=== PATIENT | male | born 1945 | race Hispanic/Latino ===

== ENCOUNTER 2016-09-19 07:43 | Day surgery (SDC) | payer MEDICARE ==
[2016-09-19 08:52] LABS: Eosinophils % (Auto) 1.9 % (0.0-4.3); Hematocrit 32.6 % (35.5-45.6); Hemoglobin 10.5 gm/dl (11.8-15.2); Mean Corpuscular HGB Conc 32 % (32-34); Mean Corpuscular Volume 80 fl (84-94); Platelet Count 269 K/mm3 (140-440); Red Cell Distribution Width 16.1 % (13.2-15.2); White Blood Count 9.1 K/mm3 (4.5-11.0)
[2016-09-19 08:59] LABS: Mean Corpuscular Hemoglobin 26 pg (28-32)
[2016-09-19] MEDS ORDERED: ECOTRIN PO ONE (09:00)
[2016-09-19] MEDS ORDERED: PLAVIX PO ONE (09:00)
[2016-09-19] MEDS ORDERED: NACL 0.9% 500 ML 500 ML IV SCH (09:00)
[2016-09-19 09:01] LABS: INR 1.04 (0.87-1.13)
[2016-09-19 09:11] LABS: BUN/Creatinine Ratio 11.33; Calcium 9.1 mg/dL (8.4-10.2); Chloride 100.9 mmol/L (98-107); Potassium 4.2 mmol/L (3.6-5.0)
[2016-09-19] MEDS ORDERED: HEPARIN 10,000 UNITS/10 ML ONE (09:15)
[2016-09-19] MEDS ORDERED: HEPARIN/NS 5000 UNIT/500ML(CATH LAB) 1,000 ML IR ONE (09:15)
[2016-09-19] MEDS ORDERED: XYLOCAINE 2% INFILTRATI ONE ×2 (09:16→10:17)
[2016-09-19] MEDS ORDERED: VERSED ONE (09:16)
[2016-09-19] MEDS ORDERED: HEPARIN/NS 5000 UNIT/500ML(CATH LAB) 500 ML IR ONE ×2 (09:21→10:49)
[2016-09-19] MEDS ORDERED: NITROGLYCERIN SYRINGE 0 ML ONE (09:26)
[2016-09-19] MEDS: SUBLIMAZE ONE ×2 (10:13→10:18)
--- NOTE | 2016-09-19 13:20 | Cardiac Catherization Report ---
CARDIAC CATHETERIZATION REASON FOR PROCEDURE: Coronary artery disease, progressive shortness of breath. PROCEDURE: The patient was prepped and draped in a sterile fashion after informed consent. The right femoral artery and vein were both entered using the Seldinger technique. A 6-Amharic sheath was placed in the artery and an 8 Amharic sheath in the vein. Windsor-Chase catheterization was then performed, with the Windsor-Chase catheter and advanced to the pulmonary artery position. A pigtail catheter was advanced into the left ventricle. Cardiac output was measured using the thermodilution method. Pressures were obtained in the right heart including the pulmonary artery wedge, pulmonary artery pressures, right ventricular pressures, and right atrial pressures. The Windsor-Chase catheter was then withdrawn. Left ventricular end-diastolic pressure was measured, following which left ventricular angiography was performed. Following left ventricular angiography, the pigtail catheter was withdrawn across the aortic valve and transaortic pressures measured. The pigtail catheter was then exchanged for a #4 left Glenys catheter, which was used for left coronary angiography. Following this, a right Judkin's was used for right coronary angiography. The catheters were then removed, sheath removed, and hemostasis achieved with using manual compression over the arterial site and the venous site. The procedure was well tolerated by the patient and there were no complications. FINDINGS: HEMODYNAMICS: The mean right atrial pressure was 15. Right ventricular pressure was 45/18-20. Pulmonary artery pressure was 45/25. The mean pulmonary artery wedge pressure was 20. Left ventricle end diastolic pressure was 25-30. Ascending aortic pressure was 163/69. There was no significant pressure gradient on pullback across the aortic valve. Cardiac output was 6.03 liters per minute. LEFT VENTRICULAR ANGIOGRAPHY: The left ventricle was mildly dilated. There was mild to moderate left ventricular systolic dysfunction with mild diffuse hypokinesis. The estimated fraction was 40%. CORONARY ANGIOGRAPHY: There was diffuse moderate coronary calcification. The left main coronary artery contained mild irregularities. The left anterior descending artery contained mild disease of its proximal and mid segments, most notably in the LAD system was the chronic total occlusion of a medium sized side branch of the mid diagonal branch. This side branch was then reconstituted in its distal segment by left to left collaterals. The circumflex artery was notable for a stent in its proximal segment. The stented segment was patent. Following this, there was a mid obtuse marginal branch, which was also patent with mild irregularities. Following the mid obtuse marginal, the AV groove circumflex was completely occluded with thin another prior stent. This was also a chronic total occlusion. There was reconstitution of a small terminal obtuse marginal via left to left collaterals. This chronic occlusion is unchanged from the patient's previous cardiac catheterization of 04/2016. The right coronary artery was dominant. This vessel contained diffuse mild atherosclerosis of its proximal segment. The mid segment of the right coronary artery was notable for a stent, which was deployed in 04/2016, remains patent with minimal in-stent restenosis. More distally, across the acute margin was another stent that was deployed in 04/2016. This second stent around the acute margin was widely patent with no significant restenosis. The distal right coronary artery was notable for chronic total occlusion of the terminal medium sized posterolateral branch. This was a chronic total occlusion noted on the previous angiogram. This posterolateral branch was reconstituted by right to right collaterals. CONCLUSION: 1. Moderate increase in right and left heart filling pressures, mild pulmonary hypertension. 2. Severe 3-vessel coronary artery disease. 3. Patent prior proximal circumflex artery stent. 4. Patent mid and distal right coronary artery stents. 5. Severe small vessel disease, with chronic total occlusion of the sub-branch of the mid diagonal branch, the distal circumflex terminal obtuse marginal branch, and terminal posterior left ventricular branch of the distal right coronary artery. These are not changed from prior cardiac catheterization procedure. 6. Mild to moderate left ventricular systolic dysfunction, ejection fraction 40%. RECOMMENDATION: 1. Aggressive risk factor modification. 2. Medical therapy for small branch vessel occlusions as listed above. [facility]# [id number] AYANA/MADIHA
--- NOTE | 2016-09-19 13:23 | Discharge Summary ---
Short Stay Discharge Plan Activity: advance as tolerated Weight Bearing Status: Partial Weight Bearing Diet: low fat, low cholesterol, low salt Wound: keep clean and dry Special Instructions: smoking cessation (strongly recommended), no heavy lifting (3 days), hold Metformin (48 hours only) Follow up with: MACIEJ MURRELL MD [Primary Care Provider] - 7 Days LIUDMILA BOLTON MD [Staff Physician] - 7 Days
[2016-09-19] MEDS ORDERED: NACL 0.9% 1000 ML 1,000 ML IV SCH (14:00)
[2016-09-19 15:19] VITALS: BP 151/75
== END 2016-09-19 16:01 | disposition home or self-care (01) ==
LOC: OPU 07:43
PROVIDERS: ATTEND Internal Medicine Cardiovascular Disease
DX: I25.10 Atherosclerotic heart disease of native coronary artery without angina pectoris (principal); I25.82 Chronic total occlusion of coronary artery; I10 Essential (primary) hypertension; M19.90 Unspecified osteoarthritis, unspecified site; J44.9 Chronic obstructive pulmonary disease, unspecified; E11.9 Type 2 diabetes mellitus without complications; F17.210 Nicotine dependence, cigarettes, uncomplicated; Z72.89 Other problems related to lifestyle; Z79.899 Other long term (current) drug therapy; Z79.4 Long term (current) use of insulin; Z79.01 Long term (current) use of anticoagulants; Z82.49 Family history of ischemic heart disease and other diseases of the circulatory system
CPT/HCPCS: 36415; 80048; 85025; 85610; 85730; 93005; 93010; 93460; C1894; J1644; J2250; J3010; J7040; Q9967

== ENCOUNTER 2017-04-04 14:44 | Emergency (ER) | payer MEDICARE ==
[2017-04-04 16:15] VITALS: BP 123/59
[2017-04-04 16:53] LABS: Bacteria,Urine 1+ /HPF (Negative); Bilirubin,Urine NEG (Negative); Blood,Urine NEG (Negative); Ketones,Urine NEG (Negative); Leukocyte Esterase,Urine NEG (Negative); Nitrite,Urine NEG (Negative); Protein,Urine <15 mg/dL mg/dL (Negative); Urobilinogen,Urine < 2.0 mg/dL (<2.0)
--- NOTE | 2017-04-04 17:08 | Emergency Department Report ---
ED Dizziness [facility] - General Chief Complaint: Dizziness Stated Complaint: SYNCOPE Time Seen by Provider: 04/04/17 16:50 Source: patient, EMS Mode of arrival: Ambulatory Limitations: No Limitations - History of Present Illness Initial Comments: Patient brought in by EMS, was at [facility], and he reports that the cashier checker thought he was stumbling, called EMS, he says he was not. He was here Friday and was diagnosed with a "bleed", and he was "tired of waiting" and got up and went home. He says that he will walk out again if he has to again. MD Complaint: dizziness Onset/Timin -: hour(s) Timing: gradual onset Description: off-balance History of Same: Yes History of Trauma: No Severity: mild Improves With: nothing Worsens With: movement, other (standing) Associated Symptoms: confusion, cough (little bit), shortness of breath, weakness. denies: chest pain, fever/chills, loss of appetite, malaise, rash, syncope - Related Data Home Medications Medication Instructions Recorded Confirmed Last Taken Insulin Regular, Human [HumuLIN R] 10 units SQ TIDAC #0 05/06/16 03/28/1709/16 7 units Metoprolol Succinate 25 mg PO DAILY 05/06/16 03/28/17 09/18/16 25mg Gabapentin 300 mg PO BID 09/19/16 03/28/17 09/18/16 300mg Atorvastatin Calcium [Lipitor] 10 mg PO QDAY 03/28/17 03/28/17 Unknown Glimepiride [Amaryl] 4 mg PO QAM 03/28/17 03/28/17 Unknown Metformin HCl [Metformin HCl ER] 500 mg PO BIDWM 03/28/17 03/28/17 Unknown Metoprolol Xl [Metoprolol 25 mg PO QDAY 03/28/17 03/28/17 Unknown SUCCINATE ER TAB] Previous Rx's Medication Instructions Recorded Last Taken Type amLODIPine [Norvasc] 10 mg PO QDAY #30 tablet 05/07/16 09/18/16 Rx 10mg Ondansetron [Zofran Odt] 4 mg PO Q8HR #20 tab.rapdis 04/04/17 Unknown Rx Allergies Allergy/AdvReac Type Severity Reaction Status Date / Time Sulfa (Sulfonamide Allergy Rash Verified 05/10/13 17:10 Antibiotics) ED Review of Systems ROS: Stated complaint: SYNCOPE Other details as noted in HPI Comment: All other systems reviewed and negative Constitutional: see HPI, weakness Eyes: as per HPI. denies: eye discharge, vision change ENT: denies: ear pain, throat pain Respiratory: cough, shortness of breath (per his usual), SOB with exertion. denies: wheezing Cardiovascular: denies: chest pain, palpitations Endocrine: no symptoms reported Gastrointestinal: nausea, vomiting (yesterday), diarrhea (has Crohn's disease), other (had blood in stool yesterday). denies: abdominal pain Genitourinary: denies: urgency, dysuria Musculoskeletal: denies: back pain, joint swelling, arthralgia Skin: denies: rash, lesions Neurological: denies: headache, weakness, paresthesias Psychiatric: denies: anxiety, depression Hematological/Lymphatic: denies: easy bleeding, easy bruising ED Past Medical Hx - Past Medical History Previous Medical History?: Yes Hx Hypertension: Yes Hx CVA: Yes Hx Heart Attack/AMI: Yes (x 5) Hx Congestive Heart Failure: No Hx Diabetes: Yes Hx Deep Vein Thrombosis: No Hx Pulmonary Embolism: No Hx Arthritis: Yes Hx Seizures: No Hx Asthma: No Hx COPD: No Hx Tuberculosis: No Hx Dementia: No Hx HIV: No Additional medical history: crohns, - Surgical History Hx Coronary Stent: Yes (x 6) Hx Pacemaker: No Hx Internal Defibrillator: No Additional Surgical History: angioplasty x 6 - Social History Smoking Status: Current Every Day Smoker Substance Use Type: Alcohol - Medications Home Medications: Home Medications Medication Instructions Recorded Confirmed Last Taken Type Insulin Regular, Human [HumuLIN R] 10 units SQ TIDAC #0 05/06/16 03/28/1709/16 History 7 units Metoprolol Succinate 25 mg PO DAILY 05/06/16 03/28/17 09/18/16 History 25mg amLODIPine [Norvasc] 10 mg PO QDAY #30 tablet 05/07/16 03/28/17 09/18/16 Rx 10mg Gabapentin 300 mg PO BID 09/19/16 03/28/17 09/18/16 History 300mg Atorvastatin Calcium [Lipitor] 10 mg PO QDAY 03/28/17 03/28/17 Unknown History Glimepiride [Amaryl] 4 mg PO QAM 03/28/17 03/28/17 Unknown History Metformin HCl [Metformin HCl ER] 500 mg PO BIDWM 03/28/17 03/28/17 Unknown History Metoprolol Xl [Metoprolol 25 mg PO QDAY 03/28/17 03/28/17 Unknown History SUCCINATE ER TAB] Ondansetron [Zofran Odt] 4 mg PO Q8HR #20 tab.rapdis 04/04/17 Unknown Rx ED Physical Exam - General Limitations: No Limitations General appearance: alert, in no apparent distress - Head Head exam: Present: atraumatic, normocephalic - Eye Eye exam: Present: normal appearance, PERRL, EOMI - ENT ENT exam: Present: mucous membranes moist - Neck Neck exam: Present: normal inspection - Respiratory Respiratory exam: Present: normal lung sounds bilaterally. Absent: respiratory distress - Cardiovascular Cardiovascular Exam: Present: regular rate, normal rhythm. Absent: systolic murmur, diastolic murmur, rubs, gallop - GI/Abdominal GI/Abdominal exam: Present: soft, tenderness (mild), normal bowel sounds - Rectal Rectal exam: Present: deferred - Extremities Exam Extremities exam: Present: normal inspection - Back Exam Back exam: Present: normal inspection - Neurological Exam Neurological exam: Present: alert, oriented X3 - Psychiatric Psychiatric exam: Present: normal affect, normal mood - Skin Skin exam: Present: warm, dry, intact, normal color. Absent: rash ED Course Vital Signs 04/04/17 16:12 Temperature 97.7 F Pulse Rate 80 Respiratory 18 Rate Blood Pressure 123/59 O2 Sat by Pulse 100 Oximetry - Reevaluation(s) Reevaluation #1: 04/04/17 18:20 Patient refuses to be admitted. He did this a few days ago as well. He would like to go home, and I told him that he needs to follow up with his doctor. He says he probably won't do that. I advised him that if he continues to feel dizzy than he can come back and we would be happy to admit him to the hospital. His hemoccult was negative. Will give fluids and discharge home. Also will give some Zofran. ED Medical Decision Making - Lab Data Result diagrams: 04/04/17 16:33 04/04/17 16:33 - EKG Data -: EKG Interpreted by Me EKG shows normal: sinus rhythm, axis (Left axis), intervals, QRS complexes, ST- T waves Rate: bradycardia - EKG Data When compared to previous EKG there are: no significant change Interpretation: no acute changes - Medical Decision Making I reviewed the results with the patient. Explained to him that it is essential that he see his PMD since he refuses to be admitted. I explained that he could have an occult GI bleed even though the testing today was negative and his hemoglobin was unchanged from previous. Critical Care Time: No Critical care attestation.: If time is entered above; I have spent that time in minutes in the direct care of this critically ill patient, excluding procedure time. ED Disposition Clinical Impression: Dizziness Anemia Qualifiers: Anemia type: other cause Other causes of anemia: other cause, not classified Qualified Code(s): D64.89 - Other specified anemias Disposition: DC-01 TO HOME OR SELFCARE Is pt being admited?: No Does the pt Need Aspirin: No Condition: Stable Instructions: Anemia (ED) Additional Instructions: Rest, fluids, follow up with your doctor, return as needed, watch for worsening , new symptoms. Call 911 if you think you're having a life threatening emergency. Prescriptions: Ondansetron [Zofran Odt] 4 mg PO Q8HR #20 tab.[email or web address] Referrals: PRIMARY CARE, [Primary Care Provider] - 3-5 Days
[2017-04-04 17:10] LABS: Hemoglobin 9.7 gm/dl (11.8-15.2); Mean Corpuscular HGB Conc 33 % (32-34); Mean Corpuscular Hemoglobin 28 pg (28-32); Mean Corpuscular Volume 83 fl (84-94); Platelet Count 250 K/mm3 (140-440); Red Blood Count 3.49 M/mm3 (3.65-5.03); Red Cell Distribution Width 17.6 % (13.2-15.2); White Blood Count 6.9 K/mm3 (4.5-11.0)
[2017-04-04 17:18] LABS: Calcium 8.5 mg/dL (8.4-10.2)
[2017-04-04 17:19] LABS: Chloride 100.1 mmol/L (98-107); Potassium 4.9 mmol/L (3.6-5.0)
[2017-04-04] MEDS ORDERED: NACL 0.9% 1000 ML 1,000 ML IV ONE (18:08)
== END 2017-04-04 18:54 | disposition home or self-care (01) ==
LOC: ED 14:44
DX: D64.89 Other specified anemias (principal); R42 Dizziness and giddiness; I10 Essential (primary) hypertension; I25.2 Old myocardial infarction; E11.9 Type 2 diabetes mellitus without complications; F17.200 Nicotine dependence, unspecified, uncomplicated
CPT/HCPCS: 36415; 80048; 81001; 85027; 87086; 93005; 93010; 99284; J7030

== ENCOUNTER 2017-04-20 16:53 | Emergency (ER) | payer OTHER, MEDICARE ==
[2017-04-20 17:43] VITALS: BP 158/128
== END 2017-04-20 21:00 | disposition left against medical advice (07) ==
LOC: ED 16:53
DX: M79.641 Pain in right hand (principal); Z53.21 Procedure and treatment not carried out due to patient leaving prior to being seen by health care provider

== ENCOUNTER 2017-10-06 17:10 | Emergency (ER) | payer MEDICARE ==
[2017-10-06 17:27] VITALS: BP 168/86
[2017-10-06] MEDS ORDERED: ASPIRIN PO ONE (17:27)
[2017-10-06 17:49] LABS: Basophils # (Auto) 0.1 K/mm3 (0.0-0.1); Basophils % (Auto) 1.4 % (0.0-1.8); Eosinophils # (Auto) 0.1 K/mm3 (0.0-0.4); Eosinophils % (Auto) 1.2 % (0.0-4.3); Hemoglobin 11.4 gm/dl (11.8-15.2); Lymphocytes # (Auto) 1.4 K/mm3 (1.2-5.4); Lymphocytes % (Auto) 17.7 % (13.4-35.0); Mean Corpuscular HGB Conc 33 % (32-34); Mean Corpuscular Volume 79 fl (84-94); Monocytes # (Auto) 0.5 K/mm3 (0.0-0.8); Platelet Count 273 K/mm3 (140-440); Red Blood Count 4.45 M/mm3 (3.65-5.03); Red Cell Distribution Width 17.5 % (13.2-15.2)
[2017-10-06 17:51] LABS: Mean Corpuscular Hemoglobin 26 pg (28-32)
[2017-10-06 18:11] LABS: BUN/Creatinine Ratio 7; Blood Urea Nitrogen 8 mg/dL (9-20); Calcium 8.6 mg/dL (8.4-10.2); Hemolysis Index 37
== END 2017-10-06 17:31 | disposition left against medical advice (07) ==
LOC: ED 17:10
DX: R06.02 Shortness of breath (principal); Z53.21 Procedure and treatment not carried out due to patient leaving prior to being seen by health care provider
CPT/HCPCS: 36415; 80048; 83880; 84484; 85025; 93005; 93010

== ENCOUNTER 2017-12-19 16:25 | Inpatient (IN) | payer MEDICARE ==
[2017-12-19] MEDS ORDERED: ZOFRAN IV ONE (17:37)
[2017-12-19] MEDS ORDERED: MORPHINE IV ONE (17:37)
[2017-12-19] MEDS ORDERED: NITRO-BID 2% TP ONE (17:37)
[2017-12-19 17:59] LABS: BUN/Creatinine Ratio 9; Blood Urea Nitrogen 10 mg/dL (9-20); Calcium 8.5 mg/dL (8.4-10.2); Hemolysis Index 3
[2017-12-19 18:03] LABS: Basophils # (Auto) 0.1 K/mm3 (0.0-0.1); Basophils % (Auto) 0.6 % (0.0-1.8); Eosinophils # (Auto) 0.1 K/mm3 (0.0-0.4); Eosinophils % (Auto) 1.2 % (0.0-4.3); Hematocrit 32.8 % (35.5-45.6); Hemoglobin 10.8 gm/dl (11.8-15.2); Lymphocytes # (Auto) 0.8 K/mm3 (1.2-5.4); Lymphocytes % (Auto) 8.9 % (13.4-35.0); Mean Corpuscular HGB Conc 33 % (32-34); Mean Corpuscular Hemoglobin 26 pg (28-32); Mean Corpuscular Volume 80 fl (84-94); Monocytes # (Auto) 0.5 K/mm3 (0.0-0.8); Monocytes % (Auto) 5.7 % (0.0-7.3); Platelet Count 209 K/mm3 (140-440); Red Blood Count 4.13 M/mm3 (3.65-5.03); Red Cell Distribution Width 18.7 % (13.2-15.2)
[2017-12-19 18:10] LABS: INR 0.97 (0.87-1.13)
[2017-12-19 18:16] LABS: Alanine Aminotransferase 11 units/L (7-56); Albumin 3.4 g/dL (3.9-5)
[2017-12-19 18:19] LABS: Bilirubin,Direct < 0.2 mg/dL (0-0.2)
--- NOTE | 2017-12-19 18:33 | XRay Report ---
FINAL REPORT EXAM: XR CHEST 1V AP HISTORY: cp TECHNIQUE: Chest single AP PRIORS: None. FINDINGS: There is patchy opacity within the right lower lobe distribution. Cardiac and mediastinal contours are unremarkable. Pulmonary vasculature is within normal limits. No pleural effusion identified. IMPRESSION: Right lower lobe infiltrate suspicious for pneumonia
[2017-12-19] MEDS ORDERED: K-DUR PO ONE (19:16)
[2017-12-19] MEDS ORDERED: LEVAQUIN 750MG/150ML 750 MG/150 ML BAG IV ONE (19:19)
[2017-12-19] MEDS ORDERED: LASIX IV ONE (19:20)
--- NOTE | 2017-12-19 19:21 | Emergency Department Report ---
ED General Adult HPI - General Chief complaint: Chest Pain Stated complaint: POSS STEMI Time Seen by Provider: 12/19/17 17:21 Source: patient, EMS Mode of arrival: Stretcher Limitations: Other - History of Present Illness Severity scale (0 -10): 0 - Related Data Home Medications Medication Instructions Recorded Confirmed Last Taken Insulin Regular, Human [HumuLIN R] 10 units SQ TIDAC #0 05/06/16 03/28/17 7 units Metoprolol Succinate 25 mg PO DAILY 05/06/16 03/28/17 09/18/16 25mg Gabapentin 300 mg PO BID 09/19/16 03/28/17 09/18/16 300mg Atorvastatin Calcium [Lipitor] 10 mg PO QDAY 03/28/17 03/28/17 Unknown Glimepiride [Amaryl] 4 mg PO QAM 03/28/17 03/28/17 Unknown Metformin HCl [Metformin HCl ER] 500 mg PO BIDWM 03/28/17 03/28/17 Unknown Metoprolol Xl [Metoprolol 25 mg PO QDAY 03/28/17 03/28/17 Unknown SUCCINATE ER TAB] Previous Rx's Medication Instructions Recorded Last Taken Type amLODIPine [Norvasc] 10 mg PO QDAY #30 tablet 05/07/16 09/18/16 Rx 10mg Ondansetron [Zofran Odt] 4 mg PO Q8HR #20 tab.rapdis 04/04/17 Unknown Rx Allergies Allergy/AdvReac Type Severity Reaction Status Date / Time Sulfa (Sulfonamide Allergy Rash Verified 05/10/13 17:10 Antibiotics) ED Review of Systems ROS: Stated complaint: POSS STEMI Other details as noted in HPI ED Past Medical Hx - Past Medical History Previous Medical History?: Yes Hx Hypertension: Yes Hx CVA: Yes (x2 bilateral weakness,walks with walker) Hx Heart Attack/AMI: Yes (x 5) Hx Congestive Heart Failure: No Hx Diabetes: Yes Hx Deep Vein Thrombosis: No Hx Pulmonary Embolism: No Hx Arthritis: Yes Hx Seizures: No Hx Asthma: No Hx COPD: No Hx Tuberculosis: No Hx Dementia: No Hx HIV: No Additional medical history: crohns, - Surgical History Hx Coronary Stent: Yes (x 6) Hx Pacemaker: No Hx Internal Defibrillator: No Additional Surgical History: angioplasty x 6 - Social History Smoking Status: Current Every Day Smoker Substance Use Type: None - Medications Home Medications: Home Medications Medication Instructions Recorded Confirmed Last Taken Type Insulin Regular, Human [HumuLIN R] 10 units SQ TIDAC #0 05/06/16 03/28/17 History 7 units Metoprolol Succinate 25 mg PO DAILY 05/06/16 03/28/17 09/18/16 History 25mg amLODIPine [Norvasc] 10 mg PO QDAY #30 tablet 05/07/16 03/28/17 09/18/16 Rx 10mg Gabapentin 300 mg PO BID 09/19/16 03/28/17 09/18/16 History 300mg Atorvastatin Calcium [Lipitor] 10 mg PO QDAY 03/28/17 03/28/17 Unknown History Glimepiride [Amaryl] 4 mg PO QAM 03/28/17 03/28/17 Unknown History Metformin HCl [Metformin HCl ER] 500 mg PO BIDWM 03/28/17 03/28/17 Unknown History Metoprolol Xl [Metoprolol 25 mg PO QDAY 03/28/17 03/28/17 Unknown History SUCCINATE ER TAB] Ondansetron [Zofran Odt] 4 mg PO Q8HR #20 tab.rapdis 04/04/17 Unknown Rx ED Physical Exam - General Limitations: Other ED Course Vital Signs 12/19/17 16:36 Temperature 97.5 F L Pulse Rate 105 H Respiratory 35 H Rate Blood Pressure 151/95 O2 Sat by Pulse 95 Oximetry ED Medical Decision Making - Lab Data Result diagrams: 12/19/17 17:35 12/19/17 17:35 Critical care attestation.: If time is entered above; I have spent that time in minutes in the direct care of this critically ill patient, excluding procedure time. ED Disposition Condition: Stable Referrals: PRIMARY CARE, [Primary Care Provider] - 3-5 Days
--- NOTE | 2017-12-19 19:28 | Emergency Department Report ---
ED Chest Pain HPI - General Chief Complaint: Chest Pain Stated Complaint: POSS STEMI Time Seen by Provider: 12/19/17 17:21 Source: patient, EMS Mode of arrival: Stretcher Limitations: Other - History of Present Illness Initial Comments: This is a 72 year old man who signed out from [facility] 2 days ago. He states that he was told he was having a myocardial infarction but nonetheless left AMA. He called the ambulance for recurrent chest pain and shortness of breath. The time of arrival he stated his chest pain had improved. His difficulty in breathing had improved as well. He had been given nitroglycerin and aspirin prior to arrival but refused other medications. The patient's last cardiac catheterization was on 09/21/2016. He did not have a cardiac cath at [facility]. Dr. Cohn recommended medical management at that time. The patient had multiple patent stents and chronic occlusions. Review of the patient's medical records does indicate that he has a chronic right bundle branch block. MD Complaint: chest pain -: Gradual Onset: during rest Pain Location: substernal Pain Radiation: none Severity: moderate Severity scale (0 -10): 0 Quality: tightness Consistency: intermittent, now resolved Improves With: nitroglycerin (appears to have improved with nitroglycerin) Context: other ("recent heart attack") re: dyspnea. denies: diaphoresis (sweating) Other Symptoms: denies: cough, fever, syncope Treatments Prior to Arrival: none - Related Data Home Medications Medication Instructions Recorded Confirmed Last Taken Insulin Regular, Human [HumuLIN R] 10 units SQ TIDAC #0 05/06/16 03/28/17 7 units Metoprolol Succinate 25 mg PO DAILY 05/06/16 03/28/17 09/18/16 25mg Gabapentin 300 mg PO BID 09/19/16 03/28/17 09/18/16 300mg Atorvastatin Calcium [Lipitor] 10 mg PO QDAY 03/28/17 03/28/17 Unknown Glimepiride [Amaryl] 4 mg PO QAM 03/28/17 03/28/17 Unknown Metformin HCl [Metformin HCl ER] 500 mg PO BIDWM 03/28/17 03/28/17 Unknown Metoprolol Xl [Metoprolol 25 mg PO QDAY 03/28/17 03/28/17 Unknown SUCCINATE ER TAB] Previous Rx's Medication Instructions Recorded Last Taken Type amLODIPine [Norvasc] 10 mg PO QDAY #30 tablet 05/07/16 09/18/16 Rx 10mg Ondansetron [Zofran Odt] 4 mg PO Q8HR #20 tab.rapdis 04/04/17 Unknown Rx Allergies Allergy/AdvReac Type Severity Reaction Status Date / Time Sulfa (Sulfonamide Allergy Rash Verified 05/10/13 17:10 Antibiotics) Heart Score - HEART Score History: Highly suspicious EKG: Non-specific Age: > 65 Risk factors: > 3 risk factors or hx of atherosclerotic disease Troponin: < normal limit HEART Score: 7 - Critical Actions Critical Actions: 4-6 pts:12-16.6% risk of adverse cardiac event. Should be admitted ED Review of Systems ROS: Stated complaint: POSS STEMI Other details as noted in HPI Constitutional: denies: chills, fever Eyes: denies: eye pain, eye discharge, vision change ENT: denies: ear pain, throat pain Respiratory: shortness of breath. denies: cough, wheezing Cardiovascular: chest pain. denies: palpitations Endocrine: no symptoms reported Gastrointestinal: denies: abdominal pain, nausea, diarrhea Genitourinary: denies: urgency, dysuria Musculoskeletal: denies: back pain, joint swelling, arthralgia Skin: denies: rash, lesions Neurological: denies: headache, weakness, paresthesias Psychiatric: denies: anxiety, depression Hematological/Lymphatic: denies: easy bleeding, easy bruising ED Past Medical Hx - Past Medical History Previous Medical History?: Yes Hx Hypertension: Yes Hx CVA: Yes (x2 bilateral weakness,walks with walker) Hx Heart Attack/AMI: Yes (x 5) Hx Congestive Heart Failure: No Hx Diabetes: Yes Hx Deep Vein Thrombosis: No Hx Pulmonary Embolism: No Hx Arthritis: Yes Hx Seizures: No Hx Asthma: No Hx COPD: No Hx Tuberculosis: No Hx Dementia: No Hx HIV: No Additional medical history: crohns, - Surgical History Hx Coronary Stent: Yes (x 6) Hx Pacemaker: No Hx Internal Defibrillator: No Additional Surgical History: angioplasty x 6 - Social History Smoking Status: Current Every Day Smoker Substance Use Type: None - Medications Home Medications: Home Medications Medication Instructions Recorded Confirmed Last Taken Type Insulin Regular, Human [HumuLIN R] 10 units SQ TIDAC #0 05/06/16 03/28/17 History 7 units Metoprolol Succinate 25 mg PO DAILY 05/06/16 03/28/17 09/18/16 History 25mg amLODIPine [Norvasc] 10 mg PO QDAY #30 tablet 05/07/16 03/28/17 09/18/16 Rx 10mg Gabapentin 300 mg PO BID 09/19/16 03/28/17 09/18/16 History 300mg Atorvastatin Calcium [Lipitor] 10 mg PO QDAY 03/28/17 03/28/17 Unknown History Glimepiride [Amaryl] 4 mg PO QAM 03/28/17 03/28/17 Unknown History Metformin HCl [Metformin HCl ER] 500 mg PO BIDWM 03/28/17 03/28/17 Unknown History Metoprolol Xl [Metoprolol 25 mg PO QDAY 03/28/17 03/28/17 Unknown History SUCCINATE ER TAB] Ondansetron [Zofran Odt] 4 mg PO Q8HR #20 tab.rapdis 04/04/17 Unknown Rx ED Physical Exam - General Limitations: No Limitations General appearance: alert, in no apparent distress - Head Head exam: Present: atraumatic, normocephalic - Eye Eye exam: Present: normal appearance, PERRL, EOMI. Absent: scleral icterus - ENT ENT exam: Present: mucous membranes moist - Neck Neck exam: Present: normal inspection - Respiratory Respiratory exam: Present: normal lung sounds bilaterally. Absent: respiratory distress - Cardiovascular Cardiovascular Exam: Present: regular rate, normal rhythm. Absent: systolic murmur, diastolic murmur, rubs, gallop - GI/Abdominal GI/Abdominal exam: Present: soft, normal bowel sounds. Absent: distended, tenderness, guarding, rebound, rigid - Rectal Rectal exam: Present: deferred - Extremities Exam Extremities exam: Present: normal inspection, normal capillary refill. Absent: tenderness, calf tenderness - Back Exam Back exam: Present: normal inspection - Neurological Exam Neurological exam: Present: alert, oriented X3, CN II-XII intact. Absent: motor sensory deficit - Psychiatric Psychiatric exam: Present: anxious, flat affect - Skin Skin exam: Present: warm, dry, intact, normal color. Absent: rash ED Course Vital Signs 12/19/17 16:36 Temperature 97.5 F L Pulse Rate 105 H Respiratory 35 H Rate Blood Pressure 151/95 O2 Sat by Pulse 95 Oximetry - Reevaluation(s) Reevaluation #1: Patient was poorly cooperative with medical care. He stated that he wanted to leave. However for the time being he appears to be staying. His chief complaint on arrival was that he was hungry and wanted a meal. His dyspnea had improved. He no longer required CPAP. His pulse oximetry was happily maintained even on room air. Patient's chest x-ray showed to be diffuse increased markings I suspect this may be consistent with congestive heart failure. However the radiologist states that it is more predominant in the right lower lobe. Therefore blood cultures and lactic acid level was obtained and the patient was given Levaquin. He was also given oral potassium and a small dose of Lasix. I do not think he should have a fluid bolus as I believe he is in congestive heart failure and is not likely to be septic. 12/19/17 19:26 Reevaluation #2: Dr. Swan is aware of the above considerations. The patient will be admitted to hospital service for further care and evaluation. He is in stable condition. First troponin was negative. 12/19/17 19:28 EILEEN score - Eileen Score Age > 65: (1) Yes Aspirin use within the Past 7 Days: (1) Yes 3 or more CAD Risk Factors: (1) Yes 2 or more Angina events in past 24 hrs: (1) Yes Known CAD with more than 50% Stenosis: (1) Yes Elevated Cardiac Markers: (0) No ST Deviation Greater than 0.5mm: (0) No EILEEN Score: 5 ED Medical Decision Making - Lab Data Result diagrams: 12/19/17 17:35 12/19/17 17:35 Laboratory Results - last 24 hr 12/19/17 12/19/17 12/19/17 17:35 17:35 17:45 WBC 9.5 RBC 4.13 Hgb 10.8 L Hct 32.8 L MCV 80 L MCH 26 L MCHC 33 RDW 18.7 H Plt Count 209 Lymph % (Auto) 8.9 L [place] % (Auto) 5.7 Eos % (Auto) 1.2 Baso % (Auto) 0.6 Lymph # 0.8 L [place] # 0.5 Eos # 0.1 Baso # 0.1 Seg Neutrophils % 83.6 H Seg Neutrophils # 7.9 H PT 13.4 INR 0.97 APTT 29.0 Sodium 133 L Potassium 3.3 L Chloride 95.9 L Carbon Dioxide 24 Anion Gap 16 BUN 10 Creatinine 1.1 Estimated GFR > 60 BUN/Creatinine Ratio 9 Glucose 252 H Calcium 8.5 Total Bilirubin Direct Bilirubin Indirect Bilirubin AST ALT Alkaline Phosphatase Troponin T 0.019 NT-Pro-B Natriuret Pep Total Protein Albumin Albumin/Globulin Ratio 12/19/17 12/19/17 17:45 17:45 WBC RBC Hgb Hct MCV MCH MCHC RDW Plt Count Lymph % (Auto) [place] % (Auto) Eos % (Auto) Baso % (Auto) Lymph # [place] # Eos # Baso # Seg Neutrophils % Seg Neutrophils # PT INR APTT Sodium Potassium Chloride Carbon Dioxide Anion Gap BUN Creatinine Estimated GFR BUN/Creatinine Ratio Glucose Calcium Total Bilirubin 0.40 Direct Bilirubin < 0.2 Indirect Bilirubin 0.2 AST 15 ALT 11 Alkaline Phosphatase 106 Troponin T NT-Pro-B Natriuret Pep 62337 H Total Protein 5.9 L Albumin 3.4 L Albumin/Globulin Ratio 1.4 - EKG Data -: EKG Interpreted by Me EKG shows normal: sinus rhythm, axis, intervals, ST-T waves - EKG Data Interpretation: other (right bundle-branch block one PVC secondary repolarization abnormalities not impressive for acute ischemia compared with prior EKG although there is minimal anterior ST depression) - Radiology Data Radiology results: report reviewed (see above for radiologist's questions right lower lobe pneumonia) interpreted by me: I suspect I suspect the patient's chest x-ray may be indicative of congestive heart failure/asymmetrical and early pulmonary edema. Critical care attestation.: If time is entered above; I have spent that time in minutes in the direct care of this critically ill patient, excluding procedure time. ED Disposition Clinical Impression: Hyperglycemia due to type 1 diabetes mellitus, Hypokalemia, Pulmonary infiltrate Chest pain Qualifiers: Chest pain type: unspecified Qualified Code(s): R07.9 - Chest pain, unspecified Coronary artery disease Qualifiers: Coronary Disease-Associated Artery/Lesion type: [place] artery [place] vs. transplanted heart: [place] heart Associated angina: with unstable angina Qualified Code(s): I25.110 - Atherosclerotic heart disease of [place] coronary artery with unstable angina pectoris Congestive heart failure Qualifiers: Heart failure type: combined systolic and diastolic Heart failure chronicity: acute on chronic Qualified Code(s): I50.43 - Acute on chronic combined systolic (congestive) and diastolic (congestive) heart failure Cardiomyopathy Qualifiers: Cardiomyopathy type: unspecified Qualified Code(s): I42.9 - Cardiomyopathy, unspecified Disposition: 09 OP ADMIT IP TO THIS HOSP Is pt being admited?: Yes Does the pt Need Aspirin: Yes Condition: Stable Instructions: Chest Pain (ED), Diabetes Mellitus Type 2 in Adults (ED) Referrals: PRIMARY CARE, [Primary Care Provider] - 3-5 Days Time of Disposition: 19:36
--- NOTE | 2017-12-19 19:31 | History and Physical Report ---
History of Present Illness Chief complaint: Im having chest pain History of present illness: 72 YO Male with HTN, MN, CVA, DM, OA, Crohns Disease, CAD S/P Stent Placement, Nicotine Dependence presents to ED for evaluation. Pt states that he has experienced pain in his chest for the past 4 days with worsening symptoms over the past 1 day. Pt initially presented to [facility] for care and evaluation, and was diagnosed with Acute MN, but signed out AMA 2 days ago. Pt states that his pain is 6/10, crushing in nature, intermittent, improved with nitro, not worsened with exertion. Pt denies fever, chills, palpitations, trauma , productive cough, BRBPR, unintentional weight loss, night sweats, or bone pain. Pt seen and evaluated in ED and found to have symptoms consistent with ACS , CHF, as well as Pneumonia. Pt admitted to telemetry and initiated on Chest Pain Protocol, as well as Pneumonia protocol. Cardiology consulted in ED. Past History Past Medical History: arthritis, CAD, diabetes, hypertension, stroke, other ( Nicotine Dependence) Past Surgical History: Other (Cardiac Stent Placement. ) Social history: , smoking. denies: alcohol abuse, prescription drug abuse, IV drug use Family history: diabetes, hypertension Medications and Allergies Allergies Allergy/AdvReac Type Severity Reaction Status Date / Time Sulfa (Sulfonamide Allergy Rash Verified 05/10/13 17:10 Antibiotics) Home Medications Medication Instructions Recorded Confirmed Last Taken Type Insulin Regular, Human [HumuLIN R] 10 units SQ TIDAC #0 05/06/16 03/28/17 History 7 units Metoprolol Succinate 25 mg PO DAILY 05/06/16 03/28/17 09/18/16 History 25mg amLODIPine [Norvasc] 10 mg PO QDAY #30 tablet 05/07/16 03/28/17 09/18/16 Rx 10mg Gabapentin 300 mg PO BID 09/19/16 03/28/17 09/18/16 History 300mg Atorvastatin Calcium [Lipitor] 10 mg PO QDAY 03/28/17 03/28/17 Unknown History Glimepiride [Amaryl] 4 mg PO QAM 03/28/17 03/28/17 Unknown History Metformin HCl [Metformin HCl ER] 500 mg PO BIDWM 03/28/17 03/28/17 Unknown History Metoprolol Xl [Metoprolol 25 mg PO QDAY 03/28/17 03/28/17 Unknown History SUCCINATE ER TAB] Ondansetron [Zofran Odt] 4 mg PO Q8HR #20 tab.amandadis 04/04/17 Unknown Rx Active Meds: Active Medications Levofloxacin/Dextrose (Levaquin 750mg/150ml) 750 mg in 150 mls @ 100 mls/hr IV ONCE ONE; Protocol Stop: 12/19/17 20:48 Review of Systems Constitutional: no weight loss, no weight gain, no fever, no chills, no sweats Ears, nose, mouth and throat: no ear pain, no ear discharge, no tinnitis, no decreased hearing, no nose pain, no nasal congestion Cardiovascular: chest pain, no orthopnea, no rapid/irregular heart beat, no syncope, no paroxysmal nocturnal dyspnea Respiratory: no cough, no cough with sputum, no excessive sputum, no hemoptysis Gastrointestinal: no nausea, no vomiting, no diarrhea, no constipation, no change in bowel habits Genitourinary Male: no hematuria, no flank pain, no discharge, no urinary frequency, no urinary hesitancy, no incontinence Rectal: no pain, no incontinence, no bleeding Musculoskeletal: no neck pain, no shooting arm pain, no arm numbness/tingling, no low back pain, no shooting leg pain, no leg numbness/tingling Integumentary: no rash, no pruritis, no redness, no sores, no wounds Neurological: no head injury, no transient paralysis, no paralysis, no weakness , no parathesias, no tingling Psychiatric: no anxiety, no memory loss, no change in sleep habits, no sleep disturbances, no insomnia, no hypersomnia Endocrine: no cold intolerance, no heat intolerance, no polyphagia, no excessive thirst, no polydipsia Hematologic/Lymphatic: no easy bruising, no easy bleeding, no lymphadenopathy, no lymphedema Allergic/Immunologic: no urticaria, no allergic rhinitis, no wheezing, no persistent infections, no anaphylaxis, no angioedema Exam - Constitutional Vitals: Temp Pulse Resp BP Pulse Ox 97.5 F L 105 H 35 H 151/95 95 12/19/17 16:36 12/19/17 16:36 12/19/17 16:36 12/19/17 16:36 12/19/17 16:36 General appearance: Present: mild distress - EENT Eyes: Present: PERRL ENT: hearing intact, clear oral mucosa - Neck Neck: Present: supple, normal ROM - Respiratory Respiratory effort: normal Respiratory: bilateral: CTA - Cardiovascular Heart Sounds: Present: S1 & S2. Absent: rub, click - Extremities Extremities: pulses symmetrical, No edema Peripheral Pulses: within normal limits - Abdominal General gastrointestinal: Present: soft, non-tender, non-distended, normal bowel sounds Male genitourinary: Present: normal - Integumentary Integumentary: Present: clear, warm, dry - Musculoskeletal Musculoskeletal: gait normal, strength equal bilaterally - Psychiatric Psychiatric: appropriate mood/affect, intact judgment & insight - Neurologic Neurologic: CNII-XII intact, moves all extremities Results - Labs CBC & Chem 7: 12/19/17 17:35 12/19/17 17:35 Labs: Abnormal lab results 12/19/17 12/19/17 12/19/17 Range/Units 17:35 17:35 17:45 Hgb 10.8 L (11.8-15.2) gm/dl Hct 32.8 L (35.5-45.6) % MCV 80 L (84-94) fl MCH 26 L (28-32) pg RDW 18.7 H (13.2-15.2) % Lymph % (Auto) 8.9 L (13.4-35.0) % Lymph # 0.8 L (1.2-5.4) K/mm3 Seg Neutrophils % 83.6 H (40.0-70.0) % Seg Neutrophils # 7.9 H (1.8-7.7) K/mm3 Sodium 133 L (137-145) mmol/L Potassium 3.3 L (3.6-5.0) mmol/L Chloride 95.9 L (98-107) mmol/L Glucose 252 H (75-100) mg/dL NT-Pro-B Natriuret Pep 59352 H (0-900) pg/mL Total Protein (6.3-8.2) g/dL Albumin (3.9-5) g/dL 12/19/17 Range/Units 17:45 Hgb (11.8-15.2) gm/dl Hct (35.5-45.6) % MCV (84-94) fl MCH (28-32) pg RDW (13.2-15.2) % Lymph % (Auto) (13.4-35.0) % Lymph # (1.2-5.4) K/mm3 Seg Neutrophils % (40.0-70.0) % Seg Neutrophils # (1.8-7.7) K/mm3 Sodium (137-145) mmol/L Potassium (3.6-5.0) mmol/L Chloride (98-107) mmol/L Glucose (75-100) mg/dL NT-Pro-B Natriuret Pep (0-900) pg/mL Total Protein 5.9 L (6.3-8.2) g/dL Albumin 3.4 L (3.9-5) g/dL Assessment and Plan - Patient Problems (1) Congestive heart failure Current Visit: Yes Status: Acute Qualifiers: Heart failure type: combined systolic and diastolic Heart failure chronicity: acute on chronic Qualified Code(s): I50.43 - Acute on chronic combined systolic (congestive) and diastolic (congestive) heart failure Plan to address problem: Admit to Telemetry: Strict I/O, Monitor uop q shift, supplemental oxygen, daily weight, cardiology consulted in ED, Echo, Afterload reduction, (2) Pneumonia Current Visit: Yes Status: Acute Qualifiers: Laterality: right Lung location: upper lobe of lung Plan to address problem: Pneumonia protocol: IV antibiotics, supplemental oxygen, nebulizer therapy, blood cultures, Chest X ray, pulse oximetry (3) ACS (acute coronary syndrome) Current Visit: Yes Status: Acute Plan to address problem: Admit to telemetry: serial cardiac enzymes, ekg, cardiology consulted in ED, serial cardiac enzymes, ekg, stress test, bnp, morphine, supplemental oxygen, nitro, aspirin. (4) Nicotine dependence with withdrawal Current Visit: Yes Status: Acute Qualifiers: Nicotine product type: cigarettes Qualified Code(s): F17.213 - Nicotine dependence, cigarettes, with withdrawal Plan to address problem: Smoking cessation counseling, (5) HTN (hypertension) Current Visit: Yes Status: Acute Qualifiers: Hypertension type: essential hypertension Qualified Code(s): I10 - Essential (primary) hypertension Plan to address problem: Monitor BP q shift, resume prehospital antihypertensive therapy (6) Diabetes Current Visit: Yes Status: Acute Plan to address problem: ADA diet, insulin, accu check (7) DVT prophylaxis Current Visit: Yes Status: Acute Plan to address problem: SCD to BLE while in bed
[2017-12-19] MEDS ORDERED: SODIUM CHLORIDE FLUSH SYRINGE 10 ML IV PRN ×2 (19:32)
[2017-12-19] MEDS ORDERED: NITROSTAT SL PRN (19:32)
[2017-12-19] MEDS ORDERED: BABY ASPIRIN PO STA (19:32)
[2017-12-19] MEDS ORDERED: ZOFRAN IV PRN (19:32)
[2017-12-19] MEDS ORDERED: TYLENOL PO PRN (19:32)
[2017-12-19] MEDS ORDERED: PROVENTIL IH PRN (19:32)
[2017-12-19] MEDS ORDERED: D50W (25GM) Syringe IV PRN (22:35)
--- NOTE | 2017-12-19 23:12 | Cat Scan Report ---
FINAL REPORT EXAM: CT ANGIO CHEST HISTORY: dypsnea TECHNIQUE: CT chest CT angiogram with reconstructions PRIORS: None. FINDINGS: There is no evidence of filling defect within the central pulmonary vasculature to suggest the presence of acute pulmonary embolus. No evidence of mediastinal pathologic lymph node enlargement Heart and great vessels are unremarkable. The aorta is normal in caliber. There are moderate bilateral layering pleural effusions. Visualized portion of the upper abdomen demonstrates no acute change. IMPRESSION: Bilateral pleural effusions No CT evidence for acute pulmonary embolus
[2017-12-20] MEDS: SODIUM CHLORIDE FLUSH SYRINGE 10 ML IV SCH ×3 (00:40→22:14)
[2017-12-20] MEDS: ALUM-MAG HYDROX-SIMETH 200-200-20MG/5ML PO PRN ×2 (03:39→22:12)
[2017-12-20] MEDS: HumuLIN R SUB-Q SCH ×4 (07:53→22:13)
--- NOTE | 2017-12-20 10:03 | Consultation ---
History of Present Illness Consult date: 12/20/17 Consult reason: chest pain History of present illness: 72 YO Male with h/o CAD S/P RCA PCI, htn and CHF who presented to ED with chest pain. He initially presented to [facility] for care and evaluation but signed out AMA 2 days ago. Pt states that his pain is 6/10, crushing in nature, intermittent, improved with nitro, not worsened with exertion. Pt denies fever, chills, palpitations, trauma, productive cough, BRBPR, unintentional weight loss, night sweats, or bone pain. His recent cardiac evaluation has included repeat cardiac cath in 09/2016 due to progressive exertional dyspnea which revealed patent stents in prox Circ and mid -distal RCA. EF 40%. Medical therapy for small vessel CAD including addition of Ranexa was recommended He has previously refused to consider smoking cessation. Past History Past Medical History: arthritis, CAD, diabetes, hypertension, stroke, other ( Nicotine Dependence) Past Surgical History: Other (Cardiac Stent Placement. ) Social history: , smoking. denies: alcohol abuse, prescription drug abuse, IV drug use Family history: diabetes, hypertension Medications and Allergies Allergies Allergy/AdvReac Type Severity Reaction Status Date / Time Sulfa (Sulfonamide Allergy Rash Verified 05/10/13 17:10 Antibiotics) Home Medications Medication Instructions Recorded Confirmed Last Taken Type Insulin Regular, Human [HumuLIN R] 10 units SQ TIDAC #0 05/06/16 03/28/17 History 7 units Metoprolol Succinate 25 mg PO DAILY 05/06/16 03/28/17 09/18/16 History 25mg amLODIPine [Norvasc] 10 mg PO QDAY #30 tablet 05/07/16 03/28/17 09/18/16 Rx 10mg Gabapentin 300 mg PO BID 09/19/16 03/28/17 09/18/16 History 300mg Atorvastatin Calcium [Lipitor] 10 mg PO QDAY 03/28/17 03/28/17 Unknown History Glimepiride [Amaryl] 4 mg PO QAM 03/28/17 03/28/17 Unknown History Metformin HCl [Metformin HCl ER] 500 mg PO BIDWM 03/28/17 03/28/17 Unknown History Metoprolol Xl [Metoprolol 25 mg PO QDAY 03/28/17 03/28/17 Unknown History SUCCINATE ER TAB] Ondansetron [Zofran Odt] 4 mg PO Q8HR #20 tab.rapdis 04/04/17 Unknown Rx Active Meds: Active Medications Acetaminophen (Tylenol) 650 mg PO Q4H PRN PRN Reason: Pain MILD(1-3)/Fever >100.5/MANCILLA Al Hydrox/Mg Hydrox/Simethicone (Alum-Mag Hydrox-Simeth [phone]/5ml) 30 ml PO Q6H PRN PRN Reason: Indigestion Last Admin: 12/20/17 03:39 Dose: 30 ml Albuterol (Proventil) 2.5 mg IH Q4HRT PRN PRN Reason: Shortness Of Breath Amlodipine Besylate (Norvasc) 10 mg PO QDAY PRAVIN Atorvastatin Calcium (Lipitor) 10 mg PO QHS [facility] Dextrose (D50w (25gm) Syringe) 50 ml IV PRN PRN PRN Reason: Hypoglycemia Gabapentin (Neurontin) 300 mg PO BID PRAVIN Glimepiride (Amaryl) 4 mg PO QAMDIAB [facility] Insulin Human Regular (Humulin R) 0 units SUB-Q ACHS [facility]; Protocol Last Admin: 12/20/17 07:53 Dose: Not Given Metoprolol Succinate (Toprol Xl) 25 mg PO DAILY [facility] Nitroglycerin (Nitrostat) 0.4 mg SL Q5M PRN PRN Reason: Chest Pain Ondansetron HCl (Zofran) 4 mg IV Q8H PRN PRN Reason: Nausea And Vomiting Sodium Chloride (Sodium Chloride Flush Syringe 10 Ml) 10 ml IV BID [facility] Last Admin: 12/20/17 00:40 Dose: 10 ml Sodium Chloride (Sodium Chloride Flush Syringe 10 Ml) 10 ml IV PRN PRN PRN Reason: LINE FLUSH Sodium Chloride (Sodium Chloride Flush Syringe 10 Ml) 10 ml IV PRN PRN PRN Reason: LINE FLUSH Review of Systems All systems: negative (per hpi) Physical Examination Vital Signs Pulse Resp Pulse Ox 107 H 31 H 97 12/19/17 16:28 12/19/17 16:28 12/19/17 16:28 General appearance: no acute distress HEENT: Positive: PERRL Neck: Positive: neck supple. Negative: JVD/HJR Cardiac: Positive: Reg Rate and Rhythm Lungs: Positive: clear to auscultation. Negative: Rales Abdomen: Positive: Soft, Active Bowel Sounds Extremities: Absent: edema Results 12/19/17 17:35 12/19/17 17:35 Cardiac Enzymes 12/19/17 Range/Units 17:45 AST 15 (5-40) units/L Coagulation 12/19/17 Range/Units 17:45 PT 13.4 (12.2-14.9) Sec. INR 0.97 (0.87-1.13) APTT 29.0 (24.2-36.6) Sec. CBC 12/19/17 Range/Units 17:35 WBC 9.5 (4.5-11.0) K/mm3 RBC 4.13 (3.65-5.03) M/mm3 Hgb 10.8 L (11.8-15.2) gm/dl Hct 32.8 L (35.5-45.6) % Plt Count 209 (140-440) K/mm3 Lymph # 0.8 L (1.2-5.4) K/mm3 [place] # 0.5 (0.0-0.8) K/mm3 Eos # 0.1 (0.0-0.4) K/mm3 Baso # 0.1 (0.0-0.1) K/mm3 Comprehensive Metabolic Panel 12/19/17 12/19/17 Range/Units 17:35 17:45 Sodium 133 L (137-145) mmol/L Potassium 3.3 L (3.6-5.0) mmol/L Chloride 95.9 L (98-107) mmol/L Carbon Dioxide 24 (22-30) mmol/L BUN 10 (9-20) mg/dL Creatinine 1.1 (0.8-1.5) mg/dL Glucose 252 H (75-100) mg/dL Calcium 8.5 (8.4-10.2) mg/dL Direct Bilirubin < 0.2 (0-0.2) mg/dL Indirect Bilirubin 0.2 mg/dL AST 15 (5-40) units/L ALT 11 (7-56) units/L Alkaline Phosphatase 106 (35-129) units/L Total Protein 5.9 L (6.3-8.2) g/dL Albumin 3.4 L (3.9-5) g/dL EKG interpretations - EKG Sinus rhythms and dysrhythmias: sinus rhythm AV and intraventricular conduction: right bundle branch block, left posterior fascicular Myocardial infarction: septal NM (old age or ind Assessment and Plan Episodes of chest pain suggestive of angina in patient with known CAD s/p prior PCI Cardiac cath in 09/2016 as noted in HPI Patient continues to smoke NM ruled out with serial negative cardiac enzymes. Ischemic cardiomyopathy Htn DM MPI (preliminary): Partially reversible anterior and inferior lateral perfusion defects. EF 31%. Recommend: I have extensively counseled patient to stop smoking - he is refusing to consider this. I will intensifly his anti-anginal medical therapy and recommend in hospital monitoring for at least another 24 hours - will recommend repeat cardiac cath if he has recurrence of angina.
[2017-12-20] MEDS ORDERED: LEXISCAN IV ONE ×2 (10:06→11:17)
[2017-12-20] MEDS: NEURONTIN PO SCH ×2 (13:05→22:12)
[2017-12-20] MEDS: NORVASC PO SCH (13:05)
[2017-12-20] MEDS: TOPROL XL PO SCH (13:06)
[2017-12-20] MEDS: AMARYL PO SCH (13:08)
[2017-12-20 13:24] LABS: Calcium 8.8 mg/dL (8.4-10.2)
--- NOTE | 2017-12-20 13:43 | Progress Note ---
Assessment and Plan Assessment and plan: 72 YO Male with HTN, MT, CVA, DM, OA, Crohns Disease, CAD S/P Stent Placement, Nicotine Dependence presents to ED for evaluation. Pt states that he has experienced pain in his chest for the past 4 days with worsening symptoms over the past 1 day. Pt initially presented to [facility] for care and evaluation, and was diagnosed with Acute MT, but signed out AMA 2 days ago. Pt states that his pain is 6/10, crushing in nature, intermittent, improved with nitro, not worsened with exertion. Pt denies fever, chills, or productive cough. Pt admitted to telemetry and initiated on Chest Pain Protocol, as well as Pneumonia protocol. Cardiology consulted in ED. Chest pain for rule out ACS - Cardiac enzymes are negative, stress test showed reversible defect with an EF of 31% - Cardiology consulted and recommended to follow the patient for 24 hours and if patient has chest pain he will have cardiac cath Uncontrolled diabetes mellitus with hyperglycemia - Patient is on sliding scale insulin, glimpride and 70/30 Hypertension, CHF - continue home medications Nicotine dependence - patient dosen't want to quit smoking Treatment non compliance - patient said he may sign AMA DVT prophylaxis Disposition - continue inpatient care History Interval history: Patient was seen and evaluated after he came back from stress test, patient denied chest pain, patient was lying flat comfortably was no pain or distress. Hospitalist Physical - Physical exam Narrative exam: Not in cardiopulmonary distress. The patient appeared well nourished and normally developed. Vital signs as documented. Head exam is unremarkable. No scleral icterus . Neck is without jugular venous distension, thyromegaly, or carotid bruits. Lungs are clear to auscultation. Cardiac exam reveals regular rate and Rhythm. First and second heart sounds normal. No murmurs, rubs or gallops. Abdominal exam reveals normal bowel sounds, no masses, no organomegaly and no aortic enlargement. Extremities are nonedematous and both femoral and pedal pulses are normal. 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 No focal weakness. - Constitutional Vitals: Temp Pulse Resp BP Pulse Ox 98.4 F 107 H 14 152/81 96 12/20/17 08:20 12/20/17 11:30 12/20/17 08:20 12/20/17 11:30 12/20/17 09:36 General appearance: Present: no acute distress Results - Labs CBC & Chem 7: 12/19/17 17:35 12/20/17 11:12 Labs: Laboratory Last Values WBC 9.5 K/mm3 (4.5-11.0) 12/19/17 17:35 RBC 4.13 M/mm3 (3.65-5.03) 12/19/17 17:35 Hgb 10.8 gm/dl (11.8-15.2) L 12/19/17 17:35 Hct 32.8 % (35.5-45.6) L 12/19/17 17:35 MCV 80 fl (84-94) L 12/19/17 17:35 MCH 26 pg (28-32) L 12/19/17 17:35 MCHC 33 % (32-34) 12/19/17 17:35 RDW 18.7 % (13.2-15.2) H 12/19/17 17:35 Plt Count 209 K/mm3 (140-440) 12/19/17 17:35 Lymph % (Auto) 8.9 % (13.4-35.0) L 12/19/17 17:35 [place] % (Auto) 5.7 % (0.0-7.3) 12/19/17 17:35 Eos % (Auto) 1.2 % (0.0-4.3) 12/19/17 17:35 Baso % (Auto) 0.6 % (0.0-1.8) 12/19/17 17:35 Lymph # 0.8 K/mm3 (1.2-5.4) L 12/19/17 17:35 [place] # 0.5 K/mm3 (0.0-0.8) 12/19/17 17:35 Eos # 0.1 K/mm3 (0.0-0.4) 12/19/17 17:35 Baso # 0.1 K/mm3 (0.0-0.1) 12/19/17 17:35 Seg Neutrophils % 83.6 % (40.0-70.0) H 12/19/17 17:35 Seg Neutrophils # 7.9 K/mm3 (1.8-7.7) H 12/19/17 17:35 PT 13.4 Sec. (12.2-14.9) 12/19/17 17:45 INR 0.97 (0.87-1.13) 12/19/17 17:45 APTT 29.0 Sec. (24.2-36.6) 12/19/17 17:45 Sodium 137 mmol/L (137-145) 12/20/17 11:12 Potassium 4.3 mmol/L (3.6-5.0) D 12/20/17 11:12 Chloride 97.7 mmol/L (98-107) L 12/20/17 11:12 Carbon Dioxide 25 mmol/L (22-30) 12/20/17 11:12 Anion Gap 19 mmol/L 12/20/17 11:12 BUN 9 mg/dL (9-20) 12/20/17 11:12 Creatinine 1.2 mg/dL (0.8-1.5) 12/20/17 11:12 Estimated GFR 60 ml/min 12/20/17 11:12 BUN/Creatinine Ratio 8 % 12/20/17 11:12 Glucose 178 mg/dL (75-100) H 12/20/17 11:12 POC Glucose 248 (70-105) H 12/20/17 13:02 Lactic Acid 1.20 mmol/L (0.7-2.0) 12/19/17 19:26 Calcium 8.8 mg/dL (8.4-10.2) 12/20/17 11:12 Total Bilirubin 0.40 mg/dL (0.1-1.2) 12/19/17 17:45 Direct Bilirubin < 0.2 mg/dL (0-0.2) 12/19/17 17:45 Indirect Bilirubin 0.2 mg/dL 12/19/17 17:45 AST 15 units/L (5-40) 12/19/17 17:45 ALT 11 units/L (7-56) 12/19/17 17:45 Alkaline Phosphatase 106 units/L (35-129) 12/19/17 17:45 Troponin T 0.016 ng/mL (0.00-0.029) 12/20/17 01:24 NT-Pro-B Natriuret Pep 21035 pg/mL (0-900) H 12/19/17 17:45 Total Protein 5.9 g/dL (6.3-8.2) L 12/19/17 17:45 Albumin 3.4 g/dL (3.9-5) L 12/19/17 17:45 Albumin/Globulin Ratio 1.4 % 12/19/17 17:45
[2017-12-20] MEDS ORDERED: LOVENOX SUB-Q SCH (22:00)
[2017-12-20] MEDS: RANEXA ER PO SCH (22:12)
[2017-12-20] MEDS: AMBIEN PO PRN (22:13)
[2017-12-21] MEDS: AMBIEN PO PRN (01:34)
[2017-12-21] MEDS: HumuLIN R SUB-Q SCH (07:36)
[2017-12-21 08:28] LABS: Calcium 8.3 mg/dL (8.4-10.2)
--- NOTE | 2017-12-21 10:51 | Progress Note ---
Assessment and Plan Episodes of chest pain suggestive of angina in patient with known CAD s/p prior PCI No recurrence since hospital admission. Cardiac cath in 09/2016 revealed patent stents. Patient continues to smoke NC ruled out with serial negative cardiac enzymes. Ischemic cardiomyopathy Htn DM MPI (preliminary): Partially reversible anterior and inferior lateral perfusion defects. EF 31%. Recommend: I have extensively counseled patient to stop smoking - he is refusing to consider this. We have intensified his anti-anginal medical therapy and he has not had any recurrence of chest pain - He can be discharged with current medications and should f/u with Dr Cohn withinn 1 week. Subjective Date of service: 12/21/17 Interval history: No further chest pain. He is feeling well and wants to go home. Objective Vital Signs Temp Pulse Resp BP BP Pulse Ox 12/21/17 08:00 97.9 F 12/21/17 07:41 75 14 150/84 98 12/21/17 05:46 98.9 F 82 18 121/60 99 12/21/17 00:53 97.8 F 82 20 138/78 94 12/20/17 22:00 97 12/20/17 21:30 94 12/20/17 19:55 98.3 F 87 18 143/83 96 12/20/17 19:51 94 H 12/20/17 19:20 90 143/83 97 12/20/17 16:06 98.0 F 91 H 16 152/82 100 12/20/17 12:53 97.9 F 93 H 16 143/79 98 12/20/17 11:30 107 H 152/81 12/20/17 11:29 105 H 159/87 12/20/17 11:28 103 H 155/87 12/20/17 11:27 110 H 155/76 12/20/17 11:26 102 H 162/96 12/20/17 11:24 88 160/89 - Physical Examination HEENT: Positive: PERRL Neck: Positive: neck supple. Negative: JVD/HJR Cardiac: Positive: Reg Rate and Rhythm. Negative: Audible Murmur Abdomen: Positive: Soft, Active Bowel Sounds Extremities: Absent: edema - Labs and Meds Comprehensive Metabolic Panel 12/20/17 12/21/17 Range/Units 11:12 07:11 Sodium 137 140 (137-145) mmol/L Potassium 4.3 D 3.7 (3.6-5.0) mmol/L Chloride 97.7 L 99.8 (98-107) mmol/L Carbon Dioxide 25 26 (22-30) mmol/L BUN 9 12 (9-20) mg/dL Creatinine 1.2 1.3 (0.8-1.5) mg/dL Glucose 178 H 131 H (75-100) mg/dL Calcium 8.8 8.3 L (8.4-10.2) mg/dL - EKG Sinus rhythms and dysrhythmias: sinus rhythm AV and intraventricular conduction: right bundle branch block, left posterior fascicular Myocardial infarction: septal NC (old age or ind
[2017-12-21] MEDS: TOPROL XL PO SCH (11:04)
[2017-12-21] MEDS: RANEXA ER PO SCH (11:04)
[2017-12-21] MEDS: NORVASC PO SCH (11:04)
[2017-12-21] MEDS: AMARYL PO SCH (11:04)
[2017-12-21] MEDS: NEURONTIN PO SCH (11:04)
[2017-12-21] MEDS: SODIUM CHLORIDE FLUSH SYRINGE 10 ML IV SCH (11:05)
--- NOTE | 2017-12-21 11:40 | Discharge Summary ---
Providers - Providers Date of Admission: 12/19/17 19:32 Date of discharge: 12/21/17 Attending physician: BESSY DELANEY MD 12/19/17 Consult to Cardiac Rehabilitation [CONS] Routine Reason For Exam: Phase I 12/19/17 19:33 Consult to Cardiology [CONS] Routine Consulting Provider: LIUDMILA BOLTON Reason For Exam: acs Primary care physician: GIFT WRAPPER Hospitalization Reason for admission: Chest pain Condition: Stable Pertinent studies: MPI (preliminary): Partially reversible anterior and inferior lateral perfusion defects. EF 31%. Hospital course: Admission H&P 72 YO Male with HTN, MS, CVA, DM, OA, Crohns Disease, CAD S/P Stent Placement, Nicotine Dependence presents to ED for evaluation. Pt states that he has experienced pain in his chest for the past 4 days with worsening symptoms over the past 1 day. Pt initially presented to [facility] for care and evaluation, and was diagnosed with Acute MS, but signed out AMA 2 days ago. Pt states that his pain is 6/10, crushing in nature, intermittent, improved with nitro, not worsened with exertion. Pt denies fever, chills, palpitations, trauma , productive cough, BRBPR, unintentional weight loss, night sweats, or bone pain. Pt seen and evaluated in ED and found to have symptoms consistent with ACS , CHF, as well as Pneumonia. Pt admitted to telemetry and initiated on Chest Pain Protocol, as well as Pneumonia protocol. Cardiology consulted in ED. Patient was admitted to the floor, cardiac enzymes are negative, cardiology consulted and a stress test was done. Here is cardiology recommendations " Episodes of chest pain suggestive of angina in patient with known CAD s/p prior PCI No recurrence since hospital admission. Cardiac cath in 09/2016 revealed patent stents. Patient continues to smoke MS ruled out with serial negative cardiac enzymes. Ischemic cardiomyopathy Htn DM MPI (preliminary): Partially reversible anterior and inferior lateral perfusion defects. EF 31%. Patient extensively counseled patient to stop smoking - he is refusing to consider this. We have intensified his anti-anginal medical therapy and he has not had any recurrence of chest pain - He can be discharged with current medications and should f/u with Dr Bolton withinn 1 week. Patient is hemodynamically stable at the time of discharge. Appropriate medications were given detailed discharge. Patient discharged home. Disposition: DC-01 TO HOME OR SELFCARE Time spent for discharge: 31 minutes - Discharge Diagnoses (1) Nicotine dependence Status: Chronic (2) Cardiomyopathy Status: Chronic Qualifiers: Cardiomyopathy type: unspecified Qualified Code(s): I42.9 - Cardiomyopathy , unspecified (3) Chest pain Status: Acute Qualifiers: Chest pain type: unspecified Qualified Code(s): R07.9 - Chest pain, unspecified (4) Diabetes Status: Chronic Qualifiers: Diabetes mellitus type: type 2 Diabetes mellitus complication status: without complication (5) HTN (hypertension) Status: Chronic Qualifiers: Hypertension type: essential hypertension Qualified Code(s): I10 - Essential (primary) hypertension Core Measure Documentation - Palliative Care Palliative Care/ Comfort Measures: Not Applicable - Core Measures Any of the following diagnoses?: none Exam - Physical Exam Narrative exam: Not in cardiopulmonary distress. The patient appeared well nourished and normally developed. Vital signs as documented. Head exam is unremarkable. No scleral icterus . Neck is without jugular venous distension, thyromegaly, or carotid bruits. Lungs are clear to auscultation. Cardiac exam reveals regular rate and Rhythm. First and second heart sounds normal. No murmurs, rubs or gallops. Abdominal exam reveals normal bowel sounds, no masses, no organomegaly and no aortic enlargement. Extremities are nonedematous and both femoral and pedal pulses are normal. 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 No focal weakness. - Constitutional Vitals: Temp Pulse Resp BP Pulse Ox 97.9 F 75 14 150/84 98 12/21/17 08:00 12/21/17 07:41 12/21/17 07:41 12/21/17 07:41 12/21/17 07:41 Plan Activity: no restrictions Weight Bearing Status: Full Weight Bearing Diet: low salt, diabetic Additional Instructions: Follow at [facility] in 1-2 weeks Follow up with: MICAH CAMPBELL MD [Primary Care Provider] - 3-5 Days LIUDMILA BOLTON MD [Staff Physician] - 7 Days Forms: Discharge Signature Page Prescriptions: AtorvaSTATin [Lipitor] 10 mg PO QHS #30 tablet amLODIPine [Norvasc] 10 mg PO QDAY #30 tablet Metoprolol Xl [Metoprolol SUCCINATE ER TAB] 25 mg PO DAILY #60 tablet Ranolazine ER [Ranexa ER] 500 mg PO BID #60 tablet
[2017-12-21 12:32] VITALS: BP 148/79
--- NOTE | 2017-12-23 03:30 | Treadmill Report ---
THALLIUM STRESS TEST LEFT VENTRICLE: Left ventricle appears mildly dilated. There is a moderate size, mostly fixed lateral wall defect. On the resting study, there is a mild degree of reversibility. Gated analysis suggests moderately severe left ventricular systolic dysfunction with ejection fraction calculated at 31%. CONCLUSION: Abnormal perfusion study, demonstrating a dilated cardiomyopathy, with evidence of mild degree of ischemia in the basal lateral wall. Clinical correlation is recommended and further evaluation may be indicated. [facility]# [id number] AYANA/NTS
== END 2017-12-21 15:27 | disposition home or self-care (01) | DRG 291 ==
LOC: ED 16:25 → 4A 19:32
PROVIDERS: ADMIT Internal Medicine; ATTEND Internal Medicine
DX: I11.0 Hypertensive heart disease with heart failure (principal); J18.9 Pneumonia, unspecified organism; I24.9 Acute ischemic heart disease, unspecified; K50.90 Crohn's disease, unspecified, without complications; F17.213 Nicotine dependence, cigarettes, with withdrawal; I50.43 Acute on chronic combined systolic (congestive) and diastolic (congestive) heart failure; M19.90 Unspecified osteoarthritis, unspecified site; I25.5 Ischemic cardiomyopathy; E87.6 Hypokalemia; I25.119 Atherosclerotic heart disease of native coronary artery with unspecified angina pectoris; E11.65 Type 2 diabetes mellitus with hyperglycemia; I25.2 Old myocardial infarction; Z86.73 Personal history of transient ischemic attack (TIA), and cerebral infarction without residual deficits; Z95.5 Presence of coronary angioplasty implant and graft; Z82.49 Family history of ischemic heart disease and other diseases of the circulatory system; Z83.3 Family history of diabetes mellitus; Z88.2 Allergy status to sulfonamides; Z79.899 Other long term (current) drug therapy; Z71.6 Tobacco abuse counseling
CPT/HCPCS: 36415; 71045; 71275; 78452; 80048; 80074; 82140; 82962; 83880; 84484; 85025; 85610; 85730; 87040; 87086; 93005; 93010; 93017; 93306; 94760; 96365; 96375; A9270-GY; A9502; J1650; J1815; J1940; J1956; J2270; J2405; J2785; Q9967

== ENCOUNTER 2018-01-15 00:43 | Inpatient (IN) | payer MEDICARE ==
[2018-01-15] MEDS ORDERED: NACL 0.9% 1000 ML 1,000 ML IV ONE ×2 (02:18→06:37)
[2018-01-15 02:57] LABS: Basophils % (Auto) 0.2 % (0.0-1.8); Eosinophils % (Auto) 0.1 % (0.0-4.3); Hematocrit 31.3 % (35.5-45.6); Hemoglobin 10.1 gm/dl (11.8-15.2); Lymphocytes # (Auto) 1.1 K/mm3 (1.2-5.4); Lymphocytes % (Auto) 8.1 % (13.4-35.0); Mean Corpuscular HGB Conc 32 % (32-34); Mean Corpuscular Volume 78 fl (84-94); Monocytes # (Auto) 0.8 K/mm3 (0.0-0.8); Monocytes % (Auto) 6.2 % (0.0-7.3); Platelet Count 290 K/mm3 (140-440); Red Blood Count 4.01 M/mm3 (3.65-5.03); Red Cell Distribution Width 18.3 % (13.2-15.2)
[2018-01-15 03:16] LABS: Mean Corpuscular Hemoglobin 25 pg (28-32)
[2018-01-15 03:23] LABS: Calcium 8.5 mg/dL (8.4-10.2)
[2018-01-15 03:30] LABS: Bilirubin,Urine NEG (Negative); Blood,Urine NEG (Negative); Color,Urine Yellow (Yellow); Hyaline Casts,Urine 1 /LPF; Urobilinogen,Urine < 2.0 mg/dL (<2.0)
[2018-01-15] MEDS ORDERED: ZOFRAN IV ONE (06:37)
--- NOTE | 2018-01-15 06:42 | Emergency Department Report ---
ED Abdominal Pain HPI - General Chief Complaint: Nausea/Vomiting/Diarrhea Stated Complaint: DIARRHEA/AMS Time Seen by Provider: 01/15/18 06:34 Source: patient, EMS Mode of arrival: Stretcher Limitations: No Limitations - History of Present Illness Initial Comments: Patient is 72 years old male with history of hypertension, diabetes, CVA and coronary artery disease. [facility] and found to have a blood glucose of 53. Patient is alert and oriented 3. He stated that he been having lower abdominal pain mainly to the left side associated with nausea vomiting and diarrhea. Patient denied any fever. No chest pain, shortness of breath or other symptoms. MD Complaint: abdominal pain -: Last night Location: LLQ Radiation: none Severity scale (0 -10): 0 Quality: sharp - Related Data Home Medications Medication Instructions Recorded Confirmed Last Taken Insulin Regular, Human [HumuLIN R] 10 units SQ TIDAC #0 05/06/16 01/05/18 7 units Gabapentin 300 mg PO BID 09/19/16 01/05/18 09/18/16 300mg Glimepiride [Amaryl] 4 mg PO QAM 03/28/17 01/05/18 Unknown Metformin HCl [Metformin HCl ER] 500 mg PO BIDWM 03/28/17 01/05/18 Unknown Previous Rx's Medication Instructions Recorded Last Taken Type AtorvaSTATin [Lipitor] 10 mg PO QHS #30 tablet 12/21/17 Unknown Rx Metoprolol Xl [Metoprolol 25 mg PO DAILY #60 tablet 12/21/17 Unknown Rx SUCCINATE ER TAB] Ranolazine ER [Ranexa ER] 500 mg PO BID #60 tablet 12/21/17 Unknown Rx Lisinopril [Zestril TAB] 20 mg PO QDAY #30 tablet 01/01/18 Unknown Rx Aspirin [Aspirin TAB] 325 mg PO QDAY #30 tablet 01/12/18 Unknown Rx Furosemide [Lasix] 20 mg PO QDAY #30 tablet 01/12/18 Unknown Rx Allergies Allergy/AdvReac Type Severity Reaction Status Date / Time Sulfa (Sulfonamide Allergy Rash Verified 05/10/13 17:10 Antibiotics) ED Review of Systems ROS: Stated complaint: DIARRHEA/AMS Other details as noted in HPI Comment: All other systems reviewed and negative Constitutional: denies: chills, fever Respiratory: denies: cough, orthopnea, shortness of breath Cardiovascular: denies: chest pain, palpitations Gastrointestinal: abdominal pain, nausea, vomiting, diarrhea. denies: constipation, hematemesis, melena, hematochezia Genitourinary: denies: urgency, dysuria, frequency, hematuria, testicular pain, testicular mass Neurological: denies: headache, weakness, numbness, paresthesias, confusion, abnormal gait ED Past Medical Hx - Past Medical History Previous Medical History?: Yes Hx Hypertension: Yes Hx CVA: Yes (x2 bilateral weakness,walks with walker) Hx Heart Attack/AMI: Yes (x 5) Hx Congestive Heart Failure: No Hx Diabetes: Yes Hx Deep Vein Thrombosis: No Hx Pulmonary Embolism: No Hx Arthritis: Yes Hx Seizures: No Hx Asthma: No Hx COPD: Yes Hx Tuberculosis: No Hx Dementia: No Hx HIV: No Additional medical history: crohns, pneumonia - Surgical History Past Surgical History?: Yes Hx Coronary Stent: Yes (x 6) Hx Pacemaker: No Hx Internal Defibrillator: No Additional Surgical History: angioplasty x 6 - Social History Smoking Status: Current Every Day Smoker Substance Use Type: Alcohol, Prescribed - Medications Home Medications: Home Medications Medication Instructions Recorded Confirmed Last Taken Type Insulin Regular, Human [HumuLIN R] 10 units SQ TIDAC #0 05/06/16 01/05/18 History 7 units Gabapentin 300 mg PO BID 09/19/16 01/05/18 09/18/16 History 300mg Glimepiride [Amaryl] 4 mg PO QAM 03/28/17 01/05/18 Unknown History Metformin HCl [Metformin HCl ER] 500 mg PO BIDWM 03/28/17 01/05/18 Unknown History AtorvaSTATin [Lipitor] 10 mg PO QHS #30 tablet 12/21/17 01/05/18 Unknown Rx Metoprolol Xl [Metoprolol 25 mg PO DAILY #60 tablet 12/21/17 01/05/18 Unknown Rx SUCCINATE ER TAB] Ranolazine ER [Ranexa ER] 500 mg PO BID #60 tablet 12/21/17 01/05/18 Unknown Rx Lisinopril [Zestril TAB] 20 mg PO QDAY #30 tablet 01/01/18 01/05/18 Unknown Rx Aspirin [Aspirin TAB] 325 mg PO QDAY #30 tablet 01/12/18 Unknown Rx Furosemide [Lasix] 20 mg PO QDAY #30 tablet 01/12/18 Unknown Rx ED Physical Exam - General Limitations: No Limitations General appearance: alert, in no apparent distress - Head Head exam: Present: atraumatic, normocephalic, normal inspection - Eye Eye exam: Present: normal appearance - ENT ENT exam: Present: normal exam, normal orophraynx, mucous membranes dry - Neck Neck exam: Present: normal inspection, full ROM. Absent: tenderness, meningismus, lymphadenopathy, thyromegaly - Respiratory Respiratory exam: Present: normal lung sounds bilaterally. Absent: respiratory distress, wheezes, rales, rhonchi, stridor, chest wall tenderness, accessory muscle use, decreased breath sounds, prolonged expiratory - Cardiovascular Cardiovascular Exam: Present: regular rate, normal rhythm, normal heart sounds - GI/Abdominal GI/Abdominal exam: Present: soft, tenderness (left lower quadrant), normal bowel sounds. Absent: distended, guarding, rebound, rigid, organomegaly, mass, bruit, pulsatile mass, hernia - Extremities Exam Extremities exam: Present: normal inspection, full ROM, normal capillary refill. Absent: tenderness, pedal edema, joint swelling, calf tenderness - Back Exam Back exam: Present: normal inspection, full ROM. Absent: tenderness, CVA tenderness (R), CVA tenderness (L), muscle spasm, paraspinal tenderness, vertebral tenderness, rash noted - Neurological Exam Neurological exam: Present: alert, oriented X3, CN II-XII intact, normal gait, reflexes normal - Skin Skin exam: Present: warm, intact, normal color ED Course Vital Signs 01/15/18 01/15/18 01/15/18 01:45 01:48 02:00 Temperature 97.9 F Pulse Rate 83 Respiratory 16 Rate Blood Pressure 109/48 76/38 Blood Pressure [Left] O2 Sat by Pulse 99 98 100 Oximetry 01/15/18 01/15/18 01/15/18 02:15 03:00 03:45 Temperature Pulse Rate 66 Respiratory 16 Rate Blood Pressure 76/38 126/75 Blood Pressure 132/64 [Left] O2 Sat by Pulse 99 99 100 Oximetry 01/15/18 01/15/18 01/15/18 04:00 05:00 05:45 Temperature Pulse Rate 74 Respiratory 14 Rate Blood Pressure 125/62 124/75 Blood Pressure 126/67 [Left] O2 Sat by Pulse 99 97 99 Oximetry 01/15/18 01/15/18 01/15/18 06:00 07:00 07:15 Temperature 98.1 F Pulse Rate Respiratory Rate Blood Pressure 128/64 130/68 Blood Pressure [Left] O2 Sat by Pulse 98 99 Oximetry 01/15/18 01/15/18 09:01 10:02 Temperature Pulse Rate Respiratory Rate Blood Pressure 133/59 129/47 Blood Pressure [Left] O2 Sat by Pulse Oximetry ED Medical Decision Making - Lab Data Result diagrams: 01/15/18 02:48 01/15/18 02:48 - Radiology Data Radiology results: report reviewed Referring Physician: RIKI HOBBS Patient Name: SOLOMON MILES Date of : 1945 Sex: Male Report Date: 2018-01-15 Report Status: [place] [address] Cat Scan Report Signed Patient: SOLOMON MILES MR#: [id number] : 1945 Acct:[id number] Age/Sex: 72 / M ADM Date: 01/15/18 Loc: ED Attending Dr: Ordering Physician: RIKI HOBBS Date of Service: 01/15/18 Procedure(s): CT abdomen pelvis w con Accession Number(s): [id number] cc: RIKI HOBBS CT ABDOMEN PELVIS WITH CONTRAST: HISTORY: abdominal pain. COMPARISON: 12/30/17. TECHNIQUE: Helical CT in 1.25mm intervals following IV contrast. Sagittal and coronal reconstructions. FINDINGS: Lung bases: Small to moderate bilateral pleural effusions have nearly resolved. Trace right pleural effusion persists. Heart size is within normal limits. Liver: There is mild fatty infiltration throughout the liver. No enlargement, mass or surface nodularity. Biliary system: Normal. Pancreas: Normal. Spleen: Normal. Kidneys/ureters/bladder: Mild cortical thinning is present in both kidneys. A punctate calyceal stone is noted in the inferior right kidney. No cystic disease, mass or hydronephrosis. The ureters and bladder are unremarkable. The prostate gland is borderline in size measuring 4.9 cm in diameter. Adrenal glands: Normal. Aorta: Moderate diffuse calcifications are identified. There is mild fusiform dilatation of the infrarenal aorta measuring up to 3.0 cm. Bilateral common iliac stents are in place which appear patent. Intestines: No oral contrast was administered. There is suggestion of minimal circumferential thickening of the sigmoid colon. There a few scattered diverticula in this area. Mild colitis or diverticulitis could be considered. The remaining bowel loops are within normal limits. Appendix: Normal. Ascites: None. Adenopathy: None. Musculoskeletal: Mild osteopenia is suspected. No suspicious bony lesion or acute fracture. IMPRESSION: Consider a mild distal colitis or diverticulitis. See above Near resolution of bilateral pleural effusions/CHF since the previous exam. Mild hepatic steatosis. Cortical thinning in both kidneys. Punctate right renal stone. Atherosclerotic disease in the aorta as described with minimal aneurysmal dilatation. Transcribed By: TTR Dictated By: MARQUITA ULLOA JR, MD Electronically Authenticated By: MARQUITA ULLOA JR, MD Signed Date/Time: 01/15/18822 DD/ 4 TD/TT: 01/15/18822 - Medical Decision Making I discussed the patient was Dr. Greenberg, he agreed to admit the patient to medical service. Critical care attestation.: If time is entered above; I have spent that time in minutes in the direct care of this critically ill patient, excluding procedure time. ED Disposition Clinical Impression: Abdominal pain, Acute diverticulitis, Hypoglycemia Disposition: OP ADMIT IP TO THIS HOSP Is pt being admited?: Yes Condition: Stable
[2018-01-15] MEDS ORDERED: ZOSYN/NS 3.375GM/50ML 3.375 GM/50 ML BAG IV SCH (07:00)
[2018-01-15] MEDS ORDERED: NACL 0.9% 50 ML ONE (07:01)
[2018-01-15] MEDS: ZOSYN/NS 4.5GM/100ML 4.5 GM/100 ML VIAL IV SCH ×3 (08:10→22:26)
--- NOTE | 2018-01-15 08:24 | Cat Scan Report ---
CT ABDOMEN PELVIS WITH CONTRAST: HISTORY: abdominal pain. COMPARISON: 12/30/17. TECHNIQUE: Helical CT in 1.25mm intervals following IV contrast. Sagittal and coronal reconstructions. FINDINGS: Lung bases: Small to moderate bilateral pleural effusions have nearly resolved. Trace right pleural effusion persists. Heart size is within normal limits. Liver: There is mild fatty infiltration throughout the liver. No enlargement, mass or surface nodularity. Biliary system: Normal. Pancreas: Normal. Spleen: Normal. Kidneys/ureters/bladder: Mild cortical thinning is present in both kidneys. A punctate calyceal stone is noted in the inferior right kidney. No cystic disease, mass or hydronephrosis. The ureters and bladder are unremarkable. The prostate gland is borderline in size measuring 4.9 cm in diameter. Adrenal glands: Normal. Aorta: Moderate diffuse calcifications are identified. There is mild fusiform dilatation of the infrarenal aorta measuring up to 3.0 cm. Bilateral common iliac stents are in place which appear patent. Intestines: No oral contrast was administered. There is suggestion of minimal circumferential thickening of the sigmoid colon. There a few scattered diverticula in this area. Mild colitis or diverticulitis could be considered. The remaining bowel loops are within normal limits. Appendix: Normal. Ascites: None. Adenopathy: None. Musculoskeletal: Mild osteopenia is suspected. No suspicious bony lesion or acute fracture. IMPRESSION: Consider a mild distal colitis or diverticulitis. See above Near resolution of bilateral pleural effusions/CHF since the previous exam. Mild hepatic steatosis. Cortical thinning in both kidneys. Punctate right renal stone. Atherosclerotic disease in the aorta as described with minimal aneurysmal dilatation.
[2018-01-15] MEDS ORDERED: D50W (25GM) Syringe IV ONE ×2 (10:32→13:00)
[2018-01-15] MEDS ORDERED: D10W 1,000 ML IV SCH (11:00)
--- NOTE | 2018-01-15 11:42 | History and Physical Report ---
History of Present Illness Date of examination: 01/15/18 Date of admission: 01/15/18 09:32 Chief complaint: abd pain History of present illness: Patient is 72 years old male with history of hypertension, diabetes, CVA and coronary artery disease. [facility] and found to have a blood glucose of 53. Patient is alert and oriented 3. He stated that he been having lower abdominal pain mainly to the left side associated with nausea vomiting and diarrhea. Patient denied any fever. No chest pain, shortness of breath or other symptoms. Patient reports that he did not have any by mouth intake this morning. Past History Past Medical History: arthritis, COPD, diabetes, hypertension, stroke, other ( crohns, pneumonia) Past Surgical History: No surgical history Social history: smoking Family history: no significant family history Medications and Allergies Allergies Allergy/AdvReac Type Severity Reaction Status Date / Time Sulfa (Sulfonamide Allergy Rash Verified 05/10/13 17:10 Antibiotics) Home Medications Medication Instructions Recorded Confirmed Last Taken Type Insulin Regular, Human [HumuLIN R] 10 units SQ TIDAC #0 05/06/16 01/05/18 History 7 units Gabapentin 300 mg PO BID 09/19/16 01/05/18 09/18/16 History 300mg Glimepiride [Amaryl] 4 mg PO QAM 03/28/17 01/05/18 Unknown History Metformin HCl [Metformin HCl ER] 500 mg PO BIDWM 03/28/17 01/05/18 Unknown History AtorvaSTATin [Lipitor] 10 mg PO QHS #30 tablet 12/21/17 01/05/18 Unknown Rx Metoprolol Xl [Metoprolol 25 mg PO DAILY #60 tablet 12/21/17 01/05/18 Unknown Rx SUCCINATE ER TAB] Ranolazine ER [Ranexa ER] 500 mg PO BID #60 tablet 12/21/17 01/05/18 Unknown Rx Lisinopril [Zestril TAB] 20 mg PO QDAY #30 tablet 01/01/18 01/05/18 Unknown Rx Aspirin [Aspirin TAB] 325 mg PO QDAY #30 tablet 01/12/18 Unknown Rx Furosemide [Lasix] 20 mg PO QDAY #30 tablet 01/12/18 Unknown Rx Diphenoxylate/Atropine [Lomotil] 1 tab PO Q8H PRN 01/15/18 01/15/18 Unknown History Insulin Lispro [HumaLOG VIAL] See Protocol SQ ACHS 01/15/18 01/15/18 Unknown History Promethazine [Phenergan TAB] 25 mg PO Q4H PRN 01/15/18 01/15/18 Unknown History Active Meds: Active Medications Piperacillin Sod/Tazobactam Sod (Zosyn/Ns 4.5gm/100ml) 4.5 gm in 100 mls @ 200 mls/hr IV Q8HR PRAVIN Last Admin: 01/15/18 08:10 Dose: 200 mls/hr Dextrose (D10w) 1,000 mls @ 125 mls/hr IV DIRECT PRAVIN Review of Systems All systems: negative Exam - Constitutional Vitals: Temp Pulse Resp BP Pulse Ox 98.1 F 74 14 129/47 99 01/15/18 07:15 01/15/18 05:45 01/15/18 05:45 01/15/18 10:02 01/15/18 07:00 General appearance: Present: no acute distress, well-nourished - EENT Eyes: Present: PERRL ENT: hearing intact, clear oral mucosa - Neck Neck: Present: supple, normal ROM - Respiratory Respiratory effort: normal Respiratory: bilateral: CTA - Cardiovascular Heart Sounds: Present: S1 & S2. Absent: rub, click - Extremities Extremities: pulses symmetrical, No edema Peripheral Pulses: within normal limits - Abdominal General gastrointestinal: Present: soft, non-distended, normal bowel sounds Localized gastrointestinal: tender: LLQ Male genitourinary: Present: normal - Integumentary Integumentary: Present: clear, warm, dry - Musculoskeletal Musculoskeletal: strength equal bilaterally - Psychiatric Psychiatric: appropriate mood/affect, intact judgment & insight - Neurologic Neurologic: CNII-XII intact, moves all extremities Results - Labs CBC & Chem 7: 01/15/18 02:48 01/15/18 11:05 Labs: Laboratory Last Values WBC 13.7 K/mm3 (4.5-11.0) H 01/15/18 02:48 RBC 4.01 M/mm3 (3.65-5.03) 01/15/18 02:48 Hgb 10.1 gm/dl (11.8-15.2) L 01/15/18 02:48 Hct 31.3 % (35.5-45.6) L 01/15/18 02:48 MCV 78 fl (84-94) L 01/15/18 02:48 MCH 25 pg (28-32) L 01/15/18 02:48 MCHC 32 % (32-34) 01/15/18 02:48 RDW 18.3 % (13.2-15.2) H 01/15/18 02:48 Plt Count 290 K/mm3 (140-440) 01/15/18 02:48 Lymph % (Auto) 8.1 % (13.4-35.0) L 01/15/18 02:48 [place] % (Auto) 6.2 % (0.0-7.3) 01/15/18 02:48 Eos % (Auto) 0.1 % (0.0-4.3) 01/15/18 02:48 Baso % (Auto) 0.2 % (0.0-1.8) 01/15/18 02:48 Lymph # 1.1 K/mm3 (1.2-5.4) L 01/15/18 02:48 [place] # 0.8 K/mm3 (0.0-0.8) 01/15/18 02:48 Eos # 0.0 K/mm3 (0.0-0.4) 01/15/18 02:48 Baso # 0.0 K/mm3 (0.0-0.1) 01/15/18 02:48 Seg Neutrophils % 85.4 % (40.0-70.0) H 01/15/18 02:48 Seg Neutrophils # 11.7 K/mm3 (1.8-7.7) H 01/15/18 02:48 Sodium 133 mmol/L (137-145) L 01/15/18 02:48 Potassium 3.8 mmol/L (3.6-5.0) 01/15/18 02:48 Chloride 97.2 mmol/L (98-107) L 01/15/18 02:48 Carbon Dioxide 24 mmol/L (22-30) 01/15/18 02:48 Anion Gap 16 mmol/L 01/15/18 02:48 BUN 19 mg/dL (9-20) 01/15/18 02:48 Creatinine 1.7 mg/dL (0.8-1.5) H 01/15/18 02:48 Estimated GFR 40 ml/min 01/15/18 02:48 BUN/Creatinine Ratio 11 % 01/15/18 02:48 Glucose 162 mg/dL (75-100) H 01/15/18 11:05 POC Glucose 163 (70-105) H 01/15/18 11:26 Calcium 8.5 mg/dL (8.4-10.2) 01/15/18 02:48 Total Bilirubin 0.30 mg/dL (0.1-1.2) 01/15/18 02:48 AST 16 units/L (5-40) 01/15/18 02:48 ALT 13 units/L (7-56) 01/15/18 02:48 Alkaline Phosphatase 87 units/L (35-129) 01/15/18 02:48 Total Protein 6.0 g/dL (6.3-8.2) L 01/15/18 02:48 Albumin 3.0 g/dL (3.9-5) L 01/15/18 02:48 Albumin/Globulin Ratio 1.0 % 01/15/18 02:48 Urine Color Yellow (Yellow) 01/15/18 03:10 Urine Turbidity Clear (Clear) 01/15/18 03:10 Urine pH 6.0 (5.0-7.0) 01/15/18 03:10 Ur Specific [place] 1.009 (1.003-1.030) 01/15/18 03:10 Urine Protein 30 mg/dl mg/dL (Negative) 01/15/18 03:10 Urine Glucose (UA) Neg mg/dL (Negative) 01/15/18 03:10 Urine Ketones Neg mg/dL (Negative) 01/15/18 03:10 Urine Blood Neg (Negative) 01/15/18 03:10 Urine Nitrite Neg (Negative) 01/15/18 03:10 Urine Bilirubin Neg (Negative) 01/15/18 03:10 Urine Urobilinogen < 2.0 mg/dL (<2.0) 01/15/18 03:10 Ur Leukocyte Esterase Neg (Negative) 01/15/18 03:10 Urine WBC (Auto) 4.0 /HPF (0.0-6.0) 01/15/18 03:10 Urine RBC (Auto) 1.0 /HPF (0.0-6.0) 01/15/18 03:10 Hyaline Casts 1 /LPF 01/15/18 03:10 Assessment and Plan Assessment and plan: Colitis/diverticulitis. Patient will be treated with IV antibiotics of Levaquin and Flagyl. IV fluid hydration. Check stool studies. Sepsis. Etiology secondary to above. Continue IV antibiotics and follow blood cultures. Hypoglycemia. Suspect etiology is from taking the Amaryl despite not eating this morning. Patient will be continued on D10 for now. Diabetes mellitus type 2. Continue Accu-Cheks and sliding scale insulin when hypoglycemia has stabilized. 1800 ADA diet. History CVA 2. Continue supportive care. Hypertension. Resume home antihypertensive medications. COPD. Compensated. Tobacco abuse. Patient will be counseled on cessation.
[2018-01-15] MEDS ORDERED: ZOFRAN IV PRN (11:45)
[2018-01-15] MEDS ORDERED: TYLENOL PO PRN (11:45)
[2018-01-15] MEDS ORDERED: SODIUM CHLORIDE FLUSH SYRINGE 10 ML IV PRN (11:45)
[2018-01-15] MEDS ORDERED: D50W (25GM) Syringe IV PRN (11:51)
[2018-01-15] MEDS ORDERED: D5NS 1,000 ML IV SCH (12:00)
[2018-01-15] MEDS ORDERED: LEVAQUIN 750MG/150ML 750 MG/150 ML BAG IV SCH (14:00)
[2018-01-15] MEDS: FLAGYL 500 MG/100 ML 500 MG/100 ML BAG IV SCH ×2 (14:35→22:26)
[2018-01-15] MEDS: HumuLIN R SUB-Q SCH ×2 (17:52→22:58)
[2018-01-15] MEDS: SODIUM CHLORIDE FLUSH SYRINGE 10 ML IV SCH (22:26)
[2018-01-16 04:55] LABS: Basophils # (Auto) 0.1 K/mm3 (0.0-0.1); Basophils % (Auto) 0.9 % (0.0-1.8); Eosinophils # (Auto) 0.1 K/mm3 (0.0-0.4); Hematocrit 29.3 % (35.5-45.6); Hemoglobin 9.6 gm/dl (11.8-15.2); Lymphocytes # (Auto) 0.9 K/mm3 (1.2-5.4); Lymphocytes % (Auto) 13.2 % (13.4-35.0); Mean Corpuscular HGB Conc 33 % (32-34); Mean Corpuscular Volume 78 fl (84-94); Monocytes # (Auto) 0.5 K/mm3 (0.0-0.8); Monocytes % (Auto) 7.5 % (0.0-7.3); Platelet Count 290 K/mm3 (140-440); Red Blood Count 3.78 M/mm3 (3.65-5.03)
[2018-01-16 05:10] LABS: Mean Corpuscular Hemoglobin 25 pg (28-32)
[2018-01-16 05:19] LABS: Calcium 8.3 mg/dL (8.4-10.2)
[2018-01-16] MEDS: ZOSYN/NS 4.5GM/100ML 4.5 GM/100 ML VIAL IV SCH (05:27)
[2018-01-16] MEDS: FLAGYL 500 MG/100 ML 500 MG/100 ML BAG IV SCH (05:28)
[2018-01-16 08:05] VITALS: BP 130/74
[2018-01-16] MEDS: SODIUM CHLORIDE FLUSH SYRINGE 10 ML IV SCH (09:44)
[2018-01-16] MEDS ORDERED: LOVENOX SUB-Q SCH (10:00)
[2018-01-16] MEDS ORDERED: LEVAQUIN 500MG/100ML 500 MG/100 ML BAG IV SCH (10:00)
[2018-01-16] MEDS ORDERED: LEVAQUIN 250MG/50ML 250 MG/50 ML BAG IV SCH (10:00)
--- NOTE | 2018-01-16 11:04 | Discharge Summary ---
Providers - Providers Date of Admission: 01/15/18 09:32 Date of discharge: 01/16/18 Attending physician: DENISE WEST Primary care physician: ANASTASIA DAWKINS MD Hospitalization Reason for admission: diverticulitis Condition: Stable Hospital course: Patient is 72 years old male with history of hypertension, diabetes, CVA and coronary artery disease. Patient [facility] status and found to have a blood glucose of 53. Patient was alert and oriented 3 after arrival to ED. He stated that he been having lower abdominal pain mainly to the left side associated with nausea vomiting and diarrhea. Patient denied any fever. No chest pain, shortness of breath or other symptoms. Patient reported that he did not have any food the morning of admission but took his amaryl which attributed to his hypoglycemia. The hypoglycemia resloved with D50. CT A/P revealed colitis/diverticulitis that was treated with abx with drastic improvement. Pt. is pain free. D/C time 31 min Disposition: DC/[place]-03 [facility] Time spent for discharge: 31 - Discharge Diagnoses (1) Abdominal pain Status: Acute (2) Acute diverticulitis Status: Acute (3) Hypoglycemia Status: Acute Core Measure Documentation - Palliative Care Palliative Care/ Comfort Measures: Not Applicable - Core Measures Any of the following diagnoses?: none Exam - Constitutional Vitals: Temp Pulse Resp BP Pulse Ox 98.0 F 79 18 130/74 100 01/16/18 07:29 01/16/18 10:00 01/16/18 10:00 01/16/18 07:29 01/16/18 07:29 General appearance: Present: no acute distress, well-nourished - EENT Eyes: Present: PERRL ENT: hearing intact, clear oral mucosa - Neck Neck: Present: supple, normal ROM - Respiratory Respiratory effort: normal Respiratory: bilateral: CTA - Cardiovascular Heart Sounds: Present: S1 & S2. Absent: rub, click - Extremities Extremities: pulses symmetrical, No edema Peripheral Pulses: within normal limits - Abdominal General gastrointestinal: Present: soft, non-tender, non-distended, normal bowel sounds Male genitourinary: Present: normal - Integumentary Integumentary: Present: clear, warm, dry - Musculoskeletal Musculoskeletal: gait normal, strength equal bilaterally - Psychiatric Psychiatric: appropriate mood/affect, intact judgment & insight - Neurologic Neurologic: CNII-XII intact, moves all extremities Plan Activity: no restrictions Weight Bearing Status: Full Weight Bearing Diet: diabetic Follow up with: ANASTASIA DAWKINS MD [Primary Care Provider] - 3-5 Days DESIRE HERNANDEZ MD [Staff Physician] - 7 Days Prescriptions: levoFLOXacin [Levaquin TAB] 500 mg PO QDAY #7 tablet metroNIDAZOLE [Flagyl] 500 mg PO Q8HR #21 tablet
[2018-01-16] MEDS: HumuLIN R SUB-Q SCH ×2 (11:08→11:10)
--- NOTE | 2018-01-19 14:51 | Query- Renal Failure ---
Weston Donaldson Date:__01/19/2018 [employer] Instructor/CDS:___Laura/Dang Phone#:__[phone] Exercise your independent professional judgment when responding to query. Questions asked do not imply a particular answer is desired or expected. We greatly appreciate your clarification on this issue. Clinical Documentation States: 72 Year old male was admitted on 01/15/2018 for having lower abdominal pain mainly to the left side associated with nausea vomiting and diarrhea. Clinical Findings Show: Creatinine 01/15 1.8 01/16 1.5 Please clarify if you mean: Acute Renal Failure with or due to: [ ] Tubular Necrosis [ ] Medullary Necrosis [ ] Vasomotor Nephropathy [ ] Shock Kidney [ ] Tubular Nephrosis [ ] Renal Tubular Stasis [ ] Cortical Necrosis [ ] Acute Renal Failure (unspecified) [ ] Lower Tubular Nephrosis [ ] Other: [ ] Not Applicable Present on Admission: [ ] Yes (Y) [ ] Clinically undeterminable (W) [ ] No (N) Please also document response in your Progress Notes and/or Discharge Summary and indicate if the condition was present on admission. DAVIDD
== END 2018-01-16 14:45 | DRG 872 ==
LOC: ED 00:43 → 2B-ACE 09:32
PROVIDERS: ADMIT Hospitalist; ATTEND Hospitalist
DX: A41.9 Sepsis, unspecified organism (principal); K50.90 Crohn's disease, unspecified, without complications; K57.32 Diverticulitis of large intestine without perforation or abscess without bleeding; I10 Essential (primary) hypertension; J44.9 Chronic obstructive pulmonary disease, unspecified; F17.200 Nicotine dependence, unspecified, uncomplicated; I25.10 Atherosclerotic heart disease of native coronary artery without angina pectoris; E11.649 Type 2 diabetes mellitus with hypoglycemia without coma; Z88.2 Allergy status to sulfonamides; I25.2 Old myocardial infarction; Z87.01 Personal history of pneumonia (recurrent); Z95.5 Presence of coronary angioplasty implant and graft; Z79.2 Long term (current) use of antibiotics; Z71.6 Tobacco abuse counseling; Z79.82 Long term (current) use of aspirin; I69.365 Other paralytic syndrome following cerebral infarction, bilateral
CPT/HCPCS: 36415; 74177; 80048; 80053; 81001; 82947; 82962; 85025; 87040; 96361; 96374; 96375; 99285; J1650; J1815; J1956; J2405; J2543; J7030; J7042; Q9967

== ENCOUNTER 2018-06-28 20:40 | Inpatient (IN) | payer MEDICARE ==
[2018-06-28] MEDS ORDERED: MORPHINE IV ONE (21:18)
[2018-06-28] MEDS ORDERED: PEPCID IV ONE ×2 (21:18→23:50)
[2018-06-28] MEDS ORDERED: NACL 0.9% 250ML 250 ML IV ONE (21:18)
[2018-06-28] MEDS ORDERED: ZOFRAN IV ONE (21:18)
--- NOTE | 2018-06-28 21:34 | Emergency Department Report ---
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 Pain is in the epigastric area described as a constant sharp pain. Patient having nausea, vomiting, and diarrhea. Patient reports decreased by mouth intake due secondary to vomiting. He denies fever, melena, hematochezia, or hematemesis. He takes aspirin intermittently and does not use Plavix. He cannot recall the name of his PMD this is only seen them once time. As per medical record patient was enrolled in hospice and he states that he is not currently a hospice patient but he does have Home healthcare. He did receive a medicine for nausea given to him by his home health nurse prior to arrival. Patient does not currently have a GI specialist and he is not currently on any Crohn specific medication. - Related Data Home Medications Medication Instructions Recorded Confirmed Last Taken Insulin Regular, Human [HumuLIN R] 10 units SQ TIDAC #0 05/06/16 01/15/18 09/16/16 7 units Gabapentin 300 mg PO BID 09/19/16 01/15/18 09/18/16 300mg Glimepiride [Amaryl] 4 mg PO QAM 03/28/17 01/15/18 Unknown Metformin HCl [Metformin HCl ER] 500 mg PO BIDWM 03/28/17 01/15/18 Unknown Diphenoxylate/Atropine [Lomotil] 1 tab PO Q8H PRN 01/15/18 01/15/18 Unknown Insulin Lispro [HumaLOG VIAL] See Protocol SQ ACHS 01/15/18 01/15/18 Unknown Promethazine [Phenergan TAB] 25 mg PO Q4H PRN 01/15/18 01/15/18 Unknown Previous Rx's Medication Instructions Recorded Last Taken Type AtorvaSTATin [Lipitor] 10 mg PO QHS #30 tablet 12/21/17 Unknown Rx Metoprolol Xl [Metoprolol 25 mg PO DAILY #60 tablet 12/21/17 Unknown Rx SUCCINATE ER TAB] Ranolazine ER [Ranexa ER] 500 mg PO BID #60 tablet 12/21/17 Unknown Rx Lisinopril [Zestril TAB] 20 mg PO QDAY #30 tablet 01/01/18 Unknown Rx Aspirin [Aspirin TAB] 325 mg PO QDAY #30 tablet 01/12/18 Unknown Rx Furosemide [Lasix TAB] 20 mg PO QDAY #30 tablet 01/12/18 Unknown Rx levoFLOXacin [Levaquin TAB] 500 mg PO QDAY #7 tablet 01/16/18 Unknown Rx metroNIDAZOLE [Flagyl] 500 mg PO Q8HR #21 tablet 01/16/18 Unknown Rx Allergies Allergy/AdvReac Type Severity Reaction Status Date / Time Sulfa (Sulfonamide Allergy Rash Verified 05/10/13 17:10 Antibiotics) ED Review of Systems Comment: All other systems reviewed and negative ED Past Medical Hx - Past Medical History Hx Hypertension: Yes Hx CVA: Yes (x2 bilateral weakness,walks with walker) Hx Heart Attack/AMI: Yes (x 5) Hx Congestive Heart Failure: Yes (ischemic cardiopathy with the EF of 15-20%) Hx Diabetes: Yes Hx Deep Vein Thrombosis: No Hx Pulmonary Embolism: No Hx Arthritis: Yes Hx Seizures: No Hx Asthma: No Hx COPD: Yes Hx Tuberculosis: No Hx Dementia: No Hx HIV: No Additional medical history: crohns, pneumonia. Diverticulitis - Surgical History Hx Coronary Stent: Yes (x 6) Hx Pacemaker: No Hx Internal Defibrillator: No Additional Surgical History: angioplasty x 6 - Social History Smoking Status: Current Every Day Smoker Substance Use Type: None - Medications Home Medications: Home Medications Medication Instructions Recorded Confirmed Last Taken Type Insulin Regular, Human [HumuLIN R] 10 units SQ TIDAC #0 05/06/16 01/15/18 09/16/16 History 7 units Gabapentin 300 mg PO BID 09/19/16 01/15/18 09/18/16 History 300mg Glimepiride [Amaryl] 4 mg PO QAM 03/28/17 01/15/18 Unknown History Metformin HCl [Metformin HCl ER] 500 mg PO BIDWM 03/28/17 01/15/18 Unknown History AtorvaSTATin [Lipitor] 10 mg PO QHS #30 tablet 12/21/17 01/15/18 Unknown Rx Metoprolol Xl [Metoprolol 25 mg PO DAILY #60 tablet 12/21/17 01/15/18 Unknown Rx SUCCINATE ER TAB] Ranolazine ER [Ranexa ER] 500 mg PO BID #60 tablet 12/21/17 01/15/18 Unknown Rx Lisinopril [Zestril TAB] 20 mg PO QDAY #30 tablet 01/01/18 01/15/18 Unknown Rx Aspirin [Aspirin TAB] 325 mg PO QDAY #30 tablet 01/12/18 01/15/18 Unknown Rx Furosemide [Lasix TAB] 20 mg PO QDAY #30 tablet 01/12/18 01/15/18 Unknown Rx Diphenoxylate/Atropine [Lomotil] 1 tab PO Q8H PRN 01/15/18 01/15/18 Unknown History Insulin Lispro [HumaLOG VIAL] See Protocol SQ ACHS 01/15/18 01/15/18 Unknown History Promethazine [Phenergan TAB] 25 mg PO Q4H PRN 01/15/18 01/15/18 Unknown History levoFLOXacin [Levaquin TAB] 500 mg PO QDAY #7 tablet 01/16/18 Unknown Rx metroNIDAZOLE [Flagyl] 500 mg PO Q8HR #21 tablet 01/16/18 Unknown Rx ED Physical Exam - General Limitations: Physical Limitation - Other Other exam information: General: No limitations, patient is alert in no acute distress Head exam: Atraumatic, normocephalic Eyes exam: Normal appearance, pupils equal reactive to light, extraocular movements intact ENT: Dry mucous membranes Neck exam: Normal inspection, full range of motion, no meningismus nontender Respiratory exam: Clear to auscultation bilateral, no wheezes, rales, crackles Cardiovascular: Normal rate and rhythm, normal heart sounds Abdomen: Soft, nondistended, epigastric and right lower quadrant tenderness, with normal bowel sounds, no rebound, or guarding Extremity: Full range of motion normal inspection no deformity Back: Normal Inspection, full range of motion, no tenderness Neurologic: Alert, oriented x3, cranial nerves intact, no motor or sensory deficit Psychiatric: normal affect, normal mood Skin: Warm, dry, intact ED Course - Reevaluation(s) Reevaluation #1: 02/04/19 05:55 ct abd/pelvis was ordered at 8:30 pm and wasn't performed until 5:30am. 06/29/18 05:55 ED Medical Decision Making - Lab Data Result diagrams: 06/28/18 21:34 06/28/18 21:34 Lab Results 06/28/18 06/28/18 06/28/18 Range/Units 04:27 21:34 21:34 WBC 6.7 (4.5-11.0) K/mm3 RBC 4.42 (3.65-5.03) M/mm3 Hgb 11.4 L (11.8-15.2) gm/dl Hct 34.7 L (35.5-45.6) % MCV 79 L (84-94) fl MCH 26 L (28-32) pg MCHC 33 (32-34) % RDW 16.9 H (13.2-15.2) % Plt Count 233 (140-440) K/mm3 Lymph % (Auto) 13.5 (13.4-35.0) % [place] % (Auto) 7.1 (0.0-7.3) % Eos % (Auto) 1.6 (0.0-4.3) % Baso % (Auto) 0.8 (0.0-1.8) % Lymph # 0.9 L (1.2-5.4) K/mm3 [place] # 0.5 (0.0-0.8) K/mm3 Eos # 0.1 (0.0-0.4) K/mm3 Baso # 0.1 (0.0-0.1) K/mm3 Seg Neutrophils % 77.0 H (40.0-70.0) % Seg Neutrophils # 5.2 (1.8-7.7) K/mm3 Sodium (137-145) mmol/L Potassium (3.6-5.0) mmol/L Chloride (98-107) mmol/L Carbon Dioxide (22-30) mmol/L Anion Gap mmol/L BUN (9-20) mg/dL Creatinine (0.8-1.5) mg/dL Estimated GFR ml/min BUN/Creatinine Ratio % Glucose (75-100) mg/dL Osmolality 259 Mosm/kg Calcium (8.4-10.2) mg/dL Total Bilirubin (0.1-1.2) mg/dL AST (5-40) units/L ALT (7-56) units/L Alkaline Phosphatase (35-129) units/L Total Protein (6.3-8.2) g/dL Albumin (3.9-5) g/dL Albumin/Globulin Ratio % Lipase 119 H (13-60) units/L 06/28/18 Range/Units 21:34 WBC (4.5-11.0) K/mm3 RBC (3.65-5.03) M/mm3 Hgb (11.8-15.2) gm/dl Hct (35.5-45.6) % MCV (84-94) fl MCH (28-32) pg MCHC (32-34) % RDW (13.2-15.2) % Plt Count (140-440) K/mm3 Lymph % (Auto) (13.4-35.0) % [place] % (Auto) (0.0-7.3) % Eos % (Auto) (0.0-4.3) % Baso % (Auto) (0.0-1.8) % Lymph # (1.2-5.4) K/mm3 [place] # (0.0-0.8) K/mm3 Eos # (0.0-0.4) K/mm3 Baso # (0.0-0.1) K/mm3 Seg Neutrophils % (40.0-70.0) % Seg Neutrophils # (1.8-7.7) K/mm3 Sodium 117 L* (137-145) mmol/L Potassium 4.8 (3.6-5.0) mmol/L Chloride 78.3 L (98-107) mmol/L Carbon Dioxide 24 (22-30) mmol/L Anion Gap 20 mmol/L BUN 13 (9-20) mg/dL Creatinine 1.3 (0.8-1.5) mg/dL Estimated GFR 54 ml/min BUN/Creatinine Ratio 10 % Glucose 212 H (75-100) mg/dL Osmolality Mosm/kg Calcium 8.7 (8.4-10.2) mg/dL Total Bilirubin 0.30 (0.1-1.2) mg/dL AST 12 (5-40) units/L ALT 9 (7-56) units/L Alkaline Phosphatase 96 (35-129) units/L Total Protein 7.2 (6.3-8.2) g/dL Albumin 3.8 L (3.9-5) g/dL Albumin/Globulin Ratio 1.1 % Lipase (13-60) units/L - Medical Decision Making Patient corrected sodium level (adjusted for hyperglycemia) is 119-120. Pt given 500 NS in ed (hx of chf) will be admitted. delay in admission while awaiting ct results Dr Goodwin informed, Dr Soler asked to f/u scan - Differential Diagnosis gastritis, gastroenteritis, Crohn's, diverticulitis Critical Care Time: No ED Disposition Clinical Impression: Abdominal pain, Hyponatremia Disposition: OP ADMIT IP TO THIS HOSP Is pt being admited?: Yes Condition: Stable Referrals: MARIANO ANN [Primary Care Provider] - 3-5 Days Time of Disposition: 06:01 (DR Goodwin/hosp) <DADA SOLER - Last Filed: 06/29/18 07:57> ED Review of Systems ROS: Stated complaint: ABD PAIN Other details as noted in HPI ED Course Vital Signs 06/28/18 06/28/18 06/28/18 20:58 21:00 21:16 Temperature 97.6 F Pulse Rate 69 69 69 Respiratory 24 18 16 Rate Blood Pressure 144/62 144/62 144/62 Blood Pressure [Left] O2 Sat by Pulse 100 100 99 Oximetry 06/28/18 06/28/18 06/28/18 21:30 21:46 22:00 Temperature Pulse Rate 71 70 74 Respiratory 25 H 23 20 Rate Blood Pressure 132/69 132/69 136/74 Blood Pressure [Left] O2 Sat by Pulse 100 98 100 Oximetry 06/28/18 06/28/18 06/28/18 22:16 22:30 22:46 Temperature Pulse Rate 70 70 67 Respiratory 20 14 14 Rate Blood Pressure 136/74 135/72 135/72 Blood Pressure [Left] O2 Sat by Pulse 100 99 100 Oximetry 06/28/18 06/28/18 06/28/18 23:00 23:16 23:30 Temperature Pulse Rate 69 69 64 Respiratory 15 20 16 Rate Blood Pressure 130/66 130/66 132/69 Blood Pressure [Left] O2 Sat by Pulse 98 100 99 Oximetry 06/28/18 06/29/18 06/29/18 23:46 00:00 00:06 Temperature Pulse Rate 70 72 66 Respiratory 11 L 15 16 Rate Blood Pressure 132/69 116/71 Blood Pressure 116/71 [Left] O2 Sat by Pulse 98 98 98 Oximetry 06/29/18 06/29/18 06/29/18 00:07 00:16 00:30 Temperature Pulse Rate 64 63 Respiratory 16 22 15 Rate Blood Pressure 132/69 127/67 Blood Pressure [Left] O2 Sat by Pulse 99 99 Oximetry 06/29/18 06/29/18 06/29/18 00:46 01:00 01:16 Temperature Pulse Rate 66 63 63 Respiratory 16 11 L 13 Rate Blood Pressure 127/67 126/66 126/66 Blood Pressure [Left] O2 Sat by Pulse 99 98 98 Oximetry 06/29/18 06/29/18 06/29/18 01:30 01:46 02:00 Temperature Pulse Rate 63 64 65 Respiratory 14 13 17 Rate Blood Pressure 128/67 128/67 124/69 Blood Pressure [Left] O2 Sat by Pulse 98 98 98 Oximetry 06/29/18 06/29/18 06/29/18 02:16 02:30 02:46 Temperature Pulse Rate 62 73 65 Respiratory 15 14 13 Rate Blood Pressure 126/66 126/66 124/69 Blood Pressure [Left] O2 Sat by Pulse 98 96 98 Oximetry 06/29/18 06/29/18 06/29/18 03:00 03:16 03:30 Temperature Pulse Rate 62 62 63 Respiratory 14 13 14 Rate Blood Pressure 122/70 122/70 122/65 Blood Pressure [Left] O2 Sat by Pulse 99 99 99 Oximetry 06/29/18 06/29/18 06/29/18 03:46 04:00 04:16 Temperature Pulse Rate 70 61 66 Respiratory 12 13 15 Rate Blood Pressure 122/65 121/61 121/61 Blood Pressure [Left] O2 Sat by Pulse 100 100 100 Oximetry 06/29/18 06/29/18 06/29/18 04:30 04:46 05:00 Temperature Pulse Rate 64 62 63 Respiratory 20 19 18 Rate Blood Pressure 119/60 119/60 127/64 Blood Pressure [Left] O2 Sat by Pulse 100 99 99 Oximetry 06/29/18 05:15 Temperature Pulse Rate 67 Respiratory 11 L Rate Blood Pressure 121/61 Blood Pressure [Left] O2 Sat by Pulse 98 Oximetry - Reevaluation(s) Reevaluation #2: 06/29/18 07:56 CT scan of the abdomen and pelvis suggests colitis, possible esophagitis. Laboratory studies reviewed and demonstrated elevated lipase, and hyponatremia. Patient will be admitted to the medical service, and the hospital physician, Dr. Rafy Lozoya, is going to admit the patient to the medical service. ED Medical Decision Making - Lab Data Result diagrams: 06/28/18 21:34 06/28/18 21:34 - Radiology Data Radiology results: report reviewed, image reviewed Critical care attestation.: If time is entered above; I have spent that time in minutes in the direct care of this critically ill patient, excluding procedure time. ED Disposition Is pt being admited?: Yes
[2018-06-28 21:54] LABS: Basophils # (Auto) 0.1 K/mm3 (0.0-0.1); Basophils % (Auto) 0.8 % (0.0-1.8); Eosinophils # (Auto) 0.1 K/mm3 (0.0-0.4); Eosinophils % (Auto) 1.6 % (0.0-4.3); Hematocrit 34.7 % (35.5-45.6); Hemoglobin 11.4 gm/dl (11.8-15.2); Lymphocytes # (Auto) 0.9 K/mm3 (1.2-5.4); Lymphocytes % (Auto) 13.5 % (13.4-35.0); Mean Corpuscular HGB Conc 33 % (32-34); Mean Corpuscular Volume 79 fl (84-94); Monocytes # (Auto) 0.5 K/mm3 (0.0-0.8); Monocytes % (Auto) 7.1 % (0.0-7.3); Platelet Count 233 K/mm3 (140-440); Red Blood Count 4.42 M/mm3 (3.65-5.03); Red Cell Distribution Width 16.9 % (13.2-15.2)
[2018-06-28 22:19] LABS: Albumin 3.8 g/dL (3.9-5); Calcium 8.7 mg/dL (8.4-10.2)
[2018-06-28] MEDS ORDERED: MORPHINE ONE (23:48)
[2018-06-28] MEDS ORDERED: NACL 0.9% 1000 ML 1,000 ML ONE (23:49)
[2018-06-28] MEDS ORDERED: ZOFRAN ONE (23:49)
[2018-06-29] MEDS ORDERED: NACL 0.9% 250ML 250 ML IV ONE (04:11)
--- NOTE | 2018-06-29 05:54 | Cat Scan Report ---
FINAL REPORT EXAM: CT ABDOMEN PELVIS W CON HISTORY: epigastric rlq pain, n,v,d, hx of chrons and diver TECHNIQUE: Routine axial imaging was obtained of the abdomen and pelvis following the intravenous in jection of 100 cc of Omnipaque 350. Delayed imaging was obtained through the kidneys ureters and blad elias. Sagittal coronal reconstructions were reviewed. Comparison is made to the study of 01/15/2018. FINDINGS: The lung bases do not show infiltrates or effusions. There is nonspecific mucosal thickening in the d istal esophagus. The liver, gallbladder, biliary tree, pancreas, spleen, and adrenal glands appear normal. The kidneys enhance normally. There is no evidence of hydronephrosis. There calcification of the abdominal aorta which has a maximum diameter 3.3 cm. The small bowel loops are normal in caliber. There is no eviden ce of any inflammatory process in the right lower quadrant. The appendix appears normal. The large joy wel loops are normal in caliber. There is circumferential mucosal thickening and edema in the descend ing colon extending to the proximal sigmoid colon. This is compatible with a nonspecific colitis. The re is no evidence of free fluid or adenopathy. In the pelvis the prostate gland is mildly enlarged. T he bladder appears normal. The skeletal structures reveal mild arthritic changes lumbar spine. IMPRESSION: Circumferential mucosal thickening in the descending colon and proximal sigmoid colon compatible with colitis. No evidence of any inflammatory process in the right lower quadrant. The appendix appears normal. Nonspecific circumferential mucosal thickening in the distal esophagus. Esophagitis cannot be exclude d.
[2018-06-29 06:44] LABS: Chloride, Urine 35.5 mmolL (110-250)
[2018-06-29 06:47] LABS: Bacteria,Urine 1+ /HPF (Negative); Bilirubin,Urine NEG (Negative); Blood,Urine SM (Negative); Color,Urine Yellow (Yellow); Urobilinogen,Urine < 2.0 mg/dL (<2.0)
[2018-06-29 07:02] LABS: WBC,Urine < 1.0 /HPF (0.0-6.0)
[2018-06-29] MEDS ORDERED: AUGMENTIN 875 MG PO ONE (07:41)
[2018-06-29] MEDS ORDERED: FLAGYL 500 MG/100 ML 500 MG/100 ML BAG IV ONE ×2 (07:41→09:13)
--- NOTE | 2018-06-29 08:52 | Consultation ---
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 Pain is in the epigastric area described as a constant sharp pain. Patient having nausea, vomiting, and diarrhea. Patient reports decreased by mouth intake due secondary to vomiting. He denies fever, melena, hematochezia, or hematemesis. He takes aspirin intermittently and does not use Plavix. He cannot recall the name of his PMD this is only seen them once time. As per medical record patient was enrolled in hospice and he states that he is not currently a hospice patient but he does have Home healthcare. He did receive a medicine for nausea given to him by his home health nurse prior to arrival. Patient does not currently have a GI specialist and he is not currently on any Crohn specific medication. Renal consult was requested for a serum sodium of 117. Patient denies any previous knowledge of hyponatremia. Past History Past Medical History: CAD, diabetes, hypertension, other (Crohn's disease and cardiomyopathy) Social history: no significant social history Family history: no significant family history Medications and Allergies Allergies Allergy/AdvReac Type Severity Reaction Status Date / Time Sulfa (Sulfonamide Allergy Rash Verified 05/10/13 17:10 Antibiotics) Home Medications Medication Instructions Recorded Confirmed Last Taken Type Insulin Regular, Human [HumuLIN R] 10 units SQ TIDAC #0 05/06/16 01/15/18 09/16/16 History 7 units Gabapentin 300 mg PO BID 09/19/16 01/15/18 09/18/16 History 300mg Glimepiride [Amaryl] 4 mg PO QAM 03/28/17 01/15/18 Unknown History Metformin HCl [Metformin HCl ER] 500 mg PO BIDWM 03/28/17 01/15/18 Unknown History AtorvaSTATin [Lipitor] 10 mg PO QHS #30 tablet 12/21/17 01/15/18 Unknown Rx Metoprolol Xl [Metoprolol 25 mg PO DAILY #60 tablet 12/21/17 01/15/18 Unknown Rx SUCCINATE ER TAB] Ranolazine ER [Ranexa ER] 500 mg PO BID #60 tablet 12/21/17 01/15/18 Unknown Rx Lisinopril [Zestril TAB] 20 mg PO QDAY #30 tablet 01/01/18 01/15/18 Unknown Rx Aspirin [Aspirin TAB] 325 mg PO QDAY #30 tablet 01/12/18 01/15/18 Unknown Rx Furosemide [Lasix TAB] 20 mg PO QDAY #30 tablet 01/12/18 01/15/18 Unknown Rx Diphenoxylate/Atropine [Lomotil] 1 tab PO Q8H PRN 01/15/18 01/15/18 Unknown History Insulin Lispro [HumaLOG VIAL] See Protocol SQ ACHS 01/15/18 01/15/18 Unknown History Promethazine [Phenergan TAB] 25 mg PO Q4H PRN 01/15/18 01/15/18 Unknown History levoFLOXacin [Levaquin TAB] 500 mg PO QDAY #7 tablet 01/16/18 Unknown Rx metroNIDAZOLE [Flagyl] 500 mg PO Q8HR #21 tablet 01/16/18 Unknown Rx Review of Systems All systems: negative (negative except as noted above) Exam - Vital Signs Vital signs: Vital Signs Temp Pulse Resp BP Pulse Ox 97.6 F 69 24 144/62 100 06/28/18 20:58 06/28/18 20:58 06/28/18 20:58 06/28/18 20:58 06/28/18 20:58 - General Appearance General appearance: well-developed, well-nourished, appears stated age EENT: PERRL, mucous membranes dry, other (oral mucosa is dry) Neck: Present: neck supple, trachea midline. Absent: JVD/HJR, Masses Respiratory: Clear to Ascultation Heart: regular, normal heart rate, S1S2, no murmurs Gastrointestinal: Present: normoactive bowel sounds, tenderness (mild epigastric tenderness) Integumentary: no rash, other (no edema) Results - Lab Results 06/28/18 21:34 06/28/18 21:34 Most recent lab results Calcium 8.7 mg/dL (8.4-10.2) 06/28/18 21:34 Urine Sodium 58 mmol/L 06/29/18 06:25 Assessment and Plan Impression * Severe hyponatremia. Patient clinically appears dehydrated * Nausea vomiting and diarrhea for 2 weeks * History of cardiomyopathy with an ejection fraction of 15-20% * Coronary artery disease. Status post multiple stent placement * Crohn's disease * Hypertension * Diabetes * COPD Recommendations * Patient clinically appears to be volume depleted. * Hydrate patient with isotonic fluid * Shall do hyponatremia workup * Hold diuretics * Avoid hydrochlorothiazide and other medications that can potentiate hyponatremia * He may also have a component of SIADH from his COPD * Monitor fluid status and electrolytes closely * Thank you very much for the consultation. Shall follow along with you
[2018-06-29] MEDS ORDERED: NACL 0.9% 1000 ML 1,000 ML IV SCH (09:00)
--- NOTE | 2018-06-29 09:05 | History and Physical Report ---
History of Present Illness Date of examination: 06/29/18 Date of admission: 06/29/18 07:57 Chief complaint: Abdominal pain, nausea,vomiting,diarrhea History of present illness: Patient is 73 yo with CAD s/p CABG, cardiomyopathy, chronic systolic CHF, diabetes, hypertension. He presents with abdominal pain, nausea, vomiting, diarrheal for 2 weeks. Abdominal pain is 10 out of 10 in intensity, mid abdomen, sharp pain, with no radiation. he also complains of vomiting 2-3 times a day for 2 weeks and watery diarrhea 4-6 times a day for 2 weeks. Patient was evaluated in ED found to have hyponatremia with Na [address] Will admit. Past History Past Medical History: CAD, diabetes, heart failure, hypertension, other (Crohn's disease and cardiomyopathy) Past Surgical History: CABG Social history: lives with family, smoking, full code, other (Alcohol occasiona lly) Family history: CAD Medications and Allergies Allergies Allergy/AdvReac Type Severity Reaction Status Date / Time Sulfa (Sulfonamide Allergy Rash Verified 05/10/13 17:10 Antibiotics) Home Medications Medication Instructions Recorded Confirmed Last Taken Type Insulin Regular, Human [HumuLIN R] 10 units SQ TIDAC #0 05/06/16 01/15/18 09/16/16 History 7 units Gabapentin 300 mg PO BID 09/19/16 01/15/18 09/18/16 History 300mg Glimepiride [Amaryl] 4 mg PO QAM 03/28/17 01/15/18 Unknown History Metformin HCl [Metformin HCl ER] 500 mg PO BIDWM 03/28/17 01/15/18 Unknown History AtorvaSTATin [Lipitor] 10 mg PO QHS #30 tablet 12/21/17 01/15/18 Unknown Rx Metoprolol Xl [Metoprolol 25 mg PO DAILY #60 tablet 12/21/17 01/15/18 Unknown Rx SUCCINATE ER TAB] Ranolazine ER [Ranexa ER] 500 mg PO BID #60 tablet 12/21/17 01/15/18 Unknown Rx Lisinopril [Zestril TAB] 20 mg PO QDAY #30 tablet 01/01/18 01/15/18 Unknown Rx Aspirin [Aspirin TAB] 325 mg PO QDAY #30 tablet 01/12/18 01/15/18 Unknown Rx Furosemide [Lasix TAB] 20 mg PO QDAY #30 tablet 01/12/18 01/15/18 Unknown Rx Diphenoxylate/Atropine [Lomotil] 1 tab PO Q8H PRN 01/15/18 01/15/18 Unknown H istory Insulin Lispro [HumaLOG VIAL] See Protocol SQ ACHS 01/15/18 01/15/18 Unknown History Promethazine [Phenergan TAB] 25 mg PO Q4H PRN 01/15/18 01/15/18 Unknown History levoFLOXacin [Levaquin TAB] 500 mg PO QDAY #7 tablet 01/16/18 Unknown Rx metroNIDAZOLE [Flagyl] 500 mg PO Q8HR #21 tablet 01/16/18 Unknown Rx Active Meds: Active Medications Sodium Chloride (Nacl 0.9% 1000 Ml) 1,000 mls @ 125 mls/hr IV DIRECT PRAVIN Review of Systems All systems: negative (No chest pain, no sob, no urinary symptoms. All other systems reviewed and are negative) Exam - Physical Exam Narrative exam: GEN: Not in acute distress, lying in bed, HEENT: Normocephalic, atraumatic, Neck: supple, No JVD Lungs: Clear to auscultation bilaterally, no wheeze Heart:S1 and S2 regular, no murmurs, rubs or gallop, Abd:soft, tender mid to lower abd, no rebound tenderness, non distended, normal bowel sounds Ext: No edema, no clubbing or cyanosis Neuro: Awake,alert, oriented x 3, moves all ext, muscle power 5/5 - Constitutional Vitals: Temp Pulse Resp BP Pulse Ox 97.6 F 93 H 21 124/63 100 06/28/18 20:58 06/29/18 09:00 06/29/18 09:00 06/29/18 09:00 06/29/18 08:46 Results - Labs CBC & Chem 7: 06/29/18 08:45 06/29/18 11:23 Labs: Abnormal lab results 06/28/18 06/28/18 06/28/18 Range/Units 21:34 21:34 21:34 Hgb 11.4 L (11.8-15.2) gm/dl Hct 34.7 L (35.5-45.6) % MCV 79 L (84-94) fl MCH 26 L (28-32) pg RDW 16.9 H (13.2-15.2) % Lymph # 0.9 L (1.2-5.4) K/mm3 Seg Neutrophils % 77.0 H (40.0-70.0) % Sodium 117 L* (137-145) mmol/L Chloride 78.3 L (98-107) mmol/L Glucose 212 H (75-100) mg/dL Albumin 3.8 L (3.9-5) g/dL Lipase 119 H (13-60) units/L Urine Chloride (110-250) mmolL 06/29/18 Range/Units 06:25 Hgb (11.8-15.2) gm/dl Hct (35.5-45.6) % MCV (84-94) fl MCH (28-32) pg RDW (13.2-15.2) % Lymph # (1.2-5.4) K/mm3 Seg Neutrophils % (40.0-70.0) % Sodium (137-145) mmol/L Chloride (98-107) mmol/L Glucose (75-100) mg/dL Albumin (3.9-5) g/dL Lipase (13-60) units/L Urine Chloride 35.5 L (110-250) mmolL Assessment and Plan Hyponatremia Due to vomiting and diarrhea. Admit to [facility] Unit Start Normal Saline Consult Nephrology Acute colitis give flagyl and levaquin consult GI Chronic systolic CHF Monitor fluid I/O cardiomyopathy CAD s/p CABG Diabetes mellitus type 2 Fingerstick qac and hs hypertension Monitor BP Full code
[2018-06-29 09:07] LABS: Hematocrit 33.5 % (35.5-45.6); Hemoglobin 11.1 gm/dl (11.8-15.2); Mean Corpuscular HGB Conc 33 % (32-34); Mean Corpuscular Volume 79 fl (84-94); Platelet Count 247 K/mm3 (140-440); Red Blood Count 4.24 M/mm3 (3.65-5.03); Red Cell Distribution Width 16.8 % (13.2-15.2)
[2018-06-29] MEDS ORDERED: AUGMENTIN 875 MG ONE (09:13)
[2018-06-29 09:20] LABS: Calcium 7.6 mg/dL (8.4-10.2)
[2018-06-29] MEDS ORDERED: MORPHINE IV PRN (09:31)
[2018-06-29] MEDS ORDERED: SODIUM CHLORIDE FLUSH SYRINGE 10 ML IV PRN (09:31)
[2018-06-29] MEDS ORDERED: TYLENOL PO PRN (09:31)
[2018-06-29] MEDS ORDERED: PROVENTIL IH PRN (09:31)
[2018-06-29] MEDS ORDERED: ZOFRAN IV PRN (09:31)
[2018-06-29] MEDS ORDERED: SODIUM CHLORIDE FLUSH SYRINGE 10 ML IV SCH (10:00)
[2018-06-29 10:11] LABS: Calcium 7.8 mg/dL (8.4-10.2)
[2018-06-29] MEDS ORDERED: LEVAQUIN 500MG/100ML 500 MG/100 ML BAG IV SCH (12:30)
[2018-06-29 13:19] LABS: Osmolality,Urine 262 Mosm/kg
--- NOTE | 2018-06-29 13:44 | Gastroenterology Consultation ---
<VIPIN ALBERTO - Last Filed: 06/29/18 13:44> History of Present Illness - Reason for Consult Consult date: 06/29/18 colitis Requesting physician: DADA HART - History of Present Illness Patient is a 73 y/o male with PMH of CAD (s/p CABD; multiple PCI), DM, HLD, DM, HTN, COPD, tobacco use, and crohns disease who presented to ED with c/o abdominal pain, N/V, and diarrhea x 2 weeks. Upon admission, CT showed colitis to which GI has been consulted. This morning patient was resting in bed w/o acute distress. He reports chronic intermittent abd cramps, diarrhea with BMs x 3/day on average with bloody stools (unchanged from baseline), and N/V, however he states his N/V has become increasing worse in the last 2 weeks with associated epigastric pain with exacerbation after eating. Admits to heartburn but is not taking any medications for it at home. Denies fever, CP, SOB, wt loss, hematemesis, melena, or constipation. No hx of PUD per pt report however he is noted to be a poor historian. No recent abx therapy, travel, or ill co ntacts. He has a hx of Crohns disease but is currently not on any treatment. According to chart review, he is previously know to our service. He has been seen by Dr. Hall in the past with last colonoscopy in 2008 showing inflamed and ulcerated mucosa in the entire colon. He has taken steroids previously for treatment but has been off treatment since 2013. He was seen last year (11/2017) at [place] for similar symptoms by Dr. Vang with undergoing an MR enterography that showed active crohns ileitis (10-15cm Terminal Ileum w/o fistula or abscess0, along with additional segmental areas of edema in cecum, rectosigmoid- descending junction, and mass like thickening in descending colon with an outp atient colonoscopy recommended however patient did not follow up for procedure. Past History Past Medical History: CAD, COPD, diabetes, heart failure, hypertension, other (Crohn's disease and cardiomyopathy) Past Surgical History: CABG Social history: lives with family, smoking, full code, other (Alcohol oc casionally) Family history: CAD Medications and Allergies Allergies Allergy/AdvReac Type Severity Reaction Status Date / Time Sulfa (Sulfonamide Allergy Rash Verified 05/10/13 17:10 Antibiotics) Home Medications Medication Instructions Recorded Confirmed Last Taken Type Insulin Regular, Human [HumuLIN R] 10 units SQ TIDAC #0 05/06/16 01/15/18 09/16/16 History 7 units Gabapentin 300 mg PO BID 09/19/16 01/15/18 09/18/16 History 300mg Glimepiride [Amaryl] 4 mg PO QAM 03/28/17 01/15/18 Unknown History Metformin HCl [Metformin HCl ER] 500 mg PO BIDWM 03/28/17 01/15/18 Unknown History AtorvaSTATin [Lipitor] 10 mg PO QHS #30 tablet 12/21/17 01/15/18 Unknown Rx Metoprolol Xl [Metoprolol 25 mg PO DAILY #60 tablet 12/21/17 01/15/18 Unknown Rx SUCCINATE ER TAB] Ranolazine ER [Ranexa ER] 500 mg PO BID #60 tablet 12/21/17 01/15/18 Unknown Rx Lisinopril [Zestril TAB] 20 mg PO QDAY #30 tablet 01/01/18 01/15/18 Unknown Rx Aspirin [Aspirin TAB] 325 mg PO QDAY #30 tablet 01/12/18 01/15/18 Unknown Rx Furosemide [Lasix TAB] 20 mg PO QDAY #30 tablet 01/12/18 01/15/18 Unknown Rx Diphenoxylate/Atropine [Lomotil] 1 tab PO Q8H PRN 01/15/18 01/15/18 Unknown History Insulin Lispro [HumaLOG VIAL] See Protocol SQ ACHS 01/15/18 01/15/18 Unknown History Promethazine [Phenergan TAB] 25 mg PO Q4H PRN 01/15/18 01/15/18 Unknown History levoFLOXacin [Levaquin TAB] 500 mg PO QDAY #7 tablet 01/16/18 Unknown Rx metroNIDAZOLE [Flagyl] 500 mg PO Q8HR #21 tablet 01/16/18 Unknown Rx Active Meds: Active Medications Acetaminophen (Tylenol) 650 mg PO Q4H PRN PRN Reason: Pain MILD(1-3)/Fever >100.5/MANCILLA Albuterol (Proventil) 2.5 mg IH Q4HRT PRN PRN Reason: Shortness Of Breath Sodium Chloride (Nacl 0.9% 1000 Ml) 1,000 mls @ 125 mls/hr IV DIRECT PRAVIN Last Admin: 06/29/18 11:33 Dose: 125 mls/hr Documented by: Levofloxacin/Dextrose (Levaquin 500mg/100ml) 500 mg in 100 mls @ 100 mls/hr IV Q24HR PRAVIN; Protocol Metronidazole (Flagyl 500 Mg/100 Ml) 500 mg in 100 mls @ 100 mls/hr IV Q8HR PRAVIN; Protocol Morphine Sulfate (Morphine) 2 mg IV Q4H PRN PRN Reason: Pain, Moderate (4-6) Ondansetron HCl (Zofran) 4 mg IV Q8H PRN PRN Reason: Nausea And Vomiting Sodium Chloride (Sodium Chloride Flush Syringe 10 Ml) 10 ml IV BID PRAVIN Sodium Chloride (Sodium Chloride Flush Syringe 10 Ml) 10 ml IV PRN PRN PRN Reason: LINE FLUSH medications reviewed/updated as required Review of Systems - Review of Systems All systems: negative Gastrointestinal: abdominal pain (epigastric), nausea, vomiting, diarrhea, BRBPR, heartburn Exam - Constitutional Vital Signs: Temp Pulse Resp BP Pulse Ox 97.6 F 93 H 21 124/63 100 06/28/18 20:58 06/29/18 09:00 06/29/18 09:00 06/29/18 09:00 06/29/18 08:46 General appearance: no acute distress - Respiratory Respiratory: bilateral: diminished - Cardiovascular Rhythm: regular Heart Sounds: Present: S1 & S2 - Gastrointestinal General gastrointestinal: Present: soft, non-tender, non-distended, normal bowel sounds - Neurologic Neurological: alert and oriented x3 - Labs CBC & Chem 7: 06/29/18 08:45 06/29/18 09:40 Lab Results: Laboratory Results - last 24 hr 06/28/18 06/28/18 06/28/18 04:27 21:34 21:34 WBC 6.7 RBC 4.42 Hgb 11.4 L Hct 34.7 L MCV 79 L MCH 26 L MCHC 33 RDW 16.9 H Plt Count 233 Lymph % (Auto) 13.5 [place] % (Auto) 7.1 Eos % (Auto) 1.6 Baso % (Auto) 0.8 Lymph # 0.9 L [place] # 0.5 Eos # 0.1 Baso # 0.1 Seg Neutrophils % 77.0 H Seg Neutrophils # 5.2 Sodium Potassium Chloride Carbon Dioxide Anion Gap BUN Creatinine Estimated GFR BUN/Creatinine Ratio Glucose Osmolality 259 Uric Acid Calcium Total Bilirubin AST ALT Alkaline Phosphatase Total Protein Albumin Albumin/Globulin Ratio Lipase 119 H TSH Urine Color Urine Turbidity Urine pH Ur Specific [place] Urine Protein Urine Glucose (UA) Urine Ketones Urine Blood Urine Nitrite Urine Bilirubin Urine Urobilinogen Ur Leukocyte Esterase Urine WBC (Auto) Urine RBC (Auto) Urine Bacteria (Auto) Urine Osmolality Urine Sodium Urine Chloride 06/28/18 06/29/18 06/29/18 21:34 06:25 06:25 WBC RBC Hgb Hct MCV MCH MCHC RDW Plt Count Lymph % (Auto) Doug[place] % (Auto) Eos % (Auto) Baso % (Auto) Lymph # Dougherty # Eos # Baso # Seg Neutrophils % Seg Neutrophils # Sodium 117 L* Potassium 4.8 Chloride 78.3 L Carbon Dioxide 24 Anion Gap 20 BUN 13 Creatinine 1.3 Estimated GFR 54 BUN/Creatinine Ratio 10 Glucose 212 H Osmolality Uric Acid Calcium 8.7 Total Bilirubin 0.30 AST 12 ALT 9 Alkaline Phosphatase 96 Total Protein 7.2 Albumin 3.8 L Albumin/Globulin Ratio 1.1 Lipase TSH Urine Color Yellow Urine Turbidity Clear Urine pH 7.0 Ur Specific [place] 1.006 Urine Protein 30 mg/dl Urine Glucose (UA) Neg Urine Ketones Neg Urine Blood Sm Urine Nitrite Neg Urine Bilirubin Neg Urine Urobilinogen < 2.0 Ur Leukocyte Esterase Neg Urine WBC (Auto) < 1.0 Urine RBC (Auto) 2.0 Urine Bacteria (Auto) 1+ Urine Osmolality 270 Urine Sodium 58 Urine Chloride 35.5 L 06/29/18 06/29/18 06/29/18 08:45 08:45 09:21 WBC 7.3 RBC 4.24 Hgb 11.1 L Hct 33.5 L MCV 79 L MCH 26 L MCHC 33 RDW 16.8 H Plt Count 247 Lymph % (Auto) [place] % (Auto) Eos % (Auto) Baso % (Auto) Lymph # Dougherty # Eos # Baso # Seg Neutrophils % Seg Neutrophils # Sodium 118 L* Potassium 6.3 H* D Chloride 86.8 L Carbon Dioxide 19 L Anion Gap 19 BUN 12 Creatinine 1.2 Estimated GFR 60 BUN/Creatinine Ratio 10 Glucose 66 L Osmolality Uric Acid Calcium 7.6 L Total Bilirubin AST ALT Alkaline Phosphatase Total Protein Albumin Albumin/Globulin Ratio Lipase TSH 3.440 Urine Color Urine Turbidity Urine pH Ur Specific [place] Urine Protein Urine Glucose (UA) Urine Ketones Urine Blood Urine Nitrite Urine Bilirubin Urine Urobilinogen Ur Leukocyte Esterase Urine WBC (Auto) Urine RBC (Auto) Urine Bacteria (Auto) Urine Osmolality Urine Sodium Urine Chloride 06/29/18 06/29/18 06/29/18 09:22 09:40 12:30 WBC RBC Hgb Hct MCV MCH MCHC RDW Plt Count Lymph % (Auto) [place] % (Auto) Eos % (Auto) Baso % (Auto) Lymph # Dougherty # Eos # Baso # Seg Neutrophils % Seg Neutrophils # Sodium 121 L Potassium 4.6 D Chloride 88.2 L Carbon Dioxide 20 L Anion Gap 17 BUN 12 Creatinine 1.2 Estimated GFR 60 BUN/Creatinine Ratio 10 Glucose 65 L Osmolality Uric Acid 5.8 Calcium 7.8 L Total Bilirubin AST ALT Alkaline Phosphatase Total Protein Albumin Albumin/Globulin Ratio Lipase TSH Urine Color Urine Turbidity Urine pH Ur Specific [place] Urine Protein Urine Glucose (UA) Urine Ketones Urine Blood Urine Nitrite Urine Bilirubin Urine Urobilinogen Ur Leukocyte Esterase Urine WBC (Auto) Urine RBC (Auto) Urine Bacteria (Auto) Urine Osmolality 262 Urine Sodium 40 Urine Chloride Assessment and Plan 1.N/V 2.epigastric pain -CT showed esophagitis -etiology-possibly related to GERD vs other -start on PPI -okay for clear liquids -consider EGD based on progress -optimize glycemic control -continue supportive care 3.diarrhea (BMs x 3/day with bloody stool-no change in baseline) 4.H/o Crohn's disease (off treatment since ~2013) -H/H 11.1/33.5-continue to monitor H/H and transfuse as needed -CT showed circumferential mucosal thickening in the descending colon and proximal sigmoid compatible with colitis -colonoscopy in 2008 showed inflamed and ulcerated mucosa in the entire colon -MR enterography 11/2017 at [place]- showed active crohns ileitis (10-15cm Terminal Ileum w/o fistula or abscess), along with additional segmental areas of edema in cecum, rectosigmoid-descending junction, and mass like thickening in descending colon -etiology-likely 2/2 active Crohn's disease vs infectious etiology (doubt given history) -will order stool studies to r/o infection -consider starting on steroids once infection is r/o as above -CRP in am -no plans for colonoscopy at this time, will need in the future (inpt vs outpt?) for further evaluation of above results/staging -continue empiric antibiotics and supportive care -will follow <BRYANT MACHADO - Last Filed: 06/29/18 14:32> Medications and Allergies Active Meds: Active Medications Acetaminophen (Tylenol) 650 mg PO Q4H PRN PRN Reason: Pain MILD(1-3)/Fever >100.5/MANCILLA Albuterol (Proventil) 2.5 mg IH Q4HRT PRN PRN Reason: Shortness Of Breath Sodium Chloride (Nacl 0.9% 1000 Ml) 1,000 mls @ 125 mls/hr IV DIRECT PRAVIN Last Admin: 06/29/18 11:33 Dose: 125 mls/hr Documented by: Levofloxacin/Dextrose (Levaquin 500mg/100ml) 500 mg in 100 mls @ 100 mls/hr IV Q24HR PRAVIN; Protocol Metronidazole (Flagyl 500 Mg/100 Ml) 500 mg in 100 mls @ 100 mls/hr IV Q8HR PRAVIN; Protocol Morphine Sulfate (Morphine) 2 mg IV Q4H PRN PRN Reason: Pain, Moderate (4-6) Ondansetron HCl (Zofran) 4 mg IV Q8H PRN PRN Reason: Nausea And Vomiting Pantoprazole Sodium (Protonix) 40 mg IV QDAY PRAVIN Sodium Chloride (Sodium Chloride Flush Syringe 10 Ml) 10 ml IV BID PRAVIN Sodium Chloride (Sodium Chloride Flush Syringe 10 Ml) 10 ml IV PRN PRN PRN Reason: LINE FLUSH Exam - Constitutional Vital Signs: Temp Pulse Resp BP Pulse Ox 97.6 F 93 H 21 124/63 100 06/28/18 20:58 06/29/18 09:00 06/29/18 09:00 06/29/18 09:00 06/29/18 08:46 - Labs CBC & Chem 7: 06/29/18 08:45 06/29/18 11:23 Lab Results: Laboratory Results - last 24 hr 06/28/18 06/28/18 06/28/18 04:27 21:34 21:34 WBC 6.7 RBC 4.42 Hgb 11.4 L Hct 34.7 L MCV 79 L MCH 26 L MCHC 33 RDW 16.9 H Plt Count 233 Lymph % (Auto) 13.5 [place] % (Auto) 7.1 Eos % (Auto) 1.6 Baso % (Auto) 0.8 Lymph # 0.9 L Dougherty # 0.5 Eos # 0.1 Baso # 0.1 Seg Neutrophils % 77.0 H Seg Neutrophils # 5.2 Sodium Potassium Chloride Carbon Dioxide Anion Gap BUN Creatinine Estimated GFR BUN/Creatinine Ratio Glucose Osmolality 259 Uric Acid Calcium Total Bilirubin AST ALT Alkaline Phosphatase Total Protein Albumin Albumin/Globulin Ratio Lipase 119 H TSH Urine Color Urine Turbidity Urine pH Ur Specific [place] Urine Protein Urine Glucose (UA) Urine Ketones Urine Blood Urine Nitrite Urine Bilirubin Urine Urobilinogen Ur Leukocyte Esterase Urine WBC (Auto) Urine RBC (Auto) Urine Bacteria (Auto) Urine Osmolality Urine Sodium Urine Chloride 06/28/18 06/29/18 06/29/18 21:34 06:25 06:25 WBC RBC Hgb Hct MCV MCH MCHC RDW Plt Count Lymph % (Auto) [place] % (Auto) Eos % (Auto) Baso % (Auto) Lymph # Dougherty # Eos # Baso # Seg Neutrophils % Seg Neutrophils # Sodium 117 L* Potassium 4.8 Chloride 78.3 L Carbon Dioxide 24 Anion Gap 20 BUN 13 Creatinine 1.3 Estimated GFR 54 BUN/Creatinine Ratio 10 Glucose 212 H Osmolality Uric Acid Calcium 8.7 Total Bilirubin 0.30 AST 12 ALT 9 Alkaline Phosphatase 96 Total Protein 7.2 Albumin 3.8 L Albumin/Globulin Ratio 1.1 Lipase TSH Urine Color Yellow Urine Turbidity Clear Urine pH 7.0 Ur Specific [place] 1.006 Urine Protein 30 mg/dl Urine Glucose (UA) Neg Urine Ketones Neg Urine Blood Sm Urine Nitrite Neg Urine Bilirubin Neg Urine Urobilinogen < 2.0 Ur Leukocyte Esterase Neg Urine WBC (Auto) < 1.0 Urine RBC (Auto) 2.0 Urine Bacteria (Auto) 1+ Urine Osmolality 270 Urine Sodium 58 Urine Chloride 35.5 L 06/29/18 06/29/18 06/29/18 08:45 08:45 09:21 WBC 7.3 RBC 4.24 Hgb 11.1 L Hct 33.5 L MCV 79 L MCH 26 L MCHC 33 RDW 16.8 H Plt Count 247 Lymph % (Auto) [place] % (Auto) Eos % (Auto) Baso % (Auto) Lymph # Dougherty # Eos # Baso # Seg Neutrophils % Seg Neutrophils # Sodium 118 L* Potassium 6.3 H* D Chloride 86.8 L Carbon Dioxide 19 L Anion Gap 19 BUN 12 Creatinine 1.2 Estimated GFR 60 BUN/Creatinine Ratio 10 Glucose 66 L Osmolality Uric Acid Calcium 7.6 L Total Bilirubin AST ALT Alkaline Phosphatase Total Protein Albumin Albumin/Globulin Ratio Lipase TSH 3.440 Urine Color Urine Turbidity Urine pH Ur Specific [place] Urine Protein Urine Glucose (UA) Urine Ketones Urine Blood Urine Nitrite Urine Bilirubin Urine Urobilinogen Ur Leukocyte Esterase Urine WBC (Auto) Urine RBC (Auto) Urine Bacteria (Auto) Urine Osmolality Urine Sodium Urine Chloride 06/29/18 06/29/18 06/29/18 09:22 09:40 11:23 WBC RBC Hgb Hct MCV MCH MCHC RDW Plt Count Lymph % (Auto) [place] % (Auto) Eos % (Auto) Baso % (Auto) Lymph # Dougherty # Eos # Baso # Seg Neutrophils % Seg Neutrophils # Sodium 121 L 122 L Potassium 4.6 D 4.5 Chloride 88.2 L 91.0 L Carbon Dioxide 20 L 16 L Anion Gap 17 20 BUN 12 12 Creatinine 1.2 1.2 Estimated GFR 60 60 BUN/Creatinine Ratio 10 10 Glucose 65 L 68 L Osmolality Uric Acid 5.8 Calcium 7.8 L 7.9 L Total Bilirubin AST ALT Alkaline Phosphatase Total Protein Albumin Albumin/Globulin Ratio Lipase TSH Urine Color Urine Turbidity Urine pH Ur Specific [place] Urine Protein Urine Glucose (UA) Urine Ketones Urine Blood Urine Nitrite Urine Bilirubin Urine Urobilinogen Ur Leukocyte Esterase Urine WBC (Auto) Urine RBC (Auto) Urine Bacteria (Auto) Urine Osmolality Urine Sodium Urine Chloride 06/29/18 12:30 WBC RBC Hgb Hct MCV MCH MCHC RDW Plt Count Lymph % (Auto) [place] % (Auto) Eos % (Auto) Baso % (Auto) Lymph # Dougherty # Eos # Baso # Seg Neutrophils % Seg Neutrophils # Sodium Potassium Chloride Carbon Dioxide Anion Gap BUN Creatinine Estimated GFR BUN/Creatinine Ratio Glucose Osmolality Uric Acid Calcium Total Bilirubin AST ALT Alkaline Phosphatase Total Protein Albumin Albumin/Globulin Ratio Lipase TSH Urine Color Urine Turbidity Urine pH Ur Specific [place] Urine Protein Urine Glucose (UA) Urine Ketones Urine Blood Urine Nitrite Urine Bilirubin Urine Urobilinogen Ur Leukocyte Esterase Urine WBC (Auto) Urine RBC (Auto) Urine Bacteria (Auto) Urine Osmolality 262 Urine Sodium 40 Urine Chloride Assessment and Plan Pt seen and examined. Complains of epigastric pain with N/V with po intake x approx 3 wks. Possible Crohn's as noted above. Pt states he had been on mesalamine from Dr. Brink in the past and done well. Also, could have an ischemic component or a biliary component. Plan as above. - will also check GB ultrasound - eventually do colonoscopy if Cardiac status allows, probably as outpatient - may consider empirically starting mesalamine.
[2018-06-29 14:03] LABS: Calcium 7.9 mg/dL (8.4-10.2)
[2018-06-29] MEDS ORDERED: PROTONIX IV SCH (15:00)
[2018-06-29] MEDS ORDERED: FLAGYL 500 MG/100 ML 500 MG/100 ML BAG IV SCH (16:00)
--- NOTE | 2018-06-29 17:21 | Event Note ---
Date: 06/29/18 Patient left against medical advice.
--- NOTE | 2018-06-29 17:21 | Discharge Summary ---
Providers - Providers Date of Admission: 06/29/18 07:57 Date of discharge: 06/29/18 Attending physician: DADA HART 06/29/18 08:21 Consult to Physician [CONS] Routine Comment: Dr. Ramos notified @ 08:33- [facility] Consulting Provider: MAYRA RAMOS Physician Instructions: Reason For Exam: hyponatremia 06/29/18 09:31 Consult to Physician [CONS] Routine Comment: WENDY Consulting Provider: BRYANT MACHADO Physician Instructions: CONSULT WAS CALLED TO VIPIN Reason For Exam: colitis Primary care physician: MARIANO ANN Hospitalization Condition: Undetermined Hospital course: Patient is 73 yo with CAD s/p CABG, cardiomyopathy, chronic systolic CHF, diabetes, hypertension. He presented with abdominal pain, nausea, vomiting, diarrheal for 2 weeks. Abdominal pain is 10 out of 10 in intensity, mid abdomen, sharp pain, with no radiation. he also complains of vomiting 2-3 times a day for 2 weeks and watery diarrhea 4-6 times a day for 2 weeks. Patient was evaluated in ED found to have hyponatremia with Na [address]. He was started on NS, iv Antibiotics and admitted. Nephrology and GI Physician were consulted. However few hours later he suddenly signed against medical advice and left. Disposition: [id number] LEFT AGAINST MED ADVICE - Discharge Diagnoses (1) Chronic systolic (congestive) heart failure Status: Acute (2) Coronary artery disease Status: Acute Qualifiers: Coronary Disease-Associated Artery/Lesion type: [place] artery [place] vs. transplanted heart: [place] heart Associated angina: with unstable angina Qualified Code(s): I25.110 - Atherosclerotic heart disease of [place] coronary artery with unstable angina pectoris (3) Hyponatremia Status: Acute (4) HTN (hypertension) Status: Acute (5) Diabetes mellitus type 2 in nonobese Status: Acute (6) Left against medical advice Status: Acute (7) Acute colitis Status: Acute Core Measure Documentation - Palliative Care Palliative Care/ Comfort Measures: Not Applicable - Core Measures Any of the following diagnoses?: heart failure - Heart Failure Discharge Requirements MIKKI/ARB for LVSD if EF <40%: Yes Beta tracy at discharge: Yes Exam - Constitutional Vitals: Temp Pulse Resp BP Pulse Ox 97.8 F 66 18 142/67 100 06/29/18 13:32 06/29/18 13:32 06/29/18 13:32 06/29/18 13:32 06/29/18 13:32 Plan Follow up with: MARIANO ANN MD [Primary Care Provider] - 3-5 Days
[2018-06-29 17:43] VITALS: BP 142/67
== END 2018-06-29 16:52 | disposition left against medical advice (07) | DRG 392 ==
LOC: ED 20:40 → 2B-ACE 06-29 07:57
PROVIDERS: ADMIT Internal Medicine; ATTEND Internal Medicine
DX: K52.9 Noninfective gastroenteritis and colitis, unspecified (principal); E87.1 Hypo-osmolality and hyponatremia; G82.20 Paraplegia, unspecified; I50.22 Chronic systolic (congestive) heart failure; K50.90 Crohn's disease, unspecified, without complications; I11.0 Hypertensive heart disease with heart failure; I25.5 Ischemic cardiomyopathy; F17.200 Nicotine dependence, unspecified, uncomplicated; E86.0 Dehydration; J44.9 Chronic obstructive pulmonary disease, unspecified; Z95.5 Presence of coronary angioplasty implant and graft; I69.369 Other paralytic syndrome following cerebral infarction affecting unspecified side; Z95.1 Presence of aortocoronary bypass graft; Z79.82 Long term (current) use of aspirin; Z79.4 Long term (current) use of insulin
CPT/HCPCS: 36415; 74177; 80048; 80053; 81001; 82436; 83690; 83930; 83935; 84300; 84443; 84550; 85025; 85027; 93005; 93010; G0378; C9113; J2270; J2405; J7030; J7050; Q9967

== ENCOUNTER 2018-07-30 17:39 | Observation (INO) | payer MEDICARE ==
--- NOTE | 2018-07-30 18:10 | Emergency Department Report ---
Blank Doc - Documentation Documentation: This is a 73-year-old male that presents with abdominal pain with nausea vomit ing x2 weeks. This initial assessment/diagnostic orders/clinical plan/treatment(s) is/are subject to change based on patient's health status, clinical progression and re- assessment by fellow clinical providers in the ED. Further treatment and workup at subsequent clinical providers discretion. Patient/guardians urged not to elope from the ED as their condition may be serious if not clinically assessed and managed. Initial orders include: 1- Patient sent to MAIN ED for further evaluation and treatment 2- Labs 3- UA
[2018-07-30 18:33] LABS: Basophils % (Auto) 0.5 % (0.0-1.8); Eosinophils # (Auto) 0.1 K/mm3 (0.0-0.4); Eosinophils % (Auto) 1.3 % (0.0-4.3); Hematocrit 35.9 % (35.5-45.6); Hemoglobin 12.4 gm/dl (11.8-15.2); Lymphocytes # (Auto) 1.1 K/mm3 (1.2-5.4); Lymphocytes % (Auto) 17.6 % (13.4-35.0); Mean Corpuscular HGB Conc 35 % (32-34); Mean Corpuscular Volume 78 fl (84-94); Monocytes # (Auto) 0.4 K/mm3 (0.0-0.8); Monocytes % (Auto) 6.5 % (0.0-7.3); Platelet Count 255 K/mm3 (140-440); Red Cell Distribution Width 18.6 % (13.2-15.2)
[2018-07-30 18:52] LABS: Alanine Aminotransferase 11 units/L (7-56); Albumin 4.4 g/dL (3.9-5); BUN/Creatinine Ratio 11; Blood Urea Nitrogen 12 mg/dL (9-20); Calcium 9.3 mg/dL (8.4-10.2); Hemolysis Index 1
[2018-07-30 18:55] LABS: Bilirubin,Direct < 0.2 mg/dL (0-0.2)
[2018-07-30] MEDS ORDERED: PEPCID IV ONE (20:34)
[2018-07-30] MEDS ORDERED: ZOFRAN IV ONE (20:34)
[2018-07-30] MEDS ORDERED: NACL 0.9% IV STA (20:35)
--- NOTE | 2018-07-30 20:37 | Emergency Department Report ---
ED General Adult HPI - General Chief complaint: Abdominal Pain Stated complaint: ABDOMINAL PAIN Time Seen by Provider: 07/30/18 18:09 Source: patient, RN notes reviewed, old records reviewed Mode of arrival: Ambulatory Limitations: No Limitations - History of Present Illness Initial comments: This is a 73-year-old gentleman. The patient cannot recall the name of his primary care doctor. His past medical history includes CT scan suggested esophagitis, colitis, Crohn's disease, heart disease, diabetes, hypertension, high cholesterol, COPD, tobacco consumption, he reports that he is not currently on immune modulating medication. Patient recently admitted to this hospital June 2018, and apparently signed out AGAINST MEDICAL ADVICE. During that recent hospitalization, he was found to have hyponatremia and CT scan suggesting colitis. He presents to the ER today with a complaint of 2-3 weeks of abdominal cramping, and nausea and vomiting. He vomited 3 times today, nonbloody, nonbilious. He reports that he came to the emergency room today because "my midwife told me to come in because I was dehydrated." He denies headache, neck pain, chest pain, shortness of breath, urinary symptoms. He denies nausea currently. He reports that he is willing to stay in the hospital overnight, but "that is it." The patient refused to change into a gown. -: Gradual Location: abdomen Severity scale (0 -10): 0 Quality: aching Consistency: intermittent Improves with: cold therapy Worsens with: none Associated Symptoms: nausea/vomiting - Related Data Home Medications Medication Instructions Recorded Confirmed Last Taken Insulin Regular, Human [HumuLIN R] 10 units SQ TIDAC #0 05/06/16 01/15/18 09/16/16 7 units Gabapentin 300 mg PO BID 09/19/16 01/15/18 09/18/16 300mg Glimepiride [Amaryl] 4 mg PO QAM 03/28/17 01/15/18 Unknown Metformin HCl [Metformin HCl ER] 500 mg PO BIDWM 03/28/17 01/15/18 Unknown Diphenoxylate/Atropine [Lomotil] 1 tab PO Q8H PRN 01/15/18 01/15/18 Unknown Insulin Lispro [HumaLOG VIAL] See Protocol SQ ACHS 01/15/18 01/15/18 Unknown Promethazine [Phenergan TAB] 25 mg PO Q4H PRN 01/15/18 01/15/18 Unknown Previous Rx's Medication Instructions Recorded Last Taken Type AtorvaSTATin [Lipitor] 10 mg PO QHS #30 tablet 12/21/17 Unknown Rx Metoprolol Xl [Metoprolol 25 mg PO DAILY #60 tablet 12/21/17 Unknown Rx SUCCINATE ER TAB] Ranolazine ER [Ranexa ER] 500 mg PO BID #60 tablet 12/21/17 Unknown Rx Lisinopril [Zestril TAB] 20 mg PO QDAY #30 tablet 01/01/18 Unknown Rx Aspirin [Aspirin TAB] 325 mg PO QDAY #30 tablet 01/12/18 Unknown Rx Furosemide [Lasix TAB] 20 mg PO QDAY #30 tablet 01/12/18 Unknown Rx levoFLOXacin [Levaquin TAB] 500 mg PO QDAY #7 tablet 01/16/18 Unknown Rx metroNIDAZOLE [Flagyl] 500 mg PO Q8HR #21 tablet 01/16/18 Unknown Rx Allergies Allergy/AdvReac Type Severity Reaction Status Date / Time Sulfa (Sulfonamide Allergy Rash Verified 07/30/18 17:44 Antibiotics) ED Review of Systems ROS: Stated complaint: ABDOMINAL PAIN Other details as noted in HPI Constitutional: denies: fever, malaise Eyes: denies: vision change ENT: denies: epistaxis Respiratory: denies: cough Cardiovascular: denies: chest pain Gastrointestinal: abdominal pain, nausea, vomiting. denies: hematemesis, melena, hematochezia Genitourinary: denies: dysuria Musculoskeletal: denies: back pain Skin: denies: lesions Neurological: denies: weakness Psychiatric: denies: anxiety ED Past Medical Hx - Past Medical History Hx Hypertension: Yes Hx CVA: Yes (x2 bilateral weakness,walks with walker) Hx Heart Attack/AMI: Yes (x 5) Hx Congestive Heart Failure: Yes (ischemic cardiopathy with the EF of 15-20%) Hx Diabetes: Yes Hx Deep Vein Thrombosis: No Hx Pulmonary Embolism: No Hx Arthritis: Yes Hx Seizures: No Hx Asthma: No Hx COPD: Yes Hx Tuberculosis: No Hx Dementia: No Hx HIV: No Additional medical history: crohns, pneumonia. Diverticulitis - Surgical History Hx Coronary Stent: Yes (x 6) Hx Pacemaker: No Hx Internal Defibrillator: No Additional Surgical History: angioplasty x 6 - Social History Smoking Status: Current Every Day Smoker Substance Use Type: None - Medications Home Medications: Home Medications Medication Instructions Recorded Confirmed Last Taken Type Insulin Regular, Human [HumuLIN R] 10 units SQ TIDAC #0 05/06/16 01/15/18 09/16/16 History 7 units Gabapentin 300 mg PO BID 09/19/16 01/15/18 09/18/16 History 300mg Glimepiride [Amaryl] 4 mg PO QAM 03/28/17 01/15/18 Unknown History Metformin HCl [Metformin HCl ER] 500 mg PO BIDWM 03/28/17 01/15/18 Unknown Histo ry AtorvaSTATin [Lipitor] 10 mg PO QHS #30 tablet 12/21/17 01/15/18 Unknown Rx Metoprolol Xl [Metoprolol 25 mg PO DAILY #60 tablet 12/21/17 01/15/18 Unknown Rx SUCCINATE ER TAB] Ranolazine ER [Ranexa ER] 500 mg PO BID #60 tablet 12/21/17 01/15/18 Unknown Rx Lisinopril [Zestril TAB] 20 mg PO QDAY #30 tablet 01/01/18 01/15/18 Unknown Rx Aspirin [Aspirin TAB] 325 mg PO QDAY #30 tablet 01/12/18 01/15/18 Unknown Rx Furosemide [Lasix TAB] 20 mg PO QDAY #30 tablet 01/12/18 01/15/18 Unknown Rx Diphenoxylate/Atropine [Lomotil] 1 tab PO Q8H PRN 01/15/18 01/15/18 Unknown History Insulin Lispro [HumaLOG VIAL] See Protocol SQ ACHS 01/15/18 01/15/18 Unknown History Promethazine [Phenergan TAB] 25 mg PO Q4H PRN 01/15/18 01/15/18 Unknown History levoFLOXacin [Levaquin TAB] 500 mg PO QDAY #7 tablet 01/16/18 Unknown Rx metroNIDAZOLE [Flagyl] 500 mg PO Q8HR #21 tablet 01/16/18 Unknown Rx ED Physical Exam - General Limitations: No Limitations General appearance: alert, in no apparent distress - Head Head exam: Present: atraumatic, normocephalic - Eye Eye exam: Present: normal appearance, EOMI. Absent: nystagmus - ENT ENT exam: Present: normal exam, normal orophraynx, mucous membranes moist, normal external ear exam - Neck Neck exam: Present: normal inspection, full ROM. Absent: tenderness, meningismus - Respiratory Respiratory exam: Present: normal lung sounds bilaterally. Absent: respiratory distress - Cardiovascular Cardiovascular Exam: Present: regular rate, normal rhythm, normal heart sounds. Absent: bradycardia, tachycardia, irregular rhythm, systolic murmur, diastolic murmur, rubs, gallop - GI/Abdominal GI/Abdominal exam: Present: soft. Absent: distended, tenderness, guarding, rebound, rigid, pulsatile mass - Rectal Rectal exam: Present: deferred - Extremities Exam Extremities exam: Present: normal inspection, full ROM, other (2+ pulses noted in the bilateral upper, lower extremities. Compartments soft. No long bony tenderness. The pelvis is stable.). Absent: pedal edema, joint swelling, calf tenderness - Back Exam Back exam: Present: normal inspection, full ROM. Absent: tenderness, CVA tenderness (R), paraspinal tenderness, vertebral tenderness - Neurological Exam Neurological exam: Present: alert, oriented X3, other (Extraocular movements intact. Tongue midline. No facial droop. Facial sensation intact to light touch in the V1, V2, V3 distribution bilaterally. 5 and 5 strength in 4 extremities.. Sensation is intact to light touch in 4 extremities.). Absent: motor sensory deficit - Psychiatric Psychiatric exam: Present: normal affect, normal mood - Skin Skin exam: Present: warm, dry, intact, normal color. Absent: rash ED Course Vital Signs 07/30/18 07/30/18 07/30/18 18:10 20:34 20:35 Temperature 98.4 F 98.4 F Pulse Rate 90 75 Respiratory 16 17 17 Rate Blood Pressure 176/80 152/77 [Left] O2 Sat by Pulse 99 100 100 Oximetry 07/30/18 22:10 Temperature Pulse Rate 73 Respiratory 17 Rate Blood Pressure 157/68 [Left] O2 Sat by Pulse 100 Oximetry - Reevaluation(s) Reevaluation #1: 07/30/18 20:43 Differential diagnosis, including but not limited to: Dehydration, colitis, en teritis, esophagitis, pancreatitis Assessment and plan: 73-year-old gentleman with recurrent abdominal pain, recurrent nausea and vomiting, who is afebrile, with reassuring vital signs, clinically sober at this time, and exhibits decision-making capacity. Once again, laboratory studies demonstrate hyponatremia, and this is most likely hypovolemic, hyponatremia. His EKG appears to be unchanged from prior. He will be treated supportively, we will give him a small bolus of IV fluids, we will repeat a CAT scan of his abdomen and pelvis, and I've recommended admission to the hospital. The patient reports he is amenable to an overnight hospitalization. Reevaluation #2: 07/30/18 22:[address] scan of the abdomen and pelvis within the past [address] scan of the abdomen and pelvis today demonstrates no acute disease or pathology. An incidental small AAA is noted, 3.4 4 cm, does not require emergent consultation or evaluation at this time. Case presented to the Hospital physician, Dr. Lizbet Dillon, who accept the patient to the medical service for presumed hypovolemic hyponatremia. ED Medical Decision Making - Lab Data Result diagrams: 07/30/18 18:13 07/30/18 18:13 Vital Signs 07/30/18 07/30/18 07/30/18 18:10 20:34 20:35 Temperature 98.4 F 98.4 F Pulse Rate 90 75 Respiratory 16 17 17 Rate Blood Pressure 176/80 152/77 [Left] O2 Sat by Pulse 99 100 100 Oximetry Vital Signs 07/30/18 07/30/18 07/30/18 18:10 20:34 20:35 Temperature 98.4 F 98.4 F Pulse Rate 90 75 Respiratory 16 17 17 Rate Blood Pressure 176/80 152/77 [Left] O2 Sat by Pulse 99 100 100 Oximetry Lab Results 07/30/18 07/30/18 Range/Units 18:13 18:13 WBC 6.0 (4.5-11.0) K/mm3 RBC 4.60 (3.65-5.03) M/mm3 Hgb 12.4 (11.8-15.2) gm/dl Hct 35.9 (35.5-45.6) % MCV 78 L (84-94) fl MCH 27 L (28-32) pg MCHC 35 H (32-34) % RDW 18.6 H (13.2-15.2) % Plt Count 255 (140-440) K/mm3 Lymph % (Auto) 17.6 (13.4-35.0) % [place] % (Auto) 6.5 (0.0-7.3) % Eos % (Auto) 1.3 (0.0-4.3) % Baso % (Auto) 0.5 (0.0-1.8) % Lymph # 1.1 L (1.2-5.4) K/mm3 [place] # 0.4 (0.0-0.8) K/mm3 Eos # 0.1 (0.0-0.4) K/mm3 Baso # 0.0 (0.0-0.1) K/mm3 Seg Neutrophils % 74.1 H (40.0-70.0) % Seg Neutrophils # 4.5 (1.8-7.7) K/mm3 Sodium 120 L (137-145) mmol/L Potassium 4.7 (3.6-5.0) mmol/L Chloride 80.9 L (98-107) mmol/L Carbon Dioxide 25 (22-30) mmol/L Anion Gap 18 mmol/L BUN 12 (9-20) mg/dL Creatinine 1.1 (0.8-1.5) mg/dL Estimated GFR > 60 ml/min BUN/Creatinine Ratio 11 % Glucose 135 H (75-100) mg/dL Calcium 9.3 (8.4-10.2) mg/dL Total Bilirubin 0.50 (0.1-1.2) mg/dL Direct Bilirubin < 0.2 (0-0.2) mg/dL Indirect Bilirubin 0.3 mg/dL AST 12 (5-40) units/L ALT 11 (7-56) units/L Alkaline Phosphatase 106 (35-129) units/L Total Protein 8.1 (6.3-8.2) g/dL Albumin 4.4 (3.9-5) g/dL Albumin/Globulin Ratio 1.2 % Lipase 142 H (13-60) units/L - EKG Data -: EKG Interpreted by Al EKG shows normal: sinus rhythm Rate: normal - EKG Data 07/30/18 20:45 Sinus rhythm, left axis deviation, right bundle branch block, left anterior fascicular block, QTC prolonged, motion artifact, abnormal EKG, not consistent with ST elevation myocardial infarction, this EKG is unchanged from prior EKG from June 2018. - Radiology Data Radiology results: pending, report reviewed, image reviewed Critical care attestation.: If time is entered above; I have spent that time in minutes in the direct care of this critically ill patient, excluding procedure time. ED Disposition Clinical Impression: Hyponatremia, Abdominal pain Disposition: DC-09 OP ADMIT IP TO THIS HOSP Is pt being admited?: Yes Condition: Good Referrals: ROSENDO DIALLO MD [Primary Care Provider] - 3-5 Days
--- NOTE | 2018-07-30 22:05 | Cat Scan Report ---
PROCEDURE: CT abdomen and pelvis without contrast. TECHNIQUE: Computerized axial tomography of the abdomen and pelvis was performed without intravenous contrast. This study is performed without intravascular contrast material and its sensitivity for ab dominal and pelvic pathology, including neoplasms, inflammation, abscess, free fluid, thrombosis, art erial dissection and infarction, is reduced compared with a contrast enhanced study. CT DOSE LENGTH PRODUCT: 1527.78 mGycm HISTORY: Abdominal pain, nausea and vomiting. COMPARISONS: None. FINDINGS: The lung bases are clear. There are no pleural effusions. The heart size is normal. The liver, pancre as and spleen appear normal. The gallbladder is present. The adrenal glands are not enlarged. Both ki dneys appear normal in size and configuration. There is a small distal abdominal aortic aneurysm with a maximum diameter of 3.4 cm. There is no retroperitoneal adenopathy. The unopacified gastrointestin al tract is unremarkable. A normal appendix is visible. The bladder, seminal vesicles and prostate ap pear normal. The regional skeleton appears intact. IMPRESSION: Small abdominal aortic aneurysm. No evidence of acute disease in the abdomen or pelvis. This document is electronically signed by Shawn Block MD., July 30 2018 10:02:54 PM ET
[2018-07-30 22:20] LABS: Bilirubin,Urine NEG (Negative); Blood,Urine NEG (Negative); Color,Urine Yellow (Yellow); WBC,Urine < 1.0 /HPF (0.0-6.0)
[2018-07-30 22:23] LABS: Creatinine,Urine 81.9 mg/dL (0.1-20.0)
[2018-07-30] MEDS ORDERED: MORPHINE IV PRN (23:26)
[2018-07-30] MEDS ORDERED: ZOFRAN IV PRN (23:26)
[2018-07-30] MEDS ORDERED: TYLENOL PO PRN (23:28)
[2018-07-31 00:11] LABS: Calcium 8.6 mg/dL (8.4-10.2)
--- NOTE | 2018-07-31 04:20 | History and Physical Report ---
CHIEF COMPLAINT: Abdominal pain. Other complaints include nausea and vomiting. HISTORY OF PRESENT ILLNESS: The patient is a 73-year-old male who started having abdominal pain, which he described as cramping going on for about 2-3 weeks associated with recent nausea and vomiting. He said he vomited 3 times on 07/30/2018 before presenting to the Emergency Room. The vomitus is nonbloody, nonbilious. The patient said he found that he was dehydrated. The patient was admitted about 2-3 weeks ago in this hospital because of hyponatremia and colitis found on CT scan. The patient left AMA and presents today feeling that he is dehydrated. He has no history of fever or chills. No history of shortness of breath or chest pain. Also, the patient denied history of dizziness and said that he is willing to stay in hospital at this time without signing AMA. PAST MEDICAL HISTORY: Pertinent for hypertension; cerebrovascular accident; coronary artery disease, status post myocardial infarction; congestive heart failure; diabetes mellitus; arthritis; COPD; Crohn's disease; pneumonia; diverticulitis; hyponatremia; and colitis. PAST SURGICAL HISTORY: Pertinent for coronary artery stent placement and angioplasty x 6. FAMILY HISTORY: Noncontributory. SOCIAL HISTORY: The patient smokes cigarettes, does not drink alcohol, and does not use illicit drugs. MEDICATIONS: The patient is on the following medications, insulin, Humulin 10 units subcutaneous t.i.d. before meals, gabapentin 300 mg by mouth twice daily, Amaryl 4 mg by mouth every morning, metformin 500 mg by mouth twice daily, Lipitor 10 mg by mouth at bedtime, metoprolol 25 mg by mouth daily, ranolazine 500 mg by mouth twice daily, Zestril 20 mg by mouth daily, aspirin 325 mg by mouth daily, Lasix 20 mg by mouth daily, Lomotil one tablet by mouth every 8 hours as needed for diarrhea, Humalog insulin according to protocol, Phenergan 25 mg by mouth every 4 hours as needed for nausea and vomiting, Levaquin 500 mg by mouth daily, metronidazole 500 mg by mouth every 8 hours. ALLERGIES: THE PATIENT IS ALLERGIC TO SULFA DRUGS. REVIEW OF SYSTEMS: CONSTITUTIONAL: There is no fever, no chills, no diaphoresis. HEENT: There is no headache or sore throat. CARDIOVASCULAR: There is no chest pain or orthopnea. RESPIRATORY: There is no shortness of breath or cough. GASTROINTESTINAL: Abdominal pain present. Nausea and vomiting present. No diarrhea. No constipation. NEUROLOGICAL: There is no numbness, no dizziness, no altered mental status. MUSCULOSKELETAL: There is no joint pain or swelling. DERMATOLOGICAL: There is no skin rash or itching. GENITOURINARY: There is no dysuria, hematuria, or flank pain. Rest of system review is normal. PHYSICAL EXAMINATION: GENERAL: At the time of exam, the patient was found to be alert, oriented x 3, and not in acute distress. VITAL SIGNS: At the initial time of presentation show temperature of 98.4 degrees Fahrenheit, pulse of 90, respirations 16, blood pressure 176/80, O2 sat of 99% on room air. HEENT: Show pupils to be equal, round, reactive to light, and accommodation. Extraocular muscles are intact. NECK: Supple with no JVD or carotid bruit. CARDIOVASCULAR: Show normal first and second heart sounds with no gallops or murmurs. RESPIRATORY: Show good air entry on both sides of the lungs with no abnormal breath sounds. GASTROINTESTINAL: Show abdomen to be full, soft, and nontender with no organomegaly or rigidity. NEUROLOGIC: Shows no focal deficit. MUSCULOSKELETAL: Show no joint swelling or tenderness. DERMATOLOGIC: Show no skin rash. GENITOURINARY: Showing no costovertebral angle tenderness. PERTINENT LABORATORY AND IMAGING STUDIES: The patient had CT of the abdomen and pelvis without contrast that shows small abdominal aortic aneurysm with no evidence of acute disease in the abdomen or pelvis. Patient's lab show CBC with normal white count, normal hemoglobin, and normal hematocrit with low MCV of 78. The CBC differential shows slightly elevated segmented neutrophil count of 74.1. The patient's chemistry showed low sodium of 120, normal potassium level, low chloride level of 80.9, and the elevated lipase level of 142. The patient's urinalysis was unremarkable. DIAGNOSES: 1. Hyponatremia. 2. Abdominal pain. PLAN OF CARE: 1. The patient will be placed on observation on remote telemetry. 2. The patient will have basic metabolic panel checked about 4-5 hours after the initial level. 3. The patient will be on p.r.n. medications like Tylenol 650 mg by mouth every 4 hours for fever and headache, IV morphine 2 mg every 4 hours for pain, and IV Zofran 4 mg every 8 hours for nausea and vomiting. 4. The patient will be placed on fluid restriction of 1000 mL per day if the sodium level still remains low after the initial rehydration in the Emergency Room. 5. The patient will have basic metabolic panel checked again in the morning to monitor the sodium level. 6. The patient's diet will be 1800 calorie consistent carbohydrate 2 g sodium diet. 7. The patient will be on Accu-Chek before meals and at bedtime, followed by sliding scale using low-dose regular insulin coverage. JOB# [id number] OCN/NTS
[2018-07-31 06:31] LABS: Calcium 8.8 mg/dL (8.4-10.2)
[2018-07-31 08:25] VITALS: BP 146/62
[2018-07-31] MEDS ORDERED: LOMOTIL PO PRN (10:34)
[2018-07-31] MEDS ORDERED: PHENERGAN PO PRN (10:34)
--- NOTE | 2018-07-31 10:34 | Progress Note ---
Assessment and Plan Assessment and plan: patient refusing care wants food, coffee states no further nausea and vomiting understand the severity of his low Na level review of his records and medications indicate chronic conditions but the sodium is more acute in the past month. "the hospital and doctors and staff tell lies" Hospitalist Physical - Constitutional Vitals: Temp Pulse Resp BP Pulse Ox 98.0 F 69 18 146/62 98 07/31/18 08:13 07/31/18 08:13 07/31/18 08:13 07/31/18 08:13 07/31/18 08:13 Results - Labs CBC & Chem 7: 07/30/18 18:13 07/31/18 05:28 Labs: Laboratory Last Values WBC 6.0 K/mm3 (4.5-11.0) 07/30/18 18:13 RBC 4.60 M/mm3 (3.65-5.03) 07/30/18 18:13 Hgb 12.4 gm/dl (11.8-15.2) 07/30/18 18:13 Hct 35.9 % (35.5-45.6) 07/30/18 18:13 MCV 78 fl (84-94) L 07/30/18 18:13 MCH 27 pg (28-32) L 07/30/18 18:13 MCHC 35 % (32-34) H 07/30/18 18:13 RDW 18.6 % (13.2-15.2) H 07/30/18 18:13 Plt Count 255 K/mm3 (140-440) 07/30/18 18:13 Lymph % (Auto) 17.6 % (13.4-35.0) 07/30/18 18:13 [place] % (Auto) 6.5 % (0.0-7.3) 07/30/18 18:13 Eos % (Auto) 1.3 % (0.0-4.3) 07/30/18 18:13 Baso % (Auto) 0.5 % (0.0-1.8) 07/30/18 18:13 Lymph # 1.1 K/mm3 (1.2-5.4) L 07/30/18 18:13 [place] # 0.4 K/mm3 (0.0-0.8) 07/30/18 18:13 Eos # 0.1 K/mm3 (0.0-0.4) 07/30/18 18:13 Baso # 0.0 K/mm3 (0.0-0.1) 07/30/18 18:13 Seg Neutrophils % 74.1 % (40.0-70.0) H 07/30/18 18:13 Seg Neutrophils # 4.5 K/mm3 (1.8-7.7) 07/30/18 18:13 Sodium 123 mmol/L (137-145) L 07/31/18 05:28 Potassium 4.5 mmol/L (3.6-5.0) 07/31/18 05:28 Chloride 87.2 mmol/L (98-107) L 07/31/18 05:28 Carbon Dioxide 23 mmol/L (22-30) 07/31/18 05:28 Anion Gap 17 mmol/L 07/31/18 05:28 BUN 12 mg/dL (9-20) 07/31/18 05:28 Creatinine 1.4 mg/dL (0.8-1.5) 07/31/18 05:28 Estimated GFR 50 ml/min 07/31/18 05:28 BUN/Creatinine Ratio 9 % 07/31/18 05:28 Glucose 101 mg/dL (75-100) H 07/31/18 05:28 Calcium 8.8 mg/dL (8.4-10.2) 07/31/18 05:28 Magnesium 2.10 mg/dL (1.7-2.3) 07/30/18 20:41 Total Bilirubin 0.50 mg/dL (0.1-1.2) 07/30/18 18:13 Direct Bilirubin < 0.2 mg/dL (0-0.2) 07/30/18 18:13 Indirect Bilirubin 0.3 mg/dL 07/30/18 18:13 AST 12 units/L (5-40) 07/30/18 18:13 ALT 11 units/L (7-56) 07/30/18 18:13 Alkaline Phosphatase 106 units/L (35-129) 07/30/18 18:13 Total Protein 8.1 g/dL (6.3-8.2) 07/30/18 18:13 Albumin 4.4 g/dL (3.9-5) 07/30/18 18:13 Albumin/Globulin Ratio 1.2 % 07/30/18 18:13 Lipase 142 units/L (13-60) H 07/30/18 18:13 TSH 2.460 mlU/mL (0.270-4.200) 07/30/18 20:41 Free T4 1.42 ng/dL (0.76-1.46) 07/30/18 20:41 Urine Color Yellow (Yellow) 07/30/18 18:10 Urine Turbidity Clear (Clear) 07/30/18 18:10 Urine pH 6.0 (5.0-7.0) 07/30/18 18:10 Ur Specific [place] 1.014 (1.003-1.030) 07/30/18 18:10 Urine Protein 100 mg/dl mg/dL (Negative) 07/30/18 18:10 Urine Glucose (UA) Neg mg/dL (Negative) 07/30/18 18:10 Urine Ketones Neg mg/dL (Negative) 07/30/18 18:10 Urine Blood Neg (Negative) 07/30/18 18:10 Urine Nitrite Neg (Negative) 07/30/18 18:10 Urine Bilirubin Neg (Negative) 07/30/18 18:10 Urine Urobilinogen 2.0 mg/dL (<2.0) 07/30/18 18:10 Ur Leukocyte Esterase Neg (Negative) 07/30/18 18:10 Urine WBC (Auto) < 1.0 /HPF (0.0-6.0) 07/30/18 18:10 Urine RBC (Auto) 2.0 /HPF (0.0-6.0) 07/30/18 18:10 Urine Creatinine 81.9 mg/dL (0.1-20.0) H 07/30/18 20:34 Urine Sodium 17 mmol/L 07/30/18 20:34
[2018-07-31] MEDS ORDERED: METFORMIN HCL 500 MG PO SCH (10:45)
[2018-07-31] MEDS ORDERED: NACL 0.9% 1000 ML 1,000 ML IV SCH (11:00)
[2018-07-31] MEDS ORDERED: GLUCOPHAGE XR PO SCH (11:00)
[2018-07-31] MEDS ORDERED: SODIUM CHLORIDE PO SCH (11:30)
--- NOTE | 2018-07-31 13:49 | Discharge Summary ---
Providers - Providers Date of Admission: 07/30/18 22:28 Attending physician: SELWYN TAVERA MD 07/31/18 11:29 Physical Therapy Evaluation and Treat [CONS] Routine Comment: Reason For Exam: weakness Hospitalization Reason for admission: GASTROENTERITIS Condition: Stable Hospital course: patient is 73 yo with CAD s/p CABG, cardiomyopathy, chronic systolic CHF, diabe sandy, hypertension. He presented with nausea, vomiting, diarrheal for 2 weeks. He reports that he came this time because of his house keeper, who also happens to be a lady he leaves with. He states that she told him to come because he is dehyrated. On admission he refused fluids, refused medications and told me this am that his nausea and vomiting is resolved. He is noted to have presented in the HOSPITAL and left against medical advise during treatment for Hyponatremia and presumed colitis. patient refusing care wants food, coffee states no further nausea and vomiting understand the severity of his low Na level review of his records and medications indicate chronic conditions but the sodium is more acute in the past month. He tells me "the hospital and doctors and staff tell lies" the patient after eating left AMA. - Discharge Diagnoses (1) Chronic systolic (congestive) heart failure Status: Acute (2) Coronary artery disease Status: Acute Qualifiers: Coronary Disease-Associated Artery/Lesion type: [place] artery [place] vs. transplanted heart: [place] heart Associated angina: with unstable angina Qualified Code(s): I25.110 - Atherosclerotic heart disease of [place] coronary artery with unstable angina pectoris (3) Hyponatremia Status: Acute (4) HTN (hypertension) Status: Acute (5) Diabetes mellitus type 2 in nonobese Status: Acute (6) Left against medical advice Status: Acute (7) Tobacco use disorder. Status: Acute Disposition: DC-07 LEFT AGAINST MED ADVICE Time spent for discharge: 35 MINS Core Measure Documentation - Palliative Care Palliative Care/ Comfort Measures: Not Applicable - Core Measures Any of the following diagnoses?: none Exam - Constitutional Vitals: Temp Pulse Resp BP Pulse Ox 98.0 F 69 18 146/62 98 07/31/18 08:13 07/31/18 10:00 07/31/18 08:13 07/31/18 08:13 07/31/18 08:13 General appearance: Present: no acute distress, well-nourished - EENT Eyes: Present: PERRL, EOM intact ENT: hearing intact, clear oral mucosa, poor dentition - Neck Neck: Present: supple, normal ROM - Respiratory Respiratory effort: normal Respiratory: bilateral: CTA - Cardiovascular Rhythm: regular Heart Sounds: Present: S1 & S2, systolic murmur - Extremities Extremities: no ischemia, pulses intact, No edema, normal temperature, Full ROM Peripheral Pulses: within normal limits - Abdominal General gastrointestinal: Present: soft, non-tender, non-distended, normal bowel sounds - Integumentary Integumentary: Present: clear, warm, dry - Musculoskeletal Musculoskeletal: strength equal bilaterally - Psychiatric Psychiatric: appropriate mood/affect, intact judgment & insight - Neurologic Neurologic: CNII-XII intact, moves all extremities - Allied Health Allied health notes reviewed: nursing Plan Follow up with: LIUDMILA BOLTON MD [Staff Physician] - 7 Days BRYANT MACHADO MD [Staff Physician] - 7 Days GARO CHOUDHARY MD [Staff Physician] - 7 Days COALFIELD ROSENDO LOCKE MD [Referring] - 3-5 Days Prescriptions: Sodium Chloride 1 gm PO DAILY #10 tablet
[2018-07-31] MEDS ORDERED: NEURONTIN PO SCH (22:00)
[2018-07-31] MEDS ORDERED: RANEXA ER PO SCH (22:00)
[2018-08-01] MEDS ORDERED: AMARYL PO SCH (08:00)
[2018-08-01] MEDS ORDERED: ASPIRIN PO SCH (10:00)
[2018-08-01] MEDS ORDERED: TOPROL XL PO SCH (10:00)
[2018-08-01] MEDS ORDERED: LASIX PO SCH (10:00)
[2018-08-01] MEDS ORDERED: ZESTRIL PO SCH (10:00)
== END 2018-07-31 11:40 | disposition left against medical advice (07) ==
LOC: ED 17:39 → INTOOBSV 22:28 → 2B-ACE 22:28
PROVIDERS: ADMIT Internal Medicine; ATTEND Internal Medicine
DX: E87.1 Hypo-osmolality and hyponatremia (principal); I11.0 Hypertensive heart disease with heart failure; I50.22 Chronic systolic (congestive) heart failure; I25.10 Atherosclerotic heart disease of native coronary artery without angina pectoris; E11.9 Type 2 diabetes mellitus without complications; R10.9 Unspecified abdominal pain; J44.9 Chronic obstructive pulmonary disease, unspecified; F17.210 Nicotine dependence, cigarettes, uncomplicated; Z53.21 Procedure and treatment not carried out due to patient leaving prior to being seen by health care provider
CPT/HCPCS: 36415; 74177; 80048; 80076; 81001; 82570; 83690; 83735; 84300; 84439; 84443; 85025; 93005; 93010; 96374; 96375; 99284; G0378; J2405; Q9967; 99285; J7050

== ENCOUNTER 2018-12-21 16:22 | Emergency (ER) | payer MEDICARE ==
[2018-12-21 16:57] LABS: Basophils # (Auto) 0.1 K/mm3 (0.0-0.1); Basophils % (Auto) 1.1 % (0.0-1.8); Eosinophils % (Auto) 0.6 % (0.0-4.3); Hematocrit 31.9 % (35.5-45.6); Hemoglobin 10.8 gm/dl (11.8-15.2); Lymphocytes # (Auto) 0.9 K/mm3 (1.2-5.4); Lymphocytes % (Auto) 11.4 % (13.4-35.0); Mean Corpuscular HGB Conc 34 % (32-34); Mean Corpuscular Volume 81 fl (84-94); Monocytes # (Auto) 0.5 K/mm3 (0.0-0.8); Monocytes % (Auto) 6.4 % (0.0-7.3); Platelet Count 262 K/mm3 (140-440); Red Blood Count 3.92 M/mm3 (3.65-5.03); Red Cell Distribution Width 17.7 % (13.2-15.2)
[2018-12-21 17:08] LABS: INR 1.02 (0.87-1.13); Partial Thromboplastin Time 28.1 Sec. (24.2-36.6)
--- NOTE | 2018-12-21 17:22 | XRay Report ---
CHEST 2 VIEWS INDICATION / CLINICAL INFORMATION: Dyspnea. Cough and congestion; shortness of breath for 2 days. COMPARISON: None available. FINDINGS: SUPPORT DEVICES: None. HEART / MEDIASTINUM: The heart size is borderline with a left ventricular configuration. Pulmonary va sculature is normal. There is calcification in the aortic arch without aneurysm. LUNGS / PLEURA: No significant pulmonary or pleural abnormality. No pneumothorax. ADDITIONAL FINDINGS: No significant additional findings. IMPRESSION: No acute findings. Signer Name: Joaquin Perez MD Signed: 12/21/2018 5:18 PM Workstation Name: [id number]
[2018-12-21 17:28] LABS: Albumin 3.8 g/dL (3.9-5); Calcium 8.8 mg/dL (8.4-10.2)
[2018-12-21] MEDS ORDERED: NACL 0.9% 1000 ML 1,000 ML IV ONE (17:39)
--- NOTE | 2018-12-21 18:10 | Emergency Department Report ---
ED General Adult HPI - General Chief complaint: Dyspnea/Respdistress Stated complaint: SOB/CHEST PAIN Time Seen by Provider: 12/21/18 17:38 Source: patient, EMS Mode of arrival: Stretcher Limitations: Physical Limitation - History of Present Illness Initial comments: The patient presents to the emergency department with a chief complaint of shortness of breath for the last one to two days. Recent complains of worsening shortness of breath with exertion. Patient denies any chest pain. Patient has a history of COPD and CHF. -: Gradual Severity scale (0 -10): 0 Consistency: constant Improves with: none Worsens with: none Associated Symptoms: denies other symptoms Treatments Prior to Arrival: none - Related Data Home Medications Medication Instructions Recorded Confirmed Last Taken Gabapentin 300 mg PO BID 09/19/16 07/30/18 09/18/16 300mg Glimepiride [Amaryl] 4 mg PO QAM 03/28/17 07/30/18 Unknown Metformin HCl [metFORMIN ER 500 mg PO BIDWM 03/28/17 07/30/18 Unknown Gastric] Diphenoxylate/Atropine [Lomotil] 1 tab PO Q8H PRN 01/15/18 07/30/18 Unknown Insulin Lispro [HumaLOG VIAL] See Protocol SQ ACHS 01/15/18 07/30/18 Unknown Promethazine [Phenergan] 25 mg PO Q4H PRN 01/15/18 07/30/18 Unknown Previous Rx's Medication Instructions Recorded Last Taken Type AtorvaSTATin [Lipitor] 10 mg PO QHS #30 tablet 12/21/17 Unknown Rx Metoprolol Xl [Metoprolol 25 mg PO DAILY #60 tablet 12/21/17 Unknown Rx SUCCINATE ER TAB] Ranolazine ER [Ranexa ER] 500 mg PO BID #60 tablet 12/21/17 Unknown Rx Lisinopril [Zestril TAB] 20 mg PO QDAY #30 tablet 01/01/18 Unknown Rx Aspirin 325 mg PO QDAY #30 tablet 01/12/18 Unknown Rx Furosemide [Lasix TAB] 20 mg PO QDAY #30 tablet 01/12/18 Unknown Rx metroNIDAZOLE [Flagyl TAB] 500 mg PO Q8HR #21 tablet 01/16/18 Unknown Rx Sodium Chloride 1 gm PO DAILY #10 tablet 07/31/18 Unknown Rx ALBUTEROL Inhaler (OR & NICU) 2 puff IH Q4HR PRN #1 inhalation 12/21/18 Unknown Rx [ProAir HFA Inhaler] levoFLOXacin [Levaquin] 750 mg PO QDAY #5 tablet 12/21/18 Unknown Rx Allergies Allergy/AdvReac Type Severity Reaction Status Date / Time Sulfa (Sulfonamide Allergy Rash Verified 07/30/18 17:44 Antibiotics) ED Review of Systems ROS: Stated complaint: SOB/CHEST PAIN Other details as noted in HPI Constitutional: denies: chills, fever Eyes: denies: eye pain, eye discharge, vision change ENT: denies: ear pain, throat pain Respiratory: shortness of breath. denies: cough, wheezing Cardiovascular: denies: chest pain, palpitations Endocrine: no symptoms reported Gastrointestinal: denies: abdominal pain, nausea, diarrhea Genitourinary: denies: urgency, dysuria Musculoskeletal: denies: back pain, joint swelling, arthralgia Skin: denies: rash, lesions Neurological: denies: headache, weakness, paresthesias Psychiatric: denies: anxiety, depression Hematological/Lymphatic: denies: easy bleeding, easy bruising ED Past Medical Hx - Past Medical History Previous Medical History?: Yes Hx Hypertension: Yes Hx CVA: Yes (x2 bilateral weakness,walks with walker) Hx Heart Attack/AMI: Yes (x 5) Hx Congestive Heart Failure: Yes (ischemic cardiopathy with the EF of 15-20%) Hx Diabetes: Yes Hx Deep Vein Thrombosis: No Hx Pulmonary Embolism: No Hx Arthritis: Yes Hx Seizures: No Hx Asthma: No Hx COPD: Yes Hx Tuberculosis: No Hx Dementia: No Hx HIV: No Additional medical history: crohns, pneumonia. Diverticulitis - Surgical History Past Surgical History?: Yes Hx Coronary Stent: Yes (x 6) Hx Pacemaker: No Hx Internal Defibrillator: No Additional Surgical History: angioplasty x 6 - Social History Smoking Status: Current Every Day Smoker Substance Use Type: None - Medications Home Medications: Home Medications Medication Instructions Recorded Confirmed Last Taken Type Gabapentin 300 mg PO BID 09/19/16 07/30/18 09/18/16 History 300mg Glimepiride [Amaryl] 4 mg PO QAM 03/28/17 07/30/18 Unknown History Metformin HCl [metFORMIN ER 500 mg PO BIDWM 03/28/17 07/30/18 Unknown History Gastric] AtorvaSTATin [Lipitor] 10 mg PO QHS #30 tablet 12/21/17 07/30/18 Unknown Rx Metoprolol Xl [Metoprolol 25 mg PO DAILY #60 tablet 12/21/17 07/30/18 Unknown Rx SUCCINATE ER TAB] Ranolazine ER [Ranexa ER] 500 mg PO BID #60 tablet 12/21/17 07/30/18 Unknown Rx Lisinopril [Zestril TAB] 20 mg PO QDAY #30 tablet 01/01/18 07/30/18 Unknown Rx Aspirin 325 mg PO QDAY #30 tablet 01/12/18 07/30/18 Unknown Rx Furosemide [Lasix TAB] 20 mg PO QDAY #30 tablet 01/12/18 07/30/18 Unknown Rx Diphenoxylate/Atropine [Lomotil] 1 tab PO Q8H PRN 01/15/18 07/30/18 Unknown History Insulin Lispro [HumaLOG VIAL] See Protocol SQ ACHS 01/15/18 07/30/18 Unknown History Promethazine [Phenergan] 25 mg PO Q4H PRN 01/15/18 07/30/18 Unknown History metroNIDAZOLE [Flagyl TAB] 500 mg PO Q8HR #21 tablet 01/16/18 07/30/18 Unknown Rx Sodium Chloride 1 gm PO DAILY #10 tablet 07/31/18 Unknown Rx ALBUTEROL Inhaler (OR & NICU) 2 puff IH Q4HR PRN #1 inhalation 12/21/18 Unknown Rx [ProAir HFA Inhaler] levoFLOXacin [Levaquin] 750 mg PO QDAY #5 tablet 12/21/18 Unknown Rx ED Physical Exam - General Limitations: Physical Limitation General appearance: alert, in no apparent distress - Head Head exam: Present: atraumatic, normocephalic - Eye Eye exam: Present: normal appearance, PERRL, EOMI - ENT ENT exam: Present: mucous membranes moist - Neck Neck exam: Present: normal inspection - Respiratory Respiratory exam: Present: rales. Absent: respiratory distress - Cardiovascular Cardiovascular Exam: Present: regular rate, normal rhythm. Absent: systolic murmur, diastolic murmur, rubs, gallop - GI/Abdominal GI/Abdominal exam: Present: soft, normal bowel sounds. Absent: distended, tenderness - Rectal Rectal exam: Present: deferred - Extremities Exam Extremities exam: Present: normal inspection - Back Exam Back exam: Present: normal inspection - Neurological Exam Neurological exam: Present: alert, oriented X3, CN II-XII intact. Absent: motor sensory deficit - Psychiatric Psychiatric exam: Present: normal affect, normal mood - Skin Skin exam: Present: warm, dry, intact, normal color. Absent: rash ED Course Vital Signs 12/21/18 12/21/18 12/21/18 16:38 17:34 17:45 Temperature 98.6 F Pulse Rate 87 Respiratory 27 H Rate Blood Pressure 138/70 153/78 O2 Sat by Pulse 97 100 100 Oximetry 12/21/18 12/21/18 12/21/18 18:01 18:15 18:30 Temperature Pulse Rate Respiratory Rate Blood Pressure 137/64 137/64 143/73 O2 Sat by Pulse 99 100 100 Oximetry ED Medical Decision Making - Lab Data Result diagrams: 12/21/18 16:50 12/21/18 16:50 Lab Results 12/21/18 12/21/18 12/21/18 Range/Units 16:45 16:50 16:50 WBC 8.0 (4.5-11.0) K/mm3 RBC 3.92 (3.65-5.03) M/mm3 Hgb 10.8 L (11.8-15.2) gm/dl Hct 31.9 L (35.5-45.6) % MCV 81 L (84-94) fl MCH 28 (28-32) pg MCHC 34 (32-34) % RDW 17.7 H (13.2-15.2) % Plt Count 262 (140-440) K/mm3 Lymph % (Auto) 11.4 L (13.4-35.0) % [place] % (Auto) 6.4 (0.0-7.3) % Eos % (Auto) 0.6 (0.0-4.3) % Baso % (Auto) 1.1 (0.0-1.8) % Lymph # 0.9 L (1.2-5.4) K/mm3 [place] # 0.5 (0.0-0.8) K/mm3 Eos # 0.0 (0.0-0.4) K/mm3 Baso # 0.1 (0.0-0.1) K/mm3 Seg Neutrophils % 80.5 H (40.0-70.0) % Seg Neutrophils # 6.4 (1.8-7.7) K/mm3 PT 13.1 (12.2-14.9) Sec. INR 1.02 (0.87-1.13) APTT 28.1 (24.2-36.6) Sec. D-Dimer 1031.07 H (0-234) ng/mlDDU Sodium (137-145) mmol/L Potassium (3.6-5.0) mmol/L Chloride (98-107) mmol/L Carbon Dioxide (22-30) mmol/L Anion Gap mmol/L BUN (9-20) mg/dL Creatinine (0.8-1.5) mg/dL Estimated GFR ml/min BUN/Creatinine Ratio % Glucose (75-100) mg/dL POC Glucose 86 (70-105) Calcium (8.4-10.2) mg/dL Magnesium (1.7-2.3) mg/dL Total Bilirubin (0.1-1.2) mg/dL AST (5-40) units/L ALT (7-56) units/L Alkaline Phosphatase (35-129) units/L Total Creatine Kinase (55-170) units/L CK-MB (CK-2) (0.0-4.0) ng/mL CK-MB (CK-2) Rel Index (0-4) Troponin T (0.00-0.029) ng/mL Total Protein (6.3-8.2) g/dL Albumin (3.9-5) g/dL Albumin/Globulin Ratio % 12/21/18 12/21/18 Range/Units 16:50 16:50 WBC (4.5-11.0) K/mm3 RBC (3.65-5.03) M/mm3 Hgb (11.8-15.2) gm/dl Hct (35.5-45.6) % MCV (84-94) fl MCH (28-32) pg MCHC (32-34) % RDW (13.2-15.2) % Plt Count (140-440) K/mm3 Lymph % (Auto) (13.4-35.0) % [place] % (Auto) (0.0-7.3) % Eos % (Auto) (0.0-4.3) % Baso % (Auto) (0.0-1.8) % Lymph # (1.2-5.4) K/mm3 [place] # (0.0-0.8) K/mm3 Eos # (0.0-0.4) K/mm3 Baso # (0.0-0.1) K/mm3 Seg Neutrophils % (40.0-70.0) % Seg Neutrophils # (1.8-7.7) K/mm3 PT (12.2-14.9) Sec. INR (0.87-1.13) APTT (24.2-36.6) Sec. D-Dimer (0-234) ng/mlDDU Sodium 129 L (137-145) mmol/L Potassium 3.3 L (3.6-5.0) mmol/L Chloride 90.8 L (98-107) mmol/L Carbon Dioxide 26 (22-30) mmol/L Anion Gap 16 mmol/L BUN 6 L (9-20) mg/dL Creatinine 1.2 (0.8-1.5) mg/dL Estimated GFR 60 ml/min BUN/Creatinine Ratio 5 % Glucose 97 (75-100) mg/dL POC Glucose (70-105) Calcium 8.8 (8.4-10.2) mg/dL Magnesium 1.40 L (1.7-2.3) mg/dL Total Bilirubin 0.30 (0.1-1.2) mg/dL AST 11 (5-40) units/L ALT 8 (7-56) units/L Alkaline Phosphatase 125 (35-129) units/L Total Creatine Kinase 66 (55-170) units/L CK-MB (CK-2) 2.0 (0.0-4.0) ng/mL CK-MB (CK-2) Rel Index 3.0 (0-4) Troponin T < 0.010 (0.00-0.029) ng/mL Total Protein 7.3 (6.3-8.2) g/dL Albumin 3.8 L (3.9-5) g/dL Albumin/Globulin Ratio 1.1 % - Radiology Data Radiology results: report reviewed - Medical Decision Making Patient declined admission after multiple discussions with the patient Patient states he would rather go home and politely declines admission. Will attempt were made to try to convince the patient to stay to no avail Critical care attestation.: If time is entered above; I have spent that time in minutes in the direct care of this critically ill patient, excluding procedure time. ED Disposition Clinical Impression: Pneumonia Disposition: DC-01 TO HOME OR SELFCARE Is pt being admited?: No Does the pt Need Aspirin: No Condition: Stable Instructions: Bacterial Pneumonia (ED) Additional Instructions: return if worse Prescriptions: levoFLOXacin [Levaquin] 750 mg PO QDAY #5 tablet Referrals: ROSENDO DIALLO MD [Primary Care Provider] - 3-5 Days [facility] [Provider Group] - 3-5 Days [facility] [Provider Group] - 3-5 Days Time of Disposition: 20:08
[2018-12-21 18:55] VITALS: BP 143/73
--- NOTE | 2018-12-21 19:30 | Cat Scan Report ---
CTA CHEST WITH IV CONTRAST INDICATION: Acute onset chest pain with dyspnea with elevated d-dimer TECHNIQUE: Axial CT images were obtained through the chest after injection of 100 mL IV contrast. 3 plane MIP re constructions were produced. All CT scans at this location are performed using CT dose reduction for ALARA by means of automated exposure control. COMPARISON: None available. FINDINGS: PULMONARY ARTERIES: No pulmonary emboli. AORTA AND ARTERIES: Coronary artery calcification. MEDIASTINUM: No mass, lymphadenopathy or other significant abnormality. The heart is normal in size w ithout a pericardial effusion. The trachea and main bronchi are patent and normal in caliber. LUNGS: Although no apoorva airspace consolidation is identified there is faint bronchial pneumonia with in the right lower lobe. ADDITIONAL FINDINGS: None. UPPER ABDOMEN: No acute findings. BONES: No significant osseous abnormality. IMPRESSION: 1. No CT evidence for pulmonary embolism. 2. Early right lower lobe bronchopneumonia with bronchial wall obstruction involving multiple segment al branches of the right lower lobe. Signer Name: Pedro Pablo Meneses MD Signed: 12/21/2018 7:26 PM Workstation Name: [id number]
[2018-12-21] MEDS ORDERED: LEVAQUIN 750MG/150ML 750 MG/150 ML BAG IV ONE (19:55)
== END 2018-12-21 21:06 | disposition home or self-care (01) ==
LOC: ED 16:22
DX: J18.9 Pneumonia, unspecified organism (principal); I11.0 Hypertensive heart disease with heart failure; I50.9 Heart failure, unspecified; I25.2 Old myocardial infarction; E11.9 Type 2 diabetes mellitus without complications; J44.9 Chronic obstructive pulmonary disease, unspecified; M19.90 Unspecified osteoarthritis, unspecified site; F17.200 Nicotine dependence, unspecified, uncomplicated; Z95.1 Presence of aortocoronary bypass graft; Z86.73 Personal history of transient ischemic attack (TIA), and cerebral infarction without residual deficits; Z79.899 Other long term (current) drug therapy; Z79.82 Long term (current) use of aspirin; Z88.2 Allergy status to sulfonamides
CPT/HCPCS: 36415; 71046; 71275; 80053; 82140; 82550; 82553; 82962; 83735; 84484; 85025; 85379; 85610; 85730; 87040; 93005; 93010; 96365; 99285; J1956; J7030; Q9967; 96361

== ENCOUNTER 2019-10-08 11:09 | Inpatient (IN) | payer MEDICARE ==
[2019-10-08] MEDS ORDERED: IPRATROPIUM 0.02% NEBU 2.5 ML IH ONE (12:05)
[2019-10-08] MEDS ORDERED: ALBUTEROL 2.5 MG/3 ML NEBU IH ONE (12:05)
--- NOTE | 2019-10-08 12:13 | Emergency Department Report ---
HPI - General Chief Complaint: Dyspnea/Respdistress Time Seen by Provider: 10/08/19 11:46 - HPI HPI: Room 9 The patient is a 74-year-old male present with a chief complaint of shortness of breath. The patient states for the past 3-4 days he has had shortness of breath and a cough productive of copious white sputum. Patient admits occasional rhinorrhea but denies fever. Patient states she has been in contact with someone who was sick but he does not know their diagnosis. Patient complains of soreness when he coughs only ED Past Medical Hx - Past Medical History Previous Medical History?: Yes Hx Hypertension: Yes Hx CVA: Yes (x2 bilateral weakness,walks with walker) Hx Heart Attack/AMI: Yes (x 5) Hx Congestive Heart Failure: Yes (ischemic cardiopathy with the EF of 15-20%) Hx Diabetes: Yes Hx Arthritis: Yes Hx COPD: Yes Additional medical history: crohns, pneumonia. Diverticulitis - Surgical History Past Surgical History?: Yes Hx Coronary Stent: Yes (x 6) Additional Surgical History: angioplasty x 6 - Family History Family history: no significant - Social History Smoking Status: Heavy Tobacco Smoker Substance Use Type: None - Medications Home Medications: Home Medications Medication Instructions Recorded Confirmed Last Taken Type Gabapentin 300 mg PO BID 09/19/16 07/30/18 09/18/16 History 300 mg Glimepiride [Amaryl] 4 mg PO QAM 03/28/17 07/30/18 Unknown History Metformin HCl [metFORMIN ER 500 mg PO BIDWM 03/28/17 07/30/18 Unknown History Gastric] AtorvaSTATin 10 mg PO QHS #30 tablet 12/21/17 07/30/18 Unknown Rx Metoprolol Xl [Metoprolol 25 mg PO DAILY #60 tablet 12/21/17 07/30/18 Unknown Rx SUCCINATE ER TAB] Ranolazine ER [Ranexa ER] 500 mg PO BID #60 tablet 12/21/17 07/30/18 Unknown Rx lisinopriL [Zestril TAB] 20 mg PO QDAY #30 tablet 01/01/18 07/30/18 Unknown Rx Aspirin 325 mg PO QDAY #30 tablet 01/12/18 07/30/18 Unknown Rx Furosemide [Lasix TAB] 20 mg PO QDAY #30 tablet 01/12/18 07/30/18 Unknown Rx Diphenoxylate/Atropine [Lomotil] 1 tab PO Q8H PRN 01/15/18 07/30/18 Unknown History Insulin Lispro [HumaLOG VIAL] See Protocol SQ ACHS 01/15/18 07/30/18 Unknown His tory Promethazine [Phenergan] 25 mg PO Q4H PRN 01/15/18 07/30/18 Unknown History metroNIDAZOLE [Flagyl TAB] 500 mg PO Q8HR #21 tablet 01/16/18 07/30/18 Unknown Rx Sodium Chloride 1 gm PO DAILY #10 tablet 07/31/18 Unknown Rx Albuterol INH(or & Nicu Only) 2 puff IH Q4HR PRN #1 inhalation 12/21/18 Unknown Rx [ProAir HFA Inhaler] levoFLOXacin [Levaquin] 750 mg PO QDAY #5 tablet 12/21/18 Unknown Rx ED Review of Systems ROS: Stated complaint: DIZZY/SOB/CP/WEAKNESS Other details as noted in HPI Constitutional: denies: fever Eyes: denies: eye pain ENT: denies: throat pain Respiratory: cough, shortness of breath Endocrine: no symptoms reported Gastrointestinal: abdominal pain Neurological: denies: headache Physical Exam - Physical Exam Vital Signs: Vital Signs 10/08/19 10/08/19 11:16 11:46 Temperature 96.5 F L 97.7 F Pulse Rate 87 79 Respiratory 22 27 H Rate Blood Pressure 115/66 Blood Pressure 126/79 [Right] O2 Sat by Pulse 96 93 Oximetry Physical Exam: GENERAL: The patient is well-developed well-nourished male sitting on stretcher not appearing to be in acute distress. [] HEENT: Normocephalic. Atraumatic. Extraocular motions are intact. Patient has moist mucous membranes. NECK: Supple. Trachea midline CHEST/LUNGS: Occasional expiratory wheezing. There is no respiratory distress noted. HEART/CARDIOVASCULAR: Regular. There is no tachycardia. There is no gallop rub or murmur. ABDOMEN: Abdomen is soft, nontender. Patient has normal bowel sounds. There is no abdominal distention. SKIN: There is no rash. There is no diaphoresis. NEURO: The patient is awake, alert, and oriented. The patient is cooperative. The patient has normal speech MUSCULOSKELETAL: There is no evidence of acute injury. ED Course Vital Signs 10/08/19 10/08/19 11:16 11:46 Temperature 96.5 F L 97.7 F Pulse Rate 87 79 Respiratory 22 27 H Rate Blood Pressure 115/66 Blood Pressure 126/79 [Right] O2 Sat by Pulse 96 93 Oximetry - Reevaluation(s) Reevaluation #1: 10/08/19 14:05 Patient complaining of worsening shortness of breath. Patient placed on BiPAP - Consultations Consultation #1: 10/08/19 12:55 Infectious disease paged 10/08/19 13:[address] Purcell- agrees with COVID-19 PCR testing ED Medical Decision Making - Lab Data Result diagrams: 10/08/19 12:50 10/08/19 12:50 Laboratory Tests 10/08/19 10/08/19 10/08/19 12:50 12:50 12:50 WBC 7.8 RBC 3.65 Hgb 9.7 L Hct 29.4 L MCV 81 L MCH 27 L MCHC 33 RDW 17.1 H Plt Count 268 Lymph % (Auto) 9.3 L [place] % (Auto) 5.9 Eos % (Auto) 0.8 Baso % (Auto) 0.5 Lymph # 0.7 L [place] # 0.5 Eos # 0.1 Baso # 0.0 Seg Neutrophils % 83.5 H Seg Neutrophils # 6.5 Sodium Cancelled Potassium Cancelled Chloride Cancelled Carbon Dioxide Cancelled Anion Gap Cancelled BUN Cancelled Creatinine Cancelled Estimated GFR Cancelled BUN/Creatinine Ratio Cancelled Glucose Cancelled Lactic Acid 1.70 Calcium Cancelled Total Bilirubin AST ALT Alkaline Phosphatase Total Creatine Kinase 279 H CK-MB (CK-2) 6.3 H CK-MB (CK-2) Rel Index 2.2 Troponin T 0.135 H* Total Protein Albumin Albumin/Globulin Ratio Triglycerides 96 Cholesterol 120 LDL Cholesterol Direct 71 HDL Cholesterol 42 Cholesterol/HDL Ratio 2.85 Lipase 10/08/19 12:50 WBC RBC Hgb Hct MCV MCH MCHC RDW Plt Count Lymph % (Auto) [place] % (Auto) Eos % (Auto) Baso % (Auto) Lymph # [place] # Eos # Baso # Seg Neutrophils % Seg Neutrophils # Sodium 123 L Potassium 5.0 Chloride 90.0 L Carbon Dioxide 20 L Anion Gap 18 BUN 14 Creatinine 1.2 Estimated GFR 60 BUN/Creatinine Ratio 12 Glucose 201 H Lactic Acid Calcium 8.6 Total Bilirubin 0.30 AST 34 ALT 32 Alkaline Phosphatase 110 Total Creatine Kinase CK-MB (CK-2) CK-MB (CK-2) Rel Index Troponin T Total Protein 6.5 Albumin 3.2 L Albumin/Globulin Ratio 1.0 Triglycerides Cholesterol LDL Cholesterol Direct HDL Cholesterol Cholesterol/HDL Ratio Lipase 49 - EKG Data -: EKG Interpreted by Me EKG shows normal: sinus rhythm Rate: normal - EKG Data When compared to previous EKG there are: changes noted Interpretation: nonspecific ST-T wave alicia (New T wave inversions in leads V3, V4, V5, V6 when compared to previous EKG. T wave inversions in leads I, aVL) - Radiology Data Radiology results: report reviewed (Chest x-ray), image reviewed (Chest x-ray) interpreted by me: Chest x-ray-right lower lobe infiltrate [facility] [address] [place] [address] XRay Report Signed Patient: SOLOMON MILES MR#: [id number] : 1945 Acct:[id number] Age/Sex: 74 / M ADM Date: 10/08/19 Loc: ED Attending Dr: Ordering Physician: JAYMIE ZHENG MD Date of Service: 10/08/19 Procedure(s): XR chest 1V ap Accession Number(s): [id number] cc: JYAMIE ZHENG MD Fluoro Time In Minutes: CHEST 1 VIEW 10/08/2019 12:16 PM INDICATION / CLINICAL INFORMATION: Shortness of breath, cough. COMPARISON: 2 views of the chest from 12/21/2018. FINDINGS: SUPPORT DEVICES: None. HEART / MEDIASTINUM: Mildly enlarged with similar aortic atherosclerosis. LUNGS / PLEURA: Generalized bilateral interstitial opacities are noted with right basilar airspace opacities and a trace right pleural effusion. No pneumothorax. ADDITIONAL FINDINGS: No significant additional findings. IMPRESSION: 1. Bilateral pulmonary opacities as above are concerning for pneumonia in the setting of a cough. Please correlate with the clinical findings. 2. Trace right pleural effusion. Signer Name: Waldemar Saxena MD Signed: 10/08/2019 12:42 PM Workstation Name: [id number] Transcribed By: [place] Dictated By: Waldemar Saxena MD Electronically Authenticated By: Waldemar Saxena MD Signed Date/Time: 10/08/19 1242 DD/ 1240 TD/TT: - Differential Diagnosis ACS, pericarditis, COPD exacerbation, pneumonia, COVID-19 Critical care attestation.: If time is entered above; I have spent that time in minutes in the direct care of this critically ill patient, excluding procedure time. ED Disposition Clinical Impression: Shortness of breath, Pneumonia, Hyponatremia Disposition: OP ADMIT IP TO THIS HOSP Is pt being admited?: Yes Does the pt Need Aspirin: No Condition: Fair Instructions: Bacterial Pneumonia (ED) Referrals: DEANNE ARREGUIN MD [Primary Care Provider] - 3-5 Days Time of Disposition: 14:06 (Hospitalist paged (Dr Swan))
--- NOTE | 2019-10-08 12:46 | XRay Report ---
CHEST 1 VIEW 10/08/2019 12:16 PM INDICATION / CLINICAL INFORMATION: Shortness of breath, cough. COMPARISON: 2 views of the chest from 12/21/2018. FINDINGS: SUPPORT DEVICES: None. HEART / MEDIASTINUM: Mildly enlarged with similar aortic atherosclerosis. LUNGS / PLEURA: Generalized bilateral interstitial opacities are noted with right basilar airspace op acities and a trace right pleural effusion. No pneumothorax. ADDITIONAL FINDINGS: No significant additional findings. IMPRESSION: 1. Bilateral pulmonary opacities as above are concerning for pneumonia in the setting of a cough. Ple ase correlate with the clinical findings. 2. Trace right pleural effusion. Signer Name: Waldemar Saxena MD Signed: 10/08/2019 12:42 PM Workstation Name: [id number]
[2019-10-08 13:11] LABS: Basophils % (Auto) 0.5 % (0.0-1.8); Eosinophils # (Auto) 0.1 K/mm3 (0.0-0.4); Eosinophils % (Auto) 0.8 % (0.0-4.3); Hematocrit 29.4 % (35.5-45.6); Hemoglobin 9.7 gm/dl (11.8-15.2); Lymphocytes # (Auto) 0.7 K/mm3 (1.2-5.4); Lymphocytes % (Auto) 9.3 % (13.4-35.0); Mean Corpuscular HGB Conc 33 % (32-34); Mean Corpuscular Volume 81 fl (84-94); Monocytes # (Auto) 0.5 K/mm3 (0.0-0.8); Monocytes % (Auto) 5.9 % (0.0-7.3); Platelet Count 268 K/mm3 (140-440); Red Blood Count 3.65 M/mm3 (3.65-5.03); Red Cell Distribution Width 17.1 % (13.2-15.2)
[2019-10-08] MEDS ORDERED: cefTRIAXone/NS 1 GM/50 ML 1 GM/50 ML BAG IV ONE (13:28)
[2019-10-08 13:33] LABS: Creatine Kinase MB 6.3 ng/mL (0.0-4.0)
[2019-10-08 13:34] LABS: Albumin 3.2 g/dL (3.9-5); Calcium 8.6 mg/dL (8.4-10.2)
[2019-10-08] MEDS ORDERED: LORazepam 2 MG/ML VIAL ONE (13:54)
[2019-10-08] MEDS ORDERED: AZITHROMYCIN 500 MG in SODIUM CHLORIDE 0.9% 250ML 250 ML IV ONE (14:00)
[2019-10-08] MEDS ORDERED: LORazepam 2 MG/ML VIAL IV ONE (14:02)
[2019-10-08] MEDS ORDERED: SODIUM CHLORIDE 0.9% 1000 ML 1,000 ML IV ONE ×2 (14:03→14:06)
[2019-10-08 14:04] LABS: Chol/HDL Ratio 2.85 %
--- NOTE | 2019-10-08 14:28 | History and Physical Report ---
History of Present Illness Chief complaint: I cannot breathe History of present illness: 74 YO Male with HTN, AR, CVA, DM, OA, Crohns Disease, CAD S/P CABG and Stent Placement, Systolic CHF(EF 15%), COPD, Nicotine Dependence presents to ED for evaluation. Pt states that he has experienced shortness of breath, productive cough of white-whitish sputum, generalized weakness, and malaise over the past 3 to 4 days with persistent symptoms which have worsened over the same timeframe. Patient transported to [facility] via private vehicle for further care and evaluation. Patient seen and evaluated in the emergency department. Lab and imaging studies reviewed. Patient acknowledges ill contacts but is uncertain if ill contacts were infected with COVID-19. Patient chest x-ray revealed bilateral pneumonia. Patient also found to have metabolic acidosis. The aforementioned findings raise concern of COVID-19 infection. Patient initiated on pneumonia protocol as well as COVID-19 infection protocol. Pulmonary team consulted in ED. Infectious disease team consulted in ED. Patient admitted to medical floor due to increased risk of pulmonary decompensation. Pt denies fever, chills, palpitations, trauma, BRBPR, unintentional weight loss, night sweats, or bone pain. Prior admission on 07/30/2018 reviewed. All medication listed at time of admission has been reconciled. Advanced care planning conducted in ED. Past History Past Medical History: acute AR, diabetes, heart failure, hypertension, stroke Past Surgical History: CABG, Other (Cardiac stent) Social history: , smoking. denies: alcohol abuse, prescription drug abuse Family history: diabetes, hypertension Medications and Allergies Allergies Allergy/AdvReac Type Severity Reaction Status Date / Time Sulfa (Sulfonamide Allergy Rash Verified 07/30/18 17:44 Antibiotics) Home Medications Medication Instructions Recorded Confirmed Last Taken Type Gabapentin 300 mg PO BID 09/19/16 07/30/18 09/18/16 History 300 mg Glimepiride [Amaryl] 4 mg PO QAM 03/28/17 07/30/18 Unknown History Metformin HCl [metFORMIN ER 500 mg PO BIDWM 03/28/17 07/30/18 Unknown History Gastric] AtorvaSTATin 10 mg PO QHS #30 tablet 12/21/17 07/30/18 Unknown Rx Metoprolol Xl [Metoprolol 25 mg PO DAILY #60 tablet 12/21/17 07/30/18 Unknown Rx SUCCINATE ER TAB] Ranolazine ER [Ranexa ER] 500 mg PO BID #60 tablet 12/21/17 07/30/18 Unknown Rx lisinopriL [Zestril TAB] 20 mg PO QDAY #30 tablet 01/01/18 07/30/18 Unknown Rx Aspirin 325 mg PO QDAY #30 tablet 01/12/18 07/30/18 Unknown Rx Furosemide [Lasix TAB] 20 mg PO QDAY #30 tablet 01/12/18 07/30/18 Unknown Rx Diphenoxylate/Atropine [Lomotil] 1 tab PO Q8H PRN 01/15/18 07/30/18 Unknown History Insulin Lispro [HumaLOG VIAL] See Protocol SQ ACHS 01/15/18 07/30/18 Unknown History Promethazine [Phenergan] 25 mg PO Q4H PRN 01/15/18 07/30/18 Unknown History metroNIDAZOLE [Flagyl TAB] 500 mg PO Q8HR #21 tablet 01/16/18 07/30/18 Unknown Rx Sodium Chloride 1 gm PO DAILY #10 tablet 07/31/18 Unknown Rx Albuterol INH(or & Nicu Only) 2 puff IH Q4HR PRN #1 inhalation 12/21/18 Unknown Rx [ProAir HFA Inhaler] levoFLOXacin [Levaquin] 750 mg PO QDAY #5 tablet 12/21/18 Unknown Rx Active Meds: Active Medications Azithromycin 500 mg/ Sodium (Chloride) 250 mls @ 250 mls/hr IV ONCE ONE; Protocol Stop: 10/08/19 14:59 Sodium Chloride (Nacl 0.9% 1000 Ml) 1,000 mls @ 125 mls/hr IV ONCE ONE Stop: 10/08/19 22:05 Last Admin: 10/08/19 14:17 Dose: 125 mls/hr Documented by: Review of Systems Constitutional: no weight loss, no weight gain, no fever, no chills Ears, nose, mouth and throat: no ear pain, no ear discharge, no tinnitis, no nasal congestion Cardiovascular: no chest pain, no orthopnea, no palpitations Respiratory: cough, cough with sputum, shortness of breath Gastrointestinal: no abdominal pain, no nausea, no vomiting, no diarrhea Genitourinary Male: no hematuria, no flank pain, no discharge, no urinary frequency, no urinary hesitancy Rectal: no pain, no incontinence, no bleeding Musculoskeletal: no neck stiffness, no neck pain, no shooting arm pain, no arm numbness/tingling, no low back pain Integumentary: no rash, no pruritis, no redness, no sores, no wounds Neurological: no transient paralysis, no paralysis, no weakness, no parathesias, no numbness, no tingling Psychiatric: no memory loss, no change in sleep habits, no sleep disturbances, no insomnia, no change in appetite Endocrine: no cold intolerance, no heat intolerance, no polyphagia, no excessive thirst, no polydipsia Hematologic/Lymphatic: no easy bruising, no easy bleeding, no lymphedema Allergic/Immunologic: no urticaria, no allergic rhinitis, no wheezing, no persistent infections, no anaphylaxis Exam - Constitutional Vitals: Temp Pulse Resp BP Pulse Ox 97.7 F 88 32 H 127/79 95 10/08/19 11:46 10/08/19 14:05 10/08/19 14:05 10/08/19 13:16 10/08/19 14:05 General appearance: Present: mild distress - EENT Eyes: Present: PERRL ENT: hearing intact, clear oral mucosa - Neck Neck: Present: supple, normal ROM - Respiratory Respiratory effort: accessory muscle use Respiratory: bilateral: diminished, rhonchi - Cardiovascular Heart Sounds: Present: S1 & S2. Absent: rub, click - Extremities Extremities: pulses symmetrical, No edema Peripheral Pulses: within normal limits - Abdominal General gastrointestinal: Present: soft, non-tender, non-distended, normal bowel sounds Male genitourinary: Present: normal - Integumentary Integumentary: Present: clear, warm, dry - Musculoskeletal Musculoskeletal: gait normal, strength equal bilaterally - Psychiatric Psychiatric: appropriate mood/affect, intact judgment & insight - Neurologic Neurologic: CNII-XII intact, moves all extremities HEART Score - HEART Score Troponin: Troponin T 0.135 ng/mL (0.00-0.029) H* 10/08/19 12:50 Results - Labs CBC & Chem 7: 10/08/19 12:50 10/08/19 14:12 Labs: Abnormal lab results 10/08/19 10/08/19 10/08/19 Range/Units 12:50 12:50 12:50 Hgb 9.7 L (11.8-15.2) gm/dl Hct 29.4 L (35.5-45.6) % MCV 81 L (84-94) fl MCH 27 L (28-32) pg RDW 17.1 H (13.2-15.2) % Lymph % (Auto) 9.3 L (13.4-35.0) % Lymph # 0.7 L (1.2-5.4) K/mm3 Seg Neutrophils % 83.5 H (40.0-70.0) % Sodium 123 L (137-145) mmol/L Chloride 90.0 L (98-107) mmol/L Carbon Dioxide 20 L (22-30) mmol/L Glucose 201 H (75-100) mg/dL Total Creatine Kinase 279 H (55-170) units/L CK-MB (CK-2) 6.3 H (0.0-4.0) ng/mL Troponin T 0.135 H* (0.00-0.029) ng/mL Albumin 3.2 L (3.9-5) g/dL Assessment and Plan - Patient Problems (1) Pneumonia Current Visit: Yes Status: Acute Plan to address problem: Pneumonia protocol: Chest x-ray, blood culture, IV antibiotic therapy, pulse oximetry, submental oxygen. (2) Suspected 2019 novel coronavirus infection Current Visit: Yes Status: Acute Plan to address problem: Coronavirus protocol: Lactic acid, d-dimer, procalcitonin, coronavirus PCR, infectious disease service consulted. (3) Metabolic acidosis Current Visit: Yes Status: Acute Plan to address problem: BMP, repeat BMP in a.m., supportive care. (4) Congestive heart failure Current Visit: Yes Status: Chronic Qualifiers: Heart failure type: systolic Plan to address problem: Currently compensated: Strict I's/O, monitor urine output every shift, monitor fluid balance, afterload reduction, blood pressure control, (5) Diabetes mellitus Current Visit: Yes Status: Acute Plan to address problem: Sliding scale insulin, Accu-Chek, consistent carbohydrate diet, hypoglycemia protocol (6) Osteoarthritis Current Visit: Yes Status: Acute Qualifiers: Laterality: bilateral Plan to address problem: Pain control, supportive care. (7) Nicotine dependence unspecified, with withdrawal Current Visit: Yes Status: Acute Qualifiers: Nicotine product type: cigarettes Qualified Code(s): F17.213 - Nicotine dependence, cigarettes, with withdrawal Plan to address problem: Supportive care, smoking cessation counseling, behavior change counseling +15 minutes (8) DVT prophylaxis Current Visit: Yes Status: Acute Plan to address problem: SCD to bilateral lower extremities while in bed, (9) Advance care planning Current Visit: Yes Status: Acute Plan to address problem: Disease education conducted, patient is full code. Patient knowledges understanding and agreement with care plan. +30 minutes.
[2019-10-08] MEDS ORDERED: ONDANSETRON 4 MG/2 ML INJ IV PRN (14:33)
[2019-10-08] MEDS ORDERED: ACETAMINOPHEN 325 MG TAB PO PRN (14:33)
[2019-10-08 14:50] LABS: C-Reactive Protein 6.4 mg/dL (0.00-1.30)
--- NOTE | 2019-10-08 17:42 | Consultation ---
History of Present Illness - Reason for Consult Consult date: 10/08/19 r/o COVID Requesting physician: JAYMIE ZHENG - History of Present Illness 74 years old male with history of CAD/TN status post CABG, CHF with EF 15%, COPD, CVA, diabetes, hypertension, Crohn's disease, admitted on due to 4-day history of cough, generalized malaise, progressive shortness of breath. Patient is currently sleepy and confused unable to provide history. On arrival, temper ature 96.5, rest of vital signs stable. Initial WBC 7.8. Hemoglobin 9.7. Creatinine 1.2. Ferritin 83. LDH 215. CRP 6.4. CK 279. Troponin 0 0.13. Procalcitonin 0.09. D-dimer 629. Blood culture 10/08/2019 pending. Chest x-ray with bilateral pulmonary opacities. Review of Systems: Unable to obtain Medications and Allergies Allergies Allergy/AdvReac Type Severity Reaction Status Date / Time Sulfa (Sulfonamide Allergy Rash Verified 07/30/18 17:44 Antibiotics) Home Medications Medication Instructions Recorded Confirmed Last Taken Type Gabapentin 300 mg PO BID 09/19/16 07/30/18 09/18/16 History 300 mg Glimepiride [Amaryl] 4 mg PO QAM 03/28/17 07/30/18 Unknown History Metformin HCl [metFORMIN ER 500 mg PO BIDWM 03/28/17 07/30/18 Unknown History Gastric] AtorvaSTATin 10 mg PO QHS #30 tablet 12/21/17 07/30/18 Unknown Rx Metoprolol Xl [Metoprolol 25 mg PO DAILY #60 tablet 12/21/17 07/30/18 Unknown Rx SUCCINATE ER TAB] Ranolazine ER [Ranexa ER] 500 mg PO BID #60 tablet 12/21/17 07/30/18 Unknown Rx lisinopriL [Zestril TAB] 20 mg PO QDAY #30 tablet 01/01/18 07/30/18 Unknown Rx Aspirin 325 mg PO QDAY #30 tablet 01/12/18 07/30/18 Unknown Rx Furosemide [Lasix TAB] 20 mg PO QDAY #30 tablet 01/12/18 07/30/18 Unknown Rx Diphenoxylate/Atropine [Lomotil] 1 tab PO Q8H PRN 01/15/18 07/30/18 Unknown History Insulin Lispro [HumaLOG VIAL] See Protocol SQ ACHS 01/15/18 07/30/18 Unknown History Promethazine [Phenergan] 25 mg PO Q4H PRN 01/15/18 07/30/18 Unknown History metroNIDAZOLE [Flagyl TAB] 500 mg PO Q8HR #21 tablet 01/16/18 07/30/18 Unknown Rx Sodium Chloride 1 gm PO DAILY #10 tablet 07/31/18 Unknown Rx Albuterol INH(or & Nicu Only) 2 puff IH Q4HR PRN #1 inhalation 12/21/18 Unknown Rx [ProAir HFA Inhaler] levoFLOXacin [Levaquin] 750 mg PO QDAY #5 tablet 12/21/18 Unknown Rx Active Meds: Active Medications Acetaminophen (Tylenol) 650 mg PO Q4H PRN PRN Reason: Pain MILD(1-3)/Fever >100.5/MANCILLA Sodium Chloride (Nacl 0.9% 1000 Ml) 1,000 mls @ 125 mls/hr IV ONCE ONE Stop: 10/08/19 22:05 Last Admin: 10/08/19 14:17 Dose: 125 mls/hr Documented by: Ondansetron HCl (Zofran) 4 mg IV Q8H PRN PRN Reason: Nausea And Vomiting Sodium Chloride (Sodium Chloride Flush Syringe 10 Ml) 10 ml IV BID PRAVIN Sodium Chloride (Sodium Chloride Flush Syringe 10 Ml) 10 ml IV PRN PRN PRN Reason: LINE FLUSH Physical Examination - Constitutional Vitals: Vital Signs Temp Pulse Resp BP Pulse Ox 97.7 F 101 H 21 108/78 100 10/08/19 11:46 10/08/19 15:00 10/08/19 15:00 10/08/19 15:00 10/08/19 15:00 Temperature -Last 24 Hours Temperature 97.7 F Temperature 96.5 F Results - Labs CBC & Chem 7: 10/08/19 12:50 10/08/19 14:12 Labs: Abnormal lab results 10/08/19 10/08/19 10/08/19 Range/Units 12:50 12:50 12:50 Hgb 9.7 L (11.8-15.2) gm/dl Hct 29.4 L (35.5-45.6) % MCV 81 L (84-94) fl MCH 27 L (28-32) pg RDW 17.1 H (13.2-15.2) % Lymph % (Auto) 9.3 L (13.4-35.0) % Lymph # 0.7 L (1.2-5.4) K/mm3 Seg Neutrophils % 83.5 H (40.0-70.0) % D-Dimer (0-234) ng/mlDDU Sodium 123 L (137-145) mmol/L Chloride 90.0 L (98-107) mmol/L Carbon Dioxide 20 L (22-30) mmol/L Glucose 201 H (75-100) mg/dL Lactate Dehydrogenase (91-180) units/L Total Creatine Kinase 279 H (55-170) units/L CK-MB (CK-2) 6.3 H (0.0-4.0) ng/mL Troponin T 0.135 H* (0.00-0.029) ng/mL C-Reactive Protein (0.00-1.30) mg/dL Albumin 3.2 L (3.9-5) g/dL 10/08/19 10/08/19 Range/Units 14:12 14:12 Hgb (11.8-15.2) gm/dl Hct (35.5-45.6) % MCV (84-94) fl MCH (28-32) pg RDW (13.2-15.2) % Lymph % (Auto) (13.4-35.0) % Lymph # (1.2-5.4) K/mm3 Seg Neutrophils % (40.0-70.0) % D-Dimer 629.43 H (0-234) ng/mlDDU Sodium (137-145) mmol/L Chloride (98-107) mmol/L Carbon Dioxide (22-30) mmol/L Glucose 179 H (75-100) mg/dL Lactate Dehydrogenase 215 H (91-180) units/L Total Creatine Kinase (55-170) units/L CK-MB (CK-2) (0.0-4.0) ng/mL Troponin T (0.00-0.029) ng/mL C-Reactive Protein 6.40 H (0.00-1.30) mg/dL Albumin (3.9-5) g/dL Assessment and Plan Cultures: Blood culture 10/08/2019 pending Assessment: 74 years old male with history of CAD/TN status post CABG, CHF with EF 15%, COPD, CVA, diabetes, hypertension, Crohn's disease, admitted on due to 4-day history of cough, generalized malaise, progressive shortness of breath. Patient is currently sleepy and confused unable to provide history. On arrival, temperature 96.5, rest of vital signs stable. Initial WBC 7.8. Hemoglobin 9.7. Creatinine 1.2. CK 279. Troponin 0 0.13. Procalcitonin 0.09. D-dimer 629. Blood culture 10/08/2019 pending. Chest x-ray with bilateral pulmonary opacities. #Acute hypoxemic respiratory failure: Possible due to volume overload versus pneumonia #Volume overload versus pneumonia: Likely volume overload. Should rule out COVID however less likely. Inflammatory markers for COVID not elevated. Ferritin 83. LDH 215. CRP 6.4. D-dimer 629. Bacterial pneumonia less likely given normal procalcitonin. #Acute encephalopathy: Of unclear etiology possibly due to hypoxemia #Elevated troponins/CPK Recommendations: Obtain urinalysis and urine culture Cardiology consult Transthoracic echo Consider head CT Continue COVID isolation precautions per [facility] protocol Follow-up COVID test Monitor off antibiotics Will follow Gaby Gomez MD [facility] [employer] [facility] ([facility] M [phone] O [phone]
[2019-10-09] MEDS ORDERED: guaiFENesin 100 MG/5 ML ORAL LIQD PO PRN (02:43)
[2019-10-09 04:10] LABS: Bilirubin,Urine NEG (Negative); Blood,Urine NEG (Negative); Color,Urine Yellow (Yellow); Mucus,Urine FEW /HPF; Urobilinogen,Urine < 2.0 mg/dL (<2.0)
[2019-10-09 05:27] LABS: Basophils % (Auto) 0.5 % (0.0-1.8); Eosinophils # (Auto) 0.1 K/mm3 (0.0-0.4); Eosinophils % (Auto) 1.3 % (0.0-4.3); Hematocrit 27.3 % (35.5-45.6); Hemoglobin 9.1 gm/dl (11.8-15.2); Lymphocytes % (Auto) 13.1 % (13.4-35.0); Mean Corpuscular HGB Conc 33 % (32-34); Mean Corpuscular Volume 81 fl (84-94); Monocytes # (Auto) 0.5 K/mm3 (0.0-0.8); Monocytes % (Auto) 6.5 % (0.0-7.3); Platelet Count 241 K/mm3 (140-440); Red Blood Count 3.38 M/mm3 (3.65-5.03); Red Cell Distribution Width 17.2 % (13.2-15.2)
[2019-10-09 05:55] LABS: BUN/Creatinine Ratio 13; Blood Urea Nitrogen 14 mg/dL (9-20); Calcium 8.2 mg/dL (8.4-10.2); Hemolysis Index 11
[2019-10-09] MEDS: guaiFENesin 100 MG/5 ML ORAL LIQD PO PRN ×2 (09:42→22:35)
[2019-10-09] MEDS: LORazepam 2 MG/ML VIAL IV PRN ×2 (11:56→22:35)
--- NOTE | 2019-10-09 14:57 | Progress Note ---
Assessment and Plan Cultures: Blood culture 10/08/2019 pending Assessment: 74 years old male with history of CAD/[place] status post CABG, CHF with EF 15%, COPD, CVA, diabetes, hypertension, Crohn's disease, admitted on due to 4-day history of cough, generalized malaise, progressive shortness of breath. Patient is currently sleepy and confused unable to provide history. On arrival, temperature 96.5, rest of vital signs stable. Initial WBC 7.8. Hemoglobin 9.7. Creatinine 1.2. CK 279. Troponin 0 0.13. Procalcitonin 0.09. D-dimer 629. Blood culture 10/08/2019 pending. Chest x-ray with bilateral pulmonary opac ities. #Acute hypoxemic respiratory failure: Possible due to volume overload versus pneumonia #Volume overload versus pneumonia: Likely volume overload. COVID-19 negative #Acute encephalopathy: Of unclear etiology possibly due to hypoxemia #Elevated troponins/CPK Recommendations: Obtain urinalysis and urine culture Cardiology consult Transthoracic echo Consider head CT Okay to remove from COVID-19 isolation precautions given negative test Monitor off antibiotics Will follow Molly Perez MD [facility] ([facility] M: [phone] O: [phone] F: [phone] Subjective Date of service: 10/09/19 Interval history: Remains afebrile with a normal white count. COVID negative. Objective - Exam Narrative Exam: Physical Exam: Constitutional: Alert, cooperative. No acute distress Head, Ears, Nose: Normocephalic, atraumatic. Neck: Supple, no meningeal signs Oral: dentition fair, no thrush Cardiovascular: S1, S2 normal. Respiratory: Good air entry, clear to auscultation bilaterally GI: Soft, non-tender; bowel sounds normal. No peritoneal signs. Musculoskeletal: No pedal edema, no cyanosis. Skin: No rash or abscess Hem/Lymphatic: No palpable cervical or supraclavicular nodes. No lymphangitis Psych: Mood ok. Affect normal Neurological: Awake, alert, oriented. No gross abnormality - Constitutional Vitals: Vital Signs Temp Pulse Resp BP Pulse Ox 98.0 F 99 H 20 133/85 98 10/09/19 10:29 10/09/19 10:29 10/09/19 10:29 10/09/19 10:29 10/09/19 10:29 Temperature -Last 24 Hours Temperature 98.0 F Temperature 97.9 F Temperature 99.0 F Temperature 98.5 F - Labs CBC & Chem 7: 10/09/19 05:02 10/09/19 05:02 Labs: Abnormal lab results 10/09/19 10/09/19 Range/Units 05:02 05:02 RBC 3.38 L (3.65-5.03) M/mm3 Hgb 9.1 L (11.8-15.2) gm/dl Hct 27.3 L (35.5-45.6) % MCV 81 L (84-94) fl MCH 27 L (28-32) pg RDW 17.2 H (13.2-15.2) % Lymph % (Auto) 13.1 L (13.4-35.0) % Lymph # 1.0 L (1.2-5.4) K/mm3 Seg Neutrophils % 78.6 H (40.0-70.0) % Sodium 126 L (137-145) mmol/L Chloride 92.9 L (98-107) mmol/L Carbon Dioxide 20 L (22-30) mmol/L Glucose 145 H (75-100) mg/dL Calcium 8.2 L (8.4-10.2) mg/dL
--- NOTE | 2019-10-09 21:11 | Progress Note ---
Assessment and Plan - Patient Problems (1) Pneumonia Current Visit: Yes Status: Acute Plan to address problem: Pneumonia protocol: Chest x-ray, blood culture, IV antibiotic therapy, pulse oximetry, submental oxygen. (2) Suspected 2019 novel coronavirus infection Current Visit: Yes Status: Acute Plan to address problem: Coronavirus PCR is negative. Discontinue isolation precautions and transfer to medical floor (3) Metabolic acidosis Current Visit: Yes Status: Acute Plan to address problem: BMP, repeat BMP in a.m., supportive care. (4) Congestive heart failure Current Visit: Yes Status: Chronic Qualifiers: Heart failure type: systolic Plan to address problem: Currently compensated: Strict I's/O, monitor urine output every shift, monitor fluid balance, afterload reduction, blood pressure control, (5) Diabetes mellitus Current Visit: Yes Status: Acute Plan to address problem: Sliding scale insulin, Accu-Chek, consistent carbohydrate diet, hypoglycemia protocol (6) Osteoarthritis Current Visit: Yes Status: Acute Qualifiers: Laterality: bilateral Plan to address problem: Pain control, supportive care. (7) Nicotine dependence unspecified, with withdrawal Current Visit: Yes Status: Acute Qualifiers: Nicotine product type: cigarettes Qualified Code(s): F17.213 - Nicotine d ependence, cigarettes, with withdrawal Plan to address problem: Supportive care, smoking cessation counseling, behavior change counseling +15 minutes (8) DVT prophylaxis Current Visit: Yes Status: Acute Plan to address problem: SCD to bilateral lower extremities while in bed, (9) Advance care planning Current Visit: Yes Status: Acute Plan to address problem: Disease education conducted, patient is full code. Patient knowledges understanding and agreement with care plan. +30 minutes. History Interval history: 74 YO Male HD #2 with Pneumonia, COVID 19 PCR is Negative, Acidosis, CHF, DM, OA. Pt is transferred to medical floor. Patient patient denies fever, chills, chest pain, palpitation, productive cough. Patient states that he still feels short of breath. Patient acknowledges feeling somewhat better than he did when he was admitted to the hospital. Patient acknowledges dyspnea. No reported nursing events. Hospitalist Physical - Constitutional Vitals: Temp Pulse Resp BP Pulse Ox 98.0 F 99 H 20 133/85 98 10/09/19 10:10/09/19 10:10/09/19 10:10/09/19 10:20 10:29 General appearance: Present: mild distress - EENT Eyes: Present: PERRL ENT: hearing intact - Neck Neck: Present: supple - Respiratory Respiratory: bilateral: diminished - Cardiovascular Rhythm: regular Heart Sounds: Present: S1 & S2 Peripheral Pulses: within normal limits - Abdominal General gastrointestinal: soft, non-tender, non-distended - Integumentary Integumentary: Present: clear, dry - Psychiatric Psychiatric: appropriate mood/affect, cooperative - Neurologic Neurologic: CNII-XII intact HEART Score - HEART Score Troponin: Troponin T 0.135 ng/mL (0.00-0.029) H* 10/08/19 12:50 Results - Labs CBC & Chem 7: 10/09/19 05:02 10/09/19 05:02 Labs: Laboratory Last Values WBC 7.5 K/mm3 (4.5-11.0) 10/09/19 05:02 RBC 3.38 M/mm3 (3.65-5.03) L 10/09/19 05:02 Hgb 9.1 gm/dl (11.8-15.2) L 10/09/19 05:02 Hct 27.3 % (35.5-45.6) L 10/09/19 05:02 MCV 81 fl (84-94) L 10/09/19 05:02 MCH 27 pg (28-32) L 10/09/19 05:02 MCHC 33 % (32-34) 10/09/19 05:02 RDW 17.2 % (13.2-15.2) H 10/09/19 05:02 Plt Count 241 K/mm3 (140-440) 10/09/19 05:02 Lymph % (Auto) 13.1 % (13.4-35.0) L 10/09/19 05:02 [place] % (Auto) 6.5 % (0.0-7.3) 10/09/19 05:02 Eos % (Auto) 1.3 % (0.0-4.3) 10/09/19 05:02 Baso % (Auto) 0.5 % (0.0-1.8) 10/09/19 05:02 Lymph # 1.0 K/mm3 (1.2-5.4) L 10/09/19 05:02 [place] # 0.5 K/mm3 (0.0-0.8) 10/09/19 05:02 Eos # 0.1 K/mm3 (0.0-0.4) 10/09/19 05:02 Baso # 0.0 K/mm3 (0.0-0.1) 10/09/19 05:02 Seg Neutrophils % 78.6 % (40.0-70.0) H 10/09/19 05:02 Seg Neutrophils # 5.9 K/mm3 (1.8-7.7) 10/09/19 05:02 D-Dimer 629.43 ng/mlDDU (0-234) H 10/08/19 14:12 Sodium 126 mmol/L (137-145) L 10/09/19 05:02 Potassium 4.3 mmol/L (3.6-5.0) 10/09/19 05:02 Chloride 92.9 mmol/L (98-107) L 10/09/19 05:02 Carbon Dioxide 20 mmol/L (22-30) L 10/09/19 05:02 Anion Gap 17 mmol/L 10/09/19 05:02 BUN 14 mg/dL (9-20) 10/09/19 05:02 Creatinine 1.1 mg/dL (0.8-1.5) 10/09/19 05:02 Estimated GFR > 60 ml/min 10/09/19 05:02 BUN/Creatinine Ratio 13 % 10/09/19 05:02 Glucose 145 mg/dL (75-100) H 10/09/19 05:02 Lactic Acid 1.70 mmol/L (0.7-2.0) 10/08/19 12:50 Calcium 8.2 mg/dL (8.4-10.2) L 10/09/19 05:02 Ferritin 83.9 ng/mL (13.0-400.0) 10/08/19 14:12 Total Bilirubin 0.30 mg/dL (0.1-1.2) 10/08/19 12:50 AST 34 units/L (5-40) 10/08/19 12:50 ALT 32 units/L (7-56) 10/08/19 12:50 Alkaline Phosphatase 110 units/L (35-129) 10/08/19 12:50 Lactate Dehydrogenase 215 units/L (91-180) H 10/08/19 14:12 Total Creatine Kinase 279 units/L (55-170) H 10/08/19 12:50 CK-MB (CK-2) 6.3 ng/mL (0.0-4.0) H 10/08/19 12:50 CK-MB (CK-2) Rel Index 2.2 (0-4) 10/08/19 12:50 Troponin T 0.135 ng/mL (0.00-0.029) H* 10/08/19 12:50 C-Reactive Protein 6.40 mg/dL (0.00-1.30) H 10/08/19 14:12 Total Protein 6.5 g/dL (6.3-8.2) 10/08/19 12:50 Albumin 3.2 g/dL (3.9-5) L 10/08/19 12:50 Albumin/Globulin Ratio 1.0 % 10/08/19 12:50 Triglycerides 96 mg/dL (2-149) 10/08/19 12:50 Cholesterol 120 mg/dL (50-199) 10/08/19 12:50 LDL Cholesterol Direct 71 mg/dL (50-130) 10/08/19 12:50 HDL Cholesterol 42 mg/dL (40-59) 10/08/19 12:50 Cholesterol/HDL Ratio 2.85 % 10/08/19 12:50 Lipase 49 units/L (13-60) 10/08/19 12:50 Procalcitonin 0.09 ng/mL (<0.15) 10/08/19 14:12 Urine Color Yellow (Yellow) 10/08/19 03:40 Urine Turbidity Clear (Clear) 10/08/19 03:40 Urine pH 5.0 (5.0-7.0) 10/08/19 03:40 Ur Specific [place] 1.016 (1.003-1.030) 10/08/19 03:40 Urine Protein 100 mg/dl mg/dL (Negative) 10/08/19 03:40 Urine Glucose (UA) Neg mg/dL (Negative) 10/08/19 03:40 Urine Ketones Neg mg/dL (Negative) 10/08/19 03:40 Urine Blood Neg (Negative) 10/08/19 03:40 Urine Nitrite Neg (Negative) 10/08/19 03:40 Urine Bilirubin Neg (Negative) 10/08/19 03:40 Urine Urobilinogen < 2.0 mg/dL (<2.0) 10/08/19 03:40 Ur Leukocyte Esterase Neg (Negative) 10/08/19 03:40 Urine WBC (Auto) 1.0 /HPF (0.0-6.0) 10/08/19 03:40 Urine RBC (Auto) 2.0 /HPF (0.0-6.0) 10/08/19 03:40 U Epithel Cells (Auto) < 1.0 /HPF (0-13.0) 10/08/19 03:40 Urine Mucus Few /HPF 10/08/19 03:40 Coronavirus (PCR) Negative (Negative) 10/08/19 15:10 Microbiology: Microbiology 10/08/19 12:50 Peripheral/Venous Blood Culture - Preliminary NO GROWTH AFTER 24 HOURS 10/08/19 12:50 Peripheral/Venous Blood Culture - Preliminary NO GROWTH AFTER 24 HOURS Gay/IV: Voiding Method Urinal IV Catheter Type [Left INT / Saline Lock Antecubital] Active Medications - Current Medications Current Medications: Generic Name Dose Route Start Last Admin Trade Name Freq PRN Reason Stop Dose Admin Acetaminophen 650 mg 10/08/19 14:33 Tylenol PO Q4H PRN Pain MILD(1-3)/Fever >100.5/MANCILLA Guaifenesin 200 mg 10/09/19 07:15 10/09/19 09:42 Robitussin PO 200 mg Q6HR PRN Administration Cough Lorazepam 1 mg 10/09/19 11:44 10/09/19 11:56 Ativan IV 1 mg Q6HR PRN Administration Agitation Ondansetron HCl 4 mg 10/08/19 14:33 Zofran IV Q8H PRN Nausea And Vomiting Sodium Chloride 10 ml 10/08/19 22:00 10/09/19 12:00 Sodium Chloride Flush Syringe 10 Ml IV 10 ml BID PRAVIN Administration Sodium Chloride 10 ml 10/08/19 14:33 Sodium Chloride Flush Syringe 10 Ml IV PRN PRN LINE FLUSH
[2019-10-10] MEDS ORDERED: methylPREDNISolone Sod Succinate 40 MG/1 ML INJ IV ONE (13:00)
[2019-10-10] MEDS: LORazepam 2 MG/ML VIAL IV PRN ×2 (13:08→16:22)
--- NOTE | 2019-10-10 14:40 | Progress Note ---
Assessment and Plan - Patient Problems (1) Pneumonia Current Visit: Yes Status: Acute Plan to address problem: Pneumonia protocol: Chest x-ray, blood culture, IV antibiotic therapy, pulse oximetry, submental oxygen. (2) Suspected 2019 novel coronavirus infection Current Visit: Yes Status: Acute Plan to address problem: Coronavirus PCR is negative. Discontinue isolation precautions and transfer to medical floor (3) Metabolic acidosis Current Visit: Yes Status: Acute Plan to address problem: BMP, repeat BMP in a.m., supportive care. (4) Congestive heart failure Current Visit: Yes Status: Chronic Qualifiers: Heart failure type: systolic Plan to address problem: Currently compensated: Strict I's/O, monitor urine output every shift, monitor fluid balance, afterload reduction, blood pressure control, (5) Diabetes mellitus Current Visit: Yes Status: Acute Plan to address problem: Sliding scale insulin, Accu-Chek, consistent carbohydrate diet, hypoglycemia protocol (6) Osteoarthritis Current Visit: Yes Status: Acute Qualifiers: Laterality: bilateral Plan to address problem: Pain control, supportive care. (7) Nicotine dependence unspecified, with withdrawal Current Visit: Yes Status: Acute Qualifiers: Nicotine product type: cigarettes Qualified Code(s): F17.213 - Nicotine d ependence, cigarettes, with withdrawal Plan to address problem: Supportive care, smoking cessation counseling, behavior change counseling +15 minutes (8) DVT prophylaxis Current Visit: Yes Status: Acute Plan to address problem: SCD to bilateral lower extremities while in bed, (9) Advance care planning Current Visit: Yes Status: Acute Plan to address problem: Disease education conducted, patient is full code. Patient knowledges understanding and agreement with care plan. +30 minutes. History Interval history: 74 YO Male HD #3 with Pneumonia, COVID 19 PCR is Negative, Acidosis, CHF, DM, OA. Pt is transferred to medical floor. Patient patient denies fever, chills, chest pain, palpitation, productive cough. Patient states that he still feels short of breath again today. Patient acknowledges feeling somewhat better than he did when he was admitted to the hospital. Patient acknowledges dyspnea. No reported nursing events. Hospitalist Physical - Constitutional Vitals: Temp Pulse Resp BP Pulse Ox 97.7 F 100 H 18 147/88 96 10/10/19 11:35 10/10/19 11:35 10/10/19 11:35 10/10/19 11:35 10/10/19 11:35 General appearance: Present: mild distress - EENT Eyes: Present: PERRL, EOM intact - Neck Neck: Present: supple - Respiratory Respiratory effort: labored Respiratory: bilateral: diminished - Cardiovascular Rhythm: regular Heart Sounds: Present: S1 & S2 - Extremities Extremities: no ischemia Extremity abnormal: edema Peripheral Pulses: within normal limits - Abdominal General gastrointestinal: soft, non-tender, non-distended - Integumentary Integumentary: Present: clear, warm, dry - Psychiatric Psychiatric: appropriate mood/affect, cooperative - Neurologic Neurologic: CNII-XII intact HEART Score - HEART Score Troponin: Troponin T 0.135 ng/mL (0.00-0.029) H* 10/08/19 12:50 Results - Labs CBC & Chem 7: 10/09/19 05:02 10/09/19 05:02 Labs: Laboratory Last Values WBC 7.5 K/mm3 (4.5-11.0) 10/09/19 05:02 RBC 3.38 M/mm3 (3.65-5.03) L 10/09/19 05:02 Hgb 9.1 gm/dl (11.8-15.2) L 10/09/19 05:02 Hct 27.3 % (35.5-45.6) L 10/09/19 05:02 MCV 81 fl (84-94) L 10/09/19 05:02 MCH 27 pg (28-32) L 10/09/19 05:02 MCHC 33 % (32-34) 10/09/19 05:02 RDW 17.2 % (13.2-15.2) H 10/09/19 05:02 Plt Count 241 K/mm3 (140-440) 10/09/19 05:02 Lymph % (Auto) 13.1 % (13.4-35.0) L 10/09/19 05:02 [place] % (Auto) 6.5 % (0.0-7.3) 10/09/19 05:02 Eos % (Auto) 1.3 % (0.0-4.3) 10/09/19 05:02 Baso % (Auto) 0.5 % (0.0-1.8) 10/09/19 05:02 Lymph # 1.0 K/mm3 (1.2-5.4) L 10/09/19 05:02 [place] # 0.5 K/mm3 (0.0-0.8) 10/09/19 05:02 Eos # 0.1 K/mm3 (0.0-0.4) 10/09/19 05:02 Baso # 0.0 K/mm3 (0.0-0.1) 10/09/19 05:02 Seg Neutrophils % 78.6 % (40.0-70.0) H 10/09/19 05:02 Seg Neutrophils # 5.9 K/mm3 (1.8-7.7) 10/09/19 05:02 D-Dimer 629.43 ng/mlDDU (0-234) H 10/08/19 14:12 Sodium 126 mmol/L (137-145) L 10/09/19 05:02 Potassium 4.3 mmol/L (3.6-5.0) 10/09/19 05:02 Chloride 92.9 mmol/L (98-107) L 10/09/19 05:02 Carbon Dioxide 20 mmol/L (22-30) L 10/09/19 05:02 Anion Gap 17 mmol/L 10/09/19 05:02 BUN 14 mg/dL (9-20) 10/09/19 05:02 Creatinine 1.1 mg/dL (0.8-1.5) 10/09/19 05:02 Estimated GFR > 60 ml/min 10/09/19 05:02 BUN/Creatinine Ratio 13 % 10/09/19 05:02 Glucose 145 mg/dL (75-100) H 10/09/19 05:02 Lactic Acid 1.70 mmol/L (0.7-2.0) 10/08/19 12:50 Calcium 8.2 mg/dL (8.4-10.2) L 10/09/19 05:02 Ferritin 83.9 ng/mL (13.0-400.0) 10/08/19 14:12 Total Bilirubin 0.30 mg/dL (0.1-1.2) 10/08/19 12:50 AST 34 units/L (5-40) 10/08/19 12:50 ALT 32 units/L (7-56) 10/08/19 12:50 Alkaline Phosphatase 110 units/L (35-129) 10/08/19 12:50 Lactate Dehydrogenase 215 units/L (91-180) H 10/08/19 14:12 Total Creatine Kinase 279 units/L (55-170) H 10/08/19 12:50 CK-MB (CK-2) 6.3 ng/mL (0.0-4.0) H 10/08/19 12:50 CK-MB (CK-2) Rel Index 2.2 (0-4) 10/08/19 12:50 Troponin T 0.135 ng/mL (0.00-0.029) H* 10/08/19 12:50 C-Reactive Protein 6.40 mg/dL (0.00-1.30) H 10/08/19 14:12 Total Protein 6.5 g/dL (6.3-8.2) 10/08/19 12:50 Albumin 3.2 g/dL (3.9-5) L 10/08/19 12:50 Albumin/Globulin Ratio 1.0 % 10/08/19 12:50 Triglycerides 96 mg/dL (2-149) 10/08/19 12:50 Cholesterol 120 mg/dL (50-199) 10/08/19 12:50 LDL Cholesterol Direct 71 mg/dL (50-130) 10/08/19 12:50 HDL Cholesterol 42 mg/dL (40-59) 10/08/19 12:50 Cholesterol/HDL Ratio 2.85 % 10/08/19 12:50 Lipase 49 units/L (13-60) 10/08/19 12:50 Procalcitonin 0.09 ng/mL (<0.15) 10/08/19 14:12 Urine Color Yellow (Yellow) 10/08/19 03:40 Urine Turbidity Clear (Clear) 10/08/19 03:40 Urine pH 5.0 (5.0-7.0) 10/08/19 03:40 Ur Specific [place] 1.016 (1.003-1.030) 10/08/19 03:40 Urine Protein 100 mg/dl mg/dL (Negative) 10/08/19 03:40 Urine Glucose (UA) Neg mg/dL (Negative) 10/08/19 03:40 Urine Ketones Neg mg/dL (Negative) 10/08/19 03:40 Urine Blood Neg (Negative) 10/08/19 03:40 Urine Nitrite Neg (Negative) 10/08/19 03:40 Urine Bilirubin Neg (Negative) 10/08/19 03:40 Urine Urobilinogen < 2.0 mg/dL (<2.0) 10/08/19 03:40 Ur Leukocyte Esterase Neg (Negative) 10/08/19 03:40 Urine WBC (Auto) 1.0 /HPF (0.0-6.0) 10/08/19 03:40 Urine RBC (Auto) 2.0 /HPF (0.0-6.0) 10/08/19 03:40 U Epithel Cells (Auto) < 1.0 /HPF (0-13.0) 10/08/19 03:40 Urine Mucus Few /HPF 10/08/19 03:40 Coronavirus (PCR) Negative (Negative) 10/08/19 15:10 Microbiology: Microbiology 10/08/19 12:50 Peripheral/Venous Blood Culture - Preliminary NO GROWTH AFTER 48 HOURS 10/08/19 12:50 Peripheral/Venous Blood Culture - Preliminary NO GROWTH AFTER 48 HOURS Gay/IV: Voiding Method Toilet IV Catheter Type [Left INT / Saline Lock Antecubital] Active Medications - Current Medications Current Medications: Generic Name Dose Route Start Last Admin Trade Name Freq PRN Reason Stop Dose Admin Acetaminophen 650 mg 10/08/19 14:33 10/09/19 22:34 Tylenol PO 650 mg Q4H PRN Administration Pain MILD(1-3)/Fever >100.5/MANCILLA Guaifenesin 200 mg 10/09/19 07:15 10/09/19 22:35 Robitussin PO 200 mg Q6HR PRN Administration Cough Lorazepam 1 mg 10/09/19 11:44 10/10/19 13:08 Ativan IV 1 mg Q6HR PRN Administration Agitation Methylprednisolone Sodium Succinate 40 mg 10/10/19 22:00 Solu-Medrol IV Q12HR PRAVIN Ondansetron HCl 4 mg 10/08/19 14:33 Zofran IV Q8H PRN Nausea And Vomiting Sodium Chloride 10 ml 10/08/19 22:00 10/10/19 13:09 Sodium Chloride Flush Syringe 10 Ml IV 10 ml BID PRAVIN Administration Sodium Chloride 10 ml 10/08/19 14:33 Sodium Chloride Flush Syringe 10 Ml IV PRN PRN LINE FLUSH
[2019-10-10] MEDS: methylPREDNISolone Sod Succinate 40 MG/1 ML INJ IV SCH (22:02)
[2019-10-10] MEDS: guaiFENesin 100 MG/5 ML ORAL LIQD PO PRN (22:02)
[2019-10-11] MEDS: LORazepam 2 MG/ML VIAL IV PRN (06:10)
--- NOTE | 2019-10-11 11:19 | Discharge Summary ---
Providers - Providers Date of Admission: 10/08/19 14:33 Attending physician: AGNES ESPINO 10/08/19 13:03 Consult to Physician [CONS] Urgent Comment: Consulting Provider: VU BUTCHER Physician Instructions: Reason For Exam: COVID-19 PUI 10/10/19 17:33 Occupational Therapy Evaluate and Treat [CONS] Routine Comment: Reason For Exam: unsteady gait/S/P witnessed slide to floor 10/10/19 17:34 Physical Therapy Evaluation and Treat [CONS] Routine Comment: Reason For Exam: unsteady gait; s/p witnessed slide to floor Primary care physician: DEANNE ARREGUIN MD Hospitalization Condition: Fair Pertinent studies: COVID-19 PCR: Negative Hospital course: 74 YO Male with HTN, [place], CVA, DM, OA, Crohns Disease, CAD S/P CABG and Stent Placement, Systolic CHF(EF 15%), COPD, Nicotine Dependence presented to ED for evaluation. Pt stated that he had experienced shortness of breath, productive cough of white-whitish sputum, generalized weakness, and malaise over the 3 to 4 days prior to admission with persistent symptoms which had worsened over the same timeframe. Patient transported to [facility] via private vehicle for further care and evaluation. Patient seen and evaluated in the emergency department. Lab and imaging studies reviewed. Patient acknowledged ill contacts but is uncertain if ill contacts were infected with COVID-19. Patient chest x-ray revealed bilateral pneumonia. Patient also found to have metabolic acidosis. The aforementioned findings raise concern of COVID-19 infection. Patient initiated on pneumonia protocol as well as COVID-19 infection protocol. Pulmonary team consulted in ED. Infectious disease team consulted in ED. Patient admitted to medical floor due to increased risk of pulmonary d ecompensation. Advanced care planning conducted in ED. patient convalesced well during hospital course. Patient symptomatology improved with the aforementioned therapy. Patient was admitted and initiated on COVID-19 protocol; however, the patient's COVID-19 PCR was negative and the patient was ruled out for COVID-19 infection. Patient medically optimized and back to usual state of health. Patient seen and evaluated prior to discharge but no significant new physical exam findings. Patient subsequently discharged. Patient to follow-up with primary care physician within 1 week. Patient in structed to comply with social distancing recommendations as per the [facility], as well as stated in local government. 35 minutes dedicated to patient discharge Disposition: [id number] HOME UNDER HOME HLTH - Discharge Diagnoses (1) Pneumonia Status: Acute (2) Suspected 2019 novel coronavirus infection Status: Acute (3) Metabolic acidosis Status: Acute (4) Congestive heart failure Status: Chronic Qualifiers: Heart failure type: systolic (5) Diabetes mellitus Status: Acute (6) Osteoarthritis Status: Acute Qualifiers: Laterality: bilateral (7) Nicotine dependence unspecified, with withdrawal Status: Acute Qualifiers: Nicotine product type: cigarettes Qualified Code(s): F17.213 - Nicotine dependence, cigarettes, with withdrawal (8) DVT prophylaxis Status: Acute (9) Advance care planning Status: Acute Core Measure Documentation - Palliative Care Palliative Care/ Comfort Measures: Not Applicable - Core Measures Any of the following diagnoses?: heart failure - Heart Failure Discharge Requirements MIKKI/ARB for LVSD if EF <40%: Yes Beta tracy at discharge: Yes Exam - Constitutional Vitals: Temp Pulse Resp BP Pulse Ox 98.2 F 85 18 146/82 100 10/11/19 08:00 10/11/19 08:00 10/11/19 08:00 10/11/19 08:00 10/11/19 09:31 General appearance: Present: no acute distress, well-nourished - EENT Eyes: Present: PERRL ENT: hearing intact, clear oral mucosa - Neck Neck: Present: supple, normal ROM - Respiratory Respiratory effort: normal Respiratory: bilateral: CTA - Cardiovascular Heart Sounds: Present: S1 & S2. Absent: rub, click - Extremities Extremities: pulses symmetrical, No edema Peripheral Pulses: within normal limits - Abdominal General gastrointestinal: Present: soft, non-tender, non-distended, normal bowel sounds Male genitourinary: Present: normal - Integumentary Integumentary: Present: clear, warm, dry - Musculoskeletal Musculoskeletal: gait normal, strength equal bilaterally - Psychiatric Psychiatric: appropriate mood/affect, intact judgment & insight - Neurologic Neurologic: CNII-XII intact, moves all extremities Plan Activity: advance as tolerated Follow up with: DEANNE ARREGUIN MD [Primary Care Provider] - 3-5 Days Prescriptions: levoFLOXacin [Levaquin TAB] 500 mg PO QDAY #6 tablet Prednisone [predniSONE 10 mg (6-Day Pack, 21 Tabs)] 10 mg PO .TAPER #1 tab.ds.pk
[2019-10-11] MEDS: methylPREDNISolone Sod Succinate 40 MG/1 ML INJ IV SCH (11:33)
--- NOTE | 2019-10-11 14:38 | Progress Note ---
Assessment and Plan Cultures: Blood culture 10/08/2019 no growth Assessment: 74 years old male with history of CAD/ID status post CABG, CHF with EF 15%, COPD, CVA, diabetes, hypertension, Crohn's disease, admitted on due to 4-day history of cough, generalized malaise, progressive shortness of breath. P atient is currently sleepy and confused unable to provide history. On arrival, temperature 96.5, rest of vital signs stable. Initial WBC 7.8. Hemoglobin 9.7. Creatinine 1.2. CK 279. Troponin 0 0.13. Procalcitonin 0.09. D-dimer 629. Blood culture 10/08/2019 pending. Chest x-ray with bilateral pulmonary opacities. #Acute hypoxemic respiratory failure: Possible due to volume overload versus COPD #Volume overload versus COPD: on IV steroids. Likely volume overload. COVID NEGATIVE. Inflammatory markers for COVID not elevated. Ferritin 83. LDH 215. CRP 6.4. D-dimer 629. Bacterial pneumonia less likely given normal procalcitonin. #Acute encephalopathy: Of unclear etiology possibly due to hypoxemia, resolved #Elevated troponins/CPK Cardiology consult - pending Transthoracic echo - pendingt Monitor off antibiotics Will sign off Gaby Gomez MD Infectious Diseases [employer] [facility] M [phone] O [phone] Subjective Date of service: 10/11/19 Principal diagnosis: acute resp failure Interval history: Feels tired and weak, no SOB on room air Objective - Exam Narrative Exam: General appearance: Alert in NAD Eyes: anicteric sclerae, moist conjunctivae; no lid-lag; PERRLA HENT: Atraumatic; oropharynx clear Lungs: marion rhonchi CV: RRR no murmur Abdomen: Soft, non-tender Extremities: no edema, no cyanosis Skin: No rash. Psych: no agitated Neuro: alert and oriented x 3. Moving all extermities - Constitutional Vitals: Vital Signs Temp Pulse Resp BP Pulse Ox 98.3 F 81 19 137/79 97 10/11/19 12:00 10/11/19 12:00 10/11/19 12:00 10/11/19 12:00 10/11/19 12:00 Temperature -Last 24 Hours Temperature 98.3 F Temperature 98.2 F Temperature 98.2 F Temperature 98.0 F Temperature 98.0 F Temperature 98.0 F Temperature 97.8 F - Labs CBC & Chem 7: 10/09/19 05:02 10/09/19 05:02
[2019-10-11 16:57] VITALS: BP 133/76
== END 2019-10-11 19:25 | disposition home health service (06) | DRG 193 ==
LOC: ED 11:09 → IMCU 14:33 → 4A 10-10 00:57
PROVIDERS: ADMIT Internal Medicine; ATTEND Internal Medicine
PROC: 5A09357 Assistance with Respiratory Ventilation, Less than 24 Consecutive Hours, Continuous Positive Airway Pressure (ICD-10-PCS; principal; 2019-10-08)
DX: J15.9 Unspecified bacterial pneumonia (principal); J96.01 Acute respiratory failure with hypoxia; G93.40 Encephalopathy, unspecified; E87.2 Acidosis; J44.0 Chronic obstructive pulmonary disease with (acute) lower respiratory infection; I50.22 Chronic systolic (congestive) heart failure; F17.213 Nicotine dependence, cigarettes, with withdrawal; R65.10 Systemic inflammatory response syndrome (SIRS) of non-infectious origin without acute organ dysfunction; K50.90 Crohn's disease, unspecified, without complications; E87.1 Hypo-osmolality and hyponatremia; I25.10 Atherosclerotic heart disease of native coronary artery without angina pectoris; E11.9 Type 2 diabetes mellitus without complications; I25.5 Ischemic cardiomyopathy; I11.0 Hypertensive heart disease with heart failure; M19.90 Unspecified osteoarthritis, unspecified site; E87.70 Fluid overload, unspecified; I25.2 Old myocardial infarction; Z71.6 Tobacco abuse counseling; Z95.1 Presence of aortocoronary bypass graft; Z86.73 Personal history of transient ischemic attack (TIA), and cerebral infarction without residual deficits; Z03.818 Encounter for observation for suspected exposure to other biological agents ruled out; Z88.2 Allergy status to sulfonamides; Z79.899 Other long term (current) drug therapy; Z79.82 Long term (current) use of aspirin; Z95.5 Presence of coronary angioplasty implant and graft; Z82.49 Family history of ischemic heart disease and other diseases of the circulatory system; Z83.3 Family history of diabetes mellitus
CPT/HCPCS: 36415; 71045; 80048; 80053; 80061; 81001; 82140; 82550; 82553; 82728; 82941; 82947; 82962; 83615; 83690; 84145; 84484; 85025; 85379; 86140; 87040; 93005; 94644; 94760; 99406; G0378; J0456; J0696; J2060; J2405; J2920; J7050; U0003

== ENCOUNTER 2020-02-05 09:33 | Emergency (ER) | payer MEDICARE ==
--- NOTE | 2020-02-05 10:46 | Emergency Department Report ---
ED Fall HPI - General Chief Complaint: Fall Stated Complaint: FALL Time Seen by Provider: 02/05/20 10:23 Source: patient, EMS Mode of arrival: Stretcher - History of Present Illness Initial Comments: Patient is 75 years old male with history of hypertension, diabetes, COPD, CVA w ith bilateral weakness. Patient uses a walker. Patient brought to the emergency room via EMS for evaluation after a fall this morning. Patient stated that he tripped and fell landed on his left side and stated that he hit his back of the head. Patient is living with his son. Patient was seen here yesterday for evaluation after a fall also. Patient complaining of mild headache. Patient denied any nausea or vomiting. He is complaining of left elbow pain. No other injuries. MD Complaint: fall -: Sudden, This morning Fall From: standing Fall Witnessed: yes, by family Place Fall Occurred: home Loss of Consciousness: none Prolonged Down Time?: no Location: head Location - Extremities: Left: Elbow Severity: moderate Quality: sharp Context: tripped/slipped - Related Data Home Medications Medication Instructions Recorded Confirmed Last Taken Gabapentin 300 mg PO BID 09/19/16 01/29/20 09/18/16 300 mg Metformin HCl [metFORMIN ER 500 mg PO BIDWM 03/28/17 01/29/20 Unknown Gastric] Diphenoxylate/Atropine [Lomotil] 1 tab PO Q8H PRN 01/15/18 01/29/20 Unknown Insulin Lispro [HumaLOG VIAL] See Protocol SQ ACHS 01/15/18 01/29/20 Unknown Promethazine [Phenergan] 25 mg PO Q4H PRN 01/15/18 01/29/20 Unknown Previous Rx's Medication Instructions Recorded Last Taken Type AtorvaSTATin 10 mg PO QHS #30 tablet 12/21/17 Unknown Rx Ranolazine ER [Ranexa ER] 500 mg PO BID #60 tablet 12/21/17 Unknown Rx Aspirin 325 mg PO QDAY #30 tablet 01/12/18 Unknown Rx Albuterol Mdi (or & Nicu Only) 2 puff IH Q4HR PRN #1 inhalation 12/21/18 Unknown Rx [ProAir HFA Inhaler] Furosemide [Lasix TAB] 20 mg PO QDAY #30 tablet 02/03/20 Unknown Rx Metoprolol Xl [Metoprolol 25 mg PO DAILY #60 tablet 02/03/20 Unknown Rx SUCCINATE ER TAB] levETIRAcetam [Keppra TAB] 500 mg PO BID #120 tablet 02/03/20 Unknown Rx levoFLOXacin [Levaquin TAB] 500 mg PO QDAY #5 tablet 02/03/20 Unknown Rx Allergies Allergy/AdvReac Type Severity Reaction Status Date / Time Sulfa (Sulfonamide Allergy Rash Verified 07/30/18 17:44 Antibiotics) ED Review of Systems ROS: Stated complaint: FALL Other details as noted in HPI Comment: All other systems reviewed and negative Constitutional: denies: chills, fever Respiratory: denies: cough, shortness of breath, SOB with exertion, wheezing Cardiovascular: denies: chest pain, palpitations Gastrointestinal: denies: abdominal pain, nausea, vomiting, diarrhea, constipa tion, hematemesis, melena, hematochezia Musculoskeletal: denies: back pain Neurological: headache. denies: weakness, numbness, paresthesias, confusion, abnormal gait ED Past Medical Hx - Past Medical History Hx Hypertension: Yes Hx CVA: Yes (x2 bilateral weakness,walks with walker) Hx Heart Attack/AMI: Yes (x 6) Hx Congestive Heart Failure: Yes Hx Diabetes: Yes Hx Deep Vein Thrombosis: No Hx Pulmonary Embolism: No Hx Arthritis: Yes Hx Seizures: No Hx Asthma: No Hx COPD: Yes Hx Tuberculosis: No Hx Dementia: No Hx HIV: No Additional medical history: crohns, pneumonia. Diverticulitis - Surgical History Hx Coronary Stent: Yes Hx Pacemaker: No Hx Internal Defibrillator: No Additional Surgical History: angioplasty x 6 - Social History Smoking Status: Current Every Day Smoker Substance Use Type: Alcohol - Medications Home Medications: Home Medications Medication Instructions Recorded Confirmed Last Taken Type Gabapentin 300 mg PO BID 09/19/16 01/29/20 09/18/16 History 300 mg Metformin HCl [metFORMIN ER 500 mg PO BIDWM 03/28/17 01/29/20 Unknown History Gastric] AtorvaSTATin 10 mg PO QHS #30 tablet 12/21/17 01/29/20 Unknown Rx Ranolazine ER [Ranexa ER] 500 mg PO BID #60 tablet 12/21/17 01/29/20 Unknown Rx Aspirin 325 mg PO QDAY #30 tablet 01/12/18 01/29/20 Unknown Rx Diphenoxylate/Atropine [Lomotil] 1 tab PO Q8H PRN 01/15/18 01/29/20 Unknown History Insulin Lispro [HumaLOG VIAL] See Protocol SQ ACHS 01/15/18 01/29/20 Unknown History Promethazine [Phenergan] 25 mg PO Q4H PRN 01/15/18 01/29/20 Unknown History Albuterol Mdi (or & Nicu Only) 2 puff IH Q4HR PRN #1 inhalation 12/21/18 01/29/20 Unknown Rx [ProAir HFA Inhaler] Furosemide [Lasix TAB] 20 mg PO QDAY #30 tablet 02/03/20 Unknown Rx Metoprolol Xl [Metoprolol 25 mg PO DAILY #60 tablet 02/03/20 Unknown Rx SUCCINATE ER TAB] levETIRAcetam [Keppra TAB] 500 mg PO BID #120 tablet 02/03/20 Unknown Rx levoFLOXacin [Levaquin TAB] 500 mg PO QDAY #5 tablet 02/03/20 Unknown Rx ED Physical Exam - General Limitations: Physical Limitation General appearance: alert, in no apparent distress - Head Head exam: Present: atraumatic, normocephalic, normal inspection - Eye Eye exam: Present: normal appearance - ENT ENT exam: Present: normal exam, normal orophraynx, mucous membranes moist - Neck Neck exam: Present: normal inspection, full ROM. Absent: tenderness, meningismus, lymphadenopathy, thyromegaly - Respiratory Respiratory exam: Present: normal lung sounds bilaterally - Cardiovascular Cardiovascular Exam: Present: regular rate, normal rhythm, normal heart sounds - GI/Abdominal GI/Abdominal exam: Present: soft, normal bowel sounds. Absent: distended, tenderness, guarding, rebound, rigid, diminished bowel sounds, organomegaly, mass, bruit, pulsatile mass, hernia - Extremities Exam Extremities exam: Present: other (abrasion) - Back Exam Back exam: Present: normal inspection, full ROM. Absent: CVA tenderness (R), CVA tenderness (L), muscle spasm, paraspinal tenderness, vertebral tenderness - Neurological Exam Neurological exam: Present: alert, oriented X3, CN II-XII intact. Absent: motor sensory deficit - Psychiatric Psychiatric exam: Present: normal mood - Skin Skin exam: Present: warm, abrasion ED Course Vital Signs 02/05/20 02/05/20 02/05/20 09:49 10:03 10:16 Temperature 98.6 F Pulse Rate 84 77 87 Respiratory 22 17 13 Rate Blood Pressure 126/83 126/83 O2 Sat by Pulse 100 100 100 Oximetry 02/05/20 02/05/20 02/05/20 10:30 10:46 11:00 Temperature Pulse Rate 82 80 81 Respiratory 22 15 21 Rate Blood Pressure 128/81 128/81 127/80 O2 Sat by Pulse 99 99 100 Oximetry 02/05/20 02/05/20 02/05/20 11:16 11:58 12:00 Temperature Pulse Rate 82 85 85 Respiratory 22 20 Rate Blood Pressure 128/81 128/81 128/81 O2 Sat by Pulse 100 98 99 Oximetry 02/05/20 02/05/20 02/05/20 12:16 12:30 12:46 Temperature Pulse Rate 79 81 83 Respiratory 14 18 18 Rate Blood Pressure 123/84 119/80 123/84 O2 Sat by Pulse 98 99 100 Oximetry 02/05/20 02/05/20 02/05/20 13:00 13:16 13:30 Temperature Pulse Rate 78 80 79 Respiratory 15 20 21 Rate Blood Pressure 132/81 119/80 126/82 O2 Sat by Pulse 100 Oximetry 02/05/20 02/05/20 02/05/20 13:46 14:00 14:16 Temperature Pulse Rate 81 81 82 Respiratory 20 17 20 Rate Blood Pressure 132/81 140/83 126/82 O2 Sat by Pulse 100 100 Oximetry 02/05/20 02/05/20 02/05/20 14:30 14:46 15:00 Temperature Pulse Rate 90 81 78 Respiratory 13 23 21 Rate Blood Pressure 126/82 140/83 131/82 O2 Sat by Pulse 99 96 Oximetry 02/05/20 02/05/20 02/05/20 15:16 15:30 15:46 Temperature Pulse Rate 84 83 82 Respiratory 18 23 17 Rate Blood Pressure 131/80 126/79 131/82 O2 Sat by Pulse 95 96 97 Oximetry 02/05/20 16:00 Temperature Pulse Rate 84 Respiratory 22 Rate Blood Pressure 120/77 O2 Sat by Pulse 100 Oximetry - Consultations Consultation #1: 02/05/20 12:44 Case management consulted at this is a second visit in a row for this patient after fall. ED Medical Decision Making - Lab Data Result diagrams: 02/05/20 10:50 02/05/20 10:50 - Radiology Data Radiology results: report reviewed - Medical Decision Making Patient is 75 years old male with history of hypertension, diabetes, COPD, CVA with bilateral weakness. Patient uses a walker. Patient brought to the emergency room via EMS for evaluation after a fall this morning. Patient stated that he tripped and fell landed on his left side and stated that he hit his back of the head. Patient is living with his son. Patient was seen here yesterday for evaluation after a fall also. Patient complaining of mild headache. Patient denied any nausea or vomiting. He is complaining of left elbow pain. No other injuries. CT brain is negative for acute finding. Left elbow x-ray showed no fracture or dislocation. Labs reviewed and is unremarkable except for mild hypokalemia for which patient received K. Dur 40 mEq p.o. Patient has been evaluated by jose frank. Patient son is coming to take patient home and to follow-up with his primary doctor and call social service also for placement if patient needed. Critical care attestation.: If time is entered above; I have spent that time in minutes in the direct care of this critically ill patient, excluding procedure time. ED Disposition Clinical Impression: Head injury, Elbow contusion, Frequent falls Disposition: DC-01 TO HOME OR SELFCARE Is pt being admited?: No Condition: Stable Instructions: Fall Prevention (ED), Fall Prevention for Older Adults (ED) Referrals: PRIMARY CARE, [Primary Care Provider] - 3-5 Days
--- NOTE | 2020-02-05 11:12 | XRay Report ---
PORTABLE LEFT ELBOW 2 VIEWS INDICATION / CLINICAL INFORMATION: Fall with left elbow pain. COMPARISON: None available. FINDINGS: BONES / JOINT(S): There are mild degenerative changes. There is no evidence of fracture, subluxation or joint effusion. SOFT TISSUES: There is mild soft tissue swelling along the posterior aspect of the elbow. ADDITIONAL FINDINGS: None. Signer Name: Joaquin Perez MD Signed: 02/05/2020 11:08 AM Workstation Name: [id number]
[2020-02-05 11:45] LABS: Basophils % (Auto) 0.4 % (0.0-1.8); Eosinophils % (Auto) 0.1 % (0.0-4.3); Hematocrit 29.9 % (35.5-45.6); Hemoglobin 9.5 gm/dl (11.8-15.2); Lymphocytes # (Auto) 0.9 K/mm3 (1.2-5.4); Mean Corpuscular HGB Conc 32 % (32-34); Mean Corpuscular Volume 76 fl (84-94); Monocytes # (Auto) 0.4 K/mm3 (0.0-0.8); Monocytes % (Auto) 6.8 % (0.0-7.3); Platelet Count 179 K/mm3 (140-440); Red Blood Count 3.94 M/mm3 (3.65-5.03)
[2020-02-05 11:48] LABS: Red Cell Distribution Width 23.9 % (13.2-15.2)
[2020-02-05 11:56] LABS: Calcium 8.1 mg/dL (8.4-10.2)
--- NOTE | 2020-02-05 12:02 | Cat Scan Report ---
CT head/brain wo con INDICATION: Fall. TECHNIQUE: Routine CT head without contrast. All CT scans at this location are performed using CT dos e reduction for ALARA by means of automated exposure control. COMPARISON: CT head 01/27/2020 FINDINGS: BRAIN / INTRACRANIAL CONTENTS: No acute hemorrhage, mass effect, midline shift, or hydrocephalus. No appreciable acute large territorial or acute lacunar infarct. Stable appearing punctate remote lacuna r type infarcts in the bilateral basal ganglia. Generalized cerebral volume loss with compensatory en largement of the sulci and ventricles. Moderate degree of chronic microvascular ischemia. There is fo shamir encephalomalacia in the right temporal/frontal lobe from prior ischemia or injury. No extra-axial blood or fluid collection. ORBITS: No significant abnormality of visualized orbits. SINUSES / MASTOIDS: No significant abnormality of visualized sinuses and mastoid air cells. ADDITIONAL FINDINGS: None. IMPRESSION: 1. No acute intracranial abnormality. 2. Generalized cerebral volume loss and sequela of chronic microvascular ischemia. 3. Right temporal/frontal encephalomalacia from prior ischemia/injury. Remote bilateral basal ganglia lacunar type infarcts. Signer Name: Joaquin Beatty MD Signed: 02/05/2020 11:57 AM Workstation Name: [id number]
[2020-02-05] MEDS ORDERED: POTASSIUM CHLORIDE ER 20 MEQ TAB PO ONE (12:43)
[2020-02-06] MEDS ORDERED: ALBUTEROL 8.5 GM MDI INHALATION IH PRN (11:41)
[2020-02-06] MEDS ORDERED: DIPHENOXYLATE/ATROPINE TAB PO PRN (11:41)
[2020-02-06] MEDS ORDERED: METFORMIN HCL 500 MG PO SCH (11:45)
[2020-02-06] MEDS ORDERED: METOPROLOL SUCCINATE XL 25 MG TAB PO SCH (12:00)
[2020-02-06] MEDS ORDERED: ASPIRIN 325 MG TAB PO SCH (12:00)
[2020-02-06] MEDS: levETIRAcetam 500 MG TAB PO SCH ×2 (12:32→22:10)
[2020-02-06] MEDS: metFORMIN 500 MG TAB PO SCH ×2 (13:20→17:51)
[2020-02-06 22:56] VITALS: BP 123/82
== END 2020-02-06 22:42 | disposition home or self-care (01) ==
LOC: ED 09:33
DX: S50.02XA Contusion of left elbow, initial encounter (principal); S09.90XA Unspecified injury of head, initial encounter; E11.9 Type 2 diabetes mellitus without complications; J44.9 Chronic obstructive pulmonary disease, unspecified; I11.0 Hypertensive heart disease with heart failure; I50.9 Heart failure, unspecified; I25.2 Old myocardial infarction; M19.90 Unspecified osteoarthritis, unspecified site; F17.200 Nicotine dependence, unspecified, uncomplicated; Z98.890 Other specified postprocedural states; Z86.73 Personal history of transient ischemic attack (TIA), and cerebral infarction without residual deficits; Z79.899 Other long term (current) drug therapy; Z88.2 Allergy status to sulfonamides; W17.89XA Other fall from one level to another, initial encounter; Y93.89 Activity, other specified; Y92.099 Unspecified place in other non-institutional residence as the place of occurrence of the external cause; Y99.8 Other external cause status
CPT/HCPCS: 36415; 70450; 73070; 80048; 82962; 85025; 99285; A9270; 80320; G0480

== ENCOUNTER 2020-04-10 19:26 | Inpatient (IN) | payer MEDICARE ==
[2020-04-10] MEDS ORDERED: ALBUTEROL 2.5 MG/3 ML NEBU IH ONE (19:34)
[2020-04-10] MEDS ORDERED: IPRATROPIUM 0.02% NEBU 2.5 ML IH ONE (19:34)
[2020-04-10] MEDS ORDERED: methylPREDNISolone Sod Succinate 125 MG/2 ML INJ IV ONE (19:35)
[2020-04-10] MEDS ORDERED: LORazepam 2 MG/ML VIAL IV ONE (19:37)
[2020-04-10] MEDS ORDERED: ONDANSETRON 4 MG/2 ML INJ IV ONE (19:37)
[2020-04-10] MEDS ORDERED: MORPHINE 4 MG/1 ML INJ IV ONE (19:37)
[2020-04-10] MEDS ORDERED: FUROSEMIDE 40 MG/4 ML INJ IV ONE (19:38)
--- NOTE | 2020-04-10 19:46 | Emergency Department Report ---
ED Shortness of Breath HPI - General Chief Complaint: Dyspnea/Respdistress Stated Complaint: OZZY/VTACH Time Seen by Provider: 04/10/20 19:33 Source: patient, EMS Mode of arrival: Stretcher Limitations: Other - History of Present Illness Initial Comments: CC: shortness of breath and abdominal pain HPI: Mr. Miranda is a 75 yo male with hx of CAD, MT, DM, systolic CHF EF 15%, HTN, crohn's disease, osteoarthritis, anemia, seizure, who presents with sh ortness of breath and abdominal pain. Symptoms began today. He arrived via EMS. EMS EKG revealed nonsustained V tach. Patient unable to give much hx due to severe work of breathing. MD Complaint: shortness of breath -: Gradual, This morning Severity: severe Consistency: intermittent Improves With: nothing Worsens With: exertion Known History Of: COPD, congestive heart failure Context: other (Recent hospitalization 2 months ago) Associated Symptoms: other (Abdominal pain) Treatments Prior to Arrival: none - Related Data Home Medications Medication Instructions Recorded Confirmed Last Taken Gabapentin 300 mg PO BID 09/19/16 01/29/20 09/18/16 300 mg Metformin HCl [metFORMIN ER 500 mg PO BIDWM 03/28/17 01/29/20 Unknown Gastric] Diphenoxylate/Atropine [Lomotil] 1 tab PO Q8H PRN 01/15/18 01/29/20 Unknown Insulin Lispro [HumaLOG VIAL] See Protocol SQ ACHS 01/15/18 01/29/20 Unknown Promethazine [Phenergan] 25 mg PO Q4H PRN 01/15/18 01/29/20 Unknown Previous Rx's Medication Instructions Recorded Last Taken Type AtorvaSTATin 10 mg PO QHS #30 tablet 12/21/17 Unknown Rx Ranolazine ER [Ranexa ER] 500 mg PO BID #60 tablet 12/21/17 Unknown Rx Aspirin 325 mg PO QDAY #30 tablet 01/12/18 Unknown Rx Albuterol Mdi (or & Nicu Only) 2 puff IH Q4HR PRN #1 inhalation 12/21/18 Unknown Rx [ProAir HFA Inhaler] Furosemide [Lasix TAB] 20 mg PO QDAY #30 tablet 02/03/20 Unknown Rx Metoprolol Xl [Metoprolol 25 mg PO DAILY #60 tablet 02/03/20 Unknown Rx SUCCINATE ER TAB] levETIRAcetam [Keppra TAB] 500 mg PO BID #120 tablet 02/03/20 Unknown Rx levoFLOXacin [Levaquin TAB] 500 mg PO QDAY #5 tablet 02/03/20 Unknown Rx Allergies Allergy/AdvReac Type Severity Reaction Status Date / Time Sulfa (Sulfonamide Allergy Rash Verified 07/30/18 17:44 Antibiotics) ED Review of Systems ROS: Stated complaint: OZZY/VTACH Other details as noted in HPI Comment: Unobtainable due to pts medical conditions (Limited due to severe work of breathing) ED Past Medical Hx - Past Medical History Previous Medical History?: Yes Hx Hypertension: Yes Hx CVA: Yes (x2 bilateral weakness,walks with walker) Hx Heart Attack/AMI: Yes (x 6) Hx Congestive Heart Failure: Yes Hx Diabetes: Yes Hx Deep Vein Thrombosis: No Hx Pulmonary Embolism: No Hx Arthritis: Yes Hx Seizures: No Hx Asthma: No Hx COPD: Yes Hx Tuberculosis: No Hx Dementia: No Hx HIV: No Additional medical history: crohns, pneumonia. Diverticulitis - Surgical History Past Surgical History?: Yes Hx Coronary Stent: Yes Hx Pacemaker: No Hx Internal Defibrillator: No Additional Surgical History: angioplasty x 6 - Social History Smoking Status: Current Every Day Smoker Substance Use Type: Alcohol - Medications Home Medications: Home Medications Medication Instructions Recorded Confirmed Last Taken Type Gabapentin 300 mg PO BID 09/19/16 01/29/20 09/18/16 History 300 mg Metformin HCl [metFORMIN ER 500 mg PO BIDWM 03/28/17 01/29/20 Unknown History Gastric] AtorvaSTATin 10 mg PO QHS #30 tablet 12/21/17 01/29/20 Unknown Rx Ranolazine ER [Ranexa ER] 500 mg PO BID #60 tablet 12/21/17 01/29/20 Unknown Rx Aspirin 325 mg PO QDAY #30 tablet 01/12/18 01/29/20 Unknown Rx Diphenoxylate/Atropine [Lomotil] 1 tab PO Q8H PRN 01/15/18 01/29/20 Unknown History Insulin Lispro [HumaLOG VIAL] See Protocol SQ ACHS 01/15/18 01/29/20 Unknown History Promethazine [Phenergan] 25 mg PO Q4H PRN 01/15/18 01/29/20 Unknown History Albuterol Mdi (or & Nicu Only) 2 puff IH Q4HR PRN #1 inhalation 12/21/18 01/29/20 Unknown Rx [ProAir HFA Inhaler] Furosemide [Lasix TAB] 20 mg PO QDAY #30 tablet 02/03/20 Unknown Rx Metoprolol Xl [Metoprolol 25 mg PO DAILY #60 tablet 02/03/20 Unknown Rx SUCCINATE ER TAB] levETIRAcetam [Keppra TAB] 500 mg PO BID #120 tablet 02/03/20 Unknown Rx levoFLOXacin [Levaquin TAB] 500 mg PO QDAY #5 tablet 02/03/20 Unknown Rx ED Physical Exam - General Limitations: Other General appearance: alert, in distress, other (Slightly agitated, severe work of breathing,) - Head Head exam: Present: atraumatic, normocephalic - Eye Eye exam: Present: normal appearance. Absent: scleral icterus, conjunctival injection - ENT ENT exam: Present: mucous membranes moist - Neck Neck exam: Present: normal inspection, full ROM - Respiratory Respiratory exam: Present: respiratory distress, accessory muscle use, decreased breath sounds, prolonged expiratory - Cardiovascular Cardiovascular Exam: Present: normal rhythm, tachycardia, normal heart sounds. Absent: rubs, gallop - GI/Abdominal GI/Abdominal exam: Present: soft, normal bowel sounds. Absent: distended, tenderness, guarding, rebound - Rectal Rectal exam: Present: deferred - Extremities Exam Extremities exam: Present: normal inspection - Neurological Exam Neurological exam: Present: alert, oriented X3 - Psychiatric Psychiatric exam: Present: normal affect, agitated - Skin Skin exam: Present: warm, dry, intact, normal color. Absent: rash ED Course Vital Signs 04/10/20 04/10/20 04/10/20 19:45 20:05 20:30 Pulse Rate 116 H 114 H 113 H Pulse Rate [ Throughout] Respiratory 45 H 30 H 22 Rate Respiratory Rate [ Throughout] Blood Pressure 138/84 108/19 137/78 O2 Sat by Pulse 98 98 100 Oximetry 04/10/20 04/10/20 04/10/20 20:35 20:38 23:20 Pulse Rate Pulse Rate [ 107 H Throughout] Respiratory 22 24 Rate Respiratory 30 H Rate [ Throughout] Blood Pressure O2 Sat by Pulse 100 97 Oximetry ED Medical Decision Making - Lab Data Result diagrams: 04/10/20 20:04 04/10/20 20:51 - EKG Data 04/10/20 23:31 EKG obtained 2326 EKG interpreted by me Sinus tachycardia rightward axis right bundle branch block no ST elevation ventricular trigeminy 04/10/20 23:33 EKG unchanged from 01/27/2020 - Radiology Data Radiology results: report reviewed, image reviewed Ordering Physician: Va Gupta MD Date of Service: 04/10/20 Procedure(s): XR chest 1V ap Accession Number(s): [id number] cc: Va Gupta MD Fluoro Time In Minutes: XR chest 1V ap INDICATION / CLINICAL INFORMATION: Dyspnea. COMPARISON: 02/01/2020 FINDINGS: The cardiac silhouette is enlarged without overt failure. There are patchy bibasilar airspace opacities. Stable small left pleural effusion and/or scarring. No pneumothorax. IMPRESSION: 1. Patchy bibasilar airspace opacities, may reflect pulmonary edema or pneumonia. 2. Stable small left pleural effusion and/or pleural scarring. - Medical Decision Making 1. acute on chronic respitaory failure. Suspect COPD exacerbation as main cause. small bilateral pleural effusions on CT. CHF is also a contributing etiology. BIPAP provided patient comfort. Patient was treated with antibiotics, IV steroid, IV diuresis. ABG revealed metabolic acidosis with respiratory compensation hyperventilation 2. Abdominal pain history of Crohn's disease: CT abdomen pelvis shows diffuse wall thickening and stranding involving the descending and sigmoid colon, patient received pain control as well as antibiotics to address possible infectious lung process. Steroids also initially were initiated for COPD exacerbation. 3. Abnormal liver function tests: According to CT abdomen pelvis there is no significant biliary or liver abnormality. Patient does have a history of alcohol use. Unclear etiology at this time 4. Acute kidney injury: Patient is on diuretic therapy. Suspect KIRT etiology multifactorial with use of diuretic therapy as well as acute illness. Hyperkalemia treated appropriately with sodium bicarbonate, calcium gluconate, insulin dextrose 5. Frequent nonsustained ventricular tachycardia: I spoke with senior product designer on- call for patient's primary senior product designer Dr. Cohn. Cardiology recommended 400 mg p.o. amiodarone and correction of electrolyte abnormalities. Patient is admitted to the IM in fair condition. Critical Care Time: Yes Critical care time in (mins) excluding proc time.: 40 Critical care attestation.: If time is entered above; I have spent that time in minutes in the direct care of this critically ill patient, excluding procedure time. 40 minutes of critical care time excluding procedures were used in the care of the patient. I came immediately to the bedside upon patient's arrival. I obtained history from EMS at the bedside. I discussed treatment plan with the nursing team members. I reviewed electronic record. Patient required multiple interventions and reassessments. ED Disposition Clinical Impression: Acute and chronic respiratory failure, COPD with acute exacerbation, Acute exacerbation of CHF (congestive heart failure), Crohn's disease, Colitis, KIRT (acute kidney injury), Nonsustained ventricular tachycardia Disposition: OP ADMIT IP TO THIS HOSP Is pt being admited?: Yes Does the pt Need Aspirin: No Condition: Fair Instructions: Chronic Obstructive Pulmonary Disease (ED)
--- NOTE | 2020-04-10 20:15 | XRay Report ---
XR chest 1V ap INDICATION / CLINICAL INFORMATION: Dyspnea. COMPARISON: 02/01/2020 FINDINGS: The cardiac silhouette is enlarged without overt failure. There are patchy bibasilar airspace opaciti es. Stable small left pleural effusion and/or scarring. No pneumothorax. IMPRESSION: 1. Patchy bibasilar airspace opacities, may reflect pulmonary edema or pneumonia. 2. Stable small left pleural effusion and/or pleural scarring. Signer Name: Juanito Sheffield MD Signed: 04/10/2020 8:10 PM Workstation Name: [id number]
[2020-04-10 20:34] LABS: Basophils # (Auto) 0.1 K/mm3 (0.0-0.1); Eosinophils % (Auto) 0.6 % (0.0-4.3); Hematocrit 29.9 % (35.5-45.6); Hemoglobin 9.3 gm/dl (11.8-15.2); Lymphocytes # (Auto) 0.8 K/mm3 (1.2-5.4); Lymphocytes % (Auto) 10.9 % (13.4-35.0); Mean Corpuscular HGB Conc 31 % (32-34); Mean Corpuscular Volume 80 fl (84-94); Monocytes # (Auto) 0.4 K/mm3 (0.0-0.8); Platelet Count 261 K/mm3 (140-440); Red Blood Count 3.72 M/mm3 (3.65-5.03)
[2020-04-10 20:45] LABS: ABG Base Excess -12.8 mmol/L (-2.0-3.0); ABG HCO3 11.8 mmol/L (20.0-26.0); ABG Methemoglobin 0.4 % (0.0-1.5); ABG Oxygen Saturation 99.4 % (95.0-99.0); ABG PCO2 23.3 mm Hg; ABG PH 7.32 pH Units (7.350-7.450); ABG PO2 240.7 mm Hg (80.0-90.0)
[2020-04-10] MEDS ORDERED: VANCOMYCIN 1,750 MG in SODIUM CHLORIDE 0.9% 500 ML 500 ML IV ONE (20:45)
[2020-04-10 20:46] LABS: Red Cell Distribution Width 21.7 % (13.2-15.2)
[2020-04-10] MEDS ORDERED: VANCOMYCIN PHARMACY TO DOSE IV SCH (21:00)
[2020-04-10 21:33] LABS: Alanine Aminotransferase 83 units/L (7-56); BUN/Creatinine Ratio 15; Blood Urea Nitrogen 25 mg/dL (9-20); Calcium 8.6 mg/dL (8.4-10.2)
[2020-04-10 21:34] LABS: Albumin 3.5 g/dL (3.9-5)
[2020-04-10 21:59] LABS: C-Reactive Protein 5.6 mg/dL (0.00-1.30)
[2020-04-10 22:00] LABS: Alanine Aminotransferase 161 units/L (7-56); Albumin 3.6 g/dL (3.9-5); BUN/Creatinine Ratio 15; Blood Urea Nitrogen 26 mg/dL (9-20); Calcium 8.7 mg/dL (8.4-10.2)
[2020-04-10 22:01] LABS: Chol/HDL Ratio 4.34 %; HDL Cholesterol 41 mg/dL (40-59); LDL Cholesterol,Direct 123 mg/dL (50-130)
[2020-04-10] MEDS: CEFEPIME/NS 2 GM/100 ML 2 GM/100 ML BAG IV SCH (22:25)
[2020-04-10] MEDS ORDERED: DEXTROSE 50% IN WATER (25GM) 50 ML SYRINGE IV ONE (22:29)
[2020-04-10] MEDS ORDERED: INSULIN REGULAR, HUMAN 100 UNIT/ML 3ML VIAL IV ONE (22:29)
[2020-04-10] MEDS ORDERED: CALCIUM GLUCONATE 1,000 MG in SODIUM CHLORIDE 0.9% 100 ML IV ONE (22:29)
[2020-04-10] MEDS ORDERED: SODIUM BICARB 8.4% 50 MEQ/50 ML SYRINGE IV ONE (22:29)
--- NOTE | 2020-04-10 23:35 | Cat Scan Report ---
CT ABDOMEN AND PELVIS WITHOUT CONTRAST HISTORY: Abdominal pain, abnormal liver function test COMPARISON: 07/30/2018 TECHNIQUE: Routine abdominal and pelvic CT exam performed without contrast. Lack of intravenous cont rast limits evaluation of the vascular and solid organs.. All CT scans at this location are performed using CT dose reduction for ALARA by means of automated exposure control. FINDINGS: CT ABDOMEN: Lung Bases: There are small bilateral pleural effusions. Liver: The liver appears grossly normal. Biliary: No significant abnormality. Spleen: No significant abnormality. Unenlarged. Pancreas: No significant abnormality. Adrenals: No significant abnormality. Kidneys: No acute findings. Mild chronic atrophy and scarring in both kidneys. Lymphatics: No lymphadenopathy. Vasculature: There is diffuse atherosclerotic calcification with an infrarenal abdominal aortic aneur ysm measuring 2.4 cm, similar to the prior exam. Bowel/Peritoneum: There appears to be focal wall thickening and edema in the descending and sigmoid c olon suggestive of colitis. There is no obstruction, free air, or pneumatosis. Appendix not visualize d. No pericecal inflammation. CT PELVIC: : No significant abnormality. Lymphatics: No lymphadenopathy. Osseous Structures: No aggressive appearing osseous lesions. There is diffuse subjective bone deminer alization. There is an acute appearing superior endplate compression fracture of T12 with about 30% v ertebral body height loss. Additional Findings: None IMPRESSION: 1. Diffuse wall thickening and fat stranding involving the descending and sigmoid colon suggestive of colitis. 2. Stable 3.4 cm infrarenal abdominal aortic aneurysm. 3. Small bilateral pleural effusions. 4. Diffuse bone demineralization with an acute appearing superior endplate compression fracture of T1 2. Signer Name: Jacinto Lawson MD Signed: 04/10/2020 11:30 PM Workstation Name: [email or web address]
[2020-04-11] MEDS: AMIODARONE 200 MG TAB PO SCH ×3 (00:17→21:25)
[2020-04-11] MEDS ORDERED: MAGNESIUM HYDROXIDE (MOM) ORAL LIQD UDC PO PRN (01:26)
--- NOTE | 2020-04-11 01:44 | History and Physical Report ---
History of Present Illness Date of examination: 04/11/20 Date of admission: 04/11/20 00:03 Chief complaint: Shortness of breath Abdominal pain History of present illness: 75-year-old male with known history of coronary artery disease, diabetes mellitus and CHF with ejection fraction of 15% on echo done in January 2020, Crohn's disease, anemia and osteoarthritis presenting to the emergency room today with shortness of breath and abdominal pain. Symptoms were said to have started today and patient was brought in by EMS. In route to the hospital EMS indicates that patient was in a nonsustained V. tach. Most of the history was given by the ER physician as patient is in some respiratory distress. He was placed on BiPAP upon arrival in the emergency room. Work-up in the emergency room today, chest x-ray reveals: Patchy bibasilar airspace opacities, may reflect pulmonary edema or pneumonia. Stable small left pleural effusion and/or pleural scarring. CT of the abdomen and pelvis reveals: 1. Diffuse wall thickening and fat stranding involving the descending and sigmoid colon suggestive of colitis. 2. Stable 3.4 cm infrarenal abdominal aortic aneurysm. 3. Small bilateral pleural effusions. 4. Diffuse bone demineralization with an acute appearing superior endplate compression fracture of T12. Patient is being admitted for acute on chronic CHF, colitis and acute kidney injury. In view of possible underlying pneumonia patient started on empiric IV antibiotics . Cardiology consulted by the ER physician regarding the Vtach and patient was started on P.O. amiodarone. Past History Past Medical History: arthritis, CAD (H/O [place]), COPD, diabetes, heart failure, hypertension, hyperlipidemia, stroke (X2), other (Crohn's disease,) Past Surgical History: PTCA Social history: smoking (Current daily smoker), alcohol abuse Family history: no significant family history Medications and Allergies Allergies Allergy/AdvReac Type Severity Reaction Status Date / Time Sulfa (Sulfonamide Allergy Rash Verified 07/30/18 17:44 Antibiotics) Home Medications Medication Instructions Recorded Confirmed Last Taken Type Gabapentin 300 mg PO BID 09/19/16 01/29/20 09/18/16 History 300 mg Metformin HCl [metFORMIN ER 500 mg PO BIDWM 03/28/17 01/29/20 Unknown History Gastric] AtorvaSTATin 10 mg PO QHS #30 tablet 12/21/17 01/29/20 Unknown Rx Ranolazine ER [Ranexa ER] 500 mg PO BID #60 tablet 12/21/17 01/29/20 Unknown Rx Aspirin 325 mg PO QDAY #30 tablet 01/12/18 01/29/20 Unknown Rx Diphenoxylate/Atropine [Lomotil] 1 tab PO Q8H PRN 01/15/18 01/29/20 Unknown History Insulin Lispro [HumaLOG VIAL] See Protocol SQ ACHS 01/15/18 01/29/20 Unknown History Promethazine [Phenergan] 25 mg PO Q4H PRN 01/15/18 01/29/20 Unknown History Albuterol Mdi (or & Nicu Only) 2 puff IH Q4HR PRN #1 inhalation 12/21/18 01/29/20 Unknown Rx [ProAir HFA Inhaler] Furosemide [Lasix TAB] 20 mg PO QDAY #30 tablet 02/03/20 Unknown Rx Metoprolol Xl [Metoprolol 25 mg PO DAILY #60 tablet 02/03/20 Unknown Rx SUCCINATE ER TAB] levETIRAcetam [Keppra TAB] 500 mg PO BID #120 tablet 02/03/20 Unknown Rx levoFLOXacin [Levaquin TAB] 500 mg PO QDAY #5 tablet 02/03/20 Unknown Rx Active Meds: Active Medications Acetaminophen (Tylenol) 650 mg PO Q6H PRN PRN Reason: Pain MILD(1-3)/Fever >100.5/MANCILLA Albuterol/Ipratropium (Duoneb *Not For Prn Use*) 1 ampul IH Q6HRT [facility] Amiodarone HCl (Cordarone) 400 mg PO BID [facility] Last Admin: 04/11/20 00:17 Dose: 400 mg Documented by: Furosemide (Lasix) 40 mg IV BID@0600,1800 [facility] Heparin Sodium (Porcine) (Heparin) 5,000 unit SUB-Q Q8HR [facility] Cefepime HCl (Cefepime/Ns 2 Gm/100 Ml) 2 gm in 100 mls @ 200 mls/hr IV Q8H [facility]; Protocol Last Admin: 04/10/20 22:25 Dose: 200 mls/hr Documented by: Magnesium Hydroxide (Milk Of Magnesia) 30 ml PO Q4H PRN PRN Reason: Constipation Sodium Chloride (Sodium Chloride Flush Syringe 10 Ml) 10 ml IV BID [facility] Sodium Chloride (Sodium Chloride Flush Syringe 10 Ml) 10 ml IV PRN PRN PRN Reason: LINE FLUSH Review of Systems Constitutional: no fever, no chills Ears, nose, mouth and throat: no nasal congestion, no sore throat Cardiovascular: no chest pain, no palpitations Respiratory: cough, shortness of breath Gastrointestinal: no abdominal pain, no nausea, no vomiting Genitourinary Male: no dysuria, no hematuria, no nocturia Musculoskeletal: no neck pain, no low back pain Integumentary: no rash, no pruritis Neurological: no headaches, no confusion Psychiatric: no anxiety, no depression Exam - Constitutional Vitals: Temp Pulse Resp BP Pulse Ox 96.6 F L 105 H 40 H 113/73 100 04/11/20 00:38 04/11/20 00:38 04/11/20 00:00 04/11/20 00:00 04/11/20 00:00 General appearance: Present: mild distress, well-nourished - EENT Eyes: Present: PERRL, EOM intact. Absent: scleral icterus ENT: hearing intact, clear oral mucosa, dentition normal - Neck Neck: Present: supple, normal ROM - Respiratory Respiratory effort: normal Respiratory: bilateral: rales - Cardiovascular Rhythm: regular Heart Sounds: Present: S1 & S2. Absent: gallop, systolic murmur, diastolic murmur, rub - Extremities Extremities: no ischemia, pulses intact, pulses symmetrical, Full ROM Extremity abnormal: edema (1+ Bilateral lower extremity edema) Peripheral Pulses: within normal limits - Abdominal General gastrointestinal: Present: soft, non-tender, non-distended, normal bowel sounds. Absent: mass - Integumentary Integumentary: Present: clear, warm, dry. Absent: rash - Musculoskeletal Musculoskeletal: strength equal bilaterally - Psychiatric Psychiatric: appropriate mood/affect, intact judgment & insight, memory intact, cooperative - Neurologic Neurologic: CNII-XII intact, no focal deficits, moves all extremities HEART Score - HEART Score Troponin: Troponin T 0.081 ng/mL (0.00-0.029) H 04/10/20 20:04 Results - Labs CBC & Chem 7: 04/10/20 20:04 04/10/20 20:51 Labs: Abnormal lab results 04/10/20 04/10/20 04/10/20 Range/Units 20:04 20:04 20:04 Hgb 9.3 L (11.8-15.2) gm/dl Hct 29.9 L (35.5-45.6) % MCV 80 L (84-94) fl MCH 25 L (28-32) pg MCHC 31 L (32-34) % RDW 21.7 H (13.2-15.2) % Lymph % (Auto) 10.9 L (13.4-35.0) % Lymph # (Auto) 0.8 L (1.2-5.4) K/mm3 Seg Neutrophils % 81.5 H (40.0-70.0) % D-Dimer (0-234) ng/mlDDU ABG pH (7.350-7.450) pH Units ABG pO2 (80.0-90.0) mm Hg ABG HCO3 (20.0-26.0) mmol/L ABG O2 Saturation (95.0-99.0) % ABG Base Excess (-2.0-3.0) mmol/L ABG Hemoglobin (14.0-18.0) gm/dl Sodium 133 L (137-145) mmol/L Potassium 5.9 H (3.6-5.0) mmol/L Carbon Dioxide 12 L (22-30) mmol/L BUN 25 H (9-20) mg/dL Creatinine 1.7 H (0.8-1.3) mg/dL Glucose 119 H (75-100) mg/dL Lactic Acid 8.80 H* (0.7-2.0) mmol/L Phosphorus (2.5-4.5) mg/dL Magnesium (1.7-2.3) mg/dL Total Bilirubin 1.40 H (0.1-1.2) mg/dL AST 144 H (5-40) units/L ALT 83 H (7-56) units/L Alkaline Phosphatase 212 H (35-129) units/L Lactate Dehydrogenase (91-180) units/L Troponin T 0.081 H (0.00-0.029) ng/mL C-Reactive Protein (0.00-1.30) mg/dL Albumin 3.5 L (3.9-5) g/dL 04/10/20 04/10/20 04/10/20 Range/Units 20:35 20:51 20:51 Hgb (11.8-15.2) gm/dl Hct (35.5-45.6) % MCV (84-94) fl MCH (28-32) pg MCHC (32-34) % RDW (13.2-15.2) % Lymph % (Auto) (13.4-35.0) % Lymph # (Auto) (1.2-5.4) K/mm3 Seg Neutrophils % (40.0-70.0) % D-Dimer 1881.28 H (0-234) ng/mlDDU ABG pH 7.320 L (7.350-7.450) pH Units ABG pO2 240.7 H (80.0-90.0) mm Hg ABG HCO3 11.8 L (20.0-26.0) mmol/L ABG O2 Saturation 99.4 H (95.0-99.0) % ABG Base Excess -12.8 L (-2.0-3.0) mmol/L ABG Hemoglobin 9.0 L (14.0-18.0) gm/dl Sodium (137-145) mmol/L Potassium (3.6-5.0) mmol/L Carbon Dioxide (22-30) mmol/L BUN (9-20) mg/dL Creatinine (0.8-1.3) mg/dL Glucose 116 H (75-100) mg/dL Lactic Acid (0.7-2.0) mmol/L Phosphorus (2.5-4.5) mg/dL Magnesium (1.7-2.3) mg/dL Total Bilirubin (0.1-1.2) mg/dL AST (5-40) units/L ALT (7-56) units/L Alkaline Phosphatase (35-129) units/L Lactate Dehydrogenase 664 H (91-180) units/L Troponin T (0.00-0.029) ng/mL C-Reactive Protein 5.60 H (0.00-1.30) mg/dL Albumin (3.9-5) g/dL 04/10/20 04/10/20 Range/Units 20:51 22:50 Hgb (11.8-15.2) gm/dl Hct (35.5-45.6) % MCV (84-94) fl MCH (28-32) pg MCHC (32-34) % RDW (13.2-15.2) % Lymph % (Auto) (13.4-35.0) % Lymph # (Auto) (1.2-5.4) K/mm3 Seg Neutrophils % (40.0-70.0) % D-Dimer (0-234) ng/mlDDU ABG pH (7.350-7.450) pH Units ABG pO2 (80.0-90.0) mm Hg ABG HCO3 (20.0-26.0) mmol/L ABG O2 Saturation (95.0-99.0) % ABG Base Excess (-2.0-3.0) mmol/L ABG Hemoglobin (14.0-18.0) gm/dl Sodium 132 L (137-145) mmol/L Potassium 6.0 H (3.6-5.0) mmol/L Carbon Dioxide 17 L (22-30) mmol/L BUN 26 H (9-20) mg/dL Creatinine 1.7 H (0.8-1.3) mg/dL Glucose 115 H (75-100) mg/dL Lactic Acid (0.7-2.0) mmol/L Phosphorus 5.60 H (2.5-4.5) mg/dL Magnesium 2.40 H (1.7-2.3) mg/dL Total Bilirubin 1.40 H (0.1-1.2) mg/dL AST 286 H (5-40) units/L ALT 161 H (7-56) units/L Alkaline Phosphatase 207 H (35-129) units/L Lactate Dehydrogenase (91-180) units/L Troponin T (0.00-0.029) ng/mL C-Reactive Protein (0.00-1.30) mg/dL Albumin 3.6 L (3.9-5) g/dL Assessment and Plan - Patient Problems (1) Acute and chronic respiratory failure Current Visit: Yes Status: Acute Plan to address problem: Possibly secondary to the CHF exac and underlying pneumonia. Patient on Bipap. (2) Acute exacerbation of CHF (congestive heart failure) Current Visit: Yes Status: Acute Plan to address problem: Patient placed on diuretics . Will monitor daily weight, inputs and outputs. (3) KIRT (acute kidney injury) Current Visit: Yes Status: Acute Plan to address problem: Will Monitor BUN/CR . Will appreciate Nephrology input. (4) Colitis Current Visit: Yes Status: Acute Plan to address problem: Will consult GI for evaluation. (5) Nonsustained ventricular tachycardia Current Visit: Yes Status: Acute Plan to address problem: Patient started on amiodarone. Will appreciate cardiology input. (6) Diabetes mellitus type 2 in nonobese Current Visit: No Status: Acute Plan to address problem: Will monitor accucheks. (7) Hyperkalemia Current Visit: Yes Status: Acute Plan to address problem: Will monitor potassium levels. Given calcium gluconate ,insulin and glucose in the ER. (8) DVT prophylaxis Current Visit: No Status: Acute Plan to address problem: Placed on anticoagulation with SQ heparin. (9) Full code status Current Visit: No Status: Acute
[2020-04-11] MEDS ORDERED: DEXTROSE 50% IN WATER (25GM) 50 ML SYRINGE IV PRN (01:53)
[2020-04-11] MEDS: IPRATROPIUM/ALBUTEROL SULFATE 3 ML AMPUL.NEB IH SCH ×4 (03:10→21:58)
[2020-04-11] MEDS: HEPARIN 5,000 UNIT/1 ML VIAL SUB-Q SCH ×2 (06:00→14:57)
[2020-04-11] MEDS: CEFEPIME/NS 2 GM/100 ML 2 GM/100 ML BAG IV SCH (06:00)
[2020-04-11] MEDS: FUROSEMIDE 40 MG/4 ML INJ IV SCH ×2 (06:00→17:45)
[2020-04-11] MEDS: INSULIN LISPRO 100 UNIT/ML VIAL 3 mL SUB-Q SCH ×3 (09:24→17:45)
[2020-04-11] MEDS ORDERED: DEXTROSE 50% IN WATER (25GM) 50 ML SYRINGE IV SCH (09:33)
[2020-04-11] MEDS ORDERED: INSULIN REGULAR, HUMAN 100 UNIT/ML 3ML VIAL IV SCH (09:33)
--- NOTE | 2020-04-11 09:33 | Consultation ---
History of Present Illness - Reason for Consult Consult date: 03/29/20 acute renal failure, chronic renal failure, hyperkalemia - History of Present Illness The patient is a 75 YO male with known history of DM, coronary artery disease, CHF with EF 15%, Crohn's disease, anemia, CKD and osteoarthritis who presented to [facility] ED 04/10 with c/o shortness of breath and abdominal pain. Patient unabl e to provide any history at this time and there was no family member at the bedside. Symptoms were said to have started yesterday and patient was brought in by EMS. En route to the hospital EMS indicates that patient was in a nonsustained V. tach. He was placed on BiPAP upon arrival in the emergency room. CXR revealed patchy bibasilar airspace opacities, may reflect pulmonary edema or pneumonia and stable small left pleural effusion and/or pleural scarring. CT of the abdomen and pelvis revealed Diffuse wall thickening and fat stranding involving the descending and sigmoid colon suggestive of colitis, Stable 3.4 cm infrarenal abdominal aortic aneurysm, Small bilateral pleural effusions. Patient was admitted for acute on chronic CHF, colitis and KIRT. Labs significant for Creat 1.7, BUN 26, Sodium 133, K 6.1 and bicarb 10. Nephrology was consulted for further evaluation and treatment. Past History Past Medical History: arthritis, CAD (H/O [place]), COPD, diabetes, heart failure, hypertension, hyperlipidemia, stroke (X2), other (Crohn's disease,) Past Surgical History: PTCA Social history: smoking (Current daily smoker), alcohol abuse Family history: no significant family history Medications and Allergies Allergies Allergy/AdvReac Type Severity Reaction Status Date / Time Sulfa (Sulfonamide Allergy Rash Verified 07/30/18 17:44 Antibiotics) Home Medications Medication Instructions Recorded Confirmed Last Taken Type Gabapentin 300 mg PO BID 09/19/16 01/29/20 09/18/16 History 300 mg Metformin HCl [metFORMIN ER 500 mg PO BIDWM 03/28/17 01/29/20 Unknown History Gastric] AtorvaSTATin 10 mg PO QHS #30 tablet 12/21/17 01/29/20 Unknown Rx Ranolazine ER [Ranexa ER] 500 mg PO BID #60 tablet 12/21/17 01/29/20 Unknown Rx Aspirin 325 mg PO QDAY #30 tablet 01/12/18 01/29/20 Unknown Rx Diphenoxylate/Atropine [Lomotil] 1 tab PO Q8H PRN 01/15/18 01/29/20 Unknown History Insulin Lispro [HumaLOG VIAL] See Protocol SQ ACHS 01/15/18 01/29/20 Unknown History Promethazine [Phenergan] 25 mg PO Q4H PRN 01/15/18 01/29/20 Unknown History Albuterol Mdi (or & Nicu Only) 2 puff IH Q4HR PRN #1 inhalation 12/21/18 01/29/20 Unknown Rx [ProAir HFA Inhaler] Furosemide [Lasix TAB] 20 mg PO QDAY #30 tablet 02/03/20 Unknown Rx Metoprolol Xl [Metoprolol 25 mg PO DAILY #60 tablet 02/03/20 Unknown Rx SUCCINATE ER TAB] levETIRAcetam [Keppra TAB] 500 mg PO BID #120 tablet 02/03/20 Unknown Rx levoFLOXacin [Levaquin TAB] 500 mg PO QDAY #5 tablet 02/03/20 Unknown Rx Active Meds: Active Medications Acetaminophen (Tylenol) 650 mg PO Q6H PRN PRN Reason: Pain MILD(1-3)/Fever >100.5/MANCILLA Albuterol/Ipratropium (Duoneb *Not For Prn Use*) 1 ampul IH Q6HRT [facility] Last Admin: 04/11/20 03:10 Dose: 1 ampul Documented by: Amiodarone HCl (Cordarone) 400 mg PO BID [facility] Last Admin: 04/11/20 09:24 Dose: 400 mg Documented by: Dextrose (D50w (25gm) Syringe) 0 ml IV Q30MIN PRN; Protocol PRN Reason: Hypoglycemia Furosemide (Lasix) 40 mg IV BID@0600,1800 [facility] Last Admin: 04/11/20 06:00 Dose: 40 mg Documented by: Heparin Sodium (Porcine) (Heparin) 5,000 unit SUB-Q Q8HR [facility] Last Admin: 04/11/20 06:00 Dose: 5,000 unit Documented by: Cefepime HCl (Cefepime/Ns 2 Gm/100 Ml) 2 gm in 100 mls @ 200 mls/hr IV Q12HR [facility]; Protocol Vancomycin HCl (Vancomycin/Ns 1 Gm/250 Ml) 1 gm in 250 mls @ 167.007 mls/hr IV Q24H [facility] Insulin Human Lispro (Humalog) 0 unit SUB-Q ACHS [facility]; Protocol Last Admin: 04/11/20 09:24 Dose: 3 unit Documented by: Magnesium Hydroxide (Milk Of Magnesia) 30 ml PO Q4H PRN PRN Reason: Constipation Pneumococcal Polyvalent Vaccine (Pneumovax 23) 0.5 ml IM .ONCE ONE Stop: 04/11/20 12:01 Sodium Chloride (Sodium Chloride Flush Syringe 10 Ml) 10 ml IV BID [facility] Last Admin: 04/11/20 09:32 Dose: 10 ml Documented by: Sodium Chloride (Sodium Chloride Flush Syringe 10 Ml) 10 ml IV PRN PRN PRN Reason: LINE FLUSH Review of Systems ROS unobtainable: due to mental status Exam - Vital Signs Vital signs: Vital Signs Pulse Resp BP Pulse Ox 116 H 45 H 138/84 98 04/10/20 19:45 04/10/20 19:45 04/10/20 19:45 04/10/20 19:45 Results - Lab Results 04/10/20 20:04 04/11/20 07:37 Most recent lab results ABG pH 7.320 pH Units (7.350-7.450) L 04/10/20 20:35 ABG pCO2 23.3 mm Hg 04/10/20 20:35 ABG pO2 240.7 mm Hg (80.0-90.0) H 04/10/20 20:35 ABG HCO3 11.8 mmol/L (20.0-26.0) L 04/10/20 20:35 ABG O2 Saturation 99.4 % (95.0-99.0) H 04/10/20 20:35 Calcium 8.7 mg/dL (8.4-10.2) 04/10/20 20:51 Phosphorus 5.60 mg/dL (2.5-4.5) H 04/10/20 22:50 Magnesium 2.40 mg/dL (1.7-2.3) H 04/10/20 22:50 Assessment and Plan 1. Acute kidney injury: Vasomotor KIRT superimposed on CKD. CT abdomen negative for hydro. Urine studies ordered. Monitor renal function. Creatinine leveled off. Renal prognosis is guarded. Avoid nephrotoxic agents. Meds dosage based on GFR. 2. FEN: Hyperkalemia, medications ordered, monitor. Anion-gap metabolic acidosis, 2/2 KIRT / CKD, monitor. IV Sod bicarbonate Monitor lytes and volume status. 3. Acute hypoxic respiratory failure: Currently on BIPAP. Possibly secondary to the CHF exac and underlying pneumonia. COVID-19 test negative. 4. Acute exacerbation of CHF: Continue IV diuretics. Monitor daily weight, inputs and outputs. 5. Colitis: Monitor. Seen by GI. 6. Anemia, POA: Monitor. 7. Elevated Transaminases: Monitor. 8. DM type 2. 9. HTN: Monitor BP. Subjective: Patient was seen and examined at the bedside. Examination: General appearance: well-developed, appears stated age, on BIPAP, on mittens HEENT: ATNC, pupils equal Neck: trachea midline Respiratory: coarse breath sounds Heart: regular, S1S2, no murmur Gastrointestinal: soft, normoactive bowel sounds, not tender Integumentary: no rash, warm and dry Neurologic: lethargic, moving extremities Ext: no edema
[2020-04-11] MEDS ORDERED: CALCIUM GLUCONATE 1,000 MG in SODIUM CHLORIDE 0.9% 100 ML IV SCH (09:34)
[2020-04-11 09:52] LABS: Calcium 8.9 mg/dL (8.4-10.2)
[2020-04-11] MEDS ORDERED: LACTATED RINGERS 1,000 ML IV SCH (10:00)
[2020-04-11] MEDS ORDERED: PNEUMOCOCCAL 23 Valent 0.5 ML VIAL IM ONE (12:00)
--- NOTE | 2020-04-11 12:07 | Gastroenterology Consultation ---
History of Present Illness - Reason for Consult Consult date: 04/11/20 colitis Requesting physician: GISELA VALIENTE - History of Present Illness This is a 75 yo male with pmh of CAD, DM, CHF EF 15%, Crohns disease (ileocolonic disease) admitted overnight for sob and abdominal pain. Found to be in respiratory distress with pulmonary edema vs pneumonia. GI consulted for findings of colitis on CT. Patient on Bipap and transitioned to NC 6 Liters this morning. Difficult to obtain history. Denies any abdominal pain or diarrhea. Patient previously followed with Dr. Matos at [facility] with last colonoscopy in 12/2018 showing diffuse small pseudopolyps throughout the colon, patchy erythema in the left colon. Noted to have noncompliance with follow up. Currently not on any medication for Crohns disease. CT in the ED showed diffuse wall thickening and fat stranding involving descending and sigmoid colon. Medication list reviewed. Past History Past Medical History: arthritis, CAD (H/O GA), COPD, diabetes, heart failure, hypertension, hyperlipidemia, stroke (X2), other (Crohn's disease,) Past Surgical History: PTCA Social history: smoking (Current daily smoker), alcohol abuse Family history: no significant family history Medications and Allergies Allergies Allergy/AdvReac Type Severity Reaction Status Date / Time Sulfa (Sulfonamide Allergy Rash Verified 07/30/18 17:44 Antibiotics) Home Medications Medication Instructions Recorded Confirmed Last Taken Type Gabapentin 300 mg PO BID 09/19/16 01/29/20 09/18/16 History 300 mg Metformin HCl [metFORMIN ER 500 mg PO BIDWM 03/28/17 01/29/20 Unknown History Gastric] AtorvaSTATin 10 mg PO QHS #30 tablet 12/21/17 01/29/20 Unknown Rx Ranolazine ER [Ranexa ER] 500 mg PO BID #60 tablet 12/21/17 01/29/20 Unknown Rx Aspirin 325 mg PO QDAY #30 tablet 01/12/18 01/29/20 Unknown Rx Diphenoxylate/Atropine [Lomotil] 1 tab PO Q8H PRN 01/15/18 01/29/20 Unknown History Insulin Lispro [HumaLOG VIAL] See Protocol SQ ACHS 01/15/18 01/29/20 Unknown History Promethazine [Phenergan] 25 mg PO Q4H PRN 01/15/18 01/29/20 Unknown History Albuterol Mdi (or & Nicu Only) 2 puff IH Q4HR PRN #1 inhalation 12/21/18 01/29/20 Unknown Rx [ProAir HFA Inhaler] Furosemide [Lasix TAB] 20 mg PO QDAY #30 tablet 02/03/20 Unknown Rx Metoprolol Xl [Metoprolol 25 mg PO DAILY #60 tablet 02/03/20 Unknown Rx SUCCINATE ER TAB] levETIRAcetam [Keppra TAB] 500 mg PO BID #120 tablet 02/03/20 Unknown Rx levoFLOXacin [Levaquin TAB] 500 mg PO QDAY #5 tablet 02/03/20 Unknown Rx Active Meds: Active Medications Acetaminophen (Tylenol) 650 mg PO Q6H PRN PRN Reason: Pain MILD(1-3)/Fever >100.5/MANCILLA Albuterol/Ipratropium (Duoneb *Not For Prn Use*) 1 ampul IH Q6HRT [facility] Last Admin: 04/11/20 03:10 Dose: 1 ampul Documented by: Amiodarone HCl (Cordarone) 400 mg PO BID [facility] Last Admin: 04/11/20 09:24 Dose: 400 mg Documented by: Dextrose (D50w (25gm) Syringe) 0 ml IV Q30MIN PRN; Protocol PRN Reason: Hypoglycemia Furosemide (Lasix) 40 mg IV BID@0600,1800 [facility] Last Admin: 04/11/20 06:00 Dose: 40 mg Documented by: Heparin Sodium (Porcine) (Heparin) 5,000 unit SUB-Q Q8HR [facility] Last Admin: 04/11/20 06:00 Dose: 5,000 unit Documented by: Cefepime HCl (Cefepime/Ns 2 Gm/100 Ml) 2 gm in 100 mls @ 200 mls/hr IV Q12HR [facility]; Protocol Vancomycin HCl (Vancomycin/Ns 1 Gm/250 Ml) 1 gm in 250 mls @ 167.007 mls/hr IV Q24H [facility] Insulin Human Lispro (Humalog) 0 unit SUB-Q ACHS [facility]; Protocol Last Admin: 04/11/20 09:24 Dose: 3 unit Documented by: Magnesium Hydroxide (Milk Of Magnesia) 30 ml PO Q4H PRN PRN Reason: Constipation Pneumococcal Polyvalent Vaccine (Pneumovax 23) 0.5 ml IM .ONCE ONE Stop: 04/11/20 12:01 Sodium Chloride (Sodium Chloride Flush Syringe 10 Ml) 10 ml IV BID [facility]AVIN Last Admin: 04/11/20 09:32 Dose: 10 ml Documented by: Sodium Chloride (Sodium Chloride Flush Syringe 10 Ml) 10 ml IV PRN PRN PRN Reason: LINE FLUSH Review of Systems - Review of Systems All systems: negative Constitutional: no weight loss, no weight gain, no fever, no chills Cardiovascular: chest pain, palpitations Respiratory: cough, shortness of breath Gastrointestinal: no abdominal pain, no nausea, no vomiting, no diarrhea, no hematochezia Neurological: weakness Exam - Constitutional Vital Signs: Temp Pulse Resp BP Pulse Ox 97.8 F 73 15 118/70 100 04/11/20 03:45 04/11/20 10:00 04/11/20 08:00 04/11/20 07:00 04/11/20 11:13 General appearance: mild distress - EENT Eyes: EOM intact ENT: hearing intact - Respiratory Respiratory effort: labored - Cardiovascular Rhythm: regular Heart Sounds: Present: S1 & S2 - Gastrointestinal General gastrointestinal: Present: soft, non-tender, non-distended - Neurologic Neurological: other (alert) - Labs CBC & Chem 7: 04/10/20 20:04 04/11/20 07:37 Lab Results: Laboratory Results - last 24 hr 04/10/20 04/10/20 04/10/20 20:04 20:04 20:04 WBC 7.5 RBC 3.72 Hgb 9.3 L Hct 29.9 L MCV 80 L MCH 25 L MCHC 31 L RDW 21.7 H Plt Count 261 Lymph % (Auto) 10.9 L [place] % (Auto) 6.0 Eos % (Auto) 0.6 Baso % (Auto) 1.0 Lymph # (Auto) 0.8 L [place] # (Auto) 0.4 Eos # (Auto) 0.0 Baso # (Auto) 0.1 Seg Neutrophils % 81.5 H Seg Neutrophils # 6.1 D-Dimer ABG pH ABG pCO2 ABG pO2 ABG HCO3 ABG O2 Saturation ABG O2 Content ABG Base Excess ABG Hemoglobin ABG Carboxyhemoglobin ABG Methemoglobin Oxyhemoglobin FiO2 Sodium 133 L Potassium 5.9 H Chloride 98.7 Carbon Dioxide 12 L Anion Gap 28 BUN 25 H Creatinine 1.7 H Estimated GFR 40 BUN/Creatinine Ratio 15 Glucose 119 H POC Glucose Lactic Acid 8.80 H* Calcium 8.6 Phosphorus Magnesium Ferritin Total Bilirubin 1.40 H AST 144 H ALT 83 H Alkaline Phosphatase 212 H Lactate Dehydrogenase Troponin T 0.081 H C-Reactive Protein Total Protein 7.0 Albumin 3.5 L Albumin/Globulin Ratio 1.0 Triglycerides 113 Cholesterol 178 LDL Cholesterol Direct 123 HDL Cholesterol 41 Cholesterol/HDL Ratio 4.34 Procalcitonin 04/10/20 04/10/20 04/10/20 20:35 20:51 20:51 WBC RBC Hgb Hct MCV MCH MCHC RDW Plt Count Lymph % (Auto) [place] % (Auto) Eos % (Auto) Baso % (Auto) Lymph # (Auto) [place] # (Auto) Eos # (Auto) Baso # (Auto) Seg Neutrophils % Seg Neutrophils # D-Dimer 1881.28 H ABG pH 7.320 L ABG pCO2 23.3 ABG pO2 240.7 H ABG HCO3 11.8 L ABG O2 Saturation 99.4 H ABG O2 Content 12.9 ABG Base Excess -12.8 L ABG Hemoglobin 9.0 L ABG Carboxyhemoglobin 1.8 ABG Methemoglobin 0.4 Oxyhemoglobin 97.2 FiO2 60 Sodium Potassium Chloride Carbon Dioxide Anion Gap BUN Creatinine Estimated GFR BUN/Creatinine Ratio Glucose 116 H POC Glucose Lactic Acid Calcium Phosphorus Magnesium Ferritin Total Bilirubin AST ALT Alkaline Phosphatase Lactate Dehydrogenase 664 H Troponin T C-Reactive Protein 5.60 H Total Protein Albumin Albumin/Globulin Ratio Triglycerides Cholesterol LDL Cholesterol Direct HDL Cholesterol Cholesterol/HDL Ratio Procalcitonin 04/10/20 04/10/20 04/10/20 20:51 20:51 20:51 WBC RBC Hgb Hct MCV MCH MCHC RDW Plt Count Lymph % (Auto) [place] % (Auto) Eos % (Auto) Baso % (Auto) Lymph # (Auto) [place] # (Auto) Eos # (Auto) Baso # (Auto) Seg Neutrophils % Seg Neutrophils # D-Dimer ABG pH ABG pCO2 ABG pO2 ABG HCO3 ABG O2 Saturation ABG O2 Content ABG Base Excess ABG Hemoglobin ABG Carboxyhemoglobin ABG Methemoglobin Oxyhemoglobin FiO2 Sodium 132 L Potassium 6.0 H Chloride 98.2 Carbon Dioxide 17 L Anion Gap 23 BUN 26 H Creatinine 1.7 H Estimated GFR 40 BUN/Creatinine Ratio 15 Glucose 115 H POC Glucose Lactic Acid Calcium 8.7 Phosphorus Magnesium Ferritin 142.6 Total Bilirubin 1.40 H AST 286 H ALT 161 H Alkaline Phosphatase 207 H Lactate Dehydrogenase Troponin T C-Reactive Protein Total Protein 6.4 Albumin 3.6 L Albumin/Globulin Ratio 1.3 Triglycerides Cholesterol LDL Cholesterol Direct HDL Cholesterol Cholesterol/HDL Ratio Procalcitonin 0.14 04/10/20 04/11/20 04/11/20 22:50 00:36 03:10 WBC RBC Hgb Hct MCV MCH MCHC RDW Plt Count Lymph % (Auto) [place] % (Auto) Eos % (Auto) Baso % (Auto) Lymph # (Auto) [place] # (Auto) Eos # (Auto) Baso # (Auto) Seg Neutrophils % Seg Neutrophils # D-Dimer ABG pH ABG pCO2 ABG pO2 ABG HCO3 ABG O2 Saturation ABG O2 Content ABG Base Excess ABG Hemoglobin ABG Carboxyhemoglobin ABG Methemoglobin Oxyhemoglobin FiO2 Sodium Potassium Chloride Carbon Dioxide Anion Gap BUN Creatinine Estimated GFR BUN/Creatinine Ratio Glucose POC Glucose 237 H 181 H Lactic Acid Calcium Phosphorus 5.60 H Magnesium 2.40 H Ferritin Total Bilirubin AST ALT Alkaline Phosphatase Lactate Dehydrogenase Troponin T C-Reactive Protein Total Protein Albumin Albumin/Globulin Ratio Triglycerides Cholesterol LDL Cholesterol Direct HDL Cholesterol Cholesterol/HDL Ratio Procalcitonin 04/11/20 04/11/20 04/11/20 05:32 07:37 07:37 WBC RBC Hgb Hct MCV MCH MCHC RDW Plt Count Lymph % (Auto) [place] % (Auto) Eos % (Auto) Baso % (Auto) Lymph # (Auto) [place] # (Auto) Eos # (Auto) Baso # (Auto) Seg Neutrophils % Seg Neutrophils # D-Dimer ABG pH ABG pCO2 ABG pO2 ABG HCO3 ABG O2 Saturation ABG O2 Content ABG Base Excess ABG Hemoglobin ABG Carboxyhemoglobin ABG Methemoglobin Oxyhemoglobin FiO2 Sodium 133 L Potassium 6.2 H* 6.1 H* Chloride 100.6 Carbon Dioxide 10 L D Anion Gap 29 BUN 26 H Creatinine 1.7 H Estimated GFR 40 BUN/Creatinine Ratio 15 Glucose 100 POC Glucose 182 H Lactic Acid Calcium 8.9 Phosphorus Magnesium Ferritin Total Bilirubin AST ALT Alkaline Phosphatase Lactate Dehydrogenase Troponin T C-Reactive Protein Total Protein Albumin Albumin/Globulin Ratio Triglycerides Cholesterol LDL Cholesterol Direct HDL Cholesterol Cholesterol/HDL Ratio Procalcitonin Assessment and Plan - Patient Problems (1) Crohn's disease Current Visit: Yes Status: Acute Plan to address problem: - ileocolonic Crohns disease - last colonoscopy in 12/2018 showing diffuse small pseudopolyps throughout the colon, patchy erythema in the left colon. Noted to have noncompliance with follow up. Currently not on any medication for Crohns disease. - CT in the ED showed diffuse wall thickening and fat stranding involving descending and sigmoid colon. - no clinical symptoms to correlate including abdominal pain, diarrhea. Rec - currently on empiric antibiotics. - if having diarrhea, obtain stool studies to rule out C diff. - supportive care. - management for respiratory distress/CHF exacerbation/pneumonia per primary team.
[2020-04-11] MEDS ORDERED: SODIUM POLYSTYRENE 15 GM/60 ML ORAL LIQD PO SCH (13:00)
--- NOTE | 2020-04-11 13:01 | Progress Note ---
Assessment and Plan Assessment and plan: 75-year-old male with known history of coronary artery disease, diabetes mellitus and CHF with ejection fraction of 15% on echo done in January 2020, Crohn's disease, anemia and osteoarthritis presenting to the emergency room today with shortness of breath and abdominal pain. Symptoms were said to have started today and patient was brought in by EMS. En route to the hospital EMS indicates that patient was in a nonsustained V. tach. Most of the history was given by the ER physician as patient is in some respiratory distress. He was placed on BiPAP upon arrival in the emergency room. Work-up in the emergency room- chest x-ray reveals: Patchy bibasilar airspace opacities, may reflect pulmonary edema or pneumonia. Stable small left pleural effusion and/or pleural scarring. CT abdomen showed d iffuse colitis, bilateral pleural effusions and possible acute appearing compression fracture of T12. Patient was then admitted to the hospital for acute hypoxic respiratory failure, acute on chronic systolic heart failure, colitis and KIRT. Patient started on IV antibiotics and cardiology consulted for ventricular tachycardia. 04/11. Patient seen and examined at bedside this morning. Patient is on BiPAP. Patient is eager to go home. Otherwise denies any chest pain or palpitations. Patient CT showed possible compression fracture of T12, it is unknown if this is new. We will get MRI without contrast of the thoracic and lumbar to further evaluate. If patient actually has an acute compression fracture, he will need to have a neurosurgery evaluation so will need to be transferred to another facility for this. Otherwise, patient continue to monitor patient's respiratory status while in the IMCU. Patient reportedly failed a swallow evaluation and will need to have an NG tube placement. Tried to call son on number provided in the chart and left a message. Awaiting callback. Labs reviewed-patient has elevated inflammatory [id number], LDH. COVID-19 test has been ordered. Started patient on steroids. Ordered stat BMP, ABG, D-dimer, proBNP, ferritin, LDH. Problems 1) Acute and chronic respiratory failure Current Visit: Yes Status: Acute Plan to address problem: Possibly secondary to the CHF exac and underlying pneumonia. Continue oxygen supplementation COVID-19 test pending Respiratory therapy assess and treat (2) Acute exacerbation of CHF (congestive heart failure) Current Visit: Yes Status: Acute Plan to address problem: Continue IV diuretics Will monitor daily weight, inputs and outputs. Monitor renal function closely Check proBNP Cardiology on board (3) KIRT (acute kidney injury) Current Visit: Yes Status: Acute Plan to address problem: Nephrology following (4) Colitis Current Visit: Yes Status: Acute Plan to address problem: GI evaluation (5) Nonsustained ventricular tachycardia Current Visit: Yes Status: Acute Plan to address problem: Continue amiodarone Cardiology consulted. Needs an echocardiogram (6) Diabetes mellitus type 2 in nonobese Current Visit: No Status: Acute Plan to address problem: Will monitor accucheks. (7) Hyperkalemia and metabolic acidosis Current Visit: Yes Status: Acute Plan to address problem: Kayexalate, insulin, D50 ordered Repeat BMP stat ordered. ABG stat Bicarbonate ordered. Nephrology following (8) T12 compression fracture Current Visit: No Status: Acute Plan to address problem: CT abdomen showed possible T12 compression fracture MRI thoracic without contrast ordered to further evaluate Awaiting MRI. If positive for fracture, patient will need to be transferred to their facility for neurosurgery evaluation. (8) DVT prophylaxis Current Visit: No Status: Acute Plan to address problem: Placed on anticoagulation with SQ heparin. (9) Full code status Current Visit: No Status: Acute Patient is critically ill and will remain in the IMCU Called patient's son and left a voice message. History Interval history: Patient seen and examined at bedside. He is on BIPAP with good sats. Lab tests reviewed Hospitalist Physical - Physical exam Narrative exam: VITAL SIGNS: Reviewed. GENERAL: Awake and alert and responds to questions HEAD: No signs of head trauma. EYES: Pupils are equal. Extraocular motions intact. EARS: Hearing grossly intact. MOUTH: Oropharynx is normal. NECK: No adenopathy, no JVD. CHEST: Chest with diminished breath sounds bilaterally. No wheezes, rales, or rhonchi. CARDIAC: Regular rate and rhythm. S1 and S2, without murmurs, gallops, or rubs. VASCULAR: No Edema. Peripheral pulses normal and equal in all extremities. ABDOMEN: Soft, non tender and non distended. No rebound or guarding, and no masses palpated. Bowel Sounds normal. MUSCULOSKELETAL: Good range of motion of all major joints. Extremities without clubbing, cyanosis or edema. NEUROLOGIC EXAM: Alert. No focal neurologic deficits PSYCHIATRIC: Stable mood SKIN: No obvious lesions - Constitutional Vitals: Temp Pulse Resp BP Pulse Ox 97.8 F 73 15 118/70 100 04/11/20 03:45 04/11/20 10:00 04/11/20 08:00 04/11/20 07:00 04/11/20 11:13 HEART Score - HEART Score Troponin: Troponin T 0.081 ng/mL (0.00-0.029) H 04/10/20 20:04 Results - Labs CBC & Chem 7: 04/10/20 20:04 04/11/20 07:37 Labs: Laboratory Last Values WBC 7.5 K/mm3 (4.5-11.0) 04/10/20 20:04 RBC 3.72 M/mm3 (3.65-5.03) 04/10/20 20:04 Hgb 9.3 gm/dl (11.8-15.2) L 04/10/20 20:04 Hct 29.9 % (35.5-45.6) L 04/10/20 20:04 MCV 80 fl (84-94) L 04/10/20 20:04 MCH 25 pg (28-32) L 04/10/20 20:04 MCHC 31 % (32-34) L 04/10/20 20:04 RDW 21.7 % (13.2-15.2) H 04/10/20 20:04 Plt Count 261 K/mm3 (140-440) 04/10/20 20:04 Lymph % (Auto) 10.9 % (13.4-35.0) L 04/10/20 20:04 [place] % (Auto) 6.0 % (0.0-7.3) 04/10/20 20:04 Eos % (Auto) 0.6 % (0.0-4.3) 04/10/20 20:04 Baso % (Auto) 1.0 % (0.0-1.8) 04/10/20 20:04 Lymph # (Auto) 0.8 K/mm3 (1.2-5.4) L 04/10/20 20:04 [place] # (Auto) 0.4 K/mm3 (0.0-0.8) 04/10/20 20:04 Eos # (Auto) 0.0 K/mm3 (0.0-0.4) 04/10/20 20:04 Baso # (Auto) 0.1 K/mm3 (0.0-0.1) 04/10/20 20:04 Seg Neutrophils % 81.5 % (40.0-70.0) H 04/10/20 20:04 Seg Neutrophils # 6.1 K/mm3 (1.8-7.7) 04/10/20 20:04 D-Dimer 1881.28 ng/mlDDU (0-234) H 04/10/20 20:51 ABG pH 7.320 pH Units (7.350-7.450) L 04/10/20 20:35 ABG pCO2 23.3 mm Hg 04/10/20 20:35 ABG pO2 240.7 mm Hg (80.0-90.0) H 04/10/20 20:35 ABG HCO3 11.8 mmol/L (20.0-26.0) L 04/10/20 20:35 ABG O2 Saturation 99.4 % (95.0-99.0) H 04/10/20 20:35 ABG O2 Content 12.9 (0.0-44) 04/10/20 20:35 ABG Base Excess -12.8 mmol/L (-2.0-3.0) L 04/10/20 20:35 ABG Hemoglobin 9.0 gm/dl (14.0-18.0) L 04/10/20 20:35 ABG Carboxyhemoglobin 1.8 % (0.0-5.0) 04/10/20 20:35 ABG Methemoglobin 0.4 % (0.0-1.5) 04/10/20 20:35 Oxyhemoglobin 97.2 % (95.0-99.0) 04/10/20 20:35 FiO2 60 % 04/10/20 20:35 Sodium 133 mmol/L (137-145) L 04/11/20 07:37 Potassium 6.1 mmol/L (3.6-5.0) H* 04/11/20 07:37 Potassium 6.2 mmol/L (3.6-5.0) H* 04/11/20 07:37 Chloride 100.6 mmol/L (98-107) 04/11/20 07:37 Carbon Dioxide 10 mmol/L (22-30) L D 04/11/20 07:37 Anion Gap 29 mmol/L 04/11/20 07:37 BUN 26 mg/dL (9-20) H 04/11/20 07:37 Creatinine 1.7 mg/dL (0.8-1.3) H 04/11/20 07:37 Estimated GFR 40 ml/min 04/11/20 07:37 BUN/Creatinine Ratio 15 % 04/11/20 07:37 Glucose 100 mg/dL (75-100) 04/11/20 07:37 POC Glucose 182 mg/dL (70-105) H 04/11/20 05:32 Lactic Acid 8.80 mmol/L (0.7-2.0) H* 04/10/20 20:04 Calcium 8.9 mg/dL (8.4-10.2) 04/11/20 07:37 Phosphorus 5.60 mg/dL (2.5-4.5) H 04/10/20 22:50 Magnesium 2.40 mg/dL (1.7-2.3) H 04/10/20 22:50 Ferritin 142.6 ng/mL (30.0-300.0) 04/10/20 20:51 Total Bilirubin 1.40 mg/dL (0.1-1.2) H 04/10/20 20:51 AST 286 units/L (5-40) H 04/10/20 20:51 ALT 161 units/L (7-56) H 04/10/20 20:51 Alkaline Phosphatase 207 units/L (35-129) H 04/10/20 20:51 Lactate Dehydrogenase 664 units/L (91-180) H 04/10/20 20:51 Troponin T 0.081 ng/mL (0.00-0.029) H 04/10/20 20:04 C-Reactive Protein 5.60 mg/dL (0.00-1.30) H 04/10/20 20:51 Total Protein 6.4 g/dL (6.3-8.2) 04/10/20 20:51 Albumin 3.6 g/dL (3.9-5) L 04/10/20 20:51 Albumin/Globulin Ratio 1.3 % 04/10/20 20:51 Triglycerides 113 mg/dL (2-149) 04/10/20 20:04 Cholesterol 178 mg/dL (50-199) 04/10/20 20:04 LDL Cholesterol Direct 123 mg/dL (50-130) 04/10/20 20:04 HDL Cholesterol 41 mg/dL (40-59) 04/10/20 20:04 Cholesterol/HDL Ratio 4.34 % 04/10/20 20:04 Procalcitonin 0.14 ng/mL (<0.15) 04/10/20 20:51 Microbiology: Microbiology 04/10/20 20:11 Peripheral/Venous Blood Culture - Preliminary Culture in Progress 04/10/20 20:04 Peripheral/Venous Blood Culture - Preliminary Culture in Progress Gay/IV: Voiding Method Condom Catheter IV Catheter Type [Right INT / Saline Lock Forearm] IV Catheter Type [Right Wrist] INT / Saline Lock Active Medications - Current Medications Current Medications: Generic Name Dose Route Start Last Admin Trade Name Freq PRN Reason Stop Dose Admin Acetaminophen 650 mg 04/11/20 01:26 Tylenol PO Q6H PRN Pain MILD(1-3)/Fever >100.5/MANCILLA Albuterol/Ipratropium 1 ampul 04/11/20 02:00 04/11/20 12:17 Duoneb *Not For Prn Use* IH Not Given Q6HRT [facility] Amiodarone HCl 400 mg 04/10/20 23:45 04/11/20 09:24 Cordarone PO 400 mg BID PRAVIN Administration Dextrose 0 ml 04/11/20 01:53 D50w (25gm) Syringe IV Q30MIN PRN Hypoglycemia Protocol Furosemide 40 mg 04/11/20 06:00 04/11/20 06:00 Lasix IV 40 mg BID@0600,1800 PRAVIN Administration Heparin Sodium (Porcine) 5,000 unit 04/11/20 06:00 04/11/20 06:00 Heparin SUB-Q 5,000 unit Q8HR PR[facility]IN Administration Cefepime HCl 2 gm in 100 mls @ 200 mls/hr 04/11/20 22:00 Cefepime/Ns 2 Gm/100 Ml IV Q12HR PR[facility] Protocol Vancomycin HCl 1 gm in 250 mls @ 167.007 mls/hr 04/11/20 22:00 Vancomycin/Ns 1 Gm/250 Ml IV Q24H [facility] Insulin Human Lispro 0 unit 04/11/20 07:30 04/11/20 12:25 Humalog SUB-Q 2 unit ACHS PR[facility]IN Administration Protocol Magnesium Hydroxide 30 ml 04/11/20 01:26 Milk Of Magnesia PO Q4H PRN Constipation Sodium Chloride 10 ml 04/11/20 10:00 04/11/20 09:32 Sodium Chloride Flush Syringe 10 Ml IV 10 ml BID PRAVIN Administration Sodium Chloride 10 ml 04/11/20 01:26 Sodium Chloride Flush Syringe 10 Ml IV PRN PRN LINE FLUSH Sodium Polystyrene Sulfonate 30 gm 04/11/20 13:00 Kionex PO 04/11/20 18:01 Q6HR PRAVIN
[2020-04-11] MEDS ORDERED: DEXTROSE 50% IN WATER (25GM) 50 ML SYRINGE IV ONE (13:25)
[2020-04-11] MEDS ORDERED: INSULIN REGULAR, HUMAN 100 UNIT/ML 3ML VIAL IV ONE (13:26)
[2020-04-11] MEDS ORDERED: SODIUM BICARB 8.4% 50 MEQ/50 ML SYRINGE IV SCH (13:30)
--- NOTE | 2020-04-11 13:53 | Consultation ---
History of Present Illness - Reason for Consult Consult date: 04/11/20 Rule out COVID Requesting physician: GISELA VALIENTE - History of Present Illness The patient is a 75-year-old male with CAD, diabetes mellitus, CHF with cardiomyopathy, Crohn's disease, anemia was admitted to the hospital with shortness of breath and abdominal pain. Additional evaluation in the ER showed patient to be in nonsustained V. tach. He was also noted to be hypoxic. Due to chest x-ray findings of possible pneumonia, he has been made a Covid PUI. Patient is otherwise afebrile. Labs showed no leukocytosis. D-dimer 1881, procalcitonin 0.14, AST, ALT elevated, lactate elevated at 8.8 Chest x-ray showed patchy bilateral airspace opacities. CT abdomen and pelvis showed diffuse wall thickening involving the descending and sigmoid colon suggestive of colitis. Stable infrarenal abdominal aortic aneurysm. Review of Systems: reviewed in the chart, unable to obtain directly due to PPE preservation and minimize risk of transmission Past History Past Medical History: arthritis, CAD (H/O [place]), COPD, diabetes, heart failure, hypertension, hyperlipidemia, stroke (X2), other (Crohn's disease,) Past Surgical History: PTCA Social history: smoking (Current daily smoker), alcohol abuse Family history: no significant family history Medications and Allergies Allergies Allergy/AdvReac Type Severity Reaction Status Date / Time Sulfa (Sulfonamide Allergy Rash Verified 07/30/18 17:44 Antibiotics) Home Medications Medication Instructions Recorded Confirmed Last Taken Type Gabapentin 300 mg PO BID 09/19/16 01/29/20 09/18/16 History 300 mg Metformin HCl [metFORMIN ER 500 mg PO BIDWM 03/28/17 01/29/20 Unknown History Gastric] AtorvaSTATin 10 mg PO QHS #30 tablet 12/21/17 01/29/20 Unknown Rx Ranolazine ER [Ranexa ER] 500 mg PO BID #60 tablet 12/21/17 01/29/20 Unknown Rx Aspirin 325 mg PO QDAY #30 tablet 01/12/18 01/29/20 Unknown Rx Diphenoxylate/Atropine [Lomotil] 1 tab PO Q8H PRN 01/15/18 01/29/20 Unknown History Insulin Lispro [HumaLOG VIAL] See Protocol SQ ACHS 01/15/18 01/29/20 Unknown History Promethazine [Phenergan] 25 mg PO Q4H PRN 01/15/18 01/29/20 Unknown History Albuterol Mdi (or & Nicu Only) 2 puff IH Q4HR PRN #1 inhalation 12/21/18 01/29/20 Unknown Rx [ProAir HFA Inhaler] Furosemide [Lasix TAB] 20 mg PO QDAY #30 tablet 02/03/20 Unknown Rx Metoprolol Xl [Metoprolol 25 mg PO DAILY #60 tablet 02/03/20 Unknown Rx SUCCINATE ER TAB] levETIRAcetam [Keppra TAB] 500 mg PO BID #120 tablet 02/03/20 Unknown Rx levoFLOXacin [Levaquin TAB] 500 mg PO QDAY #5 tablet 02/03/20 Unknown Rx Active Meds: Active Medications Acetaminophen (Tylenol) 650 mg PO Q6H PRN PRN Reason: Pain MILD(1-3)/Fever >100.5/MANCILLA Albuterol/Ipratropium (Duoneb *Not For Prn Use*) 1 ampul IH Q6HRT [facility] Last Admin: 04/11/20 12:17 Dose: Not Given Documented by: Amiodarone HCl (Cordarone) 400 mg PO BID [facility] Last Admin: 04/11/20 09:24 Dose: 400 mg Documented by: Dextrose (D50w (25gm) Syringe) 0 ml IV Q30MIN PRN; Protocol PRN Reason: Hypoglycemia Furosemide (Lasix) 40 mg IV BID@0600,1800 [facility] Last Admin: 04/11/20 06:00 Dose: 40 mg Documented by: Heparin Sodium (Porcine) (Heparin) 5,000 unit SUB-Q Q8HR [facility] Last Admin: 04/11/20 06:00 Dose: 5,000 unit Documented by: Cefepime HCl (Cefepime/Ns 2 Gm/100 Ml) 2 gm in 100 mls @ 200 mls/hr IV Q12HR [facility]; Protocol Vancomycin HCl (Vancomycin/Ns 1 Gm/250 Ml) 1 gm in 250 mls @ 167.007 mls/hr IV Q24H [facility] Insulin Human Lispro (Humalog) 0 unit SUB-Q ACHS [facility]; Protocol Last Admin: 04/11/20 12:25 Dose: 2 unit Documented by: Magnesium Hydroxide (Milk Of Magnesia) 30 ml PO Q4H PRN PRN Reason: Constipation Methylprednisolone Sodium Succinate (Solu-Medrol) 40 mg IV Q8HR [facility] Sodium Bicarbonate (Sodium Bicarbonate 50meq Syringe) 50 meq IV ONCE PRAVIN Stop: 04/11/20 15:30 Sodium Chloride (Sodium Chloride Flush Syringe 10 Ml) 10 ml IV BID [facility] Last Admin: 04/11/20 09:32 Dose: 10 ml Documented by: Sodium Chloride (Sodium Chloride Flush Syringe 10 Ml) 10 ml IV PRN PRN PRN Reason: LINE FLUSH Sodium Polystyrene Sulfonate (Kionex) 30 gm [place] Q6HR [facility] Physical Examination - Physical Exam Narrative exam: Physical Exam (reviewed in chart due to PPE conservation and minimize risk of transmission) Constitutional: limited due to PPE conservation strategy Head, Ears, Nose: limited due to PPE conservation strategy Eyes: limited due to PPE conservation strategy Neck: limited due to PPE conservation strategy Oral: limited due to PPE conservation strategy Cardiovascular: limited due to PPE conservation strategy Respiratory: limited due to PPE conservation strategy GI: limited due to PPE conservation strategy Musculoskeletal: limited due to PPE conservation strategy Skin: limited due to PPE conservation strategy Hem/Lymphatic: limited due to PPE conservation strategy Psych: limited due to PPE conservation strategy Neurological: limited due to PPE conservation strategy - Constitutional Vitals: Vital Signs Temp Pulse Resp BP Pulse Ox 97.8 F 73 15 118/70 100 04/11/20 03:45 04/11/20 10:00 04/11/20 08:00 04/11/20 07:00 04/11/20 11:13 Temperature -Last 24 Hours Temperature 97.8 F Temperature 96.6 F Results - Labs CBC & Chem 7: 04/10/20 20:04 04/11/20 07:37 Labs: Abnormal lab results 04/10/20 04/10/20 04/10/20 Range/Units 20:04 20:04 20:04 Hgb 9.3 L (11.8-15.2) gm/dl Hct 29.9 L (35.5-45.6) % MCV 80 L (84-94) fl MCH 25 L (28-32) pg MCHC 31 L (32-34) % RDW 21.7 H (13.2-15.2) % Lymph % (Auto) 10.9 L (13.4-35.0) % Lymph # (Auto) 0.8 L (1.2-5.4) K/mm3 Seg Neutrophils % 81.5 H (40.0-70.0) % D-Dimer (0-234) ng/mlDDU ABG pH (7.350-7.450) pH Units ABG pO2 (80.0-90.0) mm Hg ABG HCO3 (20.0-26.0) mmol/L ABG O2 Saturation (95.0-99.0) % ABG Base Excess (-2.0-3.0) mmol/L ABG Hemoglobin (14.0-18.0) gm/dl Sodium 133 L (137-145) mmol/L Potassium 5.9 H (3.6-5.0) mmol/L Carbon Dioxide 12 L (22-30) mmol/L BUN 25 H (9-20) mg/dL Creatinine 1.7 H (0.8-1.3) mg/dL Glucose 119 H (75-100) mg/dL POC Glucose (70-105) mg/dL Lactic Acid 8.80 H* (0.7-2.0) mmol/L Phosphorus (2.5-4.5) mg/dL Magnesium (1.7-2.3) mg/dL Total Bilirubin 1.40 H (0.1-1.2) mg/dL AST 144 H (5-40) units/L ALT 83 H (7-56) units/L Alkaline Phosphatase 212 H (35-129) units/L Lactate Dehydrogenase (91-180) units/L Troponin T 0.081 H (0.00-0.029) ng/mL C-Reactive Protein (0.00-1.30) mg/dL Albumin 3.5 L (3.9-5) g/dL 04/10/20 04/10/20 04/10/20 Range/Units 20:35 20:51 20:51 Hgb (11.8-15.2) gm/dl Hct (35.5-45.6) % MCV (84-94) fl MCH (28-32) pg MCHC (32-34) % RDW (13.2-15.2) % Lymph % (Auto) (13.4-35.0) % Lymph # (Auto) (1.2-5.4) K/mm3 Seg Neutrophils % (40.0-70.0) % D-Dimer 1881.28 H (0-234) ng/mlDDU ABG pH 7.320 L (7.350-7.450) pH Units ABG pO2 240.7 H (80.0-90.0) mm Hg ABG HCO3 11.8 L (20.0-26.0) mmol/L ABG O2 Saturation 99.4 H (95.0-99.0) % ABG Base Excess -12.8 L (-2.0-3.0) mmol/L ABG Hemoglobin 9.0 L (14.0-18.0) gm/dl Sodium (137-145) mmol/L Potassium (3.6-5.0) mmol/L Carbon Dioxide (22-30) mmol/L BUN (9-20) mg/dL Creatinine (0.8-1.3) mg/dL Glucose 116 H (75-100) mg/dL POC Glucose (70-105) mg/dL Lactic Acid (0.7-2.0) mmol/L Phosphorus (2.5-4.5) mg/dL Magnesium (1.7-2.3) mg/dL Total Bilirubin (0.1-1.2) mg/dL AST (5-40) units/L ALT (7-56) units/L Alkaline Phosphatase (35-129) units/L Lactate Dehydrogenase 664 H (91-180) units/L Troponin T (0.00-0.029) ng/mL C-Reactive Protein 5.60 H (0.00-1.30) mg/dL Albumin (3.9-5) g/dL 04/10/20 04/10/20 04/11/20 Range/Units 20:51 22:50 00:36 Hgb (11.8-15.2) gm/dl Hct (35.5-45.6) % MCV (84-94) fl MCH (28-32) pg MCHC (32-34) % RDW (13.2-15.2) % Lymph % (Auto) (13.4-35.0) % Lymph # (Auto) (1.2-5.4) K/mm3 Seg Neutrophils % (40.0-70.0) % D-Dimer (0-234) ng/mlDDU ABG pH (7.350-7.450) pH Units ABG pO2 (80.0-90.0) mm Hg ABG HCO3 (20.0-26.0) mmol/L ABG O2 Saturation (95.0-99.0) % ABG Base Excess (-2.0-3.0) mmol/L ABG Hemoglobin (14.0-18.0) gm/dl Sodium 132 L (137-145) mmol/L Potassium 6.0 H (3.6-5.0) mmol/L Carbon Dioxide 17 L (22-30) mmol/L BUN 26 H (9-20) mg/dL Creatinine 1.7 H (0.8-1.3) mg/dL Glucose 115 H (75-100) mg/dL POC Glucose 237 H (70-105) mg/dL Lactic Acid (0.7-2.0) mmol/L Phosphorus 5.60 H (2.5-4.5) mg/dL Magnesium 2.40 H (1.7-2.3) mg/dL Total Bilirubin 1.40 H (0.1-1.2) mg/dL AST 286 H (5-40) units/L ALT 161 H (7-56) units/L Alkaline Phosphatase 207 H (35-129) units/L Lactate Dehydrogenase (91-180) units/L Troponin T (0.00-0.029) ng/mL C-Reactive Protein (0.00-1.30) mg/dL Albumin 3.6 L (3.9-5) g/dL 04/11/20 04/11/20 04/11/20 Range/Units 03:10 05:32 07:37 Hgb (11.8-15.2) gm/dl Hct (35.5-45.6) % MCV (84-94) fl MCH (28-32) pg MCHC (32-34) % RDW (13.2-15.2) % Lymph % (Auto) (13.4-35.0) % Lymph # (Auto) (1.2-5.4) K/mm3 Seg Neutrophils % (40.0-70.0) % D-Dimer (0-234) ng/mlDDU ABG pH (7.350-7.450) pH Units ABG pO2 (80.0-90.0) mm Hg ABG HCO3 (20.0-26.0) mmol/L ABG O2 Saturation (95.0-99.0) % ABG Base Excess (-2.0-3.0) mmol/L ABG Hemoglobin (14.0-18.0) gm/dl Sodium (137-145) mmol/L Potassium 6.2 H* (3.6-5.0) mmol/L Carbon Dioxide (22-30) mmol/L BUN (9-20) mg/dL Creatinine (0.8-1.3) mg/dL Glucose (75-100) mg/dL POC Glucose 181 H 182 H (70-105) mg/dL Lactic Acid (0.7-2.0) mmol/L Phosphorus (2.5-4.5) mg/dL Magnesium (1.7-2.3) mg/dL Total Bilirubin (0.1-1.2) mg/dL AST (5-40) units/L ALT (7-56) units/L Alkaline Phosphatase (35-129) units/L Lactate Dehydrogenase (91-180) units/L Troponin T (0.00-0.029) ng/mL C-Reactive Protein (0.00-1.30) mg/dL Albumin (3.9-5) g/dL 04/11/20 Range/Units 07:37 Hgb (11.8-15.2) gm/dl Hct (35.5-45.6) % MCV (84-94) fl MCH (28-32) pg MCHC (32-34) % RDW (13.2-15.2) % Lymph % (Auto) (13.4-35.0) % Lymph # (Auto) (1.2-5.4) K/mm3 Seg Neutrophils % (40.0-70.0) % D-Dimer (0-234) ng/mlDDU ABG pH (7.350-7.450) pH Units ABG pO2 (80.0-90.0) mm Hg ABG HCO3 (20.0-26.0) mmol/L ABG O2 Saturation (95.0-99.0) % ABG Base Excess (-2.0-3.0) mmol/L ABG Hemoglobin (14.0-18.0) gm/dl Sodium 133 L (137-145) mmol/L Potassium 6.1 H* (3.6-5.0) mmol/L Carbon Dioxide 10 L D (22-30) mmol/L BUN 26 H (9-20) mg/dL Creatinine 1.7 H (0.8-1.3) mg/dL Glucose (75-100) mg/dL POC Glucose (70-105) mg/dL Lactic Acid (0.7-2.0) mmol/L Phosphorus (2.5-4.5) mg/dL Magnesium (1.7-2.3) mg/dL Total Bilirubin (0.1-1.2) mg/dL AST (5-40) units/L ALT (7-56) units/L Alkaline Phosphatase (35-129) units/L Lactate Dehydrogenase (91-180) units/L Troponin T (0.00-0.029) ng/mL C-Reactive Protein (0.00-1.30) mg/dL Albumin (3.9-5) g/dL - Imaging and Cardiology Chest x-ray: report reviewed, image reviewed (Chest x-ray showed patchy bilater al airspace opacities.) CT scan - abdomen: report reviewed (CT abdomen and pelvis showed diffuse wall thickening involving the descending and sigmoid colon suggestive of colitis. Stable infrarenal abdominal aortic aneurysm.) Assessment and Plan Cultures: Coronavirus PCR: pending 04/10/2020 blood culture: In process A/P: 75-year-old male with CAD, diabetes mellitus, CHF with cardiomyopathy, Crohn's disease, anemia: #Acute hypoxic respiratory failure: f/u COVID PCR. Doubt bacterial pneumonia given low procalcitonin especially in the setting of KIRT. #Colitis: Patient with known history of Crohn's disease. Also could have ischemic colitis. No fever or leukocytosis to suggest infectious etiology. #Elevated LFTs: monitor, consider RUQ US if they remain elevated. #Acute kidney injury, hyperkalemia: Nephrology following Sacral decubitus: No skin breakdown, only erythema. Continue offloading and wound care. Recs: antibiotics discontinued follow up COVID-19 PCR if diarrhea, send stool studies for C.difficile and stool culture monitor LFTs, consider RUQ US Riddhi Montano MD, FACP [facility] ([facility] O: [phone] F: [phone]
[2020-04-11] MEDS ORDERED: SODIUM POLYSTYRENE 15 GM/60 ML ORAL LIQD PR SCH ×2 (14:00→15:00)
[2020-04-11] MEDS ORDERED: methylPREDNISolone Sod Suc 40 MG in SODIUM CHLORIDE 0.9% 100 ML IV SCH (14:00)
[2020-04-11] MEDS ORDERED: LIPASE 10,500/PROTEASE 25,000/AMYLASE 43,750 (UNITS) DR CAP FEEDTUBE PRN (14:22)
[2020-04-11] MEDS ORDERED: SODIUM BICARBONATE 325 MG TAB FEEDTUBE PRN (14:22)
[2020-04-11] MEDS ORDERED: SIMPLE SYRUP 15 ML FEEDTUBE PRN ×2 (14:22)
[2020-04-11] MEDS: methylPREDNISolone Sod Succinate 40 MG/1 ML INJ IV SCH ×2 (14:57→21:26)
[2020-04-11 15:51] LABS: Albumin 2.9 g/dL (3.9-5); Calcium 8.3 mg/dL (8.4-10.2)
[2020-04-11 16:36] LABS: ABG Base Excess -3.4 mmol/L (-2.0-3.0); ABG HCO3 20.4 mmol/L (20.0-26.0); ABG Methemoglobin 0.4 % (0.0-1.5); ABG Oxygen Saturation 98.1 % (95.0-99.0); ABG PCO2 31.8 mm Hg; ABG PH 7.425 pH Units (7.350-7.450); ABG PO2 110.8 mm Hg (80.0-90.0)
--- NOTE | 2020-04-11 17:26 | XRay Report ---
ABDOMEN 1 VIEW(S) INDICATION / CLINICAL INFORMATION: NG tube placement. COMPARISON: None available. FINDINGS: TUBES / LINES: The sidehole in distal tip of the nasogastric tube terminate in the fundus of the stom ach. BOWEL GAS PATTERN: No significant abnormality. FREE AIR / EXTRALUMINAL GAS: None seen. ADDITIONAL FINDINGS: Mild cardiomegaly. IMPRESSION: Nasogastric tube as described. Signer Name: Fco Cruz Jr, MD Signed: 04/11/2020 5:25 PM Workstation Name: [id number]
[2020-04-11 19:26] LABS: Creatinine,Urine 35.3 mg/dL (0.1-20.0)
[2020-04-11 19:32] LABS: Bilirubin,Urine NEG (Negative); Blood,Urine NEG (Negative); Color,Urine Yellow (Yellow); Hyaline Casts,Urine 3 /LPF; Mucus,Urine FEW /HPF; Protein,Urine <15 mg/dL mg/dL (Negative); Urobilinogen,Urine < 2.0 mg/dL (<2.0)
[2020-04-11] MEDS ORDERED: HEPARIN 10,000 UNITS/10 ML VIAL IV ONE (20:49)
[2020-04-11] MEDS ORDERED: VANCOMYCIN/NS 1 GM/250 ML 1 GM/250 ML BAG IV SCH (22:00)
[2020-04-11] MEDS ORDERED: CEFEPIME/NS 2 GM/100 ML 2 GM/100 ML BAG IV SCH (22:00)
[2020-04-12] MEDS: IPRATROPIUM/ALBUTEROL SULFATE 3 ML AMPUL.NEB IH SCH ×4 (04:16→20:12)
[2020-04-12] MEDS: INSULIN LISPRO 100 UNIT/ML VIAL 3 mL SUB-Q SCH ×4 (05:34→17:56)
[2020-04-12] MEDS: FUROSEMIDE 40 MG/4 ML INJ IV SCH ×2 (05:37→17:57)
[2020-04-12] MEDS: methylPREDNISolone Sod Succinate 40 MG/1 ML INJ IV SCH ×3 (05:37→22:04)
[2020-04-12 07:23] LABS: Hematocrit 27.8 % (35.5-45.6); Hemoglobin 9.1 gm/dl (11.8-15.2); Mean Corpuscular HGB Conc 33 % (32-34); Mean Corpuscular Volume 77 fl (84-94); Platelet Count 217 K/mm3 (140-440); Red Blood Count 3.61 M/mm3 (3.65-5.03)
[2020-04-12 07:34] LABS: INR 1.21 (0.87-1.13)
[2020-04-12 07:40] LABS: Calcium 8.7 mg/dL (8.4-10.2)
[2020-04-12 07:43] LABS: Red Cell Distribution Width 20.8 % (13.2-15.2)
[2020-04-12] MEDS: HEPARIN/ 0.45% NACL DRIP 25,000 UNIT/500 ML BAG IV SCH (08:02)
[2020-04-12] MEDS ORDERED: INSULIN REGULAR, HUMAN 100 UNIT/ML 3ML VIAL IV SCH (08:13)
[2020-04-12] MEDS ORDERED: DEXTROSE 50% IN WATER (25GM) 50 ML SYRINGE IV SCH (08:13)
[2020-04-12] MEDS ORDERED: SODIUM BICARB 8.4% 50 MEQ/50 ML SYRINGE IV SCH (08:13)
--- NOTE | 2020-04-12 09:25 | XRay Report ---
CHEST 1 VIEW INDICATION: lung scan protocol. COMPARISON: 04/10/2020 FINDINGS: SUPPORT DEVICES: NG tube in place projecting below the [id number] into the region of the upper abd omen. HEART: Within normal limits. LUNGS/PLEURA: The left diaphragm is obscured which may reflect underlying airspace disease/effusion. Right lung is clear. ADDITIONAL FINDINGS: None. IMPRESSION: 1. Pulmonary findings as above. Signer Name: Aaron Vega MD Signed: 04/12/2020 9:24 AM Workstation Name: [id number]
--- NOTE | 2020-04-12 09:36 | Nuclear Medicine Report ---
NUCLEAR MEDICINE PERFUSION LUNG SCAN INDICATION / CLINICAL INFORMATION: Elevated d-dimer. Shortness of breath. TECHNIQUE: 5 mCi of Tc-99m MAA were given by IV. COMPARISON: Chest radiograph dated 04/12/20. FINDINGS: PERFUSION: Decreased perfusion at the left lung base corresponds to left basilar pleural-parenchymal density on radiograph. No other perfusion defect. ADDITIONAL FINDINGS: None. IMPRESSION: 1. Low probability for pulmonary embolism. Signer Name: Jina Tomlinson MD Signed: 04/12/2020 9:35 AM Workstation Name: [id number]
[2020-04-12 09:47] LABS: Anisocytosis 1+; Basophils % (Manual) 0 % (0.0-1.8); Eosinophils % (Manual) 0 % (0.0-4.3); Hypochromasia 1+; Monocytes % (Manual) 0 % (0.0-7.3); Total Cells Counted 100
[2020-04-12 09:49] LABS: Schistocytes Rare
[2020-04-12 09:50] LABS: Burr Cells Few
[2020-04-12 09:51] LABS: Ovalocytes Few; Platelet Estimate Consistent w Auto; Tear Drop Cells Rare
--- NOTE | 2020-04-12 09:51 | Progress Note ---
Assessment and Plan 1. Acute kidney injury: Vasomotor KIRT superimposed on CKD. CT abdomen negative for hydro. Urine studies ordered. Monitor renal function. Creatinine level increased since yesterday. Renal prognosis is guarded. Avoid nephrotoxic agents. Meds dosage based on GFR. 2. FEN: Hyperkalemia, medications ordered, monitor. Anion-gap metabolic acidosis, 2/2 KIRT / CKD, monitor. IV Sod bicarbonate as needed. Monitor lytes and volume status. 3. Acute hypoxic respiratory failure: Was on BIPAP. Possibly secondary to the CHF exac and underlying pneumonia. COVID-19 test negative. 4. Acute exacerbation of CHF: Continue IV diuretics. Monitor daily weight, inputs and outputs. 5. Colitis: Monitor. Seen by GI. 6. Anemia, POA: Monitor. 7. Elevated Transaminases: Monitor. 8. DM type 2. 9. HTN: Monitor BP. Subjective: Patient was seen and examined at the bedside. Examination: General appearance: well-developed, appears stated age, on restrains, NG tube HEENT: ATNC, pupils equal Neck: trachea midline Respiratory: coarse breath sounds Heart: regular, S1S2, no murmur Gastrointestinal: soft, normoactive bowel sounds, not tender Integumentary: no rash, warm and dry Neurologic: alert, moving extremities Ext: no edema Subjective Date of service: 04/12/20 Objective - Vital Signs Vital signs: Vital Signs - 12hr 04/11/20 04/11/20 04/11/20 21:59 22:00 22:01 Temperature Pulse Rate 84 83 Pulse Rate [ From Monitor] Pulse Rate [ 88 Throughout] Respiratory 20 Rate Respiratory 28 H Rate [ Throughout] Blood Pressure 119/79 O2 Sat by Pulse 100 100 Oximetry 04/12/20 04/12/20 04/12/20 00:00 04:00 07:41 Temperature 98.2 F 98.8 F Pulse Rate Pulse Rate [ 85 79 From Monitor] Pulse Rate [ 81 Throughout] Respiratory 24 14 Rate Respiratory 20 Rate [ Throughout] Blood Pressure O2 Sat by Pulse 99 100 Oximetry 04/12/20 04/12/20 07:42 08:00 Temperature 97.9 F Pulse Rate Pulse Rate [ From Monitor] Pulse Rate [ Throughout] Respiratory Rate Respiratory Rate [ Throughout] Blood Pressure O2 Sat by Pulse 94 Oximetry - Lab 04/13/20 05:06 04/13/20 05:06 Most recent lab results ABG pH 7.425 pH Units (7.350-7.450) 04/11/20 16:25 ABG pCO2 31.8 mm Hg 04/11/20 16:25 ABG pO2 110.8 mm Hg (80.0-90.0) H 04/11/20 16:25 ABG HCO3 20.4 mmol/L (20.0-26.0) 04/11/20 16:25 ABG O2 Saturation 98.1 % (95.0-99.0) 04/11/20 16:25 Calcium 8.7 mg/dL (8.4-10.2) 04/12/20 06:22 Phosphorus 5.60 mg/dL (2.5-4.5) H 04/10/20 22:50 Magnesium 2.40 mg/dL (1.7-2.3) H 04/10/20 22:50 Urine Creatinine 35.3 mg/dL (0.1-20.0) H 04/11/20 Unknown Urine Sodium 92 mmol/L 04/11/20 Unknown Medications & Allergies - Medications Allergies/Adverse Reactions: Allergies Sulfa (Sulfonamide Antibiotics) Allergy (Verified 07/30/18 17:44) Rash Home Medications: Home Medications Medication Instructions Recorded Confirmed Last Taken Type Gabapentin 300 mg PO BID 09/19/16 01/29/20 09/18/16 History 300 mg Metformin HCl [metFORMIN ER 500 mg PO BIDWM 03/28/17 01/29/20 Unknown History Gastric] AtorvaSTATin 10 mg PO QHS #30 tablet 12/21/17 01/29/20 Unknown Rx Ranolazine ER [Ranexa ER] 500 mg PO BID #60 tablet 12/21/17 01/29/20 Unknown Rx Aspirin 325 mg PO QDAY #30 tablet 01/12/18 01/29/20 Unknown Rx Diphenoxylate/Atropine [Lomotil] 1 tab PO Q8H PRN 01/15/18 01/29/20 Unknown History Insulin Lispro [HumaLOG VIAL] See Protocol SQ ACHS 01/15/18 01/29/20 Unknown History Promethazine [Phenergan] 25 mg PO Q4H PRN 01/15/18 01/29/20 Unknown History Albuterol Mdi (or & Nicu Only) 2 puff IH Q4HR PRN #1 inhalation 12/21/18 01/29/20 Unknown Rx [ProAir HFA Inhaler] Furosemide [Lasix TAB] 20 mg PO QDAY #30 tablet 02/03/20 Unknown Rx Metoprolol Xl [Metoprolol 25 mg PO DAILY #60 tablet 02/03/20 Unknown Rx SUCCINATE ER TAB] levETIRAcetam [Keppra TAB] 500 mg PO BID #120 tablet 02/03/20 Unknown Rx levoFLOXacin [Levaquin TAB] 500 mg PO QDAY #5 tablet 02/03/20 Unknown Rx Active Medications: Generic Name Dose Route Start Last Admin Trade Name Freq PRN Reason Stop Dose Admin Acetaminophen 650 mg 04/11/20 01:26 Tylenol PO Q6H PRN Pain MILD(1-3)/Fever >100.5/MANCILLA Albuterol/Ipratropium 1 ampul 04/11/20 02:00 04/12/20 07:41 Duoneb *Not For Prn Use* IH 1 ampul Q6HRT [facility] Administration Lipase/Protease/Amylase 1 each 04/11/20 14:22 Pancreaze 10,500 Unit FEEDTUBE PRN PRN For Clogged Feeding Tube Dextrose 50 ml 04/12/20 08:13 D50w (25gm) Syringe IV 04/12/20 10:13 ONCE [facility] Protocol Furosemide 40 mg 04/11/20 06:00 04/12/20 05:37 Lasix IV 40 mg BID@0600,1800 [facility] Administration Heparin Sodium/Sodium Chloride 25,000 unit in 500 mls @ 20 mls/hr 04/11/20 21:00 04/12/20 08:02 Heparin/ 0.45% Nacl-25,000 Unit/500 Ml IV 1,000 units/hr TITR PR[facility]IN 20 mls/hr Administration Protocol 1,000 UNITS/HR Insulin Human Lispro 0 unit 04/12/20 00:00 04/12/20 08:01 Humalog SUB-Q Not Given Q6H [facility] Protocol Insulin Human Regular 8 unit 04/12/20 08:13 Humulin R IV 04/12/20 10:13 ONCE [facility] Magnesium Hydroxide 30 ml 04/11/20 01:26 Milk Of Magnesia PO Q4H PRN Constipation Methylprednisolone Sodium Succinate 40 mg 04/11/20 14:00 04/12/20 05:37 Solu-Medrol IV 40 mg Q8HR [facility] Administration Simple Syrup 15 ml 04/11/20 14:22 Simple Syrup FEEDTUBE PRN PRN Hypoglycemia Simple Syrup 30 ml 04/11/20 14:22 Simple Syrup FEEDTUBE PRN PRN Hypoglycemia Sodium Bicarbonate 325 mg 04/11/20 14:22 Sodium Bicarbonate FEEDTUBE PRN PRN For Clogged Feeding Tube Sodium Bicarbonate 50 meq 04/12/20 08:13 Sodium Bicarbonate 50meq Syringe IV 04/12/20 10:13 ONCE [facility] Sodium Chloride 10 ml 04/11/20 10:00 04/11/20 21:26 Sodium Chloride Flush Syringe 10 Ml IV 10 ml BID [facility] Administration Sodium Chloride 10 ml 04/11/20 01:26 Sodium Chloride Flush Syringe 10 Ml IV PRN PRN LINE FLUSH
--- NOTE | 2020-04-12 11:47 | Consultation ---
History of Present Illness Consult date: 04/12/20 Consult reason: congestive heart failure History of present illness: This is a 75-year old male who was brought to this hospital 2 days ago with shortness of breath, abdominal pain, nausea and vomiting. CT scan of the abdomen suggestive of colitis. Chest x-ray shows mild interstitial edema. VQ scan reports a low probability for PE. COVID 19 test was negative. A cardiac consultation has been requested for CHF. Patient has ischemic cardiomyopathy, chronic systolic heart failure, coronary artery disease, lost to outpatient cardiac follow up since 2017. A cardiac cath in 2017 showed patent stents in proximal circumflex and mid-distal right coronary artery. Medical therapy was recommended for small vessel coronary artery disease. Serial ec hocardiograms has persistently showed severely decrease left ventricular systolic function, ejection fraction 20%. There are multiple metabolic abnormalities including elevated liver transaminases, renal insufficiency, hyperkalemia and lactic acidosis. His presenting ECG shows atrial fibrillation versus atrial flutter with a RBBB. Rate 104. Over the hospital course he has since reverted to stable sinus rhythm. Past History Past Medical History: arthritis, CAD (H/O OK), COPD, diabetes, heart failure, hypertension, hyperlipidemia, stroke (X2), other (Crohn's disease,) Past Surgical History: PTCA Social history: smoking (Current daily smoker), alcohol abuse Family history: no significant family history Medications and Allergies Allergies Allergy/AdvReac Type Severity Reaction Status Date / Time Sulfa (Sulfonamide Allergy Rash Verified 07/30/18 17:44 Antibiotics) Home Medications Medication Instructions Recorded Confirmed Last Taken Type Gabapentin 300 mg PO BID 09/19/16 01/29/20 09/18/16 History 300 mg Metformin HCl [metFORMIN ER 500 mg PO BIDWM 03/28/17 01/29/20 Unknown History Gastric] AtorvaSTATin 10 mg PO QHS #30 tablet 12/21/17 01/29/20 Unknown Rx Ranolazine ER [Ranexa ER] 500 mg PO BID #60 tablet 12/21/17 01/29/20 Unknown Rx Aspirin 325 mg PO QDAY #30 tablet 01/12/18 01/29/20 Unknown Rx Diphenoxylate/Atropine [Lomotil] 1 tab PO Q8H PRN 01/15/18 01/29/20 Unknown History Insulin Lispro [HumaLOG VIAL] See Protocol SQ ACHS 01/15/18 01/29/20 Unknown History Promethazine [Phenergan] 25 mg PO Q4H PRN 01/15/18 01/29/20 Unknown History Albuterol Mdi (or & Nicu Only) 2 puff IH Q4HR PRN #1 inhalation 12/21/18 01/29/20 Unknown Rx [ProAir HFA Inhaler] Furosemide [Lasix TAB] 20 mg PO QDAY #30 tablet 02/03/20 Unknown Rx Metoprolol Xl [Metoprolol 25 mg PO DAILY #60 tablet 02/03/20 Unknown Rx SUCCINATE ER TAB] levETIRAcetam [Keppra TAB] 500 mg PO BID #120 tablet 02/03/20 Unknown Rx levoFLOXacin [Levaquin TAB] 500 mg PO QDAY #5 tablet 02/03/20 Unknown Rx Active Meds: Active Medications Acetaminophen (Tylenol) 650 mg PO Q6H PRN PRN Reason: Pain MILD(1-3)/Fever >100.5/MANCILLA Albuterol/Ipratropium (Duoneb *Not For Prn Use*) 1 ampul IH Q6HRT [facility] Last Admin: 04/12/20 07:41 Dose: 1 ampul Documented by: Lipase/Protease/Amylase (Gabrielle Saenz 10,500 Unit) 1 each FEEDTUBE PRN PRN PRN Reason: For Clogged Feeding Tube Furosemide (Lasix) 40 mg IV BID@0600,1800 [facility] Last Admin: 04/12/20 05:37 Dose: 40 mg Documented by: Heparin Sodium/Sodium Chloride (Heparin/ 0.45% Nacl-25,000 Unit/500 Ml) 25,000 unit in 500 mls @ 20 mls/hr IV TITR [facility]; Protocol Last Admin: 04/12/20 08:02 Dose: 1,000 units/hr, 20 mls/hr Documented by: Insulin Human Lispro (Humalog) 0 unit SUB-Q Q6H [facility]; Protocol Last Admin: 04/12/20 08:01 Dose: Not Given Documented by: Magnesium Hydroxide (Milk Of Magnesia) 30 ml PO Q4H PRN PRN Reason: Constipation Methylprednisolone Sodium Succinate (Solu-Medrol) 40 mg IV Q8HR [facility] Last Admin: 04/12/20 05:37 Dose: 40 mg Documented by: Simple Syrup (Simple Syrup) 15 ml FEEDTUBE PRN PRN PRN Reason: Hypoglycemia Simple Syrup (Simple Syrup) 30 ml FEEDTUBE PRN PRN PRN Reason: Hypoglycemia Sodium Bicarbonate (Sodium Bicarbonate) 325 mg FEEDTUBE PRN PRN PRN Reason: For Clogged Feeding Tube Sodium Chloride (Sodium Chloride Flush Syringe 10 Ml) 10 ml IV BID [facility] Last Admin: 04/12/20 10:59 Dose: 10 ml Documented by: Sodium Chloride (Sodium Chloride Flush Syringe 10 Ml) 10 ml IV PRN PRN PRN Reason: LINE FLUSH Review of Systems ROS unobtainable: due to mental status Physical Examination Vital Signs Pulse Resp BP Pulse Ox 116 H 45 H 138/84 98 04/10/20 19:45 04/10/20 19:45 04/10/20 19:45 04/10/20 19:45 General appearance: no acute distress HEENT: Positive: PERRL Neck: Positive: trachea midline Cardiac: Positive: Reg Rate and Rhythm Lungs: Positive: Decreased Breath Sounds Results 04/12/20 06:22 04/12/20 06:22 Cardiac Enzymes 04/11/20 Range/Units 15:11 AST 575 H (5-40) units/L Coagulation 04/12/20 Range/Units 06:22 PT 15.5 H (12.2-14.9) Sec. INR 1.21 H (0.87-1.13) CBC 04/12/20 Range/Units 06:22 WBC 11.5 H (4.5-11.0) K/mm3 RBC 3.61 L (3.65-5.03) M/mm3 Hgb 9.1 L (11.8-15.2) gm/dl Hct 27.8 L (35.5-45.6) % Plt Count 217 (140-440) K/mm3 Comprehensive Metabolic Panel 04/11/20 04/12/20 Range/Units 15:11 06:22 Sodium 131 L 132 L (137-145) mmol/L Potassium 5.3 H 5.3 H (3.6-5.0) mmol/L Chloride 99.5 96.6 L (98-107) mmol/L Carbon Dioxide 22 D 20 L (22-30) mmol/L BUN 33 H 43 H (9-20) mg/dL Creatinine 1.9 H 2.0 H (0.8-1.3) mg/dL Glucose 268 H 152 H (75-100) mg/dL Calcium 8.3 L 8.7 (8.4-10.2) mg/dL AST 575 H (5-40) units/L ALT 414 H (7-56) units/L Alkaline Phosphatase 153 H (35-129) units/L Total Protein 5.6 L (6.3-8.2) g/dL Albumin 2.9 L (3.9-5) g/dL Assessment and Plan Chronic systolic heart failure LVEF 15-20% by echo 01/2020 VQ scan reports a low probability for PE. COVID 19 test was negative Paroxysmal Atrial fibrillation vs flutter currently in sinus rhythm on amiodarone for suppression Hx of Ischemic cardiomyopathy noncompliant with outpatient cardiac follow up. Hx of CAD Abdominal pain CT scan of the abdomen suggestive of colitis. Elevated liver transaminases Renal insufficiency with hyperkalemia Due to elevated liver transaminases, will discontinue amiodarone. Will use beta blockers for suppression of paroxysmal atrial fibrillation. Diuretics as per Nephrology recommendations due to renal insufficiency. Medical therapy for systolic heart failure and coronary artery disease as tolerated.
--- NOTE | 2020-04-12 11:56 | Progress Note ---
Assessment and Plan Cultures: Coronavirus PCR: negative 04/10/2020 blood culture: no growth thus far A/P: 75-year-old male with CAD, diabetes mellitus, CHF with cardiomyopathy, Crohn's disease, anemia: #Colitis: Patient with known history of Crohn's disease. Also could have ischemic colitis. No fever or leukocytosis to suggest infectious etiology. No diarrhea. GI following. #Elevated LFTs: monitor, consider RUQ US if they remain elevated. #Acute kidney injury, hyperkalemia: Nephrology following. #Acute hypoxic respiratory failure: better. COVID PCR negative. Doubt bacterial pneumonia given low procalcitonin especially in the setting of KIRT. #Sacral decubitus: No skin breakdown, only erythema. Continue offloading and wound care. Recs: continue supportive care monitor LFTs, consider RUQ US ID will sign off. Please call with questions. Riddhi Montano MD, FACP [facility] O: [phone] F: [phone] Subjective Date of service: 04/12/20 Interval history: No fever. Patient is complaining of feeling thirsty. Denies any abdominal pain. Denies any nausea, vomiting or diarrhea. Objective - Exam Narrative Exam: Physical Exam Constitutional: Alert, cooperative. No acute distress Head, Ears, Nose: Normocephalic, atraumatic. External ears, nose normal Eyes: Conjunctivae/corneas clear. No icterus. No ptosis. Neck: Supple, no meningeal signs Oral: Edentulous, no thrush Cardiovascular: S1, S2 normal. Respiratory: Good air entry, clear to auscultation bilaterally GI: Soft, non-tender; bowel sounds normal. No peritoneal signs Musculoskeletal: No pedal edema, no cyanosis. Skin: No rash or abscess. Several ecchymotic areas. Hem/Lymphatic: No palpable cervical or supraclavicular nodes. No lymphangitis Psych: Mood ok. Affect normal Neurological: Awake, alert, oriented. No gross abnormality - Constitutional Vitals: Vital Signs Temp Pulse Resp BP Pulse Ox 97.9 F 81 20 119/79 94 04/12/20 08:00 04/12/20 07:41 04/12/20 07:41 04/11/20 21:59 04/12/20 07:42 Temperature -Last 24 Hours Temperature 97.9 F Temperature 98.8 F Temperature 98.2 F Temperature 98.0 F Temperature 98.5 F - Labs CBC & Chem 7: 04/12/20 06:22 04/12/20 06:22 Labs: Abnormal lab results 04/11/20 04/11/20 04/11/20 Range/Units 07:45 12:04 15:11 WBC (4.5-11.0) K/mm3 RBC (3.65-5.03) M/mm3 Hgb (11.8-15.2) gm/dl Hct (35.5-45.6) % MCV (84-94) fl MCH (28-32) pg RDW (13.2-15.2) % Seg Neuts % (Manual) (40.0-70.0) % Lymphocytes % (Manual) (13.4-35.0) % Seg Neutrophils # Man (1.8-7.7) K/mm3 Lymphocytes # (Manual) (1.2-5.4) K/mm3 PT (12.2-14.9) Sec. INR (0.87-1.13) D-Dimer (0-234) ng/mlDDU ABG pO2 (80.0-90.0) mm Hg ABG Base Excess (-2.0-3.0) mmol/L ABG Hemoglobin (14.0-18.0) gm/dl Sodium (137-145) mmol/L Potassium (3.6-5.0) mmol/L Chloride (98-107) mmol/L Carbon Dioxide (22-30) mmol/L BUN (9-20) mg/dL Creatinine (0.8-1.3) mg/dL Glucose (75-100) mg/dL POC Glucose 212 H 196 H (70-105) mg/dL Lactic Acid 2.30 H* (0.7-2.0) mmol/L Calcium (8.4-10.2) mg/dL AST (5-40) units/L ALT (7-56) units/L Alkaline Phosphatase (35-129) units/L NT-Pro-B Natriuret Pep (0-900) pg/mL Total Protein (6.3-8.2) g/dL Albumin (3.9-5) g/dL Urine Creatinine (0.1-20.0) mg/dL 04/11/20 04/11/20 04/11/20 Range/Units 15:11 15:11 15:11 WBC (4.5-11.0) K/mm3 RBC (3.65-5.03) M/mm3 Hgb (11.8-15.2) gm/dl Hct (35.5-45.6) % MCV (84-94) fl MCH (28-32) pg RDW (13.2-15.2) % Seg Neuts % (Manual) (40.0-70.0) % Lymphocytes % (Manual) (13.4-35.0) % Seg Neutrophils # Man (1.8-7.7) K/mm3 Lymphocytes # (Manual) (1.2-5.4) K/mm3 PT (12.2-14.9) Sec. INR (0.87-1.13) D-Dimer 2029.09 H (0-234) ng/mlDDU ABG pO2 (80.0-90.0) mm Hg ABG Base Excess (-2.0-3.0) mmol/L ABG Hemoglobin (14.0-18.0) gm/dl Sodium 131 L (137-145) mmol/L Potassium 5.3 H (3.6-5.0) mmol/L Chloride (98-107) mmol/L Carbon Dioxide (22-30) mmol/L BUN 33 H (9-20) mg/dL Creatinine 1.9 H (0.8-1.3) mg/dL Glucose 268 H (75-100) mg/dL POC Glucose (70-105) mg/dL Lactic Acid (0.7-2.0) mmol/L Calcium 8.3 L (8.4-10.2) mg/dL AST 575 H (5-40) units/L ALT 414 H (7-56) units/L Alkaline Phosphatase 153 H (35-129) units/L NT-Pro-B Natriuret Pep > 86592 H (0-900) pg/mL Total Protein 5.6 L (6.3-8.2) g/dL Albumin 2.9 L (3.9-5) g/dL Urine Creatinine (0.1-20.0) mg/dL 04/11/20 04/11/20 04/11/20 Range/Units 16:07 16:25 Unknown WBC (4.5-11.0) K/mm3 RBC (3.65-5.03) M/mm3 Hgb (11.8-15.2) gm/dl Hct (35.5-45.6) % MCV (84-94) fl MCH (28-32) pg RDW (13.2-15.2) % Seg Neuts % (Manual) (40.0-70.0) % Lymphocytes % (Manual) (13.4-35.0) % Seg Neutrophils # Man (1.8-7.7) K/mm3 Lymphocytes # (Manual) (1.2-5.4) K/mm3 PT (12.2-14.9) Sec. INR (0.87-1.13) D-Dimer (0-234) ng/mlDDU ABG pO2 110.8 H (80.0-90.0) mm Hg ABG Base Excess -3.4 L (-2.0-3.0) mmol/L ABG Hemoglobin 8.6 L (14.0-18.0) gm/dl Sodium (137-145) mmol/L Potassium (3.6-5.0) mmol/L Chloride (98-107) mmol/L Carbon Dioxide (22-30) mmol/L BUN (9-20) mg/dL Creatinine (0.8-1.3) mg/dL Glucose (75-100) mg/dL POC Glucose 227 H (70-105) mg/dL Lactic Acid (0.7-2.0) mmol/L Calcium (8.4-10.2) mg/dL AST (5-40) units/L ALT (7-56) units/L Alkaline Phosphatase (35-129) units/L NT-Pro-B Natriuret Pep (0-900) pg/mL Total Protein (6.3-8.2) g/dL Albumin (3.9-5) g/dL Urine Creatinine 35.3 H (0.1-20.0) mg/dL 04/12/20 04/12/20 04/12/20 Range/Units 05:57 06:22 06:22 WBC 11.5 H (4.5-11.0) K/mm3 RBC 3.61 L (3.65-5.03) M/mm3 Hgb 9.1 L (11.8-15.2) gm/dl Hct 27.8 L (35.5-45.6) % MCV 77 L (84-94) fl MCH 25 L (28-32) pg RDW 20.8 H (13.2-15.2) % Seg Neuts % (Manual) 100.0 H (40.0-70.0) % Lymphocytes % (Manual) 0 L (13.4-35.0) % Seg Neutrophils # Man 11.5 H (1.8-7.7) K/mm3 Lymphocytes # (Manual) 0.0 L (1.2-5.4) K/mm3 PT (12.2-14.9) Sec. INR (0.87-1.13) D-Dimer (0-234) ng/mlDDU ABG pO2 (80.0-90.0) mm Hg ABG Base Excess (-2.0-3.0) mmol/L ABG Hemoglobin (14.0-18.0) gm/dl Sodium (137-145) mmol/L Potassium (3.6-5.0) mmol/L Chloride (98-107) mmol/L Carbon Dioxide (22-30) mmol/L BUN (9-20) mg/dL Creatinine (0.8-1.3) mg/dL Glucose (75-100) mg/dL POC Glucose 139 H (70-105) mg/dL Lactic Acid 3.00 H* (0.7-2.0) mmol/L Calcium (8.4-10.2) mg/dL AST (5-40) units/L ALT (7-56) units/L Alkaline Phosphatase (35-129) units/L NT-Pro-B Natriuret Pep (0-900) pg/mL Total Protein (6.3-8.2) g/dL Albumin (3.9-5) g/dL Urine Creatinine (0.1-20.0) mg/dL 04/12/20 04/12/20 Range/Units 06:22 06:22 WBC (4.5-11.0) K/mm3 RBC (3.65-5.03) M/mm3 Hgb (11.8-15.2) gm/dl Hct (35.5-45.6) % MCV (84-94) fl MCH (28-32) pg RDW (13.2-15.2) % Seg Neuts % (Manual) (40.0-70.0) % Lymphocytes % (Manual) (13.4-35.0) % Seg Neutrophils # Man (1.8-7.7) K/mm3 Lymphocytes # (Manual) (1.2-5.4) K/mm3 PT 15.5 H (12.2-14.9) Sec. INR 1.21 H (0.87-1.13) D-Dimer (0-234) ng/mlDDU ABG pO2 (80.0-90.0) mm Hg ABG Base Excess (-2.0-3.0) mmol/L ABG Hemoglobin (14.0-18.0) gm/dl Sodium 132 L (137-145) mmol/L Potassium 5.3 H (3.6-5.0) mmol/L Chloride 96.6 L (98-107) mmol/L Carbon Dioxide 20 L (22-30) mmol/L BUN 43 H (9-20) mg/dL Creatinine 2.0 H (0.8-1.3) mg/dL Glucose 152 H (75-100) mg/dL POC Glucose (70-105) mg/dL Lactic Acid (0.7-2.0) mmol/L Calcium (8.4-10.2) mg/dL AST (5-40) units/L ALT (7-56) units/L Alkaline Phosphatase (35-129) units/L NT-Pro-B Natriuret Pep (0-900) pg/mL Total Protein (6.3-8.2) g/dL Albumin (3.9-5) g/dL Urine Creatinine (0.1-20.0) mg/dL
--- NOTE | 2020-04-12 12:34 | XRay Report ---
ABDOMEN 1 VIEW(S) INDICATION / CLINICAL INFORMATION: NG tube placement. COMPARISON: 04/11/2020 FINDINGS: TUBES / LINES: NG tube tip in the proximal to mid stomach, largely unchanged. BOWEL GAS PATTERN: No significant abnormality. FREE AIR / EXTRALUMINAL GAS: None seen. ADDITIONAL FINDINGS: There appear to be a couple subacute-appearing left lateral lower rib fractures with some external callus formation, largely unchanged. IMPRESSION: 1. NGT remains in the proximal to mid stomach. Signer Name: Aaron Vega MD Signed: 04/12/2020 12:33 PM Workstation Name: [id number]
--- NOTE | 2020-04-12 15:40 | Vascular Lab Report ---
DUPLEX DOPPLER LOWER EXTREMITY VEINS, BILATERAL INDICATION / CLINICAL INFORMATION: elevated ddimer. TECHNIQUE: Duplex doppler imaging was performed through the veins of both lower extremities using venous brynn jayson and other maneuvers. COMPARISON: None available. FINDINGS: RIGHT COMMON FEMORAL VEIN: Negative. RIGHT FEMORAL VEIN: Negative. RIGHT POPLITEAL VEIN: Negative. RIGHT CALF VEINS: Negative. LEFT COMMON FEMORAL VEIN: Negative. LEFT FEMORAL VEIN: Negative. LEFT POPLITEAL VEIN: Negative. LEFT CALF VEINS: Negative. ADDITIONAL FINDINGS: None. IMPRESSION: No sonographic evidence for DVT in either lower extremity. Signer Name: Anders Spencer MD Signed: 04/12/2020 3:39 PM Workstation Name: [id number]
--- OUTSIDE RECORDS SUMMARY | 2020-04-12 16:37 | External Medical Summary ---
:1945 Author Care Team Providers Name Role Phone Suki Primary Care Provider Sterling Primary Care Provider Mary Primary Care Provider Reason for Referral Reason No Reason given Assessment No Assessments Health Concern No Health Concerns Goals No Goals Medications Code Code System Medication Frequency Route Dose Active 926673 (SCD) RxNorm clopidogrel 75 mg 1 by mouth daily oral 1 unit Active tablet 332840 (SBD) RxNorm Ranexa 500 mg 1 by mouth twice oral 1 unit Active tablet extended daily release 12 hr 275270 (SCD) RxNorm lisinopril 5 mg 1 by mouth daily oral 1 un it Active tablet 682766 (SCD) RxNorm triamterene-hydroch 1 by mouth daily oral 1 unit Active lorothiazid 37.5-25 make follow up mg tablet appt for further refills 193618 (SCD) RxNorm isosorbide 1 by mouth daily oral 1 unit Active mononitrate 60 mg tablet extended release 24 hr 396109 (SCD) RxNorm amlodipine 10 mg 1 by mouth daily oral 1 u nit Active tablet 237471 (SCD) RxNorm metoprolol 1 by mouth daily oral 1 unit Active succinate 25 mg tablet extended release 24 hr 190771 (SCD) RxNorm aspirin 325 mg 1 by mouth daily oral 1 uni t Active tablet 966696 (SBD) RxNorm Humulin R Regular Take as Directed injection 1 unit Active U-100 Insuln 100 unit/mL solution 046319 (SCD) RxNorm gabapentin 100 mg 1 by mouth at oral 1 uni t Active capsule bedtime 19910830 (SCD) RxNorm glimepiride 2 mg 1 by mouth twice oral 1 u nit Active tablet daily 499823 (SCD) RxNorm metformin 500 mg 1 by mouth twice oral 1 u nit Active tablet daily 706493 (SCD) RxNorm albuterol sulfate as needed inhalation 1 unit Active 2.5 mg /3 mL (0.083 %) solution for nebulization 039738 (SBD) RxNorm Nitrostat 0.4 mg as needed sublingual 1 unit Active tablet, sublingual 000822 (SBD) RxNorm Novolin R Regular sliding scale injection 1 uni t Active U-100 Insuln 100 unit/mL solution Social History Element Description Status Start End Code Code System Current Smoking Status Current every day 02/04/2018 - 793990 002 SNOMED-CT smoker 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 Lab Results No Lab or Diagnostic Image Data Functional Status No Functional Status Information History of Procedures No Known Procedures History of Encounters Description Vist Date Vist Code Code System Code Code System Description THALLIUM PROFESSIONAL 04/12/2016 0311496 CPT R07.2 RYX48-HL Precordial pain R07.2 IWP66-KT Precordial pain R07.2 AHM60-LM Precordial pain EKG 04/24/2016 34474 CPT I10 JWF78-RJ Essential (primary) hypertension 688049109 SNOMED-CT Atherosclerosis of c oronary artery (disorder) 431799513 SNOMED-CT Atherosclerosis of c oronary artery (disorder) 011092307 SNOMED-CT Atherosclerosis of c oronary artery (disorder) NEW PATIENT COMPREHENSIVE HIGH 04/24/2016 44939 C PT I10 YKE38-MC Essential (primary) hypertension 851792272 SNOMED-CT Atherosclerosis of c oronary artery (disorder) 73950910 SNOMED-CT Cardiomyopathy (diso rder) 78904689 SNOMED-CT Chronic congestive h eart failure (disorder) INITIAL HOSP CARE 04/12/2016 73858 CPT R07.2 ZZK39-UI Precordial pain R07.2 VTF85-UA Precordial pain ECHO PROFESSIONAL 04/12/2016 6670568 CPT I36.8 HAH20-HD Other nonrheumatic t ricuspid valve disorders OV OR OUTPT SEVERE 05/13/2016 11774 CPT I10 UHF97-HD Essential (primary) hypertension 414513072 SNOMED-CT Atherosclerosis of c oronary artery (disorder) 34412594 SNOMED-CT Cardiomyopathy (diso rder) 16108213 SNOMED-CT Chronic congestive h eart failure (disorder) I10 ZXK51-PM Essential (primary) hypertension I10 EVJ19-DX Essential (primary) hypertension I10 YKW48-UD Essential (primary) hypertension 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 05/06/2016 41438 CPT 349481712 SNOMED-CT Atherosclerosis of c oronary artery (disorder) 023291249 SNOMED-CT Atherosclerosis of c oronary artery (disorder) EKG 06/24/2016 43006 CPT R06.02 OCG85-CD Shortness of breath OV OR OUTPT SEVERE 07/01/2016 18375 CPT I10 QRE43-UN Essential (primary) hypertension 817087182 SNOMED-CT Atherosclerosis of c oronary artery (disorder) 87971837 SNOMED-CT Cardiomyopathy (diso rder) 76837348 SNOMED-CT Chronic congestive h eart failure (disorder) I10 KKI60-IT Essential (primary) hypertension 680467479 SNOMED-CT Atherosclerosis of c oronary artery (disorder) 51786811 SNOMED-CT Cardiomyopathy (diso rder) 88091527 SNOMED-CT Chronic congestive h eart failure (disorder) I10 LMF20-TZ Essential (primary) hypertension 411058583 SNOMED-CT Atherosclerosis of c oronary artery (disorder) 26817083 SNOMED-CT Cardiomyopathy (diso rder) 89661118 SNOMED-CT Chronic congestive h eart failure (disorder) I10 BKW45-ZB Essential (primary) hypertension 620275168 SNOMED-CT Atherosclerosis of c oronary artery (disorder) 78679897 SNOMED-CT Cardiomyopathy (diso rder) 15801807 SNOMED-CT Chronic congestive h eart failure (disorder) EKG 07/01/2016 78377 CPT R06.02 BDT25-NX Shortness of breath OV OR OUTPT SEVERE 09/11/2016 82512 CPT 38904573 SNOMED-CT Cardiomyopathy (diso rder) 02213884 SNOMED-CT Chronic congestive h eart failure (disorder) R06.02 EDD76-VI Shortness of breath 653292276 SNOMED-CT Electrocardiogram ab normal (finding) 97815405 SNOMED-CT Cardiomyopathy (diso rder) 56153793 SNOMED-CT Chronic congestive h eart failure (disorder) R06.02 HGB01-RU Shortness of breath 599232999 SNOMED-CT Electrocardiogram ab normal (finding) 26473232 SNOMED-CT Cardiomyopathy (diso rder) 82804199 SNOMED-CT Chronic congestive h eart failure (disorder) R06.02 UQE37-NF Shortness of breath 882045649 SNOMED-CT Electrocardiogram ab normal (finding) 80210923 SNOMED-CT Cardiomyopathy (diso rder) 53188204 SNOMED-CT Chronic congestive h eart failure (disorder) R06.02 UQZ68-MT Shortness of breath 290143064 SNOMED-CT Electrocardiogram ab normal (finding) 04957615 SNOMED-CT Cardiomyopathy (diso rder) 47020691 SNOMED-CT Chronic congestive h eart failure (disorder) R06.02 PJQ20-XD Shortness of breath 326041976 SNOMED-CT Electrocardiogram ab normal (finding) RT LF HEART CATH 09/19/2016 3196312 CPT 869155036 SNOMED-CT Atherosclerosis of c oronary artery (disorder) I27.0 XZL37-YN Primary pulmonary hy pertension EKG 10/04/2016 60593 CPT I10 DXS48-KD Essential (primary) hypertension OV OR OUTPT SEVERE 10/04/2016 07573 CPT I10 GHL57-PT Essential (primary) hypertension 646894861 SNOMED-CT Atherosclerosis of c oronary artery (disorder) 31560655 SNOMED-CT Cardiomyopathy (diso rder) 12406453 SNOMED-CT Chronic congestive h eart failure (disorder) OV OR OUTPT SEVERE 11/29/2016 34759 CPT I10 UUK83-ED Essential (primary) hypertension 530150639 SNOMED-CT Atherosclerosis of c oronary artery (disorder) 03324928 SNOMED-CT Cardiomyopathy (diso rder) 89922936 SNOMED-CT Chronic congestive h eart failure (disorder) I10 ZKY40-DX Essential (primary) hypertension 401815461 SNOMED-CT Atherosclerosis of c oronary artery (disorder) 02940552 SNOMED-CT Cardiomyopathy (diso rder) 80713200 SNOMED-CT Chronic congestive h eart failure (disorder) INITIAL HOSP CARE 12/20/2017 81344 CPT I10 WUP75-EU Essential (primary) hypertension 831986032 SNOMED-CT Atherosclerosis of c oronary artery (disorder) I25.5 XFT66-JI Ischemic cardiomyopa thy R07.2 TGX82-JY Precordial pain I10 UPD50-OU Essential (primary) hypertension 045672692 SNOMED-CT Atherosclerosis of c oronary artery (disorder) I25.5 QLD52-RW Ischemic cardiomyopa thy R07.2 XTM81-GD Precordial pain I10 BJZ95-LA Essential (primary) hypertension 279246263 SNOMED-CT Atherosclerosis of c oronary artery (disorder) I25.5 MSP13-YL Ischemic cardiomyopa thy R07.2 ORY50-HI Precordial pain THALLIUM PROFESSIONAL 12/20/2017 3215130 CPT 161184260 SNOMED-CT Atherosclerosis of c oronary artery (disorder) 644834573 SNOMED-CT Atherosclerosis of c oronary artery (disorder) 526138584 SNOMED-CT Atherosclerosis of c oronary artery (disorder) ECHO PROFESSIONAL 12/21/2017 3278463 CPT I36.8 PTW43-VJ Other nonrheumatic t ricuspid valve disorders SUBSEQUENT CARE DETAIL 12/30/2017 26347 CPT I10 QOE62-XX Essential (primary) hypertension I20.0 KTT53-NS Unstable angina 531554065 SNOMED-CT Atherosclerosis of c oronary artery (disorder) I25.5 NLQ25-BP Ischemic cardiomyopa thy SUBSEQUENT CARE DETAIL 12/31/2017 92754 CPT I10 YUD08-VA Essential (primary) hypertension I20.0 JLI81-WB Unstable angina 766903987 SNOMED-CT Atherosclerosis of c oronary artery (disorder) I25.5 CGZ50-IS Ischemic cardiomyopa thy SUBSEQUENT CARE MED 01/01/2018 15821 CPT I10 KYG26-ZO Essential (primary) hypertension I20.0 LPJ70-JK Unstable angina 342247135 SNOMED-CT Atherosclerosis of c oronary artery (disorder) I25.5 GXA11-XF Ischemic cardiomyopa thy ECHO PROFESSIONAL 01/28/2020 6518476 CPT I34.8 PEW48-NE Other nonrheumatic m itral valve disorders I35.8 RCJ37-ZY Other nonrheumatic a ortic valve disorders I42.0 ZVH18-YE DILATED CARDIOMYOPAT HY I51.7 EGC90-DK Cardiomegaly ECHO FU LIMITED PROFESSIONAL 01/31/2020 2153545 CPT I34.8 MQO51-UR Other nonrheumatic m itral valve disorders I35.8 XWQ87-KR Other nonrheumatic a ortic valve disorders I42.0 ZTU72-CV DILATED CARDIOMYOPAT HY I51.7 DSE39-RF Cardiomegaly Plan of Treatment No Plan of Treatment Supplied Medical Equipment No History of Medical Devices Mental Status No Mental Status Information Vital Signs Code Code System Vital Name Timing Information Value and Units 8480-6 [facility] Blood 11/29/2016 Value =130 (Systolic) Pressure-Systolic units=mm[H g] 8462-4 [facility] Blood 11/29/2016 Value =72 (Diastolic) Pressure-Diastolic units=mm[ Hg] 8867-4 [facility] Heart Rate 11/29/2016 Value =80 units=/min 9279-1 [facility] Respiration 11/29/2016 Value =16 units=/min 8302-2 [facility] Height 11/29/2016 Value =170 units=cm 27410-1 [facility] Weight 11/29/2016 Value =73 units=kg 67824-2 [facility] BMI 11/29/2016 Value =25.37 units=kg/m2 8480-6 [facility] Blood 10/04/2016 Value =120 (Systolic) Pressure-Systolic units=mm[H g] 8462-4 [facility] Blood 10/04/2016 Value =70 (Diastolic) Pressure-Diastolic units=mm[ Hg] 8867-4 [facility] Heart Rate 10/04/2016 Value =80 units=/min 9279-1 [facility] Respiration 10/04/2016 Value =18 units=/min 8302-2 [facility] Height 10/04/2016 Value =170 units=cm 28904-2 [facility] Weight 10/04/2016 Value =77 units=kg 72882-9 [facility] BMI 10/04/2016 Value =26.62 units=kg/m2 8480-6 [facility] Blood 09/11/2016 Value =117 (Systolic) Pressure-Systolic units=mm[H g] 8462-4 [facility] Blood 09/11/2016 Value =75 (Diastolic) Pressure-Diastolic units=mm[ Hg] 8867-4 [facility] Heart Rate 09/11/2016 Value =75 units=/min 9279-1 [facility] Respiration 09/11/2016 Value =15 units=/min 8302-2 [facility] Height 09/11/2016 Value =170 units=cm 99538-1 [facility] Weight 09/11/2016 Value =76 units=kg 66476-4 [facility] BMI 09/11/2016 Value =26.31 units=kg/m2 8480-6 [facility] Blood 07/01/2016 Value =106 (Systolic) Pressure-Systolic units=mm[H g] 8462-4 [facility] Blood 07/01/2016 Value =60 (Diastolic) Pressure-Diastolic units=mm[ Hg] 8867-4 [facility] Heart Rate 07/01/2016 Value =73 units=/min 9279-1 [facility] Respiration 07/01/2016 Value =16 units=/min 8302-2 [facility] Height 07/01/2016 Value =170 units=cm 05127-0 [facility] Weight 07/01/2016 Value =74 units=kg 93457-9 [facility] BMI 07/01/2016 Value =25.53 units=kg/m2 8480-6 [facility] Blood 06/24/2016 Value =108 (Systolic) Pressure-Systolic units=mm[H g] 8462-4 [facility] Blood 06/24/2016 Value =60 (Diastolic) Pressure-Diastolic units=mm[ Hg] 8867-4 [facility] Heart Rate 06/24/2016 Value =89 units=/min 9279-1 [facility] Respiration 06/24/2016 Value =17 units=/min 8302-2 [facility] Height 06/24/2016 Value =170 units=cm 18791-1 [facility] Weight 06/24/2016 Value =74 units=kg 56369-5 [facility] BMI 06/24/2016 Value =25.46 units=kg/m2 8480-6 [facility] Blood 05/13/2016 Value =130 (Systolic) Pressure-Systolic units=mm[H g] 8462-4 [facility] Blood 05/13/2016 Value =70 (Diastolic) Pressure-Diastolic units=mm[ Hg] 8867-4 [facility] Heart Rate 05/13/2016 Value =92 units=/min 9279-1 [facility] Respiration 05/13/2016 Value =16 units=/min 8302-2 [facility] Height 05/13/2016 Value =170 units=cm 56456-4 [facility] Weight 05/13/2016 Value =72 units=kg 09410-0 [facility] BMI 05/13/2016 Value =24.74 units=kg/m2 8480-6 [facility] Blood 04/24/2016 Value =130 (Systolic) Pressure-Systolic units=mm[H g] 8462-4 [facility] Blood 04/24/2016 Value =70 (Diastolic) Pressure-Diastolic units=mm[ Hg] 8867-4 [facility] Heart Rate 04/24/2016 Value =87 units=/min 9279-1 [facility] Respiration 04/24/2016 Value =16 units=/min 8302-2 [facility] Height 04/24/2016 Value =170 units=cm 25446-7 [facility] Weight 04/24/2016 Value =70 units=kg 48060-5 [facility] BMI 04/24/2016 Value =24.12 units=kg/m2 Allergies, adverse reactions, alerts Code Code System Allergy Reaction Severity Concern Statu s -1 (IN) Gemms 7.6 Sulfa (Sulfonamide Intolerance-unknown Unknown Active Antibiotics) (code - 31405761, SNOMED-CT) -1 (IN) Gemms 7.6 No Known Drug (code - , Unknown Inactive Allergies SNOMED-CT) Immunizations No Known Immunizations Problem List Code Code System Condition Concern Status [id number] SNOMED-CT Electrocardiogram abnormal (find ing) Active 560829539 SNOMED-CT Atherosclerosis of coronary vlad ry (disorder) Active 65005643 SNOMED-CT Cardiomyopathy (disorder) Active I10 ICD10 Essential (primary) hypertension Active 10602408 SNOMED-CT Chronic congestive heart failure (disorder) Active R06.02 ICD10 Shortness of breath Active
--- NOTE | 2020-04-12 16:42 | Gastroenterology Progress Note ---
Assessment and Plan - Patient Problems (1) Crohn's disease Current Visit: Yes Status: Acute Plan to address problem: - ileocolonic Crohns disease - last colonoscopy in 12/2018 showing diffuse small pseudopolyps throughout the colon, patchy erythema in the left colon. Noted to have noncompliance with follow up. Currently not on any medication for Crohns disease. - CT in the ED showed diffuse wall thickening and fat stranding involving descending and sigmoid colon. - colitis, possible Crohns flare up vs infectious colitis, vs ischemic colitis - no clinical symptoms to correlate including abdominal pain, diarrhea. - failed speech evaluation and now with NG tube. Rec - currently on steroids for COPD exacerbation. - if having diarrhea, obtain stool studies to rule out C diff. - supportive care. - management for respiratory distress/CHF exacerbation/pneumonia per primary team. - will follow. (2) Elevated liver enzymes Current Visit: Yes Status: Acute Plan to address problem: - elevated AST and ALT - ddx including ischemic injury vs medication induced. was on amiodarone but now off. - checking acute hepatitis panel - RUQ US ordered. - monitor LFTs. Subjective Date of service: 04/12/20 Interval history: Patient failed speech evaluation yesterday. NG tube placed for tube feeds. No diarrhea or abdominal pain. Objective - Constitutional Vitals: Temp Pulse Resp BP Pulse Ox 97.9 F 98 H 20 119/79 100 04/12/20 08:00 04/12/20 12:00 04/12/20 12:00 04/11/20 21:59 04/12/20 12:00 General appearance: no acute distress - EENT ENT: hearing intact - Respiratory Respiratory effort: normal - Cardiovascular Rhythm: regular Heart Sounds: Present: S1 & S2 - Gastrointestinal General gastrointestinal: Present: soft, non-tender, non-distended - Integumentary Integumentary: Present: clear, warm - Labs CBC & Chem 7: 04/12/20 06:22 04/12/20 06:22 Labs: Laboratory Results - last 24 hr 04/11/20 04/11/20 04/11/20 07:45 12:04 15:11 WBC RBC Hgb Hct MCV MCH MCHC RDW Plt Count Add Manual Diff Total Counted Seg Neutrophils % Seg Neuts % (Manual) Band Neutrophils % Lymphocytes % (Manual) Reactive Lymphs % (Man) Monocytes % (Manual) Eosinophils % (Manual) Basophils % (Manual) Metamyelocytes % Myelocytes % Promyelocytes % Blast Cells % Nucleated RBC % Seg Neutrophils # Man Band Neutrophils # Lymphocytes # (Manual) Abs React Lymphs (Man) Monocytes # (Manual) Eosinophils # (Manual) Basophils # (Manual) Metamyelocytes # Myelocytes # Promyelocytes # Blast Cells # WBC Morphology Hypersegmented Neuts Hyposegmented Neuts Hypogranular Neuts Smudge Cells Toxic Granulation Toxic Vacuolation Dohle Bodies Pelger-Huet Anomaly Barby Rods Platelet Estimate Clumped Platelets Plt Clumps, EDTA Large Platelets Giant Platelets Platelet Satelliting Plt Morphology Comment RBC Morphology Dimorphic RBCs Polychromasia Hypochromasia Poikilocytosis Anisocytosis Microcytosis Macrocytosis Spherocytes Pappenheimer Bodies Sickle Cells Target Cells Tear Drop Cells Ovalocytes Helmet Cells Sn[place] Bodies [place] Rings Marcia Cells Bite Cells Crenated Cell Elliptocytes Acanthocytes (Spur) Rouleaux Hemoglobin C Crystals Schistocytes Malaria parasites Willie Bodies Hem Pathologist Commnt PT INR Sodium Potassium Chloride Carbon Dioxide Anion Gap BUN Creatinine Estimated GFR BUN/Creatinine Ratio Glucose POC Glucose 212 H 196 H Lactic Acid Calcium Procalcitonin 2.47 Urine Color Urine Turbidity Urine pH Ur Specific [place] Urine Protein Urine Glucose (UA) Urine Ketones Urine Blood Urine Nitrite Urine Bilirubin Urine Urobilinogen Ur Leukocyte Esterase Urine WBC (Auto) Urine RBC (Auto) U Epithel Cells (Auto) Hyaline Casts Urine Mucus Urine Eosinophils Urine Creatinine Urine Sodium 04/11/20 04/11/20 04/11/20 16:07 23:39 Unknown WBC RBC Hgb Hct MCV MCH MCHC RDW Plt Count Add Manual Diff Total Counted Seg Neutrophils % Seg Neuts % (Manual) Band Neutrophils % Lymphocytes % (Manual) Reactive Lymphs % (Man) Monocytes % (Manual) Eosinophils % (Manual) Basophils % (Manual) Metamyelocytes % Myelocytes % Promyelocytes % Blast Cells % Nucleated RBC % Seg Neutrophils # Man Band Neutrophils # Lymphocytes # (Manual) Abs React Lymphs (Man) Monocytes # (Manual) Eosinophils # (Manual) Basophils # (Manual) Metamyelocytes # Myelocytes # Promyelocytes # Blast Cells # WBC Morphology Hypersegmented Neuts Hyposegmented Neuts Hypogranular Neuts Smudge Cells Toxic Granulation Toxic Vacuolation Dohle Bodies Pelger-Huet Anomaly Barby Rods Platelet Estimate Clumped Platelets Plt Clumps, EDTA Large Platelets Giant Platelets Platelet Satelliting Plt Morphology Comment RBC Morphology Dimorphic RBCs Polychromasia Hypochromasia Poikilocytosis Anisocytosis Microcytosis Macrocytosis Spherocytes Pappenheimer Bodies Sickle Cells Target Cells Tear Drop Cells Ovalocytes Helmet Cells [place] Bodies [place] Sartell Cells Bite Cells Crenated Cell Elliptocytes Acanthocytes (Spur) Rouleaux Hemoglobin C Crystals Schistocytes Malaria parasites Willie Bodies Hem Pathologist Commnt PT INR Sodium Potassium Chloride Carbon Dioxide Anion Gap BUN Creatinine Estimated GFR BUN/Creatinine Ratio Glucose POC Glucose 227 H 99 Lactic Acid Calcium Procalcitonin Urine Color Yellow Urine Turbidity Clear Urine pH 5.0 Ur Specific [place] 1.009 Urine Protein <15 mg/dl Urine Glucose (UA) Neg Urine Ketones Neg Urine Blood Neg Urine Nitrite Neg Urine Bilirubin Neg Urine Urobilinogen < 2.0 Ur Leukocyte Esterase Neg Urine WBC (Auto) 1.0 Urine RBC (Auto) 2.0 U Epithel Cells (Auto) < 1.0 Hyaline Casts 3 Urine Mucus Few Urine Eosinophils Urine Creatinine Urine Sodium 04/11/20 04/11/20 04/12/20 Unknown Unknown 05:57 WBC RBC Hgb Hct MCV MCH MCHC RDW Plt Count Add Manual Diff Total Counted Seg Neutrophils % Seg Neuts % (Manual) Band Neutrophils % Lymphocytes % (Manual) Reactive Lymphs % (Man) Monocytes % (Manual) Eosinophils % (Manual) Basophils % (Manual) Metamyelocytes % Myelocytes % Promyelocytes % Blast Cells % Nucleated RBC % Seg Neutrophils # Man Band Neutrophils # Lymphocytes # (Manual) Abs React Lymphs (Man) Monocytes # (Manual) Eosinophils # (Manual) Basophils # (Manual) Metamyelocytes # Myelocytes # Promyelocytes # Blast Cells # WBC Morphology Hypersegmented Neuts Hyposegmented Neuts Hypogranular Neuts Smudge Cells Toxic Granulation Toxic Vacuolation Dohle Bodies Pelger-Huet Anomaly Barby Rods Platelet Estimate Clumped Platelets Plt Clumps, EDTA Large Platelets Giant Platelets Platelet Satelliting Plt Morphology Comment RBC Morphology Dimorphic RBCs Polychromasia Hypochromasia Poikilocytosis Anisocytosis Microcytosis Macrocytosis Spherocytes Pappenheimer Bodies Sickle Cells Target Cells Tear Drop Cells Ovalocytes Helmet Cells [place] Bodies [place] Cells Bite Cells Crenated Cell Elliptocytes Acanthocytes (Spur) Rouleaux Hemoglobin C Crystals Schistocytes Malaria parasites Willie Bodies Hem Pathologist Commnt PT INR Sodium Potassium Chloride Carbon Dioxide Anion Gap BUN Creatinine Estimated GFR BUN/Creatinine Ratio Glucose POC Glucose 139 H Lactic Acid Calcium Procalcitonin Urine Color Urine Turbidity Urine pH Ur Specific [place] Urine Protein Urine Glucose (UA) Urine Ketones Urine Blood Urine Nitrite Urine Bilirubin Urine Urobilinogen Ur Leukocyte Esterase Urine WBC (Auto) Urine RBC (Auto) U Epithel Cells (Auto) Hyaline Casts Urine Mucus Urine Eosinophils None seen Urine Creatinine 35.3 H Urine Sodium 92 04/12/20 04/12/20 04/12/20 06:22 06:22 06:22 WBC 11.5 H RBC 3.61 L Hgb 9.1 L Hct 27.8 L MCV 77 L MCH 25 L MCHC 33 RDW 20.8 H Plt Count 217 Add Manual Diff Complete Total Counted 100 Seg Neutrophils % Measuring Clerk Seg Neuts % (Manual) 100.0 H Band Neutrophils % 0 Lymphocytes % (Manual) 0 L Reactive Lymphs % (Man) 0 Monocytes % (Manual) 0 Eosinophils % (Manual) 0 Basophils % (Manual) 0 Metamyelocytes % 0 Myelocytes % 0 Promyelocytes % 0 Blast Cells % 0 Nucleated RBC % Not Reportable Seg Neutrophils # Man 11.5 H Band Neutrophils # 0.0 Lymphocytes # (Manual) 0.0 L Abs React Lymphs (Man) 0.0 Monocytes # (Manual) 0.0 Eosinophils # (Manual) 0.0 Basophils # (Manual) 0.0 Metamyelocytes # 0.0 Myelocytes # 0.0 Promyelocytes # 0.0 Blast Cells # 0.0 WBC Morphology Not Reportable Hypersegmented Neuts Not Reportable Hyposegmented Neuts Not Reportable Hypogranular Neuts Not Reportable Smudge Cells Not Reportable Toxic Granulation Not Reportable Toxic Vacuolation Not Reportable Dohle Bodies Not Reportable Pelger-Huet Anomaly Not Reportable Barby Rods Not Reportable Platelet Estimate Consistent w auto Clumped Platelets Not Reportable Plt Clumps, EDTA Not Reportable Large Platelets Not Reportable Giant Platelets Not Reportable Platelet Satelliting Not Reportable Plt Morphology Comment Not Reportable RBC Morphology Not Reportable Dimorphic RBCs Not Reportable Polychromasia Not Reportable Hypochromasia 1+ Poikilocytosis Not Reportable Anisocytosis 1+ Microcytosis Not Reportable Macrocytosis Not Reportable Spherocytes Not Reportable Pappenheimer Bodies Not Reportable Sickle Cells Not Reportable Target Cells Not Reportable Tear Drop Cells Rare Ovalocytes Few Helmet Cells Not Reportable Sn[place] Bodies Not Reportable [place] Rings Not Reportable [place] Cells Few Bite Cells Not Reportable Crenated Cell Not Reportable Elliptocytes Not Reportable Acanthocytes (Spur) Not Reportable Rouleaux Not Reportable Hemoglobin C Crystals Not Reportable Schistocytes Rare Malaria parasites Not Reportable Willie Bodies Not Reportable Hem Pathologist Commnt No PT 15.5 H INR 1.21 H Sodium Potassium Chloride Carbon Dioxide Anion Gap BUN Creatinine Estimated GFR BUN/Creatinine Ratio Glucose POC Glucose Lactic Acid 3.00 H* Calcium Procalcitonin Urine Color Urine Turbidity Urine pH Ur Specific [place] Urine Protein Urine Glucose (UA) Urine Ketones Urine Blood Urine Nitrite Urine Bilirubin Urine Urobilinogen Ur Leukocyte Esterase Urine WBC (Auto) Urine RBC (Auto) U Epithel Cells (Auto) Hyaline Casts Urine Mucus Urine Eosinophils Urine Creatinine Urine Sodium 04/12/20 06:22 WBC RBC Hgb Hct MCV MCH MCHC RDW Plt Count Add Manual Diff Total Counted Seg Neutrophils % Seg Neuts % (Manual) Band Neutrophils % Lymphocytes % (Manual) Reactive Lymphs % (Man) Monocytes % (Manual) Eosinophils % (Manual) Basophils % (Manual) Metamyelocytes % Myelocytes % Promyelocytes % Blast Cells % Nucleated RBC % Seg Neutrophils # Man Band Neutrophils # Lymphocytes # (Manual) Abs React Lymphs (Man) Monocytes # (Manual) Eosinophils # (Manual) Basophils # (Manual) Metamyelocytes # Myelocytes # Promyelocytes # Blast Cells # WBC Morphology Hypersegmented Neuts Hyposegmented Neuts Hypogranular Neuts Smudge Cells Toxic Granulation Toxic Vacuolation Dohle Bodies Pelger-Huet Anomaly Barby Rods Platelet Estimate Clumped Platelets Plt Clumps, EDTA Large Platelets Giant Platelets Platelet Satelliting Plt Morphology Comment RBC Morphology Dimorphic RBCs Polychromasia Hypochromasia Poikilocytosis Anisocytosis Microcytosis Macrocytosis Spherocytes Pappenheimer Bodies Sickle Cells Target Cells Tear Drop Cells Ovalocytes Helmet Cells [place] Bodies [place] Rings Marcia Cells Bite Cells Crenated Cell Elliptocytes Acanthocytes (Spur) Rouleaux Hemoglobin C Crystals Schistocytes Malaria parasites Willie Bodies Hem Pathologist Commnt PT INR Sodium 132 L Potassium 5.3 H Chloride 96.6 L Carbon Dioxide 20 L Anion Gap 21 BUN 43 H Creatinine 2.0 H Estimated GFR 33 BUN/Creatinine Ratio 22 Glucose 152 H POC Glucose Lactic Acid Calcium 8.7 Procalcitonin Urine Color Urine Turbidity Urine pH Ur Specific [place] Urine Protein Urine Glucose (UA) Urine Ketones Urine Blood Urine Nitrite Urine Bilirubin Urine Urobilinogen Ur Leukocyte Esterase Urine WBC (Auto) Urine RBC (Auto) U Epithel Cells (Auto) Hyaline Casts Urine Mucus Urine Eosinophils Urine Creatinine Urine Sodium
[2020-04-12] MEDS ORDERED: SODIUM POLYSTYRENE 15 GM/60 ML ORAL LIQD PO SCH (19:00)
[2020-04-12 21:37] LABS: Calcium 8.5 mg/dL (8.4-10.2)
[2020-04-12 21:59] LABS: Hepatitis B Surface Antigen Non-Reactive (Negative); Hepatitis C Virus Antibody Non-Reactive (NonReactive)
[2020-04-12] MEDS: carvediloL 6.25 MG TAB PO SCH (22:04)
[2020-04-12] MEDS ORDERED: HEPARIN 10,000 UNITS/10 ML VIAL IV ONE (22:39)
--- NOTE | 2020-04-12 22:57 | XRay Report ---
XR abdomen 1V ap INDICATION: tube placement. COMPARISON: 04/12/2020 FINDINGS: The tip of the feeding tube projects over the body of the stomach. Signer Name: Jacinto Lawson MD Signed: 04/12/2020 10:56 PM Workstation Name: [id number]
[2020-04-13] MEDS: INSULIN LISPRO 100 UNIT/ML VIAL 3 mL SUB-Q SCH ×4 (00:31→18:16)
[2020-04-13] MEDS: IPRATROPIUM/ALBUTEROL SULFATE 3 ML AMPUL.NEB IH SCH ×4 (02:48→21:38)
[2020-04-13] MEDS ORDERED: dilTIAZem 25 MG/5 ML INJ IV ONE (03:11)
[2020-04-13] MEDS: methylPREDNISolone Sod Succinate 40 MG/1 ML INJ IV SCH ×3 (05:14→21:29)
[2020-04-13] MEDS: FUROSEMIDE 40 MG/4 ML INJ IV SCH ×2 (05:14→06:14)
[2020-04-13] MEDS: HEPARIN/ 0.45% NACL DRIP 25,000 UNIT/500 ML BAG IV SCH (05:18)
[2020-04-13 05:36] LABS: Hematocrit 26.6 % (35.5-45.6); Hemoglobin 8.4 gm/dl (11.8-15.2)
[2020-04-13] MEDS: carvediloL 6.25 MG TAB PO SCH ×2 (05:37→09:48)
[2020-04-13 05:45] LABS: Calcium 8.5 mg/dL (8.4-10.2)
[2020-04-13 05:49] LABS: Bilirubin,Direct 0.6 mg/dL (0-0.2)
[2020-04-13] MEDS ORDERED: AMIODARONE 150 MG in DEXTROSE 5% IN WATER 97 ML IV ONE (06:06)
[2020-04-13] MEDS ORDERED: AMIODARONE 900 MG in DEXTROSE 5% IN WATER 482 ML IV SCH (07:00)
--- NOTE | 2020-04-13 07:28 | Progress Note ---
Assessment and Plan Assessment and plan: 75-year-old male with known history of coronary artery disease, diabetes mellitus and CHF with ejection fraction of 15% on echo done in January 2020, Crohn's disease, anemia and osteoarthritis presenting to the emergency room today with shortness of breath and abdominal pain. Symptoms were said to have started today and patient was brought in by EMS. En route to the hospital EMS indicates that patient was in a nonsustained V. tach. Most of the history was given by the ER physician as patient is in some respiratory distress. He was placed on BiPAP upon arrival in the emergency room. Work-up in the emergency room- chest x-ray reveals: Patchy bibasilar airspace opacities, may reflect pulmonary edema or pneumonia. Stable small left pleural effusion and/or pleural scarring. CT abdomen showed d iffuse colitis, bilateral pleural effusions and possible acute appearing compression fracture of T12. Patient was then admitted to the hospital for acute hypoxic respiratory failure, acute on chronic systolic heart failure, colitis and KIRT. Patient started on IV antibiotics and cardiology consulted for ventricular tachycardia. 04/11. Patient seen and examined at bedside this morning. Patient is on BiPAP. Patient is eager to go home. Otherwise denies any chest pain or palpitations. Patient CT showed possible compression fracture of T12, it is unknown if this is new. We will get MRI without contrast of the thoracic and lumbar to further evaluate. If patient actually has an acute compression fracture, he will need to have a neurosurgery evaluation so will need to be transferred to another facility for this. Otherwise, patient continue to monitor patient's respiratory status while in the IMCU. Patient reportedly failed a swallow evaluation and will need to have an NG tube placement. Tried to call son on number provided in the chart and left a message. Awaiting callback. Labs reviewed-patient has elevated inflammatory [id number], LDH. COVID-19 test has been ordered. Started patient on steroids. Ordered stat BMP, ABG, D-dimer, proBNP, ferritin, LDH. 04/12. COVID -19 test is negative. His breathing has improved so was placed on nasal cannula. Cardiology adjusted meds today. He failed swallow evaluation yesterday. He requests for food. Will reattempt swallow evaluation. Speech therapy consult. Problems 1) Acute and chronic respiratory failure Current Visit: Yes Status: Acute Plan to address problem: Possibly secondary to the CHF exac and underlying pneumonia. Continue oxygen supplementation COVID-19 test negative Respiratory therapy assess and treat (2) Acute exacerbation of CHF (congestive heart failure) Current Visit: Yes Status: Acute Plan to address problem: Continue IV diuretics Will monitor daily weight, inputs and outputs. Monitor renal function closely Check proBNP Cardiology on board (3) KIRT (acute kidney injury) Current Visit: Yes Status: Acute Plan to address problem: Nephrology following (4) Colitis Current Visit: Yes Status: Acute Plan to address problem: GI evaluation Will send c.diff (5) Nonsustained ventricular tachycardia Current Visit: Yes Status: Acute Plan to address problem: Cardiology on board. On BB. Amiodarone discontinued (6) Diabetes mellitus type 2 in nonobese Current Visit: No Status: Acute Plan to address problem: Will monitor accucheks. (7) Hyperkalemia and metabolic acidosis Current Visit: Yes Status: Acute Plan to address problem: Resolved (8) T12 compression fracture Current Visit: No Status: Acute Plan to address problem: CT abdomen showed possible T12 compression fracture MRI thoracic without contrast ordered to further evaluate Awaiting MRI. If positive for fracture, patient will need to be transferred to their facility for neurosurgery evaluation. (8) DVT prophylaxis Current Visit: No Status: Acute Plan to address problem: Placed on anticoagulation with SQ heparin. (9) Full code status Current Visit: No Status: Acute Not requiring BIPAP - will transfer to telemetry unit Called patient's son and left a voice message. History Interval history: Patient seen and examined at bedside. On nasal cannula Lab tests reviewed Hospitalist Physical - Physical exam Narrative exam: VITAL SIGNS: Reviewed. GENERAL: Awake and alert and responds to questions HEAD: No signs of head trauma. EYES: Pupils are equal. Extraocular motions intact. EARS: Hearing grossly intact. MOUTH: Oropharynx is normal. NECK: No adenopathy, no JVD. CHEST: Chest with rales at the bases CARDIAC: Regular rate and rhythm. S1 and S2, without murmurs, gallops, or rubs. VASCULAR: No Edema. Peripheral pulses normal and equal in all extremities. ABDOMEN: Soft, non tender and non distended. No rebound or guarding, and no masses palpated. Bowel Sounds normal. MUSCULOSKELETAL: Good range of motion of all major joints. Extremities without clubbing, cyanosis or edema. NEUROLOGIC EXAM: Alert. No focal neurologic deficits PSYCHIATRIC: Stable mood SKIN: No obvious lesions - Constitutional Vitals: Temp Pulse Resp BP Pulse Ox 98.0 F 160 H 18 111/62 78 L 04/13/20 03:43 04/13/20 05:37 04/13/20 03:43 04/13/20 03:43 04/13/20 03:43 HEART Score - HEART Score Troponin: Troponin T 0.081 ng/mL (0.00-0.029) H 04/10/20 20:04 Results - Labs CBC & Chem 7: 04/13/20 05:06 04/13/20 05:06 Labs: Laboratory Last Values WBC 11.5 K/mm3 (4.5-11.0) H 04/12/20 06:22 RBC 3.61 M/mm3 (3.65-5.03) L 04/12/20 06:22 Hgb 8.4 gm/dl (11.8-15.2) L 04/13/20 05:06 Hct 26.6 % (35.5-45.6) L 04/13/20 05:06 MCV 77 fl (84-94) L 04/12/20 06:22 MCH 25 pg (28-32) L 04/12/20 06:22 MCHC 33 % (32-34) 04/12/20 06:22 RDW 20.8 % (13.2-15.2) H 04/12/20 06:22 Plt Count 183 K/mm3 (140-440) 04/13/20 05:06 Lymph % (Auto) 10.9 % (13.4-35.0) L 04/10/20 20:04 Wells % (Auto) 6.0 % (0.0-7.3) 04/10/20 20:04 Eos % (Auto) 0.6 % (0.0-4.3) 04/10/20 20:04 Baso % (Auto) 1.0 % (0.0-1.8) 04/10/20 20:04 Lymph # (Auto) 0.8 K/mm3 (1.2-5.4) L 04/10/20 20:04 Wells # (Auto) 0.4 K/mm3 (0.0-0.8) 04/10/20 20:04 Eos # (Auto) 0.0 K/mm3 (0.0-0.4) 04/10/20 20:04 Baso # (Auto) 0.1 K/mm3 (0.0-0.1) 04/10/20 20:04 Add Manual Diff Complete 04/12/20 06:22 Total Counted 100 04/12/20 06:22 Seg Neutrophils % Fibreglass Gun Hand 04/12/20 06:22 Seg Neuts % (Manual) 100.0 % (40.0-70.0) H 04/12/20 06:22 Band Neutrophils % 0 % 04/12/20 06:22 Lymphocytes % (Manual) 0 % (13.4-35.0) L 04/12/20 06:22 Reactive Lymphs % (Man) 0 % 04/12/20 06:22 Monocytes % (Manual) 0 % (0.0-7.3) 04/12/20 06:22 Eosinophils % (Manual) 0 % (0.0-4.3) 04/12/20 06:22 Basophils % (Manual) 0 % (0.0-1.8) 04/12/20 06:22 Metamyelocytes % 0 % 04/12/20 06:22 Myelocytes % 0 % 04/12/20 06:22 Promyelocytes % 0 % 04/12/20 06:22 Blast Cells % 0 % 04/12/20 06:22 Nucleated RBC % Not Reportable 04/12/20 06:22 Seg Neutrophils # 6.1 K/mm3 (1.8-7.7) 04/10/20 20:04 Seg Neutrophils # Man 11.5 K/mm3 (1.8-7.7) H 04/12/20 06:22 Band Neutrophils # 0.0 K/mm3 04/12/20 06:22 Lymphocytes # (Manual) 0.0 K/mm3 (1.2-5.4) L 04/12/20 06:22 Abs React Lymphs (Man) 0.0 K/mm3 04/12/20 06:22 Monocytes # (Manual) 0.0 K/mm3 (0.0-0.8) 04/12/20 06:22 Eosinophils # (Manual) 0.0 K/mm3 (0.0-0.4) 04/12/20 06:22 Basophils # (Manual) 0.0 K/mm3 (0.0-0.1) 04/12/20 06:22 Metamyelocytes # 0.0 K/mm3 04/12/20 06:22 Myelocytes # 0.0 K/mm3 04/12/20 06:22 Promyelocytes # 0.0 K/mm3 04/12/20 06:22 Blast Cells # 0.0 K/mm3 04/12/20 06:22 WBC Morphology Not Reportable 04/12/20 06:22 Hypersegmented Neuts Not Reportable 04/12/20 06:22 Hyposegmented Neuts Not Reportable 04/12/20 06:22 Hypogranular Neuts Not Reportable 04/12/20 06:22 Smudge Cells Not Reportable 04/12/20 06:22 Toxic Granulation Not Reportable 04/12/20 06:22 Toxic Vacuolation Not Reportable 04/12/20 06:22 Dohle Bodies Not Reportable 04/12/20 06:22 Pelger-Huet Anomaly Not Reportable 04/12/20 06:22 Barby Rods Not Reportable 04/12/20 06:22 Platelet Estimate Consistent w auto 04/12/20 06:22 Clumped Platelets Not Reportable 04/12/20 06:22 Plt Clumps, EDTA Not Reportable 04/12/20 06:22 Large Platelets Not Reportable 04/12/20 06:22 Giant Platelets Not Reportable 04/12/20 06:22 Platelet Satelliting Not Reportable 04/12/20 06:22 Plt Morphology Comment Not Reportable 04/12/20 06:22 RBC Morphology Not Reportable 04/12/20 06:22 Dimorphic RBCs Not Reportable 04/12/20 06:22 Polychromasia Not Reportable 04/12/20 06:22 Hypochromasia 1+ 04/12/20 06:22 Poikilocytosis Not Reportable 04/12/20 06:22 Anisocytosis 1+ 04/12/20 06:22 Microcytosis Not Reportable 04/12/20 06:22 Macrocytosis Not Reportable 04/12/20 06:22 Spherocytes Not Reportable 04/12/20 06:22 Pappenheimer Bodies Not Reportable 04/12/20 06:22 Sickle Cells Not Reportable 04/12/20 06:22 Target Cells Not Reportable 04/12/20 06:22 Tear Drop Cells Rare 04/12/20 06:22 Ovalocytes Few 04/12/20 06:22 Helmet Cells Not Reportable 04/12/20 06:22 Snell-[place] Bodies Not Reportable 04/12/20 06:22 [place] Rings Not Reportable 04/12/20 06:22 Marcia Cells Few 04/12/20 06:22 Bite Cells Not Reportable 04/12/20 06:22 Crenated Cell Not Reportable 04/12/20 06:22 Elliptocytes Not Reportable 04/12/20 06:22 Acanthocytes (Spur) Not Reportable 04/12/20 06:22 Rouleaux Not Reportable 04/12/20 06:22 Hemoglobin C Crystals Not Reportable 04/12/20 06:22 Schistocytes Rare 04/12/20 06:22 Malaria parasites Not Reportable 04/12/20 06:22 Willie Bodies Not Reportable 04/12/20 06:22 Hem Pathologist Commnt No 04/12/20 06:22 PT 15.5 Sec. (12.2-14.9) H 04/12/20 06:22 INR 1.21 (0.87-1.13) H 04/12/20 06:22 D-Dimer 2029.09 ng/mlDDU (0-234) H 04/11/20 15:11 Heparin Anti-Xa Level 0.35 U.I./ml (0.3-0.7) 04/13/20 05:06 ABG pH 7.425 pH Units (7.350-7.450) 04/11/20 16:25 ABG pCO2 31.8 mm Hg 04/11/20 16:25 ABG pO2 110.8 mm Hg (80.0-90.0) H 04/11/20 16:25 ABG HCO3 20.4 mmol/L (20.0-26.0) 04/11/20 16:25 ABG O2 Saturation 98.1 % (95.0-99.0) 04/11/20 16:25 ABG O2 Content 11.8 (0.0-44) 04/11/20 16:25 ABG Base Excess -3.4 mmol/L (-2.0-3.0) L 04/11/20 16:25 ABG Hemoglobin 8.6 gm/dl (14.0-18.0) L 04/11/20 16:25 ABG Carboxyhemoglobin 1.6 % (0.0-5.0) 04/11/20 16:25 ABG Methemoglobin 0.4 % (0.0-1.5) 04/11/20 16:25 Oxyhemoglobin 96.2 % (95.0-99.0) 04/11/20 16:25 FiO2 44 % 04/11/20 16:25 Sodium 135 mmol/L (137-145) L 04/13/20 05:06 Potassium 4.6 mmol/L (3.6-5.0) 04/13/20 05:06 Chloride 100.2 mmol/L (98-107) 04/13/20 05:06 Carbon Dioxide 17 mmol/L (22-30) L 04/13/20 05:06 Anion Gap 22 mmol/L 04/13/20 05:06 BUN 59 mg/dL (9-20) H 04/13/20 05:06 Creatinine 2.2 mg/dL (0.8-1.3) H 04/13/20 05:06 Estimated GFR 29 ml/min 04/13/20 05:06 BUN/Creatinine Ratio 27 % 04/13/20 05:06 Glucose 256 mg/dL (75-100) H 04/13/20 05:06 POC Glucose 240 mg/dL (70-105) H 04/13/20 05:47 Lactic Acid 3.00 mmol/L (0.7-2.0) H* 04/12/20 06:22 Calcium 8.5 mg/dL (8.4-10.2) 04/13/20 05:06 Phosphorus 5.60 mg/dL (2.5-4.5) H 04/10/20 22:50 Magnesium 2.40 mg/dL (1.7-2.3) H 04/10/20 22:50 Ferritin 135.1 ng/mL (30.0-300.0) 04/11/20 15:11 Total Bilirubin 0.80 mg/dL (0.1-1.2) 04/13/20 05:06 Direct Bilirubin 0.6 mg/dL (0-0.2) H 04/13/20 05:06 Indirect Bilirubin 0.2 mg/dL 04/13/20 05:06 AST 160 units/L (5-40) H 04/13/20 05:06 ALT 333 units/L (7-56) H 04/13/20 05:06 Alkaline Phosphatase 153 units/L (35-129) H 04/13/20 05:06 Lactate Dehydrogenase 664 units/L (91-180) H 04/10/20 20:51 Troponin T 0.081 ng/mL (0.00-0.029) H 04/10/20 20:04 C-Reactive Protein 5.60 mg/dL (0.00-1.30) H 04/10/20 20:51 NT-Pro-B Natriuret Pep > 30092 pg/mL (0-900) H 04/11/20 15:11 Total Protein 6.0 g/dL (6.3-8.2) L 04/13/20 05:06 Albumin 3.0 g/dL (3.9-5) L 04/13/20 05:06 Albumin/Globulin Ratio 1.0 % 04/13/20 05:06 Triglycerides 113 mg/dL (2-149) 04/10/20 20:04 Cholesterol 178 mg/dL (50-199) 04/10/20 20:04 LDL Cholesterol Direct 123 mg/dL (50-130) 04/10/20 20:04 HDL Cholesterol 41 mg/dL (40-59) 04/10/20 20:04 Cholesterol/HDL Ratio 4.34 % 04/10/20 20:04 Procalcitonin 2.47 ng/mL (<0.15) 04/11/20 15:11 Urine Color Yellow (Yellow) 04/11/20 Unknown Urine Turbidity Clear (Clear) 04/11/20 Unknown Urine pH 5.0 (5.0-7.0) 04/11/20 Unknown Ur Specific [place] 1.009 (1.003-1.030) 04/11/20 Unknown Urine Protein <15 mg/dl mg/dL (Negative) 04/11/20 Unknown Urine Glucose (UA) Neg mg/dL (Negative) 04/11/20 Unknown Urine Ketones Neg mg/dL (Negative) 04/11/20 Unknown Urine Blood Neg (Negative) 04/11/20 Unknown Urine Nitrite Neg (Negative) 04/11/20 Unknown Urine Bilirubin Neg (Negative) 04/11/20 Unknown Urine Urobilinogen < 2.0 mg/dL (<2.0) 04/11/20 Unknown Ur Leukocyte Esterase Neg (Negative) 04/11/20 Unknown Urine WBC (Auto) 1.0 /HPF (0.0-6.0) 04/11/20 Unknown Urine RBC (Auto) 2.0 /HPF (0.0-6.0) 04/11/20 Unknown U Epithel Cells (Auto) < 1.0 /HPF (0-13.0) 04/11/20 Unknown Hyaline Casts 3 /LPF 04/11/20 Unknown Urine Mucus Few /HPF 04/11/20 Unknown Urine Eosinophils None seen (None Seen) 04/11/20 Unknown Urine Creatinine 35.3 mg/dL (0.1-20.0) H 04/11/20 Unknown Urine Sodium 92 mmol/L 04/11/20 Unknown Coronavirus (PCR) Negative (Negative) 04/11/20 Unknown Hepatitis A IgM Ab Non-reactive (NonReactive) 04/12/20 20:23 Hep Bs Antigen Non-reactive (Negative) 04/12/20 20:23 Hep B Core IgM Ab Non-reactive (NonReactive) 04/12/20 20:23 Hepatitis C Antibody Non-reactive (NonReactive) 04/12/20 20:23 Microbiology: Microbiology 04/10/20 20:11 Peripheral/Venous Blood Culture - Preliminary NO GROWTH AFTER 48 HOURS 04/10/20 20:04 Peripheral/Venous Blood Culture - Preliminary NO GROWTH AFTER 48 HOURS Gay/IV: Voiding Method Condom Catheter IV Catheter Type [Left Wrist] Peripheral IV IV Catheter Type [Right INT / Saline Lock Forearm] IV Catheter Type [Right Wrist] INT / Saline Lock Active Medications - Current Medications Current Medications: Generic Name Dose Route Start Last Admin Trade Name Freq PRN Reason Stop Dose Admin Acetaminophen 650 mg 04/11/20 01:26 Tylenol PO Q6H PRN Pain MILD(1-3)/Fever >100.5/MANCILLA Albuterol/Ipratropium 1 ampul 04/11/20 02:00 04/13/20 02:48 Duoneb *Not For Prn Use* IH Not Given Q6HRT PRAVIN Lipase/Protease/Amylase 1 each 04/11/20 14:22 Pancreaze 10,500 Unit FEEDTUBE PRN PRN For Clogged Feeding Tube Carvedilol 6.25 mg 04/12/20 22:00 04/13/20 05:37 Coreg PO 6.25 mg BID PRAVIN Administration Furosemide 40 mg 04/11/20 06:00 04/13/20 06:14 Lasix IV Not Given BID@0600,1800 PRAVIN Heparin Sodium/Sodium Chloride 25,000 unit in 500 mls @ 20 mls/hr 04/11/20 21:00 04/13/20 06:50 Heparin/ 0.45% Nacl-25,000 Unit/500 Ml IV 1,200 units/hr TITR PRAVIN 24 mls/hr Titration Protocol 1,000 UNITS/HR Amiodarone HCl 900 mg/ 500 mls @ 33.333 mls/hr 04/13/20 07:00 04/13/20 07:10 Dextrose IV 1 mg/min DIRECT PRAVIN 33.333 mls/hr Administration Protocol 1 MG/MIN Insulin Human Lispro 0 unit 04/12/20 00:00 04/13/20 05:52 Humalog SUB-Q 3 unit Q6H PRAVIN Administration Protocol Magnesium Hydroxide 30 ml 04/11/20 01:26 Milk Of Magnesia PO Q4H PRN Constipation Methylprednisolone Sodium Succinate 40 mg 04/11/20 14:00 04/13/20 05:14 Solu-Medrol IV 40 mg Q8HR PRAVIN Administration Simple Syrup 15 ml 04/11/20 14:22 Simple Syrup FEEDTUBE PRN PRN Hypoglycemia Simple Syrup 30 ml 04/11/20 14:22 Simple Syrup FEEDTUBE PRN PRN Hypoglycemia Sodium Bicarbonate 325 mg 04/11/20 14:22 Sodium Bicarbonate FEEDTUBE PRN PRN For Clogged Feeding Tube Sodium Chloride 10 ml 04/11/20 10:00 04/12/20 22:04 Sodium Chloride Flush Syringe 10 Ml IV 10 ml BID PRAVIN Administration Sodium Chloride 10 ml 04/11/20 01:26 Sodium Chloride Flush Syringe 10 Ml IV PRN PRN LINE FLUSH Nutrition/Malnutrition Assess - Dietary Evaluation Nutrition/Malnutrition Findings: Nutrition Notes Start: 04/11/20 13:41 Freq: Status: Active Protocol: Document 04/11/20 13:41 AL (Rec: 04/11/20 14:22 AL [id number]) Co-Sign 04/11/20 13:41 MK Nutrition Notes Need for Assessment generated from: MD Order Initial or Follow up Assessment Current Diagnosis Acute Kidney Injury,COPD, Coronary Artery Disease, Diabetes,Hypertension,Heart Failure Other Pertinent Diagnosis VA, Crohn's disease, seizure, colitis Current Diet Cardiac Labs/Tests Na 133 K 6.1 BUN 26 Cr 1.7 Phos 5.6 Mag 2.4 Pertinent Medications Humalog Lasix Height 5 ft 7 in Weight 65.4 kg [place] Body Weight (kg) 67.27 BMI 22.6 Weight Status Underweight Subjective/Other Information MD consult for diet edu, skin risk assessment, ONS needs, write TF. Unable to interview patient d/t contact precautions. Rojas score = 15 . Per RN, patient failed swallow test. Will order TF. Burn Absent Trauma Absent Difficulty In Swallowing,Chewing Minimum of two criteria No #1 Nutrition Diagnosis Inadequate oral intake Etiology difficulties chewing and swallowing As Evidenced by Signs and Symptoms pt failed swallow test, pt requiring enteral nutrition support Is patient on ventilator? No Is Patient Ambulatory and/or Out of Bed No REE-([facility]-confined to bed) [phone] Calculation Used for Recommendations [facility] Additional Notes Protein Needs: 52-78 g (0.8-1. 2 g/kg) Fluid Needs: 1 mL/kcal Nutrition Intervention Change Diet Order: TF start Nutrition Support: Nepro 1.8 at 35 mL/hr. Flush 150 mL q4h Kcal 1,512 Protein (gm) 68 Fluid (mL) 611 Fiber (gm) 12 Goal #1 TF start Goal #2 Meet at least 75% of estimated energy and protein needs via TF Anticipated Discharge Needs: Unable to determine at this time Follow-Up By: 04/13/20 Additional Comments F/U for TF start/tolerance and labs
--- NOTE | 2020-04-13 08:21 | XRay Report ---
CHEST 1 VIEW INDICATION / CLINICAL INFORMATION: Reevaluate pulmonary edema. COMPARISON: 04/12/2020 FINDINGS: SUPPORT DEVICES: Feeding tube HEART / MEDIASTINUM: No significant abnormality. LUNGS / PLEURA: Bibasilar airspace disease No pneumothorax. ADDITIONAL FINDINGS: No significant additional findings. IMPRESSION: Left basilar airspace disease unchanged from yesterday Signer Name: Yanick Spencer MD FACR Signed: 04/13/2020 8:17 AM Workstation Name: [id number]
--- NOTE | 2020-04-13 08:44 | Progress Note ---
Subjective Date of service: 04/13/20 Objective - Vital Signs Vital signs: Vital Signs - 12hr 04/12/20 04/13/20 04/13/20 23:44 00:13 03:22 Temperature 98.0 F Pulse Rate 49 L 101 H 151 H Respiratory 18 19 Rate Blood Pressure 117/70 O2 Sat by Pulse 73 L 100 Oximetry 04/13/20 04/13/20 03:43 05:37 Temperature 98.0 F Pulse Rate 67 160 H Respiratory 18 Rate Blood Pressure 111/62 O2 Sat by Pulse 78 L Oximetry - Lab 04/13/20 05:06 04/13/20 05:06 Most recent lab results ABG pH 7.425 pH Units (7.350-7.450) 04/11/20 16:25 ABG pCO2 31.8 mm Hg 04/11/20 16:25 ABG pO2 110.8 mm Hg (80.0-90.0) H 04/11/20 16:25 ABG HCO3 20.4 mmol/L (20.0-26.0) 04/11/20 16:25 ABG O2 Saturation 98.1 % (95.0-99.0) 04/11/20 16:25 Calcium 8.5 mg/dL (8.4-10.2) 04/13/20 05:06 Phosphorus 5.60 mg/dL (2.5-4.5) H 04/10/20 22:50 Magnesium 2.40 mg/dL (1.7-2.3) H 04/10/20 22:50 Urine Creatinine 35.3 mg/dL (0.1-20.0) H 04/11/20 Unknown Urine Sodium 92 mmol/L 04/11/20 Unknown Medications & Allergies - Medications Allergies/Adverse Reactions: Allergies Sulfa (Sulfonamide Antibiotics) Allergy (Verified 07/30/18 17:44) Rash Home Medications: Home Medications Medication Instructions Recorded Confirmed Last Taken Type Gabapentin 300 mg PO BID 09/19/16 01/29/20 09/18/16 History 300 mg Metformin HCl [metFORMIN ER 500 mg PO BIDWM 03/28/17 01/29/20 Unknown History Gastric] AtorvaSTATin 10 mg PO QHS #30 tablet 12/21/17 01/29/20 Unknown Rx Ranolazine ER [Ranexa ER] 500 mg PO BID #60 tablet 12/21/17 01/29/20 Unknown Rx Aspirin 325 mg PO QDAY #30 tablet 01/12/18 01/29/20 Unknown Rx Diphenoxylate/Atropine [Lomotil] 1 tab PO Q8H PRN 01/15/18 01/29/20 Unknown History Insulin Lispro [HumaLOG VIAL] See Protocol SQ ACHS 01/15/18 01/29/20 Unknown History Promethazine [Phenergan] 25 mg PO Q4H PRN 01/15/18 01/29/20 Unknown History Albuterol Mdi (or & Nicu Only) 2 puff IH Q4HR PRN #1 inhalation 12/21/18 01/29/20 Unknown Rx [ProAir HFA Inhaler] Furosemide [Lasix TAB] 20 mg PO QDAY #30 tablet 02/03/20 Unknown Rx Metoprolol Xl [Metoprolol 25 mg PO DAILY #60 tablet 02/03/20 Unknown Rx SUCCINATE ER TAB] levETIRAcetam [Keppra TAB] 500 mg PO BID #120 tablet 02/03/20 Unknown Rx levoFLOXacin [Levaquin TAB] 500 mg PO QDAY #5 tablet 02/03/20 Unknown Rx Active Medications: Generic Name Dose Route Start Last Admin Trade Name Freq PRN Reason Stop Dose Admin Acetaminophen 650 mg 04/11/20 01:26 Tylenol PO Q6H PRN Pain MILD(1-3)/Fever >100.5/MANCILLA Albuterol/Ipratropium 1 ampul 04/11/20 02:00 04/13/20 02:48 Duoneb *Not For Prn Use* IH Not Given Q6HRT PRAVIN Lipase/Protease/Amylase 1 each 04/11/20 14:[address] 10,500 Unit FEEDTUBE PRN PRN For Clogged Feeding Tube Carvedilol 6.25 mg 04/12/20 22:00 04/13/20 05:37 Coreg PO 6.25 mg BID PRAVIN Administration Furosemide 40 mg 04/13/20 10:00 Lasix IV DAILY PRAVIN Heparin Sodium (Porcine) 5,000 unit 04/13/20 14:00 Heparin SUB-Q Q8HR PRAVIN Amiodarone HCl 900 mg/ 500 mls @ 33.333 mls/hr 04/13/20 07:00 04/13/20 07:10 Dextrose IV 1 mg/min DIRECT PRAVIN 33.333 mls/hr Administration Protocol 1 MG/MIN Insulin Human Lispro 0 unit 04/12/20 00:00 04/13/20 05:52 Humalog SUB-Q 3 unit Q6H PRAVIN Administration Protocol Magnesium Hydroxide 30 ml 04/11/20 01:26 Milk Of Magnesia PO Q4H PRN Constipation Methylprednisolone Sodium Succinate 40 mg 04/13/20 10:00 Solu-Medrol IV Q12HR PRAVIN Simple Syrup 15 ml 04/11/20 14:22 Simple Syrup FEEDTUBE PRN PRN Hypoglycemia Simple Syrup 30 ml 04/11/20 14:22 Simple Syrup FEEDTUBE PRN PRN Hypoglycemia Sodium Bicarbonate 325 mg 04/11/20 14:22 Sodium Bicarbonate FEEDTUBE PRN PRN For Clogged Feeding Tube Sodium Chloride 10 ml 04/11/20 10:00 04/12/20 22:04 Sodium Chloride Flush Syringe 10 Ml IV 10 ml BID PRAVIN Administration Sodium Chloride 10 ml 04/11/20 01:26 Sodium Chloride Flush Syringe 10 Ml IV PRN PRN LINE FLUSH
--- NOTE | 2020-04-13 09:17 | Progress Note ---
Assessment and Plan Chronic systolic heart failure LVEF 15-20% by echo 01/2020 VQ scan reports a low probability for PE. COVID 19 test was negative Paroxysmal Atrial fibrillation vs flutter currently in sinus rhythm on for suppression Hx of Ischemic cardiomyopathy noncompliant with outpatient cardiac follow up. Hx of CAD Abdominal pain CT scan of the abdomen suggestive of colitis. Elevated liver transaminases Renal insufficiency with hyperkalemia Due to elevated liver transaminases, will discontinue IV amiodarone. Check a TSH. Will discontinue Carvedilol and replace with Metoprolol for suppression of paroxysmal atrial fibrillation. Medical therapy for systolic heart failure and coronary artery disease as tolerated. Subjective Date of service: 04/13/20 Interval history: Patient is alert with some confusion and has wrist restraints in place. Patient was started on IV amiodarone overnight for recurrent atrial fibrillation. He has since reverted to sinus rhythm. Objective Vital Signs Temp Pulse Pulse Pulse Resp Resp BP 04/13/20 05:37 160 H 04/13/20 03:43 98.0 F 67 18 111/62 04/13/20 03:22 151 H 04/13/20 00:13 101 H 19 04/12/20 23:44 98.0 F 49 L 18 117/70 04/12/20 20:37 98.0 F 87 20 116/70 04/12/20 20:12 86 20 04/12/20 17:00 91 H 20 120/54 04/12/20 16:50 95 H 25 H 120/54 04/12/20 16:40 100 H 26 H 120/54 04/12/20 16:30 93 H 27 H 121/62 04/12/20 16:20 94 H 18 121/62 04/12/20 16:10 92 H 19 121/62 04/12/20 16:00 92 H 91 H 24 121/62 04/12/20 15:50 89 15 120/54 04/12/20 15:40 93 H 23 120/54 04/12/20 15:30 97 H 29 H 120/54 04/12/20 15:20 99 H 23 120/54 04/12/20 15:10 88 15 120/54 04/12/20 15:00 94 H 24 120/54 04/12/20 14:50 93 H 21 115/62 04/12/20 14:40 92 H 18 115/62 04/12/20 14:30 88 84 16 20 115/62 04/12/20 14:20 92 H 18 115/62 04/12/20 14:10 89 21 115/62 04/12/20 14:00 96 H 24 115/62 04/12/20 13:50 92 H 19 126/69 04/12/20 13:40 93 H 20 126/69 04/12/20 13:30 99 H 31 H 126/69 04/12/20 13:20 91 H 20 126/69 04/12/20 13:10 92 H 27 H 126/69 04/12/20 13:00 97 H 20 128/68 04/12/20 12:50 96 H 19 128/68 04/12/20 12:40 89 21 128/68 04/12/20 12:30 90 19 128/68 04/12/20 12:20 89 24 128/68 04/12/20 12:10 90 19 128/68 04/12/20 12:00 88 98 H 21 128/68 04/12/20 11:50 90 15 116/62 04/12/20 11:40 91 H 26 H 116/62 04/12/20 11:30 98 H 22 116/62 04/12/20 11:20 92 H 26 H 116/62 04/12/20 11:10 87 16 116/62 04/12/20 11:00 91 H 19 116/62 04/12/20 10:50 96 H 22 125/67 04/12/20 10:40 97 H 29 H 125/67 04/12/20 10:30 96 H 18 125/67 04/12/20 10:20 95 H 19 125/67 04/12/20 10:10 94 H 23 125/67 04/12/20 10:00 95 H 28 H 125/67 04/12/20 09:50 94 H 22 131/61 04/12/20 09:40 98 H 17 126/99 04/12/20 09:30 102 H 21 126/99 04/12/20 09:20 111 H 40 H 126/99 Pulse Ox 04/13/20 05:37 04/13/20 03:43 78 L 04/13/20 03:22 04/13/20 00:13 100 04/12/20 23:44 73 L 04/12/20 20:37 100 04/12/20 20:12 95 04/12/20 17:00 82 L 04/12/20 16:50 91 04/12/20 16:40 87 04/12/20 16:30 04/12/20 16:20 04/12/20 16:10 04/12/20 16:00 95 04/12/20 15:50 100 04/12/20 15:40 100 04/12/20 15:30 100 04/12/20 15:20 100 04/12/20 15:10 100 04/12/20 15:00 100 04/12/20 14:50 100 04/12/20 14:40 100 04/12/20 14:30 100 04/12/20 14:20 100 04/12/20 14:10 100 04/12/20 14:00 100 04/12/20 13:50 100 04/12/20 13:40 100 04/12/20 13:30 90 04/12/20 13:20 100 04/12/20 13:10 04/12/20 13:00 95 04/12/20 12:50 97 04/12/20 12:40 91 04/12/20 12:30 100 04/12/20 12:20 100 04/12/20 12:10 100 04/12/20 12:00 100 04/12/20 11:50 100 04/12/20 11:40 82 L 04/12/20 11:30 100 04/12/20 11:20 95 04/12/20 11:10 100 04/12/20 11:00 94 04/12/20 10:50 100 04/12/20 10:40 86 04/12/20 10:30 100 04/12/20 10:20 100 04/12/20 10:10 04/12/20 10:00 100 04/12/20 09:50 100 04/12/20 09:40 98 04/12/20 09:30 89 04/12/20 09:20 - Physical Examination General: No Apparent Distress HEENT: Positive: PERRL Neck: Positive: trachea midline Cardiac: Positive: Reg Rate and Rhythm - Labs and Meds Cardiac Enzymes 04/13/20 Range/Units 05:06 AST 160 H (5-40) units/L CBC 04/13/20 Range/Units 05:06 Hgb 8.4 L (11.8-15.2) gm/dl Hct 26.6 L (35.5-45.6) % Plt Count 183 (140-440) K/mm3 Comprehensive Metabolic Panel 04/12/20 04/13/20 04/13/20 Range/Units 20:23 05:06 05:06 Sodium 135 L 135 L (137-145) mmol/L Potassium 5.4 H 4.6 (3.6-5.0) mmol/L Chloride 98.5 100.2 (98-107) mmol/L Carbon Dioxide 22 17 L (22-30) mmol/L BUN 53 H 59 H (9-20) mg/dL Creatinine 2.3 H 2.2 H (0.8-1.3) mg/dL Glucose 190 H 256 H (75-100) mg/dL Calcium 8.5 8.5 (8.4-10.2) mg/dL Direct Bilirubin 0.6 H (0-0.2) mg/dL Indirect Bilirubin 0.2 mg/dL AST 160 H (5-40) units/L ALT 333 H (7-56) units/L Alkaline Phosphatase 153 H (35-129) units/L Total Protein 6.0 L (6.3-8.2) g/dL Albumin 3.0 L (3.9-5) g/dL
[2020-04-13] MEDS ORDERED: FUROSEMIDE 40 MG/4 ML INJ IV SCH (10:00)
--- NOTE | 2020-04-13 10:01 | Progress Note ---
Assessment and Plan 1. Acute kidney injury: Vasomotor KIRT superimposed on CKD. CT abdomen negative for hydro. Monitor renal function. Creatinine level is about the same as yesterday. Renal prognosis is guarded. Avoid nephrotoxic agents. Meds dosage based on GFR. 2. FEN: Hyperkalemia, improved, monitor. Anion-gap metabolic acidosis, 2/2 KIRT / CKD, monitor. Sod bicarbonate as needed. Monitor lytes and volume status. 3. Acute hypoxic respiratory failure: Was on BIPAP. Possibly secondary to the CHF exac and underlying pneumonia. COVID-19 test negative. 4. Acute exacerbation of CHF: Monitor daily weight, inputs and outputs. Diuretics on hold for now. 5. Colitis: Monitor. Seen by GI. 6. Anemia, POA: Monitor. 7. Elevated Transaminases: Monitor. 8. DM type 2. 9. HTN: Monitor BP. Subjective: Patient was seen and examined at the bedside. Doing ok. Examination: General appearance: well-developed, appears stated age, on restrains, NG tube HEENT: ATNC, pupils equal Neck: trachea midline Respiratory: coarse breath sounds Heart: regular, S1S2, no murmur Gastrointestinal: soft, normoactive bowel sounds, not tender Integumentary: no rash, warm and dry Neurologic: alert, follows command, moving extremities Ext: no edema Subjective Date of service: 04/13/20 Objective - Vital Signs Vital signs: Vital Signs - 12hr 04/12/20 04/13/20 04/13/20 23:44 00:13 03:22 Temperature 98.0 F Pulse Rate 49 L 101 H 151 H Respiratory 18 19 Rate Blood Pressure 117/70 O2 Sat by Pulse 73 L 100 Oximetry 04/13/20 04/13/20 04/13/20 03:43 05:37 09:48 Temperature 98.0 F Pulse Rate 67 160 H 61 Respiratory 18 Rate Blood Pressure 111/62 84/54 O2 Sat by Pulse 78 L Oximetry - Lab 04/13/20 05:06 04/13/20 05:06 Most recent lab results ABG pH 7.425 pH Units (7.350-7.450) 04/11/20 16:25 ABG pCO2 31.8 mm Hg 04/11/20 16:25 ABG pO2 110.8 mm Hg (80.0-90.0) H 04/11/20 16:25 ABG HCO3 20.4 mmol/L (20.0-26.0) 04/11/20 16:25 ABG O2 Saturation 98.1 % (95.0-99.0) 04/11/20 16:25 Calcium 8.5 mg/dL (8.4-10.2) 04/13/20 05:06 Phosphorus 5.60 mg/dL (2.5-4.5) H 04/10/20 22:50 Magnesium 2.40 mg/dL (1.7-2.3) H 04/10/20 22:50 Urine Creatinine 35.3 mg/dL (0.1-20.0) H 04/11/20 Unknown Urine Sodium 92 mmol/L 04/11/20 Unknown Medications & Allergies - Medications Allergies/Adverse Reactions: Allergies Sulfa (Sulfonamide Antibiotics) Allergy (Verified 07/30/18 17:44) Rash Home Medications: Home Medications Medication Instructions Recorded Confirmed Last Taken Type Gabapentin 300 mg PO BID 09/19/16 01/29/20 09/18/16 History 300 mg Metformin HCl [metFORMIN ER 500 mg PO BIDWM 03/28/17 01/29/20 Unknown History Gastric] AtorvaSTATin 10 mg PO QHS #30 tablet 12/21/17 01/29/20 Unknown Rx Ranolazine ER [Ranexa ER] 500 mg PO BID #60 tablet 12/21/17 01/29/20 Unknown Rx Aspirin 325 mg PO QDAY #30 tablet 01/12/18 01/29/20 Unknown Rx Diphenoxylate/Atropine [Lomotil] 1 tab PO Q8H PRN 01/15/18 01/29/20 Unknown History Insulin Lispro [HumaLOG VIAL] See Protocol SQ ACHS 01/15/18 01/29/20 Unknown History Promethazine [Phenergan] 25 mg PO Q4H PRN 01/15/18 01/29/20 Unknown History Albuterol Mdi (or & Nicu Only) 2 puff IH Q4HR PRN #1 inhalation 12/21/18 Unknown Rx [ProAir HFA Inhaler] Furosemide [Lasix TAB] 20 mg PO QDAY #30 tablet 02/03/20 Unknown Rx Metoprolol Xl [Metoprolol 25 mg PO DAILY #60 tablet 02/03/20 Unknown Rx SUCCINATE ER TAB] levETIRAcetam [Keppra TAB] 500 mg PO BID #120 tablet 02/03/20 Unknown Rx levoFLOXacin [Levaquin TAB] 500 mg PO QDAY #5 tablet 02/03/20 Unknown Rx Active Medications: Generic Name Dose Route Start Last Admin Trade Name Freq PRN Reason Stop Dose Admin Acetaminophen 650 mg 04/11/20 01:26 Tylenol PO Q6H PRN Pain MILD(1-3)/Fever >100.5/MANCILLA Albuterol/Ipratropium 1 ampul 04/11/20 02:00 04/13/20 09:20 Duoneb *Not For Prn Use* IH 1 ampul Q6HRT PRAVIN Administration Lipase/Protease/Amylase 1 each 04/11/20 14:22 Pancreazaddison Saenz 10,500 Unit FEEDTUBE PRN PRN For Clogged Feeding Tube Carvedilol 6.25 mg 04/12/20 22:00 04/13/20 09:48 Coreg PO Not Given BID PRAVIN Furosemide 40 mg 04/13/20 10:00 04/13/20 09:49 Lasix IV Not Given DAILY [facility] Heparin Sodium (Porcine) 5,000 unit 04/13/20 14:00 Heparin SUB-Q Q8HR [facility] Insulin Human Lispro 0 unit 04/12/20 00:00 04/13/20 05:52 Humalog SUB-Q 3 unit Q6H PRAVIN Administration Protocol Magnesium Hydroxide 30 ml 04/11/20 01:26 Milk Of Magnesia PO Q4H PRN Constipation Methylprednisolone Sodium Succinate 40 mg 04/13/20 10:00 04/13/20 09:49 Solu-Medrol IV 40 mg Q12HR PRAVIN Administration Simple Syrup 15 ml 04/11/20 14:22 Simple Syrup FEEDTUBE PRN PRN Hypoglycemia Simple Syrup 30 ml 04/11/20 14:22 Simple Syrup FEEDTUBE PRN PRN Hypoglycemia Sodium Bicarbonate 325 mg 04/11/20 14:22 Sodium Bicarbonate FEEDTUBE PRN PRN For Clogged Feeding Tube Sodium Chloride 10 ml 04/11/20 10:00 04/13/20 09:49 Sodium Chloride Flush Syringe 10 Ml IV 10 ml BID PRAVIN Administration Sodium Chloride 10 ml 04/11/20 01:26 Sodium Chloride Flush Syringe 10 Ml IV PRN PRN LINE FLUSH
--- NOTE | 2020-04-13 13:23 | Progress Note ---
Assessment and Plan Assessment and plan: 75-year-old male with known history of coronary artery disease, diabetes mellitus and CHF with ejection fraction of 15% on echo done in January 2020, Crohn's disease, anemia and osteoarthritis presenting to the emergency room today with shortness of breath and abdominal pain. Symptoms were said to have started today and patient was brought in by EMS. En route to the hospital EMS indicates that patient was in a nonsustained V. tach. Most of the history was given by the ER physician as patient is in some respiratory distress. He was placed on BiPAP upon arrival in the emergency room. Work-up in the emergency room- chest x-ray reveals: Patchy bibasilar airspace opacities, may reflect pulmonary edema or pneumonia. Stable small left pleural effusion and/or pleural scarring. CT abdomen showed d iffuse colitis, bilateral pleural effusions and possible acute appearing compression fracture of T12. Patient was then admitted to the hospital for acute hypoxic respiratory failure, acute on chronic systolic heart failure, colitis and KIRT. Patient started on IV antibiotics and cardiology consulted for ventricular tachycardia. 04/11. Patient seen and examined at bedside this morning. Patient is on BiPAP. Patient is eager to go home. Otherwise denies any chest pain or palpitations. Patient CT showed possible compression fracture of T12, it is unknown if this is new. We will get MRI without contrast of the thoracic and lumbar to further evaluate. If patient actually has an acute compression fracture, he will need to have a neurosurgery evaluation so will need to be transferred to another facility for this. Otherwise, patient continue to monitor patient's respiratory status while in the IMCU. Patient reportedly failed a swallow evaluation and will need to have an NG tube placement. Tried to call son on number provided in the chart and left a message. Awaiting callback. Labs reviewed-patient has elevated inflammatory [id number], LDH. COVID-19 test has been ordered. Started patient on steroids. Ordered stat BMP, ABG, D-dimer, proBNP, ferritin, LDH. 04/12. COVID -19 test is negative. His breathing has improved so was placed on nasal cannula. Cardiology adjusted meds today. He failed swallow evaluation yesterday. He requests for food. Will reattempt swallow evaluation. Speech therapy consult. 04/13. Overnight, he developed VT and was started on amiodarone. HR better this AM. Cardiology will review medications. Patient seen and examined at bedside this AM. He requests for food. He failed a repeat speech evaluation and will need barium swallow. May need PEG placement if he fails. NG tube in place. Vitals reviewed Problems 1) Acute respiratory failure Current Visit: Yes Status: Acute Plan to address problem: From CHF Has no pneumonia and no sepsis - procalcitonin Continue oxygen supplementation COVID-19 test negative Respiratory therapy assess and treat (2) Acute on chronic systolic CHF (congestive heart failure) Current Visit: Yes Status: Acute Plan to address problem: Continue IV diuretics - Cut down to lasix 40. Plan to switch to PO in 24-48 hrs Will monitor daily weight, inputs and outputs. Monitor renal function closely Repeat BNP Cardiology on board (3) KIRT (acute kidney injury) Current Visit: Yes Status: Acute Plan to address problem: Vasomotor nephropathy Nephrology following (4) Colitis Current Visit: Yes Status: Acute Plan to address problem: GI evaluation Will send c.diff if he has diarrhea (5) Nonsustained ventricular tachycardia Current Visit: Yes Status: Acute Plan to address problem: Cardiology on board. Amiodarone discontinued as he has elevated LFTs (6) Diabetes mellitus type 2 in nonobese Current Visit: No Status: Acute Plan to address problem: Will monitor accucheks. (7) Hyperkalemia and metabolic acidosis Current Visit: Yes Status: Acute Plan to address problem: Resolved (8) T12 compression fracture Current Visit: No Status: Acute Plan to address problem: CT abdomen showed possible T12 compression fracture MRI thoracic without contrast ordered to further evaluate Awaiting MRI. If positive for fracture, patient will need to be transferred to their facility for neurosurgery evaluation. (9) Elevated LFTs Current Visit: Yes Status: Acute Plan to address problem: Improving US abdomen Trend LFTs (19) DVT prophylaxis Current Visit: No Status: Acute Plan to address problem: Placed on anticoagulation with SQ heparin. (11) Full code status Current Visit: No Status: Acute Not requiring BIPAP - will transfer to telemetry unit Called patient's son and left a voice message. History Interval history: Patient seen and examined at bedside. His breathing has improved Has runs of VT overnight. He was started on amiodarone again Lab tests reviewed Hospitalist Physical - Physical exam Narrative exam: VITAL SIGNS: Reviewed. GENERAL: Awake and alert and responds to questions HEAD: No signs of head trauma. EYES: Pupils are equal. Extraocular motions intact. EARS: Hearing grossly intact. MOUTH: Oropharynx is normal. NECK: No adenopathy, no JVD. CHEST: Chest with rales at the bases CARDIAC: Regular rate and rhythm. S1 and S2, without murmurs, gallops, or rubs. VASCULAR: No Edema. Peripheral pulses normal and equal in all extremities. ABDOMEN: Soft, non tender and non distended. No rebound or guarding, and no masses palpated. Bowel Sounds normal. MUSCULOSKELETAL: Good range of motion of all major joints. Extremities without clubbing, cyanosis or edema. NEUROLOGIC EXAM: Alert. No focal neurologic deficits PSYCHIATRIC: Stable mood SKIN: No obvious lesions - Constitutional Vitals: Temp Pulse Resp BP Pulse Ox 98.0 F 61 18 84/54 78 L 04/13/20 03:43 04/13/20 09:48 04/13/20 03:43 04/13/20 09:48 04/13/20 03:43 HEART Score - HEART Score Troponin: Troponin T 0.081 ng/mL (0.00-0.029) H 04/10/20 20:04 Results - Labs CBC & Chem 7: 04/13/20 05:06 04/13/20 05:06 Labs: Laboratory Last Values WBC 11.5 K/mm3 (4.5-11.0) H 04/12/20 06:22 RBC 3.61 M/mm3 (3.65-5.03) L 04/12/20 06:22 Hgb 8.4 gm/dl (11.8-15.2) L 04/13/20 05:06 Hct 26.6 % (35.5-45.6) L 04/13/20 05:06 MCV 77 fl (84-94) L 04/12/20 06:22 MCH 25 pg (28-32) L 04/12/20 06:22 MCHC 33 % (32-34) 04/12/20 06:22 RDW 20.8 % (13.2-15.2) H 04/12/20 06:22 Plt Count 183 K/mm3 (140-440) 04/13/20 05:06 Lymph % (Auto) 10.9 % (13.4-35.0) L 04/10/20 20:04 [place] % (Auto) 6.0 % (0.0-7.3) 04/10/20 20:04 Eos % (Auto) 0.6 % (0.0-4.3) 04/10/20 20:04 Baso % (Auto) 1.0 % (0.0-1.8) 04/10/20 20:04 Lymph # (Auto) 0.8 K/mm3 (1.2-5.4) L 04/10/20 20:04 [place] # (Auto) 0.4 K/mm3 (0.0-0.8) 04/10/20 20:04 Eos # (Auto) 0.0 K/mm3 (0.0-0.4) 04/10/20 20:04 Baso # (Auto) 0.1 K/mm3 (0.0-0.1) 04/10/20 20:04 Add Manual Diff Complete 04/12/20 06:22 Total Counted 100 04/12/20 06:22 Seg Neutrophils % Medical Technologist Blood Bank 04/12/20 06:22 Seg Neuts % (Manual) 100.0 % (40.0-70.0) H 04/12/20 06:22 Band Neutrophils % 0 % 04/12/20 06:22 Lymphocytes % (Manual) 0 % (13.4-35.0) L 04/12/20 06:22 Reactive Lymphs % (Man) 0 % 04/12/20 06:22 Monocytes % (Manual) 0 % (0.0-7.3) 04/12/20 06:22 Eosinophils % (Manual) 0 % (0.0-4.3) 04/12/20 06:22 Basophils % (Manual) 0 % (0.0-1.8) 04/12/20 06:22 Metamyelocytes % 0 % 04/12/20 06:22 Myelocytes % 0 % 04/12/20 06:22 Promyelocytes % 0 % 04/12/20 06:22 Blast Cells % 0 % 04/12/20 06:22 Nucleated RBC % Not Reportable 04/12/20 06:22 Seg Neutrophils # 6.1 K/mm3 (1.8-7.7) 04/10/20 20:04 Seg Neutrophils # Man 11.5 K/mm3 (1.8-7.7) H 04/12/20 06:22 Band Neutrophils # 0.0 K/mm3 04/12/20 06:22 Lymphocytes # (Manual) 0.0 K/mm3 (1.2-5.4) L 04/12/20 06:22 Abs React Lymphs (Man) 0.0 K/mm3 04/12/20 06:22 Monocytes # (Manual) 0.0 K/mm3 (0.0-0.8) 04/12/20 06:22 Eosinophils # (Manual) 0.0 K/mm3 (0.0-0.4) 04/12/20 06:22 Basophils # (Manual) 0.0 K/mm3 (0.0-0.1) 04/12/20 06:22 Metamyelocytes # 0.0 K/mm3 04/12/20 06:22 Myelocytes # 0.0 K/mm3 04/12/20 06:22 Promyelocytes # 0.0 K/mm3 04/12/20 06:22 Blast Cells # 0.0 K/mm3 04/12/20 06:22 WBC Morphology Not Reportable 04/12/20 06:22 Hypersegmented Neuts Not Reportable 04/12/20 06:22 Hyposegmented Neuts Not Reportable 04/12/20 06:22 Hypogranular Neuts Not Reportable 04/12/20 06:22 Smudge Cells Not Reportable 04/12/20 06:22 Toxic Granulation Not Reportable 04/12/20 06:22 Toxic Vacuolation Not Reportable 04/12/20 06:22 Dohle Bodies Not Reportable 04/12/20 06:22 Pelger-Huet Anomaly Not Reportable 04/12/20 06:22 Barby Rods Not Reportable 04/12/20 06:22 Platelet Estimate Consistent w auto 04/12/20 06:22 Clumped Platelets Not Reportable 04/12/20 06:22 Plt Clumps, EDTA Not Reportable 04/12/20 06:22 Large Platelets Not Reportable 04/12/20 06:22 Giant Platelets Not Reportable 04/12/20 06:22 Platelet Satelliting Not Reportable 04/12/20 06:22 Plt Morphology Comment Not Reportable 04/12/20 06:22 RBC Morphology Not Reportable 04/12/20 06:22 Dimorphic RBCs Not Reportable 04/12/20 06:22 Polychromasia Not Reportable 04/12/20 06:22 Hypochromasia 1+ 04/12/20 06:22 Poikilocytosis Not Reportable 04/12/20 06:22 Anisocytosis 1+ 04/12/20 06:22 Microcytosis Not Reportable 04/12/20 06:22 Macrocytosis Not Reportable 04/12/20 06:22 Spherocytes Not Reportable 04/12/20 06:22 Pappenheimer Bodies Not Reportable 04/12/20 06:22 Sickle Cells Not Reportable 04/12/20 06:22 Target Cells Not Reportable 04/12/20 06:22 Tear Drop Cells Rare 04/12/20 06:22 Ovalocytes Few 04/12/20 06:22 Helmet Cells Not Reportable 04/12/20 06:22 [place] Bodies Not Reportable 04/12/20 06:22 [place] Rings Not Reportable 04/12/20 06:22 Marcia Cells Few 04/12/20 06:22 Bite Cells Not Reportable 04/12/20 06:22 Crenated Cell Not Reportable 04/12/20 06:22 Elliptocytes Not Reportable 04/12/20 06:22 Acanthocytes (Spur) Not Reportable 04/12/20 06:22 Rouleaux Not Reportable 04/12/20 06:22 Hemoglobin C Crystals Not Reportable 04/12/20 06:22 Schistocytes Rare 04/12/20 06:22 Malaria parasites Not Reportable 04/12/20 06:22 Willie Bodies Not Reportable 04/12/20 06:22 Hem Pathologist Commnt No 04/12/20 06:22 PT 15.5 Sec. (12.2-14.9) H 04/12/20 06:22 INR 1.21 (0.87-1.13) H 04/12/20 06:22 D-Dimer 2029.09 ng/mlDDU (0-234) H 04/11/20 15:11 Heparin Anti-Xa Level 0.35 U.I./ml (0.3-0.7) 04/13/20 05:06 ABG pH 7.425 pH Units (7.350-7.450) 04/11/20 16:25 ABG pCO2 31.8 mm Hg 04/11/20 16:25 ABG pO2 110.8 mm Hg (80.0-90.0) H 04/11/20 16:25 ABG HCO3 20.4 mmol/L (20.0-26.0) 04/11/20 16:25 ABG O2 Saturation 98.1 % (95.0-99.0) 04/11/20 16:25 ABG O2 Content 11.8 (0.0-44) 04/11/20 16:25 ABG Base Excess -3.4 mmol/L (-2.0-3.0) L 04/11/20 16:25 ABG Hemoglobin 8.6 gm/dl (14.0-18.0) L 04/11/20 16:25 ABG Carboxyhemoglobin 1.6 % (0.0-5.0) 04/11/20 16:25 ABG Methemoglobin 0.4 % (0.0-1.5) 04/11/20 16:25 Oxyhemoglobin 96.2 % (95.0-99.0) 04/11/20 16:25 FiO2 44 % 04/11/20 16:25 Sodium 135 mmol/L (137-145) L 04/13/20 05:06 Potassium 4.6 mmol/L (3.6-5.0) 04/13/20 05:06 Chloride 100.2 mmol/L (98-107) 04/13/20 05:06 Carbon Dioxide 17 mmol/L (22-30) L 04/13/20 05:06 Anion Gap 22 mmol/L 04/13/20 05:06 BUN 59 mg/dL (9-20) H 04/13/20 05:06 Creatinine 2.2 mg/dL (0.8-1.3) H 04/13/20 05:06 Estimated GFR 29 ml/min 04/13/20 05:06 BUN/Creatinine Ratio 27 % 04/13/20 05:06 Glucose 256 mg/dL (75-100) H 04/13/20 05:06 POC Glucose 167 mg/dL (70-105) H 04/13/20 11:36 Lactic Acid 3.00 mmol/L (0.7-2.0) H* 04/12/20 06:22 Calcium 8.5 mg/dL (8.4-10.2) 04/13/20 05:06 Phosphorus 5.60 mg/dL (2.5-4.5) H 04/10/20 22:50 Magnesium 2.40 mg/dL (1.7-2.3) H 04/10/20 22:50 Ferritin 135.1 ng/mL (30.0-300.0) 04/11/20 15:11 Total Bilirubin 0.80 mg/dL (0.1-1.2) 04/13/20 05:06 Direct Bilirubin 0.6 mg/dL (0-0.2) H 04/13/20 05:06 Indirect Bilirubin 0.2 mg/dL 04/13/20 05:06 AST 160 units/L (5-40) H 04/13/20 05:06 ALT 333 units/L (7-56) H 04/13/20 05:06 Alkaline Phosphatase 153 units/L (35-129) H 04/13/20 05:06 Lactate Dehydrogenase 664 units/L (91-180) H 04/10/20 20:51 Troponin T 0.081 ng/mL (0.00-0.029) H 04/10/20 20:04 C-Reactive Protein 5.60 mg/dL (0.00-1.30) H 04/10/20 20:51 NT-Pro-B Natriuret Pep > 59694 pg/mL (0-900) H 04/11/20 15:11 Total Protein 6.0 g/dL (6.3-8.2) L 04/13/20 05:06 Albumin 3.0 g/dL (3.9-5) L 04/13/20 05:06 Albumin/Globulin Ratio 1.0 % 04/13/20 05:06 Triglycerides 113 mg/dL (2-149) 04/10/20 20:04 Cholesterol 178 mg/dL (50-199) 04/10/20 20:04 LDL Cholesterol Direct 123 mg/dL (50-130) 04/10/20 20:04 HDL Cholesterol 41 mg/dL (40-59) 04/10/20 20:04 Cholesterol/HDL Ratio 4.34 % 04/10/20 20:04 Procalcitonin 2.47 ng/mL (<0.15) 04/11/20 15:11 TSH 3.640 mlU/mL (0.270-4.200) 04/13/20 10:06 Urine Color Yellow (Yellow) 04/11/20 Unknown Urine Turbidity Clear (Clear) 04/11/20 Unknown Urine pH 5.0 (5.0-7.0) 04/11/20 Unknown Ur Specific [place] 1.009 (1.003-1.030) 04/11/20 Unknown Urine Protein <15 mg/dl mg/dL (Negative) 04/11/20 Unknown Urine Glucose (UA) Neg mg/dL (Negative) 04/11/20 Unknown Urine Ketones Neg mg/dL (Negative) 04/11/20 Unknown Urine Blood Neg (Negative) 04/11/20 Unknown Urine Nitrite Neg (Negative) 04/11/20 Unknown Urine Bilirubin Neg (Negative) 04/11/20 Unknown Urine Urobilinogen < 2.0 mg/dL (<2.0) 04/11/20 Unknown Ur Leukocyte Esterase Neg (Negative) 04/11/20 Unknown Urine WBC (Auto) 1.0 /HPF (0.0-6.0) 04/11/20 Unknown Urine RBC (Auto) 2.0 /HPF (0.0-6.0) 04/11/20 Unknown U Epithel Cells (Auto) < 1.0 /HPF (0-13.0) 04/11/20 Unknown Hyaline Casts 3 /LPF 04/11/20 Unknown Urine Mucus Few /HPF 04/11/20 Unknown Urine Eosinophils None seen (None Seen) 04/11/20 Unknown Urine Creatinine 35.3 mg/dL (0.1-20.0) H 04/11/20 Unknown Urine Sodium 92 mmol/L 04/11/20 Unknown Coronavirus (PCR) Negative (Negative) 04/11/20 Unknown Hepatitis A IgM Ab Non-reactive (NonReactive) 04/12/20 20:23 Hep Bs Antigen Non-reactive (Negative) 04/12/20 20:23 Hep B Core IgM Ab Non-reactive (NonReactive) 04/12/20 20:23 Hepatitis C Antibody Non-reactive (NonReactive) 04/12/20 20:23 Microbiology: Microbiology 04/12/20 08:47 Nares - Left MRSA Culture - Preliminary 04/10/20 20:11 Peripheral/Venous Blood Culture - Preliminary NO GROWTH AFTER 48 HOURS 04/10/20 20:04 Peripheral/Venous Blood Culture - Preliminary NO GROWTH AFTER 48 HOURS Gay/IV: Voiding Method Condom Catheter IV Catheter Type [Left Wrist] Peripheral IV IV Catheter Type [Right INT / Saline Lock Forearm] IV Catheter Type [Right Wrist] INT / Saline Lock Active Medications - Current Medications Current Medications: Generic Name Dose Route Start Last Admin Trade Name Freq PRN Reason Stop Dose Admin Acetaminophen 650 mg 04/11/20 01:26 Tylenol PO Q6H PRN Pain MILD(1-3)/Fever >100.5/MANCILLA Albuterol/Ipratropium 1 ampul 04/11/20 02:00 04/13/20 09:20 Duoneb *Not For Prn Use* IH 1 ampul Q6HRT [facility] Administration Lipase/Protease/Amylase 1 each 04/11/20 14:22 Pancreaze 10,500 Unit FEEDTUBE PRN PRN For Clogged Feeding Tube Heparin Sodium (Porcine) 5,000 unit 04/13/20 14:00 Heparin SUB-Q Q8HR [facility] Insulin Human Lispro 0 unit 04/12/20 00:00 04/13/20 11:59 Humalog SUB-Q Not Given Q6H [facility] Protocol Magnesium Hydroxide 30 ml 04/11/20 01:26 Milk Of Magnesia PO Q4H PRN Constipation Methylprednisolone Sodium Succinate 40 mg 04/13/20 10:00 04/13/20 09:49 Solu-Medrol IV 40 mg Q12HR PRAVIN Administration Metoprolol Tartrate 25 mg 04/13/20 18:00 Metoprolol PO Q6HR PRAVIN Simple Syrup 15 ml 04/11/20 14:22 Simple Syrup FEEDTUBE PRN PRN Hypoglycemia Simple Syrup 30 ml 04/11/20 14:22 Simple Syrup FEEDTUBE PRN PRN Hypoglycemia Sodium Bicarbonate 325 mg 04/11/20 14:22 Sodium Bicarbonate FEEDTUBE PRN PRN For Clogged Feeding Tube Sodium Chloride 10 ml 04/11/20 10:00 04/13/20 09:49 Sodium Chloride Flush Syringe 10 Ml IV 10 ml BID PRAVIN Administration Sodium Chloride 10 ml 04/11/20 01:26 Sodium Chloride Flush Syringe 10 Ml IV PRN PRN LINE FLUSH Nutrition/Malnutrition Assess - Dietary Evaluation Nutrition/Malnutrition Findings: Nutrition Notes Start: 04/11/20 13:41 Freq: Status: Active Protocol: Document 04/13/20 12:38 BK (Rec: 04/13/20 12:43 BK [id number]) Co-Sign 04/13/20 12:38 MK Nutrition Notes Initial or Follow up Reassessment Current Diagnosis Acute Kidney Injury,COPD, Coronary Artery Disease, Diabetes,Hypertension,Heart Failure Other Pertinent Diagnosis NE, Crohn's disease, seizure, colitis Current Diet Nepro 1.8 at 35 ml/hr Labs/Tests Na 135 BUN 59 Cr 2.2 BG 256 Pertinent Medications Solu-Medrol Height 5 ft 7 in Weight 65.4 kg [place] Body Weight (kg) 67.27 BMI 22.6 Weight Status Underweight Subjective/Other Information F/U for TF start/tolerance. Per chart, pt tolerating TF at goal yesterday. Per RN, pt is agitated and pulled out TF. Percent of energy/protein needs met: 0%/0% Burn Absent Trauma Absent Difficulty In Swallowing,Chewing Minimum of two criteria No #1 Nutrition Diagnosis Inadequate oral intake Diagnosis Progress(for reassessment Continues documentation) Is patient on ventilator? No Is Patient Ambulatory and/or Out of Bed No REE-([facility]-confined to bed) 5120.289 Calculation Used for Recommendations [facility] Additional Notes Protein Needs: 52-78 g (0.8-1. 2 g/kg) Fluid Needs: 1 mL/kcal Nutrition Intervention Change Diet Order: TF restart Nutrition Support: Nepro 1.8 at 35 mL/hr. Flush 150 mL q4h Kcal 1,512 Protein (gm) 68 Fluid (mL) 611 Fiber (gm) 12 Goal #1 TF restart Goal #2 Meet at least 75% of estimated energy and protein needs via TF Anticipated Discharge Needs: Unable to determine at this time Follow-Up By: 04/17/20 Additional Comments F/U for TF restart/tolerance
[2020-04-13] MEDS: HEPARIN 5,000 UNIT/1 ML VIAL SUB-Q SCH ×2 (14:07→21:28)
--- NOTE | 2020-04-13 15:01 | Gastroenterology Progress Note ---
Assessment and Plan - Patient Problems (1) Crohn's disease Current Visit: Yes Status: Acute Plan to address problem: - ileocolonic Crohns disease - last colonoscopy in 12/2018 showing diffuse small pseudopolyps throughout the colon, patchy erythema in the left colon. Noted to have noncompliance with follow up. Currently not on any medication for Crohns disease. - CT in the ED showed diffuse wall thickening and fat stranding involving descending and sigmoid colon. - colitis, possible Crohns flare up vs infectious colitis, vs ischemic colitis - no clinical symptoms to correlate including abdominal pain, diarrhea. - failed speech evaluation and now with NG tube. Rec - currently on steroids for COPD exacerbation. - if having diarrhea, obtain stool studies to rule out C diff. - supportive care. (2) Elevated liver enzymes Current Visit: Yes Status: Acute Plan to address problem: - elevated AST and ALT, which are trending down - ddx including ischemic injury vs medication induced. was on amiodarone, which was restarted this AM due to Vtach. - acute hepatitis panel negative - CT a/p showed normal liver - monitor LFTs. Subjective Date of service: 04/13/20 Interval history: Patient has NG tube for tube feeds. No diarrhea. Awaiting MBS. Objective - Constitutional Vitals: Temp Pulse Resp BP Pulse Ox 98.0 F 69 25 H 84/54 99 04/13/20 03:43 04/13/20 10:00 04/13/20 10:00 04/13/20 09:48 04/13/20 10:00 General appearance: no acute distress - EENT Eyes: EOM intact ENT: hearing intact - Respiratory Respiratory effort: labored - Cardiovascular Rhythm: regular Heart Sounds: Present: S1 & S2 - Gastrointestinal General gastrointestinal: Present: soft, non-tender, non-distended - Integumentary Integumentary: Present: clear, warm - Labs CBC & Chem 7: 04/13/20 05:06 04/13/20 05:06 Labs: Laboratory Results - last 24 hr 04/12/20 04/12/20 04/12/20 13:23 18:12 20:23 Hgb Hct Plt Count Heparin Anti-Xa Level Sodium 135 L Potassium 5.4 H Chloride 98.5 Carbon Dioxide 22 Anion Gap 20 BUN 53 H Creatinine 2.3 H Estimated GFR 28 BUN/Creatinine Ratio 23 Glucose 190 H POC Glucose 224 H 170 H Calcium 8.5 Total Bilirubin Direct Bilirubin Indirect Bilirubin AST ALT Alkaline Phosphatase Total Protein Albumin Albumin/Globulin Ratio TSH Hepatitis A IgM Ab Hep Bs Antigen Hep B Core IgM Ab Hepatitis C Antibody 04/12/20 04/12/20 04/12/20 20:23 20:23 23:59 Hgb Hct Plt Count Heparin Anti-Xa Level < 0.10 L Sodium Potassium Chloride Carbon Dioxide Anion Gap BUN Creatinine Estimated GFR BUN/Creatinine Ratio Glucose POC Glucose 189 H Calcium Total Bilirubin Direct Bilirubin Indirect Bilirubin AST ALT Alkaline Phosphatase Total Protein Albumin Albumin/Globulin Ratio TSH Hepatitis A IgM Ab Non-reactive Hep Bs Antigen Non-reactive Hep B Core IgM Ab Non-reactive Hepatitis C Antibody Non-reactive 04/13/20 04/13/20 04/13/20 05:06 05:06 05:06 Hgb 8.4 L Hct 26.6 L Plt Count 183 Heparin Anti-Xa Level Sodium 135 L Potassium 4.6 Chloride 100.2 Carbon Dioxide 17 L Anion Gap 22 BUN 59 H Creatinine 2.2 H Estimated GFR 29 BUN/Creatinine Ratio 27 Glucose 256 H POC Glucose Calcium 8.5 Total Bilirubin 0.80 Direct Bilirubin 0.6 H Indirect Bilirubin 0.2 AST 160 H ALT 333 H Alkaline Phosphatase 153 H Total Protein 6.0 L Albumin 3.0 L Albumin/Globulin Ratio 1.0 TSH Hepatitis A IgM Ab Hep Bs Antigen Hep B Core IgM Ab Hepatitis C Antibody 04/13/20 04/13/20 04/13/20 05:06 05:47 10:06 Hgb Hct Plt Count Heparin Anti-Xa Level 0.35 Sodium Potassium Chloride Carbon Dioxide Anion Gap BUN Creatinine Estimated GFR BUN/Creatinine Ratio Glucose POC Glucose 240 H Calcium Total Bilirubin Direct Bilirubin Indirect Bilirubin AST ALT Alkaline Phosphatase Total Protein Albumin Albumin/Globulin Ratio TSH 3.640 Hepatitis A IgM Ab Hep Bs Antigen Hep B Core IgM Ab Hepatitis C Antibody 04/13/20 11:36 Hgb Hct Plt Count Heparin Anti-Xa Level Sodium Potassium Chloride Carbon Dioxide Anion Gap BUN Creatinine Estimated GFR BUN/Creatinine Ratio Glucose POC Glucose 167 H Calcium Total Bilirubin Direct Bilirubin Indirect Bilirubin AST ALT Alkaline Phosphatase Total Protein Albumin Albumin/Globulin Ratio TSH Hepatitis A IgM Ab Hep Bs Antigen Hep B Core IgM Ab Hepatitis C Antibody
--- NOTE | 2020-04-13 15:29 | XRay Report ---
` ABDOMEN ONE VIEW INDICATION / CLINICAL INFORMATION: NG Tube placement. COMPARISON: None available. FINDINGS: Nasogastric tube is present with the tip superimposed over the expected position of the gastric body Signer Name: Yanick Spencer MD FACR Signed: 04/13/2020 3:24 PM Workstation Name: [id number]
--- NOTE | 2020-04-13 17:53 | Ultrasound Report ---
ULTRASOUND ABDOMEN, COMPLETE INDICATION: Evaluate bile duct obstruction. COMPARISON: No relevant prior imaging study available. FINDINGS: Pancreas: No significant abnormality. Abdominal Aorta: Aneurysm measuring up to 3.3 cm AP. IVC: No significant abnormality. Liver: Diffusely heterogeneous in echogenicity. Normal hepatopedal blood flow in the main portal ve in. Gallbladder: Thickened gallbladder wall measuring up to 6 mm.. Bile ducts: No significant abnormality. Common bile duct measures 5 mm. Kidneys: Right: No significant abnormality. Left: No significant abnormality. Spleen: No significant abnormality. Free fluid: Minimal but there does appear to be at least mild body wall anasarca. Additional Findings: Moderate bilateral pleural effusions.. IMPRESSION: 1. Gallbladder wall thickening is nonspecific and could be secondary to anasarca. No gallstones appre ciated. Ultimately, cholecystitis is difficult to exclude. If there is strong clinical concern for ch olecystitis HIDA scan may be useful for further evaluation 2. No evidence of common bile duct dilatation. 3. Abdominal aortic aneurysm, as above. 4 heterogeneous hepatic echotexture could be related to mild fatty liver versus hepatitis. Signer Name: Pedro Pablo Meneses MD Signed: 04/13/2020 5:49 PM Workstation Name: [id number]
[2020-04-13] MEDS: METOPROLOL TARTRATE 25 MG TAB PO SCH (18:15)
[2020-04-14] MEDS: INSULIN LISPRO 100 UNIT/ML VIAL 3 mL SUB-Q SCH ×4 (00:43→17:16)
[2020-04-14] MEDS: METOPROLOL TARTRATE 25 MG TAB PO SCH ×4 (00:47→17:18)
[2020-04-14] MEDS: IPRATROPIUM/ALBUTEROL SULFATE 3 ML AMPUL.NEB IH SCH ×4 (02:22→21:39)
[2020-04-14] MEDS: HEPARIN 5,000 UNIT/1 ML VIAL SUB-Q SCH ×3 (05:17→21:32)
[2020-04-14 07:49] LABS: Albumin 2.9 g/dL (3.9-5); Calcium 8.5 mg/dL (8.4-10.2)
[2020-04-14] MEDS ORDERED: LACTATED RINGERS 1,000 ML IV SCH (09:00)
[2020-04-14] MEDS ORDERED: DEXTROSE 50% IN WATER (25GM) 50 ML SYRINGE IV SCH (09:00)
[2020-04-14] MEDS ORDERED: SODIUM BICARB 8.4% 50 MEQ/50 ML SYRINGE IV SCH (09:00)
[2020-04-14] MEDS ORDERED: SODIUM POLYSTYRENE 15 GM/60 ML ORAL LIQD PO SCH (09:00)
[2020-04-14] MEDS ORDERED: INSULIN REGULAR, HUMAN 100 UNIT/ML 3ML VIAL IV SCH (09:00)
[2020-04-14] MEDS: methylPREDNISolone Sod Succinate 40 MG/1 ML INJ IV SCH ×2 (09:06→21:32)
--- NOTE | 2020-04-14 12:15 | Progress Note ---
Assessment and Plan 1. Acute kidney injury: Vasomotor KIRT superimposed on CKD. CT abdomen negative for hydro. Monitor renal function. Creatinine level is increasing, due to hypotension. On IV fluids. Renal prognosis is guarded. Avoid nephrotoxic agents. Meds dosage based on GFR. 2. FEN: Hyperkalemia, meds ordered, monitor. Anion-gap metabolic acidosis, 2/2 KIRT / CKD, monitor. Sod bicarbonate as needed. Monitor lytes and volume status. 3. Acute hypoxic respiratory failure: Was on BIPAP. Possibly secondary to the CHF and underlying pneumonia. COVID-19 test negative. 4. Chronic CHF: Monitor daily weight, inputs and outputs. Followed by Cards. 5. Colitis: Monitor. Seen by GI. 6. Anemia, POA: Monitor. 7. Elevated Transaminases: Monitor. 8. DM type 2. 9. HTN: Monitor BP. Subjective: Patient was seen and examined at the bedside. Doing ok. Examination: General appearance: well-developed, appears stated age, on restrains, NG tube HEENT: ATNC, pupils equal Neck: trachea midline Respiratory: coarse breath sounds Heart: regular, S1S2, no murmur Gastrointestinal: soft, normoactive bowel sounds, not tender Integumentary: no rash, warm and dry Neurologic: lethargic, non-verbal, not following command Ext: no edema Subjective Date of service: 04/14/20 Objective - Vital Signs Vital signs: Vital Signs - 12hr 04/14/20 04/14/20 04/14/20 02:22 04:53 07:52 Temperature 98.3 F 97.5 F L Pulse Rate 60 58 L Pulse Rate [ Apical] Pulse Rate [ Dorsalis Pedis] Pulse Rate [ Posterior Bilateral Throughout] Pulse Rate [ Radial] Pulse Rate [ 74 Throughout] Respiratory 16 17 Rate Respiratory Rate [Posterior Bilateral Throughout] Respiratory 22 Rate [ Throughout] Blood Pressure 98/52 100/63 O2 Sat by Pulse 96 99 Oximetry 04/14/20 04/14/20 08:00 10:00 Temperature Pulse Rate 57 L Pulse Rate [ 60 Apical] Pulse Rate [ 60 Dorsalis Pedis] Pulse Rate [ 62 Posterior Bilateral Throughout] Pulse Rate [ 60 Radial] Pulse Rate [ Throughout] Respiratory 23 Rate Respiratory 18 Rate [Posterior Bilateral Throughout] Respiratory Rate [ Throughout] Blood Pressure O2 Sat by Pulse 98 Oximetry - Lab 04/13/20 05:06 04/14/20 06:34 Most recent lab results ABG pH 7.425 pH Units (7.350-7.450) 04/11/20 16:25 ABG pCO2 31.8 mm Hg 04/11/20 16:25 ABG pO2 110.8 mm Hg (80.0-90.0) H 04/11/20 16:25 ABG HCO3 20.4 mmol/L (20.0-26.0) 04/11/20 16:25 ABG O2 Saturation 98.1 % (95.0-99.0) 04/11/20 16:25 Calcium 8.5 mg/dL (8.4-10.2) 04/14/20 06:34 Phosphorus 5.60 mg/dL (2.5-4.5) H 04/10/20 22:50 Magnesium 2.40 mg/dL (1.7-2.3) H 04/10/20 22:50 Urine Creatinine 35.3 mg/dL (0.1-20.0) H 04/11/20 Unknown Urine Sodium 92 mmol/L 04/11/20 Unknown Medications & Allergies - Medications Allergies/Adverse Reactions: Allergies Sulfa (Sulfonamide Antibiotics) Allergy (Verified 07/30/18 17:44) Rash Home Medications: Home Medications Medication Instructions Recorded Confirmed Last Taken Type Gabapentin 300 mg PO BID 09/19/16 01/29/20 09/18/16 History 300 mg Metformin HCl [metFORMIN ER 500 mg PO BIDWM 03/28/17 01/29/20 Unknown History Gastric] AtorvaSTATin 10 mg PO QHS #30 tablet 12/21/17 01/29/20 Unknown Rx Ranolazine ER [Ranexa ER] 500 mg PO BID #60 tablet 12/21/17 01/29/20 Unknown Rx Aspirin 325 mg PO QDAY #30 tablet 01/12/18 01/29/20 Unknown Rx Diphenoxylate/Atropine [Lomotil] 1 tab PO Q8H PRN 01/15/18 01/29/20 Unknown History Insulin Lispro [HumaLOG VIAL] See Protocol SQ ACHS 01/15/18 01/29/20 Unknown History Promethazine [Phenergan] 25 mg PO Q4H PRN 01/15/18 01/29/20 Unknown History Albuterol Mdi (or & Nicu Only) 2 puff IH Q4HR PRN #1 inhalation 12/21/18 01/29/20 Unknown Rx [ProAir HFA Inhaler] Furosemide [Lasix TAB] 20 mg PO QDAY #30 tablet 02/03/20 Unknown Rx Metoprolol Xl [Metoprolol 25 mg PO DAILY #60 tablet 02/03/20 Unknown Rx SUCCINATE ER TAB] levETIRAcetam [Keppra TAB] 500 mg PO BID #120 tablet 02/03/20 Unknown Rx levoFLOXacin [Levaquin TAB] 500 mg PO QDAY #5 tablet 02/03/20 Unknown Rx Active Medications: Generic Name Dose Route Start Last Admin Trade Name Freq PRN Reason Stop Dose Admin Acetaminophen 650 mg 04/11/20 01:26 Tylenol PO Q6H PRN Pain MILD(1-3)/Fever >100.5/MANCILLA Albuterol/Ipratropium 1 ampul 04/11/20 02:00 04/14/20 07:56 Duoneb *Not For Prn Use* IH 1 ampul Q6HRT PRAVIN Administration Lipase/Protease/Amylase 1 each 04/11/20 14:[address] 10,500 Unit FEEDTUBE PRN PRN For Clogged Feeding Tube Heparin Sodium (Porcine) 5,000 unit 04/13/20 14:00 04/14/20 05:17 Heparin SUB-Q 5,000 unit Q8HR PRAVIN Administration Lactated Ringer's 1,000 mls @ 42 mls/hr 04/14/20 09:00 04/14/20 09:00 Lactated Ringers IV 42 mls/hr DIRECT PRAVIN Administration Insulin Human Lispro 0 unit 04/12/20 00:00 04/14/20 06:53 Humalog SUB-Q 2 unit Q6H PRAVIN Administration Protocol Magnesium Hydroxide 30 ml 04/11/20 01:26 Milk Of Magnesia PO Q4H PRN Constipation Methylprednisolone Sodium Succinate 40 mg 04/13/20 10:00 04/14/20 09:06 Solu-Medrol IV 40 mg Q12HR PRAVIN Administration Metoprolol Tartrate 25 mg 04/13/20 18:00 04/14/20 05:17 Metoprolol PO 25 mg Q6HR PRAVIN Administration Simple Syrup 15 ml 04/11/20 14:22 Simple Syrup FEEDTUBE PRN PRN Hypoglycemia Simple Syrup 30 ml 04/11/20 14:22 Simple Syrup FEEDTUBE PRN PRN Hypoglycemia Sodium Bicarbonate 325 mg 04/11/20 14:22 Sodium Bicarbonate FEEDTUBE PRN PRN For Clogged Feeding Tube Sodium Chloride 10 ml 04/11/20 10:00 04/14/20 09:07 Sodium Chloride Flush Syringe 10 Ml IV 10 ml BID PRAVIN Administration Sodium Chloride 10 ml 04/11/20 01:26 Sodium Chloride Flush Syringe 10 Ml IV PRN PRN LINE FLUSH
--- NOTE | 2020-04-14 12:28 | Progress Note ---
Assessment and Plan - Patient Problems (1) Chronic left ventricular systolic heart failure Current Visit: Yes Status: Acute Plan to address problem: We will continue guideline directed medical therapy for chronic systolic left ventricular dysfunction. (2) Paroxysmal atrial fibrillation Current Visit: Yes Status: Acute Plan to address problem: Amiodarone was discontinued due to elevated liver enzymes, but patient is on beta-blockers. During this admission, we will need to consider the patient's risks and benefits for long-term oral anticoagulation for stroke prophylaxis. (3) Coronary artery disease Current Visit: Yes Status: Acute Plan to address problem: Patient has history of coronary artery disease with stents in the proximal circumflex and mid right coronary artery, both patent on repeat cardiac catheterization 2 years ago. He is on medical therapy for small vessel disease, and currently asymptomatic for chest pain. We will continue medical therapy and risk factor modification. Subjective Date of service: 04/14/20 Interval history: Patient is comfortable, no new cardiac complaints, no chest pain and no shortness of breath. Objective Vital Signs Temp Pulse Pulse Pulse Pulse Pulse Pulse 04/14/20 10:00 57 L 60 60 60 04/14/20 08:00 62 04/14/20 07:52 97.5 F L 58 L 04/14/20 04:53 98.3 F 60 04/14/20 02:22 74 04/14/20 00:00 71 04/13/20 23:48 98.4 F 68 04/13/20 21:35 66 04/13/20 19:58 98.3 F 68 04/13/20 18:15 69 04/13/20 18:08 70 04/13/20 15:43 98.0 F 59 L 04/13/20 14:35 96 H Resp Resp Resp BP Pulse Ox 04/14/20 10:00 23 98 04/14/20 08:00 18 04/14/20 07:52 17 100/63 99 04/14/20 04:53 16 98/52 96 04/14/20 02:22 22 04/14/20 00:00 04/13/20 23:48 18 107/63 97 04/13/20 21:35 22 100 04/13/20 19:58 17 112/60 100 04/13/20 18:15 114/75 04/13/20 18:08 114/75 99 04/13/20 15:43 16 112/65 98 04/13/20 14:35 22 - Physical Examination General: No Apparent Distress HEENT: Positive: PERRL Neck: Positive: trachea midline Cardiac: Positive: irregularly irregular Lungs: Positive: Decreased Breath Sounds Neuro: Positive: Weakness Abdomen: Positive: Soft Skin: Positive: Clear Extremities: Absent: edema - Labs and Meds Cardiac Enzymes 04/14/20 Range/Units 06:34 AST 181 H (5-40) units/L Comprehensive Metabolic Panel 04/14/20 Range/Units 06:34 Sodium 129 L (137-145) mmol/L Potassium 5.7 H D (3.6-5.0) mmol/L Chloride 96.2 L (98-107) mmol/L Carbon Dioxide 14 L (22-30) mmol/L BUN 81 H (9-20) mg/dL Creatinine 2.8 H (0.8-1.3) mg/dL Glucose 244 H (75-100) mg/dL Calcium 8.5 (8.4-10.2) mg/dL AST 181 H (5-40) units/L ALT 386 H (7-56) units/L Alkaline Phosphatase 160 H (35-129) units/L Total Protein 6.0 L (6.3-8.2) g/dL Albumin 2.9 L (3.9-5) g/dL
--- NOTE | 2020-04-14 12:54 | Fluoroscopy Report ---
Modified barium swallow Indication: Dysphagia Technique: Swallowing was evaluated in the lateral position under direct fluoroscopy. Findings: The patient was evaluated with puree, nectar, and thin consistencies. There was vallecular and piriform sinus retention with puree consistency. There was early spill with both nectar and thin consistencies. There was no aspiration or penetration with any consistency. Impression: Slightly abnormal exam as above. Fluoroscopic time: 0.9 minutes Number of fluoroscopic images: 2 Signer Name: Aaron Vega MD Signed: 04/14/2020 12:50 PM Workstation Name: [id number]
--- NOTE | 2020-04-14 14:29 | Progress Note ---
Assessment and Plan Assessment and plan: 75-year-old male with known history of coronary artery disease, diabetes mellitus and CHF with ejection fraction of 15% on echo done in January 2020, Crohn's disease, anemia and osteoarthritis presenting to the emergency room today with shortness of breath and abdominal pain. Symptoms were said to have started today and patient was brought in by EMS. En route to the hospital EMS indicates that patient was in a nonsustained V. tach. Most of the history was given by the ER physician as patient is in some respiratory distress. He was placed on BiPAP upon arrival in the emergency room. Work-up in the emergency room- chest x-ray reveals: Patchy bibasilar airspace opacities, may reflect pulmonary edema or pneumonia. Stable small left pleural effusion and/or pleural scarring. CT abdomen showed d iffuse colitis, bilateral pleural effusions and possible acute appearing compression fracture of T12. Patient was then admitted to the hospital for acute hypoxic respiratory failure, acute on chronic systolic heart failure, colitis and KIRT. Patient started on IV antibiotics and cardiology consulted for ventricular tachycardia. 04/11. Patient seen and examined at bedside this morning. Patient is on BiPAP. Patient is eager to go home. Otherwise denies any chest pain or palpitations. Patient CT showed possible compression fracture of T12, it is unknown if this is new. We will get MRI without contrast of the thoracic and lumbar to further evaluate. If patient actually has an acute compression fracture, he will need to have a neurosurgery evaluation so will need to be transferred to another facility for this. Otherwise, patient continue to monitor patient's respiratory status while in the IMCU. Patient reportedly failed a swallow evaluation and will need to have an NG tube placement. Tried to call son on number provided in the chart and left a message. Awaiting callback. Labs reviewed-patient has elevated inflammatory [id number], LDH. COVID-19 test has been ordered. Started patient on steroids. Ordered stat BMP, ABG, D-dimer, proBNP, ferritin, LDH. 04/12. COVID -19 test is negative. His breathing has improved so was placed on nasal cannula. Cardiology adjusted meds today. He failed swallow evaluation yesterday. He requests for food. Will reattempt swallow evaluation. Speech therapy consult. 04/13. Overnight, he developed VT and was started on amiodarone. HR better this AM. Cardiology will review medications. Patient seen and examined at bedside this AM. He requests for food. He failed a repeat speech evaluation and will need barium swallow. May need PEG placement if he fails. NG tube in place. Vitals reviewed 04/14. Heart rate improved. Remains n.p.o. with NG tube feeds. Video swallow evaluation shows mild abnormal study. Speech therapist to see patient. Patient has not been able to have an MRI of the back due to agitation. He had a CT d uring the admission that showed possible compression fracture of T12 but this has not been fully evaluated due to patient's ongoing conditions. Labs reviewed-renal function is worse. Discontinue Lasix. Problems 1) Acute respiratory failure Current Visit: Yes Status: Acute Plan to address problem: From CHF Has no pneumonia and no sepsis - procalcitonin Continue oxygen supplementation COVID-19 test negative Respiratory therapy assess and treat (2) Acute on chronic systolic CHF (congestive heart failure) Current Visit: Yes Status: Acute Plan to address problem: Hold Lasix due to KIRT Will monitor daily weight, inputs and outputs. Monitor renal function closely Repeat BNP Cardiology on board (3) KIRT (acute kidney injury) Current Visit: Yes Status: Acute Plan to address problem: Discontinue Lasix. Gentle IV hydration for now Vasomotor nephropathy Nephrology following (4) Colitis Current Visit: Yes Status: Acute Plan to address problem: GI evaluation Will send c.diff if he has diarrhea (5) Nonsustained ventricular tachycardia Current Visit: Yes Status: Acute Plan to address problem: Continue rate control as per cardiology (6) Diabetes mellitus type 2 in nonobese Current Visit: No Status: Acute Plan to address problem: Will monitor accucheks. (7) Hyperkalemia and metabolic acidosis Current Visit: Yes Status: Acute Plan to address problem: Monitor BMP Kayexalate Nephrology following (8) T12 compression fracture Current Visit: No Status: Likely chronic Plan to address problem: CT abdomen showed possible T12 compression fracture MRI thoracic without contrast ordered to further evaluate. Patient is agitated and unable to get an MRI. We will use sedative If positive for acute fracture, patient will need to be transferred for neurosurgery evaluation. (9) Elevated LFTs Current Visit: Yes Status: Acute Plan to address problem: Improving US abdomen shows no acute pathology Trend LFTs (19) DVT prophylaxis Current Visit: No Status: Acute Plan to address problem: Placed on anticoagulation with SQ heparin. (11) Full code status Current Visit: No Status: Acute Active issues Monitor renal function Needs swallow reevaluation MRI thoracic for evaluation of compression fracture which is most likely old PT/OT ordered History Interval history: Patient seen and examined at bedside. He will need to have a modified barium swallow today Labs reviewed> Cr bump to 2.8 Hospitalist Physical - Physical exam Narrative exam: VITAL SIGNS: Reviewed. GENERAL: Awake and alert and responds to questions HEAD: No signs of head trauma. EYES: Pupils are equal. Extraocular motions intact. EARS: Hearing grossly intact. MOUTH: Oropharynx is normal. NECK: No adenopathy, no JVD. CHEST: Chest with rales at the bases CARDIAC: Regular rate and rhythm. S1 and S2, without murmurs, gallops, or rubs. VASCULAR: No Edema. Peripheral pulses normal and equal in all extremities. ABDOMEN: Soft, non tender and non distended. No rebound or guarding, and no masses palpated. Bowel Sounds normal. MUSCULOSKELETAL: Good range of motion of all major joints. Extremities without clubbing, cyanosis or edema. NEUROLOGIC EXAM: Alert. No focal neurologic deficits PSYCHIATRIC: Stable mood SKIN: No obvious lesions - Constitutional Vitals: Temp Pulse Resp BP Pulse Ox 97.5 F L 66 30 H 123/87 98 04/14/20 07:52 04/14/20 13:52 04/14/20 13:52 04/14/20 13:49 04/14/20 10:00 HEART Score - HEART Score Troponin: Troponin T 0.081 ng/mL (0.00-0.029) H 04/10/20 20:04 Results - Labs CBC & Chem 7: 04/13/20 05:06 04/14/20 06:34 Labs: Laboratory Last Values WBC 11.5 K/mm3 (4.5-11.0) H 04/12/20 06:22 RBC 3.61 M/mm3 (3.65-5.03) L 04/12/20 06:22 Hgb 8.4 gm/dl (11.8-15.2) L 04/13/20 05:06 Hct 26.6 % (35.5-45.6) L 04/13/20 05:06 MCV 77 fl (84-94) L 04/12/20 06:22 MCH 25 pg (28-32) L 04/12/20 06:22 MCHC 33 % (32-34) 04/12/20 06:22 RDW 20.8 % (13.2-15.2) H 04/12/20 06:22 Plt Count 183 K/mm3 (140-440) 04/13/20 05:06 Lymph % (Auto) 10.9 % (13.4-35.0) L 04/10/20 20:04 [place]y % (Auto) 6.0 % (0.0-7.3) 04/10/20 20:04 Eos % (Auto) 0.6 % (0.0-4.3) 04/10/20 20:04 Baso % (Auto) 1.0 % (0.0-1.8) 04/10/20 20:04 Lymph # (Auto) 0.8 K/mm3 (1.2-5.4) L 04/10/20 20:04 [place]osey # (Auto) 0.4 K/mm3 (0.0-0.8) 04/10/20 20:04 Eos # (Auto) 0.0 K/mm3 (0.0-0.4) 04/10/20 20:04 Baso # (Auto) 0.1 K/mm3 (0.0-0.1) 04/10/20 20:04 Add Manual Diff Complete 04/12/20 06:22 Total Counted 100 04/12/20 06:22 Seg Neutrophils % [employer] Developer 04/12/20 06:22 Seg Neuts % (Manual) 100.0 % (40.0-70.0) H 04/12/20 06:22 Band Neutrophils % 0 % 04/12/20 06:22 Lymphocytes % (Manual) 0 % (13.4-35.0) L 04/12/20 06:22 Reactive Lymphs % (Man) 0 % 04/12/20 06:22 Monocytes % (Manual) 0 % (0.0-7.3) 04/12/20 06:22 Eosinophils % (Manual) 0 % (0.0-4.3) 04/12/20 06:22 Basophils % (Manual) 0 % (0.0-1.8) 04/12/20 06:22 Metamyelocytes % 0 % 04/12/20 06:22 Myelocytes % 0 % 04/12/20 06:22 Promyelocytes % 0 % 04/12/20 06:22 Blast Cells % 0 % 04/12/20 06:22 Nucleated RBC % Not Reportable 04/12/20 06:22 Seg Neutrophils # 6.1 K/mm3 (1.8-7.7) 04/10/20 20:04 Seg Neutrophils # Man 11.5 K/mm3 (1.8-7.7) H 04/12/20 06:22 Band Neutrophils # 0.0 K/mm3 04/12/20 06:22 Lymphocytes # (Manual) 0.0 K/mm3 (1.2-5.4) L 04/12/20 06:22 Abs React Lymphs (Man) 0.0 K/mm3 04/12/20 06:22 Monocytes # (Manual) 0.0 K/mm3 (0.0-0.8) 04/12/20 06:22 Eosinophils # (Manual) 0.0 K/mm3 (0.0-0.4) 04/12/20 06:22 Basophils # (Manual) 0.0 K/mm3 (0.0-0.1) 04/12/20 06:22 Metamyelocytes # 0.0 K/mm3 04/12/20 06:22 Myelocytes # 0.0 K/mm3 04/12/20 06:22 Promyelocytes # 0.0 K/mm3 04/12/20 06:22 Blast Cells # 0.0 K/mm3 04/12/20 06:22 WBC Morphology Not Reportable 04/12/20 06:22 Hypersegmented Neuts Not Reportable 04/12/20 06:22 Hyposegmented Neuts Not Reportable 04/12/20 06:22 Hypogranular Neuts Not Reportable 04/12/20 06:22 Smudge Cells Not Reportable 04/12/20 06:22 Toxic Granulation Not Reportable 04/12/20 06:22 Toxic Vacuolation Not Reportable 04/12/20 06:22 Dohle Bodies Not Reportable 04/12/20 06:22 Pelger-Huet Anomaly Not Reportable 04/12/20 06:22 Barby Rods Not Reportable 04/12/20 06:22 Platelet Estimate Consistent w auto 04/12/20 06:22 Clumped Platelets Not Reportable 04/12/20 06:22 Plt Clumps, EDTA Not Reportable 04/12/20 06:22 Large Platelets Not Reportable 04/12/20 06:22 Giant Platelets Not Reportable 04/12/20 06:22 Platelet Satelliting Not Reportable 04/12/20 06:22 Plt Morphology Comment Not Reportable 04/12/20 06:22 RBC Morphology Not Reportable 04/12/20 06:22 Dimorphic RBCs Not Reportable 04/12/20 06:22 Polychromasia Not Reportable 04/12/20 06:22 Hypochromasia 1+ 04/12/20 06:22 Poikilocytosis Not Reportable 04/12/20 06:22 Anisocytosis 1+ 04/12/20 06:22 Microcytosis Not Reportable 04/12/20 06:22 Macrocytosis Not Reportable 04/12/20 06:22 Spherocytes Not Reportable 04/12/20 06:22 Pappenheimer Bodies Not Reportable 04/12/20 06:22 Sickle Cells Not Reportable 04/12/20 06:22 Target Cells Not Reportable 04/12/20 06:22 Tear Drop Cells Rare 04/12/20 06:22 Ovalocytes Few 04/12/20 06:22 Helmet Cells Not Reportable 04/12/20 06:22 [place] Bodies Not Reportable 04/12/20 06:22 Zearing Rings Not Reportable 04/12/20 06:22 [place] Cells Few 04/12/20 06:22 Bite Cells Not Reportable 04/12/20 06:22 Crenated Cell Not Reportable 04/12/20 06:22 Elliptocytes Not Reportable 04/12/20 06:22 Acanthocytes (Spur) Not Reportable 04/12/20 06:22 Rouleaux Not Reportable 04/12/20 06:22 Hemoglobin C Crystals Not Reportable 04/12/20 06:22 Schistocytes Rare 04/12/20 06:22 Malaria parasites Not Reportable 04/12/20 06:22 Willie Bodies Not Reportable 04/12/20 06:22 Hem Pathologist Commnt No 04/12/20 06:22 PT 15.5 Sec. (12.2-14.9) H 04/12/20 06:22 INR 1.21 (0.87-1.13) H 04/12/20 06:22 D-Dimer 2029.09 ng/mlDDU (0-234) H 04/11/20 15:11 Heparin Anti-Xa Level 0.35 U.I./ml (0.3-0.7) 04/13/20 05:06 ABG pH 7.425 pH Units (7.350-7.450) 04/11/20 16:25 ABG pCO2 31.8 mm Hg 04/11/20 16:25 ABG pO2 110.8 mm Hg (80.0-90.0) H 04/11/20 16:25 ABG HCO3 20.4 mmol/L (20.0-26.0) 04/11/20 16:25 ABG O2 Saturation 98.1 % (95.0-99.0) 04/11/20 16:25 ABG O2 Content 11.8 (0.0-44) 04/11/20 16:25 ABG Base Excess -3.4 mmol/L (-2.0-3.0) L 04/11/20 16:25 ABG Hemoglobin 8.6 gm/dl (14.0-18.0) L 04/11/20 16:25 ABG Carboxyhemoglobin 1.6 % (0.0-5.0) 04/11/20 16:25 ABG Methemoglobin 0.4 % (0.0-1.5) 04/11/20 16:25 Oxyhemoglobin 96.2 % (95.0-99.0) 04/11/20 16:25 FiO2 44 % 04/11/20 16:25 Sodium 129 mmol/L (137-145) L 04/14/20 06:34 Potassium 5.7 mmol/L (3.6-5.0) H D 04/14/20 06:34 Chloride 96.2 mmol/L (98-107) L 04/14/20 06:34 Carbon Dioxide 14 mmol/L (22-30) L 04/14/20 06:34 Anion Gap 25 mmol/L 04/14/20 06:34 BUN 81 mg/dL (9-20) H 04/14/20 06:34 Creatinine 2.8 mg/dL (0.8-1.3) H 04/14/20 06:34 Estimated GFR 22 ml/min 04/14/20 06:34 BUN/Creatinine Ratio 29 % 04/14/20 06:34 Glucose 244 mg/dL (75-100) H 04/14/20 06:34 POC Glucose 195 mg/dL (70-105) H 04/14/20 06:41 Lactic Acid 3.00 mmol/L (0.7-2.0) H* 04/12/20 06:22 Calcium 8.5 mg/dL (8.4-10.2) 04/14/20 06:34 Phosphorus 5.60 mg/dL (2.5-4.5) H 04/10/20 22:50 Magnesium 2.40 mg/dL (1.7-2.3) H 04/10/20 22:50 Ferritin 135.1 ng/mL (30.0-300.0) 04/11/20 15:11 Total Bilirubin 1.00 mg/dL (0.1-1.2) 04/14/20 06:34 Direct Bilirubin 0.6 mg/dL (0-0.2) H 04/13/20 05:06 Indirect Bilirubin 0.2 mg/dL 04/13/20 05:06 AST 181 units/L (5-40) H 04/14/20 06:34 ALT 386 units/L (7-56) H 04/14/20 06:34 Alkaline Phosphatase 160 units/L (35-129) H 04/14/20 06:34 Lactate Dehydrogenase 664 units/L (91-180) H 04/10/20 20:51 Troponin T 0.081 ng/mL (0.00-0.029) H 04/10/20 20:04 C-Reactive Protein 5.60 mg/dL (0.00-1.30) H 04/10/20 20:51 NT-Pro-B Natriuret Pep > 26539 pg/mL (0-900) H 04/11/20 15:11 Total Protein 6.0 g/dL (6.3-8.2) L 04/14/20 06:34 Albumin 2.9 g/dL (3.9-5) L 04/14/20 06:34 Albumin/Globulin Ratio 0.9 % 04/14/20 06:34 Triglycerides 113 mg/dL (2-149) 04/10/20 20:04 Cholesterol 178 mg/dL (50-199) 04/10/20 20:04 LDL Cholesterol Direct 123 mg/dL (50-130) 04/10/20 20:04 HDL Cholesterol 41 mg/dL (40-59) 04/10/20 20:04 Cholesterol/HDL Ratio 4.34 % 04/10/20 20:04 Procalcitonin 2.47 ng/mL (<0.15) 04/11/20 15:11 TSH 3.640 mlU/mL (0.270-4.200) 04/13/20 10:06 Urine Color Yellow (Yellow) 04/11/20 Unknown Urine Turbidity Clear (Clear) 04/11/20 Unknown Urine pH 5.0 (5.0-7.0) 04/11/20 Unknown Ur Specific [place] 1.009 (1.003-1.030) 04/11/20 Unknown Urine Protein <15 mg/dl mg/dL (Negative) 04/11/20 Unknown Urine Glucose (UA) Neg mg/dL (Negative) 04/11/20 Unknown Urine Ketones Neg mg/dL (Negative) 04/11/20 Unknown Urine Blood Neg (Negative) 04/11/20 Unknown Urine Nitrite Neg (Negative) 04/11/20 Unknown Urine Bilirubin Neg (Negative) 04/11/20 Unknown Urine Urobilinogen < 2.0 mg/dL (<2.0) 04/11/20 Unknown Ur Leukocyte Esterase Neg (Negative) 04/11/20 Unknown Urine WBC (Auto) 1.0 /HPF (0.0-6.0) 04/11/20 Unknown Urine RBC (Auto) 2.0 /HPF (0.0-6.0) 04/11/20 Unknown U Epithel Cells (Auto) < 1.0 /HPF (0-13.0) 04/11/20 Unknown Hyaline Casts 3 /LPF 04/11/20 Unknown Urine Mucus Few /HPF 04/11/20 Unknown Urine Eosinophils None seen (None Seen) 04/11/20 Unknown Urine Creatinine 35.3 mg/dL (0.1-20.0) H 04/11/20 Unknown Urine Sodium 92 mmol/L 04/11/20 Unknown Coronavirus (PCR) Negative (Negative) 04/11/20 Unknown Hepatitis A IgM Ab Non-reactive (NonReactive) 04/12/20 20:23 Hep Bs Antigen Non-reactive (Negative) 04/12/20 20:23 Hep B Core IgM Ab Non-reactive (NonReactive) 04/12/20 20:23 Hepatitis C Antibody Non-reactive (NonReactive) 04/12/20 20:23 Microbiology: Microbiology 04/12/20 08:47 Nares - Left MRSA Culture - Final 04/10/20 20:11 Peripheral/Venous Blood Culture - Preliminary NO GROWTH AFTER 72 HOURS 04/10/20 20:04 Peripheral/Venous Blood Culture - Preliminary NO GROWTH AFTER 72 HOURS Gay/IV: Voiding Method Condom Catheter IV Catheter Type [Right Upper INT / Saline Lock arm] IV Catheter Type [Left Wrist] Peripheral IV IV Catheter Type [Right INT / Saline Lock Forearm] IV Catheter Type [Right Wrist] INT / Saline Lock Active Medications - Current Medications Current Medications: Generic Name Dose Route Start Last Admin Trade Name Freq PRN Reason Stop Dose Admin Acetaminophen 650 mg 04/11/20 01:26 Tylenol PO Q6H PRN Pain MILD(1-3)/Fever >100.5/MANCILLA Albuterol/Ipratropium 1 ampul 04/11/20 02:00 04/14/20 13:52 Duoneb *Not For Prn Use* IH 1 ampul Q6HRT PRAVIN Administration Lipase/Protease/Amylase 1 each 04/11/20 14:22 Pancreazaddison Saenz 10,500 Unit FEEDTUBE PRN PRN For Clogged Feeding Tube Heparin Sodium (Porcine) 5,000 unit 04/13/20 14:00 04/14/20 13:51 Heparin SUB-Q 5,000 unit Q8HR PRAVIN Administration Lactated Ringer's 1,000 mls @ 42 mls/hr 04/14/20 09:00 04/14/20 09:00 Lactated Ringers IV 42 mls/hr DIRECT PRAVIN Administration Insulin Human Lispro 0 unit 04/12/20 00:00 04/14/20 06:53 Humalog SUB-Q 2 unit Q6H PRAVIN Administration Protocol Magnesium Hydroxide 30 ml 04/11/20 01:26 Milk Of Magnesia PO Q4H PRN Constipation Methylprednisolone Sodium Succinate 40 mg 04/13/20 10:00 04/14/20 09:06 Solu-Medrol IV 40 mg Q12HR PRAVIN Administration Metoprolol Tartrate 25 mg 04/13/20 18:00 04/14/20 13:49 Metoprolol PO 25 mg Q6HR PRAVIN Administration Simple Syrup 15 ml 04/11/20 14:22 Simple Syrup FEEDTUBE PRN PRN Hypoglycemia Simple Syrup 30 ml 04/11/20 14:22 Simple Syrup FEEDTUBE PRN PRN Hypoglycemia Sodium Bicarbonate 325 mg 04/11/20 14:22 Sodium Bicarbonate FEEDTUBE PRN PRN For Clogged Feeding Tube Sodium Chloride 10 ml 04/11/20 10:00 04/14/20 09:07 Sodium Chloride Flush Syringe 10 Ml IV 10 ml BID PRAVIN Administration Sodium Chloride 10 ml 04/11/20 01:26 Sodium Chloride Flush Syringe 10 Ml IV PRN PRN LINE FLUSH Nutrition/Malnutrition Assess - Dietary Evaluation Nutrition/Malnutrition Findings: Nutrition Notes Start: 04/11/20 13:41 Freq: Status: Active Protocol: Document 04/13/20 12:38 BERNIE (Rec: 04/13/20 12:43 BERNIE [id number]) Co-Sign 04/13/20 12:38 TRINITY Nutrition Notes Initial or Follow up Reassessment Current Diagnosis Acute Kidney Injury,COPD, Coronary Artery Disease, Diabetes,Hypertension,Heart Failure Other Pertinent Diagnosis [place], Crohn's disease, seizure, colitis Current Diet Nepro 1.8 at 35 ml/hr Labs/Tests Na 135 BUN 59 Cr 2.2 BG 256 Pertinent Medications Solu-Medrol Height 5 ft 7 in Weight 65.4 kg [place] Body Weight (kg) 67.27 BMI 22.6 Weight Status Underweight Subjective/Other Information F/U for TF start/tolerance. Unable to speak to pt, pt yelling at time of visit. Per chart, pt tolerating TF at goal yesterday. Per RN, pt is agitated and pulled out TF. Percent of energy/protein needs met: 0%/0% Burn Absent Trauma Absent Difficulty In Swallowing,Chewing Minimum of two criteria No #1 Nutrition Diagnosis Inadequate oral intake Diagnosis Progress(for reassessment Continues documentation) Is patient on ventilator? No Is Patient Ambulatory and/or Out of Bed No REE-([facility]-confined to bed) 4840.076 Calculation Used for Recommendations [facility] Additional Notes Protein Needs: 52-78 g (0.8-1. 2 g/kg) Fluid Needs: 1 mL/kcal Nutrition Intervention Change Diet Order: TF restart Nutrition Support: Nepro 1.8 at 35 mL/hr. Flush 150 mL q4h Kcal 1,512 Protein (gm) 68 Fluid (mL) 611 Fiber (gm) 12 Goal #1 TF restart Goal #2 Meet at least 75% of estimated energy and protein needs via TF Anticipated Discharge Needs: Unable to determine at this time Follow-Up By: 04/17/20 Additional Comments F/U for TF restart/tolerance
[2020-04-14] MEDS ORDERED: SODIUM POLYSTYRENE 15 GM/60 ML ORAL LIQD PO ONE (14:30)
--- NOTE | 2020-04-14 16:54 | Gastroenterology Progress Note ---
Assessment and Plan - Patient Problems (1) Crohn's disease Current Visit: Yes Status: Acute Plan to address problem: - ileocolonic Crohns disease - last colonoscopy in 12/2018 showing diffuse small pseudopolyps throughout the colon, patchy erythema in the left colon. Noted to have noncompliance with follow up. Currently not on any medication for Crohns disease. - CT in the ED showed diffuse wall thickening and fat stranding involving descending and sigmoid colon. - colitis, possible Crohns flare up vs infectious colitis, vs ischemic colitis - no clinical symptoms to correlate including abdominal pain, diarrhea. - on pureed diet. Rec - currently on steroids for COPD exacerbation. - if having diarrhea, obtain stool studies to rule out C diff. - supportive care. (2) Elevated liver enzymes Current Visit: Yes Status: Acute Plan to address problem: - elevated AST and ALT, which have remained stable. - ddx including ischemic injury vs medication induced. was on amiodarone, which was stopped. - acute hepatitis panel negative - CT a/p showed normal liver - monitor LFTs. - avoid hepatotoxic medications. Subjective Date of service: 04/14/20 Interval history: Patient evaluated with speech and placed on pureed diet. Tolerating it well. No diarrhea. Objective - Constitutional Vitals: Temp Pulse Resp BP Pulse Ox 97.5 F L 66 30 H 123/87 98 04/14/20 07:52 04/14/20 13:52 04/14/20 13:52 04/14/20 13:49 04/14/20 10:00 General appearance: no acute distress - EENT ENT: hearing intact - Neck Neck: supple - Respiratory Respiratory effort: normal - Cardiovascular Rhythm: regular Heart Sounds: Present: S1 & S2 - Gastrointestinal General gastrointestinal: Present: soft, non-tender, non-distended - Labs CBC & Chem 7: 04/13/20 05:06 04/14/20 06:34 Labs: Laboratory Results - last 24 hr 04/13/20 04/14/20 04/14/20 21:08 00:32 06:34 Sodium 129 L Potassium 5.7 H D Chloride 96.2 L Carbon Dioxide 14 L Anion Gap 25 BUN 81 H Creatinine 2.8 H Estimated GFR 22 BUN/Creatinine Ratio 29 Glucose 244 H POC Glucose 199 H 233 H Calcium 8.5 Total Bilirubin 1.00 AST 181 H ALT 386 H Alkaline Phosphatase 160 H Total Protein 6.0 L Albumin 2.9 L Albumin/Globulin Ratio 0.9 04/14/20 04/14/20 06:41 16:50 Sodium Potassium Chloride Carbon Dioxide Anion Gap BUN Creatinine Estimated GFR BUN/Creatinine Ratio Glucose POC Glucose 195 H 293 H Calcium Total Bilirubin AST ALT Alkaline Phosphatase Total Protein Albumin Albumin/Globulin Ratio
[2020-04-15 00:29] LABS: Calcium 8.3 mg/dL (8.4-10.2)
[2020-04-15] MEDS: METOPROLOL TARTRATE 25 MG TAB PO SCH ×4 (02:04→17:51)
[2020-04-15] MEDS: IPRATROPIUM/ALBUTEROL SULFATE 3 ML AMPUL.NEB IH SCH ×4 (02:42→20:40)
[2020-04-15] MEDS: HEPARIN 5,000 UNIT/1 ML VIAL SUB-Q SCH ×3 (05:16→21:29)
[2020-04-15 05:22] LABS: Hematocrit 27.2 % (35.5-45.6); Hemoglobin 8.7 gm/dl (11.8-15.2)
[2020-04-15] MEDS: INSULIN LISPRO 100 UNIT/ML VIAL 3 mL SUB-Q SCH ×3 (05:27→17:53)
[2020-04-15 05:50] LABS: Calcium 8.1 mg/dL (8.4-10.2)
[2020-04-15 09:35] LABS: Albumin 3.5 g/dL (3.9-5); Bilirubin,Direct 0.6 mg/dL (0-0.2)
[2020-04-15] MEDS: methylPREDNISolone Sod Succinate 40 MG/1 ML INJ IV SCH ×2 (10:27→21:29)
--- NOTE | 2020-04-15 10:54 | Progress Note ---
Assessment and Plan - Patient Problems (1) Chronic left ventricular systolic heart failure Current Visit: Yes Status: Acute Plan to address problem: We will continue guideline directed medical therapy for chronic systolic left ventricular dysfunction. (2) Paroxysmal atrial fibrillation Current Visit: Yes Status: Acute Plan to address problem: Amiodarone was discontinued due to elevated liver enzymes, but patient is on beta-blockers. During this admission, we will need to consider the patient's risks and benefits for long-term oral anticoagulation for stroke prophylaxis. (3) Coronary artery disease Current Visit: Yes Status: Acute Plan to address problem: Patient has history of coronary artery disease with stents in the proximal circumflex and mid right coronary artery, both patent on repeat cardiac catheterization 2 years ago. He is on medical therapy for small vessel disease, and currently asymptomatic for chest pain. We will continue medical therapy and risk factor modification. Subjective Date of service: 04/15/20 Interval history: Patient is comfortable, no new cardiac complaints, no chest pain and no shortness of breath. He is on 2 point restraints.. Objective Vital Signs Temp Pulse Pulse Pulse Pulse Resp Resp 04/15/20 09:21 86 04/15/20 09:14 73 18 04/15/20 08:29 04/15/20 08:23 70 04/15/20 04:30 97.2 F L 76 17 04/15/20 02:30 71 04/14/20 23:50 97.4 F L 69 18 04/14/20 22:00 04/14/20 21:30 68 66 77 22 04/14/20 20:29 97.5 F L 69 17 04/14/20 17:18 69 04/14/20 17:00 62 04/14/20 14:40 97.5 F L 35 L 20 04/14/20 13:52 66 77 04/14/20 13:49 69 04/14/20 12:56 63 Resp Resp BP Pulse Ox 04/15/20 09:21 100 04/15/20 09:14 121/68 100 04/15/20 08:29 99 04/15/20 08:23 21 04/15/20 04:30 121/64 94 04/15/20 02:30 18 04/14/20 23:50 129/66 100 04/14/20 22:00 98 04/14/20 21:30 30 H 21 04/14/20 20:29 114/58 98 04/14/20 17:18 123/87 04/14/20 17:00 04/14/20 14:40 112/68 99 04/14/20 13:52 30 H 21 04/14/20 13:49 123/87 04/14/20 12:56 99 - Physical Examination General: No Apparent Distress HEENT: Positive: PERRL Neck: Positive: trachea midline Cardiac: Positive: Irregularly Regular Lungs: Positive: Decreased Breath Sounds Neuro: Positive: Weakness Abdomen: Positive: Soft Skin: Positive: Clear Extremities: Absent: edema - Labs and Meds Cardiac Enzymes 04/15/20 Range/Units 04:56 AST 85 H (5-40) units/L CBC 04/15/20 Range/Units 04:56 Hgb 8.7 L (11.8-15.2) gm/dl Hct 27.2 L (35.5-45.6) % Plt Count 145 (140-440) K/mm3 Comprehensive Metabolic Panel 04/14/20 04/15/20 04/15/20 Range/Units 23:55 04:56 04:56 Sodium 139 D 138 (137-145) mmol/L Potassium 4.5 D 4.0 (3.6-5.0) mmol/L Chloride 99.1 100.8 (98-107) mmol/L Carbon Dioxide 22 D 19 L (22-30) mmol/L BUN 93 H 97 H (9-20) mg/dL Creatinine 3.1 H 2.9 H (0.8-1.3) mg/dL Glucose 226 H 226 H (75-100) mg/dL Calcium 8.3 L 8.1 L (8.4-10.2) mg/dL Direct Bilirubin 0.6 H (0-0.2) mg/dL Indirect Bilirubin 0.3 mg/dL AST 85 H (5-40) units/L ALT 330 H (7-56) units/L Alkaline Phosphatase 201 H (35-129) units/L Total Protein 6.1 L (6.3-8.2) g/dL Albumin 3.5 L (3.9-5) g/dL
--- NOTE | 2020-04-15 12:05 | Progress Note ---
Assessment and Plan Assessment and plan: 75-year-old male with known history of coronary artery disease, diabetes mellitus and CHF with ejection fraction of 15% on echo done in January 2020, Crohn's disease, anemia and osteoarthritis presenting to the emergency room today with shortness of breath and abdominal pain. Symptoms were said to have started today and patient was brought in by EMS. En route to the hospital EMS indicates that patient was in a nonsustained V. tach. Most of the history was given by the ER physician as patient is in some respiratory distress. He was placed on BiPAP upon arrival in the emergency room. Work-up in the emergency room- chest x-ray reveals: Patchy bibasilar airspace opacities, may reflect pulmonary edema or pneumonia. Stable small left pleural effusion and/or pleural scarring. CT abdomen showed d iffuse colitis, bilateral pleural effusions and possible acute appearing compression fracture of T12. Patient was then admitted to the hospital for acute hypoxic respiratory failure, acute on chronic systolic heart failure, colitis and KIRT. Patient started on IV antibiotics and cardiology consulted for ventricular tachycardia. 04/11. Patient seen and examined at bedside this morning. Patient is on BiPAP. Patient is eager to go home. Otherwise denies any chest pain or palpitations. Patient CT showed possible compression fracture of T12, it is unknown if this is new. We will get MRI without contrast of the thoracic and lumbar to further evaluate. If patient actually has an acute compression fracture, he will need to have a neurosurgery evaluation so will need to be transferred to another facility for this. Otherwise, patient continue to monitor patient's respiratory status while in the IMCU. Patient reportedly failed a swallow evaluation and will need to have an NG tube placement. Tried to call son on number provided in the chart and left a message. Awaiting callback. Labs reviewed-patient has elevated inflammatory [id number], LDH. COVID-19 test has been ordered. Started patient on steroids. Ordered stat BMP, ABG, D-dimer, proBNP, ferritin, LDH. 04/12. COVID -19 test is negative. His breathing has improved so was placed on nasal cannula. Cardiology adjusted meds today. He failed swallow evaluation yesterday. He requests for food. Will reattempt swallow evaluation. Speech therapy consult. 04/13. Overnight, he developed VT and was started on amiodarone. HR better this AM. Cardiology will review medications. Patient seen and examined at bedside this AM. He requests for food. He failed a repeat speech evaluation and will need barium swallow. May need PEG placement if he fails. NG tube in place. Vitals reviewed 04/14. Heart rate improved. Remains n.p.o. with NG tube feeds. Video swallow evaluation shows mild abnormal study. Speech therapist to see patient. Patient has not been able to have an MRI of the back due to agitation. He had a CT d uring the admission that showed possible compression fracture of T12 but this has not been fully evaluated due to patient's ongoing conditions. Labs reviewed-renal function is worse. Discontinue Lasix. 04/15. Has been started on a diet and is tolerating. He pulled out his NG tube last night. Okay to leave NG tube for now. Plan to get an MRI performed today with sedative to evaluate T12 fracture. Patient denies any back pain. Renal function slightly improved today after Lasix was discontinued. Continue IV hydration. Nephrology recommendations appreciated Problems 1) Acute respiratory failure Current Visit: Yes Status: Acute Plan to address problem: Slightly improving Has no pneumonia and no sepsis. Continue oxygen supplementation COVID-19 test negative (2) Acute on chronic systolic CHF (congestive heart failure) Current Visit: Yes Status: Acute Plan to address problem: Holding Lasix due to KIRT Will monitor daily weight, inputs and outputs. Monitor renal function closely Cardiology on board (3) KIRT (acute kidney injury) Current Visit: Yes Status: Acute Plan to address problem: Slightly improving Discontinued Lasix. Gentle IV hydration for now Vasomotor nephropathy Nephrology following (4) Colitis Current Visit: Yes Status: Acute Plan to address problem: GI evaluation Will send c.diff if he has diarrhea (5) Nonsustained ventricular tachycardia Current Visit: Yes Status: Acute Plan to address problem: Continue rate control as per cardiology (6) Diabetes mellitus type 2 in nonobese Current Visit: No Status: Acute Plan to address problem: Will monitor accucheks. (7) Hyperkalemia and metabolic acidosis Current Visit: Yes Status: Acute Plan to address problem: Monitor BMP Kayexalate as needed Nephrology following (8) T12 compression fracture Current Visit: No Status: Likely chronic Plan to address problem: CT abdomen showed possible T12 compression fracture MRI thoracic without contrast ordered to further evaluate. Patient is agitated and unable to get an MRI. We will use sedative If positive for acute fracture, patient will need to be transferred for neurosurgery evaluation. (9) Elevated LFTs Current Visit: Yes Status: Acute Plan to address problem: Improving US abdomen shows no acute pathology Trend LFTs (19) DVT prophylaxis Current Visit: No Status: Acute Plan to address problem: Placed on anticoagulation with SQ heparin. (11) Full code status Current Visit: No Status: Acute Active issues Monitor renal function MRI thoracic for evaluation of compression fracture which is most likely old PT/OT pending History Interval history: Patient seen and examined at bedside. Patient has been started on a diet and is tolerating it Heart rate remained stable on current medications Hospitalist Physical - Physical exam Narrative exam: VITAL SIGNS: Reviewed. GENERAL: Awake and alert and responds to questions HEAD: No signs of head trauma. EYES: Pupils are equal. Extraocular motions intact. EARS: Hearing grossly intact. MOUTH: Oropharynx is normal. NECK: No adenopathy, no JVD. CHEST: Chest with rales at the bases CARDIAC: Regular rate and rhythm. S1 and S2, without murmurs, gallops, or rubs. VASCULAR: No Edema. Peripheral pulses normal and equal in all extremities. ABDOMEN: Soft, non tender and non distended. No rebound or guarding, and no masses palpated. Bowel Sounds normal. MUSCULOSKELETAL: Good range of motion of all major joints. Extremities without clubbing, cyanosis or edema. NEUROLOGIC EXAM: Alert. No focal neurologic deficits PSYCHIATRIC: Stable mood SKIN: No obvious lesions - Constitutional Vitals: Temp Pulse Resp BP Pulse Ox 97.2 F L 86 18 121/68 100 04/15/20 04:30 04/15/20 09:21 04/15/20 09:14 04/15/20 09:14 04/15/20 09:21 HEART Score - HEART Score Troponin: Troponin T 0.081 ng/mL (0.00-0.029) H 04/10/20 20:04 Results - Labs CBC & Chem 7: 04/15/20 04:56 04/15/20 04:56 Labs: Laboratory Last Values WBC 11.5 K/mm3 (4.5-11.0) H 04/12/20 06:22 RBC 3.61 M/mm3 (3.65-5.03) L 04/12/20 06:22 Hgb 8.7 gm/dl (11.8-15.2) L 04/15/20 04:56 Hct 27.2 % (35.5-45.6) L 04/15/20 04:56 MCV 77 fl (84-94) L 04/12/20 06:22 MCH 25 pg (28-32) L 04/12/20 06:22 MCHC 33 % (32-34) 04/12/20 06:22 RDW 20.8 % (13.2-15.2) H 04/12/20 06:22 Plt Count 145 K/mm3 (140-440) 04/15/20 04:56 Lymph % (Auto) 10.9 % (13.4-35.0) L 04/10/20 20:04 [place] % (Auto) 6.0 % (0.0-7.3) 04/10/20 20:04 Eos % (Auto) 0.6 % (0.0-4.3) 04/10/20 20:04 Baso % (Auto) 1.0 % (0.0-1.8) 04/10/20 20:04 Lymph # (Auto) 0.8 K/mm3 (1.2-5.4) L 04/10/20 20:04 [place] # (Auto) 0.4 K/mm3 (0.0-0.8) 04/10/20 20:04 Eos # (Auto) 0.0 K/mm3 (0.0-0.4) 04/10/20 20:04 Baso # (Auto) 0.1 K/mm3 (0.0-0.1) 04/10/20 20:04 Add Manual Diff Complete 04/12/20 06:22 Total Counted 100 04/12/20 06:22 Seg Neutrophils % Fashion Consultant Selling 04/12/20 06:22 Seg Neuts % (Manual) 100.0 % (40.0-70.0) H 04/12/20 06:22 Band Neutrophils % 0 % 04/12/20 06:22 Lymphocytes % (Manual) 0 % (13.4-35.0) L 04/12/20 06:22 Reactive Lymphs % (Man) 0 % 04/12/20 06:22 Monocytes % (Manual) 0 % (0.0-7.3) 04/12/20 06:22 Eosinophils % (Manual) 0 % (0.0-4.3) 04/12/20 06:22 Basophils % (Manual) 0 % (0.0-1.8) 04/12/20 06:22 Metamyelocytes % 0 % 04/12/20 06:22 Myelocytes % 0 % 04/12/20 06:22 Promyelocytes % 0 % 04/12/20 06:22 Blast Cells % 0 % 04/12/20 06:22 Nucleated RBC % Not Reportable 04/12/20 06:22 Seg Neutrophils # 6.1 K/mm3 (1.8-7.7) 04/10/20 20:04 Seg Neutrophils # Man 11.5 K/mm3 (1.8-7.7) H 04/12/20 06:22 Band Neutrophils # 0.0 K/mm3 04/12/20 06:22 Lymphocytes # (Manual) 0.0 K/mm3 (1.2-5.4) L 04/12/20 06:22 Abs React Lymphs (Man) 0.0 K/mm3 04/12/20 06:22 Monocytes # (Manual) 0.0 K/mm3 (0.0-0.8) 04/12/20 06:22 Eosinophils # (Manual) 0.0 K/mm3 (0.0-0.4) 04/12/20 06:22 Basophils # (Manual) 0.0 K/mm3 (0.0-0.1) 04/12/20 06:22 Metamyelocytes # 0.0 K/mm3 04/12/20 06:22 Myelocytes # 0.0 K/mm3 04/12/20 06:22 Promyelocytes # 0.0 K/mm3 04/12/20 06:22 Blast Cells # 0.0 K/mm3 04/12/20 06:22 WBC Morphology Not Reportable 04/12/20 06:22 Hypersegmented Neuts Not Reportable 04/12/20 06:22 Hyposegmented Neuts Not Reportable 04/12/20 06:22 Hypogranular Neuts Not Reportable 04/12/20 06:22 Smudge Cells Not Reportable 04/12/20 06:22 Toxic Granulation Not Reportable 04/12/20 06:22 Toxic Vacuolation Not Reportable 04/12/20 06:22 Dohle Bodies Not Reportable 04/12/20 06:22 Pelger-Huet Anomaly Not Reportable 04/12/20 06:22 Barby Rods Not Reportable 04/12/20 06:22 Platelet Estimate Consistent w auto 04/12/20 06:22 Clumped Platelets Not Reportable 04/12/20 06:22 Plt Clumps, EDTA Not Reportable 04/12/20 06:22 Large Platelets Not Reportable 04/12/20 06:22 Giant Platelets Not Reportable 04/12/20 06:22 Platelet Satelliting Not Reportable 04/12/20 06:22 Plt Morphology Comment Not Reportable 04/12/20 06:22 RBC Morphology Not Reportable 04/12/20 06:22 Dimorphic RBCs Not Reportable 04/12/20 06:22 Polychromasia Not Reportable 04/12/20 06:22 Hypochromasia 1+ 04/12/20 06:22 Poikilocytosis Not Reportable 04/12/20 06:22 Anisocytosis 1+ 04/12/20 06:22 Microcytosis Not Reportable 04/12/20 06:22 Macrocytosis Not Reportable 04/12/20 06:22 Spherocytes Not Reportable 04/12/20 06:22 Pappenheimer Bodies Not Reportable 04/12/20 06:22 Sickle Cells Not Reportable 04/12/20 06:22 Target Cells Not Reportable 04/12/20 06:22 Tear Drop Cells Rare 04/12/20 06:22 Ovalocytes Few 04/12/20 06:22 Helmet Cells Not Reportable 04/12/20 06:22 Snell-Hartington Bodies Not Reportable 04/12/20 06:22 Carnegie Rings Not Reportable 04/12/20 06:22 Marcia Cells Few 04/12/20 06:22 Bite Cells Not Reportable 04/12/20 06:22 Crenated Cell Not Reportable 04/12/20 06:22 Elliptocytes Not Reportable 04/12/20 06:22 Acanthocytes (Spur) Not Reportable 04/12/20 06:22 Rouleaux Not Reportable 04/12/20 06:22 Hemoglobin C Crystals Not Reportable 04/12/20 06:22 Schistocytes Rare 04/12/20 06:22 Malaria parasites Not Reportable 04/12/20 06:22 Willie Bodies Not Reportable 04/12/20 06:22 Hem Pathologist Commnt No 04/12/20 06:22 PT 15.5 Sec. (12.2-14.9) H 04/12/20 06:22 INR 1.21 (0.87-1.13) H 04/12/20 06:22 D-Dimer 2029.09 ng/mlDDU (0-234) H 04/11/20 15:11 Heparin Anti-Xa Level 0.35 U.I./ml (0.3-0.7) 04/13/20 05:06 ABG pH 7.425 pH Units (7.350-7.450) 04/11/20 16:25 ABG pCO2 31.8 mm Hg 04/11/20 16:25 ABG pO2 110.8 mm Hg (80.0-90.0) H 04/11/20 16:25 ABG HCO3 20.4 mmol/L (20.0-26.0) 04/11/20 16:25 ABG O2 Saturation 98.1 % (95.0-99.0) 04/11/20 16:25 ABG O2 Content 11.8 (0.0-44) 04/11/20 16:25 ABG Base Excess -3.4 mmol/L (-2.0-3.0) L 04/11/20 16:25 ABG Hemoglobin 8.6 gm/dl (14.0-18.0) L 04/11/20 16:25 ABG Carboxyhemoglobin 1.6 % (0.0-5.0) 04/11/20 16:25 ABG Methemoglobin 0.4 % (0.0-1.5) 04/11/20 16:25 Oxyhemoglobin 96.2 % (95.0-99.0) 04/11/20 16:25 FiO2 44 % 04/11/20 16:25 Sodium 138 mmol/L (137-145) 04/15/20 04:56 Potassium 4.0 mmol/L (3.6-5.0) 04/15/20 04:56 Chloride 100.8 mmol/L (98-107) 04/15/20 04:56 Carbon Dioxide 19 mmol/L (22-30) L 04/15/20 04:56 Anion Gap 22 mmol/L 04/15/20 04:56 BUN 97 mg/dL (9-20) H 04/15/20 04:56 Creatinine 2.9 mg/dL (0.8-1.3) H 04/15/20 04:56 Estimated GFR 21 ml/min 04/15/20 04:56 BUN/Creatinine Ratio 33 % 04/15/20 04:56 Glucose 226 mg/dL (75-100) H 04/15/20 04:56 POC Glucose 127 mg/dL (70-105) H 04/15/20 11:03 Lactic Acid 3.00 mmol/L (0.7-2.0) H* 04/12/20 06:22 Calcium 8.1 mg/dL (8.4-10.2) L 04/15/20 04:56 Phosphorus 5.60 mg/dL (2.5-4.5) H 04/10/20 22:50 Magnesium 2.40 mg/dL (1.7-2.3) H 04/10/20 22:50 Ferritin 135.1 ng/mL (30.0-300.0) 04/11/20 15:11 Total Bilirubin 0.90 mg/dL (0.1-1.2) 04/15/20 04:56 Direct Bilirubin 0.6 mg/dL (0-0.2) H 04/15/20 04:56 Indirect Bilirubin 0.3 mg/dL 04/15/20 04:56 AST 85 units/L (5-40) H 04/15/20 04:56 ALT 330 units/L (7-56) H 04/15/20 04:56 Alkaline Phosphatase 201 units/L (35-129) H 04/15/20 04:56 Lactate Dehydrogenase 664 units/L (91-180) H 04/10/20 20:51 Troponin T 0.081 ng/mL (0.00-0.029) H 04/10/20 20:04 C-Reactive Protein 5.60 mg/dL (0.00-1.30) H 04/10/20 20:51 NT-Pro-B Natriuret Pep > 73875 pg/mL (0-900) H 04/11/20 15:11 Total Protein 6.1 g/dL (6.3-8.2) L 04/15/20 04:56 Albumin 3.5 g/dL (3.9-5) L 04/15/20 04:56 Albumin/Globulin Ratio 1.3 % 04/15/20 04:56 Triglycerides 113 mg/dL (2-149) 04/10/20 20:04 Cholesterol 178 mg/dL (50-199) 04/10/20 20:04 LDL Cholesterol Direct 123 mg/dL (50-130) 04/10/20 20:04 HDL Cholesterol 41 mg/dL (40-59) 04/10/20 20:04 Cholesterol/HDL Ratio 4.34 % 04/10/20 20:04 Procalcitonin 2.47 ng/mL (<0.15) 04/11/20 15:11 TSH 3.640 mlU/mL (0.270-4.200) 04/13/20 10:06 Urine Color Yellow (Yellow) 04/11/20 Unknown Urine Turbidity Clear (Clear) 04/11/20 Unknown Urine pH 5.0 (5.0-7.0) 04/11/20 Unknown Ur Specific Harris 1.009 (1.003-1.030) 04/11/20 Unknown Urine Protein <15 mg/dl mg/dL (Negative) 04/11/20 Unknown Urine Glucose (UA) Neg mg/dL (Negative) 04/11/20 Unknown Urine Ketones Neg mg/dL (Negative) 04/11/20 Unknown Urine Blood Neg (Negative) 04/11/20 Unknown Urine Nitrite Neg (Negative) 04/11/20 Unknown Urine Bilirubin Neg (Negative) 04/11/20 Unknown Urine Urobilinogen < 2.0 mg/dL (<2.0) 04/11/20 Unknown Ur Leukocyte Esterase Neg (Negative) 04/11/20 Unknown Urine WBC (Auto) 1.0 /HPF (0.0-6.0) 04/11/20 Unknown Urine RBC (Auto) 2.0 /HPF (0.0-6.0) 04/11/20 Unknown U Epithel Cells (Auto) < 1.0 /HPF (0-13.0) 04/11/20 Unknown Hyaline Casts 3 /LPF 04/11/20 Unknown Urine Mucus Few /HPF 04/11/20 Unknown Urine Eosinophils None seen (None Seen) 04/11/20 Unknown Urine Creatinine 35.3 mg/dL (0.1-20.0) H 04/11/20 Unknown Urine Sodium 92 mmol/L 04/11/20 Unknown Coronavirus (PCR) Negative (Negative) 04/11/20 Unknown Hepatitis A IgM Ab Non-reactive (NonReactive) 04/12/20 20:23 Hep Bs Antigen Non-reactive (Negative) 04/12/20 20:23 Hep B Core IgM Ab Non-reactive (NonReactive) 04/12/20 20:23 Hepatitis C Antibody Non-reactive (NonReactive) 04/12/20 20:23 Microbiology: Microbiology 04/10/20 20:11 Peripheral/Venous Blood Culture - Preliminary NO GROWTH AFTER 4 DAYS 04/10/20 20:04 Peripheral/Venous Blood Culture - Preliminary NO GROWTH AFTER 4 DAYS 04/12/20 08:47 Nares - Left MRSA Culture - Final Gay/IV: Voiding Method Condom Catheter IV Catheter Type [Right Upper INT / Saline Lock arm] IV Catheter Type [Left Wrist] Peripheral IV IV Catheter Type [Right INT / Saline Lock Forearm] IV Catheter Type [Right Wrist] INT / Saline Lock Active Medications - Current Medications Current Medications: Generic Name Dose Route Start Last Admin Trade Name Freq PRN Reason Stop Dose Admin Acetaminophen 650 mg 04/11/20 01:26 Tylenol PO Q6H PRN Pain MILD(1-3)/Fever >100.5/MANCILLA Albuterol/Ipratropium 1 ampul 04/11/20 02:00 04/15/20 08:23 Duoneb *Not For Prn Use* IH 1 ampul Q6HRT PRAVIN Administration Lipase/Protease/Amylase 1 each 04/11/20 14:22 Pancremiley Saenz 10,500 Unit FEEDTUBE PRN PRN For Clogged Feeding Tube Heparin Sodium (Porcine) 5,000 unit 04/13/20 14:00 04/15/20 05:16 Heparin SUB-Q 5,000 unit Q8HR PRAVIN Administration Lactated Ringer's 1,000 mls @ 42 mls/hr 04/14/20 09:00 04/14/20 09:00 Lactated Ringers IV 42 mls/hr DIRECT PRAVIN Administration Insulin Human Lispro 0 unit 04/12/20 00:00 04/15/20 05:27 Humalog SUB-Q 3 unit Q6H PRAVIN Administration Protocol Magnesium Hydroxide 30 ml 04/11/20 01:26 Milk Of Magnesia PO Q4H PRN Constipation Methylprednisolone Sodium Succinate 40 mg 04/13/20 10:00 04/15/20 10:27 Solu-Medrol IV 40 mg Q12HR PRAVIN Administration Metoprolol Tartrate 25 mg 04/13/20 18:00 04/15/20 05:16 Metoprolol PO 25 mg Q6HR PRAVIN Administration Simple Syrup 15 ml 04/11/20 14:22 Simple Syrup FEEDTUBE PRN PRN Hypoglycemia Simple Syrup 30 ml 04/11/20 14:22 Simple Syrup FEEDTUBE PRN PRN Hypoglycemia Sodium Bicarbonate 325 mg 04/11/20 14:22 Sodium Bicarbonate FEEDTUBE PRN PRN For Clogged Feeding Tube Sodium Chloride 10 ml 04/11/20 10:00 04/15/20 10:27 Sodium Chloride Flush Syringe 10 Ml IV 10 ml BID PRAVIN Administration Sodium Chloride 10 ml 04/11/20 01:26 Sodium Chloride Flush Syringe 10 Ml IV PRN PRN LINE FLUSH Nutrition/Malnutrition Assess - Dietary Evaluation Nutrition/Malnutrition Findings: Nutrition Notes Start: 04/11/20 13:4 1 Freq: Status: Active Protocol: Document 04/13/20 12:38 BERNIE (Rec: 04/13/20 12:43 BERNIE [id number]) Co-Sign 04/13/20 12:38 TRINITY Nutrition Notes Initial or Follow up Reassessment Current Diagnosis Acute Kidney Injury,COPD, Coronary Artery Disease, Diabetes,Hypertension,Heart Failure Other Pertinent Diagnosis MO, Crohn's disease, seizure, colitis Current Diet Nepro 1.8 at 35 ml/hr Labs/Tests Na 135 BUN 59 Cr 2.2 BG 256 Pertinent Medications Solu-Medrol Height 5 ft 7 in Weight 65.4 kg [place] Body Weight (kg) 67.27 BMI 22.6 Weight Status Underweight Subjective/Other Information F/U for TF start/tolerance. Unable to speak to pt, pt yelling at time of visit. Per chart, pt tolerating TF at goal yesterday. Per RN, pt is agitated and pulled out TF. Percent of energy/protein needs met: 0%/0% Burn Absent Trauma Absent Difficulty In Swallowing,Chewing Minimum of two criteria No #1 Nutrition Diagnosis Inadequate oral intake Diagnosis Progress(for reassessment Continues documentation) Is patient on ventilator? No Is Patient Ambulatory and/or Out of Bed No REE-([place]-confined to bed) [phone] Calculation Used for Recommendations [facility] Additional Notes Protein Needs: 52-78 g (0.8-1. 2 g/kg) Fluid Needs: 1 mL/kcal Nutrition Intervention Change Diet Order: TF restart Nutrition Support: Nepro 1.8 at 35 mL/hr. Flush 150 mL q4h Kcal 1,512 Protein (gm) 68 Fluid (mL) 611 Fiber (gm) 12 Goal #1 TF restart Goal #2 Meet at least 75% of estimated energy and protein needs via TF Anticipated Discharge Needs: Unable to determine at this time Follow-Up By: 04/17/20 Additional Comments F/U for TF restart/tolerance
--- NOTE | 2020-04-15 13:22 | Gastroenterology Progress Note ---
Assessment and Plan - Patient Problems (1) Crohn's disease Current Visit: Yes Status: Acute Plan to address problem: - ileocolonic Crohns disease - last colonoscopy in 12/2018 showing diffuse small pseudopolyps throughout the colon, patchy erythema in the left colon. Noted to have noncompliance with follow up. Currently not on any medication for Crohns disease. - CT in the ED showed diffuse wall thickening and fat stranding involving descending and sigmoid colon. - colitis, possible Crohns flare up vs infectious colitis, vs ischemic colitis - no clinical symptoms to correlate including abdominal pain, diarrhea. - on pureed diet. Rec - currently on steroids for COPD exacerbation. - if having diarrhea, obtain stool studies to rule out C diff. - supportive care. - no new inpatient GI recommendations. - will sign off. please call as needed. (2) Elevated liver enzymes Current Visit: Yes Status: Acute Plan to address problem: - elevated AST and ALT, which are trending down slowly. - ddx including ischemic injury vs medication induced. was on amiodarone, which was stopped. - acute hepatitis panel negative - CT a/p showed normal liver - avoid hepatotoxic medications. - no new inpatient GI recommendations. Subjective Date of service: 04/15/20 Interval history: Patient still confused and in restraints. No reports of diarrhea. Objective - Constitutional Vitals: Temp Pulse Resp BP Pulse Ox 97.2 F L 86 18 121/68 100 04/15/20 04:30 04/15/20 09:21 04/15/20 09:14 04/15/20 09:14 04/15/20 09:21 General appearance: no acute distress - EENT Eyes: EOM intact ENT: hearing intact - Respiratory Respiratory effort: normal Respiratory: bilateral: CTA - Cardiovascular Rhythm: regular Heart Sounds: Present: S1 & S2 - Gastrointestinal General gastrointestinal: Present: soft, non-tender, non-distended - Labs CBC & Chem 7: 04/15/20 04:56 04/15/20 04:56 Labs: Laboratory Results - last 24 hr 04/14/20 04/14/20 04/15/20 16:50 23:55 04:56 Hgb 8.7 L Hct 27.2 L Plt Count 145 Sodium 139 D Potassium 4.5 D Chloride 99.1 Carbon Dioxide 22 D Anion Gap 22 BUN 93 H Creatinine 3.1 H Estimated GFR 20 BUN/Creatinine Ratio 30 Glucose 226 H POC Glucose 293 H Calcium 8.3 L Total Bilirubin Direct Bilirubin Indirect Bilirubin AST ALT Alkaline Phosphatase Total Protein Albumin Albumin/Globulin Ratio 04/15/20 04/15/20 04/15/20 04:56 04:56 05:25 Hgb Hct Plt Count Sodium 138 Potassium 4.0 Chloride 100.8 Carbon Dioxide 19 L Anion Gap 22 BUN 97 H Creatinine 2.9 H Estimated GFR 21 BUN/Creatinine Ratio 33 Glucose 226 H POC Glucose 209 H Calcium 8.1 L Total Bilirubin 0.90 Direct Bilirubin 0.6 H Indirect Bilirubin 0.3 AST 85 H ALT 330 H Alkaline Phosphatase 201 H Total Protein 6.1 L Albumin 3.5 L Albumin/Globulin Ratio 1.3 04/15/20 11:03 Hgb Hct Plt Count Sodium Potassium Chloride Carbon Dioxide Anion Gap BUN Creatinine Estimated GFR BUN/Creatinine Ratio Glucose POC Glucose 127 H Calcium Total Bilirubin Direct Bilirubin Indirect Bilirubin AST ALT Alkaline Phosphatase Total Protein Albumin Albumin/Globulin Ratio
--- NOTE | 2020-04-15 13:42 | Progress Note ---
Assessment and Plan 1. Acute kidney injury: Vasomotor KIRT superimposed on CKD. CT abdomen negative for hydro. Monitor renal function. Creatinine level is about the same as yesterday. On IV fluids. Renal prognosis is guarded. Avoid nephrotoxic agents. Meds dosage based on GFR. 2. FEN: Hyperkalemia, improved, monitor. Anion-gap metabolic acidosis, 2/2 KIRT / CKD, monitor. Sod bicarbonate as needed. Monitor lytes and volume status. 3. Acute hypoxic respiratory failure: Was on BIPAP. Possibly secondary to the CHF and underlying pneumonia. COVID-19 test negative. 4. Chronic CHF: Monitor daily weight, inputs and outputs. Followed by Cards. 5. Colitis: Monitor. Seen by GI. 6. Anemia, POA: Monitor. 7. Elevated Transaminases: Monitor. 8. DM type 2. 9. HTN: Monitor BP. Subjective: Patient was seen and examined at the bedside. Doing ok. Examination: General appearance: well-developed, appears stated age, on restrains HEENT: ATNC, pupils equal Neck: trachea midline Respiratory: ctab Heart: regular, S1S2, no murmur Gastrointestinal: soft, normoactive bowel sounds, not tender Integumentary: no rash, warm and dry Neurologic: alert, conversing, appears oriented, moving extremities Ext: no edema Subjective Date of service: 04/15/20 Objective - Vital Signs Vital signs: Vital Signs - 12hr 04/15/20 04/15/20 04/15/20 02:30 04:30 08:23 Temperature 97.2 F L Pulse Rate 76 Pulse Rate [ 70 Posterior Bilateral Throughout] Pulse Rate [ 71 Throughout] Respiratory 17 Rate Respiratory 21 Rate [Posterior Bilateral Throughout] Respiratory 18 Rate [ Throughout] Blood Pressure 121/64 O2 Sat by Pulse 94 Oximetry 04/15/20 04/15/20 04/15/20 08:29 09:14 09:21 Temperature Pulse Rate 73 86 Pulse Rate [ Posterior Bilateral Throughout] Pulse Rate [ Throughout] Respiratory 18 Rate Respiratory Rate [Posterior Bilateral Throughout] Respiratory Rate [ Throughout] Blood Pressure 121/68 O2 Sat by Pulse 99 100 100 Oximetry 04/15/20 10:00 Temperature Pulse Rate Pulse Rate [ Posterior Bilateral Throughout] Pulse Rate [ Throughout] Respiratory 18 Rate Respiratory Rate [Posterior Bilateral Throughout] Respiratory Rate [ Throughout] Blood Pressure O2 Sat by Pulse Oximetry - Lab 04/15/20 04:56 04/15/20 04:56 Most recent lab results ABG pH 7.425 pH Units (7.350-7.450) 04/11/20 16:25 ABG pCO2 31.8 mm Hg 04/11/20 16:25 ABG pO2 110.8 mm Hg (80.0-90.0) H 04/11/20 16:25 ABG HCO3 20.4 mmol/L (20.0-26.0) 04/11/20 16:25 ABG O2 Saturation 98.1 % (95.0-99.0) 04/11/20 16:25 Calcium 8.1 mg/dL (8.4-10.2) L 04/15/20 04:56 Phosphorus 5.60 mg/dL (2.5-4.5) H 04/10/20 22:50 Magnesium 2.40 mg/dL (1.7-2.3) H 04/10/20 22:50 Urine Creatinine 35.3 mg/dL (0.1-20.0) H 04/11/20 Unknown Urine Sodium 92 mmol/L 04/11/20 Unknown Medications & Allergies - Medications Allergies/Adverse Reactions: Allergies Sulfa (Sulfonamide Antibiotics) Allergy (Verified 07/30/18 17:44) Rash Home Medications: Home Medications Medication Instructions Recorded Confirmed Last Taken Type Gabapentin 300 mg PO BID 09/19/16 01/29/20 09/18/16 History 300 mg Metformin HCl [metFORMIN ER 500 mg PO BIDWM 03/28/17 01/29/20 Unknown History Gastric] AtorvaSTATin 10 mg PO QHS #30 tablet 12/21/17 01/29/20 Unknown Rx Ranolazine ER [Ranexa ER] 500 mg PO BID #60 tablet 12/21/17 01/29/20 Unknown Rx Aspirin 325 mg PO QDAY #30 tablet 01/12/18 01/29/20 Unknown Rx Diphenoxylate/Atropine [Lomotil] 1 tab PO Q8H PRN 01/15/18 01/29/20 Unknown History Insulin Lispro [HumaLOG VIAL] See Protocol SQ ACHS 01/15/18 01/29/20 Unknown History Promethazine [Phenergan] 25 mg PO Q4H PRN 01/15/18 01/29/20 Unknown History Albuterol Mdi (or & Nicu Only) 2 puff IH Q4HR PRN #1 inhalation 12/21/18 01/29/20 Unknown Rx [ProAir HFA Inhaler] Furosemide [Lasix TAB] 20 mg PO QDAY #30 tablet 02/03/20 Unknown Rx Metoprolol Xl [Metoprolol 25 mg PO DAILY #60 tablet 02/03/20 Unknown Rx SUCCINATE ER TAB] levETIRAcetam [Keppra TAB] 500 mg PO BID #120 tablet 02/03/20 Unknown Rx levoFLOXacin [Levaquin TAB] 500 mg PO QDAY #5 tablet 02/03/20 Unknown Rx Active Medications: Generic Name Dose Route Start Last Admin Trade Name Freq PRN Reason Stop Dose Admin Acetaminophen 650 mg 04/11/20 01:26 Tylenol PO Q6H PRN Pain MILD(1-3)/Fever >100.5/MANCILLA Albuterol/Ipratropium 1 ampul 04/11/20 02:00 04/15/20 08:23 Duoneb *Not For Prn Use* IH 1 ampul Q6HRT PRAVIN Administration Lipase/Protease/Amylase 1 each 04/11/20 14:22 Pancreaze 10,500 Unit FEEDTUBE PRN PRN For Clogged Feeding Tube Heparin Sodium (Porcine) 5,000 unit 04/13/20 14:00 04/15/20 05:16 Heparin SUB-Q 5,000 unit Q8HR PRAVIN Administration Lactated Ringer's 1,000 mls @ 42 mls/hr 04/14/20 09:00 04/14/20 09:00 Lactated Ringers IV 42 mls/hr DIRECT PRAVIN Administration Insulin Human Lispro 0 unit 04/12/20 00:00 04/15/20 05:27 Humalog SUB-Q 3 unit Q6H PRAVIN Administration Protocol Magnesium Hydroxide 30 ml 04/11/20 01:26 Milk Of Magnesia PO Q4H PRN Constipation Methylprednisolone Sodium Succinate 40 mg 04/13/20 10:00 04/15/20 10:27 Solu-Medrol IV 40 mg Q12HR PRAVIN Administration Metoprolol Tartrate 25 mg 04/13/20 18:00 04/15/20 12:29 Metoprolol PO 25 mg Q6HR PRAVIN Administration Simple Syrup 15 ml 04/11/20 14:22 Simple Syrup FEEDTUBE PRN PRN Hypoglycemia Simple Syrup 30 ml 04/11/20 14:22 Simple Syrup FEEDTUBE PRN PRN Hypoglycemia Sodium Bicarbonate 325 mg 04/11/20 14:22 Sodium Bicarbonate FEEDTUBE PRN PRN For Clogged Feeding Tube Sodium Chloride 10 ml 04/11/20 10:00 04/15/20 10:27 Sodium Chloride Flush Syringe 10 Ml IV 10 ml BID PRAVIN Administration Sodium Chloride 10 ml 04/11/20 01:26 Sodium Chloride Flush Syringe 10 Ml IV PRN PRN LINE FLUSH
[2020-04-16] MEDS: INSULIN LISPRO 100 UNIT/ML VIAL 3 mL SUB-Q SCH ×4 (00:56→22:46)
[2020-04-16] MEDS: METOPROLOL TARTRATE 25 MG TAB PO SCH ×4 (00:56→18:07)
[2020-04-16] MEDS: IPRATROPIUM/ALBUTEROL SULFATE 3 ML AMPUL.NEB IH SCH ×4 (05:08→20:14)
[2020-04-16] MEDS: HEPARIN 5,000 UNIT/1 ML VIAL SUB-Q SCH ×3 (06:36→22:13)
[2020-04-16 08:12] LABS: Albumin 3.4 g/dL (3.9-5); Calcium 7.9 mg/dL (8.4-10.2)
[2020-04-16 08:20] LABS: Hematocrit 28.8 % (35.5-45.6); Hemoglobin 9.1 gm/dl (11.8-15.2); Mean Corpuscular HGB Conc 32 % (32-34); Mean Corpuscular Volume 78 fl (84-94); Platelet Count 138 K/mm3 (140-440)
[2020-04-16 08:23] LABS: Red Cell Distribution Width 21.4 % (13.2-15.2)
[2020-04-16 09:35] LABS: Basophils % (Manual) 0 % (0.0-1.8); Eosinophils % (Manual) 0 % (0.0-4.3); Total Cells Counted 100
[2020-04-16 09:37] LABS: Giant Platelets Few; Hypochromasia Few; Target Cells 1+; Tear Drop Cells Few
[2020-04-16 09:38] LABS: Platelet Estimate Consistent w Auto
--- NOTE | 2020-04-16 09:43 | Progress Note ---
Assessment and Plan - Patient Problems (1) Chronic left ventricular systolic heart failure Current Visit: Yes Status: Acute Plan to address problem: We will continue guideline directed medical therapy for chronic systolic left ventricular dysfunction. (2) Paroxysmal atrial fibrillation Current Visit: Yes Status: Acute Plan to address problem: Amiodarone was discontinued due to elevated liver enzymes, but patient is on beta-blockers. During this admission, we will need to consider the patient's risks and benefits for long-term oral anticoagulation for stroke prophylaxis. (3) Coronary artery disease Current Visit: Yes Status: Acute Plan to address problem: Patient has history of coronary artery disease with stents in the proximal circumflex and mid right coronary artery, both patent on repeat cardiac catheterization 2 years ago. He is on medical therapy for small vessel disease, and currently asymptomatic for chest pain. We will continue medical therapy and risk factor modification. Subjective Date of service: 04/16/20 Interval history: Patient is comfortable, no new cardiac complaints, no chest pain and no shortness of breath. He is on 2 point restraints.. Objective Vital Signs Temp Pulse Pulse Pulse Resp Resp Resp 04/16/20 06:36 88 04/16/20 03:25 98.2 F 60 20 04/16/20 00:56 107 H 04/16/20 00:40 105 H 04/16/20 00:39 97.3 F L 105 H 20 04/15/20 22:00 70 22 04/15/20 20:45 97.9 F 70 20 04/15/20 20:40 74 20 04/15/20 17:51 72 04/15/20 17:17 78 18 04/15/20 14:55 114 H 20 04/15/20 10:00 98 F 77 18 BP Pulse Ox 04/16/20 06:36 102/61 04/16/20 03:25 102/61 100 04/16/20 00:56 117/67 04/16/20 00:40 100 04/16/20 00:39 117/67 100 04/15/20 22:00 04/15/20 20:45 102/58 98 04/15/20 20:40 97 04/15/20 17:51 123/67 04/15/20 17:17 108/51 99 04/15/20 14:55 04/15/20 10:00 - Physical Examination General: No Apparent Distress HEENT: Positive: PERRL Neck: Positive: trachea midline Cardiac: Positive: Reg Rate and Rhythm Lungs: Positive: Decreased Breath Sounds Neuro: Positive: Weakness Abdomen: Positive: Soft Skin: Positive: Clear Extremities: Absent: edema - Labs and Meds Cardiac Enzymes 04/16/20 Range/Units 07:12 AST 58 H (5-40) units/L CBC 04/16/20 Range/Units 07:12 WBC 8.0 (4.5-11.0) K/mm3 RBC 3.70 (3.65-5.03) M/mm3 Hgb 9.1 L (11.8-15.2) gm/dl Hct 28.8 L (35.5-45.6) % Plt Count 138 L (140-440) K/mm3 Comprehensive Metabolic Panel 04/16/20 Range/Units 07:12 Sodium 141 (137-145) mmol/L Potassium 4.2 (3.6-5.0) mmol/L Chloride 98.9 (98-107) mmol/L Carbon Dioxide 22 (22-30) mmol/L BUN 106 H (9-20) mg/dL Creatinine 3.1 H (0.8-1.3) mg/dL Glucose 219 H (75-100) mg/dL Calcium 7.9 L (8.4-10.2) mg/dL AST 58 H (5-40) units/L ALT 247 H (7-56) units/L Alkaline Phosphatase 150 H (35-129) units/L Total Protein 6.1 L (6.3-8.2) g/dL Albumin 3.4 L (3.9-5) g/dL
--- NOTE | 2020-04-16 12:41 | Progress Note ---
Assessment and Plan 1. Acute kidney injury: Vasomotor KIRT superimposed on CKD. CT abdomen negative for hydro. Monitor renal function. Creatinine level fluctuates. Renal prognosis is guarded. Avoid nephrotoxic agents. Meds dosage based on GFR. 2. FEN: Hyperkalemia, improved, monitor. Anion-gap metabolic acidosis, 2/2 KIRT / CKD, monitor. Sod bicarbonate as needed. Monitor lytes and volume status. 3. Acute hypoxic respiratory failure: Was on BIPAP. Possibly secondary to the CHF and underlying pneumonia. COVID-19 test negative. 4. Chronic CHF: Monitor daily weight, intake and outputs. Followed by Cards. 5. Colitis: Monitor. Seen by GI. 6. Anemia, POA: Monitor. 7. Elevated Transaminases: Monitor. 8. DM type 2. 9. HTN: Monitor BP. Subjective: Patient was seen and examined at the bedside. Examination: General appearance: well-developed, appears stated age, on restrains HEENT: ATNC, pupils equal Neck: trachea midline Respiratory: ctab Heart: regular, S1S2, no murmur Gastrointestinal: soft, normoactive bowel sounds, not tender Integumentary: no rash, warm and dry Neurologic: lethargic, non-verbal, moving extremities Ext: no edema Subjective Date of service: 04/16/20 Objective - Vital Signs Vital signs: Vital Signs - 12hr 04/16/20 04/16/20 04/16/20 00:56 03:25 06:36 Temperature 98.2 F Pulse Rate 107 H 60 88 Respiratory 20 Rate Blood Pressure 117/67 102/61 102/61 O2 Sat by Pulse 100 Oximetry - Lab 04/16/20 07:12 04/16/20 07:12 Most recent lab results ABG pH 7.425 pH Units (7.350-7.450) 04/11/20 16:25 ABG pCO2 31.8 mm Hg 04/11/20 16:25 ABG pO2 110.8 mm Hg (80.0-90.0) H 04/11/20 16:25 ABG HCO3 20.4 mmol/L (20.0-26.0) 04/11/20 16:25 ABG O2 Saturation 98.1 % (95.0-99.0) 04/11/20 16:25 Calcium 7.9 mg/dL (8.4-10.2) L 04/16/20 07:12 Phosphorus 5.60 mg/dL (2.5-4.5) H 04/10/20 22:50 Magnesium 2.40 mg/dL (1.7-2.3) H 04/10/20 22:50 Urine Creatinine 35.3 mg/dL (0.1-20.0) H 04/11/20 Unknown Urine Sodium 92 mmol/L 04/11/20 Unknown Medications & Allergies - Medications Allergies/Adverse Reactions: Allergies Sulfa (Sulfonamide Antibiotics) Allergy (Verified 07/30/18 17:44) Rash Home Medications: Home Medications Medication Instructions Recorded Confirmed Last Taken Type Gabapentin 300 mg PO BID 09/19/16 01/29/20 09/18/16 History 300 mg Metformin HCl [metFORMIN ER 500 mg PO BIDWM 03/28/17 01/29/20 Unknown History Gastric] AtorvaSTATin 10 mg PO QHS #30 tablet 12/21/17 01/29/20 Unknown Rx Ranolazine ER [Ranexa ER] 500 mg PO BID #60 tablet 12/21/17 01/29/20 Unknown Rx Aspirin 325 mg PO QDAY #30 tablet 01/12/18 01/29/20 Unknown Rx Diphenoxylate/Atropine [Lomotil] 1 tab PO Q8H PRN 01/15/18 01/29/20 Unknown History Insulin Lispro [HumaLOG VIAL] See Protocol SQ ACHS 01/15/18 01/29/20 Unknown History Promethazine [Phenergan] 25 mg PO Q4H PRN 01/15/18 01/29/20 Unknown History Albuterol Mdi (or & Nicu Only) 2 puff IH Q4HR PRN #1 inhalation 12/21/18 01/29/20 Unknown Rx [ProAir HFA Inhaler] Furosemide [Lasix TAB] 20 mg PO QDAY #30 tablet 02/03/20 Unknown Rx Metoprolol Xl [Metoprolol 25 mg PO DAILY #60 tablet 02/03/20 Unknown Rx SUCCINATE ER TAB] levETIRAcetam [Keppra TAB] 500 mg PO BID #120 tablet 02/03/20 Unknown Rx levoFLOXacin [Levaquin TAB] 500 mg PO QDAY #5 tablet 02/03/20 Unknown Rx Active Medications: Generic Name Dose Route Start Last Admin Trade Name Freq PRN Reason Stop Dose Admin Acetaminophen 650 mg 04/11/20 01:26 Tylenol PO Q6H PRN Pain MILD(1-3)/Fever >100.5/MANCILLA Albuterol/Ipratropium 1 ampul 04/11/20 02:00 04/16/20 07:46 Duoneb *Not For Prn Use* IH 1 ampul Q6HRT PRAVIN Administration Lipase/Protease/Amylase 1 each 04/11/20 14:22 Pancremiley Saenz 10,500 Unit FEEDTUBE PRN PRN For Clogged Feeding Tube Heparin Sodium (Porcine) 5,000 unit 04/13/20 14:00 04/16/20 06:36 Heparin SUB-Q 5,000 unit Q8HR PRAVIN Administration Insulin Human Lispro 0 unit 04/12/20 00:00 04/16/20 06:35 Humalog SUB-Q 300 unit Q6H PRAVIN Administration Protocol Magnesium Hydroxide 30 ml 04/11/20 01:26 Milk Of Magnesia PO Q4H PRN Constipation Methylprednisolone Sodium Succinate 40 mg 04/13/20 10:00 04/15/20 21:29 Solu-Medrol IV 40 mg Q12HR PRAVIN Administration Metoprolol Tartrate 25 mg 04/13/20 18:00 04/16/20 06:36 Metoprolol PO 25 mg Q6HR PRAVIN Administration Simple Syrup 15 ml 04/11/20 14:22 Simple Syrup FEEDTUBE PRN PRN Hypoglycemia Simple Syrup 30 ml 04/11/20 14:22 Simple Syrup FEEDTUBE PRN PRN Hypoglycemia Sodium Bicarbonate 325 mg 04/11/20 14:22 Sodium Bicarbonate FEEDTUBE PRN PRN For Clogged Feeding Tube Sodium Chloride 10 ml 04/11/20 10:00 04/16/20 09:51 Sodium Chloride Flush Syringe 10 Ml IV 10 ml BID PRAVIN Administration Sodium Chloride 10 ml 04/11/20 01:26 Sodium Chloride Flush Syringe 10 Ml IV PRN PRN LINE FLUSH
--- NOTE | 2020-04-16 14:12 | Progress Note ---
Assessment and Plan Assessment and plan: 75-year-old male with known history of coronary artery disease, diabetes mellitus and CHF with ejection fraction of 15% on echo done in January 2020, Crohn's disease, anemia and osteoarthritis presenting to the emergency room today with shortness of breath and abdominal pain. Symptoms were said to have started today and patient was brought in by EMS. En route to the hospital EMS indicates that patient was in a nonsustained V. tach. Most of the history was given by the ER physician as patient is in some respiratory distress. He was placed on BiPAP upon arrival in the emergency room. Work-up in the emergency room- chest x-ray reveals: Patchy bibasilar airspace opacities, may reflect pulmonary edema or pneumonia. Stable small left pleural effusion and/or pleural scarring. CT abdomen showed d iffuse colitis, bilateral pleural effusions and possible acute appearing compression fracture of T12. Patient was then admitted to the hospital for acute hypoxic respiratory failure, acute on chronic systolic heart failure, colitis and KIRT. Patient started on IV antibiotics and cardiology consulted for ventricular tachycardia. 04/11. Patient seen and examined at bedside this morning. Patient is on BiPAP. Patient is eager to go home. Otherwise denies any chest pain or palpitations. Patient CT showed possible compression fracture of T12, it is unknown if this is new. We will get MRI without contrast of the thoracic and lumbar to further evaluate. If patient actually has an acute compression fracture, he will need to have a neurosurgery evaluation so will need to be transferred to another facility for this. Otherwise, patient continue to monitor patient's respiratory status while in the IMCU. Patient reportedly failed a swallow evaluation and will need to have an NG tube placement. Tried to call son on number provided in the chart and left a message. Awaiting callback. Labs reviewed-patient has elevated inflammatory [id number], LDH. COVID-19 test has been ordered. Started patient on steroids. Ordered stat BMP, ABG, D-dimer, proBNP, ferritin, LDH. 04/12. COVID -19 test is negative. His breathing has improved so was placed on nasal cannula. Cardiology adjusted meds today. He failed swallow evaluation yesterday. He requests for food. Will reattempt swallow evaluation. Speech therapy consult. 04/13. Overnight, he developed VT and was started on amiodarone. HR better this AM. Cardiology will review medications. Patient seen and examined at bedside this AM. He requests for food. He failed a repeat speech evaluation and will need barium swallow. May need PEG placement if he fails. NG tube in place. Vitals reviewed 04/14. Heart rate improved. Remains n.p.o. with NG tube feeds. Video swallow evaluation shows mild abnormal study. Speech therapist to see patient. Patient has not been able to have an MRI of the back due to agitation. He had a CT d uring the admission that showed possible compression fracture of T12 but this has not been fully evaluated due to patient's ongoing conditions. Labs reviewed-renal function is worse. Discontinue Lasix. 04/15. Has been started on a diet and is tolerating. He pulled out his NG tube last night. Okay to leave NG tube for now. Plan to get an MRI performed today with sedative to evaluate T12 fracture. Patient denies any back pain. Renal function slightly improved today after Lasix was discontinued. Continue IV hydration. Nephrology recommendations appreciated 04/16. He feels better today. MRI could not be done yesterday. Hopefully patient can have an MRI done today. Creatinine 3.1 today. Patient will need placement but will need to have evaluation of possible T12 fracture prior to discharge Problems ---Acute respiratory failure Current Visit: Yes Status: Acute Plan to address problem: Slightly improving Has no pneumonia and no sepsis. Continue oxygen supplementation COVID-19 test negative --Acute on chronic systolic CHF (congestive heart failure) Current Visit: Yes Status: Acute Plan to address problem: Holding Lasix due to KIRT Will monitor daily weight, inputs and outputs. Monitor renal function closely Cardiology on board --KIRT (acute kidney injury) Current Visit: Yes Status: Acute Plan to address problem: Creatinine stable at 3.1 Discontinued Lasix. Continue gentle IV hydration for now Vasomotor nephropathy Nephrology following --Colitis Current Visit: Yes Status: Acute Plan to address problem: Resolved GI recommendations appreciated --Nonsustained ventricular tachycardia Current Visit: Yes Status: Acute Plan to address problem: Initially started on amiodarone but discontinued due to elevated LFTs Now on metoprolol every 6 and rate is currently controlled. Cardiology recommendations appreciated --Diabetes mellitus type 2 in nonobese Current Visit: No Status: Acute Plan to address problem: Lantus and sliding scale insulin. --Hyperkalemia and metabolic acidosis Current Visit: Yes Status: Acute Plan to address problem: Resolved --T12 compression fracture Current Visit: No Status: Likely chronic Plan to address problem: CT abdomen showed acute appearing T12 compression fracture 04/14. MRI thoracic without contrast ordered to further evaluate. 04/15. Patient is agitated and unable to get an MRI. 04/16. Awaiting MRI without contrast thoracic. Plan to use sedatives today. Informed RN. If positive for acute fracture, patient will need to be transferred for neurosurgery evaluation. ---Elevated LFTs Current Visit: Yes Status: Acute Plan to address problem: Improving US abdomen shows no acute pathology Trend LFTs ---Infrarenal aortic aneurysm Current Visit: No Status: Acute Plan to address problem: 3.8 cm in diameter Needs to follow-up with vascular surgery at discharge for monitoring -Anemia and thrombocytopenia Current Visit: No Status: Acute Plan to address problem: Monitor platelets ?HIT - Hold heparin for now Peripheral smear reviewed - target cells, tear drops. Hematology consulted -- DVT prophylaxis Current Visit: No Status: Acute Plan to address problem: Hold heparin for now. --Full code status Current Visit: No Status: Acute History Interval history: Patient seen and examined at bedside. Has no complaints. Labs reviewed. Cr 3.1 CBC shows low platelets - peripheral smear - target, tear drop cells. Will consult heme ?myelofibrosis Hospitalist Physical - Physical exam Narrative exam: VITAL SIGNS: Reviewed. GENERAL: Awake and alert and responds to questions HEAD: No signs of head trauma. EYES: Pupils are equal. Extraocular motions intact. EARS: Hearing grossly intact. MOUTH: Oropharynx is normal. NECK: No adenopathy, no JVD. CHEST: Chest mostly clear CARDIAC: Regular rate and rhythm. S1 and S2, without murmurs, gallops, or rubs. VASCULAR: No Edema. Peripheral pulses normal and equal in all extremities. ABDOMEN: Soft, non tender and non distended. No rebound or guarding, and no masses palpated. Bowel Sounds normal. MUSCULOSKELETAL: Good range of motion of all major joints. Extremities without clubbing, cyanosis or edema. NEUROLOGIC EXAM: Alert. No focal neurologic deficits PSYCHIATRIC: Stable mood SKIN: No obvious lesions - Constitutional Vitals: Temp Pulse Resp BP Pulse Ox 98.2 F 88 20 102/61 100 04/16/20 03:25 04/16/20 06:36 04/16/20 03:25 04/16/20 06:36 04/16/20 03:25 HEART Score - HEART Score Troponin: Troponin T 0.081 ng/mL (0.00-0.029) H 04/10/20 20:04 Results - Labs CBC & Chem 7: 04/16/20 07:12 04/16/20 07:12 Labs: Laboratory Last Values WBC 8.0 K/mm3 (4.5-11.0) 04/16/20 07:12 RBC 3.70 M/mm3 (3.65-5.03) 04/16/20 07:12 Hgb 9.1 gm/dl (11.8-15.2) L 04/16/20 07:12 Hct 28.8 % (35.5-45.6) L 04/16/20 07:12 MCV 78 fl (84-94) L 04/16/20 07:12 MCH 25 pg (28-32) L 04/16/20 07:12 MCHC 32 % (32-34) 04/16/20 07:12 RDW 21.4 % (13.2-15.2) H 04/16/20 07:12 Plt Count 138 K/mm3 (140-440) L 04/16/20 07:12 Lymph % (Auto) 10.9 % (13.4-35.0) L 04/10/20 20:04 [place] % (Auto) 6.0 % (0.0-7.3) 04/10/20 20:04 Eos % (Auto) 0.6 % (0.0-4.3) 04/10/20 20:04 Baso % (Auto) 1.0 % (0.0-1.8) 04/10/20 20:04 Lymph # (Auto) 0.8 K/mm3 (1.2-5.4) L 04/10/20 20:04 [place] # (Auto) 0.4 K/mm3 (0.0-0.8) 04/10/20 20:04 Eos # (Auto) 0.0 K/mm3 (0.0-0.4) 04/10/20 20:04 Baso # (Auto) 0.1 K/mm3 (0.0-0.1) 04/10/20 20:04 Add Manual Diff Complete 04/16/20 07:12 Total Counted 100 04/16/20 07:12 Seg Neutrophils % Hand Suture Winder 04/16/20 07:12 Seg Neuts % (Manual) 94.0 % (40.0-70.0) H 04/16/20 07:12 Band Neutrophils % 0 % 04/16/20 07:12 Lymphocytes % (Manual) 4.0 % (13.4-35.0) L 04/16/20 07:12 Reactive Lymphs % (Man) 0 % 04/16/20 07:12 Monocytes % (Manual) 1.0 % (0.0-7.3) 04/16/20 07:12 Eosinophils % (Manual) 0 % (0.0-4.3) 04/16/20 07:12 Basophils % (Manual) 0 % (0.0-1.8) 04/16/20 07:12 Metamyelocytes % 1.0 % 04/16/20 07:12 Myelocytes % 0 % 04/16/20 07:12 Promyelocytes % 0 % 04/16/20 07:12 Blast Cells % 0 % 04/16/20 07:12 Nucleated RBC % 1.0 % (0.0-0.9) H 04/16/20 07:12 Seg Neutrophils # 6.1 K/mm3 (1.8-7.7) 04/10/20 20:04 Seg Neutrophils # Man 7.5 K/mm3 (1.8-7.7) 04/16/20 07:12 Band Neutrophils # 0.0 K/mm3 04/16/20 07:12 Lymphocytes # (Manual) 0.3 K/mm3 (1.2-5.4) L 04/16/20 07:12 Abs React Lymphs (Man) 0.0 K/mm3 04/16/20 07:12 Monocytes # (Manual) 0.1 K/mm3 (0.0-0.8) 04/16/20 07:12 Eosinophils # (Manual) 0.0 K/mm3 (0.0-0.4) 04/16/20 07:12 Basophils # (Manual) 0.0 K/mm3 (0.0-0.1) 04/16/20 07:12 Metamyelocytes # 0.1 K/mm3 04/16/20 07:12 Myelocytes # 0.0 K/mm3 04/16/20 07:12 Promyelocytes # 0.0 K/mm3 04/16/20 07:12 Blast Cells # 0.0 K/mm3 04/16/20 07:12 WBC Morphology Not Reportable 04/16/20 07:12 WBC Morphology TNR 04/16/20 07:12 Hypersegmented Neuts Not Reportable 04/16/20 07:12 Hyposegmented Neuts Not Reportable 04/16/20 07:12 Hypogranular Neuts Not Reportable 04/16/20 07:12 Smudge Cells Not Reportable 04/16/20 07:12 Toxic Granulation Not Reportable 04/16/20 07:12 Toxic Vacuolation Not Reportable 04/16/20 07:12 Dohle Bodies Not Reportable 04/16/20 07:12 Pelger-Huet Anomaly Not Reportable 04/16/20 07:12 Barby Rods Not Reportable 04/16/20 07:12 Platelet Estimate Consistent w auto 04/16/20 07:12 Clumped Platelets Not Reportable 04/16/20 07:12 Plt Clumps, EDTA Not Reportable 04/16/20 07:12 Large Platelets Not Reportable 04/16/20 07:12 Giant Platelets Few 04/16/20 07:12 Platelet Satelliting Not Reportable 04/16/20 07:12 Plt Morphology Comment Not Reportable 04/16/20 07:12 RBC Morphology Not Reportable 04/16/20 07:12 Dimorphic RBCs Not Reportable 04/16/20 07:12 Polychromasia Not Reportable 04/16/20 07:12 Hypochromasia Few 04/16/20 07:12 Poikilocytosis Not Reportable 04/16/20 07:12 Anisocytosis Not Reportable 04/16/20 07:12 Microcytosis Not Reportable 04/16/20 07:12 Macrocytosis Not Reportable 04/16/20 07:12 Spherocytes Not Reportable 04/16/20 07:12 Pappenheimer Bodies Not Reportable 04/16/20 07:12 Sickle Cells Not Reportable 04/16/20 07:12 Target Cells 1+ 04/16/20 07:12 Tear Drop Cells Few 04/16/20 07:12 Ovalocytes Not Reportable 04/16/20 07:12 Helmet Cells Not Reportable 04/16/20 07:12 Snell-Mullen Bodies Not Reportable 04/16/20 07:12 [place] Rings Not Reportable 04/16/20 07:12 [place] Cells Not Reportable 04/16/20 07:12 Bite Cells Not Reportable 04/16/20 07:12 Crenated Cell Not Reportable 04/16/20 07:12 Elliptocytes Few 04/16/20 07:12 Acanthocytes (Spur) Not Reportable 04/16/20 07:12 Rouleaux Not Reportable 04/16/20 07:12 Hemoglobin C Crystals Not Reportable 04/16/20 07:12 Schistocytes Not Reportable 04/16/20 07:12 Malaria parasites Not Reportable 04/16/20 07:12 Willie Bodies Not Reportable 04/16/20 07:12 Hem Pathologist Commnt No 04/16/20 07:12 PT 15.5 Sec. (12.2-14.9) H 04/12/20 06:22 INR 1.21 (0.87-1.13) H 04/12/20 06:22 D-Dimer 2029.09 ng/mlDDU (0-234) H 04/11/20 15:11 Heparin Anti-Xa Level 0.35 U.I./ml (0.3-0.7) 04/13/20 05:06 ABG pH 7.425 pH Units (7.350-7.450) 04/11/20 16:25 ABG pCO2 31.8 mm Hg 04/11/20 16:25 ABG pO2 110.8 mm Hg (80.0-90.0) H 04/11/20 16:25 ABG HCO3 20.4 mmol/L (20.0-26.0) 04/11/20 16:25 ABG O2 Saturation 98.1 % (95.0-99.0) 04/11/20 16:25 ABG O2 Content 11.8 (0.0-44) 04/11/20 16:25 ABG Base Excess -3.4 mmol/L (-2.0-3.0) L 04/11/20 16:25 ABG Hemoglobin 8.6 gm/dl (14.0-18.0) L 04/11/20 16:25 ABG Carboxyhemoglobin 1.6 % (0.0-5.0) 04/11/20 16:25 ABG Methemoglobin 0.4 % (0.0-1.5) 04/11/20 16:25 Oxyhemoglobin 96.2 % (95.0-99.0) 04/11/20 16:25 FiO2 44 % 04/11/20 16:25 Sodium 141 mmol/L (137-145) 04/16/20 07:12 Potassium 4.2 mmol/L (3.6-5.0) 04/16/20 07:12 Chloride 98.9 mmol/L (98-107) 04/16/20 07:12 Carbon Dioxide 22 mmol/L (22-30) 04/16/20 07:12 Anion Gap 24 mmol/L 04/16/20 07:12 BUN 106 mg/dL (9-20) H 04/16/20 07:12 Creatinine 3.1 mg/dL (0.8-1.3) H 04/16/20 07:12 Estimated GFR 20 ml/min 04/16/20 07:12 BUN/Creatinine Ratio 34 % 04/16/20 07:12 Glucose 219 mg/dL (75-100) H 04/16/20 07:12 POC Glucose 297 mg/dL (70-105) H 04/16/20 11:09 Lactic Acid 3.00 mmol/L (0.7-2.0) H* 04/12/20 06:22 Calcium 7.9 mg/dL (8.4-10.2) L 04/16/20 07:12 Phosphorus 5.60 mg/dL (2.5-4.5) H 04/10/20 22:50 Magnesium 2.40 mg/dL (1.7-2.3) H 04/10/20 22:50 Ferritin 135.1 ng/mL (30.0-300.0) 04/11/20 15:11 Total Bilirubin 1.00 mg/dL (0.1-1.2) 04/16/20 07:12 Direct Bilirubin 0.6 mg/dL (0-0.2) H 04/15/20 04:56 Indirect Bilirubin 0.3 mg/dL 04/15/20 04:56 AST 58 units/L (5-40) H 04/16/20 07:12 ALT 247 units/L (7-56) H 04/16/20 07:12 Alkaline Phosphatase 150 units/L (35-129) H 04/16/20 07:12 Lactate Dehydrogenase 664 units/L (91-180) H 04/10/20 20:51 Troponin T 0.081 ng/mL (0.00-0.029) H 04/10/20 20:04 C-Reactive Protein 5.60 mg/dL (0.00-1.30) H 04/10/20 20:51 NT-Pro-B Natriuret Pep > 00411 pg/mL (0-900) H 04/11/20 15:11 Total Protein 6.1 g/dL (6.3-8.2) L 04/16/20 07:12 Albumin 3.4 g/dL (3.9-5) L 04/16/20 07:12 Albumin/Globulin Ratio 1.3 % 04/16/20 07:12 Triglycerides 113 mg/dL (2-149) 04/10/20 20:04 Cholesterol 178 mg/dL (50-199) 04/10/20 20:04 LDL Cholesterol Direct 123 mg/dL (50-130) 04/10/20 20:04 HDL Cholesterol 41 mg/dL (40-59) 04/10/20 20:04 Cholesterol/HDL Ratio 4.34 % 04/10/20 20:04 Procalcitonin 2.47 ng/mL (<0.15) 04/11/20 15:11 TSH 3.640 mlU/mL (0.270-4.200) 04/13/20 10:06 Urine Color Yellow (Yellow) 04/11/20 Unknown Urine Turbidity Clear (Clear) 04/11/20 Unknown Urine pH 5.0 (5.0-7.0) 04/11/20 Unknown Ur Specific Kouts 1.009 (1.003-1.030) 04/11/20 Unknown Urine Protein <15 mg/dl mg/dL (Negative) 04/11/20 Unknown Urine Glucose (UA) Neg mg/dL (Negative) 04/11/20 Unknown Urine Ketones Neg mg/dL (Negative) 04/11/20 Unknown Urine Blood Neg (Negative) 04/11/20 Unknown Urine Nitrite Neg (Negative) 04/11/20 Unknown Urine Bilirubin Neg (Negative) 04/11/20 Unknown Urine Urobilinogen < 2.0 mg/dL (<2.0) 04/11/20 Unknown Ur Leukocyte Esterase Neg (Negative) 04/11/20 Unknown Urine WBC (Auto) 1.0 /HPF (0.0-6.0) 04/11/20 Unknown Urine RBC (Auto) 2.0 /HPF (0.0-6.0) 04/11/20 Unknown U Epithel Cells (Auto) < 1.0 /HPF (0-13.0) 04/11/20 Unknown Hyaline Casts 3 /LPF 04/11/20 Unknown Urine Mucus Few /HPF 04/11/20 Unknown Urine Eosinophils None seen (None Seen) 04/11/20 Unknown Urine Creatinine 35.3 mg/dL (0.1-20.0) H 04/11/20 Unknown Urine Sodium 92 mmol/L 04/11/20 Unknown Coronavirus (PCR) Negative (Negative) 04/11/20 Unknown Hepatitis A IgM Ab Non-reactive (NonReactive) 04/12/20 20:23 Hep Bs Antigen Non-reactive (Negative) 04/12/20 20:23 Hep B Core IgM Ab Non-reactive (NonReactive) 04/12/20 20:23 Hepatitis C Antibody Non-reactive (NonReactive) 04/12/20 20:23 Microbiology: Microbiology 04/10/20 20:11 Peripheral/Venous Blood Culture - Final NO GROWTH AFTER 5 DAYS 04/10/20 20:04 Peripheral/Venous Blood Culture - Final NO GROWTH AFTER 5 DAYS Gay/IV: Voiding Method Condom Catheter IV Catheter Type [Right Upper INT / Saline Lock arm] IV Catheter Type [Left Wrist] Peripheral IV IV Catheter Type [Right INT / Saline Lock Forearm] IV Catheter Type [Right Wrist] INT / Saline Lock Active Medications - Current Medications Current Medications: Generic Name Dose Route Start Last Admin Trade Name Freq PRN Reason Stop Dose Admin Acetaminophen 650 mg 04/11/20 01:26 Tylenol PO Q6H PRN Pain MILD(1-3)/Fever >100.5/MANCILLA Albuterol/Ipratropium 1 ampul 04/11/20 02:00 04/16/20 13:13 Duoneb *Not For Prn Use* IH 1 ampul Q6HRT PRAVIN Administration Lipase/Protease/Amylase 1 each 04/11/20 14:22 Pancreazaddison Saenz 10,500 Unit FEEDTUBE PRN PRN For Clogged Feeding Tube Heparin Sodium (Porcine) 5,000 unit 04/13/20 14:00 04/16/20 06:36 Heparin SUB-Q 5,000 unit Q8HR PRAVIN Administration Sodium Chloride 1,000 mls @ 60 mls/hr 04/16/20 14:15 Nacl 0.9% 1000 Ml IV DIRECT PRAVIN Insulin Human Lispro 0 unit 04/12/20 00:00 04/16/20 06:35 Humalog SUB-Q 300 unit Q6H PRAVIN Administration Protocol Magnesium Hydroxide 30 ml 04/11/20 01:26 Milk Of Magnesia PO Q4H PRN Constipation Methylprednisolone Sodium Succinate 40 mg 04/13/20 10:00 04/15/20 21:29 Solu-Medrol IV 40 mg Q12HR PRAVIN Administration Metoprolol Tartrate 25 mg 04/13/20 18:00 04/16/20 06:36 Metoprolol PO 25 mg Q6HR PRAVIN Administration Simple Syrup 15 ml 04/11/20 14:22 Simple Syrup FEEDTUBE PRN PRN Hypoglycemia Simple Syrup 30 ml 04/11/20 14:22 Simple Syrup FEEDTUBE PRN PRN Hypoglycemia Sodium Bicarbonate 325 mg 04/11/20 14:22 Sodium Bicarbonate FEEDTUBE PRN PRN For Clogged Feeding Tube Sodium Chloride 10 ml 04/11/20 10:00 04/16/20 09:51 Sodium Chloride Flush Syringe 10 Ml IV 10 ml BID PRAVIN Administration Sodium Chloride 10 ml 04/11/20 01:26 Sodium Chloride Flush Syringe 10 Ml IV PRN PRN LINE FLUSH Nutrition/Malnutrition Assess - Dietary Evaluation Nutrition/Malnutrition Findings: Nutrition Notes Start: 04/11/20 13:41 Freq: Status: Active Protocol: Document 04/13/20 12:38 BERNIE (Rec: 04/13/20 12:43 BERNIE [id number]) Co-Sign 04/13/20 12:38 TRINITY Nutrition Notes Initial or Follow up Reassessment Current Diagnosis Acute Kidney Injury,COPD, Coronary Artery Disease, Diabetes,Hypertension,Heart Failure Other Pertinent Diagnosis RI, Crohn's disease, seizure, colitis Current Diet Nepro 1.8 at 35 ml/hr Labs/Tests Na 135 BUN 59 Cr 2.2 BG 256 Pertinent Medications Solu-Medrol Height 5 ft 7 in Weight 65.4 kg [place] Body Weight (kg) 67.27 BMI 22.6 Weight Status Underweight Subjective/Other Information F/U for TF start/tolerance. Unable to speak to pt, pt yelling at time of visit. Per chart, pt tolerating TF at goal yesterday. Per RN, pt is agitated and pulled out TF. Percent of energy/protein needs met: 0%/0% Burn Absent Trauma Absent Difficulty In Swallowing,Chewing Minimum of two criteria No #1 Nutrition Diagnosis Inadequate oral intake Diagnosis Progress(for reassessment Continues documentation) Is patient on ventilator? No Is Patient Ambulatory and/or Out of Bed No REE-([facility] Jeaz-confined to bed) 5829.372 Calculation Used for Recommendations [facility] Additional Notes Protein Needs: 52-78 g (0.8-1. 2 g/kg) Fluid Needs: 1 mL/kcal Nutrition Intervention Change Diet Order: TF restart Nutrition Support: Nepro 1.8 at 35 mL/hr. Flush 150 mL q4h Kcal 1,512 Protein (gm) 68 Fluid (mL) 611 Fiber (gm) 12 Goal #1 TF restart Goal #2 Meet at least 75% of estimated energy and protein needs via TF Anticipated Discharge Needs: Unable to determine at this time Follow-Up By: 04/17/20 Additional Comments F/U for TF restart/tolerance
[2020-04-16] MEDS ORDERED: LORazepam 2 MG/ML VIAL IV ONE (14:32)
--- NOTE | 2020-04-16 16:55 | Magnetic Resonance Report ---
MRI LUMBAR SPINE 04/16/2020 INDICATION / CLINICAL INFORMATION: Low back pain.. COMPARISON: None available. FINDINGS: GENERAL OBSERVATIONS: Unenhanced MR images of the lumbar spine were obtained. Some motion artifact is present on these images. There is no abnormality of the T12 vertebral body, which will be described in greater detail on the [facility] thoracic spine MRI report. Lumbar vertebral body heights are well preserved. Mild left convex scoliosis is centered at the L3-4 level. Disc profiles are well-preserved at all levels. There is no evidence of stenosis or nerve root compre ssion. BONE MARROW: Lumbar bone marrow signal is unremarkable. SPINAL CORD/CAUDA EQUINA: Unremarkable PARASPINAL SOFT TISSUES: No significant abnormality. IMPRESSION: No evidence of acute lumbar abnormality. No evidence of stenosis or nerve root compression. See separate thoracic spine MRI report for description of abnormality at T12. Signer Name: Sin Melvin MD Signed: 04/16/2020 4:51 PM Workstation Name: [id number]
--- NOTE | 2020-04-16 17:00 | Magnetic Resonance Report ---
MRI THORACIC SPINE 04/16/2020 INDICATION / CLINICAL INFORMATION: Back pain. Abnormal. COMPARISON: Abdominal CT 04/10/2020 FINDINGS: GENERAL OBSERVATIONS: Unenhanced MR images of the thoracic spine were obtained. There are compression deformities present at the T11 and T12 levels. At T12, there is been approximat rachel 20% loss of vertebral body height. Upper endplate compression is associated with bone marrow sign al abnormality, consistent with recent or acute compression deformity. There is no evidence of retrop ulsion. T11, there is approximately 10-20% loss of vertebral body height. There is no evidence of bone marrow signal change, and therefore this appears to be chronic. The rest of the thoracic vertebral body heights are well preserved. There is no evidence of spinal cord compression or intrinsic spinal cord. Disc profiles are well preserved. BONE MARROW: As above. SPINAL CORD: Normal. PARASPINAL SOFT TISSUES: No significant abnormality. Incidental note is made of bilateral pleural effusions, larger on the right than on the left. Right pleural effusion is moderate in size, and overall is similar to the configuration seen in the abdomin al CT from 04/10/2020. IMPRESSION: 1. Recent/acute T12 compression deformity. 2. Mild chronic compression deformity of T11. Signer Name: Sin Melvin MD Signed: 04/16/2020 4:56 PM Workstation Name: [id number]
[2020-04-16] MEDS: SODIUM CHLORIDE 0.9% 1000 ML 1,000 ML IV SCH (19:10)
[2020-04-16] MEDS: INSULIN GLARGINE 100 UNITS/ML SUB-Q SCH (22:45)
[2020-04-17] MEDS: METOPROLOL TARTRATE 25 MG TAB PO SCH ×2 (01:07→06:17)
[2020-04-17 05:22] LABS: Hematocrit 28.8 % (35.5-45.6); Hemoglobin 9.1 gm/dl (11.8-15.2)
[2020-04-17 05:37] LABS: Albumin 3.4 g/dL (3.9-5); Calcium 7.9 mg/dL (8.4-10.2)
[2020-04-17] MEDS: HEPARIN 5,000 UNIT/1 ML VIAL SUB-Q SCH (06:17)
[2020-04-17] MEDS: IPRATROPIUM/ALBUTEROL SULFATE 3 ML AMPUL.NEB IH SCH ×4 (06:36→19:49)
[2020-04-17] MEDS: INSULIN LISPRO 100 UNIT/ML VIAL 3 mL SUB-Q SCH ×4 (08:06→21:38)
--- NOTE | 2020-04-17 09:13 | Progress Note ---
Assessment and Plan Chronic systolic heart failure LVEF 15-20% by echo 01/2020 VQ scan reports a low probability for PE. COVID 19 test was negative Paroxysmal Atrial fibrillation vs flutter currently in sinus rhythm on metoprolol for suppression Hx of Ischemic cardiomyopathy noncompliant with outpatient cardiac follow up. Hx of CAD Abdominal pain CT scan of the abdomen suggestive of colitis. Elevated liver transaminases Renal insufficiency with hyperkalemia Continue medical therapy for paroxysmal atrial fibrillation, systolic heart failure and coronary artery disease as tolerated. Will consider the patient's risks and benefits for long-term oral anticoagulation for stroke prophylaxis. Subjective Date of service: 04/17/20 Interval history: Patient is alert with confusion. No interval cardiac changes. Thoracic spine MRI reports T-12 compression. Objective Vital Signs Temp Pulse Pulse Pulse Resp Resp Resp 04/17/20 05:02 97.9 F 66 20 04/17/20 00:47 97.9 F 76 20 04/16/20 23:46 22 04/16/20 20:25 79 04/16/20 20:14 78 22 04/16/20 19:51 97.4 F L 79 20 04/16/20 16:41 97.6 F 76 18 04/16/20 13:13 85 18 04/16/20 10:00 104 H 26 H BP BP Pulse Ox 04/17/20 05:02 126/70 92 04/17/20 00:47 146/78 94 04/16/20 23:46 04/16/20 20:25 04/16/20 20:14 97 04/16/20 19:51 147/68 97 04/16/20 16:41 140/66 97 04/16/20 13:13 04/16/20 10:00 94 - Physical Examination General: No Apparent Distress HEENT: Positive: PERRL Neck: Positive: trachea midline Neuro: Positive: Weakness Abdomen: Positive: Soft Skin: Positive: Clear Extremities: Absent: edema - Labs and Meds Cardiac Enzymes 04/17/20 Range/Units 04:31 AST 39 (5-40) units/L CBC 04/17/20 Range/Units 04:31 Hgb 9.1 L (11.8-15.2) gm/dl Hct 28.8 L (35.5-45.6) % Plt Count 132 L (140-440) K/mm3 Comprehensive Metabolic Panel 04/17/20 Range/Units 04:31 Sodium 139 (137-145) mmol/L Potassium 3.7 (3.6-5.0) mmol/L Chloride 101.1 (98-107) mmol/L Carbon Dioxide 18 L (22-30) mmol/L BUN 111 H (9-20) mg/dL Creatinine 2.9 H (0.8-1.3) mg/dL Glucose 184 H (75-100) mg/dL Calcium 7.9 L (8.4-10.2) mg/dL AST 39 (5-40) units/L ALT 201 H (7-56) units/L Alkaline Phosphatase 148 H (35-129) units/L Total Protein 6.1 L (6.3-8.2) g/dL Albumin 3.4 L (3.9-5) g/dL
[2020-04-17] MEDS: SODIUM CHLORIDE 0.9% 1000 ML 1,000 ML IV SCH (10:53)
[2020-04-17 11:09] LABS: ABG Base Excess -2.8 mmol/L (-2.0-3.0); ABG HCO3 19.4 mmol/L (20.0-26.0); ABG Methemoglobin 0.4 % (0.0-1.5); ABG Oxygen Saturation 99.1 % (95.0-99.0); ABG PCO2 25.2 mm Hg; ABG PH 7.505 pH Units (7.350-7.450); ABG PO2 157.9 mm Hg (80.0-90.0)
[2020-04-17] MEDS ORDERED: METOPROLOL TARTRATE 25 MG TAB PO SCH (12:00)
[2020-04-17] MEDS: APIXABAN 2.5 MG TAB PO SCH ×2 (13:20→21:39)
[2020-04-17] MEDS: METOPROLOL TARTRATE 50 MG TAB PO SCH ×2 (13:21→21:38)
--- NOTE | 2020-04-17 13:44 | Progress Note ---
Assessment and Plan 1. Acute kidney injury: Vasomotor KIRT superimposed on CKD. CT abdomen negative for hydro. Monitor renal function. Creatinine level remains high, fluctuates. Renal prognosis is guarded. Avoid nephrotoxic agents. Meds dosage based on GFR. 2. FEN: Hyperkalemia, improved, monitor. Anion-gap metabolic acidosis, 2/2 KIRT / CKD, monitor. Sod bicarbonate as needed. Monitor lytes and volume status. 3. Acute hypoxic respiratory failure: Was on BIPAP. Possibly secondary to the CHF and underlying pneumonia. COVID-19 test negative. 4. Chronic CHF: Monitor daily weight, intake and outputs. Followed by Cards. 5. Colitis: Monitor. Seen by GI. 6. Anemia, POA: Monitor. 7. Elevated Transaminases: Monitor. 8. DM type 2. 9. HTN: Monitor BP. Subjective: Patient was seen and examined at the bedside. Examination: General appearance: well-developed, appears stated age, on restrains HEENT: ATNC, pupils equal Neck: trachea midline Respiratory: ctab Heart: regular, S1S2, no murmur Gastrointestinal: soft, normoactive bowel sounds, not tender Integumentary: no rash, warm and dry Neurologic: lethargic, non-verbal, moving extremities Ext: no edema Subjective Date of service: 04/17/20 Objective - Vital Signs Vital signs: Vital Signs - 12hr 04/17/20 04/17/20 04/17/20 05:02 09:10 10:00 Temperature 97.9 F 98.1 F Pulse Rate 66 63 76 Pulse Rate [ Anterior Bilateral Throughout] Pulse Rate [ Apical] Pulse Rate [ From Monitor] Pulse Rate [ Posterior Bilateral Throughout] Respiratory 20 14 Rate Respiratory Rate [Anterior Bilateral Throughout] Respiratory Rate [Posterior Bilateral Throughout] Blood Pressure Blood Pressure 126/70 128/74 [Left] O2 Sat by Pulse 92 95 Oximetry 04/17/20 04/17/20 04/17/20 10:17 10:30 11:00 Temperature Pulse Rate Pulse Rate [ 67 Anterior Bilateral Throughout] Pulse Rate [ 79 Apical] Pulse Rate [ 79 From Monitor] Pulse Rate [ 61 Posterior Bilateral Throughout] Respiratory 21 Rate Respiratory 17 Rate [Anterior Bilateral Throughout] Respiratory 17 Rate [Posterior Bilateral Throughout] Blood Pressure Blood Pressure [Left] O2 Sat by Pulse 100 95 Oximetry 04/17/20 04/17/20 13:21 13:22 Temperature 98.6 F Pulse Rate 69 69 Pulse Rate [ Anterior Bilateral Throughout] Pulse Rate [ Apical] Pulse Rate [ From Monitor] Pulse Rate [ Posterior Bilateral Throughout] Respiratory 18 Rate Respiratory Rate [Anterior Bilateral Throughout] Respiratory Rate [Posterior Bilateral Throughout] Blood Pressure 124/75 Blood Pressure 124/75 [Left] O2 Sat by Pulse 99 Oximetry - Lab 04/17/20 04:31 04/17/20 04:31 Most recent lab results ABG pH 7.505 pH Units (7.350-7.450) H 04/17/20 10:30 ABG pCO2 25.2 mm Hg 04/17/20 10:30 ABG pO2 157.9 mm Hg (80.0-90.0) H 04/17/20 10:30 ABG HCO3 19.4 mmol/L (20.0-26.0) L 04/17/20 10:30 ABG O2 Saturation 99.1 % (95.0-99.0) H 04/17/20 10:30 Calcium 7.9 mg/dL (8.4-10.2) L 04/17/20 04:31 Phosphorus 5.60 mg/dL (2.5-4.5) H 04/10/20 22:50 Magnesium 2.40 mg/dL (1.7-2.3) H 04/10/20 22:50 Urine Creatinine 35.3 mg/dL (0.1-20.0) H 04/11/20 Unknown Urine Sodium 92 mmol/L 04/11/20 Unknown Medications & Allergies - Medications Allergies/Adverse Reactions: Allergies Sulfa (Sulfonamide Antibiotics) Allergy (Verified 07/30/18 17:44) Rash Home Medications: Home Medications Medication Instructions Recorded Confirmed Last Taken Type Gabapentin 300 mg PO BID 09/19/16 01/29/20 09/18/16 History 300 mg Metformin HCl [metFORMIN ER 500 mg PO BIDWM 03/28/17 01/29/20 Unknown History Gastric] AtorvaSTATin 10 mg PO QHS #30 tablet 12/21/17 01/29/20 Unknown Rx Ranolazine ER [Ranexa ER] 500 mg PO BID #60 tablet 12/21/17 01/29/20 Unknown Rx Aspirin 325 mg PO QDAY #30 tablet 01/12/18 01/29/20 Unknown Rx Diphenoxylate/Atropine [Lomotil] 1 tab PO Q8H PRN 01/15/18 01/29/20 Unknown History Insulin Lispro [HumaLOG VIAL] See Protocol SQ ACHS 01/15/18 01/29/20 Unknown History Promethazine [Phenergan] 25 mg PO Q4H PRN 01/15/18 01/29/20 Unknown History Albuterol Mdi (or & Nicu Only) 2 puff IH Q4HR PRN #1 inhalation 12/21/18 01/29/20 Unknown Rx [ProAir HFA Inhaler] Furosemide [Lasix TAB] 20 mg PO QDAY #30 tablet 02/03/20 Unknown Rx Metoprolol Xl [Metoprolol 25 mg PO DAILY #60 tablet 02/03/20 Unknown Rx SUCCINATE ER TAB] levETIRAcetam [Keppra TAB] 500 mg PO BID #120 tablet 02/03/20 Unknown Rx levoFLOXacin [Levaquin TAB] 500 mg PO QDAY #5 tablet 02/03/20 Unknown Rx Active Medications: Generic Name Dose Route Start Last Admin Trade Name Freq PRN Reason Stop Dose Admin Acetaminophen 650 mg 04/11/20 01:26 Tylenol PO Q6H PRN Pain MILD(1-3)/Fever >100.5/MANCILLA Albuterol/Ipratropium 1 ampul 04/11/20 02:00 04/17/20 10:17 Duoneb *Not For Prn Use* IH 1 ampul Q6HRT PRAVIN Administration Lipase/Protease/Amylase 1 each 04/11/20 14:22 Pancremiley Saenz 10,500 Unit FEEDTUBE PRN PRN For Clogged Feeding Tube Apixaban 2.5 mg 04/17/20 12:00 04/17/20 13:20 Eliquis PO 2.5 mg Q12HR PRAVIN Administration Protocol Sodium Chloride 1,000 mls @ 60 mls/hr 04/16/20 14:15 04/17/20 10:53 Nacl 0.9% 1000 Ml IV 60 mls/hr DIRECT PRAVIN Administration Insulin Glargine 10 units 04/16/20 22:00 04/16/20 22:45 Lantus SUB-Q 10 units QHS PRAVIN Administration Insulin Human Lispro 0 unit 04/16/20 16:30 04/17/20 13:00 Humalog SUB-Q Not Given [facility] Protocol Magnesium Hydroxide 30 ml 04/11/20 01:26 Milk Of Magnesia PO Q4H PRN Constipation Metoprolol Tartrate 50 mg 04/17/20 13:00 04/17/20 13:21 Metoprolol PO 50 mg BID PRAVIN Administration Simple Syrup 15 ml 04/11/20 14:22 Simple Syrup FEEDTUBE PRN PRN Hypoglycemia Simple Syrup 30 ml 04/11/20 14:22 Simple Syrup FEEDTUBE PRN PRN Hypoglycemia Sodium Bicarbonate 325 mg 04/11/20 14:22 Sodium Bicarbonate FEEDTUBE PRN PRN For Clogged Feeding Tube Sodium Chloride 10 ml 04/11/20 10:00 04/17/20 09:07 Sodium Chloride Flush Syringe 10 Ml IV 10 ml BID PRAVIN Administration Sodium Chloride 10 ml 04/11/20 01:26 Sodium Chloride Flush Syringe 10 Ml IV PRN PRN LINE FLUSH
--- NOTE | 2020-04-17 15:43 | Progress Note ---
Assessment and Plan Assessment and plan: 75-year-old male with known history of coronary artery disease, diabetes mellitus and CHF with ejection fraction of 15% on echo done in January 2020, Crohn's disease, anemia and osteoarthritis presenting to the emergency room today with shortness of breath and abdominal pain. Symptoms were said to have started today and patient was brought in by EMS. En route to the hospital EMS indicates that patient was in a nonsustained V. tach. Most of the history was given by the ER physician as patient is in some respiratory distress. He was placed on BiPAP upon arrival in the emergency room. Work-up in the emergency room- chest x-ray reveals: Patchy bibasilar airspace opacities, may reflect pulmonary edema or pneumonia. Stable small left pleural effusion and/or pleural scarring. CT abdomen showed d iffuse colitis, bilateral pleural effusions and possible acute appearing compression fracture of T12. Patient was then admitted to the hospital for acute hypoxic respiratory failure, acute on chronic systolic heart failure, colitis and KIRT. Patient started on IV antibiotics and cardiology consulted for ventricular tachycardia. 04/11. Patient seen and examined at bedside this morning. Patient is on BiPAP. Patient is eager to go home. Otherwise denies any chest pain or palpitations. Patient CT showed possible compression fracture of T12, it is unknown if this is new. We will get MRI without contrast of the thoracic and lumbar to further evaluate. If patient actually has an acute compression fracture, he will need to have a neurosurgery evaluation so will need to be transferred to another facility for this. Otherwise, patient continue to monitor patient's respiratory status while in the IMCU. Patient reportedly failed a swallow evaluation and will need to have an NG tube placement. Tried to call son on number provided in the chart and left a message. Awaiting callback. Labs reviewed-patient has elevated inflammatory eqkbiog-C-smpli, LDH. COVID-19 test has been ordered. Started patient on steroids. Ordered stat BMP, ABG, D-dimer, proBNP, ferritin, LDH. 04/12. COVID -19 test is negative. His breathing has improved so was placed on nasal cannula. Cardiology adjusted meds today. He failed swallow evaluation yesterday. He requests for food. Will reattempt swallow evaluation. Speech therapy consult. 04/13. Overnight, he developed VT and was started on amiodarone. HR better this AM. Cardiology will review medications. Patient seen and examined at bedside this AM. He requests for food. He failed a repeat speech evaluation and will need barium swallow. May need PEG placement if he fails. NG tube in place. Vitals reviewed 04/14. Heart rate improved. Remains n.p.o. with NG tube feeds. Video swallow evaluation shows mild abnormal study. Speech therapist to see patient. Patient has not been able to have an MRI of the back due to agitation. He had a CT d uring the admission that showed possible compression fracture of T12 but this has not been fully evaluated due to patient's ongoing conditions. Labs reviewed-renal function is worse. Discontinue Lasix. 04/15. Has been started on a diet and is tolerating. He pulled out his NG tube last night. Okay to leave NG tube for now. Plan to get an MRI performed today with sedative to evaluate T12 fracture. Patient denies any back pain. Renal function slightly improved today after Lasix was discontinued. Continue IV hydration. Nephrology recommendations appreciated 04/16. He feels better today. MRI could not be done yesterday. Hopefully patient can have an MRI done today. Creatinine 3.1 today. Patient will need placement but will need to have evaluation of possible T12 fracture prior to discharge Problems ---Acute respiratory failure Current Visit: Yes Status: Acute Plan to address problem: Slightly improving but still needs oxygen to maintain sats. CT chest x-ray ordered Has no pneumonia and no sepsis. Continue oxygen supplementation COVID-19 test negative --Acute on chronic systolic CHF (congestive heart failure) Current Visit: Yes Status: Acute Plan to address problem: Holding Lasix due to KIRT Will monitor daily weight, inputs and outputs. Monitor renal function closely Cardiology on board --KIRT (acute kidney injury) Current Visit: Yes Status: Acute Plan to address problem: Creatinine stable at 3.1 Discontinued Lasix. Vasomotor nephropathy Nephrology following --Colitis Current Visit: Yes Status: Acute Plan to address problem: Resolved GI recommendations appreciated --Arrhythmias-atrial fibrillation versus nonsustained ventricular tachycardia Current Visit: Yes Status: Acute Plan to address problem: Initially started on amiodarone but discontinued due to elevated LFTs Now on metoprolol every 6 and rate is currently controlled. Started on low-dose apixaban 2.5 mg twice daily Cardiology recommendations appreciated --Diabetes mellitus type 2 in nonobese Current Visit: No Status: Acute Plan to address problem: Lantus and sliding scale insulin. --Hyperkalemia and metabolic acidosis Current Visit: Yes Status: Acute Plan to address problem: Resolved --T12 compression fracture Current Visit: No Status: Likely chronic Plan to address problem: CT abdomen showed acute appearing T12 compression fracture 04/14. MRI thoracic without contrast ordered to further evaluate. 04/15. Patient is agitated and unable to get an MRI. 04/16. Awaiting MRI without contrast thoracic. Plan to use sedatives today. Informed RN. If positive for acute fracture, patient will need to be transferred for neurosu rgery evaluation. 04/17. MRI thoracic and lumbar showed acute T12 compression fracture. Discussed case with [facility] meter maintenance person who advised no acute intervention is necessary at this time-advised TLSO brace when patient is sitting or ambulatory. He will need follow-up with Dr. Dalton Jack, Dr. Alan Henson, Dr. Tyson Clark [contact number [phone]] after discharge. ---Elevated LFTs Current Visit: Yes Status: Acute Plan to address problem: Improving US abdomen shows no acute pathology ---Infrarenal aortic aneurysm Current Visit: No Status: Acute Plan to address problem: 3.8 cm in diameter Needs to follow-up with vascular surgery at discharge for monitoring -Anemia and thrombocytopenia Current Visit: No Status: Acute Plan to address problem: Monitor platelets ?HIT - Hold heparin for now Peripheral smear reviewed - target cells, tear drops. Hematology consulted -- DVT prophylaxis Current Visit: No Status: Acute Plan to address problem: Hold heparin for now. Started on anticoagulation per cardiology. HIT antibody sent --Full code status Current Visit: No Status: Acute Disposition-home with hospice as per patient son plan stable Patient is slightly lethargic today. We will monitor for now. X-ray chest ordered. Plan to discharge home tomorrow if patient remains stable. Hold p.o. medications for now History Interval history: Patient seen and examined at bedside. Has no complaints today Slightly lethargic. ABG shows metabolic alkalosis Vitals stable. MRI thoracic and lumbar showed acute T12 compression fracture. Discussed case with [facility] who advised TLSO brace and follow-up with neurosurgeon's office after discharge. Patient will need to follow-up with Dr. Dalton Jack, Dr. Alan Henson, Dr. Tyson Clark at that time. Hospitalist Physical - Physical exam Narrative exam: VITAL SIGNS: Reviewed. GENERAL: Sleepy HEAD: No signs of head trauma. EYES: Pupils are equal. Extraocular motions intact. EARS: Hearing grossly intact. MOUTH: Oropharynx is normal. NECK: No adenopathy, no JVD. CHEST: Chest mostly clear CARDIAC: Regular rate and rhythm. S1 and S2, without murmurs, gallops, or rubs. VASCULAR: No Edema. Peripheral pulses normal and equal in all extremities. ABDOMEN: Soft, non tender and non distended. No rebound or guarding, and no masses palpated. Bowel Sounds normal. MUSCULOSKELETAL: Good range of motion of all major joints. Extremities without clubbing, cyanosis or edema. NEUROLOGIC EXAM: Sleepy PSYCHIATRIC: Stable mood SKIN: No obvious lesions - Constitutional Vitals: Temp Pulse Resp BP Pulse Ox 98.6 F 69 18 124/75 99 04/17/20 13:22 04/17/20 13:22 04/17/20 13:22 04/17/20 13:22 04/17/20 13:22 HEART Score - HEART Score Troponin: Troponin T 0.081 ng/mL (0.00-0.029) H 04/10/20 20:04 Results - Labs CBC & Chem 7: 04/17/20 04:31 04/17/20 04:31 Labs: Laboratory Last Values WBC 8.0 K/mm3 (4.5-11.0) 04/16/20 07:12 RBC 3.70 M/mm3 (3.65-5.03) 04/16/20 07:12 Hgb 9.1 gm/dl (11.8-15.2) L 04/17/20 04:31 Hct 28.8 % (35.5-45.6) L 04/17/20 04:31 MCV 78 fl (84-94) L 04/16/20 07:12 MCH 25 pg (28-32) L 04/16/20 07:12 MCHC 32 % (32-34) 04/16/20 07:12 RDW 21.4 % (13.2-15.2) H 04/16/20 07:12 Plt Count 132 K/mm3 (140-440) L 04/17/20 04:31 Lymph % (Auto) 10.9 % (13.4-35.0) L 04/10/20 20:04 [place] % (Auto) 6.0 % (0.0-7.3) 04/10/20 20:04 Eos % (Auto) 0.6 % (0.0-4.3) 04/10/20 20:04 Baso % (Auto) 1.0 % (0.0-1.8) 04/10/20 20:04 Lymph # (Auto) 0.8 K/mm3 (1.2-5.4) L 04/10/20 20:04 [place] # (Auto) 0.4 K/mm3 (0.0-0.8) 04/10/20 20:04 Eos # (Auto) 0.0 K/mm3 (0.0-0.4) 04/10/20 20:04 Baso # (Auto) 0.1 K/mm3 (0.0-0.1) 04/10/20 20:04 Add Manual Diff Complete 04/16/20 07:12 Total Counted 100 04/16/20 07:12 Seg Neutrophils % Occupational Health Rn 04/16/20 07:12 Seg Neuts % (Manual) 94.0 % (40.0-70.0) H 04/16/20 07:12 Band Neutrophils % 0 % 04/16/20 07:12 Lymphocytes % (Manual) 4.0 % (13.4-35.0) L 04/16/20 07:12 Reactive Lymphs % (Man) 0 % 04/16/20 07:12 Monocytes % (Manual) 1.0 % (0.0-7.3) 04/16/20 07:12 Eosinophils % (Manual) 0 % (0.0-4.3) 04/16/20 07:12 Basophils % (Manual) 0 % (0.0-1.8) 04/16/20 07:12 Metamyelocytes % 1.0 % 04/16/20 07:12 Myelocytes % 0 % 04/16/20 07:12 Promyelocytes % 0 % 04/16/20 07:12 Blast Cells % 0 % 04/16/20 07:12 Nucleated RBC % 1.0 % (0.0-0.9) H 04/16/20 07:12 Seg Neutrophils # 6.1 K/mm3 (1.8-7.7) 04/10/20 20:04 Seg Neutrophils # Man 7.5 K/mm3 (1.8-7.7) 04/16/20 07:12 Band Neutrophils # 0.0 K/mm3 04/16/20 07:12 Lymphocytes # (Manual) 0.3 K/mm3 (1.2-5.4) L 04/16/20 07:12 Abs React Lymphs (Man) 0.0 K/mm3 04/16/20 07:12 Monocytes # (Manual) 0.1 K/mm3 (0.0-0.8) 04/16/20 07:12 Eosinophils # (Manual) 0.0 K/mm3 (0.0-0.4) 04/16/20 07:12 Basophils # (Manual) 0.0 K/mm3 (0.0-0.1) 04/16/20 07:12 Metamyelocytes # 0.1 K/mm3 04/16/20 07:12 Myelocytes # 0.0 K/mm3 04/16/20 07:12 Promyelocytes # 0.0 K/mm3 04/16/20 07:12 Blast Cells # 0.0 K/mm3 04/16/20 07:12 WBC Morphology Not Reportable 04/16/20 07:12 WBC Morphology TNR 04/16/20 07:12 Hypersegmented Neuts Not Reportable 04/16/20 07:12 Hyposegmented Neuts Not Reportable 04/16/20 07:12 Hypogranular Neuts Not Reportable 04/16/20 07:12 Smudge Cells Not Reportable 04/16/20 07:12 Toxic Granulation Not Reportable 04/16/20 07:12 Toxic Vacuolation Not Reportable 04/16/20 07:12 Dohle Bodies Not Reportable 04/16/20 07:12 Pelger-Huet Anomaly Not Reportable 04/16/20 07:12 Barby Rods Not Reportable 04/16/20 07:12 Platelet Estimate Consistent w auto 04/16/20 07:12 Clumped Platelets Not Reportable 04/16/20 07:12 Plt Clumps, EDTA Not Reportable 04/16/20 07:12 Large Platelets Not Reportable 04/16/20 07:12 Giant Platelets Few 04/16/20 07:12 Platelet Satelliting Not Reportable 04/16/20 07:12 Plt Morphology Comment Not Reportable 04/16/20 07:12 RBC Morphology Not Reportable 04/16/20 07:12 Dimorphic RBCs Not Reportable 04/16/20 07:12 Polychromasia Not Reportable 04/16/20 07:12 Hypochromasia Few 04/16/20 07:12 Poikilocytosis Not Reportable 04/16/20 07:12 Anisocytosis Not Reportable 04/16/20 07:12 Microcytosis Not Reportable 04/16/20 07:12 Macrocytosis Not Reportable 04/16/20 07:12 Spherocytes Not Reportable 04/16/20 07:12 Pappenheimer Bodies Not Reportable 04/16/20 07:12 Sickle Cells Not Reportable 04/16/20 07:12 Target Cells 1+ 04/16/20 07:12 Tear Drop Cells Few 04/16/20 07:12 Ovalocytes Not Reportable 04/16/20 07:12 Helmet Cells Not Reportable 04/16/20 07:12 [place] Bodies Not Reportable 04/16/20 07:12 [place] Rings Not Reportable 04/16/20 07:12 Macria Cells Not Reportable 04/16/20 07:12 Bite Cells Not Reportable 04/16/20 07:12 Crenated Cell Not Reportable 04/16/20 07:12 Elliptocytes Few 04/16/20 07:12 Acanthocytes (Spur) Not Reportable 04/16/20 07:12 Rouleaux Not Reportable 04/16/20 07:12 Hemoglobin C Crystals Not Reportable 04/16/20 07:12 Schistocytes Not Reportable 04/16/20 07:12 Malaria parasites Not Reportable 04/16/20 07:12 Willie Bodies Not Reportable 04/16/20 07:12 Hem Pathologist Commnt No 04/16/20 07:12 PT 15.5 Sec. (12.2-14.9) H 04/12/20 06:22 INR 1.21 (0.87-1.13) H 04/12/20 06:22 D-Dimer 2029.09 ng/mlDDU (0-234) H 04/11/20 15:11 Heparin Anti-Xa Level 0.35 U.I./ml (0.3-0.7) 04/13/20 05:06 ABG pH 7.505 pH Units (7.350-7.450) H 04/17/20 10:30 ABG pCO2 25.2 mm Hg 04/17/20 10:30 ABG pO2 157.9 mm Hg (80.0-90.0) H 04/17/20 10:30 ABG HCO3 19.4 mmol/L (20.0-26.0) L 04/17/20 10:30 ABG O2 Saturation 99.1 % (95.0-99.0) H 04/17/20 10:30 ABG O2 Content 12.7 (0.0-44) 04/17/20 10:30 ABG Base Excess -2.8 mmol/L (-2.0-3.0) L 04/17/20 10:30 ABG Hemoglobin 9.1 gm/dl (14.0-18.0) L 04/17/20 10:30 ABG Carboxyhemoglobin 1.6 % (0.0-5.0) 04/17/20 10:30 ABG Methemoglobin 0.4 % (0.0-1.5) 04/17/20 10:30 Oxyhemoglobin 97.0 % (95.0-99.0) 04/17/20 10:30 FiO2 35 % 04/17/20 10:30 Sodium 139 mmol/L (137-145) 04/17/20 04:31 Potassium 3.7 mmol/L (3.6-5.0) 04/17/20 04:31 Chloride 101.1 mmol/L (98-107) 04/17/20 04:31 Carbon Dioxide 18 mmol/L (22-30) L 04/17/20 04:31 Anion Gap 24 mmol/L 04/17/20 04:31 BUN 111 mg/dL (9-20) H 04/17/20 04:31 Creatinine 2.9 mg/dL (0.8-1.3) H 04/17/20 04:31 Estimated GFR 21 ml/min 04/17/20 04:31 BUN/Creatinine Ratio 38 % 04/17/20 04:31 Glucose 184 mg/dL (75-100) H 04/17/20 04:31 POC Glucose 143 mg/dL (70-105) H 04/17/20 12:14 Lactic Acid 3.00 mmol/L (0.7-2.0) H* 04/12/20 06:22 Calcium 7.9 mg/dL (8.4-10.2) L 04/17/20 04:31 Phosphorus 5.60 mg/dL (2.5-4.5) H 04/10/20 22:50 Magnesium 2.40 mg/dL (1.7-2.3) H 04/10/20 22:50 Ferritin 135.1 ng/mL (30.0-300.0) 04/11/20 15:11 Total Bilirubin 1.10 mg/dL (0.1-1.2) 04/17/20 04:31 Direct Bilirubin 0.6 mg/dL (0-0.2) H 04/15/20 04:56 Indirect Bilirubin 0.3 mg/dL 04/15/20 04:56 AST 39 units/L (5-40) 04/17/20 04:31 ALT 201 units/L (7-56) H 04/17/20 04:31 Alkaline Phosphatase 148 units/L (35-129) H 04/17/20 04:31 Lactate Dehydrogenase 664 units/L (91-180) H 04/10/20 20:51 Troponin T 0.081 ng/mL (0.00-0.029) H 04/10/20 20:04 C-Reactive Protein 5.60 mg/dL (0.00-1.30) H 04/10/20 20:51 NT-Pro-B Natriuret Pep > 78367 pg/mL (0-900) H 04/11/20 15:11 Total Protein 6.1 g/dL (6.3-8.2) L 04/17/20 04:31 Albumin 3.4 g/dL (3.9-5) L 04/17/20 04:31 Albumin/Globulin Ratio 1.3 % 04/17/20 04:31 Triglycerides 113 mg/dL (2-149) 04/10/20 20:04 Cholesterol 178 mg/dL (50-199) 04/10/20 20:04 LDL Cholesterol Direct 123 mg/dL (50-130) 04/10/20 20:04 HDL Cholesterol 41 mg/dL (40-59) 04/10/20 20:04 Cholesterol/HDL Ratio 4.34 % 04/10/20 20:04 Procalcitonin 2.47 ng/mL (<0.15) 04/11/20 15:11 TSH 3.640 mlU/mL (0.270-4.200) 04/13/20 10:06 Urine Color Yellow (Yellow) 04/11/20 Unknown Urine Turbidity Clear (Clear) 04/11/20 Unknown Urine pH 5.0 (5.0-7.0) 04/11/20 Unknown Ur Specific [place] 1.009 (1.003-1.030) 04/11/20 Unknown Urine Protein <15 mg/dl mg/dL (Negative) 04/11/20 Unknown Urine Glucose (UA) Neg mg/dL (Negative) 04/11/20 Unknown Urine Ketones Neg mg/dL (Negative) 04/11/20 Unknown Urine Blood Neg (Negative) 04/11/20 Unknown Urine Nitrite Neg (Negative) 04/11/20 Unknown Urine Bilirubin Neg (Negative) 04/11/20 Unknown Urine Urobilinogen < 2.0 mg/dL (<2.0) 04/11/20 Unknown Ur Leukocyte Esterase Neg (Negative) 04/11/20 Unknown Urine WBC (Auto) 1.0 /HPF (0.0-6.0) 04/11/20 Unknown Urine RBC (Auto) 2.0 /HPF (0.0-6.0) 04/11/20 Unknown U Epithel Cells (Auto) < 1.0 /HPF (0-13.0) 04/11/20 Unknown Hyaline Casts 3 /LPF 04/11/20 Unknown Urine Mucus Few /HPF 04/11/20 Unknown Urine Eosinophils None seen (None Seen) 04/11/20 Unknown Urine Creatinine 35.3 mg/dL (0.1-20.0) H 04/11/20 Unknown Urine Sodium 92 mmol/L 04/11/20 Unknown Coronavirus (PCR) Negative (Negative) 04/11/20 Unknown Hepatitis A IgM Ab Non-reactive (NonReactive) 04/12/20 20:23 Hep Bs Antigen Non-reactive (Negative) 04/12/20 20:23 Hep B Core IgM Ab Non-reactive (NonReactive) 04/12/20 20:23 Hepatitis C Antibody Non-reactive (NonReactive) 11/18/20 20:23 Gay/IV: Voiding Method Incontinent IV Catheter Type [Right Upper INT / Saline Lock arm] IV Catheter Type [Left Wrist] Peripheral IV IV Catheter Type [Right INT / Saline Lock Forearm] IV Catheter Type [Right Wrist] INT / Saline Lock Active Medications - Current Medications Current Medications: Generic Name Dose Route Start Last Admin Trade Name Freq PRN Reason Stop Dose Admin Acetaminophen 650 mg 04/11/20 01:26 Tylenol PO Q6H PRN Pain MILD(1-3)/Fever >100.5/MANCILLA Albuterol/Ipratropium 1 ampul 04/11/20 02:00 04/17/20 10:17 Duoneb *Not For Prn Use* IH 1 ampul Q6HRT PRAVIN Administration Lipase/Protease/Amylase 1 each 04/11/20 14:22 Pancreazaddison Saenz 10,500 Unit FEEDTUBE PRN PRN For Clogged Feeding Tube Apixaban 2.5 mg 04/17/20 12:00 04/17/20 13:20 Eliquis PO 2.5 mg Q12HR PRAVIN Administration Protocol Sodium Chloride 1,000 mls @ 60 mls/hr 04/16/20 14:15 04/17/20 10:53 Nacl 0.9% 1000 Ml IV 60 mls/hr DIRECT PRAVIN Administration Insulin Glargine 10 units 04/16/20 22:00 04/16/20 22:45 Lantus SUB-Q 10 units QHS PRAVIN Administration Insulin Human Lispro 0 unit 04/16/20 16:30 04/17/20 13:00 Humalog SUB-Q Not Given ACHS PRAVIN Protocol Magnesium Hydroxide 30 ml 04/11/20 01:26 Milk Of Magnesia PO Q4H PRN Constipation Metoprolol Tartrate 50 mg 04/17/20 13:00 04/17/20 13:21 Metoprolol PO 50 mg BID PRAVIN Administration Simple Syrup 15 ml 04/11/20 14:22 Simple Syrup FEEDTUBE PRN PRN Hypoglycemia Simple Syrup 30 ml 04/11/20 14:22 Simple Syrup FEEDTUBE PRN PRN Hypoglycemia Sodium Bicarbonate 325 mg 04/11/20 14:22 Sodium Bicarbonate FEEDTUBE PRN PRN For Clogged Feeding Tube Sodium Chloride 10 ml 04/11/20 10:00 04/17/20 09:07 Sodium Chloride Flush Syringe 10 Ml IV 10 ml BID PRAVIN Administration Sodium Chloride 10 ml 04/11/20 01:26 Sodium Chloride Flush Syringe 10 Ml IV PRN PRN LINE FLUSH Nutrition/Malnutrition Assess - Dietary Evaluation Nutrition/Malnutrition Findings: Nutrition Notes Start: 04/11/20 13:41 Freq: Status: Active Protocol: Document 04/17/20 15:09 LM (Rec: 04/17/20 15:13 LM [id number]) Nutrition Notes Initial or Follow up Reassessment Current Diagnosis Acute Kidney Injury,COPD, Coronary Artery Disease, Diabetes,Hypertension,Heart Failure Other Pertinent Diagnosis MS, Crohn's disease, seizure, colitis Current Diet pureed Labs/Tests BUN 111 Cr 2.9 BG 184 Pertinent Medications NS at 60ml/hr Height 5 ft 7 in Weight 64.2 kg [place] Body Weight (kg) 67.27 BMI 22.1 Weight Status Underweight Subjective/Other Information Pt had MBS. ROLLER CLEANER recommends Pureed with nectar liquids. Pt ate 25% of breakfast. RN stated it is hard to keep pt awake. Burn Absent Trauma Absent Difficulty In Swallowing,Chewing Current % PO Poor (25-49%) Minimum of two criteria No #1 Nutrition Diagnosis Inadequate oral intake As Evidenced by Signs and Symptoms pt on pureed diet Diagnosis Progress(for reassessment Improved documentation) Is patient on ventilator? No Is Patient Ambulatory and/or Out of Bed No REE-([facility]-confined to bed) 5524.516 Calculation Used for Recommendations [facility] Additional Notes Protein Needs: 52-78 g (0.8-1. 2 g/kg) Fluid Needs: 1 mL/kcal Nutrition Intervention Change Diet Order: Pureed Nutrition Support: D/C Add Supplement/Snack (indicate name/kcal Nepro daily /protein ) Goal #1 Meet at least 75% of energy an protein needs Anticipated Discharge Needs: Unable to determine at this time Follow-Up By: 04/19/20 Additional Comments F/U for PO/ONS intakes
--- NOTE | 2020-04-17 20:57 | XRay Report ---
CHEST 1 VIEW 04/17/2020 7:39 PM INDICATION / CLINICAL INFORMATION: Shortness of breath. COMPARISON: Chest x-ray 04/13/2020 FINDINGS: SUPPORT DEVICES: None. HEART / MEDIASTINUM: Cardiac silhouette is moderately enlarged. LUNGS / PLEURA: Bibasilar parenchymal disease, left greater than right has worsened No pneumothorax. ADDITIONAL FINDINGS: No significant additional findings. IMPRESSION: 1. Worsening bilateral lower lobe pneumonia Signer Name: Kolby Butt MD Signed: 04/17/2020 8:53 PM Workstation Name: [id number]
[2020-04-17] MEDS: INSULIN GLARGINE 100 UNITS/ML SUB-Q SCH (21:37)
[2020-04-18] MEDS: IPRATROPIUM/ALBUTEROL SULFATE 3 ML AMPUL.NEB IH SCH ×5 (02:40→20:14)
[2020-04-18 05:48] LABS: Albumin 3.3 g/dL (3.9-5); Calcium 7.9 mg/dL (8.4-10.2)
[2020-04-18] MEDS: INSULIN LISPRO 100 UNIT/ML VIAL 3 mL SUB-Q SCH ×4 (08:00→22:09)
[2020-04-18] MEDS: APIXABAN 2.5 MG TAB PO SCH ×2 (10:01→22:15)
[2020-04-18] MEDS: METOPROLOL TARTRATE 50 MG TAB PO SCH ×3 (10:02→22:15)
--- NOTE | 2020-04-18 10:54 | Progress Note ---
Assessment and Plan Chronic systolic heart failure LVEF 15-20% by echo 01/2020 VQ scan reports a low probability for PE. COVID 19 test was negative Paroxysmal Atrial fibrillation vs flutter currently in sinus rhythm on metoprolol for suppression initiated on low dose Eliquis due to patient's low body weight of 64 kg and evidence of chronic anemia. Hx of Ischemic cardiomyopathy noncompliant with outpatient cardiac follow up. Hx of CAD Abdominal pain CT scan of the abdomen suggestive of colitis. Renal insufficiency Continue medical therapy for paroxysmal atrial fibrillation, systolic heart failure and coronary artery disease as tolerated. Subjective Date of service: 04/18/20 Interval history: No interval cardiac changes. Stable sinus rhythm on telemetry. Objective Vital Signs Temp Pulse Pulse Pulse Pulse Pulse Resp 04/18/20 10:02 74 04/18/20 09:37 04/18/20 07:11 97.8 F 63 20 04/18/20 03:14 99.3 F 66 16 04/17/20 23:08 97.5 F L 64 19 04/17/20 21:38 04/17/20 19:52 04/17/20 19:49 72 70 04/17/20 19:26 97.6 F 69 19 04/17/20 17:23 68 68 04/17/20 13:22 98.6 F 69 18 04/17/20 13:21 69 04/17/20 11:00 79 79 21 Resp Resp BP BP Pulse Ox 04/18/20 10:02 04/18/20 09:37 96 04/18/20 07:11 127/74 96 04/18/20 03:14 128/76 100 04/17/20 23:08 137/74 100 04/17/20 21:38 174/93 04/17/20 19:52 99 04/17/20 19:49 20 20 04/17/20 19:26 174/93 97 04/17/20 17:23 21 22 04/17/20 13:22 124/75 99 04/17/20 13:21 124/75 04/17/20 11:00 95 - Physical Examination General: No Apparent Distress HEENT: Positive: PERRL Neck: Positive: trachea midline Cardiac: Positive: Reg Rate and Rhythm Extremities: Absent: edema - Labs and Meds Cardiac Enzymes 04/18/20 Range/Units 04:40 AST 34 (5-40) units/L Comprehensive Metabolic Panel 04/18/20 Range/Units 04:40 Sodium 141 (137-145) mmol/L Potassium 3.8 (3.6-5.0) mmol/L Chloride 101.9 (98-107) mmol/L Carbon Dioxide 20 L (22-30) mmol/L BUN 120 H (9-20) mg/dL Creatinine 2.7 H (0.8-1.3) mg/dL Glucose 174 H (75-100) mg/dL Calcium 7.9 L (8.4-10.2) mg/dL AST 34 (5-40) units/L ALT 165 H (7-56) units/L Alkaline Phosphatase 139 H (35-129) units/L Total Protein 6.1 L (6.3-8.2) g/dL Albumin 3.3 L (3.9-5) g/dL
--- NOTE | 2020-04-18 14:29 | Progress Note ---
Assessment and Plan 1. Acute kidney injury: Vasomotor KIRT superimposed on CKD. CT abdomen negative for hydro. Monitor renal function. Creatinine level slowly improving, BUN increasing. Renal prognosis is guarded. Avoid nephrotoxic agents. Meds dosage based on GFR. 2. FEN: Hyperkalemia, improved, monitor. Anion-gap metabolic acidosis, 2/2 KIRT / CKD, monitor. Sod bicarbonate as needed. Monitor lytes and volume status. 3. Acute hypoxic respiratory failure: Was on BIPAP. Possibly secondary to the CHF and underlying pneumonia. COVID-19 test negative. 4. Chronic CHF: Monitor daily weight, intake and outputs. Followed by Cards. 5. Colitis: Monitor. Seen by GI. 6. Anemia, POA: Monitor. 7. Elevated Transaminases: Monitor. 8. DM type 2. 9. HTN: Monitor BP. Subjective: Patient was seen and examined at the bedside. Examination: General appearance: well-developed, appears stated age, on restrains HEENT: ATNC, pupils equal Neck: trachea midline Respiratory: ctab Heart: regular, S1S2, no murmur Gastrointestinal: soft, normoactive bowel sounds, not tender Integumentary: no rash, warm and dry Neurologic: lethargic, moving extremities, answers few questions, confused Ext: no edema Subjective Date of service: 04/18/20 Objective - Vital Signs Vital signs: Vital Signs - 12hr 04/18/20 04/18/20 04/18/20 03:14 07:11 09:37 Temperature 99.3 F 97.8 F Pulse Rate 66 63 Respiratory 16 20 Rate Blood Pressure 128/76 127/74 O2 Sat by Pulse 100 96 96 Oximetry 04/18/20 04/18/20 10:02 12:16 Temperature Pulse Rate 74 116 H Respiratory 20 Rate Blood Pressure 109/67 O2 Sat by Pulse 98 Oximetry - Lab 04/17/20 04:31 04/18/20 04:40 Most recent lab results ABG pH 7.505 pH Units (7.350-7.450) H 04/17/20 10:30 ABG pCO2 25.2 mm Hg 04/17/20 10:30 ABG pO2 157.9 mm Hg (80.0-90.0) H 04/17/20 10:30 ABG HCO3 19.4 mmol/L (20.0-26.0) L 04/17/20 10:30 ABG O2 Saturation 99.1 % (95.0-99.0) H 04/17/20 10:30 Calcium 7.9 mg/dL (8.4-10.2) L 04/18/20 04:40 Phosphorus 5.60 mg/dL (2.5-4.5) H 04/10/20 22:50 Magnesium 2.40 mg/dL (1.7-2.3) H 04/10/20 22:50 Urine Creatinine 35.3 mg/dL (0.1-20.0) H 04/11/20 Unknown Urine Sodium 92 mmol/L 04/11/20 Unknown Medications & Allergies - Medications Allergies/Adverse Reactions: Allergies Sulfa (Sulfonamide Antibiotics) Allergy (Verified 07/30/18 17:44) Rash Home Medications: Home Medications Medication Instructions Recorded Confirmed Last Taken Type Gabapentin 300 mg PO BID 09/19/16 01/29/20 09/18/16 History 300 mg Metformin HCl [metFORMIN ER 500 mg PO BIDWM 03/28/17 01/29/20 Unknown History Gastric] AtorvaSTATin 10 mg PO QHS #30 tablet 12/21/17 01/29/20 Unknown Rx Ranolazine ER [Ranexa ER] 500 mg PO BID #60 tablet 12/21/17 01/29/20 Unknown Rx Aspirin 325 mg PO QDAY #30 tablet 01/12/18 01/29/20 Unknown Rx Diphenoxylate/Atropine [Lomotil] 1 tab PO Q8H PRN 01/15/18 01/29/20 Unknown History Insulin Lispro [HumaLOG VIAL] See Protocol SQ ACHS 01/15/18 01/29/20 Unknown History Promethazine [Phenergan] 25 mg PO Q4H PRN 01/15/18 01/29/20 Unknown History Albuterol Mdi (or & Nicu Only) 2 puff IH Q4HR PRN #1 inhalation 12/21/18 01/29/20 Unknown Rx [ProAir HFA Inhaler] Furosemide [Lasix TAB] 20 mg PO QDAY #30 tablet 02/03/20 Unknown Rx Metoprolol Xl [Metoprolol 25 mg PO DAILY #60 tablet 02/03/20 Unknown Rx SUCCINATE ER TAB] levETIRAcetam [Keppra TAB] 500 mg PO BID #120 tablet 02/03/20 Unknown Rx levoFLOXacin [Levaquin TAB] 500 mg PO QDAY #5 tablet 02/03/20 Unknown Rx Active Medications: Generic Name Dose Route Start Last Admin Trade Name Alanna PRN Reason Stop Dose Admin Acetaminophen 650 mg 04/11/20 01:26 Tylenol PO Q6H PRN Pain MILD(1-3)/Fever >100.5/MANCILLA Albuterol/Ipratropium 1 ampul 04/18/20 14:00 Duoneb *Not For Prn Use* IH TIDRT [facility] Lipase/Protease/Amylase 1 each 04/11/20 14:22 Pancreaze 10,500 Unit FEEDTUBE PRN PRN For Clogged Feeding Tube Apixaban 2.5 mg 04/17/20 12:00 04/18/20 10:01 Eliquis PO 2.5 mg Q12HR PRAVIN Administration Protocol Insulin Glargine 10 units 04/16/20 22:00 04/17/20 21:37 Lantus SUB-Q 10 units QHS PRAVIN Administration Insulin Human Lispro 0 unit 04/16/20 16:30 04/18/20 08:00 Humalog SUB-Q 2 unit ACHS PRAVIN Administration Protocol Magnesium Hydroxide 30 ml 04/11/20 01:26 Milk Of Magnesia PO Q4H PRN Constipation Metoprolol Tartrate 50 mg 04/17/20 13:00 04/18/20 10:02 Metoprolol PO 50 mg BID PRAVIN Administration Simple Syrup 15 ml 04/11/20 14:22 Simple Syrup FEEDTUBE PRN PRN Hypoglycemia Simple Syrup 30 ml 04/11/20 14:22 Simple Syrup FEEDTUBE PRN PRN Hypoglycemia Sodium Bicarbonate 325 mg 04/11/20 14:22 Sodium Bicarbonate FEEDTUBE PRN PRN For Clogged Feeding Tube Sodium Chloride 10 ml 04/11/20 10:00 04/18/20 10:02 Sodium Chloride Flush Syringe 10 Ml IV 10 ml BID PRAVIN Administration Sodium Chloride 10 ml 04/11/20 01:26 Sodium Chloride Flush Syringe 10 Ml IV PRN PRN LINE FLUSH
--- NOTE | 2020-04-18 15:48 | Progress Note ---
Assessment and Plan Assessment and plan: ---Acute respiratory failure Current Visit: Yes Status: Acute Plan to address problem: Slightly improving but still needs oxygen to maintain sats. CT chest x-ray ordered Has no pneumonia and no sepsis. Continue oxygen supplementation COVID-19 test negative --Acute on chronic systolic CHF (congestive heart failure) Current Visit: Yes Status: Acute Plan to address problem: Holding Lasix due to KIRT Will monitor daily weight, inputs and outputs. Monitor renal function closely Cardiology on board --KIRT (acute kidney injury) Current Visit: Yes Status: Acute Plan to address problem: Creatinine stable at 3.1 Discontinued Lasix. Vasomotor nephropathy Nephrology following --Colitis Current Visit: Yes Status: Acute Plan to address problem: Resolved GI recommendations appreciated --Arrhythmias-atrial fibrillation versus nonsustained ventricular tachycardia Current Visit: Yes Status: Acute Plan to address problem: Initially started on amiodarone but discontinued due to elevated LFTs Now on metoprolol every 6 and rate is currently controlled. Started on low-dose apixaban 2.5 mg twice daily Cardiology recommendations appreciated --Diabetes mellitus type 2 in nonobese Current Visit: No Status: Acute Plan to address problem: Lantus and sliding scale insulin. --Hyperkalemia and metabolic acidosis Current Visit: Yes Status: Acute Plan to address problem: Resolved --T12 compression fracture Current Visit: No Status: Likely chronic Plan to address problem: CT abdomen showed acute appearing T12 compression fracture 04/14. MRI thoracic without contrast ordered to further evaluate. 04/15. Patient is agitated and unable to get an MRI. 04/16. Awaiting MRI without contrast thoracic. Plan to use sedatives today. Informed RN. If positive for acute fracture, patient will need to be transferred for neurosurgery evaluation. 04/17. MRI thoracic and lumbar showed acute T12 compression fracture. Discussed case with [place] neurosurgery vendor management consultant who advised no acute intervention is necessary at this time-advised TLSO brace when patient is sitting or ambulatory. He will need follow-up with Dr. Dalton Jack, Dr. Alan Henson, Dr. Tyson Clark [contact number [phone]] after discharge. ---Elevated LFTs Current Visit: Yes Status: Acute Plan to address problem: Improving US abdomen shows no acute pathology ---Infrarenal aortic aneurysm Current Visit: No Status: Acute Plan to address problem: 3.8 cm in diameter Needs to follow-up with vascular surgery at discharge for monitoring -Anemia and thrombocytopenia Current Visit: No Status: Acute Plan to address problem: Monitor platelets ?HIT - Hold heparin for now Peripheral smear reviewed - target cells, tear drops. Hematology consulted -- DVT prophylaxis Current Visit: No Status: Acute Plan to address problem: Hold heparin for now. Started on anticoagulation per cardiology. HIT antibody sent --Full code status Current Visit: No Status: Acute Disposition-home with hospice as per patient son plan stable 04/11. Patient seen and examined at bedside this morning. Patient is on BiPAP. Patient is eager to go home. Otherwise denies any chest pain or palpitations. Patient CT showed possible compression fracture of T12, it is unknown if this is new. We will get MRI without contrast of the thoracic and lumbar to further evaluate. If patient actually has an acute compression fracture, he will need to have a neurosurgery evaluation so will need to be transferred to another facility for this. Otherwise, patient continue to monitor patient's respiratory status while in the IMCU. Patient reportedly failed a swallow evaluation and will need to have an NG tube placement. Tried to call son on number provided in the chart and left a message. Awaiting callback. Labs reviewed-patient has elevated inflammatory gonrzeo-[id number], LDH. COVID-19 test has been ordered. Started patient on steroids. Ordered stat BMP, ABG, D-dimer, proBNP, ferritin, LDH. 04/12. COVID -19 test is negative. His breathing has improved so was placed on nasal cannula. Cardiology adjusted meds today. He failed swallow evaluation yesterday. He requests for food. Will reattempt swallow evaluation. Speech therapy consult. 04/13. Overnight, he developed VT and was started on amiodarone. HR better this AM. Cardiology will review medications. Patient seen and examined at bedside this AM. He requests for food. He failed a repeat speech evaluation and will need barium swallow. May need PEG placement if he fails. NG tube in place. Vitals reviewed 04/14. Heart rate improved. Remains n.p.o. with NG tube feeds. Video swallow evaluation shows mild abnormal study. Speech therapist to see patient. Patient has not been able to have an MRI of the back due to agitation. He had a CT during the admission that showed possible compression fracture of T12 but this has not been fully evaluated due to patient's ongoing conditions. Labs reviewed-renal function is worse. Discontinue Lasix. 04/15. Has been started on a diet and is tolerating. He pulled out his NG tube last night. Okay to leave NG tube for now. Plan to get an MRI performed today with sedative to evaluate T12 fracture. Patient denies any back pain. Renal function slightly improved today after Lasix was discontinued. Continue IV hydration. Nephrology recommendations appreciated 04/16. He feels better today. MRI could not be done yesterday. Hopefully patient can have an MRI done today. Creatinine 3.1 today. Patient will need placement but will need to have evaluation of possible T12 fracture prior to discharge 04/17. MRI thoracic and lumbar showed acute T12 compression fracture. Discussed case with [place] neurosurgery vendor management consultant who advised no acute intervention is necessary at this time-advised TLSO brace when patient is sitting or ambulatory. He will need follow-up with Dr. Dalton Jack, Dr. Alan Henson, Dr. Tyson Clark [contact number [phone]] after discharge. 04/18. Await Nephrology recs for d/c plans History Interval history: No new issues Hospitalist Physical - Constitutional Vitals: Temp Pulse Resp BP Pulse Ox 97.8 F 63 18 109/67 98 04/18/20 07:11 04/18/20 14:34 04/18/20 14:34 04/18/20 12:16 04/18/20 12:16 General appearance: Present: no acute distress - EENT Eyes: Present: PERRL, EOM intact ENT: hearing intact, clear oral mucosa, dentition normal - Neck Neck: Present: supple, normal ROM - Respiratory Respiratory effort: normal Respiratory: bilateral: CTA - Cardiovascular Rhythm: regular Heart Sounds: Present: S1 & S2. Absent: gallop, rub - Extremities Extremities: no ischemia, No edema, Full ROM - Abdominal General gastrointestinal: soft, non-tender, non-distended, normal bowel sounds - Integumentary Integumentary: Present: clear, warm, dry - Neurologic Neurologic: CNII-XII intact, moves all extremities HEART Score - HEART Score Troponin: Troponin T 0.081 ng/mL (0.00-0.029) H 04/10/20 20:04 Results - Labs CBC & Chem 7: 11/23/20 04:31 04/18/20 04:40 Labs: Laboratory Last Values WBC 8.0 K/mm3 (4.5-11.0) 04/16/20 07:12 RBC 3.70 M/mm3 (3.65-5.03) 04/16/20 07:12 Hgb 9.1 gm/dl (11.8-15.2) L 04/17/20 04:31 Hct 28.8 % (35.5-45.6) L 04/17/20 04:31 MCV 78 fl (84-94) L 04/16/20 07:12 MCH 25 pg (28-32) L 04/16/20 07:12 MCHC 32 % (32-34) 04/16/20 07:12 RDW 21.4 % (13.2-15.2) H 04/16/20 07:12 Plt Count 132 K/mm3 (140-440) L 04/17/20 04:31 Lymph % (Auto) 10.9 % (13.4-35.0) L 04/10/20 20:04 [place] % (Auto) 6.0 % (0.0-7.3) 04/10/20 20:04 Eos % (Auto) 0.6 % (0.0-4.3) 04/10/20 20:04 Baso % (Auto) 1.0 % (0.0-1.8) 04/10/20 20:04 Lymph # (Auto) 0.8 K/mm3 (1.2-5.4) L 04/10/20 20:04 Hopkins # (Auto) 0.4 K/mm3 (0.0-0.8) 04/10/20 20:04 Eos # (Auto) 0.0 K/mm3 (0.0-0.4) 04/10/20 20:04 Baso # (Auto) 0.1 K/mm3 (0.0-0.1) 04/10/20 20:04 Add Manual Diff Complete 04/16/20 07:12 Total Counted 100 04/16/20 07:12 Seg Neutrophils % Office Cleaner 04/16/20 07:12 Seg Neuts % (Manual) 94.0 % (40.0-70.0) H 04/16/20 07:12 Band Neutrophils % 0 % 04/16/20 07:12 Lymphocytes % (Manual) 4.0 % (13.4-35.0) L 04/16/20 07:12 Reactive Lymphs % (Man) 0 % 04/16/20 07:12 Monocytes % (Manual) 1.0 % (0.0-7.3) 04/16/20 07:12 Eosinophils % (Manual) 0 % (0.0-4.3) 04/16/20 07:12 Basophils % (Manual) 0 % (0.0-1.8) 04/16/20 07:12 Metamyelocytes % 1.0 % 04/16/20 07:12 Myelocytes % 0 % 04/16/20 07:12 Promyelocytes % 0 % 04/16/20 07:12 Blast Cells % 0 % 04/16/20 07:12 Nucleated RBC % 1.0 % (0.0-0.9) H 04/16/20 07:12 Seg Neutrophils # 6.1 K/mm3 (1.8-7.7) 04/10/20 20:04 Seg Neutrophils # Man 7.5 K/mm3 (1.8-7.7) 04/16/20 07:12 Band Neutrophils # 0.0 K/mm3 04/16/20 07:12 Lymphocytes # (Manual) 0.3 K/mm3 (1.2-5.4) L 04/16/20 07:12 Abs React Lymphs (Man) 0.0 K/mm3 04/16/20 07:12 Monocytes # (Manual) 0.1 K/mm3 (0.0-0.8) 04/16/20 07:12 Eosinophils # (Manual) 0.0 K/mm3 (0.0-0.4) 04/16/20 07:12 Basophils # (Manual) 0.0 K/mm3 (0.0-0.1) 04/16/20 07:12 Metamyelocytes # 0.1 K/mm3 04/16/20 07:12 Myelocytes # 0.0 K/mm3 04/16/20 07:12 Promyelocytes # 0.0 K/mm3 04/16/20 07:12 Blast Cells # 0.0 K/mm3 04/16/20 07:12 WBC Morphology Not Reportable 04/16/20 07:12 WBC Morphology TNR 04/16/20 07:12 Hypersegmented Neuts Not Reportable 04/16/20 07:12 Hyposegmented Neuts Not Reportable 04/16/20 07:12 Hypogranular Neuts Not Reportable 04/16/20 07:12 Smudge Cells Not Reportable 04/16/20 07:12 Toxic Granulation Not Reportable 04/16/20 07:12 Toxic Vacuolation Not Reportable 04/16/20 07:12 Dohle Bodies Not Reportable 04/16/20 07:12 Pelger-Huet Anomaly Not Reportable 04/16/20 07:12 Barby Rods Not Reportable 04/16/20 07:12 Platelet Estimate Consistent w auto 04/16/20 07:12 Clumped Platelets Not Reportable 04/16/20 07:12 Plt Clumps, EDTA Not Reportable 04/16/20 07:12 Large Platelets Not Reportable 04/16/20 07:12 Giant Platelets Few 04/16/20 07:12 Platelet Satelliting Not Reportable 04/16/20 07:12 Plt Morphology Comment Not Reportable 04/16/20 07:12 RBC Morphology Not Reportable 04/16/20 07:12 Dimorphic RBCs Not Reportable 04/16/20 07:12 Polychromasia Not Reportable 04/16/20 07:12 Hypochromasia Few 04/16/20 07:12 Poikilocytosis Not Reportable 04/16/20 07:12 Anisocytosis Not Reportable 04/16/20 07:12 Microcytosis Not Reportable 04/16/20 07:12 Macrocytosis Not Reportable 04/16/20 07:12 Spherocytes Not Reportable 04/16/20 07:12 Pappenheimer Bodies Not Reportable 04/16/20 07:12 Sickle Cells Not Reportable 04/16/20 07:12 Target Cells 1+ 04/16/20 07:12 Tear Drop Cells Few 04/16/20 07:12 Ovalocytes Not Reportable 04/16/20 07:12 Helmet Cells Not Reportable 04/16/20 07:12 Snell-Beclabito Bodies Not Reportable 04/16/20 07:12 Leslie Rings Not Reportable 04/16/20 07:12 Marcia Cells Not Reportable 04/16/20 07:12 Bite Cells Not Reportable 04/16/20 07:12 Crenated Cell Not Reportable 04/16/20 07:12 Elliptocytes Few 04/16/20 07:12 Acanthocytes (Spur) Not Reportable 04/16/20 07:12 Rouleaux Not Reportable 04/16/20 07:12 Hemoglobin C Crystals Not Reportable 04/16/20 07:12 Schistocytes Not Reportable 04/16/20 07:12 Malaria parasites Not Reportable 04/16/20 07:12 Willie Bodies Not Reportable 04/16/20 07:12 Hem Pathologist Commnt No 04/16/20 07:12 PT 15.5 Sec. (12.2-14.9) H 04/12/20 06:22 INR 1.21 (0.87-1.13) H 04/12/20 06:22 D-Dimer 2029.09 ng/mlDDU (0-234) H 04/11/20 15:11 Heparin Anti-Xa Level 0.35 U.I./ml (0.3-0.7) 04/13/20 05:06 ABG pH 7.505 pH Units (7.350-7.450) H 04/17/20 10:30 ABG pCO2 25.2 mm Hg 04/17/20 10:30 ABG pO2 157.9 mm Hg (80.0-90.0) H 04/17/20 10:30 ABG HCO3 19.4 mmol/L (20.0-26.0) L 04/17/20 10:30 ABG O2 Saturation 99.1 % (95.0-99.0) H 04/17/20 10:30 ABG O2 Content 12.7 (0.0-44) 04/17/20 10:30 ABG Base Excess -2.8 mmol/L (-2.0-3.0) L 04/17/20 10:30 ABG Hemoglobin 9.1 gm/dl (14.0-18.0) L 04/17/20 10:30 ABG Carboxyhemoglobin 1.6 % (0.0-5.0) 04/17/20 10:30 ABG Methemoglobin 0.4 % (0.0-1.5) 04/17/20 10:30 Oxyhemoglobin 97.0 % (95.0-99.0) 04/17/20 10:30 FiO2 35 % 04/17/20 10:30 Sodium 141 mmol/L (137-145) 04/18/20 04:40 Potassium 3.8 mmol/L (3.6-5.0) 04/18/20 04:40 Chloride 101.9 mmol/L (98-107) 04/18/20 04:40 Carbon Dioxide 20 mmol/L (22-30) L 04/18/20 04:40 Anion Gap 23 mmol/L 04/18/20 04:40 BUN 120 mg/dL (9-20) H 04/18/20 04:40 Creatinine 2.7 mg/dL (0.8-1.3) H 04/18/20 04:40 Estimated GFR 23 ml/min 04/18/20 04:40 BUN/Creatinine Ratio 44 % 04/18/20 04:40 Glucose 174 mg/dL (75-100) H 04/18/20 04:40 POC Glucose 273 mg/dL (70-105) H 04/18/20 12:16 Lactic Acid 3.00 mmol/L (0.7-2.0) H* 04/12/20 06:22 Calcium 7.9 mg/dL (8.4-10.2) L 04/18/20 04:40 Phosphorus 5.60 mg/dL (2.5-4.5) H 04/10/20 22:50 Magnesium 2.40 mg/dL (1.7-2.3) H 04/10/20 22:50 Ferritin 135.1 ng/mL (30.0-300.0) 04/11/20 15:11 Total Bilirubin 1.30 mg/dL (0.1-1.2) H 04/18/20 04:40 Direct Bilirubin 0.6 mg/dL (0-0.2) H 04/15/20 04:56 Indirect Bilirubin 0.3 mg/dL 04/15/20 04:56 AST 34 units/L (5-40) 04/18/20 04:40 ALT 165 units/L (7-56) H 04/18/20 04:40 Alkaline Phosphatase 139 units/L (35-129) H 04/18/20 04:40 Lactate Dehydrogenase 664 units/L (91-180) H 04/10/20 20:51 Troponin T 0.081 ng/mL (0.00-0.029) H 04/10/20 20:04 C-Reactive Protein 5.60 mg/dL (0.00-1.30) H 04/10/20 20:51 NT-Pro-B Natriuret Pep > 14966 pg/mL (0-900) H 04/11/20 15:11 Total Protein 6.1 g/dL (6.3-8.2) L 04/18/20 04:40 Albumin 3.3 g/dL (3.9-5) L 04/18/20 04:40 Albumin/Globulin Ratio 1.2 % 04/18/20 04:40 Triglycerides 113 mg/dL (2-149) 04/10/20 20:04 Cholesterol 178 mg/dL (50-199) 04/10/20 20:04 LDL Cholesterol Direct 123 mg/dL (50-130) 04/10/20 20:04 HDL Cholesterol 41 mg/dL (40-59) 04/10/20 20:04 Cholesterol/HDL Ratio 4.34 % 04/10/20 20:04 Procalcitonin 2.47 ng/mL (<0.15) 04/11/20 15:11 TSH 3.640 mlU/mL (0.270-4.200) 04/13/20 10:06 Urine Color Yellow (Yellow) 04/11/20 Unknown Urine Turbidity Clear (Clear) 04/11/20 Unknown Urine pH 5.0 (5.0-7.0) 04/11/20 Unknown Ur Specific [place] 1.009 (1.003-1.030) 04/11/20 Unknown Urine Protein <15 mg/dl mg/dL (Negative) 04/11/20 Unknown Urine Glucose (UA) Neg mg/dL (Negative) 04/11/20 Unknown Urine Ketones Neg mg/dL (Negative) 04/11/20 Unknown Urine Blood Neg (Negative) 04/11/20 Unknown Urine Nitrite Neg (Negative) 04/11/20 Unknown Urine Bilirubin Neg (Negative) 04/11/20 Unknown Urine Urobilinogen < 2.0 mg/dL (<2.0) 04/11/20 Unknown Ur Leukocyte Esterase Neg (Negative) 04/11/20 Unknown Urine WBC (Auto) 1.0 /HPF (0.0-6.0) 04/11/20 Unknown Urine RBC (Auto) 2.0 /HPF (0.0-6.0) 04/11/20 Unknown U Epithel Cells (Auto) < 1.0 /HPF (0-13.0) 04/11/20 Unknown Hyaline Casts 3 /LPF 04/11/20 Unknown Urine Mucus Few /HPF 04/11/20 Unknown Urine Eosinophils None seen (None Seen) 04/11/20 Unknown Urine Creatinine 35.3 mg/dL (0.1-20.0) H 04/11/20 Unknown Urine Sodium 92 mmol/L 04/11/20 Unknown Coronavirus (PCR) Negative (Negative) 04/11/20 Unknown Hepatitis A IgM Ab Non-reactive (NonReactive) 04/12/20 20: Hep Bs Antigen Non-reactive (Negative) 04/12/20 20:23 Hep B Core IgM Ab Non-reactive (NonReactive) 04/12/20 20:23 Hepatitis C Antibody Non-reactive (NonReactive) 04/12/20 20:23 Gay/IV: Voiding Method Incontinent IV Catheter Type [Right Upper INT / Saline Lock arm] IV Catheter Type [Left Wrist] Peripheral IV IV Catheter Type [Right INT / Saline Lock Forearm] IV Catheter Type [Right Wrist] INT / Saline Lock Active Medications - Current Medications Current Medications: Generic Name Dose Route Start Last Admin Trade Name Freq PRN Reason Stop Dose Admin Acetaminophen 650 mg 04/11/20 01:26 Tylenol PO Q6H PRN Pain MILD(1-3)/Fever >100.5/MANCILLA Albuterol/Ipratropium 1 ampul 04/18/20 14:00 04/18/20 14:34 Duoneb *Not For Prn Use* IH Not Given TIDRT [facility] Lipase/Protease/Amylase 1 each 04/11/20 14:22 Pancreazaddison Saenz 10,500 Unit FEEDTUBE PRN PRN For Clogged Feeding Tube Apixaban 2.5 mg 04/17/20 12:00 04/18/20 10:01 Eliquis PO 2.5 mg Q12HR PRAVIN Administration Protocol Insulin Glargine 10 units 04/16/20 22:00 04/17/20 21:37 Lantus SUB-Q 10 units QHS PRAVIN Administration Insulin Human Lispro 0 unit 04/16/20 16:30 04/18/20 08:00 Humalog SUB-Q 2 unit ACHS PRAVIN Administration Protocol Magnesium Hydroxide 30 ml 04/11/20 01:26 Milk Of Magnesia PO Q4H PRN Constipation Metoprolol Tartrate 50 mg 04/17/20 13:00 04/18/20 10:02 Metoprolol PO 50 mg BID PRAVIN Administration Simple Syrup 15 ml 04/11/20 14:22 Simple Syrup FEEDTUBE PRN PRN Hypoglycemia Simple Syrup 30 ml 04/11/20 14:22 Simple Syrup FEEDTUBE PRN PRN Hypoglycemia Sodium Bicarbonate 325 mg 04/11/20 14:22 Sodium Bicarbonate FEEDTUBE PRN PRN For Clogged Feeding Tube Sodium Chloride 10 ml 04/11/20 10:00 04/18/20 10:02 Sodium Chloride Flush Syringe 10 Ml IV 10 ml BID PRAVIN Administration Sodium Chloride 10 ml 04/11/20 01:26 Sodium Chloride Flush Syringe 10 Ml IV PRN PRN LINE FLUSH Nutrition/Malnutrition Assess - Dietary Evaluation Nutrition/Malnutrition Findings: Nutrition Notes Start: 04/11/20 13:41 Freq: Status: Active Protocol: Document 04/17/20 15:09 LM (Rec: 04/17/20 15:13 LM [id number]) Nutrition Notes Initial or Follow up Reassessment Current Diagnosis Acute Kidney Injury,COPD, Coronary Artery Disease, Diabetes,Hypertension,Heart Failure Other Pertinent Diagnosis [place], Crohn's disease, seizure, colitis Current Diet pureed Labs/Tests BUN 111 Cr 2.9 BG 184 Pertinent Medications NS at 60ml/hr Height 5 ft 7 in Weight 64.2 kg [place] Body Weight (kg) 67.27 BMI 22.1 Weight Status Underweight Subjective/Other Information Pt had MBS. TICKET CLERK recommends Pureed with nectar liquids. Pt ate 25% of breakfast. RN stated it is hard to keep pt awake. Burn Absent Trauma Absent Difficulty In Swallowing,Chewing Current % PO Poor (25-49%) Minimum of two criteria No #1 Nutrition Diagnosis Inadequate oral intake As Evidenced by Signs and Symptoms pt on pureed diet Diagnosis Progress(for reassessment Improved documentation) Is patient on ventilator? No Is Patient Ambulatory and/or Out of Bed No REE-([facility]-confined to bed) 2473.269 Calculation Used for Recommendations [facility] Additional Notes Protein Needs: 52-78 g (0.8-1. 2 g/kg) Fluid Needs: 1 mL/kcal Nutrition Intervention Change Diet Order: Pureed Nutrition Support: D/C Add Supplement/Snack (indicate name/kcal Nepro daily /protein ) Goal #1 Meet at least 75% of energy an protein needs Anticipated Discharge Needs: Unable to determine at this time Follow-Up By: 04/19/20 Additional Comments F/U for PO/ONS intakes
[2020-04-18] MEDS: INSULIN GLARGINE 100 UNITS/ML SUB-Q SCH (22:09)
[2020-04-19 05:26] LABS: Hematocrit 28.5 % (35.5-45.6); Mean Corpuscular HGB Conc 32 % (32-34); Mean Corpuscular Volume 77 fl (84-94); Platelet Count 107 K/mm3 (140-440); Red Blood Count 3.73 M/mm3 (3.65-5.03)
[2020-04-19 05:29] LABS: Red Cell Distribution Width 21.2 % (13.2-15.2)
[2020-04-19 05:36] LABS: Alanine Aminotransferase 126 units/L (7-56); Albumin 3.2 g/dL (3.9-5); BUN/Creatinine Ratio 42; Blood Urea Nitrogen 110 mg/dL (9-20); Calcium 8.3 mg/dL (8.4-10.2); Hemolysis Index 9
[2020-04-19 06:11] LABS: Basophils % (Manual) 0 % (0.0-1.8); Eosinophils % (Manual) 0 % (0.0-4.3); Total Cells Counted 100
[2020-04-19 06:12] LABS: Anisocytosis 1+; Hypochromasia 1+; Ovalocytes Few; Poikilocytosis 1+
[2020-04-19 06:13] LABS: Platelet Estimate Consistent w Auto
[2020-04-19] MEDS: IPRATROPIUM/ALBUTEROL SULFATE 3 ML AMPUL.NEB IH SCH ×3 (07:32→20:14)
[2020-04-19] MEDS: INSULIN LISPRO 100 UNIT/ML VIAL 3 mL SUB-Q SCH ×4 (08:51→21:59)
--- NOTE | 2020-04-19 08:59 | XRay Report ---
CHEST 1 VIEW INDICATION / CLINICAL INFORMATION: possible aspiration. COMPARISON: 04/17/2020 FINDINGS: SUPPORT DEVICES: None. HEART / MEDIASTINUM: Stable. LUNGS / PLEURA: Minimally worsened bibasilar pulmonary opacities. Previously noted linear atelectasis in the left lung base has resolved. No pneumothorax. ADDITIONAL FINDINGS: No significant additional findings. IMPRESSION: 1. Minimally worsened bibasilar pulmonary opacities. 2. Linear atelectasis in the left lung base has resolved. Signer Name: Emanuel Iqbal MD Signed: 04/19/2020 8:55 AM Workstation Name: [id number]
[2020-04-19] MEDS: METOPROLOL TARTRATE 50 MG TAB PO SCH ×2 (09:51→22:04)
[2020-04-19] MEDS: APIXABAN 2.5 MG TAB PO SCH ×2 (10:00→21:50)
--- NOTE | 2020-04-19 12:10 | Progress Note ---
Assessment and Plan Assessment and plan: ---Acute respiratory failure Current Visit: Yes Status: Acute Plan to address problem: Slightly improving but still needs oxygen to maintain sats. CT chest x-ray ordered Has no pneumonia and no sepsis. Continue oxygen supplementation COVID-19 test negative --Acute on chronic systolic CHF (congestive heart failure) Current Visit: Yes Status: Acute Plan to address problem: Holding Lasix due to KIRT Will monitor daily weight, inputs and outputs. Monitor renal function closely Cardiology on board --KIRT (acute kidney injury) Current Visit: Yes Status: Acute Plan to address problem: Creatinine stable at 3.1 Discontinued Lasix. Vasomotor nephropathy Nephrology following --Colitis Current Visit: Yes Status: Acute Plan to address problem: Resolved GI recommendations appreciated --Arrhythmias-atrial fibrillation versus nonsustained ventricular tachycardia Current Visit: Yes Status: Acute Plan to address problem: Initially started on amiodarone but discontinued due to elevated LFTs Now on metoprolol every 6 and rate is currently controlled. Started on low-dose apixaban 2.5 mg twice daily Cardiology recommendations appreciated --Diabetes mellitus type 2 in nonobese Current Visit: No Status: Acute Plan to address problem: Lantus and sliding scale insulin. --Hyperkalemia and metabolic acidosis Current Visit: Yes Status: Acute Plan to address problem: Resolved --T12 compression fracture Current Visit: No Status: Likely chronic Plan to address problem: CT abdomen showed acute appearing T12 compression fracture 04/14. MRI thoracic without contrast ordered to further evaluate. 04/15. Patient is agitated and unable to get an MRI. 04/16. Awaiting MRI without contrast thoracic. Plan to use sedatives today. Informed RN. If positive for acute fracture, patient will need to be transferred for neurosurgery evaluation. 04/17. MRI thoracic and lumbar showed acute T12 compression fracture. Discussed case with [place] neurosurgery disability liaison officer who advised no acute intervention is necessary at this time-advised TLSO brace when patient is sitting or ambulatory. He will need follow-up with Dr. Dalton Jack, Dr. Alan Henson, Dr. Tyson Clark [contact number [phone]] after discharge. ---Elevated LFTs Current Visit: Yes Status: Acute Plan to address problem: Improving US abdomen shows no acute pathology ---Infrarenal aortic aneurysm Current Visit: No Status: Acute Plan to address problem: 3.8 cm in diameter Needs to follow-up with vascular surgery at discharge for monitoring -Anemia and thrombocytopenia Current Visit: No Status: Acute Plan to address problem: Monitor platelets ?HIT - Hold heparin for now Peripheral smear reviewed - target cells, tear drops. Hematology consulted -- DVT prophylaxis Current Visit: No Status: Acute Plan to address problem: Hold heparin for now. Started on anticoagulation per cardiology. HIT antibody sent --Full code status Current Visit: No Status: Acute Disposition-home with hospice as per patient son plan stable 04/11. Patient seen and examined at bedside this morning. Patient is on BiPAP. Patient is eager to go home. Otherwise denies any chest pain or palpitations. Patient CT showed possible compression fracture of T12, it is unknown if this is new. We will get MRI without contrast of the thoracic and lumbar to further evaluate. If patient actually has an acute compression fracture, he will need to have a neurosurgery evaluation so will need to be transferred to another facility for this. Otherwise, patient continue to monitor patient's respiratory status while in the IMCU. Patient reportedly failed a swallow evaluation and will need to have an NG tube placement. Tried to call son on number provided in the chart and left a message. Awaiting callback. Labs reviewed-patient has elevated inflammatory cnarjhi-X-guiuy, LDH. COVID-19 test has been ordered. Started patient on steroids. Ordered stat BMP, ABG, D-dimer, proBNP, ferritin, LDH. 04/12. COVID -19 test is negative. His breathing has improved so was placed on nasal cannula. Cardiology adjusted meds today. He failed swallow evaluation yesterday. He requests for food. Will reattempt swallow evaluation. Speech therapy consult. 04/13. Overnight, he developed VT and was started on amiodarone. HR better this AM. Cardiology will review medications. Patient seen and examined at bedside this AM. He requests for food. He failed a repeat speech evaluation and will need barium swallow. May need PEG placement if he fails. NG tube in place. Vitals reviewed 04/14. Heart rate improved. Remains n.p.o. with NG tube feeds. Video swallow evaluation shows mild abnormal study. Speech therapist to see patient. Patient has not been able to have an MRI of the back due to agitation. He had a CT during the admission that showed possible compression fracture of T12 but this has not been fully evaluated due to patient's ongoing conditions. Labs reviewed-renal function is worse. Discontinue Lasix. 04/15. Has been started on a diet and is tolerating. He pulled out his NG tube last night. Okay to leave NG tube for now. Plan to get an MRI performed today with sedative to evaluate T12 fracture. Patient denies any back pain. Renal function slightly improved today after Lasix was discontinued. Continue IV hydration. Nephrology recommendations appreciated 04/16. He feels better today. MRI could not be done yesterday. Hopefully patient can have an MRI done today. Creatinine 3.1 today. Patient will need placement but will need to have evaluation of possible T12 fracture prior to discharge 04/17. MRI thoracic and lumbar showed acute T12 compression fracture. Discussed case with [place] neurosurgery disability liaison officer who advised no acute intervention is necessary at this time-advised TLSO brace when patient is sitting or ambulatory. He will need follow-up with Dr. Dalton Jack, Dr. Alan Henson, Dr. Tyson Clark [contact number [phone]] after discharge. 04/18. Await Nephrology recs for d/c plans 04/19/2020. Patient reportedly with choking/coughing with swallowing. We will change to n.p.o. status right now. Speech reevaluation. Check chest x-ray to rule out aspiration pneumonia. Await nephrology recommendations for discharge. Creatinine slowly improving. CT of abdomen negative for hydronephrosis. BUN increasing. Therefore, we will check Hemoccult of stool to rule out GI bleed. Hemoglobin has been stable History Interval history: Nurse reports patient having some difficulty swallowing with coughing/choking. Hospitalist Physical - Constitutional Vitals: Temp Pulse Resp BP Pulse Ox 97.8 F 68 18 131/67 100 04/19/20 07:39 04/19/20 07:39 04/19/20 07:32 04/19/20 07:39 04/19/20 07:39 General appearance: Present: no acute distress - EENT Eyes: Present: PERRL, EOM intact ENT: hearing intact, clear oral mucosa, dentition normal - Neck Neck: Present: supple, normal ROM - Respiratory Respiratory effort: normal Respiratory: bilateral: CTA - Cardiovascular Rhythm: regular Heart Sounds: Present: S1 & S2. Absent: gallop, rub - Extremities Extremities: no ischemia, No edema, Full ROM - Abdominal General gastrointestinal: soft, non-tender, non-distended, normal bowel sounds - Integumentary Integumentary: Present: clear, warm, dry - Neurologic Neurologic: CNII-XII intact, moves all extremities HEART Score - HEART Score Troponin: Troponin T 0.081 ng/mL (0.00-0.029) H 04/10/20 20:04 Results - Labs CBC & Chem 7: 04/19/20 04:43 04/19/20 04:43 Labs: Laboratory Last Values WBC 11.1 K/mm3 (4.5-11.0) H 04/19/20 04:43 RBC 3.73 M/mm3 (3.65-5.03) 04/19/20 04:43 Hgb 9.0 gm/dl (11.8-15.2) L 04/19/20 04:43 Hct 28.5 % (35.5-45.6) L 04/19/20 04:43 MCV 77 fl (84-94) L 04/19/20 04:43 MCH 24 pg (28-32) L 04/19/20 04:43 MCHC 32 % (32-34) 04/19/20 04:43 RDW 21.2 % (13.2-15.2) H 04/19/20 04:43 Plt Count 107 K/mm3 (140-440) L 04/19/20 04:43 Lymph % (Auto) 10.9 % (13.4-35.0) L 04/10/20 20:04 [place] % (Auto) 6.0 % (0.0-7.3) 04/10/20 20:04 Eos % (Auto) 0.6 % (0.0-4.3) 04/10/20 20:04 Baso % (Auto) 1.0 % (0.0-1.8) 04/10/20 20:04 Lymph # (Auto) 0.8 K/mm3 (1.2-5.4) L 04/10/20 20:04 [place] # (Auto) 0.4 K/mm3 (0.0-0.8) 04/10/20 20:04 Eos # (Auto) 0.0 K/mm3 (0.0-0.4) 04/10/20 20:04 Baso # (Auto) 0.1 K/mm3 (0.0-0.1) 04/10/20 20:04 Add Manual Diff Complete 04/19/20 04:43 Total Counted 100 04/19/20 04:43 Seg Neutrophils % Boat Loader Helper 04/19/20 04:43 Seg Neuts % (Manual) 95.0 % (40.0-70.0) H 04/19/20 04:43 Band Neutrophils % 0 % 04/19/20 04:43 Lymphocytes % (Manual) 4.0 % (13.4-35.0) L 04/19/20 04:43 Reactive Lymphs % (Man) 0 % 04/19/20 04:43 Monocytes % (Manual) 1.0 % (0.0-7.3) 04/19/20 04:43 Eosinophils % (Manual) 0 % (0.0-4.3) 04/19/20 04:43 Basophils % (Manual) 0 % (0.0-1.8) 04/19/20 04:43 Metamyelocytes % 0 % 04/19/20 04:43 Myelocytes % 0 % 04/19/20 04:43 Promyelocytes % 0 % 04/19/20 04:43 Blast Cells % 0 % 04/19/20 04:43 Nucleated RBC % 2.0 % (0.0-0.9) H 04/19/20 04:43 Seg Neutrophils # 6.1 K/mm3 (1.8-7.7) 04/10/20 20:04 Seg Neutrophils # Man 10.5 K/mm3 (1.8-7.7) H 04/19/20 04:43 Band Neutrophils # 0.0 K/mm3 04/19/20 04:43 Lymphocytes # (Manual) 0.4 K/mm3 (1.2-5.4) L 04/19/20 04:43 Abs React Lymphs (Man) 0.0 K/mm3 04/19/20 04:43 Monocytes # (Manual) 0.1 K/mm3 (0.0-0.8) 04/19/20 04:43 Eosinophils # (Manual) 0.0 K/mm3 (0.0-0.4) 04/19/20 04:43 Basophils # (Manual) 0.0 K/mm3 (0.0-0.1) 04/19/20 04:43 Metamyelocytes # 0.0 K/mm3 04/19/20 04:43 Myelocytes # 0.0 K/mm3 04/19/20 04:43 Promyelocytes # 0.0 K/mm3 04/19/20 04:43 Blast Cells # 0.0 K/mm3 04/19/20 04:43 WBC Morphology Not Reportable 04/19/20 04:43 Hypersegmented Neuts Not Reportable 04/19/20 04:43 Hyposegmented Neuts Not Reportable 04/19/20 04:43 Hypogranular Neuts Not Reportable 04/19/20 04:43 Smudge Cells Not Reportable 04/19/20 04:43 Toxic Granulation Not Reportable 04/19/20 04:43 Toxic Vacuolation Not Reportable 04/19/20 04:43 Dohle Bodies Not Reportable 04/19/20 04:43 [place] Anomaly Not Reportable 04/19/20 04:43 Barby Rods Not Reportable 04/19/20 04:43 Platelet Estimate Consistent w auto 04/19/20 04:43 Clumped Platelets Not Reportable 04/19/20 04:43 Plt Clumps, EDTA Not Reportable 04/19/20 04:43 Large Platelets Not Reportable 04/19/20 04:43 Giant Platelets Not Reportable 04/19/20 04:43 Platelet Satelliting Not Reportable 04/19/20 04:43 Plt Morphology Comment Not Reportable 04/19/20 04:43 RBC Morphology Not Reportable 04/19/20 04:43 Dimorphic RBCs Not Reportable 04/19/20 04:43 Polychromasia Not Reportable 04/19/20 04:43 Hypochromasia 1+ 04/19/20 04:43 Poikilocytosis 1+ 04/19/20 04:43 Anisocytosis 1+ 04/19/20 04:43 Microcytosis Not Reportable 04/19/20 04:43 Macrocytosis Not Reportable 04/19/20 04:43 Spherocytes Not Reportable 04/19/20 04:43 Pappenheimer Bodies Not Reportable 04/19/20 04:43 Sickle Cells Not Reportable 04/19/20 04:43 Target Cells Not Reportable 04/19/20 04:43 Tear Drop Cells Not Reportable 04/19/20 04:43 Ovalocytes Few 04/19/20 04:43 Helmet Cells Not Reportable 04/19/20 04:43 [place] Bodies Not Reportable 04/19/20 04:43 [place] Rings Not Reportable 04/19/20 04:43 Marcia Cells Not Reportable 04/19/20 04:43 Bite Cells Not Reportable 04/19/20 04:43 Crenated Cell Not Reportable 04/19/20 04:43 Elliptocytes Few 04/19/20 04:43 Acanthocytes (Spur) Not Reportable 04/19/20 04:43 Rouleaux Not Reportable 04/19/20 04:43 Hemoglobin C Crystals Not Reportable 04/19/20 04:43 Schistocytes Not Reportable 04/19/20 04:43 Malaria parasites Not Reportable 04/19/20 04:43 Willie Bodies Not Reportable 04/19/20 04:43 Hem Pathologist Commnt No 04/19/20 04:43 PT 15.5 Sec. (12.2-14.9) H 04/12/20 06:22 INR 1.21 (0.87-1.13) H 04/12/20 06:22 D-Dimer 2029.09 ng/mlDDU (0-234) H 04/11/20 15:11 Heparin Anti-Xa Level 0.35 U.I./ml (0.3-0.7) 04/13/20 05:06 ABG pH 7.505 pH Units (7.350-7.450) H 04/17/20 10:30 ABG pCO2 25.2 mm Hg 04/17/20 10:30 ABG pO2 157.9 mm Hg (80.0-90.0) H 04/17/20 10:30 ABG HCO3 19.4 mmol/L (20.0-26.0) L 04/17/20 10:30 ABG O2 Saturation 99.1 % (95.0-99.0) H 04/17/20 10:30 ABG O2 Content 12.7 (0.0-44) 04/17/20 10:30 ABG Base Excess -2.8 mmol/L (-2.0-3.0) L 04/17/20 10:30 ABG Hemoglobin 9.1 gm/dl (14.0-18.0) L 04/17/20 10:30 ABG Carboxyhemoglobin 1.6 % (0.0-5.0) 04/17/20 10:30 ABG Methemoglobin 0.4 % (0.0-1.5) 04/17/20 10:30 Oxyhemoglobin 97.0 % (95.0-99.0) 04/17/20 10:30 FiO2 35 % 04/17/20 10:30 Sodium 144 mmol/L (137-145) 04/19/20 04:43 Potassium 3.4 mmol/L (3.6-5.0) L 04/19/20 04:43 Chloride TNR 04/19/20 04:43 Carbon Dioxide 25 mmol/L (22-30) 04/19/20 04:43 Anion Gap 16 mmol/L 04/19/20 04:43 BUN 110 mg/dL (9-20) H 04/19/20 04:43 Creatinine 2.6 mg/dL (0.8-1.3) H 04/19/20 04:43 Estimated GFR 24 ml/min 04/19/20 04:43 BUN/Creatinine Ratio 42 % 04/19/20 04:43 Glucose 215 mg/dL (75-100) H 04/19/20 04:43 POC Glucose 175 mg/dL (70-105) H 04/19/20 08:00 Lactic Acid 3.00 mmol/L (0.7-2.0) H* 04/12/20 06:22 Calcium 8.3 mg/dL (8.4-10.2) L 04/19/20 04:43 Phosphorus 5.60 mg/dL (2.5-4.5) H 04/10/20 22:50 Magnesium 2.40 mg/dL (1.7-2.3) H 04/10/20 22:50 Ferritin 135.1 ng/mL (30.0-300.0) 04/11/20 15:11 Total Bilirubin 1.20 mg/dL (0.1-1.2) 04/19/20 04:43 Direct Bilirubin 0.6 mg/dL (0-0.2) H 04/15/20 04:56 Indirect Bilirubin 0.3 mg/dL 04/15/20 04:56 AST 24 units/L (5-40) 04/19/20 04:43 ALT 126 units/L (7-56) H 04/19/20 04:43 Alkaline Phosphatase 140 units/L (35-129) H 04/19/20 04:43 Lactate Dehydrogenase 664 units/L (91-180) H 04/10/20 20:51 Troponin T 0.081 ng/mL (0.00-0.029) H 04/10/20 20:04 C-Reactive Protein 5.60 mg/dL (0.00-1.30) H 04/10/20 20:51 NT-Pro-B Natriuret Pep > 00405 pg/mL (0-900) H 04/11/20 15:11 Total Protein 5.8 g/dL (6.3-8.2) L 04/19/20 04:43 Albumin 3.2 g/dL (3.9-5) L 04/19/20 04:43 Albumin/Globulin Ratio 1.2 % 04/19/20 04:43 Triglycerides 113 mg/dL (2-149) 04/10/20 20:04 Cholesterol 178 mg/dL (50-199) 04/10/20 20:04 LDL Cholesterol Direct 123 mg/dL (50-130) 04/10/20 20:04 HDL Cholesterol 41 mg/dL (40-59) 04/10/20 20:04 Cholesterol/HDL Ratio 4.34 % 04/10/20 20:04 Procalcitonin 2.47 ng/mL (<0.15) 04/11/20 15:11 TSH 3.640 mlU/mL (0.270-4.200) 04/13/20 10:06 Urine Color Yellow (Yellow) 04/11/20 Unknown Urine Turbidity Clear (Clear) 04/11/20 Unknown Urine pH 5.0 (5.0-7.0) 04/11/20 Unknown Ur Specific [place] 1.009 (1.003-1.030) 04/11/20 Unknown Urine Protein <15 mg/dl mg/dL (Negative) 04/11/20 Unknown Urine Glucose (UA) Neg mg/dL (Negative) 04/11/20 Unknown Urine Ketones Neg mg/dL (Negative) 04/11/20 Unknown Urine Blood Neg (Negative) 04/11/20 Unknown Urine Nitrite Neg (Negative) 04/11/20 Unknown Urine Bilirubin Neg (Negative) 04/11/20 Unknown Urine Urobilinogen < 2.0 mg/dL (<2.0) 04/11/20 Unknown Ur Leukocyte Esterase Neg (Negative) 04/11/20 Unknown Urine WBC (Auto) 1.0 /HPF (0.0-6.0) 04/11/20 Unknown Urine RBC (Auto) 2.0 /HPF (0.0-6.0) 04/11/20 Unknown U Epithel Cells (Auto) < 1.0 /HPF (0-13.0) 04/11/20 Unknown Hyaline Casts 3 /LPF 04/11/20 Unknown Urine Mucus Few /HPF 04/11/20 Unknown Urine Eosinophils None seen (None Seen) 04/11/20 Unknown Urine Creatinine 35.3 mg/dL (0.1-20.0) H 04/11/20 Unknown Urine Sodium 92 mmol/L 04/11/20 Unknown Coronavirus (PCR) Negative (Negative) 04/11/20 Unknown Hepatitis A IgM Ab Non-reactive (NonReactive) 04/12/20 20:23 Hep Bs Antigen Non-reactive (Negative) 04/12/20 20:23 Hep B Core IgM Ab Non-reactive (NonReactive) 04/12/20 20:23 Hepatitis C Antibody Non-reactive (NonReactive) 04/12/20 20:23 Gay/IV: Voiding Method Incontinent IV Catheter Type [Right Upper INT / Saline Lock arm] IV Catheter Type [Left Wrist] Peripheral IV IV Catheter Type [Right INT / Saline Lock Forearm] IV Catheter Type [Right Wrist] INT / Saline Lock Active Medications - Current Medications Current Medications: Generic Name Dose Route Start Last Admin Trade Name Freq PRN Reason Stop Dose Admin Acetaminophen 650 mg 04/11/20 01:26 Tylenol PO Q6H PRN Pain MILD(1-3)/Fever >100.5/MANCILLA Albuterol/Ipratropium 1 ampul 04/18/20 14:00 04/19/20 07:32 Duoneb *Not For Prn Use* IH 1 ampul TIDRT PRAVIN Administration Lipase/Protease/Amylase 1 each 04/11/20 14:22 Pancremiley Saenz 10,500 Unit FEEDTUBE PRN PRN For Clogged Feeding Tube Apixaban 2.5 mg 04/17/20 12:00 04/18/20 22:15 Eliquis PO 2.5 mg Q12HR PRAVIN Administration Protocol Insulin Glargine 10 units 04/16/20 22:00 04/18/20 22:09 Lantus SUB-Q Not Given QHS PRAVIN Insulin Human Lispro 0 unit 04/16/20 16:30 04/18/20 22:09 Humalog SUB-Q Not Given ACHS [facility] Protocol Magnesium Hydroxide 30 ml 04/11/20 01:26 Milk Of Magnesia PO Q4H PRN Constipation Metoprolol Tartrate 50 mg 04/17/20 13:00 04/18/20 22:15 Metoprolol PO 50 mg BID PRAVIN Administration Simple Syrup 15 ml 04/11/20 14:22 Simple Syrup FEEDTUBE PRN PRN Hypoglycemia Simple Syrup 30 ml 04/11/20 14:22 Simple Syrup FEEDTUBE PRN PRN Hypoglycemia Sodium Bicarbonate 325 mg 04/11/20 14:22 Sodium Bicarbonate FEEDTUBE PRN PRN For Clogged Feeding Tube Sodium Chloride 10 ml 04/11/20 10:00 04/18/20 22:12 Sodium Chloride Flush Syringe 10 Ml IV 10 ml BID PRAVIN Administration Sodium Chloride 10 ml 04/11/20 01:26 Sodium Chloride Flush Syringe 10 Ml IV PRN PRN LINE FLUSH Nutrition/Malnutrition Assess - Dietary Evaluation Nutrition/Malnutrition Findings: Nutrition Notes Start: 04/11/20 13:41 Freq: Status: Active Protocol: Document 04/17/20 15:09 LM (Rec: 04/17/20 15:13 LM [id number]) Nutrition Notes Initial or Follow up Reassessment Current Diagnosis Acute Kidney Injury,COPD, Coronary Artery Disease, Diabetes,Hypertension,Heart Failure Other Pertinent Diagnosis [place], Crohn's disease, seizure, colitis Current Diet pureed Labs/Tests BUN 111 Cr 2.9 BG 184 Pertinent Medications NS at 60ml/hr Height 5 ft 7 in Weight 64.2 kg [place] Body Weight (kg) 67.27 BMI 22.1 Weight Status Underweight Subjective/Other Information Pt had MBS. FORMULATOR recommends Pureed with nectar liquids. Pt ate 25% of breakfast. RN stated it is hard to keep pt awake. Burn Absent Trauma Absent Difficulty In Swallowing,Chewing Current % PO Poor (25-49%) Minimum of two criteria No #1 Nutrition Diagnosis Inadequate oral intake As Evidenced by Signs and Symptoms pt on pureed diet Diagnosis Progress(for reassessment Improved documentation) Is patient on ventilator? No Is Patient Ambulatory and/or Out of Bed No REE-([facility]-confined to bed) [phone] Calculation Used for Recommendations [facility] Additional Notes Protein Needs: 52-78 g (0.8-1. 2 g/kg) Fluid Needs: 1 mL/kcal Nutrition Intervention Change Diet Order: Pureed Nutrition Support: D/C Add Supplement/Snack (indicate name/kcal Nepro daily /protein ) Goal #1 Meet at least 75% of energy an protein needs Anticipated Discharge Needs: Unable to determine at this time Follow-Up By: 04/19/20 Additional Comments F/U for PO/ONS intakes
--- NOTE | 2020-04-19 12:47 | Progress Note ---
Assessment and Plan - Patient Problems (1) Chronic left ventricular systolic heart failure Current Visit: Yes Status: Acute Plan to address problem: We will continue guideline directed medical therapy for chronic systolic left ventricular dysfunction. (2) Paroxysmal atrial fibrillation Current Visit: Yes Status: Acute Plan to address problem: Amiodarone was discontinued due to elevated liver enzymes, but patient is on beta-blockers, and has no recurrent atrial fibrillation. During this admission, we we have started the patient on low-dose Eliquis for stroke prophylaxis. (3) Coronary artery disease Current Visit: Yes Status: Acute Plan to address problem: Patient has history of coronary artery disease with stents in the proximal circumflex and mid right coronary artery, both patent on repeat cardiac catheterization 2 years ago. He is on medical therapy for small vessel disease, and currently asymptomatic for chest pain. We will continue medical therapy and risk factor modification. Subjective Date of service: 04/19/20 Interval history: Patient is comfortable, no cardiac complaints. Objective Vital Signs Temp Pulse Pulse Pulse Resp Resp Resp 04/19/20 07:39 97.8 F 68 04/19/20 07:35 04/19/20 07:32 69 18 04/19/20 03:29 97.8 F 65 18 04/19/20 00:43 67 18 04/18/20 23:15 97.9 F 63 18 04/18/20 22:46 22 04/18/20 20:00 62 04/18/20 19:27 98.4 F 62 18 04/18/20 15:43 97.7 F 63 20 04/18/20 14:34 63 61 18 20 BP Pulse Ox 04/19/20 07:39 131/67 100 04/19/20 07:35 98 04/19/20 07:32 04/19/20 03:29 116/65 96 04/19/20 00:43 96 04/18/20 23:15 116/57 97 04/18/20 22:46 04/18/20 20:00 04/18/20 19:27 110/55 100 04/18/20 15:43 133/69 91 04/18/20 14:34 - Physical Examination General: No Apparent Distress, Cachectic HEENT: Positive: PERRL Neck: Positive: trachea midline Cardiac: Positive: Irregularly Regular Lungs: Positive: Decreased Breath Sounds Neuro: Positive: Weakness Abdomen: Positive: Soft Skin: Positive: Clear Extremities: Absent: edema - Labs and Meds Cardiac Enzymes 04/19/20 Range/Units 04:43 AST 24 (5-40) units/L CBC 04/19/20 Range/Units 04:43 WBC 11.1 H (4.5-11.0) K/mm3 RBC 3.73 (3.65-5.03) M/mm3 Hgb 9.0 L (11.8-15.2) gm/dl Hct 28.5 L (35.5-45.6) % Plt Count 107 L (140-440) K/mm3 Comprehensive Metabolic Panel 04/19/20 Range/Units 04:43 Sodium 144 (137-145) mmol/L Potassium 3.4 L (3.6-5.0) mmol/L Chloride TNR Carbon Dioxide 25 (22-30) mmol/L BUN 110 H (9-20) mg/dL Creatinine 2.6 H (0.8-1.3) mg/dL Glucose 215 H (75-100) mg/dL Calcium 8.3 L (8.4-10.2) mg/dL AST 24 (5-40) units/L ALT 126 H (7-56) units/L Alkaline Phosphatase 140 H (35-129) units/L Total Protein 5.8 L (6.3-8.2) g/dL Albumin 3.2 L (3.9-5) g/dL
--- NOTE | 2020-04-19 15:07 | Progress Note ---
Assessment and Plan 1. Acute kidney injury: Vasomotor KIRT superimposed on CKD. CT abdomen negative for hydro. Monitor renal function. Creatinine level slowly improving. Renal prognosis is guarded. Avoid nephrotoxic agents. Meds dosage based on GFR. 2. FEN: Hypokalemia, replete K, monitor. Anion-gap metabolic acidosis, 2/2 KIRT / CKD, monitor. Sod bicarbonate as needed. Monitor lytes and volume status. 3. Acute hypoxic respiratory failure: Was on BIPAP. Possibly secondary to the CHF and underlying pneumonia. COVID-19 test negative. 4. Chronic CHF: Monitor daily weight, intake and outputs. Followed by Cards. 5. Colitis: Monitor. Seen by GI. 6. Anemia, POA: Monitor. 7. Elevated Transaminases: Monitor. 8. DM type 2. 9. HTN: Monitor BP. Subjective: Patient was seen and examined at the bedside. Examination: General appearance: well-developed, appears stated age, on restrains HEENT: ATNC, pupils equal Neck: trachea midline Respiratory: ctab Heart: regular, S1S2, no murmur Gastrointestinal: soft, normoactive bowel sounds, not tender Integumentary: no rash, warm and dry Neurologic: alert, moving extremities, answers few questions, confused Ext: no edema Subjective Date of service: 04/19/20 Objective - Vital Signs Vital signs: Vital Signs - 12hr 04/19/20 04/19/20 04/19/20 03:29 07:32 07:35 Temperature 97.8 F Pulse Rate 65 Pulse Rate [ 69 Posterior Bilateral Throughout] Respiratory 18 Rate Respiratory 18 Rate [Posterior Bilateral Throughout] Blood Pressure 116/65 O2 Sat by Pulse 96 98 Oximetry 04/19/20 04/19/20 07:39 14:00 Temperature 97.8 F Pulse Rate 68 Pulse Rate [ 73 Posterior Bilateral Throughout] Respiratory Rate Respiratory 18 Rate [Posterior Bilateral Throughout] Blood Pressure 131/67 O2 Sat by Pulse 100 Oximetry - Lab 04/19/20 04:43 04/19/20 04:43 Most recent lab results ABG pH 7.505 pH Units (7.350-7.450) H 04/17/20 10:30 ABG pCO2 25.2 mm Hg 04/17/20 10:30 ABG pO2 157.9 mm Hg (80.0-90.0) H 04/17/20 10:30 ABG HCO3 19.4 mmol/L (20.0-26.0) L 04/17/20 10:30 ABG O2 Saturation 99.1 % (95.0-99.0) H 04/17/20 10:30 Calcium 8.3 mg/dL (8.4-10.2) L 04/19/20 04:43 Phosphorus 5.60 mg/dL (2.5-4.5) H 04/10/20 22:50 Magnesium 2.40 mg/dL (1.7-2.3) H 04/10/20 22:50 Urine Creatinine 35.3 mg/dL (0.1-20.0) H 04/11/20 Unknown Urine Sodium 92 mmol/L 04/11/20 Unknown Medications & Allergies - Medications Allergies/Adverse Reactions: Allergies Sulfa (Sulfonamide Antibiotics) Allergy (Verified 07/30/18 17:44) Rash Home Medications: Home Medications Medication Instructions Recorded Confirmed Last Taken Type Gabapentin 300 mg PO BID 09/19/16 01/29/20 09/18/16 History 300 mg Metformin HCl [metFORMIN ER 500 mg PO BIDWM 03/28/17 01/29/20 Unknown History Gastric] AtorvaSTATin 10 mg PO QHS #30 tablet 12/21/17 01/29/20 Unknown Rx Ranolazine ER [Ranexa ER] 500 mg PO BID #60 tablet 12/21/17 01/29/20 Unknown Rx Aspirin 325 mg PO QDAY #30 tablet 01/12/18 01/29/20 Unknown Rx Diphenoxylate/Atropine [Lomotil] 1 tab PO Q8H PRN 01/15/18 01/29/20 Unknown Hi story Insulin Lispro [HumaLOG VIAL] See Protocol SQ ACHS 01/15/18 01/29/20 Unknown History Promethazine [Phenergan] 25 mg PO Q4H PRN 01/15/18 01/29/20 Unknown History Albuterol Mdi (or & Nicu Only) 2 puff IH Q4HR PRN #1 inhalation 12/21/18 01/29/20 Unknown Rx [ProAir HFA Inhaler] Furosemide [Lasix TAB] 20 mg PO QDAY #30 tablet 02/03/20 Unknown Rx Metoprolol Xl [Metoprolol 25 mg PO DAILY #60 tablet 02/03/20 Unknown Rx SUCCINATE ER TAB] levETIRAcetam [Keppra TAB] 500 mg PO BID #120 tablet 02/03/20 Unknown Rx levoFLOXacin [Levaquin TAB] 500 mg PO QDAY #5 tablet 02/03/20 Unknown Rx Active Medications: Generic Name Dose Route Start Last Admin Trade Name Freq PRN Reason Stop Dose Admin Acetaminophen 650 mg 04/11/20 01:26 Tylenol PO Q6H PRN Pain MILD(1-3)/Fever >100.5/MANCILLA Albuterol/Ipratropium 1 ampul 04/18/20 14:00 04/19/20 14:48 Duoneb *Not For Prn Use* IH 1 ampul TIDRT PRAVIN Administration Lipase/Protease/Amylase 1 each 04/11/20 14:22 Pancreazaddison Saenz 10,500 Unit FEEDTUBE PRN PRN For Clogged Feeding Tube Apixaban 2.5 mg 04/17/20 12:00 04/18/20 22:15 Eliquis PO 2.5 mg Q12HR PRAVIN Administration Protocol Insulin Glargine 10 units 04/16/20 22:00 04/18/20 22:09 Lantus SUB-Q Not Given QHS PRAVIN Insulin Human Lispro 0 unit 04/16/20 16:30 04/18/20 22:09 Humalog SUB-Q Not Given ACHS [facility] Protocol Magnesium Hydroxide 30 ml 04/11/20 01:26 Milk Of Magnesia PO Q4H PRN Constipation Metoprolol Tartrate 50 mg 04/17/20 13:00 04/18/20 22:15 Metoprolol PO 50 mg BID PRAVIN Administration Simple Syrup 15 ml 04/11/20 14:22 Simple Syrup FEEDTUBE PRN PRN Hypoglycemia Simple Syrup 30 ml 04/11/20 14:22 Simple Syrup FEEDTUBE PRN PRN Hypoglycemia Sodium Bicarbonate 325 mg 04/11/20 14:22 Sodium Bicarbonate FEEDTUBE PRN PRN For Clogged Feeding Tube Sodium Chloride 10 ml 04/11/20 10:00 04/18/20 22:12 Sodium Chloride Flush Syringe 10 Ml IV 10 ml BID PRAVIN Administration Sodium Chloride 10 ml 04/11/20 01:26 Sodium Chloride Flush Syringe 10 Ml IV PRN PRN LINE FLUSH
[2020-04-19] MEDS ORDERED: POTASSIUM CHLORIDE ER 20 MEQ TAB PO ONE (15:54)
[2020-04-19] MEDS ORDERED: POTASSIUM CHLORIDE 20 MEQ PACKET FEEDTUBE ONE (19:55)
[2020-04-19] MEDS: INSULIN GLARGINE 100 UNITS/ML SUB-Q SCH (22:04)
[2020-04-20] MEDS: IPRATROPIUM/ALBUTEROL SULFATE 3 ML AMPUL.NEB IH SCH (07:36)
[2020-04-20 07:44] LABS: Hematocrit 27.9 % (35.5-45.6); Hemoglobin 8.7 gm/dl (11.8-15.2); Mean Corpuscular HGB Conc 31 % (32-34); Mean Corpuscular Volume 77 fl (84-94); Red Blood Count 3.63 M/mm3 (3.65-5.03)
[2020-04-20 07:48] LABS: Platelet Count 92 K/mm3 (140-440); Red Cell Distribution Width 21.1 % (13.2-15.2)
[2020-04-20 07:52] LABS: Calcium 8.4 mg/dL (8.4-10.2)
[2020-04-20 09:05] LABS: Anisocytosis 1+; Basophils % (Manual) 0 % (0.0-1.8); Eosinophils % (Manual) 0 % (0.0-4.3); Hypochromasia 2+; Total Cells Counted 100
[2020-04-20 09:06] LABS: Platelet Estimate Consistent w Auto
[2020-04-20] MEDS: INSULIN LISPRO 100 UNIT/ML VIAL 3 mL SUB-Q SCH ×4 (09:56→22:35)
[2020-04-20] MEDS: APIXABAN 2.5 MG TAB PO SCH ×2 (09:57→22:36)
[2020-04-20] MEDS: METOPROLOL TARTRATE 50 MG TAB PO SCH ×2 (09:57→22:25)
--- NOTE | 2020-04-20 11:37 | Progress Note ---
Assessment and Plan Assessment and plan: ---Acute respiratory failure Current Visit: Yes Status: Acute Plan to address problem: Slightly improving but still needs oxygen to maintain sats. CT chest x-ray ordered Has no pneumonia and no sepsis. Continue oxygen supplementation COVID-19 test negative --Acute on chronic systolic CHF (congestive heart failure) Current Visit: Yes Status: Acute Plan to address problem: Holding Lasix due to KIRT Will monitor daily weight, inputs and outputs. Monitor renal function closely Cardiology on board --KIRT (acute kidney injury) Current Visit: Yes Status: Acute Plan to address problem: Creatinine stable at 3.1 Discontinued Lasix. Vasomotor nephropathy Nephrology following --Colitis Current Visit: Yes Status: Acute Plan to address problem: Resolved GI recommendations appreciated --Arrhythmias-atrial fibrillation versus nonsustained ventricular tachycardia Current Visit: Yes Status: Acute Plan to address problem: Initially started on amiodarone but discontinued due to elevated LFTs Now on metoprolol every 6 and rate is currently controlled. Started on low-dose apixaban 2.5 mg twice daily Cardiology recommendations appreciated --Diabetes mellitus type 2 in nonobese Current Visit: No Status: Acute Plan to address problem: Lantus and sliding scale insulin. --Hyperkalemia and metabolic acidosis Current Visit: Yes Status: Acute Plan to address problem: Resolved --T12 compression fracture Current Visit: No Status: Likely chronic Plan to address problem: CT abdomen showed acute appearing T12 compression fracture 04/14. MRI thoracic without contrast ordered to further evaluate. 04/15. Patient is agitated and unable to get an MRI. 04/16. Awaiting MRI without contrast thoracic. Plan to use sedatives today. Informed RN. If positive for acute fracture, patient will need to be transferred for neurosurgery evaluation. 04/17. MRI thoracic and lumbar showed acute T12 compression fracture. Discussed case with [place] neurosurgery production proofreader who advised no acute intervention is necessary at this time-advised TLSO brace when patient is sitting or ambulatory. He will need follow-up with Dr. Dalton Jack, Dr. Alan Henson, Dr. Tyson Clark [contact number [phone]] after discharge. ---Elevated LFTs Current Visit: Yes Status: Acute Plan to address problem: Improving US abdomen shows no acute pathology ---Infrarenal aortic aneurysm Current Visit: No Status: Acute Plan to address problem: 3.8 cm in diameter Needs to follow-up with vascular surgery at discharge for monitoring -Anemia and thrombocytopenia Current Visit: No Status: Acute Plan to address problem: Monitor platelets ?HIT - Hold heparin for now Peripheral smear reviewed - target cells, tear drops. Hematology consulted -- DVT prophylaxis Current Visit: No Status: Acute Plan to address problem: Hold heparin for now. Started on anticoagulation per cardiology. HIT antibody sent --Full code status Current Visit: No Status: Acute Disposition-home with hospice as per patient son plan stable 04/11. Patient seen and examined at bedside this morning. Patient is on BiPAP. Patient is eager to go home. Otherwise denies any chest pain or palpitations. Patient CT showed possible compression fracture of T12, it is unknown if this is new. We will get MRI without contrast of the thoracic and lumbar to further evaluate. If patient actually has an acute compression fracture, he will need to have a neurosurgery evaluation so will need to be transferred to another facility for this. Otherwise, patient continue to monitor patient's respiratory status while in the IMCU. Patient reportedly failed a swallow evaluation and will need to have an NG tube placement. Tried to call son on number provided in the chart and left a message. Awaiting callback. Labs reviewed-patient has elevated inflammatory [id number], LDH. COVID-19 test has been ordered. Started patient on steroids. Ordered stat BMP, ABG, D-dimer, proBNP, ferritin, LDH. 04/12. COVID -19 test is negative. His breathing has improved so was placed on nasal cannula. Cardiology adjusted meds today. He failed swallow evaluation yesterday. He requests for food. Will reattempt swallow evaluation. Speech therapy consult. 04/13. Overnight, he developed VT and was started on amiodarone. HR better this AM. Cardiology will review medications. Patient seen and examined at bedside this AM. He requests for food. He failed a repeat speech evaluation and will need barium swallow. May need PEG placement if he fails. NG tube in place. Vitals reviewed 04/14. Heart rate improved. Remains n.p.o. with NG tube feeds. Video swallow evaluation shows mild abnormal study. Speech therapist to see patient. Patient has not been able to have an MRI of the back due to agitation. He had a CT during the admission that showed possible compression fracture of T12 but this has not been fully evaluated due to patient's ongoing conditions. Labs reviewed-renal function is worse. Discontinue Lasix. 04/15. Has been started on a diet and is tolerating. He pulled out his NG tube last night. Okay to leave NG tube for now. Plan to get an MRI performed today with sedative to evaluate T12 fracture. Patient denies any back pain. Renal function slightly improved today after Lasix was discontinued. Continue IV hydration. Nephrology recommendations appreciated 04/16. He feels better today. MRI could not be done yesterday. Hopefully patient can have an MRI done today. Creatinine 3.1 today. Patient will need placement but will need to have evaluation of possible T12 fracture prior to discharge 04/17. MRI thoracic and lumbar showed acute T12 compression fracture. Discussed case with [place] neurosurgery production proofreader who advised no acute intervention is necessary at this time-advised TLSO brace when patient is sitting or ambulatory. He will need follow-up with Dr. Dalton Jack, Dr. Alan Henson, Dr. Tyson Clark [contact number [phone]] after discharge. 04/18. Await Nephrology recs for d/c plans 04/19/2020. Patient reportedly with choking/coughing with swallowing. We will change to n.p.o. status right now. Speech reevaluation. Check chest x-ray to rule out aspiration pneumonia. Await nephrology recommendations for discharge. Creatinine slowly improving. CT of abdomen negative for hydronephrosis. BUN increasing. Therefore, we will check Hemoccult of stool to rule out GI bleed. Hemoglobin has been stable. 04/20/2020. Repeat chest x-ray reveals worsening bibasilar opacities. Pulmonary consulted. Doppler of left upper extremity for swelling. PT evaluation recommends subacute rehab History Interval history: Patient with left upper extremity swelling. Hospitalist Physical - Constitutional Vitals: Temp Pulse Resp BP Pulse Ox 97.6 F 76 18 124/72 95 04/20/20 08:56 04/20/20 09:57 04/20/20 08:56 04/20/20 09:57 04/20/20 08:56 General appearance: Present: no acute distress - EENT Eyes: Present: PERRL, EOM intact ENT: hearing intact, clear oral mucosa, dentition normal - Neck Neck: Present: supple, normal ROM - Respiratory Respiratory effort: normal Respiratory: bilateral: CTA - Cardiovascular Rhythm: regular Heart Sounds: Present: S1 & S2. Absent: gallop, rub - Extremities Extremities: no ischemia, No edema, Full ROM - Abdominal General gastrointestinal: soft, non-tender, non-distended, normal bowel sounds - Integumentary Integumentary: Present: clear, warm, dry - Neurologic Neurologic: CNII-XII intact, moves all extremities HEART Score - HEART Score Troponin: Troponin T 0.081 ng/mL (0.00-0.029) H 04/10/20 20:04 Results - Labs CBC & Chem 7: 04/20/20 06:58 04/20/20 06:58 Labs: Laboratory Last Values WBC 8.9 K/mm3 (4.5-11.0) 04/20/20 06:58 RBC 3.63 M/mm3 (3.65-5.03) L 04/20/20 06:58 Hgb 8.7 gm/dl (11.8-15.2) L 04/20/20 06:58 Hct 27.9 % (35.5-45.6) L 04/20/20 06:58 MCV 77 fl (84-94) L 04/20/20 06:58 MCH 24 pg (28-32) L 04/20/20 06:58 MCHC 31 % (32-34) L 04/20/20 06:58 RDW 21.1 % (13.2-15.2) H 04/20/20 06:58 Plt Count 92 K/mm3 (140-440) L 04/20/20 06:58 Lymph % (Auto) 10.9 % (13.4-35.0) L 04/10/20 20:04 [place] % (Auto) 6.0 % (0.0-7.3) 04/10/20 20:04 Eos % (Auto) 0.6 % (0.0-4.3) 04/10/20 20:04 Baso % (Auto) 1.0 % (0.0-1.8) 04/10/20 20:04 Lymph # (Auto) 0.8 K/mm3 (1.2-5.4) L 04/10/20 20:04 [place] # (Auto) 0.4 K/mm3 (0.0-0.8) 04/10/20 20:04 Eos # (Auto) 0.0 K/mm3 (0.0-0.4) 04/10/20 20:04 Baso # (Auto) 0.1 K/mm3 (0.0-0.1) 04/10/20 20:04 Add Manual Diff Complete 04/20/20 06:58 Total Counted 100 04/20/20 06:58 Seg Neutrophils % Experience Design Director 04/20/20 06:58 Seg Neuts % (Manual) 91.0 % (40.0-70.0) H 04/20/20 06:58 Band Neutrophils % 0 % 04/20/20 06:58 Lymphocytes % (Manual) 2.0 % (13.4-35.0) L 04/20/20 06:58 Reactive Lymphs % (Man) 0 % 04/20/20 06:58 Monocytes % (Manual) 7.0 % (0.0-7.3) 04/20/20 06:58 Eosinophils % (Manual) 0 % (0.0-4.3) 04/20/20 06:58 Basophils % (Manual) 0 % (0.0-1.8) 04/20/20 06:58 Metamyelocytes % 0 % 04/20/20 06:58 Myelocytes % 0 % 04/20/20 06:58 Promyelocytes % 0 % 04/20/20 06:58 Blast Cells % 0 % 04/20/20 06:58 Nucleated RBC % Not Reportable 04/20/20 06:58 Seg Neutrophils # 6.1 K/mm3 (1.8-7.7) 04/10/20 20:04 Seg Neutrophils # Man 8.1 K/mm3 (1.8-7.7) H 04/20/20 06:58 Band Neutrophils # 0.0 K/mm3 04/20/20 06:58 Lymphocytes # (Manual) 0.2 K/mm3 (1.2-5.4) L 04/20/20 06:58 Abs React Lymphs (Man) 0.0 K/mm3 04/20/20 06:58 Monocytes # (Manual) 0.6 K/mm3 (0.0-0.8) 04/20/20 06:58 Eosinophils # (Manual) 0.0 K/mm3 (0.0-0.4) 04/20/20 06:58 Basophils # (Manual) 0.0 K/mm3 (0.0-0.1) 04/20/20 06:58 Metamyelocytes # 0.0 K/mm3 04/20/20 06:58 Myelocytes # 0.0 K/mm3 04/20/20 06:58 Promyelocytes # 0.0 K/mm3 04/20/20 06:58 Blast Cells # 0.0 K/mm3 04/20/20 06:58 WBC Morphology Not Reportable 04/20/20 06:58 Hypersegmented Neuts Not Reportable 04/20/20 06:58 Hyposegmented Neuts Not Reportable 04/20/20 06:58 Hypogranular Neuts Not Reportable 04/20/20 06:58 Smudge Cells Not Reportable 04/20/20 06:58 Toxic Granulation Not Reportable 04/20/20 06:58 Toxic Vacuolation Not Reportable 04/20/20 06:58 Dohle Bodies Not Reportable 04/20/20 06:58 Pelger-Huet Anomaly Not Reportable 04/20/20 06:58 Barby Rods Not Reportable 04/20/20 06:58 Platelet Estimate Consistent w auto 04/20/20 06:58 Clumped Platelets Not Reportable 04/20/20 06:58 Plt Clumps, EDTA Not Reportable 04/20/20 06:58 Large Platelets Not Reportable 04/20/20 06:58 Giant Platelets Not Reportable 04/20/20 06:58 Platelet Satelliting Not Reportable 04/20/20 06:58 Plt Morphology Comment Not Reportable 04/20/20 06:58 RBC Morphology Not Reportable 04/20/20 06:58 Dimorphic RBCs Not Reportable 04/20/20 06:58 Polychromasia Not Reportable 04/20/20 06:58 Hypochromasia 2+ 04/20/20 06:58 Poikilocytosis Not Reportable 04/20/20 06:58 Anisocytosis 1+ 04/20/20 06:58 Microcytosis Not Reportable 04/20/20 06:58 Macrocytosis Not Reportable 04/20/20 06:58 Spherocytes Not Reportable 04/20/20 06:58 Pappenheimer Bodies Not Reportable 04/20/20 06:58 Sickle Cells Not Reportable 04/20/20 06:58 Target Cells Not Reportable 04/20/20 06:58 Tear Drop Cells Not Reportable 04/20/20 06:58 Ovalocytes Not Reportable 04/20/20 06:58 Helmet Cells Not Reportable 04/20/20 06:58 [place] Bodies Not Reportable 04/20/20 06:58 Superior Rings Not Reportable 04/20/20 06:58 [place] Cells Not Reportable 04/20/20 06:58 Bite Cells Not Reportable 04/20/20 06:58 Crenated Cell Not Reportable 04/20/20 06:58 Elliptocytes Not Reportable 04/20/20 06:58 Acanthocytes (Spur) Not Reportable 04/20/20 06:58 Rouleaux Not Reportable 04/20/20 06:58 Hemoglobin C Crystals Not Reportable 04/20/20 06:58 Schistocytes Not Reportable 04/20/20 06:58 Malaria parasites Not Reportable 04/20/20 06:58 Willie Bodies Not Reportable 04/20/20 06:58 Hem Pathologist Commnt No 04/20/20 06:58 PT 15.5 Sec. (12.2-14.9) H 04/12/20 06:22 INR 1.21 (0.87-1.13) H 04/12/20 06:22 D-Dimer 2029.09 ng/mlDDU (0-234) H 04/11/20 15:11 Heparin Anti-Xa Level 0.35 U.I./ml (0.3-0.7) 04/13/20 05:06 ABG pH 7.505 pH Units (7.350-7.450) H 04/17/20 10:30 ABG pCO2 25.2 mm Hg 04/17/20 10:30 ABG pO2 157.9 mm Hg (80.0-90.0) H 04/17/20 10:30 ABG HCO3 19.4 mmol/L (20.0-26.0) L 04/17/20 10:30 ABG O2 Saturation 99.1 % (95.0-99.0) H 04/17/20 10:30 ABG O2 Content 12.7 (0.0-44) 04/17/20 10:30 ABG Base Excess -2.8 mmol/L (-2.0-3.0) L 04/17/20 10:30 ABG Hemoglobin 9.1 gm/dl (14.0-18.0) L 04/17/20 10:30 ABG Carboxyhemoglobin 1.6 % (0.0-5.0) 04/17/20 10:30 ABG Methemoglobin 0.4 % (0.0-1.5) 04/17/20 10:30 Oxyhemoglobin 97.0 % (95.0-99.0) 04/17/20 10:30 FiO2 35 % 04/17/20 10:30 Sodium 145 mmol/L (137-145) 04/20/20 06:58 Potassium 3.5 mmol/L (3.6-5.0) L 04/20/20 06:58 Chloride 108.9 mmol/L (98-107) H 04/20/20 06:58 Carbon Dioxide 25 mmol/L (22-30) 04/20/20 06:58 Anion Gap 15 mmol/L 04/20/20 06:58 BUN 96 mg/dL (9-20) H 04/20/20 06:58 Creatinine 2.0 mg/dL (0.8-1.3) H 04/20/20 06:58 Estimated GFR 33 ml/min 04/20/20 06:58 BUN/Creatinine Ratio 48 % 04/20/20 06:58 Glucose 318 mg/dL (75-100) H 04/20/20 06:58 POC Glucose 275 mg/dL (70-105) H 04/20/20 10:57 Lactic Acid 3.00 mmol/L (0.7-2.0) H* 04/12/20 06:22 Calcium 8.4 mg/dL (8.4-10.2) 04/20/20 06:58 Phosphorus 5.60 mg/dL (2.5-4.5) H 04/10/20 22:50 Magnesium 2.40 mg/dL (1.7-2.3) H 04/10/20 22:50 Ferritin 135.1 ng/mL (30.0-300.0) 04/11/20 15:11 Total Bilirubin 1.20 mg/dL (0.1-1.2) 04/19/20 04:43 Direct Bilirubin 0.6 mg/dL (0-0.2) H 04/15/20 04:56 Indirect Bilirubin 0.3 mg/dL 04/15/20 04:56 AST 24 units/L (5-40) 04/19/20 04:43 ALT 126 units/L (7-56) H 04/19/20 04:43 Alkaline Phosphatase 140 units/L (35-129) H 04/19/20 04:43 Lactate Dehydrogenase 664 units/L (91-180) H 04/10/20 20:51 Troponin T 0.081 ng/mL (0.00-0.029) H 04/10/20 20:04 C-Reactive Protein 5.60 mg/dL (0.00-1.30) H 04/10/20 20:51 NT-Pro-B Natriuret Pep > 91222 pg/mL (0-900) H 04/11/20 15:11 Total Protein 5.8 g/dL (6.3-8.2) L 04/19/20 04:43 Albumin 3.2 g/dL (3.9-5) L 04/19/20 04:43 Albumin/Globulin Ratio 1.2 % 04/19/20 04:43 Triglycerides 113 mg/dL (2-149) 04/10/20 20:04 Cholesterol 178 mg/dL (50-199) 04/10/20 20:04 LDL Cholesterol Direct 123 mg/dL (50-130) 04/10/20 20:04 HDL Cholesterol 41 mg/dL (40-59) 04/10/20 20:04 Cholesterol/HDL Ratio 4.34 % 04/10/20 20:04 Procalcitonin 2.47 ng/mL (<0.15) 04/11/20 15:11 TSH 3.640 mlU/mL (0.270-4.200) 04/13/20 10:06 Urine Color Yellow (Yellow) 04/11/20 Unknown Urine Turbidity Clear (Clear) 04/11/20 Unknown Urine pH 5.0 (5.0-7.0) 04/11/20 Unknown Ur Specific [place] 1.009 (1.003-1.030) 04/11/20 Unknown Urine Protein <15 mg/dl mg/dL (Negative) 04/11/20 Unknown Urine Glucose (UA) Neg mg/dL (Negative) 04/11/20 Unknown Urine Ketones Neg mg/dL (Negative) 04/11/20 Unknown Urine Blood Neg (Negative) 04/11/20 Unknown Urine Nitrite Neg (Negative) 04/11/20 Unknown Urine Bilirubin Neg (Negative) 04/11/20 Unknown Urine Urobilinogen < 2.0 mg/dL (<2.0) 04/11/20 Unknown Ur Leukocyte Esterase Neg (Negative) 04/11/20 Unknown Urine WBC (Auto) 1.0 /HPF (0.0-6.0) 04/11/20 Unknown Urine RBC (Auto) 2.0 /HPF (0.0-6.0) 04/11/20 Unknown U Epithel Cells (Auto) < 1.0 /HPF (0-13.0) 04/11/20 Unknown Hyaline Casts 3 /LPF 04/11/20 Unknown Urine Mucus Few /HPF 04/11/20 Unknown Urine Eosinophils None seen (None Seen) 04/11/20 Unknown Urine Creatinine 35.3 mg/dL (0.1-20.0) H 04/11/20 Unknown Urine Sodium 92 mmol/L 04/11/20 Unknown Coronavirus (PCR) Negative (Negative) 04/11/20 Unknown Hepatitis A IgM Ab Non-reactive (NonReactive) 04/12/20 20:23 Hep Bs Antigen Non-reactive (Negative) 04/12/20 20:23 Hep B Core IgM Ab Non-reactive (NonReactive) 04/12/20 20:23 Hepatitis C Antibody Non-reactive (NonReactive) 04/12/20 20:23 Gay/IV: Voiding Method Condom Catheter IV Catheter Type [Right Upper INT / Saline Lock arm] IV Catheter Type [Left Wrist] Peripheral IV IV Catheter Type [Right INT / Saline Lock Forearm] IV Catheter Type [Right Wrist] INT / Saline Lock Active Medications - Current Medications Current Medications: Generic Name Dose Route Start Last Admin Trade Name Freq PRN Reason Stop Dose Admin Acetaminophen 650 mg 04/11/20 01:26 Tylenol PO Q6H PRN Pain MILD(1-3)/Fever >100.5/MANCILLA Lipase/Protease/Amylase 1 each 04/11/20 14:[address] 10,500 Unit FEEDTUBE PRN PRN For Clogged Feeding Tube Apixaban 2.5 mg 04/17/20 12:00 04/20/20 09:57 Eliquis PO 2.5 mg Q12HR PRAVIN Administration Protocol Arformoterol Tartrate 15 mcg 04/20/20 20:00 Brovana Nebu IH Q12HRT PRAVIN Budesonide 0.5 mg 04/20/20 20:00 Pulmicort IH Q12HRT PRAVIN Insulin Glargine 10 units 04/16/20 22:00 04/19/20 22:04 Lantus SUB-Q 10 units QHS PRAVIN Administration Insulin Human Lispro 0 unit 04/16/20 16:30 04/20/20 09:56 Humalog SUB-Q 4 unit ACHS PRAVIN Administration Protocol Magnesium Hydroxide 30 ml 04/11/20 01:26 Milk Of Magnesia PO Q4H PRN Constipation Metoprolol Tartrate 50 mg 04/17/20 13:00 04/20/20 09:57 Metoprolol PO 50 mg BID PRAVIN Administration Simple Syrup 15 ml 04/11/20 14:22 Simple Syrup FEEDTUBE PRN PRN Hypoglycemia Simple Syrup 30 ml 04/11/20 14:22 Simple Syrup FEEDTUBE PRN PRN Hypoglycemia Sodium Bicarbonate 325 mg 04/11/20 14:22 Sodium Bicarbonate FEEDTUBE PRN PRN For Clogged Feeding Tube Sodium Chloride 10 ml 04/11/20 10:00 04/20/20 10:36 Sodium Chloride Flush Syringe 10 Ml IV Not Given BID PRAVIN Sodium Chloride 10 ml 04/11/20 01:26 Sodium Chloride Flush Syringe 10 Ml IV PRN PRN LINE FLUSH Nutrition/Malnutrition Assess - Dietary Evaluation Nutrition/Malnutrition Findings: Nutrition Notes Start: 04/11/20 13:41 Freq: Status: Active Protocol: Document 04/19/20 13:05 LP (Rec: 04/19/20 13:06 LP [id number]) Nutrition Notes Initial or Follow up Brief Note Current Diet NPO Subjective/Other Information Pt NPO noted choking on food yesterday when eating. Nutrition Intervention Follow-Up By: 04/21/20 Additional Comments Follow for diet advancement
--- NOTE | 2020-04-20 11:42 | Progress Note ---
Subjective Date of service: 04/20/20 Interval history: Assessment and Plan - Patient Problems (1) Chronic left ventricular systolic heart failure Current Visit: Yes Status: Acute Plan to address problem: We will continue guideline directed medical therapy for chronic systolic left ventricular dysfunction. (2) Paroxysmal atrial fibrillation Current Visit: Yes Status: Acute Plan to address problem: Amiodarone was discontinued due to elevated liver enzymes, but patient is on beta-blockers, and has no recurrent atrial fibrillation. During this admission, we we have started the patient on low-dose Eliquis for stroke prophylaxis. (3) Coronary artery disease Current Visit: Yes Status: Acute Plan to address problem: Patient has history of coronary artery disease with stents in the proximal circumflex and mid right coronary artery, both patent on repeat cardiac catheterization 2 years ago. He is on medical therapy for small vessel disease, and currently asymptomatic for chest pain. We will continue medical therapy and risk factor modification. Subjective No CV complaints Tele SR HR 70, no afib Objective Vital Signs Temp Pulse Pulse Pulse Resp Resp Resp 04/20/20 09:57 76 04/20/20 08:56 97.6 F 75 18 04/20/20 07:38 93 H 84 16 16 04/20/20 07:37 04/20/20 03:13 97.7 F 68 18 04/19/20 23:33 04/19/20 23:10 04/19/20 23:09 97.9 F 68 18 04/19/20 20:27 82 04/19/20 20:17 04/19/20 20:15 83 83 18 18 04/19/20 19:06 97.4 F L 82 16 04/19/20 15:08 97.6 F 73 20 04/19/20 14:00 73 18 BP Pulse Ox 04/20/20 09:57 124/72 04/20/20 08:56 148/65 95 04/20/20 07:38 04/20/20 07:37 96 04/20/20 03:13 136/61 100 04/19/20 23:33 96 04/19/20 23:10 94 04/19/20 23:09 108/58 04/19/20 20:27 04/19/20 20:17 97 04/19/20 20:15 04/19/20 19:06 119/66 100 04/19/20 15:08 132/65 100 04/19/20 14:00 - Physical Examination General: No Apparent Distress, Cachectic HEENT: Positive: PERRL Neck: Positive: trachea midline Cardiac: Positive: Reg Rate and Rhythm, irregularly irregular Lungs: Positive: Normal Exam Neuro: Positive: Weakness Abdomen: Positive: Soft Skin: Positive: Clear Extremities: Absent: edema - Labs and Meds CBC 04/20/20 Range/Units 06:58 WBC 8.9 (4.5-11.0) K/mm3 RBC 3.63 L (3.65-5.03) M/mm3 Hgb 8.7 L (11.8-15.2) gm/dl Hct 27.9 L (35.5-45.6) % Plt Count 92 L (140-440) K/mm3 Comprehensive Metabolic Panel 04/20/20 Range/Units 06:58 Sodium 145 (137-145) mmol/L Potassium 3.5 L (3.6-5.0) mmol/L Chloride 108.9 H (98-107) mmol/L Carbon Dioxide 25 (22-30) mmol/L BUN 96 H (9-20) mg/dL Creatinine 2.0 H (0.8-1.3) mg/dL Glucose 318 H (75-100) mg/dL Calcium 8.4 (8.4-10.2) mg/dL
--- NOTE | 2020-04-20 13:19 | Progress Note ---
Assessment and Plan 1. Acute kidney injury: Vasomotor KIRT superimposed on CKD. CT abdomen negative for hydro. Monitor renal function. Creatinine level slowly improving. Renal prognosis is guarded. Avoid nephrotoxic agents. Meds dosage based on GFR. 2. FEN: Hypokalemia, replete K, monitor. Anion-gap metabolic acidosis, 2/2 KIRT / CKD, monitor. Sod bicarbonate as needed. Monitor lytes and volume status. 3. Acute hypoxic respiratory failure: Was on BIPAP. Possibly secondary to the CHF and underlying pneumonia. COVID-19 test negative. 4. Chronic CHF: Monitor daily weight, intake and outputs. Followed by Cards. 5. Colitis: Monitor. Seen by GI. 6. Anemia, POA: Monitor. 7. Elevated Transaminases: Monitor. 8. DM type 2. 9. HTN: Monitor BP. Subjective: Patient was seen and examined at the bedside. Examination: General appearance: well-developed, appears stated age, on mittens HEENT: ATNC, pupils equal Neck: trachea midline Respiratory: ctab Heart: regular, S1S2, no murmur Gastrointestinal: soft, normoactive bowel sounds, not tender Integumentary: no rash, warm and dry Neurologic: alert, moving extremities, answers few questions, confused Ext: no edema Subjective Date of service: 04/20/20 Objective - Vital Signs Vital signs: Vital Signs - 12hr 04/20/20 04/20/20 04/20/20 03:13 07:37 07:38 Temperature 97.7 F Pulse Rate 68 Pulse Rate [ 93 H Anterior Bilateral Throughout] Pulse Rate [ 84 Posterior Bilateral Throughout] Respiratory 18 Rate Respiratory 16 Rate [Anterior Bilateral Throughout] Respiratory 16 Rate [Posterior Bilateral Throughout] Blood Pressure 136/61 O2 Sat by Pulse 100 96 Oximetry 04/20/20 04/20/20 04/20/20 08:56 09:54 09:57 Temperature 97.6 F Pulse Rate 75 76 Pulse Rate [ Anterior Bilateral Throughout] Pulse Rate [ Posterior Bilateral Throughout] Respiratory 18 Rate Respiratory Rate [Anterior Bilateral Throughout] Respiratory Rate [Posterior Bilateral Throughout] Blood Pressure 148/65 124/22 124/72 O2 Sat by Pulse 95 Oximetry 04/20/20 11:55 Temperature 98.1 F Pulse Rate 60 Pulse Rate [ Anterior Bilateral Throughout] Pulse Rate [ Posterior Bilateral Throughout] Respiratory 18 Rate Respiratory Rate [Anterior Bilateral Throughout] Respiratory Rate [Posterior Bilateral Throughout] Blood Pressure 124/57 O2 Sat by Pulse 94 Oximetry - Lab 04/20/20 06:58 04/20/20 06:58 Most recent lab results ABG pH 7.505 pH Units (7.350-7.450) H 04/17/20 10:30 ABG pCO2 25.2 mm Hg 04/17/20 10:30 ABG pO2 157.9 mm Hg (80.0-90.0) H 04/17/20 10:30 ABG HCO3 19.4 mmol/L (20.0-26.0) L 04/17/20 10:30 ABG O2 Saturation 99.1 % (95.0-99.0) H 04/17/20 10:30 Calcium 8.4 mg/dL (8.4-10.2) 04/20/20 06:58 Phosphorus 5.60 mg/dL (2.5-4.5) H 04/10/20 22:50 Magnesium 2.40 mg/dL (1.7-2.3) H 04/10/20 22:50 Urine Creatinine 35.3 mg/dL (0.1-20.0) H 04/11/20 Unknown Urine Sodium 92 mmol/L 04/11/20 Unknown Medications & Allergies - Medications Allergies/Adverse Reactions: Allergies Sulfa (Sulfonamide Antibiotics) Allergy (Verified 07/30/18 17:44) Rash Home Medications: Home Medications Medication Instructions Recorded Confirmed Last Taken Type Gabapentin 300 mg PO BID 09/19/16 01/29/20 09/18/16 History 300 mg Metformin HCl [metFORMIN ER 500 mg PO BIDWM 03/28/17 01/29/20 Unknown History Gastric] AtorvaSTATin 10 mg PO QHS #30 tablet 12/21/17 01/29/20 Unknown Rx Ranolazine ER [Ranexa ER] 500 mg PO BID #60 tablet 12/21/17 01/29/20 Unknown Rx Aspirin 325 mg PO QDAY #30 tablet 01/12/18 01/29/20 Unknown Rx Diphenoxylate/Atropine [Lomotil] 1 tab PO Q8H PRN 01/15/18 01/29/20 Unknown History Insulin Lispro [HumaLOG VIAL] See Protocol SQ ACHS 01/15/18 01/29/20 Unknown History Promethazine [Phenergan] 25 mg PO Q4H PRN 01/15/18 01/29/20 Unknown History Albuterol Mdi (or & Nicu Only) 2 puff IH Q4HR PRN #1 inhalation 12/21/18 01/29/20 Unknown Rx [ProAir HFA Inhaler] Furosemide [Lasix TAB] 20 mg PO QDAY #30 tablet 02/03/20 Unknown Rx Metoprolol Xl [Metoprolol 25 mg PO DAILY #60 tablet 02/03/20 Unknown Rx SUCCINATE ER TAB] levETIRAcetam [Keppra TAB] 500 mg PO BID #120 tablet 02/03/20 Unknown Rx levoFLOXacin [Levaquin TAB] 500 mg PO QDAY #5 tablet 02/03/20 Unknown Rx Active Medications: Generic Name Dose Route Start Last Admin Trade Name Freq PRN Reason Stop Dose Admin Acetaminophen 650 mg 04/11/20 01:26 Tylenol PO Q6H PRN Pain MILD(1-3)/Fever >100.5/MANCILLA Lipase/Protease/Amylase 1 each 04/11/20 14:22 Pancreazaddison Saenz 10,500 Unit FEEDTUBE PRN PRN For Clogged Feeding Tube Apixaban 2.5 mg 04/17/20 12:00 04/20/20 09:57 Eliquis PO 2.5 mg Q12HR PRAVIN Administration Protocol Arformoterol Tartrate 15 mcg 04/20/20 20:00 Brovana Nebu IH Q12HRT PRAVIN Budesonide 0.5 mg 04/20/20 20:00 Pulmicort IH Q12HRT PRAVIN Insulin Glargine 10 units 04/16/20 22:00 04/19/20 22:04 Lantus SUB-Q 10 units QHS PRAVIN Administration Insulin Human Lispro 0 unit 04/16/20 16:30 04/20/20 13:14 Humalog SUB-Q 4 unit ACHS PRAVIN Administration Protocol Magnesium Hydroxide 30 ml 04/11/20 01:26 Milk Of Magnesia PO Q4H PRN Constipation Metoprolol Tartrate 50 mg 04/17/20 13:00 04/20/20 09:57 Metoprolol PO 50 mg BID PRAVIN Administration Simple Syrup 15 ml 04/11/20 14:22 Simple Syrup FEEDTUBE PRN PRN Hypoglycemia Simple Syrup 30 ml 04/11/20 14:22 Simple Syrup FEEDTUBE PRN PRN Hypoglycemia Sodium Bicarbonate 325 mg 04/11/20 14:22 Sodium Bicarbonate FEEDTUBE PRN PRN For Clogged Feeding Tube Sodium Chloride 10 ml 04/11/20 10:00 04/20/20 10:36 Sodium Chloride Flush Syringe 10 Ml IV Not Given BID PRAVIN Sodium Chloride 10 ml 04/11/20 01:26 Sodium Chloride Flush Syringe 10 Ml IV PRN PRN LINE FLUSH
[2020-04-20] MEDS: POTASSIUM CHLORIDE ER 20 MEQ TAB PO SCH ×2 (15:21→17:18)
[2020-04-20] MEDS: BUDESONIDE 0.5 MG/2 ML NEBU IH SCH (20:45)
[2020-04-20] MEDS: ARFORMOTEROL 15 MCG/2 ML NEBU IH SCH (20:46)
[2020-04-20] MEDS: INSULIN GLARGINE 100 UNITS/ML SUB-Q SCH (22:36)
[2020-04-21 05:09] LABS: Basophils % (Auto) 0.4 % (0.0-1.8); Eosinophils # (Auto) 0.1 K/mm3 (0.0-0.4); Eosinophils % (Auto) 1.4 % (0.0-4.3); Hematocrit 29.5 % (35.5-45.6); Hemoglobin 9.1 gm/dl (11.8-15.2); Lymphocytes # (Auto) 0.3 K/mm3 (1.2-5.4); Lymphocytes % (Auto) 3.1 % (13.4-35.0); Mean Corpuscular HGB Conc 31 % (32-34); Mean Corpuscular Volume 78 fl (84-94); Monocytes # (Auto) 0.7 K/mm3 (0.0-0.8); Monocytes % (Auto) 6.7 % (0.0-7.3); Red Blood Count 3.78 M/mm3 (3.65-5.03)
[2020-04-21 05:15] LABS: Platelet Count 98 K/mm3 (140-440); Red Cell Distribution Width 21.2 % (13.2-15.2)
[2020-04-21 05:28] LABS: Calcium 8.7 mg/dL (8.4-10.2)
[2020-04-21] MEDS: ARFORMOTEROL 15 MCG/2 ML NEBU IH SCH ×2 (07:06→22:03)
[2020-04-21] MEDS: BUDESONIDE 0.5 MG/2 ML NEBU IH SCH ×2 (07:07→22:03)
--- NOTE | 2020-04-21 09:32 | Consultation ---
History of Present Illness Consult date: 04/21/20 Requesting physician: DENISE WEST Reason for consult: abnormal CXR/CT History of present illness: 75 y/o male with CHF, Afib and renal disease admitted 10 days ago to [facility]. Patient has known COPD, and is currently smoking. He briefly required bipap therapy but has since been weaned to nasal cannula. He has had episodes with chocking and there was concern for aspiration so CXR was checked and compared to a CXR that he had 2 days prior. The radiologist read the film as worsening bibasilar opacities with improving left sided linear atelectasis. Patient has not had fever, nor large change in white count. Pulmonary was consulted secondary to the bibasilar opacities. Past History Past Medical History: arthritis, CAD (H/O ND), COPD, diabetes, heart failure, hypertension, hyperlipidemia, stroke (X2), other (Crohn's disease,) Past Surgical History: PTCA Social history: smoking (Current daily smoker), alcohol abuse Family history: no significant family history Medications and Allergies Allergies Allergy/AdvReac Type Severity Reaction Status Date / Time Sulfa (Sulfonamide Allergy Rash Verified 07/30/18 17:44 Antibiotics) Home Medications Medication Instructions Recorded Confirmed Last Taken Type Gabapentin 300 mg PO BID 09/19/16 01/29/20 09/18/16 History 300 mg Metformin HCl [metFORMIN ER 500 mg PO BIDWM 03/28/17 01/29/20 Unknown History Gastric] AtorvaSTATin 10 mg PO QHS #30 tablet 12/21/17 01/29/20 Unknown Rx Ranolazine ER [Ranexa ER] 500 mg PO BID #60 tablet 12/21/17 01/29/20 Unknown Rx Aspirin 325 mg PO QDAY #30 tablet 01/12/18 01/29/20 Unknown Rx Diphenoxylate/Atropine [Lomotil] 1 tab PO Q8H PRN 01/15/18 01/29/20 Unknown History Insulin Lispro [HumaLOG VIAL] See Protocol SQ ACHS 01/15/18 01/29/20 Unknown History Promethazine [Phenergan] 25 mg PO Q4H PRN 01/15/18 01/29/20 Unknown History Albuterol Mdi (or & Nicu Only) 2 puff IH Q4HR PRN #1 inhalation 12/21/18 01/29/20 Unknown Rx [ProAir HFA Inhaler] Furosemide [Lasix TAB] 20 mg PO QDAY #30 tablet 02/03/20 Unknown Rx Metoprolol Xl [Metoprolol 25 mg PO DAILY #60 tablet 02/03/20 Unknown Rx SUCCINATE ER TAB] levETIRAcetam [Keppra TAB] 500 mg PO BID #120 tablet 02/03/20 Unknown Rx levoFLOXacin [Levaquin TAB] 500 mg PO QDAY #5 tablet 02/03/20 Unknown Rx Active Meds: Active Medications Acetaminophen (Tylenol) 650 mg PO Q6H PRN PRN Reason: Pain MILD(1-3)/Fever >100.5/MANCILLA Lipase/Protease/Amylase (Gabrielle Saenz 10,500 Unit) 1 each FEEDTUBE PRN PRN PRN Reason: For Clogged Feeding Tube Apixaban (Eliquis) 2.5 mg PO Q12HR [facility]; Protocol Last Admin: 04/20/20 22:36 Dose: 2.5 mg Documented by: Arformoterol Tartrate (Brovana Nebu) 15 mcg IH Q12HRT [facility] Last Admin: 04/21/20 07:06 Dose: 15 mcg Documented by: Budesonide (Pulmicort) 0.5 mg IH Q12HRT [facility] Last Admin: 04/21/20 07:07 Dose: 0.5 mg Documented by: Insulin Glargine (Lantus) 10 units SUB-Q QHS [facility] Last Admin: 04/20/20 22:36 Dose: Not Given Documented by: Insulin Human Lispro (Humalog) 0 unit SUB-Q [facility]; Protocol Last Admin: 04/20/20 22:35 Dose: Not Given Documented by: Magnesium Hydroxide (Milk Of Magnesia) 30 ml PO Q4H PRN PRN Reason: Constipation Metoprolol Tartrate (Metoprolol) 50 mg PO BID [facility] Last Admin: 04/20/20 22:25 Dose: 50 mg Documented by: Simple Syrup (Simple Syrup) 15 ml FEEDTUBE PRN PRN PRN Reason: Hypoglycemia Simple Syrup (Simple Syrup) 30 ml FEEDTUBE PRN PRN PRN Reason: Hypoglycemia Sodium Bicarbonate (Sodium Bicarbonate) 325 mg FEEDTUBE PRN PRN PRN Reason: For Clogged Feeding Tube Sodium Chloride (Sodium Chloride Flush Syringe 10 Ml) 10 ml IV BID [facility]IN Last Admin: 04/20/20 22:36 Dose: 10 ml Documented by: Sodium Chloride (Sodium Chloride Flush Syringe 10 Ml) 10 ml IV PRN PRN PRN Reason: LINE FLUSH Physical Examination Vital signs: Vital Signs Pulse Resp BP Pulse Ox 116 H 45 H 138/84 98 04/10/20 19:45 04/10/20 19:45 04/10/20 19:45 04/10/20 19:45 General appearance: no acute distress, alert Eyes: non-icteric Neck: supple Ascultation: Bilateral: diminished breath sounds Percussion: Bilateral: not dull Cardiovascular: irregular rhythm Results - Laboratory Findings CBC and BMP: 04/21/20 04:48 04/21/20 04:48 ABG ABG pH 7.505 pH Units (7.350-7.450) H 04/17/20 10:30 ABG pCO2 25.2 mm Hg 04/17/20 10:30 ABG pO2 157.9 mm Hg (80.0-90.0) H 04/17/20 10:30 ABG O2 Saturation 99.1 % (95.0-99.0) H 04/17/20 10:30 PT/INR, D-dimer PT 15.5 Sec. (12.2-14.9) H 04/12/20 06:22 INR 1.21 (0.87-1.13) H 04/12/20 06:22 D-Dimer 2029.09 ng/mlDDU (0-234) H 04/11/20 15:11 Abnormal lab findings: Abnormal Labs 04/10/20 04/10/20 04/10/20 20:04 20:04 20:04 WBC RBC Hgb 9.3 L Hct 29.9 L MCV 80 L MCH 25 L MCHC 31 L RDW 21.7 H Plt Count Lymph % (Auto) 10.9 L Lymph # (Auto) 0.8 L Seg Neutrophils % 81.5 H Seg Neuts % (Manual) Lymphocytes % (Manual) Nucleated RBC % Seg Neutrophils # Seg Neutrophils # Man Lymphocytes # (Manual) PT INR D-Dimer Heparin Anti-Xa Level ABG pH ABG pO2 ABG HCO3 ABG O2 Saturation ABG Base Excess ABG Hemoglobin Sodium 133 L Potassium 5.9 H Chloride Carbon Dioxide 12 L BUN 25 H Creatinine 1.7 H Glucose 119 H POC Glucose Lactic Acid 8.80 H* Calcium Phosphorus Magnesium Total Bilirubin 1.40 H Direct Bilirubin AST 144 H ALT 83 H Alkaline Phosphatase 212 H Lactate Dehydrogenase Troponin T 0.081 H C-Reactive Protein NT-Pro-B Natriuret Pep Total Protein Albumin 3.5 L Urine Creatinine 04/10/20 04/10/20 04/10/20 20:35 20:51 20:51 WBC RBC Hgb Hct MCV MCH MCHC RDW Plt Count Lymph % (Auto) Lymph # (Auto) Seg Neutrophils % Seg Neuts % (Manual) Lymphocytes % (Manual) Nucleated RBC % Seg Neutrophils # Seg Neutrophils # Man Lymphocytes # (Manual) PT INR D-Dimer 1881.28 H Heparin Anti-Xa Level ABG pH 7.320 L ABG pO2 240.7 H ABG HCO3 11.8 L ABG O2 Saturation 99.4 H ABG Base Excess -12.8 L ABG Hemoglobin 9.0 L Sodium Potassium Chloride Carbon Dioxide BUN Creatinine Glucose 116 H POC Glucose Lactic Acid Calcium Phosphorus Magnesium Total Bilirubin Direct Bilirubin AST ALT Alkaline Phosphatase Lactate Dehydrogenase 664 H Troponin T C-Reactive Protein 5.60 H NT-Pro-B Natriuret Pep Total Protein Albumin Urine Creatinine 04/10/20 04/10/20 04/11/20 20:51 22:50 00:36 WBC RBC Hgb Hct MCV MCH MCHC RDW Plt Count Lymph % (Auto) Lymph # (Auto) Seg Neutrophils % Seg Neuts % (Manual) Lymphocytes % (Manual) Nucleated RBC % Seg Neutrophils # Seg Neutrophils # Man Lymphocytes # (Manual) PT INR D-Dimer Heparin Anti-Xa Level ABG pH ABG pO2 ABG HCO3 ABG O2 Saturation ABG Base Excess ABG Hemoglobin Sodium 132 L Potassium 6.0 H Chloride Carbon Dioxide 17 L BUN 26 H Creatinine 1.7 H Glucose 115 H POC Glucose 237 H Lactic Acid Calcium Phosphorus 5.60 H Magnesium 2.40 H Total Bilirubin 1.40 H Direct Bilirubin AST 286 H ALT 161 H Alkaline Phosphatase 207 H Lactate Dehydrogenase Troponin T C-Reactive Protein NT-Pro-B Natriuret Pep Total Protein Albumin 3.6 L Urine Creatinine 04/11/20 04/11/20 04/11/20 03:10 05:32 07:37 WBC RBC Hgb Hct MCV MCH MCHC RDW Plt Count Lymph % (Auto) Lymph # (Auto) Seg Neutrophils % Seg Neuts % (Manual) Lymphocytes % (Manual) Nucleated RBC % Seg Neutrophils # Seg Neutrophils # Man Lymphocytes # (Manual) PT INR D-Dimer Heparin Anti-Xa Level ABG pH ABG pO2 ABG HCO3 ABG O2 Saturation ABG Base Excess ABG Hemoglobin Sodium Potassium 6.2 H* Chloride Carbon Dioxide BUN Creatinine Glucose POC Glucose 181 H 182 H Lactic Acid Calcium Phosphorus Magnesium Total Bilirubin Direct Bilirubin AST ALT Alkaline Phosphatase Lactate Dehydrogenase Troponin T C-Reactive Protein NT-Pro-B Natriuret Pep Total Protein Albumin Urine Creatinine 04/11/20 04/11/20 04/11/20 07:37 07:45 12:04 WBC RBC Hgb Hct MCV MCH MCHC RDW Plt Count Lymph % (Auto) Lymph # (Auto) Seg Neutrophils % Seg Neuts % (Manual) Lymphocytes % (Manual) Nucleated RBC % Seg Neutrophils # Seg Neutrophils # Man Lymphocytes # (Manual) PT INR D-Dimer Heparin Anti-Xa Level ABG pH ABG pO2 ABG HCO3 ABG O2 Saturation ABG Base Excess ABG Hemoglobin Sodium 133 L Potassium 6.1 H* Chloride Carbon Dioxide 10 L D BUN 26 H Creatinine 1.7 H Glucose POC Glucose 212 H 196 H Lactic Acid Calcium Phosphorus Magnesium Total Bilirubin Direct Bilirubin AST ALT Alkaline Phosphatase Lactate Dehydrogenase Troponin T C-Reactive Protein NT-Pro-B Natriuret Pep Total Protein Albumin Urine Creatinine 04/11/20 04/11/20 04/11/20 15:11 15:11 15:11 WBC RBC Hgb Hct MCV MCH MCHC RDW Plt Count Lymph % (Auto) Lymph # (Auto) Seg Neutrophils % Seg Neuts % (Manual) Lymphocytes % (Manual) Nucleated RBC % Seg Neutrophils # Seg Neutrophils # Man Lymphocytes # (Manual) PT INR D-Dimer 9.09 H Heparin Anti-Xa Level ABG pH ABG pO2 ABG HCO3 ABG O2 Saturation ABG Base Excess ABG Hemoglobin Sodium Potassium Chloride Carbon Dioxide BUN Creatinine Glucose POC Glucose Lactic Acid 2.30 H* Calcium Phosphorus Magnesium Total Bilirubin Direct Bilirubin AST ALT Alkaline Phosphatase Lactate Dehydrogenase Troponin T C-Reactive Protein NT-Pro-B Natriuret Pep > 71007 H Total Protein Albumin Urine Creatinine 04/11/20 04/11/20 04/11/20 15:11 16:07 16:25 WBC RBC Hgb Hct MCV MCH MCHC RDW Plt Count Lymph % (Auto) Lymph # (Auto) Seg Neutrophils % Seg Neuts % (Manual) Lymphocytes % (Manual) Nucleated RBC % Seg Neutrophils # Seg Neutrophils # Man Lymphocytes # (Manual) PT INR D-Dimer Heparin Anti-Xa Level ABG pH ABG pO2 110.8 H ABG HCO3 ABG O2 Saturation ABG Base Excess -3.4 L ABG Hemoglobin 8.6 L Sodium 131 L Potassium 5.3 H Chloride Carbon Dioxide BUN 33 H Creatinine 1.9 H Glucose 268 H POC Glucose 227 H Lactic Acid Calcium 8.3 L Phosphorus Magnesium Total Bilirubin Direct Bilirubin AST 575 H ALT 414 H Alkaline Phosphatase 153 H Lactate Dehydrogenase Troponin T C-Reactive Protein NT-Pro-B Natriuret Pep Total Protein 5.6 L Albumin 2.9 L Urine Creatinine 04/11/20 04/12/20 04/12/20 Unknown 05:57 06:22 WBC RBC Hgb Hct MCV MCH MCHC RDW Plt Count Lymph % (Auto) Lymph # (Auto) Seg Neutrophils % Seg Neuts % (Manual) Lymphocytes % (Manual) Nucleated RBC % Seg Neutrophils # Seg Neutrophils # Man Lymphocytes # (Manual) PT INR D-Dimer Heparin Anti-Xa Level ABG pH ABG pO2 ABG HCO3 ABG O2 Saturation ABG Base Excess ABG Hemoglobin Sodium Potassium Chloride Carbon Dioxide BUN Creatinine Glucose POC Glucose 139 H Lactic Acid 3.00 H* Calcium Phosphorus Magnesium Total Bilirubin Direct Bilirubin AST ALT Alkaline Phosphatase Lactate Dehydrogenase Troponin T C-Reactive Protein NT-Pro-B Natriuret Pep Total Protein Albumin Urine Creatinine 35.3 H 04/12/20 04/12/20 04/12/20 06:22 06:22 06:22 WBC 11.5 H RBC 3.61 L Hgb 9.1 L Hct 27.8 L MCV 77 L MCH 25 L MCHC RDW 20.8 H Plt Count Lymph % (Auto) Lymph # (Auto) Seg Neutrophils % Seg Neuts % (Manual) 100.0 H Lymphocytes % (Manual) 0 L Nucleated RBC % Seg Neutrophils # Seg Neutrophils # Man 11.5 H Lymphocytes # (Manual) 0.0 L PT 15.5 H INR 1.21 H D-Dimer Heparin Anti-Xa Level ABG pH ABG pO2 ABG HCO3 ABG O2 Saturation ABG Base Excess ABG Hemoglobin Sodium 132 L Potassium 5.3 H Chloride 96.6 L Carbon Dioxide 20 L BUN 43 H Creatinine 2.0 H Glucose 152 H POC Glucose Lactic Acid Calcium Phosphorus Magnesium Total Bilirubin Direct Bilirubin AST ALT Alkaline Phosphatase Lactate Dehydrogenase Troponin T C-Reactive Protein NT-Pro-B Natriuret Pep Total Protein Albumin Urine Creatinine 04/12/20 04/12/20 04/12/20 13:23 18:12 20:23 WBC RBC Hgb Hct MCV MCH MCHC RDW Plt Count Lymph % (Auto) Lymph # (Auto) Seg Neutrophils % Seg Neuts % (Manual) Lymphocytes % (Manual) Nucleated RBC % Seg Neutrophils # Seg Neutrophils # Man Lymphocytes # (Manual) PT INR D-Dimer Heparin Anti-Xa Level ABG pH ABG pO2 ABG HCO3 ABG O2 Saturation ABG Base Excess ABG Hemoglobin Sodium 135 L Potassium 5.4 H Chloride Carbon Dioxide BUN 53 H Creatinine 2.3 H Glucose 190 H POC Glucose 224 H 170 H Lactic Acid Calcium Phosphorus Magnesium Total Bilirubin Direct Bilirubin AST ALT Alkaline Phosphatase Lactate Dehydrogenase Troponin T C-Reactive Protein NT-Pro-B Natriuret Pep Total Protein Albumin Urine Creatinine 04/12/20 04/12/20 04/13/20 20:23 23:59 05:06 WBC RBC Hgb 8.4 L Hct 26.6 L MCV MCH MCHC RDW Plt Count Lymph % (Auto) Lymph # (Auto) Seg Neutrophils % Seg Neuts % (Manual) Lymphocytes % (Manual) Nucleated RBC % Seg Neutrophils # Seg Neutrophils # Man Lymphocytes # (Manual) PT INR D-Dimer Heparin Anti-Xa Level < 0.10 L ABG pH ABG pO2 ABG HCO3 ABG O2 Saturation ABG Base Excess ABG Hemoglobin Sodium Potassium Chloride Carbon Dioxide BUN Creatinine Glucose POC Glucose 189 H Lactic Acid Calcium Phosphorus Magnesium Total Bilirubin Direct Bilirubin AST ALT Alkaline Phosphatase Lactate Dehydrogenase Troponin T C-Reactive Protein NT-Pro-B Natriuret Pep Total Protein Albumin Urine Creatinine 04/13/20 04/13/20 04/13/20 05:06 05:06 05:47 WBC RBC Hgb Hct MCV MCH MCHC RDW Plt Count Lymph % (Auto) Lymph # (Auto) Seg Neutrophils % Seg Neuts % (Manual) Lymphocytes % (Manual) Nucleated RBC % Seg Neutrophils # Seg Neutrophils # Man Lymphocytes # (Manual) PT INR D-Dimer Heparin Anti-Xa Level ABG pH ABG pO2 ABG HCO3 ABG O2 Saturation ABG Base Excess ABG Hemoglobin Sodium 135 L Potassium Chloride Carbon Dioxide 17 L BUN 59 H Creatinine 2.2 H Glucose 256 H POC Glucose 240 H Lactic Acid Calcium Phosphorus Magnesium Total Bilirubin Direct Bilirubin 0.6 H AST 160 H ALT 333 H Alkaline Phosphatase 153 H Lactate Dehydrogenase Troponin T C-Reactive Protein NT-Pro-B Natriuret Pep Total Protein 6.0 L Albumin 3.0 L Urine Creatinine 04/13/20 04/13/20 04/14/20 11:36 21:08 00:32 WBC RBC Hgb Hct MCV MCH MCHC RDW Plt Count Lymph % (Auto) Lymph # (Auto) Seg Neutrophils % Seg Neuts % (Manual) Lymphocytes % (Manual) Nucleated RBC % Seg Neutrophils # Seg Neutrophils # Man Lymphocytes # (Manual) PT INR D-Dimer Heparin Anti-Xa Level ABG pH ABG pO2 ABG HCO3 ABG O2 Saturation ABG Base Excess ABG Hemoglobin Sodium Potassium Chloride Carbon Dioxide BUN Creatinine Glucose POC Glucose 167 H 199 H 233 H Lactic Acid Calcium Phosphorus Magnesium Total Bilirubin Direct Bilirubin AST ALT Alkaline Phosphatase Lactate Dehydrogenase Troponin T C-Reactive Protein NT-Pro-B Natriuret Pep Total Protein Albumin Urine Creatinine 04/14/20 04/14/20 04/14/20 06:34 06:41 16:50 WBC RBC Hgb Hct MCV MCH MCHC RDW Plt Count Lymph % (Auto) Lymph # (Auto) Seg Neutrophils % Seg Neuts % (Manual) Lymphocytes % (Manual) Nucleated RBC % Seg Neutrophils # Seg Neutrophils # Man Lymphocytes # (Manual) PT INR D-Dimer Heparin Anti-Xa Level ABG pH ABG pO2 ABG HCO3 ABG O2 Saturation ABG Base Excess ABG Hemoglobin Sodium 129 L Potassium 5.7 H D Chloride 96.2 L Carbon Dioxide 14 L BUN 81 H Creatinine 2.8 H Glucose 244 H POC Glucose 195 H 293 H Lactic Acid Calcium Phosphorus Magnesium Total Bilirubin Direct Bilirubin AST 181 H ALT 386 H Alkaline Phosphatase 160 H Lactate Dehydrogenase Troponin T C-Reactive Protein NT-Pro-B Natriuret Pep Total Protein 6.0 L Albumin 2.9 L Urine Creatinine 04/14/20 04/15/20 04/15/20 23:55 04:56 04:56 WBC RBC Hgb 8.7 L Hct 27.2 L MCV MCH MCHC RDW Plt Count Lymph % (Auto) Lymph # (Auto) Seg Neutrophils % Seg Neuts % (Manual) Lymphocytes % (Manual) Nucleated RBC % Seg Neutrophils # Seg Neutrophils # Man Lymphocytes # (Manual) PT INR D-Dimer Heparin Anti-Xa Level ABG pH ABG pO2 ABG HCO3 ABG O2 Saturation ABG Base Excess ABG Hemoglobin Sodium Potassium Chloride Carbon Dioxide 19 L BUN 93 H 97 H Creatinine 3.1 H 2.9 H Glucose 226 H 226 H POC Glucose Lactic Acid Calcium 8.3 L 8.1 L Phosphorus Magnesium Total Bilirubin Direct Bilirubin AST ALT Alkaline Phosphatase Lactate Dehydrogenase Troponin T C-Reactive Protein NT-Pro-B Natriuret Pep Total Protein Albumin Urine Creatinine 04/15/20 04/15/20 04/15/20 04:56 05:25 11:03 WBC RBC Hgb Hct MCV MCH MCHC RDW Plt Count Lymph % (Auto) Lymph # (Auto) Seg Neutrophils % Seg Neuts % (Manual) Lymphocytes % (Manual) Nucleated RBC % Seg Neutrophils # Seg Neutrophils # Man Lymphocytes # (Manual) PT INR D-Dimer Heparin Anti-Xa Level ABG pH ABG pO2 ABG HCO3 ABG O2 Saturation ABG Base Excess ABG Hemoglobin Sodium Potassium Chloride Carbon Dioxide BUN Creatinine Glucose POC Glucose 209 H 127 H Lactic Acid Calcium Phosphorus Magnesium Total Bilirubin Direct Bilirubin 0.6 H AST 85 H ALT 330 H Alkaline Phosphatase 201 H Lactate Dehydrogenase Troponin T C-Reactive Protein NT-Pro-B Natriuret Pep Total Protein 6.1 L Albumin 3.5 L Urine Creatinine 04/15/20 04/16/20 04/16/20 15:16 00:39 06:14 WBC RBC Hgb Hct MCV MCH MCHC RDW Plt Count Lymph % (Auto) Lymph # (Auto) Seg Neutrophils % Seg Neuts % (Manual) Lymphocytes % (Manual) Nucleated RBC % Seg Neutrophils # Seg Neutrophils # Man Lymphocytes # (Manual) PT INR D-Dimer Heparin Anti-Xa Level ABG pH ABG pO2 ABG HCO3 ABG O2 Saturation ABG Base Excess ABG Hemoglobin Sodium Potassium Chloride Carbon Dioxide BUN Creatinine Glucose POC Glucose 184 H 294 H 230 H Lactic Acid Calcium Phosphorus Magnesium Total Bilirubin Direct Bilirubin AST ALT Alkaline Phosphatase Lactate Dehydrogenase Troponin T C-Reactive Protein NT-Pro-B Natriuret Pep Total Protein Albumin Urine Creatinine 04/16/20 04/16/20 04/16/20 07:12 07:12 11:09 WBC RBC Hgb 9.1 L Hct 28.8 L MCV 78 L MCH 25 L MCHC RDW 21.4 H Plt Count 138 L Lymph % (Auto) Lymph # (Auto) Seg Neutrophils % Seg Neuts % (Manual) 94.0 H Lymphocytes % (Manual) 4.0 L Nucleated RBC % 1.0 H Seg Neutrophils # Seg Neutrophils # Man Lymphocytes # (Manual) 0.3 L PT INR D-Dimer Heparin Anti-Xa Level ABG pH ABG pO2 ABG HCO3 ABG O2 Saturation ABG Base Excess ABG Hemoglobin Sodium Potassium Chloride Carbon Dioxide BUN 106 H Creatinine 3.1 H Glucose 219 H POC Glucose 297 H Lactic Acid Calcium 7.9 L Phosphorus Magnesium Total Bilirubin Direct Bilirubin AST 58 H ALT 247 H Alkaline Phosphatase 150 H Lactate Dehydrogenase Troponin T C-Reactive Protein NT-Pro-B Natriuret Pep Total Protein 6.1 L Albumin 3.4 L Urine Creatinine 04/16/20 04/16/20 04/17/20 16:42 22:39 04:31 WBC RBC Hgb 9.1 L Hct 28.8 L MCV MCH MCHC RDW Plt Count 132 L Lymph % (Auto) Lymph # (Auto) Seg Neutrophils % Seg Neuts % (Manual) Lymphocytes % (Manual) Nucleated RBC % Seg Neutrophils # Seg Neutrophils # Man Lymphocytes # (Manual) PT INR D-Dimer Heparin Anti-Xa Level ABG pH ABG pO2 ABG HCO3 ABG O2 Saturation ABG Base Excess ABG Hemoglobin Sodium Potassium Chloride Carbon Dioxide BUN Creatinine Glucose POC Glucose 314 H 303 H Lactic Acid Calcium Phosphorus Magnesium Total Bilirubin Direct Bilirubin AST ALT Alkaline Phosphatase Lactate Dehydrogenase Troponin T C-Reactive Protein NT-Pro-B Natriuret Pep Total Protein Albumin Urine Creatinine 04/17/20 04/17/20 04/17/20 04:31 08:01 10:30 WBC RBC Hgb Hct MCV MCH MCHC RDW Plt Count Lymph % (Auto) Lymph # (Auto) Seg Neutrophils % Seg Neuts % (Manual) Lymphocytes % (Manual) Nucleated RBC % Seg Neutrophils # Seg Neutrophils # Man Lymphocytes # (Manual) PT INR D-Dimer Heparin Anti-Xa Level ABG pH 7.505 H ABG pO2 157.9 H ABG HCO3 19.4 L ABG O2 Saturation 99.1 H ABG Base Excess -2.8 L ABG Hemoglobin 9.1 L Sodium Potassium Chloride Carbon Dioxide 18 L BUN 111 H Creatinine 2.9 H Glucose 184 H POC Glucose 185 H Lactic Acid Calcium 7.9 L Phosphorus Magnesium Total Bilirubin Direct Bilirubin AST ALT 201 H Alkaline Phosphatase 148 H Lactate Dehydrogenase Troponin T C-Reactive Protein NT-Pro-B Natriuret Pep Total Protein 6.1 L Albumin 3.4 L Urine Creatinine 04/17/20 04/17/20 04/17/20 12:14 17:57 20:54 WBC RBC Hgb Hct MCV MCH MCHC RDW Plt Count Lymph % (Auto) Lymph # (Auto) Seg Neutrophils % Seg Neuts % (Manual) Lymphocytes % (Manual) Nucleated RBC % Seg Neutrophils # Seg Neutrophils # Man Lymphocytes # (Manual) PT INR D-Dimer Heparin Anti-Xa Level ABG pH ABG pO2 ABG HCO3 ABG O2 Saturation ABG Base Excess ABG Hemoglobin Sodium Potassium Chloride Carbon Dioxide BUN Creatinine Glucose POC Glucose 143 H 144 H 144 H Lactic Acid Calcium Phosphorus Magnesium Total Bilirubin Direct Bilirubin AST ALT Alkaline Phosphatase Lactate Dehydrogenase Troponin T C-Reactive Protein NT-Pro-B Natriuret Pep Total Protein Albumin Urine Creatinine 04/18/20 04/18/20 04/18/20 04:40 08:06 12:16 WBC RBC Hgb Hct MCV MCH MCHC RDW Plt Count Lymph % (Auto) Lymph # (Auto) Seg Neutrophils % Seg Neuts % (Manual) Lymphocytes % (Manual) Nucleated RBC % Seg Neutrophils # Seg Neutrophils # Man Lymphocytes # (Manual) PT INR D-Dimer Heparin Anti-Xa Level ABG pH ABG pO2 ABG HCO3 ABG O2 Saturation ABG Base Excess ABG Hemoglobin Sodium Potassium Chloride Carbon Dioxide 20 L BUN 120 H Creatinine 2.7 H Glucose 174 H POC Glucose 158 H 273 H Lactic Acid Calcium 7.9 L Phosphorus Magnesium Total Bilirubin 1.30 H Direct Bilirubin AST ALT 165 H Alkaline Phosphatase 139 H Lactate Dehydrogenase Troponin T C-Reactive Protein NT-Pro-B Natriuret Pep Total Protein 6.1 L Albumin 3.3 L Urine Creatinine 04/18/20 04/18/20 04/19/20 16:33 20:09 04:43 WBC 11.1 H RBC Hgb 9.0 L Hct 28.5 L MCV 77 L MCH 24 L MCHC RDW 21.2 H Plt Count 107 L Lymph % (Auto) Lymph # (Auto) Seg Neutrophils % Seg Neuts % (Manual) 95.0 H Lymphocytes % (Manual) 4.0 L Nucleated RBC % 2.0 H Seg Neutrophils # Seg Neutrophils # Man 10.5 H Lymphocytes # (Manual) 0.4 L PT INR D-Dimer Heparin Anti-Xa Level ABG pH ABG pO2 ABG HCO3 ABG O2 Saturation ABG Base Excess ABG Hemoglobin Sodium Potassium Chloride Carbon Dioxide BUN Creatinine Glucose POC Glucose 230 H 244 H Lactic Acid Calcium Phosphorus Magnesium Total Bilirubin Direct Bilirubin AST ALT Alkaline Phosphatase Lactate Dehydrogenase Troponin T C-Reactive Protein NT-Pro-B Natriuret Pep Total Protein Albumin Urine Creatinine 04/19/20 04/19/20 04/19/20 04:43 08:00 12:43 WBC RBC Hgb Hct MCV MCH MCHC RDW Plt Count Lymph % (Auto) Lymph # (Auto) Seg Neutrophils % Seg Neuts % (Manual) Lymphocytes % (Manual) Nucleated RBC % Seg Neutrophils # Seg Neutrophils # Man Lymphocytes # (Manual) PT INR D-Dimer Heparin Anti-Xa Level ABG pH ABG pO2 ABG HCO3 ABG O2 Saturation ABG Base Excess ABG Hemoglobin Sodium Potassium 3.4 L Chloride Carbon Dioxide BUN 110 H Creatinine 2.6 H Glucose 215 H POC Glucose 175 H 226 H Lactic Acid Calcium 8.3 L Phosphorus Magnesium Total Bilirubin Direct Bilirubin AST ALT 126 H Alkaline Phosphatase 140 H Lactate Dehydrogenase Troponin T C-Reactive Protein NT-Pro-B Natriuret Pep Total Protein 5.8 L Albumin 3.2 L Urine Creatinine 04/19/20 04/19/20 04/20/20 16:53 20:18 06:58 WBC RBC 3.63 L Hgb 8.7 L Hct 27.9 L MCV 77 L MCH 24 L MCHC 31 L RDW 21.1 H Plt Count 92 L Lymph % (Auto) Lymph # (Auto) Seg Neutrophils % Seg Neuts % (Manual) 91.0 H Lymphocytes % (Manual) 2.0 L Nucleated RBC % Seg Neutrophils # Seg Neutrophils # Man 8.1 H Lymphocytes # (Manual) 0.2 L PT INR D-Dimer Heparin Anti-Xa Level ABG pH ABG pO2 ABG HCO3 ABG O2 Saturation ABG Base Excess ABG Hemoglobin Sodium Potassium Chloride Carbon Dioxide BUN Creatinine Glucose POC Glucose 246 H 254 H Lactic Acid Calcium Phosphorus Magnesium Total Bilirubin Direct Bilirubin AST ALT Alkaline Phosphatase Lactate Dehydrogenase Troponin T C-Reactive Protein NT-Pro-B Natriuret Pep Total Protein Albumin Urine Creatinine 04/20/20 04/20/20 04/20/20 06:58 08:32 10:57 WBC RBC Hgb Hct MCV MCH MCHC RDW Plt Count Lymph % (Auto) Lymph # (Auto) Seg Neutrophils % Seg Neuts % (Manual) Lymphocytes % (Manual) Nucleated RBC % Seg Neutrophils # Seg Neutrophils # Man Lymphocytes # (Manual) PT INR D-Dimer Heparin Anti-Xa Level ABG pH ABG pO2 ABG HCO3 ABG O2 Saturation ABG Base Excess ABG Hemoglobin Sodium Potassium 3.5 L Chloride 108.9 H Carbon Dioxide BUN 96 H Creatinine 2.0 H Glucose 318 H POC Glucose 293 H 275 H Lactic Acid Calcium Phosphorus Magnesium Total Bilirubin Direct Bilirubin AST ALT Alkaline Phosphatase Lactate Dehydrogenase Troponin T C-Reactive Protein NT-Pro-B Natriuret Pep Total Protein Albumin Urine Creatinine 04/20/20 04/21/20 04/21/20 15:26 04:48 04:48 WBC RBC Hgb 9.1 L Hct 29.5 L MCV 78 L MCH 24 L MCHC 31 L RDW 21.2 H Plt Count 98 L Lymph % (Auto) 3.1 L Lymph # (Auto) 0.3 L Seg Neutrophils % 88.4 H Seg Neuts % (Manual) Lymphocytes % (Manual) Nucleated RBC % Seg Neutrophils # 9.0 H Seg Neutrophils # Man Lymphocytes # (Manual) PT INR D-Dimer Heparin Anti-Xa Level ABG pH ABG pO2 ABG HCO3 ABG O2 Saturation ABG Base Excess ABG Hemoglobin Sodium 148 H Potassium Chloride 111.9 H Carbon Dioxide BUN 85 H Creatinine 1.8 H Glucose 213 H POC Glucose 124 H Lactic Acid Calcium Phosphorus Magnesium Total Bilirubin Direct Bilirubin AST ALT Alkaline Phosphatase Lactate Dehydrogenase Troponin T C-Reactive Protein NT-Pro-B Natriuret Pep Total Protein Albumin Urine Creatinine 04/21/20 07:58 WBC RBC Hgb Hct MCV MCH MCHC RDW Plt Count Lymph % (Auto) Lymph # (Auto) Seg Neutrophils % Seg Neuts % (Manual) Lymphocytes % (Manual) Nucleated RBC % Seg Neutrophils # Seg Neutrophils # Man Lymphocytes # (Manual) PT INR D-Dimer Heparin Anti-Xa Level ABG pH ABG pO2 ABG HCO3 ABG O2 Saturation ABG Base Excess ABG Hemoglobin Sodium Potassium Chloride Carbon Dioxide BUN Creatinine Glucose POC Glucose 177 H Lactic Acid Calcium Phosphorus Magnesium Total Bilirubin Direct Bilirubin AST ALT Alkaline Phosphatase Lactate Dehydrogenase Troponin T C-Reactive Protein NT-Pro-B Natriuret Pep Total Protein Albumin Urine Creatinine - Diagnostic Findings Chest x-ray: image reviewed Assessment and Plan 75 y/o male with known systolic heart failure, admitted with shortness of breath and abdominal pain 10 days ago, had nonsustained V-tach on arrival but never lost pulse, now with abnormal CXR and chronic respiratory failure. 1. Reviewed multiple imaging from this patient over several hospital stays. His most recent films are definitely improved compared to arrival and are better or close to the same as some of the images on past admits when not in fluid overload. I am not appreciating the bibasilar opacities that are commented on in the radiology report. Clinically the patient appears to be stable and has not had any increase in his O2 requirement and has good sats. I do not currently see a need for CT of chest nor do I see a need for empiric abx therapy. Would continue current COPD regimen, encourage smoking cessation and consider Incentive spirometry therapy 10-14x per hour while awake. Will sign off. Thank you for this consult. Call if any questions or concerns.
--- NOTE | 2020-04-21 09:40 | Progress Note ---
Assessment and Plan Assessment and plan: ---Acute respiratory failure Current Visit: Yes Status: Acute Plan to address problem: Slightly improving but still needs oxygen to maintain sats. CT chest x-ray ordered Has no pneumonia and no sepsis. Continue oxygen supplementation COVID-19 test negative --Acute on chronic systolic CHF (congestive heart failure) Current Visit: Yes Status: Acute Plan to address problem: Holding Lasix due to KIRT Will monitor daily weight, inputs and outputs. Monitor renal function closely Cardiology on board --KIRT (acute kidney injury) Current Visit: Yes Status: Acute Plan to address problem: Creatinine stable at 3.1 Discontinued Lasix. Vasomotor nephropathy Nephrology following --Colitis Current Visit: Yes Status: Acute Plan to address problem: Resolved GI recommendations appreciated --Arrhythmias-atrial fibrillation versus nonsustained ventricular tachycardia Current Visit: Yes Status: Acute Plan to address problem: Initially started on amiodarone but discontinued due to elevated LFTs Now on metoprolol every 6 and rate is currently controlled. Started on low-dose apixaban 2.5 mg twice daily Cardiology recommendations appreciated --Diabetes mellitus type 2 in nonobese Current Visit: No Status: Acute Plan to address problem: Lantus and sliding scale insulin. --Hyperkalemia and metabolic acidosis Current Visit: Yes Status: Acute Plan to address problem: Resolved --T12 compression fracture Current Visit: No Status: Likely chronic Plan to address problem: CT abdomen showed acute appearing T12 compression fracture 04/14. MRI thoracic without contrast ordered to further evaluate. 04/15. Patient is agitated and unable to get an MRI. 04/16. Awaiting MRI without contrast thoracic. Plan to use sedatives today. Informed RN. If positive for acute fracture, patient will need to be transferred for neurosurgery evaluation. 04/17. MRI thoracic and lumbar showed acute T12 compression fracture. Discussed case with [place] neurosurgery operations consultant who advised no acute intervention is necessary at this time-advised TLSO brace when patient is sitting or ambulatory. He will need follow-up with Dr. Dalton Jack, Dr. Alan Henson, Dr. Tyson Clark [contact number [phone]] after discharge. ---Elevated LFTs Current Visit: Yes Status: Acute Plan to address problem: Improving US abdomen shows no acute pathology ---Infrarenal aortic aneurysm Current Visit: No Status: Acute Plan to address problem: 3.8 cm in diameter Needs to follow-up with vascular surgery at discharge for monitoring -Anemia and thrombocytopenia Current Visit: No Status: Acute Plan to address problem: Monitor platelets ?HIT - Hold heparin for now Peripheral smear reviewed - target cells, tear drops. Hematology consulted -- DVT prophylaxis Current Visit: No Status: Acute Plan to address problem: Hold heparin for now. Started on anticoagulation per cardiology. HIT antibody sent --Full code status Current Visit: No Status: Acute Disposition-home with hospice as per patient son plan stable 04/11. Patient seen and examined at bedside this morning. Patient is on BiPAP. Patient is eager to go home. Otherwise denies any chest pain or palpitations. Patient CT showed possible compression fracture of T12, it is unknown if this is new. We will get MRI without contrast of the thoracic and lumbar to further evaluate. If patient actually has an acute compression fracture, he will need to have a neurosurgery evaluation so will need to be transferred to another facility for this. Otherwise, patient continue to monitor patient's respiratory status while in the IMCU. Patient reportedly failed a swallow evaluation and will need to have an NG tube placement. Tried to call son on number provided in the chart and left a message. Awaiting callback. Labs reviewed-patient has elevated inflammatory [id number], LDH. COVID-19 test has been ordered. Started patient on steroids. Ordered stat BMP, ABG, D-dimer, proBNP, ferritin, LDH. 04/12. COVID -19 test is negative. His breathing has improved so was placed on nasal cannula. Cardiology adjusted meds today. He failed swallow evaluation yesterday. He requests for food. Will reattempt swallow evaluation. Speech therapy consult. 04/13. Overnight, he developed VT and was started on amiodarone. HR better this AM. Cardiology will review medications. Patient seen and examined at bedside this AM. He requests for food. He failed a repeat speech evaluation and will need barium swallow. May need PEG placement if he fails. NG tube in place. Vitals reviewed 04/14. Heart rate improved. Remains n.p.o. with NG tube feeds. Video swallow evaluation shows mild abnormal study. Speech therapist to see patient. Patient has not been able to have an MRI of the back due to agitation. He had a CT during the admission that showed possible compression fracture of T12 but this has not been fully evaluated due to patient's ongoing conditions. Labs reviewed-renal function is worse. Discontinue Lasix. 04/15. Has been started on a diet and is tolerating. He pulled out his NG tube last night. Okay to leave NG tube for now. Plan to get an MRI performed today with sedative to evaluate T12 fracture. Patient denies any back pain. Renal function slightly improved today after Lasix was discontinued. Continue IV hydration. Nephrology recommendations appreciated 04/16. He feels better today. MRI could not be done yesterday. Hopefully patient can have an MRI done today. Creatinine 3.1 today. Patient will need placement but will need to have evaluation of possible T12 fracture prior to discharge 04/17. MRI thoracic and lumbar showed acute T12 compression fracture. Discussed case with [place] neurosurgery operations consultant who advised no acute intervention is necessary at this time-advised TLSO brace when patient is sitting or ambulatory. He will need follow-up with Dr. Dalton Jack, Dr. Alan Henson, Dr. Tyson Clark [contact number [phone]] after discharge. 04/18. Await Nephrology recs for d/c plans 04/19/2020. Patient reportedly with choking/coughing with swallowing. We will change to n.p.o. status right now. Speech reevaluation. Check chest x-ray to rule out aspiration pneumonia. Await nephrology recommendations for discharge. Creatinine slowly improving. CT of abdomen negative for hydronephrosis. BUN increasing. Therefore, we will check Hemoccult of stool to rule out GI bleed. Hemoglobin has been stable. 04/20/2020. Repeat chest x-ray reveals worsening bibasilar opacities. Pulmonary consulted. Doppler of left upper extremity for swelling. PT evaluation recommends subacute rehab 04/21/2020. Await pulmonary consultation for worsening bibasilar opacities. Doppler of left upper extremity pending. PT evaluation recommends subacute rehab. Creatinine has improved to near baseline of 1.8. Nephrology following History Interval history: Patient with left upper extremity swelling. Hospitalist Physical - Constitutional Vitals: Temp Pulse Resp BP Pulse Ox 97.5 F L 75 18 173/77 100 04/21/20 08:57 04/21/20 08:57 04/21/20 08:57 04/21/20 08:57 04/21/20 08:57 General appearance: Present: no acute distress - EENT Eyes: Present: PERRL, EOM intact ENT: hearing intact, clear oral mucosa, dentition normal - Neck Neck: Present: supple, normal ROM - Respiratory Respiratory effort: normal Respiratory: bilateral: CTA - Cardiovascular Rhythm: regular Heart Sounds: Present: S1 & S2. Absent: gallop, rub - Extremities Extremities: no ischemia, No edema, Full ROM - Abdominal General gastrointestinal: soft, non-tender, non-distended, normal bowel sounds - Integumentary Integumentary: Present: clear, warm, dry - Neurologic Neurologic: CNII-XII intact, moves all extremities HEART Score - HEART Score Troponin: Troponin T 0.081 ng/mL (0.00-0.029) H 04/10/20 20:04 Results - Labs CBC & Chem 7: 04/21/20 04:48 04/21/20 04:48 Labs: Laboratory Last Values WBC 10.2 K/mm3 (4.5-11.0) 04/21/20 04:48 RBC 3.78 M/mm3 (3.65-5.03) 04/21/20 04:48 Hgb 9.1 gm/dl (11.8-15.2) L 04/21/20 04:48 Hct 29.5 % (35.5-45.6) L 04/21/20 04:48 MCV 78 fl (84-94) L 04/21/20 04:48 MCH 24 pg (28-32) L 04/21/20 04:48 MCHC 31 % (32-34) L 04/21/20 04:48 RDW 21.2 % (13.2-15.2) H 04/21/20 04:48 Plt Count 98 K/mm3 (140-440) L 04/21/20 04:48 Lymph % (Auto) 3.1 % (13.4-35.0) L 04/21/20 04:48 Brule % (Auto) 6.7 % (0.0-7.3) 04/21/20 04:48 Eos % (Auto) 1.4 % (0.0-4.3) 04/21/20 04:48 Baso % (Auto) 0.4 % (0.0-1.8) 04/21/20 04:48 Lymph # (Auto) 0.3 K/mm3 (1.2-5.4) L 04/21/20 04:48 Brule # (Auto) 0.7 K/mm3 (0.0-0.8) 04/21/20 04:48 Eos # (Auto) 0.1 K/mm3 (0.0-0.4) 04/21/20 04:48 Baso # (Auto) 0.0 K/mm3 (0.0-0.1) 04/21/20 04:48 Add Manual Diff Complete 04/20/20 06:58 Total Counted 100 04/20/20 06:58 Seg Neutrophils % 88.4 % (40.0-70.0) H 04/21/20 04:48 Seg Neuts % (Manual) 91.0 % (40.0-70.0) H 04/20/20 06:58 Band Neutrophils % 0 % 04/20/20 06:58 Lymphocytes % (Manual) 2.0 % (13.4-35.0) L 04/20/20 06:58 Reactive Lymphs % (Man) 0 % 04/20/20 06:58 Monocytes % (Manual) 7.0 % (0.0-7.3) 04/20/20 06:58 Eosinophils % (Manual) 0 % (0.0-4.3) 04/20/20 06:58 Basophils % (Manual) 0 % (0.0-1.8) 04/20/20 06:58 Metamyelocytes % 0 % 04/20/20 06:58 Myelocytes % 0 % 04/20/20 06:58 Promyelocytes % 0 % 04/20/20 06:58 Blast Cells % 0 % 04/20/20 06:58 Nucleated RBC % Not Reportable 04/20/20 06:58 Seg Neutrophils # 9.0 K/mm3 (1.8-7.7) H 04/21/20 04:48 Seg Neutrophils # Man 8.1 K/mm3 (1.8-7.7) H 04/20/20 06:58 Band Neutrophils # 0.0 K/mm3 04/20/20 06:58 Lymphocytes # (Manual) 0.2 K/mm3 (1.2-5.4) L 04/20/20 06:58 Abs React Lymphs (Man) 0.0 K/mm3 04/20/20 06:58 Monocytes # (Manual) 0.6 K/mm3 (0.0-0.8) 04/20/20 06:58 Eosinophils # (Manual) 0.0 K/mm3 (0.0-0.4) 04/20/20 06:58 Basophils # (Manual) 0.0 K/mm3 (0.0-0.1) 04/20/20 06:58 Metamyelocytes # 0.0 K/mm3 04/20/20 06:58 Myelocytes # 0.0 K/mm3 04/20/20 06:58 Promyelocytes # 0.0 K/mm3 04/20/20 06:58 Blast Cells # 0.0 K/mm3 04/20/20 06:58 WBC Morphology Not Reportable 04/20/20 06:58 Hypersegmented Neuts Not Reportable 04/20/20 06:58 Hyposegmented Neuts Not Reportable 04/20/20 06:58 Hypogranular Neuts Not Reportable 04/20/20 06:58 Smudge Cells Not Reportable 04/20/20 06:58 Toxic Granulation Not Reportable 04/20/20 06:58 Toxic Vacuolation Not Reportable 04/20/20 06:58 Dohle Bodies Not Reportable 04/20/20 06:58 Pelger-Huet Anomaly Not Reportable 04/20/20 06:58 Barby Rods Not Reportable 04/20/20 06:58 Platelet Estimate Consistent w auto 04/20/20 06:58 Clumped Platelets Not Reportable 04/20/20 06:58 Plt Clumps, EDTA Not Reportable 04/20/20 06:58 Large Platelets Not Reportable 04/20/20 06:58 Giant Platelets Not Reportable 04/20/20 06:58 Platelet Satelliting Not Reportable 04/20/20 06:58 Plt Morphology Comment Not Reportable 04/20/20 06:58 RBC Morphology Not Reportable 04/20/20 06:58 Dimorphic RBCs Not Reportable 04/20/20 06:58 Polychromasia Not Reportable 04/20/20 06:58 Hypochromasia 2+ 04/20/20 06:58 Poikilocytosis Not Reportable 04/20/20 06:58 Anisocytosis 1+ 04/20/20 06:58 Microcytosis Not Reportable 04/20/20 06:58 Macrocytosis Not Reportable 04/20/20 06:58 Spherocytes Not Reportable 04/20/20 06:58 Pappenheimer Bodies Not Reportable 04/20/20 06:58 Sickle Cells Not Reportable 04/20/20 06:58 Target Cells Not Reportable 04/20/20 06:58 Tear Drop Cells Not Reportable 04/20/20 06:58 Ovalocytes Not Reportable 04/20/20 06:58 Helmet Cells Not Reportable 04/20/20 06:58 Snell-Pitman Bodies Not Reportable 04/20/20 06:58 [place] Rings Not Reportable 04/20/20 06:58 [place] Cells Not Reportable 04/20/20 06:58 Bite Cells Not Reportable 04/20/20 06:58 Crenated Cell Not Reportable 04/20/20 06:58 Elliptocytes Not Reportable 04/20/20 06:58 Acanthocytes (Spur) Not Reportable 04/20/20 06:58 Rouleaux Not Reportable 04/20/20 06:58 Hemoglobin C Crystals Not Reportable 04/20/20 06:58 Schistocytes Not Reportable 04/20/20 06:58 Malaria parasites Not Reportable 04/20/20 06:58 Willie Bodies Not Reportable 04/20/20 06:58 Hem Pathologist Commnt No 04/20/20 06:58 PT 15.5 Sec. (12.2-14.9) H 04/12/20 06:22 INR 1.21 (0.87-1.13) H 04/12/20 06:22 D-Dimer 2029.09 ng/mlDDU (0-234) H 04/11/20 15:11 Heparin Anti-Xa Level 0.35 U.I./ml (0.3-0.7) 04/13/20 05:06 ABG pH 7.505 pH Units (7.350-7.450) H 04/17/20 10:30 ABG pCO2 25.2 mm Hg 04/17/20 10:30 ABG pO2 157.9 mm Hg (80.0-90.0) H 04/17/20 10:30 ABG HCO3 19.4 mmol/L (20.0-26.0) L 04/17/20 10:30 ABG O2 Saturation 99.1 % (95.0-99.0) H 04/17/20 10:30 ABG O2 Content 12.7 (0.0-44) 04/17/20 10:30 ABG Base Excess -2.8 mmol/L (-2.0-3.0) L 04/17/20 10:30 ABG Hemoglobin 9.1 gm/dl (14.0-18.0) L 04/17/20 10:30 ABG Carboxyhemoglobin 1.6 % (0.0-5.0) 04/17/20 10:30 ABG Methemoglobin 0.4 % (0.0-1.5) 04/17/20 10:30 Oxyhemoglobin 97.0 % (95.0-99.0) 04/17/20 10:30 FiO2 35 % 04/17/20 10:30 Sodium 148 mmol/L (137-145) H 04/21/20 04:48 Potassium 4.5 mmol/L (3.6-5.0) D 04/21/20 04:48 Chloride 111.9 mmol/L (98-107) H 04/21/20 04:48 Carbon Dioxide 27 mmol/L (22-30) 04/21/20 04:48 Anion Gap 14 mmol/L 04/21/20 04:48 BUN 85 mg/dL (9-20) H 04/21/20 04:48 Creatinine 1.8 mg/dL (0.8-1.3) H 04/21/20 04:48 Estimated GFR 37 ml/min 04/21/20 04:48 BUN/Creatinine Ratio 47 % 04/21/20 04:48 Glucose 213 mg/dL (75-100) H 04/21/20 04:48 POC Glucose 177 mg/dL (70-105) H 04/21/20 07:58 Lactic Acid 3.00 mmol/L (0.7-2.0) H* 04/12/20 06:22 Calcium 8.7 mg/dL (8.4-10.2) 04/21/20 04:48 Phosphorus 5.60 mg/dL (2.5-4.5) H 04/10/20 22:50 Magnesium 2.40 mg/dL (1.7-2.3) H 04/10/20 22:50 Ferritin 135.1 ng/mL (30.0-300.0) 04/11/20 15:11 Total Bilirubin 1.20 mg/dL (0.1-1.2) 04/19/20 04:43 Direct Bilirubin 0.6 mg/dL (0-0.2) H 04/15/20 04:56 Indirect Bilirubin 0.3 mg/dL 04/15/20 04:56 AST 24 units/L (5-40) 04/19/20 04:43 ALT 126 units/L (7-56) H 04/19/20 04:43 Alkaline Phosphatase 140 units/L (35-129) H 04/19/20 04:43 Lactate Dehydrogenase 664 units/L (91-180) H 04/10/20 20:51 Troponin T 0.081 ng/mL (0.00-0.029) H 04/10/20 20:04 C-Reactive Protein 5.60 mg/dL (0.00-1.30) H 04/10/20 20:51 NT-Pro-B Natriuret Pep > 75730 pg/mL (0-900) H 04/11/20 15:11 Total Protein 5.8 g/dL (6.3-8.2) L 04/19/20 04:43 Albumin 3.2 g/dL (3.9-5) L 04/19/20 04:43 Albumin/Globulin Ratio 1.2 % 04/19/20 04:43 Triglycerides 113 mg/dL (2-149) 04/10/20 20:04 Cholesterol 178 mg/dL (50-199) 04/10/20 20:04 LDL Cholesterol Direct 123 mg/dL (50-130) 04/10/20 20:04 HDL Cholesterol 41 mg/dL (40-59) 04/10/20 20:04 Cholesterol/HDL Ratio 4.34 % 04/10/20 20:04 Procalcitonin 2.47 ng/mL (<0.15) 04/11/20 15:11 TSH 3.640 mlU/mL (0.270-4.200) 04/13/20 10:06 Urine Color Yellow (Yellow) 04/11/20 Unknown Urine Turbidity Clear (Clear) 04/11/20 Unknown Urine pH 5.0 (5.0-7.0) 04/11/20 Unknown Ur Specific [place] 1.009 (1.003-1.030) 04/11/20 Unknown Urine Protein <15 mg/dl mg/dL (Negative) 04/11/20 Unknown Urine Glucose (UA) Neg mg/dL (Negative) 04/11/20 Unknown Urine Ketones Neg mg/dL (Negative) 04/11/20 Unknown Urine Blood Neg (Negative) 04/11/20 Unknown Urine Nitrite Neg (Negative) 04/11/20 Unknown Urine Bilirubin Neg (Negative) 04/11/20 Unknown Urine Urobilinogen < 2.0 mg/dL (<2.0) 04/11/20 Unknown Ur Leukocyte Esterase Neg (Negative) 04/11/20 Unknown Urine WBC (Auto) 1.0 /HPF (0.0-6.0) 04/11/20 Unknown Urine RBC (Auto) 2.0 /HPF (0.0-6.0) 04/11/20 Unknown U Epithel Cells (Auto) < 1.0 /HPF (0-13.0) 04/11/20 Unknown Hyaline Casts 3 /LPF 04/11/20 Unknown Urine Mucus Few /HPF 04/11/20 Unknown Urine Eosinophils None seen (None Seen) 04/11/20 Unknown Urine Creatinine 35.3 mg/dL (0.1-20.0) H 04/11/20 Unknown Urine Sodium 92 mmol/L 04/11/20 Unknown Coronavirus (PCR) Negative (Negative) 04/11/20 Unknown Hepatitis A IgM Ab Non-reactive (NonReactive) 04/12/20 20:23 Hep Bs Antigen Non-reactive (Negative) 04/12/20 20:23 Hep B Core IgM Ab Non-reactive (NonReactive) 04/12/20 20:23 Hepatitis C Antibody Non-reactive (NonReactive) 04/12/20 20:23 Gay/IV: Voiding Method Condom Catheter IV Catheter Type [Right Upper INT / Saline Lock arm] IV Catheter Type [Left Wrist] Peripheral IV IV Catheter Type [Right INT / Saline Lock Forearm] IV Catheter Type [Right Wrist] INT / Saline Lock Active Medications - Current Medications Current Medications: Generic Name Dose Route Start Last Admin Trade Name Freq PRN Reason Stop Dose Admin Acetaminophen 650 mg 04/11/20 01:26 Tylenol PO Q6H PRN Pain MILD(1-3)/Fever >100.5/MANCILLA Lipase/Protease/Amylase 1 each 04/11/20 14:22 Pancremiley Saenz 10,500 Unit FEEDTUBE PRN PRN For Clogged Feeding Tube Apixaban 2.5 mg 04/17/20 12:00 04/20/20 22:36 Eliquis PO 2.5 mg Q12HR PRAVIN Administration Protocol Arformoterol Tartrate 15 mcg 04/20/20 20:00 04/21/20 07:06 Brovana Nebu IH 15 mcg Q12HRT PRAVIN Administration Budesonide 0.5 mg 04/20/20 20:00 04/21/20 07:07 Pulmicort IH 0.5 mg Q12HRT PRAVIN Administration Insulin Glargine 10 units 04/16/20 22:00 04/20/20 22:36 Lantus SUB-Q Not Given QHS PRAVIN Insulin Human Lispro 0 unit 04/16/20 16:30 04/20/20 22:35 Humalog SUB-Q Not Given ACHS [facility] Protocol Magnesium Hydroxide 30 ml 04/11/20 01:26 Milk Of Magnesia PO Q4H PRN Constipation Metoprolol Tartrate 50 mg 04/17/20 13:00 04/20/20 22:25 Metoprolol PO 50 mg BID PRAVIN Administration Simple Syrup 15 ml 04/11/20 14:22 Simple Syrup FEEDTUBE PRN PRN Hypoglycemia Simple Syrup 30 ml 04/11/20 14:22 Simple Syrup FEEDTUBE PRN PRN Hypoglycemia Sodium Bicarbonate 325 mg 04/11/20 14:22 Sodium Bicarbonate FEEDTUBE PRN PRN For Clogged Feeding Tube Sodium Chloride 10 ml 04/11/20 10:00 04/20/20 22:36 Sodium Chloride Flush Syringe 10 Ml IV 10 ml BID PRAVIN Administration Sodium Chloride 10 ml 04/11/20 01:26 Sodium Chloride Flush Syringe 10 Ml IV PRN PRN LINE FLUSH Nutrition/Malnutrition Assess - Dietary Evaluation Nutrition/Malnutrition Findings: Nutrition Notes Start: 04/11/20 13:41 Freq: Status: Active Protocol: Document 04/19/20 13:05 LP (Rec: 04/19/20 13:06 LP [id number]) Nutrition Notes Initial or Follow up Brief Note Current Diet NPO Subjective/Other Information Pt NPO noted choking on food yesterday when eating. Nutrition Intervention Follow-Up By: 04/21/20 Additional Comments Follow for diet advancement
[2020-04-21] MEDS: INSULIN LISPRO 100 UNIT/ML VIAL 3 mL SUB-Q SCH ×4 (10:00→23:00)
[2020-04-21] MEDS: METOPROLOL TARTRATE 50 MG TAB PO SCH (10:05)
[2020-04-21] MEDS: APIXABAN 2.5 MG TAB PO SCH ×2 (10:05→22:59)
--- NOTE | 2020-04-21 10:05 | Progress Note ---
Assessment and Plan 1. Acute kidney injury: Vasomotor KIRT superimposed on CKD. CT abdomen negative for hydro. Monitor renal function. Creatinine level slowly improving. Renal prognosis is guarded. Avoid nephrotoxic agents. Meds dosage based on GFR. 2. FEN: Hypokalemia, K level is better, monitor. Anion-gap metabolic acidosis, improved, monitor. Sod bicarbonate as needed. Monitor lytes and volume status. 3. Acute hypoxic respiratory failure: Was on BIPAP. Possibly secondary to the CHF and underlying pneumonia. COVID-19 test negative. 4. Chronic CHF: Monitor daily weight, intake and outputs. Followed by Cards. 5. Colitis: Monitor. Seen by GI. 6. Anemia, POA: Monitor. 7. Elevated Transaminases: Monitor. 8. DM type 2. 9. HTN: Monitor BP. Subjective: Patient was seen and examined at the bedside. RN at the bedside. Examination: General appearance: well-developed, appears stated age, on restrains HEENT: ATNC, pupils equal Neck: trachea midline Respiratory: ctab Heart: regular, S1S2, no murmur Gastrointestinal: soft, normoactive bowel sounds, not tender Integumentary: no rash, warm and dry Neurologic: alert, moving extremities, answers few questions, confused Ext: no edema Subjective Date of service: 04/21/20 Objective - Vital Signs Vital signs: Vital Signs - 12hr 04/21/20 04/21/20 04/21/20 00:34 05:01 07:07 Temperature 97.5 F L Pulse Rate 80 33 L Pulse Rate [ 78 Anterior Bilateral Throughout] Respiratory 20 18 Rate Respiratory 20 Rate [Anterior Bilateral Throughout] Blood Pressure 133/74 131/66 O2 Sat by Pulse 96 91 99 Oximetry 04/21/20 08:57 Temperature 97.5 F L Pulse Rate 75 Pulse Rate [ Anterior Bilateral Throughout] Respiratory 18 Rate Respiratory Rate [Anterior Bilateral Throughout] Blood Pressure 173/77 O2 Sat by Pulse 100 Oximetry - Lab 04/21/20 04:48 04/21/20 04:48 Most recent lab results ABG pH 7.505 pH Units (7.350-7.450) H 04/17/20 10:30 ABG pCO2 25.2 mm Hg 04/17/20 10:30 ABG pO2 157.9 mm Hg (80.0-90.0) H 04/17/20 10:30 ABG HCO3 19.4 mmol/L (20.0-26.0) L 04/17/20 10:30 ABG O2 Saturation 99.1 % (95.0-99.0) H 04/17/20 10:30 Calcium 8.7 mg/dL (8.4-10.2) 04/21/20 04:48 Phosphorus 5.60 mg/dL (2.5-4.5) H 04/10/20 22:50 Magnesium 2.40 mg/dL (1.7-2.3) H 04/10/20 22:50 Urine Creatinine 35.3 mg/dL (0.1-20.0) H 04/11/20 Unknown Urine Sodium 92 mmol/L 04/11/20 Unknown Medications & Allergies - Medications Allergies/Adverse Reactions: Allergies Sulfa (Sulfonamide Antibiotics) Allergy (Verified 07/30/18 17:44) Rash Home Medications: Home Medications Medication Instructions Recorded Confirmed Last Taken Type Gabapentin 300 mg PO BID 09/19/16 04/21/20 09/18/16 History 300 mg Metformin HCl [metFORMIN ER 500 mg PO BIDWM 03/28/17 04/21/20 Unknown History Gastric] AtorvaSTATin 10 mg PO QHS #30 tablet 12/21/17 04/21/20 Unknown Rx Ranolazine ER [Ranexa ER] 500 mg PO BID #60 tablet 12/21/17 04/21/20 Unknown Rx Aspirin 325 mg PO QDAY #30 tablet 01/12/18 04/21/20 04/21/20 Rx Diphenoxylate/Atropine [Lomotil] 1 tab PO Q8H PRN 01/15/18 04/21/20 Unknown History Insulin Lispro [HumaLOG VIAL] See Protocol SQ ACHS 01/15/18 04/21/20 04/21/20 18:46 History Promethazine [Phenergan] 25 mg PO Q4H PRN 01/15/18 04/21/20 Unknown History Albuterol Mdi (or & Nicu Only) 2 puff IH Q4HR PRN #1 inhalation 12/21/18 04/21/20 04/21/20 18:46 Rx [ProAir HFA Inhaler] Furosemide [Lasix TAB] 20 mg PO QDAY #30 tablet 02/03/20 04/21/20 Unknown Rx Metoprolol Xl [Metoprolol 25 mg PO DAILY #60 tablet 02/03/20 04/21/20 04/21/20 18:45 Rx SUCCINATE ER TAB] levETIRAcetam [Keppra TAB] 500 mg PO BID #120 tablet 02/03/20 04/21/20 Unknown Rx levoFLOXacin [Levaquin TAB] 500 mg PO QDAY #5 tablet 02/03/20 04/21/20 Unknown Rx Active Medications: Generic Name Dose Route Start Last Admin Trade Name Freq PRN Reason Stop Dose Admin Acetaminophen 650 mg 04/11/20 01:26 Tylenol PO Q6H PRN Pain MILD(1-3)/Fever >100.5/MANCILLA Lipase/Protease/Amylase 1 each 04/11/20 14:22 Pancremiley Saenz 10,500 Unit FEEDTUBE PRN PRN For Clogged Feeding Tube Apixaban 2.5 mg 04/17/20 12:00 04/20/20 22:36 Eliquis PO 2.5 mg Q12HR PRAVIN Administration Protocol Arformoterol Tartrate 15 mcg 04/20/20 20:00 04/21/20 07:06 Brovana Nebu IH 15 mcg Q12HRT PRAVIN Administration Budesonide 0.5 mg 04/20/20 20:00 04/21/20 07:07 Pulmicort IH 0.5 mg Q12HRT PRAVIN Administration Insulin Glargine 10 units 04/16/20 22:00 04/20/20 22:36 Lantus SUB-Q Not Given QHS PRAVIN Insulin Human Lispro 0 unit 04/16/20 16:30 04/21/20 10:00 Humalog SUB-Q Not Given ACHS [facility] Protocol Magnesium Hydroxide 30 ml 04/11/20 01:26 Milk Of Magnesia PO Q4H PRN Constipation Metoprolol Tartrate 50 mg 04/17/20 13:00 04/20/20 22:25 Metoprolol PO 50 mg BID PRAVIN Administration Simple Syrup 15 ml 04/11/20 14:22 Simple Syrup FEEDTUBE PRN PRN Hypoglycemia Simple Syrup 30 ml 04/11/20 14:22 Simple Syrup FEEDTUBE PRN PRN Hypoglycemia Sodium Bicarbonate 325 mg 04/11/20 14:22 Sodium Bicarbonate FEEDTUBE PRN PRN For Clogged Feeding Tube Sodium Chloride 10 ml 04/11/20 10:00 04/20/20 22:36 Sodium Chloride Flush Syringe 10 Ml IV 10 ml BID PRAVIN Administration Sodium Chloride 10 ml 04/11/20 01:26 Sodium Chloride Flush Syringe 10 Ml IV PRN PRN LINE FLUSH
--- NOTE | 2020-04-21 11:34 | Progress Note ---
Subjective Date of service: 04/21/20 Interval history: Subjective Date of service: 04/20/20 Interval history: Subjective No CV complaints Tele SR HR 70, no afib at present This AM had paroxysmal afib, brief, self-terminated 20-30 beats We are increasing BB today Assessment and Plan - Patient Problems (1) Chronic left ventricular systolic heart failure Current Visit: Yes Status: Acute Plan to address problem: We will continue guideline directed medical therapy for chronic systolic left ventricular dysfunction. (2) Paroxysmal atrial fibrillation Current Visit: Yes Status: Acute Plan to address problem: Amiodarone was discontinued due to elevated liver enzymes, but patient is on beta-blockers, and has no recurrent atrial fibrillation. will increase B-tracy today for pAfib that occurred this AM, it was brief approx 20-30 beats During this admission, we we have started the patient on low-dose Eliquis for stroke prophylaxis. (3) Coronary artery disease Current Visit: Yes Status: Acute Plan to address problem: Patient has history of coronary artery disease with stents in the proximal circumflex and mid right coronary artery, both patent on repeat cardiac catheterization 2 years ago. He is on medical therapy for small vessel disease, and currently asymptomatic for chest pain. We will continue medical therapy and risk factor modification. 4) HTN increasing BB should help Objective Vital Signs Temp Pulse Pulse Pulse Pulse Pulse Pulse 04/21/20 10:05 77 04/21/20 10:00 77 77 77 04/21/20 08:57 97.5 F L 75 04/21/20 07:07 78 04/21/20 05:01 97.5 F L 33 L 04/21/20 00:34 80 04/20/20 22:00 71 04/20/20 21:58 97.7 F 85 04/20/20 20:53 04/20/20 20:45 83 04/20/20 14:30 65 04/20/20 11:55 98.1 F 60 Resp Resp Resp BP Pulse Ox 04/21/20 10:05 163/74 04/21/20 10:00 18 04/21/20 08:57 18 173/77 100 04/21/20 07:07 20 99 04/21/20 05:01 18 131/66 91 04/21/20 00:34 20 133/74 96 04/20/20 22:00 18 04/20/20 21:58 20 147/81 98 04/20/20 20:53 94 04/20/20 20:45 17 04/20/20 14:30 04/20/20 11:55 18 124/57 94 - Physical Examination General: No Apparent Distress, Cachectic HEENT: Positive: PERRL Neck: Positive: trachea midline Cardiac: Positive: Reg Rate and Rhythm, S1/S2 Lungs: Positive: Normal Exam Neuro: Positive: Weakness Abdomen: Positive: Soft Skin: Positive: Clear Extremities: Absent: edema - Labs and Meds CBC 04/21/20 Range/Units 04:48 WBC 10.2 (4.5-11.0) K/mm3 RBC 3.78 (3.65-5.03) M/mm3 Hgb 9.1 L (11.8-15.2) gm/dl Hct 29.5 L (35.5-45.6) % Plt Count 98 L (140-440) K/mm3 Lymph # (Auto) 0.3 L (1.2-5.4) K/mm3 [place] # (Auto) 0.7 (0.0-0.8) K/mm3 Eos # (Auto) 0.1 (0.0-0.4) K/mm3 Baso # (Auto) 0.0 (0.0-0.1) K/mm3 Comprehensive Metabolic Panel 04/21/20 Range/Units 04:48 Sodium 148 H (137-145) mmol/L Potassium 4.5 D (3.6-5.0) mmol/L Chloride 111.9 H (98-107) mmol/L Carbon Dioxide 27 (22-30) mmol/L BUN 85 H (9-20) mg/dL Creatinine 1.8 H (0.8-1.3) mg/dL Glucose 213 H (75-100) mg/dL Calcium 8.7 (8.4-10.2) mg/dL
[2020-04-21] MEDS ORDERED: METOPROLOL TARTRATE 50 MG TAB PO SCH (12:00)
[2020-04-21] MEDS: METOPROLOL TARTRATE 100 MG TAB PO SCH ×2 (12:00→22:15)
[2020-04-21 16:33] LABS: Heparin-Induced Platelet Antib Negative (Negative); Unfractionated Heparin Negative (Negative)
[2020-04-21] MEDS: INSULIN GLARGINE 100 UNITS/ML SUB-Q SCH (23:00)
[2020-04-22 04:54] LABS: Basophils % (Auto) 0.3 % (0.0-1.8); Eosinophils # (Auto) 0.2 K/mm3 (0.0-0.4); Eosinophils % (Auto) 1.8 % (0.0-4.3); Hemoglobin 8.9 gm/dl (11.8-15.2); Lymphocytes % (Auto) 8.1 % (13.4-35.0); Mean Corpuscular HGB Conc 31 % (32-34); Mean Corpuscular Volume 78 fl (84-94); Monocytes # (Auto) 0.7 K/mm3 (0.0-0.8); Monocytes % (Auto) 5.6 % (0.0-7.3); Platelet Count 100 K/mm3 (140-440); Red Blood Count 3.74 M/mm3 (3.65-5.03)
[2020-04-22 04:55] LABS: Red Cell Distribution Width 21.8 % (13.2-15.2)
[2020-04-22 05:14] LABS: Calcium 8.4 mg/dL (8.4-10.2)
[2020-04-22] MEDS: INSULIN LISPRO 100 UNIT/ML VIAL 3 mL SUB-Q SCH ×4 (07:30→23:11)
[2020-04-22] MEDS: BUDESONIDE 0.5 MG/2 ML NEBU IH SCH ×3 (08:08→19:38)
[2020-04-22] MEDS: ARFORMOTEROL 15 MCG/2 ML NEBU IH SCH ×3 (08:08→19:38)
--- NOTE | 2020-04-22 09:14 | Progress Note ---
Assessment and Plan Chronic systolic heart failure LVEF 15-20% by echo 01/2020 VQ scan reports a low probability for PE. COVID 19 test was negative Paroxysmal Atrial fibrillation vs flutter currently in sinus rhythm on metoprolol for suppression initiated on low dose Eliquis due to patient's low body weight of 64 kg and evidence of chronic anemia. Hx of Ischemic cardiomyopathy noncompliant with outpatient cardiac follow up. Hx of CAD Abdominal pain CT scan of the abdomen suggestive of colitis. Renal insufficiency Recommednations: No new cardiac recommendations Subjective Date of service: 04/22/20 Principal diagnosis: CHF Interval history: Patient denies chest pain or shortness of breath Patient complains of suprapubic pain this morning No arrhythmias on tele recorded overnight Objective Vital Signs Temp Pulse Pulse Pulse Pulse Pulse Resp 04/22/20 08:10 04/22/20 08:08 64 04/22/20 08:02 97.9 F 61 18 04/22/20 05:25 97.6 F 65 20 04/22/20 00:37 97.9 F 66 20 04/21/20 22:11 04/21/20 22:03 83 04/21/20 22:00 61 18 04/21/20 20:21 97.7 F 69 18 04/21/20 17:41 64 04/21/20 14:49 75 04/21/20 12:00 75 04/21/20 10:05 77 04/21/20 10:00 71 77 77 77 18 Resp BP Pulse Ox 04/22/20 08:10 100 04/22/20 08:08 16 04/22/20 08:02 103/65 99 04/22/20 05:25 120/57 93 04/22/20 00:37 104/61 95 04/21/20 22:11 92 04/21/20 22:03 15 04/21/20 22:00 04/21/20 20:21 135/85 100 04/21/20 17:41 130/53 100 04/21/20 14:49 146/55 98 04/21/20 12:00 146/55 04/21/20 10:05 163/74 04/21/20 10:00 - Physical Examination General: No Apparent Distress, Cachectic HEENT: Positive: PERRL Neck: Positive: trachea midline Cardiac: Positive: Reg Rate and Rhythm, Systolic Murmur Lungs: Positive: Normal Exam Neuro: Positive: Weakness Abdomen: Positive: Soft Skin: Positive: Clear Extremities: Absent: edema - Labs and Meds CBC 04/22/20 Range/Units 04:05 WBC 11.9 H (4.5-11.0) K/mm3 RBC 3.74 (3.65-5.03) M/mm3 Hgb 8.9 L (11.8-15.2) gm/dl Hct 29.0 L (35.5-45.6) % Plt Count 100 L (140-440) K/mm3 Lymph # (Auto) 1.0 L (1.2-5.4) K/mm3 [place] # (Auto) 0.7 (0.0-0.8) K/mm3 Eos # (Auto) 0.2 (0.0-0.4) K/mm3 Baso # (Auto) 0.0 (0.0-0.1) K/mm3 Comprehensive Metabolic Panel 04/22/20 Range/Units 04:05 Sodium 148 H (137-145) mmol/L Potassium 4.2 (3.6-5.0) mmol/L Chloride 114.8 H (98-107) mmol/L Carbon Dioxide 23 (22-30) mmol/L BUN 78 H (9-20) mg/dL Creatinine 1.6 H (0.8-1.3) mg/dL Glucose 78 (75-100) mg/dL Calcium 8.4 (8.4-10.2) mg/dL
--- NOTE | 2020-04-22 09:14 | Progress Note ---
Assessment and Plan Assessment and plan: ---Acute respiratory failure Current Visit: Yes Status: Acute Plan to address problem: Slightly improving but still needs oxygen to maintain sats. CT chest x-ray ordered Has no pneumonia and no sepsis. Continue oxygen supplementation COVID-19 test negative --Acute on chronic systolic CHF (congestive heart failure) Current Visit: Yes Status: Acute Plan to address problem: Holding Lasix due to KIRT Will monitor daily weight, inputs and outputs. Monitor renal function closely Cardiology on board --KIRT (acute kidney injury) Current Visit: Yes Status: Acute Plan to address problem: Creatinine stable at 3.1 Discontinued Lasix. Vasomotor nephropathy Nephrology following --Colitis Current Visit: Yes Status: Acute Plan to address problem: Resolved GI recommendations appreciated --Arrhythmias-atrial fibrillation versus nonsustained ventricular tachycardia Current Visit: Yes Status: Acute Plan to address problem: Initially started on amiodarone but discontinued due to elevated LFTs Now on metoprolol every 6 and rate is currently controlled. Started on low-dose apixaban 2.5 mg twice daily Cardiology recommendations appreciated --Diabetes mellitus type 2 in nonobese Current Visit: No Status: Acute Plan to address problem: Lantus and sliding scale insulin. --Hyperkalemia and metabolic acidosis Current Visit: Yes Status: Acute Plan to address problem: Resolved --T12 compression fracture Current Visit: No Status: Likely chronic Plan to address problem: CT abdomen showed acute appearing T12 compression fracture 04/14. MRI thoracic without contrast ordered to further evaluate. 04/15. Patient is agitated and unable to get an MRI. 04/16. Awaiting MRI without contrast thoracic. Plan to use sedatives today. Informed RN. If positive for acute fracture, patient will need to be transferred for neurosurgery evaluation. 04/17. MRI thoracic and lumbar showed acute T12 compression fracture. Discussed case with [place] neurosurgery infrastructure consultant who advised no acute intervention is necessary at this time-advised TLSO brace when patient is sitting or ambulatory. He will need follow-up with Dr. Dalton Jack, Dr. Alan Henson, Dr. Tyson Clark [contact number [phone]] after discharge. ---Elevated LFTs Current Visit: Yes Status: Acute Plan to address problem: Improving US abdomen shows no acute pathology ---Infrarenal aortic aneurysm Current Visit: No Status: Acute Plan to address problem: 3.8 cm in diameter Needs to follow-up with vascular surgery at discharge for monitoring -Anemia and thrombocytopenia Current Visit: No Status: Acute Plan to address problem: Monitor platelets ?HIT - Hold heparin for now Peripheral smear reviewed - target cells, tear drops. Hematology consulted -- DVT prophylaxis Current Visit: No Status: Acute Plan to address problem: Hold heparin for now. Started on anticoagulation per cardiology. HIT antibody sent --Full code status Current Visit: No Status: Acute Disposition-home with hospice as per patient son plan stable 04/11. Patient seen and examined at bedside this morning. Patient is on BiPAP. Patient is eager to go home. Otherwise denies any chest pain or palpitations. Patient CT showed possible compression fracture of T12, it is unknown if this is new. We will get MRI without contrast of the thoracic and lumbar to further evaluate. If patient actually has an acute compression fracture, he will need to have a neurosurgery evaluation so will need to be transferred to another facility for this. Otherwise, patient continue to monitor patient's respiratory status while in the IMCU. Patient reportedly failed a swallow evaluation and will need to have an NG tube placement. Tried to call son on number provided in the chart and left a message. Awaiting callback. Labs reviewed-patient has elevated inflammatory [id number], LDH. COVID-19 test has been ordered. Started patient on steroids. Ordered stat BMP, ABG, D-dimer, proBNP, ferritin, LDH. 04/12. COVID -19 test is negative. His breathing has improved so was placed on nasal cannula. Cardiology adjusted meds today. He failed swallow evaluation yesterday. He requests for food. Will reattempt swallow evaluation. Speech therapy consult. 04/13. Overnight, he developed VT and was started on amiodarone. HR better this AM. Cardiology will review medications. Patient seen and examined at bedside this AM. He requests for food. He failed a repeat speech evaluation and will need barium swallow. May need PEG placement if he fails. NG tube in place. Vitals reviewed 04/14. Heart rate improved. Remains n.p.o. with NG tube feeds. Video swallow evaluation shows mild abnormal study. Speech therapist to see patient. Patient has not been able to have an MRI of the back due to agitation. He had a CT during the admission that showed possible compression fracture of T12 but this has not been fully evaluated due to patient's ongoing conditions. Labs reviewed-renal function is worse. Discontinue Lasix. 04/15. Has been started on a diet and is tolerating. He pulled out his NG tube last night. Okay to leave NG tube for now. Plan to get an MRI performed today with sedative to evaluate T12 fracture. Patient denies any back pain. Renal function slightly improved today after Lasix was discontinued. Continue IV hydration. Nephrology recommendations appreciated 04/16. He feels better today. MRI could not be done yesterday. Hopefully patient can have an MRI done today. Creatinine 3.1 today. Patient will need placement but will need to have evaluation of possible T12 fracture prior to discharge 04/17. MRI thoracic and lumbar showed acute T12 compression fracture. Discussed case with [place] neurosurgery infrastructure consultant who advised no acute intervention is necessary at this time-advised TLSO brace when patient is sitting or ambulatory. He will need follow-up with Dr. Dalton Jack, Dr. Alan Henson, Dr. Tyson Clark [contact number [phone]] after discharge. 04/18. Await Nephrology recs for d/c plans 04/19/2020. Patient reportedly with choking/coughing with swallowing. We will change to n.p.o. status right now. Speech reevaluation. Check chest x-ray to rule out aspiration pneumonia. Await nephrology recommendations for discharge. Creatinine slowly improving. CT of abdomen negative for hydronephrosis. BUN increasing. Therefore, we will check Hemoccult of stool to rule out GI bleed. Hemoglobin has been stable. 04/20/2020. Repeat chest x-ray reveals worsening bibasilar opacities. Pulmonary consulted. Doppler of left upper extremity for swelling. PT evaluation recommends subacute rehab 04/21/2020. Await pulmonary consultation for worsening bibasilar opacities. Doppler of left upper extremity pending. PT evaluation recommends subacute rehab. Creatinine has improved to near baseline of 1.8. Nephrology following 04/22/2020. Pulmonary sees no need for antibiotics or further evaluation of bibasilar opacities with CT scan. Continue current COPD treatment. Beta blockers increase for A. fib per cardiology. Await Doppler left upper extremity. PT evaluation recommends subacute rehab but case management reports patient's son Haseeb [phone]. Haseeb wants patient to return home with [facility]. History Interval history: Patient with left upper extremity swelling. Hospitalist Physical - Constitutional Vitals: Temp Pulse Resp BP Pulse Ox 97.9 F 64 16 103/65 100 04/22/20 08:02 04/22/20 08:08 04/22/20 08:08 04/22/20 08:02 04/22/20 08:10 General appearance: Present: no acute distress - EENT Eyes: Present: PERRL, EOM intact ENT: hearing intact, clear oral mucosa, dentition normal - Neck Neck: Present: supple, normal ROM - Respiratory Respiratory effort: normal Respiratory: bilateral: CTA - Cardiovascular Rhythm: regular Heart Sounds: Present: S1 & S2. Absent: gallop, rub - Extremities Extremities: no ischemia, No edema, Full ROM - Abdominal General gastrointestinal: soft, non-tender, non-distended, normal bowel sounds - Integumentary Integumentary: Present: clear, warm, dry - Neurologic Neurologic: CNII-XII intact, moves all extremities HEART Score - HEART Score Troponin: Troponin T 0.081 ng/mL (0.00-0.029) H 04/10/20 20:04 Results - Labs CBC & Chem 7: 04/22/20 04:05 04/22/20 04:05 Labs: Laboratory Last Values WBC 11.9 K/mm3 (4.5-11.0) H 04/22/20 04:05 RBC 3.74 M/mm3 (3.65-5.03) 04/22/20 04:05 Hgb 8.9 gm/dl (11.8-15.2) L 04/22/20 04:05 Hct 29.0 % (35.5-45.6) L 04/22/20 04:05 MCV 78 fl (84-94) L 04/22/20 04:05 MCH 24 pg (28-32) L 04/22/20 04:05 MCHC 31 % (32-34) L 04/22/20 04:05 RDW 21.8 % (13.2-15.2) H 04/22/20 04:05 Plt Count 100 K/mm3 (140-440) L 04/22/20 04:05 Lymph % (Auto) 8.1 % (13.4-35.0) L 04/22/20 04:05 [place] % (Auto) 5.6 % (0.0-7.3) 04/22/20 04:05 Eos % (Auto) 1.8 % (0.0-4.3) 04/22/20 04:05 Baso % (Auto) 0.3 % (0.0-1.8) 04/22/20 04:05 Lymph # (Auto) 1.0 K/mm3 (1.2-5.4) L 04/22/20 04:05 [place] # (Auto) 0.7 K/mm3 (0.0-0.8) 04/22/20 04:05 Eos # (Auto) 0.2 K/mm3 (0.0-0.4) 04/22/20 04:05 Baso # (Auto) 0.0 K/mm3 (0.0-0.1) 04/22/20 04:05 Add Manual Diff Complete 04/20/20 06:58 Total Counted 100 04/20/20 06:58 Seg Neutrophils % 84.2 % (40.0-70.0) H 04/22/20 04:05 Seg Neuts % (Manual) 91.0 % (40.0-70.0) H 04/20/20 06:58 Band Neutrophils % 0 % 04/20/20 06:58 Lymphocytes % (Manual) 2.0 % (13.4-35.0) L 04/20/20 06:58 Reactive Lymphs % (Man) 0 % 04/20/20 06:58 Monocytes % (Manual) 7.0 % (0.0-7.3) 04/20/20 06:58 Eosinophils % (Manual) 0 % (0.0-4.3) 04/20/20 06:58 Basophils % (Manual) 0 % (0.0-1.8) 04/20/20 06:58 Metamyelocytes % 0 % 04/20/20 06:58 Myelocytes % 0 % 04/20/20 06:58 Promyelocytes % 0 % 04/20/20 06:58 Blast Cells % 0 % 04/20/20 06:58 Nucleated RBC % Not Reportable 04/20/20 06:58 Seg Neutrophils # 10.0 K/mm3 (1.8-7.7) H 04/22/20 04:05 Seg Neutrophils # Man 8.1 K/mm3 (1.8-7.7) H 04/20/20 06:58 Band Neutrophils # 0.0 K/mm3 04/20/20 06:58 Lymphocytes # (Manual) 0.2 K/mm3 (1.2-5.4) L 04/20/20 06:58 Abs React Lymphs (Man) 0.0 K/mm3 04/20/20 06:58 Monocytes # (Manual) 0.6 K/mm3 (0.0-0.8) 04/20/20 06:58 Eosinophils # (Manual) 0.0 K/mm3 (0.0-0.4) 04/20/20 06:58 Basophils # (Manual) 0.0 K/mm3 (0.0-0.1) 04/20/20 06:58 Metamyelocytes # 0.0 K/mm3 04/20/20 06:58 Myelocytes # 0.0 K/mm3 04/20/20 06:58 Promyelocytes # 0.0 K/mm3 04/20/20 06:58 Blast Cells # 0.0 K/mm3 04/20/20 06:58 WBC Morphology Not Reportable 04/20/20 06:58 Hypersegmented Neuts Not Reportable 04/20/20 06:58 Hyposegmented Neuts Not Reportable 04/20/20 06:58 Hypogranular Neuts Not Reportable 04/20/20 06:58 Smudge Cells Not Reportable 04/20/20 06:58 Toxic Granulation Not Reportable 04/20/20 06:58 Toxic Vacuolation Not Reportable 04/20/20 06:58 Dohle Bodies Not Reportable 04/20/20 06:58 Pelger-Huet Anomaly Not Reportable 04/20/20 06:58 Barby Rods Not Reportable 04/20/20 06:58 Platelet Estimate Consistent w auto 04/20/20 06:58 Clumped Platelets Not Reportable 04/20/20 06:58 Plt Clumps, EDTA Not Reportable 04/20/20 06:58 Large Platelets Not Reportable 04/20/20 06:58 Giant Platelets Not Reportable 04/20/20 06:58 Platelet Satelliting Not Reportable 04/20/20 06:58 Plt Morphology Comment Not Reportable 04/20/20 06:58 RBC Morphology Not Reportable 04/20/20 06:58 Dimorphic RBCs Not Reportable 04/20/20 06:58 Polychromasia Not Reportable 04/20/20 06:58 Hypochromasia 2+ 04/20/20 06:58 Poikilocytosis Not Reportable 04/20/20 06:58 Anisocytosis 1+ 04/20/20 06:58 Microcytosis Not Reportable 04/20/20 06:58 Macrocytosis Not Reportable 04/20/20 06:58 Spherocytes Not Reportable 04/20/20 06:58 Pappenheimer Bodies Not Reportable 04/20/20 06:58 Sickle Cells Not Reportable 04/20/20 06:58 Target Cells Not Reportable 04/20/20 06:58 Tear Drop Cells Not Reportable 04/20/20 06:58 Ovalocytes Not Reportable 04/20/20 06:58 Helmet Cells Not Reportable 04/20/20 06:58 [place] Bodies Not Reportable 04/20/20 06:58 [place] Rings Not Reportable 04/20/20 06:58 Marcia Cells Not Reportable 04/20/20 06:58 Bite Cells Not Reportable 04/20/20 06:58 Crenated Cell Not Reportable 04/20/20 06:58 Elliptocytes Not Reportable 04/20/20 06:58 Acanthocytes (Spur) Not Reportable 04/20/20 06:58 Rouleaux Not Reportable 04/20/20 06:58 Hemoglobin C Crystals Not Reportable 04/20/20 06:58 Schistocytes Not Reportable 04/20/20 06:58 Malaria parasites Not Reportable 04/20/20 06:58 Willie Bodies Not Reportable 04/20/20 06:58 Hem Pathologist Commnt No 04/20/20 06:58 PT 15.5 Sec. (12.2-14.9) H 04/12/20 06:22 INR 1.21 (0.87-1.13) H 04/12/20 06:22 D-Dimer 2029.09 ng/mlDDU (0-234) H 04/11/20 15:11 Heparin Anti-Xa Level 0.35 U.I./ml (0.3-0.7) 04/13/20 05:06 Heparin Anti-Xa, Unfract Negative (Negative) 04/17/20 22:45 ABG pH 7.505 pH Units (7.350-7.450) H 04/17/20 10:30 ABG pCO2 25.2 mm Hg 04/17/20 10:30 ABG pO2 157.9 mm Hg (80.0-90.0) H 04/17/20 10:30 ABG HCO3 19.4 mmol/L (20.0-26.0) L 04/17/20 10:30 ABG O2 Saturation 99.1 % (95.0-99.0) H 04/17/20 10:30 ABG O2 Content 12.7 (0.0-44) 04/17/20 10:30 ABG Base Excess -2.8 mmol/L (-2.0-3.0) L 04/17/20 10:30 ABG Hemoglobin 9.1 gm/dl (14.0-18.0) L 04/17/20 10:30 ABG Carboxyhemoglobin 1.6 % (0.0-5.0) 04/17/20 10:30 ABG Methemoglobin 0.4 % (0.0-1.5) 04/17/20 10:30 Oxyhemoglobin 97.0 % (95.0-99.0) 04/17/20 10:30 FiO2 35 % 04/17/20 10:30 Sodium 148 mmol/L (137-145) H 04/22/20 04:05 Potassium 4.2 mmol/L (3.6-5.0) 04/22/20 04:05 Chloride 114.8 mmol/L (98-107) H 04/22/20 04:05 Carbon Dioxide 23 mmol/L (22-30) 04/22/20 04:05 Anion Gap 14 mmol/L 04/22/20 04:05 BUN 78 mg/dL (9-20) H 04/22/20 04:05 Creatinine 1.6 mg/dL (0.8-1.3) H 04/22/20 04:05 Estimated GFR 43 ml/min 04/22/20 04:05 BUN/Creatinine Ratio 49 % 04/22/20 04:05 Glucose 78 mg/dL (75-100) 04/22/20 04:05 POC Glucose 70 mg/dL (70-105) 04/22/20 07:39 Lactic Acid 3.00 mmol/L (0.7-2.0) H* 04/12/20 06:22 Calcium 8.4 mg/dL (8.4-10.2) 04/22/20 04:05 Phosphorus 5.60 mg/dL (2.5-4.5) H 04/10/20 22:50 Magnesium 2.40 mg/dL (1.7-2.3) H 04/10/20 22:50 Ferritin 135.1 ng/mL (30.0-300.0) 04/11/20 15:11 Total Bilirubin 1.20 mg/dL (0.1-1.2) 04/19/20 04:43 Direct Bilirubin 0.6 mg/dL (0-0.2) H 04/15/20 04:56 Indirect Bilirubin 0.3 mg/dL 04/15/20 04:56 AST 24 units/L (5-40) 04/19/20 04:43 ALT 126 units/L (7-56) H 04/19/20 04:43 Alkaline Phosphatase 140 units/L (35-129) H 04/19/20 04:43 Lactate Dehydrogenase 664 units/L (91-180) H 04/10/20 20:51 Troponin T 0.081 ng/mL (0.00-0.029) H 04/10/20 20:04 C-Reactive Protein 5.60 mg/dL (0.00-1.30) H 04/10/20 20:51 NT-Pro-B Natriuret Pep > 49680 pg/mL (0-900) H 04/11/20 15:11 Total Protein 5.8 g/dL (6.3-8.2) L 04/19/20 04:43 Albumin 3.2 g/dL (3.9-5) L 04/19/20 04:43 Albumin/Globulin Ratio 1.2 % 04/19/20 04:43 Triglycerides 113 mg/dL (2-149) 04/10/20 20:04 Cholesterol 178 mg/dL (50-199) 04/10/20 20:04 LDL Cholesterol Direct 123 mg/dL (50-130) 04/10/20 20:04 HDL Cholesterol 41 mg/dL (40-59) 04/10/20 20:04 Cholesterol/HDL Ratio 4.34 % 04/10/20 20:04 Procalcitonin 2.47 ng/mL (<0.15) 04/11/20 15:11 TSH 3.640 mlU/mL (0.270-4.200) 04/13/20 10:06 Urine Color Yellow (Yellow) 04/11/20 Unknown Urine Turbidity Clear (Clear) 04/11/20 Unknown Urine pH 5.0 (5.0-7.0) 04/11/20 Unknown Ur Specific [place] 1.009 (1.003-1.030) 04/11/20 Unknown Urine Protein <15 mg/dl mg/dL (Negative) 04/11/20 Unknown Urine Glucose (UA) Neg mg/dL (Negative) 04/11/20 Unknown Urine Ketones Neg mg/dL (Negative) 04/11/20 Unknown Urine Blood Neg (Negative) 04/11/20 Unknown Urine Nitrite Neg (Negative) 04/11/20 Unknown Urine Bilirubin Neg (Negative) 04/11/20 Unknown Urine Urobilinogen < 2.0 mg/dL (<2.0) 04/11/20 Unknown Ur Leukocyte Esterase Neg (Negative) 04/11/20 Unknown Urine WBC (Auto) 1.0 /HPF (0.0-6.0) 04/11/20 Unknown Urine RBC (Auto) 2.0 /HPF (0.0-6.0) 04/11/20 Unknown U Epithel Cells (Auto) < 1.0 /HPF (0-13.0) 04/11/20 Unknown Hyaline Casts 3 /LPF 04/11/20 Unknown Urine Mucus Few /HPF 04/11/20 Unknown Urine Eosinophils None seen (None Seen) 04/11/20 Unknown Urine Creatinine 35.3 mg/dL (0.1-20.0) H 04/11/20 Unknown Urine Sodium 92 mmol/L 04/11/20 Unknown Heparin-induced Plt Ab Negative (Negative) 04/17/20 22:45 UF Heparin High Dose 0 % Release 04/17/20 22:45 CHERYL UFH Low Dose 0.1 0 % Release 04/17/20 22:45 CHERYL UFH Low Dose 0.5 0 % Release 04/17/20 22:45 Coronavirus (PCR) Negative (Negative) 04/11/20 Unknown Hepatitis A IgM Ab Non-reactive (NonReactive) 04/12/20 20:23 Hep Bs Antigen Non-reactive (Negative) 04/12/20 20:23 Hep B Core IgM Ab Non-reactive (NonReactive) 04/12/20 20:23 Hepatitis C Antibody Non-reactive (NonReactive) 04/12/20 20:23 Gay/IV: Voiding Method Condom Catheter IV Catheter Type [Right Upper INT / Saline Lock arm] IV Catheter Type [Left Wrist] Peripheral IV IV Catheter Type [Right INT / Saline Lock Forearm] IV Catheter Type [Right Wrist] INT / Saline Lock Active Medications - Current Medications Current Medications: Generic Name Dose Route Start Last Admin Trade Name Freq PRN Reason Stop Dose Admin Acetaminophen 650 mg 04/11/20 01:26 Tylenol PO Q6H PRN Pain MILD(1-3)/Fever >100.5/MANCILLA Lipase/Protease/Amylase 1 each 04/11/20 14:22 Pancremiley Saenz 10,500 Unit FEEDTUBE PRN PRN For Clogged Feeding Tube Apixaban 2.5 mg 04/17/20 12:00 04/21/20 22:59 Eliquis PO 2.5 mg Q12HR PRAVIN Administration Protocol Arformoterol Tartrate 15 mcg 04/20/20 20:00 04/22/20 08:08 Brovana Nebu IH 15 mcg Q12HRT PRAVIN Administration Budesonide 0.5 mg 04/20/20 20:00 04/22/20 08:08 Pulmicort IH 0.5 mg Q12HRT PRAVIN Administration Insulin Glargine 10 units 04/16/20 22:00 04/21/20 23:00 Lantus SUB-Q 10 units QHS PRAVIN Administration Insulin Human Lispro 0 unit 04/16/20 16:30 04/21/20 23:00 Humalog SUB-Q Not Given ACHS PRAVIN Protocol Magnesium Hydroxide 30 ml 04/11/20 01:26 Milk Of Magnesia PO Q4H PRN Constipation Metoprolol Tartrate 100 mg 04/21/20 12:00 04/21/20 22:15 Metoprolol PO 100 mg BID PRAVIN Administration Simple Syrup 15 ml 04/11/20 14:22 Simple Syrup FEEDTUBE PRN PRN Hypoglycemia Simple Syrup 30 ml 04/11/20 14:22 Simple Syrup FEEDTUBE PRN PRN Hypoglycemia Sodium Bicarbonate 325 mg 04/11/20 14:22 Sodium Bicarbonate FEEDTUBE PRN PRN For Clogged Feeding Tube Sodium Chloride 10 ml 04/11/20 10:00 04/22/20 00:15 Sodium Chloride Flush Syringe 10 Ml IV Not Given BID PRVAIN Sodium Chloride 10 ml 04/11/20 01:26 Sodium Chloride Flush Syringe 10 Ml IV PRN PRN LINE FLUSH Nutrition/Malnutrition Assess - Dietary Evaluation Nutrition/Malnutrition Findings: Nutrition Notes Start: 04/11/20 13:41 Freq: Status: Active Protocol: Document 04/21/20 10:20 LM (Rec: 04/21/20 10:25 LM [id number]) Nutrition Notes Initial or Follow up Reassessment Current Diagnosis Acute Kidney Injury,COPD, Coronary Artery Disease, Diabetes,Hypertension,Heart Failure Other Pertinent Diagnosis CT, Crohn's disease, seizure, colitis Current Diet Pureed w/ nectar liq Labs/Tests BUN 85 Cr 1.8 BG 213 Na 148 Pertinent Medications Reviewed Height 5 ft 7 in Weight 67.8 kg [place] Body Weight (kg) 67.27 BMI 23.3 Weight change and time frame Wt change noted. Pt has edema Subjective/Other Information SHOE SALESPERSON recommends pureed diet with nectar liq. Pt's tray was untouched this AM. Switched Glucerna to Nepro. Percent of energy/protein needs met: 0%/0% Burn Absent Trauma Absent Difficulty In Swallowing,Chewing Current % PO Negligible Minimum of two criteria No #1 Nutrition Diagnosis Inadequate oral intake Diagnosis Progress(for reassessment Continues documentation) Is patient on ventilator? No Is Patient Ambulatory and/or Out of Bed No REE-([facility]-confined to bed) 1210.148 Calculation Used for Recommendations [facility] Additional Notes Protein Needs: 52-78 g (0.8-1. 2 g/kg) Fluid Needs: 1 mL/kcal Nutrition Intervention Change Diet Order: Pureed or restart Enteral nutritionof pt continues to eat less than 50% Add Supplement/Snack (indicate name/kcal Nepro daily /protein ) Provides kCal: 425 Provides Protein (gm) 19 Goal #1 Meet at least 75% of energy an protein needs Anticipated Discharge Needs: Unable to determine at this time Follow-Up By: 04/24/20 Additional Comments F/U for intakes
[2020-04-22] MEDS: METOPROLOL TARTRATE 100 MG TAB PO SCH ×2 (09:50→23:11)
[2020-04-22] MEDS: APIXABAN 2.5 MG TAB PO SCH ×2 (11:08→23:10)
--- NOTE | 2020-04-22 12:39 | Progress Note ---
Assessment and Plan 1. Acute kidney injury: Vasomotor KIRT superimposed on CKD. CT abdomen negative for hydro. Monitor renal function. Creatinine level slowly improving. Renal prognosis is guarded. Avoid nephrotoxic agents. Meds dosage based on GFR. 2. FEN: Hypernatremia, encourage PO fluids. Hypokalemia, K level is better, monitor. Anion-gap metabolic acidosis, improved, monitor. Monitor lytes and volume status. 3. Acute hypoxic respiratory failure: Was on BIPAP. Possibly secondary to the CHF and underlying pneumonia. COVID-19 test negative. 4. Chronic CHF: Monitor daily weight, intake and outputs. Followed by Cards. 5. Colitis: Monitor. Seen by GI. 6. Anemia, POA: Monitor. 7. Elevated Transaminases: Monitor. 8. DM type 2. 9. HTN: Monitor BP. Subjective: Patient was seen and examined at the bedside. Examination: General appearance: well-developed, appears stated age, on restrains HEENT: ATNC, pupils equal Neck: trachea midline Respiratory: ctab Heart: regular, S1S2, no murmur Gastrointestinal: soft, normoactive bowel sounds, not tender Integumentary: no rash, warm and dry Neurologic: sleeping, arousable Ext: no edema Subjective Date of service: 04/22/20 Principal diagnosis: CHF Objective - Vital Signs Vital signs: Vital Signs - 12hr 04/22/20 04/22/20 04/22/20 05:25 08:02 08:08 Temperature 97.6 F 97.9 F Pulse Rate 65 61 Pulse Rate [ 64 Posterior Bilateral Throughout] Respiratory 20 18 Rate Respiratory 16 Rate [Posterior Bilateral Throughout] Blood Pressure 120/57 103/65 Blood Pressure [Left] O2 Sat by Pulse 93 99 Oximetry 04/22/20 04/22/20 08:10 12:16 Temperature 97.9 F Pulse Rate 71 Pulse Rate [ Posterior Bilateral Throughout] Respiratory 18 Rate Respiratory Rate [Posterior Bilateral Throughout] Blood Pressure Blood Pressure 118/60 [Left] O2 Sat by Pulse 100 90 Oximetry - Lab 04/22/20 04:05 04/22/20 04:05 Most recent lab results ABG pH 7.505 pH Units (7.350-7.450) H 04/17/20 10:30 ABG pCO2 25.2 mm Hg 04/17/20 10:30 ABG pO2 157.9 mm Hg (80.0-90.0) H 04/17/20 10:30 ABG HCO3 19.4 mmol/L (20.0-26.0) L 04/17/20 10:30 ABG O2 Saturation 99.1 % (95.0-99.0) H 04/17/20 10:30 Calcium 8.4 mg/dL (8.4-10.2) 04/22/20 04:05 Phosphorus 5.60 mg/dL (2.5-4.5) H 04/10/20 22:50 Magnesium 2.40 mg/dL (1.7-2.3) H 04/10/20 22:50 Urine Creatinine 35.3 mg/dL (0.1-20.0) H 04/11/20 Unknown Urine Sodium 92 mmol/L 04/11/20 Unknown Medications & Allergies - Medications Allergies/Adverse Reactions: Allergies Sulfa (Sulfonamide Antibiotics) Allergy (Verified 07/30/18 17:44) Rash Home Medications: Home Medications Medication Instructions Recorded Confirmed Last Taken Type Gabapentin 300 mg PO BID 09/19/16 04/21/20 09/18/16 History 300 mg Metformin HCl [metFORMIN ER 500 mg PO BIDWM 03/28/17 04/21/20 Unknown History Gastric] AtorvaSTATin 10 mg PO QHS #30 tablet 12/21/17 04/21/20 Unknown Rx Ranolazine ER [Ranexa ER] 500 mg PO BID #60 tablet 12/21/17 04/21/20 Unknown Rx Aspirin 325 mg PO QDAY #30 tablet 01/12/18 04/21/20 04/21/20 Rx Diphenoxylate/Atropine [Lomotil] 1 tab PO Q8H PRN 01/15/18 04/21/20 Unknown History Insulin Lispro [HumaLOG VIAL] See Protocol SQ ACHS 01/15/18 04/21/20 04/21/20 18:46 History Promethazine [Phenergan] 25 mg PO Q4H PRN 01/15/18 04/21/20 Unknown History Albuterol Mdi (or & Nicu Only) 2 puff IH Q4HR PRN #1 inhalation 12/21/18 04/21/20 04/21/20 18:46 Rx [ProAir HFA Inhaler] Furosemide [Lasix TAB] 20 mg PO QDAY #30 tablet 02/03/20 04/21/20 Unknown Rx Metoprolol Xl [Metoprolol 25 mg PO DAILY #60 tablet 02/03/20 04/21/20 04/21/20 18:45 Rx SUCCINATE ER TAB] levETIRAcetam [Keppra TAB] 500 mg PO BID #120 tablet 02/03/20 04/21/20 Unknown Rx levoFLOXacin [Levaquin TAB] 500 mg PO QDAY #5 tablet 02/03/20 04/21/20 Unknown Rx Active Medications: Generic Name Dose Route Start Last Admin Trade Name Freq PRN Reason Stop Dose Admin Acetaminophen 650 mg 04/11/20 01:26 Tylenol PO Q6H PRN Pain MILD(1-3)/Fever >100.5/MANCILLA Lipase/Protease/Amylase 1 each 04/11/20 14:22 Pancreazaddison Saenz 10,500 Unit FEEDTUBE PRN PRN For Clogged Feeding Tube Apixaban 2.5 mg 04/17/20 12:00 04/22/20 11:08 Eliquis PO 2.5 mg Q12HR PRAVIN Administration Protocol Arformoterol Tartrate 15 mcg 04/20/20 20:00 04/22/20 08:08 Brovana Nebu IH 15 mcg Q12HRT PRAVIN Administration Budesonide 0.5 mg 04/20/20 20:00 04/22/20 08:08 Pulmicort IH 0.5 mg Q12HRT PRAVIN Administration Insulin Glargine 10 units 04/16/20 22:00 04/21/20 23:00 Lantus SUB-Q 10 units QHS PRAVIN Administration Insulin Human Lispro 0 unit 04/16/20 16:30 04/22/20 07:30 Humalog SUB-Q Not Given ACHS PRAVIN Protocol Magnesium Hydroxide 30 ml 04/11/20 01:26 Milk Of Magnesia PO Q4H PRN Constipation Metoprolol Tartrate 100 mg 04/21/20 12:00 04/21/20 22:15 Metoprolol PO 100 mg BID PRAVIN Administration Simple Syrup 15 ml 04/11/20 14:22 Simple Syrup FEEDTUBE PRN PRN Hypoglycemia Simple Syrup 30 ml 04/11/20 14:22 Simple Syrup FEEDTUBE PRN PRN Hypoglycemia Sodium Bicarbonate 325 mg 04/11/20 14:22 Sodium Bicarbonate FEEDTUBE PRN PRN For Clogged Feeding Tube Sodium Chloride 10 ml 04/11/20 10:00 04/22/20 11:08 Sodium Chloride Flush Syringe 10 Ml IV 10 ml BID PRAVIN Administration Sodium Chloride 10 ml 04/11/20 01:26 Sodium Chloride Flush Syringe 10 Ml IV PRN PRN LINE FLUSH
--- NOTE | 2020-04-22 14:07 | Progress Note ---
Assessment and Plan 75 y/o male with known systolic heart failure, admitted with shortness of breath and abdominal pain 10 days ago, had nonsustained V-tach on arrival but never lost pulse, now with abnormal CXR and chronic respiratory failure. 1. Reviewed multiple imaging from this patient over several hospital stays. His most recent films are definitely improved compared to arrival and are better or close to the same as some of the images on past admits when not in fluid overload. It appears the left basilar opacity may be a small amount of pleural effusion. Clinically the patient appears to be stable and has not had any increase in his O2 requirement and has good sats. I do not currently see a need for CT of chest nor do I see a need for empiric abx therapy. Would continue current COPD regimen, encourage smoking cessation and consider Incentive spirometry therapy 10-14x per hour while awake. Call if any questions or concerns. Subjective Date of service: 04/22/20 Principal diagnosis: CHF Interval history: Voices no symptoms. Somewhat drowsy but arousable. Appears to be slightly lethargic. Objective Vital Signs - 12hr 04/22/20 04/22/20 04/22/20 05:25 08:02 08:08 Temperature 97.6 F 97.9 F Pulse Rate 65 61 Pulse Rate [ 64 Posterior Bilateral Throughout] Respiratory 20 18 Rate Respiratory 16 Rate [Posterior Bilateral Throughout] Blood Pressure 120/57 103/65 Blood Pressure [Left] O2 Sat by Pulse 93 99 Oximetry 04/22/20 04/22/20 08:10 12:16 Temperature 97.9 F Pulse Rate 71 Pulse Rate [ Posterior Bilateral Throughout] Respiratory 18 Rate Respiratory Rate [Posterior Bilateral Throughout] Blood Pressure Blood Pressure 118/60 [Left] O2 Sat by Pulse 100 90 Oximetry Constitutional: no acute distress, alert Eyes: non-icteric Neck: supple Ascultation: Bilateral: diminished breath sounds Percussion: Bilateral: not dull Cardiovascular: irregular rhythm CBC and BMP: 04/22/20 04:05 04/22/20 04:05 ABG, PT/INR, D-dimer: ABG ABG pH 7.505 pH Units (7.350-7.450) H 04/17/20 10:30 ABG pCO2 25.2 mm Hg 04/17/20 10:30 ABG pO2 157.9 mm Hg (80.0-90.0) H 04/17/20 10:30 ABG O2 Saturation 99.1 % (95.0-99.0) H 04/17/20 10:30 PT/INR, D-dimer PT 15.5 Sec. (12.2-14.9) H 04/12/20 06:22 INR 1.21 (0.87-1.13) H 04/12/20 06:22 D-Dimer 2029.09 ng/mlDDU (0-234) H 04/11/20 15:11 Abnormal lab findings: Abnormal Labs 04/10/20 04/10/20 04/10/20 20:04 20:04 20:04 WBC RBC Hgb 9.3 L Hct 29.9 L MCV 80 L MCH 25 L MCHC 31 L RDW 21.7 H Plt Count Lymph % (Auto) 10.9 L Lymph # (Auto) 0.8 L Seg Neutrophils % 81.5 H Seg Neuts % (Manual) Lymphocytes % (Manual) Nucleated RBC % Seg Neutrophils # Seg Neutrophils # Man Lymphocytes # (Manual) PT INR D-Dimer Heparin Anti-Xa Level ABG pH ABG pO2 ABG HCO3 ABG O2 Saturation ABG Base Excess ABG Hemoglobin Sodium 133 L Potassium 5.9 H Chloride Carbon Dioxide 12 L BUN 25 H Creatinine 1.7 H Glucose 119 H POC Glucose Lactic Acid 8.80 H* Calcium Phosphorus Magnesium Total Bilirubin 1.40 H Direct Bilirubin AST 144 H ALT 83 H Alkaline Phosphatase 212 H Lactate Dehydrogenase Troponin T 0.081 H C-Reactive Protein NT-Pro-B Natriuret Pep Total Protein Albumin 3.5 L Urine Creatinine 04/10/20 04/10/20 04/10/20 20:35 20:51 20:51 WBC RBC Hgb Hct MCV MCH MCHC RDW Plt Count Lymph % (Auto) Lymph # (Auto) Seg Neutrophils % Seg Neuts % (Manual) Lymphocytes % (Manual) Nucleated RBC % Seg Neutrophils # Seg Neutrophils # Man Lymphocytes # (Manual) PT INR D-Dimer 1881.28 H Heparin Anti-Xa Level ABG pH 7.320 L ABG pO2 240.7 H ABG HCO3 11.8 L ABG O2 Saturation 99.4 H ABG Base Excess -12.8 L ABG Hemoglobin 9.0 L Sodium Potassium Chloride Carbon Dioxide BUN Creatinine Glucose 116 H POC Glucose Lactic Acid Calcium Phosphorus Magnesium Total Bilirubin Direct Bilirubin AST ALT Alkaline Phosphatase Lactate Dehydrogenase 664 H Troponin T C-Reactive Protein 5.60 H NT-Pro-B Natriuret Pep Total Protein Albumin Urine Creatinine 04/10/20 04/10/20 04/11/20 20:51 22:50 00:36 WBC RBC Hgb Hct MCV MCH MCHC RDW Plt Count Lymph % (Auto) Lymph # (Auto) Seg Neutrophils % Seg Neuts % (Manual) Lymphocytes % (Manual) Nucleated RBC % Seg Neutrophils # Seg Neutrophils # Man Lymphocytes # (Manual) PT INR D-Dimer Heparin Anti-Xa Level ABG pH ABG pO2 ABG HCO3 ABG O2 Saturation ABG Base Excess ABG Hemoglobin Sodium 132 L Potassium 6.0 H Chloride Carbon Dioxide 17 L BUN 26 H Creatinine 1.7 H Glucose 115 H POC Glucose 237 H Lactic Acid Calcium Phosphorus 5.60 H Magnesium 2.40 H Total Bilirubin 1.40 H Direct Bilirubin AST 286 H ALT 161 H Alkaline Phosphatase 207 H Lactate Dehydrogenase Troponin T C-Reactive Protein NT-Pro-B Natriuret Pep Total Protein Albumin 3.6 L Urine Creatinine 04/11/20 04/11/20 04/11/20 03:10 05:32 07:37 WBC RBC Hgb Hct MCV MCH MCHC RDW Plt Count Lymph % (Auto) Lymph # (Auto) Seg Neutrophils % Seg Neuts % (Manual) Lymphocytes % (Manual) Nucleated RBC % Seg Neutrophils # Seg Neutrophils # Man Lymphocytes # (Manual) PT INR D-Dimer Heparin Anti-Xa Level ABG pH ABG pO2 ABG HCO3 ABG O2 Saturation ABG Base Excess ABG Hemoglobin Sodium Potassium 6.2 H* Chloride Carbon Dioxide BUN Creatinine Glucose POC Glucose 181 H 182 H Lactic Acid Calcium Phosphorus Magnesium Total Bilirubin Direct Bilirubin AST ALT Alkaline Phosphatase Lactate Dehydrogenase Troponin T C-Reactive Protein NT-Pro-B Natriuret Pep Total Protein Albumin Urine Creatinine 04/11/20 04/11/20 04/11/20 07:37 07:45 12:04 WBC RBC Hgb Hct MCV MCH MCHC RDW Plt Count Lymph % (Auto) Lymph # (Auto) Seg Neutrophils % Seg Neuts % (Manual) Lymphocytes % (Manual) Nucleated RBC % Seg Neutrophils # Seg Neutrophils # Man Lymphocytes # (Manual) PT INR D-Dimer Heparin Anti-Xa Level ABG pH ABG pO2 ABG HCO3 ABG O2 Saturation ABG Base Excess ABG Hemoglobin Sodium 133 L Potassium 6.1 H* Chloride Carbon Dioxide 10 L D BUN 26 H Creatinine 1.7 H Glucose POC Glucose 212 H 196 H Lactic Acid Calcium Phosphorus Magnesium Total Bilirubin Direct Bilirubin AST ALT Alkaline Phosphatase Lactate Dehydrogenase Troponin T C-Reactive Protein NT-Pro-B Natriuret Pep Total Protein Albumin Urine Creatinine 04/11/20 04/11/20 04/11/20 15:11 15:11 15:11 WBC RBC Hgb Hct MCV MCH MCHC RDW Plt Count Lymph % (Auto) Lymph # (Auto) Seg Neutrophils % Seg Neuts % (Manual) Lymphocytes % (Manual) Nucleated RBC % Seg Neutrophils # Seg Neutrophils # Man Lymphocytes # (Manual) PT INR D-Dimer 2029.09 H Heparin Anti-Xa Level ABG pH ABG pO2 ABG HCO3 ABG O2 Saturation ABG Base Excess ABG Hemoglobin Sodium Potassium Chloride Carbon Dioxide BUN Creatinine Glucose POC Glucose Lactic Acid 2.30 H* Calcium Phosphorus Magnesium Total Bilirubin Direct Bilirubin AST ALT Alkaline Phosphatase Lactate Dehydrogenase Troponin T C-Reactive Protein NT-Pro-B Natriuret Pep > 28597 H Total Protein Albumin Urine Creatinine 04/11/20 04/11/20 04/11/20 15:11 16:07 16:25 WBC RBC Hgb Hct MCV MCH MCHC RDW Plt Count Lymph % (Auto) Lymph # (Auto) Seg Neutrophils % Seg Neuts % (Manual) Lymphocytes % (Manual) Nucleated RBC % Seg Neutrophils # Seg Neutrophils # Man Lymphocytes # (Manual) PT INR D-Dimer Heparin Anti-Xa Level ABG pH ABG pO2 110.8 H ABG HCO3 ABG O2 Saturation ABG Base Excess -3.4 L ABG Hemoglobin 8.6 L Sodium 131 L Potassium 5.3 H Chloride Carbon Dioxide BUN 33 H Creatinine 1.9 H Glucose 268 H POC Glucose 227 H Lactic Acid Calcium 8.3 L Phosphorus Magnesium Total Bilirubin Direct Bilirubin AST 575 H ALT 414 H Alkaline Phosphatase 153 H Lactate Dehydrogenase Troponin T C-Reactive Protein NT-Pro-B Natriuret Pep Total Protein 5.6 L Albumin 2.9 L Urine Creatinine 04/11/20 04/12/20 04/12/20 Unknown 05:57 06:22 WBC RBC Hgb Hct MCV MCH MCHC RDW Plt Count Lymph % (Auto) Lymph # (Auto) Seg Neutrophils % Seg Neuts % (Manual) Lymphocytes % (Manual) Nucleated RBC % Seg Neutrophils # Seg Neutrophils # Man Lymphocytes # (Manual) PT INR D-Dimer Heparin Anti-Xa Level ABG pH ABG pO2 ABG HCO3 ABG O2 Saturation ABG Base Excess ABG Hemoglobin Sodium Potassium Chloride Carbon Dioxide BUN Creatinine Glucose POC Glucose 139 H Lactic Acid 3.00 H* Calcium Phosphorus Magnesium Total Bilirubin Direct Bilirubin AST ALT Alkaline Phosphatase Lactate Dehydrogenase Troponin T C-Reactive Protein NT-Pro-B Natriuret Pep Total Protein Albumin Urine Creatinine 35.3 H 04/12/20 04/12/20 04/12/20 06:22 06:22 06:22 WBC 11.5 H RBC 3.61 L Hgb 9.1 L Hct 27.8 L MCV 77 L MCH 25 L MCHC RDW 20.8 H Plt Count Lymph % (Auto) Lymph # (Auto) Seg Neutrophils % Seg Neuts % (Manual) 100.0 H Lymphocytes % (Manual) 0 L Nucleated RBC % Seg Neutrophils # Seg Neutrophils # Man 11.5 H Lymphocytes # (Manual) 0.0 L PT 15.5 H INR 1.21 H D-Dimer Heparin Anti-Xa Level ABG pH ABG pO2 ABG HCO3 ABG O2 Saturation ABG Base Excess ABG Hemoglobin Sodium 132 L Potassium 5.3 H Chloride 96.6 L Carbon Dioxide 20 L BUN 43 H Creatinine 2.0 H Glucose 152 H POC Glucose Lactic Acid Calcium Phosphorus Magnesium Total Bilirubin Direct Bilirubin AST ALT Alkaline Phosphatase Lactate Dehydrogenase Troponin T C-Reactive Protein NT-Pro-B Natriuret Pep Total Protein Albumin Urine Creatinine 04/12/20 04/12/20 04/12/20 13:23 18:12 20:23 WBC RBC Hgb Hct MCV MCH MCHC RDW Plt Count Lymph % (Auto) Lymph # (Auto) Seg Neutrophils % Seg Neuts % (Manual) Lymphocytes % (Manual) Nucleated RBC % Seg Neutrophils # Seg Neutrophils # Man Lymphocytes # (Manual) PT INR D-Dimer Heparin Anti-Xa Level ABG pH ABG pO2 ABG HCO3 ABG O2 Saturation ABG Base Excess ABG Hemoglobin Sodium 135 L Potassium 5.4 H Chloride Carbon Dioxide BUN 53 H Creatinine 2.3 H Glucose 190 H POC Glucose 224 H 170 H Lactic Acid Calcium Phosphorus Magnesium Total Bilirubin Direct Bilirubin AST ALT Alkaline Phosphatase Lactate Dehydrogenase Troponin T C-Reactive Protein NT-Pro-B Natriuret Pep Total Protein Albumin Urine Creatinine 04/12/20 04/12/20 04/13/20 20:23 23:59 05:06 WBC RBC Hgb 8.4 L Hct 26.6 L MCV MCH MCHC RDW Plt Count Lymph % (Auto) Lymph # (Auto) Seg Neutrophils % Seg Neuts % (Manual) Lymphocytes % (Manual) Nucleated RBC % Seg Neutrophils # Seg Neutrophils # Man Lymphocytes # (Manual) PT INR D-Dimer Heparin Anti-Xa Level < 0.10 L ABG pH ABG pO2 ABG HCO3 ABG O2 Saturation ABG Base Excess ABG Hemoglobin Sodium Potassium Chloride Carbon Dioxide BUN Creatinine Glucose POC Glucose 189 H Lactic Acid Calcium Phosphorus Magnesium Total Bilirubin Direct Bilirubin AST ALT Alkaline Phosphatase Lactate Dehydrogenase Troponin T C-Reactive Protein NT-Pro-B Natriuret Pep Total Protein Albumin Urine Creatinine 04/13/20 04/13/20 04/13/20 05:06 05:06 05:47 WBC RBC Hgb Hct MCV MCH MCHC RDW Plt Count Lymph % (Auto) Lymph # (Auto) Seg Neutrophils % Seg Neuts % (Manual) Lymphocytes % (Manual) Nucleated RBC % Seg Neutrophils # Seg Neutrophils # Man Lymphocytes # (Manual) PT INR D-Dimer Heparin Anti-Xa Level ABG pH ABG pO2 ABG HCO3 ABG O2 Saturation ABG Base Excess ABG Hemoglobin Sodium 135 L Potassium Chloride Carbon Dioxide 17 L BUN 59 H Creatinine 2.2 H Glucose 256 H POC Glucose 240 H Lactic Acid Calcium Phosphorus Magnesium Total Bilirubin Direct Bilirubin 0.6 H AST 160 H ALT 333 H Alkaline Phosphatase 153 H Lactate Dehydrogenase Troponin T C-Reactive Protein NT-Pro-B Natriuret Pep Total Protein 6.0 L Albumin 3.0 L Urine Creatinine 04/13/20 04/13/20 04/14/20 11:36 21:08 00:32 WBC RBC Hgb Hct MCV MCH MCHC RDW Plt Count Lymph % (Auto) Lymph # (Auto) Seg Neutrophils % Seg Neuts % (Manual) Lymphocytes % (Manual) Nucleated RBC % Seg Neutrophils # Seg Neutrophils # Man Lymphocytes # (Manual) PT INR D-Dimer Heparin Anti-Xa Level ABG pH ABG pO2 ABG HCO3 ABG O2 Saturation ABG Base Excess ABG Hemoglobin Sodium Potassium Chloride Carbon Dioxide BUN Creatinine Glucose POC Glucose 167 H 199 H 233 H Lactic Acid Calcium Phosphorus Magnesium Total Bilirubin Direct Bilirubin AST ALT Alkaline Phosphatase Lactate Dehydrogenase Troponin T C-Reactive Protein NT-Pro-B Natriuret Pep Total Protein Albumin Urine Creatinine 04/14/20 04/14/20 04/14/20 06:34 06:41 16:50 WBC RBC Hgb Hct MCV MCH MCHC RDW Plt Count Lymph % (Auto) Lymph # (Auto) Seg Neutrophils % Seg Neuts % (Manual) Lymphocytes % (Manual) Nucleated RBC % Seg Neutrophils # Seg Neutrophils # Man Lymphocytes # (Manual) PT INR D-Dimer Heparin Anti-Xa Level ABG pH ABG pO2 ABG HCO3 ABG O2 Saturation ABG Base Excess ABG Hemoglobin Sodium 129 L Potassium 5.7 H D Chloride 96.2 L Carbon Dioxide 14 L BUN 81 H Creatinine 2.8 H Glucose 244 H POC Glucose 195 H 293 H Lactic Acid Calcium Phosphorus Magnesium Total Bilirubin Direct Bilirubin AST 181 H ALT 386 H Alkaline Phosphatase 160 H Lactate Dehydrogenase Troponin T C-Reactive Protein NT-Pro-B Natriuret Pep Total Protein 6.0 L Albumin 2.9 L Urine Creatinine 04/14/20 04/15/20 04/15/20 23:55 04:56 04:56 WBC RBC Hgb 8.7 L Hct 27.2 L MCV MCH MCHC RDW Plt Count Lymph % (Auto) Lymph # (Auto) Seg Neutrophils % Seg Neuts % (Manual) Lymphocytes % (Manual) Nucleated RBC % Seg Neutrophils # Seg Neutrophils # Man Lymphocytes # (Manual) PT INR D-Dimer Heparin Anti-Xa Level ABG pH ABG pO2 ABG HCO3 ABG O2 Saturation ABG Base Excess ABG Hemoglobin Sodium Potassium Chloride Carbon Dioxide 19 L BUN 93 H 97 H Creatinine 3.1 H 2.9 H Glucose 226 H 226 H POC Glucose Lactic Acid Calcium 8.3 L 8.1 L Phosphorus Magnesium Total Bilirubin Direct Bilirubin AST ALT Alkaline Phosphatase Lactate Dehydrogenase Troponin T C-Reactive Protein NT-Pro-B Natriuret Pep Total Protein Albumin Urine Creatinine 04/15/20 04/15/20 04/15/20 04:56 05:25 11:03 WBC RBC Hgb Hct MCV MCH MCHC RDW Plt Count Lymph % (Auto) Lymph # (Auto) Seg Neutrophils % Seg Neuts % (Manual) Lymphocytes % (Manual) Nucleated RBC % Seg Neutrophils # Seg Neutrophils # Man Lymphocytes # (Manual) PT INR D-Dimer Heparin Anti-Xa Level ABG pH ABG pO2 ABG HCO3 ABG O2 Saturation ABG Base Excess ABG Hemoglobin Sodium Potassium Chloride Carbon Dioxide BUN Creatinine Glucose POC Glucose 209 H 127 H Lactic Acid Calcium Phosphorus Magnesium Total Bilirubin Direct Bilirubin 0.6 H AST 85 H ALT 330 H Alkaline Phosphatase 201 H Lactate Dehydrogenase Troponin T C-Reactive Protein NT-Pro-B Natriuret Pep Total Protein 6.1 L Albumin 3.5 L Urine Creatinine 04/15/20 04/16/20 04/16/20 15:16 00:39 06:14 WBC RBC Hgb Hct MCV MCH MCHC RDW Plt Count Lymph % (Auto) Lymph # (Auto) Seg Neutrophils % Seg Neuts % (Manual) Lymphocytes % (Manual) Nucleated RBC % Seg Neutrophils # Seg Neutrophils # Man Lymphocytes # (Manual) PT INR D-Dimer Heparin Anti-Xa Level ABG pH ABG pO2 ABG HCO3 ABG O2 Saturation ABG Base Excess ABG Hemoglobin Sodium Potassium Chloride Carbon Dioxide BUN Creatinine Glucose POC Glucose 184 H 294 H 230 H Lactic Acid Calcium Phosphorus Magnesium Total Bilirubin Direct Bilirubin AST ALT Alkaline Phosphatase Lactate Dehydrogenase Troponin T C-Reactive Protein NT-Pro-B Natriuret Pep Total Protein Albumin Urine Creatinine 04/16/20 04/16/20 04/16/20 07:12 07:12 11:09 WBC RBC Hgb 9.1 L Hct 28.8 L MCV 78 L MCH 25 L MCHC RDW 21.4 H Plt Count 138 L Lymph % (Auto) Lymph # (Auto) Seg Neutrophils % Seg Neuts % (Manual) 94.0 H Lymphocytes % (Manual) 4.0 L Nucleated RBC % 1.0 H Seg Neutrophils # Seg Neutrophils # Man Lymphocytes # (Manual) 0.3 L PT INR D-Dimer Heparin Anti-Xa Level ABG pH ABG pO2 ABG HCO3 ABG O2 Saturation ABG Base Excess ABG Hemoglobin Sodium Potassium Chloride Carbon Dioxide BUN 106 H Creatinine 3.1 H Glucose 219 H POC Glucose 297 H Lactic Acid Calcium 7.9 L Phosphorus Magnesium Total Bilirubin Direct Bilirubin AST 58 H ALT 247 H Alkaline Phosphatase 150 H Lactate Dehydrogenase Troponin T C-Reactive Protein NT-Pro-B Natriuret Pep Total Protein 6.1 L Albumin 3.4 L Urine Creatinine 04/16/20 04/16/20 04/17/20 16:42 22:39 04:31 WBC RBC Hgb 9.1 L Hct 28.8 L MCV MCH MCHC RDW Plt Count 132 L Lymph % (Auto) Lymph # (Auto) Seg Neutrophils % Seg Neuts % (Manual) Lymphocytes % (Manual) Nucleated RBC % Seg Neutrophils # Seg Neutrophils # Man Lymphocytes # (Manual) PT INR D-Dimer Heparin Anti-Xa Level ABG pH ABG pO2 ABG HCO3 ABG O2 Saturation ABG Base Excess ABG Hemoglobin Sodium Potassium Chloride Carbon Dioxide BUN Creatinine Glucose POC Glucose 314 H 303 H Lactic Acid Calcium Phosphorus Magnesium Total Bilirubin Direct Bilirubin AST ALT Alkaline Phosphatase Lactate Dehydrogenase Troponin T C-Reactive Protein NT-Pro-B Natriuret Pep Total Protein Albumin Urine Creatinine 04/17/20 04/17/20 04/17/20 04:31 08:01 10:30 WBC RBC Hgb Hct MCV MCH MCHC RDW Plt Count Lymph % (Auto) Lymph # (Auto) Seg Neutrophils % Seg Neuts % (Manual) Lymphocytes % (Manual) Nucleated RBC % Seg Neutrophils # Seg Neutrophils # Man Lymphocytes # (Manual) PT INR D-Dimer Heparin Anti-Xa Level ABG pH 7.505 H ABG pO2 157.9 H ABG HCO3 19.4 L ABG O2 Saturation 99.1 H ABG Base Excess -2.8 L ABG Hemoglobin 9.1 L Sodium Potassium Chloride Carbon Dioxide 18 L BUN 111 H Creatinine 2.9 H Glucose 184 H POC Glucose 185 H Lactic Acid Calcium 7.9 L Phosphorus Magnesium Total Bilirubin Direct Bilirubin AST ALT 201 H Alkaline Phosphatase 148 H Lactate Dehydrogenase Troponin T C-Reactive Protein NT-Pro-B Natriuret Pep Total Protein 6.1 L Albumin 3.4 L Urine Creatinine 04/17/20 04/17/20 04/17/20 12:14 17:57 20:54 WBC RBC Hgb Hct MCV MCH MCHC RDW Plt Count Lymph % (Auto) Lymph # (Auto) Seg Neutrophils % Seg Neuts % (Manual) Lymphocytes % (Manual) Nucleated RBC % Seg Neutrophils # Seg Neutrophils # Man Lymphocytes # (Manual) PT INR D-Dimer Heparin Anti-Xa Level ABG pH ABG pO2 ABG HCO3 ABG O2 Saturation ABG Base Excess ABG Hemoglobin Sodium Potassium Chloride Carbon Dioxide BUN Creatinine Glucose POC Glucose 143 H 144 H 144 H Lactic Acid Calcium Phosphorus Magnesium Total Bilirubin Direct Bilirubin AST ALT Alkaline Phosphatase Lactate Dehydrogenase Troponin T C-Reactive Protein NT-Pro-B Natriuret Pep Total Protein Albumin Urine Creatinine 04/18/20 04/18/20 04/18/20 04:40 08:06 12:16 WBC RBC Hgb Hct MCV MCH MCHC RDW Plt Count Lymph % (Auto) Lymph # (Auto) Seg Neutrophils % Seg Neuts % (Manual) Lymphocytes % (Manual) Nucleated RBC % Seg Neutrophils # Seg Neutrophils # Man Lymphocytes # (Manual) PT INR D-Dimer Heparin Anti-Xa Level ABG pH ABG pO2 ABG HCO3 ABG O2 Saturation ABG Base Excess ABG Hemoglobin Sodium Potassium Chloride Carbon Dioxide 20 L BUN 120 H Creatinine 2.7 H Glucose 174 H POC Glucose 158 H 273 H Lactic Acid Calcium 7.9 L Phosphorus Magnesium Total Bilirubin 1.30 H Direct Bilirubin AST ALT 165 H Alkaline Phosphatase 139 H Lactate Dehydrogenase Troponin T C-Reactive Protein NT-Pro-B Natriuret Pep Total Protein 6.1 L Albumin 3.3 L Urine Creatinine 04/18/20 04/18/20 04/19/20 16:33 20:09 04:43 WBC 11.1 H RBC Hgb 9.0 L Hct 28.5 L MCV 77 L MCH 24 L MCHC RDW 21.2 H Plt Count 107 L Lymph % (Auto) Lymph # (Auto) Seg Neutrophils % Seg Neuts % (Manual) 95.0 H Lymphocytes % (Manual) 4.0 L Nucleated RBC % 2.0 H Seg Neutrophils # Seg Neutrophils # Man 10.5 H Lymphocytes # (Manual) 0.4 L PT INR D-Dimer Heparin Anti-Xa Level ABG pH ABG pO2 ABG HCO3 ABG O2 Saturation ABG Base Excess ABG Hemoglobin Sodium Potassium Chloride Carbon Dioxide BUN Creatinine Glucose POC Glucose 230 H 244 H Lactic Acid Calcium Phosphorus Magnesium Total Bilirubin Direct Bilirubin AST ALT Alkaline Phosphatase Lactate Dehydrogenase Troponin T C-Reactive Protein NT-Pro-B Natriuret Pep Total Protein Albumin Urine Creatinine 04/19/20 04/19/20 04/19/20 04:43 08:00 12:43 WBC RBC Hgb Hct MCV MCH MCHC RDW Plt Count Lymph % (Auto) Lymph # (Auto) Seg Neutrophils % Seg Neuts % (Manual) Lymphocytes % (Manual) Nucleated RBC % Seg Neutrophils # Seg Neutrophils # Man Lymphocytes # (Manual) PT INR D-Dimer Heparin Anti-Xa Level ABG pH ABG pO2 ABG HCO3 ABG O2 Saturation ABG Base Excess ABG Hemoglobin Sodium Potassium 3.4 L Chloride Carbon Dioxide BUN 110 H Creatinine 2.6 H Glucose 215 H POC Glucose 175 H 226 H Lactic Acid Calcium 8.3 L Phosphorus Magnesium Total Bilirubin Direct Bilirubin AST ALT 126 H Alkaline Phosphatase 140 H Lactate Dehydrogenase Troponin T C-Reactive Protein NT-Pro-B Natriuret Pep Total Protein 5.8 L Albumin 3.2 L Urine Creatinine 04/19/20 04/19/20 04/20/20 16:53 20:18 06:58 WBC RBC 3.63 L Hgb 8.7 L Hct 27.9 L MCV 77 L MCH 24 L MCHC 31 L RDW 21.1 H Plt Count 92 L Lymph % (Auto) Lymph # (Auto) Seg Neutrophils % Seg Neuts % (Manual) 91.0 H Lymphocytes % (Manual) 2.0 L Nucleated RBC % Seg Neutrophils # Seg Neutrophils # Man 8.1 H Lymphocytes # (Manual) 0.2 L PT INR D-Dimer Heparin Anti-Xa Level ABG pH ABG pO2 ABG HCO3 ABG O2 Saturation ABG Base Excess ABG Hemoglobin Sodium Potassium Chloride Carbon Dioxide BUN Creatinine Glucose POC Glucose 246 H 254 H Lactic Acid Calcium Phosphorus Magnesium Total Bilirubin Direct Bilirubin AST ALT Alkaline Phosphatase Lactate Dehydrogenase Troponin T C-Reactive Protein NT-Pro-B Natriuret Pep Total Protein Albumin Urine Creatinine 04/20/20 04/20/20 04/20/20 06:58 08:32 10:57 WBC RBC Hgb Hct MCV MCH MCHC RDW Plt Count Lymph % (Auto) Lymph # (Auto) Seg Neutrophils % Seg Neuts % (Manual) Lymphocytes % (Manual) Nucleated RBC % Seg Neutrophils # Seg Neutrophils # Man Lymphocytes # (Manual) PT INR D-Dimer Heparin Anti-Xa Level ABG pH ABG pO2 ABG HCO3 ABG O2 Saturation ABG Base Excess ABG Hemoglobin Sodium Potassium 3.5 L Chloride 108.9 H Carbon Dioxide BUN 96 H Creatinine 2.0 H Glucose 318 H POC Glucose 293 H 275 H Lactic Acid Calcium Phosphorus Magnesium Total Bilirubin Direct Bilirubin AST ALT Alkaline Phosphatase Lactate Dehydrogenase Troponin T C-Reactive Protein NT-Pro-B Natriuret Pep Total Protein Albumin Urine Creatinine 04/20/20 04/21/20 04/21/20 15:26 04:48 04:48 WBC RBC Hgb 9.1 L Hct 29.5 L MCV 78 L MCH 24 L MCHC 31 L RDW 21.2 H Plt Count 98 L Lymph % (Auto) 3.1 L Lymph # (Auto) 0.3 L Seg Neutrophils % 88.4 H Seg Neuts % (Manual) Lymphocytes % (Manual) Nucleated RBC % Seg Neutrophils # 9.0 H Seg Neutrophils # Man Lymphocytes # (Manual) PT INR D-Dimer Heparin Anti-Xa Level ABG pH ABG pO2 ABG HCO3 ABG O2 Saturation ABG Base Excess ABG Hemoglobin Sodium 148 H Potassium Chloride 111.9 H Carbon Dioxide BUN 85 H Creatinine 1.8 H Glucose 213 H POC Glucose 124 H Lactic Acid Calcium Phosphorus Magnesium Total Bilirubin Direct Bilirubin AST ALT Alkaline Phosphatase Lactate Dehydrogenase Troponin T C-Reactive Protein NT-Pro-B Natriuret Pep Total Protein Albumin Urine Creatinine 04/21/20 04/21/20 04/21/20 07:58 11:07 16:36 WBC RBC Hgb Hct MCV MCH MCHC RDW Plt Count Lymph % (Auto) Lymph # (Auto) Seg Neutrophils % Seg Neuts % (Manual) Lymphocytes % (Manual) Nucleated RBC % Seg Neutrophils # Seg Neutrophils # Man Lymphocytes # (Manual) PT INR D-Dimer Heparin Anti-Xa Level ABG pH ABG pO2 ABG HCO3 ABG O2 Saturation ABG Base Excess ABG Hemoglobin Sodium Potassium Chloride Carbon Dioxide BUN Creatinine Glucose POC Glucose 177 H 149 H 248 H Lactic Acid Calcium Phosphorus Magnesium Total Bilirubin Direct Bilirubin AST ALT Alkaline Phosphatase Lactate Dehydrogenase Troponin T C-Reactive Protein NT-Pro-B Natriuret Pep Total Protein Albumin Urine Creatinine 04/21/20 04/22/20 04/22/20 21:54 04:05 04:05 WBC 11.9 H RBC Hgb 8.9 L Hct 29.0 L MCV 78 L MCH 24 L MCHC 31 L RDW 21.8 H Plt Count 100 L Lymph % (Auto) 8.1 L Lymph # (Auto) 1.0 L Seg Neutrophils % 84.2 H Seg Neuts % (Manual) Lymphocytes % (Manual) Nucleated RBC % Seg Neutrophils # 10.0 H Seg Neutrophils # Man Lymphocytes # (Manual) PT INR D-Dimer Heparin Anti-Xa Level ABG pH ABG pO2 ABG HCO3 ABG O2 Saturation ABG Base Excess ABG Hemoglobin Sodium 148 H Potassium Chloride 114.8 H Carbon Dioxide BUN 78 H Creatinine 1.6 H Glucose POC Glucose 118 H Lactic Acid Calcium Phosphorus Magnesium Total Bilirubin Direct Bilirubin AST ALT Alkaline Phosphatase Lactate Dehydrogenase Troponin T C-Reactive Protein NT-Pro-B Natriuret Pep Total Protein Albumin Urine Creatinine Chest x-ray: image reviewed (Chest x-ray show rotated film, left hemidiaphragm is not visualized possible underlying pleural effusion or atelectasis. Minimal changes in the right base.)
[2020-04-22] MEDS: TAMSULOSIN 0.4 MG CAP PO SCH ×2 (18:29→19:49)
[2020-04-22] MEDS: ACETAMINOPHEN 325 MG TAB PO PRN (23:10)
[2020-04-22] MEDS: INSULIN GLARGINE 100 UNITS/ML SUB-Q SCH (23:10)
[2020-04-23] MEDS: ARFORMOTEROL 15 MCG/2 ML NEBU IH SCH ×3 (07:33→19:18)
[2020-04-23] MEDS: BUDESONIDE 0.5 MG/2 ML NEBU IH SCH ×3 (07:33→19:18)
[2020-04-23] MEDS: INSULIN LISPRO 100 UNIT/ML VIAL 3 mL SUB-Q SCH ×4 (08:00→22:20)
[2020-04-23 08:17] LABS: Calcium 8.1 mg/dL (8.4-10.2)
--- NOTE | 2020-04-23 09:35 | Progress Note ---
Assessment and Plan Chronic systolic heart failure LVEF 15-20% by echo 01/2020 VQ scan reports a low probability for PE. COVID 19 test was negative Paroxysmal Atrial fibrillation vs flutter currently in afib with RVR on metoprolol for rate control initiated on low dose Eliquis due to patient's low body weight of 64 kg and evidence of chronic anemia. Hx of Ischemic cardiomyopathy noncompliant with outpatient cardiac follow up. Hx of CAD Abdominal pain CT scan of the abdomen suggestive of colitis. Renal insufficiency Recommednations: Continue current management Discussed with RV to administer metoprolol this morning RV staff not sure why metoprolol was held yesterday Subjective Date of service: 04/23/20 Principal diagnosis: CHF Interval history: No cardiac events overnight Afib on tele with RVR Objective Vital Signs Temp Pulse Pulse Resp Resp BP BP 04/23/20 08:19 97.9 F 86 16 125/60 04/23/20 05:10 98.0 F 77 18 118/65 04/23/20 00:22 98.0 F 84 18 110/55 04/22/20 22:00 79 04/22/20 19:15 98.5 F 80 18 111/52 04/22/20 17:30 71 18 04/22/20 12:16 97.9 F 71 18 118/60 04/22/20 10:00 71 Pulse Ox 04/23/20 08:19 92 04/23/20 05:10 94 04/23/20 00:22 96 04/22/20 22:00 04/22/20 19:15 99 04/22/20 17:30 04/22/20 12:16 90 04/22/20 10:00 - Physical Examination General: No Apparent Distress, Cachectic HEENT: Positive: PERRL Neck: Positive: trachea midline Cardiac: Positive: Reg Rate and Rhythm Lungs: Positive: Normal Exam Neuro: Positive: Weakness Abdomen: Positive: Soft Skin: Positive: Clear Extremities: Absent: edema - Labs and Meds Comprehensive Metabolic Panel 04/23/20 Range/Units 06:55 Sodium 145 (137-145) mmol/L Potassium 5.2 H D (3.6-5.0) mmol/L Chloride 113.4 H (98-107) mmol/L Carbon Dioxide 23 (22-30) mmol/L BUN 69 H (9-20) mg/dL Creatinine 1.4 H (0.8-1.3) mg/dL Glucose 167 H (75-100) mg/dL Calcium 8.1 L (8.4-10.2) mg/dL
[2020-04-23] MEDS: APIXABAN 2.5 MG TAB PO SCH ×2 (09:57→22:19)
[2020-04-23] MEDS: TAMSULOSIN 0.4 MG CAP PO SCH (09:57)
[2020-04-23] MEDS: METOPROLOL TARTRATE 100 MG TAB PO SCH ×2 (09:58→22:19)
--- NOTE | 2020-04-23 10:07 | Progress Note ---
Assessment and Plan Assessment and plan: ---Acute respiratory failure Current Visit: Yes Status: Acute Plan to address problem: Slightly improving but still needs oxygen to maintain sats. CT chest x-ray ordered Has no pneumonia and no sepsis. Continue oxygen supplementation COVID-19 test negative --Acute on chronic systolic CHF (congestive heart failure) Current Visit: Yes Status: Acute Plan to address problem: Holding Lasix due to KIRT Will monitor daily weight, inputs and outputs. Monitor renal function closely Cardiology on board --KIRT (acute kidney injury) Current Visit: Yes Status: Acute Plan to address problem: Creatinine stable at 3.1 Discontinued Lasix. Vasomotor nephropathy Nephrology following --Colitis Current Visit: Yes Status: Acute Plan to address problem: Resolved GI recommendations appreciated --Arrhythmias-atrial fibrillation versus nonsustained ventricular tachycardia Current Visit: Yes Status: Acute Plan to address problem: Initially started on amiodarone but discontinued due to elevated LFTs Now on metoprolol every 6 and rate is currently controlled. Started on low-dose apixaban 2.5 mg twice daily Cardiology recommendations appreciated --Diabetes mellitus type 2 in nonobese Current Visit: No Status: Acute Plan to address problem: Lantus and sliding scale insulin. --Hyperkalemia and metabolic acidosis Current Visit: Yes Status: Acute Plan to address problem: Resolved --T12 compression fracture Current Visit: No Status: Likely chronic Plan to address problem: CT abdomen showed acute appearing T12 compression fracture 04/14. MRI thoracic without contrast ordered to further evaluate. 04/15. Patient is agitated and unable to get an MRI. 04/16. Awaiting MRI without contrast thoracic. Plan to use sedatives today. Informed RN. If positive for acute fracture, patient will need to be transferred for neurosurgery evaluation. 04/17. MRI thoracic and lumbar showed acute T12 compression fracture. Discussed case with [employer] [facility] [employer] manager who advised no acute intervention is necessary at this time-advised TLSO brace when patient is sitting or ambulatory. He will need follow-up with Dr. Dalton Jack, Dr. Alan Henson, Dr. Tyson Clark [contact number [phone]] after discharge. ---Elevated LFTs Current Visit: Yes Status: Acute Plan to address problem: Improving US abdomen shows no acute pathology ---Infrarenal aortic aneurysm Current Visit: No Status: Acute Plan to address problem: 3.8 cm in diameter Needs to follow-up with vascular surgery at discharge for monitoring -Anemia and thrombocytopenia Current Visit: No Status: Acute Plan to address problem: Monitor platelets ?HIT - Hold heparin for now Peripheral smear reviewed - target cells, tear drops. Hematology consulted -- DVT prophylaxis Current Visit: No Status: Acute Plan to address problem: Hold heparin for now. Started on anticoagulation per cardiology. HIT antibody sent --Full code status Current Visit: No Status: Acute Disposition-home with hospice as per patient son plan stable 04/11. Patient seen and examined at bedside this morning. Patient is on BiPAP. Patient is eager to go home. Otherwise denies any chest pain or palpitations. Patient CT showed possible compression fracture of T12, it is unknown if this is new. We will get MRI without contrast of the thoracic and lumbar to further evaluate. If patient actually has an acute compression fracture, he will need to have a neurosurgery evaluation so will need to be transferred to another facility for this. Otherwise, patient continue to monitor patient's respiratory status while in the IMCU. Patient reportedly failed a swallow evaluation and will need to have an NG tube placement. Tried to call son on number provided in the chart and left a message. Awaiting callback. Labs reviewed-patient has elevated inflammatory ozendcs-T-tzmme, LDH. COVID-19 test has been ordered. Started patient on steroids. Ordered stat BMP, ABG, D-dimer, proBNP, ferritin, LDH. 04/12. COVID -19 test is negative. His breathing has improved so was placed on nasal cannula. Cardiology adjusted meds today. He failed swallow evaluation yesterday. He requests for food. Will reattempt swallow evaluation. Speech therapy consult. 04/13. Overnight, he developed VT and was started on amiodarone. HR better this AM. Cardiology will review medications. Patient seen and examined at bedside this AM. He requests for food. He failed a repeat speech evaluation and will need barium swallow. May need PEG placement if he fails. NG tube in place. Vitals reviewed 04/14. Heart rate improved. Remains n.p.o. with NG tube feeds. Video swallow evaluation shows mild abnormal study. Speech therapist to see patient. Patient has not been able to have an MRI of the back due to agitation. He had a CT during the admission that showed possible compression fracture of T12 but this has not been fully evaluated due to patient's ongoing conditions. Labs reviewed-renal function is worse. Discontinue Lasix. 04/15. Has been started on a diet and is tolerating. He pulled out his NG tube last night. Okay to leave NG tube for now. Plan to get an MRI performed today with sedative to evaluate T12 fracture. Patient denies any back pain. Renal function slightly improved today after Lasix was discontinued. Continue IV hydration. Nephrology recommendations appreciated 04/16. He feels better today. MRI could not be done yesterday. Hopefully patient can have an MRI done today. Creatinine 3.1 today. Patient will need placement but will need to have evaluation of possible T12 fracture prior to discharge 04/17. MRI thoracic and lumbar showed acute T12 compression fracture. Discussed case with [employer] [facility] manager who advised no acute intervention is necessary at this time-advised TLSO brace when patient is sitting or ambulatory. He will need follow-up with Dr. Dalton Jack, Dr. Alan Henson, Dr. Tyson Clark [contact number [phone]] after discharge. 04/18. Await Nephrology recs for d/c plans 04/19/2020. Patient reportedly with choking/coughing with swallowing. We will change to n.p.o. status right now. Speech reevaluation. Check chest x-ray to rule out aspiration pneumonia. Await nephrology recommendations for discharge. Creatinine slowly improving. CT of abdomen negative for hydronephrosis. BUN increasing. Therefore, we will check Hemoccult of stool to rule out GI bleed. Hemoglobin has been stable. 04/20/2020. Repeat chest x-ray reveals worsening bibasilar opacities. Pulmonary consulted. Doppler of left upper extremity for swelling. PT evaluation recommends subacute rehab 04/21/2020. Await pulmonary consultation for worsening bibasilar opacities. Doppler of left upper extremity pending. PT evaluation recommends subacute rehab. Creatinine has improved to near baseline of 1.8. Nephrology following 04/22/2020. Pulmonary sees no need for antibiotics or further evaluation of bibasilar opacities with CT scan. Continue current COPD treatment. Beta blockers increase for A. fib per cardiology. Await Doppler left upper extremity. PT evaluation recommends subacute rehab but case management reports patient's son Haseeb [phone]. Haseeb wants patient to return home with [facility]. 04/23/2020. Continue beta-blockers for atrial fibrillation per cardiology. Await left upper extremity Doppler ultrasound for left upper extremity swelling. PT evaluation recommends subacute rehab but case management reports patient's son Haseeb [phone]. Haseeb wants patient to return home with [facility]. Creatinine appears to be improved to baseline. Anticipate discharge in the next 1 to 2 days. History Interval history: Patient with left upper extremity swelling. Hospitalist Physical - Constitutional Vitals: Temp Pulse Resp BP Pulse Ox 97.9 F 79 16 125/61 92 04/23/20 08:19 04/23/20 09:58 04/23/20 08:19 04/23/20 09:58 04/23/20 08:19 General appearance: Present: no acute distress - EENT Eyes: Present: PERRL, EOM intact ENT: hearing intact, clear oral mucosa, dentition normal - Neck Neck: Present: supple, normal ROM - Respiratory Respiratory effort: normal Respiratory: bilateral: CTA - Cardiovascular Rhythm: regular Heart Sounds: Present: S1 & S2. Absent: gallop, rub - Extremities Extremities: no ischemia, No edema, Full ROM - Abdominal General gastrointestinal: soft, non-tender, non-distended, normal bowel sounds - Integumentary Integumentary: Present: clear, warm, dry - Neurologic Neurologic: CNII-XII intact, moves all extremities HEART Score - HEART Score Troponin: Troponin T 0.081 ng/mL (0.00-0.029) H 04/10/20 20:04 Results - Labs CBC & Chem 7: 04/22/20 04:05 04/23/20 06:55 Labs: Laboratory Last Values WBC 11.9 K/mm3 (4.5-11.0) H 04/22/20 04:05 RBC 3.74 M/mm3 (3.65-5.03) 04/22/20 04:05 Hgb 8.9 gm/dl (11.8-15.2) L 04/22/20 04:05 Hct 29.0 % (35.5-45.6) L 04/22/20 04:05 MCV 78 fl (84-94) L 04/22/20 04:05 MCH 24 pg (28-32) L 04/22/20 04:05 MCHC 31 % (32-34) L 04/22/20 04:05 RDW 21.8 % (13.2-15.2) H 04/22/20 04:05 Plt Count 100 K/mm3 (140-440) L 04/22/20 04:05 Lymph % (Auto) 8.1 % (13.4-35.0) L 04/22/20 04:05 [place] % (Auto) 5.6 % (0.0-7.3) 04/22/20 04:05 Eos % (Auto) 1.8 % (0.0-4.3) 04/22/20 04:05 Baso % (Auto) 0.3 % (0.0-1.8) 04/22/20 04:05 Lymph # (Auto) 1.0 K/mm3 (1.2-5.4) L 04/22/20 04:05 [place] # (Auto) 0.7 K/mm3 (0.0-0.8) 04/22/20 04:05 Eos # (Auto) 0.2 K/mm3 (0.0-0.4) 04/22/20 04:05 Baso # (Auto) 0.0 K/mm3 (0.0-0.1) 04/22/20 04:05 Add Manual Diff Complete 04/20/20 06:58 Total Counted 100 04/20/20 06:58 Seg Neutrophils % 84.2 % (40.0-70.0) H 04/22/20 04:05 Seg Neuts % (Manual) 91.0 % (40.0-70.0) H 04/20/20 06:58 Band Neutrophils % 0 % 04/20/20 06:58 Lymphocytes % (Manual) 2.0 % (13.4-35.0) L 04/20/20 06:58 Reactive Lymphs % (Man) 0 % 04/20/20 06:58 Monocytes % (Manual) 7.0 % (0.0-7.3) 04/20/20 06:58 Eosinophils % (Manual) 0 % (0.0-4.3) 04/20/20 06:58 Basophils % (Manual) 0 % (0.0-1.8) 04/20/20 06:58 Metamyelocytes % 0 % 04/20/20 06:58 Myelocytes % 0 % 04/20/20 06:58 Promyelocytes % 0 % 04/20/20 06:58 Blast Cells % 0 % 04/20/20 06:58 Nucleated RBC % Not Reportable 04/20/20 06:58 Seg Neutrophils # 10.0 K/mm3 (1.8-7.7) H 04/22/20 04:05 Seg Neutrophils # Man 8.1 K/mm3 (1.8-7.7) H 04/20/20 06:58 Band Neutrophils # 0.0 K/mm3 04/20/20 06:58 Lymphocytes # (Manual) 0.2 K/mm3 (1.2-5.4) L 04/20/20 06:58 Abs React Lymphs (Man) 0.0 K/mm3 04/20/20 06:58 Monocytes # (Manual) 0.6 K/mm3 (0.0-0.8) 04/20/20 06:58 Eosinophils # (Manual) 0.0 K/mm3 (0.0-0.4) 04/20/20 06:58 Basophils # (Manual) 0.0 K/mm3 (0.0-0.1) 04/20/20 06:58 Metamyelocytes # 0.0 K/mm3 04/20/20 06:58 Myelocytes # 0.0 K/mm3 04/20/20 06:58 Promyelocytes # 0.0 K/mm3 04/20/20 06:58 Blast Cells # 0.0 K/mm3 04/20/20 06:58 WBC Morphology Not Reportable 04/20/20 06:58 Hypersegmented Neuts Not Reportable 04/20/20 06:58 Hyposegmented Neuts Not Reportable 04/20/20 06:58 Hypogranular Neuts Not Reportable 04/20/20 06:58 Smudge Cells Not Reportable 04/20/20 06:58 Toxic Granulation Not Reportable 04/20/20 06:58 Toxic Vacuolation Not Reportable 04/20/20 06:58 Dohle Bodies Not Reportable 04/20/20 06:58 Pelger-Huet Anomaly Not Reportable 04/20/20 06:58 Barby Rods Not Reportable 04/20/20 06:58 Platelet Estimate Consistent w auto 04/20/20 06:58 Clumped Platelets Not Reportable 04/20/20 06:58 Plt Clumps, EDTA Not Reportable 04/20/20 06:58 Large Platelets Not Reportable 04/20/20 06:58 Giant Platelets Not Reportable 04/20/20 06:58 Platelet Satelliting Not Reportable 04/20/20 06:58 Plt Morphology Comment Not Reportable 04/20/20 06:58 RBC Morphology Not Reportable 04/20/20 06:58 Dimorphic RBCs Not Reportable 04/20/20 06:58 Polychromasia Not Reportable 04/20/20 06:58 Hypochromasia 2+ 04/20/20 06:58 Poikilocytosis Not Reportable 04/20/20 06:58 Anisocytosis 1+ 04/20/20 06:58 Microcytosis Not Reportable 04/20/20 06:58 Macrocytosis Not Reportable 04/20/20 06:58 Spherocytes Not Reportable 04/20/20 06:58 Pappenheimer Bodies Not Reportable 04/20/20 06:58 Sickle Cells Not Reportable 04/20/20 06:58 Target Cells Not Reportable 04/20/20 06:58 Tear Drop Cells Not Reportable 04/20/20 06:58 Ovalocytes Not Reportable 04/20/20 06:58 Helmet Cells Not Reportable 04/20/20 06:58 Snell-Zalma Bodies Not Reportable 04/20/20 06:58 [place] Rings Not Reportable 04/20/20 06:58 Marcia Cells Not Reportable 04/20/20 06:58 Bite Cells Not Reportable 04/20/20 06:58 Crenated Cell Not Reportable 04/20/20 06:58 Elliptocytes Not Reportable 04/20/20 06:58 Acanthocytes (Spur) Not Reportable 04/20/20 06:58 Rouleaux Not Reportable 04/20/20 06:58 Hemoglobin C Crystals Not Reportable 04/20/20 06:58 Schistocytes Not Reportable 04/20/20 06:58 Malaria parasites Not Reportable 04/20/20 06:58 Willie Bodies Not Reportable 04/20/20 06:58 Hem Pathologist Commnt No 04/20/20 06:58 PT 15.5 Sec. (12.2-14.9) H 04/12/20 06:22 INR 1.21 (0.87-1.13) H 04/12/20 06:22 D-Dimer 2029.09 ng/mlDDU (0-234) H 04/11/20 15:11 Heparin Anti-Xa Level 0.35 U.I./ml (0.3-0.7) 04/13/20 05:06 Heparin Anti-Xa, Unfract Negative (Negative) 04/17/20 22:45 ABG pH 7.505 pH Units (7.350-7.450) H 04/17/20 10:30 ABG pCO2 25.2 mm Hg 04/17/20 10:30 ABG pO2 157.9 mm Hg (80.0-90.0) H 04/17/20 10:30 ABG HCO3 19.4 mmol/L (20.0-26.0) L 04/17/20 10:30 ABG O2 Saturation 99.1 % (95.0-99.0) H 04/17/20 10:30 ABG O2 Content 12.7 (0.0-44) 04/17/20 10:30 ABG Base Excess -2.8 mmol/L (-2.0-3.0) L 04/17/20 10:30 ABG Hemoglobin 9.1 gm/dl (14.0-18.0) L 04/17/20 10:30 ABG Carboxyhemoglobin 1.6 % (0.0-5.0) 04/17/20 10:30 ABG Methemoglobin 0.4 % (0.0-1.5) 04/17/20 10:30 Oxyhemoglobin 97.0 % (95.0-99.0) 04/17/20 10:30 FiO2 35 % 04/17/20 10:30 Sodium 145 mmol/L (137-145) 04/23/20 06:55 Potassium 5.2 mmol/L (3.6-5.0) H D 04/23/20 06:55 Chloride 113.4 mmol/L (98-107) H 04/23/20 06:55 Carbon Dioxide 23 mmol/L (22-30) 04/23/20 06:55 Anion Gap 14 mmol/L 04/23/20 06:55 BUN 69 mg/dL (9-20) H 04/23/20 06:55 Creatinine 1.4 mg/dL (0.8-1.3) H 04/23/20 06:55 Estimated GFR 50 ml/min 04/23/20 06:55 BUN/Creatinine Ratio 49 % 04/23/20 06:55 Glucose 167 mg/dL (75-100) H 04/23/20 06:55 POC Glucose 165 mg/dL (70-105) H 04/23/20 08:17 Lactic Acid 3.00 mmol/L (0.7-2.0) H* 04/12/20 06:22 Calcium 8.1 mg/dL (8.4-10.2) L 04/23/20 06:55 Phosphorus 5.60 mg/dL (2.5-4.5) H 04/10/20 22:50 Magnesium 2.40 mg/dL (1.7-2.3) H 04/10/20 22:50 Ferritin 135.1 ng/mL (30.0-300.0) 04/11/20 15:11 Total Bilirubin 1.20 mg/dL (0.1-1.2) 04/19/20 04:43 Direct Bilirubin 0.6 mg/dL (0-0.2) H 04/15/20 04:56 Indirect Bilirubin 0.3 mg/dL 04/15/20 04:56 AST 24 units/L (5-40) 04/19/20 04:43 ALT 126 units/L (7-56) H 04/19/20 04:43 Alkaline Phosphatase 140 units/L (35-129) H 04/19/20 04:43 Lactate Dehydrogenase 664 units/L (91-180) H 04/10/20 20:51 Troponin T 0.081 ng/mL (0.00-0.029) H 04/10/20 20:04 C-Reactive Protein 5.60 mg/dL (0.00-1.30) H 04/10/20 20:51 NT-Pro-B Natriuret Pep > 01935 pg/mL (0-900) H 04/11/20 15:11 Total Protein 5.8 g/dL (6.3-8.2) L 04/19/20 04:43 Albumin 3.2 g/dL (3.9-5) L 04/19/20 04:43 Albumin/Globulin Ratio 1.2 % 04/19/20 04:43 Triglycerides 113 mg/dL (2-149) 04/10/20 20:04 Cholesterol 178 mg/dL (50-199) 04/10/20 20:04 LDL Cholesterol Direct 123 mg/dL (50-130) 04/10/20 20:04 HDL Cholesterol 41 mg/dL (40-59) 04/10/20 20:04 Cholesterol/HDL Ratio 4.34 % 04/10/20 20:04 Procalcitonin 2.47 ng/mL (<0.15) 04/11/20 15:11 TSH 3.640 mlU/mL (0.270-4.200) 04/13/20 10:06 Urine Color Yellow (Yellow) 04/11/20 Unknown Urine Turbidity Clear (Clear) 04/11/20 Unknown Urine pH 5.0 (5.0-7.0) 04/11/20 Unknown Ur Specific [place] 1.009 (1.003-1.030) 04/11/20 Unknown Urine Protein <15 mg/dl mg/dL (Negative) 04/11/20 Unknown Urine Glucose (UA) Neg mg/dL (Negative) 04/11/20 Unknown Urine Ketones Neg mg/dL (Negative) 04/11/20 Unknown Urine Blood Neg (Negative) 04/11/20 Unknown Urine Nitrite Neg (Negative) 04/11/20 Unknown Urine Bilirubin Neg (Negative) 04/11/20 Unknown Urine Urobilinogen < 2.0 mg/dL (<2.0) 04/11/20 Unknown Ur Leukocyte Esterase Neg (Negative) 04/11/20 Unknown Urine WBC (Auto) 1.0 /HPF (0.0-6.0) 04/11/20 Unknown Urine RBC (Auto) 2.0 /HPF (0.0-6.0) 04/11/20 Unknown U Epithel Cells (Auto) < 1.0 /HPF (0-13.0) 04/11/20 Unknown Hyaline Casts 3 /LPF 04/11/20 Unknown Urine Mucus Few /HPF 04/11/20 Unknown Urine Eosinophils None seen (None Seen) 04/11/20 Unknown Urine Creatinine 35.3 mg/dL (0.1-20.0) H 04/11/20 Unknown Urine Sodium 92 mmol/L 11/17/20 Unknown Heparin-induced Plt Ab Negative (Negative) 04/17/20 22:45 UF Heparin High Dose 0 % Release 04/17/20 22:45 CHERYL UFH Low Dose 0.1 0 % Release 04/17/20 22:45 CHERYL UFH Low Dose 0.5 0 % Release 04/17/20 22:45 Coronavirus (PCR) Negative (Negative) 04/11/20 Unknown Hepatitis A IgM Ab Non-reactive (NonReactive) 04/12/20 20:23 Hep Bs Antigen Non-reactive (Negative) 04/12/20 20:23 Hep B Core IgM Ab Non-reactive (NonReactive) 04/12/20 20:23 Hepatitis C Antibody Non-reactive (NonReactive) 04/12/20 20:23 Gay/IV: Voiding Method Incontinent IV Catheter Type [Right Upper INT / Saline Lock arm] IV Catheter Type [Left Wrist] Peripheral IV IV Catheter Type [Right INT / Saline Lock Forearm] IV Catheter Type [Right Wrist] INT / Saline Lock Active Medications - Current Medications Current Medications: Generic Name Dose Route Start Last Admin Trade Name Freq PRN Reason Stop Dose Admin Acetaminophen 650 mg 04/11/20 01:26 04/22/20 23:10 Tylenol PO 650 mg Q6H PRN Administration Pain MILD(1-3)/Fever >100.5/MANCILLA Lipase/Protease/Amylase 1 each 04/11/20 14:22 Pancremiley Saenz 10,500 Unit FEEDTUBE PRN PRN For Clogged Feeding Tube Apixaban 2.5 mg 04/17/20 12:00 04/23/20 09:57 Eliquis PO 2.5 mg Q12HR PRAVIN Administration Protocol Arformoterol Tartrate 15 mcg 04/20/20 20:00 04/23/20 07:33 Brovana Nebu IH 15 mcg Q12HRT PRAVIN Administration Budesonide 0.5 mg 04/20/20 20:00 04/23/20 07:33 Pulmicort IH 0.5 mg Q12HRT PRAVIN Administration Insulin Glargine 10 units 04/16/20 22:00 04/22/20 23:10 Lantus SUB-Q 10 units QHS PRAVIN Administration Insulin Human Lispro 0 unit 04/16/20 16:30 04/23/20 08:00 Humalog SUB-Q 2 unit ACHS PRAVIN Administration Protocol Magnesium Hydroxide 30 ml 04/11/20 01:26 Milk Of Magnesia PO Q4H PRN Constipation Metoprolol Tartrate 100 mg 04/21/20 12:00 04/23/20 09:58 Metoprolol PO 100 mg BID PRAVIN Administration Simple Syrup 15 ml 04/11/20 14:22 Simple Syrup FEEDTUBE PRN PRN Hypoglycemia Simple Syrup 30 ml 04/11/20 14:22 Simple Syrup FEEDTUBE PRN PRN Hypoglycemia Sodium Bicarbonate 325 mg 04/11/20 14:22 Sodium Bicarbonate FEEDTUBE PRN PRN For Clogged Feeding Tube Sodium Chloride 10 ml 04/11/20 10:00 04/23/20 09:58 Sodium Chloride Flush Syringe 10 Ml IV 10 ml BID PRAVIN Administration Sodium Chloride 10 ml 04/11/20 01:26 Sodium Chloride Flush Syringe 10 Ml IV PRN PRN LINE FLUSH Tamsulosin HCl 0.4 mg 04/22/20 20:00 04/23/20 09:57 Flomax PO 0.4 mg QDAY PRAVIN Administration Nutrition/Malnutrition Assess - Dietary Evaluation Nutrition/Malnutrition Findings: Nutrition Notes Start: 04/11/20 13:41 Freq: Status: Active Protocol: Document 04/21/20 10:20 LM (Rec: 04/21/20 10:25 LM [id number]) Nutrition Notes Initial or Follow up Reassessment Current Diagnosis Acute Kidney Injury,COPD, Coronary Artery Disease, Diabetes,Hypertension,Heart Failure Other Pertinent Diagnosis [place], Crohn's disease, seizure, colitis Current Diet Pureed w/ nectar liq Labs/Tests BUN 85 Cr 1.8 BG 213 Na 148 Pertinent Medications Reviewed Height 5 ft 7 in Weight 67.8 kg [place] Body Weight (kg) 67.27 BMI 23.3 Weight change and time frame Wt change noted. Pt has edema Subjective/Other Information [employer] recommends pureed diet with nectar liq. Pt's tray was untouched this AM. Switched Glucerna to Nepro. Percent of energy/protein needs met: 0%/0% Burn Absent Trauma Absent Difficulty In Swallowing,Chewing Current % PO Negligible Minimum of two criteria No #1 Nutrition Diagnosis Inadequate oral intake Diagnosis Progress(for reassessment Continues documentation) Is patient on ventilator? No Is Patient Ambulatory and/or Out of Bed No REE-([facility]-confined to bed) 6539.148 Calculation Used for Recommendations Bina Moncada Additional Notes Protein Needs: 52-78 g (0.8-1. 2 g/kg) Fluid Needs: 1 mL/kcal Nutrition Intervention Change Diet Order: Pureed or restart Enteral nutritionof pt continues to eat less than 50% Add Supplement/Snack (indicate name/kcal Nepro daily /protein ) Provides kCal: 425 Provides Protein (gm) 19 Goal #1 Meet at least 75% of energy an protein needs Anticipated Discharge Needs: Unable to determine at this time Follow-Up By: 04/24/20 Additional Comments F/U for intakes
[2020-04-23] MEDS ORDERED: SODIUM POLYSTYRENE 15 GM/60 ML ORAL LIQD PO ONE (11:13)
--- NOTE | 2020-04-23 11:13 | Progress Note ---
Assessment and Plan 1. Acute kidney injury: Vasomotor KIRT superimposed on CKD. CT abdomen negative for hydro. Monitor renal function. Creatinine level slowly improving. Avoid nephrotoxic agents. Meds dosage based on GFR. 2. FEN: Hypernatremia, encourage PO fluids. Hypokalemia, Kayexalate ordered, monitor. Anion-gap metabolic acidosis, improved, monitor. Monitor lytes and volume status. 3. Acute hypoxic respiratory failure: Possibly secondary to the CHF and underlying pneumonia. COVID-19 test negative. 4. Chronic CHF: Monitor daily weight, intake and outputs. Followed by Cards. 5. Colitis: Monitor. Seen by GI. 6. Anemia, POA: Monitor. 7. Elevated Transaminases: Monitor. 8. DM type 2. 9. HTN: Monitor BP. Subjective: Patient was seen and examined at the bedside. Examination: General appearance: well-developed, appears stated age, on restrains HEENT: ATNC, pupils equal Neck: trachea midline Respiratory: ctab Heart: regular, S1S2, no murmur Gastrointestinal: soft, normoactive bowel sounds, not tender Integumentary: no rash, warm and dry Neurologic: alert, confused Ext: no edema Subjective Date of service: 04/23/20 Principal diagnosis: CHF Objective - Vital Signs Vital signs: Vital Signs - 12hr 04/23/20 04/23/20 04/23/20 00:22 05:10 08:19 Temperature 98.0 F 98.0 F 97.9 F Pulse Rate 84 77 86 Respiratory 18 18 16 Rate Blood Pressure 110/55 118/65 125/60 O2 Sat by Pulse 96 94 92 Oximetry 04/23/20 09:58 Temperature Pulse Rate 79 Respiratory Rate Blood Pressure 125/61 O2 Sat by Pulse Oximetry - Lab 04/22/20 04:05 04/23/20 06:55 Most recent lab results ABG pH 7.505 pH Units (7.350-7.450) H 04/17/20 10:30 ABG pCO2 25.2 mm Hg 04/17/20 10:30 ABG pO2 157.9 mm Hg (80.0-90.0) H 04/17/20 10:30 ABG HCO3 19.4 mmol/L (20.0-26.0) L 04/17/20 10:30 ABG O2 Saturation 99.1 % (95.0-99.0) H 04/17/20 10:30 Calcium 8.1 mg/dL (8.4-10.2) L 04/23/20 06:55 Phosphorus 5.60 mg/dL (2.5-4.5) H 04/10/20 22:50 Magnesium 2.40 mg/dL (1.7-2.3) H 04/10/20 22:50 Urine Creatinine 35.3 mg/dL (0.1-20.0) H 04/11/20 Unknown Urine Sodium 92 mmol/L 04/11/20 Unknown Medications & Allergies - Medications Allergies/Adverse Reactions: Allergies Sulfa (Sulfonamide Antibiotics) Allergy (Verified 07/30/18 17:44) Rash Home Medications: Home Medications Medication Instructions Recorded Confirmed Last Taken Type Gabapentin 300 mg PO BID 09/19/16 04/21/20 09/18/16 History 300 mg Metformin HCl [metFORMIN ER 500 mg PO BIDWM 03/28/17 04/21/20 Unknown History Gastric] AtorvaSTATin 10 mg PO QHS #30 tablet 12/21/17 04/21/20 Unknown Rx Ranolazine ER [Ranexa ER] 500 mg PO BID #60 tablet 12/21/17 04/21/20 Unknown Rx Aspirin 325 mg PO QDAY #30 tablet 01/12/18 04/21/20 04/21/20 Rx Diphenoxylate/Atropine [Lomotil] 1 tab PO Q8H PRN 01/15/18 04/21/20 Unknown History Insulin Lispro [HumaLOG VIAL] See Protocol SQ ACHS 01/15/18 04/21/20 04/21/20 18:46 History Promethazine [Phenergan] 25 mg PO Q4H PRN 01/15/18 04/21/20 Unknown History Albuterol Mdi (or & Nicu Only) 2 puff IH Q4HR PRN #1 inhalation 12/21/18 04/21/20 04/21/20 18:46 Rx [ProAir HFA Inhaler] Furosemide [Lasix TAB] 20 mg PO QDAY #30 tablet 02/03/20 04/21/20 Unknown Rx Metoprolol Xl [Metoprolol 25 mg PO DAILY #60 tablet 02/03/20 04/21/20 04/21/20 18:45 Rx SUCCINATE ER TAB] levETIRAcetam [Keppra TAB] 500 mg PO BID #120 tablet 02/03/20 04/21/20 Unknown Rx levoFLOXacin [Levaquin TAB] 500 mg PO QDAY #5 tablet 02/03/20 04/21/20 Unknown Rx Active Medications: Generic Name Dose Route Start Last Admin Trade Name Freq PRN Reason Stop Dose Admin Acetaminophen 650 mg 04/11/20 01:26 04/22/20 23:10 Tylenol PO 650 mg Q6H PRN Administration Pain MILD(1-3)/Fever >100.5/MANCILLA Lipase/Protease/Amylase 1 each 04/11/20 14:22 Pancreazaddison Saenz 10,500 Unit FEEDTUBE PRN PRN For Clogged Feeding Tube Apixaban 2.5 mg 04/17/20 12:00 04/23/20 09:57 Eliquis PO 2.5 mg Q12HR PARVIN Administration Protocol Arformoterol Tartrate 15 mcg 04/20/20 20:00 04/23/20 07:33 Brovana Nebu IH 15 mcg Q12HRT PRAVIN Administration Budesonide 0.5 mg 04/20/20 20:00 04/23/20 07:33 Pulmicort IH 0.5 mg Q12HRT PRAVIN Administration Insulin Glargine 10 units 04/16/20 22:00 04/22/20 23:10 Lantus SUB-Q 10 units QHS PRAVIN Administration Insulin Human Lispro 0 unit 04/16/20 16:30 04/23/20 08:00 Humalog SUB-Q 2 unit ACHS PRAVIN Administration Protocol Magnesium Hydroxide 30 ml 04/11/20 01:26 Milk Of Magnesia PO Q4H PRN Constipation Metoprolol Tartrate 100 mg 04/21/20 12:00 04/23/20 09:58 Metoprolol PO 100 mg BID PRAVIN Administration Simple Syrup 15 ml 04/11/20 14:22 Simple Syrup FEEDTUBE PRN PRN Hypoglycemia Simple Syrup 30 ml 04/11/20 14:22 Simple Syrup FEEDTUBE PRN PRN Hypoglycemia Sodium Bicarbonate 325 mg 04/11/20 14:22 Sodium Bicarbonate FEEDTUBE PRN PRN For Clogged Feeding Tube Sodium Chloride 10 ml 04/11/20 10:00 04/23/20 09:58 Sodium Chloride Flush Syringe 10 Ml IV 10 ml BID PRAVIN Administration Sodium Chloride 10 ml 04/11/20 01:26 Sodium Chloride Flush Syringe 10 Ml IV PRN PRN LINE FLUSH Tamsulosin HCl 0.4 mg 04/22/20 20:00 04/23/20 09:57 Flomax PO 0.4 mg QDAY PRAVIN Administration
--- NOTE | 2020-04-23 13:54 | Progress Note ---
Assessment and Plan 75 y/o male with known systolic heart failure, admitted with shortness of breath and abdominal pain 10 days ago, had nonsustained V-tach on arrival but never lost pulse, now with abnormal CXR and chronic respiratory failure. 1. Reviewed multiple imaging from this patient over several hospital stays. His most recent films are definitely improved compared to arrival and are better or close to the same as some of the images on past admits when not in fluid overload. It appears the left basilar opacity may be a small amount of pleural effusion. Clinically the patient appears to be stable and has not had any increase in his O2 requirement and has good sats. I do not currently see a need for CT of chest nor do I see a need for empiric abx therapy. Would continue current COPD regimen, encourage smoking cessation and consider Incentive spirometry therapy 10-14x per hour while awake. Call if any questions or concerns. Will repeat chest x-ray in the morning Subjective Date of service: 04/23/20 Principal diagnosis: CHF Interval history: Voices no symptoms. Feels ok Objective Vital Signs - 12hr 04/23/20 04/23/20 04/23/20 05:10 08:19 09:58 Temperature 98.0 F 97.9 F Pulse Rate 77 86 79 Respiratory 18 16 Rate Blood Pressure 118/65 125/60 125/61 Blood Pressure [Left] O2 Sat by Pulse 94 92 Oximetry 04/23/20 04/23/20 10:00 11:51 Temperature 98.2 F Pulse Rate 74 76 Respiratory 16 16 Rate Blood Pressure Blood Pressure 118/74 [Left] O2 Sat by Pulse 97 97 Oximetry Constitutional: no acute distress, alert Eyes: non-icteric Neck: supple Ascultation: Bilateral: diminished breath sounds Percussion: Bilateral: not dull Cardiovascular: irregular rhythm CBC and BMP: 04/22/20 04:05 04/23/20 06:55 ABG, PT/INR, D-dimer: ABG ABG pH 7.505 pH Units (7.350-7.450) H 04/17/20 10:30 ABG pCO2 25.2 mm Hg 04/17/20 10:30 ABG pO2 157.9 mm Hg (80.0-90.0) H 04/17/20 10:30 ABG O2 Saturation 99.1 % (95.0-99.0) H 04/17/20 10:30 PT/INR, D-dimer PT 15.5 Sec. (12.2-14.9) H 04/12/20 06:22 INR 1.21 (0.87-1.13) H 04/12/20 06:22 D-Dimer 2029.09 ng/mlDDU (0-234) H 04/11/20 15:11 Abnormal lab findings: Abnormal Labs 04/10/20 04/10/20 04/10/20 20:04 20:04 20:04 WBC RBC Hgb 9.3 L Hct 29.9 L MCV 80 L MCH 25 L MCHC 31 L RDW 21.7 H Plt Count Lymph % (Auto) 10.9 L Lymph # (Auto) 0.8 L Seg Neutrophils % 81.5 H Seg Neuts % (Manual) Lymphocytes % (Manual) Nucleated RBC % Seg Neutrophils # Seg Neutrophils # Man Lymphocytes # (Manual) PT INR D-Dimer Heparin Anti-Xa Level ABG pH ABG pO2 ABG HCO3 ABG O2 Saturation ABG Base Excess ABG Hemoglobin Sodium 133 L Potassium 5.9 H Chloride Carbon Dioxide 12 L BUN 25 H Creatinine 1.7 H Glucose 119 H POC Glucose Lactic Acid 8.80 H* Calcium Phosphorus Magnesium Total Bilirubin 1.40 H Direct Bilirubin AST 144 H ALT 83 H Alkaline Phosphatase 212 H Lactate Dehydrogenase Troponin T 0.081 H C-Reactive Protein NT-Pro-B Natriuret Pep Total Protein Albumin 3.5 L Urine Creatinine 04/10/20 04/10/20 04/10/20 20:35 20:51 20:51 WBC RBC Hgb Hct MCV MCH MCHC RDW Plt Count Lymph % (Auto) Lymph # (Auto) Seg Neutrophils % Seg Neuts % (Manual) Lymphocytes % (Manual) Nucleated RBC % Seg Neutrophils # Seg Neutrophils # Man Lymphocytes # (Manual) PT INR D-Dimer 1881.28 H Heparin Anti-Xa Level ABG pH 7.320 L ABG pO2 240.7 H ABG HCO3 11.8 L ABG O2 Saturation 99.4 H ABG Base Excess -12.8 L ABG Hemoglobin 9.0 L Sodium Potassium Chloride Carbon Dioxide BUN Creatinine Glucose 116 H POC Glucose Lactic Acid Calcium Phosphorus Magnesium Total Bilirubin Direct Bilirubin AST ALT Alkaline Phosphatase Lactate Dehydrogenase 664 H Troponin T C-Reactive Protein 5.60 H NT-Pro-B Natriuret Pep Total Protein Albumin Urine Creatinine 04/10/20 04/10/20 04/11/20 20:51 22:50 00:36 WBC RBC Hgb Hct MCV MCH MCHC RDW Plt Count Lymph % (Auto) Lymph # (Auto) Seg Neutrophils % Seg Neuts % (Manual) Lymphocytes % (Manual) Nucleated RBC % Seg Neutrophils # Seg Neutrophils # Man Lymphocytes # (Manual) PT INR D-Dimer Heparin Anti-Xa Level ABG pH ABG pO2 ABG HCO3 ABG O2 Saturation ABG Base Excess ABG Hemoglobin Sodium 132 L Potassium 6.0 H Chloride Carbon Dioxide 17 L BUN 26 H Creatinine 1.7 H Glucose 115 H POC Glucose 237 H Lactic Acid Calcium Phosphorus 5.60 H Magnesium 2.40 H Total Bilirubin 1.40 H Direct Bilirubin AST 286 H ALT 161 H Alkaline Phosphatase 207 H Lactate Dehydrogenase Troponin T C-Reactive Protein NT-Pro-B Natriuret Pep Total Protein Albumin 3.6 L Urine Creatinine 04/11/20 04/11/20 04/11/20 03:10 05:32 07:37 WBC RBC Hgb Hct MCV MCH MCHC RDW Plt Count Lymph % (Auto) Lymph # (Auto) Seg Neutrophils % Seg Neuts % (Manual) Lymphocytes % (Manual) Nucleated RBC % Seg Neutrophils # Seg Neutrophils # Man Lymphocytes # (Manual) PT INR D-Dimer Heparin Anti-Xa Level ABG pH ABG pO2 ABG HCO3 ABG O2 Saturation ABG Base Excess ABG Hemoglobin Sodium Potassium 6.2 H* Chloride Carbon Dioxide BUN Creatinine Glucose POC Glucose 181 H 182 H Lactic Acid Calcium Phosphorus Magnesium Total Bilirubin Direct Bilirubin AST ALT Alkaline Phosphatase Lactate Dehydrogenase Troponin T C-Reactive Protein NT-Pro-B Natriuret Pep Total Protein Albumin Urine Creatinine 04/11/20 04/11/20 04/11/20 07:37 07:45 12:04 WBC RBC Hgb Hct MCV MCH MCHC RDW Plt Count Lymph % (Auto) Lymph # (Auto) Seg Neutrophils % Seg Neuts % (Manual) Lymphocytes % (Manual) Nucleated RBC % Seg Neutrophils # Seg Neutrophils # Man Lymphocytes # (Manual) PT INR D-Dimer Heparin Anti-Xa Level ABG pH ABG pO2 ABG HCO3 ABG O2 Saturation ABG Base Excess ABG Hemoglobin Sodium 133 L Potassium 6.1 H* Chloride Carbon Dioxide 10 L D BUN 26 H Creatinine 1.7 H Glucose POC Glucose 212 H 196 H Lactic Acid Calcium Phosphorus Magnesium Total Bilirubin Direct Bilirubin AST ALT Alkaline Phosphatase Lactate Dehydrogenase Troponin T C-Reactive Protein NT-Pro-B Natriuret Pep Total Protein Albumin Urine Creatinine 04/11/20 04/11/20 04/11/20 15:11 15:11 15:11 WBC RBC Hgb Hct MCV MCH MCHC RDW Plt Count Lymph % (Auto) Lymph # (Auto) Seg Neutrophils % Seg Neuts % (Manual) Lymphocytes % (Manual) Nucleated RBC % Seg Neutrophils # Seg Neutrophils # Man Lymphocytes # (Manual) PT INR D-Dimer 9.09 H Heparin Anti-Xa Level ABG pH ABG pO2 ABG HCO3 ABG O2 Saturation ABG Base Excess ABG Hemoglobin Sodium Potassium Chloride Carbon Dioxide BUN Creatinine Glucose POC Glucose Lactic Acid 2.30 H* Calcium Phosphorus Magnesium Total Bilirubin Direct Bilirubin AST ALT Alkaline Phosphatase Lactate Dehydrogenase Troponin T C-Reactive Protein NT-Pro-B Natriuret Pep > 23272 H Total Protein Albumin Urine Creatinine 04/11/20 04/11/20 04/11/20 15:11 16:07 16:25 WBC RBC Hgb Hct MCV MCH MCHC RDW Plt Count Lymph % (Auto) Lymph # (Auto) Seg Neutrophils % Seg Neuts % (Manual) Lymphocytes % (Manual) Nucleated RBC % Seg Neutrophils # Seg Neutrophils # Man Lymphocytes # (Manual) PT INR D-Dimer Heparin Anti-Xa Level ABG pH ABG pO2 110.8 H ABG HCO3 ABG O2 Saturation ABG Base Excess -3.4 L ABG Hemoglobin 8.6 L Sodium 131 L Potassium 5.3 H Chloride Carbon Dioxide BUN 33 H Creatinine 1.9 H Glucose 268 H POC Glucose 227 H Lactic Acid Calcium 8.3 L Phosphorus Magnesium Total Bilirubin Direct Bilirubin AST 575 H ALT 414 H Alkaline Phosphatase 153 H Lactate Dehydrogenase Troponin T C-Reactive Protein NT-Pro-B Natriuret Pep Total Protein 5.6 L Albumin 2.9 L Urine Creatinine 04/11/20 04/12/20 04/12/20 Unknown 05:57 06:22 WBC RBC Hgb Hct MCV MCH MCHC RDW Plt Count Lymph % (Auto) Lymph # (Auto) Seg Neutrophils % Seg Neuts % (Manual) Lymphocytes % (Manual) Nucleated RBC % Seg Neutrophils # Seg Neutrophils # Man Lymphocytes # (Manual) PT INR D-Dimer Heparin Anti-Xa Level ABG pH ABG pO2 ABG HCO3 ABG O2 Saturation ABG Base Excess ABG Hemoglobin Sodium Potassium Chloride Carbon Dioxide BUN Creatinine Glucose POC Glucose 139 H Lactic Acid 3.00 H* Calcium Phosphorus Magnesium Total Bilirubin Direct Bilirubin AST ALT Alkaline Phosphatase Lactate Dehydrogenase Troponin T C-Reactive Protein NT-Pro-B Natriuret Pep Total Protein Albumin Urine Creatinine 35.3 H 04/12/20 04/12/20 04/12/20 06:22 06:22 06:22 WBC 11.5 H RBC 3.61 L Hgb 9.1 L Hct 27.8 L MCV 77 L MCH 25 L MCHC RDW 20.8 H Plt Count Lymph % (Auto) Lymph # (Auto) Seg Neutrophils % Seg Neuts % (Manual) 100.0 H Lymphocytes % (Manual) 0 L Nucleated RBC % Seg Neutrophils # Seg Neutrophils # Man 11.5 H Lymphocytes # (Manual) 0.0 L PT 15.5 H INR 1.21 H D-Dimer Heparin Anti-Xa Level ABG pH ABG pO2 ABG HCO3 ABG O2 Saturation ABG Base Excess ABG Hemoglobin Sodium 132 L Potassium 5.3 H Chloride 96.6 L Carbon Dioxide 20 L BUN 43 H Creatinine 2.0 H Glucose 152 H POC Glucose Lactic Acid Calcium Phosphorus Magnesium Total Bilirubin Direct Bilirubin AST ALT Alkaline Phosphatase Lactate Dehydrogenase Troponin T C-Reactive Protein NT-Pro-B Natriuret Pep Total Protein Albumin Urine Creatinine 04/12/20 04/12/20 04/12/20 13:23 18:12 20:23 WBC RBC Hgb Hct MCV MCH MCHC RDW Plt Count Lymph % (Auto) Lymph # (Auto) Seg Neutrophils % Seg Neuts % (Manual) Lymphocytes % (Manual) Nucleated RBC % Seg Neutrophils # Seg Neutrophils # Man Lymphocytes # (Manual) PT INR D-Dimer Heparin Anti-Xa Level ABG pH ABG pO2 ABG HCO3 ABG O2 Saturation ABG Base Excess ABG Hemoglobin Sodium 135 L Potassium 5.4 H Chloride Carbon Dioxide BUN 53 H Creatinine 2.3 H Glucose 190 H POC Glucose 224 H 170 H Lactic Acid Calcium Phosphorus Magnesium Total Bilirubin Direct Bilirubin AST ALT Alkaline Phosphatase Lactate Dehydrogenase Troponin T C-Reactive Protein NT-Pro-B Natriuret Pep Total Protein Albumin Urine Creatinine 04/12/20 04/12/20 04/13/20 20:23 23:59 05:06 WBC RBC Hgb 8.4 L Hct 26.6 L MCV MCH MCHC RDW Plt Count Lymph % (Auto) Lymph # (Auto) Seg Neutrophils % Seg Neuts % (Manual) Lymphocytes % (Manual) Nucleated RBC % Seg Neutrophils # Seg Neutrophils # Man Lymphocytes # (Manual) PT INR D-Dimer Heparin Anti-Xa Level < 0.10 L ABG pH ABG pO2 ABG HCO3 ABG O2 Saturation ABG Base Excess ABG Hemoglobin Sodium Potassium Chloride Carbon Dioxide BUN Creatinine Glucose POC Glucose 189 H Lactic Acid Calcium Phosphorus Magnesium Total Bilirubin Direct Bilirubin AST ALT Alkaline Phosphatase Lactate Dehydrogenase Troponin T C-Reactive Protein NT-Pro-B Natriuret Pep Total Protein Albumin Urine Creatinine 04/13/20 04/13/20 04/13/20 05:06 05:06 05:47 WBC RBC Hgb Hct MCV MCH MCHC RDW Plt Count Lymph % (Auto) Lymph # (Auto) Seg Neutrophils % Seg Neuts % (Manual) Lymphocytes % (Manual) Nucleated RBC % Seg Neutrophils # Seg Neutrophils # Man Lymphocytes # (Manual) PT INR D-Dimer Heparin Anti-Xa Level ABG pH ABG pO2 ABG HCO3 ABG O2 Saturation ABG Base Excess ABG Hemoglobin Sodium 135 L Potassium Chloride Carbon Dioxide 17 L BUN 59 H Creatinine 2.2 H Glucose 256 H POC Glucose 240 H Lactic Acid Calcium Phosphorus Magnesium Total Bilirubin Direct Bilirubin 0.6 H AST 160 H ALT 333 H Alkaline Phosphatase 153 H Lactate Dehydrogenase Troponin T C-Reactive Protein NT-Pro-B Natriuret Pep Total Protein 6.0 L Albumin 3.0 L Urine Creatinine 04/13/20 04/13/20 04/14/20 11:36 21:08 00:32 WBC RBC Hgb Hct MCV MCH MCHC RDW Plt Count Lymph % (Auto) Lymph # (Auto) Seg Neutrophils % Seg Neuts % (Manual) Lymphocytes % (Manual) Nucleated RBC % Seg Neutrophils # Seg Neutrophils # Man Lymphocytes # (Manual) PT INR D-Dimer Heparin Anti-Xa Level ABG pH ABG pO2 ABG HCO3 ABG O2 Saturation ABG Base Excess ABG Hemoglobin Sodium Potassium Chloride Carbon Dioxide BUN Creatinine Glucose POC Glucose 167 H 199 H 233 H Lactic Acid Calcium Phosphorus Magnesium Total Bilirubin Direct Bilirubin AST ALT Alkaline Phosphatase Lactate Dehydrogenase Troponin T C-Reactive Protein NT-Pro-B Natriuret Pep Total Protein Albumin Urine Creatinine 04/14/20 04/14/20 04/14/20 06:34 06:41 16:50 WBC RBC Hgb Hct MCV MCH MCHC RDW Plt Count Lymph % (Auto) Lymph # (Auto) Seg Neutrophils % Seg Neuts % (Manual) Lymphocytes % (Manual) Nucleated RBC % Seg Neutrophils # Seg Neutrophils # Man Lymphocytes # (Manual) PT INR D-Dimer Heparin Anti-Xa Level ABG pH ABG pO2 ABG HCO3 ABG O2 Saturation ABG Base Excess ABG Hemoglobin Sodium 129 L Potassium 5.7 H D Chloride 96.2 L Carbon Dioxide 14 L BUN 81 H Creatinine 2.8 H Glucose 244 H POC Glucose 195 H 293 H Lactic Acid Calcium Phosphorus Magnesium Total Bilirubin Direct Bilirubin AST 181 H ALT 386 H Alkaline Phosphatase 160 H Lactate Dehydrogenase Troponin T C-Reactive Protein NT-Pro-B Natriuret Pep Total Protein 6.0 L Albumin 2.9 L Urine Creatinine 04/14/20 04/15/20 04/15/20 23:55 04:56 04:56 WBC RBC Hgb 8.7 L Hct 27.2 L MCV MCH MCHC RDW Plt Count Lymph % (Auto) Lymph # (Auto) Seg Neutrophils % Seg Neuts % (Manual) Lymphocytes % (Manual) Nucleated RBC % Seg Neutrophils # Seg Neutrophils # Man Lymphocytes # (Manual) PT INR D-Dimer Heparin Anti-Xa Level ABG pH ABG pO2 ABG HCO3 ABG O2 Saturation ABG Base Excess ABG Hemoglobin Sodium Potassium Chloride Carbon Dioxide 19 L BUN 93 H 97 H Creatinine 3.1 H 2.9 H Glucose 226 H 226 H POC Glucose Lactic Acid Calcium 8.3 L 8.1 L Phosphorus Magnesium Total Bilirubin Direct Bilirubin AST ALT Alkaline Phosphatase Lactate Dehydrogenase Troponin T C-Reactive Protein NT-Pro-B Natriuret Pep Total Protein Albumin Urine Creatinine 04/15/20 04/15/20 04/15/20 04:56 05:25 11:03 WBC RBC Hgb Hct MCV MCH MCHC RDW Plt Count Lymph % (Auto) Lymph # (Auto) Seg Neutrophils % Seg Neuts % (Manual) Lymphocytes % (Manual) Nucleated RBC % Seg Neutrophils # Seg Neutrophils # Man Lymphocytes # (Manual) PT INR D-Dimer Heparin Anti-Xa Level ABG pH ABG pO2 ABG HCO3 ABG O2 Saturation ABG Base Excess ABG Hemoglobin Sodium Potassium Chloride Carbon Dioxide BUN Creatinine Glucose POC Glucose 209 H 127 H Lactic Acid Calcium Phosphorus Magnesium Total Bilirubin Direct Bilirubin 0.6 H AST 85 H ALT 330 H Alkaline Phosphatase 201 H Lactate Dehydrogenase Troponin T C-Reactive Protein NT-Pro-B Natriuret Pep Total Protein 6.1 L Albumin 3.5 L Urine Creatinine 04/15/20 04/16/20 04/16/20 15:16 00:39 06:14 WBC RBC Hgb Hct MCV MCH MCHC RDW Plt Count Lymph % (Auto) Lymph # (Auto) Seg Neutrophils % Seg Neuts % (Manual) Lymphocytes % (Manual) Nucleated RBC % Seg Neutrophils # Seg Neutrophils # Man Lymphocytes # (Manual) PT INR D-Dimer Heparin Anti-Xa Level ABG pH ABG pO2 ABG HCO3 ABG O2 Saturation ABG Base Excess ABG Hemoglobin Sodium Potassium Chloride Carbon Dioxide BUN Creatinine Glucose POC Glucose 184 H 294 H 230 H Lactic Acid Calcium Phosphorus Magnesium Total Bilirubin Direct Bilirubin AST ALT Alkaline Phosphatase Lactate Dehydrogenase Troponin T C-Reactive Protein NT-Pro-B Natriuret Pep Total Protein Albumin Urine Creatinine 04/16/20 04/16/20 04/16/20 07:12 07:12 11:09 WBC RBC Hgb 9.1 L Hct 28.8 L MCV 78 L MCH 25 L MCHC RDW 21.4 H Plt Count 138 L Lymph % (Auto) Lymph # (Auto) Seg Neutrophils % Seg Neuts % (Manual) 94.0 H Lymphocytes % (Manual) 4.0 L Nucleated RBC % 1.0 H Seg Neutrophils # Seg Neutrophils # Man Lymphocytes # (Manual) 0.3 L PT INR D-Dimer Heparin Anti-Xa Level ABG pH ABG pO2 ABG HCO3 ABG O2 Saturation ABG Base Excess ABG Hemoglobin Sodium Potassium Chloride Carbon Dioxide BUN 106 H Creatinine 3.1 H Glucose 219 H POC Glucose 297 H Lactic Acid Calcium 7.9 L Phosphorus Magnesium Total Bilirubin Direct Bilirubin AST 58 H ALT 247 H Alkaline Phosphatase 150 H Lactate Dehydrogenase Troponin T C-Reactive Protein NT-Pro-B Natriuret Pep Total Protein 6.1 L Albumin 3.4 L Urine Creatinine 04/16/20 04/16/20 04/17/20 16:42 22:39 04:31 WBC RBC Hgb 9.1 L Hct 28.8 L MCV MCH MCHC RDW Plt Count 132 L Lymph % (Auto) Lymph # (Auto) Seg Neutrophils % Seg Neuts % (Manual) Lymphocytes % (Manual) Nucleated RBC % Seg Neutrophils # Seg Neutrophils # Man Lymphocytes # (Manual) PT INR D-Dimer Heparin Anti-Xa Level ABG pH ABG pO2 ABG HCO3 ABG O2 Saturation ABG Base Excess ABG Hemoglobin Sodium Potassium Chloride Carbon Dioxide BUN Creatinine Glucose POC Glucose 314 H 303 H Lactic Acid Calcium Phosphorus Magnesium Total Bilirubin Direct Bilirubin AST ALT Alkaline Phosphatase Lactate Dehydrogenase Troponin T C-Reactive Protein NT-Pro-B Natriuret Pep Total Protein Albumin Urine Creatinine 04/17/20 04/17/20 04/17/20 04:31 08:01 10:30 WBC RBC Hgb Hct MCV MCH MCHC RDW Plt Count Lymph % (Auto) Lymph # (Auto) Seg Neutrophils % Seg Neuts % (Manual) Lymphocytes % (Manual) Nucleated RBC % Seg Neutrophils # Seg Neutrophils # Man Lymphocytes # (Manual) PT INR D-Dimer Heparin Anti-Xa Level ABG pH 7.505 H ABG pO2 157.9 H ABG HCO3 19.4 L ABG O2 Saturation 99.1 H ABG Base Excess -2.8 L ABG Hemoglobin 9.1 L Sodium Potassium Chloride Carbon Dioxide 18 L BUN 111 H Creatinine 2.9 H Glucose 184 H POC Glucose 185 H Lactic Acid Calcium 7.9 L Phosphorus Magnesium Total Bilirubin Direct Bilirubin AST ALT 201 H Alkaline Phosphatase 148 H Lactate Dehydrogenase Troponin T C-Reactive Protein NT-Pro-B Natriuret Pep Total Protein 6.1 L Albumin 3.4 L Urine Creatinine 04/17/20 04/17/20 04/17/20 12:14 17:57 20:54 WBC RBC Hgb Hct MCV MCH MCHC RDW Plt Count Lymph % (Auto) Lymph # (Auto) Seg Neutrophils % Seg Neuts % (Manual) Lymphocytes % (Manual) Nucleated RBC % Seg Neutrophils # Seg Neutrophils # Man Lymphocytes # (Manual) PT INR D-Dimer Heparin Anti-Xa Level ABG pH ABG pO2 ABG HCO3 ABG O2 Saturation ABG Base Excess ABG Hemoglobin Sodium Potassium Chloride Carbon Dioxide BUN Creatinine Glucose POC Glucose 143 H 144 H 144 H Lactic Acid Calcium Phosphorus Magnesium Total Bilirubin Direct Bilirubin AST ALT Alkaline Phosphatase Lactate Dehydrogenase Troponin T C-Reactive Protein NT-Pro-B Natriuret Pep Total Protein Albumin Urine Creatinine 04/18/20 04/18/20 04/18/20 04:40 08:06 12:16 WBC RBC Hgb Hct MCV MCH MCHC RDW Plt Count Lymph % (Auto) Lymph # (Auto) Seg Neutrophils % Seg Neuts % (Manual) Lymphocytes % (Manual) Nucleated RBC % Seg Neutrophils # Seg Neutrophils # Man Lymphocytes # (Manual) PT INR D-Dimer Heparin Anti-Xa Level ABG pH ABG pO2 ABG HCO3 ABG O2 Saturation ABG Base Excess ABG Hemoglobin Sodium Potassium Chloride Carbon Dioxide 20 L BUN 120 H Creatinine 2.7 H Glucose 174 H POC Glucose 158 H 273 H Lactic Acid Calcium 7.9 L Phosphorus Magnesium Total Bilirubin 1.30 H Direct Bilirubin AST ALT 165 H Alkaline Phosphatase 139 H Lactate Dehydrogenase Troponin T C-Reactive Protein NT-Pro-B Natriuret Pep Total Protein 6.1 L Albumin 3.3 L Urine Creatinine 04/18/20 04/18/20 04/19/20 16:33 20:09 04:43 WBC 11.1 H RBC Hgb 9.0 L Hct 28.5 L MCV 77 L MCH 24 L MCHC RDW 21.2 H Plt Count 107 L Lymph % (Auto) Lymph # (Auto) Seg Neutrophils % Seg Neuts % (Manual) 95.0 H Lymphocytes % (Manual) 4.0 L Nucleated RBC % 2.0 H Seg Neutrophils # Seg Neutrophils # Man 10.5 H Lymphocytes # (Manual) 0.4 L PT INR D-Dimer Heparin Anti-Xa Level ABG pH ABG pO2 ABG HCO3 ABG O2 Saturation ABG Base Excess ABG Hemoglobin Sodium Potassium Chloride Carbon Dioxide BUN Creatinine Glucose POC Glucose 230 H 244 H Lactic Acid Calcium Phosphorus Magnesium Total Bilirubin Direct Bilirubin AST ALT Alkaline Phosphatase Lactate Dehydrogenase Troponin T C-Reactive Protein NT-Pro-B Natriuret Pep Total Protein Albumin Urine Creatinine 04/19/20 04/19/20 04/19/20 04:43 08:00 12:43 WBC RBC Hgb Hct MCV MCH MCHC RDW Plt Count Lymph % (Auto) Lymph # (Auto) Seg Neutrophils % Seg Neuts % (Manual) Lymphocytes % (Manual) Nucleated RBC % Seg Neutrophils # Seg Neutrophils # Man Lymphocytes # (Manual) PT INR D-Dimer Heparin Anti-Xa Level ABG pH ABG pO2 ABG HCO3 ABG O2 Saturation ABG Base Excess ABG Hemoglobin Sodium Potassium 3.4 L Chloride Carbon Dioxide BUN 110 H Creatinine 2.6 H Glucose 215 H POC Glucose 175 H 226 H Lactic Acid Calcium 8.3 L Phosphorus Magnesium Total Bilirubin Direct Bilirubin AST ALT 126 H Alkaline Phosphatase 140 H Lactate Dehydrogenase Troponin T C-Reactive Protein NT-Pro-B Natriuret Pep Total Protein 5.8 L Albumin 3.2 L Urine Creatinine 04/19/20 04/19/20 04/20/20 16:53 20:18 06:58 WBC RBC 3.63 L Hgb 8.7 L Hct 27.9 L MCV 77 L MCH 24 L MCHC 31 L RDW 21.1 H Plt Count 92 L Lymph % (Auto) Lymph # (Auto) Seg Neutrophils % Seg Neuts % (Manual) 91.0 H Lymphocytes % (Manual) 2.0 L Nucleated RBC % Seg Neutrophils # Seg Neutrophils # Man 8.1 H Lymphocytes # (Manual) 0.2 L PT INR D-Dimer Heparin Anti-Xa Level ABG pH ABG pO2 ABG HCO3 ABG O2 Saturation ABG Base Excess ABG Hemoglobin Sodium Potassium Chloride Carbon Dioxide BUN Creatinine Glucose POC Glucose 246 H 254 H Lactic Acid Calcium Phosphorus Magnesium Total Bilirubin Direct Bilirubin AST ALT Alkaline Phosphatase Lactate Dehydrogenase Troponin T C-Reactive Protein NT-Pro-B Natriuret Pep Total Protein Albumin Urine Creatinine 04/20/20 04/20/20 04/20/20 06:58 08:32 10:57 WBC RBC Hgb Hct MCV MCH MCHC RDW Plt Count Lymph % (Auto) Lymph # (Auto) Seg Neutrophils % Seg Neuts % (Manual) Lymphocytes % (Manual) Nucleated RBC % Seg Neutrophils # Seg Neutrophils # Man Lymphocytes # (Manual) PT INR D-Dimer Heparin Anti-Xa Level ABG pH ABG pO2 ABG HCO3 ABG O2 Saturation ABG Base Excess ABG Hemoglobin Sodium Potassium 3.5 L Chloride 108.9 H Carbon Dioxide BUN 96 H Creatinine 2.0 H Glucose 318 H POC Glucose 293 H 275 H Lactic Acid Calcium Phosphorus Magnesium Total Bilirubin Direct Bilirubin AST ALT Alkaline Phosphatase Lactate Dehydrogenase Troponin T C-Reactive Protein NT-Pro-B Natriuret Pep Total Protein Albumin Urine Creatinine 04/20/20 04/21/20 04/21/20 15:26 04:48 04:48 WBC RBC Hgb 9.1 L Hct 29.5 L MCV 78 L MCH 24 L MCHC 31 L RDW 21.2 H Plt Count 98 L Lymph % (Auto) 3.1 L Lymph # (Auto) 0.3 L Seg Neutrophils % 88.4 H Seg Neuts % (Manual) Lymphocytes % (Manual) Nucleated RBC % Seg Neutrophils # 9.0 H Seg Neutrophils # Man Lymphocytes # (Manual) PT INR D-Dimer Heparin Anti-Xa Level ABG pH ABG pO2 ABG HCO3 ABG O2 Saturation ABG Base Excess ABG Hemoglobin Sodium 148 H Potassium Chloride 111.9 H Carbon Dioxide BUN 85 H Creatinine 1.8 H Glucose 213 H POC Glucose 124 H Lactic Acid Calcium Phosphorus Magnesium Total Bilirubin Direct Bilirubin AST ALT Alkaline Phosphatase Lactate Dehydrogenase Troponin T C-Reactive Protein NT-Pro-B Natriuret Pep Total Protein Albumin Urine Creatinine 04/21/20 04/21/20 04/21/20 07:58 11:07 16:36 WBC RBC Hgb Hct MCV MCH MCHC RDW Plt Count Lymph % (Auto) Lymph # (Auto) Seg Neutrophils % Seg Neuts % (Manual) Lymphocytes % (Manual) Nucleated RBC % Seg Neutrophils # Seg Neutrophils # Man Lymphocytes # (Manual) PT INR D-Dimer Heparin Anti-Xa Level ABG pH ABG pO2 ABG HCO3 ABG O2 Saturation ABG Base Excess ABG Hemoglobin Sodium Potassium Chloride Carbon Dioxide BUN Creatinine Glucose POC Glucose 177 H 149 H 248 H Lactic Acid Calcium Phosphorus Magnesium Total Bilirubin Direct Bilirubin AST ALT Alkaline Phosphatase Lactate Dehydrogenase Troponin T C-Reactive Protein NT-Pro-B Natriuret Pep Total Protein Albumin Urine Creatinine 04/21/20 04/22/20 04/22/20 21:54 04:05 04:05 WBC 11.9 H RBC Hgb 8.9 L Hct 29.0 L MCV 78 L MCH 24 L MCHC 31 L RDW 21.8 H Plt Count 100 L Lymph % (Auto) 8.1 L Lymph # (Auto) 1.0 L Seg Neutrophils % 84.2 H Seg Neuts % (Manual) Lymphocytes % (Manual) Nucleated RBC % Seg Neutrophils # 10.0 H Seg Neutrophils # Man Lymphocytes # (Manual) PT INR D-Dimer Heparin Anti-Xa Level ABG pH ABG pO2 ABG HCO3 ABG O2 Saturation ABG Base Excess ABG Hemoglobin Sodium 148 H Potassium Chloride 114.8 H Carbon Dioxide BUN 78 H Creatinine 1.6 H Glucose POC Glucose 118 H Lactic Acid Calcium Phosphorus Magnesium Total Bilirubin Direct Bilirubin AST ALT Alkaline Phosphatase Lactate Dehydrogenase Troponin T C-Reactive Protein NT-Pro-B Natriuret Pep Total Protein Albumin Urine Creatinine 04/22/20 04/23/20 04/23/20 20:59 06:55 08:17 WBC RBC Hgb Hct MCV MCH MCHC RDW Plt Count Lymph % (Auto) Lymph # (Auto) Seg Neutrophils % Seg Neuts % (Manual) Lymphocytes % (Manual) Nucleated RBC % Seg Neutrophils # Seg Neutrophils # Man Lymphocytes # (Manual) PT INR D-Dimer Heparin Anti-Xa Level ABG pH ABG pO2 ABG HCO3 ABG O2 Saturation ABG Base Excess ABG Hemoglobin Sodium Potassium 5.2 H D Chloride 113.4 H Carbon Dioxide BUN 69 H Creatinine 1.4 H Glucose 167 H POC Glucose 148 H 165 H Lactic Acid Calcium 8.1 L Phosphorus Magnesium Total Bilirubin Direct Bilirubin AST ALT Alkaline Phosphatase Lactate Dehydrogenase Troponin T C-Reactive Protein NT-Pro-B Natriuret Pep Total Protein Albumin Urine Creatinine 04/23/20 11:07 WBC RBC Hgb Hct MCV MCH MCHC RDW Plt Count Lymph % (Auto) Lymph # (Auto) Seg Neutrophils % Seg Neuts % (Manual) Lymphocytes % (Manual) Nucleated RBC % Seg Neutrophils # Seg Neutrophils # Man Lymphocytes # (Manual) PT INR D-Dimer Heparin Anti-Xa Level ABG pH ABG pO2 ABG HCO3 ABG O2 Saturation ABG Base Excess ABG Hemoglobin Sodium Potassium Chloride Carbon Dioxide BUN Creatinine Glucose POC Glucose 151 H Lactic Acid Calcium Phosphorus Magnesium Total Bilirubin Direct Bilirubin AST ALT Alkaline Phosphatase Lactate Dehydrogenase Troponin T C-Reactive Protein NT-Pro-B Natriuret Pep Total Protein Albumin Urine Creatinine
[2020-04-23] MEDS: INSULIN GLARGINE 100 UNITS/ML SUB-Q SCH (22:20)
[2020-04-23] MEDS: ACETAMINOPHEN 325 MG TAB PO PRN (23:13)
[2020-04-24 05:53] LABS: Albumin 2.6 g/dL (3.9-5)
[2020-04-24] MEDS: BUDESONIDE 0.5 MG/2 ML NEBU IH SCH ×2 (07:39→21:46)
[2020-04-24] MEDS: ARFORMOTEROL 15 MCG/2 ML NEBU IH SCH ×2 (07:40→21:46)
--- NOTE | 2020-04-24 09:55 | XRay Report ---
CHEST 1 VIEW 04/24/2020 9:42 AM INDICATION / CLINICAL INFORMATION: CHF. COMPARISON: 04/19/2020 FINDINGS: SUPPORT DEVICES: None. HEART / MEDIASTINUM: Stable cardiomegaly. LUNGS / PLEURA: Increasing moderate left pleural effusion. Worsening interstitial edema. No pneumotho rax. ADDITIONAL FINDINGS: No significant additional findings. IMPRESSION: 1. Worsening interstitial edema with increasing moderate left pleural effusion since 04/19/2020 Signer Name: Jacinto Lawson MD Signed: 04/24/2020 9:50 AM Workstation Name: [id number]
[2020-04-24] MEDS: METOPROLOL TARTRATE 100 MG TAB PO SCH ×2 (09:57→21:34)
[2020-04-24] MEDS: APIXABAN 2.5 MG TAB PO SCH ×2 (09:57→21:36)
[2020-04-24] MEDS: TAMSULOSIN 0.4 MG CAP PO SCH (09:57)
[2020-04-24] MEDS: INSULIN LISPRO 100 UNIT/ML VIAL 3 mL SUB-Q SCH ×4 (09:58→21:33)
--- NOTE | 2020-04-24 09:59 | Progress Note ---
Assessment and Plan Assessment and plan: ---Acute respiratory failure Current Visit: Yes Status: Acute Plan to address problem: Slightly improving but still needs oxygen to maintain sats. CT chest x-ray ordered Has no pneumonia and no sepsis. Continue oxygen supplementation COVID-19 test negative --Acute on chronic systolic CHF (congestive heart failure) Current Visit: Yes Status: Acute Plan to address problem: Holding Lasix due to KIRT Will monitor daily weight, inputs and outputs. Monitor renal function closely Cardiology on board --KIRT (acute kidney injury) Current Visit: Yes Status: Acute Plan to address problem: Creatinine stable at 3.1 Discontinued Lasix. Vasomotor nephropathy Nephrology following --Colitis Current Visit: Yes Status: Acute Plan to address problem: Resolved GI recommendations appreciated --Arrhythmias-atrial fibrillation versus nonsustained ventricular tachycardia Current Visit: Yes Status: Acute Plan to address problem: Initially started on amiodarone but discontinued due to elevated LFTs Now on metoprolol every 6 and rate is currently controlled. Started on low-dose apixaban 2.5 mg twice daily Cardiology recommendations appreciated --Diabetes mellitus type 2 in nonobese Current Visit: No Status: Acute Plan to address problem: Lantus and sliding scale insulin. --Hyperkalemia and metabolic acidosis Current Visit: Yes Status: Acute Plan to address problem: Resolved --T12 compression fracture Current Visit: No Status: Likely chronic Plan to address problem: CT abdomen showed acute appearing T12 compression fracture 04/14. MRI thoracic without contrast ordered to further evaluate. 04/15. Patient is agitated and unable to get an MRI. 04/16. Awaiting MRI without contrast thoracic. Plan to use sedatives today. Informed RN. If positive for acute fracture, patient will need to be transferred for neurosurgery evaluation. 04/17. MRI thoracic and lumbar showed acute T12 compression fracture. Discussed case with [facility] neurosurgery business operations director who advised no acute intervention is necessary at this time-advised TLSO brace when patient is sitting or ambulatory. He will need follow-up with Dr. Dalton Jack, Dr. Alan Henson, Dr. Tyson Clark [contact number [phone]] after discharge. ---Elevated LFTs Current Visit: Yes Status: Acute Plan to address problem: Improving US abdomen shows no acute pathology ---Infrarenal aortic aneurysm Current Visit: No Status: Acute Plan to address problem: 3.8 cm in diameter Needs to follow-up with vascular surgery at discharge for monitoring -Anemia and thrombocytopenia Current Visit: No Status: Acute Plan to address problem: Monitor platelets ?HIT - Hold heparin for now Peripheral smear reviewed - target cells, tear drops. Hematology consulted -- DVT prophylaxis Current Visit: No Status: Acute Plan to address problem: Hold heparin for now. Started on anticoagulation per cardiology. HIT antibody sent --Full code status Current Visit: No Status: Acute Disposition-home with hospice as per patient son plan stable 04/11. Patient seen and examined at bedside this morning. Patient is on BiPAP. Patient is eager to go home. Otherwise denies any chest pain or palpitations. Patient CT showed possible compression fracture of T12, it is unknown if this is new. We will get MRI without contrast of the thoracic and lumbar to further evaluate. If patient actually has an acute compression fracture, he will need to have a neurosurgery evaluation so will need to be transferred to another facility for this. Otherwise, patient continue to monitor patient's respiratory status while in the IMCU. Patient reportedly failed a swallow evaluation and will need to have an NG tube placement. Tried to call son on number provided in the chart and left a message. Awaiting callback. Labs reviewed-patient has elevated inflammatory [id number], LDH. COVID-19 test has been ordered. Started patient on steroids. Ordered stat BMP, ABG, D-dimer, proBNP, ferritin, LDH. 04/12. COVID -19 test is negative. His breathing has improved so was placed on nasal cannula. Cardiology adjusted meds today. He failed swallow evaluation yesterday. He requests for food. Will reattempt swallow evaluation. Speech therapy consult. 04/13. Overnight, he developed VT and was started on amiodarone. HR better this AM. Cardiology will review medications. Patient seen and examined at bedside this AM. He requests for food. He failed a repeat speech evaluation and will need barium swallow. May need PEG placement if he fails. NG tube in place. Vitals reviewed 04/14. Heart rate improved. Remains n.p.o. with NG tube feeds. Video swallow evaluation shows mild abnormal study. Speech therapist to see patient. Patient has not been able to have an MRI of the back due to agitation. He had a CT during the admission that showed possible compression fracture of T12 but this has not been fully evaluated due to patient's ongoing conditions. Labs reviewed-renal function is worse. Discontinue Lasix. 04/15. Has been started on a diet and is tolerating. He pulled out his NG tube last night. Okay to leave NG tube for now. Plan to get an MRI performed today with sedative to evaluate T12 fracture. Patient denies any back pain. Renal function slightly improved today after Lasix was discontinued. Continue IV hydration. Nephrology recommendations appreciated 04/16. He feels better today. MRI could not be done yesterday. Hopefully patient can have an MRI done today. Creatinine 3.1 today. Patient will need placement but will need to have evaluation of possible T12 fracture prior to discharge 04/17. MRI thoracic and lumbar showed acute T12 compression fracture. Discussed case with [facility] neurosurgery business operations director who advised no acute intervention is necessary at this time-advised TLSO brace when patient is sitting or ambulatory. He will need follow-up with Dr. Dalton Jack, Dr. Alan Henson, Dr. Tyson Clark [contact number [phone]] after discharge. 04/18. Await Nephrology recs for d/c plans 04/19/2020. Patient reportedly with choking/coughing with swallowing. We will change to n.p.o. status right now. Speech reevaluation. Check chest x-ray to rule out aspiration pneumonia. Await nephrology recommendations for discharge. Creatinine slowly improving. CT of abdomen negative for hydronephrosis. BUN increasing. Therefore, we will check Hemoccult of stool to rule out GI bleed. Hemoglobin has been stable. 04/20/2020. Repeat chest x-ray reveals worsening bibasilar opacities. Pulmonary consulted. Doppler of left upper extremity for swelling. PT evaluation recommends subacute rehab 04/21/2020. Await pulmonary consultation for worsening bibasilar opacities. Doppler of left upper extremity pending. PT evaluation recommends subacute rehab. Creatinine has improved to near baseline of 1.8. Nephrology following 04/22/2020. Pulmonary sees no need for antibiotics or further evaluation of bibasilar opacities with CT scan. Continue current COPD treatment. Beta blockers increase for A. fib per cardiology. Await Doppler left upper extremity. PT evaluation recommends subacute rehab but case management reports patient's son Haseeb [phone]. Haseeb wants patient to return home with [facility]. 04/23/2020. Continue beta-blockers for atrial fibrillation per cardiology. Await left upper extremity Doppler ultrasound for left upper extremity swelling. PT evaluation recommends subacute rehab but case management reports patient's son Haseeb [phone]. Haseeb wants patient to return home with [facility]. Creatinine appears to be improved to baseline. Anticipate discharge in the next 1 to 2 days. 04/24/2020. Continue beta-blockers for atrial fibrillation per cardiology. Await left upper extremity Doppler ultrasound for left upper extremity swelling. Haseeb (son [phone]) wants patient to return home with [facility]. Creatinine appears to be improved to baseline. Patient now with hypernatremia. ?Tenuous IV fluid hydration--defer to nephrology. History Interval history: Patient with left upper extremity swelling. Hospitalist Physical - Constitutional Vitals: Temp Pulse Resp BP Pulse Ox 97.8 F 60 18 101/52 95 04/24/20 07:30 04/24/20 07:35 04/24/20 07:35 04/24/20 07:30 04/24/20 08:36 General appearance: Present: no acute distress - EENT Eyes: Present: PERRL, EOM intact ENT: hearing intact, clear oral mucosa, dentition normal - Neck Neck: Present: supple, normal ROM - Respiratory Respiratory effort: normal Respiratory: bilateral: CTA - Cardiovascular Rhythm: regular Heart Sounds: Present: S1 & S2. Absent: gallop, rub - Extremities Extremities: no ischemia, No edema, Full ROM - Abdominal General gastrointestinal: soft, non-tender, non-distended, normal bowel sounds - Integumentary Integumentary: Present: clear, warm, dry - Neurologic Neurologic: CNII-XII intact, moves all extremities HEART Score - HEART Score Troponin: Troponin T 0.081 ng/mL (0.00-0.029) H 04/10/20 20:04 Results - Labs CBC & Chem 7: 04/22/20 04:05 04/24/20 04:37 Labs: Laboratory Last Values WBC 11.9 K/mm3 (4.5-11.0) H 04/22/20 04:05 RBC 3.74 M/mm3 (3.65-5.03) 04/22/20 04:05 Hgb 8.9 gm/dl (11.8-15.2) L 04/22/20 04:05 Hct 29.0 % (35.5-45.6) L 04/22/20 04:05 MCV 78 fl (84-94) L 04/22/20 04:05 MCH 24 pg (28-32) L 04/22/20 04:05 MCHC 31 % (32-34) L 04/22/20 04:05 RDW 21.8 % (13.2-15.2) H 04/22/20 04:05 Plt Count 100 K/mm3 (140-440) L 04/22/20 04:05 Lymph % (Auto) 8.1 % (13.4-35.0) L 04/22/20 04:05 Wells % (Auto) 5.6 % (0.0-7.3) 04/22/20 04:05 Eos % (Auto) 1.8 % (0.0-4.3) 04/22/20 04:05 Baso % (Auto) 0.3 % (0.0-1.8) 04/22/20 04:05 Lymph # (Auto) 1.0 K/mm3 (1.2-5.4) L 04/22/20 04:05 Wells # (Auto) 0.7 K/mm3 (0.0-0.8) 04/22/20 04:05 Eos # (Auto) 0.2 K/mm3 (0.0-0.4) 04/22/20 04:05 Baso # (Auto) 0.0 K/mm3 (0.0-0.1) 04/22/20 04:05 Add Manual Diff Complete 04/20/20 06:58 Total Counted 100 04/20/20 06:58 Seg Neutrophils % 84.2 % (40.0-70.0) H 04/22/20 04:05 Seg Neuts % (Manual) 91.0 % (40.0-70.0) H 04/20/20 06:58 Band Neutrophils % 0 % 04/20/20 06:58 Lymphocytes % (Manual) 2.0 % (13.4-35.0) L 04/20/20 06:58 Reactive Lymphs % (Man) 0 % 04/20/20 06:58 Monocytes % (Manual) 7.0 % (0.0-7.3) 04/20/20 06:58 Eosinophils % (Manual) 0 % (0.0-4.3) 04/20/20 06:58 Basophils % (Manual) 0 % (0.0-1.8) 04/20/20 06:58 Metamyelocytes % 0 % 04/20/20 06:58 Myelocytes % 0 % 04/20/20 06:58 Promyelocytes % 0 % 04/20/20 06:58 Blast Cells % 0 % 04/20/20 06:58 Nucleated RBC % Not Reportable 04/20/20 06:58 Seg Neutrophils # 10.0 K/mm3 (1.8-7.7) H 04/22/20 04:05 Seg Neutrophils # Man 8.1 K/mm3 (1.8-7.7) H 04/20/20 06:58 Band Neutrophils # 0.0 K/mm3 04/20/20 06:58 Lymphocytes # (Manual) 0.2 K/mm3 (1.2-5.4) L 04/20/20 06:58 Abs React Lymphs (Man) 0.0 K/mm3 04/20/20 06:58 Monocytes # (Manual) 0.6 K/mm3 (0.0-0.8) 04/20/20 06:58 Eosinophils # (Manual) 0.0 K/mm3 (0.0-0.4) 04/20/20 06:58 Basophils # (Manual) 0.0 K/mm3 (0.0-0.1) 04/20/20 06:58 Metamyelocytes # 0.0 K/mm3 04/20/20 06:58 Myelocytes # 0.0 K/mm3 04/20/20 06:58 Promyelocytes # 0.0 K/mm3 04/20/20 06:58 Blast Cells # 0.0 K/mm3 04/20/20 06:58 WBC Morphology Not Reportable 04/20/20 06:58 Hypersegmented Neuts Not Reportable 04/20/20 06:58 Hyposegmented Neuts Not Reportable 04/20/20 06:58 Hypogranular Neuts Not Reportable 04/20/20 06:58 Smudge Cells Not Reportable 04/20/20 06:58 Toxic Granulation Not Reportable 04/20/20 06:58 Toxic Vacuolation Not Reportable 04/20/20 06:58 Dohle Bodies Not Reportable 04/20/20 06:58 Pelger-Huet Anomaly Not Reportable 04/20/20 06:58 Barby Rods Not Reportable 04/20/20 06:58 Platelet Estimate Consistent w auto 04/20/20 06:58 Clumped Platelets Not Reportable 04/20/20 06:58 Plt Clumps, EDTA Not Reportable 04/20/20 06:58 Large Platelets Not Reportable 04/20/20 06:58 Giant Platelets Not Reportable 04/20/20 06:58 Platelet Satelliting Not Reportable 04/20/20 06:58 Plt Morphology Comment Not Reportable 04/20/20 06:58 RBC Morphology Not Reportable 04/20/20 06:58 Dimorphic RBCs Not Reportable 04/20/20 06:58 Polychromasia Not Reportable 04/20/20 06:58 Hypochromasia 2+ 04/20/20 06:58 Poikilocytosis Not Reportable 04/20/20 06:58 Anisocytosis 1+ 04/20/20 06:58 Microcytosis Not Reportable 04/20/20 06:58 Macrocytosis Not Reportable 04/20/20 06:58 Spherocytes Not Reportable 04/20/20 06:58 Pappenheimer Bodies Not Reportable 04/20/20 06:58 Sickle Cells Not Reportable 04/20/20 06:58 Target Cells Not Reportable 04/20/20 06:58 Tear Drop Cells Not Reportable 04/20/20 06:58 Ovalocytes Not Reportable 04/20/20 06:58 Helmet Cells Not Reportable 04/20/20 06:58 Snell-[place] Bodies Not Reportable 04/20/20 06:58 Eaton Rings Not Reportable 04/20/20 06:58 Winfield Cells Not Reportable 04/20/20 06:58 Bite Cells Not Reportable 04/20/20 06:58 Crenated Cell Not Reportable 04/20/20 06:58 Elliptocytes Not Reportable 04/20/20 06:58 Acanthocytes (Spur) Not Reportable 04/20/20 06:58 Rouleaux Not Reportable 04/20/20 06:58 Hemoglobin C Crystals Not Reportable 04/20/20 06:58 Schistocytes Not Reportable 04/20/20 06:58 Malaria parasites Not Reportable 04/20/20 06:58 Willie Bodies Not Reportable 04/20/20 06:58 Hem Pathologist Commnt No 04/20/20 06:58 PT 15.5 Sec. (12.2-14.9) H 04/12/20 06:22 INR 1.21 (0.87-1.13) H 04/12/20 06:22 D-Dimer 2029.09 ng/mlDDU (0-234) H 04/11/20 15:11 Heparin Anti-Xa Level 0.35 U.I./ml (0.3-0.7) 04/13/20 05:06 Heparin Anti-Xa, Unfract Negative (Negative) 04/17/20 22:45 ABG pH 7.505 pH Units (7.350-7.450) H 04/17/20 10:30 ABG pCO2 25.2 mm Hg 04/17/20 10:30 ABG pO2 157.9 mm Hg (80.0-90.0) H 04/17/20 10:30 ABG HCO3 19.4 mmol/L (20.0-26.0) L 04/17/20 10:30 ABG O2 Saturation 99.1 % (95.0-99.0) H 04/17/20 10:30 ABG O2 Content 12.7 (0.0-44) 04/17/20 10:30 ABG Base Excess -2.8 mmol/L (-2.0-3.0) L 04/17/20 10:30 ABG Hemoglobin 9.1 gm/dl (14.0-18.0) L 04/17/20 10:30 ABG Carboxyhemoglobin 1.6 % (0.0-5.0) 04/17/20 10:30 ABG Methemoglobin 0.4 % (0.0-1.5) 04/17/20 10:30 Oxyhemoglobin 97.0 % (95.0-99.0) 04/17/20 10:30 FiO2 35 % 04/17/20 10:30 Sodium 150 mmol/L (137-145) H 04/24/20 04:37 Potassium 4.0 mmol/L (3.6-5.0) D 04/24/20 04:37 Chloride 115.2 mmol/L (98-107) H 04/24/20 04:37 Carbon Dioxide 23 mmol/L (22-30) 04/24/20 04:37 Anion Gap 16 mmol/L 04/24/20 04:37 BUN 69 mg/dL (9-20) H 04/24/20 04:37 Creatinine 1.7 mg/dL (0.8-1.3) H 04/24/20 04:37 Estimated GFR 40 ml/min 04/24/20 04:37 BUN/Creatinine Ratio 41 % 04/24/20 04:37 Glucose 146 mg/dL (75-100) H 04/24/20 04:37 POC Glucose 112 mg/dL (70-105) H 04/24/20 07:32 Lactic Acid 3.00 mmol/L (0.7-2.0) H* 04/12/20 06:22 Calcium 8.0 mg/dL (8.4-10.2) L 04/24/20 04:37 Phosphorus 5.60 mg/dL (2.5-4.5) H 04/10/20 22:50 Magnesium 2.40 mg/dL (1.7-2.3) H 04/10/20 22:50 Ferritin 135.1 ng/mL (30.0-300.0) 04/11/20 15:11 Total Bilirubin 1.50 mg/dL (0.1-1.2) H 04/24/20 04:37 Direct Bilirubin 0.6 mg/dL (0-0.2) H 04/15/20 04:56 Indirect Bilirubin 0.3 mg/dL 04/15/20 04:56 AST 20 units/L (5-40) 04/24/20 04:37 ALT 45 units/L (7-56) 04/24/20 04:37 Alkaline Phosphatase 120 units/L (35-129) 04/24/20 04:37 Lactate Dehydrogenase 664 units/L (91-180) H 04/10/20 20:51 Troponin T 0.081 ng/mL (0.00-0.029) H 04/10/20 20:04 C-Reactive Protein 5.60 mg/dL (0.00-1.30) H 04/10/20 20:51 NT-Pro-B Natriuret Pep > 02931 pg/mL (0-900) H 04/11/20 15:11 Total Protein 5.5 g/dL (6.3-8.2) L 04/24/20 04:37 Albumin 2.6 g/dL (3.9-5) L 04/24/20 04:37 Albumin/Globulin Ratio 0.9 % 04/24/20 04:37 Triglycerides 113 mg/dL (2-149) 04/10/20 20:04 Cholesterol 178 mg/dL (50-199) 04/10/20 20:04 LDL Cholesterol Direct 123 mg/dL (50-130) 04/10/20 20:04 HDL Cholesterol 41 mg/dL (40-59) 04/10/20 20:04 Cholesterol/HDL Ratio 4.34 % 04/10/20 20:04 Procalcitonin 2.47 ng/mL (<0.15) 04/11/20 15:11 TSH 3.640 mlU/mL (0.270-4.200) 04/13/20 10:06 Urine Color Yellow (Yellow) 04/11/20 Unknown Urine Turbidity Clear (Clear) 04/11/20 Unknown Urine pH 5.0 (5.0-7.0) 04/11/20 Unknown Ur Specific [place] 1.009 (1.003-1.030) 04/11/20 Unknown Urine Protein <15 mg/dl mg/dL (Negative) 04/11/20 Unknown Urine Glucose (UA) Neg mg/dL (Negative) 04/11/20 Unknown Urine Ketones Neg mg/dL (Negative) 04/11/20 Unknown Urine Blood Neg (Negative) 04/11/20 Unknown Urine Nitrite Neg (Negative) 04/11/20 Unknown Urine Bilirubin Neg (Negative) 04/11/20 Unknown Urine Urobilinogen < 2.0 mg/dL (<2.0) 04/11/20 Unknown Ur Leukocyte Esterase Neg (Negative) 04/11/20 Unknown Urine WBC (Auto) 1.0 /HPF (0.0-6.0) 04/11/20 Unknown Urine RBC (Auto) 2.0 /HPF (0.0-6.0) 04/11/20 Unknown U Epithel Cells (Auto) < 1.0 /HPF (0-13.0) 04/11/20 Unknown Hyaline Casts 3 /LPF 04/11/20 Unknown Urine Mucus Few /HPF 04/11/20 Unknown Urine Eosinophils None seen (None Seen) 04/11/20 Unknown Urine Creatinine 35.3 mg/dL (0.1-20.0) H 04/11/20 Unknown Urine Sodium 92 mmol/L 04/11/20 Unknown Heparin-induced Plt Ab Negative (Negative) 04/17/20 22:45 UF Heparin High Dose 0 % Release 04/17/20 22:45 CHERYL UFH Low Dose 0.1 0 % Release 04/17/20 22:45 CHERYL UFH Low Dose 0.5 0 % Release 04/17/20 22:45 Coronavirus (PCR) Negative (Negative) 04/11/20 Unknown Hepatitis A IgM Ab Non-reactive (NonReactive) 04/12/20 20: Hep Bs Antigen Non-reactive (Negative) 04/12/20 20:23 Hep B Core IgM Ab Non-reactive (NonReactive) 04/12/20 20:23 Hepatitis C Antibody Non-reactive (NonReactive) 04/12/20 20:23 Gay/IV: Voiding Method Incontinent IV Catheter Type [Right Upper INT / Saline Lock arm] IV Catheter Type [Left Wrist] Peripheral IV IV Catheter Type [Right INT / Saline Lock Forearm] IV Catheter Type [Right Wrist] INT / Saline Lock Active Medications - Current Medications Current Medications: Generic Name Dose Route Start Last Admin Trade Name Freq PRN Reason Stop Dose Admin Acetaminophen 650 mg 04/11/20 01:26 04/23/20 23:13 Tylenol PO 650 mg Q6H PRN Administration Pain MILD(1-3)/Fever >100.5/MANCILLA Lipase/Protease/Amylase 1 each 04/11/20 14:22 Pancreazaddison Saenz 10,500 Unit FEEDTUBE PRN PRN For Clogged Feeding Tube Apixaban 2.5 mg 04/17/20 12:00 04/23/20 22:19 Eliquis PO 2.5 mg Q12HR PRAVIN Administration Protocol Arformoterol Tartrate 15 mcg 04/20/20 20:00 04/24/20 07:40 Brovana Nebu IH 15 mcg Q12HRT PRAVIN Administration Budesonide 0.5 mg 04/20/20 20:00 04/24/20 07:39 Pulmicort IH 0.5 mg Q12HRT PRAVIN Administration Insulin Glargine 10 units 04/16/20 22:00 04/23/20 22:20 Lantus SUB-Q Not Given QHS PRAVIN Insulin Human Lispro 0 unit 04/16/20 16:30 04/23/20 22:20 Humalog SUB-Q Not Given ACHS [facility] Protocol Magnesium Hydroxide 30 ml 04/11/20 01:26 Milk Of Magnesia PO Q4H PRN Constipation Metoprolol Tartrate 100 mg 04/21/20 12:00 04/23/20 22:19 Metoprolol PO 100 mg BID PRAVIN Administration Simple Syrup 15 ml 04/11/20 14:22 Simple Syrup FEEDTUBE PRN PRN Hypoglycemia Simple Syrup 30 ml 04/11/20 14:22 Simple Syrup FEEDTUBE PRN PRN Hypoglycemia Sodium Bicarbonate 325 mg 04/11/20 14:22 Sodium Bicarbonate FEEDTUBE PRN PRN For Clogged Feeding Tube Sodium Chloride 10 ml 04/11/20 10:00 04/23/20 22:20 Sodium Chloride Flush Syringe 10 Ml IV 10 ml BID PRAVIN Administration Sodium Chloride 10 ml 04/11/20 01:26 Sodium Chloride Flush Syringe 10 Ml IV PRN PRN LINE FLUSH Tamsulosin HCl 0.4 mg 04/22/20 20:00 04/23/20 09:57 Flomax PO 0.4 mg QDAY PRAVIN Administration Nutrition/Malnutrition Assess - Dietary Evaluation Nutrition/Malnutrition Findings: Nutrition Notes Start: 04/11/20 13:41 Freq: Status: Active Protocol: Document 04/21/20 10:20 LM (Rec: 04/21/20 10:25 LM [email or web address]) Nutrition Notes Initial or Follow up Reassessment Current Diagnosis Acute Kidney Injury,COPD, Coronary Artery Disease, Diabetes,Hypertension,Heart Failure Other Pertinent Diagnosis NE, Crohn's disease, seizure, colitis Current Diet Pureed w/ nectar liq Labs/Tests BUN 85 Cr 1.8 BG 213 Na 148 Pertinent Medications Reviewed Height 5 ft 7 in Weight 67.8 kg [place] Body Weight (kg) 67.27 BMI 23.3 Weight change and time frame Wt change noted. Pt has edema Subjective/Other Information [employer] recommends pureed diet with nectar liq. Pt's tray was untouched this AM. Switched Glucerna to Nepro. Percent of energy/protein needs met: 0%/0% Burn Absent Trauma Absent Difficulty In Swallowing,Chewing Current % PO Negligible Minimum of two criteria No #1 Nutrition Diagnosis Inadequate oral intake Diagnosis Progress(for reassessment Continues documentation) Is patient on ventilator? No Is Patient Ambulatory and/or Out of Bed No REE-([facility]-confined to bed) 1663.290 Calculation Used for Recommendations [facility] Additional Notes Protein Needs: 52-78 g (0.8-1. 2 g/kg) Fluid Needs: 1 mL/kcal Nutrition Intervention Change Diet Order: Pureed or restart Enteral nutritionof pt continues to eat less than 50% Add Supplement/Snack (indicate name/kcal Nepro daily /protein ) Provides kCal: 425 Provides Protein (gm) 19 Goal #1 Meet at least 75% of energy an protein needs Anticipated Discharge Needs: Unable to determine at this time Follow-Up By: 04/24/20 Additional Comments F/U for intakes
--- NOTE | 2020-04-24 10:22 | Progress Note ---
Assessment and Plan Chronic systolic heart failure LVEF 15-20% by echo 01/2020 VQ scan reports a low probability for PE. COVID 19 test was negative Paroxysmal Atrial fibrillation vs flutter on metoprolol for suppression initiated on low dose Eliquis due to patient's low body weight of 64 kg and evidence of chronic anemia. Hx of Ischemic cardiomyopathy noncompliant with outpatient cardiac follow up. Hx of CAD Abdominal pain CT scan of the abdomen suggestive of colitis. Renal insufficiency Continue medical therapy for paroxysmal atrial fibrillation, systolic heart failure and coronary artery disease as tolerated. Subjective Date of service: 04/24/20 Principal diagnosis: CHF Interval history: No interval cardiac changes. Afib with a well controlled ventricular rate on telemetry. Objective Vital Signs Temp Pulse Pulse Resp Resp BP BP 04/24/20 09:57 101/52 04/24/20 08:36 04/24/20 07:35 60 18 04/24/20 07:30 97.8 F 59 L 20 101/52 04/24/20 03:07 97.5 F L 56 L 18 95/51 04/23/20 23:13 20 04/23/20 23:12 97.5 F L 60 18 99/42 04/23/20 23:00 18 04/23/20 22:19 79 123/67 04/23/20 22:00 56 L 04/23/20 19:09 98.2 F 79 18 123/67 04/23/20 17:50 04/23/20 17:49 77 22 04/23/20 11:51 98.2 F 76 16 118/74 Pulse Ox 04/24/20 09:57 04/24/20 08:36 95 04/24/20 07:35 04/24/20 07:30 93 04/24/20 03:07 95 04/23/20 23:13 04/23/20 23:12 98 04/23/20 23:00 98 04/23/20 22:19 04/23/20 22:00 04/23/20 19:09 93 04/23/20 17:50 97 04/23/20 17:49 04/23/20 11:51 97 - Physical Examination General: No Apparent Distress, Cachectic HEENT: Positive: PERRL Neck: Positive: trachea midline Cardiac: Positive: irregularly irregular Neuro: Positive: Weakness Extremities: Absent: edema - Labs and Meds Cardiac Enzymes 04/24/20 Range/Units 04:37 AST 20 (5-40) units/L Comprehensive Metabolic Panel 04/24/20 Range/Units 04:37 Sodium 150 H (137-145) mmol/L Potassium 4.0 D (3.6-5.0) mmol/L Chloride 115.2 H (98-107) mmol/L Carbon Dioxide 23 (22-30) mmol/L BUN 69 H (9-20) mg/dL Creatinine 1.7 H (0.8-1.3) mg/dL Glucose 146 H (75-100) mg/dL Calcium 8.0 L (8.4-10.2) mg/dL AST 20 (5-40) units/L ALT 45 (7-56) units/L Alkaline Phosphatase 120 (35-129) units/L Total Protein 5.5 L (6.3-8.2) g/dL Albumin 2.6 L (3.9-5) g/dL
--- NOTE | 2020-04-24 12:47 | Progress Note ---
Assessment and Plan 1. Acute kidney injury: Vasomotor KIRT superimposed on CKD. CT abdomen negative for hydro. Monitor renal function. Creatinine level slowly improving. Avoid nephrotoxic agents. Meds dosage based on GFR. 2. FEN: Hypernatremia, encourage PO fluids. Hypokalemia, improved, monitor. Anion-gap metabolic acidosis, improved, monitor. Monitor lytes and volume status. 3. Acute hypoxic respiratory failure: Possibly secondary to the CHF and underlying pneumonia. COVID-19 test negative. 4. Chronic CHF: Monitor daily weight, intake and outputs. Followed by Cards. 5. Colitis: Monitor. Seen by GI. 6. Anemia, POA: Monitor. 7. Elevated Transaminases: Improved. 8. DM type 2. 9. HTN: Monitor BP. Subjective: Patient was seen and examined at the bedside. Examination: General appearance: well-developed, appears stated age, on restrains HEENT: ATNC, pupils equal Neck: trachea midline Respiratory: ctab Heart: regular, S1S2, no murmur Gastrointestinal: soft, normoactive bowel sounds, not tender Integumentary: no rash, warm and dry Neurologic: alert, confused Ext: no edema Subjective Date of service: 04/24/20 Principal diagnosis: CHF Objective - Vital Signs Vital signs: Vital Signs - 12hr 04/24/20 04/24/20 04/24/20 03:07 07:30 07:35 Temperature 97.5 F L 97.8 F Pulse Rate 56 L 59 L Pulse Rate [ 60 Posterior Bilateral Throughout] Respiratory 18 20 Rate Respiratory 18 Rate [Posterior Bilateral Throughout] Blood Pressure 95/51 101/52 O2 Sat by Pulse 95 93 Oximetry 04/24/20 04/24/20 08:36 09:57 Temperature Pulse Rate Pulse Rate [ Posterior Bilateral Throughout] Respiratory Rate Respiratory Rate [Posterior Bilateral Throughout] Blood Pressure 101/52 O2 Sat by Pulse 95 Oximetry - Lab 04/22/20 04:05 04/24/20 04:37 Most recent lab results ABG pH 7.505 pH Units (7.350-7.450) H 04/17/20 10:30 ABG pCO2 25.2 mm Hg 04/17/20 10:30 ABG pO2 157.9 mm Hg (80.0-90.0) H 04/17/20 10:30 ABG HCO3 19.4 mmol/L (20.0-26.0) L 04/17/20 10:30 ABG O2 Saturation 99.1 % (95.0-99.0) H 04/17/20 10:30 Calcium 8.0 mg/dL (8.4-10.2) L 04/24/20 04:37 Phosphorus 5.60 mg/dL (2.5-4.5) H 04/10/20 22:50 Magnesium 2.40 mg/dL (1.7-2.3) H 04/10/20 22:50 Urine Creatinine 35.3 mg/dL (0.1-20.0) H 04/11/20 Unknown Urine Sodium 92 mmol/L 04/11/20 Unknown Medications & Allergies - Medications Allergies/Adverse Reactions: Allergies Sulfa (Sulfonamide Antibiotics) Allergy (Verified 07/30/18 17:44) Rash Home Medications: Home Medications Medication Instructions Recorded Confirmed Last Taken Type Gabapentin 300 mg PO BID 09/19/16 04/21/20 09/18/16 History 300 mg Metformin HCl [metFORMIN ER 500 mg PO BIDWM 03/28/17 04/21/20 Unknown History Gastric] AtorvaSTATin 10 mg PO QHS #30 tablet 12/21/17 04/21/20 Unknown Rx Ranolazine ER [Ranexa ER] 500 mg PO BID #60 tablet 12/21/17 04/21/20 Unknown Rx Aspirin 325 mg PO QDAY #30 tablet 01/12/18 04/21/20 04/21/20 Rx Diphenoxylate/Atropine [Lomotil] 1 tab PO Q8H PRN 01/15/18 04/21/20 Unknown History Insulin Lispro [HumaLOG VIAL] See Protocol SQ ACHS 01/15/18 04/21/20 04/21/20 18:46 History Promethazine [Phenergan] 25 mg PO Q4H PRN 01/15/18 04/21/20 Unknown History Albuterol Mdi (or & Nicu Only) 2 puff IH Q4HR PRN #1 inhalation 12/21/18 04/21/20 04/21/20 18:46 Rx [ProAir HFA Inhaler] Furosemide [Lasix TAB] 20 mg PO QDAY #30 tablet 02/03/20 04/21/20 Unknown Rx Metoprolol Xl [Metoprolol 25 mg PO DAILY #60 tablet 02/03/20 04/21/20 04/21/20 18:45 Rx SUCCINATE ER TAB] levETIRAcetam [Keppra TAB] 500 mg PO BID #120 tablet 02/03/20 04/21/20 Unknown Rx levoFLOXacin [Levaquin TAB] 500 mg PO QDAY #5 tablet 02/03/20 04/21/20 Unknown Rx Active Medications: Generic Name Dose Route Start Last Admin Trade Name Freq PRN Reason Stop Dose Admin Acetaminophen 650 mg 04/11/20 01:26 04/23/20 23:13 Tylenol PO 650 mg Q6H PRN Administration Pain MILD(1-3)/Fever >100.5/MANCILLA Lipase/Protease/Amylase 1 each 04/11/20 14:22 Pancreazaddison Saenz 10,500 Unit FEEDTUBE PRN PRN For Clogged Feeding Tube Apixaban 2.5 mg 04/17/20 12:00 04/24/20 09:57 Eliquis PO 2.5 mg Q12HR RPAVIN Administration Protocol Arformoterol Tartrate 15 mcg 04/20/20 20:00 04/24/20 07:40 Brovana Nebu IH 15 mcg Q12HRT PRAVIN Administration Budesonide 0.5 mg 04/20/20 20:00 04/24/20 07:39 Pulmicort IH 0.5 mg Q12HRT PRAVIN Administration Insulin Glargine 10 units 04/16/20 22:00 04/23/20 22:20 Lantus SUB-Q Not Given QHS PRAVIN Insulin Human Lispro 0 unit 04/16/20 16:30 04/24/20 09:58 Humalog SUB-Q Not Given ACHS [facility] Protocol Magnesium Hydroxide 30 ml 04/11/20 01:26 Milk Of Magnesia PO Q4H PRN Constipation Metoprolol Tartrate 100 mg 04/21/20 12:00 04/24/20 09:57 Metoprolol PO 100 mg BID PRAVIN Administration Simple Syrup 15 ml 04/11/20 14:22 Simple Syrup FEEDTUBE PRN PRN Hypoglycemia Simple Syrup 30 ml 04/11/20 14:22 Simple Syrup FEEDTUBE PRN PRN Hypoglycemia Sodium Bicarbonate 325 mg 04/11/20 14:22 Sodium Bicarbonate FEEDTUBE PRN PRN For Clogged Feeding Tube Sodium Chloride 10 ml 04/11/20 10:00 04/24/20 09:57 Sodium Chloride Flush Syringe 10 Ml IV 10 ml BID PRAVIN Administration Sodium Chloride 10 ml 04/11/20 01:26 Sodium Chloride Flush Syringe 10 Ml IV PRN PRN LINE FLUSH Tamsulosin HCl 0.4 mg 04/22/20 20:00 04/24/20 09:57 Flomax PO 0.4 mg QDAY PRAVIN Administration
--- NOTE | 2020-04-24 18:25 | Vascular Lab Report ---
DUPLEX DOPPLER UPPER EXTREMITY VENOUS, LEFT INDICATION / CLINICAL INFORMATION: LUE swelling. TECHNIQUE: Duplex doppler imaging was performed through the veins of the left upper extremity using venous compr ession and other maneuvers. COMPARISON: None available. FINDINGS -- LEFT UPPER EXTREMITY VEINS: INTERNAL JUGULAR: Negative. SUBCLAVIAN: Negative. AXILLARY: Negative. BRACHIAL: Negative. FOREARM: Negative. BASILIC (superficial): Occlusive thrombus is present. ADDITIONAL FINDINGS: None. IMPRESSION: 1. No sonographic evidence for DVT. 2. Superficial thrombophlebitis as above. Signer Name: Waldemar Saxena MD Signed: 04/24/2020 6:21 PM Workstation Name: [id number]
[2020-04-24] MEDS: INSULIN GLARGINE 100 UNITS/ML SUB-Q SCH (21:34)
[2020-04-25] MEDS ORDERED: ONDANSETRON 4 MG/2 ML INJ IV PRN (04:53)
[2020-04-25] MEDS: BUDESONIDE 0.5 MG/2 ML NEBU IH SCH ×2 (08:23→20:21)
[2020-04-25] MEDS: ARFORMOTEROL 15 MCG/2 ML NEBU IH SCH ×2 (08:23→20:21)
[2020-04-25] MEDS: APIXABAN 2.5 MG TAB PO SCH ×2 (09:36→21:23)
[2020-04-25] MEDS: TAMSULOSIN 0.4 MG CAP PO SCH (09:37)
[2020-04-25] MEDS: METOPROLOL TARTRATE 100 MG TAB PO SCH (09:37)
[2020-04-25] MEDS: INSULIN LISPRO 100 UNIT/ML VIAL 3 mL SUB-Q SCH ×4 (09:38→21:22)
--- NOTE | 2020-04-25 10:27 | Progress Note ---
Assessment and Plan 1. Acute kidney injury: Vasomotor KIRT superimposed on CKD. CT abdomen negative for hydro. Monitor renal function. Creatinine level increasing, 2/2 hypotension. Avoid nephrotoxic agents. Meds dosage based on GFR. 2. FEN: Hypernatremia, encourage PO fluids. Hypokalemia, improved, monitor. Anion-gap metabolic acidosis, improved, monitor. Monitor lytes and volume status. 3. Acute hypoxic respiratory failure: Possibly secondary to the CHF and underlying pneumonia. COVID-19 test negative. 4. Hypotension: IV fluids. Monitor BP. 5. Chronic CHF: Monitor daily weight, intake and outputs. Followed by Cards. 6. Colitis: Monitor. Seen by GI. 7. Anemia, POA: Monitor. 8. Elevated Transaminases: Improved. 9. DM type 2. Subjective: Patient was seen and examined at the bedside. Examination: General appearance: well-developed, appears stated age, on restrains HEENT: ATNC, pupils equal Neck: trachea midline Respiratory: ctab Heart: regular, S1S2, no murmur Gastrointestinal: soft, normoactive bowel sounds, not tender Integumentary: no rash, warm and dry Neurologic: somnolent Ext: no edema Subjective Date of service: 04/25/20 Principal diagnosis: CHF Objective - Vital Signs Vital signs: Vital Signs - 12hr 04/24/20 04/25/20 04/25/20 23:44 03:25 07:44 Temperature 97.3 F L 97.8 F 98.1 F Pulse Rate 58 L 55 L 73 Respiratory 18 18 18 Rate Blood Pressure 90/37 103/51 67/40 O2 Sat by Pulse 94 91 92 Oximetry - Lab 04/25/20 Unknown 04/25/20 Unknown Most recent lab results ABG pH 7.505 pH Units (7.350-7.450) H 04/17/20 10:30 ABG pCO2 25.2 mm Hg 04/17/20 10:30 ABG pO2 157.9 mm Hg (80.0-90.0) H 04/17/20 10:30 ABG HCO3 19.4 mmol/L (20.0-26.0) L 04/17/20 10:30 ABG O2 Saturation 99.1 % (95.0-99.0) H 04/17/20 10:30 Calcium 8.0 mg/dL (8.4-10.2) L 04/24/20 04:37 Phosphorus 5.60 mg/dL (2.5-4.5) H 04/10/20 22:50 Magnesium 2.40 mg/dL (1.7-2.3) H 04/10/20 22:50 Urine Creatinine 35.3 mg/dL (0.1-20.0) H 04/11/20 Unknown Urine Sodium 92 mmol/L 04/11/20 Unknown Medications & Allergies - Medications Allergies/Adverse Reactions: Allergies Sulfa (Sulfonamide Antibiotics) Allergy (Verified 07/30/18 17:44) Rash Home Medications: Home Medications Medication Instructions Recorded Confirmed Last Taken Type Gabapentin 300 mg PO BID 09/19/16 04/21/20 09/18/16 History 300 mg Metformin HCl [metFORMIN ER 500 mg PO BIDWM 03/28/17 04/21/20 Unknown History Gastric] AtorvaSTATin 10 mg PO QHS #30 tablet 12/21/17 04/21/20 Unknown Rx Ranolazine ER [Ranexa ER] 500 mg PO BID #60 tablet 12/21/17 04/21/20 Unknown Rx Aspirin 325 mg PO QDAY #30 tablet 01/12/18 04/21/20 04/21/20 Rx Diphenoxylate/Atropine [Lomotil] 1 tab PO Q8H PRN 01/15/18 04/21/20 Unknown History Insulin Lispro [HumaLOG VIAL] See Protocol SQ ACHS 01/15/18 04/21/20 04/21/20 18:46 History Promethazine [Phenergan] 25 mg PO Q4H PRN 01/15/18 04/21/20 Unknown History Albuterol Mdi (or & Nicu Only) 2 puff IH Q4HR PRN #1 inhalation 12/21/18 04/21/20 04/21/20 18:46 Rx [ProAir HFA Inhaler] Furosemide [Lasix TAB] 20 mg PO QDAY #30 tablet 02/03/20 04/21/20 Unknown Rx Metoprolol Xl [Metoprolol 25 mg PO DAILY #60 tablet 02/03/20 04/21/20 04/21/20 18:45 Rx SUCCINATE ER TAB] levETIRAcetam [Keppra TAB] 500 mg PO BID #120 tablet 02/03/20 04/21/20 Unknown Rx levoFLOXacin [Levaquin TAB] 500 mg PO QDAY #5 tablet 02/03/20 04/21/20 Unknown Rx Active Medications: Generic Name Dose Route Start Last Admin Trade Name Freq PRN Reason Stop Dose Admin Acetaminophen 650 mg 04/11/20 01:26 04/23/20 23:13 Tylenol PO 650 mg Q6H PRN Administration Pain MILD(1-3)/Fever >100.5/MANCILLA Lipase/Protease/Amylase 1 each 04/11/20 14:22 Pancreaze 10,500 Unit FEEDTUBE PRN PRN For Clogged Feeding Tube Apixaban 2.5 mg 04/17/20 12:00 04/25/20 09:36 Eliquis PO 2.5 mg Q12HR [facility] Administration Protocol Arformoterol Tartrate 15 mcg 04/20/20 20:00 04/25/20 08:23 Brovana Nebu IH 15 mcg Q12HRT [facility] Administration Budesonide 0.5 mg 04/20/20 20:00 04/25/20 08:23 Pulmicort IH 0.5 mg Q12HRT [facility] Administration Insulin Glargine 10 units 04/16/20 22:00 04/24/20 21:34 Lantus SUB-Q Not Given QHS [facility] Insulin Human Lispro 0 unit 04/16/20 16:30 04/25/20 09:38 Humalog SUB-Q Not Given ACHS [facility] Protocol Magnesium Hydroxide 30 ml 04/11/20 01:26 Milk Of Magnesia PO Q4H PRN Constipation Metoprolol Tartrate 100 mg 04/21/20 12:00 04/25/20 09:37 Metoprolol PO Not Given BID [facility] Ondansetron HCl 4 mg 04/25/20 04:53 04/25/20 05:25 Zofran IV 4 mg Q8H PRN Administration Nausea And Vomiting Simple Syrup 15 ml 04/11/20 14:22 Simple Syrup FEEDTUBE PRN PRN Hypoglycemia Simple Syrup 30 ml 04/11/20 14:22 Simple Syrup FEEDTUBE PRN PRN Hypoglycemia Sodium Bicarbonate 325 mg 04/11/20 14:22 Sodium Bicarbonate FEEDTUBE PRN PRN For Clogged Feeding Tube Sodium Chloride 10 ml 04/11/20 10:00 04/25/20 09:39 Sodium Chloride Flush Syringe 10 Ml IV 10 ml BID PRAVIN Administration Sodium Chloride 10 ml 04/11/20 01:26 Sodium Chloride Flush Syringe 10 Ml IV PRN PRN LINE FLUSH Tamsulosin HCl 0.4 mg 04/22/20 20:00 04/25/20 09:37 Flomax PO 0.4 mg QDAY PRAVIN Administration
--- NOTE | 2020-04-25 11:31 | Progress Note ---
Assessment and Plan Chronic systolic heart failure LVEF 15-20% by echo 01/2020 VQ scan reports a low probability for PE. COVID 19 test was negative Paroxysmal Atrial fibrillation vs flutter on metoprolol for suppression initiated on low dose Eliquis due to patient's low body weight of 64 kg and evidence of chronic anemia. Hx of Ischemic cardiomyopathy noncompliant with outpatient cardiac follow up. Hx of CAD Abdominal pain CT scan of the abdomen suggestive of colitis. Renal insufficiency Continue medical therapy as tolerated. Subjective Date of service: 04/25/20 Principal diagnosis: CHF Interval history: Report of hypotension, systolic of 70 this morning. Patient is alert with confusion. Denies dizziness. Objective Vital Signs Temp Pulse Pulse Pulse Pulse Pulse Resp 04/25/20 07:44 98.1 F 73 18 04/25/20 03:25 97.8 F 55 L 18 04/24/20 23:44 97.3 F L 58 L 18 04/24/20 22:00 58 L 62 62 62 20 04/24/20 21:45 04/24/20 21:44 61 04/24/20 21:34 58 L 04/24/20 19:26 97.6 F 56 L 18 04/24/20 15:54 98.0 F 54 L 20 Resp BP Pulse Ox 04/25/20 07:44 67/40 92 04/25/20 03:25 103/51 91 04/24/20 23:44 90/37 94 04/24/20 22:00 93 04/24/20 21:45 100 04/24/20 21:44 18 04/24/20 21:34 92/45 04/24/20 19:26 108/64 91 04/24/20 15:54 111/61 94 - Physical Examination General: No Apparent Distress, Cachectic HEENT: Positive: PERRL Neck: Positive: trachea midline Cardiac: Positive: Reg Rate and Rhythm Lungs: Positive: Decreased Breath Sounds, Other (coarse) Neuro: Positive: Weakness Extremities: Absent: edema
[2020-04-25] MEDS ORDERED: SODIUM CHLORIDE 0.9% 1000 ML 1,000 ML IV SCH (12:30)
--- NOTE | 2020-04-25 13:57 | Progress Note ---
Assessment and Plan Assessment and plan: ---Acute respiratory failure Current Visit: Yes Status: Acute Plan to address problem: Improved Has no pneumonia and no sepsis. Continue oxygen supplementation COVID-19 test negative --Acute on chronic systolic CHF (congestive heart failure) Current Visit: Yes Status: Acute Plan to address problem: Better Will monitor daily weight, inputs and outputs. Monitor renal function closely Cardiology on board --KIRT (acute kidney injury) Current Visit: Yes Status: Acute Plan to address problem: Cr better --Colitis Current Visit: Yes Status: Acute Plan to address problem: Resolved GI recommendations appreciated --Arrhythmias-atrial fibrillation versus nonsustained ventricular tachycardia Current Visit: Yes Status: Acute Plan to address problem: Initially started on amiodarone but discontinued due to elevated LFTs Now on metoprolol every 6 and rate is currently controlled. Started on low-dose apixaban 2.5 mg twice daily Cardiology recommendations appreciated --Diabetes mellitus type 2 in nonobese Current Visit: No Status: Acute Plan to address problem: Lantus and sliding scale insulin. --Hyperkalemia and metabolic acidosis Current Visit: Yes Status: Acute Plan to address problem: Resolved --T12 compression fracture Current Visit: No Status: Likely chronic Plan to address problem: CT abdomen showed acute appearing T12 compression fracture 04/14. MRI thoracic without contrast ordered to further evaluate. 04/15. Patient is agitated and unable to get an MRI. 04/16. Awaiting MRI without contrast thoracic. Plan to use sedatives today. Informed RN. If positive for acute fracture, patient will need to be transferred for neurosur marleny evaluation. 04/17. MRI thoracic and lumbar showed acute T12 compression fracture. Discussed case with [place] neurosurgery occupational work experience teacher who advised no acute intervention is necessary at this time-advised TLSO brace when patient is sitting or ambulatory. He will need follow-up with Dr. Dalton Jack, Dr. Alan Henson, Dr. Tyson Clark [contact number [phone]] after discharge. ---Elevated LFTs Current Visit: Yes Status: Acute Plan to address problem: Improving US abdomen shows no acute pathology ---Infrarenal aortic aneurysm Current Visit: No Status: Acute Plan to address problem: 3.8 cm in diameter Needs to follow-up with vascular surgery at discharge for monitoring -Anemia and thrombocytopenia Current Visit: No Status: Acute Plan to address problem: Monitor platelets ?HIT - Hold heparin for now Peripheral smear reviewed - target cells, tear drops. Hematology consulted -- DVT prophylaxis Current Visit: No Status: Acute Plan to address problem: Hold heparin for now. Started on anticoagulation per cardiology. HIT antibody sent --Full code status Current Visit: No Status: Acute Disposition-home with hospice as per patient son plan stable 04/11. Patient seen and examined at bedside this morning. Patient is on BiPAP. Patient is eager to go home. Otherwise denies any chest pain or palpitations. Patient CT showed possible compression fracture of T12, it is unknown if this is new. We will get MRI without contrast of the thoracic and lumbar to further evaluate. If patient actually has an acute compression fracture, he will need to have a neurosurgery evaluation so will need to be transferred to another facility for this. Otherwise, patient continue to monitor patient's respiratory status while in the IMCU. Patient reportedly failed a swallow evaluation and will need to have an NG tube placement. Tried to call son on number provided in the chart and left a message. Awaiting callback. Labs reviewed-patient has elevated inflammatory [id number], LDH. COVID-19 test has been ordered. Started patient on steroids. Ordered stat BMP, ABG, D-dimer, proBNP, ferritin, LDH. 04/12. COVID -19 test is negative. His breathing has improved so was placed on nasal cannula. Cardiology adjusted meds today. He failed swallow evaluation yesterday. He requests for food. Will reattempt swallow evaluation. Speech therapy consult. 04/13. Overnight, he developed VT and was started on amiodarone. HR better this AM. Cardiology will review medications. Patient seen and examined at bedside this AM. He requests for food. He failed a repeat speech evaluation and will need barium swallow. May need PEG placement if he fails. NG tube in place. Vitals reviewed 04/14. Heart rate improved. Remains n.p.o. with NG tube feeds. Video swallow evaluation shows mild abnormal study. Speech therapist to see patient. Patient has not been able to have an MRI of the back due to agitation. He had a CT during the admission that showed possible compression fracture of T12 but this has not been fully evaluated due to patient's ongoing conditions. Labs reviewed-renal function is worse. Discontinue Lasix. 04/15. Has been started on a diet and is tolerating. He pulled out his NG tube last night. Okay to leave NG tube for now. Plan to get an MRI performed today with sedative to evaluate T12 fracture. Patient denies any back pain. Renal function slightly improved today after Lasix was discontinued. Continue IV hydration. Nephrology recommendations appreciated 04/16. He feels better today. MRI could not be done yesterday. Hopefully patient can have an MRI done today. Creatinine 3.1 today. Patient will need placement but will need to have evaluation of possible T12 fracture prior to discharge 04/17. MRI thoracic and lumbar showed acute T12 compression fracture. D iscussed case with [place] neurosurgery occupational work experience teacher who advised no acute intervention is necessary at this time-advised TLSO brace when patient is sitting or ambulatory. He will need follow-up with Dr. Dalton Jack, Dr. Alan Henson, Dr. Tyson Clark [contact number [phone]] after discharge. 04/18. Await Nephrology recs for d/c plans 04/19/2020. Patient reportedly with choking/coughing with swallowing. We will change to n.p.o. status right now. Speech reevaluation. Check chest x-ray to rule out aspiration pneumonia. Await nephrology recommendations for discharge. Creatinine slowly improving. CT of abdomen negative for hydronephrosis. BUN increasing. Therefore, we will check Hemoccult of stool to rule out GI bleed. Hemoglobin has been stable. 04/20/2020. Repeat chest x-ray reveals worsening bibasilar opacities. Pulmonary consulted. Doppler of left upper extremity for swelling. PT evaluation recommends subacute rehab 04/21/2020. Await pulmonary consultation for worsening bibasilar opacities. Doppler of left upper extremity pending. PT evaluation recommends subacute rehab. Creatinine has improved to near baseline of 1.8. Nephrology following 04/22/2020. Pulmonary sees no need for antibiotics or further evaluation of bibasilar opacities with CT scan. Continue current COPD treatment. Beta blockers increase for A. fib per cardiology. Await Doppler left upper extremity. PT evaluation recommends subacute rehab but case management reports patient's son Haseeb [phone]. Haseeb wants patient to return home with [facility]. 04/23/2020. Continue beta-blockers for atrial fibrillation per cardiology. Await left upper extremity Doppler ultrasound for left upper extremity swelling. PT evaluation recommends subacute rehab but case management reports patient's son Haseeb [phone]. Haseeb wants patient to return home with [facility]. Creatinine appears to be improved to baseline. Anticipate discharge in the next 1 to 2 days. 04/24/2020. Continue beta-blockers for atrial fibrillation per cardiology. Await left upper extremity Doppler ultrasound for left upper extremity swelling. Haseeb (son [phone]) wants patient to return home with [facility]. Creatinine appears to be improved to baseline. Patient now with hypernatremia. ?Tenuous IV fluid hydration--defer to nephrology. 04/25. Blood pressure low this morning but subsequently improved with slow bolus. Sodium today is 150. Patient is dehydrated and is asking for water to drink. I have discussed with RN to ensure patient gets enough water to help with dehydration. His heart rate is controlled and cardiology has adjusted the medication today due to slight hypotension.-Metoprolol now 25 every 8 hours. He is alert and oriented x3 this morning and is able to make needs known. Check BMP every 8 hours for now. Nephrology following History Interval history: Patient seen and examined at bedside. Has no complaints today Awake and alert Request for water. Patient can have a pured diet with thickened liquids Blood pressure improvement after hypotension this morning. Metoprolol dose has been adjusted by cardiology Hospitalist Physical - Constitutional Vitals: Temp Pulse Resp BP Pulse Ox 98.1 F 73 18 67/40 99 04/25/20 07:44 04/25/20 07:44 04/25/20 07:44 04/25/20 07:44 04/25/20 10:00 General appearance: Present: no acute distress HEART Score - HEART Score Troponin: Troponin T 0.081 ng/mL (0.00-0.029) H 04/10/20 20:04 Results - Labs CBC & Chem 7: 04/26/20 10:13 04/26/20 14:41 Labs: Laboratory Last Values WBC 11.9 K/mm3 (4.5-11.0) H 04/22/20 04:05 RBC 3.74 M/mm3 (3.65-5.03) 04/22/20 04:05 Hgb 8.9 gm/dl (11.8-15.2) L 04/22/20 04:05 Hct 29.0 % (35.5-45.6) L 04/22/20 04:05 MCV 78 fl (84-94) L 04/22/20 04:05 MCH 24 pg (28-32) L 04/22/20 04:05 MCHC 31 % (32-34) L 04/22/20 04:05 RDW 21.8 % (13.2-15.2) H 04/22/20 04:05 Plt Count 100 K/mm3 (140-440) L 04/22/20 04:05 Lymph % (Auto) 8.1 % (13.4-35.0) L 04/22/20 04:05 [place] % (Auto) 5.6 % (0.0-7.3) 04/22/20 04:05 Eos % (Auto) 1.8 % (0.0-4.3) 04/22/20 04:05 Baso % (Auto) 0.3 % (0.0-1.8) 04/22/20 04:05 Lymph # (Auto) 1.0 K/mm3 (1.2-5.4) L 04/22/20 04:05 [place] # (Auto) 0.7 K/mm3 (0.0-0.8) 04/22/20 04:05 Eos # (Auto) 0.2 K/mm3 (0.0-0.4) 04/22/20 04:05 Baso # (Auto) 0.0 K/mm3 (0.0-0.1) 04/22/20 04:05 Add Manual Diff Complete 04/20/20 06:58 Total Counted 100 04/20/20 06:58 Seg Neutrophils % 84.2 % (40.0-70.0) H 04/22/20 04:05 Seg Neuts % (Manual) 91.0 % (40.0-70.0) H 04/20/20 06:58 Band Neutrophils % 0 % 04/20/20 06:58 Lymphocytes % (Manual) 2.0 % (13.4-35.0) L 04/20/20 06:58 Reactive Lymphs % (Man) 0 % 04/20/20 06:58 Monocytes % (Manual) 7.0 % (0.0-7.3) 04/20/20 06:58 Eosinophils % (Manual) 0 % (0.0-4.3) 04/20/20 06:58 Basophils % (Manual) 0 % (0.0-1.8) 04/20/20 06:58 Metamyelocytes % 0 % 04/20/20 06:58 Myelocytes % 0 % 04/20/20 06:58 Promyelocytes % 0 % 04/20/20 06:58 Blast Cells % 0 % 04/20/20 06:58 Nucleated RBC % Not Reportable 04/20/20 06:58 Seg Neutrophils # 10.0 K/mm3 (1.8-7.7) H 04/22/20 04:05 Seg Neutrophils # Man 8.1 K/mm3 (1.8-7.7) H 04/20/20 06:58 Band Neutrophils # 0.0 K/mm3 04/20/20 06:58 Lymphocytes # (Manual) 0.2 K/mm3 (1.2-5.4) L 04/20/20 06:58 Abs React Lymphs (Man) 0.0 K/mm3 04/20/20 06:58 Monocytes # (Manual) 0.6 K/mm3 (0.0-0.8) 04/20/20 06:58 Eosinophils # (Manual) 0.0 K/mm3 (0.0-0.4) 04/20/20 06:58 Basophils # (Manual) 0.0 K/mm3 (0.0-0.1) 04/20/20 06:58 Metamyelocytes # 0.0 K/mm3 04/20/20 06:58 Myelocytes # 0.0 K/mm3 04/20/20 06:58 Promyelocytes # 0.0 K/mm3 04/20/20 06:58 Blast Cells # 0.0 K/mm3 04/20/20 06:58 WBC Morphology Not Reportable 04/20/20 06:58 Hypersegmented Neuts Not Reportable 04/20/20 06:58 Hyposegmented Neuts Not Reportable 04/20/20 06:58 Hypogranular Neuts Not Reportable 04/20/20 06:58 Smudge Cells Not Reportable 04/20/20 06:58 Toxic Granulation Not Reportable 04/20/20 06:58 Toxic Vacuolation Not Reportable 04/20/20 06:58 Dohle Bodies Not Reportable 04/20/20 06:58 Pelger-Huet Anomaly Not Reportable 04/20/20 06:58 Barby Rods Not Reportable 04/20/20 06:58 Platelet Estimate Consistent w auto 04/20/20 06:58 Clumped Platelets Not Reportable 04/20/20 06:58 Plt Clumps, EDTA Not Reportable 04/20/20 06:58 Large Platelets Not Reportable 04/20/20 06:58 Giant Platelets Not Reportable 04/20/20 06:58 Platelet Satelliting Not Reportable 04/20/20 06:58 Plt Morphology Comment Not Reportable 04/20/20 06:58 RBC Morphology Not Reportable 04/20/20 06:58 Dimorphic RBCs Not Reportable 04/20/20 06:58 Polychromasia Not Reportable 04/20/20 06:58 Hypochromasia 2+ 04/20/20 06:58 Poikilocytosis Not Reportable 04/20/20 06:58 Anisocytosis 1+ 04/20/20 06:58 Microcytosis Not Reportable 04/20/20 06:58 Macrocytosis Not Reportable 04/20/20 06:58 Spherocytes Not Reportable 04/20/20 06:58 Pappenheimer Bodies Not Reportable 04/20/20 06:58 Sickle Cells Not Reportable 04/20/20 06:58 Target Cells Not Reportable 04/20/20 06:58 Tear Drop Cells Not Reportable 04/20/20 06:58 Ovalocytes Not Reportable 04/20/20 06:58 Helmet Cells Not Reportable 04/20/20 06:58 [place] Bodies Not Reportable 04/20/20 06:58 [place] Rings Not Reportable 04/20/20 06:58 [place] Cells Not Reportable 04/20/20 06:58 Bite Cells Not Reportable 04/20/20 06:58 Crenated Cell Not Reportable 04/20/20 06:58 Elliptocytes Not Reportable 04/20/20 06:58 Acanthocytes (Spur) Not Reportable 04/20/20 06:58 Rouleaux Not Reportable 04/20/20 06:58 Hemoglobin C Crystals Not Reportable 04/20/20 06:58 Schistocytes Not Reportable 04/20/20 06:58 Malaria parasites Not Reportable 04/20/20 06:58 Willie Bodies Not Reportable 04/20/20 06:58 Hem Pathologist Commnt No 04/20/20 06:58 PT 15.5 Sec. (12.2-14.9) H 04/12/20 06:22 INR 1.21 (0.87-1.13) H 04/12/20 06:22 D-Dimer 2029.09 ng/mlDDU (0-234) H 04/11/20 15:11 Heparin Anti-Xa Level 0.35 U.I./ml (0.3-0.7) 04/13/20 05:06 Heparin Anti-Xa, Unfract Negative (Negative) 04/17/20 22:45 ABG pH 7.505 pH Units (7.350-7.450) H 04/17/20 10:30 ABG pCO2 25.2 mm Hg 04/17/20 10:30 ABG pO2 157.9 mm Hg (80.0-90.0) H 04/17/20 10:30 ABG HCO3 19.4 mmol/L (20.0-26.0) L 04/17/20 10:30 ABG O2 Saturation 99.1 % (95.0-99.0) H 04/17/20 10:30 ABG O2 Content 12.7 (0.0-44) 04/17/20 10:30 ABG Base Excess -2.8 mmol/L (-2.0-3.0) L 04/17/20 10:30 ABG Hemoglobin 9.1 gm/dl (14.0-18.0) L 04/17/20 10:30 ABG Carboxyhemoglobin 1.6 % (0.0-5.0) 04/17/20 10:30 ABG Methemoglobin 0.4 % (0.0-1.5) 04/17/20 10:30 Oxyhemoglobin 97.0 % (95.0-99.0) 04/17/20 10:30 FiO2 35 % 04/17/20 10:30 Sodium 150 mmol/L (137-145) H 04/24/20 04:37 Potassium 4.0 mmol/L (3.6-5.0) D 04/24/20 04:37 Chloride 115.2 mmol/L (98-107) H 04/24/20 04:37 Carbon Dioxide 23 mmol/L (22-30) 04/24/20 04:37 Anion Gap 16 mmol/L 04/24/20 04:37 BUN 69 mg/dL (9-20) H 04/24/20 04:37 Creatinine 1.7 mg/dL (0.8-1.3) H 04/24/20 04:37 Estimated GFR 40 ml/min 04/24/20 04:37 BUN/Creatinine Ratio 41 % 04/24/20 04:37 Glucose 146 mg/dL (75-100) H 04/24/20 04:37 POC Glucose 136 mg/dL (70-105) H 04/25/20 12:07 Lactic Acid 3.00 mmol/L (0.7-2.0) H* 04/12/20 06:22 Calcium 8.0 mg/dL (8.4-10.2) L 04/24/20 04:37 Phosphorus 5.60 mg/dL (2.5-4.5) H 04/10/20 22:50 Magnesium 2.40 mg/dL (1.7-2.3) H 04/10/20 22:50 Ferritin 135.1 ng/mL (30.0-300.0) 04/11/20 15:11 Total Bilirubin 1.50 mg/dL (0.1-1.2) H 04/24/20 04:37 Direct Bilirubin 0.6 mg/dL (0-0.2) H 04/15/20 04:56 Indirect Bilirubin 0.3 mg/dL 04/15/20 04:56 AST 20 units/L (5-40) 04/24/20 04:37 ALT 45 units/L (7-56) 04/24/20 04:37 Alkaline Phosphatase 120 units/L (35-129) 04/24/20 04:37 Lactate Dehydrogenase 664 units/L (91-180) H 04/10/20 20:51 Troponin T 0.081 ng/mL (0.00-0.029) H 04/10/20 20:04 C-Reactive Protein 5.60 mg/dL (0.00-1.30) H 04/10/20 20:51 NT-Pro-B Natriuret Pep > 92424 pg/mL (0-900) H 04/11/20 15:11 Total Protein 5.5 g/dL (6.3-8.2) L 04/24/20 04:37 Albumin 2.6 g/dL (3.9-5) L 04/24/20 04:37 Albumin/Globulin Ratio 0.9 % 04/24/20 04:37 Triglycerides 113 mg/dL (2-149) 04/10/20 20:04 Cholesterol 178 mg/dL (50-199) 04/10/20 20:04 LDL Cholesterol Direct 123 mg/dL (50-130) 04/10/20 20:04 HDL Cholesterol 41 mg/dL (40-59) 04/10/20 20:04 Cholesterol/HDL Ratio 4.34 % 04/10/20 20:04 Serotonin Release Assay See scanned result 04/17/20 22:45 Procalcitonin 2.47 ng/mL (<0.15) 04/11/20 15:11 TSH 3.640 mlU/mL (0.270-4.200) 04/13/20 10:06 Urine Color Yellow (Yellow) 04/11/20 Unknown Urine Turbidity Clear (Clear) 04/11/20 Unknown Urine pH 5.0 (5.0-7.0) 04/11/20 Unknown Ur Specific [place] 1.009 (1.003-1.030) 04/11/20 Unknown Urine Protein <15 mg/dl mg/dL (Negative) 04/11/20 Unknown Urine Glucose (UA) Neg mg/dL (Negative) 04/11/20 Unknown Urine Ketones Neg mg/dL (Negative) 04/11/20 Unknown Urine Blood Neg (Negative) 04/11/20 Unknown Urine Nitrite Neg (Negative) 04/11/20 Unknown Urine Bilirubin Neg (Negative) 04/11/20 Unknown Urine Urobilinogen < 2.0 mg/dL (<2.0) 04/11/20 Unknown Ur Leukocyte Esterase Neg (Negative) 04/11/20 Unknown Urine WBC (Auto) 1.0 /HPF (0.0-6.0) 04/11/20 Unknown Urine RBC (Auto) 2.0 /HPF (0.0-6.0) 04/11/20 Unknown U Epithel Cells (Auto) < 1.0 /HPF (0-13.0) 04/11/20 Unknown Hyaline Casts 3 /LPF 04/11/20 Unknown Urine Mucus Few /HPF 04/11/20 Unknown Urine Eosinophils None seen (None Seen) 04/11/20 Unknown Urine Creatinine 35.3 mg/dL (0.1-20.0) H 04/11/20 Unknown Urine Sodium 92 mmol/L 04/11/20 Unknown Heparin-induced Plt Ab Negative (Negative) 04/17/20 22:45 UF Heparin High Dose 0 % Release 04/17/20 22:45 CHERYL UFH Low Dose 0.1 0 % Release 04/17/20 22:45 CHERYL UFH Low Dose 0.5 0 % Release 04/17/20 22:45 Coronavirus (PCR) Negative (Negative) 04/11/20 Unknown Hepatitis A IgM Ab Non-reactive (NonReactive) 04/12/20 20: Hep Bs Antigen Non-reactive (Negative) 04/12/20 20:23 Hep B Core IgM Ab Non-reactive (NonReactive) 04/12/20 20:23 Hepatitis C Antibody Non-reactive (NonReactive) 04/12/20 20:23 Gay/IV: Voiding Method Incontinent IV Catheter Type [Right Upper INT / Saline Lock arm] IV Catheter Type [Left Wrist] Peripheral IV IV Catheter Type [Right INT / Saline Lock Forearm] IV Catheter Type [Right Wrist] INT / Saline Lock Active Medications - Current Medications Current Medications: Generic Name Dose Route Start Last Admin Trade Name Freq PRN Reason Stop Dose Admin Acetaminophen 650 mg 04/11/20 01:26 04/23/20 23:13 Tylenol PO 650 mg Q6H PRN Administration Pain MILD(1-3)/Fever >100.5/MANCILLA Lipase/Protease/Amylase 1 each 04/11/20 14:[address] 10,500 Unit FEEDTUBE PRN PRN For Clogged Feeding Tube Apixaban 2.5 mg 04/17/20 12:00 04/25/20 09:36 Eliquis PO 2.5 mg Q12HR PRAVIN Administration Protocol Arformoterol Tartrate 15 mcg 04/20/20 20:00 04/25/20 08:23 Brovana Nebu IH 15 mcg Q12HRT PRAVIN Administration Budesonide 0.5 mg 04/20/20 20:00 04/25/20 08:23 Pulmicort IH 0.5 mg Q12HRT PRAVIN Administration Sodium Chloride 1,000 mls @ 42 mls/hr 04/25/20 12:30 Nacl 0.9% 1000 Ml IV 04/26/20 12:29 DIRECT [facility] Insulin Glargine 10 units 04/16/20 22:00 04/24/20 21:34 Lantus SUB-Q Not Given QHS [facility] Insulin Human Lispro 0 unit 04/16/20 16:30 04/25/20 13:32 Humalog SUB-Q Not Given ACHS [facility] Protocol Magnesium Hydroxide 30 ml 04/11/20 01:26 Milk Of Magnesia PO Q4H PRN Constipation Metoprolol Tartrate 25 mg 04/25/20 14:00 Metoprolol PO Q8HR PRAVIN Ondansetron HCl 4 mg 04/25/20 04:53 04/25/20 05:25 Zofran IV 4 mg Q8H PRN Administration Nausea And Vomiting Simple Syrup 15 ml 04/11/20 14:22 Simple Syrup FEEDTUBE PRN PRN Hypoglycemia Simple Syrup 30 ml 04/11/20 14:22 Simple Syrup FEEDTUBE PRN PRN Hypoglycemia Sodium Bicarbonate 325 mg 04/11/20 14:22 Sodium Bicarbonate FEEDTUBE PRN PRN For Clogged Feeding Tube Sodium Chloride 10 ml 04/11/20 10:00 04/25/20 09:39 Sodium Chloride Flush Syringe 10 Ml IV 10 ml BID PRAVIN Administration Sodium Chloride 10 ml 04/11/20 01:26 Sodium Chloride Flush Syringe 10 Ml IV PRN PRN LINE FLUSH Nutrition/Malnutrition Assess - Dietary Evaluation Nutrition/Malnutrition Findings: Nutrition Notes Start: 04/11/20 13:41 Freq: Status: Active Protocol: Document 04/24/20 11:13 LM (Rec: 04/24/20 11:17 LM [id number]) Nutrition Notes Initial or Follow up Reassessment Current Diagnosis Acute Kidney Injury,COPD, Coronary Artery Disease, Diabetes,Hypertension,Heart Failure Other Pertinent Diagnosis [place], Crohn's disease, seizure, colitis Current Diet Pureed w/ nectar liq Labs/Tests Na 150 BUN 69 Cr 1.7 BG 146 Pertinent Medications Reviewed Height 5 ft 7 in Weight 64.2 kg [place] Body Weight (kg) 67.27 BMI 22.1 Subjective/Other Information Pt stated he did not eat breakfast due to it not sitting well with him. Pt stated he drank 2 Nepros. Percent of energy/protein needs met: 52%/73% (ONS only) Burn Absent Trauma Absent Difficulty In Swallowing,Chewing Current % PO Negligible Minimum of two criteria No #1 Nutrition Diagnosis Inadequate oral intake Diagnosis Progress(for reassessment Continues documentation) Is patient on ventilator? No Is Patient Ambulatory and/or Out of Bed No REE-([facility]-confined to bed) 4387.401 Calculation Used for Recommendations [facility] Additional Notes Protein Needs: 52-78 g (0.8-1. 2 g/kg) Fluid Needs: 1 mL/kcal Nutrition Intervention Change Diet Order: Pureed or restart Enteral nutritionof pt continues to eat less than 50% Add Supplement/Snack (indicate name/kcal Nepro BID /protein ) Provides kCal: 850 Provides Protein (gm) 38 Goal #1 Meet at least 75% of energy an protein needs Anticipated Discharge Needs: Unable to determine at this time Follow-Up By: 04/26/20 Additional Comments F/U for PO/ONS intakes
[2020-04-25 15:23] LABS: Hematocrit 26.6 % (35.5-45.6); Hemoglobin 8.4 gm/dl (11.8-15.2); Mean Corpuscular HGB Conc 32 % (32-34); Mean Corpuscular Volume 77 fl (84-94); Platelet Count 74 K/mm3 (140-440); Red Blood Count 3.47 M/mm3 (3.65-5.03); Red Cell Distribution Width 21.8 % (13.2-15.2)
[2020-04-25 15:43] LABS: Albumin 2.3 g/dL (3.9-5); Calcium 8.3 mg/dL (8.4-10.2)
[2020-04-25 16:19] LABS: Anisocytosis 1+; Basophils % (Manual) 0 % (0.0-1.8); Eosinophils % (Manual) 0 % (0.0-4.3); Hypochromasia 1+; Total Cells Counted 100
[2020-04-25 16:20] LABS: Schistocytes Rare
--- NOTE | 2020-04-25 16:34 | Event Note ---
Date: 04/25/20 Patients BP still in the 80's systolic. He is now drowsy. He will need to be started on pressors immediately. Patient will be monitored in the CCU. Levophed order and transfer orders placed.
--- NOTE | 2020-04-25 17:37 | XRay Report ---
CHEST 1 VIEW INDICATION: Aspiration pneumonia. COMPARISON: 04/24/2020 FINDINGS: Support devices: None. Heart: Stable. Lungs/Pleura: Bilateral pulmonary opacities and left pleural effusion are stable. No pneumothorax. IMPRESSION: 1. No significant change. Signer Name: Enoc Valiente MD Signed: 04/25/2020 5:32 PM Workstation Name: [id number]
[2020-04-25] MEDS: METOPROLOL TARTRATE 25 MG TAB PO SCH ×2 (18:17→21:25)
[2020-04-25] MEDS ORDERED: ALBUMIN HUMAN 25% (25 GM/100 ML) INJ IV ONE (21:00)
[2020-04-25] MEDS: INSULIN GLARGINE 100 UNITS/ML SUB-Q SCH (21:24)
[2020-04-26 00:03] LABS: Calcium 8.1 mg/dL (8.4-10.2)
[2020-04-26] MEDS: NORepinephrine/NS 4 MG-250 ML 4 MG/250 ML BAG IV SCH (02:21)
[2020-04-26] MEDS: PIPERACILLIN/TAZOBACTAM 3.375 3.375 GM/50 ML BAG IV SCH ×3 (02:49→20:03)
[2020-04-26] MEDS ORDERED: PIPERACILLIN/TAZOBACTAM 3.375 3.375 GM/50 ML BAG IV SCH (03:00)
[2020-04-26] MEDS: METOPROLOL TARTRATE 25 MG TAB PO SCH ×3 (05:09→22:25)
[2020-04-26 06:08] LABS: Calcium 8.2 mg/dL (8.4-10.2)
[2020-04-26] MEDS: ARFORMOTEROL 15 MCG/2 ML NEBU IH SCH ×2 (08:07→19:50)
[2020-04-26] MEDS: BUDESONIDE 0.5 MG/2 ML NEBU IH SCH ×2 (08:08→19:51)
[2020-04-26] MEDS: APIXABAN 2.5 MG TAB PO SCH ×2 (10:43→22:24)
[2020-04-26 11:11] LABS: Hematocrit 25.9 % (35.5-45.6); Hemoglobin 7.9 gm/dl (11.8-15.2); Mean Corpuscular HGB Conc 30 % (32-34); Mean Corpuscular Volume 78 fl (84-94); Platelet Count 70 K/mm3 (140-440); Red Blood Count 3.31 M/mm3 (3.65-5.03); Red Cell Distribution Width 21.9 % (13.2-15.2)
[2020-04-26 11:12] LABS: Mean Platelet Volume 11.1 fl (6-12)
[2020-04-26] MEDS: INSULIN LISPRO 100 UNIT/ML VIAL 3 mL SUB-Q SCH ×3 (11:41→16:43)
--- NOTE | 2020-04-26 11:43 | Progress Note ---
Assessment and Plan 1. Acute kidney injury: Vasomotor KIRT superimposed on CKD. CT abdomen negative for hydro. Monitor renal function. Creatinine level about the same as yesterday. Avoid nephrotoxic agents. Meds dosage based on GFR. 2. FEN: Hypernatremia, monitor. Hypokalemia, improved, monitor. Anion-gap metabolic acidosis, improved, monitor. Monitor lytes and volume status. 3. Acute hypoxic respiratory failure: Possibly secondary to the CHF and underlying pneumonia. COVID-19 test negative. 4. Hypotension: IV Levophed. Monitor BP. 5. Chronic CHF: Monitor daily weight, intake and outputs. Followed by Cards. 6. Colitis: Monitor. Seen by GI. 7. Anemia, POA: Monitor. 8. Elevated Transaminases: Improved. 9. DM type 2. Subjective: Patient was seen and examined at the bedside. Pt was moved to ICU with hypotension. Examination: General appearance: well-developed, appears stated age, on restrains HEENT: ATNC, pupils equal Neck: trachea midline Respiratory: ctab Heart: regular, S1S2, no murmur Gastrointestinal: soft, normoactive bowel sounds, not tender Integumentary: no rash, warm and dry Neurologic: somnolent, moving extremities Ext: no edema Subjective Date of service: 04/26/20 Principal diagnosis: CHF Objective - Vital Signs Vital signs: Vital Signs - 12hr 04/26/20 04/26/20 04/26/20 01:38 01:50 01:57 Temperature 97.2 F L Pulse Rate 65 56 L 67 Pulse Rate [ Anterior Bilateral Throughout] Pulse Rate [ From Monitor] Pulse Rate [ Left Radial] Pulse Rate [ Right Radial] Respiratory 16 15 Rate Respiratory Rate [Anterior Bilateral Throughout] Blood Pressure 92/46 Blood Pressure 92/46 [Left] O2 Sat by Pulse 93 Oximetry 04/26/20 04/26/20 04/26/20 02:00 02:15 02:30 Temperature Pulse Rate 66 55 L 65 Pulse Rate [ Anterior Bilateral Throughout] Pulse Rate [ From Monitor] Pulse Rate [ Left Radial] Pulse Rate [ Right Radial] Respiratory 26 H 15 27 H Rate Respiratory Rate [Anterior Bilateral Throughout] Blood Pressure 85/44 95/54 Blood Pressure [Left] O2 Sat by Pulse 97 95 Oximetry 04/26/20 04/26/20 04/26/20 02:45 03:00 03:15 Temperature Pulse Rate 61 67 54 L Pulse Rate [ Anterior Bilateral Throughout] Pulse Rate [ From Monitor] Pulse Rate [ Left Radial] Pulse Rate [ Right Radial] Respiratory 28 H 23 16 Rate Respiratory Rate [Anterior Bilateral Throughout] Blood Pressure 93/55 97/55 92/44 Blood Pressure [Left] O2 Sat by Pulse 94 91 91 Oximetry 04/26/20 04/26/20 04/26/20 03:30 03:45 04:00 Temperature 94.0 F L Pulse Rate 68 61 66 Pulse Rate [ Anterior Bilateral Throughout] Pulse Rate [ 67 From Monitor] Pulse Rate [ 62 Left Radial] Pulse Rate [ 62 Right Radial] Respiratory 28 H 29 H 17 Rate Respiratory Rate [Anterior Bilateral Throughout] Blood Pressure 84/48 91/52 103/49 Blood Pressure [Left] O2 Sat by Pulse 92 93 94 Oximetry 04/26/20 04/26/20 04/26/20 04:15 04:30 04:45 Temperature Pulse Rate 73 67 69 Pulse Rate [ Anterior Bilateral Throughout] Pulse Rate [ From Monitor] Pulse Rate [ Left Radial] Pulse Rate [ Right Radial] Respiratory 26 H 18 18 Rate Respiratory Rate [Anterior Bilateral Throughout] Blood Pressure 98/46 92/44 90/48 Blood Pressure [Left] O2 Sat by Pulse 85 86 86 Oximetry 04/26/20 04/26/20 04/26/20 05:00 05:15 05:30 Temperature Pulse Rate 55 L 65 68 Pulse Rate [ Anterior Bilateral Throughout] Pulse Rate [ From Monitor] Pulse Rate [ Left Radial] Pulse Rate [ Right Radial] Respiratory 14 26 H 22 Rate Respiratory Rate [Anterior Bilateral Throughout] Blood Pressure 93/43 98/52 99/51 Blood Pressure [Left] O2 Sat by Pulse 89 92 92 Oximetry 04/26/20 04/26/20 04/26/20 05:45 06:00 06:15 Temperature Pulse Rate 74 69 67 Pulse Rate [ Anterior Bilateral Throughout] Pulse Rate [ From Monitor] Pulse Rate [ Left Radial] Pulse Rate [ Right Radial] Respiratory 30 H 21 22 Rate Respiratory Rate [Anterior Bilateral Throughout] Blood Pressure 89/58 98/51 76/46 Blood Pressure [Left] O2 Sat by Pulse 87 89 93 Oximetry 04/26/20 04/26/20 04/26/20 06:30 06:45 07:00 Temperature Pulse Rate 64 53 L 56 L Pulse Rate [ Anterior Bilateral Throughout] Pulse Rate [ From Monitor] Pulse Rate [ Left Radial] Pulse Rate [ Right Radial] Respiratory 17 16 17 Rate Respiratory Rate [Anterior Bilateral Throughout] Blood Pressure 84/44 100/45 102/49 Blood Pressure [Left] O2 Sat by Pulse 93 95 95 Oximetry 04/26/20 04/26/20 04/26/20 07:16 07:30 07:46 Temperature Pulse Rate 65 68 70 Pulse Rate [ Anterior Bilateral Throughout] Pulse Rate [ From Monitor] Pulse Rate [ Left Radial] Pulse Rate [ Right Radial] Respiratory 16 19 26 H Rate Respiratory Rate [Anterior Bilateral Throughout] Blood Pressure 93/46 87/56 106/50 Blood Pressure [Left] O2 Sat by Pulse 94 94 92 Oximetry 04/26/20 04/26/20 04/26/20 08:00 08:15 08:24 Temperature Pulse Rate 68 73 Pulse Rate [ 71 Anterior Bilateral Throughout] Pulse Rate [ 68 From Monitor] Pulse Rate [ 68 Left Radial] Pulse Rate [ 68 Right Radial] Respiratory 17 31 H Rate Respiratory 20 Rate [Anterior Bilateral Throughout] Blood Pressure 111/54 107/53 Blood Pressure [Left] O2 Sat by Pulse 92 90 Oximetry 04/26/20 04/26/20 04/26/20 08:27 08:30 08:45 Temperature Pulse Rate 74 60 Pulse Rate [ Anterior Bilateral Throughout] Pulse Rate [ From Monitor] Pulse Rate [ Left Radial] Pulse Rate [ Right Radial] Respiratory 34 H 19 Rate Respiratory Rate [Anterior Bilateral Throughout] Blood Pressure 105/56 93/63 Blood Pressure [Left] O2 Sat by Pulse 92 93 90 Oximetry 04/26/20 04/26/20 04/26/20 09:00 09:15 09:30 Temperature Pulse Rate 69 62 61 Pulse Rate [ Anterior Bilateral Throughout] Pulse Rate [ From Monitor] Pulse Rate [ Left Radial] Pulse Rate [ Right Radial] Respiratory 29 H 18 25 H Rate Respiratory Rate [Anterior Bilateral Throughout] Blood Pressure 101/57 99/48 89/48 Blood Pressure [Left] O2 Sat by Pulse 90 95 97 Oximetry 04/26/20 04/26/20 04/26/20 09:46 10:00 10:15 Temperature Pulse Rate 55 L 57 L 59 L Pulse Rate [ Anterior Bilateral Throughout] Pulse Rate [ From Monitor] Pulse Rate [ Left Radial] Pulse Rate [ Right Radial] Respiratory 20 16 17 Rate Respiratory Rate [Anterior Bilateral Throughout] Blood Pressure 96/39 105/44 105/46 Blood Pressure [Left] O2 Sat by Pulse 97 99 98 Oximetry 04/26/20 04/26/20 04/26/20 10:30 10:45 11:00 Temperature Pulse Rate 57 L 58 L 64 Pulse Rate [ Anterior Bilateral Throughout] Pulse Rate [ From Monitor] Pulse Rate [ Left Radial] Pulse Rate [ Right Radial] Respiratory 16 18 Rate Respiratory Rate [Anterior Bilateral Throughout] Blood Pressure 99/41 93/49 108/44 Blood Pressure [Left] O2 Sat by Pulse 98 98 96 Oximetry 04/26/20 11:16 Temperature Pulse Rate 63 Pulse Rate [ Anterior Bilateral Throughout] Pulse Rate [ From Monitor] Pulse Rate [ Left Radial] Pulse Rate [ Right Radial] Respiratory Rate Respiratory Rate [Anterior Bilateral Throughout] Blood Pressure 109/43 Blood Pressure [Left] O2 Sat by Pulse 97 Oximetry - Lab 04/26/20 10:13 04/26/20 14:41 Most recent lab results ABG pH 7.505 pH Units (7.350-7.450) H 04/17/20 10:30 ABG pCO2 25.2 mm Hg 04/17/20 10:30 ABG pO2 157.9 mm Hg (80.0-90.0) H 04/17/20 10:30 ABG HCO3 19.4 mmol/L (20.0-26.0) L 04/17/20 10:30 ABG O2 Saturation 99.1 % (95.0-99.0) H 04/17/20 10:30 Calcium 8.2 mg/dL (8.4-10.2) L 04/26/20 04:32 Phosphorus 5.60 mg/dL (2.5-4.5) H 04/10/20 22:50 Magnesium 2.40 mg/dL (1.7-2.3) H 04/10/20 22:50 Urine Creatinine 35.3 mg/dL (0.1-20.0) H 04/11/20 Unknown Urine Sodium 92 mmol/L 04/11/20 Unknown Medications & Allergies - Medications Allergies/Adverse Reactions: Allergies Sulfa (Sulfonamide Antibiotics) Allergy (Verified 07/30/18 17:44) Rash Home Medications: Home Medications Medication Instructions Recorded Confirmed Last Taken Type Gabapentin 300 mg PO BID 09/19/16 04/21/20 09/18/16 History 300 mg Metformin HCl [metFORMIN ER 500 mg PO BIDWM 03/28/17 04/21/20 Unknown History Gastric] AtorvaSTATin 10 mg PO QHS #30 tablet 12/21/17 04/21/20 Unknown Rx Ranolazine ER [Ranexa ER] 500 mg PO BID #60 tablet 12/21/17 04/21/20 Unknown Rx Aspirin 325 mg PO QDAY #30 tablet 01/12/18 04/21/20 04/21/20 Rx Diphenoxylate/Atropine [Lomotil] 1 tab PO Q8H PRN 01/15/18 04/21/20 Unknown History Insulin Lispro [HumaLOG VIAL] See Protocol SQ ACHS 01/15/18 04/21/20 04/21/20 18 :46 History Promethazine [Phenergan] 25 mg PO Q4H PRN 01/15/18 04/21/20 Unknown History Albuterol Mdi (or & Nicu Only) 2 puff IH Q4HR PRN #1 inhalation 12/21/18 04/21/20 04/21/20 18:46 Rx [ProAir HFA Inhaler] Furosemide [Lasix TAB] 20 mg PO QDAY #30 tablet 02/03/20 04/21/20 Unknown Rx Metoprolol Xl [Metoprolol 25 mg PO DAILY #60 tablet 02/03/20 04/21/20 04/21/20 18:45 Rx SUCCINATE ER TAB] levETIRAcetam [Keppra TAB] 500 mg PO BID #120 tablet 02/03/20 04/21/20 Unknown Rx levoFLOXacin [Levaquin TAB] 500 mg PO QDAY #5 tablet 02/03/20 04/21/20 Unknown Rx Active Medications: Generic Name Dose Route Start Last Admin Trade Name Freq PRN Reason Stop Dose Admin Acetaminophen 650 mg 04/11/20 01:26 04/23/20 23:13 Tylenol PO 650 mg Q6H PRN Administration Pain MILD(1-3)/Fever >100.5/MANCILLA Lipase/Protease/Amylase 1 each 04/11/20 14:22 Pancremiley Saenz 10,500 Unit FEEDTUBE PRN PRN For Clogged Feeding Tube Apixaban 2.5 mg 04/17/20 12:00 04/26/20 10:43 Eliquis PO 2.5 mg Q12HR PRAVIN Administration Protocol Arformoterol Tartrate 15 mcg 04/20/20 20:00 04/26/20 08:07 Brovana Nebu IH 15 mcg Q12HRT PRAVIN Administration Budesonide 0.5 mg 04/20/20 20:00 04/26/20 08:08 Pulmicort IH 0.5 mg Q12HRT PRAVIN Administration Sodium Chloride 1,000 mls @ 42 mls/hr 04/25/20 12:30 04/25/20 21:28 Nacl 0.9% 1000 Ml IV 04/26/20 12:29 42 mls/hr DIRECT PRAVIN Administration Norepinephrine 4 mg in 250 mls @ 7.5 mls/hr 04/25/20 17:00 04/26/20 05:06 Levophed Drip 4 Mg/Ns 250 Ml IV 4 mcg/min TITR PRAVIN 15 mls/hr Titration Protocol 2 MCG/MIN Piperacillin Sod/Tazobactam Sod 3.375 gm in 50 mls @ 100 mls/hr 04/26/20 03:00 04/26/20 11:09 Zosyn/Ns 3.375gm/50ml IV 100 mls/hr Q8H [facility] Administration Protocol Insulin Glargine 10 units 04/16/20 22:00 04/25/20 21:24 Lantus SUB-Q Not Given QHS [facility] Insulin Human Lispro 0 unit 04/16/20 16:30 04/26/20 11:41 Humalog SUB-Q Not Given ACHS [facility] Protocol Magnesium Hydroxide 30 ml 04/11/20 01:26 Milk Of Magnesia PO Q4H PRN Constipation Metoprolol Tartrate 25 mg 04/25/20 14:00 04/26/20 05:09 Metoprolol PO Not Given Q8HR [facility] Ondansetron HCl 4 mg 04/25/20 04:53 04/25/20 05:25 Zofran IV 4 mg Q8H PRN Administration Nausea And Vomiting Simple Syrup 15 ml 04/11/20 14:22 Simple Syrup FEEDTUBE PRN PRN Hypoglycemia Simple Syrup 30 ml 04/11/20 14:22 Simple Syrup FEEDTUBE PRN PRN Hypoglycemia Sodium Bicarbonate 325 mg 04/11/20 14:22 Sodium Bicarbonate FEEDTUBE PRN PRN For Clogged Feeding Tube Sodium Chloride 10 ml 04/11/20 10:00 04/26/20 10:44 Sodium Chloride Flush Syringe 10 Ml IV 10 ml BID PRAVIN Administration Sodium Chloride 10 ml 04/11/20 01:26 Sodium Chloride Flush Syringe 10 Ml IV PRN PRN LINE FLUSH
--- NOTE | 2020-04-26 11:50 | Progress Note ---
Assessment and Plan Chronic systolic heart failure LVEF 15-20% by echo 01/2020 VQ scan reports a low probability for PE. COVID 19 test was negative Paroxysmal Atrial fibrillation vs flutter on metoprolol for suppression initiated on low dose Eliquis due to patient's low body weight of 64 kg and evidence of chronic anemia. Dehydration Hx of Ischemic cardiomyopathy noncompliant with outpatient cardiac follow up. Hx of CAD Abdominal pain CT scan of the abdomen suggestive of colitis. Renal insufficiency Continue medical therapy for chronic systolic heart failure and paroxysmal atrial fibrillation as tolerated. Subjective Date of service: 04/26/20 Principal diagnosis: CHF Interval history: Patient transferred to CCU overnight for hypotension. He is currently on pressors for support. Objective Vital Signs Temp Pulse Pulse Pulse Pulse Pulse Pulse 04/26/20 11:16 63 04/26/20 11:00 64 04/26/20 10:45 58 L 04/26/20 10:30 57 L 04/26/20 10:15 59 L 04/26/20 10:00 57 L 04/26/20 09:46 55 L 04/26/20 09:30 61 04/26/20 09:15 62 04/26/20 09:00 69 04/26/20 08:45 60 04/26/20 08:30 74 04/26/20 08:27 04/26/20 08:24 71 04/26/20 08:15 73 04/26/20 08:00 68 68 68 68 04/26/20 07:46 70 04/26/20 07:30 68 04/26/20 07:16 65 04/26/20 07:00 56 L 04/26/20 06:45 53 L 04/26/20 06:30 64 04/26/20 06:15 67 04/26/20 06:00 69 04/26/20 05:45 74 04/26/20 05:30 68 04/26/20 05:15 65 04/26/20 05:00 55 L 04/26/20 04:45 69 04/26/20 04:30 67 04/26/20 04:15 73 04/26/20 04:00 94.0 F L 66 67 62 62 04/26/20 03:45 61 04/26/20 03:30 68 04/26/20 03:15 54 L 04/26/20 03:00 67 04/26/20 02:45 61 04/26/20 02:30 65 04/26/20 02:15 55 L 04/26/20 02:00 66 04/26/20 01:57 67 04/26/20 01:50 56 L 04/26/20 01:38 97.2 F L 65 04/25/20 23:25 55 L 04/25/20 23:09 60 04/25/20 22:50 97.0 F L 57 L 04/25/20 22:43 55 L 04/25/20 21:36 62 62 04/25/20 21:30 66 04/25/20 21:25 63 04/25/20 19:58 97.1 F L 54 L 04/25/20 19:08 04/25/20 18:15 04/25/20 18:05 04/25/20 15:55 97.5 F L 65 04/25/20 13:08 04/25/20 12:10 98 H Resp Resp Resp BP BP Pulse Ox 04/26/20 11:16 109/43 97 04/26/20 11:00 108/44 96 04/26/20 10:45 18 93/49 98 04/26/20 10:30 16 99/41 98 04/26/20 10:15 17 105/46 98 04/26/20 10:00 16 105/44 99 04/26/20 09:46 20 96/39 97 04/26/20 09:30 25 H 89/48 97 04/26/20 09:15 18 99/48 95 04/26/20 09:00 29 H 101/57 90 04/26/20 08:45 19 93/63 90 04/26/20 08:30 34 H 105/56 93 04/26/20 08:27 92 04/26/20 08:24 20 04/26/20 08:15 31 H 107/53 90 04/26/20 08:00 17 111/54 92 04/26/20 07:46 26 H 106/50 92 04/26/20 07:30 19 87/56 94 04/26/20 07:16 16 93/46 94 04/26/20 07:00 17 102/49 95 04/26/20 06:45 16 100/45 95 04/26/20 06:30 17 84/44 93 04/26/20 06:15 22 76/46 93 04/26/20 06:00 21 98/51 89 04/26/20 05:45 30 H 89/58 87 04/26/20 05:30 22 99/51 92 04/26/20 05:15 26 H 98/52 92 04/26/20 05:00 14 93/43 89 04/26/20 04:45 18 90/48 86 04/26/20 04:30 18 92/44 86 04/26/20 04:15 26 H 98/46 85 04/26/20 04:00 17 103/49 94 04/26/20 03:45 29 H 91/52 93 04/26/20 03:30 28 H 84/48 92 04/26/20 03:15 16 92/44 91 04/26/20 03:00 23 97/55 91 04/26/20 02:45 28 H 93/55 94 04/26/20 02:30 27 H 95/54 95 04/26/20 02:15 15 85/44 97 04/26/20 02:00 26 H 04/26/20 01:57 15 04/26/20 01:50 92/46 04/26/20 01:38 16 92/46 93 04/25/20 23:25 91/46 04/25/20 23:09 18 97 04/25/20 22:50 18 89/43 97 04/25/20 22:43 89/46 04/25/20 21:36 20 97 04/25/20 21:30 98/53 04/25/20 21:25 98/53 04/25/20 19:58 14 86/38 100 04/25/20 19:08 94/49 04/25/20 18:15 97/55 04/25/20 18:05 84/45 04/25/20 15:55 20 91/47 98 04/25/20 13:08 85/56 04/25/20 12:10 57/27 95 - Physical Examination General: No Apparent Distress, Cachectic HEENT: Positive: PERRL Neck: Positive: trachea midline Cardiac: Positive: Reg Rate and Rhythm Neuro: Positive: Weakness Extremities: Absent: edema - Labs and Meds Cardiac Enzymes 04/25/20 Range/Units Unknown AST 19 (5-40) units/L CBC 04/25/20 04/26/20 Range/Units Unknown 10:13 WBC 13.5 H 15.2 H (4.5-11.0) K/mm3 RBC 3.47 L 3.31 L (3.65-5.03) M/mm3 Hgb 8.4 L 7.9 L (11.8-15.2) gm/dl Hct 26.6 L 25.9 L (35.5-45.6) % Plt Count 74 L 70 L (140-440) K/mm3 Comprehensive Metabolic Panel 04/25/20 04/25/20 04/26/20 Range/Units 22:53 Unknown 04:32 Sodium 147 H 145 147 H (137-145) mmol/L Potassium 4.4 4.0 4.8 (3.6-5.0) mmol/L Chloride 113.7 H 113.7 H 113.3 H (98-107) mmol/L Carbon Dioxide 20 L 23 23 (22-30) mmol/L BUN 73 H 74 H 71 H (9-20) mg/dL Creatinine 1.8 H 1.8 H 1.8 H (0.8-1.3) mg/dL Glucose 241 H 184 H 197 H (75-100) mg/dL Calcium 8.1 L 8.3 L 8.2 L (8.4-10.2) mg/dL AST 19 (5-40) units/L ALT 37 (7-56) units/L Alkaline Phosphatase 138 H (35-129) units/L Total Protein 5.4 L (6.3-8.2) g/dL Albumin 2.3 L (3.9-5) g/dL
[2020-04-26 11:55] LABS: Total Cells Counted 100
[2020-04-26 11:56] LABS: Anisocytosis 1+; Eosinophils % (Manual) 0 % (0.0-4.3); Hypochromasia 1+
[2020-04-26 11:57] LABS: Burr Cells Few
[2020-04-26 11:58] LABS: Schistocytes Few
[2020-04-26 12:00] LABS: Platelet Estimate Consistent w Auto
[2020-04-26] MEDS ORDERED: ZIPRASIDONE MESYLATE 20 MG VIAL IM ONE (14:00)
--- NOTE | 2020-04-26 16:28 | XRay Report ---
CHEST 1 VIEW 04/26/2020 2:42 PM INDICATION / CLINICAL INFORMATION: R arm PICC placement. COMPARISON: Chest x-ray 04/25/2020 FINDINGS: SUPPORT DEVICES: New right PICC line has tip in SVC HEART / MEDIASTINUM: Cardiac silhouette remains enlarged LUNGS / PLEURA: Bilateral parenchymal disease/edema with small right and moderate left pleural effusi ons has worsened. No pneumothorax. ADDITIONAL FINDINGS: No significant additional findings. IMPRESSION: 1. Worsening bilateral pleural-parenchymal disease Signer Name: Kolby Butt MD Signed: 04/26/2020 4:24 PM Workstation Name: [id number]
--- NOTE | 2020-04-26 16:42 | Progress Note ---
Assessment and Plan Assessment and plan: ---Acute respiratory failure Current Visit: Yes Status: Acute Plan to address problem: Improved --Acute on chronic systolic CHF (congestive heart failure) Current Visit: Yes Status: Acute Plan to address problem: Holding Lasix due to KIRT Will monitor daily weight, inputs and outputs. Monitor renal function closely Cardiology on board --CKD Current Visit: Yes Status: Acute Plan to address problem: Had KIRT 2/2 vasomotor nephropathy on admission but has resolved Cr 1.8 --Colitis Current Visit: Yes Status: Acute Plan to address problem: Resolved GI recommendations appreciated --Arrhythmias-atrial fibrillation versus nonsustained ventricular tachycardia Current Visit: Yes Status: Acute Plan to address problem: Initially started on amiodarone but discontinued due to elevated LFTs Now on metoprolol every 6 and rate is currently controlled. Started on low-dose apixaban 2.5 mg twice daily Cardiology recommendations appreciated --Diabetes mellitus type 2 in nonobese Current Visit: No Status: Acute Plan to address problem: Lantus and sliding scale insulin. --Hyperkalemia and metabolic acidosis Current Visit: Yes Status: Acute Plan to address problem: Resolved --T12 compression fracture Current Visit: No Status: Likely chronic Plan to address problem: CT abdomen showed acute appearing T12 compression fracture 04/14. MRI thoracic without contrast ordered to further evaluate. 04/15. Patient is agitated and unable to get an MRI. 04/16. Awaiting MRI without contrast thoracic. Plan to use sedatives today. Informed RN. If positive for acute fracture, patient will need to be transferred for neurosurgery evaluation. 04/17. MRI thoracic and lumbar showed acute T12 compression fracture. Discussed case with [place] [facility] precision farming specialist who advised no acute intervention is necessary at this time-advised TLSO brace when patient is sitting or ambulatory. He will need follow-up with Dr. Dalton Jack, Dr. Alan Henson, Dr. Tyson Clark [contact number [phone]] after discharge. ---Elevated LFTs Current Visit: Yes Status: Acute Plan to address problem: Improving US abdomen shows no acute pathology ---Infrarenal aortic aneurysm Current Visit: No Status: Acute Plan to address problem: 3.8 cm in diameter Needs to follow-up with vascular surgery at discharge for monitoring -Shock Current Visit: No Status: Acute Plan to address problem: Now on pressors. Continue antibiotics. Await blood culture results VQ scan to rule out PE -- DVT prophylaxis Current Visit: No Status: Acute Plan to address problem: Hold heparin for now. Started on anticoagulation per cardiology. HIT antibody sent --Full code status Current Visit: No Status: Acute Disposition-home with hospice as per patient son plan stable 04/11. Patient seen and examined at bedside this morning. Patient is on BiPAP. Patient is eager to go home. Otherwise denies any chest pain or palpitations. Patient CT showed possible compression fracture of T12, it is unknown if this is new. We will get MRI without contrast of the thoracic and lumbar to further evaluate. If patient actually has an acute compression fracture, he will need to have a neurosurgery evaluation so will need to be transferred to another facility for this. Otherwise, patient continue to monitor patient's respiratory status while in the IMCU. Patient reportedly failed a swallow evaluation and will need to have an NG tube placement. Tried to call son on number provided in the chart and left a message. Awaiting callback. Labs reviewed-patient has elevated inflammatory [id number], LDH. COVID-19 test has been ordered. Started patient on steroids. Ordered stat BMP, ABG, D-dimer, proBNP, ferritin, LDH. 04/12. COVID -19 test is negative. His breathing has improved so was placed on nasal cannula. Cardiology adjusted meds today. He failed swallow evaluation yesterday. He requests for food. Will reattempt swallow evaluation. Speech therapy consult. 04/13. Overnight, he developed VT and was started on amiodarone. HR better this AM. Cardiology will review medications. Patient seen and examined at bedside this AM. He requests for food. He failed a repeat speech evaluation and will need barium swallow. May need PEG placement if he fails. NG tube in place. Vitals reviewed 04/14. Heart rate improved. Remains n.p.o. with NG tube feeds. Video swallow evaluation shows mild abnormal study. Speech therapist to see patient. Patient has not been able to have an MRI of the back due to agitation. He had a CT during the admission that showed possible compression fracture of T12 but this has not been fully evaluated due to patient's ongoing conditions. Labs reviewed-renal function is worse. Discontinue Lasix. 04/15. Has been started on a diet and is tolerating. He pulled out his NG tube last night. Okay to leave NG tube for now. Plan to get an MRI performed today with sedative to evaluate T12 fracture. Patient denies any back pain. Renal function slightly improved today after Lasix was discontinued. Continue IV hydration. Nephrology recommendations appreciated 04/16. He feels better today. MRI could not be done yesterday. Hopefully patient can have an MRI done today. Creatinine 3.1 today. Patient will need placement but will need to have evaluation of possible T12 fracture prior to discharge 04/17. MRI thoracic and lumbar showed acute T12 compression fracture. Discussed case with [place] [facility] precision farming specialist who advised no acute intervention is necessary at this time-advised TLSO brace when patient is sitting or ambulatory. He will need follow-up with Dr. Dalton Jack, Dr. Alan Henson, Dr. Tyson Clark [contact number [phone]] after discharge. 04/18. Await Nephrology recs for d/c plans 04/19/2020. Patient reportedly with choking/coughing with swallowing. We will change to n.p.o. status right now. Speech reevaluation. Check chest x-ray to rule out aspiration pneumonia. Await nephrology recommendations for discharge. Creatinine slowly improving. CT of abdomen negative for hydronephrosis. BUN increasing. Therefore, we will check Hemoccult of stool to rule out GI bleed. Hemoglobin has been stable. 04/20/2020. Repeat chest x-ray reveals worsening bibasilar opacities. Pulmonary consulted. Doppler of left upper extremity for swelling. PT evaluation recommends subacute rehab 04/21/2020. Await pulmonary consultation for worsening bibasilar opacities. Doppler of left upper extremity pending. PT evaluation recommends subacute rehab. Creatinine has improved to near baseline of 1.8. Nephrology following 04/22/2020. Pulmonary sees no need for antibiotics or further evaluation of bibasilar opacities with CT scan. Continue current COPD treatment. Beta blockers increase for A. fib per cardiology. Await Doppler left upper extremity. PT evaluation recommends subacute rehab but case management reports patient's son Haseeb [phone]. Haseeb wants patient to return home with [facility]. 04/23/2020. Continue beta-blockers for atrial fibrillation per cardiology. Await left upper extremity Doppler ultrasound for left upper extremity swelling. PT evaluation recommends subacute rehab but case management reports patient's son Haseeb [phone]. Haseeb wants patient to return home with [facility]. Creatinine appears to be improved to baseline. Anticipate discharge in the next 1 to 2 days. 04/24/2020. Continue beta-blockers for atrial fibrillation per cardiology. Rocío it left upper extremity Doppler ultrasound for left upper extremity swelling. Haseeb (son [phone]) wants patient to return home with [facility]. Creatinine appears to be improved to baseline. Patient now with hypernatremia. ?Tenuous IV fluid hydration--defer to nephrology. 04/25. Blood pressure low this morning but subsequently improved with slow bolus. Sodium today is 150. Patient is dehydrated and is asking for water to drink. I have discussed with RN to ensure patient gets enough water to help with dehydration. His heart rate is controlled and cardiology has adjusted the medication today due to slight hypotension.-Metoprolol now 25 every 8 hours. He is alert and oriented x3 this morning and is able to make needs known. Check BMP every 8 hours for now. Nephrology following 04/26. Transferred to the ICU due to persisted hypotension. WBC trending up. Started on antibiotics. Aetiology of shock could be sepsis. Other differentials - cardiogenic vs obstructive (has been on elquis 2.5mg BID so not likely. His ddimer is elevated and he cannot get contrast - will get VQ scan. Critical care to see. Blood culture ordered. Repat labs in AM History Interval history: Patient seen and examined at bedside. Now on pressors. Hospitalist Physical - Physical exam Narrative exam: VITAL SIGNS: Reviewed. GENERAL: More awake HEAD: No signs of head trauma. EYES: Pupils are equal. Extraocular motions intact. EARS: Hearing grossly intact. MOUTH: Oropharynx is normal. NECK: No adenopathy, no JVD. CHEST: Chest mostly clear CARDIAC: Regular rate and rhythm. S1 and S2, without murmurs, gallops, or rubs. VASCULAR: No Edema. Peripheral pulses normal and equal in all extremities. ABDOMEN: Soft, non tender and non distended. No rebound or guarding, and no masses palpated. Bowel Sounds normal. MUSCULOSKELETAL: Good range of motion of all major joints. Extremities without clubbing, cyanosis or edema. NEUROLOGIC EXAM: More awake PSYCHIATRIC: Stable mood SKIN: No obvious lesions - Constitutional Vitals: Temp Pulse Resp BP Pulse Ox 94.0 F L 69 17 119/51 96 04/26/20 04:00 04/26/20 14:15 04/26/20 12:00 04/26/20 14:15 04/26/20 15:19 General appearance: Present: no acute distress HEART Score - HEART Score Troponin: Troponin T 0.081 ng/mL (0.00-0.029) H 04/10/20 20:04 Results - Labs CBC & Chem 7: 04/26/20 10:13 04/26/20 14:41 Labs: Laboratory Last Values WBC 15.2 K/mm3 (4.5-11.0) H 04/26/20 10:13 RBC 3.31 M/mm3 (3.65-5.03) L 04/26/20 10:13 Hgb 7.9 gm/dl (11.8-15.2) L 04/26/20 10:13 Hct 25.9 % (35.5-45.6) L 04/26/20 10:13 MCV 78 fl (84-94) L 04/26/20 10:13 MCH 24 pg (28-32) L 04/26/20 10:13 MCHC 30 % (32-34) L 04/26/20 10:13 RDW 21.9 % (13.2-15.2) H 04/26/20 10:13 Plt Count 70 K/mm3 (140-440) L 04/26/20 10:13 Lymph % (Auto) 8.1 % (13.4-35.0) L 04/22/20 04:05 Braxton % (Auto) 5.6 % (0.0-7.3) 04/22/20 04:05 Eos % (Auto) 1.8 % (0.0-4.3) 04/22/20 04:05 Baso % (Auto) 0.3 % (0.0-1.8) 04/22/20 04:05 Lymph # (Auto) 1.0 K/mm3 (1.2-5.4) L 04/22/20 04:05 Braxton # (Auto) 0.7 K/mm3 (0.0-0.8) 04/22/20 04:05 Eos # (Auto) 0.2 K/mm3 (0.0-0.4) 04/22/20 04:05 Baso # (Auto) 0.0 K/mm3 (0.0-0.1) 04/22/20 04:05 Add Manual Diff Complete 04/26/20 10:13 Total Counted 100 04/26/20 10:13 Seg Neutrophils % Supervisor Tumblers 04/25/20 Unknown Seg Neuts % (Manual) 97.0 % (40.0-70.0) H 04/26/20 10:13 Band Neutrophils % 0 % 04/26/20 10:13 Lymphocytes % (Manual) 1.0 % (13.4-35.0) L 04/26/20 10:13 Reactive Lymphs % (Man) 0 % 04/26/20 10:13 Monocytes % (Manual) 1.0 % (0.0-7.3) 04/26/20 10:13 Eosinophils % (Manual) 0 % (0.0-4.3) 04/26/20 10:13 Basophils % (Manual) 1.0 % (0.0-1.8) 04/26/20 10:13 Metamyelocytes % 0 % 04/26/20 10:13 Myelocytes % 0 % 04/26/20 10:13 Promyelocytes % 0 % 04/26/20 10:13 Blast Cells % 0 % 04/26/20 10:13 Nucleated RBC % Not Reportable 04/26/20 10:13 Seg Neutrophils # 10.0 K/mm3 (1.8-7.7) H 04/22/20 04:05 Seg Neutrophils # Man 14.7 K/mm3 (1.8-7.7) H 04/26/20 10:13 Band Neutrophils # 0.0 K/mm3 04/26/20 10:13 Lymphocytes # (Manual) 0.2 K/mm3 (1.2-5.4) L 04/26/20 10:13 Abs React Lymphs (Man) 0.0 K/mm3 04/26/20 10:13 Monocytes # (Manual) 0.2 K/mm3 (0.0-0.8) 04/26/20 10:13 Eosinophils # (Manual) 0.0 K/mm3 (0.0-0.4) 04/26/20 10:13 Basophils # (Manual) 0.2 K/mm3 (0.0-0.1) H 04/26/20 10:13 Metamyelocytes # 0.0 K/mm3 04/26/20 10:13 Myelocytes # 0.0 K/mm3 04/26/20 10:13 Promyelocytes # 0.0 K/mm3 04/26/20 10:13 Blast Cells # 0.0 K/mm3 04/26/20 10:13 WBC Morphology Not Reportable 04/26/20 10:13 Hypersegmented Neuts Not Reportable 04/26/20 10:13 Hyposegmented Neuts Not Reportable 04/26/20 10:13 Hypogranular Neuts Not Reportable 04/26/20 10:13 Smudge Cells Not Reportable 04/26/20 10:13 Toxic Granulation Not Reportable 04/26/20 10:13 Toxic Vacuolation Not Reportable 04/26/20 10:13 Dohle Bodies Not Reportable 04/26/20 10:13 Pelger-Huet Anomaly Not Reportable 04/26/20 10:13 Barby Rods Not Reportable 04/26/20 10:13 Platelet Estimate Consistent w auto 04/26/20 10:13 Clumped Platelets Not Reportable 04/26/20 10:13 Plt Clumps, EDTA Not Reportable 04/26/20 10:13 Large Platelets Not Reportable 04/26/20 10:13 Giant Platelets Not Reportable 04/26/20 10:13 Platelet Satelliting Not Reportable 04/26/20 10:13 Plt Morphology Comment Not Reportable 04/26/20 10:13 RBC Morphology Not Reportable 04/26/20 10:13 Dimorphic RBCs Not Reportable 04/26/20 10:13 Polychromasia Not Reportable 04/26/20 10:13 Hypochromasia 1+ 04/26/20 10:13 Poikilocytosis Not Reportable 04/26/20 10:13 Anisocytosis 1+ 04/26/20 10:13 Microcytosis Not Reportable 04/26/20 10:13 Macrocytosis Not Reportable 04/26/20 10:13 Spherocytes Not Reportable 04/26/20 10:13 Pappenheimer Bodies Not Reportable 04/26/20 10:13 Sickle Cells Not Reportable 04/26/20 10:13 Target Cells Not Reportable 04/26/20 10:13 Tear Drop Cells Not Reportable 04/26/20 10:13 Ovalocytes Not Reportable 04/26/20 10:13 Helmet Cells Not Reportable 04/26/20 10:13 Snell-[place] Bodies Not Reportable 04/26/20 10:13 Felicity Rings Not Reportable 04/26/20 10:13 Marcia Cells Few 04/26/20 10:13 Bite Cells Not Reportable 04/26/20 10:13 Crenated Cell Not Reportable 04/26/20 10:13 Elliptocytes 1+ 04/26/20 10:13 Acanthocytes (Spur) Not Reportable 04/26/20 10:13 Rouleaux Not Reportable 04/26/20 10:13 Hemoglobin C Crystals Not Reportable 04/26/20 10:13 Schistocytes Few 04/26/20 10:13 Malaria parasites Not Reportable 04/26/20 10:13 Willie Bodies Not Reportable 04/26/20 10:13 Hem Pathologist Commnt No 04/26/20 10:13 PT 15.5 Sec. (12.2-14.9) H 04/12/20 06:22 INR 1.21 (0.87-1.13) H 04/12/20 06:22 D-Dimer 1259.67 ng/mlDDU (0-234) H 04/25/20 16:09 Heparin Anti-Xa Level 0.35 U.I./ml (0.3-0.7) 04/13/20 05:06 Heparin Anti-Xa, Unfract Negative (Negative) 04/17/20 22:45 ABG pH 7.505 pH Units (7.350-7.450) H 04/17/20 10:30 ABG pCO2 25.2 mm Hg 04/17/20 10:30 ABG pO2 157.9 mm Hg (80.0-90.0) H 04/17/20 10:30 ABG HCO3 19.4 mmol/L (20.0-26.0) L 04/17/20 10:30 ABG O2 Saturation 99.1 % (95.0-99.0) H 04/17/20 10:30 ABG O2 Content 12.7 (0.0-44) 04/17/20 10:30 ABG Base Excess -2.8 mmol/L (-2.0-3.0) L 04/17/20 10:30 ABG Hemoglobin 9.1 gm/dl (14.0-18.0) L 04/17/20 10:30 ABG Carboxyhemoglobin 1.6 % (0.0-5.0) 04/17/20 10:30 ABG Methemoglobin 0.4 % (0.0-1.5) 04/17/20 10:30 Oxyhemoglobin 97.0 % (95.0-99.0) 04/17/20 10:30 FiO2 35 % 04/17/20 10:30 Sodium 147 mmol/L (137-145) H 04/26/20 14:41 Potassium 4.0 mmol/L (3.6-5.0) 04/26/20 14:41 Chloride 112.3 mmol/L (98-107) H 04/26/20 14:41 Carbon Dioxide 22 mmol/L (22-30) 04/26/20 14:41 Anion Gap 17 mmol/L 04/26/20 14:41 BUN 72 mg/dL (9-20) H 04/26/20 14:41 Creatinine 1.8 mg/dL (0.8-1.3) H 04/26/20 14:41 Estimated GFR 37 ml/min 04/26/20 14:41 BUN/Creatinine Ratio 40 % 04/26/20 14:41 Glucose 211 mg/dL (75-100) H 04/26/20 14:41 POC Glucose 189 mg/dL (70-105) H 04/26/20 10:52 Lactic Acid 3.00 mmol/L (0.7-2.0) H* 04/12/20 06:22 Calcium 8.0 mg/dL (8.4-10.2) L 04/26/20 14:41 Phosphorus 5.60 mg/dL (2.5-4.5) H 04/10/20 22:50 Magnesium 2.40 mg/dL (1.7-2.3) H 04/10/20 22:50 Ferritin 135.1 ng/mL (30.0-300.0) 04/11/20 15:11 Total Bilirubin 1.10 mg/dL (0.1-1.2) 04/25/20 Unknown Direct Bilirubin 0.6 mg/dL (0-0.2) H 04/15/20 04:56 Indirect Bilirubin 0.3 mg/dL 04/15/20 04:56 AST 19 units/L (5-40) 04/25/20 Unknown ALT 37 units/L (7-56) 04/25/20 Unknown Alkaline Phosphatase 138 units/L (35-129) H 04/25/20 Unknown Lactate Dehydrogenase 664 units/L (91-180) H 04/10/20 20:51 Troponin T 0.081 ng/mL (0.00-0.029) H 04/10/20 20:04 C-Reactive Protein 5.60 mg/dL (0.00-1.30) H 04/10/20 20:51 NT-Pro-B Natriuret Pep > 37088 pg/mL (0-900) H 04/11/20 15:11 Total Protein 5.4 g/dL (6.3-8.2) L 04/25/20 Unknown Albumin 2.3 g/dL (3.9-5) L 04/25/20 Unknown Albumin/Globulin Ratio 0.7 % 04/25/20 Unknown Triglycerides 113 mg/dL (2-149) 04/10/20 20:04 Cholesterol 178 mg/dL (50-199) 04/10/20 20:04 LDL Cholesterol Direct 123 mg/dL (50-130) 04/10/20 20:04 HDL Cholesterol 41 mg/dL (40-59) 04/10/20 20:04 Cholesterol/HDL Ratio 4.34 % 04/10/20 20:04 Serotonin Release Assay See scanned result 04/17/20 22:45 Procalcitonin 2.47 ng/mL (<0.15) 04/11/20 15:11 TSH 3.640 mlU/mL (0.270-4.200) 04/13/20 10:06 Urine Color Yellow (Yellow) 04/11/20 Unknown Urine Turbidity Clear (Clear) 04/11/20 Unknown Urine pH 5.0 (5.0-7.0) 04/11/20 Unknown Ur Specific [place] 1.009 (1.003-1.030) 04/11/20 Unknown Urine Protein <15 mg/dl mg/dL (Negative) 04/11/20 Unknown Urine Glucose (UA) Neg mg/dL (Negative) 04/11/20 Unknown Urine Ketones Neg mg/dL (Negative) 04/11/20 Unknown Urine Blood Neg (Negative) 04/11/20 Unknown Urine Nitrite Neg (Negative) 04/11/20 Unknown Urine Bilirubin Neg (Negative) 04/11/20 Unknown Urine Urobilinogen < 2.0 mg/dL (<2.0) 04/11/20 Unknown Ur Leukocyte Esterase Neg (Negative) 04/11/20 Unknown Urine WBC (Auto) 1.0 /HPF (0.0-6.0) 04/11/20 Unknown Urine RBC (Auto) 2.0 /HPF (0.0-6.0) 04/11/20 Unknown U Epithel Cells (Auto) < 1.0 /HPF (0-13.0) 04/11/20 Unknown Hyaline Casts 3 /LPF 04/11/20 Unknown Urine Mucus Few /HPF 04/11/20 Unknown Urine Eosinophils None seen (None Seen) 04/11/20 Unknown Urine Creatinine 35.3 mg/dL (0.1-20.0) H 04/11/20 Unknown Urine Sodium 92 mmol/L 04/11/20 Unknown Heparin-induced Plt Ab Negative (Negative) 04/17/20 22:45 UF Heparin High Dose 0 % Release 04/17/20 22:45 CHERYL UFH Low Dose 0.1 0 % Release 04/17/20 22:45 CHERYL UFH Low Dose 0.5 0 % Release 04/17/20 22:45 Coronavirus (PCR) Negative (Negative) 04/11/20 Unknown Hepatitis A IgM Ab Non-reactive (NonReactive) 04/12/20 20: Hep Bs Antigen Non-reactive (Negative) 04/12/20:23 Hep B Core IgM Ab Non-reactive (NonReactive) 04/12/20 20:23 Hepatitis C Antibody Non-reactive (NonReactive) 04/12/20 20:23 Gay/IV: Voiding Method Incontinent IV Catheter Type [Right Peripheral IV External Jugular] IV Catheter Type [Left Peripheral IV External Jugular] IV Catheter Type [Right Upper INT / Saline Lock arm] IV Catheter Type [Left Wrist] Peripheral IV IV Catheter Type [Right INT / Saline Lock Forearm] IV Catheter Type [Right Wrist] INT / Saline Lock Active Medications - Current Medications Current Medications: Generic Name Dose Route Start Last Admin Trade Name Freq PRN Reason Stop Dose Admin Acetaminophen 650 mg 11/17/20 01:26 04/23/20 23:13 Tylenol PO 650 mg Q6H PRN Administration Pain MILD(1-3)/Fever >100.5/MANCILLA Lipase/Protease/Amylase 1 each 04/11/20 14:[address] 10,500 Unit FEEDTUBE PRN PRN For Clogged Feeding Tube Apixaban 2.5 mg 04/17/20 12:00 04/26/20 10:43 Eliquis PO 2.5 mg Q12HR [facility] Administration Protocol Arformoterol Tartrate 15 mcg 04/20/20 20:00 04/26/20 08:07 Brovana Nebu IH 15 mcg Q12HRT [facility] Administration Budesonide 0.5 mg 04/20/20 20:00 04/26/20 08:08 Pulmicort IH 0.5 mg Q12HRT [facility] Administration Norepinephrine 4 mg in 250 mls @ 7.5 mls/hr 04/25/20 17:00 04/26/20 05:06 Levophed Drip 4 Mg/Ns 250 Ml IV 4 mcg/min TITR PRAVIN 15 mls/hr Titration Protocol 2 MCG/MIN Piperacillin Sod/Tazobactam Sod 3.375 gm in 50 mls @ 100 mls/hr 04/26/20 03:00 04/26/20 11:09 Zosyn/Ns 3.375gm/50ml IV 100 mls/hr Q8H [facility] Administration Protocol Insulin Glargine 10 units 04/16/20 22:00 04/25/20 21:24 Lantus SUB-Q Not Given QHS [facility] Insulin Human Lispro 0 unit 04/16/20 16:30 04/26/20 11:43 Humalog SUB-Q Not Given ACHS [facility] Protocol Magnesium Hydroxide 30 ml 04/11/20 01:26 Milk Of Magnesia PO Q4H PRN Constipation Metoprolol Tartrate 25 mg 04/25/20 14:00 04/26/20 13:41 Metoprolol PO Not Given Q8HR [facility] Ondansetron HCl 4 mg 04/25/20 04:53 04/25/20 05:25 Zofran IV 4 mg Q8H PRN Administration Nausea And Vomiting Simple Syrup 15 ml 04/11/20 14:22 Simple Syrup FEEDTUBE PRN PRN Hypoglycemia Simple Syrup 30 ml 04/11/20 14:22 Simple Syrup FEEDTUBE PRN PRN Hypoglycemia Sodium Bicarbonate 325 mg 04/11/20 14:22 Sodium Bicarbonate FEEDTUBE PRN PRN For Clogged Feeding Tube Sodium Chloride 10 ml 04/11/20 10:00 04/26/20 10:44 Sodium Chloride Flush Syringe 10 Ml IV 10 ml BID PRAVIN Administration Sodium Chloride 10 ml 04/11/20 01:26 Sodium Chloride Flush Syringe 10 Ml IV PRN PRN LINE FLUSH Nutrition/Malnutrition Assess - Dietary Evaluation Nutrition/Malnutrition Findings: Nutrition Notes Start: 04/11/20 13: 41 Freq: Status: Active Protocol: Document 04/26/20 11:01 EN (Rec: 04/26/20 11:08 EN [id number]) Co-Sign 04/26/20 11:01 MK Nutrition Notes Initial or Follow up Reassessment Current Diagnosis Acute Kidney Injury,COPD, Coronary Artery Disease, Diabetes,Hypertension,Heart Failure Other Pertinent Diagnosis VT, Crohn's disease, seizure, colitis Current Diet Pureed w/ nectar liq Labs/Tests Na 147 BUN 71 Cr 1.8 Glu 197 Pertinent Medications Norepinephrine Height 5 ft 7 in Weight 64.4 kg Jeffrey Body Weight (kg) 67.27 BMI 22.2 Subjective/Other Information Per RN, pt consuming less than 25% of meals and has not been drinking ONS. RN reports new consult for [employer] is being ordered d/t coughing when swallowing. Percent of energy/protein needs met: 28%/17% Burn Absent Trauma Absent Difficulty In Swallowing,Chewing Current % PO Negligible Minimum of two criteria No Energy Intake (non-severe) <75% Estimated Energy Requirement >7 days #1 Nutrition Diagnosis Inadequate oral intake Diagnosis Progress(for reassessment Continues documentation) Is patient on ventilator? No Is Patient Ambulatory and/or Out of Bed No REE-([facility]-confined to bed) [phone] Calculation Used for Recommendations [facility] Additional Notes Protein Needs: 52-78 g (0.8-1. 2 g/kg) Fluid Needs: 1 mL/kcal Nutrition Intervention Change Diet Order: Pureed, restart Enteral nutrition if pt continues to eat less than 50%, or per [employer] recommendation Add Supplement/Snack (indicate name/kcal Nepro daily /protein ) Provides kCal: 425 Provides Protein (gm) 19 Goal #1 Meet at least 75% of energy an protein needs Anticipated Discharge Needs: Unable to determine at this time Follow-Up By: 04/28/20 Additional Comments F/u for PO/ONS intakes and [employer] recommendations
[2020-04-26] MEDS: INSULIN GLARGINE 100 UNITS/ML SUB-Q SCH (22:24)
[2020-04-27] MEDS: NORepinephrine/NS 4 MG-250 ML 4 MG/250 ML BAG IV SCH (03:24)
[2020-04-27] MEDS: PIPERACILLIN/TAZOBACTAM 3.375 3.375 GM/50 ML BAG IV SCH ×3 (03:39→18:05)
[2020-04-27] MEDS: METOPROLOL TARTRATE 25 MG TAB PO SCH ×3 (06:31→22:03)
[2020-04-27] MEDS: INSULIN LISPRO 100 UNIT/ML VIAL 3 mL SUB-Q SCH ×5 (08:25→21:56)
[2020-04-27] MEDS: ARFORMOTEROL 15 MCG/2 ML NEBU IH SCH ×2 (08:32→20:26)
[2020-04-27] MEDS: BUDESONIDE 0.5 MG/2 ML NEBU IH SCH ×2 (08:32→20:26)
[2020-04-27] MEDS ORDERED: FUROSEMIDE 40 MG/4 ML INJ IV SCH (08:33)
--- NOTE | 2020-04-27 08:45 | Progress Note ---
Assessment and Plan 1. Acute kidney injury: Vasomotor KIRT superimposed on CKD. CT abdomen negative for hydro. Monitor renal function. Creatinine level about the same as yesterday. Avoid nephrotoxic agents. Meds dosage based on GFR. 2. FEN: Hypernatremia, monitor. Unable to give IV fluids due to volume overload. Hypokalemia, improved, monitor. Anion-gap metabolic acidosis, improved, monitor. Monitor lytes and volume status. 3. Acute hypoxic respiratory failure: Possibly secondary to the CHF and underlying pneumonia. COVID-19 test negative. 4. Hypotension: IV Levophed. Monitor BP. 5. Chronic CHF: Monitor daily weight, intake and outputs. Followed by Cards. 6. Colitis: Monitor. Seen by GI. 7. Anemia, POA: Monitor. 8. Elevated Transaminases: Improved. 9. DM type 2. Subjective: Patient was seen and examined at the bedside. In ICU. Examination: General appearance: well-developed, appears stated age HEENT: ATNC, pupils equal Neck: trachea midline Respiratory: ctab Heart: regular, S1S2, no murmur Gastrointestinal: soft, normoactive bowel sounds, not tender Integumentary: no rash, warm and dry Neurologic: alert, moving extremities, confused Ext: no edema Subjective Date of service: 04/27/20 Principal diagnosis: CHF Objective - Vital Signs Vital signs: Vital Signs - 12hr 04/26/20 04/26/20 04/26/20 21:00 21:15 21:30 Temperature Pulse Rate 65 69 63 Pulse Rate [ From Monitor] Respiratory Rate Blood Pressure 106/58 106/57 110/48 O2 Sat by Pulse 95 94 90 Oximetry 04/26/20 04/26/20 04/26/20 21:46 22:00 22:06 Temperature Pulse Rate 70 61 58 L Pulse Rate [ From Monitor] Respiratory Rate Blood Pressure 88/54 95/56 95/56 O2 Sat by Pulse 94 96 96 Oximetry 04/26/20 04/26/20 04/26/20 22:16 22:25 22:30 Temperature Pulse Rate 63 56 L 71 Pulse Rate [ From Monitor] Respiratory 11 L Rate Blood Pressure 105/52 105/52 99/45 O2 Sat by Pulse 94 90 Oximetry 04/26/20 04/26/20 04/26/20 22:45 23:00 23:15 Temperature Pulse Rate 60 63 62 Pulse Rate [ From Monitor] Respiratory 19 22 26 H Rate Blood Pressure 97/45 99/45 96/51 O2 Sat by Pulse 93 95 92 Oximetry 04/26/20 04/26/20 04/27/20 23:30 23:45 00:00 Temperature 95.1 F L Pulse Rate 61 62 61 Pulse Rate [ 63 From Monitor] Respiratory 20 13 11 L Rate Blood Pressure 104/48 104/53 102/83 O2 Sat by Pulse 94 94 94 Oximetry 04/27/20 04/27/20 04/27/20 00:16 00:30 00:46 Temperature Pulse Rate 62 61 60 Pulse Rate [ From Monitor] Respiratory 21 14 14 Rate Blood Pressure 100/48 97/52 127/100 O2 Sat by Pulse 96 97 97 Oximetry 04/27/20 04/27/20 04/27/20 01:00 01:15 01:30 Temperature Pulse Rate 62 63 60 Pulse Rate [ From Monitor] Respiratory 21 18 12 Rate Blood Pressure 101/48 94/52 100/50 O2 Sat by Pulse 97 98 98 Oximetry 04/27/20 04/27/20 04/27/20 01:46 02:00 02:15 Temperature Pulse Rate 61 59 L 62 Pulse Rate [ From Monitor] Respiratory 15 12 12 Rate Blood Pressure 94/50 94/50 97/47 O2 Sat by Pulse 96 98 98 Oximetry 04/27/20 04/27/20 04/27/20 02:30 02:46 03:00 Temperature Pulse Rate 65 63 63 Pulse Rate [ From Monitor] Respiratory 23 16 20 Rate Blood Pressure 97/47 81/49 81/49 O2 Sat by Pulse 95 93 95 Oximetry 04/27/20 04/27/20 04/27/20 03:15 03:30 03:45 Temperature Pulse Rate 64 65 62 Pulse Rate [ From Monitor] Respiratory 16 21 12 Rate Blood Pressure 75/44 75/44 87/51 O2 Sat by Pulse 96 95 94 Oximetry 04/27/20 04/27/20 04/27/20 03:47 04:00 04:16 Temperature 95.1 F L Pulse Rate 61 64 Pulse Rate [ 66 From Monitor] Respiratory 14 18 Rate Blood Pressure 87/51 88/45 O2 Sat by Pulse 94 93 Oximetry 04/27/20 04/27/20 04/27/20 04:30 04:46 05:00 Temperature Pulse Rate 64 66 62 Pulse Rate [ From Monitor] Respiratory 14 14 16 Rate Blood Pressure 88/45 92/65 92/65 O2 Sat by Pulse 95 95 93 Oximetry 04/27/20 04/27/20 04/27/20 05:16 05:30 05:46 Temperature Pulse Rate 62 61 65 Pulse Rate [ From Monitor] Respiratory 19 19 21 Rate Blood Pressure 92/64 92/64 82/46 O2 Sat by Pulse 96 93 95 Oximetry 04/27/20 04/27/20 04/27/20 06:00 06:16 06:30 Temperature Pulse Rate 64 63 60 Pulse Rate [ From Monitor] Respiratory 24 23 33 H Rate Blood Pressure 82/46 87/44 102/47 O2 Sat by Pulse 94 86 93 Oximetry 04/27/20 04/27/20 04/27/20 06:31 06:46 07:00 Temperature Pulse Rate 59 L 60 58 L Pulse Rate [ From Monitor] Respiratory 17 14 Rate Blood Pressure 102/47 96/46 96/46 O2 Sat by Pulse 96 97 Oximetry 04/27/20 04/27/20 04/27/20 07:15 07:30 07:45 Temperature Pulse Rate 59 L 55 L 57 L Pulse Rate [ From Monitor] Respiratory 14 18 16 Rate Blood Pressure 98/50 96/46 106/61 O2 Sat by Pulse 99 100 96 Oximetry 04/27/20 04/27/20 08:00 08:34 Temperature 97.9 F Pulse Rate 58 L Pulse Rate [ 58 L From Monitor] Respiratory 11 L Rate Blood Pressure 106/61 O2 Sat by Pulse 93 97 Oximetry - Lab 04/27/20 08:06 04/27/20 08:06 Most recent lab results ABG pH 7.505 pH Units (7.350-7.450) H 04/17/20 10:30 ABG pCO2 25.2 mm Hg 04/17/20 10:30 ABG pO2 157.9 mm Hg (80.0-90.0) H 04/17/20 10:30 ABG HCO3 19.4 mmol/L (20.0-26.0) L 04/17/20 10:30 ABG O2 Saturation 99.1 % (95.0-99.0) H 04/17/20 10:30 Calcium 8.0 mg/dL (8.4-10.2) L 04/26/20 14:41 Phosphorus 5.60 mg/dL (2.5-4.5) H 04/10/20 22:50 Magnesium 2.40 mg/dL (1.7-2.3) H 04/10/20 22:50 Urine Creatinine 35.3 mg/dL (0.1-20.0) H 04/11/20 Unknown Urine Sodium 92 mmol/L 04/11/20 Unknown Medications & Allergies - Medications Allergies/Adverse Reactions: Allergies Sulfa (Sulfonamide Antibiotics) Allergy (Verified 07/30/18 17:44) Rash Home Medications: Home Medications Medication Instructions Recorded Confirmed Last Taken Type Gabapentin 300 mg PO BID 09/19/16 04/21/20 09/18/16 History 300 mg Metformin HCl [metFORMIN ER 500 mg PO BIDWM 03/28/17 04/21/20 Unknown History Gastric] AtorvaSTATin 10 mg PO QHS #30 tablet 12/21/17 04/21/20 Unknown Rx Ranolazine ER [Ranexa ER] 500 mg PO BID #60 tablet 12/21/17 04/21/20 Unknown Rx Aspirin 325 mg PO QDAY #30 tablet 01/12/18 04/21/20 04/21/20 Rx Diphenoxylate/Atropine [Lomotil] 1 tab PO Q8H PRN 01/15/18 04/21/20 Unknown History Insulin Lispro [HumaLOG VIAL] See Protocol SQ ACHS 01/15/18 04/21/20 04/21/20 18:46 History Promethazine [Phenergan] 25 mg PO Q4H PRN 01/15/18 04/21/20 Unknown History Albuterol Mdi (or & Nicu Only) 2 puff IH Q4HR PRN #1 inhalation 12/21/18 04/21/20 04/21/20 18:46 Rx [ProAir HFA Inhaler] Furosemide [Lasix TAB] 20 mg PO QDAY #30 tablet 02/03/20 04/21/20 Unknown Rx Metoprolol Xl [Metoprolol 25 mg PO DAILY #60 tablet 02/03/20 04/21/20 04/21/20 18:45 Rx SUCCINATE ER TAB] levETIRAcetam [Keppra TAB] 500 mg PO BID #120 tablet 02/03/20 04/21/20 Unknown Rx levoFLOXacin [Levaquin TAB] 500 mg PO QDAY #5 tablet 02/03/20 04/21/20 Unknown Rx Active Medications: Generic Name Dose Route Start Last Admin Trade Name Freq PRN Reason Stop Dose Admin Acetaminophen 650 mg 04/11/20 01:26 04/23/20 23:13 Tylenol PO 650 mg Q6H PRN Administration Pain MILD(1-3)/Fever >100.5/MANCILLA Lipase/Protease/Amylase 1 each 04/11/20 14:[address] 10,500 Unit FEEDTUBE PRN PRN For Clogged Feeding Tube Apixaban 2.5 mg 04/17/20 12:00 04/26/20 22:24 Eliquis PO 2.5 mg Q12HR PRAVIN Administration Protocol Arformoterol Tartrate 15 mcg 04/20/20 20:00 04/27/20 08:32 Brovana Nebu IH 15 mcg Q12HRT PRAVIN Administration Budesonide 0.5 mg 04/20/20 20:00 04/27/20 08:32 Pulmicort IH 0.5 mg Q12HRT PRAVIN Administration Furosemide 40 mg 04/27/20 08:33 Lasix IV 04/27/20 10:33 ONCE PRAVIN Norepinephrine 4 mg in 250 mls @ 7.5 mls/hr 04/25/20 17:00 04/27/20 03:24 Levophed Drip 4 Mg/Ns 250 Ml IV 2 mcg/min TITR PRAVIN 7.5 mls/hr Administration Protocol 2 MCG/MIN Piperacillin Sod/Tazobactam Sod 3.375 gm in 50 mls @ 100 mls/hr 04/26/20 03:00 04/27/20 03:39 Zosyn/Ns 3.375gm/50ml IV 100 mls/hr Q8H PRAVIN Administration Protocol Insulin Glargine 10 units 04/16/20 22:00 04/26/20 22:24 Lantus SUB-Q 10 units QHS PRAVIN Administration Insulin Human Lispro 0 unit 04/16/20 16:30 04/27/20 08:26 Humalog SUB-Q Not Given ACHS [facility] Protocol Magnesium Hydroxide 30 ml 04/11/20 01:26 Milk Of Magnesia PO Q4H PRN Constipation Metoprolol Tartrate 25 mg 04/25/20 14:00 04/27/20 06:31 Metoprolol PO Not Given Q8HR PRAVIN Ondansetron HCl 4 mg 04/25/20 04:53 04/25/20 05:25 Zofran IV 4 mg Q8H PRN Administration Nausea And Vomiting Simple Syrup 15 ml 04/11/20 14:22 Simple Syrup FEEDTUBE PRN PRN Hypoglycemia Simple Syrup 30 ml 04/11/20 14:22 Simple Syrup FEEDTUBE PRN PRN Hypoglycemia Sodium Bicarbonate 325 mg 04/11/20 14:22 Sodium Bicarbonate FEEDTUBE PRN PRN For Clogged Feeding Tube Sodium Chloride 10 ml 04/11/20 10:00 04/26/20 10:44 Sodium Chloride Flush Syringe 10 Ml IV 10 ml BID PRAVIN Administration Sodium Chloride 10 ml 04/11/20 01:26 Sodium Chloride Flush Syringe 10 Ml IV PRN PRN LINE FLUSH
[2020-04-27 09:01] LABS: Basophils # (Auto) 0.1 K/mm3 (0.0-0.1); Basophils % (Auto) 0.7 % (0.0-1.8); Eosinophils # (Auto) 0.1 K/mm3 (0.0-0.4); Eosinophils % (Auto) 1.2 % (0.0-4.3); Hematocrit 23.3 % (35.5-45.6); Hemoglobin 7.3 gm/dl (11.8-15.2); Lymphocytes # (Auto) 0.7 K/mm3 (1.2-5.4); Lymphocytes % (Auto) 6.6 % (13.4-35.0); Mean Corpuscular HGB Conc 31 % (32-34); Mean Corpuscular Volume 78 fl (84-94); Monocytes # (Auto) 0.3 K/mm3 (0.0-0.8); Monocytes % (Auto) 2.7 % (0.0-7.3); Platelet Count 58 K/mm3 (140-440); Red Cell Distribution Width 21.9 % (13.2-15.2)
[2020-04-27 09:24] LABS: Calcium 8.1 mg/dL (8.4-10.2)
[2020-04-27 09:26] LABS: Albumin 2.5 g/dL (3.9-5); Calcium 7.9 mg/dL (8.4-10.2)
--- NOTE | 2020-04-27 10:30 | Progress Note ---
Assessment and Plan Chronic systolic heart failure LVEF 15-20% by echo 01/2020 VQ scan reports a low probability for PE. COVID 19 test was negative Paroxysmal Atrial fibrillation vs flutter on metoprolol for suppression initiated on low dose Eliquis due to patient's low body weight of 64 kg and evidence of chronic anemia. Dehydration Hx of Ischemic cardiomyopathy noncompliant with outpatient cardiac follow up. Hx of CAD Abdominal pain CT scan of the abdomen suggestive of colitis. Renal insufficiency Due to severe anemia and low platelets will discontinue Eliquis therapy. Continue medical therapy for chronic systolic heart failure and paroxysmal atrial fibrillation when blood pressure allows. Subjective Date of service: 04/27/20 Principal diagnosis: CHF Interval history: Patient is alert with confusion. Remains on pressors for support. Labs shows HCT is trending downwards. Objective Vital Signs Temp Pulse Pulse Pulse Pulse Pulse Resp 04/27/20 08:48 65 04/27/20 08:34 04/27/20 08:00 97.9 F 58 L 59 L 11 L 04/27/20 07:45 57 L 16 04/27/20 07:30 55 L 18 04/27/20 07:15 59 L 14 04/27/20 07:00 58 L 14 04/27/20 06:46 60 17 04/27/20 06:31 59 L 04/27/20 06:30 60 33 H 04/27/20 06:16 63 23 04/27/20 06:00 64 24 04/27/20 05:46 65 21 04/27/20 05:30 61 19 04/27/20 05:16 62 19 04/27/20 05:00 62 16 04/27/20 04:46 66 14 04/27/20 04:30 64 14 04/27/20 04:16 64 18 04/27/20 04:00 61 66 14 04/27/20 03:47 95.1 F L 04/27/20 03:45 62 12 04/27/20 03:30 65 21 04/27/20 03:15 64 16 04/27/20 03:00 63 20 04/27/20 02:46 63 16 04/27/20 02:30 65 23 04/27/20 02:15 62 12 04/27/20 02:00 59 L 12 04/27/20 01:46 61 15 04/27/20 01:30 60 12 04/27/20 01:15 63 18 04/27/20 01:00 62 21 04/27/20 00:46 60 14 04/27/20 00:30 61 14 04/27/20 00:16 62 21 04/27/20 00:00 95.1 F L 61 63 11 L 04/26/20 23:45 62 13 04/26/20 23:30 61 20 04/26/20 23:15 62 26 H 04/26/20 23:00 63 22 04/26/20 22:45 60 19 04/26/20 22:30 71 11 L 04/26/20 22:25 56 L 04/26/20 22:16 63 04/26/20 22:06 58 L 04/26/20 22:00 61 04/26/20 21:46 70 04/26/20 21:30 63 04/26/20 21:15 69 04/26/20 21:00 65 04/26/20 20:45 69 04/26/20 20:30 64 04/26/20 20:15 65 04/26/20 20:00 94.0 F L 57 L 72 16 04/26/20 19:55 04/26/20 19:53 59 L 04/26/20 19:46 61 04/26/20 19:30 63 04/26/20 19:15 67 04/26/20 19:00 67 04/26/20 18:45 66 04/26/20 18:30 68 04/26/20 18:16 63 04/26/20 18:00 68 04/26/20 17:45 65 04/26/20 17:30 57 L 04/26/20 17:15 57 L 04/26/20 17:00 69 04/26/20 16:46 61 04/26/20 16:30 63 04/26/20 16:15 68 04/26/20 16:00 98.1 F 62 55 L 55 L 17 04/26/20 15:46 70 04/26/20 15:30 67 04/26/20 15:19 04/26/20 15:16 64 04/26/20 15:00 61 04/26/20 14:45 60 04/26/20 14:30 60 04/26/20 14:15 69 04/26/20 14:00 61 04/26/20 13:46 63 04/26/20 13:41 71 04/26/20 13:30 103 H 04/26/20 13:15 60 04/26/20 13:00 60 04/26/20 12:46 61 04/26/20 12:30 61 04/26/20 12:16 67 04/26/20 12:00 98 F 60 61 61 61 17 04/26/20 11:45 58 L 04/26/20 11:30 60 04/26/20 11:16 63 04/26/20 11:00 64 04/26/20 10:45 58 L 18 04/26/20 10:30 57 L 16 Resp BP Pulse Ox 04/27/20 08:48 20 04/27/20 08:34 97 04/27/20 08:00 106/61 93 04/27/20 07:45 106/61 96 04/27/20 07:30 96/46 100 04/27/20 07:15 98/50 99 04/27/20 07:00 96/46 97 04/27/20 06:46 96/46 96 04/27/20 06:31 102/47 04/27/20 06:30 102/47 93 04/27/20 06:16 87/44 86 04/27/20 06:00 82/46 94 04/27/20 05:46 82/46 95 04/27/20 05:30 92/64 93 04/27/20 05:16 92/64 96 04/27/20 05:00 92/65 93 04/27/20 04:46 92/65 95 04/27/20 04:30 88/45 95 04/27/20 04:16 88/45 93 04/27/20 04:00 87/51 94 04/27/20 03:47 04/27/20 03:45 87/51 94 04/27/20 03:30 75/44 95 04/27/20 03:15 75/44 96 04/27/20 03:00 81/49 95 04/27/20 02:46 81/49 93 04/27/20 02:30 97/47 95 04/27/20 02:15 97/47 98 04/27/20 02:00 94/50 98 04/27/20 01:46 94/50 96 04/27/20 01:30 100/50 98 04/27/20 01:15 94/52 98 04/27/20 01:00 101/48 97 04/27/20 00:46 127/100 97 04/27/20 00:30 97/52 97 04/27/20 00:16 100/48 96 04/27/20 00:00 102/83 94 04/26/20 23:45 104/53 94 02 23:30 104/48 94 04/26/20 23:15 96/51 92 04/26/20 23:00 99/45 95 04/26/20 22:45 97/45 93 04/26/20 22:30 99/45 90 04/26/20 22:25 105/52 04/26/20 22:16 105/52 94 04/26/20 22:06 95/56 96 04/26/20 22:00 95/56 96 04/26/20 21:46 88/54 94 04/26/20 21:30 110/48 90 04/26/20 21:15 106/57 94 04/26/20 21:00 106/58 95 04/26/20 20:45 114/57 94 04/26/20 20:30 112/49 96 04/26/20 20:15 112/59 97 04/26/20 20:00 112/54 99 04/26/20 19:55 97 04/26/20 19:53 24 04/26/20 19:46 111/61 98 04/26/20 19:30 108/58 94 04/26/20 19:15 109/55 93 04/26/20 19:00 115/57 94 04/26/20 18:45 115/67 94 04/26/20 18:30 108/62 94 04/26/20 18:16 105/63 93 04/26/20 18:00 114/57 97 04/26/20 17:45 114/48 96 04/26/20 17:30 113/54 99 04/26/20 17:15 108/53 96 04/26/20 17:00 110/57 91 04/26/20 16:46 114/48 92 04/26/20 16:30 129/53 95 04/26/20 16:15 124/64 94 04/26/20 16:00 120/61 94 04/26/20 15:46 110/56 94 04/26/20 15:30 102/48 96 04/26/20 15:19 96 04/26/20 15:16 109/53 95 04/26/20 15:00 99/43 94 04/26/20 14:45 110/58 96 04/26/20 14:30 118/56 94 04/26/20 14:15 119/51 94 04/26/20 14:00 115/47 90 04/26/20 13:46 108/39 91 04/26/20 13:41 117/42 04/26/20 13:30 117/42 91 04/26/20 13:15 106/44 90 04/26/20 13:00 103/46 98 04/26/20 12:46 112/46 96 04/26/20 12:30 107/48 98 04/26/20 12:16 104/43 85 04/26/20 12:00 94/41 96 04/26/20 11:45 99/39 96 04/26/20 11:30 107/48 97 04/26/20 11:16 109/43 97 04/26/20 11:00 108/44 96 04/26/20 10:45 93/49 98 04/26/20 10:30 99/41 98 - Physical Examination General: No Apparent Distress, Cachectic HEENT: Positive: PERRL Neck: Positive: trachea midline Cardiac: Positive: Reg Rate and Rhythm Lungs: Positive: Decreased Breath Sounds, Rales Neuro: Positive: Weakness Extremities: Absent: edema - Labs and Meds Cardiac Enzymes 04/27/20 Range/Units 08:06 AST 14 (5-40) units/L CBC 04/26/20 04/27/20 Range/Units 10:13 08:06 WBC 15.2 H 9.9 (4.5-11.0) K/mm3 RBC 3.31 L 3.00 L (3.65-5.03) M/mm3 Hgb 7.9 L 7.3 L (11.8-15.2) gm/dl Hct 25.9 L 23.3 L (35.5-45.6) % Plt Count 70 L 58 L (140-440) K/mm3 Lymph # (Auto) 0.7 L (1.2-5.4) K/mm3 [place] # (Auto) 0.3 (0.0-0.8) K/mm3 Eos # (Auto) 0.1 (0.0-0.4) K/mm3 Baso # (Auto) 0.1 (0.0-0.1) K/mm3 Comprehensive Metabolic Panel 04/26/20 04/27/20 04/27/20 Range/Units 14:41 08:06 08:06 Sodium 147 H 150 H 150 H (137-145) mmol/L Potassium 4.0 3.8 3.8 (3.6-5.0) mmol/L Chloride 112.3 H 115.0 H 115.2 H (98-107) mmol/L Carbon Dioxide 22 25 25 (22-30) mmol/L BUN 72 H 70 H 68 H (9-20) mg/dL Creatinine 1.8 H 2.0 H 2.0 H (0.8-1.3) mg/dL Glucose 211 H 97 97 (75-100) mg/dL Calcium 8.0 L 8.1 L 7.9 L (8.4-10.2) mg/dL AST 14 (5-40) units/L ALT 29 (7-56) units/L Alkaline Phosphatase 97 (35-129) units/L Total Protein 5.4 L (6.3-8.2) g/dL Albumin 2.5 L (3.9-5) g/dL
--- NOTE | 2020-04-27 10:38 | Progress Note ---
Assessment and Plan - Patient Problems (1) Acute and chronic respiratory failure Current Visit: Yes Status: Acute (2) Acute exacerbation of CHF (congestive heart failure) Current Visit: Yes Status: Acute (3) Coronary artery disease Current Visit: Yes Status: Acute Subjective Date of service: 04/27/20 Principal diagnosis: CHF Interval history: no cv c/o Objective Vital Signs Temp Pulse Pulse Pulse Pulse Pulse Resp 04/27/20 08:48 65 04/27/20 08:34 04/27/20 08:00 97.9 F 58 L 59 L 11 L 04/27/20 07:45 57 L 16 04/27/20 07:30 55 L 18 04/27/20 07:15 59 L 14 04/27/20 07:00 58 L 14 04/27/20 06:46 60 17 04/27/20 06:31 59 L 04/27/20 06:30 60 33 H 04/27/20 06:16 63 23 04/27/20 06:00 64 24 04/27/20 05:46 65 21 04/27/20 05:30 61 19 04/27/20 05:16 62 19 04/27/20 05:00 62 16 04/27/20 04:46 66 14 04/27/20 04:30 64 14 04/27/20 04:16 64 18 04/27/20 04:00 61 66 14 04/27/20 03:47 95.1 F L 04/27/20 03:45 62 12 04/27/20 03:30 65 21 04/27/20 03:15 64 16 04/27/20 03:00 63 20 04/27/20 02:46 63 16 04/27/20 02:30 65 23 04/27/20 02:15 62 12 04/27/20 02:00 59 L 12 04/27/20 01:46 61 15 04/27/20 01:30 60 12 04/27/20 01:15 63 18 04/27/20 01:00 62 21 04/27/20 00:46 60 14 04/27/20 00:30 61 14 04/27/20 00:16 62 21 04/27/20 00:00 95.1 F L 61 63 11 L 04/26/20 23:45 62 13 04/26/20 23:30 61 20 04/26/20 23:15 62 26 H 12/02/20 23:00 63 22 04/26/20 22:45 60 19 04/26/20 22:30 71 11 L 04/26/20 22:25 56 L 04/26/20 22:16 63 04/26/20 22:06 58 L 04/26/20 22:00 61 04/26/20 21:46 70 04/26/20 21:30 63 04/26/20 21:15 69 04/26/20 21:00 65 04/26/20 20:45 69 04/26/20 20:30 64 04/26/20 20:15 65 04/26/20 20:00 94.0 F L 57 L 72 16 04/26/20 19:55 04/26/20 19:53 59 L 04/26/20 19:46 61 04/26/20 19:30 63 04/26/20 19:15 67 04/26/20 19:00 67 04/26/20 18:45 66 04/26/20 18:30 68 04/26/20 18:16 63 04/26/20 18:00 68 04/26/20 17:45 65 04/26/20 17:30 57 L 04/26/20 17:15 57 L 04/26/20 17:00 69 04/26/20 16:46 61 04/26/20 16:30 63 04/26/20 16:15 68 04/26/20 16:00 98.1 F 62 55 L 55 L 17 04/26/20 15:46 70 04/26/20 15:30 67 04/26/20 15:19 04/26/20 15:16 64 04/26/20 15:00 61 04/26/20 14:45 60 04/26/20 14:30 60 04/26/20 14:15 69 04/26/20 14:00 61 04/26/20 13:46 63 04/26/20 13:41 71 04/26/20 13:30 103 H 04/26/20 13:15 60 04/26/20 13:00 60 04/26/20 12:46 61 04/26/20 12:30 61 04/26/20 12:16 67 04/26/20 12:00 98 F 60 61 61 61 17 04/26/20 11:45 58 L 12/02/20 11:30 60 04/26/20 11:16 63 04/26/20 11:00 64 04/26/20 10:45 58 L 18 Resp BP Pulse Ox 04/27/20 08:48 20 04/27/20 08:34 97 04/27/20 08:00 106/61 93 04/27/20 07:45 106/61 96 04/27/20 07:30 96/46 100 04/27/20 07:15 98/50 99 04/27/20 07:00 96/46 97 04/27/20 06:46 96/46 96 04/27/20 06:31 102/47 04/27/20 06:30 102/47 93 04/27/20 06:16 87/44 86 04/27/20 06:00 82/46 94 04/27/20 05:46 82/46 95 04/27/20 05:30 92/64 93 04/27/20 05:16 92/64 96 04/27/20 05:00 92/65 93 04/27/20 04:46 92/65 95 04/27/20 04:30 88/45 95 04/27/20 04:16 88/45 93 04/27/20 04:00 87/51 94 04/27/20 03:47 04/27/20 03:45 87/51 94 04/27/20 03:30 75/44 95 04/27/20 03:15 75/44 96 04/27/20 03:00 81/49 95 04/27/20 02:46 81/49 93 04/27/20 02:30 97/47 95 04/27/20 02:15 97/47 98 04/27/20 02:00 94/50 98 04/27/20 01:46 94/50 96 04/27/20 01:30 100/50 98 04/27/20 01:15 94/52 98 04/27/20 01:00 101/48 97 04/27/20 00:46 127/100 97 04/27/20 00:30 97/52 97 04/27/20 00:16 100/48 96 04/27/20 00:00 102/83 94 04/26/20 23:45 104/53 94 12/02/20 23:30 104/48 94 04/26/20 23:15 96/51 92 04/26/20 23:00 99/45 95 04/26/20 22:45 97/45 93 04/26/20 22:30 99/45 90 04/26/20 22:25 105/52 04/26/20 22:16 105/52 94 04/26/20 22:06 95/56 96 04/26/20 22:00 95/56 96 04/26/20 21:46 88/54 94 04/26/20 21:30 110/48 90 04/26/20 21:15 106/57 94 04/26/20 21:00 106/58 95 04/26/20 20:45 114/57 94 04/26/20 20:30 112/49 96 04/26/20 20:15 112/59 97 04/26/20 20:00 112/54 99 04/26/20 19:55 97 04/26/20 19:53 24 04/26/20 19:46 111/61 98 04/26/20 19:30 108/58 94 04/26/20 19:15 109/55 93 04/26/20 19:00 115/57 94 04/26/20 18:45 115/67 94 04/26/20 18:30 108/62 94 04/26/20 18:16 105/63 93 04/26/20 18:00 114/57 97 04/26/20 17:45 114/48 96 04/26/20 17:30 113/54 99 04/26/20 17:15 108/53 96 04/26/20 17:00 110/57 91 04/26/20 16:46 114/48 92 04/26/20 16:30 129/53 95 04/26/20 16:15 124/64 94 04/26/20 16:00 120/61 94 04/26/20 15:46 110/56 94 04/26/20 15:30 102/48 96 04/26/20 15:19 96 04/26/20 15:16 109/53 95 04/26/20 15:00 99/43 94 04/26/20 14:45 110/58 96 04/26/20 14:30 118/56 94 04/26/20 14:15 119/51 94 04/26/20 14:00 115/47 90 04/26/20 13:46 108/39 91 04/26/20 13:41 117/42 04/26/20 13:30 117/42 91 04/26/20 13:15 106/44 90 04/26/20 13:00 103/46 98 04/26/20 12:46 112/46 96 04/26/20 12:30 107/48 98 04/26/20 12:16 104/43 85 04/26/20 12:00 94/41 96 04/26/20 11:45 99/39 96 04/26/20 11:30 107/48 97 04/26/20 11:16 109/43 97 04/26/20 11:00 108/44 96 04/26/20 10:45 93/49 98 - Physical Examination General: No Apparent Distress, Cachectic HEENT: Positive: PERRL Neck: Positive: trachea midline Cardiac: Positive: Irregularly Regular Lungs: Positive: clear to auscultation Neuro: Positive: Grossly Intact, Weakness Abdomen: Positive: Soft Skin: Positive: Clear Extremities: Absent: edema - Labs and Meds Cardiac Enzymes 04/27/20 Range/Units 08:06 AST 14 (5-40) units/L CBC 04/26/20 04/27/20 Range/Units 10:13 08:06 WBC 15.2 H 9.9 (4.5-11.0) K/mm3 RBC 3.31 L 3.00 L (3.65-5.03) M/mm3 Hgb 7.9 L 7.3 L (11.8-15.2) gm/dl Hct 25.9 L 23.3 L (35.5-45.6) % Plt Count 70 L 58 L (140-440) K/mm3 Lymph # (Auto) 0.7 L (1.2-5.4) K/mm3 [place] # (Auto) 0.3 (0.0-0.8) K/mm3 Eos # (Auto) 0.1 (0.0-0.4) K/mm3 Baso # (Auto) 0.1 (0.0-0.1) K/mm3 Comprehensive Metabolic Panel 04/26/20 04/27/20 04/27/20 Range/Units 14:41 08:06 08:06 Sodium 147 H 150 H 150 H (137-145) mmol/L Potassium 4.0 3.8 3.8 (3.6-5.0) mmol/L Chloride 112.3 H 115.0 H 115.2 H (98-107) mmol/L Carbon Dioxide 22 25 25 (22-30) mmol/L BUN 72 H 70 H 68 H (9-20) mg/dL Creatinine 1.8 H 2.0 H 2.0 H (0.8-1.3) mg/dL Glucose 211 H 97 97 (75-100) mg/dL Calcium 8.0 L 8.1 L 7.9 L (8.4-10.2) mg/dL AST 14 (5-40) units/L ALT 29 (7-56) units/L Alkaline Phosphatase 97 (35-129) units/L Total Protein 5.4 L (6.3-8.2) g/dL Albumin 2.5 L (3.9-5) g/dL
--- NOTE | 2020-04-27 12:53 | Progress Note ---
Assessment and Plan Assessment and plan: ---Acute respiratory failure Current Visit: Yes Status: Acute Plan to address problem: Improved --Acute on chronic systolic CHF (congestive heart failure) Current Visit: Yes Status: Acute Plan to address problem: Holding Lasix due to KIRT Will monitor daily weight, inputs and outputs. Monitor renal function closely Cardiology on board --CKD Current Visit: Yes Status: Acute Plan to address problem: Had KIRT 2/2 vasomotor nephropathy on admission but has resolved Cr 1.8 --Colitis Current Visit: Yes Status: Acute Plan to address problem: Resolved GI recommendations appreciated --Arrhythmias-atrial fibrillation versus nonsustained ventricular tachycardia Current Visit: Yes Status: Acute Plan to address problem: Initially started on amiodarone but discontinued due to elevated LFTs Now on metoprolol every 6 and rate is currently controlled. Started on low-dose apixaban 2.5 mg twice daily Cardiology recommendations appreciated --Diabetes mellitus type 2 in nonobese Current Visit: No Status: Acute Plan to address problem: Lantus and sliding scale insulin. --Hyperkalemia and metabolic acidosis Current Visit: Yes Status: Acute Plan to address problem: Resolved --T12 compression fracture Current Visit: No Status: Likely chronic Plan to address problem: CT abdomen showed acute appearing T12 compression fracture 04/14. MRI thoracic without contrast ordered to further evaluate. 04/15. Patient is agitated and unable to get an MRI. 04/16. Awaiting MRI without contrast thoracic. Plan to use sedatives today. Informed RN. If positive for acute fracture, patient will need to be transferred for neurosurgery evaluation. 04/17. MRI thoracic and lumbar showed acute T12 compression fracture. Discussed case with [place] neurosurgery immigration investigator who advised no acute intervention is necessary at this time-advised TLSO brace when patient is sitting or ambulatory. He will need follow-up with Dr. Dalton Jack, Dr. Alan Henson, Dr. Tyson Clark [contact number [phone]] after discharge. ---Elevated LFTs Current Visit: Yes Status: Acute Plan to address problem: Improving US abdomen shows no acute pathology ---Infrarenal aortic aneurysm Current Visit: No Status: Acute Plan to address problem: 3.8 cm in diameter Needs to follow-up with vascular surgery at discharge for monitoring -Shock Current Visit: No Status: Acute Plan to address problem: Now on pressors. Continue antibiotics. Await blood culture results VQ scan to rule out PE -- DVT prophylaxis Current Visit: No Status: Acute Plan to address problem: Hold heparin for now. Started on anticoagulation per cardiology. HIT antibody sent --Full code status Current Visit: No Status: Acute Disposition-home with hospice as per patient son plan stable 04/11. Patient seen and examined at bedside this morning. Patient is on BiPAP. Patient is eager to go home. Otherwise denies any chest pain or palpitations. Patient CT showed possible compression fracture of T12, it is unknown if this is new. We will get MRI without contrast of the thoracic and lumbar to further evaluate. If patient actually has an acute compression fracture, he will need to have a neurosurgery evaluation so will need to be transferred to another facility for this. Otherwise, patient continue to monitor patient's respiratory status while in the IMCU. Patient reportedly failed a swallow evaluation and will need to have an NG tube placement. Tried to call son on number provided in the chart and left a message. Awaiting callback. Labs reviewed-patient has elevated inflammatory [id number], LDH. COVID-19 test has been ordered. Started patient on steroids. Ordered stat BMP, ABG, D-dimer, proBNP, ferritin, LDH. 04/12. COVID -19 test is negative. His breathing has improved so was placed on nasal cannula. Cardiology adjusted meds today. He failed swallow evaluation yesterday. He requests for food. Will reattempt swallow evaluation. Speech therapy consult. 04/13. Overnight, he developed VT and was started on amiodarone. HR better this AM. Cardiology will review medications. Patient seen and examined at bedside this AM. He requests for food. He failed a repeat speech evaluation and will need barium swallow. May need PEG placement if he fails. NG tube in place. Vitals reviewed 04/14. Heart rate improved. Remains n.p.o. with NG tube feeds. Video swallow evaluation shows mild abnormal study. Speech therapist to see patient. Patient has not been able to have an MRI of the back due to agitation. He had a CT during the admission that showed possible compression fracture of T12 but this has not been fully evaluated due to patient's ongoing conditions. Labs reviewed-renal function is worse. Discontinue Lasix. 04/15. Has been started on a diet and is tolerating. He pulled out his NG tube last night. Okay to leave NG tube for now. Plan to get an MRI performed today with sedative to evaluate T12 fracture. Patient denies any back pain. Renal function slightly improved today after Lasix was discontinued. Continue IV hydration. Nephrology recommendations appreciated 04/16. He feels better today. MRI could not be done yesterday. Hopefully patient can have an MRI done today. Creatinine 3.1 today. Patient will need placement but will need to have evaluation of possible T12 fracture prior to discharge 04/17. MRI thoracic and lumbar showed acute T12 compression fracture. Discussed case with [place] neurosurgery immigration investigator who advised no acute intervention is necessary at this time-advised TLSO brace when patient is sitting or ambulatory. He will need follow-up with Dr. Dalton Jack, Dr. Alan Henson, Dr. Tyson Clark [contact number [phone]] after discharge. 04/18. Await Nephrology recs for d/c plans 04/19/2020. Patient reportedly with choking/coughing with swallowing. We will change to n.p.o. status right now. Speech reevaluation. Check chest x-ray to rule out aspiration pneumonia. Await nephrology recommendations for discharge. Creatinine slowly improving. CT of abdomen negative for hydronephrosis. BUN increasing. Therefore, we will check Hemoccult of stool to rule out GI bleed. Hemoglobin has been stable. 04/20/2020. Repeat chest x-ray reveals worsening bibasilar opacities. Pulmonary consulted. Doppler of left upper extremity for swelling. PT evaluation recommends subacute rehab 04/21/2020. Await pulmonary consultation for worsening bibasilar opacities. Doppler of left upper extremity pending. PT evaluation recommends subacute rehab. Creatinine has improved to near baseline of 1.8. Nephrology following 04/22/2020. Pulmonary sees no need for antibiotics or further evaluation of bibasilar opacities with CT scan. Continue current COPD treatment. Beta blockers increase for A. fib per cardiology. Await Doppler left upper extremity. PT evaluation recommends subacute rehab but case management reports patient's son Haseeb [phone]. Haseeb wants patient to return home with [facility]. 04/23/2020. Continue beta-blockers for atrial fibrillation per cardiology. Await left upper extremity Doppler ultrasound for left upper extremity swelling. PT evaluation recommends subacute rehab but case management reports patient's son Haseeb [phone]. Haseeb wants patient to return home with [facility]. Creatinine appears to be improved to baseline. Anticipate discharge in the next 1 to 2 days. 04/24/2020. Continue beta-blockers for atrial fibrillation per cardiology. Rocío it left upper extremity Doppler ultrasound for left upper extremity swelling. Haseeb (son [phone]) wants patient to return home with [facility]. Creatinine appears to be improved to baseline. Patient now with hypernatremia. ?Tenuous IV fluid hydration--defer to nephrology. 04/25. Blood pressure low this morning but subsequently improved with slow bolus. Sodium today is 150. Patient is dehydrated and is asking for water to drink. I have discussed with RN to ensure patient gets enough water to help with dehydration. His heart rate is controlled and cardiology has adjusted the medication today due to slight hypotension.-Metoprolol now 25 every 8 hours. He is alert and oriented x3 this morning and is able to make needs known. Check BMP every 8 hours for now. Nephrology following 04/26. Transferred to the ICU due to persisted hypotension. WBC trending up. Started on antibiotics. Aetiology of shock could be sepsis. Other differentials - cardiogenic vs obstructive (has been on eliquis 2.5mg BID so not likely. His ddimer is elevated and he cannot get contrast - will get VQ scan. Critical care to see. Blood culture ordered. Repeat labs in AM 12/3. On levophed. Leukocytosis better. Check procalcitonin. On antibiotics. Plan to get VQ scan. Rest of labs shows anemia and thrombocytopenia. Will monitor for now. Will need to dc eliquis if not improving. Continue to trend for now. Repeat labs today. History Interval history: Patient seen and examined at bedside. He requests to drink water. Now on pressors. Hospitalist Physical - Physical exam Narrative exam: VITAL SIGNS: Reviewed. GENERAL: More awake HEAD: No signs of head trauma. EYES: Pupils are equal. Extraocular motions intact. EARS: Hearing grossly intact. MOUTH: Oropharynx is normal. NECK: No adenopathy, no JVD. CHEST: Chest mostly clear CARDIAC: Regular rate and rhythm. S1 and S2, without murmurs, gallops, or rubs. VASCULAR: No Edema. Peripheral pulses normal and equal in all extremities. ABDOMEN: Soft, non tender and non distended. No rebound or guarding, and no masses palpated. Bowel Sounds normal. MUSCULOSKELETAL: Good range of motion of all major joints. Extremities without clubbing, cyanosis or edema. NEUROLOGIC EXAM: More awake PSYCHIATRIC: Stable mood SKIN: No obvious lesions - Constitutional Vitals: Temp Pulse Resp BP Pulse Ox 97.9 F 58 L 21 107/49 99 04/27/20 12:00 04/27/20 12:00 04/27/20 12:00 04/27/20 12:00 04/27/20 12:00 HEART Score - HEART Score Troponin: Troponin T 0.081 ng/mL (0.00-0.029) H 04/10/20 20:04 Results - Labs CBC & Chem 7: 04/27/20 08:06 04/27/20 08:06 Labs: Laboratory Last Values WBC 9.9 K/mm3 (4.5-11.0) 04/27/20 08:06 RBC 3.00 M/mm3 (3.65-5.03) L 04/27/20 08:06 Hgb 7.3 gm/dl (11.8-15.2) L 04/27/20 08:06 Hct 23.3 % (35.5-45.6) L 04/27/20 08:06 MCV 78 fl (84-94) L 04/27/20 08:06 MCH 24 pg (28-32) L 04/27/20 08:06 MCHC 31 % (32-34) L 04/27/20 08:06 RDW 21.9 % (13.2-15.2) H 04/27/20 08:06 Plt Count 58 K/mm3 (140-440) L 04/27/20 08:06 Lymph % (Auto) 6.6 % (13.4-35.0) L 04/27/20 08:06 [place] % (Auto) 2.7 % (0.0-7.3) 04/27/20 08:06 Eos % (Auto) 1.2 % (0.0-4.3) 04/27/20 08:06 Baso % (Auto) 0.7 % (0.0-1.8) 04/27/20 08:06 Lymph # (Auto) 0.7 K/mm3 (1.2-5.4) L 04/27/20 08:06 [place] # (Auto) 0.3 K/mm3 (0.0-0.8) 04/27/20 08:06 Eos # (Auto) 0.1 K/mm3 (0.0-0.4) 04/27/20 08:06 Baso # (Auto) 0.1 K/mm3 (0.0-0.1) 04/27/20 08:06 Add Manual Diff Complete 04/26/20 10:13 Total Counted 100 04/26/20 10:13 Seg Neutrophils % 88.8 % (40.0-70.0) H 04/27/20 08:06 Seg Neuts % (Manual) 97.0 % (40.0-70.0) H 04/26/20 10:13 Band Neutrophils % 0 % 04/26/20 10:13 Lymphocytes % (Manual) 1.0 % (13.4-35.0) L 04/26/20 10:13 Reactive Lymphs % (Man) 0 % 04/26/20 10:13 Monocytes % (Manual) 1.0 % (0.0-7.3) 04/26/20 10:13 Eosinophils % (Manual) 0 % (0.0-4.3) 04/26/20 10:13 Basophils % (Manual) 1.0 % (0.0-1.8) 04/26/20 10:13 Metamyelocytes % 0 % 04/26/20 10:13 Myelocytes % 0 % 04/26/20 10:13 Promyelocytes % 0 % 04/26/20 10:13 Blast Cells % 0 % 04/26/20 10:13 Nucleated RBC % Not Reportable 04/26/20 10:13 Seg Neutrophils # 8.8 K/mm3 (1.8-7.7) H 04/27/20 08:06 Seg Neutrophils # Man 14.7 K/mm3 (1.8-7.7) H 04/26/20 10:13 Band Neutrophils # 0.0 K/mm3 04/26/20 10:13 Lymphocytes # (Manual) 0.2 K/mm3 (1.2-5.4) L 04/26/20 10:13 Abs React Lymphs (Man) 0.0 K/mm3 04/26/20 10:13 Monocytes # (Manual) 0.2 K/mm3 (0.0-0.8) 04/26/20 10:13 Eosinophils # (Manual) 0.0 K/mm3 (0.0-0.4) 04/26/20 10:13 Basophils # (Manual) 0.2 K/mm3 (0.0-0.1) H 04/26/20 10:13 Metamyelocytes # 0.0 K/mm3 04/26/20 10:13 Myelocytes # 0.0 K/mm3 04/26/20 10:13 Promyelocytes # 0.0 K/mm3 04/26/20 10:13 Blast Cells # 0.0 K/mm3 04/26/20 10:13 WBC Morphology Not Reportable 04/26/20 10:13 Hypersegmented Neuts Not Reportable 04/26/20 10:13 Hyposegmented Neuts Not Reportable 04/26/20 10:13 Hypogranular Neuts Not Reportable 04/26/20 10:13 Smudge Cells Not Reportable 04/26/20 10:13 Toxic Granulation Not Reportable 04/26/20 10:13 Toxic Vacuolation Not Reportable 04/26/20 10:13 Dohle Bodies Not Reportable 04/26/20 10:13 Pelger-Huet Anomaly Not Reportable 04/26/20 10:13 Barby Rods Not Reportable 04/26/20 10:13 Platelet Estimate Consistent w auto 04/26/20 10:13 Clumped Platelets Not Reportable 04/26/20 10:13 Plt Clumps, EDTA Not Reportable 04/26/20 10:13 Large Platelets Not Reportable 04/26/20 10:13 Giant Platelets Not Reportable 04/26/20 10:13 Platelet Satelliting Not Reportable 04/26/20 10:13 Plt Morphology Comment Not Reportable 04/26/20 10:13 RBC Morphology Not Reportable 04/26/20 10:13 Dimorphic RBCs Not Reportable 04/26/20 10:13 Polychromasia Not Reportable 04/26/20 10:13 Hypochromasia 1+ 04/26/20 10:13 Poikilocytosis Not Reportable 04/26/20 10:13 Anisocytosis 1+ 04/26/20 10:13 Microcytosis Not Reportable 04/26/20 10:13 Macrocytosis Not Reportable 04/26/20 10:13 Spherocytes Not Reportable 04/26/20 10:13 Pappenheimer Bodies Not Reportable 04/26/20 10:13 Sickle Cells Not Reportable 04/26/20 10:13 Target Cells Not Reportable 04/26/20 10:13 Tear Drop Cells Not Reportable 04/26/20 10:13 Ovalocytes Not Reportable 04/26/20 10:13 Helmet Cells Not Reportable 04/26/20 10:13 [place] Bodies Not Reportable 04/26/20 10:13 Irwin Rings Not Reportable 04/26/20 10:13 [place] Cells Few 04/26/20 10:13 Bite Cells Not Reportable 04/26/20 10:13 Crenated Cell Not Reportable 04/26/20 10:13 Elliptocytes 1+ 04/26/20 10:13 Acanthocytes (Spur) Not Reportable 04/26/20 10:13 Rouleaux Not Reportable 04/26/20 10:13 Hemoglobin C Crystals Not Reportable 04/26/20 10:13 Schistocytes Few 04/26/20 10:13 Malaria parasites Not Reportable 04/26/20 10:13 Willie Bodies Not Reportable 04/26/20 10:13 Hem Pathologist Commnt No 04/26/20 10:13 PT 15.5 Sec. (12.2-14.9) H 04/12/20 06:22 INR 1.21 (0.87-1.13) H 04/12/20 06:22 D-Dimer 1259.67 ng/mlDDU (0-234) H 04/25/20 16:09 Heparin Anti-Xa Level 0.35 U.I./ml (0.3-0.7) 04/13/20 05:06 Heparin Anti-Xa, Unfract Negative (Negative) 04/17/20 22:45 ABG pH 7.505 pH Units (7.350-7.450) H 04/17/20 10:30 ABG pCO2 25.2 mm Hg 04/17/20 10:30 ABG pO2 157.9 mm Hg (80.0-90.0) H 04/17/20 10:30 ABG HCO3 19.4 mmol/L (20.0-26.0) L 04/17/20 10:30 ABG O2 Saturation 99.1 % (95.0-99.0) H 04/17/20 10:30 ABG O2 Content 12.7 (0.0-44) 04/17/20 10:30 ABG Base Excess -2.8 mmol/L (-2.0-3.0) L 04/17/20 10:30 ABG Hemoglobin 9.1 gm/dl (14.0-18.0) L 04/17/20 10:30 ABG Carboxyhemoglobin 1.6 % (0.0-5.0) 04/17/20 10:30 ABG Methemoglobin 0.4 % (0.0-1.5) 04/17/20 10:30 Oxyhemoglobin 97.0 % (95.0-99.0) 04/17/20 10:30 FiO2 35 % 04/17/20 10:30 Sodium 150 mmol/L (137-145) H 04/27/20 08:06 Sodium 150 mmol/L (137-145) H 04/27/20 08:06 Potassium 3.8 mmol/L (3.6-5.0) 04/27/20 08:06 Potassium 3.8 mmol/L (3.6-5.0) 04/27/20 08:06 Chloride 115.0 mmol/L (98-107) H 04/27/20 08:06 Chloride 115.2 mmol/L (98-107) H 04/27/20 08:06 Carbon Dioxide 25 mmol/L (22-30) 04/27/20 08:06 Carbon Dioxide 25 mmol/L (22-30) 04/27/20 08:06 Anion Gap 14 mmol/L 04/27/20 08:06 Anion Gap 14 mmol/L 04/27/20 08:06 BUN 68 mg/dL (9-20) H 04/27/20 08:06 BUN 70 mg/dL (9-20) H 04/27/20 08:06 Creatinine 2.0 mg/dL (0.8-1.3) H 04/27/20 08:06 Creatinine 2.0 mg/dL (0.8-1.3) H 04/27/20 08:06 Estimated GFR 33 ml/min 04/27/20 08:06 Estimated GFR 33 ml/min 04/27/20 08:06 BUN/Creatinine Ratio 34 % 04/27/20 08:06 BUN/Creatinine Ratio 35 % 04/27/20 08:06 Glucose 97 mg/dL (75-100) 04/27/20 08:06 Glucose 97 mg/dL (75-100) 04/27/20 08:06 POC Glucose 93 mg/dL (70-105) 04/27/20 10:52 Lactic Acid 3.00 mmol/L (0.7-2.0) H* 04/12/20 06:22 Calcium 7.9 mg/dL (8.4-10.2) L 04/27/20 08:06 Calcium 8.1 mg/dL (8.4-10.2) L 04/27/20 08:06 Phosphorus 5.60 mg/dL (2.5-4.5) H 04/10/20 22:50 Magnesium 2.40 mg/dL (1.7-2.3) H 04/10/20 22:50 Ferritin 135.1 ng/mL (30.0-300.0) 04/11/20 15:11 Total Bilirubin 1.10 mg/dL (0.1-1.2) 04/27/20 08:06 Direct Bilirubin 0.6 mg/dL (0-0.2) H 04/15/20 04:56 Indirect Bilirubin 0.3 mg/dL 04/15/20 04:56 AST 14 units/L (5-40) 04/27/20 08:06 ALT 29 units/L (7-56) 04/27/20 08:06 Alkaline Phosphatase 97 units/L (35-129) 04/27/20 08:06 Lactate Dehydrogenase 664 units/L (91-180) H 04/10/20 20:51 Troponin T 0.081 ng/mL (0.00-0.029) H 04/10/20 20:04 C-Reactive Protein 5.60 mg/dL (0.00-1.30) H 04/10/20 20:51 NT-Pro-B Natriuret Pep > 26666 pg/mL (0-900) H 04/11/20 15:11 Total Protein 5.4 g/dL (6.3-8.2) L 04/27/20 08:06 Albumin 2.5 g/dL (3.9-5) L 04/27/20 08:06 Albumin/Globulin Ratio 0.9 % 04/27/20 08:06 Triglycerides 113 mg/dL (2-149) 04/10/20 20:04 Cholesterol 178 mg/dL (50-199) 04/10/20 20:04 LDL Cholesterol Direct 123 mg/dL (50-130) 04/10/20 20:04 HDL Cholesterol 41 mg/dL (40-59) 04/10/20 20:04 Cholesterol/HDL Ratio 4.34 % 04/10/20 20:04 Serotonin Release Assay See scanned result 04/17/20 22:45 Procalcitonin 0.38 ng/mL (<0.15) 04/27/20 09:30 TSH 3.640 mlU/mL (0.270-4.200) 04/13/20 10:06 Urine Color Yellow (Yellow) 04/11/20 Unknown Urine Turbidity Clear (Clear) 04/11/20 Unknown Urine pH 5.0 (5.0-7.0) 04/11/20 Unknown Ur Specific [place] 1.009 (1.003-1.030) 04/11/20 Unknown Urine Protein <15 mg/dl mg/dL (Negative) 04/11/20 Unknown Urine Glucose (UA) Neg mg/dL (Negative) 04/11/20 Unknown Urine Ketones Neg mg/dL (Negative) 04/11/20 Unknown Urine Blood Neg (Negative) 04/11/20 Unknown Urine Nitrite Neg (Negative) 04/11/20 Unknown Urine Bilirubin Neg (Negative) 04/11/20 Unknown Urine Urobilinogen < 2.0 mg/dL (<2.0) 04/11/20 Unknown Ur Leukocyte Esterase Neg (Negative) 04/11/20 Unknown Urine WBC (Auto) 1.0 /HPF (0.0-6.0) 04/11/20 Unknown Urine RBC (Auto) 2.0 /HPF (0.0-6.0) 04/11/20 Unknown U Epithel Cells (Auto) < 1.0 /HPF (0-13.0) 04/11/20 Unknown Hyaline Casts 3 /LPF 04/11/20 Unknown Urine Mucus Few /HPF 04/11/20 Unknown Urine Eosinophils None seen (None Seen) 04/11/20 Unknown Urine Creatinine 35.3 mg/dL (0.1-20.0) H 04/11/20 Unknown Urine Sodium 92 mmol/L 04/11/20 Unknown Heparin-induced Plt Ab Negative (Negative) 04/17/20 22:45 UF Heparin High Dose 0 % Release 04/17/20 22:45 CHERYL UFH Low Dose 0.1 0 % Release 04/17/20 22:45 CHERYL UFH Low Dose 0.5 0 % Release 04/17/20 22:45 Coronavirus (PCR) Negative (Negative) 04/11/20 Unknown Hepatitis A IgM Ab Non-reactive (NonReactive) 04/12/20 20:23 Hep Bs Antigen Non-reactive (Negative) 04/12/20 20:23 Hep B Core IgM Ab Non-reactive (NonReactive) 04/12/20 20:23 Hepatitis C Antibody Non-reactive (NonReactive) 04/12/20 20:23 Microbiology: Microbiology 04/26/20 18:21 Peripheral/Venous Blood Culture - Preliminary Culture in Progress 04/26/20 18:21 Peripheral/Venous Blood Culture - Preliminary Culture in Progress Gay/IV: Voiding Method Incontinent IV Catheter Type [Right Peripheral IV External Jugular] IV Catheter Type [Left Peripheral IV External Jugular] IV Catheter Type [Right Upper PICC Line arm] IV Catheter Type [Left Wrist] Peripheral IV IV Catheter Type [Right INT / Saline Lock Forearm] IV Catheter Type [Right Wrist] INT / Saline Lock Active Medications - Current Medications Current Medications: Generic Name Dose Route Start Last Admin Trade Name Freq PRN Reason Stop Dose Admin Acetaminophen 650 mg 04/11/20 01:26 04/23/20 23:13 Tylenol PO 650 mg Q6H PRN Administration Pain MILD(1-3)/Fever >100.5/MANCILLA Lipase/Protease/Amylase 1 each 04/11/20 14:22 Pancremiley Saenz 10,500 Unit FEEDTUBE PRN PRN For Clogged Feeding Tube Arformoterol Tartrate 15 mcg 04/20/20 20:00 04/27/20 08:32 Brovana Nebu IH 15 mcg Q12HRT PRAVIN Administration Budesonide 0.5 mg 04/20/20 20:00 04/27/20 08:32 Pulmicort IH 0.5 mg Q12HRT PRAVIN Administration Norepinephrine 4 mg in 250 mls @ 7.5 mls/hr 04/25/20 17:00 04/27/20 03:24 Levophed Drip 4 Mg/Ns 250 Ml IV 2 mcg/min TITR PRAVIN 7.5 mls/hr Administration Protocol 2 MCG/MIN Piperacillin Sod/Tazobactam Sod 3.375 gm in 50 mls @ 100 mls/hr 04/26/20 03:00 04/27/20 11:02 Zosyn/Ns 3.375gm/50ml IV 100 mls/hr Q8H PRAVIN Administration Protocol Insulin Glargine 10 units 04/16/20 22:00 04/26/20 22:24 Lantus SUB-Q 10 units QHS [facility] Administration Insulin Human Lispro 0 unit 04/16/20 16:30 04/27/20 10:58 Humalog SUB-Q Not Given ACHS [facility] Protocol Magnesium Hydroxide 30 ml 04/11/20 01:26 Milk Of Magnesia PO Q4H PRN Constipation Metoprolol Tartrate 25 mg 04/25/20 14:00 04/27/20 06:31 Metoprolol PO Not Given Q8HR [facility] Ondansetron HCl 4 mg 04/25/20 04:53 04/25/20 05:25 Zofran IV 4 mg Q8H PRN Administration Nausea And Vomiting Simple Syrup 15 ml 04/11/20 14:22 Simple Syrup FEEDTUBE PRN PRN Hypoglycemia Simple Syrup 30 ml 04/11/20 14:22 Simple Syrup FEEDTUBE PRN PRN Hypoglycemia Sodium Bicarbonate 325 mg 04/11/20 14:22 Sodium Bicarbonate FEEDTUBE PRN PRN For Clogged Feeding Tube Sodium Chloride 10 ml 04/11/20 10:00 04/27/20 10:58 Sodium Chloride Flush Syringe 10 Ml IV Not Given BID PRAVIN Sodium Chloride 10 ml 04/11/20 01:26 Sodium Chloride Flush Syringe 10 Ml IV PRN PRN LINE FLUSH Nutrition/Malnutrition Assess - Dietary Evaluation Nutrition/Malnutrition Findings: Nutrition Notes Start: 04/11/20 13:41 Freq: Status: Active Protocol: Document 04/26/20 11:01 EN (Rec: 04/26/20 11:08 EN [id number]) Co-Sign 04/26/20 11:01 MK Nutrition Notes Initial or Follow up Reassessment Current Diagnosis Acute Kidney Injury,COPD, Coronary Artery Disease, Diabetes,Hypertension,Heart Failure Other Pertinent Diagnosis AL, Crohn's disease, seizure, colitis Current Diet Pureed w/ nectar liq Labs/Tests Na 147 BUN 71 Cr 1.8 Glu 197 Pertinent Medications Norepinephrine Height 5 ft 7 in Weight 64.4 kg Drift Body Weight (kg) 67.27 BMI 22.2 Subjective/Other Information Per RN, pt consuming less than 25% of meals and has not been drinking ONS. RN reports new consult for [employer] is being ordered d/t coughing when swallowing. Percent of energy/protein needs met: 28%/17% Burn Absent Trauma Absent Difficulty In Swallowing,Chewing Current % PO Negligible Minimum of two criteria No Energy Intake (non-severe) <75% Estimated Energy Requirement >7 days #1 Nutrition Diagnosis Inadequate oral intake Diagnosis Progress(for reassessment Continues documentation) Is patient on ventilator? No Is Patient Ambulatory and/or Out of Bed No REE-([facility]-confined to bed) [phone] Calculation Used for Recommendations [facility] Additional Notes Protein Needs: 52-78 g (0.8-1. 2 g/kg) Fluid Needs: 1 mL/kcal Nutrition Intervention Change Diet Order: Pureed, restart Enteral nutrition if pt continues to eat less than 50%, or per [employer] recommendation Add Supplement/Snack (indicate name/kcal Nepro daily /protein ) Provides kCal: 425 Provides Protein (gm) 19 Goal #1 Meet at least 75% of energy an protein needs Anticipated Discharge Needs: Unable to determine at this time Follow-Up By: 04/28/20 Additional Comments F/u for PO/ONS intakes and [employer] recommendations
--- NOTE | 2020-04-27 13:59 | Nuclear Medicine Report ---
NUCLEAR MEDICINE PERFUSION ONLY LUNG SCAN. History: Rule out PE Comparison: Recent chest radiograph dated 04/26/2020. Prior nuclear medicine perfusion only lung scan dated 04/12/2020 Procedure: The patient was administered 5.1 mCi of technetium 99m labeled MAA intravenously. Findings: Worsened decrease in perfusion throughout the left lung field correlates with worsened pleu ral parenchymal disease on recent chest radiograph. No segmental perfusion abnormality noted in the r ight lung. Impression: 1. Low probability of pulmonary embolism. Signer Name: Emanuel Iqbal MD Signed: 04/27/2020 1:55 PM Workstation Name: [id number]
[2020-04-27 20:04] LABS: Basophils # (Auto) 0.1 K/mm3 (0.0-0.1); Basophils % (Auto) 0.9 % (0.0-1.8); Eosinophils # (Auto) 0.1 K/mm3 (0.0-0.4); Eosinophils % (Auto) 1.1 % (0.0-4.3); Hematocrit 23.4 % (35.5-45.6); Hemoglobin 7.3 gm/dl (11.8-15.2); Lymphocytes # (Auto) 0.6 K/mm3 (1.2-5.4); Lymphocytes % (Auto) 9.1 % (13.4-35.0); Mean Corpuscular HGB Conc 31 % (32-34); Mean Corpuscular Volume 78 fl (84-94); Monocytes # (Auto) 0.2 K/mm3 (0.0-0.8); Monocytes % (Auto) 2.6 % (0.0-7.3); Red Blood Count 3.02 M/mm3 (3.65-5.03)
[2020-04-27 20:05] LABS: Platelet Count 59 K/mm3 (140-440); Red Cell Distribution Width 22.2 % (13.2-15.2)
[2020-04-27 20:22] LABS: Albumin 2.7 g/dL (3.9-5); Calcium 7.9 mg/dL (8.4-10.2)
[2020-04-27] MEDS: INSULIN GLARGINE 100 UNITS/ML SUB-Q SCH (22:08)
[2020-04-28] MEDS ORDERED: DEXTROSE 10% IN WATER 250 ML IV ONE (01:45)
[2020-04-28] MEDS ORDERED: D10W 500 ML IV SOLN IV SCH (02:00)
[2020-04-28 07:20] LABS: Basophils # (Auto) 0.1 K/mm3 (0.0-0.1); Basophils % (Auto) 1.1 % (0.0-1.8); Eosinophils # (Auto) 0.1 K/mm3 (0.0-0.4); Eosinophils % (Auto) 1.2 % (0.0-4.3); Hematocrit 22.9 % (35.5-45.6); Hemoglobin 7.2 gm/dl (11.8-15.2); Lymphocytes # (Auto) 0.6 K/mm3 (1.2-5.4); Lymphocytes % (Auto) 9.4 % (13.4-35.0); Mean Corpuscular HGB Conc 32 % (32-34); Mean Corpuscular Volume 77 fl (84-94); Monocytes # (Auto) 0.2 K/mm3 (0.0-0.8); Red Blood Count 2.99 M/mm3 (3.65-5.03)
[2020-04-28] MEDS: APIXABAN 2.5 MG TAB PO SCH (07:41)
[2020-04-28 07:43] LABS: Platelet Count 50 K/mm3 (140-440)
[2020-04-28 07:50] LABS: Albumin 2.5 g/dL (3.9-5); Calcium 8.1 mg/dL (8.4-10.2)
[2020-04-28] MEDS: ARFORMOTEROL 15 MCG/2 ML NEBU IH SCH ×2 (07:54→21:35)
[2020-04-28] MEDS: BUDESONIDE 0.5 MG/2 ML NEBU IH SCH ×2 (07:54→21:36)
--- NOTE | 2020-04-28 08:27 | Progress Note ---
Assessment and Plan 1. Acute kidney injury: Vasomotor KIRT superimposed on CKD. CT abdomen negative for hydro. Monitor renal function. Creatinine level about the same as yesterday. Avoid nephrotoxic agents. Meds dosage based on GFR. 2. FEN: Hypernatremia, IV D5W, monitor. Will consider Thiazide if the BP is better. Hypokalemia, improved, monitor. Anion-gap metabolic acidosis, improved, monitor. Monitor lytes and volume status. 3. Acute hypoxic respiratory failure: Possibly secondary to the CHF and underlying pneumonia. COVID-19 test negative. 4. Hypotension: Off pressors. Monitor BP. 5. Chronic CHF: Monitor daily weight, intake and outputs. Followed by Cards. 6. Colitis: Monitor. Seen by GI. 7. Anemia, POA: Monitor. 8. Elevated Transaminases: Improved. 9. DM type 2. Subjective: Patient was seen and examined at the bedside. Examination: General appearance: well-developed, appears stated age HEENT: ATNC, pupils equal Neck: trachea midline Respiratory: ctab Heart: regular, S1S2, no murmur Gastrointestinal: soft, normoactive bowel sounds, not tender Integumentary: no rash, warm and dry Neurologic: alert, moving extremities, confused Ext: no edema Subjective Date of service: 04/28/20 Principal diagnosis: CHF Objective - Vital Signs Vital signs: Vital Signs - 12hr 04/27/20 04/27/20 04/27/20 20:28 20:30 20:45 Temperature Pulse Rate 67 73 Pulse Rate [ From Monitor] Respiratory 19 25 H Rate Blood Pressure 108/55 99/60 O2 Sat by Pulse 98 96 92 Oximetry 04/27/20 04/27/20 04/27/20 21:00 21:15 21:31 Temperature Pulse Rate 66 59 L 64 Pulse Rate [ From Monitor] Respiratory 20 10 L 12 Rate Blood Pressure 95/65 93/47 100/49 O2 Sat by Pulse 93 100 97 Oximetry 04/27/20 04/27/20 04/27/20 21:45 22:00 22:03 Temperature Pulse Rate 70 71 61 Pulse Rate [ From Monitor] Respiratory 13 20 Rate Blood Pressure 91/53 99/52 99/52 O2 Sat by Pulse 95 95 Oximetry 04/27/20 04/27/20 04/27/20 22:15 22:30 22:45 Temperature Pulse Rate 73 61 71 Pulse Rate [ From Monitor] Respiratory 20 17 19 Rate Blood Pressure 94/56 96/51 94/52 O2 Sat by Pulse 96 95 97 Oximetry 04/27/20 04/27/20 04/27/20 23:01 23:15 23:31 Temperature Pulse Rate 63 65 71 Pulse Rate [ From Monitor] Respiratory 26 H 20 18 Rate Blood Pressure 101/56 103/53 93/52 O2 Sat by Pulse 96 98 97 Oximetry 04/27/20 04/27/20 04/28/20 23:32 23:45 00:00 Temperature 98.4 F Pulse Rate 61 70 Pulse Rate [ 70 From Monitor] Respiratory 15 14 Rate Blood Pressure 100/48 O2 Sat by Pulse 98 97 Oximetry 04/28/20 04/28/20 04/28/20 00:01 00:03 00:15 Temperature Pulse Rate 70 70 66 Pulse Rate [ From Monitor] Respiratory 14 25 H 14 Rate Blood Pressure 104/61 104/61 95/47 O2 Sat by Pulse 97 96 97 Oximetry 04/28/20 04/28/20 04/28/20 00:31 00:45 01:00 Temperature Pulse Rate 69 68 70 Pulse Rate [ From Monitor] Respiratory 20 21 30 H Rate Blood Pressure 101/55 98/56 101/60 O2 Sat by Pulse 96 96 97 Oximetry 04/28/20 04/28/20 04/28/20 01:15 01:31 01:45 Temperature Pulse Rate 60 68 59 L Pulse Rate [ From Monitor] Respiratory 14 12 11 L Rate Blood Pressure 87/43 84/45 102/45 O2 Sat by Pulse 95 96 93 Oximetry 04/28/20 04/28/20 04/28/20 02:00 02:15 02:30 Temperature Pulse Rate 60 55 L 61 Pulse Rate [ From Monitor] Respiratory 15 23 16 Rate Blood Pressure 93/47 101/51 96/42 O2 Sat by Pulse 97 99 72 L Oximetry 04/28/20 04/28/20 04/28/20 02:45 03:01 03:15 Temperature Pulse Rate 69 68 70 Pulse Rate [ From Monitor] Respiratory 24 24 24 Rate Blood Pressure 104/51 103/50 105/48 O2 Sat by Pulse 97 97 91 Oximetry 04/28/20 04/28/20 04/28/20 03:30 03:31 03:45 Temperature 98.7 F Pulse Rate 69 66 Pulse Rate [ From Monitor] Respiratory 20 24 Rate Blood Pressure 104/53 102/51 O2 Sat by Pulse 99 96 Oximetry 04/28/20 04/28/20 04/28/20 04:00 04:15 04:31 Temperature Pulse Rate 62 60 63 Pulse Rate [ 62 From Monitor] Respiratory 27 H 20 22 Rate Blood Pressure 105/50 93/68 108/53 O2 Sat by Pulse 98 97 Oximetry 04/28/20 04/28/20 04/28/20 04:45 05:01 05:16 Temperature Pulse Rate 71 62 Pulse Rate [ From Monitor] Respiratory 27 H 20 18 Rate Blood Pressure 95/58 96/57 96/57 O2 Sat by Pulse 98 92 97 Oximetry 04/28/20 04/28/20 04/28/20 05:31 05:45 06:01 Temperature Pulse Rate 69 69 69 Pulse Rate [ From Monitor] Respiratory 17 23 21 Rate Blood Pressure 109/51 109/58 109/56 O2 Sat by Pulse 99 97 99 Oximetry 04/28/20 06:15 Temperature Pulse Rate 74 Pulse Rate [ From Monitor] Respiratory 29 H Rate Blood Pressure 107/60 O2 Sat by Pulse 95 Oximetry - Lab 04/28/20 06:30 04/28/20 06:30 Most recent lab results ABG pH 7.505 pH Units (7.350-7.450) H 04/17/20 10:30 ABG pCO2 25.2 mm Hg 04/17/20 10:30 ABG pO2 157.9 mm Hg (80.0-90.0) H 04/17/20 10:30 ABG HCO3 19.4 mmol/L (20.0-26.0) L 04/17/20 10:30 ABG O2 Saturation 99.1 % (95.0-99.0) H 04/17/20 10:30 Calcium 8.1 mg/dL (8.4-10.2) L 04/28/20 06:30 Phosphorus 5.60 mg/dL (2.5-4.5) H 04/10/20 22:50 Magnesium 2.40 mg/dL (1.7-2.3) H 04/10/20 22:50 Urine Creatinine 35.3 mg/dL (0.1-20.0) H 04/11/20 Unknown Urine Sodium 92 mmol/L 04/11/20 Unknown Medications & Allergies - Medications Allergies/Adverse Reactions: Allergies Sulfa (Sulfonamide Antibiotics) Allergy (Verified 07/30/18 17:44) Rash Home Medications: Home Medications Medication Instructions Recorded Confirmed Last Taken Type Gabapentin 300 mg PO BID 09/19/16 04/21/20 09/18/16 History 300 mg Metformin HCl [metFORMIN ER 500 mg PO BIDWM 03/28/17 04/21/20 Unknown History Gastric] AtorvaSTATin 10 mg PO QHS #30 tablet 12/21/17 04/21/20 Unknown Rx Ranolazine ER [Ranexa ER] 500 mg PO BID #60 tablet 12/21/17 04/21/20 Unknown Rx Aspirin 325 mg PO QDAY #30 tablet 01/12/18 04/21/20 04/21/20 Rx Diphenoxylate/Atropine [Lomotil] 1 tab PO Q8H PRN 01/15/18 04/21/20 Unknown History Insulin Lispro [HumaLOG VIAL] See Protocol SQ ACHS 01/15/18 04/21/20 04/21/20 18:46 History Promethazine [Phenergan] 25 mg PO Q4H PRN 01/15/18 04/21/20 Unknown History Albuterol Mdi (or & Nicu Only) 2 puff IH Q4HR PRN #1 inhalation 12/21/18 04/21/20 04/21/20 18:46 Rx [ProAir HFA Inhaler] Furosemide [Lasix TAB] 20 mg PO QDAY #30 tablet 02/03/20 04/21/20 Unknown Rx Metoprolol Xl [Metoprolol 25 mg PO DAILY #60 tablet 02/03/20 04/21/20 04/21/20 18:45 Rx SUCCINATE ER TAB] levETIRAcetam [Keppra TAB] 500 mg PO BID #120 tablet 02/03/20 04/21/20 Unknown Rx levoFLOXacin [Levaquin TAB] 500 mg PO QDAY #5 tablet 02/03/20 04/21/20 Unknown Rx Active Medications: Generic Name Dose Route Start Last Admin Trade Name Freq PRN Reason Stop Dose Admin Acetaminophen 650 mg 04/11/20 01:26 04/23/20 23:13 Tylenol PO 650 mg Q6H PRN Administration Pain MILD(1-3)/Fever >100.5/MANCILLA Lipase/Protease/Amylase 1 each 04/11/20 14:[address] 10,500 Unit FEEDTUBE PRN PRN For Clogged Feeding Tube Arformoterol Tartrate 15 mcg 04/20/20 20:00 04/28/20 07:54 Brovana Nebu IH 15 mcg Q12HRT PRAVIN Administration Budesonide 0.5 mg 04/20/20 20:00 04/28/20 07:54 Pulmicort IH 0.5 mg Q12HRT PRAVIN Administration Norepinephrine 4 mg in 250 mls @ 7.5 mls/hr 04/25/20 17:00 04/27/20 18:15 Levophed Drip 4 Mg/Ns 250 Ml IV 0 mcg/min TITR PRAVIN 0 mls/hr Titration Protocol 2 MCG/MIN Piperacillin Sod/Tazobactam Sod 3.375 gm in 50 mls @ 100 mls/hr 04/26/20 03:00 04/27/20 18:05 Zosyn/Ns 3.375gm/50ml IV 100 mls/hr Q8H PRAVIN Administration Protocol Dextrose 1,000 mls @ 42 mls/hr 04/28/20 09:00 D5w IV DIRECT [facility] Insulin Glargine 10 units 04/16/20 22:00 04/27/20 22:08 Lantus SUB-Q Not Given QHS [facility] Insulin Human Lispro 0 unit 04/16/20 16:30 04/27/20 21:56 Humalog SUB-Q Not Given ACHS [facility] Protocol Magnesium Hydroxide 30 ml 04/11/20 01:26 Milk Of Magnesia PO Q4H PRN Constipation Metoprolol Tartrate 25 mg 04/25/20 14:00 04/27/20 22:03 Metoprolol PO Not Given Q8HR [facility] Ondansetron HCl 4 mg 04/25/20 04:53 04/25/20 05:25 Zofran IV 4 mg Q8H PRN Administration Nausea And Vomiting Simple Syrup 15 ml 04/11/20 14:22 Simple Syrup FEEDTUBE PRN PRN Hypoglycemia Simple Syrup 30 ml 04/11/20 14:22 Simple Syrup FEEDTUBE PRN PRN Hypoglycemia Sodium Bicarbonate 325 mg 04/11/20 14:22 Sodium Bicarbonate FEEDTUBE PRN PRN For Clogged Feeding Tube Sodium Chloride 10 ml 04/11/20 10:00 04/27/20 22:05 Sodium Chloride Flush Syringe 10 Ml IV 10 ml BID PRAVIN Administration Sodium Chloride 10 ml 04/11/20 01:26 Sodium Chloride Flush Syringe 10 Ml IV PRN PRN LINE FLUSH
[2020-04-28] MEDS: INSULIN LISPRO 100 UNIT/ML VIAL 3 mL SUB-Q SCH ×4 (08:30→22:04)
[2020-04-28] MEDS ORDERED: DEXTROSE 5% IN WATER 1,000 ML IV SCH (09:00)
[2020-04-28] MEDS: PIPERACILLIN/TAZOBACTAM 3.375 3.375 GM/50 ML BAG IV SCH ×3 (09:41→19:35)
[2020-04-28] MEDS: METOPROLOL TARTRATE 25 MG TAB PO SCH ×3 (09:41→22:04)
--- NOTE | 2020-04-28 09:59 | Progress Note ---
<SENA HGIGINS - Last Filed: 04/28/20 10:02> Assessment and Plan Chronic systolic heart failure LVEF 15-20% by echo 01/2020 VQ scan reports a low probability for PE. COVID 19 test was negative Paroxysmal Atrial fibrillation vs flutter on metoprolol for suppression low dose Eliquis discontinued due to development of severe anemia Chronic anemia Dehydration Hx of Ischemic cardiomyopathy noncompliant with outpatient cardiac follow up. Hx of CAD Abdominal pain CT scan of the abdomen suggestive of colitis. Renal insufficiency Continue medical therapy for chronic systolic heart failure and paroxysmal atrial fibrillation as tolerated. Now considered a poor candidate for anticoagulation due to development of severe anemia. Judicious use of IV hydration due to underlying left ventricular systolic failure. Subjective Date of service: 04/28/20 Principal diagnosis: CHF Interval history: Patient is resting in bed. No distress noted. Objective Vital Signs Temp Pulse Pulse Pulse Resp Resp BP 04/28/20 09:06 98.3 F 65 20 93/43 04/28/20 06:51 102/56 04/28/20 06:41 70 21 104/54 04/28/20 06:30 70 18 104/54 04/28/20 06:21 71 22 107/60 04/28/20 06:15 74 29 H 107/60 04/28/20 06:01 69 21 109/56 04/28/20 05:45 69 23 109/58 04/28/20 05:31 69 17 109/51 04/28/20 05:16 62 18 96/57 04/28/20 05:01 71 20 96/57 04/28/20 04:45 27 H 95/58 04/28/20 04:31 63 22 108/53 04/28/20 04:15 60 20 93/68 04/28/20 04:00 62 62 27 H 105/50 04/28/20 03:45 66 24 102/51 04/28/20 03:31 98.7 F 04/28/20 03:30 69 20 104/53 04/28/20 03:15 70 24 105/48 04/28/20 03:01 68 24 103/50 04/28/20 02:45 69 24 104/51 04/28/20 02:30 61 16 96/42 04/28/20 02:15 55 L 23 101/51 04/28/20 02:00 60 15 93/47 04/28/20 01:45 59 L 11 L 102/45 04/28/20 01:31 68 12 84/45 04/28/20 01:15 60 14 87/43 04/28/20 01:00 70 30 H 101/60 04/28/20 00:45 68 21 98/56 04/28/20 00:31 69 20 101/55 04/28/20 00:15 66 14 95/47 04/28/20 00:03 70 25 H 104/61 04/28/20 00:01 70 14 104/61 04/28/20 00:00 70 70 14 04/27/20 23:45 61 15 100/48 04/27/20 23:32 98.4 F 04/27/20 23:31 71 18 93/52 04/27/20 23:15 65 20 103/53 04/27/20 23:01 63 26 H 101/56 04/27/20 22:45 71 19 94/52 04/27/20 22:30 61 17 96/51 04/27/20 22:15 73 20 94/56 04/27/20 22:03 61 99/52 04/27/20 22:00 71 20 99/52 04/27/20 21:45 70 13 91/53 04/27/20 21:31 64 12 100/49 04/27/20 21:15 59 L 10 L 93/47 04/27/20 21:00 66 20 95/65 04/27/20 20:45 73 25 H 99/60 04/27/20 20:30 67 19 108/55 04/27/20 20:28 04/27/20 20:15 71 27 H 116/68 04/27/20 20:01 68 21 04/27/20 20:00 67 68 30 H 100/39 04/27/20 19:48 98.7 F 04/27/20 19:45 63 26 H 100/39 04/27/20 19:30 70 20 90/47 04/27/20 19:15 67 23 90/47 04/27/20 19:00 60 20 98/54 04/27/20 18:45 59 L 23 98/54 04/27/20 18:30 59 L 11 L 111/56 04/27/20 18:15 59 L 14 111/56 04/27/20 18:00 59 L 24 121/55 04/27/20 17:45 55 L 29 H 121/55 04/27/20 17:30 67 14 129/63 04/27/20 17:16 70 26 H 121/60 04/27/20 17:00 68 26 H 117/67 04/27/20 16:45 57 L 20 121/46 04/27/20 16:30 66 30 H 108/59 04/27/20 16:15 58 L 18 114/48 04/27/20 16:00 98 F 56 L 55 L 21 116/52 04/27/20 15:46 57 L 32 H 116/52 04/27/20 15:30 57 L 22 115/46 04/27/20 15:15 58 L 25 H 115/46 04/27/20 15:00 98.0 F 54 L 25 H 104/65 04/27/20 14:45 57 L 21 104/65 04/27/20 14:30 56 L 24 93/54 04/27/20 14:16 54 L 27 H 99/66 04/27/20 14:00 57 L 22 93/54 04/27/20 13:52 93/54 04/27/20 13:16 55 L 15 93/54 04/27/20 13:00 57 L 15 101/57 04/27/20 12:45 56 L 20 101/57 04/27/20 12:30 59 L 26 H 98/50 04/27/20 12:16 58 L 14 98/50 04/27/20 12:00 97.9 F 59 L 58 L 21 107/49 04/27/20 11:46 58 L 19 107/49 04/27/20 11:30 61 16 111/47 04/27/20 11:15 59 L 17 111/47 04/27/20 11:00 57 L 17 110/54 04/27/20 10:45 53 L 11 L 105/51 04/27/20 10:30 55 L 17 97/52 04/27/20 10:15 54 L 19 107/51 04/27/20 10:00 58 L 21 104/48 Pulse Ox 04/28/20 09:06 97 04/28/20 06:51 97 04/28/20 06:41 100 04/28/20 06:30 95 04/28/20 06:21 93 04/28/20 06:15 95 04/28/20 06:01 99 04/28/20 05:45 97 04/28/20 05:31 99 04/28/20 05:16 97 04/28/20 05:01 92 04/28/20 04:45 98 04/28/20 04:31 97 04/28/20 04:15 04/28/20 04:00 98 04/28/20 03:45 96 04/28/20 03:31 04/28/20 03:30 99 04/28/20 03:15 91 04/28/20 03:01 97 04/28/20 02:45 97 04/28/20 02:30 72 L 04/28/20 02:15 99 04/28/20 02:00 97 04/28/20 01:45 93 04/28/20 01:31 96 04/28/20 01:15 95 04/28/20 01:00 97 04/28/20 00:45 96 04/28/20 00:31 96 04/28/20 00:15 97 04/28/20 00:03 96 04/28/20 00:01 97 04/28/20 00:00 97 04/27/20 23:45 98 04/27/20 23:32 04/27/20 23:31 97 04/27/20 23:15 98 04/27/20 23:01 96 04/27/20 22:45 97 04/27/20 22:30 95 04/27/20 22:15 96 04/27/20 22:03 04/27/20 22:00 95 04/27/20 21:45 95 04/27/20 21:31 97 04/27/20 21:15 100 04/27/20 21:00 93 04/27/20 20:45 92 04/27/20 20:30 96 04/27/20 20:28 98 04/27/20 20:15 98 04/27/20 20:01 04/27/20 20:00 96 04/27/20 19:48 04/27/20 19:45 96 04/27/20 19:30 97 04/27/20 19:15 97 04/27/20 19:00 96 04/27/20 18:45 97 04/27/20 18:30 99 04/27/20 18:15 99 04/27/20 18:00 98 04/27/20 17:45 100 04/27/20 17:30 100 04/27/20 17:16 100 04/27/20 17:00 100 04/27/20 16:45 98 04/27/20 16:30 95 04/27/20 16:15 99 04/27/20 16:00 99 04/27/20 15:46 99 04/27/20 15:30 97 04/27/20 15:15 98 04/27/20 15:00 98 04/27/20 14:45 99 04/27/20 14:30 100 04/27/20 14:16 99 04/27/20 14:00 98 04/27/20 13:52 99 04/27/20 13:16 99 04/27/20 13:00 98 04/27/20 12:45 95 04/27/20 12:30 98 04/27/20 12:16 98 04/27/20 12:00 94 04/27/20 11:46 97 04/27/20 11:30 88 04/27/20 11:15 98 04/27/20 11:00 97 04/27/20 10:45 98 04/27/20 10:30 99 04/27/20 10:15 98 04/27/20 10:00 91 - Physical Examination General: No Apparent Distress, Cachectic HEENT: Positive: PERRL Neck: Positive: trachea midline Cardiac: Positive: Reg Rate and Rhythm Lungs: Positive: Decreased Breath Sounds Neuro: Positive: Grossly Intact, Weakness Abdomen: Positive: Soft Extremities: Absent: edema - Labs and Meds Cardiac Enzymes 04/27/20 04/28/20 Range/Units 12:53 06:30 AST 15 16 (5-40) units/L CBC 04/27/20 04/28/20 Range/Units 12:53 06:30 WBC 7.1 6.2 (4.5-11.0) K/mm3 RBC 3.02 L 2.99 L (3.65-5.03) M/mm3 Hgb 7.3 L 7.2 L (11.8-15.2) gm/dl Hct 23.4 L 22.9 L (35.5-45.6) % Plt Count 59 L 50 L (140-440) K/mm3 Lymph # (Auto) 0.6 L 0.6 L (1.2-5.4) K/mm3 [place] # (Auto) 0.2 0.2 (0.0-0.8) K/mm3 Eos # (Auto) 0.1 0.1 (0.0-0.4) K/mm3 Baso # (Auto) 0.1 0.1 (0.0-0.1) K/mm3 Comprehensive Metabolic Panel 04/27/20 04/28/20 Range/Units 12:53 06:30 Sodium 149 H 153 H (137-145) mmol/L Potassium 3.8 3.8 (3.6-5.0) mmol/L Chloride 114.9 H 117.7 H (98-107) mmol/L Carbon Dioxide 25 23 (22-30) mmol/L BUN 67 H 65 H (9-20) mg/dL Creatinine 2.0 H 2.1 H (0.8-1.3) mg/dL Glucose 85 96 (75-100) mg/dL Calcium 7.9 L 8.1 L (8.4-10.2) mg/dL AST 15 16 (5-40) units/L ALT 29 28 (7-56) units/L Alkaline Phosphatase 97 95 (35-129) units/L Total Protein 5.4 L 5.4 L (6.3-8.2) g/dL Albumin 2.7 L 2.5 L (3.9-5) g/dL <DOTTIE REYNOSO Last Filed: 04/30/20 09:02> Assessment and Plan - Patient Problems (1) Acute and chronic respiratory failure Current Visit: Yes Status: Acute (2) Acute exacerbation of CHF (congestive heart failure) Current Visit: Yes Status: Acute (3) Coronary artery disease Current Visit: Yes Status: Acute Subjective Interval history: I SAW THIS PT & AGREE WITH THE Dx & Tx PLAN Objective Vital Signs Temp Pulse Pulse Resp Resp BP Pulse Ox 04/30/20 04:49 97.8 F 17 98/53 04/29/20 23:37 96.5 F L 109 H 18 90/46 100 04/29/20 22:18 108 H 95/63 04/29/20 21:57 98 04/29/20 21:55 104 H 18 04/29/20 19:25 97.3 F L 108 H 17 95/63 100 04/29/20 16:55 98.2 F 107 H 20 85/52 95 04/29/20 12:57 98.2 F 108 H 18 100/57 97 04/29/20 12:37 103 H 04/29/20 11:50 97 H 24 04/29/20 10:00 114/57 04/29/20 09:45 98
--- NOTE | 2020-04-28 10:57 | XRay Report ---
CHEST 1 VIEW 04/28/2020 9:50 AM INDICATION / CLINICAL INFORMATION: Pleural effusion. COMPARISON: Chest one view from 04/26/2020 FINDINGS: SUPPORT DEVICES: Unchanged. HEART / MEDIASTINUM: Stable. LUNGS / PLEURA: Interval decrease in size of the left pleural effusion with improved aeration of the left lung. Improved aeration of the right lung base with decrease of the right pleural effusion. ADDITIONAL FINDINGS: No significant additional findings. IMPRESSION: Improved aeration of the lungs with smaller pleural effusions. Signer Name: Waldemar Saxena MD Signed: 04/28/2020 10:53 AM Workstation Name: [id number]
--- NOTE | 2020-04-28 10:58 | Progress Note ---
Assessment and Plan Assessment and plan: ---Acute respiratory failure Current Visit: Yes Status: Acute Plan to address problem: Improved --Acute on chronic systolic CHF (congestive heart failure) Current Visit: Yes Status: Acute Plan to address problem: Holding Lasix due to KIRT Will monitor daily weight, inputs and outputs. Monitor renal function closely Cardiology on board --KIRT on CKD Current Visit: Yes Status: Acute Plan to address problem: Had KIRT 2/2 vasomotor nephropathy Lasix given due to worsening pulm edema Cr bump noted. Lasix discontinued --Colitis Current Visit: Yes Status: Acute Plan to address problem: Resolved GI recommendations appreciated --Left sided pleural effusion Current Visit: No Status: Acute Plan to address problem: Lasix held due to worsening renal function Will get US thoracentesis --Arrhythmias-atrial fibrillation versus nonsustained ventricular tachycardia Current Visit: Yes Status: Acute Plan to address problem: Initially started on amiodarone but discontinued due to elevated LFTs Now on metoprolol every 6 and rate is currently controlled. Started on low-dose apixaban 2.5 mg twice daily Cardiology recommendations appreciated --Diabetes mellitus type 2 in nonobese Current Visit: No Status: Acute Plan to address problem: Lantus and sliding scale insulin. --Hyperkalemia and metabolic acidosis Current Visit: Yes Status: Acute Plan to address problem: Resolved --T12 compression fracture Current Visit: No Status: Likely chronic Plan to address problem: CT abdomen showed acute appearing T12 compression fracture 04/14. MRI thoracic without contrast ordered to further evaluate. 04/15. Patient is agitated and unable to get an MRI. 04/16. Awaiting MRI without contrast thoracic. Plan to use sedatives today. Informed RN. If positive for acute fracture, patient will need to be transferred for neurosurgery evaluation. 04/17. MRI thoracic and lumbar showed acute T12 compression fracture. Discussed case with [facility] front desk person who advised no acute intervention is necessary at this time-advised TLSO brace when patient is sitting or ambulatory. He will need follow-up with Dr. Dalton Jack, Dr. Alan Henson, Dr. Tyson Clark [contact number [phone]] after discharge. ---Elevated LFTs Current Visit: Yes Status: Acute Plan to address problem: Improving US abdomen shows no acute pathology ---Infrarenal aortic aneurysm Current Visit: No Status: Acute Plan to address problem: 3.8 cm in diameter Needs to follow-up with vascular surgery at discharge for monitoring -Shock Current Visit: No Status: Acute Plan to address problem: Now on pressors. Continue antibiotics. Await blood culture results VQ scan to rule out PE -- DVT prophylaxis Current Visit: No Status: Acute Plan to address problem: Hold heparin for now. Started on anticoagulation per cardiology. HIT antibody sent --Full code status Current Visit: No Status: Acute Disposition-home with hospice as per patient son plan stable 04/11. Patient seen and examined at bedside this morning. Patient is on BiPAP. Patient is eager to go home. Otherwise denies any chest pain or palpitations. Patient CT showed possible compression fracture of T12, it is unknown if this is new. We will get MRI without contrast of the thoracic and lumbar to further evaluate. If patient actually has an acute compression fracture, he will need to have a neurosurgery evaluation so will need to be transferred to another facility for this. Otherwise, patient continue to monitor patient's respiratory status while in the IMCU. Patient reportedly failed a swallow evaluation and will need to have an NG tube placement. Tried to call son on number provided in the chart and left a message. Awaiting callback. Labs reviewed-patient has elevated inflammatory [id number], LDH. COVID-19 test has been ordered. Started patient on steroids. Ordered stat BMP, ABG, D-dimer, proBNP, ferritin, LDH. 04/12. COVID -19 test is negative. His breathing has improved so was placed on nasal cannula. Cardiology adjusted meds today. He failed swallow evaluation yesterday. He requests for food. Will reattempt swallow evaluation. Speech therapy consult. 04/13. Overnight, he developed VT and was started on amiodarone. HR better this AM. Cardiology will review medications. Patient seen and examined at bedside this AM. He requests for food. He failed a repeat speech evaluation and will need barium swallow. May need PEG placement if he fails. NG tube in place. Vitals reviewed 04/14. Heart rate improved. Remains n.p.o. with NG tube feeds. Video swallow evaluation shows mild abnormal study. Speech therapist to see patient. Patient has not been able to have an MRI of the back due to agitation. He had a CT during the admission that showed possible compression fracture of T12 but this has not been fully evaluated due to patient's ongoing conditions. Labs reviewed-renal function is worse. Discontinue Lasix. 04/15. Has been started on a diet and is tolerating. He pulled out his NG tube last night. Okay to leave NG tube for now. Plan to get an MRI performed today with sedative to evaluate T12 fracture. Patient denies any back pain. Renal function slightly improved today after Lasix was discontinued. Continue IV hydration. Nephrology recommendations appreciated 04/16. He feels better today. MRI could not be done yesterday. Hopefully patient can have an MRI done today. Creatinine 3.1 today. Patient will need placement but will need to have evaluation of possible T12 fracture prior to discharge 04/17. MRI thoracic and lumbar showed acute T12 compression fracture. Discussed case with [facility] front desk person who advised no acute intervention is necessary at this time-advised TLSO brace when patient is sitting or ambulatory. He will need follow-up with Dr. Dalton Jack, Dr. Alan Henson, Dr. Tyson Clark [contact number [phone]] after discharge. 04/18. Await Nephrology recs for d/c plans 04/19/2020. Patient reportedly with choking/coughing with swallowing. We will change to n.p.o. status right now. Speech reevaluation. Check chest x-ray to rule out aspiration pneumonia. Await nephrology recommendations for discharge. Creatinine slowly improving. CT of abdomen negative for hydronephrosis. BUN increasing. Therefore, we will check Hemoccult of stool to rule out GI bleed. Hemoglobin has been stable. 04/20/2020. Repeat chest x-ray reveals worsening bibasilar opacities. Pulmonary consulted. Doppler of left upper extremity for swelling. PT evaluation recommends subacute rehab 04/21/2020. Await pulmonary consultation for worsening bibasilar opacities. Doppler of left upper extremity pending. PT evaluation recommends subacute rehab. Creatinine has improved to near baseline of 1.8. Nephrology following 04/22/2020. Pulmonary sees no need for antibiotics or further evaluation of bibasilar opacities with CT scan. Continue current COPD treatment. Beta blockers increase for A. fib per cardiology. Await Doppler left upper extremity. PT evaluation recommends subacute rehab but case management reports patient's son Haseeb [phone]. Haseeb wants patient to return home with [facility]. 04/23/2020. Continue beta-blockers for atrial fibrillation per cardiology. Await left upper extremity Doppler ultrasound for left upper extremity swelling. PT evaluation recommends subacute rehab but case management reports patient's son Haseeb [phone]. Haseeb wants patient to return home with [facility]. Creatinine appears to be improved to baseline. Anticipate discharge in the next 1 to 2 days. 04/24/2020. Continue beta-blockers for atrial fibrillation per cardiology. Await left upper extremity Doppler ultrasound for left upper extremity swelling. Haseeb (son [phone]) wants patient to return home with [facility]. Creatinine appears to be improved to baseline. Patient now with hypernatremia. ?Tenuous IV fluid hydration--defer to nephrology. 04/25. Blood pressure low this morning but subsequently improved with slow bolus. Sodium today is 150. Patient is dehydrated and is asking for water to drink. I have discussed with RN to ensure patient gets enough water to help with dehydration. His heart rate is controlled and cardiology has adjusted the medication today due to slight hypotension.-Metoprolol now 25 every 8 hours. He is alert and oriented x3 this morning and is able to make needs known. Check BMP every 8 hours for now. Nephrology following 04/26. Transferred to the ICU due to persisted hypotension. WBC trending up. Started on antibiotics. Aetiology of shock could be sepsis. Other differentials - cardiogenic vs obstructive (has been on eliquis 2.5mg BID so not likely. His ddimer is elevated and he cannot get contrast - will get VQ scan. Critical care to see. Blood culture ordered. Repeat labs in AM 04/27. On levophed. Leukocytosis better. Check procalcitonin. On antibiotics. Rest of labs shows anemia and thrombocytopenia. Will dc eliquis. Lasix given but Cr bump noted. Holding lasix for now. Repeat chest xray to evaluate infiltrate and effusion 04/28. BP stable so he was transferred to telemetry. He failed swallow evalua tion. Place an NG tube and start free water via NG tube. DC D5w. He will need GI evaluation for PEG tube placement. Lasix was given for worsenign infiltrate and effusion but Cr bumped. Awaiting repeat chest xray to evaluate for infiltrate. Ordered INR and BNP. May need US thoracentesis for left pleural effusion. Will get pulm consult. Labs reviewed- still has hypernatremia - nephrology following. heme consult for thrombocytopenia. GI consulted for PEG tube placement History Interval history: Patient seen and examined at bedside. Transferred to the floors and is off pressors Failed swallow eval. Hospitalist Physical - Physical exam Narrative exam: VITAL SIGNS: Reviewed. GENERAL: More awake HEAD: No signs of head trauma. EYES: Pupils are equal. Extraocular motions intact. EARS: Hearing grossly intact. MOUTH: Oropharynx is normal. NECK: No adenopathy, no JVD. CHEST: rales with diminished breath sounds on the left CARDIAC: Regular rate and rhythm. S1 and S2, without murmurs, gallops, or rubs. VASCULAR: No Edema. Peripheral pulses normal and equal in all extremities. ABDOMEN: Soft, non tender and non distended. No rebound or guarding, and no masses palpated. Bowel Sounds normal. MUSCULOSKELETAL: Good range of motion of all major joints. Extremities without clubbing, cyanosis or edema. NEUROLOGIC EXAM: Awart PSYCHIATRIC: Stable mood SKIN: No obvious lesions - Constitutional Vitals: Temp Pulse Resp BP Pulse Ox 98.3 F 65 20 93/43 97 04/28/20 09:06 04/28/20 09:06 04/28/20 09:06 04/28/20 09:06 04/28/20 09:06 HEART Score - HEART Score Troponin: Troponin T 0.081 ng/mL (0.00-0.029) H 04/10/20 20:04 Results - Labs CBC & Chem 7: 04/28/20 06:30 04/28/20 06:30 Labs: Laboratory Last Values WBC 6.2 K/mm3 (4.5-11.0) 04/28/20 06:30 RBC 2.99 M/mm3 (3.65-5.03) L 04/28/20 06:30 Hgb 7.2 gm/dl (11.8-15.2) L 04/28/20 06:30 Hct 22.9 % (35.5-45.6) L 04/28/20 06:30 MCV 77 fl (84-94) L 04/28/20 06:30 MCH 24 pg (28-32) L 04/28/20 06:30 MCHC 32 % (32-34) 04/28/20 06:30 RDW 22.0 % (13.2-15.2) H 04/28/20 06:30 Plt Count 50 K/mm3 (140-440) L 04/28/20 06:30 Lymph % (Auto) 9.4 % (13.4-35.0) L 04/28/20 06:30 Whitley % (Auto) 3.0 % (0.0-7.3) 04/28/20 06:30 Eos % (Auto) 1.2 % (0.0-4.3) 04/28/20 06:30 Baso % (Auto) 1.1 % (0.0-1.8) 04/28/20 06:30 Lymph # (Auto) 0.6 K/mm3 (1.2-5.4) L 04/28/20 06:30 Whitley # (Auto) 0.2 K/mm3 (0.0-0.8) 04/28/20 06:30 Eos # (Auto) 0.1 K/mm3 (0.0-0.4) 04/28/20 06:30 Baso # (Auto) 0.1 K/mm3 (0.0-0.1) 04/28/20 06:30 Add Manual Diff Complete 04/26/20 10:13 Total Counted 100 04/26/20 10:13 Seg Neutrophils % 85.3 % (40.0-70.0) H 04/28/20 06:30 Seg Neuts % (Manual) 97.0 % (40.0-70.0) H 04/26/20 10:13 Band Neutrophils % 0 % 04/26/20 10:13 Lymphocytes % (Manual) 1.0 % (13.4-35.0) L 04/26/20 10:13 Reactive Lymphs % (Man) 0 % 04/26/20 10:13 Monocytes % (Manual) 1.0 % (0.0-7.3) 04/26/20 10:13 Eosinophils % (Manual) 0 % (0.0-4.3) 04/26/20 10:13 Basophils % (Manual) 1.0 % (0.0-1.8) 04/26/20 10:13 Metamyelocytes % 0 % 04/26/20 10:13 Myelocytes % 0 % 04/26/20 10:13 Promyelocytes % 0 % 04/26/20 10:13 Blast Cells % 0 % 04/26/20 10:13 Nucleated RBC % Not Reportable 04/26/20 10:13 Seg Neutrophils # 5.3 K/mm3 (1.8-7.7) 04/28/20 06:30 Seg Neutrophils # Man 14.7 K/mm3 (1.8-7.7) H 04/26/20 10:13 Band Neutrophils # 0.0 K/mm3 04/26/20 10:13 Lymphocytes # (Manual) 0.2 K/mm3 (1.2-5.4) L 04/26/20 10:13 Abs React Lymphs (Man) 0.0 K/mm3 04/26/20 10:13 Monocytes # (Manual) 0.2 K/mm3 (0.0-0.8) 04/26/20 10:13 Eosinophils # (Manual) 0.0 K/mm3 (0.0-0.4) 04/26/20 10:13 Basophils # (Manual) 0.2 K/mm3 (0.0-0.1) H 04/26/20 10:13 Metamyelocytes # 0.0 K/mm3 04/26/20 10:13 Myelocytes # 0.0 K/mm3 04/26/20 10:13 Promyelocytes # 0.0 K/mm3 04/26/20 10:13 Blast Cells # 0.0 K/mm3 04/26/20 10:13 WBC Morphology Not Reportable 04/26/20 10:13 Hypersegmented Neuts Not Reportable 04/26/20 10:13 Hyposegmented Neuts Not Reportable 04/26/20 10:13 Hypogranular Neuts Not Reportable 04/26/20 10:13 Smudge Cells Not Reportable 04/26/20 10:13 Toxic Granulation Not Reportable 04/26/20 10:13 Toxic Vacuolation Not Reportable 04/26/20 10:13 Dohle Bodies Not Reportable 04/26/20 10:13 Pelger-Huet Anomaly Not Reportable 04/26/20 10:13 Barby Rods Not Reportable 04/26/20 10:13 Platelet Estimate Consistent w auto 04/26/20 10:13 Clumped Platelets Not Reportable 04/26/20 10:13 Plt Clumps, EDTA Not Reportable 04/26/20 10:13 Large Platelets Not Reportable 04/26/20 10:13 Giant Platelets Not Reportable 04/26/20 10:13 Platelet Satelliting Not Reportable 04/26/20 10:13 Plt Morphology Comment Not Reportable 04/26/20 10:13 RBC Morphology Not Reportable 04/26/20 10:13 Dimorphic RBCs Not Reportable 04/26/20 10:13 Polychromasia Not Reportable 04/26/20 10:13 Hypochromasia 1+ 04/26/20 10:13 Poikilocytosis Not Reportable 04/26/20 10:13 Anisocytosis 1+ 04/26/20 10:13 Microcytosis Not Reportable 04/26/20 10:13 Macrocytosis Not Reportable 04/26/20 10:13 Spherocytes Not Reportable 04/26/20 10:13 Pappenheimer Bodies Not Reportable 04/26/20 10:13 Sickle Cells Not Reportable 04/26/20 10:13 Target Cells Not Reportable 04/26/20 10:13 Tear Drop Cells Not Reportable 04/26/20 10:13 Ovalocytes Not Reportable 04/26/20 10:13 Helmet Cells Not Reportable 04/26/20 10:13 Snell-Quinnesec Bodies Not Reportable 04/26/20 10:13 Firth Rings Not Reportable 04/26/20 10:13 [place] Cells Few 04/26/20 10:13 Bite Cells Not Reportable 04/26/20 10:13 Crenated Cell Not Reportable 04/26/20 10:13 Elliptocytes 1+ 04/26/20 10:13 Acanthocytes (Spur) Not Reportable 04/26/20 10:13 Rouleaux Not Reportable 04/26/20 10:13 Hemoglobin C Crystals Not Reportable 04/26/20 10:13 Schistocytes Few 04/26/20 10:13 Malaria parasites Not Reportable 04/26/20 10:13 Willie Bodies Not Reportable 04/26/20 10:13 Hem Pathologist Commnt No 04/26/20 10:13 PT 15.5 Sec. (12.2-14.9) H 04/12/20 06:22 INR 1.21 (0.87-1.13) H 04/12/20 06:22 D-Dimer 1259.67 ng/mlDDU (0-234) H 04/25/20 16:09 Heparin Anti-Xa Level 0.35 U.I./ml (0.3-0.7) 04/13/20 05:06 Heparin Anti-Xa, Unfract Negative (Negative) 04/17/20 22:45 ABG pH 7.505 pH Units (7.350-7.450) H 04/17/20 10:30 ABG pCO2 25.2 mm Hg 04/17/20 10:30 ABG pO2 157.9 mm Hg (80.0-90.0) H 04/17/20 10:30 ABG HCO3 19.4 mmol/L (20.0-26.0) L 04/17/20 10:30 ABG O2 Saturation 99.1 % (95.0-99.0) H 04/17/20 10:30 ABG O2 Content 12.7 (0.0-44) 04/17/20 10:30 ABG Base Excess -2.8 mmol/L (-2.0-3.0) L 04/17/20 10:30 ABG Hemoglobin 9.1 gm/dl (14.0-18.0) L 04/17/20 10:30 ABG Carboxyhemoglobin 1.6 % (0.0-5.0) 04/17/20 10:30 ABG Methemoglobin 0.4 % (0.0-1.5) 04/17/20 10:30 Oxyhemoglobin 97.0 % (95.0-99.0) 04/17/20 10:30 FiO2 35 % 04/17/20 10:30 Sodium 153 mmol/L (137-145) H 04/28/20 06:30 Potassium 3.8 mmol/L (3.6-5.0) 04/28/20 06:30 Chloride 117.7 mmol/L (98-107) H 04/28/20 06:30 Carbon Dioxide 23 mmol/L (22-30) 04/28/20 06:30 Anion Gap 16 mmol/L 04/28/20 06:30 BUN 65 mg/dL (9-20) H 04/28/20 06:30 Creatinine 2.1 mg/dL (0.8-1.3) H 04/28/20 06:30 Estimated GFR 31 ml/min 04/28/20 06:30 BUN/Creatinine Ratio 31 % 04/28/20 06:30 Glucose 96 mg/dL (75-100) 04/28/20 06:30 POC Glucose 81 mg/dL (70-105) 04/28/20 07:41 Lactic Acid 3.00 mmol/L (0.7-2.0) H* 04/12/20 06:22 Calcium 8.1 mg/dL (8.4-10.2) L 04/28/20 06:30 Phosphorus 5.60 mg/dL (2.5-4.5) H 04/10/20 22:50 Magnesium 2.40 mg/dL (1.7-2.3) H 04/10/20 22:50 Ferritin 135.1 ng/mL (30.0-300.0) 04/11/20 15:11 Total Bilirubin 1.20 mg/dL (0.1-1.2) 04/28/20 06:30 Direct Bilirubin 0.6 mg/dL (0-0.2) H 04/15/20 04:56 Indirect Bilirubin 0.3 mg/dL 04/15/20 04:56 AST 16 units/L (5-40) 04/28/20 06:30 ALT 28 units/L (7-56) 04/28/20 06:30 Alkaline Phosphatase 95 units/L (35-129) 04/28/20 06:30 Lactate Dehydrogenase 664 units/L (91-180) H 04/10/20 20:51 Troponin T 0.081 ng/mL (0.00-0.029) H 04/10/20 20:04 C-Reactive Protein 5.60 mg/dL (0.00-1.30) H 04/10/20 20:51 NT-Pro-B Natriuret Pep > 13475 pg/mL (0-900) H 04/11/20 15:11 Total Protein 5.4 g/dL (6.3-8.2) L 04/28/20 06:30 Albumin 2.5 g/dL (3.9-5) L 04/28/20 06:30 Albumin/Globulin Ratio 0.9 % 04/28/20 06:30 Triglycerides 113 mg/dL (2-149) 04/10/20 20:04 Cholesterol 178 mg/dL (50-199) 04/10/20 20:04 LDL Cholesterol Direct 123 mg/dL (50-130) 04/10/20 20:04 HDL Cholesterol 41 mg/dL (40-59) 04/10/20 20:04 Cholesterol/HDL Ratio 4.34 % 04/10/20 20:04 Serotonin Release Assay See scanned result 04/17/20 22:45 Procalcitonin 0.38 ng/mL (<0.15) 04/27/20 09:30 TSH 3.640 mlU/mL (0.270-4.200) 04/13/20 10:06 Urine Color Yellow (Yellow) 04/11/20 Unknown Urine Turbidity Clear (Clear) 04/11/20 Unknown Urine pH 5.0 (5.0-7.0) 04/11/20 Unknown Ur Specific [place] 1.009 (1.003-1.030) 04/11/20 Unknown Urine Protein <15 mg/dl mg/dL (Negative) 04/11/20 Unknown Urine Glucose (UA) Neg mg/dL (Negative) 04/11/20 Unknown Urine Ketones Neg mg/dL (Negative) 04/11/20 Unknown Urine Blood Neg (Negative) 04/11/20 Unknown Urine Nitrite Neg (Negative) 04/11/20 Unknown Urine Bilirubin Neg (Negative) 04/11/20 Unknown Urine Urobilinogen < 2.0 mg/dL (<2.0) 04/11/20 Unknown Ur Leukocyte Esterase Neg (Negative) 04/11/20 Unknown Urine WBC (Auto) 1.0 /HPF (0.0-6.0) 04/11/20 Unknown Urine RBC (Auto) 2.0 /HPF (0.0-6.0) 04/11/20 Unknown U Epithel Cells (Auto) < 1.0 /HPF (0-13.0) 04/11/20 Unknown Hyaline Casts 3 /LPF 04/11/20 Unknown Urine Mucus Few /HPF 04/11/20 Unknown Urine Eosinophils None seen (None Seen) 04/11/20 Unknown Urine Creatinine 35.3 mg/dL (0.1-20.0) H 04/11/20 Unknown Urine Sodium 92 mmol/L 04/11/20 Unknown Heparin-induced Plt Ab Negative (Negative) 04/17/20 22:45 UF Heparin High Dose 0 % Release 04/17/20 22:45 CHERYL UFH Low Dose 0.1 0 % Release 04/17/20 22:45 CHERYL UFH Low Dose 0.5 0 % Release 04/17/20 22:45 Coronavirus (PCR) Negative (Negative) 04/11/20 Unknown Hepatitis A IgM Ab Non-reactive (NonReactive) 04/12/20 20: Hep Bs Antigen Non-reactive (Negative) 04/12/20 20:23 Hep B Core IgM Ab Non-reactive (NonReactive) 04/12/20 20:23 Hepatitis C Antibody Non-reactive (NonReactive) 04/12/20 20:23 Microbiology: Microbiology 04/26/20 18:21 Peripheral/Venous Blood Culture - Preliminary NO GROWTH AFTER 24 HOURS 04/26/20 18:21 Peripheral/Venous Blood Culture - Preliminary NO GROWTH AFTER 24 HOURS Gay/IV: Voiding Method Condom Catheter IV Catheter Type [Right Peripheral IV External Jugular] IV Catheter Type [Left Peripheral IV External Jugular] IV Catheter Type [Right Upper PICC Line arm] IV Catheter Type [Left Wrist] Peripheral IV IV Catheter Type [Right INT / Saline Lock Forearm] IV Catheter Type [Right Wrist] INT / Saline Lock Active Medications - Current Medications Current Medications: Generic Name Dose Route Start Last Admin Trade Name Freq PRN Reason Stop Dose Admin Acetaminophen 650 mg 04/11/20 01:26 04/23/20 23:13 Tylenol PO 650 mg Q6H PRN Administration Pain MILD(1-3)/Fever >100.5/MANCILLA Lipase/Protease/Amylase 1 each 04/11/20 14:[address] 10,500 Unit FEEDTUBE PRN PRN For Clogged Feeding Tube Arformoterol Tartrate 15 mcg 04/20/20 20:00 04/28/20 07:54 Brovana Nebu IH 15 mcg Q12HRT PRAVIN Administration Budesonide 0.5 mg 04/20/20 20:00 04/28/20 07:54 Pulmicort IH 0.5 mg Q12HRT PRAVIN Administration Norepinephrine 4 mg in 250 mls @ 7.5 mls/hr 04/25/20 17:00 04/27/20 18:15 Levophed Drip 4 Mg/Ns 250 Ml IV 0 mcg/min TITR PRAVIN 0 mls/hr Titration Protocol 2 MCG/MIN Piperacillin Sod/Tazobactam Sod 3.375 gm in 50 mls @ 100 mls/hr 04/26/20 03:00 04/28/20 09:41 Zosyn/Ns 3.375gm/50ml IV Not Given Q8H [facility] Protocol Insulin Glargine 10 units 04/16/20 22:00 04/27/20 22:08 Lantus SUB-Q Not Given QHS PRAVIN Insulin Human Lispro 0 unit 04/16/20 16:30 04/28/20 08:30 Humalog SUB-Q Not Given ACHS [facility] Protocol Magnesium Hydroxide 30 ml 04/11/20 01:26 Milk Of Magnesia PO Q4H PRN Constipation Metoprolol Tartrate 25 mg 04/25/20 14:00 04/28/20 09:41 Metoprolol PO Not Given Q8HR [facility] Ondansetron HCl 4 mg 04/25/20 04:53 04/25/20 05:25 Zofran IV 4 mg Q8H PRN Administration Nausea And Vomiting Simple Syrup 15 ml 04/11/20 14:22 Simple Syrup FEEDTUBE PRN PRN Hypoglycemia Simple Syrup 30 ml 04/11/20 14:22 Simple Syrup FEEDTUBE PRN PRN Hypoglycemia Sodium Bicarbonate 325 mg 04/11/20 14:22 Sodium Bicarbonate FEEDTUBE PRN PRN For Clogged Feeding Tube Sodium Chloride 10 ml 04/11/20 10:00 04/27/20 22:05 Sodium Chloride Flush Syringe 10 Ml IV 10 ml BID PRAVIN Administration Sodium Chloride 10 ml 04/11/20 01:26 Sodium Chloride Flush Syringe 10 Ml IV PRN PRN LINE FLUSH Nutrition/Malnutrition Assess - Dietary Evaluation Nutrition/Malnutrition Findings: Nutrition Notes Start: 04/11/20 13:41 Freq: Status: Active Protocol: Document 04/28/20 10:09 CW (Rec: 04/28/20 10:23 CW [email or web address]) Co-Sign 04/28/20 10:09 LM Nutrition Notes Initial or Follow up Reassessment Current Diagnosis Acute Kidney Injury,CKD(stage I-IV),COPD,Coronary Artery Disease,Diabetes,Hypertension, Heart Failure Other Pertinent Diagnosis NM, Crohn's disease, seizure, colitis Current Diet NPO Labs/Tests BUN 65 Cr 2.1 Pertinent Medications Reviewed Height 5 ft 7 in Weight 64.4 kg [place] Body Weight (kg) 67.27 BMI 22.2 Subjective/Other Information SPL reported aspiration risk on 04/27. Pt has been NPO since 04/26. Consult for TF. Percent of energy/protein needs met: 0%/0% Burn Absent Trauma Absent Difficulty In Swallowing,Chewing Current % PO Negligible Minimum of two criteria No Energy Intake (non-severe) <75% Estimated Energy Requirement >7 days #1 Nutrition Diagnosis Inadequate oral intake Diagnosis Progress(for reassessment Continues documentation) Is patient on ventilator? No Is Patient Ambulatory and/or Out of Bed No REE-([facility]-confined to bed) 2472.579 Calculation Used for Recommendations [facility] Additional Notes Protein Needs: 52-78 g (0.8-1. 2 g/kg) Fluid Needs: 1 mL/kcal Nutrition Intervention Change Diet Order: TF Nutrition Support: Nepro 1.2 at 35 mls/hr Flush 250ml q4h for hypernatremia Flush 150ml q4h once resolved Kcal 1,512 Protein (gm) 68 Fluid (mL) 610 Goal #1 Meet at least 75% of energy an protein needs via TF Anticipated Discharge Needs: Unable to determine at this time Follow-Up By: 05/01/20 Additional Comments FU for TF start and tolerance
[2020-04-28 11:58] LABS: INR 2.12 (0.87-1.13)
--- NOTE | 2020-04-28 13:07 | Event Note ---
Date: 04/28/20 Asked to speak about pleural effusion. I have seen this patient already in the past. He has an EF of 15%. Was in the ICU for about 48 hours with hypotension and given several liters of fluids. The patient is on 2 liters NC and in no distress. Thoracentesis has been ordered but not able to be done secondary to elevated INR. At this time, cannot recommend diuresis and fluid imbalance has been a problem for this patient. Agree with wale but this is most likely a transudative effusion secondary to heart failure. Please send LDH, Protein, Cell Count with diff as well as gram stain and culture, glucose and afb and fungal stains on the fluid. No further recommendations. Will follow up back up once results are back.
--- NOTE | 2020-04-28 13:34 | Progress Note ---
History Interval history: Patient seen and examined at bedside. Transferred to the floors and is off pressors Failed swallow eval. GI eval pending Hospitalist Physical - Physical exam Narrative exam: VITAL SIGNS: Reviewed. GENERAL: More awake HEAD: No signs of head trauma. EYES: Pupils are equal. Extraocular motions intact. EARS: Hearing grossly intact. MOUTH: Oropharynx is normal. NECK: No adenopathy, no JVD. CHEST: rales with diminished breath sounds on the left CARDIAC: Regular rate and rhythm. S1 and S2, without murmurs, gallops, or rubs. VASCULAR: No Edema. Peripheral pulses normal and equal in all extremities. ABDOMEN: Soft, non tender and non distended. No rebound or guarding, and no masses palpated. Bowel Sounds normal. MUSCULOSKELETAL: Good range of motion of all major joints. Extremities without clubbing, cyanosis or edema. NEUROLOGIC EXAM: Awart PSYCHIATRIC: Stable mood SKIN: No obvious lesions - Constitutional Vitals: Temp Pulse Resp BP Pulse Ox 98.3 F 60 20 107/55 97 04/28/20 11:17 04/28/20 12:00 04/28/20 11:17 04/28/20 11:17 04/28/20 11:17 HEART Score - HEART Score Troponin: Troponin T 0.081 ng/mL (0.00-0.029) H 04/10/20 20:04 Results - Labs CBC & Chem 7: 04/28/20 06:30 04/28/20 06:30 Labs: Laboratory Last Values WBC 6.2 K/mm3 (4.5-11.0) 04/28/20 06:30 RBC 2.99 M/mm3 (3.65-5.03) L 04/28/20 06:30 Hgb 7.2 gm/dl (11.8-15.2) L 04/28/20 06:30 Hct 22.9 % (35.5-45.6) L 04/28/20 06:30 MCV 77 fl (84-94) L 04/28/20 06:30 MCH 24 pg (28-32) L 04/28/20 06:30 MCHC 32 % (32-34) 04/28/20 06:30 RDW 22.0 % (13.2-15.2) H 04/28/20 06:30 Plt Count 50 K/mm3 (140-440) L 04/28/20 06:30 Lymph % (Auto) 9.4 % (13.4-35.0) L 04/28/20 06:30 [place] % (Auto) 3.0 % (0.0-7.3) 04/28/20 06:30 Eos % (Auto) 1.2 % (0.0-4.3) 04/28/20 06:30 Baso % (Auto) 1.1 % (0.0-1.8) 04/28/20 06:30 Lymph # (Auto) 0.6 K/mm3 (1.2-5.4) L 04/28/20 06:30 [place] # (Auto) 0.2 K/mm3 (0.0-0.8) 04/28/20 06:30 Eos # (Auto) 0.1 K/mm3 (0.0-0.4) 04/28/20 06:30 Baso # (Auto) 0.1 K/mm3 (0.0-0.1) 04/28/20 06:30 Add Manual Diff Complete 04/26/20 10:13 Total Counted 100 04/26/20 10:13 Seg Neutrophils % 85.3 % (40.0-70.0) H 04/28/20 06:30 Seg Neuts % (Manual) 97.0 % (40.0-70.0) H 04/26/20 10:13 Band Neutrophils % 0 % 04/26/20 10:13 Lymphocytes % (Manual) 1.0 % (13.4-35.0) L 04/26/20 10:13 Reactive Lymphs % (Man) 0 % 04/26/20 10:13 Monocytes % (Manual) 1.0 % (0.0-7.3) 04/26/20 10:13 Eosinophils % (Manual) 0 % (0.0-4.3) 04/26/20 10:13 Basophils % (Manual) 1.0 % (0.0-1.8) 04/26/20 10:13 Metamyelocytes % 0 % 04/26/20 10:13 Myelocytes % 0 % 04/26/20 10:13 Promyelocytes % 0 % 04/26/20 10:13 Blast Cells % 0 % 04/26/20 10:13 Nucleated RBC % Not Reportable 04/26/20 10:13 Seg Neutrophils # 5.3 K/mm3 (1.8-7.7) 04/28/20 06:30 Seg Neutrophils # Man 14.7 K/mm3 (1.8-7.7) H 04/26/20 10:13 Band Neutrophils # 0.0 K/mm3 04/26/20 10:13 Lymphocytes # (Manual) 0.2 K/mm3 (1.2-5.4) L 04/26/20 10:13 Abs React Lymphs (Man) 0.0 K/mm3 04/26/20 10:13 Monocytes # (Manual) 0.2 K/mm3 (0.0-0.8) 04/26/20 10:13 Eosinophils # (Manual) 0.0 K/mm3 (0.0-0.4) 04/26/20 10:13 Basophils # (Manual) 0.2 K/mm3 (0.0-0.1) H 04/26/20 10:13 Metamyelocytes # 0.0 K/mm3 04/26/20 10:13 Myelocytes # 0.0 K/mm3 04/26/20 10:13 Promyelocytes # 0.0 K/mm3 04/26/20 10:13 Blast Cells # 0.0 K/mm3 04/26/20 10:13 WBC Morphology Not Reportable 04/26/20 10:13 Hypersegmented Neuts Not Reportable 04/26/20 10:13 Hyposegmented Neuts Not Reportable 04/26/20 10:13 Hypogranular Neuts Not Reportable 04/26/20 10:13 Smudge Cells Not Reportable 04/26/20 10:13 Toxic Granulation Not Reportable 04/26/20 10:13 Toxic Vacuolation Not Reportable 04/26/20 10:13 Dohle Bodies Not Reportable 04/26/20 10:13 Pelger-Huet Anomaly Not Reportable 04/26/20 10:13 Barby Rods Not Reportable 04/26/20 10:13 Platelet Estimate Consistent w auto 04/26/20 10:13 Clumped Platelets Not Reportable 04/26/20 10:13 Plt Clumps, EDTA Not Reportable 04/26/20 10:13 Large Platelets Not Reportable 04/26/20 10:13 Giant Platelets Not Reportable 04/26/20 10:13 Platelet Satelliting Not Reportable 04/26/20 10:13 Plt Morphology Comment Not Reportable 04/26/20 10:13 RBC Morphology Not Reportable 04/26/20 10:13 Dimorphic RBCs Not Reportable 04/26/20 10:13 Polychromasia Not Reportable 04/26/20 10:13 Hypochromasia 1+ 04/26/20 10:13 Poikilocytosis Not Reportable 04/26/20 10:13 Anisocytosis 1+ 04/26/20 10:13 Microcytosis Not Reportable 04/26/20 10:13 Macrocytosis Not Reportable 04/26/20 10:13 Spherocytes Not Reportable 04/26/20 10:13 Pappenheimer Bodies Not Reportable 04/26/20 10:13 Sickle Cells Not Reportable 04/26/20 10:13 Target Cells Not Reportable 04/26/20 10:13 Tear Drop Cells Not Reportable 04/26/20 10:13 Ovalocytes Not Reportable 04/26/20 10:13 Helmet Cells Not Reportable 04/26/20 10:13 Snell-Cyril Bodies Not Reportable 04/26/20 10:13 Nixa Rings Not Reportable 04/26/20 10:13 Marcia Cells Few 04/26/20 10:13 Bite Cells Not Reportable 04/26/20 10:13 Crenated Cell Not Reportable 04/26/20 10:13 Elliptocytes 1+ 04/26/20 10:13 Acanthocytes (Spur) Not Reportable 04/26/20 10:13 Rouleaux Not Reportable 04/26/20 10:13 Hemoglobin C Crystals Not Reportable 04/26/20 10:13 Schistocytes Few 04/26/20 10:13 Malaria parasites Not Reportable 04/26/20 10:13 Willie Bodies Not Reportable 04/26/20 10:13 Hem Pathologist Commnt No 04/26/20 10:13 PT 23.9 Sec. (12.2-14.9) H 04/28/20 11:10 INR 2.12 (0.87-1.13) H 04/28/20 11:10 D-Dimer 1259.67 ng/mlDDU (0-234) H 04/25/20 16:09 Heparin Anti-Xa Level 0.35 U.I./ml (0.3-0.7) 04/13/20 05:06 Heparin Anti-Xa, Unfract Negative (Negative) 04/17/20 22:45 ABG pH 7.505 pH Units (7.350-7.450) H 04/17/20 10:30 ABG pCO2 25.2 mm Hg 04/17/20 10:30 ABG pO2 157.9 mm Hg (80.0-90.0) H 04/17/20 10:30 ABG HCO3 19.4 mmol/L (20.0-26.0) L 04/17/20 10:30 ABG O2 Saturation 99.1 % (95.0-99.0) H 04/17/20 10:30 ABG O2 Content 12.7 (0.0-44) 04/17/20 10:30 ABG Base Excess -2.8 mmol/L (-2.0-3.0) L 04/17/20 10:30 ABG Hemoglobin 9.1 gm/dl (14.0-18.0) L 04/17/20 10:30 ABG Carboxyhemoglobin 1.6 % (0.0-5.0) 04/17/20 10:30 ABG Methemoglobin 0.4 % (0.0-1.5) 04/17/20 10:30 Oxyhemoglobin 97.0 % (95.0-99.0) 04/17/20 10:30 FiO2 35 % 04/17/20 10:30 Sodium 153 mmol/L (137-145) H 04/28/20 06:30 Potassium 3.8 mmol/L (3.6-5.0) 04/28/20 06:30 Chloride 117.7 mmol/L (98-107) H 04/28/20 06:30 Carbon Dioxide 23 mmol/L (22-30) 04/28/20 06:30 Anion Gap 16 mmol/L 04/28/20 06:30 BUN 65 mg/dL (9-20) H 04/28/20 06:30 Creatinine 2.1 mg/dL (0.8-1.3) H 04/28/20 06:30 Estimated GFR 31 ml/min 04/28/20 06:30 BUN/Creatinine Ratio 31 % 04/28/20 06:30 Glucose 96 mg/dL (75-100) 04/28/20 06:30 POC Glucose 97 mg/dL (70-105) 04/28/20 12:16 Lactic Acid 3.00 mmol/L (0.7-2.0) H* 04/12/20 06:22 Calcium 8.1 mg/dL (8.4-10.2) L 04/28/20 06:30 Phosphorus 5.60 mg/dL (2.5-4.5) H 04/10/20 22:50 Magnesium 2.40 mg/dL (1.7-2.3) H 04/10/20 22:50 Ferritin 135.1 ng/mL (30.0-300.0) 04/11/20 15:11 Total Bilirubin 1.20 mg/dL (0.1-1.2) 04/28/20 06:30 Direct Bilirubin 0.6 mg/dL (0-0.2) H 04/15/20 04:56 Indirect Bilirubin 0.3 mg/dL 04/15/20 04:56 AST 16 units/L (5-40) 04/28/20 06:30 ALT 28 units/L (7-56) 04/28/20 06:30 Alkaline Phosphatase 95 units/L (35-129) 04/28/20 06:30 Lactate Dehydrogenase 210 units/L (91-180) H 04/28/20 11:10 Troponin T 0.081 ng/mL (0.00-0.029) H 04/10/20 20:04 C-Reactive Protein 5.60 mg/dL (0.00-1.30) H 04/10/20 20:51 NT-Pro-B Natriuret Pep 39345 pg/mL (0-900) H 04/28/20 11:10 Total Protein 5.5 g/dL (6.3-8.2) L 04/28/20 11:10 Albumin 2.5 g/dL (3.9-5) L 04/28/20 06:30 Albumin/Globulin Ratio 0.9 % 04/28/20 06:30 Triglycerides 113 mg/dL (2-149) 04/10/20 20:04 Cholesterol 178 mg/dL (50-199) 04/10/20 20:04 LDL Cholesterol Direct 123 mg/dL (50-130) 04/10/20 20:04 HDL Cholesterol 41 mg/dL (40-59) 04/10/20 20:04 Cholesterol/HDL Ratio 4.34 % 04/10/20 20:04 Serotonin Release Assay See scanned result 04/17/20 22:45 Procalcitonin 0.38 ng/mL (<0.15) 04/27/20 09:30 TSH 3.640 mlU/mL (0.270-4.200) 04/13/20 10:06 Urine Color Yellow (Yellow) 04/11/20 Unknown Urine Turbidity Clear (Clear) 04/11/20 Unknown Urine pH 5.0 (5.0-7.0) 04/11/20 Unknown Ur Specific [place] 1.009 (1.003-1.030) 04/11/20 Unknown Urine Protein <15 mg/dl mg/dL (Negative) 04/11/20 Unknown Urine Glucose (UA) Neg mg/dL (Negative) 04/11/20 Unknown Urine Ketones Neg mg/dL (Negative) 04/11/20 Unknown Urine Blood Neg (Negative) 04/11/20 Unknown Urine Nitrite Neg (Negative) 04/11/20 Unknown Urine Bilirubin Neg (Negative) 04/11/20 Unknown Urine Urobilinogen < 2.0 mg/dL (<2.0) 04/11/20 Unknown Ur Leukocyte Esterase Neg (Negative) 04/11/20 Unknown Urine WBC (Auto) 1.0 /HPF (0.0-6.0) 04/11/20 Unknown Urine RBC (Auto) 2.0 /HPF (0.0-6.0) 04/11/20 Unknown U Epithel Cells (Auto) < 1.0 /HPF (0-13.0) 04/11/20 Unknown Hyaline Casts 3 /LPF 04/11/20 Unknown Urine Mucus Few /HPF 04/11/20 Unknown Urine Eosinophils None seen (None Seen) 04/11/20 Unknown Urine Creatinine 35.3 mg/dL (0.1-20.0) H 04/11/20 Unknown Urine Sodium 92 mmol/L 04/11/20 Unknown Heparin-induced Plt Ab Negative (Negative) 04/17/20 22:45 UF Heparin High Dose 0 % Release 04/17/20 22:45 CHERYL UFH Low Dose 0.1 0 % Release 04/17/20 22:45 CHERYL UFH Low Dose 0.5 0 % Release 04/17/20 22:45 Coronavirus (PCR) Negative (Negative) 04/11/20 Unknown Hepatitis A IgM Ab Non-reactive (NonReactive) 04/12/20 20:23 Hep Bs Antigen Non-reactive (Negative) 04/12/20 20:23 Hep B Core IgM Ab Non-reactive (NonReactive) 04/12/20 20:23 Hepatitis C Antibody Non-reactive (NonReactive) 04/12/20 20:23 Microbiology: Microbiology 04/26/20 18:21 Peripheral/Venous Blood Culture - Preliminary NO GROWTH AFTER 24 HOURS 04/26/20 18:21 Peripheral/Venous Blood Culture - Preliminary NO GROWTH AFTER 24 HOURS Gay/IV: Voiding Method Condom Catheter IV Catheter Type [Right Peripheral IV External Jugular] IV Catheter Type [Left Peripheral IV External Jugular] IV Catheter Type [Right Upper PICC Line arm] IV Catheter Type [Left Wrist] Peripheral IV IV Catheter Type [Right INT / Saline Lock Forearm] IV Catheter Type [Right Wrist] INT / Saline Lock Active Medications - Current Medications Current Medications: Generic Name Dose Route Start Last Admin Trade Name Freq PRN Reason Stop Dose Admin Acetaminophen 650 mg 04/11/20 01:26 04/23/20 23:13 Tylenol PO 650 mg Q6H PRN Administration Pain MILD(1-3)/Fever >100.5/MANCILLA Lipase/Protease/Amylase 1 each 04/11/20 14:[address] 10,500 Unit FEEDTUBE PRN PRN For Clogged Feeding Tube Arformoterol Tartrate 15 mcg 04/20/20 20:00 04/28/20 07:54 Brovana Nebu IH 15 mcg Q12HRT PRAVIN Administration Budesonide 0.5 mg 04/20/20 20:00 04/28/20 07:54 Pulmicort IH 0.5 mg Q12HRT PRAVIN Administration Norepinephrine 4 mg in 250 mls @ 7.5 mls/hr 04/25/20 17:00 04/27/20 18:15 Levophed Drip 4 Mg/Ns 250 Ml IV 0 mcg/min TITR PRAVIN 0 mls/hr Titration Protocol 2 MCG/MIN Piperacillin Sod/Tazobactam Sod 3.375 gm in 50 mls @ 100 mls/hr 04/26/20 03:00 04/28/20 12:38 Zosyn/Ns 3.375gm/50ml IV 100 mls/hr Q8H PRAVIN Administration Protocol Insulin Glargine 10 units 04/16/20 22:00 04/27/20 22:08 Lantus SUB-Q Not Given QHS PRAVIN Insulin Human Lispro 0 unit 04/16/20 16:30 04/28/20 12:37 Humalog SUB-Q Not Given ACHS [facility] Protocol Magnesium Hydroxide 30 ml 04/11/20 01:26 Milk Of Magnesia PO Q4H PRN Constipation Metoprolol Tartrate 25 mg 04/25/20 14:00 04/28/20 09:41 Metoprolol PO Not Given Q8HR PRAVIN Ondansetron HCl 4 mg 04/25/20 04:53 04/25/20 05:25 Zofran IV 4 mg Q8H PRN Administration Nausea And Vomiting Simple Syrup 15 ml 04/11/20 14:22 Simple Syrup FEEDTUBE PRN PRN Hypoglycemia Simple Syrup 30 ml 04/11/20 14:22 Simple Syrup FEEDTUBE PRN PRN Hypoglycemia Sodium Bicarbonate 325 mg 04/11/20 14:22 Sodium Bicarbonate FEEDTUBE PRN PRN For Clogged Feeding Tube Sodium Chloride 10 ml 04/11/20 10:00 04/28/20 12:39 Sodium Chloride Flush Syringe 10 Ml IV 10 ml BID PRAVIN Administration Sodium Chloride 10 ml 04/11/20 01:26 Sodium Chloride Flush Syringe 10 Ml IV PRN PRN LINE FLUSH Nutrition/Malnutrition Assess - Dietary Evaluation Nutrition/Malnutrition Findings: Nutrition Notes Start: 04/11/20 13:41 Freq: Status: Active Protocol: Document 04/28/20 10:09 CW (Rec: 04/28/20 10:23 CW [email or web address]) Co-Sign 04/28/20 10:09 LM Nutrition Notes Initial or Follow up Reassessment Current Diagnosis Acute Kidney Injury,CKD(stage I-IV),COPD,Coronary Artery Disease,Diabetes,Hypertension, Heart Failure Other Pertinent Diagnosis [place], Crohn's disease, seizure, colitis Current Diet NPO Labs/Tests BUN 65 Cr 2.1 Pertinent Medications Reviewed Height 5 ft 7 in Weight 64.4 kg [place] Body Weight (kg) 67.27 BMI 22.2 Subjective/Other Information SPL reported aspiration risk on 04/27. Pt has been NPO since 04/26. Consult for TF. Percent of energy/protein needs met: 0%/0% Burn Absent Trauma Absent Difficulty In Swallowing,Chewing Current % PO Negligible Minimum of two criteria No Energy Intake (non-severe) <75% Estimated Energy Requirement >7 days #1 Nutrition Diagnosis Inadequate oral intake Diagnosis Progress(for reassessment Continues documentation) Is patient on ventilator? No Is Patient Ambulatory and/or Out of Bed No REE-([facility]-confined to bed) [phone] Calculation Used for Recommendations [facility] Additional Notes Protein Needs: 52-78 g (0.8-1. 2 g/kg) Fluid Needs: 1 mL/kcal Nutrition Intervention Change Diet Order: TF Nutrition Support: [place] 1.2 at 35 mls/hr Flush 250ml q4h for hypernatremia Flush 150ml q4h once resolved Kcal 1,512 Protein (gm) 68 Fluid (mL) 610 Goal #1 Meet at least 75% of energy an protein needs via TF Anticipated Discharge Needs: Unable to determine at this time Follow-Up By: 05/01/20 Additional Comments FU for TF start and tolerance
--- NOTE | 2020-04-28 14:07 | Cat Scan Report ---
CT CHEST WITHOUT CONTRAST INDICATION / CLINICAL INFORMATION: Evaluate left sided pleural effusion. TECHNIQUE: Axial CT images were obtained through the chest without contrast. All CT scans at this location are p erformed using CT dose reduction for ALARA by means of automated exposure control. COMPARISON: Chest radiograph 04/28/2020; CT abdomen pelvis 07/30/2018 FINDINGS: HEART: Cardiomegaly with multivessel coronary artery atherosclerotic calcification. Mild aortic valve calcification. Right-sided central venous catheter tip terminates at the cavoatrial junction. Physio logic pericardial fluid is present. THORACIC AORTA: Severe atherosclerotic calcification without acute abnormality. MEDIASTINUM and AMADEO: No significant abnormality. LUNGS/AIRWAYS: Essentially complete left lower lobe volume loss with mild left upper lobe volume loss . Near-complete right lower lobe volume loss. Mild scattered groundglass attenuation with some interl obular septal thickening. PLEURA: Large bilateral pleural effusions, greater on the left. No pneumothorax. UPPER ABDOMEN: No significant abnormality. SKELETAL SYSTEM: Mild anterior compression deformity of T11 appears similar when compared to the prio r CT examination. Interval moderate anterior compression deformity of the T12 superior endplate. Find ing is age indeterminate. ADDITIONAL FINDINGS: Diffuse body wall edema. IMPRESSION: 1. Large bilateral pleural effusions with associated volume loss as detailed above. Findings are grea ter on the left. 2. Cardiomegaly with scattered pulmonary groundglass and interlobular septal thickening suggesting pu lmonary edema. 3. Age-indeterminate compression deformity of the T12 superior endplate. Recommend clinical correlati on and further evaluation as warranted. Signer Name: Joaquin Beatty MD Signed: 04/28/2020 2:03 PM Workstation Name: [id number]
--- NOTE | 2020-04-28 17:22 | XRay Report ---
ABDOMEN ONE VIEW INDICATION / CLINICAL INFORMATION: tube placement verification. COMPARISON: None available. FINDINGS: The nasogastric tube is extending down the right mainstem bronchus into the right lung. CRITICAL RESULT: Time of Discovery: 1615 hours Time of Communication: 1617 hours Licensed Practitioner Receiving Report: Susie, the patient's nurse Read Back Performed: Yes. Signer Name: Yanick Spencer MD FACR Signed: 04/28/2020 5:18 PM Workstation Name: [id number]
[2020-04-28] MEDS ORDERED: DIGOXIN 0.5 MG/2 ML INJ IV ONE (18:51)
[2020-04-28] MEDS: INSULIN GLARGINE 100 UNITS/ML SUB-Q SCH (22:04)
[2020-04-29] MEDS: PIPERACILLIN/TAZOBACTAM 3.375 3.375 GM/50 ML BAG IV SCH ×3 (04:51→22:16)
[2020-04-29 06:24] LABS: Eosinophils % (Auto) 0.7 % (0.0-4.3); Hematocrit 24.1 % (35.5-45.6); Hemoglobin 7.4 gm/dl (11.8-15.2); Lymphocytes # (Auto) 0.5 K/mm3 (1.2-5.4); Lymphocytes % (Auto) 10.3 % (13.4-35.0); Mean Corpuscular HGB Conc 31 % (32-34); Mean Corpuscular Volume 78 fl (84-94); Monocytes # (Auto) 0.2 K/mm3 (0.0-0.8); Monocytes % (Auto) 3.4 % (0.0-7.3)
[2020-04-29 06:29] LABS: Platelet Count 51 K/mm3 (140-440); Red Cell Distribution Width 22.5 % (13.2-15.2)
[2020-04-29 06:42] LABS: Albumin 2.5 g/dL (3.9-5); Calcium 8.2 mg/dL (8.4-10.2)
[2020-04-29] MEDS: INSULIN LISPRO 100 UNIT/ML VIAL 3 mL SUB-Q SCH ×4 (07:36→22:17)
[2020-04-29] MEDS: METOPROLOL TARTRATE 25 MG TAB PO SCH ×3 (07:37→22:18)
--- NOTE | 2020-04-29 08:39 | Hem/Onc Consultation ---
History of Present Illness - Reason for Consult Consult date: 04/28/20 - History of Present Illness hematology consult for low plt count, requested by hospitalist televisit by Giovana 75yo disabled man with CAD, DM [facility] with CHF, EF 15%, mention of Crohn's disease mention of stroke had been in [facility] 01/2020 for pneumonia, CHF-->discharged into hospice re-adm 04/20/20 for SOB and abd pain found to have arrythmia, concern for CHF and pneumonia since admission in and out of ICU-->now out found to have trend to low plt counts 250-->50's and low HCT- now 23 has been recieiving IV Abx heme consult requested for guidance EXAM: confused, not able to recount his medicsl history cachectic, looks like he stays inbed most of the day see data below HIT screen neg 04/17/20 IMPRESSION: low plt count likely due to meds or infection; Zosyn is a possible culprit mod severe anemia likely due to phlebotomy, chronic bleeding, inflamm state, maybe infection doubt heme malignancy, but also possible RECOMMEND no intervention for abn blood counts no transfusions planned labs to include another PF4 Ab test end of life discussion is appropriate, even though he is not close to dying OK to continue low dose lovenox for DVT/PE prevention is plt>30 Active Medications Piperacillin Sod/Tazobactam Sod (Zosyn/Ns 3.375gm/50ml) 3.375 gm in 50 mls @ 100 mls/hr IV Q8H PRAVIN; Protocol Last Admin: 04/29/20 04:51 Dose: 100 mls/hr Documented by: Insulin Glargine (Lantus) 10 units SUB-Q QHS PRAVIN Last Admin: 04/28/20 22:04 Dose: Not Given Documented by: Insulin Human Lispro (Humalog) 0 unit SUB-Q ACHS PRAVIN; Protocol Last Admin: 04/29/20 07:36 Dose: Not Given Documented by: Magnesium Hydroxide (Milk Of Magnesia) 30 ml PO Q4H PRN PRN Reason: Constipation Metoprolol Tartrate (Metoprolol) 25 mg PO Q8HR PRAVIN Last Admin: 04/29/20 07:37 Dose: Not Given Documented by: Ondansetron HCl (Zofran) 4 mg IV Q8H PRN PRN Reason: Nausea And Vomiting Last Admin: 04/25/20 05:25 Dose: 4 mg Documented by: Laboratory Last Values WBC 4.9 K/mm3 (4.5-11.0) 04/29/20 05:43 Hgb 7.4 gm/dl (11.8-15.2) L 04/29/20 05:43 Hct 24.1 % (35.5-45.6) L 04/29/20 05:43 MCV 78 fl (84-94) L 04/29/20 05:43 = Plt Count 51 K/mm3 (140-440) L 04/29/20 05:43 INR 2.12 (0.87-1.13) H 04/28/20 11:10 Creatinine 2.3 mg/dL (0.8-1.3) H 04/29/20 05:43 Albumin 2.5 g/dL (3.9-5) L 04/29/20 05:43 Hepatitis C Antibody Non-reactive (NonReactive) 04/12/20 20:23 Past History Past Medical History: arthritis, CAD (H/O [place]), COPD, diabetes, heart failure, hypertension, hyperlipidemia, stroke (X2), other (Crohn's disease,) Past Surgical History: PTCA Social history: smoking (Current daily smoker), alcohol abuse Family history: no significant family history Medications and Allergies Allergies Allergy/AdvReac Type Severity Reaction Status Date / Time Sulfa (Sulfonamide Allergy Rash Verified 07/30/18 17:44 Antibiotics) Home Medications Medication Instructions Recorded Confirmed Last Taken Type Gabapentin 300 mg PO BID 09/19/16 04/21/20 09/18/16 History 300 mg Metformin HCl [metFORMIN ER 500 mg PO BIDWM 03/28/17 04/21/20 Unknown History Gastric] AtorvaSTATin 10 mg PO QHS #30 tablet 12/21/17 04/21/20 Unknown Rx Ranolazine ER [Ranexa ER] 500 mg PO BID #60 tablet 12/21/17 04/21/20 Unknown Rx Aspirin 325 mg PO QDAY #30 tablet 01/12/18 04/21/20 04/21/20 Rx Diphenoxylate/Atropine [Lomotil] 1 tab PO Q8H PRN 01/15/18 04/21/20 Unknown History Insulin Lispro [HumaLOG VIAL] See Protocol SQ ACHS 01/15/18 04/21/20 04/21/20 18:46 History Promethazine [Phenergan] 25 mg PO Q4H PRN 01/15/18 04/21/20 Unknown History Albuterol Mdi (or & Nicu Only) 2 puff IH Q4HR PRN #1 inhalation 12/21/18 04/21/20 04/21/20 18:46 Rx [ProAir HFA Inhaler] Furosemide [Lasix TAB] 20 mg PO QDAY #30 tablet 02/03/20 04/21/20 Unknown Rx Metoprolol Xl [Metoprolol 25 mg PO DAILY #60 tablet 02/03/20 04/21/20 04/21/20 18:45 Rx SUCCINATE ER TAB] levETIRAcetam [Keppra TAB] 500 mg PO BID #120 tablet 02/03/20 04/21/20 Unknown Rx levoFLOXacin [Levaquin TAB] 500 mg PO QDAY #5 tablet 02/03/20 04/21/20 Unknown Rx Active Meds: Active Medications Acetaminophen (Tylenol) 650 mg PO Q6H PRN PRN Reason: Pain MILD(1-3)/Fever >100.5/MANCILLA Last Admin: 04/23/20 23:13 Dose: 650 mg Documented by: Lipase/Protease/Amylase (Gabrielle Dr 10,500 Unit) 1 each FEEDTUBE PRN PRN PRN Reason: For Clogged Feeding Tube Arformoterol Tartrate (Brovana Nebu) 15 mcg IH Q12HRT [facility] Last Admin: 04/28/20 21:35 Dose: 15 mcg Documented by: Budesonide (Pulmicort) 0.5 mg IH Q12HRT PRAVIN Last Admin: 04/28/20 21:36 Dose: 0.5 mg Documented by: Norepinephrine (Levophed Drip 4 Mg/Ns 250 Ml) 4 mg in 250 mls @ 7.5 mls/hr IV TITR [facility]; Protocol Last Titration: 04/27/20 18:15 Dose: 0 mcg/min, 0 mls/hr Documented by: Piperacillin Sod/Tazobactam Sod (Zosyn/Ns 3.375gm/50ml) 3.375 gm in 50 mls @ 100 mls/hr IV Q8H [facility]; Protocol Last Admin: 04/29/20 04:51 Dose: 100 mls/hr Documented by: Insulin Glargine (Lantus) 10 units SUB-Q QHS [facility] Last Admin: 04/28/20 22:04 Dose: Not Given Documented by: Insulin Human Lispro (Humalog) 0 unit SUB-Q ACHS [facility]; Protocol Last Admin: 04/29/20 07:36 Dose: Not Given Documented by: Magnesium Hydroxide (Milk Of Magnesia) 30 ml PO Q4H PRN PRN Reason: Constipation Metoprolol Tartrate (Metoprolol) 25 mg PO Q8HR [facility] Last Admin: 04/29/20 07:37 Dose: Not Given Documented by: Ondansetron HCl (Zofran) 4 mg IV Q8H PRN PRN Reason: Nausea And Vomiting Last Admin: 04/25/20 05:25 Dose: 4 mg Documented by: Simple Syrup (Simple Syrup) 15 ml FEEDTUBE PRN PRN PRN Reason: Hypoglycemia Simple Syrup (Simple Syrup) 30 ml FEEDTUBE PRN PRN PRN Reason: Hypoglycemia Sodium Bicarbonate (Sodium Bicarbonate) 325 mg FEEDTUBE PRN PRN PRN Reason: For Clogged Feeding Tube Sodium Chloride (Sodium Chloride Flush Syringe 10 Ml) 10 ml IV BID [facility] Last Admin: 04/28/20 22:05 Dose: 10 ml Documented by: Sodium Chloride (Sodium Chloride Flush Syringe 10 Ml) 10 ml IV PRN PRN PRN Reason: LINE FLUSH Exam - Constitutional Vitals: Last Vital Signs Temp 98.0 F 04/29/20 08:24 Pulse 109 H 04/29/20 08:24 Resp 18 04/29/20 08:24 BP 87/50 04/29/20 08:24 Pulse Ox 100 04/29/20 08:24 Results - Labs lab Results: Laboratory Results - last 24 hr 04/28/20 04/28/20 04/28/20 11:10 11:10 11:10 WBC RBC Hgb Hct MCV MCH MCHC RDW Plt Count Lymph % (Auto) [place] % (Auto) Eos % (Auto) Baso % (Auto) Lymph # (Auto) [place] # (Auto) Eos # (Auto) Baso # (Auto) Seg Neutrophils % Seg Neutrophils # PT 23.9 H INR 2.12 H Sodium Potassium Chloride Carbon Dioxide Anion Gap BUN Creatinine Estimated GFR BUN/Creatinine Ratio Glucose POC Glucose Calcium Total Bilirubin AST ALT Alkaline Phosphatase Lactate Dehydrogenase 210 H NT-Pro-B Natriuret Pep 21302 H Total Protein 5.5 L Albumin Albumin/Globulin Ratio 04/28/20 04/28/20 04/28/20 12:16 16:29 21:32 WBC RBC Hgb Hct MCV MCH MCHC RDW Plt Count Lymph % (Auto) [place] % (Auto) Eos % (Auto) Baso % (Auto) Lymph # (Auto) [place] # (Auto) Eos # (Auto) Baso # (Auto) Seg Neutrophils % Seg Neutrophils # PT INR Sodium Potassium Chloride Carbon Dioxide Anion Gap BUN Creatinine Estimated GFR BUN/Creatinine Ratio Glucose POC Glucose 97 87 75 Calcium Total Bilirubin AST ALT Alkaline Phosphatase Lactate Dehydrogenase NT-Pro-B Natriuret Pep Total Protein Albumin Albumin/Globulin Ratio 04/29/20 04/29/20 04/29/20 05:43 05:43 05:47 WBC 4.9 RBC 3.10 L Hgb 7.4 L Hct 24.1 L MCV 78 L MCH 24 L MCHC 31 L RDW 22.5 H Plt Count 51 L Lymph % (Auto) 10.3 L [place] % (Auto) 3.4 Eos % (Auto) 0.7 Baso % (Auto) 1.0 Lymph # (Auto) 0.5 L [place] # (Auto) 0.2 Eos # (Auto) 0.0 Baso # (Auto) 0.0 Seg Neutrophils % 84.6 H Seg Neutrophils # 4.1 PT INR Sodium 155 H Potassium 4.0 Chloride 119.8 H Carbon Dioxide 17 L Anion Gap 22 BUN 65 H Creatinine 2.3 H Estimated GFR 28 BUN/Creatinine Ratio 28 Glucose 83 POC Glucose 75 Calcium 8.2 L Total Bilirubin 1.30 H AST 18 ALT 27 Alkaline Phosphatase 94 Lactate Dehydrogenase NT-Pro-B Natriuret Pep Total Protein 5.5 L Albumin 2.5 L Albumin/Globulin Ratio 0.8 04/29/20 07:28 WBC RBC Hgb Hct MCV MCH MCHC RDW Plt Count Lymph % (Auto) [place] % (Auto) Eos % (Auto) Baso % (Auto) Lymph # (Auto) [place] # (Auto) Eos # (Auto) Baso # (Auto) Seg Neutrophils % Seg Neutrophils # PT INR Sodium Potassium Chloride Carbon Dioxide Anion Gap BUN Creatinine Estimated GFR BUN/Creatinine Ratio Glucose POC Glucose 73 Calcium Total Bilirubin AST ALT Alkaline Phosphatase Lactate Dehydrogenase NT-Pro-B Natriuret Pep Total Protein Albumin Albumin/Globulin Ratio
--- NOTE | 2020-04-29 10:37 | Progress Note ---
Assessment and Plan 1. Acute kidney injury: Vasomotor KIRT superimposed on CKD. CT abdomen negative for hydro. Monitor renal function. Creatinine level is increasing. Avoid nephrotoxic agents. Meds dosage based on GFR. 2. FEN: Hypernatremia, patient was started on water flushes, monitor. Will consider Thiazide if the BP is better. Hypokalemia, improved, monitor. Anion-gap metabolic acidosis, monitor. Monitor lytes and volume status. 3. Acute hypoxic respiratory failure: Possibly secondary to the CHF and underlying pneumonia. COVID-19 test negative. 4. Hypotension: Off pressors. Monitor BP. 5. Chronic CHF: Monitor daily weight, intake and outputs. Followed by Cards. 6. Colitis: Monitor. Seen by GI. 7. Anemia, POA: Monitor. 8. Elevated Transaminases: Improved. 9. DM type 2. Subjective: Patient was not examined today. However the examination findings from other providers noted. The current and previous medical records are reviewed in detail as are laboratory and imaging data reviewed when appropriate. Medications being given are also reviewed. In addition the case has been discussed with the attending hospitalist and the nurse when needed. New renal recommendations as above. Examination: Subjective Date of service: 04/29/20 Principal diagnosis: CHF Objective - Vital Signs Vital signs: Vital Signs - 12hr 04/29/20 04/29/20 04/29/20 00:01 00:18 00:19 Temperature 97.8 F Pulse Rate 72 108 H Respiratory 18 22 Rate Blood Pressure 101/59 O2 Sat by Pulse 100 96 Oximetry 04/29/20 04/29/20 04/29/20 05:48 05:56 08:24 Temperature 97.3 F L 98.0 F Pulse Rate 109 H 106 H 109 H Respiratory 18 18 Rate Blood Pressure 96/61 87/50 O2 Sat by Pulse 99 100 Oximetry - Lab 04/29/20 05:43 04/29/20 05:43 Most recent lab results ABG pH 7.505 pH Units (7.350-7.450) H 04/17/20 10:30 ABG pCO2 25.2 mm Hg 04/17/20 10:30 ABG pO2 157.9 mm Hg (80.0-90.0) H 04/17/20 10:30 ABG HCO3 19.4 mmol/L (20.0-26.0) L 04/17/20 10:30 ABG O2 Saturation 99.1 % (95.0-99.0) H 04/17/20 10:30 Calcium 8.2 mg/dL (8.4-10.2) L 04/29/20 05:43 Phosphorus 5.60 mg/dL (2.5-4.5) H 04/10/20 22:50 Magnesium 2.40 mg/dL (1.7-2.3) H 04/10/20 22:50 Urine Creatinine 35.3 mg/dL (0.1-20.0) H 04/11/20 Unknown Urine Sodium 92 mmol/L 04/11/20 Unknown Medications & Allergies - Medications Allergies/Adverse Reactions: Allergies Sulfa (Sulfonamide Antibiotics) Allergy (Verified 07/30/18 17:44) Rash Home Medications: Home Medications Medication Instructions Recorded Confirmed Last Taken Type Gabapentin 300 mg PO BID 09/19/16 04/21/20 09/18/16 History 300 mg Metformin HCl [metFORMIN ER 500 mg PO BIDWM 03/28/17 04/21/20 Unknown History Gastric] AtorvaSTATin 10 mg PO QHS #30 tablet 12/21/17 04/21/20 Unknown Rx Ranolazine ER [Ranexa ER] 500 mg PO BID #60 tablet 12/21/17 04/21/20 Unknown Rx Aspirin 325 mg PO QDAY #30 tablet 01/12/18 04/21/20 04/21/20 Rx Diphenoxylate/Atropine [Lomotil] 1 tab PO Q8H PRN 01/15/18 04/21/20 Unknown History Insulin Lispro [HumaLOG VIAL] See Protocol SQ ACHS 01/15/18 04/21/20 04/21/20 18:46 History Promethazine [Phenergan] 25 mg PO Q4H PRN 01/15/18 04/21/20 Unknown History Albuterol Mdi (or & Nicu Only) 2 puff IH Q4HR PRN #1 inhalation 12/21/18 04/21/20 04/21/20 18:46 Rx [ProAir HFA Inhaler] Furosemide [Lasix TAB] 20 mg PO QDAY #30 tablet 02/03/20 04/21/20 Unknown Rx Metoprolol Xl [Metoprolol 25 mg PO DAILY #60 tablet 02/03/20 04/21/20 04/21/20 18:45 Rx SUCCINATE ER TAB] levETIRAcetam [Keppra TAB] 500 mg PO BID #120 tablet 02/03/20 04/21/20 Unknown Rx levoFLOXacin [Levaquin TAB] 500 mg PO QDAY #5 tablet 02/03/20 04/21/20 Unknown Rx Active Medications: Generic Name Dose Route Start Last Admin Trade Name Freq PRN Reason Stop Dose Admin Acetaminophen 650 mg 04/11/20 01:26 04/23/20 23:13 Tylenol PO 650 mg Q6H PRN Administration Pain MILD(1-3)/Fever >100.5/MANCILLA Lipase/Protease/Amylase 1 each 04/11/20 14:22 Pancreazaddison Saenz 10,500 Unit FEEDTUBE PRN PRN For Clogged Feeding Tube Arformoterol Tartrate 15 mcg 04/20/20 20:00 04/28/20 21:35 Brovana Nebu IH 15 mcg Q12HRT PRAVIN Administration Budesonide 0.5 mg 04/20/20 20:00 04/28/20 21:36 Pulmicort IH 0.5 mg Q12HRT PRAVIN Administration Norepinephrine 4 mg in 250 mls @ 7.5 mls/hr 04/25/20 17:00 04/27/20 18:15 Levophed Drip 4 Mg/Ns 250 Ml IV 0 mcg/min TITR PRAVIN 0 mls/hr Titration Protocol 2 MCG/MIN Piperacillin Sod/Tazobactam Sod 3.375 gm in 50 mls @ 100 mls/hr 04/26/20 03:00 04/29/20 10:31 Zosyn/Ns 3.375gm/50ml IV 100 mls/hr Q8H PRAVIN Administration Protocol Insulin Glargine 10 units 04/16/20 22:00 04/28/20 22:04 Lantus SUB-Q Not Given QHS PRAVIN Insulin Human Lispro 0 unit 04/16/20 16:30 04/29/20 07:36 Humalog SUB-Q Not Given ACHS [facility] Protocol Magnesium Hydroxide 30 ml 04/11/20 01:26 Milk Of Magnesia PO Q4H PRN Constipation Metoprolol Tartrate 25 mg 04/25/20 14:00 04/29/20 07:37 Metoprolol PO Not Given Q8HR PRAVIN Ondansetron HCl 4 mg 04/25/20 04:53 04/25/20 05:25 Zofran IV 4 mg Q8H PRN Administration Nausea And Vomiting Simple Syrup 15 ml 04/11/20 14:22 Simple Syrup FEEDTUBE PRN PRN Hypoglycemia Simple Syrup 30 ml 04/11/20 14:22 Simple Syrup FEEDTUBE PRN PRN Hypoglycemia Sodium Bicarbonate 325 mg 04/11/20 14:22 Sodium Bicarbonate FEEDTUBE PRN PRN For Clogged Feeding Tube Sodium Chloride 10 ml 04/11/20 10:00 04/29/20 10:31 Sodium Chloride Flush Syringe 10 Ml IV 10 ml BID PRAVIN Administration Sodium Chloride 10 ml 04/11/20 01:26 Sodium Chloride Flush Syringe 10 Ml IV PRN PRN LINE FLUSH
--- NOTE | 2020-04-29 11:43 | Progress Note ---
Assessment and Plan - Patient Problems (1) Acute and chronic respiratory failure Current Visit: Yes Status: Acute (2) Acute exacerbation of CHF (congestive heart failure) Current Visit: Yes Status: Acute (3) Coronary artery disease Current Visit: Yes Status: Acute Subjective Date of service: 04/29/20 Principal diagnosis: CHF Interval history: SLEEPING Objective Vital Signs Temp Pulse Pulse Resp Resp BP Pulse Ox 04/29/20 08:24 98.0 F 109 H 18 87/50 100 04/29/20 05:56 97.3 F L 106 H 18 96/61 99 04/29/20 05:48 109 H 04/29/20 00:19 108 H 04/29/20 00:18 22 96 04/29/20 00:01 97.8 F 72 18 101/59 100 04/28/20 22:04 106 H 92/58 04/28/20 21:40 97 04/28/20 21:38 99 H 20 04/28/20 20:17 98.2 F 106 H 18 92/58 96 04/28/20 18:14 121 H 04/28/20 17:57 57 L 22 86/57 93 04/28/20 16:20 98.9 F 102 H 82/55 99 04/28/20 12:00 60 - Physical Examination General: No Apparent Distress, Cachectic HEENT: Positive: PERRL Neck: Positive: trachea midline, JVD/HJR Cardiac: Positive: Irregularly Regular Lungs: Positive: Rhonchi Neuro: Positive: Grossly Intact, Weakness Abdomen: Positive: Soft Skin: Positive: Clear Extremities: Absent: edema (TRACE) - Labs and Meds Cardiac Enzymes 04/28/20 04/29/20 Range/Units 11:10 05:43 AST 18 (5-40) units/L Lactate Dehydrogenase 210 H (91-180) units/L Coagulation 04/28/20 Range/Units 11:10 PT 23.9 H (12.2-14.9) Sec. INR 2.12 H (0.87-1.13) CBC 04/29/20 Range/Units 05:43 WBC 4.9 (4.5-11.0) K/mm3 RBC 3.10 L (3.65-5.03) M/mm3 Hgb 7.4 L (11.8-15.2) gm/dl Hct 24.1 L (35.5-45.6) % Plt Count 51 L (140-440) K/mm3 Lymph # (Auto) 0.5 L (1.2-5.4) K/mm3 [place] # (Auto) 0.2 (0.0-0.8) K/mm3 Eos # (Auto) 0.0 (0.0-0.4) K/mm3 Baso # (Auto) 0.0 (0.0-0.1) K/mm3 Comprehensive Metabolic Panel 04/28/20 04/29/20 Range/Units 11:10 05:43 Sodium 155 H (137-145) mmol/L Potassium 4.0 (3.6-5.0) mmol/L Chloride 119.8 H (98-107) mmol/L Carbon Dioxide 17 L (22-30) mmol/L BUN 65 H (9-20) mg/dL Creatinine 2.3 H (0.8-1.3) mg/dL Glucose 83 (75-100) mg/dL Calcium 8.2 L (8.4-10.2) mg/dL AST 18 (5-40) units/L ALT 27 (7-56) units/L Alkaline Phosphatase 94 (35-129) units/L Total Protein 5.5 L 5.5 L (6.3-8.2) g/dL Albumin 2.5 L (3.9-5) g/dL
[2020-04-29 12:20] LABS: ABG Base Excess -5.7 mmol/L (-2.0-3.0); ABG HCO3 18.7 mmol/L (20.0-26.0); ABG Methemoglobin 0.4 % (0.0-1.5); ABG Oxygen Saturation 97.8 % (95.0-99.0); ABG PCO2 31.8 mm Hg; ABG PH 7.387 pH Units (7.350-7.450); ABG PO2 102.9 mm Hg (80.0-90.0)
--- NOTE | 2020-04-29 13:35 | Progress Note ---
Assessment and Plan Assessment and plan: ---Acute respiratory failure Current Visit: Yes Status: Acute Plan to address problem: Continue oxygen supplementation --Acute on chronic systolic CHF (congestive heart failure) Current Visit: Yes Status: Acute Plan to address problem: Holding Lasix due to KIRT Will monitor daily weight, inputs and outputs. Monitor renal function closely Cardiology on board --KIRT on CKD Current Visit: Yes Status: Acute Plan to address problem: Had KIRT 2/2 vasomotor nephropathy Lasix given due to worsening pulm edema but Cr bumped. Hold lasix --Colitis Current Visit: Yes Status: Acute Plan to address problem: Resolved GI recommendations appreciated --Left sided pleural effusion Current Visit: No Status: Acute Plan to address problem: Lasix held due to worsening renal function Will get US thoracentesis when IR <1.5. Pulmonology consulted. --Arrhythmias-atrial fibrillation versus nonsustained ventricular tachycardia Current Visit: Yes Status: Acute Plan to address problem: Initially started on amiodarone but discontinued due to elevated LFTs Now on metoprolol every 6 and rate is currently controlled. Holding apixaban due to thrombocytopenia Cardiology recommendations appreciated --Diabetes mellitus type 2 in nonobese Current Visit: No Status: Acute Plan to address problem: Lantus and sliding scale insulin. --Hyperkalemia and metabolic acidosis Current Visit: Yes Status: Acute Plan to address problem: Resolved --T12 compression fracture Current Visit: No Status: Likely chronic Plan to address problem: CT abdomen showed acute appearing T12 compression fracture 04/14. MRI thoracic without contrast ordered to further evaluate. 04/15. Patient is agitated and unable to get an MRI. 04/16. Awaiting MRI without contrast thoracic. Plan to use sedatives today. Informed RN. If positive for acute fracture, patient will need to be transferred for neurosurgery evaluation. 04/17. MRI thoracic and lumbar showed acute T12 compression fracture. Discussed case with [place] [facility] front office supervisor who advised no acute intervention is necessary at this time-advised TLSO brace when patient is sitting or ambulatory. He will need follow-up with Dr. Dalton Jack, Dr. Alan Henson, Dr. Tyson Clark [contact number [phone]] after discharge. ---Elevated LFTs Current Visit: Yes Status: Acute Plan to address problem: Improving US abdomen shows no acute pathology ---Infrarenal aortic aneurysm Current Visit: No Status: Acute Plan to address problem: 3.8 cm in diameter Needs to follow-up with vascular surgery at discharge for monitoring -Shock Current Visit: No Status: Acute Plan to address problem: Improved VQ scan to rule out PE - negative -- Hypernatremia Current Visit: No Status: Acute Plan to address problem: Due to poor intake. NG tube placement Start water via NG tube 400cc q8 hours Trend sodium -- DVT prophylaxis Current Visit: No Status: Acute Plan to address problem: Hold heparin for now --Full code status Current Visit: No Status: Acute Disposition-home with hospice as per patient son when stable 04/11. Patient seen and examined at bedside this morning. Patient is on BiPAP. Patient is eager to go home. Otherwise denies any chest pain or palpitations. Patient CT showed possible compression fracture of T12, it is unknown if this is new. We will get MRI without contrast of the thoracic and lumbar to further evaluate. If patient actually has an acute compression fracture, he will need to have a neurosurgery evaluation so will need to be transferred to another facility for this. Otherwise, patient continue to monitor patient's respiratory status while in the IMCU. Patient reportedly failed a swallow evaluation and will need to have an NG tube placement. Tried to call son on number provided in the chart and left a message. Awaiting callback. Labs reviewed-patient has elevated inflammatory [id number], LDH. COVID-19 test has been ordered. Started patient on steroids. Ordered stat BMP, ABG, D-dimer, proBNP, ferritin, LDH. 04/12. COVID -19 test is negative. His breathing has improved so was placed on nasal cannula. Cardiology adjusted meds today. He failed swallow evaluation yesterday. He requests for food. Will reattempt swallow evaluation. Speech therapy consult. 04/13. Overnight, he developed VT and was started on amiodarone. HR better this AM. Cardiology will review medications. Patient seen and examined at bedside this AM. He requests for food. He failed a repeat speech evaluation and will need barium swallow. May need PEG placement if he fails. NG tube in place. Vitals reviewed 04/14. Heart rate improved. Remains n.p.o. with NG tube feeds. Video swallow evaluation shows mild abnormal study. Speech therapist to see patient. Patient has not been able to have an MRI of the back due to agitation. He had a CT during the admission that showed possible compression fracture of T12 but this h as not been fully evaluated due to patient's ongoing conditions. Labs reviewed- renal function is worse. Discontinue Lasix. 04/15. Has been started on a diet and is tolerating. He pulled out his NG tube last night. Okay to leave NG tube for now. Plan to get an MRI performed today with sedative to evaluate T12 fracture. Patient denies any back pain. Renal function slightly improved today after Lasix was discontinued. Continue IV hydration. Nephrology recommendations appreciated 04/16. He feels better today. MRI could not be done yesterday. Hopefully patient can have an MRI done today. Creatinine 3.1 today. Patient will need placement but will need to have evaluation of possible T12 fracture prior to discharge 04/17. MRI thoracic and lumbar showed acute T12 compression fracture. Discussed case with [place] [facility] front office supervisor who advised no acute intervention is necessary at this time-advised TLSO brace when patient is sitting or ambulatory. He will need follow-up with Dr. Dalton Jack, Dr. Alan Henson, Dr. Tyson Clark [contact number [phone]] after discharge. 04/18. Await Nephrology recs for d/c plans 04/19/2020. Patient reportedly with choking/coughing with swallowing. We will change to n.p.o. status right now. Speech reevaluation. Check chest x-ray to rule out aspiration pneumonia. Await nephrology recommendations for discharge. Creatinine slowly improving. CT of abdomen negative for hydronephrosis. BUN increasing. Therefore, we will check Hemoccult of stool to rule out GI bleed. Hemoglobin has been stable. 04/20/2020. Repeat chest x-ray reveals worsening bibasilar opacities. Pulmonary consulted. Doppler of left upper extremity for swelling. PT evaluation recommends subacute rehab 04/21/2020. Await pulmonary consultation for worsening bibasilar opacities. Doppler of left upper extremity pending. PT evaluation recommends subacute rehab. Creatinine has improved to near baseline of 1.8. Nephrology following 04/22/2020. Pulmonary sees no need for antibiotics or further evaluation of bibasilar opacities with CT scan. Continue current COPD treatment. Beta blockers increase for A. fib per cardiology. Await Doppler left upper extremity. PT evaluation recommends subacute rehab but case management reports patient's son Haseeb [phone]. Haseeb wants patient to return home with [facility]. 04/23/2020. Continue beta-blockers for atrial fibrillation per cardiology. Await left upper extremity Doppler ultrasound for left upper extremity swelling. PT evaluation recommends subacute rehab but case management reports patient's son Haseeb [phone]. Haseeb wants patient to return home with [facility]. Creatinine appears to be improved to baseline. Anticipate discharge in the next 1 to 2 days. 04/24/2020. Continue beta-blockers for atrial fibrillation per cardiology. Await left upper extremity Doppler ultrasound for left upper extremity swelling. Haseeb (son [phone]) wants patient to return home with [facility]. Creatinine appears to be improved to baseline. Patient now with hypernatremia. ?Tenuous IV fluid hydration--defer to nephrology. 04/25. Blood pressure low this morning but subsequently improved with slow bolus. Sodium today is 150. Patient is dehydrated and is asking for water to drink. I have discussed with RN to ensure patient gets enough water to help with dehydration. His heart rate is controlled and cardiology has adjusted the medication today due to slight hypotension.-Metoprolol now 25 every 8 hours. He is alert and oriented x3 this morning and is able to make needs known. Check BMP every 8 hours for now. Nephrology following 04/26. Transferred to the ICU due to persisted hypotension. WBC trending up. Started on antibiotics. Aetiology of shock could be sepsis. Other differentials - cardiogenic vs obstructive (has been on eliquis 2.5mg BID so not likely. His ddimer is elevated and he cannot get contrast - will get VQ scan. Critical care to see. Blood culture ordered. Repeat labs in AM 04/27. On levophed. Leukocytosis better. Check procalcitonin. On antibiotics. Rest of labs shows anemia and thrombocytopenia. Will dc eliquis. Lasix given but Cr bump noted. Holding lasix for now. Repeat chest xray to evaluate infiltrate and effusion 04/28. BP stable so he was transferred to telemetry. He failed swallow evaluation. Place an NG tube and start free water via NG tube. DC D5w. He will need GI evaluation for PEG tube placement. Lasix was given for worsening infiltrate and effusion but Cr bumped. Awaiting repeat chest xray to evaluate for infiltrate. Ordered INR and BNP. May need US thoracentesis for left pleural effusion. Will get pulm consult. Labs reviewed- still has hypernatremia - nephrology following. heme consult for thrombocytopenia. GI consulted for PEG tube placement 04/29. NG tube not yet placed. Sodium 155. Needs to be started on water via NG tube. No IVF as he has systolic CHF. Consultants notes reviewed. History Interval history: Patient seen and examined at bedside. NG tube could not be placed yesterday Failed swallow eval. Hospitalist Physical - Physical exam Narrative exam: VITAL SIGNS: Reviewed. GENERAL: Awale but drowsy HEAD: No signs of head trauma. EYES: Pupils are equal. Extraocular motions intact. EARS: Hearing grossly intact. MOUTH: Oropharynx is normal. NECK: No adenopathy, no JVD. CHEST: Rales more at the bases CARDIAC: Regular rate and rhythm. S1 and S2, without murmurs, gallops, or rubs. VASCULAR: No Edema. Peripheral pulses normal and equal in all extremities. ABDOMEN: Soft, non tender and non distended. No rebound or guarding, and no masses palpated. Bowel Sounds normal. MUSCULOSKELETAL: Good range of motion of all major joints. Extremities without clubbing, cyanosis or edema. NEUROLOGIC EXAM: Drowsy PSYCHIATRIC: Stable mood SKIN: No obvious lesions - Constitutional Vitals: Temp Pulse Resp BP Pulse Ox 98.0 F 103 H 18 87/50 100 04/29/20 08:24 04/29/20 12:37 04/29/20 08:24 04/29/20 08:24 04/29/20 08:24 HEART Score - HEART Score Troponin: Troponin T 0.081 ng/mL (0.00-0.029) H 04/10/20 20:04 Results - Labs CBC & Chem 7: 04/29/20 05:43 04/29/20 05:43 Labs: Laboratory Last Values WBC 4.9 K/mm3 (4.5-11.0) 04/29/20 05:43 RBC 3.10 M/mm3 (3.65-5.03) L 04/29/20 05:43 Hgb 7.4 gm/dl (11.8-15.2) L 04/29/20 05:43 Hct 24.1 % (35.5-45.6) L 04/29/20 05:43 MCV 78 fl (84-94) L 04/29/20 05:43 MCH 24 pg (28-32) L 04/29/20 05:43 MCHC 31 % (32-34) L 04/29/20 05:43 RDW 22.5 % (13.2-15.2) H 04/29/20 05:43 Plt Count 51 K/mm3 (140-440) L 04/29/20 05:43 Lymph % (Auto) 10.3 % (13.4-35.0) L 04/29/20 05:43 [place] % (Auto) 3.4 % (0.0-7.3) 04/29/20 05:43 Eos % (Auto) 0.7 % (0.0-4.3) 04/29/20 05:43 Baso % (Auto) 1.0 % (0.0-1.8) 04/29/20 05:43 Lymph # (Auto) 0.5 K/mm3 (1.2-5.4) L 04/29/20 05:43 [place] # (Auto) 0.2 K/mm3 (0.0-0.8) 04/29/20 05:43 Eos # (Auto) 0.0 K/mm3 (0.0-0.4) 04/29/20 05:43 Baso # (Auto) 0.0 K/mm3 (0.0-0.1) 04/29/20 05:43 Add Manual Diff Complete 04/26/20 10:13 Total Counted 100 04/26/20 10:13 Seg Neutrophils % 84.6 % (40.0-70.0) H 04/29/20 05:43 Seg Neuts % (Manual) 97.0 % (40.0-70.0) H 04/26/20 10:13 Band Neutrophils % 0 % 04/26/20 10:13 Lymphocytes % (Manual) 1.0 % (13.4-35.0) L 04/26/20 10:13 Reactive Lymphs % (Man) 0 % 04/26/20 10:13 Monocytes % (Manual) 1.0 % (0.0-7.3) 04/26/20 10:13 Eosinophils % (Manual) 0 % (0.0-4.3) 04/26/20 10:13 Basophils % (Manual) 1.0 % (0.0-1.8) 04/26/20 10:13 Metamyelocytes % 0 % 04/26/20 10:13 Myelocytes % 0 % 04/26/20 10:13 Promyelocytes % 0 % 04/26/20 10:13 Blast Cells % 0 % 04/26/20 10:13 Nucleated RBC % Not Reportable 04/26/20 10:13 Seg Neutrophils # 4.1 K/mm3 (1.8-7.7) 04/29/20 05:43 Seg Neutrophils # Man 14.7 K/mm3 (1.8-7.7) H 04/26/20 10:13 Band Neutrophils # 0.0 K/mm3 04/26/20 10:13 Lymphocytes # (Manual) 0.2 K/mm3 (1.2-5.4) L 04/26/20 10:13 Abs React Lymphs (Man) 0.0 K/mm3 04/26/20 10:13 Monocytes # (Manual) 0.2 K/mm3 (0.0-0.8) 04/26/20 10:13 Eosinophils # (Manual) 0.0 K/mm3 (0.0-0.4) 04/26/20 10:13 Basophils # (Manual) 0.2 K/mm3 (0.0-0.1) H 04/26/20 10:13 Metamyelocytes # 0.0 K/mm3 04/26/20 10:13 Myelocytes # 0.0 K/mm3 04/26/20 10:13 Promyelocytes # 0.0 K/mm3 04/26/20 10:13 Blast Cells # 0.0 K/mm3 04/26/20 10:13 WBC Morphology Not Reportable 04/26/20 10:13 Hypersegmented Neuts Not Reportable 04/26/20 10:13 Hyposegmented Neuts Not Reportable 04/26/20 10:13 Hypogranular Neuts Not Reportable 04/26/20 10:13 Smudge Cells Not Reportable 04/26/20 10:13 Toxic Granulation Not Reportable 04/26/20 10:13 Toxic Vacuolation Not Reportable 04/26/20 10:13 Dohle Bodies Not Reportable 04/26/20 10:13 Pelger-Huet Anomaly Not Reportable 04/26/20 10:13 Barby Rods Not Reportable 04/26/20 10:13 Platelet Estimate Consistent w auto 04/26/20 10:13 Clumped Platelets Not Reportable 04/26/20 10:13 Plt Clumps, EDTA Not Reportable 04/26/20 10:13 Large Platelets Not Reportable 04/26/20 10:13 Giant Platelets Not Reportable 04/26/20 10:13 Platelet Satelliting Not Reportable 04/26/20 10:13 Plt Morphology Comment Not Reportable 04/26/20 10:13 RBC Morphology Not Reportable 04/26/20 10:13 Dimorphic RBCs Not Reportable 04/26/20 10:13 Polychromasia Not Reportable 04/26/20 10:13 Hypochromasia 1+ 04/26/20 10:13 Poikilocytosis Not Reportable 04/26/20 10:13 Anisocytosis 1+ 04/26/20 10:13 Microcytosis Not Reportable 04/26/20 10:13 Macrocytosis Not Reportable 04/26/20 10:13 Spherocytes Not Reportable 04/26/20 10:13 Pappenheimer Bodies Not Reportable 04/26/20 10:13 Sickle Cells Not Reportable 04/26/20 10:13 Target Cells Not Reportable 04/26/20 10:13 Tear Drop Cells Not Reportable 04/26/20 10:13 Ovalocytes Not Reportable 04/26/20 10:13 Helmet Cells Not Reportable 04/26/20 10:13 [place] Bodies Not Reportable 04/26/20 10:13 [place] Rings Not Reportable 04/26/20 10:13 [place]cia Cells Few 04/26/20 10:13 Bite Cells Not Reportable 04/26/20 10:13 Crenated Cell Not Reportable 04/26/20 10:13 Elliptocytes 1+ 04/26/20 10:13 Acanthocytes (Spur) Not Reportable 04/26/20 10:13 Rouleaux Not Reportable 04/26/20 10:13 Hemoglobin C Crystals Not Reportable 04/26/20 10:13 Schistocytes Few 04/26/20 10:13 Malaria parasites Not Reportable 04/26/20 10:13 [place] Bodies Not Reportable 04/26/20 10:13 Hem Pathologist Commnt No 04/26/20 10:13 PT 23.9 Sec. (12.2-14.9) H 04/28/20 11:10 INR 2.12 (0.87-1.13) H 04/28/20 11:10 D-Dimer 1259.67 ng/mlDDU (0-234) H 04/25/20 16:09 Heparin Anti-Xa Level 0.35 U.I./ml (0.3-0.7) 04/13/20 05:06 Heparin Anti-Xa, Unfract Negative (Negative) 04/17/20 22:45 ABG pH 7.387 pH Units (7.350-7.450) 04/29/20 11:50 ABG pCO2 31.8 mm Hg 04/29/20 11:50 ABG pO2 102.9 mm Hg (80.0-90.0) H 04/29/20 11:50 ABG HCO3 18.7 mmol/L (20.0-26.0) L 04/29/20 11:50 ABG O2 Saturation 97.8 % (95.0-99.0) 04/29/20 11:50 ABG O2 Content 10.2 (0.0-44) 04/29/20 11:50 ABG Base Excess -5.7 mmol/L (-2.0-3.0) L 04/29/20 11:50 ABG Hemoglobin 7.5 gm/dl (14.0-18.0) L 04/29/20 11:50 ABG Carboxyhemoglobin 2.2 % (0.0-5.0) 04/29/20 11:50 ABG Methemoglobin 0.4 % (0.0-1.5) 04/29/20 11:50 Oxyhemoglobin 95.3 % (95.0-99.0) 04/29/20 11:50 FiO2 32 % 04/29/20 11:50 Sodium 155 mmol/L (137-145) H 04/29/20 05:43 Potassium 4.0 mmol/L (3.6-5.0) 04/29/20 05:43 Chloride 119.8 mmol/L (98-107) H 04/29/20 05:43 Carbon Dioxide 17 mmol/L (22-30) L 04/29/20 05:43 Anion Gap 22 mmol/L 04/29/20 05:43 BUN 65 mg/dL (9-20) H 04/29/20 05:43 Creatinine 2.3 mg/dL (0.8-1.3) H 04/29/20 05:43 Estimated GFR 28 ml/min 04/29/20 05:43 BUN/Creatinine Ratio 28 % 04/29/20 05:43 Glucose 83 mg/dL (75-100) 04/29/20 05:43 POC Glucose 112 mg/dL (70-105) H 04/29/20 10:59 Lactic Acid 3.00 mmol/L (0.7-2.0) H* 04/12/20 06:22 Calcium 8.2 mg/dL (8.4-10.2) L 04/29/20 05:43 Phosphorus 5.60 mg/dL (2.5-4.5) H 04/10/20 22:50 Magnesium 2.40 mg/dL (1.7-2.3) H 04/10/20 22:50 Ferritin 135.1 ng/mL (30.0-300.0) 04/11/20 15:11 Total Bilirubin 1.30 mg/dL (0.1-1.2) H 04/29/20 05:43 Direct Bilirubin 0.6 mg/dL (0-0.2) H 04/15/20 04:56 Indirect Bilirubin 0.3 mg/dL 04/15/20 04:56 AST 18 units/L (5-40) 04/29/20 05:43 ALT 27 units/L (7-56) 04/29/20 05:43 Alkaline Phosphatase 94 units/L (35-129) 04/29/20 05:43 Lactate Dehydrogenase 210 units/L (91-180) H 04/28/20 11:10 Troponin T 0.081 ng/mL (0.00-0.029) H 04/10/20 20:04 C-Reactive Protein 5.60 mg/dL (0.00-1.30) H 04/10/20 20:51 NT-Pro-B Natriuret Pep 38846 pg/mL (0-900) H 04/28/20 11:10 Total Protein 5.5 g/dL (6.3-8.2) L 04/29/20 05:43 Albumin 2.5 g/dL (3.9-5) L 04/29/20 05:43 Albumin/Globulin Ratio 0.8 % 04/29/20 05:43 Triglycerides 113 mg/dL (2-149) 04/10/20 20:04 Cholesterol 178 mg/dL (50-199) 04/10/20 20:04 LDL Cholesterol Direct 123 mg/dL (50-130) 04/10/20 20:04 HDL Cholesterol 41 mg/dL (40-59) 04/10/20 20:04 Cholesterol/HDL Ratio 4.34 % 04/10/20 20:04 Serotonin Release Assay See scanned result 04/17/20 22:45 Procalcitonin 0.38 ng/mL (<0.15) 04/27/20 09:30 TSH 3.640 mlU/mL (0.270-4.200) 04/13/20 10:06 Urine Color Yellow (Yellow) 04/11/20 Unknown Urine Turbidity Clear (Clear) 04/11/20 Unknown Urine pH 5.0 (5.0-7.0) 04/11/20 Unknown Ur Specific [place] 1.009 (1.003-1.030) 04/11/20 Unknown Urine Protein <15 mg/dl mg/dL (Negative) 04/11/20 Unknown Urine Glucose (UA) Neg mg/dL (Negative) 04/11/20 Unknown Urine Ketones Neg mg/dL (Negative) 04/11/20 Unknown Urine Blood Neg (Negative) 04/11/20 Unknown Urine Nitrite Neg (Negative) 04/11/20 Unknown Urine Bilirubin Neg (Negative) 04/11/20 Unknown Urine Urobilinogen < 2.0 mg/dL (<2.0) 04/11/20 Unknown Ur Leukocyte Esterase Neg (Negative) 04/11/20 Unknown Urine WBC (Auto) 1.0 /HPF (0.0-6.0) 04/11/20 Unknown Urine RBC (Auto) 2.0 /HPF (0.0-6.0) 04/11/20 Unknown U Epithel Cells (Auto) < 1.0 /HPF (0-13.0) 04/11/20 Unknown Hyaline Casts 3 /LPF 04/11/20 Unknown Urine Mucus Few /HPF 04/11/20 Unknown Urine Eosinophils None seen (None Seen) 04/11/20 Unknown Urine Creatinine 35.3 mg/dL (0.1-20.0) H 04/11/20 Unknown Urine Sodium 92 mmol/L 04/11/20 Unknown Heparin-induced Plt Ab Negative (Negative) 04/17/20 22:45 UF Heparin High Dose 0 % Release 04/17/20 22:45 CHERYL UFH Low Dose 0.1 0 % Release 04/17/20 22:45 CHERYL UFH Low Dose 0.5 0 % Release 04/17/20 22:45 Coronavirus (PCR) Negative (Negative) 04/11/20 Unknown Hepatitis A IgM Ab Non-reactive (NonReactive) 04/12/20 20: Hep Bs Antigen Non-reactive (Negative) 04/12/20 20: Hep B Core IgM Ab Non-reactive (NonReactive) 04/12/20 20:23 Hepatitis C Antibody Non-reactive (NonReactive) 04/12/20 20:23 Microbiology: Microbiology 04/26/20 18:21 Peripheral/Venous Blood Culture - Preliminary NO GROWTH AFTER 48 HOURS 04/26/20 18:21 Peripheral/Venous Blood Culture - Preliminary NO GROWTH AFTER 48 HOURS Gay/IV: Voiding Method Condom Catheter IV Catheter Type [Right Peripheral IV External Jugular] IV Catheter Type [Left Peripheral IV External Jugular] IV Catheter Type [Right Upper PICC Line arm] IV Catheter Type [Left Wrist] Peripheral IV IV Catheter Type [Right INT / Saline Lock Forearm] IV Catheter Type [Right Wrist] INT / Saline Lock Active Medications - Current Medications Current Medications: Generic Name Dose Route Start Last Admin Trade Name Kyreeq PRN Reason Stop Dose Admin Acetaminophen 650 mg 04/11/20 01:26 04/23/20 23:13 Tylenol PO 650 mg Q6H PRN Administration Pain MILD(1-3)/Fever >100.5/MANCILLA Lipase/Protease/Amylase 1 each 04/11/20 14:22 [place]miley Saenz 10,500 Unit FEEDTUBE PRN PRN For Clogged Feeding Tube Arformoterol Tartrate 15 mcg 04/20/20 20:00 04/28/20 21:35 Brovana Nebu IH 15 mcg Q12HRT PRAVIN Administration Budesonide 0.5 mg 04/20/20 20:00 04/28/20 21:36 Pulmicort IH 0.5 mg Q12HRT PRAVIN Administration Norepinephrine 4 mg in 250 mls @ 7.5 mls/hr 04/25/20 17:00 04/27/20 18:15 Levophed Drip 4 Mg/Ns 250 Ml IV 0 mcg/min TITR PRAVIN 0 mls/hr Titration Protocol 2 MCG/MIN Piperacillin Sod/Tazobactam Sod 3.375 gm in 50 mls @ 100 mls/hr 04/26/20 03:00 04/29/20 10:31 Zosyn/Ns 3.375gm/50ml IV 100 mls/hr Q8H PRAVIN Administration Protocol Insulin Glargine 10 units 04/16/20 22:00 04/28/20 22:04 Lantus SUB-Q Not Given QHS PRAVIN Insulin Human Lispro 0 unit 04/16/20 16:30 04/29/20 07:36 Humalog SUB-Q Not Given ACHS [facility] Protocol Magnesium Hydroxide 30 ml 04/11/20 01:26 Milk Of Magnesia PO Q4H PRN Constipation Metoprolol Tartrate 25 mg 04/25/20 14:00 04/29/20 07:37 Metoprolol PO Not Given Q8HR [facility] Ondansetron HCl 4 mg 04/25/20 04:53 04/25/20 05:25 Zofran IV 4 mg Q8H PRN Administration Nausea And Vomiting Simple Syrup 15 ml 04/11/20 14:22 Simple Syrup FEEDTUBE PRN PRN Hypoglycemia Simple Syrup 30 ml 04/11/20 14:22 Simple Syrup FEEDTUBE PRN PRN Hypoglycemia Sodium Bicarbonate 325 mg 04/11/20 14:22 Sodium Bicarbonate FEEDTUBE PRN PRN For Clogged Feeding Tube Sodium Chloride 10 ml 04/11/20 10:00 04/29/20 10:31 Sodium Chloride Flush Syringe 10 Ml IV 10 ml BID PRAVIN Administration Sodium Chloride 10 ml 04/11/20 01:26 Sodium Chloride Flush Syringe 10 Ml IV PRN PRN LINE FLUSH Nutrition/Malnutrition Assess - Dietary Evaluation Nutrition/Malnutrition Findings: Nutrition Notes Start: 04/11/20 13:41 Freq: Status: Active Protocol: Document 04/28/20 10:09 CW (Rec: 04/28/20 10:23 CW [email or web address]) Co-Sign 04/28/20 10:09 LM Nutrition Notes Initial or Follow up Reassessment Current Diagnosis Acute Kidney Injury,CKD(stage I-IV),COPD,Coronary Artery Disease,Diabetes,Hypertension, Heart Failure Other Pertinent Diagnosis LA, Crohn's disease, seizure, colitis Current Diet NPO Labs/Tests BUN 65 Cr 2.1 Pertinent Medications Reviewed Height 5 ft 7 in Weight 64.4 kg [place] Body Weight (kg) 67.27 BMI 22.2 Subjective/Other Information SPL reported aspiration risk on 04/27. Pt has been NPO since 04/26. Consult for TF. Percent of energy/protein needs met: 0%/0% Burn Absent Trauma Absent Difficulty In Swallowing,Chewing Current % PO Negligible Minimum of two criteria No Energy Intake (non-severe) <75% Estimated Energy Requirement >7 days #1 Nutrition Diagnosis Inadequate oral intake Diagnosis Progress(for reassessment Continues documentation) Is patient on ventilator? No Is Patient Ambulatory and/or Out of Bed No REE-([facility]-confined to bed) 4970.172 Calculation Used for Recommendations [facility][1] Additional Notes Protein Needs: 52-78 g (0.8-1. 2 g/kg) Fluid Needs: 1 mL/kcal Nutrition Intervention Change Diet Order: TF Nutrition Support: [place] 1.2 at 35 mls/hr Flush 250ml q4h for hypernatremia Flush 150ml q4h once resolved Kcal 1,512 Protein (gm) 68 Fluid (mL) 610 Goal #1 Meet at least 75% of energy an protein needs via TF Anticipated Discharge Needs: Unable to determine at this time Follow-Up By: 05/01/20 Additional Comments FU for TF start and tolerance
[2020-04-29] MEDS: BUDESONIDE 0.5 MG/2 ML NEBU IH SCH ×2 (18:18→21:54)
[2020-04-29] MEDS: ARFORMOTEROL 15 MCG/2 ML NEBU IH SCH ×2 (18:18→21:54)
[2020-04-29] MEDS: INSULIN GLARGINE 100 UNITS/ML SUB-Q SCH (22:17)
[2020-04-30] MEDS: PIPERACILLIN/TAZOBACTAM 3.375 3.375 GM/50 ML BAG IV SCH ×3 (03:11→18:46)
[2020-04-30] MEDS: METOPROLOL TARTRATE 25 MG TAB PO SCH (06:39)
[2020-04-30] MEDS: INSULIN LISPRO 100 UNIT/ML VIAL 3 mL SUB-Q SCH ×4 (07:30→21:22)
[2020-04-30] MEDS: BUDESONIDE 0.5 MG/2 ML NEBU IH SCH ×2 (09:13→20:42)
[2020-04-30] MEDS: ARFORMOTEROL 15 MCG/2 ML NEBU IH SCH ×2 (09:14→20:42)
[2020-04-30] MEDS ORDERED: ATROPINE 0.1% (1 MG/10 ML) CARDIAC SYRINGE ONE (10:19)
[2020-04-30] MEDS ORDERED: ATROPINE 1 MG/ML VIAL IV ONE (10:19)
[2020-04-30 10:24] LABS: Basophils # (Auto) 0.1 K/mm3 (0.0-0.1); Eosinophils % (Auto) 0.5 % (0.0-4.3); Monocytes # (Auto) 0.1 K/mm3 (0.0-0.8); Monocytes % (Auto) 3.1 % (0.0-7.3)
[2020-04-30 10:42] LABS: Hematocrit 27.5 % (35.5-45.6); Hemoglobin 8.3 gm/dl (11.8-15.2); Mean Corpuscular Volume 79 fl (84-94); Red Blood Count 3.51 M/mm3 (3.65-5.03)
[2020-04-30 10:43] LABS: Basophils % (Auto) 1.1 % (0.0-1.8); Lymphocytes # (Auto) 0.6 K/mm3 (1.2-5.4); Lymphocytes % (Auto) 12.2 % (13.4-35.0); Mean Corpuscular HGB Conc 30 % (32-34); Platelet Count 51 K/mm3 (140-440); Red Cell Distribution Width 22.8 % (13.2-15.2)
--- NOTE | 2020-04-30 11:11 | Progress Note ---
Assessment and Plan Assessment and plan: ---Acute respiratory failure Current Visit: Yes Status: Acute Plan to address problem: Continue oxygen supplementation --Acute on chronic systolic CHF (congestive heart failure) Current Visit: Yes Status: Acute Plan to address problem: Holding Lasix due to KIRT Will monitor daily weight, inputs and outputs. Monitor renal function closely Cardiology on board --KIRT on CKD Current Visit: Yes Status: Acute Plan to address problem: Had KIRT 2/2 vasomotor nephropathy Lasix given due to worsening pulm edema but Cr bumped. Hold lasix --Colitis Current Visit: Yes Status: Acute Plan to address problem: Resolved GI recommendations appreciated --Left sided pleural effusion Current Visit: No Status: Acute Plan to address problem: Lasix held due to worsening renal function Will get US thoracentesis when IR <1.5. Pulmonology consulted. --Arrhythmias Current Visit: Yes Status: Acute Plan to address problem: Initially started on amiodarone but discontinued due to elevated LFTs Noted to have pauses on telemetry. Metoprolol discontinued-awaiting cardiology recommendations at this time. Pacer placed at bedside Transfer patient to [facility] for now Holding apixaban due to thrombocytopenia Cardiology recommendations appreciated --Diabetes mellitus type 2 in nonobese Current Visit: No Status: Acute Plan to address problem: Lantus and sliding scale insulin. --Hyperkalemia and metabolic acidosis Current Visit: Yes Status: Acute Plan to address problem: Resolved --T12 compression fracture Current Visit: No Status: Likely chronic Plan to address problem: CT abdomen showed acute appearing T12 compression fracture 04/14. MRI thoracic without contrast ordered to further evaluate. 04/15. Patient is agitated and unable to get an MRI. 04/16. Awaiting MRI without contrast thoracic. Plan to use sedatives today. Informed RN. If positive for acute fracture, patient will need to be transferred for neurosurgery evaluation. 04/17. MRI thoracic and lumbar showed acute T12 compression fracture. Discussed case with [facility] neurosurgery commercial sales consultant who advised no acute intervention is necessary at this time-advised TLSO brace when patient is sitting or a mbulatory. He will need follow-up with Dr. Dalton Jack, Dr. Alan Henson, Dr. Tyson Clark [contact number [phone]] after discharge. ---Elevated LFTs Current Visit: Yes Status: Acute Plan to address problem: Improving US abdomen shows no acute pathology ---Infrarenal aortic aneurysm Current Visit: No Status: Acute Plan to address problem: 3.8 cm in diameter Needs to follow-up with vascular surgery at discharge for monitoring -Shock Current Visit: No Status: Acute Plan to address problem: Improved VQ scan to rule out PE - negative -- Hypernatremia Current Visit: No Status: Acute Plan to address problem: Due to poor intake. NG tube placement ordered. Patient continues to refuse NG tube placement. Needs PEG placement. GI consulted Start water via NG tube 400cc q8 hours Trend sodium -- DVT prophylaxis Current Visit: No Status: Acute Plan to address problem: Hold heparin for now --Full code status Current Visit: No Status: Acute Disposition-home with hospice as per patient son when stable 04/11. Patient seen and examined at bedside this morning. Patient is on BiPAP. Patient is eager to go home. Otherwise denies any chest pain or palpitations. Patient CT showed possible compression fracture of T12, it is unknown if this is new. We will get MRI without contrast of the thoracic and lumbar to further evaluate. If patient actually has an acute compression fracture, he will need to have a neurosurgery evaluation so will need to be transferred to another facility for this. Otherwise, patient continue to monitor patient's respiratory status while in the IMCU. Patient reportedly failed a swallow evaluation and will need to have an NG tube placement. Tried to call son on number provided in the chart and left a message. Awaiting callback. Labs reviewed-patient has elevated inflammatory [id number], LDH. COVID-19 test has been ordered. Started patient on steroids. Ordered stat BMP, ABG, D-dimer, proBNP, ferritin, LDH. 04/12. COVID -19 test is negative. His breathing has improved so was placed on nasal cannula. Cardiology adjusted meds today. He failed swallow evaluation yesterday. He requests for food. Will reattempt swallow evaluation. Speech therapy consult. 04/13. Overnight, he developed VT and was started on amiodarone. HR better this AM. Cardiology will review medications. Patient seen and examined at bedside this AM. He requests for food. He failed a repeat speech evaluation and will need barium swallow. May need PEG placement if he fails. NG tube in place. Vitals reviewed 04/14. Heart rate improved. Remains n.p.o. with NG tube feeds. Video swallow evaluation shows mild abnormal study. Speech therapist to see patient. Patient has not been able to have an MRI of the back due to agitation. He had a CT during the admission that showed possible compression fracture of T12 but this has not been fully evaluated due to patient's ongoing conditions. Labs reviewed-renal function is worse. Discontinue Lasix. 04/15. Has been started on a diet and is tolerating. He pulled out his NG tube last night. Okay to leave NG tube for now. Plan to get an MRI performed today with sedative to evaluate T12 fracture. Patient denies any back pain. Renal function slightly improved today after Lasix was discontinued. Continue IV hydration. Nephrology recommendations appreciated 04/16. He feels better today. MRI could not be done yesterday. Hopefully patient can have an MRI done today. Creatinine 3.1 today. Patient will need placement but will need to have evaluation of possible T12 fracture prior to discharge 04/17. MRI thoracic and lumbar showed acute T12 compression fracture. Discussed case with [facility] neurosurgery commercial sales consultant who advised no acute intervention is necessary at this time-advised TLSO brace when patient is sitting or amb ulatory. He will need follow-up with Dr. Dalton Jack, Dr. Alan Henson, Dr. Tyson Clark [contact number [phone]] after discharge. 04/18. Await Nephrology recs for d/c plans 04/19/2020. Patient reportedly with choking/coughing with swallowing. We will change to n.p.o. status right now. Speech reevaluation. Check chest x-ray to rule out aspiration pneumonia. Await nephrology recommendations for discharge. Creatinine slowly improving. CT of abdomen negative for hydronephrosis. BUN increasing. Therefore, we will check Hemoccult of stool to rule out GI bleed. Hemoglobin has been stable. 04/20/2020. Repeat chest x-ray reveals worsening bibasilar opacities. Pulmonary consulted. Doppler of left upper extremity for swelling. PT evaluation recommends subacute rehab 04/21/2020. Await pulmonary consultation for worsening bibasilar opacities. Doppler of left upper extremity pending. PT evaluation recommends subacute rehab. Creatinine has improved to near baseline of 1.8. Nephrology following 04/22/2020. Pulmonary sees no need for antibiotics or further evaluation of bibasilar opacities with CT scan. Continue current COPD treatment. Beta blockers increase for A. fib per cardiology. Await Doppler left upper extremity. PT evaluation recommends subacute rehab but case management reports patient's son Haseeb [phone]. Haseeb wants patient to return home with [facility]. 04/23/2020. Continue beta-blockers for atrial fibrillation per cardiology. Await left upper extremity Doppler ultrasound for left upper extremity swelling. PT evaluation recommends subacute rehab but case management reports patient's son Haseeb [phone]. Haseeb wants patient to return home with [facility]. Creatinine appears to be improved to baseline. Anticipate discharge in the next 1 to 2 days. 04/24/2020. Continue beta-blockers for atrial fibrillation per cardiology. Await left upper extremity Doppler ultrasound for left upper extremity swelling. Haseeb (son [phone]) wants patient to return home with [facility]. Creatinine appears to be improved to baseline. Patient now with hypernatremia. ?Tenuous IV fluid hydration--defer to nephrology. 04/25. Blood pressure low this morning but subsequently improved with slow bolus. Sodium today is 150. Patient is dehydrated and is asking for water to drink. I have discussed with RN to ensure patient gets enough water to help with dehydration. His heart rate is controlled and cardiology has adjusted the medication today due to slight hypotension.-Metoprolol now 25 every 8 hours. He is alert and oriented x3 this morning and is able to make needs known. Check BMP every 8 hours for now. Nephrology following 04/26. Transferred to the ICU due to persisted hypotension. WBC trending up. Started on antibiotics. Aetiology of shock could be sepsis. Other differentials - cardiogenic vs obstructive (has been on eliquis 2.5mg BID so not likely. His ddimer is elevated and he cannot get contrast - will get VQ scan. Critical care to see. Blood culture ordered. Repeat labs in AM 04/27. On levophed. Leukocytosis better. Check procalcitonin. On antibiotics. Rest of labs shows anemia and thrombocytopenia. Will dc eliquis. Lasix given but Cr bump noted. Holding lasix for now. Repeat chest xray to evaluate infiltrate and effusion 04/28. BP stable so he was transferred to telemetry. He failed swallow evaluation. Place an NG tube and start free water via NG tube. DC D5w. He will need GI evaluation for PEG tube placement. Lasix was given for worsening infiltrate and effusion but Cr bumped. Awaiting repeat chest xray to evaluate for infiltrate. Ordered INR and BNP. May need US thoracentesis for left pleural effusion. Will get pulm consult. Labs reviewed- still has hypernatremia - nephrology following. heme consult for thrombocytopenia. GI consulted for PEG tube placement 04/29. NG tube not yet placed. Sodium 155. Needs to be started on water via NG tube. No IVF as he has systolic CHF. Consultants notes reviewed. 04/30. Patient continues to refuse NG tube. Patient noted to have bradycardia this a.m. down to 30s-40s. Also has pauses up to 2 seconds this AM. Metoprolol has been discontinued. Patient needed 1 dose of atropine with slight improvement. Pacer placed at bedside. Patient was transferred to the [facility] for close monitoring. Cardiology has been paged and awaiting callback. Discussed with RN. Plan for PEG tube placement as per GI. Maintain n.p.o. for now History Interval history: Patient seen and examined at bedside. Patient is having frequent pauses on telemetry. Cardiology paged awaiting response. Patient given atropine 1 mg one-time dose with slight improvement. Pacer placed at bedside. Transfer placed for [facility] Hospitalist Physical - Physical exam Narrative exam: VITAL SIGNS: Reviewed. GENERAL: More awake HEAD: No signs of head trauma. EYES: Pupils are equal. Extraocular motions intact. EARS: Hearing grossly intact. MOUTH: Oropharynx is normal. NECK: No adenopathy, no JVD. CHEST: Rales more at the bases. CARDIAC: Regular rate and rhythm. S1 and S2, without murmurs, gallops, or rubs. VASCULAR: No Edema. Peripheral pulses normal and equal in all extremities. ABDOMEN: Soft, non tender and non distended. No rebound or guarding, and no masses palpated. Bowel Sounds normal. MUSCULOSKELETAL: Good range of motion of all major joints. Extremities without clubbing, cyanosis or edema. NEUROLOGIC EXAM: More awake PSYCHIATRIC: Stable mood SKIN: No obvious lesions - Constitutional Vitals: Temp Pulse Resp BP Pulse Ox 97.8 F 70 18 91/53 91 04/30/20 04:49 04/30/20 10:31 04/30/20 09:14 04/30/20 10:31 04/30/20 10:31 HEART Score - HEART Score Troponin: Troponin T 0.081 ng/mL (0.00-0.029) H 04/10/20 20:04 Results - Labs CBC & Chem 7: 04/30/20 08:59 04/29/20 05:43 Labs: Laboratory Last Values WBC 4.7 K/mm3 (4.5-11.0) 04/30/20 08:59 RBC 3.51 M/mm3 (3.65-5.03) L 04/30/20 08:59 Hgb 8.3 gm/dl (11.8-15.2) L 04/30/20 08:59 Hct 27.5 % (35.5-45.6) L 04/30/20 08:59 MCV 79 fl (84-94) L 04/30/20 08:59 MCH 24 pg (28-32) L 04/30/20 08:59 MCHC 30 % (32-34) L 04/30/20 08:59 RDW 22.8 % (13.2-15.2) H 04/30/20 08:59 Plt Count 51 K/mm3 (140-440) L 04/30/20 08:59 Lymph % (Auto) 12.2 % (13.4-35.0) L 04/30/20 08:59 George % (Auto) 3.1 % (0.0-7.3) 04/30/20 08:59 Eos % (Auto) 0.5 % (0.0-4.3) 04/30/20 08:59 Baso % (Auto) 1.1 % (0.0-1.8) 04/30/20 08:59 Lymph # (Auto) 0.6 K/mm3 (1.2-5.4) L 04/30/20 08:59 George # (Auto) 0.1 K/mm3 (0.0-0.8) 04/30/20 08:59 Eos # (Auto) 0.0 K/mm3 (0.0-0.4) 04/30/20 08:59 Baso # (Auto) 0.1 K/mm3 (0.0-0.1) 04/30/20 08:59 Add Manual Diff Complete 04/26/20 10:13 Total Counted 100 04/26/20 10:13 Seg Neutrophils % 83.1 % (40.0-70.0) H 04/30/20 08:59 Seg Neuts % (Manual) 97.0 % (40.0-70.0) H 04/26/20 10:13 Band Neutrophils % 0 % 04/26/20 10:13 Lymphocytes % (Manual) 1.0 % (13.4-35.0) L 04/26/20 10:13 Reactive Lymphs % (Man) 0 % 04/26/20 10:13 Monocytes % (Manual) 1.0 % (0.0-7.3) 04/26/20 10:13 Eosinophils % (Manual) 0 % (0.0-4.3) 04/26/20 10:13 Basophils % (Manual) 1.0 % (0.0-1.8) 04/26/20 10:13 Metamyelocytes % 0 % 04/26/20 10:13 Myelocytes % 0 % 04/26/20 10:13 Promyelocytes % 0 % 04/26/20 10:13 Blast Cells % 0 % 04/26/20 10:13 Nucleated RBC % Not Reportable 04/26/20 10:13 Seg Neutrophils # 3.9 K/mm3 (1.8-7.7) 04/30/20 08:59 Seg Neutrophils # Man 14.7 K/mm3 (1.8-7.7) H 04/26/20 10:13 Band Neutrophils # 0.0 K/mm3 04/26/20 10:13 Lymphocytes # (Manual) 0.2 K/mm3 (1.2-5.4) L 04/26/20 10:13 Abs React Lymphs (Man) 0.0 K/mm3 04/26/20 10:13 Monocytes # (Manual) 0.2 K/mm3 (0.0-0.8) 04/26/20 10:13 Eosinophils # (Manual) 0.0 K/mm3 (0.0-0.4) 04/26/20 10:13 Basophils # (Manual) 0.2 K/mm3 (0.0-0.1) H 04/26/20 10:13 Metamyelocytes # 0.0 K/mm3 04/26/20 10:13 Myelocytes # 0.0 K/mm3 04/26/20 10:13 Promyelocytes # 0.0 K/mm3 04/26/20 10:13 Blast Cells # 0.0 K/mm3 04/26/20 10:13 WBC Morphology Not Reportable 04/26/20 10:13 Hypersegmented Neuts Not Reportable 04/26/20 10:13 Hyposegmented Neuts Not Reportable 04/26/20 10:13 Hypogranular Neuts Not Reportable 04/26/20 10:13 Smudge Cells Not Reportable 04/26/20 10:13 Toxic Granulation Not Reportable 04/26/20 10:13 Toxic Vacuolation Not Reportable 04/26/20 10:13 Dohle Bodies Not Reportable 04/26/20 10:13 Pelger-Huet Anomaly Not Reportable 04/26/20 10:13 Barby Rods Not Reportable 04/26/20 10:13 Platelet Estimate Consistent w auto 04/26/20 10:13 Clumped Platelets Not Reportable 04/26/20 10:13 Plt Clumps, EDTA Not Reportable 04/26/20 10:13 Large Platelets Not Reportable 04/26/20 10:13 Giant Platelets Not Reportable 04/26/20 10:13 Platelet Satelliting Not Reportable 04/26/20 10:13 Plt Morphology Comment Not Reportable 04/26/20 10:13 RBC Morphology Not Reportable 04/26/20 10:13 Dimorphic RBCs Not Reportable 04/26/20 10:13 Polychromasia Not Reportable 04/26/20 10:13 Hypochromasia 1+ 04/26/20 10:13 Poikilocytosis Not Reportable 04/26/20 10:13 Anisocytosis 1+ 04/26/20 10:13 Microcytosis Not Reportable 04/26/20 10:13 Macrocytosis Not Reportable 04/26/20 10:13 Spherocytes Not Reportable 04/26/20 10:13 Pappenheimer Bodies Not Reportable 04/26/20 10:13 Sickle Cells Not Reportable 04/26/20 10:13 Target Cells Not Reportable 04/26/20 10:13 Tear Drop Cells Not Reportable 04/26/20 10:13 Ovalocytes Not Reportable 04/26/20 10:13 Helmet Cells Not Reportable 04/26/20 10:13 Snell-Whitharral Bodies Not Reportable 04/26/20 10:13 [place] Rings Not Reportable 04/26/20 10:13 Marcia Cells Few 04/26/20 10:13 Bite Cells Not Reportable 04/26/20 10:13 Crenated Cell Not Reportable 04/26/20 10:13 Elliptocytes 1+ 04/26/20 10:13 Acanthocytes (Spur) Not Reportable 04/26/20 10:13 Rouleaux Not Reportable 04/26/20 10:13 Hemoglobin C Crystals Not Reportable 04/26/20 10:13 Schistocytes Few 04/26/20 10:13 Malaria parasites Not Reportable 04/26/20 10:13 Willie Bodies Not Reportable 04/26/20 10:13 Hem Pathologist Commnt No 04/26/20 10:13 PT 23.9 Sec. (12.2-14.9) H 04/28/20 11:10 INR 2.12 (0.87-1.13) H 04/28/20 11:10 D-Dimer 1259.67 ng/mlDDU (0-234) H 04/25/20 16:09 Heparin Anti-Xa Level 0.35 U.I./ml (0.3-0.7) 04/13/20 05:06 Heparin Anti-Xa, Unfract Negative (Negative) 04/17/20 22:45 ABG pH 7.387 pH Units (7.350-7.450) 04/29/20 11:50 ABG pCO2 31.8 mm Hg 04/29/20 11:50 ABG pO2 102.9 mm Hg (80.0-90.0) H 04/29/20 11:50 ABG HCO3 18.7 mmol/L (20.0-26.0) L 04/29/20 11:50 ABG O2 Saturation 97.8 % (95.0-99.0) 04/29/20 11:50 ABG O2 Content 10.2 (0.0-44) 04/29/20 11:50 ABG Base Excess -5.7 mmol/L (-2.0-3.0) L 04/29/20 11:50 ABG Hemoglobin 7.5 gm/dl (14.0-18.0) L 04/29/20 11:50 ABG Carboxyhemoglobin 2.2 % (0.0-5.0) 04/29/20 11:50 ABG Methemoglobin 0.4 % (0.0-1.5) 04/29/20 11:50 Oxyhemoglobin 95.3 % (95.0-99.0) 04/29/20 11:50 FiO2 32 % 04/29/20 11:50 Sodium 155 mmol/L (137-145) H 04/29/20 05:43 Potassium 4.0 mmol/L (3.6-5.0) 04/29/20 05:43 Chloride 119.8 mmol/L (98-107) H 04/29/20 05:43 Carbon Dioxide 17 mmol/L (22-30) L 04/29/20 05:43 Anion Gap 22 mmol/L 04/29/20 05:43 BUN 65 mg/dL (9-20) H 04/29/20 05:43 Creatinine 2.3 mg/dL (0.8-1.3) H 04/29/20 05:43 Estimated GFR 28 ml/min 04/29/20 05:43 BUN/Creatinine Ratio 28 % 04/29/20 05:43 Glucose 83 mg/dL (75-100) 04/29/20 05:43 POC Glucose 111 mg/dL (70-105) H 04/30/20 11:00 Lactic Acid 3.00 mmol/L (0.7-2.0) H* 04/12/20 06:22 Calcium 8.2 mg/dL (8.4-10.2) L 04/29/20 05:43 Phosphorus 5.60 mg/dL (2.5-4.5) H 04/10/20 22:50 Magnesium 2.40 mg/dL (1.7-2.3) H 04/10/20 22:50 Ferritin 135.1 ng/mL (30.0-300.0) 04/11/20 15:11 Total Bilirubin 1.30 mg/dL (0.1-1.2) H 04/29/20 05:43 Direct Bilirubin 0.6 mg/dL (0-0.2) H 04/15/20 04:56 Indirect Bilirubin 0.3 mg/dL 04/15/20 04:56 AST 18 units/L (5-40) 04/29/20 05:43 ALT 27 units/L (7-56) 04/29/20 05:43 Alkaline Phosphatase 94 units/L (35-129) 04/29/20 05:43 Lactate Dehydrogenase 210 units/L (91-180) H 04/28/20 11:10 Troponin T 0.081 ng/mL (0.00-0.029) H 04/10/20 20:04 C-Reactive Protein 5.60 mg/dL (0.00-1.30) H 04/10/20 20:51 NT-Pro-B Natriuret Pep 08895 pg/mL (0-900) H 04/28/20 11:10 Total Protein 5.5 g/dL (6.3-8.2) L 04/29/20 05:43 Albumin 2.5 g/dL (3.9-5) L 04/29/20 05:43 Albumin/Globulin Ratio 0.8 % 04/29/20 05:43 Triglycerides 113 mg/dL (2-149) 04/10/20 20:04 Cholesterol 178 mg/dL (50-199) 04/10/20 20:04 LDL Cholesterol Direct 123 mg/dL (50-130) 04/10/20 20:04 HDL Cholesterol 41 mg/dL (40-59) 04/10/20 20:04 Cholesterol/HDL Ratio 4.34 % 04/10/20 20:04 Serotonin Release Assay See scanned result 04/17/20 22:45 Procalcitonin 0.38 ng/mL (<0.15) 04/27/20 09:30 TSH 3.640 mlU/mL (0.270-4.200) 04/13/20 10:06 Urine Color Yellow (Yellow) 04/11/20 Unknown Urine Turbidity Clear (Clear) 04/11/20 Unknown Urine pH 5.0 (5.0-7.0) 04/11/20 Unknown Ur Specific [place] 1.009 (1.003-1.030) 04/11/20 Unknown Urine Protein <15 mg/dl mg/dL (Negative) 04/11/20 Unknown Urine Glucose (UA) Neg mg/dL (Negative) 04/11/20 Unknown Urine Ketones Neg mg/dL (Negative) 04/11/20 Unknown Urine Blood Neg (Negative) 04/11/20 Unknown Urine Nitrite Neg (Negative) 04/11/20 Unknown Urine Bilirubin Neg (Negative) 04/11/20 Unknown Urine Urobilinogen < 2.0 mg/dL (<2.0) 04/11/20 Unknown Ur Leukocyte Esterase Neg (Negative) 04/11/20 Unknown Urine WBC (Auto) 1.0 /HPF (0.0-6.0) 04/11/20 Unknown Urine RBC (Auto) 2.0 /HPF (0.0-6.0) 04/11/20 Unknown U Epithel Cells (Auto) < 1.0 /HPF (0-13.0) 04/11/20 Unknown Hyaline Casts 3 /LPF 04/11/20 Unknown Urine Mucus Few /HPF 04/11/20 Unknown Urine Eosinophils None seen (None Seen) 04/11/20 Unknown Urine Creatinine 35.3 mg/dL (0.1-20.0) H 04/11/20 Unknown Urine Sodium 92 mmol/L 04/11/20 Unknown Heparin-induced Plt Ab Negative (Negative) 04/17/20 22:45 UF Heparin High Dose 0 % Release 04/17/20 22:45 CHERYL UFH Low Dose 0.1 0 % Release 04/17/20 22:45 CHERYL UFH Low Dose 0.5 0 % Release 04/17/20 22:45 Coronavirus (PCR) Negative (Negative) 04/29/20 10:59 Hepatitis A IgM Ab Non-reactive (NonReactive) 04/12/20 20:23 Hep Bs Antigen Non-reactive (Negative) 04/12/20 20:23 Hep B Core IgM Ab Non-reactive (NonReactive) 04/12/20 20:23 Hepatitis C Antibody Non-reactive (NonReactive) 04/12/20 20:23 Microbiology: Microbiology 04/26/20 18:21 Peripheral/Venous Blood Culture - Preliminary NO GROWTH AFTER 72 HOURS 04/26/20 18:21 Peripheral/Venous Blood Culture - Preliminary NO GROWTH AFTER 72 HOURS Gay/IV: Voiding Method External Female Catheter IV Catheter Type [Right Peripheral IV External Jugular] IV Catheter Type [Left Peripheral IV External Jugular] IV Catheter Type [Right Upper PICC Line arm] IV Catheter Type [Left Wrist] Peripheral IV IV Catheter Type [Right INT / Saline Lock Forearm] IV Catheter Type [Right Wrist] INT / Saline Lock Active Medications - Current Medications Current Medications: Generic Name Dose Route Start Last Admin Trade Name Freq PRN Reason Stop Dose Admin Acetaminophen 650 mg 04/11/20 01:26 04/23/20 23:13 Tylenol PO 650 mg Q6H PRN Administration Pain MILD(1-3)/Fever >100.5/MANCILLA Lipase/Protease/Amylase 1 each 04/11/20 14:22 Pancremiley Saenz 10,500 Unit FEEDTUBE PRN PRN For Clogged Feeding Tube Arformoterol Tartrate 15 mcg 04/20/20 20:00 04/30/20 09:14 Brovana Nebu IH 15 mcg Q12HRT PRAVIN Administration Budesonide 0.5 mg 04/20/20 20:00 04/30/20 09:13 Pulmicort IH 0.5 mg Q12HRT PRAVIN Administration Norepinephrine 4 mg in 250 mls @ 7.5 mls/hr 04/25/20 17:00 04/27/20 18:15 Levophed Drip 4 Mg/Ns 250 Ml IV 0 mcg/min TITR PRAVIN 0 mls/hr Titration Protocol 2 MCG/MIN Piperacillin Sod/Tazobactam Sod 3.375 gm in 50 mls @ 100 mls/hr 04/26/20 03:00 04/30/20 03:11 Zosyn/Ns 3.375gm/50ml IV 100 mls/hr Q8H PRAVIN Administration Protocol Insulin Glargine 10 units 04/16/20 22:00 04/29/20 22:17 Lantus SUB-Q Not Given QHS [facility] Insulin Human Lispro 0 unit 04/16/20 16:30 04/30/20 07:30 Humalog SUB-Q Not Given ACHS [facility] Protocol Magnesium Hydroxide 30 ml 04/11/20 01:26 Milk Of Magnesia PO Q4H PRN Constipation Ondansetron HCl 4 mg 04/25/20 04:53 04/25/20 05:25 Zofran IV 4 mg Q8H PRN Administration Nausea And Vomiting Simple Syrup 15 ml 04/11/20 14:22 Simple Syrup FEEDTUBE PRN PRN Hypoglycemia Simple Syrup 30 ml 04/11/20 14:22 Simple Syrup FEEDTUBE PRN PRN Hypoglycemia Sodium Bicarbonate 325 mg 04/11/20 14:22 Sodium Bicarbonate FEEDTUBE PRN PRN For Clogged Feeding Tube Sodium Chloride 10 ml 04/11/20 10:00 04/30/20 10:36 Sodium Chloride Flush Syringe 10 Ml IV 10 ml BID PRAVIN Administration Sodium Chloride 10 ml 04/11/20 01:26 Sodium Chloride Flush Syringe 10 Ml IV PRN PRN LINE FLUSH Nutrition/Malnutrition Assess - Dietary Evaluation Nutrition/Malnutrition Findings: Nutrition Notes Start: 04/11/20 13:41 Freq: Status: Active Protocol: Document 04/28/20 10:09 CW (Rec: 04/28/20 10:23 CW [email or web address]) Co-Sign 04/28/20 10:09 LM Nutrition Notes Initial or Follow up Reassessment Current Diagnosis Acute Kidney Injury,CKD(stage I-IV),COPD,Coronary Artery Disease,Diabetes,Hypertension, Heart Failure Other Pertinent Diagnosis AR, Crohn's disease, seizure, colitis Current Diet NPO Labs/Tests BUN 65 Cr 2.1 Pertinent Medications Reviewed Height 5 ft 7 in Weight 64.4 kg [place] Body Weight (kg) 67.27 BMI 22.2 Subjective/Other Information SPL reported aspiration risk on 04/27. Pt has been NPO since 04/26. Consult for TF. Percent of energy/protein needs met: 0%/0% Burn Absent Trauma Absent Difficulty In Swallowing,Chewing Current % PO Negligible Minimum of two criteria No Energy Intake (non-severe) <75% Estimated Energy Requirement >7 days #1 Nutrition Diagnosis Inadequate oral intake Diagnosis Progress(for reassessment Continues documentation) Is patient on ventilator? No Is Patient Ambulatory and/or Out of Bed No REE-([facility]-confined to bed) [phone] Calculation Used for Recommendations [facility] Additional Notes Protein Needs: 52-78 g (0.8-1. 2 g/kg) Fluid Needs: 1 mL/kcal Nutrition Intervention Change Diet Order: TF Nutrition Support: Nepro 1.2 at 35 mls/hr Flush 250ml q4h for hypernatremia Flush 150ml q4h once resolved Kcal 1,512 Protein (gm) 68 Fluid (mL) 610 Goal #1 Meet at least 75% of energy an protein needs via TF Anticipated Discharge Needs: Unable to determine at this time Follow-Up By: 05/01/20 Additional Comments FU for TF start and tolerance
--- NOTE | 2020-04-30 11:35 | Progress Note ---
Assessment and Plan - Patient Problems (1) Acute and chronic respiratory failure Current Visit: Yes Status: Acute (2) Acute exacerbation of CHF (congestive heart failure) Current Visit: Yes Status: Acute (3) Coronary artery disease Current Visit: Yes Status: Acute Subjective Date of service: 04/30/20 Principal diagnosis: CHF Interval history: ALERT...NO SPECIFIC C/O Objective Vital Signs Temp Pulse Pulse Resp Resp BP Pulse Ox 04/30/20 10:31 70 91/53 91 04/30/20 09:14 71 18 100 04/30/20 04:49 97.8 F 17 98/53 04/29/20 23:37 96.5 F L 109 H 18 90/46 100 04/29/20 22:18 108 H 95/63 04/29/20 21:57 98 04/29/20 21:55 104 H 18 04/29/20 19:25 97.3 F L 108 H 17 95/63 100 04/29/20 16:55 98.2 F 107 H 20 85/52 95 04/29/20 12:57 98.2 F 108 H 18 100/57 97 04/29/20 12:37 103 H 04/29/20 11:50 97 H 24 - Physical Examination General: No Apparent Distress, Cachectic HEENT: Positive: PERRL Neck: Positive: trachea midline, JVD/HJR Cardiac: Positive: irregularly irregular Lungs: Positive: Rhonchi Neuro: Positive: Grossly Intact, Weakness Abdomen: Positive: Soft Skin: Positive: Clear Extremities: Absent: edema (TRACE) - Labs and Meds CBC 04/30/20 Range/Units 08:59 WBC 4.7 (4.5-11.0) K/mm3 RBC 3.51 L (3.65-5.03) M/mm3 Hgb 8.3 L (11.8-15.2) gm/dl Hct 27.5 L (35.5-45.6) % Plt Count 51 L (140-440) K/mm3 Lymph # (Auto) 0.6 L (1.2-5.4) K/mm3 [place] # (Auto) 0.1 (0.0-0.8) K/mm3 Eos # (Auto) 0.0 (0.0-0.4) K/mm3 Baso # (Auto) 0.1 (0.0-0.1) K/mm3
--- NOTE | 2020-04-30 11:36 | Progress Note ---
Assessment and Plan 1. Acute kidney injury: Vasomotor KIRT superimposed on CKD. CT abdomen negative for hydro. Monitor renal function. Creatinine level is increasing. Avoid nephrotoxic agents. Meds dosage based on GFR. 2. FEN: Hypernatremia, patient was started on water flushes, monitor. Will consider Thiazide if the BP is better. Hypokalemia, improved, monitor. Anion-gap metabolic acidosis, monitor. Monitor lytes and volume status. 3. Acute hypoxic respiratory failure: Possibly secondary to the CHF and underlying pneumonia. COVID-19 test negative. 4. Hypotension: Off pressors. Monitor BP. 5. Bradycardia: Followed by Cards. 6. Chronic CHF: Monitor daily weight, intake and outputs. Followed by Cards. 7. Anemia, POA: Monitor. 8. Elevated Transaminases: Improved. 9. DM type 2. Overall prognosis is poor. Subjective: Patient was not examined today. However the examination findings from other providers noted. The current and previous medical records are reviewed in detail as are laboratory and imaging data reviewed when appropriate. Medications being given are also reviewed. In addition the case has been discussed with the attending hospitalist and the nurse when needed. New renal recommendations as above. Patient noted to have bradycardia this a.m. down to 30s-40s. Also has pauses up to 2 seconds this AM. Metoprolol was discontinued and 1 dose of atropine with slight improvement. Pacer placed at bedside. Patient was transferred to the IMCU for close monitoring. Examination: Subjective Date of service: 04/30/20 Principal diagnosis: CHF Objective - Vital Signs Vital signs: Vital Signs - 12hr 04/29/20 04/30/20 04/30/20 23:37 04:49 09:14 Temperature 96.5 F L 97.8 F Pulse Rate 109 H Pulse Rate [ 71 Anterior Bilateral Throughout] Respiratory 18 17 Rate Respiratory 18 Rate [Anterior Bilateral Throughout] Blood Pressure 90/46 98/53 O2 Sat by Pulse 100 100 Oximetry 04/30/20 10:31 Temperature Pulse Rate 70 Pulse Rate [ Anterior Bilateral Throughout] Respiratory Rate Respiratory Rate [Anterior Bilateral Throughout] Blood Pressure 91/53 O2 Sat by Pulse 91 Oximetry - Lab 04/30/20 08:59 04/30/20 08:59 Most recent lab results ABG pH 7.387 pH Units (7.350-7.450) 04/29/20 11:50 ABG pCO2 31.8 mm Hg 04/29/20 11:50 ABG pO2 102.9 mm Hg (80.0-90.0) H 04/29/20 11:50 ABG HCO3 18.7 mmol/L (20.0-26.0) L 04/29/20 11:50 ABG O2 Saturation 97.8 % (95.0-99.0) 04/29/20 11:50 Calcium 8.2 mg/dL (8.4-10.2) L 04/29/20 05:43 Phosphorus 5.60 mg/dL (2.5-4.5) H 04/10/20 22:50 Magnesium 2.40 mg/dL (1.7-2.3) H 04/10/20 22:50 Urine Creatinine 35.3 mg/dL (0.1-20.0) H 04/11/20 Unknown Urine Sodium 92 mmol/L 04/11/20 Unknown Medications & Allergies - Medications Allergies/Adverse Reactions: Allergies Sulfa (Sulfonamide Antibiotics) Allergy (Verified 07/30/18 17:44) Rash Home Medications: Home Medications Medication Instructions Recorded Confirmed Last Taken Type Gabapentin 300 mg PO BID 09/19/16 04/21/20 09/18/16 History 300 mg Metformin HCl [metFORMIN ER 500 mg PO BIDWM 03/28/17 04/21/20 Unknown History Gastric] AtorvaSTATin 10 mg PO QHS #30 tablet 12/21/17 04/21/20 Unknown Rx Ranolazine ER [Ranexa ER] 500 mg PO BID #60 tablet 12/21/17 04/21/20 Unknown Rx Aspirin 325 mg PO QDAY #30 tablet 01/12/18 04/21/20 04/21/20 Rx Diphenoxylate/Atropine [Lomotil] 1 tab PO Q8H PRN 01/15/18 04/21/20 Unknown Hist ory Insulin Lispro [HumaLOG VIAL] See Protocol SQ ACHS 01/15/18 04/21/20 04/21/20 18:46 History Promethazine [Phenergan] 25 mg PO Q4H PRN 01/15/18 04/21/20 Unknown History Albuterol Mdi (or & Nicu Only) 2 puff IH Q4HR PRN #1 inhalation 12/21/18 04/21/20 04/21/20 18:46 Rx [ProAir HFA Inhaler] Furosemide [Lasix TAB] 20 mg PO QDAY #30 tablet 02/03/20 04/21/20 Unknown Rx Metoprolol Xl [Metoprolol 25 mg PO DAILY #60 tablet 02/03/20 04/21/20 04/21/20 18:45 Rx SUCCINATE ER TAB] levETIRAcetam [Keppra TAB] 500 mg PO BID #120 tablet 02/03/20 04/21/20 Unknown Rx levoFLOXacin [Levaquin TAB] 500 mg PO QDAY #5 tablet 02/03/20 04/21/20 Unknown Rx Active Medications: Generic Name Dose Route Start Last Admin Trade Name Freq PRN Reason Stop Dose Admin Acetaminophen 650 mg 04/11/20 01:26 04/23/20 23:13 Tylenol PO 650 mg Q6H PRN Administration Pain MILD(1-3)/Fever >100.5/MANCILLA Lipase/Protease/Amylase 1 each 04/11/20 14:22 Pancremiley Saenz 10,500 Unit FEEDTUBE PRN PRN For Clogged Feeding Tube Arformoterol Tartrate 15 mcg 04/20/20 20:00 04/30/20 09:14 Brovana Nebu IH 15 mcg Q12HRT PRAVIN Administration Budesonide 0.5 mg 04/20/20 20:00 04/30/20 09:13 Pulmicort IH 0.5 mg Q12HRT PRAVIN Administration Norepinephrine 4 mg in 250 mls @ 7.5 mls/hr 04/25/20 17:00 04/27/20 18:15 Levophed Drip 4 Mg/Ns 250 Ml IV 0 mcg/min TITR PRAVIN 0 mls/hr Titration Protocol 2 MCG/MIN Piperacillin Sod/Tazobactam Sod 3.375 gm in 50 mls @ 100 mls/hr 04/26/20 03:00 04/30/20 03:11 Zosyn/Ns 3.375gm/50ml IV 100 mls/hr Q8H PRAVIN Administration Protocol Insulin Glargine 10 units 04/16/20 22:00 04/29/20 22:17 Lantus SUB-Q Not Given QHS [facility] Insulin Human Lispro 0 unit 04/16/20 16:30 04/30/20 07:30 Humalog SUB-Q Not Given ACHS [facility] Protocol Magnesium Hydroxide 30 ml 04/11/20 01:26 Milk Of Magnesia PO Q4H PRN Constipation Ondansetron HCl 4 mg 04/25/20 04:53 04/25/20 05:25 Zofran IV 4 mg Q8H PRN Administration Nausea And Vomiting Simple Syrup 15 ml 04/11/20 14:22 Simple Syrup FEEDTUBE PRN PRN Hypoglycemia Simple Syrup 30 ml 04/11/20 14:22 Simple Syrup FEEDTUBE PRN PRN Hypoglycemia Sodium Bicarbonate 325 mg 04/11/20 14:22 Sodium Bicarbonate FEEDTUBE PRN PRN For Clogged Feeding Tube Sodium Chloride 10 ml 04/11/20 10:00 04/30/20 10:36 Sodium Chloride Flush Syringe 10 Ml IV 10 ml BID PRAVIN Administration Sodium Chloride 10 ml 04/11/20 01:26 Sodium Chloride Flush Syringe 10 Ml IV PRN PRN LINE FLUSH
[2020-04-30 11:52] LABS: Albumin 2.6 g/dL (3.9-5); Calcium 8.4 mg/dL (8.4-10.2)
[2020-04-30] MEDS: NORepinephrine/NS 4 MG-250 ML 4 MG/250 ML BAG IV SCH (12:17)
[2020-04-30] MEDS: DEXTROSE 5% IN WATER 1,000 ML IV SCH (17:20)
--- NOTE | 2020-04-30 17:43 | Gastroenterology Progress Note ---
Assessment and Plan GI: pt w/ multiple medical issues for peg placement - pt will require cardiac placement as well as undergo thoracenthesis and stable after before procedure - no changes from GI standpoint - EGD/PEG when stable and cleared - will follow Subjective Date of service: 04/30/20 Principal diagnosis: CHF Interval history: pt known to our service, asked to see for peg placement - events of the day noted, pt transferred to MICU for bradycardia and cardiac pause. No specific GI complaints Objective - Constitutional Vitals: Temp Pulse Resp BP Pulse Ox 97.8 F 73 14 105/62 100 04/30/20 04:49 04/30/20 13:30 04/30/20 13:30 04/30/20 13:30 04/30/20 13:30 General appearance: no acute distress - EENT Eyes: PERRL - Respiratory Respiratory: bilateral: CTA - Cardiovascular Rhythm: regular Heart Sounds: Present: S1 & S2 - Gastrointestinal General gastrointestinal: Present: soft, non-tender, non-distended - Labs CBC & Chem 7: 04/30/20 08:59 04/30/20 14:16 Labs: Laboratory Results - last 24 hr 04/29/20 04/30/20 04/30/20 21:17 07:43 08:59 WBC 4.7 RBC 3.51 L Hgb 8.3 L Hct 27.5 L MCV 79 L MCH 24 L MCHC 30 L RDW 22.8 H Plt Count 51 L Lymph % (Auto) 12.2 L [place] % (Auto) 3.1 Eos % (Auto) 0.5 Baso % (Auto) 1.1 Lymph # (Auto) 0.6 L [place] # (Auto) 0.1 Eos # (Auto) 0.0 Baso # (Auto) 0.1 Seg Neutrophils % 83.1 H Seg Neutrophils # 3.9 Sodium Potassium Chloride Carbon Dioxide Anion Gap BUN Creatinine Estimated GFR BUN/Creatinine Ratio Glucose POC Glucose 107 H 112 H Calcium Total Bilirubin AST ALT Alkaline Phosphatase Total Protein Albumin Albumin/Globulin Ratio 04/30/20 04/30/20 04/30/20 08:59 11:00 14:16 WBC RBC Hgb Hct MCV MCH MCHC RDW Plt Count Lymph % (Auto) [place] % (Auto) Eos % (Auto) Baso % (Auto) Lymph # (Auto) [place] # (Auto) Eos # (Auto) Baso # (Auto) Seg Neutrophils % Seg Neutrophils # Sodium 154 H 158 H Potassium 4.5 4.6 Chloride 118.9 H 122.9 H Carbon Dioxide 15 L 14 L Anion Gap 25 26 BUN 67 H 68 H Creatinine 2.4 H 2.5 H Estimated GFR 27 25 BUN/Creatinine Ratio 28 27 Glucose 119 H 139 H POC Glucose 111 H Calcium 8.4 8.0 L Total Bilirubin 1.60 H AST 26 ALT 29 Alkaline Phosphatase 100 Total Protein 6.1 L Albumin 2.6 L Albumin/Globulin Ratio 0.7 04/30/20 16:59 WBC RBC Hgb Hct MCV MCH MCHC RDW Plt Count Lymph % (Auto) [place] % (Auto) Eos % (Auto) Baso % (Auto) Lymph # (Auto) [place] # (Auto) Eos # (Auto) Baso # (Auto) Seg Neutrophils % Seg Neutrophils # Sodium Potassium Chloride Carbon Dioxide Anion Gap BUN Creatinine Estimated GFR BUN/Creatinine Ratio Glucose POC Glucose 126 H Calcium Total Bilirubin AST ALT Alkaline Phosphatase Total Protein Albumin Albumin/Globulin Ratio
[2020-04-30] MEDS: INSULIN GLARGINE 100 UNITS/ML SUB-Q SCH (22:00)
[2020-05-01] MEDS: PIPERACILLIN/TAZOBACTAM 3.375 3.375 GM/50 ML BAG IV SCH ×2 (03:42→10:05)
[2020-05-01] MEDS: NORepinephrine/NS 4 MG-250 ML 4 MG/250 ML BAG IV SCH ×2 (04:16→19:56)
[2020-05-01 07:45] LABS: Basophils % (Auto) 0.9 % (0.0-1.8); Eosinophils # (Auto) 0.1 K/mm3 (0.0-0.4); Eosinophils % (Auto) 1.4 % (0.0-4.3); Hematocrit 23.6 % (35.5-45.6); Hemoglobin 7.2 gm/dl (11.8-15.2); Lymphocytes # (Auto) 0.5 K/mm3 (1.2-5.4); Lymphocytes % (Auto) 8.4 % (13.4-35.0); Mean Corpuscular HGB Conc 31 % (32-34); Mean Corpuscular Volume 78 fl (84-94); Monocytes # (Auto) 0.2 K/mm3 (0.0-0.8); Red Blood Count 3.02 M/mm3 (3.65-5.03)
[2020-05-01 07:56] LABS: INR 1.43 (0.87-1.13)
[2020-05-01 08:04] LABS: Albumin 2.5 g/dL (3.9-5); Calcium 8.3 mg/dL (8.4-10.2)
[2020-05-01] MEDS: BUDESONIDE 0.5 MG/2 ML NEBU IH SCH ×2 (08:23→20:30)
[2020-05-01] MEDS: ARFORMOTEROL 15 MCG/2 ML NEBU IH SCH ×2 (08:23→20:30)
[2020-05-01 08:51] LABS: Platelet Count 48 K/mm3 (140-440)
--- NOTE | 2020-05-01 09:15 | Progress Note ---
Assessment and Plan 1. Acute kidney injury: Vasomotor KIRT superimposed on CKD. CT abdomen negative for hydro. Monitor renal function. Creatinine leveled off. Avoid nephrotoxic agents. Meds dosage based on GFR. 2. FEN: Hypernatremia, currently on IV D5W, monitor. Will consider Thiazide if the BP is better. Hypokalemia, improved, monitor. Anion-gap metabolic acidosis, monitor. Monitor lytes and volume status. 3. Acute hypoxic respiratory failure: Possibly secondary to the CHF and underlying pneumonia. COVID-19 test negative. 4. Hypotension: On Levophed. Monitor BP. 5. Bradycardia: Followed by Cards. 6. Chronic CHF: Monitor daily weight, intake and outputs. Followed by Cards. 7. Anemia, POA: Monitor. 8. Elevated Transaminases: Improved. 9. DM type 2. Overall prognosis is slim. Subjective: Patient was seen and examined at the bedside. Examination: General appearance: well-developed, appears stated age HEENT: ATNC, pupils equal Neck: trachea midline Respiratory: ctab Heart: regular, S1S2, no murmur Gastrointestinal: soft, normoactive bowel sounds, not tender Integumentary: no rash, warm and dry Neurologic: alert, moving extremities, confused Ext: no edema Subjective Date of service: 05/01/20 Principal diagnosis: CHF Objective - Vital Signs Vital signs: Vital Signs - 12hr 04/30/20 04/30/20 04/30/20 21:16 21:30 21:45 Temperature Pulse Rate 80 61 69 Pulse Rate [ Anterior Bilateral Throughout] Pulse Rate [ From Monitor] Respiratory 20 23 16 Rate Respiratory Rate [Anterior Bilateral Throughout] Blood Pressure 123/60 123/60 116/54 O2 Sat by Pulse 93 100 98 Oximetry 04/30/20 04/30/20 04/30/20 22:00 22:16 22:30 Temperature Pulse Rate 81 80 80 Pulse Rate [ Anterior Bilateral Throughout] Pulse Rate [ From Monitor] Respiratory 29 H 24 30 H Rate Respiratory Rate [Anterior Bilateral Throughout] Blood Pressure 113/57 107/52 107/52 O2 Sat by Pulse 100 100 99 Oximetry 04/30/20 04/30/20 04/30/20 22:46 23:00 23:06 Temperature Pulse Rate 83 73 67 Pulse Rate [ Anterior Bilateral Throughout] Pulse Rate [ From Monitor] Respiratory 32 H 22 18 Rate Respiratory Rate [Anterior Bilateral Throughout] Blood Pressure 97/61 100/55 100/55 O2 Sat by Pulse 89 94 94 Oximetry 04/30/20 04/30/20 04/30/20 23:16 23:30 23:46 Temperature Pulse Rate 71 66 57 L Pulse Rate [ Anterior Bilateral Throughout] Pulse Rate [ From Monitor] Respiratory 20 25 H 22 Rate Respiratory Rate [Anterior Bilateral Throughout] Blood Pressure 107/46 97/46 97/46 O2 Sat by Pulse 96 Oximetry 04/30/20 05/01/20 05/01/20 23:54 00:00 00:16 Temperature 97.8 F Pulse Rate 58 L 55 L Pulse Rate [ Anterior Bilateral Throughout] Pulse Rate [ 66 From Monitor] Respiratory 25 H 19 Rate Respiratory Rate [Anterior Bilateral Throughout] Blood Pressure 97/46 97/46 O2 Sat by Pulse 81 L 96 Oximetry 05/01/20 05/01/20 05/01/20 00:30 00:46 01:00 Temperature Pulse Rate 57 L 68 69 Pulse Rate [ Anterior Bilateral Throughout] Pulse Rate [ From Monitor] Respiratory 18 19 15 Rate Respiratory Rate [Anterior Bilateral Throughout] Blood Pressure 97/46 97/46 97/46 O2 Sat by Pulse 97 98 100 Oximetry 05/01/20 05/01/20 05/01/20 01:16 01:30 01:46 Temperature Pulse Rate 50 L 71 71 Pulse Rate [ Anterior Bilateral Throughout] Pulse Rate [ From Monitor] Respiratory 19 21 17 Rate Respiratory Rate [Anterior Bilateral Throughout] Blood Pressure 97/46 97/46 118/58 O2 Sat by Pulse 99 97 100 Oximetry 05/01/20 05/01/20 05/01/20 02:00 02:16 02:30 Temperature Pulse Rate 57 L 71 71 Pulse Rate [ Anterior Bilateral Throughout] Pulse Rate [ From Monitor] Respiratory 17 23 27 H Rate Respiratory Rate [Anterior Bilateral Throughout] Blood Pressure 118/58 118/58 123/70 O2 Sat by Pulse 99 98 98 Oximetry 05/01/20 05/01/20 05/01/20 02:46 03:00 03:16 Temperature Pulse Rate 65 71 71 Pulse Rate [ Anterior Bilateral Throughout] Pulse Rate [ From Monitor] Respiratory 20 22 24 Rate Respiratory Rate [Anterior Bilateral Throughout] Blood Pressure 111/46 113/44 110/54 O2 Sat by Pulse 98 97 98 Oximetry 05/01/20 05/01/20 05/01/20 03:26 03:30 03:45 Temperature 98.4 F Pulse Rate 52 L 69 Pulse Rate [ Anterior Bilateral Throughout] Pulse Rate [ From Monitor] Respiratory 17 17 Rate Respiratory Rate [Anterior Bilateral Throughout] Blood Pressure 113/52 111/54 O2 Sat by Pulse 97 98 Oximetry 05/01/20 05/01/20 05/01/20 04:00 04:15 04:30 Temperature Pulse Rate 50 L 93 H 72 Pulse Rate [ Anterior Bilateral Throughout] Pulse Rate [ 73 From Monitor] Respiratory 23 28 H 24 Rate Respiratory Rate [Anterior Bilateral Throughout] Blood Pressure 111/54 111/90 111/56 O2 Sat by Pulse 98 99 98 Oximetry 05/01/20 05/01/20 05/01/20 04:45 04:51 05:00 Temperature Pulse Rate 67 66 Pulse Rate [ Anterior Bilateral Throughout] Pulse Rate [ From Monitor] Respiratory 17 16 Rate Respiratory Rate [Anterior Bilateral Throughout] Blood Pressure 113/66 110/56 O2 Sat by Pulse 100 100 100 Oximetry 05/01/20 05/01/20 05/01/20 05:16 05:30 05:45 Temperature Pulse Rate 49 L 51 L 68 Pulse Rate [ Anterior Bilateral Throughout] Pulse Rate [ From Monitor] Respiratory 17 19 25 H Rate Respiratory Rate [Anterior Bilateral Throughout] Blood Pressure 114/48 104/41 105/54 O2 Sat by Pulse 99 99 99 Oximetry 05/01/20 05/01/20 05/01/20 06:00 06:15 06:30 Temperature Pulse Rate 70 72 66 Pulse Rate [ Anterior Bilateral Throughout] Pulse Rate [ From Monitor] Respiratory 26 H 26 H 26 H Rate Respiratory Rate [Anterior Bilateral Throughout] Blood Pressure 105/54 117/48 102/55 O2 Sat by Pulse 100 100 98 Oximetry 05/01/20 05/01/20 05/01/20 06:45 07:00 07:15 Temperature Pulse Rate 68 57 L 68 Pulse Rate [ Anterior Bilateral Throughout] Pulse Rate [ From Monitor] Respiratory 28 H 20 18 Rate Respiratory Rate [Anterior Bilateral Throughout] Blood Pressure 111/59 99/46 90/48 O2 Sat by Pulse 98 98 97 Oximetry 05/01/20 05/01/20 05/01/20 07:30 07:46 08:00 Temperature Pulse Rate 54 L 69 64 Pulse Rate [ Anterior Bilateral Throughout] Pulse Rate [ 73 From Monitor] Respiratory 20 11 L 22 Rate Respiratory Rate [Anterior Bilateral Throughout] Blood Pressure 90/48 96/62 103/42 O2 Sat by Pulse 97 98 99 Oximetry 05/01/20 05/01/20 05/01/20 08:15 08:23 08:30 Temperature Pulse Rate 55 L 55 L Pulse Rate [ 65 Anterior Bilateral Throughout] Pulse Rate [ From Monitor] Respiratory 17 20 Rate Respiratory 18 Rate [Anterior Bilateral Throughout] Blood Pressure 93/45 93/45 O2 Sat by Pulse 98 100 99 Oximetry 05/01/20 08:46 Temperature Pulse Rate 52 L Pulse Rate [ Anterior Bilateral Throughout] Pulse Rate [ From Monitor] Respiratory 12 Rate Respiratory Rate [Anterior Bilateral Throughout] Blood Pressure 175/156 O2 Sat by Pulse 100 Oximetry - Lab 05/01/20 07:10 05/01/20 07:10 Most recent lab results ABG pH 7.387 pH Units (7.350-7.450) 04/29/20 11:50 ABG pCO2 31.8 mm Hg 04/29/20 11:50 ABG pO2 102.9 mm Hg (80.0-90.0) H 04/29/20 11:50 ABG HCO3 18.7 mmol/L (20.0-26.0) L 04/29/20 11:50 ABG O2 Saturation 97.8 % (95.0-99.0) 04/29/20 11:50 Calcium 8.3 mg/dL (8.4-10.2) L 05/01/20 07:10 Phosphorus 5.60 mg/dL (2.5-4.5) H 04/10/20 22:50 Magnesium 2.40 mg/dL (1.7-2.3) H 04/10/20 22:50 Urine Creatinine 35.3 mg/dL (0.1-20.0) H 04/11/20 Unknown Urine Sodium 92 mmol/L 04/11/20 Unknown Medications & Allergies - Medications Allergies/Adverse Reactions: Allergies Sulfa (Sulfonamide Antibiotics) Allergy (Verified 07/30/18 17:44) Rash Home Medications: Home Medications Medication Instructions Recorded Confirmed Last Taken Type Gabapentin 300 mg PO BID 09/19/16 04/21/20 09/18/16 History 300 mg Metformin HCl [metFORMIN ER 500 mg PO BIDWM 03/28/17 04/21/20 Unknown History Gastric] AtorvaSTATin 10 mg PO QHS #30 tablet 12/21/17 04/21/20 Unknown Rx Ranolazine ER [Ranexa ER] 500 mg PO BID #60 tablet 12/21/17 04/21/20 Unknown Rx Aspirin 325 mg PO QDAY #30 tablet 01/12/18 04/21/20 04/21/20 Rx Diphenoxylate/Atropine [Lomotil] 1 tab PO Q8H PRN 01/15/18 04/21/20 Unknown History Insulin Lispro [HumaLOG VIAL] See Protocol SQ ACHS 01/15/18 04/21/20 04/21/20 18:46 History Promethazine [Phenergan] 25 mg PO Q4H PRN 01/15/18 04/21/20 Unknown History Albuterol Mdi (or & Nicu Only) 2 puff IH Q4HR PRN #1 inhalation 12/21/18 04/21/20 04/21/20 18:46 Rx [ProAir HFA Inhaler] Furosemide [Lasix TAB] 20 mg PO QDAY #30 tablet 02/03/20 04/21/20 Unknown Rx Metoprolol Xl [Metoprolol 25 mg PO DAILY #60 tablet 02/03/20 04/21/20 04/21/20 1 8:45 Rx SUCCINATE ER TAB] levETIRAcetam [Keppra TAB] 500 mg PO BID #120 tablet 02/03/20 04/21/20 Unknown Rx levoFLOXacin [Levaquin TAB] 500 mg PO QDAY #5 tablet 02/03/20 04/21/20 Unknown Rx Active Medications: Generic Name Dose Route Start Last Admin Trade Name Freq PRN Reason Stop Dose Admin Acetaminophen 650 mg 04/11/20 01:26 04/23/20 23:13 Tylenol PO 650 mg Q6H PRN Administration Pain MILD(1-3)/Fever >100.5/MANCILLA Lipase/Protease/Amylase 1 each 04/11/20 14:22 Pancremiley Saenz 10,500 Unit FEEDTUBE PRN PRN For Clogged Feeding Tube Arformoterol Tartrate 15 mcg 04/20/20 20:00 05/01/20 08:23 Brovana Nebu IH 15 mcg Q12HRT PRAVIN Administration Budesonide 0.5 mg 04/20/20 20:00 05/01/20 08:23 Pulmicort IH 0.5 mg Q12HRT PRAVIN Administration Norepinephrine 4 mg in 250 mls @ 7.5 mls/hr 04/25/20 17:00 05/01/20 04:16 Levophed Drip 4 Mg/Ns 250 Ml IV 2 mcg/min TITR PRAVIN 7.5 mls/hr Administration Protocol 2 MCG/MIN Piperacillin Sod/Tazobactam Sod 3.375 gm in 50 mls @ 100 mls/hr 04/26/20 03:00 05/01/20 03:42 Zosyn/Ns 3.375gm/50ml IV 100 mls/hr Q8H PRAVIN Administration Protocol Dextrose 1,000 mls @ 42 mls/hr 04/30/20 17:00 04/30/20 17:20 D5w IV 42 mls/hr DIRECT PRAVIN Administration Insulin Glargine 10 units 04/16/20 22:00 04/30/20 22:00 Lantus SUB-Q Not Given QHS [facility] Insulin Human Lispro 0 unit 04/16/20 16:30 04/30/20 21:22 Humalog SUB-Q Not Given ACHS [facility] Protocol Magnesium Hydroxide 30 ml 04/11/20 01:26 Milk Of Magnesia PO Q4H PRN Constipation Ondansetron HCl 4 mg 04/25/20 04:53 04/25/20 05:25 Zofran IV 4 mg Q8H PRN Administration Nausea And Vomiting Simple Syrup 15 ml 04/11/20 14:22 Simple Syrup FEEDTUBE PRN PRN Hypoglycemia Simple Syrup 30 ml 04/11/20 14:22 Simple Syrup FEEDTUBE PRN PRN Hypoglycemia Sodium Bicarbonate 325 mg 04/11/20 14:22 Sodium Bicarbonate FEEDTUBE PRN PRN For Clogged Feeding Tube Sodium Chloride 10 ml 04/11/20 10:00 04/30/20 21:23 Sodium Chloride Flush Syringe 10 Ml IV Not Given BID PRAVIN Sodium Chloride 10 ml 04/11/20 01:26 Sodium Chloride Flush Syringe 10 Ml IV PRN PRN LINE FLUSH
[2020-05-01] MEDS: INSULIN LISPRO 100 UNIT/ML VIAL 3 mL SUB-Q SCH ×4 (10:04→21:51)
--- NOTE | 2020-05-01 10:16 | Progress Note ---
<SENA HIGGINS - Last Filed: 05/01/20 10:12> Assessment and Plan Chronic systolic heart failure LVEF 15-20% by echo 01/2020 VQ scan reports a low probability for PE. COVID 19 test was negative Paroxysmal Atrial fibrillation vs flutter metoprolol discontinued due to sinus bradycardia low dose Eliquis discontinued due to development of severe anemia normal TSH of 3.6 Chronic anemia Thrombocytopenia Dehydration Hx of Ischemic cardiomyopathy noncompliant with outpatient cardiac follow up. Hx of CAD Abdominal pain CT scan of the abdomen suggestive of colitis. Renal insufficiency Conservative cardiac management. Subjective Date of service: 05/01/20 Principal diagnosis: CHF Interval history: Patient remains on pressors for support. No cardiac event reported overnight. Stable sinus rhythm, rate 70 on telemetry. Objective Vital Signs Temp Pulse Pulse Pulse Resp Resp BP 05/01/20 08:46 52 L 12 175/156 05/01/20 08:30 55 L 20 93/45 05/01/20 08:23 65 18 05/01/20 08:15 55 L 17 93/45 05/01/20 08:00 64 73 22 103/42 05/01/20 07:46 69 11 L 96/62 05/01/20 07:30 54 L 20 90/48 05/01/20 07:15 68 18 90/48 05/01/20 07:00 57 L 20 99/46 05/01/20 06:45 68 28 H 111/59 05/01/20 06:30 66 26 H 102/55 05/01/20 06:15 72 26 H 117/48 05/01/20 06:00 70 26 H 105/54 05/01/20 05:45 68 25 H 105/54 05/01/20 05:30 51 L 19 104/41 05/01/20 05:16 49 L 17 114/48 05/01/20 05:00 66 16 110/56 05/01/20 04:51 05/01/20 04:45 67 17 113/66 05/01/20 04:30 72 24 111/56 05/01/20 04:15 93 H 28 H 111/90 05/01/20 04:00 50 L 73 23 111/54 05/01/20 03:45 69 17 111/54 05/01/20 03:30 52 L 17 113/52 05/01/20 03:26 98.4 F 05/01/20 03:16 71 24 110/54 05/01/20 03:00 71 22 113/44 05/01/20 02:46 65 20 111/46 05/01/20 02:30 71 27 H 123/70 05/01/20 02:16 71 23 118/58 05/01/20 02:00 57 L 17 118/58 05/01/20 01:46 71 17 118/58 05/01/20 01:30 71 21 97/46 05/01/20 01:16 50 L 19 97/46 05/01/20 01:00 69 15 97/46 05/01/20 00:46 68 19 97/46 05/01/20 00:30 57 L 18 97/46 05/01/20 00:16 55 L 19 97/46 05/01/20 00:00 58 L 66 25 H 97/46 04/30/20 23:54 97.8 F 04/30/20 23:46 57 L 22 97/46 04/30/20 23:30 66 25 H 97/46 04/30/20 23:16 71 20 107/46 04/30/20 23:06 67 18 100/55 04/30/20 23:00 73 22 100/55 04/30/20 22:46 83 32 H 97/61 04/30/20 22:30 80 30 H 107/52 04/30/20 22:16 80 24 107/52 04/30/20 22:00 81 29 H 113/57 04/30/20 21:45 69 16 116/54 04/30/20 21:30 61 23 123/60 04/30/20 21:16 80 20 123/60 04/30/20 21:00 66 18 53/37 04/30/20 20:45 57 L 20 84/42 04/30/20 20:30 48 L 15 94/51 04/30/20 20:15 66 19 94/51 04/30/20 20:04 69 16 04/30/20 20:00 73 73 04/30/20 19:57 97.6 F 04/30/20 17:00 69 04/30/20 15:30 68 13 93/51 04/30/20 15:16 68 14 93/51 04/30/20 13:30 73 14 105/62 04/30/20 13:20 73 13 105/62 04/30/20 13:10 72 14 105/62 04/30/20 13:00 71 16 105/62 04/30/20 12:50 69 15 95/70 04/30/20 12:40 70 16 95/70 04/30/20 12:30 72 21 80/55 04/30/20 12:20 80 19 90/47 04/30/20 12:10 76 15 90/47 04/30/20 12:00 75 17 111/93 04/30/20 11:50 82 23 111/93 04/30/20 11:40 80 16 04/30/20 11:30 82 20 111/93 04/30/20 11:20 85 18 04/30/20 11:12 87 04/30/20 11:02 87/55 04/30/20 10:31 70 91/53 Pulse Ox 05/01/20 08:46 100 05/01/20 08:30 99 05/01/20 08:23 100 05/01/20 08:15 98 05/01/20 08:00 99 05/01/20 07:46 98 05/01/20 07:30 97 05/01/20 07:15 97 05/01/20 07:00 98 05/01/20 06:45 98 05/01/20 06:30 98 05/01/20 06:15 100 05/01/20 06:00 100 05/01/20 05:45 99 05/01/20 05:30 99 05/01/20 05:16 99 05/01/20 05:00 100 05/01/20 04:51 100 05/01/20 04:45 100 05/01/20 04:30 98 05/01/20 04:15 99 05/01/20 04:00 98 05/01/20 03:45 98 05/01/20 03:30 97 05/01/20 03:26 05/01/20 03:16 98 05/01/20 03:00 97 05/01/20 02:46 98 05/01/20 02:30 98 05/01/20 02:16 98 05/01/20 02:00 99 05/01/20 01:46 100 05/01/20 01:30 97 05/01/20 01:16 99 05/01/20 01:00 100 05/01/20 00:46 98 05/01/20 00:30 97 05/01/20 00:16 96 05/01/20 00:00 81 L 04/30/20 23:54 04/30/20 23:46 96 04/30/20 23:30 04/30/20 23:16 04/30/20 23:06 94 04/30/20 23:00 94 04/30/20 22:46 89 04/30/20 22:30 99 04/30/20 22:16 100 04/30/20 22:00 100 04/30/20 21:45 98 04/30/20 21:30 100 04/30/20 21:16 93 04/30/20 21:00 99 04/30/20 20:45 99 04/30/20 20:30 99 04/30/20 20:15 99 04/30/20 20:04 95 04/30/20 20:00 04/30/20 19:57 04/30/20 17:00 04/30/20 15:30 99 04/30/20 15:16 98 04/30/20 13:30 100 04/30/20 13:20 99 04/30/20 13:10 100 04/30/20 13:00 97 04/30/20 12:50 99 04/30/20 12:40 100 04/30/20 12:30 100 04/30/20 12:20 94 04/30/20 12:10 100 04/30/20 12:00 100 04/30/20 11:50 100 04/30/20 11:40 100 04/30/20 11:30 100 04/30/20 11:20 99 04/30/20 11:12 04/30/20 11:02 04/30/20 10:31 91 - Physical Examination General: No Apparent Distress, Cachectic HEENT: Positive: PERRL Neck: Positive: trachea midline Cardiac: Positive: Reg Rate and Rhythm Lungs: Positive: Decreased Breath Sounds Neuro: Positive: Weakness Extremities: Absent: edema - Labs and Meds Cardiac Enzymes 04/30/20 05/01/20 Range/Units 08:59 07:10 AST 26 22 (5-40) units/L Coagulation 05/01/20 Range/Units 07:10 PT 17.4 H (12.2-14.9) Sec. INR 1.43 H (0.87-1.13) CBC 04/30/20 05/01/20 Range/Units 08:59 07:10 WBC 4.7 5.5 (4.5-11.0) K/mm3 RBC 3.51 L 3.02 L (3.65-5.03) M/mm3 Hgb 8.3 L 7.2 L (11.8-15.2) gm/dl Hct 27.5 L 23.6 L (35.5-45.6) % Plt Count 51 L 48 L (140-440) K/mm3 Lymph # (Auto) 0.6 L 0.5 L (1.2-5.4) K/mm3 Boundary # (Auto) 0.1 0.2 (0.0-0.8) K/mm3 Eos # (Auto) 0.0 0.1 (0.0-0.4) K/mm3 Baso # (Auto) 0.1 0.0 (0.0-0.1) K/mm3 Comprehensive Metabolic Panel 04/30/20 04/30/20 05/01/20 Range/Units 08:59 14:16 07:10 Sodium 154 H 158 H 155 H (137-145) mmol/L Potassium 4.5 4.6 3.9 (3.6-5.0) mmol/L Chloride 118.9 H 122.9 H 118.9 H (98-107) mmol/L Carbon Dioxide 15 L 14 L 19 L (22-30) mmol/L BUN 67 H 68 H 68 H (9-20) mg/dL Creatinine 2.4 H 2.5 H 2.5 H (0.8-1.3) mg/dL Glucose 119 H 139 H 151 H (75-100) mg/dL Calcium 8.4 8.0 L 8.3 L (8.4-10.2) mg/dL AST 26 22 (5-40) units/L ALT 29 26 (7-56) units/L Alkaline Phosphatase 100 82 (35-129) units/L Total Protein 6.1 L 5.7 L (6.3-8.2) g/dL Albumin 2.6 L 2.5 L (3.9-5) g/dL <DOTTIE REYNOSO Last Filed: 05/02/20 07:50> Assessment and Plan - Patient Problems (1) Acute and chronic respiratory failure Current Visit: Yes Status: Acute (2) Acute exacerbation of CHF (congestive heart failure) Current Visit: Yes Status: Acute (3) Coronary artery disease Current Visit: Yes Status: Acute Subjective Interval history: I SAW THIS PT & AGREE WITH THE Dx & Tx PLAN. Objective Vital Signs Temp Pulse Pulse Pulse Resp Resp BP 05/02/20 07:33 63 12 05/02/20 07:32 05/02/20 06:46 63 18 108/46 05/02/20 06:30 77 28 H 81/45 05/02/20 06:16 79 18 81/45 05/02/20 06:00 60 17 91/46 05/02/20 05:46 74 30 H 95/47 05/02/20 05:30 72 26 H 89/51 05/02/20 05:15 71 22 80/42 05/02/20 05:00 72 25 H 86/45 05/02/20 04:45 83 17 88/32 05/02/20 04:30 76 19 84/33 05/02/20 04:16 75 24 84/33 05/02/20 04:00 75 75 27 H 110/53 05/02/20 03:46 74 28 H 109/43 05/02/20 03:30 72 29 H 104/45 05/02/20 03:16 67 25 H 102/43 05/02/20 03:00 57 L 20 101/43 05/02/20 02:46 69 17 86/39 05/02/20 02:30 71 23 100/47 05/02/20 02:16 57 L 20 115/73 05/02/20 02:00 55 L 16 120/53 05/02/20 01:46 64 27 H 117/47 05/02/20 01:30 55 L 19 105/49 05/02/20 01:15 61 21 120/53 05/02/20 01:00 67 17 84/45 05/02/20 00:45 71 17 84/45 05/02/20 00:30 54 L 24 140/116 05/02/20 00:15 66 18 140/116 05/02/20 00:00 98.1 F 59 L 52 L 19 131/47 05/01/20 23:45 49 L 15 131/47 05/01/20 23:30 49 L 14 132/48 05/01/20 23:15 49 L 13 127/45 05/01/20 23:02 50 L 14 122/51 05/01/20 23:00 49 L 14 122/51 05/01/20 22:45 51 L 13 123/50 05/01/20 22:30 47 L 9 L 117/50 05/01/20 22:15 47 L 10 L 119/46 05/01/20 22:00 49 L 11 L 122/51 05/01/20 21:45 48 L 16 121/50 05/01/20 21:30 53 L 12 121/48 05/01/20 21:15 45 L 13 121/48 05/01/20 21:00 58 L 19 119/80 05/01/20 20:46 48 L 15 119/80 05/01/20 20:31 47 L 22 05/01/20 20:30 50 L 21 124/52 05/01/20 20:16 47 L 15 120/61 05/01/20 20:00 47 L 51 L 14 116/42 05/01/20 19:46 46 L 14 116/42 05/01/20 19:30 44 L 26 H 130/50 05/01/20 19:16 46 L 13 95/38 05/01/20 19:00 48 L 20 121/31 05/01/20 18:46 52 L 16 130/40 05/01/20 18:30 47 L 16 85/38 05/01/20 18:15 43 L 12 89/41 05/01/20 18:00 43 L 19 118/51 05/01/20 17:46 46 L 19 118/51 05/01/20 17:30 43 L 20 104/42 05/01/20 17:16 65 20 104/42 05/01/20 17:00 41 L 11 L 95/41 05/01/20 16:46 42 L 12 98/36 05/01/20 16:30 43 L 14 97/45 05/01/20 16:15 60 16 100/50 05/01/20 16:00 63 73 11 L 97/50 05/01/20 15:45 47 L 23 84/48 05/01/20 15:30 66 26 H 92/39 05/01/20 15:16 65 16 78/49 05/01/20 15:00 48 L 18 103/45 05/01/20 14:46 47 L 16 62/36 05/01/20 14:30 49 L 17 87/48 05/01/20 14:16 62 18 87/48 05/01/20 14:00 48 L 14 89/43 05/01/20 13:46 63 13 95/46 05/01/20 13:30 57 L 15 95/46 05/01/20 13:16 63 20 90/46 05/01/20 13:00 65 20 72/35 05/01/20 12:45 45 L 18 84/51 05/01/20 12:30 50 L 18 122/45 05/01/20 12:16 60 18 122/45 05/01/20 12:00 47 L 73 13 79/46 05/01/20 11:46 48 L 18 79/46 05/01/20 11:30 48 L 90/39 05/01/20 11:16 47 L 101/34 05/01/20 11:00 66 13 101/30 05/01/20 10:46 49 L 16 101/30 05/01/20 10:30 48 L 17 86/46 05/01/20 10:15 49 L 17 93/47 05/01/20 10:00 50 L 22 93/50 05/01/20 09:46 47 L 17 100/37 05/01/20 09:30 51 L 21 92/41 05/01/20 09:15 63 20 97/48 05/01/20 09:00 61 19 94/50 05/01/20 08:46 52 L 12 175/156 05/01/20 08:30 55 L 20 93/45 05/01/20 08:23 65 18 05/01/20 08:15 55 L 17 93/45 05/01/20 08:00 61 73 22 103/42 Pulse Ox 05/02/20 07:33 05/02/20 07:32 96 05/02/20 06:46 98 05/02/20 06:30 98 05/02/20 06:16 97 05/02/20 06:00 99 05/02/20 05:46 98 05/02/20 05:30 98 05/02/20 05:15 98 05/02/20 05:00 98 05/02/20 04:45 98 05/02/20 04:30 97 05/02/20 04:16 98 05/02/20 04:00 98 05/02/20 03:46 98 05/02/20 03:30 98 05/02/20 03:16 98 05/02/20 03:00 100 05/02/20 02:46 05/02/20 02:30 05/02/20 02:16 100 05/02/20 02:00 100 05/02/20 01:46 100 05/02/20 01:30 100 05/02/20 01:15 99 05/02/20 01:00 98 05/02/20 00:45 05/02/20 00:30 05/02/20 00:15 05/02/20 00:00 97 05/01/20 23:45 100 05/01/20 23:30 100 05/01/20 23:15 99 05/01/20 23:02 100 05/01/20 23:00 100 05/01/20 22:45 100 05/01/20 22:30 100 05/01/20 22:15 99 05/01/20 22:00 99 05/01/20 21:45 99 05/01/20 21:30 99 05/01/20 21:15 98 05/01/20 21:00 99 05/01/20 20:46 98 05/01/20 20:31 05/01/20 20:30 98 05/01/20 20:16 99 05/01/20 20:00 100 05/01/20 19:46 98 05/01/20 19:30 100 05/01/20 19:16 05/01/20 19:00 05/01/20 18:46 05/01/20 18:30 95 05/01/20 18:15 100 05/01/20 18:00 100 05/01/20 17:46 99 05/01/20 17:30 100 05/01/20 17:16 91 05/01/20 17:00 100 05/01/20 16:46 100 05/01/20 16:30 99 05/01/20 16:15 95 05/01/20 16:00 100 05/01/20 15:45 99 05/01/20 15:30 05/01/20 15:16 96 05/01/20 15:00 97 05/01/20 14:46 99 05/01/20 14:30 99 05/01/20 14:16 97 05/01/20 14:00 100 05/01/20 13:46 97 05/01/20 13:30 99 05/01/20 13:16 98 05/01/20 13:00 98 05/01/20 12:45 100 05/01/20 12:30 100 05/01/20 12:16 99 05/01/20 12:00 98 05/01/20 11:46 98 05/01/20 11:30 100 05/01/20 11:16 98 05/01/20 11:00 93 05/01/20 10:46 100 05/01/20 10:30 100 05/01/20 10:15 99 05/01/20 10:00 99 05/01/20 09:46 99 05/01/20 09:30 100 05/01/20 09:15 48 L 05/01/20 09:00 98 05/01/20 08:46 100 05/01/20 08:30 99 05/01/20 08:23 100 05/01/20 08:15 98 05/01/20 08:00 99 - Labs and Meds Cardiac Enzymes 05/01/20 05/02/20 Range/Units 07:10 05:07 AST 22 19 (5-40) units/L Coagulation 05/01/20 Range/Units 07:10 PT 17.4 H (12.2-14.9) Sec. INR 1.43 H (0.87-1.13) CBC 05/01/20 05/02/20 Range/Units 07:10 05:07 WBC 4.5 (4.5-11.0) K/mm3 RBC 2.76 L (3.65-5.03) M/mm3 Hgb 6.7 L (11.8-15.2) gm/dl Hct 21.3 L (35.5-45.6) % Plt Count 48 L 43 L (140-440) K/mm3 Lymph # (Auto) 0.5 L (1.2-5.4) K/mm3 Boundary # (Auto) 0.2 (0.0-0.8) K/mm3 Eos # (Auto) 0.1 (0.0-0.4) K/mm3 Baso # (Auto) 0.1 (0.0-0.1) K/mm3 Comprehensive Metabolic Panel 05/01/20 05/02/20 Range/Units 07:10 05:07 Sodium 155 H 154 H (137-145) mmol/L Potassium 3.9 3.7 (3.6-5.0) mmol/L Chloride 118.9 H 120.4 H (98-107) mmol/L Carbon Dioxide 19 L 15 L (22-30) mmol/L BUN 68 H 67 H (9-20) mg/dL Creatinine 2.5 H 2.6 H (0.8-1.3) mg/dL Glucose 151 H 179 H (75-100) mg/dL Calcium 8.3 L 8.4 (8.4-10.2) mg/dL AST 22 19 (5-40) units/L ALT 26 22 (7-56) units/L Alkaline Phosphatase 82 77 (35-129) units/L Total Protein 5.7 L 5.4 L (6.3-8.2) g/dL Albumin 2.5 L 2.4 L (3.9-5) g/dL
--- NOTE | 2020-05-01 13:56 | Progress Note ---
Assessment and Plan 75 y/o male with known systolic heart failure, admitted with shortness of breath and abdominal pain 10 days ago, had nonsustained V-tach on arrival but never lost pulse, now with abnormal CXR and chronic respiratory failure. 1. Will start patient on TID midodrine and wean vasopressors for MAPS of 55-60 or greater 2. Patient likely lives in a low flow state given his very poor EF (15%). Does not need maps >65 3. Will attempt to catch EKG while asleep to make sure it is still sinus. No reason for it to not be be but he was in the 40's on levophed. 4. Once off pressors, back to the floor. CCT 31 minutes. Subjective Date of service: 05/01/20 Principal diagnosis: CHF Interval history: Patient transferred to unit last night for Hypotension, requiring pressors. Awake and alert. HR in the 40's while sleeping but in the 60's when awake. EKG yesterday was sinus. Objective Vital Signs - 12hr 05/01/20 05/01/20 05/01/20 02:00 02:16 02:30 Temperature Pulse Rate 57 L 71 71 Pulse Rate [ Anterior Bilateral Throughout] Pulse Rate [ From Monitor] Respiratory 17 23 27 H Rate Respiratory Rate [Anterior Bilateral Throughout] Blood Pressure 118/58 118/58 123/70 O2 Sat by Pulse 99 98 98 Oximetry 05/01/20 05/01/20 05/01/20 02:46 03:00 03:16 Temperature Pulse Rate 65 71 71 Pulse Rate [ Anterior Bilateral Throughout] Pulse Rate [ From Monitor] Respiratory 20 22 24 Rate Respiratory Rate [Anterior Bilateral Throughout] Blood Pressure 111/46 113/44 110/54 O2 Sat by Pulse 98 97 98 Oximetry 05/01/20 05/01/20 05/01/20 03:26 03:30 03:45 Temperature 98.4 F Pulse Rate 52 L 69 Pulse Rate [ Anterior Bilateral Throughout] Pulse Rate [ From Monitor] Respiratory 17 17 Rate Respiratory Rate [Anterior Bilateral Throughout] Blood Pressure 113/52 111/54 O2 Sat by Pulse 97 98 Oximetry 05/01/20 05/01/20 05/01/20 04:00 04:15 04:30 Temperature Pulse Rate 50 L 93 H 72 Pulse Rate [ Anterior Bilateral Throughout] Pulse Rate [ 73 From Monitor] Respiratory 23 28 H 24 Rate Respiratory Rate [Anterior Bilateral Throughout] Blood Pressure 111/54 111/90 111/56 O2 Sat by Pulse 98 99 98 Oximetry 05/01/20 05/01/20 05/01/20 04:45 04:51 05:00 Temperature Pulse Rate 67 66 Pulse Rate [ Anterior Bilateral Throughout] Pulse Rate [ From Monitor] Respiratory 17 16 Rate Respiratory Rate [Anterior Bilateral Throughout] Blood Pressure 113/66 110/56 O2 Sat by Pulse 100 100 100 Oximetry 05/01/20 05/01/20 05/01/20 05:16 05:30 05:45 Temperature Pulse Rate 49 L 51 L 68 Pulse Rate [ Anterior Bilateral Throughout] Pulse Rate [ From Monitor] Respiratory 17 19 25 H Rate Respiratory Rate [Anterior Bilateral Throughout] Blood Pressure 114/48 104/41 105/54 O2 Sat by Pulse 99 99 99 Oximetry 05/01/20 05/01/20 05/01/20 06:00 06:15 06:30 Temperature Pulse Rate 70 72 66 Pulse Rate [ Anterior Bilateral Throughout] Pulse Rate [ From Monitor] Respiratory 26 H 26 H 26 H Rate Respiratory Rate [Anterior Bilateral Throughout] Blood Pressure 105/54 117/48 102/55 O2 Sat by Pulse 100 100 98 Oximetry 05/01/20 05/01/20 05/01/20 06:45 07:00 07:15 Temperature Pulse Rate 68 57 L 68 Pulse Rate [ Anterior Bilateral Throughout] Pulse Rate [ From Monitor] Respiratory 28 H 20 18 Rate Respiratory Rate [Anterior Bilateral Throughout] Blood Pressure 111/59 99/46 90/48 O2 Sat by Pulse 98 98 97 Oximetry 05/01/20 05/01/20 05/01/20 07:30 07:46 08:00 Temperature Pulse Rate 54 L 69 64 Pulse Rate [ Anterior Bilateral Throughout] Pulse Rate [ 73 From Monitor] Respiratory 20 11 L 22 Rate Respiratory Rate [Anterior Bilateral Throughout] Blood Pressure 90/48 96/62 103/42 O2 Sat by Pulse 97 98 99 Oximetry 05/01/20 05/01/20 05/01/20 08:15 08:23 08:30 Temperature Pulse Rate 55 L 55 L Pulse Rate [ 65 Anterior Bilateral Throughout] Pulse Rate [ From Monitor] Respiratory 17 20 Rate Respiratory 18 Rate [Anterior Bilateral Throughout] Blood Pressure 93/45 93/45 O2 Sat by Pulse 98 100 99 Oximetry 05/01/20 08:46 Temperature Pulse Rate 52 L Pulse Rate [ Anterior Bilateral Throughout] Pulse Rate [ From Monitor] Respiratory 12 Rate Respiratory Rate [Anterior Bilateral Throughout] Blood Pressure 175/156 O2 Sat by Pulse 100 Oximetry Constitutional: no acute distress, alert Eyes: non-icteric Neck: supple Ascultation: Bilateral: diminished breath sounds Percussion: Bilateral: not dull Cardiovascular: irregular rhythm CBC and BMP: 05/01/20 07:10 05/01/20 07:10 ABG, PT/INR, D-dimer: ABG ABG pH 7.387 pH Units (7.350-7.450) 04/29/20 11:50 ABG pCO2 31.8 mm Hg 04/29/20 11:50 ABG pO2 102.9 mm Hg (80.0-90.0) H 04/29/20 11:50 ABG O2 Saturation 97.8 % (95.0-99.0) 04/29/20 11:50 PT/INR, D-dimer PT 17.4 Sec. (12.2-14.9) H 05/01/20 07:10 INR 1.43 (0.87-1.13) H 05/01/20 07:10 D-Dimer 1259.67 ng/mlDDU (0-234) H 04/25/20 16:09 Abnormal lab findings: Abnormal Labs 04/10/20 04/10/20 04/10/20 20:04 20:04 20:04 WBC RBC Hgb 9.3 L Hct 29.9 L MCV 80 L MCH 25 L MCHC 31 L RDW 21.7 H Plt Count Lymph % (Auto) 10.9 L Lymph # (Auto) 0.8 L Seg Neutrophils % 81.5 H Seg Neuts % (Manual) Lymphocytes % (Manual) Nucleated RBC % Seg Neutrophils # Seg Neutrophils # Man Lymphocytes # (Manual) Basophils # (Manual) PT INR D-Dimer Heparin Anti-Xa Level ABG pH ABG pO2 ABG HCO3 ABG O2 Saturation ABG Base Excess ABG Hemoglobin Sodium 133 L Potassium 5.9 H Chloride Carbon Dioxide 12 L BUN 25 H Creatinine 1.7 H Glucose 119 H POC Glucose Lactic Acid 8.80 H* Calcium Phosphorus Magnesium Total Bilirubin 1.40 H Direct Bilirubin AST 144 H ALT 83 H Alkaline Phosphatase 212 H Lactate Dehydrogenase Troponin T 0.081 H C-Reactive Protein NT-Pro-B Natriuret Pep Total Protein Albumin 3.5 L Urine Creatinine 04/10/20 04/10/20 04/10/20 20:35 20:51 20:51 WBC RBC Hgb Hct MCV MCH MCHC RDW Plt Count Lymph % (Auto) Lymph # (Auto) Seg Neutrophils % Seg Neuts % (Manual) Lymphocytes % (Manual) Nucleated RBC % Seg Neutrophils # Seg Neutrophils # Man Lymphocytes # (Manual) Basophils # (Manual) PT INR D-Dimer 1881.28 H Heparin Anti-Xa Level ABG pH 7.320 L ABG pO2 240.7 H ABG HCO3 11.8 L ABG O2 Saturation 99.4 H ABG Base Excess -12.8 L ABG Hemoglobin 9.0 L Sodium Potassium Chloride Carbon Dioxide BUN Creatinine Glucose 116 H POC Glucose Lactic Acid Calcium Phosphorus Magnesium Total Bilirubin Direct Bilirubin AST ALT Alkaline Phosphatase Lactate Dehydrogenase 664 H Troponin T C-Reactive Protein 5.60 H NT-Pro-B Natriuret Pep Total Protein Albumin Urine Creatinine 04/10/20 04/10/20 04/11/20 20:51 22:50 00:36 WBC RBC Hgb Hct MCV MCH MCHC RDW Plt Count Lymph % (Auto) Lymph # (Auto) Seg Neutrophils % Seg Neuts % (Manual) Lymphocytes % (Manual) Nucleated RBC % Seg Neutrophils # Seg Neutrophils # Man Lymphocytes # (Manual) Basophils # (Manual) PT INR D-Dimer Heparin Anti-Xa Level ABG pH ABG pO2 ABG HCO3 ABG O2 Saturation ABG Base Excess ABG Hemoglobin Sodium 132 L Potassium 6.0 H Chloride Carbon Dioxide 17 L BUN 26 H Creatinine 1.7 H Glucose 115 H POC Glucose 237 H Lactic Acid Calcium Phosphorus 5.60 H Magnesium 2.40 H Total Bilirubin 1.40 H Direct Bilirubin AST 286 H ALT 161 H Alkaline Phosphatase 207 H Lactate Dehydrogenase Troponin T C-Reactive Protein NT-Pro-B Natriuret Pep Total Protein Albumin 3.6 L Urine Creatinine 04/11/20 04/11/20 04/11/20 03:10 05:32 07:37 WBC RBC Hgb Hct MCV MCH MCHC RDW Plt Count Lymph % (Auto) Lymph # (Auto) Seg Neutrophils % Seg Neuts % (Manual) Lymphocytes % (Manual) Nucleated RBC % Seg Neutrophils # Seg Neutrophils # Man Lymphocytes # (Manual) Basophils # (Manual) PT INR D-Dimer Heparin Anti-Xa Level ABG pH ABG pO2 ABG HCO3 ABG O2 Saturation ABG Base Excess ABG Hemoglobin Sodium Potassium 6.2 H* Chloride Carbon Dioxide BUN Creatinine Glucose POC Glucose 181 H 182 H Lactic Acid Calcium Phosphorus Magnesium Total Bilirubin Direct Bilirubin AST ALT Alkaline Phosphatase Lactate Dehydrogenase Troponin T C-Reactive Protein NT-Pro-B Natriuret Pep Total Protein Albumin Urine Creatinine 04/11/20 04/11/20 04/11/20 07:37 07:45 12:04 WBC RBC Hgb Hct MCV MCH MCHC RDW Plt Count Lymph % (Auto) Lymph # (Auto) Seg Neutrophils % Seg Neuts % (Manual) Lymphocytes % (Manual) Nucleated RBC % Seg Neutrophils # Seg Neutrophils # Man Lymphocytes # (Manual) Basophils # (Manual) PT INR D-Dimer Heparin Anti-Xa Level ABG pH ABG pO2 ABG HCO3 ABG O2 Saturation ABG Base Excess ABG Hemoglobin Sodium 133 L Potassium 6.1 H* Chloride Carbon Dioxide 10 L D BUN 26 H Creatinine 1.7 H Glucose POC Glucose 212 H 196 H Lactic Acid Calcium Phosphorus Magnesium Total Bilirubin Direct Bilirubin AST ALT Alkaline Phosphatase Lactate Dehydrogenase Troponin T C-Reactive Protein NT-Pro-B Natriuret Pep Total Protein Albumin Urine Creatinine 04/11/20 04/11/20 04/11/20 15:11 15:11 15:11 WBC RBC Hgb Hct MCV MCH MCHC RDW Plt Count Lymph % (Auto) Lymph # (Auto) Seg Neutrophils % Seg Neuts % (Manual) Lymphocytes % (Manual) Nucleated RBC % Seg Neutrophils # Seg Neutrophils # Man Lymphocytes # (Manual) Basophils # (Manual) PT INR D-Dimer 2029.09 H Heparin Anti-Xa Level ABG pH ABG pO2 ABG HCO3 ABG O2 Saturation ABG Base Excess ABG Hemoglobin Sodium Potassium Chloride Carbon Dioxide BUN Creatinine Glucose POC Glucose Lactic Acid 2.30 H* Calcium Phosphorus Magnesium Total Bilirubin Direct Bilirubin AST ALT Alkaline Phosphatase Lactate Dehydrogenase Troponin T C-Reactive Protein NT-Pro-B Natriuret Pep > 43591 H Total Protein Albumin Urine Creatinine 04/11/20 04/11/20 04/11/20 15:11 16:07 16:25 WBC RBC Hgb Hct MCV MCH MCHC RDW Plt Count Lymph % (Auto) Lymph # (Auto) Seg Neutrophils % Seg Neuts % (Manual) Lymphocytes % (Manual) Nucleated RBC % Seg Neutrophils # Seg Neutrophils # Man Lymphocytes # (Manual) Basophils # (Manual) PT INR D-Dimer Heparin Anti-Xa Level ABG pH ABG pO2 110.8 H ABG HCO3 ABG O2 Saturation ABG Base Excess -3.4 L ABG Hemoglobin 8.6 L Sodium 131 L Potassium 5.3 H Chloride Carbon Dioxide BUN 33 H Creatinine 1.9 H Glucose 268 H POC Glucose 227 H Lactic Acid Calcium 8.3 L Phosphorus Magnesium Total Bilirubin Direct Bilirubin AST 575 H ALT 414 H Alkaline Phosphatase 153 H Lactate Dehydrogenase Troponin T C-Reactive Protein NT-Pro-B Natriuret Pep Total Protein 5.6 L Albumin 2.9 L Urine Creatinine 04/11/20 04/12/20 04/12/20 Unknown 05:57 06:22 WBC RBC Hgb Hct MCV MCH MCHC RDW Plt Count Lymph % (Auto) Lymph # (Auto) Seg Neutrophils % Seg Neuts % (Manual) Lymphocytes % (Manual) Nucleated RBC % Seg Neutrophils # Seg Neutrophils # Man Lymphocytes # (Manual) Basophils # (Manual) PT INR D-Dimer Heparin Anti-Xa Level ABG pH ABG pO2 ABG HCO3 ABG O2 Saturation ABG Base Excess ABG Hemoglobin Sodium Potassium Chloride Carbon Dioxide BUN Creatinine Glucose POC Glucose 139 H Lactic Acid 3.00 H* Calcium Phosphorus Magnesium Total Bilirubin Direct Bilirubin AST ALT Alkaline Phosphatase Lactate Dehydrogenase Troponin T C-Reactive Protein NT-Pro-B Natriuret Pep Total Protein Albumin Urine Creatinine 35.3 H 04/12/20 04/12/20 04/12/20 06:22 06:22 06:22 WBC 11.5 H RBC 3.61 L Hgb 9.1 L Hct 27.8 L MCV 77 L MCH 25 L MCHC RDW 20.8 H Plt Count Lymph % (Auto) Lymph # (Auto) Seg Neutrophils % Seg Neuts % (Manual) 100.0 H Lymphocytes % (Manual) 0 L Nucleated RBC % Seg Neutrophils # Seg Neutrophils # Man 11.5 H Lymphocytes # (Manual) 0.0 L Basophils # (Manual) PT 15.5 H INR 1.21 H D-Dimer Heparin Anti-Xa Level ABG pH ABG pO2 ABG HCO3 ABG O2 Saturation ABG Base Excess ABG Hemoglobin Sodium 132 L Potassium 5.3 H Chloride 96.6 L Carbon Dioxide 20 L BUN 43 H Creatinine 2.0 H Glucose 152 H POC Glucose Lactic Acid Calcium Phosphorus Magnesium Total Bilirubin Direct Bilirubin AST ALT Alkaline Phosphatase Lactate Dehydrogenase Troponin T C-Reactive Protein NT-Pro-B Natriuret Pep Total Protein Albumin Urine Creatinine 04/12/20 04/12/20 04/12/20 13:23 18:12 20:23 WBC RBC Hgb Hct MCV MCH MCHC RDW Plt Count Lymph % (Auto) Lymph # (Auto) Seg Neutrophils % Seg Neuts % (Manual) Lymphocytes % (Manual) Nucleated RBC % Seg Neutrophils # Seg Neutrophils # Man Lymphocytes # (Manual) Basophils # (Manual) PT INR D-Dimer Heparin Anti-Xa Level ABG pH ABG pO2 ABG HCO3 ABG O2 Saturation ABG Base Excess ABG Hemoglobin Sodium 135 L Potassium 5.4 H Chloride Carbon Dioxide BUN 53 H Creatinine 2.3 H Glucose 190 H POC Glucose 224 H 170 H Lactic Acid Calcium Phosphorus Magnesium Total Bilirubin Direct Bilirubin AST ALT Alkaline Phosphatase Lactate Dehydrogenase Troponin T C-Reactive Protein NT-Pro-B Natriuret Pep Total Protein Albumin Urine Creatinine 04/12/20 04/12/20 04/13/20 20:23 23:59 05:06 WBC RBC Hgb 8.4 L Hct 26.6 L MCV MCH MCHC RDW Plt Count Lymph % (Auto) Lymph # (Auto) Seg Neutrophils % Seg Neuts % (Manual) Lymphocytes % (Manual) Nucleated RBC % Seg Neutrophils # Seg Neutrophils # Man Lymphocytes # (Manual) Basophils # (Manual) PT INR D-Dimer Heparin Anti-Xa Level < 0.10 L ABG pH ABG pO2 ABG HCO3 ABG O2 Saturation ABG Base Excess ABG Hemoglobin Sodium Potassium Chloride Carbon Dioxide BUN Creatinine Glucose POC Glucose 189 H Lactic Acid Calcium Phosphorus Magnesium Total Bilirubin Direct Bilirubin AST ALT Alkaline Phosphatase Lactate Dehydrogenase Troponin T C-Reactive Protein NT-Pro-B Natriuret Pep Total Protein Albumin Urine Creatinine 04/13/20 04/13/20 04/13/20 05:06 05:06 05:47 WBC RBC Hgb Hct MCV MCH MCHC RDW Plt Count Lymph % (Auto) Lymph # (Auto) Seg Neutrophils % Seg Neuts % (Manual) Lymphocytes % (Manual) Nucleated RBC % Seg Neutrophils # Seg Neutrophils # Man Lymphocytes # (Manual) Basophils # (Manual) PT INR D-Dimer Heparin Anti-Xa Level ABG pH ABG pO2 ABG HCO3 ABG O2 Saturation ABG Base Excess ABG Hemoglobin Sodium 135 L Potassium Chloride Carbon Dioxide 17 L BUN 59 H Creatinine 2.2 H Glucose 256 H POC Glucose 240 H Lactic Acid Calcium Phosphorus Magnesium Total Bilirubin Direct Bilirubin 0.6 H AST 160 H ALT 333 H Alkaline Phosphatase 153 H Lactate Dehydrogenase Troponin T C-Reactive Protein NT-Pro-B Natriuret Pep Total Protein 6.0 L Albumin 3.0 L Urine Creatinine 04/13/20 04/13/20 04/14/20 11:36 21:08 00:32 WBC RBC Hgb Hct MCV MCH MCHC RDW Plt Count Lymph % (Auto) Lymph # (Auto) Seg Neutrophils % Seg Neuts % (Manual) Lymphocytes % (Manual) Nucleated RBC % Seg Neutrophils # Seg Neutrophils # Man Lymphocytes # (Manual) Basophils # (Manual) PT INR D-Dimer Heparin Anti-Xa Level ABG pH ABG pO2 ABG HCO3 ABG O2 Saturation ABG Base Excess ABG Hemoglobin Sodium Potassium Chloride Carbon Dioxide BUN Creatinine Glucose POC Glucose 167 H 199 H 233 H Lactic Acid Calcium Phosphorus Magnesium Total Bilirubin Direct Bilirubin AST ALT Alkaline Phosphatase Lactate Dehydrogenase Troponin T C-Reactive Protein NT-Pro-B Natriuret Pep Total Protein Albumin Urine Creatinine 04/14/20 04/14/20 04/14/20 06:34 06:41 16:50 WBC RBC Hgb Hct MCV MCH MCHC RDW Plt Count Lymph % (Auto) Lymph # (Auto) Seg Neutrophils % Seg Neuts % (Manual) Lymphocytes % (Manual) Nucleated RBC % Seg Neutrophils # Seg Neutrophils # Man Lymphocytes # (Manual) Basophils # (Manual) PT INR D-Dimer Heparin Anti-Xa Level ABG pH ABG pO2 ABG HCO3 ABG O2 Saturation ABG Base Excess ABG Hemoglobin Sodium 129 L Potassium 5.7 H D Chloride 96.2 L Carbon Dioxide 14 L BUN 81 H Creatinine 2.8 H Glucose 244 H POC Glucose 195 H 293 H Lactic Acid Calcium Phosphorus Magnesium Total Bilirubin Direct Bilirubin AST 181 H ALT 386 H Alkaline Phosphatase 160 H Lactate Dehydrogenase Troponin T C-Reactive Protein NT-Pro-B Natriuret Pep Total Protein 6.0 L Albumin 2.9 L Urine Creatinine 04/14/20 04/15/20 04/15/20 23:55 04:56 04:56 WBC RBC Hgb 8.7 L Hct 27.2 L MCV MCH MCHC RDW Plt Count Lymph % (Auto) Lymph # (Auto) Seg Neutrophils % Seg Neuts % (Manual) Lymphocytes % (Manual) Nucleated RBC % Seg Neutrophils # Seg Neutrophils # Man Lymphocytes # (Manual) Basophils # (Manual) PT INR D-Dimer Heparin Anti-Xa Level ABG pH ABG pO2 ABG HCO3 ABG O2 Saturation ABG Base Excess ABG Hemoglobin Sodium Potassium Chloride Carbon Dioxide 19 L BUN 93 H 97 H Creatinine 3.1 H 2.9 H Glucose 226 H 226 H POC Glucose Lactic Acid Calcium 8.3 L 8.1 L Phosphorus Magnesium Total Bilirubin Direct Bilirubin AST ALT Alkaline Phosphatase Lactate Dehydrogenase Troponin T C-Reactive Protein NT-Pro-B Natriuret Pep Total Protein Albumin Urine Creatinine 04/15/20 04/15/20 04/15/20 04:56 05:25 11:03 WBC RBC Hgb Hct MCV MCH MCHC RDW Plt Count Lymph % (Auto) Lymph # (Auto) Seg Neutrophils % Seg Neuts % (Manual) Lymphocytes % (Manual) Nucleated RBC % Seg Neutrophils # Seg Neutrophils # Man Lymphocytes # (Manual) Basophils # (Manual) PT INR D-Dimer Heparin Anti-Xa Level ABG pH ABG pO2 ABG HCO3 ABG O2 Saturation ABG Base Excess ABG Hemoglobin Sodium Potassium Chloride Carbon Dioxide BUN Creatinine Glucose POC Glucose 209 H 127 H Lactic Acid Calcium Phosphorus Magnesium Total Bilirubin Direct Bilirubin 0.6 H AST 85 H ALT 330 H Alkaline Phosphatase 201 H Lactate Dehydrogenase Troponin T C-Reactive Protein NT-Pro-B Natriuret Pep Total Protein 6.1 L Albumin 3.5 L Urine Creatinine 04/15/20 04/16/20 04/16/20 15:16 00:39 06:14 WBC RBC Hgb Hct MCV MCH MCHC RDW Plt Count Lymph % (Auto) Lymph # (Auto) Seg Neutrophils % Seg Neuts % (Manual) Lymphocytes % (Manual) Nucleated RBC % Seg Neutrophils # Seg Neutrophils # Man Lymphocytes # (Manual) Basophils # (Manual) PT INR D-Dimer Heparin Anti-Xa Level ABG pH ABG pO2 ABG HCO3 ABG O2 Saturation ABG Base Excess ABG Hemoglobin Sodium Potassium Chloride Carbon Dioxide BUN Creatinine Glucose POC Glucose 184 H 294 H 230 H Lactic Acid Calcium Phosphorus Magnesium Total Bilirubin Direct Bilirubin AST ALT Alkaline Phosphatase Lactate Dehydrogenase Troponin T C-Reactive Protein NT-Pro-B Natriuret Pep Total Protein Albumin Urine Creatinine 04/16/20 04/16/20 04/16/20 07:12 07:12 11:09 WBC RBC Hgb 9.1 L Hct 28.8 L MCV 78 L MCH 25 L MCHC RDW 21.4 H Plt Count 138 L Lymph % (Auto) Lymph # (Auto) Seg Neutrophils % Seg Neuts % (Manual) 94.0 H Lymphocytes % (Manual) 4.0 L Nucleated RBC % 1.0 H Seg Neutrophils # Seg Neutrophils # Man Lymphocytes # (Manual) 0.3 L Basophils # (Manual) PT INR D-Dimer Heparin Anti-Xa Level ABG pH ABG pO2 ABG HCO3 ABG O2 Saturation ABG Base Excess ABG Hemoglobin Sodium Potassium Chloride Carbon Dioxide BUN 106 H Creatinine 3.1 H Glucose 219 H POC Glucose 297 H Lactic Acid Calcium 7.9 L Phosphorus Magnesium Total Bilirubin Direct Bilirubin AST 58 H ALT 247 H Alkaline Phosphatase 150 H Lactate Dehydrogenase Troponin T C-Reactive Protein NT-Pro-B Natriuret Pep Total Protein 6.1 L Albumin 3.4 L Urine Creatinine 04/16/20 04/16/20 04/17/20 16:42 22:39 04:31 WBC RBC Hgb 9.1 L Hct 28.8 L MCV MCH MCHC RDW Plt Count 132 L Lymph % (Auto) Lymph # (Auto) Seg Neutrophils % Seg Neuts % (Manual) Lymphocytes % (Manual) Nucleated RBC % Seg Neutrophils # Seg Neutrophils # Man Lymphocytes # (Manual) Basophils # (Manual) PT INR D-Dimer Heparin Anti-Xa Level ABG pH ABG pO2 ABG HCO3 ABG O2 Saturation ABG Base Excess ABG Hemoglobin Sodium Potassium Chloride Carbon Dioxide BUN Creatinine Glucose POC Glucose 314 H 303 H Lactic Acid Calcium Phosphorus Magnesium Total Bilirubin Direct Bilirubin AST ALT Alkaline Phosphatase Lactate Dehydrogenase Troponin T C-Reactive Protein NT-Pro-B Natriuret Pep Total Protein Albumin Urine Creatinine 04/17/20 04/17/20 04/17/20 04:31 08:01 10:30 WBC RBC Hgb Hct MCV MCH MCHC RDW Plt Count Lymph % (Auto) Lymph # (Auto) Seg Neutrophils % Seg Neuts % (Manual) Lymphocytes % (Manual) Nucleated RBC % Seg Neutrophils # Seg Neutrophils # Man Lymphocytes # (Manual) Basophils # (Manual) PT INR D-Dimer Heparin Anti-Xa Level ABG pH 7.505 H ABG pO2 157.9 H ABG HCO3 19.4 L ABG O2 Saturation 99.1 H ABG Base Excess -2.8 L ABG Hemoglobin 9.1 L Sodium Potassium Chloride Carbon Dioxide 18 L BUN 111 H Creatinine 2.9 H Glucose 184 H POC Glucose 185 H Lactic Acid Calcium 7.9 L Phosphorus Magnesium Total Bilirubin Direct Bilirubin AST ALT 201 H Alkaline Phosphatase 148 H Lactate Dehydrogenase Troponin T C-Reactive Protein NT-Pro-B Natriuret Pep Total Protein 6.1 L Albumin 3.4 L Urine Creatinine 04/17/20 04/17/20 04/17/20 12:14 17:57 20:54 WBC RBC Hgb Hct MCV MCH MCHC RDW Plt Count Lymph % (Auto) Lymph # (Auto) Seg Neutrophils % Seg Neuts % (Manual) Lymphocytes % (Manual) Nucleated RBC % Seg Neutrophils # Seg Neutrophils # Man Lymphocytes # (Manual) Basophils # (Manual) PT INR D-Dimer Heparin Anti-Xa Level ABG pH ABG pO2 ABG HCO3 ABG O2 Saturation ABG Base Excess ABG Hemoglobin Sodium Potassium Chloride Carbon Dioxide BUN Creatinine Glucose POC Glucose 143 H 144 H 144 H Lactic Acid Calcium Phosphorus Magnesium Total Bilirubin Direct Bilirubin AST ALT Alkaline Phosphatase Lactate Dehydrogenase Troponin T C-Reactive Protein NT-Pro-B Natriuret Pep Total Protein Albumin Urine Creatinine 04/18/20 04/18/20 04/18/20 04:40 08:06 12:16 WBC RBC Hgb Hct MCV MCH MCHC RDW Plt Count Lymph % (Auto) Lymph # (Auto) Seg Neutrophils % Seg Neuts % (Manual) Lymphocytes % (Manual) Nucleated RBC % Seg Neutrophils # Seg Neutrophils # Man Lymphocytes # (Manual) Basophils # (Manual) PT INR D-Dimer Heparin Anti-Xa Level ABG pH ABG pO2 ABG HCO3 ABG O2 Saturation ABG Base Excess ABG Hemoglobin Sodium Potassium Chloride Carbon Dioxide 20 L BUN 120 H Creatinine 2.7 H Glucose 174 H POC Glucose 158 H 273 H Lactic Acid Calcium 7.9 L Phosphorus Magnesium Total Bilirubin 1.30 H Direct Bilirubin AST ALT 165 H Alkaline Phosphatase 139 H Lactate Dehydrogenase Troponin T C-Reactive Protein NT-Pro-B Natriuret Pep Total Protein 6.1 L Albumin 3.3 L Urine Creatinine 04/18/20 04/18/20 04/19/20 16:33 20:09 04:43 WBC 11.1 H RBC Hgb 9.0 L Hct 28.5 L MCV 77 L MCH 24 L MCHC RDW 21.2 H Plt Count 107 L Lymph % (Auto) Lymph # (Auto) Seg Neutrophils % Seg Neuts % (Manual) 95.0 H Lymphocytes % (Manual) 4.0 L Nucleated RBC % 2.0 H Seg Neutrophils # Seg Neutrophils # Man 10.5 H Lymphocytes # (Manual) 0.4 L Basophils # (Manual) PT INR D-Dimer Heparin Anti-Xa Level ABG pH ABG pO2 ABG HCO3 ABG O2 Saturation ABG Base Excess ABG Hemoglobin Sodium Potassium Chloride Carbon Dioxide BUN Creatinine Glucose POC Glucose 230 H 244 H Lactic Acid Calcium Phosphorus Magnesium Total Bilirubin Direct Bilirubin AST ALT Alkaline Phosphatase Lactate Dehydrogenase Troponin T C-Reactive Protein NT-Pro-B Natriuret Pep Total Protein Albumin Urine Creatinine 04/19/20 04/19/20 04/19/20 04:43 08:00 12:43 WBC RBC Hgb Hct MCV MCH MCHC RDW Plt Count Lymph % (Auto) Lymph # (Auto) Seg Neutrophils % Seg Neuts % (Manual) Lymphocytes % (Manual) Nucleated RBC % Seg Neutrophils # Seg Neutrophils # Man Lymphocytes # (Manual) Basophils # (Manual) PT INR D-Dimer Heparin Anti-Xa Level ABG pH ABG pO2 ABG HCO3 ABG O2 Saturation ABG Base Excess ABG Hemoglobin Sodium Potassium 3.4 L Chloride Carbon Dioxide BUN 110 H Creatinine 2.6 H Glucose 215 H POC Glucose 175 H 226 H Lactic Acid Calcium 8.3 L Phosphorus Magnesium Total Bilirubin Direct Bilirubin AST ALT 126 H Alkaline Phosphatase 140 H Lactate Dehydrogenase Troponin T C-Reactive Protein NT-Pro-B Natriuret Pep Total Protein 5.8 L Albumin 3.2 L Urine Creatinine 04/19/20 04/19/20 04/20/20 16:53 20:18 06:58 WBC RBC 3.63 L Hgb 8.7 L Hct 27.9 L MCV 77 L MCH 24 L MCHC 31 L RDW 21.1 H Plt Count 92 L Lymph % (Auto) Lymph # (Auto) Seg Neutrophils % Seg Neuts % (Manual) 91.0 H Lymphocytes % (Manual) 2.0 L Nucleated RBC % Seg Neutrophils # Seg Neutrophils # Man 8.1 H Lymphocytes # (Manual) 0.2 L Basophils # (Manual) PT INR D-Dimer Heparin Anti-Xa Level ABG pH ABG pO2 ABG HCO3 ABG O2 Saturation ABG Base Excess ABG Hemoglobin Sodium Potassium Chloride Carbon Dioxide BUN Creatinine Glucose POC Glucose 246 H 254 H Lactic Acid Calcium Phosphorus Magnesium Total Bilirubin Direct Bilirubin AST ALT Alkaline Phosphatase Lactate Dehydrogenase Troponin T C-Reactive Protein NT-Pro-B Natriuret Pep Total Protein Albumin Urine Creatinine 04/20/20 04/20/20 04/20/20 06:58 08:32 10:57 WBC RBC Hgb Hct MCV MCH MCHC RDW Plt Count Lymph % (Auto) Lymph # (Auto) Seg Neutrophils % Seg Neuts % (Manual) Lymphocytes % (Manual) Nucleated RBC % Seg Neutrophils # Seg Neutrophils # Man Lymphocytes # (Manual) Basophils # (Manual) PT INR D-Dimer Heparin Anti-Xa Level ABG pH ABG pO2 ABG HCO3 ABG O2 Saturation ABG Base Excess ABG Hemoglobin Sodium Potassium 3.5 L Chloride 108.9 H Carbon Dioxide BUN 96 H Creatinine 2.0 H Glucose 318 H POC Glucose 293 H 275 H Lactic Acid Calcium Phosphorus Magnesium Total Bilirubin Direct Bilirubin AST ALT Alkaline Phosphatase Lactate Dehydrogenase Troponin T C-Reactive Protein NT-Pro-B Natriuret Pep Total Protein Albumin Urine Creatinine 04/20/20 04/21/20 04/21/20 15:26 04:48 04:48 WBC RBC Hgb 9.1 L Hct 29.5 L MCV 78 L MCH 24 L MCHC 31 L RDW 21.2 H Plt Count 98 L Lymph % (Auto) 3.1 L Lymph # (Auto) 0.3 L Seg Neutrophils % 88.4 H Seg Neuts % (Manual) Lymphocytes % (Manual) Nucleated RBC % Seg Neutrophils # 9.0 H Seg Neutrophils # Man Lymphocytes # (Manual) Basophils # (Manual) PT INR D-Dimer Heparin Anti-Xa Level ABG pH ABG pO2 ABG HCO3 ABG O2 Saturation ABG Base Excess ABG Hemoglobin Sodium 148 H Potassium Chloride 111.9 H Carbon Dioxide BUN 85 H Creatinine 1.8 H Glucose 213 H POC Glucose 124 H Lactic Acid Calcium Phosphorus Magnesium Total Bilirubin Direct Bilirubin AST ALT Alkaline Phosphatase Lactate Dehydrogenase Troponin T C-Reactive Protein NT-Pro-B Natriuret Pep Total Protein Albumin Urine Creatinine 04/21/20 04/21/20 04/21/20 07:58 11:07 16:36 WBC RBC Hgb Hct MCV MCH MCHC RDW Plt Count Lymph % (Auto) Lymph # (Auto) Seg Neutrophils % Seg Neuts % (Manual) Lymphocytes % (Manual) Nucleated RBC % Seg Neutrophils # Seg Neutrophils # Man Lymphocytes # (Manual) Basophils # (Manual) PT INR D-Dimer Heparin Anti-Xa Level ABG pH ABG pO2 ABG HCO3 ABG O2 Saturation ABG Base Excess ABG Hemoglobin Sodium Potassium Chloride Carbon Dioxide BUN Creatinine Glucose POC Glucose 177 H 149 H 248 H Lactic Acid Calcium Phosphorus Magnesium Total Bilirubin Direct Bilirubin AST ALT Alkaline Phosphatase Lactate Dehydrogenase Troponin T C-Reactive Protein NT-Pro-B Natriuret Pep Total Protein Albumin Urine Creatinine 04/21/20 04/22/20 04/22/20 21:54 04:05 04:05 WBC 11.9 H RBC Hgb 8.9 L Hct 29.0 L MCV 78 L MCH 24 L MCHC 31 L RDW 21.8 H Plt Count 100 L Lymph % (Auto) 8.1 L Lymph # (Auto) 1.0 L Seg Neutrophils % 84.2 H Seg Neuts % (Manual) Lymphocytes % (Manual) Nucleated RBC % Seg Neutrophils # 10.0 H Seg Neutrophils # Man Lymphocytes # (Manual) Basophils # (Manual) PT INR D-Dimer Heparin Anti-Xa Level ABG pH ABG pO2 ABG HCO3 ABG O2 Saturation ABG Base Excess ABG Hemoglobin Sodium 148 H Potassium Chloride 114.8 H Carbon Dioxide BUN 78 H Creatinine 1.6 H Glucose POC Glucose 118 H Lactic Acid Calcium Phosphorus Magnesium Total Bilirubin Direct Bilirubin AST ALT Alkaline Phosphatase Lactate Dehydrogenase Troponin T C-Reactive Protein NT-Pro-B Natriuret Pep Total Protein Albumin Urine Creatinine 04/22/20 04/23/20 04/23/20 20:59 06:55 08:17 WBC RBC Hgb Hct MCV MCH MCHC RDW Plt Count Lymph % (Auto) Lymph # (Auto) Seg Neutrophils % Seg Neuts % (Manual) Lymphocytes % (Manual) Nucleated RBC % Seg Neutrophils # Seg Neutrophils # Man Lymphocytes # (Manual) Basophils # (Manual) PT INR D-Dimer Heparin Anti-Xa Level ABG pH ABG pO2 ABG HCO3 ABG O2 Saturation ABG Base Excess ABG Hemoglobin Sodium Potassium 5.2 H D Chloride 113.4 H Carbon Dioxide BUN 69 H Creatinine 1.4 H Glucose 167 H POC Glucose 148 H 165 H Lactic Acid Calcium 8.1 L Phosphorus Magnesium Total Bilirubin Direct Bilirubin AST ALT Alkaline Phosphatase Lactate Dehydrogenase Troponin T C-Reactive Protein NT-Pro-B Natriuret Pep Total Protein Albumin Urine Creatinine 04/23/20 04/23/20 04/23/20 11:07 15:48 20:45 WBC RBC Hgb Hct MCV MCH MCHC RDW Plt Count Lymph % (Auto) Lymph # (Auto) Seg Neutrophils % Seg Neuts % (Manual) Lymphocytes % (Manual) Nucleated RBC % Seg Neutrophils # Seg Neutrophils # Man Lymphocytes # (Manual) Basophils # (Manual) PT INR D-Dimer Heparin Anti-Xa Level ABG pH ABG pO2 ABG HCO3 ABG O2 Saturation ABG Base Excess ABG Hemoglobin Sodium Potassium Chloride Carbon Dioxide BUN Creatinine Glucose POC Glucose 151 H 135 H 159 H Lactic Acid Calcium Phosphorus Magnesium Total Bilirubin Direct Bilirubin AST ALT Alkaline Phosphatase Lactate Dehydrogenase Troponin T C-Reactive Protein NT-Pro-B Natriuret Pep Total Protein Albumin Urine Creatinine 04/24/20 04/24/20 04/24/20 04:37 07:32 11:37 WBC RBC Hgb Hct MCV MCH MCHC RDW Plt Count Lymph % (Auto) Lymph # (Auto) Seg Neutrophils % Seg Neuts % (Manual) Lymphocytes % (Manual) Nucleated RBC % Seg Neutrophils # Seg Neutrophils # Man Lymphocytes # (Manual) Basophils # (Manual) PT INR D-Dimer Heparin Anti-Xa Level ABG pH ABG pO2 ABG HCO3 ABG O2 Saturation ABG Base Excess ABG Hemoglobin Sodium 150 H Potassium Chloride 115.2 H Carbon Dioxide BUN 69 H Creatinine 1.7 H Glucose 146 H POC Glucose 112 H 220 H Lactic Acid Calcium 8.0 L Phosphorus Magnesium Total Bilirubin 1.50 H Direct Bilirubin AST ALT Alkaline Phosphatase Lactate Dehydrogenase Troponin T C-Reactive Protein NT-Pro-B Natriuret Pep Total Protein 5.5 L Albumin 2.6 L Urine Creatinine 04/24/20 04/25/20 04/25/20 16:51 07:42 12:07 WBC RBC Hgb Hct MCV MCH MCHC RDW Plt Count Lymph % (Auto) Lymph # (Auto) Seg Neutrophils % Seg Neuts % (Manual) Lymphocytes % (Manual) Nucleated RBC % Seg Neutrophils # Seg Neutrophils # Man Lymphocytes # (Manual) Basophils # (Manual) PT INR D-Dimer Heparin Anti-Xa Level ABG pH ABG pO2 ABG HCO3 ABG O2 Saturation ABG Base Excess ABG Hemoglobin Sodium Potassium Chloride Carbon Dioxide BUN Creatinine Glucose POC Glucose 159 H 123 H 136 H Lactic Acid Calcium Phosphorus Magnesium Total Bilirubin Direct Bilirubin AST ALT Alkaline Phosphatase Lactate Dehydrogenase Troponin T C-Reactive Protein NT-Pro-B Natriuret Pep Total Protein Albumin Urine Creatinine 04/25/20 04/25/20 04/25/20 15:51 16:09 20:42 WBC RBC Hgb Hct MCV MCH MCHC RDW Plt Count Lymph % (Auto) Lymph # (Auto) Seg Neutrophils % Seg Neuts % (Manual) Lymphocytes % (Manual) Nucleated RBC % Seg Neutrophils # Seg Neutrophils # Man Lymphocytes # (Manual) Basophils # (Manual) PT INR D-Dimer 1259.67 H Heparin Anti-Xa Level ABG pH ABG pO2 ABG HCO3 ABG O2 Saturation ABG Base Excess ABG Hemoglobin Sodium Potassium Chloride Carbon Dioxide BUN Creatinine Glucose POC Glucose 188 H 221 H Lactic Acid Calcium Phosphorus Magnesium Total Bilirubin Direct Bilirubin AST ALT Alkaline Phosphatase Lactate Dehydrogenase Troponin T C-Reactive Protein NT-Pro-B Natriuret Pep Total Protein Albumin Urine Creatinine 04/25/20 04/25/20 04/25/20 22:53 Unknown Unknown WBC 13.5 H RBC 3.47 L Hgb 8.4 L Hct 26.6 L MCV 77 L MCH 24 L MCHC RDW 21.8 H Plt Count 74 L Lymph % (Auto) Lymph # (Auto) Seg Neutrophils % Seg Neuts % (Manual) 93.0 H Lymphocytes % (Manual) 4.0 L Nucleated RBC % Seg Neutrophils # Seg Neutrophils # Man 12.6 H Lymphocytes # (Manual) 0.5 L Basophils # (Manual) PT INR D-Dimer Heparin Anti-Xa Level ABG pH ABG pO2 ABG HCO3 ABG O2 Saturation ABG Base Excess ABG Hemoglobin Sodium 147 H Potassium Chloride 113.7 H 113.7 H Carbon Dioxide 20 L BUN 73 H 74 H Creatinine 1.8 H 1.8 H Glucose 241 H 184 H POC Glucose Lactic Acid Calcium 8.1 L 8.3 L Phosphorus Magnesium Total Bilirubin Direct Bilirubin AST ALT Alkaline Phosphatase 138 H Lactate Dehydrogenase Troponin T C-Reactive Protein NT-Pro-B Natriuret Pep Total Protein 5.4 L Albumin 2.3 L Urine Creatinine 04/26/20 04/26/20 04/26/20 04:32 08:17 10:13 WBC 15.2 H RBC 3.31 L Hgb 7.9 L Hct 25.9 L MCV 78 L MCH 24 L MCHC 30 L RDW 21.9 H Plt Count 70 L Lymph % (Auto) Lymph # (Auto) Seg Neutrophils % Seg Neuts % (Manual) 97.0 H Lymphocytes % (Manual) 1.0 L Nucleated RBC % Seg Neutrophils # Seg Neutrophils # Man 14.7 H Lymphocytes # (Manual) 0.2 L Basophils # (Manual) 0.2 H PT INR D-Dimer Heparin Anti-Xa Level ABG pH ABG pO2 ABG HCO3 ABG O2 Saturation ABG Base Excess ABG Hemoglobin Sodium 147 H Potassium Chloride 113.3 H Carbon Dioxide BUN 71 H Creatinine 1.8 H Glucose 197 H POC Glucose 190 H Lactic Acid Calcium 8.2 L Phosphorus Magnesium Total Bilirubin Direct Bilirubin AST ALT Alkaline Phosphatase Lactate Dehydrogenase Troponin T C-Reactive Protein NT-Pro-B Natriuret Pep Total Protein Albumin Urine Creatinine 04/26/20 04/26/20 04/26/20 10:52 14:41 17:03 WBC RBC Hgb Hct MCV MCH MCHC RDW Plt Count Lymph % (Auto) Lymph # (Auto) Seg Neutrophils % Seg Neuts % (Manual) Lymphocytes % (Manual) Nucleated RBC % Seg Neutrophils # Seg Neutrophils # Man Lymphocytes # (Manual) Basophils # (Manual) PT INR D-Dimer Heparin Anti-Xa Level ABG pH ABG pO2 ABG HCO3 ABG O2 Saturation ABG Base Excess ABG Hemoglobin Sodium 147 H Potassium Chloride 112.3 H Carbon Dioxide BUN 72 H Creatinine 1.8 H Glucose 211 H POC Glucose 189 H 156 H Lactic Acid Calcium 8.0 L Phosphorus Magnesium Total Bilirubin Direct Bilirubin AST ALT Alkaline Phosphatase Lactate Dehydrogenase Troponin T C-Reactive Protein NT-Pro-B Natriuret Pep Total Protein Albumin Urine Creatinine 04/26/20 04/27/20 04/27/20 21:18 08:06 08:06 WBC RBC 3.00 L Hgb 7.3 L Hct 23.3 L MCV 78 L MCH 24 L MCHC 31 L RDW 21.9 H Plt Count 58 L Lymph % (Auto) 6.6 L Lymph # (Auto) 0.7 L Seg Neutrophils % 88.8 H Seg Neuts % (Manual) Lymphocytes % (Manual) Nucleated RBC % Seg Neutrophils # 8.8 H Seg Neutrophils # Man Lymphocytes # (Manual) Basophils # (Manual) PT INR D-Dimer Heparin Anti-Xa Level ABG pH ABG pO2 ABG HCO3 ABG O2 Saturation ABG Base Excess ABG Hemoglobin Sodium 150 H Potassium Chloride 115.0 H Carbon Dioxide BUN 70 H Creatinine 2.0 H Glucose POC Glucose 177 H Lactic Acid Calcium 8.1 L Phosphorus Magnesium Total Bilirubin Direct Bilirubin AST ALT Alkaline Phosphatase Lactate Dehydrogenase Troponin T C-Reactive Protein NT-Pro-B Natriuret Pep Total Protein Albumin Urine Creatinine 04/27/20 04/27/20 04/27/20 08:06 12:53 12:53 WBC RBC 3.02 L Hgb 7.3 L Hct 23.4 L MCV 78 L MCH 24 L MCHC 31 L RDW 22.2 H Plt Count 59 L Lymph % (Auto) 9.1 L Lymph # (Auto) 0.6 L Seg Neutrophils % 86.3 H Seg Neuts % (Manual) Lymphocytes % (Manual) Nucleated RBC % Seg Neutrophils # Seg Neutrophils # Man Lymphocytes # (Manual) Basophils # (Manual) PT INR D-Dimer Heparin Anti-Xa Level ABG pH ABG pO2 ABG HCO3 ABG O2 Saturation ABG Base Excess ABG Hemoglobin Sodium 150 H 149 H Potassium Chloride 115.2 H 114.9 H Carbon Dioxide BUN 68 H 67 H Creatinine 2.0 H 2.0 H Glucose POC Glucose Lactic Acid Calcium 7.9 L 7.9 L Phosphorus Magnesium Total Bilirubin Direct Bilirubin AST ALT Alkaline Phosphatase Lactate Dehydrogenase Troponin T C-Reactive Protein NT-Pro-B Natriuret Pep Total Protein 5.4 L 5.4 L Albumin 2.5 L 2.7 L Urine Creatinine 04/27/20 04/27/20 04/28/20 21:16 23:06 00:13 WBC RBC Hgb Hct MCV MCH MCHC RDW Plt Count Lymph % (Auto) Lymph # (Auto) Seg Neutrophils % Seg Neuts % (Manual) Lymphocytes % (Manual) Nucleated RBC % Seg Neutrophils # Seg Neutrophils # Man Lymphocytes # (Manual) Basophils # (Manual) PT INR D-Dimer Heparin Anti-Xa Level ABG pH ABG pO2 ABG HCO3 ABG O2 Saturation ABG Base Excess ABG Hemoglobin Sodium Potassium Chloride Carbon Dioxide BUN Creatinine Glucose POC Glucose 66 L 60 L 66 L Lactic Acid Calcium Phosphorus Magnesium Total Bilirubin Direct Bilirubin AST ALT Alkaline Phosphatase Lactate Dehydrogenase Troponin T C-Reactive Protein NT-Pro-B Natriuret Pep Total Protein Albumin Urine Creatinine 04/28/20 04/28/20 04/28/20 01:04 06:30 06:30 WBC RBC 2.99 L Hgb 7.2 L Hct 22.9 L MCV 77 L MCH 24 L MCHC RDW 22.0 H Plt Count 50 L Lymph % (Auto) 9.4 L Lymph # (Auto) 0.6 L Seg Neutrophils % 85.3 H Seg Neuts % (Manual) Lymphocytes % (Manual) Nucleated RBC % Seg Neutrophils # Seg Neutrophils # Man Lymphocytes # (Manual) Basophils # (Manual) PT INR D-Dimer Heparin Anti-Xa Level ABG pH ABG pO2 ABG HCO3 ABG O2 Saturation ABG Base Excess ABG Hemoglobin Sodium 153 H Potassium Chloride 117.7 H Carbon Dioxide BUN 65 H Creatinine 2.1 H Glucose POC Glucose 59 L Lactic Acid Calcium 8.1 L Phosphorus Magnesium Total Bilirubin Direct Bilirubin AST ALT Alkaline Phosphatase Lactate Dehydrogenase Troponin T C-Reactive Protein NT-Pro-B Natriuret Pep Total Protein 5.4 L Albumin 2.5 L Urine Creatinine 04/28/20 04/28/20 04/28/20 11:10 11:10 11:10 WBC RBC Hgb Hct MCV MCH MCHC RDW Plt Count Lymph % (Auto) Lymph # (Auto) Seg Neutrophils % Seg Neuts % (Manual) Lymphocytes % (Manual) Nucleated RBC % Seg Neutrophils # Seg Neutrophils # Man Lymphocytes # (Manual) Basophils # (Manual) PT 23.9 H INR 2.12 H D-Dimer Heparin Anti-Xa Level ABG pH ABG pO2 ABG HCO3 ABG O2 Saturation ABG Base Excess ABG Hemoglobin Sodium Potassium Chloride Carbon Dioxide BUN Creatinine Glucose POC Glucose Lactic Acid Calcium Phosphorus Magnesium Total Bilirubin Direct Bilirubin AST ALT Alkaline Phosphatase Lactate Dehydrogenase 210 H Troponin T C-Reactive Protein NT-Pro-B Natriuret Pep 80014 H Total Protein 5.5 L Albumin Urine Creatinine 04/29/20 04/29/20 04/29/20 05:43 05:43 10:59 WBC RBC 3.10 L Hgb 7.4 L Hct 24.1 L MCV 78 L MCH 24 L MCHC 31 L RDW 22.5 H Plt Count 51 L Lymph % (Auto) 10.3 L Lymph # (Auto) 0.5 L Seg Neutrophils % 84.6 H Seg Neuts % (Manual) Lymphocytes % (Manual) Nucleated RBC % Seg Neutrophils # Seg Neutrophils # Man Lymphocytes # (Manual) Basophils # (Manual) PT INR D-Dimer Heparin Anti-Xa Level ABG pH ABG pO2 ABG HCO3 ABG O2 Saturation ABG Base Excess ABG Hemoglobin Sodium 155 H Potassium Chloride 119.8 H Carbon Dioxide 17 L BUN 65 H Creatinine 2.3 H Glucose POC Glucose 112 H Lactic Acid Calcium 8.2 L Phosphorus Magnesium Total Bilirubin 1.30 H Direct Bilirubin AST ALT Alkaline Phosphatase Lactate Dehydrogenase Troponin T C-Reactive Protein NT-Pro-B Natriuret Pep Total Protein 5.5 L Albumin 2.5 L Urine Creatinine 04/29/20 04/29/20 04/29/20 11:50 15:56 21:17 WBC RBC Hgb Hct MCV MCH MCHC RDW Plt Count Lymph % (Auto) Lymph # (Auto) Seg Neutrophils % Seg Neuts % (Manual) Lymphocytes % (Manual) Nucleated RBC % Seg Neutrophils # Seg Neutrophils # Man Lymphocytes # (Manual) Basophils # (Manual) PT INR D-Dimer Heparin Anti-Xa Level ABG pH ABG pO2 102.9 H ABG HCO3 18.7 L ABG O2 Saturation ABG Base Excess -5.7 L ABG Hemoglobin 7.5 L Sodium Potassium Chloride Carbon Dioxide BUN Creatinine Glucose POC Glucose 109 H 107 H Lactic Acid Calcium Phosphorus Magnesium Total Bilirubin Direct Bilirubin AST ALT Alkaline Phosphatase Lactate Dehydrogenase Troponin T C-Reactive Protein NT-Pro-B Natriuret Pep Total Protein Albumin Urine Creatinine 04/30/20 04/30/20 04/30/20 07:43 08:59 08:59 WBC RBC 3.51 L Hgb 8.3 L Hct 27.5 L MCV 79 L MCH 24 L MCHC 30 L RDW 22.8 H Plt Count 51 L Lymph % (Auto) 12.2 L Lymph # (Auto) 0.6 L Seg Neutrophils % 83.1 H Seg Neuts % (Manual) Lymphocytes % (Manual) Nucleated RBC % Seg Neutrophils # Seg Neutrophils # Man Lymphocytes # (Manual) Basophils # (Manual) PT INR D-Dimer Heparin Anti-Xa Level ABG pH ABG pO2 ABG HCO3 ABG O2 Saturation ABG Base Excess ABG Hemoglobin Sodium 154 H Potassium Chloride 118.9 H Carbon Dioxide 15 L BUN 67 H Creatinine 2.4 H Glucose 119 H POC Glucose 112 H Lactic Acid Calcium Phosphorus Magnesium Total Bilirubin 1.60 H Direct Bilirubin AST ALT Alkaline Phosphatase Lactate Dehydrogenase Troponin T C-Reactive Protein NT-Pro-B Natriuret Pep Total Protein 6.1 L Albumin 2.6 L Urine Creatinine 04/30/20 04/30/20 04/30/20 11:00 14:16 16:59 WBC RBC Hgb Hct MCV MCH MCHC RDW Plt Count Lymph % (Auto) Lymph # (Auto) Seg Neutrophils % Seg Neuts % (Manual) Lymphocytes % (Manual) Nucleated RBC % Seg Neutrophils # Seg Neutrophils # Man Lymphocytes # (Manual) Basophils # (Manual) PT INR D-Dimer Heparin Anti-Xa Level ABG pH ABG pO2 ABG HCO3 ABG O2 Saturation ABG Base Excess ABG Hemoglobin Sodium 158 H Potassium Chloride 122.9 H Carbon Dioxide 14 L BUN 68 H Creatinine 2.5 H Glucose 139 H POC Glucose 111 H 126 H Lactic Acid Calcium 8.0 L Phosphorus Magnesium Total Bilirubin Direct Bilirubin AST ALT Alkaline Phosphatase Lactate Dehydrogenase Troponin T C-Reactive Protein NT-Pro-B Natriuret Pep Total Protein Albumin Urine Creatinine 04/30/20 05/01/20 05/01/20 21:05 07:10 07:10 WBC RBC 3.02 L Hgb 7.2 L Hct 23.6 L MCV 78 L MCH 24 L MCHC 31 L RDW 23.0 H Plt Count 48 L Lymph % (Auto) 8.4 L Lymph # (Auto) 0.5 L Seg Neutrophils % 85.3 H Seg Neuts % (Manual) Lymphocytes % (Manual) Nucleated RBC % Seg Neutrophils # Seg Neutrophils # Man Lymphocytes # (Manual) Basophils # (Manual) PT INR D-Dimer Heparin Anti-Xa Level ABG pH ABG pO2 ABG HCO3 ABG O2 Saturation ABG Base Excess ABG Hemoglobin Sodium 155 H Potassium Chloride 118.9 H Carbon Dioxide 19 L BUN 68 H Creatinine 2.5 H Glucose 151 H POC Glucose 157 H Lactic Acid Calcium 8.3 L Phosphorus Magnesium Total Bilirubin 1.50 H Direct Bilirubin AST ALT Alkaline Phosphatase Lactate Dehydrogenase Troponin T C-Reactive Protein NT-Pro-B Natriuret Pep Total Protein 5.7 L Albumin 2.5 L Urine Creatinine 05/01/20 07:10 WBC RBC Hgb Hct MCV MCH MCHC RDW Plt Count Lymph % (Auto) Lymph # (Auto) Seg Neutrophils % Seg Neuts % (Manual) Lymphocytes % (Manual) Nucleated RBC % Seg Neutrophils # Seg Neutrophils # Man Lymphocytes # (Manual) Basophils # (Manual) PT 17.4 H INR 1.43 H D-Dimer Heparin Anti-Xa Level ABG pH ABG pO2 ABG HCO3 ABG O2 Saturation ABG Base Excess ABG Hemoglobin Sodium Potassium Chloride Carbon Dioxide BUN Creatinine Glucose POC Glucose Lactic Acid Calcium Phosphorus Magnesium Total Bilirubin Direct Bilirubin AST ALT Alkaline Phosphatase Lactate Dehydrogenase Troponin T C-Reactive Protein NT-Pro-B Natriuret Pep Total Protein Albumin Urine Creatinine
--- NOTE | 2020-05-01 14:39 | Progress Note ---
Assessment and Plan Assessment and plan: ---Acute respiratory failure Current Visit: Yes Status: Acute Plan to address problem: Continue oxygen supplementation --Acute on chronic systolic CHF (congestive heart failure) Current Visit: Yes Status: Acute Plan to address problem: Holding Lasix due to KIRT Will monitor daily weight, inputs and outputs. Monitor renal function closely Cardiology on board --KIRT on CKD Current Visit: Yes Status: Acute Plan to address problem: Had KIRT 2/2 vasomotor nephropathy Lasix given due to worsening pulm edema but Cr bumped. Hold lasix --Colitis Current Visit: Yes Status: Acute Plan to address problem: Resolved GI recommendations appreciated --Left sided pleural effusion Current Visit: No Status: Acute Plan to address problem: Lasix held due to worsening renal function Will get US thoracentesis when IR <1.5. Pulmonology consulted. --Arrhythmias Current Visit: Yes Status: Acute Plan to address problem: Initially started on amiodarone but discontinued due to elevated LFTs Noted to have pauses on telemetry. Metoprolol discontinued-awaiting cardiology recommendations at this time. Pacer placed at bedside Transfer patient to [facility] for now Holding apixaban due to thrombocytopenia Cardiology recommendations appreciated --Diabetes mellitus type 2 in nonobese Current Visit: No Status: Acute Plan to address problem: Lantus and sliding scale insulin. --Hyperkalemia and metabolic acidosis Current Visit: Yes Status: Acute Plan to address problem: Resolved --T12 compression fracture Current Visit: No Status: Likely chronic Plan to address problem: CT abdomen showed acute appearing T12 compression fracture 04/14. MRI thoracic without contrast ordered to further evaluate. 04/15. Patient is agitated and unable to get an MRI. 04/16. Awaiting MRI without contrast thoracic. Plan to use sedatives today. Informed RN. If positive for acute fracture, patient will need to be transferred for neurosurgery evaluation. 04/17. MRI thoracic and lumbar showed acute T12 compression fracture. Discussed case with [place] neurosurgery catalyst concentration operator who advised no acute intervention is necessary at this time-advised TLSO brace when patient is sitting or a mbulatory. He will need follow-up with Dr. Dalton Jack, Dr. Alan Henson, Dr. Tyson Clark [contact number [phone]] after discharge. ---Elevated LFTs Current Visit: Yes Status: Acute Plan to address problem: Improving US abdomen shows no acute pathology ---Infrarenal aortic aneurysm Current Visit: No Status: Acute Plan to address problem: 3.8 cm in diameter Needs to follow-up with vascular surgery at discharge for monitoring -Shock Current Visit: No Status: Acute Plan to address problem: Improved VQ scan to rule out PE - negative -- Hypernatremia Current Visit: No Status: Acute Plan to address problem: Due to poor intake. NG tube placement ordered. Patient continues to refuse NG tube placement. Needs PEG placement. GI consulted Start water via NG tube 400cc q8 hours Trend sodium -- DVT prophylaxis Current Visit: No Status: Acute Plan to address problem: Hold heparin for now --Full code status Current Visit: No Status: Acute Disposition-home with hospice as per patient son when stable 04/11. Patient seen and examined at bedside this morning. Patient is on BiPAP. Patient is eager to go home. Otherwise denies any chest pain or palpitations. Patient CT showed possible compression fracture of T12, it is unknown if this is new. We will get MRI without contrast of the thoracic and lumbar to further evaluate. If patient actually has an acute compression fracture, he will need to have a neurosurgery evaluation so will need to be transferred to another facility for this. Otherwise, patient continue to monitor patient's respiratory status while in the IMCU. Patient reportedly failed a swallow evaluation and will need to have an NG tube placement. Tried to call son on number provided in the chart and left a message. Awaiting callback. Labs reviewed-patient has elevated inflammatory [id number]-[id number], LDH. COVID-19 test has been ordered. Started patient on steroids. Ordered stat BMP, ABG, D-dimer, proBNP, ferritin, LDH. 04/12. COVID -19 test is negative. His breathing has improved so was placed on nasal cannula. Cardiology adjusted meds today. He failed swallow evaluation yesterday. He requests for food. Will reattempt swallow evaluation. Speech therapy consult. 04/13. Overnight, he developed VT and was started on amiodarone. HR better this AM. Cardiology will review medications. Patient seen and examined at bedside this AM. He requests for food. He failed a repeat speech evaluation and will need barium swallow. May need PEG placement if he fails. NG tube in place. Vitals reviewed 04/14. Heart rate improved. Remains n.p.o. with NG tube feeds. Video swallow evaluation shows mild abnormal study. Speech therapist to see patient. Patient has not been able to have an MRI of the back due to agitation. He had a CT during the admission that showed possible compression fracture of T12 but this has not been fully evaluated due to patient's ongoing conditions. Labs reviewed-renal function is worse. Discontinue Lasix. 04/15. Has been started on a diet and is tolerating. He pulled out his NG tube last night. Okay to leave NG tube for now. Plan to get an MRI performed today with sedative to evaluate T12 fracture. Patient denies any back pain. Renal function slightly improved today after Lasix was discontinued. Continue IV hydration. Nephrology recommendations appreciated 04/16. He feels better today. MRI could not be done yesterday. Hopefully patient can have an MRI done today. Creatinine 3.1 today. Patient will need placement but will need to have evaluation of possible T12 fracture prior to discharge 04/17. MRI thoracic and lumbar showed acute T12 compression fracture. Discussed case with [place] neurosurgery catalyst concentration operator who advised no acute intervention is necessary at this time-advised TLSO brace when patient is sitting or amb ulatory. He will need follow-up with Dr. Dalton Jack, Dr. Alan Henson, Dr. Tyson Clark [contact number [phone]] after discharge. 04/18. Await Nephrology recs for d/c plans 04/19/2020. Patient reportedly with choking/coughing with swallowing. We will change to n.p.o. status right now. Speech reevaluation. Check chest x-ray to rule out aspiration pneumonia. Await nephrology recommendations for discharge. Creatinine slowly improving. CT of abdomen negative for hydronephrosis. BUN increasing. Therefore, we will check Hemoccult of stool to rule out GI bleed. Hemoglobin has been stable. 04/20/2020. Repeat chest x-ray reveals worsening bibasilar opacities. Pulmonary consulted. Doppler of left upper extremity for swelling. PT evaluation recommends subacute rehab 04/21/2020. Await pulmonary consultation for worsening bibasilar opacities. Doppler of left upper extremity pending. PT evaluation recommends subacute rehab. Creatinine has improved to near baseline of 1.8. Nephrology following 04/22/2020. Pulmonary sees no need for antibiotics or further evaluation of bibasilar opacities with CT scan. Continue current COPD treatment. Beta blockers increase for A. fib per cardiology. Await Doppler left upper extremity. PT evaluation recommends subacute rehab but case management reports patient's son Haseeb [phone]. Hsaeeb wants patient to return home with [facility]. 04/23/2020. Continue beta-blockers for atrial fibrillation per cardiology. Await left upper extremity Doppler ultrasound for left upper extremity swelling. PT evaluation recommends subacute rehab but case management reports patient's son Haseeb [phone]. Haseeb wants patient to return home with [facility]. Creatinine appears to be improved to baseline. Anticipate discharge in the next 1 to 2 days. 04/24/2020. Continue beta-blockers for atrial fibrillation per cardiology. Await left upper extremity Doppler ultrasound for left upper extremity swelling. Haseeb (son [phone]) wants patient to return home with [facility]. Creatinine appears to be improved to baseline. Patient now with hypernatremia. ?Tenuous IV fluid hydration--defer to nephrology. 04/25. Blood pressure low this morning but subsequently improved with slow bolus. Sodium today is 150. Patient is dehydrated and is asking for water to drink. I have discussed with RN to ensure patient gets enough water to help with dehydration. His heart rate is controlled and cardiology has adjusted the medication today due to slight hypotension.-Metoprolol now 25 every 8 hours. He is alert and oriented x3 this morning and is able to make needs known. Check BMP every 8 hours for now. Nephrology following 04/26. Transferred to the ICU due to persisted hypotension. WBC trending up. Started on antibiotics. Aetiology of shock could be sepsis. Other differentials - cardiogenic vs obstructive (has been on eliquis 2.5mg BID so not likely. His ddimer is elevated and he cannot get contrast - will get VQ scan. Critical care to see. Blood culture ordered. Repeat labs in AM 04/27. On levophed. Leukocytosis better. Check procalcitonin. On antibiotics. Rest of labs shows anemia and thrombocytopenia. Will dc eliquis. Lasix given but Cr bump noted. Holding lasix for now. Repeat chest xray to evaluate infiltrate and effusion 04/28. BP stable so he was transferred to telemetry. He failed swallow evaluation. Place an NG tube and start free water via NG tube. DC D5w. He will need GI evaluation for PEG tube placement. Lasix was given for worsening infiltrate and effusion but Cr bumped. Awaiting repeat chest xray to evaluate for infiltrate. Ordered INR and BNP. May need US thoracentesis for left pleural effusion. Will get pulm consult. Labs reviewed- still has hypernatremia - nephrology following. heme consult for thrombocytopenia. GI consulted for PEG tube placement 04/29. NG tube not yet placed. Sodium 155. Needs to be started on water via NG tube. No IVF as he has systolic CHF. Consultants notes reviewed. 04/30. Patient continues to refuse NG tube. Patient noted to have bradycardia this a.m. down to 30s-40s. Also has pauses up to 2 seconds this AM. Metoprolol has been discontinued. Patient needed 1 dose of atropine with slight improvement. Pacer placed at bedside. Patient was transferred to the IM for close monitoring. Cardiology has been paged and awaiting callback. Discussed with RN. Plan for PEG tube placement as per GI. Maintain n.p.o. for now 05/01. Now in the ICU on pressors due to hypotension. GI was consulted as patient has failed multiple swallow evaluations during this admission and GI plans to place a PEG tube when cardiac status is stable. Cardiology to evaluate today. Heart rate remains in the 40s to 50s. History Interval history: Patient seen and examined at bedside this morning He is awake and alert Blood pressure better on Levophed Hospitalist Physical - Physical exam Narrative exam: VITAL SIGNS: Reviewed. GENERAL: More awake HEAD: No signs of head trauma. EYES: Pupils are equal. Extraocular motions intact. EARS: Hearing grossly intact. MOUTH: Oropharynx is normal. NECK: No adenopathy, no JVD. CHEST: Rales more at the bases. CARDIAC: Regular rate and rhythm. S1 and S2, without murmurs, gallops, or rubs. VASCULAR: No Edema. Peripheral pulses normal and equal in all extremities. ABDOMEN: Soft, non tender and non distended. No rebound or guarding, and no masses palpated. Bowel Sounds normal. MUSCULOSKELETAL: Good range of motion of all major joints. Extremities without clubbing, cyanosis or edema. NEUROLOGIC EXAM: More awake PSYCHIATRIC: Stable mood SKIN: No obvious lesions - Constitutional Vitals: Temp Pulse Resp BP Pulse Ox 98.4 F 52 L 12 175/156 100 05/01/20 03:26 05/01/20 08:46 05/01/20 08:46 05/01/20 08:46 05/01/20 08:46 HEART Score - HEART Score Troponin: Troponin T 0.081 ng/mL (0.00-0.029) H 04/10/20 20:04 Results - Labs CBC & Chem 7: 05/01/20 07:10 05/01/20 07:10 Labs: Laboratory Last Values WBC 5.5 K/mm3 (4.5-11.0) 05/01/20 07:10 RBC 3.02 M/mm3 (3.65-5.03) L 05/01/20 07:10 Hgb 7.2 gm/dl (11.8-15.2) L 05/01/20 07:10 Hct 23.6 % (35.5-45.6) L 05/01/20 07:10 MCV 78 fl (84-94) L 05/01/20 07:10 MCH 24 pg (28-32) L 05/01/20 07:10 MCHC 31 % (32-34) L 05/01/20 07:10 RDW 23.0 % (13.2-15.2) H 05/01/20 07:10 Plt Count 48 K/mm3 (140-440) L 05/01/20 07:10 Lymph % (Auto) 8.4 % (13.4-35.0) L 05/01/20 07:10 [place] % (Auto) 4.0 % (0.0-7.3) 05/01/20 07:10 Eos % (Auto) 1.4 % (0.0-4.3) 05/01/20 07:10 Baso % (Auto) 0.9 % (0.0-1.8) 05/01/20 07:10 Lymph # (Auto) 0.5 K/mm3 (1.2-5.4) L 05/01/20 07:10 [place] # (Auto) 0.2 K/mm3 (0.0-0.8) 05/01/20 07:10 Eos # (Auto) 0.1 K/mm3 (0.0-0.4) 05/01/20 07:10 Baso # (Auto) 0.0 K/mm3 (0.0-0.1) 05/01/20 07:10 Add Manual Diff Complete 04/26/20 10:13 Total Counted 100 04/26/20 10:13 Seg Neutrophils % 85.3 % (40.0-70.0) H 05/01/20 07:10 Seg Neuts % (Manual) 97.0 % (40.0-70.0) H 04/26/20 10:13 Band Neutrophils % 0 % 04/26/20 10:13 Lymphocytes % (Manual) 1.0 % (13.4-35.0) L 04/26/20 10:13 Reactive Lymphs % (Man) 0 % 04/26/20 10:13 Monocytes % (Manual) 1.0 % (0.0-7.3) 04/26/20 10:13 Eosinophils % (Manual) 0 % (0.0-4.3) 04/26/20 10:13 Basophils % (Manual) 1.0 % (0.0-1.8) 04/26/20 10:13 Metamyelocytes % 0 % 04/26/20 10:13 Myelocytes % 0 % 04/26/20 10:13 Promyelocytes % 0 % 04/26/20 10:13 Blast Cells % 0 % 04/26/20 10:13 Nucleated RBC % Not Reportable 04/26/20 10:13 Seg Neutrophils # 4.7 K/mm3 (1.8-7.7) 05/01/20 07:10 Seg Neutrophils # Man 14.7 K/mm3 (1.8-7.7) H 04/26/20 10:13 Band Neutrophils # 0.0 K/mm3 04/26/20 10:13 Lymphocytes # (Manual) 0.2 K/mm3 (1.2-5.4) L 04/26/20 10:13 Abs React Lymphs (Man) 0.0 K/mm3 04/26/20 10:13 Monocytes # (Manual) 0.2 K/mm3 (0.0-0.8) 04/26/20 10:13 Eosinophils # (Manual) 0.0 K/mm3 (0.0-0.4) 04/26/20 10:13 Basophils # (Manual) 0.2 K/mm3 (0.0-0.1) H 04/26/20 10:13 Metamyelocytes # 0.0 K/mm3 04/26/20 10:13 Myelocytes # 0.0 K/mm3 04/26/20 10:13 Promyelocytes # 0.0 K/mm3 04/26/20 10:13 Blast Cells # 0.0 K/mm3 04/26/20 10:13 WBC Morphology Not Reportable 04/26/20 10:13 Hypersegmented Neuts Not Reportable 04/26/20 10:13 Hyposegmented Neuts Not Reportable 04/26/20 10:13 Hypogranular Neuts Not Reportable 04/26/20 10:13 Smudge Cells Not Reportable 04/26/20 10:13 Toxic Granulation Not Reportable 04/26/20 10:13 Toxic Vacuolation Not Reportable 04/26/20 10:13 Dohle Bodies Not Reportable 04/26/20 10:13 Pelger-Huet Anomaly Not Reportable 04/26/20 10:13 Barby Rods Not Reportable 04/26/20 10:13 Platelet Estimate Consistent w auto 04/26/20 10:13 Clumped Platelets Not Reportable 04/26/20 10:13 Plt Clumps, EDTA Not Reportable 04/26/20 10:13 Large Platelets Not Reportable 04/26/20 10:13 Giant Platelets Not Reportable 04/26/20 10:13 Platelet Satelliting Not Reportable 04/26/20 10:13 Plt Morphology Comment Not Reportable 04/26/20 10:13 RBC Morphology Not Reportable 04/26/20 10:13 Dimorphic RBCs Not Reportable 04/26/20 10:13 Polychromasia Not Reportable 04/26/20 10:13 Hypochromasia 1+ 04/26/20 10:13 Poikilocytosis Not Reportable 04/26/20 10:13 Anisocytosis 1+ 04/26/20 10:13 Microcytosis Not Reportable 04/26/20 10:13 Macrocytosis Not Reportable 04/26/20 10:13 Spherocytes Not Reportable 04/26/20 10:13 Pappenheimer Bodies Not Reportable 04/26/20 10:13 Sickle Cells Not Reportable 04/26/20 10:13 Target Cells Not Reportable 04/26/20 10:13 Tear Drop Cells Not Reportable 04/26/20 10:13 Ovalocytes Not Reportable 04/26/20 10:13 Helmet Cells Not Reportable 04/26/20 10:13 [place] Bodies Not Reportable 04/26/20 10:13 [place] Rings Not Reportable 04/26/20 10:13 [place] Cells Few 04/26/20 10:13 Bite Cells Not Reportable 04/26/20 10:13 Crenated Cell Not Reportable 04/26/20 10:13 Elliptocytes 1+ 04/26/20 10:13 Acanthocytes (Spur) Not Reportable 04/26/20 10:13 Rouleaux Not Reportable 04/26/20 10:13 Hemoglobin C Crystals Not Reportable 04/26/20 10:13 Schistocytes Few 04/26/20 10:13 Malaria parasites Not Reportable 04/26/20 10:13 Willie Bodies Not Reportable 04/26/20 10:13 Hem Pathologist Commnt No 04/26/20 10:13 PT 17.4 Sec. (12.2-14.9) H 05/01/20 07:10 INR 1.43 (0.87-1.13) H 05/01/20 07:10 D-Dimer 1259.67 ng/mlDDU (0-234) H 04/25/20 16:09 Heparin Anti-Xa Level 0.35 U.I./ml (0.3-0.7) 04/13/20 05:06 Heparin Anti-Xa, Unfract Negative (Negative) 04/17/20 22:45 ABG pH 7.387 pH Units (7.350-7.450) 04/29/20 11:50 ABG pCO2 31.8 mm Hg 04/29/20 11:50 ABG pO2 102.9 mm Hg (80.0-90.0) H 04/29/20 11:50 ABG HCO3 18.7 mmol/L (20.0-26.0) L 04/29/20 11:50 ABG O2 Saturation 97.8 % (95.0-99.0) 04/29/20 11:50 ABG O2 Content 10.2 (0.0-44) 04/29/20 11:50 ABG Base Excess -5.7 mmol/L (-2.0-3.0) L 04/29/20 11:50 ABG Hemoglobin 7.5 gm/dl (14.0-18.0) L 04/29/20 11:50 ABG Carboxyhemoglobin 2.2 % (0.0-5.0) 04/29/20 11:50 ABG Methemoglobin 0.4 % (0.0-1.5) 04/29/20 11:50 Oxyhemoglobin 95.3 % (95.0-99.0) 04/29/20 11:50 FiO2 32 % 04/29/20 11:50 Sodium 155 mmol/L (137-145) H 05/01/20 07:10 Potassium 3.9 mmol/L (3.6-5.0) 05/01/20 07:10 Chloride 118.9 mmol/L (98-107) H 05/01/20 07:10 Carbon Dioxide 19 mmol/L (22-30) L 05/01/20 07:10 Anion Gap 21 mmol/L 05/01/20 07:10 BUN 68 mg/dL (9-20) H 05/01/20 07:10 Creatinine 2.5 mg/dL (0.8-1.3) H 05/01/20 07:10 Estimated GFR 25 ml/min 05/01/20 07:10 BUN/Creatinine Ratio 27 % 05/01/20 07:10 Glucose 151 mg/dL (75-100) H 05/01/20 07:10 POC Glucose 157 mg/dL (70-105) H 04/30/20 21:05 Lactic Acid 3.00 mmol/L (0.7-2.0) H* 04/12/20 06:22 Calcium 8.3 mg/dL (8.4-10.2) L 05/01/20 07:10 Phosphorus 5.60 mg/dL (2.5-4.5) H 04/10/20 22:50 Magnesium 2.40 mg/dL (1.7-2.3) H 04/10/20 22:50 Ferritin 135.1 ng/mL (30.0-300.0) 04/11/20 15:11 Total Bilirubin 1.50 mg/dL (0.1-1.2) H 05/01/20 07:10 Direct Bilirubin 0.6 mg/dL (0-0.2) H 04/15/20 04:56 Indirect Bilirubin 0.3 mg/dL 04/15/20 04:56 AST 22 units/L (5-40) 05/01/20 07:10 ALT 26 units/L (7-56) 05/01/20 07:10 Alkaline Phosphatase 82 units/L (35-129) 05/01/20 07:10 Lactate Dehydrogenase 210 units/L (91-180) H 04/28/20 11:10 Troponin T 0.081 ng/mL (0.00-0.029) H 04/10/20 20:04 C-Reactive Protein 5.60 mg/dL (0.00-1.30) H 04/10/20 20:51 NT-Pro-B Natriuret Pep 56890 pg/mL (0-900) H 04/28/20 11:10 Total Protein 5.7 g/dL (6.3-8.2) L 05/01/20 07:10 Albumin 2.5 g/dL (3.9-5) L 05/01/20 07:10 Albumin/Globulin Ratio 0.8 % 05/01/20 07:10 Triglycerides 113 mg/dL (2-149) 04/10/20 20:04 Cholesterol 178 mg/dL (50-199) 04/10/20 20:04 LDL Cholesterol Direct 123 mg/dL (50-130) 04/10/20 20:04 HDL Cholesterol 41 mg/dL (40-59) 04/10/20 20:04 Cholesterol/HDL Ratio 4.34 % 04/10/20 20:04 Serotonin Release Assay See scanned result 04/17/20 22:45 Procalcitonin 0.38 ng/mL (<0.15) 04/27/20 09:30 TSH 3.640 mlU/mL (0.270-4.200) 04/13/20 10:06 Urine Color Yellow (Yellow) 04/11/20 Unknown Urine Turbidity Clear (Clear) 04/11/20 Unknown Urine pH 5.0 (5.0-7.0) 04/11/20 Unknown Ur Specific [place] 1.009 (1.003-1.030) 04/11/20 Unknown Urine Protein <15 mg/dl mg/dL (Negative) 04/11/20 Unknown Urine Glucose (UA) Neg mg/dL (Negative) 04/11/20 Unknown Urine Ketones Neg mg/dL (Negative) 04/11/20 Unknown Urine Blood Neg (Negative) 04/11/20 Unknown Urine Nitrite Neg (Negative) 04/11/20 Unknown Urine Bilirubin Neg (Negative) 04/11/20 Unknown Urine Urobilinogen < 2.0 mg/dL (<2.0) 04/11/20 Unknown Ur Leukocyte Esterase Neg (Negative) 04/11/20 Unknown Urine WBC (Auto) 1.0 /HPF (0.0-6.0) 04/11/20 Unknown Urine RBC (Auto) 2.0 /HPF (0.0-6.0) 04/11/20 Unknown U Epithel Cells (Auto) < 1.0 /HPF (0-13.0) 04/11/20 Unknown Hyaline Casts 3 /LPF 04/11/20 Unknown Urine Mucus Few /HPF 04/11/20 Unknown Urine Eosinophils None seen (None Seen) 04/11/20 Unknown Urine Creatinine 35.3 mg/dL (0.1-20.0) H 04/11/20 Unknown Urine Sodium 92 mmol/L 04/11/20 Unknown Heparin-induced Plt Ab Negative (Negative) 04/17/20 22:45 UF Heparin High Dose 0 % Release 04/17/20 22:45 CHERYL UFH Low Dose 0.1 0 % Release 04/17/20 22:45 CHERYL UFH Low Dose 0.5 0 % Release 04/17/20 22:45 Coronavirus (PCR) Negative (Negative) 04/29/20 10:59 Hepatitis A IgM Ab Non-reactive (NonReactive) 04/12/20 20: Hep Bs Antigen Non-reactive (Negative) 04/12/20 20:23 Hep B Core IgM Ab Non-reactive (NonReactive) 04/12/20 20:23 Hepatitis C Antibody Non-reactive (NonReactive) 04/12/20 20:23 Microbiology: Microbiology 04/26/20 18:21 Peripheral/Venous Blood Culture - Preliminary NO GROWTH AFTER 4 DAYS 04/26/20 18:21 Peripheral/Venous Blood Culture - Preliminary NO GROWTH AFTER 4 DAYS Gay/IV: Voiding Method Condom Catheter IV Catheter Type [Right Peripheral IV External Jugular] IV Catheter Type [Left Peripheral IV External Jugular] IV Catheter Type [Right Upper PICC Line arm] IV Catheter Type [Left Wrist] Peripheral IV IV Catheter Type [Right INT / Saline Lock Forearm] IV Catheter Type [Right Wrist] INT / Saline Lock Active Medications - Current Medications Current Medications: Generic Name Dose Route Start Last Admin Trade Name Freq PRN Reason Stop Dose Admin Acetaminophen 650 mg 04/11/20 01:26 04/23/20 23:13 Tylenol PO 650 mg Q6H PRN Administration Pain MILD(1-3)/Fever >100.5/MANCILLA Lipase/Protease/Amylase 1 each 04/11/20 14:[address] 10,500 Unit FEEDTUBE PRN PRN For Clogged Feeding Tube Arformoterol Tartrate 15 mcg 04/20/20 20:00 05/01/20 08:23 Brovana Nebu IH 15 mcg Q12HRT PRAVIN Administration Budesonide 0.5 mg 04/20/20 20:00 05/01/20 08:23 Pulmicort IH 0.5 mg Q12HRT PRAVIN Administration Norepinephrine 4 mg in 250 mls @ 7.5 mls/hr 04/25/20 17:00 05/01/20 10:30 Levophed Drip 4 Mg/Ns 250 Ml IV 5 mcg/min TITR PRAVIN 18.75 mls/hr Titration Protocol 2 MCG/MIN Dextrose 1,000 mls @ 42 mls/hr 04/30/20 17:00 04/30/20 17:20 D5w IV 42 mls/hr DIRECT PRAVIN Administration Insulin Glargine 10 units 04/16/20 22:00 04/30/20 22:00 Lantus SUB-Q Not Given QHS [facility] Insulin Human Lispro 0 unit 04/16/20 16:30 05/01/20 10:04 Humalog SUB-Q Not Given ACHS [facility] Protocol Magnesium Hydroxide 30 ml 04/11/20 01:26 Milk Of Magnesia PO Q4H PRN Constipation Midodrine 10 mg 05/01/20 16:00 Proamatine PO TID@0800,1200,1600 [facility] Ondansetron HCl 4 mg 04/25/20 04:53 04/25/20 05:25 Zofran IV 4 mg Q8H PRN Administration Nausea And Vomiting Simple Syrup 15 ml 04/11/20 14:22 Simple Syrup FEEDTUBE PRN PRN Hypoglycemia Simple Syrup 30 ml 04/11/20 14:22 Simple Syrup FEEDTUBE PRN PRN Hypoglycemia Sodium Bicarbonate 325 mg 04/11/20 14:22 Sodium Bicarbonate FEEDTUBE PRN PRN For Clogged Feeding Tube Sodium Chloride 10 ml 04/11/20 10:00 04/30/20 21:23 Sodium Chloride Flush Syringe 10 Ml IV Not Given BID PRAVIN Sodium Chloride 10 ml 04/11/20 01:26 Sodium Chloride Flush Syringe 10 Ml IV PRN PRN LINE FLUSH Nutrition/Malnutrition Assess - Dietary Evaluation Nutrition/Malnutrition Findings: Nutrition Notes Start: 04/11/20 13 :41 Freq: Status: Active Protocol: Document 04/28/20 10:09 CW (Rec: 04/28/20 10:23 CW [email or web address]) Co-Sign 04/28/20 10:09 LM Nutrition Notes Initial or Follow up Reassessment Current Diagnosis Acute Kidney Injury,CKD(stage I-IV),COPD,Coronary Artery Disease,Diabetes,Hypertension, Heart Failure Other Pertinent Diagnosis [place], Crohn's disease, seizure, colitis Current Diet NPO Labs/Tests BUN 65 Cr 2.1 Pertinent Medications Reviewed Height 5 ft 7 in Weight 64.4 kg [place] Body Weight (kg) 67.27 BMI 22.2 Subjective/Other Information SPL reported aspiration risk on 04/27. Pt has been NPO since 04/26. Consult for TF. Percent of energy/protein needs met: 0%/0% Burn Absent Trauma Absent Difficulty In Swallowing,Chewing Current % PO Negligible Minimum of two criteria No Energy Intake (non-severe) <75% Estimated Energy Requirement >7 days #1 Nutrition Diagnosis Inadequate oral intake Diagnosis Progress(for reassessment Continues documentation) Is patient on ventilator? No Is Patient Ambulatory and/or Out of Bed No REE-([facility]-confined to bed) 2706.314 Calculation Used for Recommendations [facility] Additional Notes Protein Needs: 52-78 g (0.8-1. 2 g/kg) Fluid Needs: 1 mL/kcal Nutrition Intervention Change Diet Order: TF Nutrition Support: Nepro 1.2 at 35 mls/hr Flush 250ml q4h for hypernatremia Flush 150ml q4h once resolved Kcal 1,512 Protein (gm) 68 Fluid (mL) 610 Goal #1 Meet at least 75% of energy an protein needs via TF Anticipated Discharge Needs: Unable to determine at this time Follow-Up By: 05/01/20 Additional Comments FU for TF start and tolerance
--- NOTE | 2020-05-01 15:20 | Gastroenterology Progress Note ---
Assessment and Plan GI: pt with multiple medical issues, recent v-tacc, needing thoracenthesis, GI consulted for peg - will consider peg when stable and cleared by pulmonary and Cardiology - other issues per primary team - will follow Subjective Date of service: 05/01/20 Principal diagnosis: CHF Interval history: - no GI issues overnight Objective - Constitutional Vitals: Temp Pulse Resp BP Pulse Ox 98.4 F 52 L 12 175/156 100 05/01/20 03:26 05/01/20 08:46 05/01/20 08:46 05/01/20 08:46 05/01/20 08:46 General appearance: no acute distress - EENT Eyes: PERRL - Respiratory Respiratory: bilateral: rhonchi - Cardiovascular Rhythm: regular Heart Sounds: Present: S1 & S2 - Gastrointestinal General gastrointestinal: Present: soft, non-tender, non-distended - Labs CBC & Chem 7: 05/01/20 07:10 05/01/20 07:10 Labs: Laboratory Results - last 24 hr 04/30/20 04/30/20 04/30/20 14:16 16:59 21:05 WBC RBC Hgb Hct MCV MCH MCHC RDW Plt Count Lymph % (Auto) [place] % (Auto) Eos % (Auto) Baso % (Auto) Lymph # (Auto) [place] # (Auto) Eos # (Auto) Baso # (Auto) Seg Neutrophils % Seg Neutrophils # PT INR Sodium 158 H Potassium 4.6 Chloride 122.9 H Carbon Dioxide 14 L Anion Gap 26 BUN 68 H Creatinine 2.5 H Estimated GFR BUN/Creatinine Ratio Glucose 139 H POC Glucose 126 H 157 H Calcium 8.0 L Total Bilirubin AST ALT Alkaline Phosphatase Total Protein Albumin Albumin/Globulin Ratio 05/01/20 05/01/20 05/01/20 07:10 07:10 07:10 WBC 5.5 RBC 3.02 L Hgb 7.2 L Hct 23.6 L MCV 78 L MCH 24 L MCHC 31 L RDW 23.0 H Plt Count 48 L Lymph % (Auto) 8.4 L [place] % (Auto) 4.0 Eos % (Auto) 1.4 Baso % (Auto) 0.9 Lymph # (Auto) 0.5 L [place] # (Auto) 0.2 Eos # (Auto) 0.1 Baso # (Auto) 0.0 Seg Neutrophils % 85.3 H Seg Neutrophils # 4.7 PT 17.4 H INR 1.43 H Sodium 155 H Potassium 3.9 Chloride 118.9 H Carbon Dioxide 19 L Anion Gap 21 BUN 68 H Creatinine 2.5 H Estimated GFR 25 BUN/Creatinine Ratio 27 Glucose 151 H POC Glucose Calcium 8.3 L Total Bilirubin 1.50 H AST 22 ALT 26 Alkaline Phosphatase 82 Total Protein 5.7 L Albumin 2.5 L Albumin/Globulin Ratio 0.8
[2020-05-01] MEDS: MIDODRINE 5 MG TAB PO SCH (15:36)
[2020-05-01] MEDS: INSULIN GLARGINE 100 UNITS/ML SUB-Q SCH (21:50)
[2020-05-02] MEDS: DEXTROSE 5% IN WATER 1,000 ML IV SCH (00:41)
[2020-05-02 05:50] LABS: Basophils # (Auto) 0.1 K/mm3 (0.0-0.1); Basophils % (Auto) 1.4 % (0.0-1.8); Eosinophils # (Auto) 0.1 K/mm3 (0.0-0.4); Eosinophils % (Auto) 1.1 % (0.0-4.3); Lymphocytes # (Auto) 0.5 K/mm3 (1.2-5.4); Lymphocytes % (Auto) 11.5 % (13.4-35.0); Mean Corpuscular HGB Conc 32 % (32-34); Mean Corpuscular Volume 77 fl (84-94); Monocytes # (Auto) 0.2 K/mm3 (0.0-0.8); Monocytes % (Auto) 3.8 % (0.0-7.3); Red Blood Count 2.76 M/mm3 (3.65-5.03)
[2020-05-02 05:58] LABS: Platelet Count 43 K/mm3 (140-440); Red Cell Distribution Width 22.6 % (13.2-15.2)
[2020-05-02 06:00] LABS: Hematocrit 21.3 % (35.5-45.6); Hemoglobin 6.7 gm/dl (11.8-15.2)
[2020-05-02] MEDS ORDERED: SODIUM CHLORIDE 0.9% 500 ML 500 ML IV ONE (06:07)
[2020-05-02 06:14] LABS: Albumin 2.4 g/dL (3.9-5); Calcium 8.4 mg/dL (8.4-10.2)
[2020-05-02] MEDS: BUDESONIDE 0.5 MG/2 ML NEBU IH SCH ×2 (07:33→19:57)
[2020-05-02] MEDS: ARFORMOTEROL 15 MCG/2 ML NEBU IH SCH ×2 (07:33→19:57)
--- NOTE | 2020-05-02 09:04 | Gastroenterology Progress Note ---
Assessment and Plan GI: pt with multiple medical issues, recent v-tacc, needing thoracenthesis, GI consulted for peg - will consider peg when stable and cleared by pulmonary and Cardiology - other issues per primary team - will sign off for now, please recall when stable for peg Subjective Date of service: 05/02/20 Principal diagnosis: CHF Interval history: - no GI issues overnight Objective - Constitutional Vitals: Temp Pulse Resp BP Pulse Ox 97.9 F 77 32 H 112/50 98 05/02/20 08:00 05/02/20 08:16 05/02/20 08:16 05/02/20 08:16 05/02/20 08:16 General appearance: no acute distress - EENT Eyes: PERRL - Respiratory Respiratory: bilateral: rhonchi - Cardiovascular Rhythm: regular Heart Sounds: Present: S1 & S2 - Gastrointestinal General gastrointestinal: Present: soft, non-tender, non-distended - Labs CBC & Chem 7: 05/02/20 05:07 05/02/20 05:07 Labs: Laboratory Results - last 24 hr 05/01/20 05/02/20 05/02/20 22:13 05:07 05:07 WBC 4.5 RBC 2.76 L Hgb 6.7 L Hct 21.3 L MCV 77 L MCH 24 L MCHC 32 RDW 22.6 H Plt Count 43 L Lymph % (Auto) 11.5 L [place] % (Auto) 3.8 Eos % (Auto) 1.1 Baso % (Auto) 1.4 Lymph # (Auto) 0.5 L [place] # (Auto) 0.2 Eos # (Auto) 0.1 Baso # (Auto) 0.1 Seg Neutrophils % 82.2 H Seg Neutrophils # 3.7 Sodium 154 H Potassium 3.7 Chloride 120.4 H Carbon Dioxide 15 L Anion Gap 22 BUN 67 H Creatinine 2.6 H Estimated GFR 24 BUN/Creatinine Ratio 26 Glucose 179 H POC Glucose 171 H Calcium 8.4 Total Bilirubin 1.30 H AST 19 ALT 22 Alkaline Phosphatase 77 Total Protein 5.4 L Albumin 2.4 L Albumin/Globulin Ratio 0.8 Blood Type Antibody Screen Crossmatch 05/02/20 07:00 WBC RBC Hgb Hct MCV MCH MCHC RDW Plt Count Lymph % (Auto) [place] % (Auto) Eos % (Auto) Baso % (Auto) Lymph # (Auto) [place] # (Auto) Eos # (Auto) Baso # (Auto) Seg Neutrophils % Seg Neutrophils # Sodium Potassium Chloride Carbon Dioxide Anion Gap BUN Creatinine Estimated GFR BUN/Creatinine Ratio Glucose POC Glucose Calcium Total Bilirubin AST ALT Alkaline Phosphatase Total Protein Albumin Albumin/Globulin Ratio Blood Type AB POSITIVE Antibody Screen Negative Crossmatch See Detail
--- NOTE | 2020-05-02 10:19 | Progress Note ---
<SENA HIGGINS - Last Filed: 05/02/20 10:16> Assessment and Plan Chronic systolic heart failure LVEF 15-20% by echo 01/2020 VQ scan reports a low probability for PE. COVID 19 test was negative Paroxysmal Atrial fibrillation vs flutter metoprolol discontinued due to sinus bradycardia low dose Eliquis discontinued due to development of severe anemia normal TSH of 3.6 Chronic anemia Thrombocytopenia Dehydration Hx of Ischemic cardiomyopathy noncompliant with outpatient cardiac follow up. Hx of CAD Abdominal pain CT scan of the abdomen suggestive of colitis. Renal insufficiency Conservative cardiac management. Subjective Date of service: 05/02/20 Principal diagnosis: CHF Interval history: Patient is alert with confusion. On yesterday there was atrial fibrillaiton with a slow ventricular rate. He has since reverted to a stable sinus rhythm, rate 75 on telemetry. Objective Vital Signs Temp Pulse Pulse Pulse Resp Resp BP 05/02/20 08:16 77 32 H 112/50 05/02/20 08:00 97.9 F 60 22 105/51 05/02/20 07:45 60 16 108/47 05/02/20 07:33 63 12 05/02/20 07:32 05/02/20 07:30 69 19 108/51 05/02/20 07:16 62 20 101/41 05/02/20 07:00 69 19 108/46 05/02/20 06:46 63 18 108/46 05/02/20 06:30 77 28 H 81/45 05/02/20 06:16 79 18 81/45 05/02/20 06:00 60 17 91/46 05/02/20 05:46 74 30 H 95/47 05/02/20 05:30 72 26 H 89/51 05/02/20 05:15 71 22 80/42 05/02/20 05:00 72 25 H 86/45 05/02/20 04:45 83 17 88/32 05/02/20 04:30 76 19 84/33 05/02/20 04:16 75 24 84/33 05/02/20 04:00 75 75 27 H 110/53 05/02/20 03:46 74 28 H 109/43 05/02/20 03:30 72 29 H 104/45 05/02/20 03:16 67 25 H 102/43 05/02/20 03:00 57 L 20 101/43 12/08/20 02:46 69 17 86/39 05/02/20 02:30 71 23 100/47 05/02/20 02:16 57 L 20 115/73 05/02/20 02:00 55 L 16 120/53 05/02/20 01:46 64 27 H 117/47 05/02/20 01:30 55 L 19 105/49 05/02/20 01:15 61 21 120/53 05/02/20 01:00 67 17 84/45 05/02/20 00:45 71 17 84/45 05/02/20 00:30 54 L 24 140/116 05/02/20 00:15 66 18 140/116 05/02/20 00:00 98.1 F 59 L 52 L 19 131/47 05/01/20 23:45 49 L 15 131/47 05/01/20 23:30 49 L 14 132/48 05/01/20 23:15 49 L 13 127/45 05/01/20 23:02 50 L 14 122/51 05/01/20 23:00 49 L 14 122/51 05/01/20 22:45 51 L 13 123/50 05/01/20 22:30 47 L 9 L 117/50 05/01/20 22:15 47 L 10 L 119/46 05/01/20 22:00 49 L 11 L 122/51 05/01/20 21:45 48 L 16 121/50 05/01/20 21:30 53 L 12 121/48 05/01/20 21:15 45 L 13 121/48 05/01/20 21:00 58 L 19 119/80 05/01/20 20:46 48 L 15 119/80 05/01/20 20:31 47 L 22 05/01/20 20:30 50 L 21 124/52 05/01/20 20:16 47 L 15 120/61 05/01/20 20:00 47 L 51 L 14 116/42 05/01/20 19:46 46 L 14 116/42 05/01/20 19:30 44 L 26 H 130/50 05/01/20 19:16 46 L 13 95/38 05/01/20 19:00 48 L 20 121/31 05/01/20 18:46 52 L 16 130/40 05/01/20 18:30 47 L 16 85/38 05/01/20 18:15 43 L 12 89/41 05/01/20 18:00 43 L 19 118/51 05/01/20 17:46 46 L 19 118/51 05/01/20 17:30 43 L 20 104/42 05/01/20 17:16 65 20 104/42 05/01/20 17:00 41 L 11 L 95/41 05/01/20 16:46 42 L 12 98/36 05/01/20 16:30 43 L 14 97/45 05/01/20 16:15 60 16 100/50 05/01/20 16:00 63 73 11 L 97/50 05/01/20 15:45 47 L 23 84/48 05/01/20 15:30 66 26 H 92/39 05/01/20 15:16 65 16 78/49 05/01/20 15:00 48 L 18 103/45 05/01/20 14:46 47 L 16 62/36 05/01/20 14:30 49 L 17 87/48 05/01/20 14:16 62 18 87/48 05/01/20 14:00 48 L 14 89/43 05/01/20 13:46 63 13 95/46 05/01/20 13:30 57 L 15 95/46 05/01/20 13:16 63 20 90/46 05/01/20 13:00 65 20 72/35 05/01/20 12:45 45 L 18 84/51 05/01/20 12:30 50 L 18 122/45 05/01/20 12:16 60 18 122/45 05/01/20 12:00 47 L 73 13 79/46 05/01/20 11:46 48 L 18 79/46 05/01/20 11:30 48 L 90/39 05/01/20 11:16 47 L 101/34 05/01/20 11:00 66 13 101/30 05/01/20 10:46 49 L 16 101/30 05/01/20 10:30 48 L 17 86/46 Pulse Ox 05/02/20 08:16 98 05/02/20 08:00 100 05/02/20 07:45 100 05/02/20 07:33 05/02/20 07:32 96 05/02/20 07:30 05/02/20 07:16 05/02/20 07:00 05/02/20 06:46 98 05/02/20 06:30 98 05/02/20 06:16 97 05/02/20 06:00 99 05/02/20 05:46 98 05/02/20 05:30 98 05/02/20 05:15 98 05/02/20 05:00 98 05/02/20 04:45 98 05/02/20 04:30 97 05/02/20 04:16 98 05/02/20 04:00 98 05/02/20 03:46 98 05/02/20 03:30 98 05/02/20 03:16 98 05/02/20 03:00 100 05/02/20 02:46 05/02/20 02:30 05/02/20 02:16 100 05/02/20 02:00 100 05/02/20 01:46 100 05/02/20 01:30 100 05/02/20 01:15 99 05/02/20 01:00 98 05/02/20 00:45 05/02/20 00:30 05/02/20 00:15 05/02/20 00:00 97 05/01/20 23:45 100 05/01/20 23:30 100 05/01/20 23:15 99 05/01/20 23:02 100 05/01/20 23:00 100 05/01/20 22:45 100 05/01/20 22:30 100 05/01/20 22:15 99 05/01/20 22:00 99 05/01/20 21:45 99 05/01/20 21:30 99 05/01/20 21:15 98 05/01/20 21:00 99 05/01/20 20:46 98 05/01/20 20:31 05/01/20 20:30 98 05/01/20 20:16 99 05/01/20 20:00 100 05/01/20 19:46 98 05/01/20 19:30 100 05/01/20 19:16 05/01/20 19:00 05/01/20 18:46 05/01/20 18:30 95 05/01/20 18:15 100 05/01/20 18:00 100 05/01/20 17:46 99 05/01/20 17:30 100 05/01/20 17:16 91 05/01/20 17:00 100 05/01/20 16:46 100 05/01/20 16:30 99 05/01/20 16:15 95 05/01/20 16:00 100 05/01/20 15:45 99 05/01/20 15:30 05/01/20 15:16 96 05/01/20 15:00 97 05/01/20 14:46 99 05/01/20 14:30 99 05/01/20 14:16 97 05/01/20 14:00 100 05/01/20 13:46 97 05/01/20 13:30 99 05/01/20 13:16 98 05/01/20 13:00 98 05/01/20 12:45 100 05/01/20 12:30 100 05/01/20 12:16 99 05/01/20 12:00 98 05/01/20 11:46 98 05/01/20 11:30 100 05/01/20 11:16 98 05/01/20 11:00 93 05/01/20 10:46 100 05/01/20 10:30 100 - Physical Examination General: No Apparent Distress, Cachectic HEENT: Positive: PERRL Neck: Positive: trachea midline Cardiac: Positive: Reg Rate and Rhythm Neuro: Positive: Weakness Extremities: Absent: edema - Labs and Meds Cardiac Enzymes 05/02/20 Range/Units 05:07 AST 19 (5-40) units/L CBC 05/02/20 Range/Units 05:07 WBC 4.5 (4.5-11.0) K/mm3 RBC 2.76 L (3.65-5.03) M/mm3 Hgb 6.7 L (11.8-15.2) gm/dl Hct 21.3 L (35.5-45.6) % Plt Count 43 L (140-440) K/mm3 Lymph # (Auto) 0.5 L (1.2-5.4) K/mm3 [place] # (Auto) 0.2 (0.0-0.8) K/mm3 Eos # (Auto) 0.1 (0.0-0.4) K/mm3 Baso # (Auto) 0.1 (0.0-0.1) K/mm3 Comprehensive Metabolic Panel 05/02/20 Range/Units 05:07 Sodium 154 H (137-145) mmol/L Potassium 3.7 (3.6-5.0) mmol/L Chloride 120.4 H (98-107) mmol/L Carbon Dioxide 15 L (22-30) mmol/L BUN 67 H (9-20) mg/dL Creatinine 2.6 H (0.8-1.3) mg/dL Glucose 179 H (75-100) mg/dL Calcium 8.4 (8.4-10.2) mg/dL AST 19 (5-40) units/L ALT 22 (7-56) units/L Alkaline Phosphatase 77 (35-129) units/L Total Protein 5.4 L (6.3-8.2) g/dL Albumin 2.4 L (3.9-5) g/dL <DOTTIE REYNOSO - Last Filed: 05/04/20 07:09> Assessment and Plan - Patient Problems (1) Acute and chronic respiratory failure Current Visit: Yes Status: Acute (2) Acute exacerbation of CHF (congestive heart failure) Current Visit: Yes Status: Acute (3) Coronary artery disease Current Visit: Yes Status: Acute Subjective Interval history: I saw this pt & agree with the Dx & Tx plan. Objective Vital Signs Temp Pulse Pulse Pulse Resp Resp Resp 05/04/20 03:47 97.6 F 65 17 05/04/20 00:00 72 05/03/20 23:44 97.2 F L 72 18 05/03/20 22:43 91 H 78 20 22 05/03/20 22:37 05/03/20 20:35 96.8 F L 68 20 05/03/20 20:00 72 05/03/20 18:47 97.8 F 65 20 05/03/20 17:30 56 L 31 H 05/03/20 17:21 55 L 26 H 05/03/20 17:11 73 11 L 05/03/20 17:00 79 27 H 05/03/20 16:51 87 27 H 05/03/20 16:45 05/03/20 16:30 05/03/20 16:11 58 L 22 05/03/20 16:01 52 L 29 H 05/03/20 16:00 90 05/03/20 15:45 57 L 20 05/03/20 15:30 56 L 24 05/03/20 15:15 55 L 26 H 05/03/20 15:00 57 L 18 05/03/20 14:45 58 L 32 H 05/03/20 14:30 96 H 28 H 05/03/20 14:15 05/03/20 14:01 05/03/20 13:45 05/03/20 13:31 05/03/20 13:15 05/03/20 13:00 60 16 05/03/20 12:45 62 32 H 05/03/20 12:31 74 21 05/03/20 12:15 74 24 05/03/20 12:01 57 L 12 05/03/20 12:00 93 H 05/03/20 11:45 83 19 05/03/20 11:30 77 05/03/20 11:15 75 15 05/03/20 11:00 55 L 24 05/03/20 10:45 74 28 H 05/03/20 10:30 56 L 33 H 05/03/20 10:15 66 25 H 05/03/20 10:00 67 17 05/03/20 09:45 68 22 05/03/20 09:30 84 28 H 05/03/20 09:15 79 17 05/03/20 09:09 67 25 H 05/03/20 08:45 05/03/20 08:31 05/03/20 08:15 05/03/20 08:07 05/03/20 08:04 96 H 97 H 28 H 24 05/03/20 08:00 58 L 20 05/03/20 07:45 105 H 22 05/03/20 07:30 102 H 25 H 05/03/20 07:15 BP Pulse Ox 05/04/20 03:47 108/52 98 05/04/20 00:00 05/03/20 23:44 102/55 98 05/03/20 22:43 05/03/20 22:37 98 05/03/20 20:35 115/65 97 05/03/20 20:00 98 05/03/20 18:47 96/46 100 05/03/20 17:30 105/67 94 05/03/20 17:21 105/60 100 05/03/20 17:11 100/66 100 12/09/20 17:00 100/66 98 05/03/20 16:51 94/56 99 05/03/20 16:45 94/56 05/03/20 16:30 93/52 05/03/20 16:11 105/47 100 05/03/20 16:01 105/47 100 05/03/20 16:00 05/03/20 15:45 105/51 100 05/03/20 15:30 103/49 100 05/03/20 15:15 92/50 100 05/03/20 15:00 95/52 100 05/03/20 14:45 107/63 100 05/03/20 14:30 109/74 100 05/03/20 14:15 107/40 100 05/03/20 14:01 107/40 100 05/03/20 13:45 100/53 100 05/03/20 13:31 100/53 100 05/03/20 13:15 95/50 100 05/03/20 13:00 100/51 100 05/03/20 12:45 100/62 100 05/03/20 12:31 100/62 91 05/03/20 12:15 104/48 93 05/03/20 12:01 104/48 78 L 05/03/20 12:00 05/03/20 11:45 96/58 97 05/03/20 11:30 96/58 05/03/20 11:15 101/57 96 05/03/20 11:00 109/48 92 05/03/20 10:45 101/47 100 05/03/20 10:30 101/47 100 05/03/20 10:15 99/41 100 05/03/20 10:00 92/50 100 05/03/20 09:45 87/47 99 05/03/20 09:30 99/51 99 05/03/20 09:15 87/47 98 05/03/20 09:09 87/47 05/03/20 08:45 87/47 05/03/20 08:31 97/44 05/03/20 08:15 83/50 05/03/20 08:07 99 05/03/20 08:04 05/03/20 08:00 95/50 96 05/03/20 07:45 94/49 99 05/03/20 07:30 94/49 98 05/03/20 07:15 93/59 - Labs and Meds Comprehensive Metabolic Panel 05/04/20 Range/Units 04:00 Sodium 154 H (137-145) mmol/L Potassium 3.3 L (3.6-5.0) mmol/L Chloride 122.4 H (98-107) mmol/L Carbon Dioxide 21 L (22-30) mmol/L BUN 51 H (9-20) mg/dL Creatinine 2.4 H (0.8-1.3) mg/dL Glucose 165 H (75-100) mg/dL Calcium 8.4 (8.4-10.2) mg/dL
[2020-05-02] MEDS ORDERED: SODIUM CHLORIDE 0.9% 500 ML 500 ML ONE (10:29)
[2020-05-02] MEDS: MIDODRINE 5 MG TAB PO SCH ×3 (10:42→17:49)
[2020-05-02] MEDS: NORepinephrine/NS 4 MG-250 ML 4 MG/250 ML BAG IV SCH (10:44)
--- NOTE | 2020-05-02 10:47 | Progress Note ---
Assessment and Plan 1. Acute kidney injury: Vasomotor KIRT superimposed on CKD. CT abdomen negative for hydro. Monitor renal function. Creatinine level is high. Avoid nephrotoxic agents. Meds dosage based on GFR. 2. FEN: Hypernatremia, increase IV D5W, monitor. Hypokalemia, improved, monitor. Anion-gap metabolic acidosis, monitor. Monitor lytes and volume status. 3. Acute hypoxic respiratory failure: Possibly secondary to the CHF and underlying pneumonia. COVID-19 test negative. 4. Hypotension: On Levophed and Dobutamine. Monitor BP. 5. Bradycardia: Followed by Cards. 6. Chronic CHF: Monitor daily weight, intake and outputs. Followed by Cards. 7. Anemia, POA: Monitor. 8. Elevated Transaminases: Improved. 9. DM type 2. Overall prognosis is slim. Subjective: Patient was seen and examined at the bedside. Examination: General appearance: well-developed, appears stated age HEENT: ATNC, pupils equal Neck: trachea midline Respiratory: ctab Heart: regular, S1S2, no murmur Gastrointestinal: soft, normoactive bowel sounds, not tender Integumentary: no rash, warm and dry Neurologic: alert, moving extremities, confused Ext: no edema Subjective Date of service: 05/02/20 Principal diagnosis: CHF Objective - Vital Signs Vital signs: Vital Signs - 12hr 05/01/20 05/01/20 05/01/20 23:00 23:02 23:15 Temperature Pulse Rate 49 L 50 L 49 L Pulse Rate [ Anterior Bilateral Throughout] Pulse Rate [ From Monitor] Respiratory 14 14 13 Rate Respiratory Rate [Anterior Bilateral Throughout] Blood Pressure 122/51 122/51 127/45 O2 Sat by Pulse 100 100 99 Oximetry 05/01/20 05/01/20 05/02/20 23:30 23:45 00:00 Temperature 98.1 F Pulse Rate 49 L 49 L 59 L Pulse Rate [ Anterior Bilateral Throughout] Pulse Rate [ 52 L From Monitor] Respiratory 14 15 19 Rate Respiratory Rate [Anterior Bilateral Throughout] Blood Pressure 132/48 131/47 131/47 O2 Sat by Pulse 100 100 97 Oximetry 05/02/20 05/02/20 05/02/20 00:15 00:30 00:45 Temperature Pulse Rate 66 54 L 71 Pulse Rate [ Anterior Bilateral Throughout] Pulse Rate [ From Monitor] Respiratory 18 24 17 Rate Respiratory Rate [Anterior Bilateral Throughout] Blood Pressure 140/116 140/116 84/45 O2 Sat by Pulse Oximetry 05/02/20 05/02/20 05/02/20 01:00 01:15 01:30 Temperature Pulse Rate 67 61 55 L Pulse Rate [ Anterior Bilateral Throughout] Pulse Rate [ From Monitor] Respiratory 17 21 19 Rate Respiratory Rate [Anterior Bilateral Throughout] Blood Pressure 84/45 120/53 105/49 O2 Sat by Pulse 98 99 100 Oximetry 05/02/20 05/02/20 05/02/20 01:46 02:00 02:16 Temperature Pulse Rate 64 55 L 57 L Pulse Rate [ Anterior Bilateral Throughout] Pulse Rate [ From Monitor] Respiratory 27 H 16 20 Rate Respiratory Rate [Anterior Bilateral Throughout] Blood Pressure 117/47 120/53 115/73 O2 Sat by Pulse 100 100 100 Oximetry 05/02/20 05/02/20 05/02/20 02:30 02:46 03:00 Temperature Pulse Rate 71 69 57 L Pulse Rate [ Anterior Bilateral Throughout] Pulse Rate [ From Monitor] Respiratory 23 17 20 Rate Respiratory Rate [Anterior Bilateral Throughout] Blood Pressure 100/47 86/39 101/43 O2 Sat by Pulse 100 Oximetry 05/02/20 05/02/20 05/02/20 03:16 03:30 03:46 Temperature Pulse Rate 67 72 74 Pulse Rate [ Anterior Bilateral Throughout] Pulse Rate [ From Monitor] Respiratory 25 H 29 H 28 H Rate Respiratory Rate [Anterior Bilateral Throughout] Blood Pressure 102/43 104/45 109/43 O2 Sat by Pulse 98 98 98 Oximetry 05/02/20 05/02/20 05/02/20 04:00 04:16 04:30 Temperature Pulse Rate 75 75 76 Pulse Rate [ Anterior Bilateral Throughout] Pulse Rate [ 75 From Monitor] Respiratory 27 H 24 19 Rate Respiratory Rate [Anterior Bilateral Throughout] Blood Pressure 110/53 84/33 84/33 O2 Sat by Pulse 98 98 97 Oximetry 05/02/20 05/02/20 05/02/20 04:45 05:00 05:15 Temperature Pulse Rate 83 72 71 Pulse Rate [ Anterior Bilateral Throughout] Pulse Rate [ From Monitor] Respiratory 17 25 H 22 Rate Respiratory Rate [Anterior Bilateral Throughout] Blood Pressure 88/32 86/45 80/42 O2 Sat by Pulse 98 98 98 Oximetry 05/02/20 05/02/20 05/02/20 05:30 05:46 06:00 Temperature Pulse Rate 72 74 60 Pulse Rate [ Anterior Bilateral Throughout] Pulse Rate [ From Monitor] Respiratory 26 H 30 H 17 Rate Respiratory Rate [Anterior Bilateral Throughout] Blood Pressure 89/51 95/47 91/46 O2 Sat by Pulse 98 98 99 Oximetry 05/02/20 05/02/20 05/02/20 06:16 06:30 06:46 Temperature Pulse Rate 79 77 63 Pulse Rate [ Anterior Bilateral Throughout] Pulse Rate [ From Monitor] Respiratory 18 28 H 18 Rate Respiratory Rate [Anterior Bilateral Throughout] Blood Pressure 81/45 81/45 108/46 O2 Sat by Pulse 97 98 98 Oximetry 05/02/20 05/02/20 05/02/20 07:00 07:16 07:30 Temperature Pulse Rate 69 62 69 Pulse Rate [ Anterior Bilateral Throughout] Pulse Rate [ From Monitor] Respiratory 19 20 19 Rate Respiratory Rate [Anterior Bilateral Throughout] Blood Pressure 108/46 101/41 108/51 O2 Sat by Pulse Oximetry 05/02/20 05/02/20 05/02/20 07:32 07:33 07:45 Temperature Pulse Rate 60 Pulse Rate [ 63 Anterior Bilateral Throughout] Pulse Rate [ From Monitor] Respiratory 16 Rate Respiratory 12 Rate [Anterior Bilateral Throughout] Blood Pressure 108/47 O2 Sat by Pulse 96 100 Oximetry 05/02/20 05/02/20 08:00 08:16 Temperature 97.9 F Pulse Rate 60 77 Pulse Rate [ Anterior Bilateral Throughout] Pulse Rate [ From Monitor] Respiratory 22 32 H Rate Respiratory Rate [Anterior Bilateral Throughout] Blood Pressure 105/51 112/50 O2 Sat by Pulse 100 98 Oximetry - Lab 05/02/20 05:07 05/02/20 05:07 Most recent lab results ABG pH 7.387 pH Units (7.350-7.450) 04/29/20 11:50 ABG pCO2 31.8 mm Hg 04/29/20 11:50 ABG pO2 102.9 mm Hg (80.0-90.0) H 04/29/20 11:50 ABG HCO3 18.7 mmol/L (20.0-26.0) L 04/29/20 11:50 ABG O2 Saturation 97.8 % (95.0-99.0) 04/29/20 11:50 Calcium 8.4 mg/dL (8.4-10.2) 05/02/20 05:07 Phosphorus 5.60 mg/dL (2.5-4.5) H 04/10/20 22:50 Magnesium 2.40 mg/dL (1.7-2.3) H 04/10/20 22:50 Urine Creatinine 35.3 mg/dL (0.1-20.0) H 04/11/20 Unknown Urine Sodium 92 mmol/L 04/11/20 Unknown Medications & Allergies - Medications Allergies/Adverse Reactions: Allergies Sulfa (Sulfonamide Antibiotics) Allergy (Verified 07/30/18 17:44) Rash Home Medications: Home Medications Medication Instructions Recorded Confirmed Last Taken Type Gabapentin 300 mg PO BID 09/19/16 04/21/20 09/18/16 History 300 mg Metformin HCl [metFORMIN ER 500 mg PO BIDWM 03/28/17 04/21/20 Unknown History Gastric] AtorvaSTATin 10 mg PO QHS #30 tablet 12/21/17 04/21/20 Unknown Rx Ranolazine ER [Ranexa ER] 500 mg PO BID #60 tablet 12/21/17 04/21/20 Unknown Rx Aspirin 325 mg PO QDAY #30 tablet 01/12/18 04/21/20 04/21/20 Rx Diphenoxylate/Atropine [Lomotil] 1 tab PO Q8H PRN 01/15/18 04/21/20 Unknown History Insulin Lispro [HumaLOG VIAL] See Protocol SQ ACHS 01/15/18 04/21/20 04/21/20 18:46 History Promethazine [Phenergan] 25 mg PO Q4H PRN 01/15/18 04/21/20 Unknown History Albuterol Mdi (or & Nicu Only) 2 puff IH Q4HR PRN #1 inhalation 12/21/18 04/21/20 04/21/20 18:46 Rx [ProAir HFA Inhaler] Furosemide [Lasix TAB] 20 mg PO QDAY #30 tablet 02/03/20 04/21/20 Unknown Rx Metoprolol Xl [Metoprolol 25 mg PO DAILY #60 tablet 02/03/20 04/21/20 04/21/20 18:45 Rx SUCCINATE ER TAB] levETIRAcetam [Keppra TAB] 500 mg PO BID #120 tablet 02/03/20 04/21/20 Unknown Rx levoFLOXacin [Levaquin TAB] 500 mg PO QDAY #5 tablet 02/03/20 04/21/20 Unknown Rx Active Medications: Generic Name Dose Route Start Last Admin Trade Name Freq PRN Reason Stop Dose Admin Acetaminophen 650 mg 04/11/20 01:26 04/23/20 23:13 Tylenol PO 650 mg Q6H PRN Administration Pain MILD(1-3)/Fever >100.5/MANCILLA Lipase/Protease/Amylase 1 each 04/11/20 14:22 Pancremiley Saenz 10,500 Unit FEEDTUBE PRN PRN For Clogged Feeding Tube Arformoterol Tartrate 15 mcg 04/20/20 20:00 05/02/20 07:33 Brovana Nebu IH 15 mcg Q12HRT PRAVIN Administration Budesonide 0.5 mg 04/20/20 20:00 05/02/20 07:33 Pulmicort IH 0.5 mg Q12HRT PRAVIN Administration Norepinephrine 4 mg in 250 mls @ 7.5 mls/hr 04/25/20 17:00 05/02/20 10:44 Levophed Drip 4 Mg/Ns 250 Ml IV 4 mcg/min TITR PRAVIN 15 mls/hr Administration Protocol 2 MCG/MIN Dextrose 1,000 mls @ 42 mls/hr 04/30/20 17:00 05/02/20 00:41 D5w IV 42 mls/hr DIRECT PRAVIN Administration Insulin Human Lispro 0 unit 04/16/20 16:30 05/01/20 21:51 Humalog SUB-Q Not Given ACHS PRAVIN Protocol Magnesium Hydroxide 30 ml 04/11/20 01:26 Milk Of Magnesia PO Q4H PRN Constipation Midodrine 10 mg 05/01/20 16:00 05/02/20 10:42 Proamatine PO 10 mg TID@0800,1200,1600 PRAVIN Administration Ondansetron HCl 4 mg 04/25/20 04:53 04/25/20 05:25 Zofran IV 4 mg Q8H PRN Administration Nausea And Vomiting Simple Syrup 15 ml 04/11/20 14:22 Simple Syrup FEEDTUBE PRN PRN Hypoglycemia Simple Syrup 30 ml 04/11/20 14:22 Simple Syrup FEEDTUBE PRN PRN Hypoglycemia Sodium Bicarbonate 325 mg 04/11/20 14:22 Sodium Bicarbonate FEEDTUBE PRN PRN For Clogged Feeding Tube Sodium Chloride 10 ml 04/11/20 10:00 05/01/20 21:50 Sodium Chloride Flush Syringe 10 Ml IV Not Given BID PRAVIN Sodium Chloride 10 ml 04/11/20 01:26 Sodium Chloride Flush Syringe 10 Ml IV PRN PRN LINE FLUSH
[2020-05-02] MEDS: INSULIN LISPRO 100 UNIT/ML VIAL 3 mL SUB-Q SCH ×4 (12:46→22:00)
--- NOTE | 2020-05-02 13:17 | Progress Note ---
Assessment and Plan Assessment and plan: ---Acute respiratory failure Current Visit: Yes Status: Acute Plan to address problem: Continue oxygen supplementation --Acute on chronic systolic CHF (congestive heart failure) Current Visit: Yes Status: Acute Plan to address problem: Holding Lasix due to KIRT Will monitor daily weight, inputs and outputs. Monitor renal function closely Cardiology on board --KIRT on CKD Current Visit: Yes Status: Acute Plan to address problem: Had KIRT 2/2 vasomotor nephropathy Lasix given due to worsening pulm edema but Cr bumped. Hold lasix --Colitis Current Visit: Yes Status: Acute Plan to address problem: Resolved GI recommendations appreciated --Left sided pleural effusion Current Visit: No Status: Acute Plan to address problem: Lasix held due to worsening renal function Will get US thoracentesis when IR <1.5. Pulmonology consulted. --Arrhythmias Current Visit: Yes Status: Acute Plan to address problem: Initially started on amiodarone but discontinued due to elevated LFTs Noted to have pauses on telemetry. Metoprolol discontinued-awaiting cardiology recommendations at this time. Pacer placed at bedside Transfer patient to [facility] for now Holding apixaban due to thrombocytopenia Cardiology recommendations appreciated --Diabetes mellitus type 2 in nonobese Current Visit: No Status: Acute Plan to address problem: Lantus and sliding scale insulin. --Hyperkalemia and metabolic acidosis Current Visit: Yes Status: Acute Plan to address problem: Resolved --T12 compression fracture Current Visit: No Status: Likely chronic Plan to address problem: CT abdomen showed acute appearing T12 compression fracture 04/14. MRI thoracic without contrast ordered to further evaluate. 04/15. Patient is agitated and unable to get an MRI. 04/16. Awaiting MRI without contrast thoracic. Plan to use sedatives today. Informed RN. If positive for acute fracture, patient will need to be transferred for neurosurgery evaluation. 04/17. MRI thoracic and lumbar showed acute T12 compression fracture. Discussed case with [place] neurosurgery institutional commodity analyst who advised no acute intervention is necessary at this time-advised TLSO brace when patient is sitting or ambulatory. He will need follow-up with Dr. Dalton Jack, Dr. Alan Henson, Dr. Tyson Clark [contact number [phone]] after discharge. ---Elevated LFTs Current Visit: Yes Status: Acute Plan to address problem: Improving US abdomen shows no acute pathology ---Infrarenal aortic aneurysm Current Visit: No Status: Acute Plan to address problem: 3.8 cm in diameter Needs to follow-up with vascular surgery at discharge for monitoring -Shock Current Visit: No Status: Acute Plan to address problem: Improved VQ scan to rule out PE - negative -- Hypernatremia Current Visit: No Status: Acute Plan to address problem: Due to poor intake. NG tube placement ordered. Patient continues to refuse NG tube placement. Needs PEG placement. GI consulted Start water via NG tube 400cc q8 hours Trend sodium -- DVT prophylaxis Current Visit: No Status: Acute Plan to address problem: Hold heparin for now --Full code status Current Visit: No Status: Acute Disposition-home with hospice as per patient son when stable 04/11. Patient seen and examined at bedside this morning. Patient is on BiPAP. Patient is eager to go home. Otherwise denies any chest pain or palpitations. Patient CT showed possible compression fracture of T12, it is unknown if this is new. We will get MRI without contrast of the thoracic and lumbar to further evaluate. If patient actually has an acute compression fracture, he will need to have a neurosurgery evaluation so will need to be transferred to another facility for this. Otherwise, patient continue to monitor patient's respiratory status while in the IMCU. Patient reportedly failed a swallow evaluation and will need to have an NG tube placement. Tried to call son on number provided in the chart and left a message. Awaiting callback. Labs reviewed-patient has elevated inflammatory xgqdxno-I-cutal, LDH. COVID-19 test has been ordered. Started patient on steroids. Ordered stat BMP, ABG, D-dimer, proBNP, ferritin, LDH. 04/12. COVID -19 test is negative. His breathing has improved so was placed on nasal cannula. Cardiology adjusted meds today. He failed swallow evaluation yesterday. He requests for food. Will reattempt swallow evaluation. Speech therapy consult. 04/13. Overnight, he developed VT and was started on amiodarone. HR better this AM. Cardiology will review medications. Patient seen and examined at bedside this AM. He requests for food. He failed a repeat speech evaluation and will need barium swallow. May need PEG placement if he fails. NG tube in place. Vitals reviewed 04/14. Heart rate improved. Remains n.p.o. with NG tube feeds. Video swallow evaluation shows mild abnormal study. Speech therapist to see patient. Patient has not been able to have an MRI of the back due to agitation. He had a CT during the admission that showed possible compression fracture of T12 but this has not been fully evaluated due to patient's ongoing conditions. Labs reviewed-renal function is worse. Discontinue Lasix. 04/15. Has been started on a diet and is tolerating. He pulled out his NG tube last night. Okay to leave NG tube for now. Plan to get an MRI performed today with sedative to evaluate T12 fracture. Patient denies any back pain. Renal function slightly improved today after Lasix was discontinued. Continue IV hydration. Nephrology recommendations appreciated 04/16. He feels better today. MRI could not be done yesterday. Hopefully patient can have an MRI done today. Creatinine 3.1 today. Patient will need placement but will need to have evaluation of possible T12 fracture prior to discharge 04/17. MRI thoracic and lumbar showed acute T12 compression fracture. Discussed case with [place] neurosurgery institutional commodity analyst who advised no acute intervention is necessary at this time-advised TLSO brace when patient is sitting or am bulatory. He will need follow-up with Dr. Dalton Jack, Dr. Alan Henson, Dr. Tyson Clark [contact number [phone]] after discharge. 04/18. Await Nephrology recs for d/c plans 04/19/2020. Patient reportedly with choking/coughing with swallowing. We will change to n.p.o. status right now. Speech reevaluation. Check chest x-ray to rule out aspiration pneumonia. Await nephrology recommendations for discharge. Creatinine slowly improving. CT of abdomen negative for hydronephrosis. BUN increasing. Therefore, we will check Hemoccult of stool to rule out GI bleed. Hemoglobin has been stable. 04/20/2020. Repeat chest x-ray reveals worsening bibasilar opacities. Pulmonary consulted. Doppler of left upper extremity for swelling. PT evaluation recommends subacute rehab 04/21/2020. Await pulmonary consultation for worsening bibasilar opacities. Doppler of left upper extremity pending. PT evaluation recommends subacute rehab. Creatinine has improved to near baseline of 1.8. Nephrology following 04/22/2020. Pulmonary sees no need for antibiotics or further evaluation of bibasilar opacities with CT scan. Continue current COPD treatment. Beta blockers increase for A. fib per cardiology. Await Doppler left upper extremity. PT evaluation recommends subacute rehab but case management reports patient's son Haseeb [phone]. Haseeb wants patient to return home with [facility]. 04/23/2020. Continue beta-blockers for atrial fibrillation per cardiology. Await left upper extremity Doppler ultrasound for left upper extremity swelling. PT evaluation recommends subacute rehab but case management reports patient's son Haseeb [phone]. Haseeb wants patient to return home with [facility]. Creatinine appears to be improved to baseline. Anticipate discharge in the next 1 to 2 days. 04/24/2020. Continue beta-blockers for atrial fibrillation per cardiology. Await left upper extremity Doppler ultrasound for left upper extremity swelling. Haseeb (son [phone]) wants patient to return home with [facility]. Creatinine appears to be improved to baseline. Patient now with hypernatremia. ?Tenuous IV fluid hydration--defer to nephrology. 04/25. Blood pressure low this morning but subsequently improved with slow bolus . Sodium today is 150. Patient is dehydrated and is asking for water to drink. I have discussed with RN to ensure patient gets enough water to help with dehydration. His heart rate is controlled and cardiology has adjusted the medication today due to slight hypotension.-Metoprolol now 25 every 8 hours. He is alert and oriented x3 this morning and is able to make needs known. Check BMP every 8 hours for now. Nephrology following 04/26. Transferred to the ICU due to persisted hypotension. WBC trending up. Started on antibiotics. Aetiology of shock could be sepsis. Other differentials - cardiogenic vs obstructive (has been on eliquis 2.5mg BID so not likely. His ddimer is elevated and he cannot get contrast - will get VQ scan. Critical care to see. Blood culture ordered. Repeat labs in AM 04/27. On levophed. Leukocytosis better. Check procalcitonin. On antibiotics. Rest of labs shows anemia and thrombocytopenia. Will dc eliquis. Lasix given but Cr bump noted. Holding lasix for now. Repeat chest xray to evaluate infiltrate and effusion 04/28. BP stable so he was transferred to telemetry. He failed swallow evaluation. Place an NG tube and start free water via NG tube. DC D5w. He will need GI evaluation for PEG tube placement. Lasix was given for worsening infiltrate and effusion but Cr bumped. Awaiting repeat chest xray to evaluate for infiltrate. Ordered INR and BNP. May need US thoracentesis for left pleural effusion. Will get pulm consult. Labs reviewed- still has hypernatremia - nephrology following. heme consult for thrombocytopenia. GI consulted for PEG tube placement 04/29. NG tube not yet placed. Sodium 155. Needs to be started on water via NG tube. No IVF as he has systolic CHF. Consultants notes reviewed. 04/30. Patient continues to refuse NG tube. Patient noted to have bradycardia this a.m. down to 30s-40s. Also has pauses up to 2 seconds this AM. Metoprolol has been discontinued. Patient needed 1 dose of atropine with slight improvement. Pacer placed at bedside. Patient was transferred to the [facility] for close monitoring. Cardiology has been paged and awaiting callback. Discussed with RN. Plan for PEG tube placement as per GI. Maintain n.p.o. for now 05/01. Now in the ICU on pressors due to hypotension. GI was consulted as patient has failed multiple swallow evaluations during this admission and GI plans to place a PEG tube when cardiac status is stable. Cardiology to evaluate today. Heart rate remains in the 40s to 50s. 05/02/2020; patient is on low-dose of Levophed. Cardiology is following for bradycardia, hypotension and abnormal rhythm, he has ejection fraction of 15%. GI is considering to do PEG tube placement once stable cardiac renee. Patient is on hospice care at home but whenever he becomes sick family revoked hospice and bring to the hospital. Once stabilized will take him and keep him on hospice. Management plan discussed with cardiology PA, cook jelly and case management. History Interval history: Patient was seen and evaluated this morning He has shortness of breath and on 3 L of oxygen Patient is anemic and is getting blood transfusion Hypotension, bradycardia Hospitalist Physical - Physical exam Narrative exam: Patient is on 3 L of oxygen The patient appeared well nourished and normally developed. Vital signs as documented. Head exam is unremarkable. No scleral icterus . Neck is without jugular venous distension, thyromegaly, or carotid bruits. Lungs decreased air entry. Cardiac exam reveals regular rate and Rhythm. Abdominal exam reveals normal bowel sounds, nontender, no organomegaly. Extremities are nonedematous and both femoral and pedal pulses are normal. SAP CONSULTANT: Alert and oriented 3. No focal weakness. - Constitutional Vitals: Temp Pulse Resp BP Pulse Ox 94.0 F L 63 22 93/50 97 05/02/20 12:35 05/02/20 12:35 05/02/20 12:35 05/02/20 12:35 05/02/20 12:35 General appearance: Present: no acute distress HEART Score - HEART Score Troponin: Troponin T 0.081 ng/mL (0.00-0.029) H 04/10/20 20:04 Results - Labs CBC & Chem 7: 05/02/20 05:07 05/02/20 05:07 Labs: Laboratory Last Values WBC 4.5 K/mm3 (4.5-11.0) 05/02/20 05:07 RBC 2.76 M/mm3 (3.65-5.03) L 05/02/20 05:07 Hgb 6.7 gm/dl (11.8-15.2) L 05/02/20 05:07 Hct 21.3 % (35.5-45.6) L 05/02/20 05:07 MCV 77 fl (84-94) L 05/02/20 05:07 MCH 24 pg (28-32) L 05/02/20 05:07 MCHC 32 % (32-34) 05/02/20 05:07 RDW 22.6 % (13.2-15.2) H 05/02/20 05:07 Plt Count 43 K/mm3 (140-440) L 05/02/20 05:07 Lymph % (Auto) 11.5 % (13.4-35.0) L 05/02/20 05:07 [place] % (Auto) 3.8 % (0.0-7.3) 05/02/20 05:07 Eos % (Auto) 1.1 % (0.0-4.3) 05/02/20 05:07 Baso % (Auto) 1.4 % (0.0-1.8) 05/02/20 05:07 Lymph # (Auto) 0.5 K/mm3 (1.2-5.4) L 05/02/20 05:07 [place] # (Auto) 0.2 K/mm3 (0.0-0.8) 05/02/20 05:07 Eos # (Auto) 0.1 K/mm3 (0.0-0.4) 05/02/20 05:07 Baso # (Auto) 0.1 K/mm3 (0.0-0.1) 05/02/20 05:07 Add Manual Diff Complete 04/26/20 10:13 Total Counted 100 04/26/20 10:13 Seg Neutrophils % 82.2 % (40.0-70.0) H 05/02/20 05:07 Seg Neuts % (Manual) 97.0 % (40.0-70.0) H 04/26/20 10:13 Band Neutrophils % 0 % 04/26/20 10:13 Lymphocytes % (Manual) 1.0 % (13.4-35.0) L 04/26/20 10:13 Reactive Lymphs % (Man) 0 % 04/26/20 10:13 Monocytes % (Manual) 1.0 % (0.0-7.3) 04/26/20 10:13 Eosinophils % (Manual) 0 % (0.0-4.3) 04/26/20 10:13 Basophils % (Manual) 1.0 % (0.0-1.8) 04/26/20 10:13 Metamyelocytes % 0 % 04/26/20 10:13 Myelocytes % 0 % 04/26/20 10:13 Promyelocytes % 0 % 04/26/20 10:13 Blast Cells % 0 % 04/26/20 10:13 Nucleated RBC % Not Reportable 04/26/20 10:13 Seg Neutrophils # 3.7 K/mm3 (1.8-7.7) 05/02/20 05:07 Seg Neutrophils # Man 14.7 K/mm3 (1.8-7.7) H 04/26/20 10:13 Band Neutrophils # 0.0 K/mm3 04/26/20 10:13 Lymphocytes # (Manual) 0.2 K/mm3 (1.2-5.4) L 04/26/20 10:13 Abs React Lymphs (Man) 0.0 K/mm3 04/26/20 10:13 Monocytes # (Manual) 0.2 K/mm3 (0.0-0.8) 04/26/20 10:13 Eosinophils # (Manual) 0.0 K/mm3 (0.0-0.4) 04/26/20 10:13 Basophils # (Manual) 0.2 K/mm3 (0.0-0.1) H 04/26/20 10:13 Metamyelocytes # 0.0 K/mm3 04/26/20 10:13 Myelocytes # 0.0 K/mm3 04/26/20 10:13 Promyelocytes # 0.0 K/mm3 04/26/20 10:13 Blast Cells # 0.0 K/mm3 04/26/20 10:13 WBC Morphology Not Reportable 04/26/20 10:13 Hypersegmented Neuts Not Reportable 04/26/20 10:13 Hyposegmented Neuts Not Reportable 04/26/20 10:13 Hypogranular Neuts Not Reportable 04/26/20 10:13 Smudge Cells Not Reportable 04/26/20 10:13 Toxic Granulation Not Reportable 04/26/20 10:13 Toxic Vacuolation Not Reportable 04/26/20 10:13 Dohle Bodies Not Reportable 04/26/20 10:13 Pelger-Huet Anomaly Not Reportable 04/26/20 10:13 Barby Rods Not Reportable 04/26/20 10:13 Platelet Estimate Consistent w auto 04/26/20 10:13 Clumped Platelets Not Reportable 04/26/20 10:13 Plt Clumps, EDTA Not Reportable 04/26/20 10:13 Large Platelets Not Reportable 04/26/20 10:13 Giant Platelets Not Reportable 04/26/20 10:13 Platelet Satelliting Not Reportable 04/26/20 10:13 Plt Morphology Comment Not Reportable 04/26/20 10:13 RBC Morphology Not Reportable 04/26/20 10:13 Dimorphic RBCs Not Reportable 04/26/20 10:13 Polychromasia Not Reportable 04/26/20 10:13 Hypochromasia 1+ 04/26/20 10:13 Poikilocytosis Not Reportable 04/26/20 10:13 Anisocytosis 1+ 04/26/20 10:13 Microcytosis Not Reportable 04/26/20 10:13 Macrocytosis Not Reportable 04/26/20 10:13 Spherocytes Not Reportable 04/26/20 10:13 Pappenheimer Bodies Not Reportable 04/26/20 10:13 Sickle Cells Not Reportable 04/26/20 10:13 Target Cells Not Reportable 04/26/20 10:13 Tear Drop Cells Not Reportable 04/26/20 10:13 Ovalocytes Not Reportable 04/26/20 10:13 Helmet Cells Not Reportable 04/26/20 10:13 [place] Bodies Not Reportable 04/26/20 10:13 [place] Rings Not Reportable 04/26/20 10:13 [place] Cells Few 04/26/20 10:13 Bite Cells Not Reportable 04/26/20 10:13 Crenated Cell Not Reportable 04/26/20 10:13 Elliptocytes 1+ 04/26/20 10:13 Acanthocytes (Spur) Not Reportable 04/26/20 10:13 Rouleaux Not Reportable 04/26/20 10:13 Hemoglobin C Crystals Not Reportable 04/26/20 10:13 Schistocytes Few 04/26/20 10:13 Malaria parasites Not Reportable 04/26/20 10:13 [place] Bodies Not Reportable 04/26/20 10:13 Hem Pathologist Commnt No 04/26/20 10:13 PT 17.4 Sec. (12.2-14.9) H 05/01/20 07:10 INR 1.43 (0.87-1.13) H 05/01/20 07:10 D-Dimer 1259.67 ng/mlDDU (0-234) H 04/25/20 16:09 Heparin Anti-Xa Level 0.35 U.I./ml (0.3-0.7) 04/13/20 05:06 Heparin Anti-Xa, Unfract Negative (Negative) 04/17/20 22:45 ABG pH 7.387 pH Units (7.350-7.450) 04/29/20 11:50 ABG pCO2 31.8 mm Hg 04/29/20 11:50 ABG pO2 102.9 mm Hg (80.0-90.0) H 04/29/20 11:50 ABG HCO3 18.7 mmol/L (20.0-26.0) L 04/29/20 11:50 ABG O2 Saturation 97.8 % (95.0-99.0) 04/29/20 11:50 ABG O2 Content 10.2 (0.0-44) 04/29/20 11:50 ABG Base Excess -5.7 mmol/L (-2.0-3.0) L 04/29/20 11:50 ABG Hemoglobin 7.5 gm/dl (14.0-18.0) L 04/29/20 11:50 ABG Carboxyhemoglobin 2.2 % (0.0-5.0) 04/29/20 11:50 ABG Methemoglobin 0.4 % (0.0-1.5) 04/29/20 11:50 Oxyhemoglobin 95.3 % (95.0-99.0) 04/29/20 11:50 FiO2 32 % 04/29/20 11:50 Sodium 154 mmol/L (137-145) H 05/02/20 05:07 Potassium 3.7 mmol/L (3.6-5.0) 05/02/20 05:07 Chloride 120.4 mmol/L (98-107) H 05/02/20 05:07 Carbon Dioxide 15 mmol/L (22-30) L 05/02/20 05:07 Anion Gap 22 mmol/L 05/02/20 05:07 BUN 67 mg/dL (9-20) H 05/02/20 05:07 Creatinine 2.6 mg/dL (0.8-1.3) H 05/02/20 05:07 Estimated GFR 24 ml/min 05/02/20 05:07 BUN/Creatinine Ratio 26 % 05/02/20 05:07 Glucose 179 mg/dL (75-100) H 05/02/20 05:07 POC Glucose 148 mg/dL (70-105) H 05/02/20 11:18 Lactic Acid 3.00 mmol/L (0.7-2.0) H* 04/12/20 06:22 Calcium 8.4 mg/dL (8.4-10.2) 05/02/20 05:07 Phosphorus 5.60 mg/dL (2.5-4.5) H 04/10/20 22:50 Magnesium 2.40 mg/dL (1.7-2.3) H 04/10/20 22:50 Ferritin 135.1 ng/mL (30.0-300.0) 04/11/20 15:11 Total Bilirubin 1.30 mg/dL (0.1-1.2) H 05/02/20 05:07 Direct Bilirubin 0.6 mg/dL (0-0.2) H 04/15/20 04:56 Indirect Bilirubin 0.3 mg/dL 04/15/20 04:56 AST 19 units/L (5-40) 05/02/20 05:07 ALT 22 units/L (7-56) 05/02/20 05:07 Alkaline Phosphatase 77 units/L (35-129) 05/02/20 05:07 Lactate Dehydrogenase 210 units/L (91-180) H 04/28/20 11:10 Troponin T 0.081 ng/mL (0.00-0.029) H 04/10/20 20:04 C-Reactive Protein 5.60 mg/dL (0.00-1.30) H 04/10/20 20:51 NT-Pro-B Natriuret Pep 58307 pg/mL (0-900) H 04/28/20 11:10 Total Protein 5.4 g/dL (6.3-8.2) L 05/02/20 05:07 Albumin 2.4 g/dL (3.9-5) L 05/02/20 05:07 Albumin/Globulin Ratio 0.8 % 05/02/20 05:07 Triglycerides 113 mg/dL (2-149) 04/10/20 20:04 Cholesterol 178 mg/dL (50-199) 04/10/20 20:04 LDL Cholesterol Direct 123 mg/dL (50-130) 04/10/20 20:04 HDL Cholesterol 41 mg/dL (40-59) 04/10/20 20:04 Cholesterol/HDL Ratio 4.34 % 04/10/20 20:04 Serotonin Release Assay See scanned result 04/17/20 22:45 Procalcitonin 0.38 ng/mL (<0.15) 04/27/20 09:30 TSH 3.640 mlU/mL (0.270-4.200) 04/13/20 10:06 Urine Color Yellow (Yellow) 04/11/20 Unknown Urine Turbidity Clear (Clear) 04/11/20 Unknown Urine pH 5.0 (5.0-7.0) 04/11/20 Unknown Ur Specific [place] 1.009 (1.003-1.030) 04/11/20 Unknown Urine Protein <15 mg/dl mg/dL (Negative) 04/11/20 Unknown Urine Glucose (UA) Neg mg/dL (Negative) 04/11/20 Unknown Urine Ketones Neg mg/dL (Negative) 04/11/20 Unknown Urine Blood Neg (Negative) 04/11/20 Unknown Urine Nitrite Neg (Negative) 04/11/20 Unknown Urine Bilirubin Neg (Negative) 04/11/20 Unknown Urine Urobilinogen < 2.0 mg/dL (<2.0) 04/11/20 Unknown Ur Leukocyte Esterase Neg (Negative) 04/11/20 Unknown Urine WBC (Auto) 1.0 /HPF (0.0-6.0) 04/11/20 Unknown Urine RBC (Auto) 2.0 /HPF (0.0-6.0) 04/11/20 Unknown U Epithel Cells (Auto) < 1.0 /HPF (0-13.0) 04/11/20 Unknown Hyaline Casts 3 /LPF 04/11/20 Unknown Urine Mucus Few /HPF 04/11/20 Unknown Urine Eosinophils None seen (None Seen) 04/11/20 Unknown Urine Creatinine 35.3 mg/dL (0.1-20.0) H 04/11/20 Unknown Urine Sodium 92 mmol/L 04/11/20 Unknown Heparin-induced Plt Ab Negative (Negative) 04/17/20 22:45 UF Heparin High Dose 0 % Release 04/17/20 22:45 CHERYL UFH Low Dose 0.1 0 % Release 04/17/20 22:45 CHERYL UFH Low Dose 0.5 0 % Release 04/17/20 22:45 Coronavirus (PCR) Negative (Negative) 04/29/20 10:59 Hepatitis A IgM Ab Non-reactive (NonReactive) 04/12/20 20: Hep Bs Antigen Non-reactive (Negative) 04/12/20 20: Hep B Core IgM Ab Non-reactive (NonReactive) 04/12/20 20:23 Hepatitis C Antibody Non-reactive (NonReactive) 04/12/20 20:23 Blood Type AB POSITIVE 05/02/20 07:00 Antibody Screen Negative 05/02/20 07:00 Crossmatch See Detail 05/02/20 07:00 Microbiology: Microbiology 04/26/20 18:21 Peripheral/Venous Blood Culture - Final NO GROWTH AFTER 5 DAYS 04/26/20 18:21 Peripheral/Venous Blood Culture - Final NO GROWTH AFTER 5 DAYS Gay/IV: Voiding Method Condom Catheter IV Catheter Type [Right Peripheral IV External Jugular] IV Catheter Type [Left Peripheral IV External Jugular] IV Catheter Type [Right Upper PICC Line arm] IV Catheter Type [Left Wrist] Peripheral IV IV Catheter Type [Right INT / Saline Lock Forearm] IV Catheter Type [Right Wrist] INT / Saline Lock Active Medications - Current Medications Current Medications: Generic Name Dose Route Start Last Admin Trade Name Freq PRN Reason Stop Dose Admin Acetaminophen 650 mg 04/11/20 01:26 04/23/20 23:13 Tylenol PO 650 mg Q6H PRN Administration Pain MILD(1-3)/Fever >100.5/MANCILLA Lipase/Protease/Amylase 1 each 04/11/20 14:[address] 10,500 Unit FEEDTUBE PRN PRN For Clogged Feeding Tube Arformoterol Tartrate 15 mcg 04/20/20 20:00 05/02/20 07:33 Brovana Nebu IH 15 mcg Q12HRT PRAVIN Administration Budesonide 0.5 mg 04/20/20 20:00 05/02/20 07:33 Pulmicort IH 0.5 mg Q12HRT PRAVIN Administration Norepinephrine 4 mg in 250 mls @ 7.5 mls/hr 04/25/20 17:00 05/02/20 11:41 Levophed Drip 4 Mg/Ns 250 Ml IV 0 mcg/min TITR PRAVIN 0 mls/hr Titration Protocol 2 MCG/MIN Dextrose 1,000 mls @ 42 mls/hr 04/30/20 17:00 05/02/20 00:41 D5w IV 42 mls/hr DIRECT PRAVIN Administration Dobutamine HCl/Dextrose 500 mg in 250 mls @ 9.45 mls/hr 05/02/20 12:00 Dobutrex Drip 500mg/D5w 250ml IV DIRECT PRAVIN Protocol 5 MCG/KG/MIN Insulin Human Lispro 0 unit 04/16/20 16:30 05/02/20 12:47 Humalog SUB-Q Not Given ACHS PRAVIN Protocol Magnesium Hydroxide 30 ml 04/11/20 01:26 Milk Of Magnesia PO Q4H PRN Constipation Midodrine 10 mg 05/01/20 16:00 05/02/20 10:42 Proamatine PO 10 mg TID@0800,1200,1600 PRAVIN Administration Ondansetron HCl 4 mg 04/25/20 04:53 04/25/20 05:25 Zofran IV 4 mg Q8H PRN Administration Nausea And Vomiting Simple Syrup 15 ml 04/11/20 14:22 Simple Syrup FEEDTUBE PRN PRN Hypoglycemia Simple Syrup 30 ml 04/11/20 14:22 Simple Syrup FEEDTUBE PRN PRN Hypoglycemia Sodium Bicarbonate 325 mg 04/11/20 14:22 Sodium Bicarbonate FEEDTUBE PRN PRN For Clogged Feeding Tube Sodium Chloride 10 ml 04/11/20 10:00 05/02/20 11:02 Sodium Chloride Flush Syringe 10 Ml IV 10 ml BID PRAVIN Administration Sodium Chloride 10 ml 04/11/20 01:26 Sodium Chloride Flush Syringe 10 Ml IV PRN PRN LINE FLUSH Nutrition/Malnutrition Assess - Dietary Evaluation Nutrition/Malnutrition Findings: Nutrition Notes Start: 04/11/20 13:41 Freq: Status: Active Protocol: Document 05/01/20 14:56 (Rec: 05/01/20 15:03 [id number]) Nutrition Notes Initial or Follow up Reassessment Current Diagnosis Acute Kidney Injury,CKD(stage I-IV),COPD,Coronary Artery Disease,Diabetes,Hypertension, Heart Failure Other Pertinent Diagnosis [place], Crohn's disease, seizure, colitis Current Diet NPO Labs/Tests Na 155 BUN 68 Cr 2.5 Pertinent Medications Levophed Height 5 ft 7 in Weight 63 kg [place] Body Weight (kg) 67.27 BMI 21.7 Weight change and time frame Wt change noted. Subjective/Other Information FU for TF consult. Pt denied NG tube and PEG cannot be placed until cardiac is stable . Pt failed swallow eval and this is day 4 NPO. Percent of energy/protein needs met: 0%/0% Burn Absent Trauma Absent Difficulty In Swallowing,Chewing Current % PO Negligible Minimum of two criteria No Energy Intake (non-severe) <75% Estimated Energy Requirement >7 days #1 Nutrition Diagnosis Inadequate oral intake Diagnosis Progress(for reassessment Continues documentation) Is patient on ventilator? No Is Patient Ambulatory and/or Out of Bed No REE-([place]-confined to bed) [phone] Calculation Used for Recommendations [facility] Additional Notes Protein Needs: 52-78 g (0.8-1. 2 g/kg) Fluid Needs: 1 mL/kcal Nutrition Intervention Change Diet Order: TF when medically able Nutrition Support: Nepro 1.2 at 35 mls/hr Flush 250ml q4h for hypernatremia Flush 150ml q4h once resolved Kcal 1,512 Protein (gm) 68 Fluid (mL) 610 Goal #1 TF start Anticipated Discharge Needs: Unable to determine at this time Follow-Up By: 05/03/20 Additional Comments FU for TF consult or plan of care
[2020-05-02] MEDS: DOBUTamine/D5W 500 MG/250 ML 500 MG/250 ML BAG IV SCH (14:47)
--- NOTE | 2020-05-02 15:41 | XRay Report ---
CHEST 1 VIEW INDICATION / CLINICAL INFORMATION: pleural effusion. COMPARISON: 04/28/2020 FINDINGS: SUPPORT DEVICES: Stable, satisfactory device positioning. HEART / MEDIASTINUM: Stable. LUNGS / PLEURA: Large left-sided pleural effusion with associated left-sided volume loss. Right lung appears clear. No pneumothorax. ADDITIONAL FINDINGS: No significant additional findings. IMPRESSION: 1. Large left pleural effusion with associated left lung volume loss similar when compared to 04/28/20 20. Signer Name: Joaquin Beatty MD Signed: 05/02/2020 3:35 PM Workstation Name: [id number]
[2020-05-03 05:21] LABS: Hematocrit 23.7 % (35.5-45.6); Hemoglobin 7.5 gm/dl (11.8-15.2); Mean Corpuscular HGB Conc 32 % (32-34); Mean Corpuscular Volume 79 fl (84-94)
[2020-05-03 05:31] LABS: Red Cell Distribution Width 22.4 % (13.2-15.2)
[2020-05-03 05:32] LABS: Basophils % (Auto) 0.9 % (0.0-1.8); Lymphocytes % (Auto) 14.4 % (13.4-35.0); Monocytes % (Auto) 7.2 % (0.0-7.3); Platelet Count 30 K/mm3 (140-440)
[2020-05-03 05:33] LABS: Lymphocytes # (Auto) 0.6 K/mm3 (1.2-5.4); Monocytes # (Auto) 0.3 K/mm3 (0.0-0.8)
[2020-05-03 05:42] LABS: Albumin 2.4 g/dL (3.9-5); Calcium 8.3 mg/dL (8.4-10.2)
[2020-05-03] MEDS: ARFORMOTEROL 15 MCG/2 ML NEBU IH SCH ×2 (07:41→22:35)
[2020-05-03] MEDS: BUDESONIDE 0.5 MG/2 ML NEBU IH SCH ×2 (07:41→22:35)
--- NOTE | 2020-05-03 09:19 | Progress Note ---
Assessment and Plan Assessment and plan: ---Acute respiratory failure Current Visit: Yes Status: Acute Plan to address problem: Continue oxygen supplementation --Acute on chronic systolic CHF (congestive heart failure) Current Visit: Yes Status: Acute Plan to address problem: Holding Lasix due to KIRT Will monitor daily weight, inputs and outputs. Monitor renal function closely Cardiology on board --KIRT on CKD Current Visit: Yes Status: Acute Plan to address problem: Had KIRT 2/2 vasomotor nephropathy Lasix given due to worsening pulm edema but Cr bumped. Hold lasix --Colitis Current Visit: Yes Status: Acute Plan to address problem: Resolved GI recommendations appreciated --Left sided pleural effusion Current Visit: No Status: Acute Plan to address problem: Lasix held due to worsening renal function Will get US thoracentesis when IR <1.5. Pulmonology consulted. --Arrhythmias Current Visit: Yes Status: Acute Plan to address problem: Initially started on amiodarone but discontinued due to elevated LFTs Noted to have pauses on telemetry. Metoprolol discontinued-awaiting cardiology recommendations at this time. Pacer placed at bedside Transfer patient to [facility] for now Holding apixaban due to thrombocytopenia Cardiology recommendations appreciated --Diabetes mellitus type 2 in nonobese Current Visit: No Status: Acute Plan to address problem: Lantus and sliding scale insulin. --Hyperkalemia and metabolic acidosis Current Visit: Yes Status: Acute Plan to address problem: Resolved --T12 compression fracture Current Visit: No Status: Likely chronic Plan to address problem: CT abdomen showed acute appearing T12 compression fracture 04/14. MRI thoracic without contrast ordered to further evaluate. 04/15. Patient is agitated and unable to get an MRI. 04/16. Awaiting MRI without contrast thoracic. Plan to use sedatives today. Informed RN. If positive for acute fracture, patient will need to be transferred for neurosurgery evaluation. 04/17. MRI thoracic and lumbar showed acute T12 compression fracture. Discussed case with [place] neurosurgery subscription crew leader who advised no acute intervention is necessary at this time-advised TLSO brace when patient is sitting or ambulatory. He will need follow-up with Dr. Dalton Jack, Dr. Alan Henson, Dr. Tyson Clark [contact number [phone]] after discharge. ---Elevated LFTs Current Visit: Yes Status: Acute Plan to address problem: Improving US abdomen shows no acute pathology ---Infrarenal aortic aneurysm Current Visit: No Status: Acute Plan to address problem: 3.8 cm in diameter Needs to follow-up with vascular surgery at discharge for monitoring -Shock Current Visit: No Status: Acute Plan to address problem: Improved VQ scan to rule out PE - negative -- Hypernatremia Current Visit: No Status: Acute Plan to address problem: Due to poor intake. NG tube placement ordered. Patient continues to refuse NG tube placement. Needs PEG placement. GI consulted Start water via NG tube 400cc q8 hours Trend sodium -- DVT prophylaxis Current Visit: No Status: Acute Plan to address problem: Hold heparin for now --Full code status Current Visit: No Status: Acute Disposition-home with hospice as per patient son when stable 04/11. Patient seen and examined at bedside this morning. Patient is on BiPAP. Patient is eager to go home. Otherwise denies any chest pain or palpitations. Patient CT showed possible compression fracture of T12, it is unknown if this is new. We will get MRI without contrast of the thoracic and lumbar to further evaluate. If patient actually has an acute compression fracture, he will need to have a neurosurgery evaluation so will need to be transferred to another facility for this. Otherwise, patient continue to monitor patient's respiratory status while in the IMCU. Patient reportedly failed a swallow evaluation and will need to have an NG tube placement. Tried to call son on number provided in the chart and left a message. Awaiting callback. Labs reviewed-patient has elevated inflammatory [id number], LDH. COVID-19 test has been ordered. Started patient on steroids. Ordered stat BMP, ABG, D-dimer, proBNP, ferritin, LDH. 04/12. COVID -19 test is negative. His breathing has improved so was placed on nasal cannula. Cardiology adjusted meds today. He failed swallow evaluation yesterday. He requests for food. Will reattempt swallow evaluation. Speech therapy consult. 04/13. Overnight, he developed VT and was started on amiodarone. HR better this AM. Cardiology will review medications. Patient seen and examined at bedside this AM. He requests for food. He failed a repeat speech evaluation and will need barium swallow. May need PEG placement if he fails. NG tube in place. Vitals reviewed 04/14. Heart rate improved. Remains n.p.o. with NG tube feeds. Video swallow evaluation shows mild abnormal study. Speech therapist to see patient. Patient has not been able to have an MRI of the back due to agitation. He had a CT during the admission that showed possible compression fracture of T12 but this has not been fully evaluated due to patient's ongoing conditions. Labs reviewed-renal function is worse. Discontinue Lasix. 04/15. Has been started on a diet and is tolerating. He pulled out his NG tube last night. Okay to leave NG tube for now. Plan to get an MRI performed today with sedative to evaluate T12 fracture. Patient denies any back pain. Renal function slightly improved today after Lasix was discontinued. Continue IV hydration. Nephrology recommendations appreciated 04/16. He feels better today. MRI could not be done yesterday. Hopefully patient can have an MRI done today. Creatinine 3.1 today. Patient will need placement but will need to have evaluation of possible T12 fracture prior to discharge 04/17. MRI thoracic and lumbar showed acute T12 compression fracture. Discussed case with [place] neurosurgery subscription crew leader who advised no acute intervention is necessary at this time-advised TLSO brace when patient is sitting or am bulatory. He will need follow-up with Dr. Dalton Jack, Dr. Alan Henson, Dr. Tyson Clark [contact number [phone]] after discharge. 04/18. Await Nephrology recs for d/c plans 04/19/2020. Patient reportedly with choking/coughing with swallowing. We will change to n.p.o. status right now. Speech reevaluation. Check chest x-ray to rule out aspiration pneumonia. Await nephrology recommendations for discharge. Creatinine slowly improving. CT of abdomen negative for hydronephrosis. BUN increasing. Therefore, we will check Hemoccult of stool to rule out GI bleed. Hemoglobin has been stable. 04/20/2020. Repeat chest x-ray reveals worsening bibasilar opacities. Pulmonary consulted. Doppler of left upper extremity for swelling. PT evaluation recommends subacute rehab 04/21/2020. Await pulmonary consultation for worsening bibasilar opacities. Doppler of left upper extremity pending. PT evaluation recommends subacute rehab. Creatinine has improved to near baseline of 1.8. Nephrology following 04/22/2020. Pulmonary sees no need for antibiotics or further evaluation of bibasilar opacities with CT scan. Continue current COPD treatment. Beta blockers increase for A. fib per cardiology. Await Doppler left upper extremity. PT evaluation recommends subacute rehab but case management reports patient's son Haseeb [phone]. Haseeb wants patient to return home with [facility]. 04/23/2020. Continue beta-blockers for atrial fibrillation per cardiology. Await left upper extremity Doppler ultrasound for left upper extremity swelling. PT evaluation recommends subacute rehab but case management reports patient's son Haseeb [phone]. Haseeb wants patient to return home with [facility]. Creatinine appears to be improved to baseline. Anticipate discharge in the next 1 to 2 days. 04/24/2020. Continue beta-blockers for atrial fibrillation per cardiology. Await left upper extremity Doppler ultrasound for left upper extremity swelling. Haseeb (son [phone]) wants patient to return home with [facility]. Creatinine appears to be improved to baseline. Patient now with hypernatremia. ?Tenuous IV fluid hydration--defer to nephrology. 04/25. Blood pressure low this morning but subsequently improved with slow bolus . Sodium today is 150. Patient is dehydrated and is asking for water to drink. I have discussed with RN to ensure patient gets enough water to help with dehydration. His heart rate is controlled and cardiology has adjusted the medication today due to slight hypotension.-Metoprolol now 25 every 8 hours. He is alert and oriented x3 this morning and is able to make needs known. Check BMP every 8 hours for now. Nephrology following 04/26. Transferred to the ICU due to persisted hypotension. WBC trending up. Started on antibiotics. Aetiology of shock could be sepsis. Other differentials - cardiogenic vs obstructive (has been on eliquis 2.5mg BID so not likely. His ddimer is elevated and he cannot get contrast - will get VQ scan. Critical care to see. Blood culture ordered. Repeat labs in AM 04/27. On levophed. Leukocytosis better. Check procalcitonin. On antibiotics. Rest of labs shows anemia and thrombocytopenia. Will dc eliquis. Lasix given but Cr bump noted. Holding lasix for now. Repeat chest xray to evaluate infiltrate and effusion 04/28. BP stable so he was transferred to telemetry. He failed swallow evaluation. Place an NG tube and start free water via NG tube. DC D5w. He will need GI evaluation for PEG tube placement. Lasix was given for worsening infiltrate and effusion but Cr bumped. Awaiting repeat chest xray to evaluate for infiltrate. Ordered INR and BNP. May need US thoracentesis for left pleural effusion. Will get pulm consult. Labs reviewed- still has hypernatremia - nephrology following. heme consult for thrombocytopenia. GI consulted for PEG tube placement 04/29. NG tube not yet placed. Sodium 155. Needs to be started on water via NG tube. No IVF as he has systolic CHF. Consultants notes reviewed. 04/30. Patient continues to refuse NG tube. Patient noted to have bradycardia this a.m. down to 30s-40s. Also has pauses up to 2 seconds this AM. Metoprolol has been discontinued. Patient needed 1 dose of atropine with slight improvement. Pacer placed at bedside. Patient was transferred to the [facility] for close monitoring. Cardiology has been paged and awaiting callback. Discussed with RN. Plan for PEG tube placement as per GI. Maintain n.p.o. for now 05/01. Now in the ICU on pressors due to hypotension. GI was consulted as patient has failed multiple swallow evaluations during this admission and GI plans to place a PEG tube when cardiac status is stable. Cardiology to evaluate today. Heart rate remains in the 40s to 50s. 05/02/2020; patient is on low-dose of Levophed. Cardiology is following for bradycardia, hypotension and abnormal rhythm, he has ejection fraction of 15%. GI is considering to do PEG tube placement once stable cardiac renee. Patient is on hospice care at home but whenever he becomes sick family revoked hospice and bring to the hospital. Once stabilized will take him and keep him on hospice. Management plan discussed with cardiology PA, chief fishery division and case management. 05/03/2020; patient is off Levophed. Cardiology is following for bradycardia, hypotension and abnormal rhythm, he has ejection fraction of 15%. GI is considering to do PEG tube placement once stable cardiac rneee. Patient is on hospice care at home but whenever he becomes sick family revoked hospice and bring to the hospital. Once stabilized will take him and keep him on hospice. Transfer to telemetry floor. History Interval history: Patient was seen and evaluated this morning He has shortness of breath and on 3 L of oxygen Patient is anemic and is getting blood transfusion Hypotension, bradycardia Hospitalist Physical - Physical exam Narrative exam: Patient is on 3 L of oxygen The patient appeared well nourished and normally developed. Vital signs as documented. Head exam is unremarkable. No scleral icterus . Neck is without jugular venous distension, thyromegaly, or carotid bruits. Lungs decreased air entry. Cardiac exam reveals regular rate and Rhythm. Abdominal exam reveals normal bowel sounds, nontender, no organomegaly. Extremities are nonedematous and both femoral and pedal pulses are normal. SYSTEMS ADMINISTRATOR: Alert and oriented 3. No focal weakness. - Constitutional Vitals: Temp Pulse Resp BP Pulse Ox 97 F L 96 H 28 H 98/56 99 05/03/20 00:00 05/03/20 08:04 05/03/20 08:04 05/03/20 06:00 05/03/20 08:07 General appearance: Present: no acute distress HEART Score - HEART Score Troponin: Troponin T 0.081 ng/mL (0.00-0.029) H 04/10/20 20:04 Results - Labs CBC & Chem 7: 05/03/20 04:31 05/03/20 04:31 Labs: Laboratory Last Values WBC 4.0 K/mm3 (4.5-11.0) L 05/03/20 04:31 RBC 3.00 M/mm3 (3.65-5.03) L 05/03/20 04:31 Hgb 7.5 gm/dl (11.8-15.2) L 05/03/20 04:31 Hct 23.7 % (35.5-45.6) L 05/03/20 04:31 MCV 79 fl (84-94) L 05/03/20 04:31 MCH 25 pg (28-32) L 05/03/20 04:31 MCHC 32 % (32-34) 05/03/20 04:31 RDW 22.4 % (13.2-15.2) H 05/03/20 04:31 Plt Count 30 K/mm3 (140-440) L 05/03/20 04:31 Lymph % (Auto) 14.4 % (13.4-35.0) 05/03/20 04:31 [place] % (Auto) 7.2 % (0.0-7.3) 05/03/20 04:31 Eos % (Auto) 1.0 % (0.0-4.3) 05/03/20 04:31 Baso % (Auto) 0.9 % (0.0-1.8) 05/03/20 04:31 Lymph # (Auto) 0.6 K/mm3 (1.2-5.4) L 05/03/20 04:31 [place] # (Auto) 0.3 K/mm3 (0.0-0.8) 05/03/20 04:31 Eos # (Auto) 0.0 K/mm3 (0.0-0.4) 05/03/20 04:31 Baso # (Auto) 0.0 K/mm3 (0.0-0.1) 05/03/20 04:31 Add Manual Diff Complete 04/26/20 10:13 Total Counted 100 04/26/20 10:13 Seg Neutrophils % 76.5 % (40.0-70.0) H 05/03/20 04:31 Seg Neuts % (Manual) 97.0 % (40.0-70.0) H 04/26/20 10:13 Band Neutrophils % 0 % 04/26/20 10:13 Lymphocytes % (Manual) 1.0 % (13.4-35.0) L 04/26/20 10:13 Reactive Lymphs % (Man) 0 % 04/26/20 10:13 Monocytes % (Manual) 1.0 % (0.0-7.3) 04/26/20 10:13 Eosinophils % (Manual) 0 % (0.0-4.3) 04/26/20 10:13 Basophils % (Manual) 1.0 % (0.0-1.8) 04/26/20 10:13 Metamyelocytes % 0 % 04/26/20 10:13 Myelocytes % 0 % 04/26/20 10:13 Promyelocytes % 0 % 04/26/20 10:13 Blast Cells % 0 % 04/26/20 10:13 Nucleated RBC % Not Reportable 04/26/20 10:13 Seg Neutrophils # 3.1 K/mm3 (1.8-7.7) 05/03/20 04:31 Seg Neutrophils # Man 14.7 K/mm3 (1.8-7.7) H 04/26/20 10:13 Band Neutrophils # 0.0 K/mm3 04/26/20 10:13 Lymphocytes # (Manual) 0.2 K/mm3 (1.2-5.4) L 04/26/20 10:13 Abs React Lymphs (Man) 0.0 K/mm3 04/26/20 10:13 Monocytes # (Manual) 0.2 K/mm3 (0.0-0.8) 04/26/20 10:13 Eosinophils # (Manual) 0.0 K/mm3 (0.0-0.4) 04/26/20 10:13 Basophils # (Manual) 0.2 K/mm3 (0.0-0.1) H 04/26/20 10:13 Metamyelocytes # 0.0 K/mm3 04/26/20 10:13 Myelocytes # 0.0 K/mm3 04/26/20 10:13 Promyelocytes # 0.0 K/mm3 04/26/20 10:13 Blast Cells # 0.0 K/mm3 04/26/20 10:13 WBC Morphology Not Reportable 04/26/20 10:13 Hypersegmented Neuts Not Reportable 04/26/20 10:13 Hyposegmented Neuts Not Reportable 04/26/20 10:13 Hypogranular Neuts Not Reportable 04/26/20 10:13 Smudge Cells Not Reportable 04/26/20 10:13 Toxic Granulation Not Reportable 04/26/20 10:13 Toxic Vacuolation Not Reportable 04/26/20 10:13 Dohle Bodies Not Reportable 04/26/20 10:13 Pelger-Huet Anomaly Not Reportable 04/26/20 10:13 Barby Rods Not Reportable 04/26/20 10:13 Platelet Estimate Consistent w auto 04/26/20 10:13 Clumped Platelets Not Reportable 04/26/20 10:13 Plt Clumps, EDTA Not Reportable 04/26/20 10:13 Large Platelets Not Reportable 04/26/20 10:13 Giant Platelets Not Reportable 04/26/20 10:13 Platelet Satelliting Not Reportable 04/26/20 10:13 Plt Morphology Comment Not Reportable 04/26/20 10:13 RBC Morphology Not Reportable 04/26/20 10:13 Dimorphic RBCs Not Reportable 04/26/20 10:13 Polychromasia Not Reportable 04/26/20 10:13 Hypochromasia 1+ 04/26/20 10:13 Poikilocytosis Not Reportable 04/26/20 10:13 Anisocytosis 1+ 04/26/20 10:13 Microcytosis Not Reportable 04/26/20 10:13 Macrocytosis Not Reportable 04/26/20 10:13 Spherocytes Not Reportable 04/26/20 10:13 Pappenheimer Bodies Not Reportable 04/26/20 10:13 Sickle Cells Not Reportable 04/26/20 10:13 Target Cells Not Reportable 04/26/20 10:13 Tear Drop Cells Not Reportable 04/26/20 10:13 Ovalocytes Not Reportable 04/26/20 10:13 Helmet Cells Not Reportable 04/26/20 10:13 [place] Bodies Not Reportable 04/26/20 10:13 Lynx Rings Not Reportable 04/26/20 10:13 Marcia Cells Few 04/26/20 10:13 Bite Cells Not Reportable 04/26/20 10:13 Crenated Cell Not Reportable 04/26/20 10:13 Elliptocytes 1+ 04/26/20 10:13 Acanthocytes (Spur) Not Reportable 04/26/20 10:13 Rouleaux Not Reportable 04/26/20 10:13 Hemoglobin C Crystals Not Reportable 04/26/20 10:13 Schistocytes Few 04/26/20 10:13 Malaria parasites Not Reportable 04/26/20 10:13 Willie Bodies Not Reportable 04/26/20 10:13 Hem Pathologist Commnt No 04/26/20 10:13 PT 17.4 Sec. (12.2-14.9) H 05/01/20 07:10 INR 1.43 (0.87-1.13) H 05/01/20 07:10 D-Dimer 1259.67 ng/mlDDU (0-234) H 04/25/20 16:09 Heparin Anti-Xa Level 0.35 U.I./ml (0.3-0.7) 04/13/20 05:06 Heparin Anti-Xa, Unfract Negative (Negative) 04/17/20 22:45 ABG pH 7.387 pH Units (7.350-7.450) 04/29/20 11:50 ABG pCO2 31.8 mm Hg 04/29/20 11:50 ABG pO2 102.9 mm Hg (80.0-90.0) H 04/29/20 11:50 ABG HCO3 18.7 mmol/L (20.0-26.0) L 04/29/20 11:50 ABG O2 Saturation 97.8 % (95.0-99.0) 04/29/20 11:50 ABG O2 Content 10.2 (0.0-44) 04/29/20 11:50 ABG Base Excess -5.7 mmol/L (-2.0-3.0) L 04/29/20 11:50 ABG Hemoglobin 7.5 gm/dl (14.0-18.0) L 04/29/20 11:50 ABG Carboxyhemoglobin 2.2 % (0.0-5.0) 04/29/20 11:50 ABG Methemoglobin 0.4 % (0.0-1.5) 04/29/20 11:50 Oxyhemoglobin 95.3 % (95.0-99.0) 04/29/20 11:50 FiO2 32 % 04/29/20 11:50 Sodium 154 mmol/L (137-145) H 05/03/20 04:31 Potassium 3.2 mmol/L (3.6-5.0) L 05/03/20 04:31 Chloride 121.9 mmol/L (98-107) H 05/03/20 04:31 Carbon Dioxide 17 mmol/L (22-30) L 05/03/20 04:31 Anion Gap 18 mmol/L 05/03/20 04:31 BUN 57 mg/dL (9-20) H 05/03/20 04:31 Creatinine 2.4 mg/dL (0.8-1.3) H 05/03/20 04:31 Estimated GFR 27 ml/min 05/03/20 04:31 BUN/Creatinine Ratio 24 % 05/03/20 04:31 Glucose 170 mg/dL (75-100) H 05/03/20 04:31 POC Glucose 148 mg/dL (70-105) H 05/03/20 08:59 Lactic Acid 3.00 mmol/L (0.7-2.0) H* 04/12/20 06:22 Calcium 8.3 mg/dL (8.4-10.2) L 05/03/20 04:31 Phosphorus 5.60 mg/dL (2.5-4.5) H 04/10/20 22:50 Magnesium 2.40 mg/dL (1.7-2.3) H 04/10/20 22:50 Ferritin 135.1 ng/mL (30.0-300.0) 04/11/20 15:11 Total Bilirubin 2.30 mg/dL (0.1-1.2) H 05/03/20 04:31 Direct Bilirubin 0.6 mg/dL (0-0.2) H 04/15/20 04:56 Indirect Bilirubin 0.3 mg/dL 04/15/20 04:56 AST 19 units/L (5-40) 05/03/20 04:31 ALT 22 units/L (7-56) 05/03/20 04:31 Alkaline Phosphatase 73 units/L (35-129) 05/03/20 04:31 Lactate Dehydrogenase 210 units/L (91-180) H 04/28/20 11:10 Troponin T 0.081 ng/mL (0.00-0.029) H 04/10/20 20:04 C-Reactive Protein 5.60 mg/dL (0.00-1.30) H 04/10/20 20:51 NT-Pro-B Natriuret Pep 64277 pg/mL (0-900) H 04/28/20 11:10 Total Protein 5.2 g/dL (6.3-8.2) L 05/03/20 04:31 Albumin 2.4 g/dL (3.9-5) L 05/03/20 04:31 Albumin/Globulin Ratio 0.9 % 05/03/20 04:31 Triglycerides 113 mg/dL (2-149) 04/10/20 20:04 Cholesterol 178 mg/dL (50-199) 04/10/20 20:04 LDL Cholesterol Direct 123 mg/dL (50-130) 04/10/20 20:04 HDL Cholesterol 41 mg/dL (40-59) 04/10/20 20:04 Cholesterol/HDL Ratio 4.34 % 04/10/20 20:04 Serotonin Release Assay See scanned result 04/17/20 22:45 Procalcitonin 0.38 ng/mL (<0.15) 04/27/20 09:30 TSH 3.640 mlU/mL (0.270-4.200) 04/13/20 10:06 Urine Color Yellow (Yellow) 04/11/20 Unknown Urine Turbidity Clear (Clear) 04/11/20 Unknown Urine pH 5.0 (5.0-7.0) 04/11/20 Unknown Ur Specific [place] 1.009 (1.003-1.030) 04/11/20 Unknown Urine Protein <15 mg/dl mg/dL (Negative) 04/11/20 Unknown Urine Glucose (UA) Neg mg/dL (Negative) 04/11/20 Unknown Urine Ketones Neg mg/dL (Negative) 04/11/20 Unknown Urine Blood Neg (Negative) 04/11/20 Unknown Urine Nitrite Neg (Negative) 04/11/20 Unknown Urine Bilirubin Neg (Negative) 04/11/20 Unknown Urine Urobilinogen < 2.0 mg/dL (<2.0) 04/11/20 Unknown Ur Leukocyte Esterase Neg (Negative) 04/11/20 Unknown Urine WBC (Auto) 1.0 /HPF (0.0-6.0) 04/11/20 Unknown Urine RBC (Auto) 2.0 /HPF (0.0-6.0) 04/11/20 Unknown U Epithel Cells (Auto) < 1.0 /HPF (0-13.0) 04/11/20 Unknown Hyaline Casts 3 /LPF 04/11/20 Unknown Urine Mucus Few /HPF 04/11/20 Unknown Urine Eosinophils None seen (None Seen) 04/11/20 Unknown Urine Creatinine 35.3 mg/dL (0.1-20.0) H 04/11/20 Unknown Urine Sodium 92 mmol/L 04/11/20 Unknown Heparin-induced Plt Ab Negative (Negative) 04/17/20 22:45 UF Heparin High Dose 0 % Release 04/17/20 22:45 CHERYL UFH Low Dose 0.1 0 % Release 04/17/20 22:45 CHERYL UFH Low Dose 0.5 0 % Release 04/17/20 22:45 Coronavirus (PCR) Negative (Negative) 04/29/20 10:59 Hepatitis A IgM Ab Non-reactive (NonReactive) 11/18/20 20:23 Hep Bs Antigen Non-reactive (Negative) 04/12/20 20:23 Hep B Core IgM Ab Non-reactive (NonReactive) 04/12/20 20:23 Hepatitis C Antibody Non-reactive (NonReactive) 04/12/20 20:23 Blood Type AB POSITIVE 05/02/20 07:00 Antibody Screen Negative 05/02/20 07:00 Crossmatch See Detail 05/02/20 07:00 Gay/IV: Voiding Method Urinal IV Catheter Type [Right Peripheral IV External Jugular] IV Catheter Type [Left Peripheral IV External Jugular] IV Catheter Type [Right Upper PICC Line arm] IV Catheter Type [Left Wrist] Peripheral IV IV Catheter Type [Right INT / Saline Lock Forearm] IV Catheter Type [Right Wrist] INT / Saline Lock Active Medications - Current Medications Current Medications: Generic Name Dose Route Start Last Admin Trade Name Freq PRN Reason Stop Dose Admin Acetaminophen 650 mg 04/11/20 01:26 04/23/20 23:13 Tylenol PO 650 mg Q6H PRN Administration Pain MILD(1-3)/Fever >100.5/MANCILLA Lipase/Protease/Amylase 1 each 04/11/20 14:22 Pancremiley Saenz 10,500 Unit FEEDTUBE PRN PRN For Clogged Feeding Tube Arformoterol Tartrate 15 mcg 04/20/20 20:00 05/03/20 07:41 Brovana Nebu IH 15 mcg Q12HRT PRAVIN Administration Budesonide 0.5 mg 04/20/20 20:00 05/03/20 07:41 Pulmicort IH 0.5 mg Q12HRT PRAVIN Administration Norepinephrine 4 mg in 250 mls @ 7.5 mls/hr 04/25/20 17:00 05/02/20 11:41 Levophed Drip 4 Mg/Ns 250 Ml IV 0 mcg/min TITR PRAVIN 0 mls/hr Titration Protocol 2 MCG/MIN Dextrose 1,000 mls @ 60 mls/hr 04/30/20 17:00 05/02/20 00:41 D5w IV 42 mls/hr DIRECT PRAVIN Administration Dobutamine HCl/Dextrose 500 mg in 250 mls @ 9.45 mls/hr 05/02/20 12:00 05/02/20 14:47 Dobutrex Drip 500mg/D5w 250ml IV 5 mcg/kg/min DIRECT PRAVIN 9.45 mls/hr Administration Protocol 5 MCG/KG/MIN Insulin Human Lispro 0 unit 04/16/20 16:30 05/02/20 22:00 Humalog SUB-Q Not Given ACHS [facility] Protocol Magnesium Hydroxide 30 ml 04/11/20 01:26 Milk Of Magnesia PO Q4H PRN Constipation Midodrine 10 mg 05/01/20 16:00 05/02/20 17:49 Proamatine PO 10 mg TID@0800,1200,1600 [facility] Administration Ondansetron HCl 4 mg 04/25/20 04:53 04/25/20 05:25 Zofran IV 4 mg Q8H PRN Administration Nausea And Vomiting Simple Syrup 15 ml 04/11/20 14:22 Simple Syrup FEEDTUBE PRN PRN Hypoglycemia Simple Syrup 30 ml 04/11/20 14:22 Simple Syrup FEEDTUBE PRN PRN Hypoglycemia Sodium Bicarbonate 325 mg 04/11/20 14:22 Sodium Bicarbonate FEEDTUBE PRN PRN For Clogged Feeding Tube Sodium Chloride 10 ml 04/11/20 10:00 05/03/20 03:19 Sodium Chloride Flush Syringe 10 Ml IV Not Given BID PRAVIN Sodium Chloride 10 ml 04/11/20 01:26 Sodium Chloride Flush Syringe 10 Ml IV PRN PRN LINE FLUSH Nutrition/Malnutrition Assess - Dietary Evaluation Nutrition/Malnutrition Findings: Nutrition Notes Start: 04/11/20 13:41 Freq: Status: Active Protocol: Document 05/01/20 14:56 (Rec: 05/01/20 15:03 [id number]) Nutrition Notes Initial or Follow up Reassessment Current Diagnosis Acute Kidney Injury,CKD(stage I-IV),COPD,Coronary Artery Disease,Diabetes,Hypertension, Heart Failure Other Pertinent Diagnosis MS, Crohn's disease, seizure, colitis Current Diet NPO Labs/Tests Na 155 BUN 68 Cr 2.5 Pertinent Medications Levophed Height 5 ft 7 in Weight 63 kg [place] Body Weight (kg) 67.27 BMI 21.7 Weight change and time frame Wt change noted. Subjective/Other Information FU for TF consult. Pt denied NG tube and PEG cannot be placed until cardiac is stable . Pt failed swallow eval and this is day 4 NPO. Percent of energy/protein needs met: 0%/0% Burn Absent Trauma Absent Difficulty In Swallowing,Chewing Current % PO Negligible Minimum of two criteria No Energy Intake (non-severe) <75% Estimated Energy Requirement >7 days #1 Nutrition Diagnosis Inadequate oral intake Diagnosis Progress(for reassessment Continues documentation) Is patient on ventilator? No Is Patient Ambulatory and/or Out of Bed No REE-([facility]-confined to bed) 2077.125 Calculation Used for Recommendations [facility] Additional Notes Protein Needs: 52-78 g (0.8-1. 2 g/kg) Fluid Needs: 1 mL/kcal Nutrition Intervention Change Diet Order: TF when medically able Nutrition Support: Nepro 1.2 at 35 mls/hr Flush 250ml q4h for hypernatremia Flush 150ml q4h once resolved Kcal 1,512 Protein (gm) 68 Fluid (mL) 610 Goal #1 TF start Anticipated Discharge Needs: Unable to determine at this time Follow-Up By: 05/03/20 Additional Comments FU for TF consult or plan of care
[2020-05-03] MEDS: MIDODRINE 5 MG TAB PO SCH ×3 (09:22→17:10)
[2020-05-03] MEDS: INSULIN LISPRO 100 UNIT/ML VIAL 3 mL SUB-Q SCH ×4 (09:28→22:55)
--- NOTE | 2020-05-03 09:48 | Progress Note ---
<SENA HIGGINS - Last Filed: 05/03/20 09:46> Assessment and Plan Chronic systolic heart failure LVEF 15-20% by echo 01/2020 VQ scan reports a low probability for PE. COVID 19 test was negative Paroxysmal Atrial fibrillation vs flutter metoprolol discontinued due to sinus bradycardia low dose Eliquis discontinued due to development of severe anemia normal TSH of 3.6 Chronic anemia Severe Thrombocytopenia Hypotension on midodrine Dehydration Hx of Ischemic cardiomyopathy noncompliant with outpatient cardiac follow up. Hx of CAD Abdominal pain CT scan of the abdomen suggestive of colitis. Renal insufficiency Conservative cardiac management. Subjective Date of service: 05/03/20 Principal diagnosis: CHF Interval history: Patient is alert with confusion but appears stable. No longer on pressors. IV dobutrex continues. Current BP is 99/51. Objective Vital Signs Temp Pulse Pulse Pulse Resp Resp Resp 05/03/20 08:07 05/03/20 08:04 96 H 97 H 28 H 24 05/03/20 06:00 101 H 21 05/03/20 05:45 103 H 26 H 05/03/20 05:31 96 H 30 H 05/03/20 05:15 94 H 22 05/03/20 05:00 97 H 25 H 05/03/20 04:45 112 H 23 05/03/20 04:30 69 30 H 05/03/20 04:15 54 L 28 H 05/03/20 04:00 54 L 24 05/03/20 03:45 70 27 H 05/03/20 03:31 68 29 H 05/03/20 03:15 63 23 05/03/20 03:00 65 20 05/03/20 02:45 70 32 H 05/03/20 02:30 59 L 23 05/03/20 02:15 58 L 24 05/03/20 02:00 54 L 31 H 05/03/20 01:45 59 L 21 05/03/20 01:31 63 21 05/03/20 01:15 69 30 H 05/03/20 01:00 72 29 H 05/03/20 00:45 57 L 19 05/03/20 00:31 70 25 H 05/03/20 00:15 60 29 H 05/03/20 00:00 97 F L 59 L 33 H 05/02/20 23:45 65 28 H 05/02/20 23:30 58 L 29 H 05/02/20 23:15 68 30 H 05/02/20 23:00 05/02/20 22:45 71 31 H 05/02/20 22:30 76 30 H 05/02/20 22:15 56 L 25 H 05/02/20 22:01 65 26 H 05/02/20 21:45 64 20 05/02/20 21:31 66 29 H 05/02/20 21:15 73 21 05/02/20 21:11 57 L 27 H 05/02/20 21:00 59 L 24 05/02/20 20:45 69 29 H 05/02/20 20:30 56 L 30 H 05/02/20 20:15 59 L 28 H 05/02/20 20:00 75 20 05/02/20 19:57 97 H 32 H 05/02/20 19:45 05/02/20 19:30 63 18 05/02/20 19:16 70 20 05/02/20 19:00 65 27 H 05/02/20 18:45 66 23 05/02/20 18:30 59 L 18 05/02/20 18:15 60 22 05/02/20 18:00 66 28 H 05/02/20 17:46 64 23 05/02/20 17:30 72 16 05/02/20 17:15 68 26 H 05/02/20 17:00 76 25 H 05/02/20 16:46 75 18 05/02/20 16:30 65 21 05/02/20 16:16 59 L 29 H 05/02/20 16:00 97.9 F 63 15 05/02/20 15:45 61 25 H 05/02/20 15:30 73 22 05/02/20 15:15 59 L 31 H 05/02/20 15:00 69 28 H 05/02/20 14:45 116 H 26 H 05/02/20 14:30 66 38 H 05/02/20 14:16 65 27 H 05/02/20 14:00 61 22 05/02/20 13:45 60 28 H 05/02/20 13:35 94.3 F L 71 20 05/02/20 13:30 77 37 H 05/02/20 13:16 76 24 05/02/20 13:05 94.5 F L 78 25 H 05/02/20 13:00 70 17 05/02/20 12:45 65 15 05/02/20 12:35 94.0 F L 63 22 05/02/20 12:30 69 19 05/02/20 12:15 63 13 05/02/20 12:05 94.0 F L 68 12 05/02/20 12:00 97.9 F 62 17 05/02/20 11:46 69 13 05/02/20 11:35 93.6 F L 68 12 05/02/20 11:30 61 16 05/02/20 11:15 59 L 17 05/02/20 11:05 34.3 F L 60 14 05/02/20 11:00 70 17 05/02/20 10:50 94.5 F L 69 22 05/02/20 10:45 72 24 05/02/20 10:30 75 23 05/02/20 10:15 76 30 H 05/02/20 10:00 76 28 H BP Pulse Ox 05/03/20 08:07 99 05/03/20 08:04 05/03/20 06:00 98/56 99 05/03/20 05:45 84/57 96 05/03/20 05:31 84/57 97 05/03/20 05:15 88/51 99 05/03/20 05:00 88/51 98 05/03/20 04:45 91/42 100 05/03/20 04:30 91/42 97 05/03/20 04:15 97/47 98 05/03/20 04:00 97/47 97 05/03/20 03:45 84/48 99 05/03/20 03:31 84/48 99 05/03/20 03:15 98/73 99 05/03/20 03:00 98/73 98 05/03/20 02:45 95/47 97 05/03/20 02:30 97/45 98 05/03/20 02:15 105/43 99 05/03/20 02:00 102/48 96 05/03/20 01:45 100/46 94 05/03/20 01:31 102/47 97 05/03/20 01:15 92/44 97 05/03/20 01:00 92/44 98 05/03/20 00:45 91/44 98 05/03/20 00:31 91/44 98 05/03/20 00:15 95/48 98 05/03/20 00:00 95/48 98 05/02/20 23:45 116/41 99 05/02/20 23:30 116/41 98 05/02/20 23:15 96/45 100 05/02/20 23:00 96/45 05/02/20 22:45 107/45 99 05/02/20 22:30 107/45 99 05/02/20 22:15 105/46 97 05/02/20 22:01 95/39 98 05/02/20 21:45 90/43 96 05/02/20 21:31 90/43 96 05/02/20 21:15 90/43 99 05/02/20 21:11 99/41 99 05/02/20 21:00 99/41 95 05/02/20 20:45 94/45 98 05/02/20 20:30 107/47 99 05/02/20 20:15 107/47 99 05/02/20 20:00 102/45 05/02/20 19:57 05/02/20 19:45 94/43 05/02/20 19:30 91/46 05/02/20 19:16 91/46 05/02/20 19:00 100/45 05/02/20 18:45 100/45 05/02/20 18:30 100/48 05/02/20 18:15 100/48 05/02/20 18:00 109/49 97 05/02/20 17:46 101/48 05/02/20 17:30 107/54 96 05/02/20 17:15 107/54 05/02/20 17:00 95/59 05/02/20 16:46 95/59 05/02/20 16:30 105/49 96 05/02/20 16:16 97/41 97 05/02/20 16:00 97/50 97 05/02/20 15:45 95/41 97 05/02/20 15:30 101/47 94 05/02/20 15:15 101/47 97 05/02/20 15:00 85/50 98 05/02/20 14:45 94/50 93 05/02/20 14:30 90/58 05/02/20 14:16 93/44 96 05/02/20 14:00 81/59 97 05/02/20 13:45 102/50 92 05/02/20 13:35 102/50 100 05/02/20 13:30 103/58 97 05/02/20 13:16 94/67 05/02/20 13:05 103/58 97 05/02/20 13:00 95/48 97 05/02/20 12:45 93/50 98 05/02/20 12:35 93/50 97 05/02/20 12:30 95/48 98 05/02/20 12:15 97/42 96 05/02/20 12:05 93/45 96 05/02/20 12:00 95/51 96 05/02/20 11:46 97/45 96 05/02/20 11:35 93/45 96 05/02/20 11:30 93/45 95 05/02/20 11:15 100/43 95 05/02/20 11:05 103/46 97 05/02/20 11:00 96/50 91 05/02/20 10:50 108/53 92 05/02/20 10:45 108/53 93 05/02/20 10:30 100/53 05/02/20 10:15 100/53 90 05/02/20 10:00 110/53 96 - Physical Examination General: No Apparent Distress, Cachectic HEENT: Positive: PERRL Neck: Positive: trachea midline Cardiac: Positive: Reg Rate and Rhythm Lungs: Positive: Decreased Breath Sounds Neuro: Positive: Weakness Extremities: Absent: edema - Labs and Meds Cardiac Enzymes 05/03/20 Range/Units 04:31 AST 19 (5-40) units/L CBC 05/03/20 Range/Units 04:31 WBC 4.0 L (4.5-11.0) K/mm3 RBC 3.00 L (3.65-5.03) M/mm3 Hgb 7.5 L (11.8-15.2) gm/dl Hct 23.7 L (35.5-45.6) % Plt Count 30 L (140-440) K/mm3 Lymph # (Auto) 0.6 L (1.2-5.4) K/mm3 [place] # (Auto) 0.3 (0.0-0.8) K/mm3 Eos # (Auto) 0.0 (0.0-0.4) K/mm3 Baso # (Auto) 0.0 (0.0-0.1) K/mm3 Comprehensive Metabolic Panel 05/03/20 Range/Units 04:31 Sodium 154 H (137-145) mmol/L Potassium 3.2 L (3.6-5.0) mmol/L Chloride 121.9 H (98-107) mmol/L Carbon Dioxide 17 L (22-30) mmol/L BUN 57 H (9-20) mg/dL Creatinine 2.4 H (0.8-1.3) mg/dL Glucose 170 H (75-100) mg/dL Calcium 8.3 L (8.4-10.2) mg/dL AST 19 (5-40) units/L ALT 22 (7-56) units/L Alkaline Phosphatase 73 (35-129) units/L Total Protein 5.2 L (6.3-8.2) g/dL Albumin 2.4 L (3.9-5) g/dL <DOTTIE REYNOSO - Last Filed: 05/04/20 07:05> Assessment and Plan - Patient Problems (1) Acute and chronic respiratory failure Current Visit: Yes Status: Acute (2) Acute exacerbation of CHF (congestive heart failure) Current Visit: Yes Status: Acute (3) Coronary artery disease Current Visit: Yes Status: Acute Subjective Interval history: I saw this pt & agree with the Dx & Tx plan. Objective Vital Signs Temp Pulse Pulse Pulse Resp Resp Resp 05/04/20 03:47 97.6 F 65 17 05/04/20 00:00 72 05/03/20 23:44 97.2 F L 72 18 05/03/20 22:43 91 H 78 20 22 05/03/20 22:37 05/03/20 20:35 96.8 F L 68 20 05/03/20 20:00 72 05/03/20 18:47 97.8 F 65 20 05/03/20 17:30 56 L 31 H 05/03/20 17:21 55 L 26 H 05/03/20 17:11 73 11 L 05/03/20 17:00 79 27 H 05/03/20 16:51 87 27 H 05/03/20 16:45 05/03/20 16:30 05/03/20 16:11 58 L 22 05/03/20 16:01 52 L 29 H 05/03/20 16:00 90 05/03/20 15:45 57 L 20 05/03/20 15:30 56 L 24 05/03/20 15:15 55 L 26 H 05/03/20 15:00 57 L 18 05/03/20 14:45 58 L 32 H 05/03/20 14:30 96 H 28 H 05/03/20 14:15 05/03/20 14:01 05/03/20 13:45 05/03/20 13:31 05/03/20 13:15 05/03/20 13:00 60 16 05/03/20 12:45 62 32 H 05/03/20 12:31 74 21 05/03/20 12:15 74 24 05/03/20 12:01 57 L 12 05/03/20 12:00 93 H 05/03/20 11:45 83 19 05/03/20 11:30 77 05/03/20 11:15 75 15 05/03/20 11:00 55 L 24 05/03/20 10:45 74 28 H 05/03/20 10:30 56 L 33 H 05/03/20 10:15 66 25 H 05/03/20 10:00 67 17 05/03/20 09:45 68 22 05/03/20 09:30 84 28 H 05/03/20 09:15 79 17 05/03/20 09:09 67 25 H 05/03/20 08:45 05/03/20 08:31 05/03/20 08:15 05/03/20 08:07 05/03/20 08:04 96 H 97 H 28 H 24 05/03/20 08:00 58 L 20 05/03/20 07:45 105 H 22 05/03/20 07:30 102 H 25 H 05/03/20 07:15 BP Pulse Ox 05/04/20 03:47 108/52 98 05/04/20 00:00 05/03/20 23:44 102/55 98 05/03/20 22:43 05/03/20 22:37 98 05/03/20 20:35 115/65 97 05/03/20 20:00 98 05/03/20 18:47 96/46 100 05/03/20 17:30 105/67 94 05/03/20 17:21 105/60 100 05/03/20 17:11 100/66 100 05/03/20 17:00 100/66 98 05/03/20 16:51 94/56 99 05/03/20 16:45 94/56 05/03/20 16:30 93/52 05/03/20 16:11 105/47 100 05/03/20 16:01 105/47 100 05/03/20 16:00 05/03/20 15:45 105/51 100 05/03/20 15:30 103/49 100 05/03/20 15:15 92/50 100 05/03/20 15:00 95/52 100 05/03/20 14:45 107/63 100 05/03/20 14:30 109/74 100 05/03/20 14:15 107/40 100 05/03/20 14:01 107/40 100 05/03/20 13:45 100/53 100 05/03/20 13:31 100/53 100 05/03/20 13:15 95/50 100 05/03/20 13:00 100/51 100 05/03/20 12:45 100/62 100 05/03/20 12:31 100/62 91 05/03/20 12:15 104/48 93 05/03/20 12:01 104/48 78 L 05/03/20 12:00 05/03/20 11:45 96/58 97 05/03/20 11:30 96/58 05/03/20 11:15 101/57 96 05/03/20 11:00 109/48 92 05/03/20 10:45 101/47 100 05/03/20 10:30 101/47 100 05/03/20 10:15 99/41 100 05/03/20 10:00 92/50 100 05/03/20 09:45 87/47 99 05/03/20 09:30 99/51 99 05/03/20 09:15 87/47 98 05/03/20 09:09 87/47 05/03/20 08:45 87/47 05/03/20 08:31 97/44 05/03/20 08:15 83/50 05/03/20 08:07 99 12/09/20 08:04 05/03/20 08:00 95/50 96 05/03/20 07:45 94/49 99 05/03/20 07:30 94/49 98 05/03/20 07:15 93/59 - Labs and Meds Comprehensive Metabolic Panel 05/04/20 Range/Units 04:00 Sodium 154 H (137-145) mmol/L Potassium 3.3 L (3.6-5.0) mmol/L Chloride 122.4 H (98-107) mmol/L Carbon Dioxide 21 L (22-30) mmol/L BUN 51 H (9-20) mg/dL Creatinine 2.4 H (0.8-1.3) mg/dL Glucose 165 H (75-100) mg/dL Calcium 8.4 (8.4-10.2) mg/dL
[2020-05-03] MEDS ORDERED: POTASSIUM CHLORIDE 20 MEQ PACKET FEEDTUBE SCH (10:00)
--- NOTE | 2020-05-03 11:49 | Progress Note ---
Assessment and Plan 1. Acute kidney injury: Vasomotor KIRT superimposed on CKD. CT abdomen negative for hydro. Monitor renal function. Creatinine level is high. Avoid nephrotoxic agents. Meds dosage based on GFR. 2. FEN: Hypernatremia, will stop IV fluids due to resp distress, monitor. One dose of Diuril today. Hypokalemia, replete K, monitor. Anion-gap metabolic acidosis, monitor. Monitor lytes and volume status. 3. Acute hypoxic respiratory failure: Possibly secondary to the CHF and underlying pneumonia. COVID-19 test negative. 4. Hypotension: On Levophed and Dobutamine. Monitor BP. 5. Bradycardia: Followed by Cards. 6. Chronic CHF: Monitor daily weight, intake and outputs. Followed by Cards. 7. Anemia, POA: Monitor. 8. Elevated Transaminases: Improved. 9. DM type 2. Overall prognosis is guarded to slim. Subjective: Patient was seen and examined at the bedside. C/o sob. Examination: General appearance: well-developed, appears stated age, some resp distress HEENT: ATNC, pupils equal Neck: trachea midline Respiratory: diminish breath sounds, some gurgling sounds Heart: regular, S1S2, no murmur Gastrointestinal: soft, normoactive bowel sounds, not tender Integumentary: no rash, warm and dry Neurologic: alert, moving extremities, confused Ext: no edema Subjective Date of service: 05/03/20 Principal diagnosis: CHF Objective - Vital Signs Vital signs: Vital Signs - 12hr 05/03/20 05/03/20 05/03/20 00:00 00:15 00:31 Temperature 97 F L Pulse Rate 59 L 60 70 Pulse Rate [ Left Throughout ] Pulse Rate [ Right Throughout] Respiratory 33 H 29 H 25 H Rate Respiratory Rate [Left Throughout] Respiratory Rate [Right Throughout] Blood Pressure 95/48 95/48 91/44 O2 Sat by Pulse 98 98 98 Oximetry 05/03/20 05/03/20 05/03/20 00:45 01:00 01:15 Temperature Pulse Rate 57 L 72 69 Pulse Rate [ Left Throughout ] Pulse Rate [ Right Throughout] Respiratory 19 29 H 30 H Rate Respiratory Rate [Left Throughout] Respiratory Rate [Right Throughout] Blood Pressure 91/44 92/44 92/44 O2 Sat by Pulse 98 98 97 Oximetry 05/03/20 05/03/20 05/03/20 01:31 01:45 02:00 Temperature Pulse Rate 63 59 L 54 L Pulse Rate [ Left Throughout ] Pulse Rate [ Right Throughout] Respiratory 21 21 31 H Rate Respiratory Rate [Left Throughout] Respiratory Rate [Right Throughout] Blood Pressure 102/47 100/46 102/48 O2 Sat by Pulse 97 94 96 Oximetry 05/03/20 05/03/20 05/03/20 02:15 02:30 02:45 Temperature Pulse Rate 58 L 59 L 70 Pulse Rate [ Left Throughout ] Pulse Rate [ Right Throughout] Respiratory 24 23 32 H Rate Respiratory Rate [Left Throughout] Respiratory Rate [Right Throughout] Blood Pressure 105/43 97/45 95/47 O2 Sat by Pulse 99 98 97 Oximetry 05/03/20 05/03/20 05/03/20 03:00 03:15 03:31 Temperature Pulse Rate 65 63 68 Pulse Rate [ Left Throughout ] Pulse Rate [ Right Throughout] Respiratory 20 23 29 H Rate Respiratory Rate [Left Throughout] Respiratory Rate [Right Throughout] Blood Pressure 98/73 98/73 84/48 O2 Sat by Pulse 98 99 99 Oximetry 05/03/20 05/03/20 05/03/20 03:45 04:00 04:15 Temperature Pulse Rate 70 54 L 54 L Pulse Rate [ Left Throughout ] Pulse Rate [ Right Throughout] Respiratory 27 H 24 28 H Rate Respiratory Rate [Left Throughout] Respiratory Rate [Right Throughout] Blood Pressure 84/48 97/47 97/47 O2 Sat by Pulse 99 97 98 Oximetry 05/03/20 05/03/20 05/03/20 04:30 04:45 05:00 Temperature Pulse Rate 69 112 H 97 H Pulse Rate [ Left Throughout ] Pulse Rate [ Right Throughout] Respiratory 30 H 23 25 H Rate Respiratory Rate [Left Throughout] Respiratory Rate [Right Throughout] Blood Pressure 91/42 91/42 88/51 O2 Sat by Pulse 97 100 98 Oximetry 05/03/20 05/03/20 05/03/20 05:15 05:31 05:45 Temperature Pulse Rate 94 H 96 H 103 H Pulse Rate [ Left Throughout ] Pulse Rate [ Right Throughout] Respiratory 22 30 H 26 H Rate Respiratory Rate [Left Throughout] Respiratory Rate [Right Throughout] Blood Pressure 88/51 84/57 84/57 O2 Sat by Pulse 99 97 96 Oximetry 05/03/20 05/03/20 05/03/20 06:00 06:15 06:31 Temperature Pulse Rate 101 H 104 H 97 H Pulse Rate [ Left Throughout ] Pulse Rate [ Right Throughout] Respiratory 21 21 24 Rate Respiratory Rate [Left Throughout] Respiratory Rate [Right Throughout] Blood Pressure 98/56 78/45 88/46 O2 Sat by Pulse 99 99 Oximetry 05/03/20 05/03/20 05/03/20 06:45 07:01 07:15 Temperature Pulse Rate 72 91 H Pulse Rate [ Left Throughout ] Pulse Rate [ Right Throughout] Respiratory Rate Respiratory Rate [Left Throughout] Respiratory Rate [Right Throughout] Blood Pressure 95/46 93/53 93/59 O2 Sat by Pulse Oximetry 05/03/20 05/03/20 05/03/20 07:30 07:45 08:00 Temperature Pulse Rate 102 H 105 H 101 H Pulse Rate [ Left Throughout ] Pulse Rate [ Right Throughout] Respiratory 25 H 22 20 Rate Respiratory Rate [Left Throughout] Respiratory Rate [Right Throughout] Blood Pressure 94/49 94/49 95/50 O2 Sat by Pulse 98 99 96 Oximetry 05/03/20 05/03/20 05/03/20 08:04 08:07 08:15 Temperature Pulse Rate Pulse Rate [ 96 H Left Throughout ] Pulse Rate [ 97 H Right Throughout] Respiratory Rate Respiratory 28 H Rate [Left Throughout] Respiratory 24 Rate [Right Throughout] Blood Pressure 83/50 O2 Sat by Pulse 99 Oximetry 05/03/20 05/03/20 05/03/20 08:31 08:45 09:09 Temperature Pulse Rate 67 Pulse Rate [ Left Throughout ] Pulse Rate [ Right Throughout] Respiratory 25 H Rate Respiratory Rate [Left Throughout] Respiratory Rate [Right Throughout] Blood Pressure 97/44 87/47 87/47 O2 Sat by Pulse Oximetry 05/03/20 05/03/20 05/03/20 09:15 09:30 09:45 Temperature Pulse Rate 79 84 68 Pulse Rate [ Left Throughout ] Pulse Rate [ Right Throughout] Respiratory 17 28 H 22 Rate Respiratory Rate [Left Throughout] Respiratory Rate [Right Throughout] Blood Pressure 87/47 99/51 87/47 O2 Sat by Pulse 98 99 99 Oximetry 05/03/20 05/03/20 05/03/20 10:00 10:15 10:30 Temperature Pulse Rate 67 66 56 L Pulse Rate [ Left Throughout ] Pulse Rate [ Right Throughout] Respiratory 17 25 H 33 H Rate Respiratory Rate [Left Throughout] Respiratory Rate [Right Throughout] Blood Pressure 92/50 99/41 101/47 O2 Sat by Pulse 100 100 100 Oximetry 05/03/20 05/03/20 05/03/20 10:45 11:00 11:15 Temperature Pulse Rate 74 55 L 75 Pulse Rate [ Left Throughout ] Pulse Rate [ Right Throughout] Respiratory 28 H 24 15 Rate Respiratory Rate [Left Throughout] Respiratory Rate [Right Throughout] Blood Pressure 101/47 109/48 101/57 O2 Sat by Pulse 100 92 96 Oximetry 05/03/20 11:30 Temperature Pulse Rate 77 Pulse Rate [ Left Throughout ] Pulse Rate [ Right Throughout] Respiratory Rate Respiratory Rate [Left Throughout] Respiratory Rate [Right Throughout] Blood Pressure 96/58 O2 Sat by Pulse Oximetry - Lab 05/03/20 04:31 05/03/20 04:31 Most recent lab results ABG pH 7.387 pH Units (7.350-7.450) 04/29/20 11:50 ABG pCO2 31.8 mm Hg 04/29/20 11:50 ABG pO2 102.9 mm Hg (80.0-90.0) H 04/29/20 11:50 ABG HCO3 18.7 mmol/L (20.0-26.0) L 04/29/20 11:50 ABG O2 Saturation 97.8 % (95.0-99.0) 04/29/20 11:50 Calcium 8.3 mg/dL (8.4-10.2) L 05/03/20 04:31 Phosphorus 5.60 mg/dL (2.5-4.5) H 04/10/20 22:50 Magnesium 2.40 mg/dL (1.7-2.3) H 04/10/20 22:50 Urine Creatinine 35.3 mg/dL (0.1-20.0) H 04/11/20 Unknown Urine Sodium 92 mmol/L 04/11/20 Unknown Medications & Allergies - Medications Allergies/Adverse Reactions: Allergies Sulfa (Sulfonamide Antibiotics) Allergy (Verified 07/30/18 17:44) Rash Home Medications: Home Medications Medication Instructions Recorded Confirmed Last Taken Type Gabapentin 300 mg PO BID 09/19/16 04/21/20 09/18/16 History 300 mg Metformin HCl [metFORMIN ER 500 mg PO BIDWM 03/28/17 04/21/20 Unknown History Gastric] AtorvaSTATin 10 mg PO QHS #30 tablet 12/21/17 04/21/20 Unknown Rx Ranolazine ER [Ranexa ER] 500 mg PO BID #60 tablet 12/21/17 04/21/20 Unknown Rx Aspirin 325 mg PO QDAY #30 tablet 01/12/18 04/21/20 04/21/20 Rx Diphenoxylate/Atropine [Lomotil] 1 tab PO Q8H PRN 01/15/18 04/21/20 Unknown History Insulin Lispro [HumaLOG VIAL] See Protocol SQ ACHS 01/15/18 04/21/20 04/21/20 18:46 History Promethazine [Phenergan] 25 mg PO Q4H PRN 01/15/18 04/21/20 Unknown History Albuterol Mdi (or & Nicu Only) 2 puff IH Q4HR PRN #1 inhalation 12/21/18 04/21/20 04/21/20 18:46 Rx [ProAir HFA Inhaler] Furosemide [Lasix TAB] 20 mg PO QDAY #30 tablet 02/03/20 04/21/20 Unknown Rx Metoprolol Xl [Metoprolol 25 mg PO DAILY #60 tablet 02/03/20 04/21/20 04/21/20 18:45 Rx SUCCINATE ER TAB] levETIRAcetam [Keppra TAB] 500 mg PO BID #120 tablet 02/03/20 04/21/20 Unknown Rx levoFLOXacin [Levaquin TAB] 500 mg PO QDAY #5 tablet 02/03/20 04/21/20 Unknown Rx Active Medications: Generic Name Dose Route Start Last Admin Trade Name Kyree PRN Reason Stop Dose Admin Acetaminophen 650 mg 04/11/20 01:26 04/23/20 23:13 Tylenol PO 650 mg Q6H PRN Administration Pain MILD(1-3)/Fever >100.5/MANCILLA Lipase/Protease/Amylase 1 each 04/11/20 14:22 Gabrielle Saenz 10,500 Unit FEEDTUBE PRN PRN For Clogged Feeding Tube Arformoterol Tartrate 15 mcg 04/20/20 20:00 05/03/20 07:41 Brovana Nebu IH 15 mcg Q12HRT PRAVIN Administration Budesonide 0.5 mg 04/20/20 20:00 05/03/20 07:41 Pulmicort IH 0.5 mg Q12HRT PRAVIN Administration Norepinephrine 4 mg in 250 mls @ 7.5 mls/hr 04/25/20 17:00 05/02/20 11:41 Levophed Drip 4 Mg/Ns 250 Ml IV 0 mcg/min TITR PRAVIN 0 mls/hr Titration Protocol 2 MCG/MIN Dextrose 1,000 mls @ 60 mls/hr 04/30/20 17:00 05/02/20 00:41 D5w IV 42 mls/hr DIRECT PRAVIN Administration Dobutamine HCl/Dextrose 500 mg in 250 mls @ 9.45 mls/hr 05/02/20 12:00 05/02/20 14:47 Dobutrex Drip 500mg/D5w 250ml IV 5 mcg/kg/min DIRECT PRAVIN 9.45 mls/hr Administration Protocol 5 MCG/KG/MIN Insulin Human Lispro 0 unit 04/16/20 16:30 05/03/20 09:28 Humalog SUB-Q Not Given ACHS PRAVIN Protocol Magnesium Hydroxide 30 ml 04/11/20 01:26 Milk Of Magnesia PO Q4H PRN Constipation Midodrine 10 mg 05/01/20 16:00 05/03/20 11:38 Proamatine PO 10 mg TID@0800,1200,1600 PRAVIN Administration Ondansetron HCl 4 mg 04/25/20 04:53 04/25/20 05:25 Zofran IV 4 mg Q8H PRN Administration Nausea And Vomiting Potassium Chloride 40 meq 05/03/20 10:00 05/03/20 11:38 Potassium Chloride FEEDTUBE 05/03/20 12:00 40 meq ONCE PRAVIN Administration Simple Syrup 15 ml 04/11/20 14:22 Simple Syrup FEEDTUBE PRN PRN Hypoglycemia Simple Syrup 30 ml 04/11/20 14:22 Simple Syrup FEEDTUBE PRN PRN Hypoglycemia Sodium Bicarbonate 325 mg 04/11/20 14:22 Sodium Bicarbonate FEEDTUBE PRN PRN For Clogged Feeding Tube Sodium Chloride 10 ml 04/11/20 10:00 05/03/20 09:22 Sodium Chloride Flush Syringe 10 Ml IV 10 ml BID PRAVIN Administration Sodium Chloride 10 ml 04/11/20 01:26 Sodium Chloride Flush Syringe 10 Ml IV PRN PRN LINE FLUSH
[2020-05-03] MEDS ORDERED: CHLOROTHIAZIDE 500 MG VIAL IV SCH (13:00)
[2020-05-03 15:54] LABS: Heparin-Induced Platelet Antib Positive (Negative); Unfractionated Heparin Negative (Negative)
[2020-05-03] MEDS: DOBUTamine/D5W 500 MG/250 ML 500 MG/250 ML BAG IV SCH (17:11)
[2020-05-04 06:20] LABS: Calcium 8.4 mg/dL (8.4-10.2)
[2020-05-04] MEDS: ARFORMOTEROL 15 MCG/2 ML NEBU IH SCH ×2 (08:13→20:21)
[2020-05-04] MEDS: BUDESONIDE 0.5 MG/2 ML NEBU IH SCH ×2 (08:13→20:21)
[2020-05-04] MEDS ORDERED: POTASSIUM CHLORIDE ER 20 MEQ TAB PO SCH (08:30)
--- NOTE | 2020-05-04 08:31 | Progress Note ---
Assessment and Plan Assessment and plan: ---Acute respiratory failure Current Visit: Yes Status: Acute Plan to address problem: Continue oxygen supplementation --Acute on chronic systolic CHF (congestive heart failure) Current Visit: Yes Status: Acute Plan to address problem: Holding Lasix due to KIRT Will monitor daily weight, inputs and outputs. Monitor renal function closely Cardiology on board --KIRT on CKD Current Visit: Yes Status: Acute Plan to address problem: Had KIRT 2/2 vasomotor nephropathy Lasix given due to worsening pulm edema but Cr bumped. Hold lasix --Colitis Current Visit: Yes Status: Acute Plan to address problem: Resolved GI recommendations appreciated --Left sided pleural effusion Current Visit: No Status: Acute Plan to address problem: Lasix held due to worsening renal function Will get US thoracentesis when IR <1.5. Pulmonology consulted. --Arrhythmias Current Visit: Yes Status: Acute Plan to address problem: Initially started on amiodarone but discontinued due to elevated LFTs Noted to have pauses on telemetry. Metoprolol discontinued-awaiting cardiology recommendations at this time. Pacer placed at bedside Transfer patient to [facility] for now Holding apixaban due to thrombocytopenia Cardiology recommendations appreciated --Diabetes mellitus type 2 in nonobese Current Visit: No Status: Acute Plan to address problem: Lantus and sliding scale insulin. --Hyperkalemia and metabolic acidosis Current Visit: Yes Status: Acute Plan to address problem: Resolved --T12 compression fracture Current Visit: No Status: Likely chronic Plan to address problem: CT abdomen showed acute appearing T12 compression fracture 04/14. MRI thoracic without contrast ordered to further evaluate. 04/15. Patient is agitated and unable to get an MRI. 04/16. Awaiting MRI without contrast thoracic. Plan to use sedatives today. Informed RN. If positive for acute fracture, patient will need to be transferred for neurosurgery evaluation. 04/17. MRI thoracic and lumbar showed acute T12 compression fracture. Discussed case with [place] neurosurgery quality control projectionist who advised no acute intervention is necessary at this time-advised TLSO brace when patient is sitting or ambulatory. He will need follow-up with Dr. Dalton Jack, Dr. Alan Henson, Dr. Tyson Clark [contact number [phone]] after discharge. ---Elevated LFTs Current Visit: Yes Status: Acute Plan to address problem: Improving US abdomen shows no acute pathology ---Infrarenal aortic aneurysm Current Visit: No Status: Acute Plan to address problem: 3.8 cm in diameter Needs to follow-up with vascular surgery at discharge for monitoring -Shock Current Visit: No Status: Acute Plan to address problem: Improved VQ scan to rule out PE - negative -- Hypernatremia Current Visit: No Status: Acute Plan to address problem: Due to poor intake. NG tube placement ordered. Patient continues to refuse NG tube placement. Needs PEG placement. GI consulted Start water via NG tube 400cc q8 hours Trend sodium -- DVT prophylaxis Current Visit: No Status: Acute Plan to address problem: Hold heparin for now --Full code status Current Visit: No Status: Acute Disposition-home with hospice as per patient son when stable 04/11. Patient seen and examined at bedside this morning. Patient is on BiPAP. Patient is eager to go home. Otherwise denies any chest pain or palpitations. Patient CT showed possible compression fracture of T12, it is unknown if this is new. We will get MRI without contrast of the thoracic and lumbar to further evaluate. If patient actually has an acute compression fracture, he will need to have a neurosurgery evaluation so will need to be transferred to another facility for this. Otherwise, patient continue to monitor patient's respiratory status while in the IMCU. Patient reportedly failed a swallow evaluation and will need to have an NG tube placement. Tried to call son on number provided in the chart and left a message. Awaiting callback. Labs reviewed-patient has elevated inflammatory [id number], LDH. COVID-19 test has been ordered. Started patient on steroids. Ordered stat BMP, ABG, D-dimer, proBNP, ferritin, LDH. 04/12. COVID -19 test is negative. His breathing has improved so was placed on nasal cannula. Cardiology adjusted meds today. He failed swallow evaluation yesterday. He requests for food. Will reattempt swallow evaluation. Speech therapy consult. 04/13. Overnight, he developed VT and was started on amiodarone. HR better this AM. Cardiology will review medications. Patient seen and examined at bedside this AM. He requests for food. He failed a repeat speech evaluation and will need barium swallow. May need PEG placement if he fails. NG tube in place. Vitals reviewed 04/14. Heart rate improved. Remains n.p.o. with NG tube feeds. Video swallow evaluation shows mild abnormal study. Speech therapist to see patient. Patient has not been able to have an MRI of the back due to agitation. He had a CT during the admission that showed possible compression fracture of T12 but this has not been fully evaluated due to patient's ongoing conditions. Labs reviewed-renal function is worse. Discontinue Lasix. 04/15. Has been started on a diet and is tolerating. He pulled out his NG tube last night. Okay to leave NG tube for now. Plan to get an MRI performed today with sedative to evaluate T12 fracture. Patient denies any back pain. Renal function slightly improved today after Lasix was discontinued. Continue IV hydration. Nephrology recommendations appreciated 04/16. He feels better today. MRI could not be done yesterday. Hopefully patient can have an MRI done today. Creatinine 3.1 today. Patient will need placement but will need to have evaluation of possible T12 fracture prior to discharge 04/17. MRI thoracic and lumbar showed acute T12 compression fracture. Discussed case with [place] neuro[facility] quality control projectionist who advised no acute intervention is necessary at this time-advised TLSO brace when patient is sitting or am bulatory. He will need follow-up with Dr. Dalton Jack, Dr. Alan Henson, Dr. Tyson Clark [contact number [phone]] after discharge. 04/18. Await Nephrology recs for d/c plans 04/19/2020. Patient reportedly with choking/coughing with swallowing. We will change to n.p.o. status right now. Speech reevaluation. Check chest x-ray to rule out aspiration pneumonia. Await nephrology recommendations for discharge. Creatinine slowly improving. CT of abdomen negative for hydronephrosis. BUN increasing. Therefore, we will check Hemoccult of stool to rule out GI bleed. Hemoglobin has been stable. 04/20/2020. Repeat chest x-ray reveals worsening bibasilar opacities. Pulmonary consulted. Doppler of left upper extremity for swelling. PT evaluation recommends subacute rehab 04/21/2020. Await pulmonary consultation for worsening bibasilar opacities. Doppler of left upper extremity pending. PT evaluation recommends subacute rehab. Creatinine has improved to near baseline of 1.8. Nephrology following 04/22/2020. Pulmonary sees no need for antibiotics or further evaluation of bibasilar opacities with CT scan. Continue current COPD treatment. Beta blockers increase for A. fib per cardiology. Await Doppler left upper extremity. PT evaluation recommends subacute rehab but case management reports patient's son Haseeb [phone]. Haseeb wants patient to return home with [facility]. 04/23/2020. Continue beta-blockers for atrial fibrillation per cardiology. Await left upper extremity Doppler ultrasound for left upper extremity swelling. PT evaluation recommends subacute rehab but case management reports patient's son Haseeb [phone]. Haseeb wants patient to return home with [facility]. Creatinine appears to be improved to baseline. Anticipate discharge in the next 1 to 2 days. 04/24/2020. Continue beta-blockers for atrial fibrillation per cardiology. Await left upper extremity Doppler ultrasound for left upper extremity swelling. Haseeb (son [phone]) wants patient to return home with [facility]. Creatinine appears to be improved to baseline. Patient now with hypernatremia. ?Tenuous IV fluid hydration--defer to nephrology. 04/25. Blood pressure low this morning but subsequently improved with slow bolus . Sodium today is 150. Patient is dehydrated and is asking for water to drink. I have discussed with RN to ensure patient gets enough water to help with dehydration. His heart rate is controlled and cardiology has adjusted the medication today due to slight hypotension.-Metoprolol now 25 every 8 hours. He is alert and oriented x3 this morning and is able to make needs known. Check BMP every 8 hours for now. Nephrology following 04/26. Transferred to the ICU due to persisted hypotension. WBC trending up. Started on antibiotics. Aetiology of shock could be sepsis. Other differentials - cardiogenic vs obstructive (has been on eliquis 2.5mg BID so not likely. His ddimer is elevated and he cannot get contrast - will get VQ scan. Critical care to see. Blood culture ordered. Repeat labs in AM 04/27. On levophed. Leukocytosis better. Check procalcitonin. On antibiotics. Rest of labs shows anemia and thrombocytopenia. Will dc eliquis. Lasix given but Cr bump noted. Holding lasix for now. Repeat chest xray to evaluate infiltrate and effusion 04/28. BP stable so he was transferred to telemetry. He failed swallow evaluation. Place an NG tube and start free water via NG tube. DC D5w. He will need GI evaluation for PEG tube placement. Lasix was given for worsening infiltrate and effusion but Cr bumped. Awaiting repeat chest xray to evaluate for infiltrate. Ordered INR and BNP. May need US thoracentesis for left pleural effusion. Will get pulm consult. Labs reviewed- still has hypernatremia - nephrology following. heme consult for thrombocytopenia. GI consulted for PEG tube placement 04/29. NG tube not yet placed. Sodium 155. Needs to be started on water via NG tube. No IVF as he has systolic CHF. Consultants notes reviewed. 04/30. Patient continues to refuse NG tube. Patient noted to have bradycardia this a.m. down to 30s-40s. Also has pauses up to 2 seconds this AM. Metoprolol has been discontinued. Patient needed 1 dose of atropine with slight improvement. Pacer placed at bedside. Patient was transferred to the [facility] for close monitoring. Cardiology has been paged and awaiting callback. Discussed with RN. Plan for PEG tube placement as per GI. Maintain n.p.o. for now 05/01. Now in the ICU on pressors due to hypotension. GI was consulted as patient has failed multiple swallow evaluations during this admission and GI plans to place a PEG tube when cardiac status is stable. Cardiology to evaluate today. Heart rate remains in the 40s to 50s. 05/02/2020; patient is on low-dose of Levophed. Cardiology is following for bradycardia, hypotension and abnormal rhythm, he has ejection fraction of 15%. GI is considering to do PEG tube placement once stable cardiac renee. Patient is on hospice care at home but whenever he becomes sick family revoked hospice and bring to the hospital. Once stabilized will take him and keep him on hospice. Management plan discussed with cardiology PA, field sales associate and case management. 05/03/2020; patient is off Levophed. Cardiology is following for bradycardia, hypotension and abnormal rhythm, he has ejection fraction of 15%. GI is considering to do PEG tube placement once stable cardiac renee. Patient is on hospice care at home but whenever he becomes sick family revoked hospice and bring to the hospital. Once stabilized will take him and keep him on hospice. Transfer to telemetry floor. 05/04/2020; bradycardia and hypotension resolved. Cardiology is following for CHF. Patient is on hospice care at home but whenever he becomes sick family revoked hospice and bring to the hospital. Once stabilized will take him and keep him on hospice. History Interval history: Patient was seen and evaluated this morning He has shortness of breath and on 3 L of oxygen Hypotension and bradycardia resolved Hospitalist Physical - Physical exam Narrative exam: Patient is on 3 L of oxygen The patient appeared well nourished and normally developed. Vital signs as documented. Head exam is unremarkable. No scleral icterus . Neck is without jugular venous distension, thyromegaly, or carotid bruits. Lungs decreased air entry. Cardiac exam reveals regular rate and Rhythm. Abdominal exam reveals normal bowel sounds, nontender, no organomegaly. Extremities are nonedematous and both femoral and pedal pulses are normal. REAL ESTATE OPERATIONS MANAGER: Alert and oriented 3. No focal weakness. - Constitutional Vitals: Temp Pulse Resp BP Pulse Ox 97.6 F 65 17 108/52 98 05/04/20 03:47 05/04/20 04:00 05/04/20 03:47 05/04/20 03:47 05/04/20 03:47 General appearance: Present: no acute distress HEART Score - HEART Score Troponin: Troponin T 0.081 ng/mL (0.00-0.029) H 04/10/20 20:04 Results - Labs CBC & Chem 7: 05/04/20 10:36 05/04/20 04:00 Labs: Laboratory Last Values WBC 4.0 K/mm3 (4.5-11.0) L 05/03/20 04:31 RBC 3.00 M/mm3 (3.65-5.03) L 05/03/20 04:31 Hgb 7.5 gm/dl (11.8-15.2) L 05/03/20 04:31 Hct 23.7 % (35.5-45.6) L 05/03/20 04:31 MCV 79 fl (84-94) L 05/03/20 04:31 MCH 25 pg (28-32) L 05/03/20 04:31 MCHC 32 % (32-34) 05/03/20 04:31 RDW 22.4 % (13.2-15.2) H 05/03/20 04:31 Plt Count 30 K/mm3 (140-440) L 05/03/20 04:31 Lymph % (Auto) 14.4 % (13.4-35.0) 05/03/20 04:31 [place] % (Auto) 7.2 % (0.0-7.3) 05/03/20 04:31 Eos % (Auto) 1.0 % (0.0-4.3) 05/03/20 04:31 Baso % (Auto) 0.9 % (0.0-1.8) 05/03/20 04:31 Lymph # (Auto) 0.6 K/mm3 (1.2-5.4) L 05/03/20 04:31 [place] # (Auto) 0.3 K/mm3 (0.0-0.8) 05/03/20 04:31 Eos # (Auto) 0.0 K/mm3 (0.0-0.4) 05/03/20 04:31 Baso # (Auto) 0.0 K/mm3 (0.0-0.1) 05/03/20 04:31 Add Manual Diff Complete 04/26/20 10:13 Total Counted 100 04/26/20 10:13 Seg Neutrophils % 76.5 % (40.0-70.0) H 05/03/20 04:31 Seg Neuts % (Manual) 97.0 % (40.0-70.0) H 04/26/20 10:13 Band Neutrophils % 0 % 04/26/20 10:13 Lymphocytes % (Manual) 1.0 % (13.4-35.0) L 04/26/20 10:13 Reactive Lymphs % (Man) 0 % 04/26/20 10:13 Monocytes % (Manual) 1.0 % (0.0-7.3) 04/26/20 10:13 Eosinophils % (Manual) 0 % (0.0-4.3) 04/26/20 10:13 Basophils % (Manual) 1.0 % (0.0-1.8) 04/26/20 10:13 Metamyelocytes % 0 % 04/26/20 10:13 Myelocytes % 0 % 04/26/20 10:13 Promyelocytes % 0 % 04/26/20 10:13 Blast Cells % 0 % 04/26/20 10:13 Nucleated RBC % Not Reportable 04/26/20 10:13 Seg Neutrophils # 3.1 K/mm3 (1.8-7.7) 05/03/20 04:31 Seg Neutrophils # Man 14.7 K/mm3 (1.8-7.7) H 04/26/20 10:13 Band Neutrophils # 0.0 K/mm3 04/26/20 10:13 Lymphocytes # (Manual) 0.2 K/mm3 (1.2-5.4) L 04/26/20 10:13 Abs React Lymphs (Man) 0.0 K/mm3 04/26/20 10:13 Monocytes # (Manual) 0.2 K/mm3 (0.0-0.8) 04/26/20 10:13 Eosinophils # (Manual) 0.0 K/mm3 (0.0-0.4) 04/26/20 10:13 Basophils # (Manual) 0.2 K/mm3 (0.0-0.1) H 04/26/20 10:13 Metamyelocytes # 0.0 K/mm3 04/26/20 10:13 Myelocytes # 0.0 K/mm3 04/26/20 10:13 Promyelocytes # 0.0 K/mm3 04/26/20 10:13 Blast Cells # 0.0 K/mm3 04/26/20 10:13 WBC Morphology Not Reportable 04/26/20 10:13 Hypersegmented Neuts Not Reportable 04/26/20 10:13 Hyposegmented Neuts Not Reportable 04/26/20 10:13 Hypogranular Neuts Not Reportable 04/26/20 10:13 Smudge Cells Not Reportable 04/26/20 10:13 Toxic Granulation Not Reportable 04/26/20 10:13 Toxic Vacuolation Not Reportable 04/26/20 10:13 Dohle Bodies Not Reportable 04/26/20 10:13 Pelger-Huet Anomaly Not Reportable 04/26/20 10:13 Barby Rods Not Reportable 04/26/20 10:13 Platelet Estimate Consistent w auto 04/26/20 10:13 Clumped Platelets Not Reportable 04/26/20 10:13 Plt Clumps, EDTA Not Reportable 04/26/20 10:13 Large Platelets Not Reportable 04/26/20 10:13 Giant Platelets Not Reportable 04/26/20 10:13 Platelet Satelliting Not Reportable 04/26/20 10:13 Plt Morphology Comment Not Reportable 04/26/20 10:13 RBC Morphology Not Reportable 04/26/20 10:13 Dimorphic RBCs Not Reportable 04/26/20 10:13 Polychromasia Not Reportable 04/26/20 10:13 Hypochromasia 1+ 04/26/20 10:13 Poikilocytosis Not Reportable 04/26/20 10:13 Anisocytosis 1+ 04/26/20 10:13 Microcytosis Not Reportable 04/26/20 10:13 Macrocytosis Not Reportable 04/26/20 10:13 Spherocytes Not Reportable 04/26/20 10:13 Pappenheimer Bodies Not Reportable 04/26/20 10:13 Sickle Cells Not Reportable 04/26/20 10:13 Target Cells Not Reportable 04/26/20 10:13 Tear Drop Cells Not Reportable 04/26/20 10:13 Ovalocytes Not Reportable 04/26/20 10:13 Helmet Cells Not Reportable 04/26/20 10:13 [place] Bodies Not Reportable 04/26/20 10:13 [place] Rings Not Reportable 04/26/20 10:13 Marcia Cells Few 04/26/20 10:13 Bite Cells Not Reportable 04/26/20 10:13 Crenated Cell Not Reportable 04/26/20 10:13 Elliptocytes 1+ 04/26/20 10:13 Acanthocytes (Spur) Not Reportable 04/26/20 10:13 Rouleaux Not Reportable 04/26/20 10:13 Hemoglobin C Crystals Not Reportable 04/26/20 10:13 Schistocytes Few 04/26/20 10:13 Malaria parasites Not Reportable 04/26/20 10:13 Willie Bodies Not Reportable 04/26/20 10:13 Hem Pathologist Commnt No 04/26/20 10:13 PT 17.4 Sec. (12.2-14.9) H 05/01/20 07:10 INR 1.43 (0.87-1.13) H 05/01/20 07:10 D-Dimer 1259.67 ng/mlDDU (0-234) H 04/25/20 16:09 Heparin Anti-Xa Level 0.35 U.I./ml (0.3-0.7) 04/13/20 05:06 Heparin Anti-Xa, Unfract Negative (Negative) 04/30/20 08:59 ABG pH 7.387 pH Units (7.350-7.450) 04/29/20 11:50 ABG pCO2 31.8 mm Hg 04/29/20 11:50 ABG pO2 102.9 mm Hg (80.0-90.0) H 04/29/20 11:50 ABG HCO3 18.7 mmol/L (20.0-26.0) L 04/29/20 11:50 ABG O2 Saturation 97.8 % (95.0-99.0) 04/29/20 11:50 ABG O2 Content 10.2 (0.0-44) 04/29/20 11:50 ABG Base Excess -5.7 mmol/L (-2.0-3.0) L 04/29/20 11:50 ABG Hemoglobin 7.5 gm/dl (14.0-18.0) L 04/29/20 11:50 ABG Carboxyhemoglobin 2.2 % (0.0-5.0) 04/29/20 11:50 ABG Methemoglobin 0.4 % (0.0-1.5) 04/29/20 11:50 Oxyhemoglobin 95.3 % (95.0-99.0) 04/29/20 11:50 FiO2 32 % 04/29/20 11:50 Sodium 154 mmol/L (137-145) H 05/04/20 04:00 Potassium 3.3 mmol/L (3.6-5.0) L 05/04/20 04:00 Chloride 122.4 mmol/L (98-107) H 05/04/20 04:00 Carbon Dioxide 21 mmol/L (22-30) L 05/04/20 04:00 Anion Gap 14 mmol/L 05/04/20 04:00 BUN 51 mg/dL (9-20) H 05/04/20 04:00 Creatinine 2.4 mg/dL (0.8-1.3) H 05/04/20 04:00 Estimated GFR 27 ml/min 05/04/20 04:00 BUN/Creatinine Ratio 21 % 05/04/20 04:00 Glucose 165 mg/dL (75-100) H 05/04/20 04:00 POC Glucose 142 mg/dL (70-105) H 05/04/20 07:47 Lactic Acid 3.00 mmol/L (0.7-2.0) H* 04/12/20 06:22 Calcium 8.4 mg/dL (8.4-10.2) 05/04/20 04:00 Phosphorus 5.60 mg/dL (2.5-4.5) H 04/10/20 22:50 Magnesium 2.40 mg/dL (1.7-2.3) H 04/10/20 22:50 Ferritin 135.1 ng/mL (30.0-300.0) 04/11/20 15:11 Total Bilirubin 2.30 mg/dL (0.1-1.2) H 05/03/20 04:31 Direct Bilirubin 0.6 mg/dL (0-0.2) H 04/15/20 04:56 Indirect Bilirubin 0.3 mg/dL 04/15/20 04:56 AST 19 units/L (5-40) 05/03/20 04:31 ALT 22 units/L (7-56) 05/03/20 04:31 Alkaline Phosphatase 73 units/L (35-129) 05/03/20 04:31 Lactate Dehydrogenase 210 units/L (91-180) H 04/28/20 11:10 Troponin T 0.081 ng/mL (0.00-0.029) H 04/10/20 20:04 C-Reactive Protein 5.60 mg/dL (0.00-1.30) H 04/10/20 20:51 NT-Pro-B Natriuret Pep 41739 pg/mL (0-900) H 04/28/20 11:10 Total Protein 5.2 g/dL (6.3-8.2) L 05/03/20 04:31 Albumin 2.4 g/dL (3.9-5) L 05/03/20 04:31 Albumin/Globulin Ratio 0.9 % 05/03/20 04:31 Triglycerides 113 mg/dL (2-149) 04/10/20 20:04 Cholesterol 178 mg/dL (50-199) 04/10/20 20:04 LDL Cholesterol Direct 123 mg/dL (50-130) 04/10/20 20:04 HDL Cholesterol 41 mg/dL (40-59) 04/10/20 20:04 Cholesterol/HDL Ratio 4.34 % 04/10/20 20:04 Serotonin Release Assay See scanned result 04/17/20 22:45 Procalcitonin 0.38 ng/mL (<0.15) 04/27/20 09:30 TSH 3.640 mlU/mL (0.270-4.200) 04/13/20 10:06 Urine Color Yellow (Yellow) 04/11/20 Unknown Urine Turbidity Clear (Clear) 04/11/20 Unknown Urine pH 5.0 (5.0-7.0) 04/11/20 Unknown Ur Specific [place] 1.009 (1.003-1.030) 04/11/20 Unknown Urine Protein <15 mg/dl mg/dL (Negative) 04/11/20 Unknown Urine Glucose (UA) Neg mg/dL (Negative) 04/11/20 Unknown Urine Ketones Neg mg/dL (Negative) 04/11/20 Unknown Urine Blood Neg (Negative) 04/11/20 Unknown Urine Nitrite Neg (Negative) 04/11/20 Unknown Urine Bilirubin Neg (Negative) 04/11/20 Unknown Urine Urobilinogen < 2.0 mg/dL (<2.0) 04/11/20 Unknown Ur Leukocyte Esterase Neg (Negative) 04/11/20 Unknown Urine WBC (Auto) 1.0 /HPF (0.0-6.0) 04/11/20 Unknown Urine RBC (Auto) 2.0 /HPF (0.0-6.0) 04/11/20 Unknown U Epithel Cells (Auto) < 1.0 /HPF (0-13.0) 04/11/20 Unknown Hyaline Casts 3 /LPF 04/11/20 Unknown Urine Mucus Few /HPF 04/11/20 Unknown Urine Eosinophils None seen (None Seen) 04/11/20 Unknown Urine Osmolality 528 Mosm/kg 05/03/20 15:50 Urine Creatinine 35.3 mg/dL (0.1-20.0) H 04/11/20 Unknown Urine Sodium 92 mmol/L 04/11/20 Unknown Heparin-induced Plt Ab Positive (Negative) H 04/30/20 08:59 UF Heparin High Dose 0 % Release 04/30/20 08:59 CHERYL UFH Low Dose 0.1 0 % Release 04/30/20 08:59 CHERYL UFH Low Dose 0.5 0 % Release 04/30/20 08:59 Coronavirus (PCR) Negative (Negative) 04/29/20 10:59 Hepatitis A IgM Ab Non-reactive (NonReactive) 04/12/20 20:23 Hep Bs Antigen Non-reactive (Negative) 04/12/20 20:23 Hep B Core IgM Ab Non-reactive (NonReactive) 04/12/20 20:23 Hepatitis C Antibody Non-reactive (NonReactive) 04/12/20 20:23 Blood Type AB POSITIVE 05/02/20 07:00 Antibody Screen Negative 05/02/20 07:00 Crossmatch See Detail 05/02/20 07:00 Gay/IV: Voiding Method Condom Catheter IV Catheter Type [Right Peripheral IV External Jugular] IV Catheter Type [Left Peripheral IV External Jugular] IV Catheter Type [Right Upper PICC Line arm] IV Catheter Type [Left Wrist] Peripheral IV IV Catheter Type [Right INT / Saline Lock Forearm] IV Catheter Type [Right Wrist] INT / Saline Lock Active Medications - Current Medications Current Medications: Generic Name Dose Route Start Last Admin Trade Name Freq PRN Reason Stop Dose Admin Acetaminophen 650 mg 04/11/20 01:26 04/23/20 23:13 Tylenol PO 650 mg Q6H PRN Administration Pain MILD(1-3)/Fever >100.5/MANCILLA Lipase/Protease/Amylase 1 each 04/11/20 14:[address] 10,500 Unit FEEDTUBE PRN PRN For Clogged Feeding Tube Arformoterol Tartrate 15 mcg 04/20/20 20:00 05/03/20 22:35 Brovana Nebu IH 15 mcg Q12HRT PRAVIN Administration Budesonide 0.5 mg 04/20/20 20:00 05/03/20 22:35 Pulmicort IH 0.5 mg Q12HRT PRAVIN Administration Norepinephrine 4 mg in 250 mls @ 7.5 mls/hr 04/25/20 17:00 05/02/20 11:41 Levophed Drip 4 Mg/Ns 250 Ml IV 0 mcg/min TITR PRAVIN 0 mls/hr Titration Protocol 2 MCG/MIN Dobutamine HCl/Dextrose 500 mg in 250 mls @ 9.45 mls/hr 05/02/20 12:00 05/03/20 17:11 Dobutrex Drip 500mg/D5w 250ml IV 5 mcg/kg/min DIRECT PRAVIN 9.45 mls/hr Administration Protocol 5 MCG/KG/MIN Insulin Human Lispro 0 unit 04/16/20 16:30 05/03/20 22:55 Humalog SUB-Q Not Given ACHS [facility] Protocol Magnesium Hydroxide 30 ml 04/11/20 01:26 Milk Of Magnesia PO Q4H PRN Constipation Midodrine 10 mg 05/01/20 16:00 05/03/20 17:10 Proamatine PO 10 mg TID@0800,1200,1600 PRAVIN Administration Ondansetron HCl 4 mg 04/25/20 04:53 04/25/20 05:25 Zofran IV 4 mg Q8H PRN Administration Nausea And Vomiting Potassium Chloride 40 meq 05/04/20 08:30 Potassium Chloride Er 20 Meq Tab PO 05/04/20 11:30 ONCE PRAVIN Simple Syrup 15 ml 04/11/20 14:22 Simple Syrup FEEDTUBE PRN PRN Hypoglycemia Simple Syrup 30 ml 04/11/20 14:22 Simple Syrup FEEDTUBE PRN PRN Hypoglycemia Sodium Bicarbonate 325 mg 04/11/20 14:22 Sodium Bicarbonate FEEDTUBE PRN PRN For Clogged Feeding Tube Sodium Chloride 10 ml 04/11/20 10:00 05/03/20 22:55 Sodium Chloride Flush Syringe 10 Ml IV 10 ml BID PRAVIN Administration Sodium Chloride 10 ml 04/11/20 01:26 Sodium Chloride Flush Syringe 10 Ml IV PRN PRN LINE FLUSH Nutrition/Malnutrition Assess - Dietary Evaluation Nutrition/Malnutrition Findings: Nutrition Notes Start: 04/11/20 13:41 Freq: Status: Active Protocol: Document 05/03/20 11:50 EN (Rec: 05/03/20 12:02 EN [id number]) Co-Sign 05/03/20 11:50 LM Nutrition Notes Initial or Follow up Reassessment Current Diagnosis Acute Kidney Injury,CKD(stage I-IV),COPD,Coronary Artery Disease,Diabetes,Hypertension, Heart Failure Other Pertinent Diagnosis MS, Crohn's disease, seizure, colitis Current Diet Full Liquid Labs/Tests Na 154 K+ 3.2 BUN 57 Cr 2.4 Pertinent Medications KCl Height 5 ft 7 in Weight 63 kg Clint Body Weight (kg) 67.27 BMI 21.7 Weight Status Appropriate Subjective/Other Information F/u for TF start or POC. Per Dr. Gonzalez, pt advanced to full liquid diet and moving to telemetry. Per RN, pt consuming 0% of meals and only drinking tea. Pt would like to try Glucerna [place]. Pt denies N/V/D Percent of energy/protein needs met: 0%/0% Burn Absent Trauma Absent Difficulty In Swallowing,Chewing Current % PO Negligible Minimum of two criteria No Energy Intake (severe) < or equal to 50% Estimated Energy Requirement > or equal to 5 days #1 Nutrition Diagnosis Inadequate oral intake As Evidenced by Signs and Symptoms Pt advanced from NPO to full liquid Diagnosis Progress(for reassessment Improved documentation) Is patient on ventilator? No Is Patient Ambulatory and/or Out of Bed No REE-([facility]-confined to bed) 3737.701 Calculation Used for Recommendations [facility] Additional Notes Protein Needs: 63-78 g (1-1.2 g/kg) Fluid Needs: 1 mL/kcal Nutrition Intervention Change Diet Order: Advance diet as medically advised Nutrition Support: D/c Add Supplement/Snack (indicate name/kcal Glucerna TID /protein ) Provides kCal: 660 Provides Protein (gm) 30 Goal #1 Meet at least 75% of energy and protein needs via PO and ONS Goal #2 Diet advancement Anticipated Discharge Needs: Unable to determine at this time Follow-Up By: 05/05/20 Additional Comments F/u for diet advancement, intakes and ONS tolerance
[2020-05-04] MEDS: MIDODRINE 5 MG TAB PO SCH ×3 (10:00→17:31)
[2020-05-04] MEDS: INSULIN LISPRO 100 UNIT/ML VIAL 3 mL SUB-Q SCH ×4 (10:41→22:44)
--- NOTE | 2020-05-04 10:52 | Progress Note ---
<SENA HIGGINS - Last Filed: 05/04/20 10:53> Assessment and Plan Chronic systolic heart failure LVEF 15-20% by echo 01/2020 VQ scan reports a low probability for PE. COVID 19 test was negative Paroxysmal Atrial fibrillation vs flutter metoprolol discontinued due to sinus bradycardia low dose Eliquis discontinued due to development of severe anemia normal TSH of 3.6 Chronic anemia Severe Thrombocytopenia Hypotension on midodrine Dehydration Hx of Ischemic cardiomyopathy noncompliant with outpatient cardiac follow up. Hx of CAD Abdominal pain CT scan of the abdomen suggestive of colitis. Renal insufficiency Continue IV dobutrex as tolerated. Subjective Date of service: 05/04/20 Principal diagnosis: CHF Interval history: Patient is alert with confusion but appears stable. IV dobutrex continues. Objective Vital Signs Temp Pulse Pulse Pulse Resp Resp Resp 05/04/20 09:17 05/04/20 08:46 98.9 F 72 16 05/04/20 08:13 70 18 05/04/20 04:00 65 05/04/20 03:47 97.6 F 65 17 05/04/20 00:00 72 05/03/20 23:44 97.2 F L 72 18 05/03/20 22:43 91 H 78 20 22 05/03/20 22:37 05/03/20 20:35 96.8 F L 68 20 05/03/20 20:00 72 05/03/20 18:47 97.8 F 65 20 05/03/20 17:30 56 L 31 H 05/03/20 17:21 55 L 26 H 05/03/20 17:11 73 11 L 05/03/20 17:00 79 27 H 05/03/20 16:51 87 27 H 05/03/20 16:45 05/03/20 16:30 05/03/20 16:11 58 L 22 05/03/20 16:01 52 L 29 H 05/03/20 16:00 90 05/03/20 15:45 57 L 20 05/03/20 15:30 56 L 24 05/03/20 15:15 55 L 26 H 05/03/20 15:00 57 L 18 05/03/20 14:45 58 L 32 H 05/03/20 14:30 96 H 28 H 05/03/20 14:15 05/03/20 14:01 05/03/20 13:45 05/03/20 13:31 05/03/20 13:15 05/03/20 13:00 60 16 05/03/20 12:45 62 32 H 05/03/20 12:31 74 21 05/03/20 12:15 74 24 05/03/20 12:01 57 L 12 05/03/20 12:00 93 H 05/03/20 11:45 83 19 05/03/20 11:30 77 05/03/20 11:15 75 15 05/03/20 11:00 55 L 24 BP Pulse Ox 05/04/20 09:17 98 05/04/20 08:46 113/55 98 05/04/20 08:13 05/04/20 04:00 05/04/20 03:47 108/52 98 05/04/20 00:00 05/03/20 23:44 102/55 98 05/03/20 22:43 05/03/20 22:37 98 05/03/20 20:35 115/65 97 05/03/20 20:00 98 05/03/20 18:47 96/46 100 05/03/20 17:30 105/67 94 05/03/20 17:21 105/60 100 05/03/20 17:11 100/66 100 05/03/20 17:00 100/66 98 05/03/20 16:51 94/56 99 05/03/20 16:45 94/56 05/03/20 16:30 93/52 05/03/20 16:11 105/47 100 05/03/20 16:01 105/47 100 05/03/20 16:00 05/03/20 15:45 105/51 100 05/03/20 15:30 103/49 100 05/03/20 15:15 92/50 100 05/03/20 15:00 95/52 100 05/03/20 14:45 107/63 100 05/03/20 14:30 109/74 100 05/03/20 14:15 107/40 100 05/03/20 14:01 107/40 100 05/03/20 13:45 100/53 100 05/03/20 13:31 100/53 100 05/03/20 13:15 95/50 100 05/03/20 13:00 100/51 100 05/03/20 12:45 100/62 100 05/03/20 12:31 100/62 91 05/03/20 12:15 104/48 93 05/03/20 12:01 104/48 78 L 05/03/20 12:00 05/03/20 11:45 96/58 97 05/03/20 11:30 96/58 05/03/20 11:15 101/57 96 05/03/20 11:00 109/48 92 - Physical Examination General: No Apparent Distress, Cachectic HEENT: Positive: PERRL Neck: Positive: trachea midline Cardiac: Positive: Reg Rate and Rhythm Lungs: Positive: Decreased Breath Sounds Neuro: Positive: Weakness Extremities: Absent: edema - Labs and Meds Comprehensive Metabolic Panel 05/04/20 Range/Units 04:00 Sodium 154 H (137-145) mmol/L Potassium 3.3 L (3.6-5.0) mmol/L Chloride 122.4 H (98-107) mmol/L Carbon Dioxide 21 L (22-30) mmol/L BUN 51 H (9-20) mg/dL Creatinine 2.4 H (0.8-1.3) mg/dL Glucose 165 H (75-100) mg/dL Calcium 8.4 (8.4-10.2) mg/dL <DOTTIE REYNOSO - Last Filed: 05/05/20 12:43> Assessment and Plan - Patient Problems (1) Acute and chronic respiratory failure Current Visit: Yes Status: Acute (2) Acute exacerbation of CHF (congestive heart failure) Current Visit: Yes Status: Acute (3) Coronary artery disease Current Visit: Yes Status: Acute Subjective Interval history: I SAW THIS PT & AGREE WITH THE Dx & Tx PLAN. Objective Vital Signs Temp Pulse Pulse Pulse Pulse Resp Resp 05/05/20 12:20 97.9 F 103 H 16 05/05/20 09:08 98.2 F 66 16 05/05/20 08:50 88 24 05/05/20 05:04 98.7 F 68 05/05/20 04:00 68 05/05/20 00:00 68 05/04/20 23:35 82 05/04/20 23:28 98.0 F 18 05/04/20 22:00 80 80 05/04/20 20:25 90 20 05/04/20 20:00 68 05/04/20 19:40 98.0 F 18 05/04/20 17:16 97.9 F 55 L 16 05/04/20 16:00 74 05/04/20 15:10 BP BP Pulse Ox 05/05/20 12:20 91/59 98 05/05/20 09:08 90/55 99 05/05/20 08:50 05/05/20 05:04 107/68 05/05/20 04:00 05/05/20 00:00 05/04/20 23:35 05/04/20 23:28 110/59 05/04/20 22:00 96 05/04/20 20:25 05/04/20 20:00 05/04/20 19:40 95/55 05/04/20 17:16 102/56 95 05/04/20 16:00 05/04/20 15:10 98 - Labs and Meds Comprehensive Metabolic Panel 05/05/20 Range/Units 07:39 Sodium 152 H (137-145) mmol/L Potassium 3.6 (3.6-5.0) mmol/L Chloride 122.0 H (98-107) mmol/L Carbon Dioxide 20 L (22-30) mmol/L BUN 49 H (9-20) mg/dL Creatinine 2.4 H (0.8-1.3) mg/dL Glucose 105 H (75-100) mg/dL Calcium 8.4 (8.4-10.2) mg/dL
[2020-05-04 11:26] LABS: Hematocrit 23.5 % (35.5-45.6); Hemoglobin 7.5 gm/dl (11.8-15.2); Mean Corpuscular HGB Conc 32 % (32-34); Mean Corpuscular Volume 80 fl (84-94); Red Blood Count 2.94 M/mm3 (3.65-5.03)
[2020-05-04 11:29] LABS: Platelet Count 32 K/mm3 (140-440); Red Cell Distribution Width 23.1 % (13.2-15.2)
[2020-05-04 12:30] LABS: Total Cells Counted 100
[2020-05-04 12:31] LABS: Anisocytosis 2+; Burr Cells 1+; Hypochromasia 1+; Platelet Estimate Appears Decreased; Poikilocytosis 1+; Schistocytes Rare
--- NOTE | 2020-05-04 15:18 | Progress Note ---
Assessment and Plan 1. Acute kidney injury: Vasomotor KIRT superimposed on CKD. CT abdomen negative for hydro. Monitor renal function. Creatinine leveled off. Renal prognosis is guarded. Avoid nephrotoxic agents. Meds dosage based on GFR. 2. FEN: Hypernatremia, started on IV D5W and HCTZ, monitor. Hypokalemia, replete K, monitor. Hyperchloremic metabolic acidosis, monitor. Monitor lytes and volume status. 3. Acute hypoxic respiratory failure: Possibly secondary to the CHF and underlying pneumonia. COVID-19 test negative. 4. Hypotension: Monitor BP. 5. Bradycardia: Followed by Cards. 6. Chronic CHF: Monitor daily weight, intake and outputs. Followed by Cards. 7. Anemia, POA: Monitor. 8. Elevated Transaminases: Improved. 9. DM type 2. Overall prognosis is guarded to slim. Subjective: Patient was seen and examined at the bedside. Examination: General appearance: well-developed, appears stated age, not in distress, restrains HEENT: ATNC, pupils equal Neck: trachea midline Respiratory: diminish breath sounds Heart: regular, S1S2, no murmur Gastrointestinal: soft, normoactive bowel sounds, not tender Integumentary: no rash, warm and dry Neurologic: somnolent, non-verbal Ext: no edema Subjective Date of service: 05/04/20 Principal diagnosis: CHF Objective - Vital Signs Vital signs: Vital Signs - 12hr 05/04/20 05/04/20 05/04/20 03:47 04:00 08:00 Temperature 97.6 F Pulse Rate 65 65 59 L Pulse Rate [ Right Throughout] Respiratory 17 Rate Respiratory Rate [Right Throughout] Blood Pressure 108/52 O2 Sat by Pulse 98 Oximetry 05/04/20 05/04/20 05/04/20 08:13 08:46 09:17 Temperature 98.9 F Pulse Rate 72 Pulse Rate [ 70 Right Throughout] Respiratory 16 Rate Respiratory 18 Rate [Right Throughout] Blood Pressure 113/55 O2 Sat by Pulse 98 98 Oximetry 05/04/20 11:59 Temperature 98.4 F Pulse Rate 74 Pulse Rate [ Right Throughout] Respiratory 16 Rate Respiratory Rate [Right Throughout] Blood Pressure 103/61 O2 Sat by Pulse 95 Oximetry - Lab 05/04/20 10:36 05/05/20 07:39 Most recent lab results ABG pH 7.387 pH Units (7.350-7.450) 04/29/20 11:50 ABG pCO2 31.8 mm Hg 04/29/20 11:50 ABG pO2 102.9 mm Hg (80.0-90.0) H 04/29/20 11:50 ABG HCO3 18.7 mmol/L (20.0-26.0) L 04/29/20 11:50 ABG O2 Saturation 97.8 % (95.0-99.0) 04/29/20 11:50 Calcium 8.4 mg/dL (8.4-10.2) 05/04/20 04:00 Phosphorus 5.60 mg/dL (2.5-4.5) H 04/10/20 22:50 Magnesium 2.40 mg/dL (1.7-2.3) H 04/10/20 22:50 Urine Creatinine 35.3 mg/dL (0.1-20.0) H 04/11/20 Unknown Urine Sodium 92 mmol/L 04/11/20 Unknown Medications & Allergies - Medications Allergies/Adverse Reactions: Allergies Sulfa (Sulfonamide Antibiotics) Allergy (Verified 07/30/18 17:44) Rash Home Medications: Home Medications Medication Instructions Recorded Confirmed Last Taken Type Gabapentin 300 mg PO BID 09/19/16 04/21/20 09/18/16 History 300 mg Metformin HCl [metFORMIN ER 500 mg PO BIDWM 03/28/17 04/21/20 Unknown History Gastric] AtorvaSTATin 10 mg PO QHS #30 tablet 12/21/17 04/21/20 Unknown Rx Ranolazine ER [Ranexa ER] 500 mg PO BID #60 tablet 12/21/17 04/21/20 Unknown Rx Aspirin 325 mg PO QDAY #30 tablet 01/12/18 04/21/20 04/21/20 Rx Diphenoxylate/Atropine [Lomotil] 1 tab PO Q8H PRN 01/15/18 04/21/20 Unknown History Insulin Lispro [HumaLOG VIAL] See Protocol SQ ACHS 01/15/18 04/21/20 04/21/20 18:46 History Promethazine [Phenergan] 25 mg PO Q4H PRN 01/15/18 04/21/20 Unknown History Albuterol Mdi (or & Nicu Only) 2 puff IH Q4HR PRN #1 inhalation 12/21/18 04/21/20 04/21/20 18:46 Rx [ProAir HFA Inhaler] Furosemide [Lasix TAB] 20 mg PO QDAY #30 tablet 02/03/20 04/21/20 Unknown Rx Metoprolol Xl [Metoprolol 25 mg PO DAILY #60 tablet 02/03/20 04/21/20 04/21/20 18:45 Rx SUCCINATE ER TAB] levETIRAcetam [Keppra TAB] 500 mg PO BID #120 tablet 02/03/20 04/21/20 Unknown Rx levoFLOXacin [Levaquin TAB] 500 mg PO QDAY #5 tablet 02/03/20 04/21/20 Unknown Rx Active Medications: Generic Name Dose Route Start Last Admin Trade Name Freq PRN Reason Stop Dose Admin Acetaminophen 650 mg 04/11/20 01:26 04/23/20 23:13 Tylenol PO 650 mg Q6H PRN Administration Pain MILD(1-3)/Fever >100.5/MANCILLA Lipase/Protease/Amylase 1 each 04/11/20 14:[address] 10,500 Unit FEEDTUBE PRN PRN For Clogged Feeding Tube Arformoterol Tartrate 15 mcg 04/20/20 20:00 05/04/20 08:13 Brovana Nebu IH 15 mcg Q12HRT PRAVIN Administration Budesonide 0.5 mg 04/20/20 20:00 05/04/20 08:13 Pulmicort IH 0.5 mg Q12HRT PRAVIN Administration Norepinephrine 4 mg in 250 mls @ 7.5 mls/hr 04/25/20 17:00 05/02/20 11:41 Levophed Drip 4 Mg/Ns 250 Ml IV 0 mcg/min TITR PRAVIN 0 mls/hr Titration Protocol 2 MCG/MIN Dobutamine HCl/Dextrose 500 mg in 250 mls @ 9.45 mls/hr 05/02/20 12:00 05/03/20 17:11 Dobutrex Drip 500mg/D5w 250ml IV 5 mcg/kg/min DIRECT PRAVIN 9.45 mls/hr Administration Protocol 5 MCG/KG/MIN Insulin Human Lispro 0 unit 04/16/20 16:30 05/04/20 11:53 Humalog SUB-Q Not Given ACHS PRAVIN Protocol Magnesium Hydroxide 30 ml 04/11/20 01:26 Milk Of Magnesia PO Q4H PRN Constipation Midodrine 10 mg 05/01/20 16:00 05/04/20 10:00 Proamatine PO 10 mg TID@0800,1200,1600 PRAVIN Administration Ondansetron HCl 4 mg 04/25/20 04:53 04/25/20 05:25 Zofran IV 4 mg Q8H PRN Administration Nausea And Vomiting Simple Syrup 15 ml 04/11/20 14:22 Simple Syrup FEEDTUBE PRN PRN Hypoglycemia Simple Syrup 30 ml 04/11/20 14:22 Simple Syrup FEEDTUBE PRN PRN Hypoglycemia Sodium Bicarbonate 325 mg 04/11/20 14:22 Sodium Bicarbonate FEEDTUBE PRN PRN For Clogged Feeding Tube Sodium Chloride 10 ml 04/11/20 10:00 05/04/20 11:52 Sodium Chloride Flush Syringe 10 Ml IV 10 ml BID PRAVIN Administration Sodium Chloride 10 ml 04/11/20 01:26 Sodium Chloride Flush Syringe 10 Ml IV PRN PRN LINE FLUSH
--- NOTE | 2020-05-04 15:19 | Procedure Note ---
Date of procedure: 05/04/20 Pre-op diagnosis: L pleural effusion Post-op diagnosis: same Procedure: US guided thoracentesis Findings: See radiology report. Anesthesia: local Surgeon: BERTIN OSEGUERA Estimated blood loss: minimal Pathology: list (Orders per primary team) Specimen disposition: to lab Condition: stable Disposition: floor
--- NOTE | 2020-05-04 15:29 | Ultrasound Report ---
Ultrasound-guided thoracentesis HISTORY: Left pleural effusion. COMPARISON: Chest x-ray from 2 days prior PROCEDURE: The risks (including but not limited to bleeding, infection, and pneumothorax) and benefi ts were explained to the patient and informed consent was obtained. A time out procedure was perform ed. Ultrasound was used to evaluate the left pleural effusion and locate the optimal site for needle entr y. Once the skin was marked, the procedure site was prepped and draped in the usual sterile fashion and lidocaine was used for local anesthesia. A skin abdirahman was made and a 6-Thai thoracentesis estephania ter was placed. The patient was monitored closely throughout the procedure, and a total of 1300 mL o f thin yellow fluid was aspirated. Samples were sent to the lab for further evaluation per the prima clinicians orders. The patient tolerated the procedure well with no complications. A post-procedure chest x-ray was imm ediately ordered. IMPRESSION: Successful thoracentesis as above with a total of 1300 mL of thin yellow fluid aspirated. Signer Name: Aaron Vega MD Signed: 05/04/2020 3:25 PM Workstation Name: [id number]
[2020-05-04] MEDS ORDERED: hydroCHLOROthiazide 25 MG TAB PO ONE (16:19)
--- NOTE | 2020-05-04 16:52 | XRay Report ---
XR chest 1V ap INDICATION / CLINICAL INFORMATION: post thoracentesis. COMPARISON: 05/02/2020 FINDINGS: SUPPORT DEVICES: Right upper extremity PICC is stable. HEART /PULMONARY VASCULATURE: Stable. LUNGS / PLEURA:. There is significant improvement in left sided pleural effusion status post thoracen tesis. No evidence of pneumothorax. Trace residual pleural fluid is present on the left. No sizable p leural effusion the right. Bibasilar opacities are unchanged. ADDITIONAL FINDINGS: No significant additional findings. IMPRESSION: Significant improvement in left-sided pleural effusion status post thoracentesis. No evidence of pneu mothorax. Signer Name: Juanito Sheffield MD Signed: 05/04/2020 4:48 PM Workstation Name: [id number]
[2020-05-04] MEDS: POTASSIUM CHLORIDE 20 MEQ in DEXTROSE 5% IN WATER 1,000 ML IV SCH (17:23)
[2020-05-04] MEDS ORDERED: ALPRAZolam 1 MG TAB PO PRN (18:53)
[2020-05-04] MEDS: DOBUTamine/D5W 500 MG/250 ML 500 MG/250 ML BAG IV SCH (20:13)
[2020-05-05] MEDS: INSULIN LISPRO 100 UNIT/ML VIAL 3 mL SUB-Q SCH ×2 (08:13→22:12)
[2020-05-05 08:44] LABS: Calcium 8.4 mg/dL (8.4-10.2)
[2020-05-05] MEDS: BUDESONIDE 0.5 MG/2 ML NEBU IH SCH ×2 (08:47→21:34)
[2020-05-05] MEDS: ARFORMOTEROL 15 MCG/2 ML NEBU IH SCH ×2 (08:47→21:34)
--- NOTE | 2020-05-05 09:18 | Progress Note ---
<SENA HIGGINS - Last Filed: 05/05/20 09:15> Assessment and Plan Chronic systolic heart failure LVEF 15-20% by echo 01/2020 VQ scan reports a low probability for PE. COVID 19 test was negative Paroxysmal Atrial fibrillation vs flutter metoprolol discontinued due to sinus bradycardia low dose Eliquis discontinued due to development of severe anemia normal TSH of 3.6 Chronic anemia Severe Thrombocytopenia Hypotension on midodrine Left pleural effusion s/p thoracentesis 05/04 Dehydration Hx of Ischemic cardiomyopathy noncompliant with outpatient cardiac follow up. Hx of CAD Abdominal pain CT scan of the abdomen suggestive of colitis. Renal insufficiency Continue current cardiac management. Subjective Date of service: 05/05/20 Principal diagnosis: CHF Interval history: s/p left thoracentesis. IV dobutrex continues. Objective Vital Signs Temp Pulse Pulse Pulse Pulse Resp Resp 05/05/20 09:08 98.2 F 66 16 05/05/20 08:50 88 24 05/05/20 05:04 98.7 F 68 05/05/20 04:00 68 05/05/20 00:00 68 05/04/20 23:35 82 05/04/20 23:28 98.0 F 18 05/04/20 22:00 80 80 05/04/20 20:25 90 20 05/04/20 20:00 68 05/04/20 19:40 98.0 F 18 05/04/20 17:16 97.9 F 55 L 16 05/04/20 16:00 74 05/04/20 15:10 05/04/20 11:59 98.4 F 74 16 05/04/20 09:17 BP BP Pulse Ox 05/05/20 09:08 90/55 99 05/05/20 08:50 05/05/20 05:04 107/68 05/05/20 04:00 05/05/20 00:00 05/04/20 23:35 05/04/20 23:28 110/59 05/04/20 22:00 96 05/04/20 20:25 05/04/20 20:00 05/04/20 19:40 95/55 05/04/20 17:16 102/56 95 05/04/20 16:00 05/04/20 15:10 98 05/04/20 11:59 103/61 95 05/04/20 09:17 98 - Physical Examination General: No Apparent Distress, Cachectic HEENT: Positive: PERRL Cardiac: Positive: Reg Rate and Rhythm Lungs: Positive: Decreased Breath Sounds, Rhonchi Neuro: Positive: Weakness Abdomen: Positive: Soft Skin: Positive: Clear Extremities: Absent: edema - Labs and Meds CBC 05/04/20 Range/Units 10:36 WBC 2.8 L (4.5-11.0) K/mm3 RBC 2.94 L (3.65-5.03) M/mm3 Hgb 7.5 L (11.8-15.2) gm/dl Hct 23.5 L (35.5-45.6) % Plt Count 32 L (140-440) K/mm3 Comprehensive Metabolic Panel 05/05/20 Range/Units 07:39 Sodium 152 H (137-145) mmol/L Potassium 3.6 (3.6-5.0) mmol/L Chloride 122.0 H (98-107) mmol/L Carbon Dioxide 20 L (22-30) mmol/L BUN 49 H (9-20) mg/dL Creatinine 2.4 H (0.8-1.3) mg/dL Glucose 105 H (75-100) mg/dL Calcium 8.4 (8.4-10.2) mg/dL <DOTTIE REYNOSO - Last Filed: 05/05/20 12:41> Assessment and Plan - Patient Problems (1) Acute and chronic respiratory failure Current Visit: Yes Status: Acute (2) Acute exacerbation of CHF (congestive heart failure) Current Visit: Yes Status: Acute (3) Coronary artery disease Current Visit: Yes Status: Acute Subjective Interval history: I SAW THIS PT & AGREE WITH THE Dx & Tx PLAN. Objective Vital Signs Temp Pulse Pulse Pulse Pulse Resp Resp 05/05/20 12:20 97.9 F 103 H 16 05/05/20 09:08 98.2 F 66 16 05/05/20 08:50 88 24 05/05/20 05:04 98.7 F 68 05/05/20 04:00 68 05/05/20 00:00 68 05/04/20 23:35 82 05/04/20 23:28 98.0 F 18 05/04/20 22:00 80 80 05/04/20 20:25 90 20 05/04/20 20:00 68 05/04/20 19:40 98.0 F 18 05/04/20 17:16 97.9 F 55 L 16 05/04/20 16:00 74 05/04/20 15:10 BP BP Pulse Ox 05/05/20 12:20 91/59 98 05/05/20 09:08 90/55 99 05/05/20 08:50 05/05/20 05:04 107/68 05/05/20 04:00 05/05/20 00:00 05/04/20 23:35 05/04/20 23:28 110/59 05/04/20 22:00 96 05/04/20 20:25 05/04/20 20:00 05/04/20 19:40 95/55 05/04/20 17:16 102/56 95 05/04/20 16:00 05/04/20 15:10 98 - Labs and Meds Comprehensive Metabolic Panel 05/05/20 Range/Units 07:39 Sodium 152 H (137-145) mmol/L Potassium 3.6 (3.6-5.0) mmol/L Chloride 122.0 H (98-107) mmol/L Carbon Dioxide 20 L (22-30) mmol/L BUN 49 H (9-20) mg/dL Creatinine 2.4 H (0.8-1.3) mg/dL Glucose 105 H (75-100) mg/dL Calcium 8.4 (8.4-10.2) mg/dL
--- NOTE | 2020-05-05 09:19 | Progress Note ---
Assessment and Plan Assessment and plan: ---Acute respiratory failure Current Visit: Yes Status: Acute Plan to address problem: Continue oxygen supplementation --Acute on chronic systolic CHF (congestive heart failure) Current Visit: Yes Status: Acute Plan to address problem: Holding Lasix due to KIRT Will monitor daily weight, inputs and outputs. Monitor renal function closely Cardiology on board --KIRT on CKD Current Visit: Yes Status: Acute Plan to address problem: Had KIRT 2/2 vasomotor nephropathy Lasix given due to worsening pulm edema but Cr bumped. Hold lasix --Colitis Current Visit: Yes Status: Acute Plan to address problem: Resolved GI recommendations appreciated --Left sided pleural effusion Current Visit: No Status: Acute Plan to address problem: Lasix held due to worsening renal function Will get US thoracentesis when IR <1.5. Pulmonology consulted. --Arrhythmias Current Visit: Yes Status: Acute Plan to address problem: Initially started on amiodarone but discontinued due to elevated LFTs Noted to have pauses on telemetry. Metoprolol discontinued-awaiting cardiology recommendations at this time. Pacer placed at bedside Transfer patient to [facility] for now Holding apixaban due to thrombocytopenia Cardiology recommendations appreciated --Diabetes mellitus type 2 in nonobese Current Visit: No Status: Acute Plan to address problem: Lantus and sliding scale insulin. --Hyperkalemia and metabolic acidosis Current Visit: Yes Status: Acute Plan to address problem: Resolved --T12 compression fracture Current Visit: No Status: Likely chronic Plan to address problem: CT abdomen showed acute appearing T12 compression fracture 04/14. MRI thoracic without contrast ordered to further evaluate. 04/15. Patient is agitated and unable to get an MRI. 04/16. Awaiting MRI without contrast thoracic. Plan to use sedatives today. Informed RN. If positive for acute fracture, patient will need to be transferred for neurosurgery evaluation. 04/17. MRI thoracic and lumbar showed acute T12 compression fracture. Discussed case with [place] neurosurgery career professional who advised no acute intervention is necessary at this time-advised TLSO brace when patient is sitting or ambulatory. He will need follow-up with Dr. Dalton Jack, Dr. Alan Henson, Dr. Tyson Clark [contact number [phone]] after discharge. ---Elevated LFTs Current Visit: Yes Status: Acute Plan to address problem: Improving US abdomen shows no acute pathology ---Infrarenal aortic aneurysm Current Visit: No Status: Acute Plan to address problem: 3.8 cm in diameter Needs to follow-up with vascular surgery at discharge for monitoring -Shock Current Visit: No Status: Acute Plan to address problem: Improved VQ scan to rule out PE - negative -- Hypernatremia Current Visit: No Status: Acute Plan to address problem: Due to poor intake. NG tube placement ordered. Patient continues to refuse NG tube placement. Needs PEG placement. GI consulted Start water via NG tube 400cc q8 hours Trend sodium -- DVT prophylaxis Current Visit: No Status: Acute Plan to address problem: Hold heparin for now --Full code status Current Visit: No Status: Acute Disposition-home with hospice as per patient son when stable 04/11. Patient seen and examined at bedside this morning. Patient is on BiPAP. Patient is eager to go home. Otherwise denies any chest pain or palpitations. Patient CT showed possible compression fracture of T12, it is unknown if this is new. We will get MRI without contrast of the thoracic and lumbar to further evaluate. If patient actually has an acute compression fracture, he will need to have a neurosurgery evaluation so will need to be transferred to another facility for this. Otherwise, patient continue to monitor patient's respiratory status while in the IMCU. Patient reportedly failed a swallow evaluation and will need to have an NG tube placement. Tried to call son on number provided in the chart and left a message. Awaiting callback. Labs reviewed-patient has elevated inflammatory [id number], LDH. COVID-19 test has been ordered. Started patient on steroids. Ordered stat BMP, ABG, D-dimer, proBNP, ferritin, LDH. 04/12. COVID -19 test is negative. His breathing has improved so was placed on nasal cannula. Cardiology adjusted meds today. He failed swallow evaluation yesterday. He requests for food. Will reattempt swallow evaluation. Speech therapy consult. 04/13. Overnight, he developed VT and was started on amiodarone. HR better this AM. Cardiology will review medications. Patient seen and examined at bedside this AM. He requests for food. He failed a repeat speech evaluation and will need barium swallow. May need PEG placement if he fails. NG tube in place. Vitals reviewed 04/14. Heart rate improved. Remains n.p.o. with NG tube feeds. Video swallow evaluation shows mild abnormal study. Speech therapist to see patient. Patient has not been able to have an MRI of the back due to agitation. He had a CT during the admission that showed possible compression fracture of T12 but this has not been fully evaluated due to patient's ongoing conditions. Labs reviewed-renal function is worse. Discontinue Lasix. 04/15. Has been started on a diet and is tolerating. He pulled out his NG tube last night. Okay to leave NG tube for now. Plan to get an MRI performed today with sedative to evaluate T12 fracture. Patient denies any back pain. Renal function slightly improved today after Lasix was discontinued. Continue IV hydration. Nephrology recommendations appreciated 04/16. He feels better today. MRI could not be done yesterday. Hopefully patient can have an MRI done today. Creatinine 3.1 today. Patient will need placement but will need to have evaluation of possible T12 fracture prior to discharge 04/17. MRI thoracic and lumbar showed acute T12 compression fracture. Discussed case with [place] neurosurgery career professional who advised no acute intervention is necessary at this time-advised TLSO brace when patient is sitting or am bulatory. He will need follow-up with Dr. Dalton Jack, Dr. Alan Henson, Dr. Tyson Clark [contact number [phone]] after discharge. 04/18. Await Nephrology recs for d/c plans 04/19/2020. Patient reportedly with choking/coughing with swallowing. We will change to n.p.o. status right now. Speech reevaluation. Check chest x-ray to rule out aspiration pneumonia. Await nephrology recommendations for discharge. Creatinine slowly improving. CT of abdomen negative for hydronephrosis. BUN increasing. Therefore, we will check Hemoccult of stool to rule out GI bleed. Hemoglobin has been stable. 04/20/2020. Repeat chest x-ray reveals worsening bibasilar opacities. Pulmonary consulted. Doppler of left upper extremity for swelling. PT evaluation recommends subacute rehab 04/21/2020. Await pulmonary consultation for worsening bibasilar opacities. Doppler of left upper extremity pending. PT evaluation recommends subacute rehab. Creatinine has improved to near baseline of 1.8. Nephrology following 04/22/2020. Pulmonary sees no need for antibiotics or further evaluation of bibasilar opacities with CT scan. Continue current COPD treatment. Beta blockers increase for A. fib per cardiology. Await Doppler left upper extremity. PT evaluation recommends subacute rehab but case management reports patient's son Haseeb [phone]. Haseeb wants patient to return home with [facility]. 04/23/2020. Continue beta-blockers for atrial fibrillation per cardiology. Await left upper extremity Doppler ultrasound for left upper extremity swelling. PT evaluation recommends subacute rehab but case management reports patient's son Haseeb [phone]. Haseeb wants patient to return home with [facility]. Creatinine appears to be improved to baseline. Anticipate discharge in the next 1 to 2 days. 04/24/2020. Continue beta-blockers for atrial fibrillation per cardiology. Await left upper extremity Doppler ultrasound for left upper extremity swelling. Haseeb (son [phone]) wants patient to return home with [facility]. Creatinine appears to be improved to baseline. Patient now with hypernatremia. ?Tenuous IV fluid hydration--defer to nephrology. 04/25. Blood pressure low this morning but subsequently improved with slow bolus . Sodium today is 150. Patient is dehydrated and is asking for water to drink. I have discussed with RN to ensure patient gets enough water to help with dehydration. His heart rate is controlled and cardiology has adjusted the medication today due to slight hypotension.-Metoprolol now 25 every 8 hours. He is alert and oriented x3 this morning and is able to make needs known. Check BMP every 8 hours for now. Nephrology following 04/26. Transferred to the ICU due to persisted hypotension. WBC trending up. Started on antibiotics. Aetiology of shock could be sepsis. Other differentials - cardiogenic vs obstructive (has been on eliquis 2.5mg BID so not likely. His ddimer is elevated and he cannot get contrast - will get VQ scan. Critical care to see. Blood culture ordered. Repeat labs in AM 04/27. On levophed. Leukocytosis better. Check procalcitonin. On antibiotics. Rest of labs shows anemia and thrombocytopenia. Will dc eliquis. Lasix given but Cr bump noted. Holding lasix for now. Repeat chest xray to evaluate infiltrate and effusion 04/28. BP stable so he was transferred to telemetry. He failed swallow evaluation. Place an NG tube and start free water via NG tube. DC D5w. He will need GI evaluation for PEG tube placement. Lasix was given for worsening infiltrate and effusion but Cr bumped. Awaiting repeat chest xray to evaluate for infiltrate. Ordered INR and BNP. May need US thoracentesis for left pleural effusion. Will get pulm consult. Labs reviewed- still has hypernatremia - nephrology following. heme consult for thrombocytopenia. GI consulted for PEG tube placement 04/29. NG tube not yet placed. Sodium 155. Needs to be started on water via NG tube. No IVF as he has systolic CHF. Consultants notes reviewed. 04/30. Patient continues to refuse NG tube. Patient noted to have bradycardia this a.m. down to 30s-40s. Also has pauses up to 2 seconds this AM. Metoprolol has been discontinued. Patient needed 1 dose of atropine with slight improvement. Pacer placed at bedside. Patient was transferred to the [facility] for close monitoring. Cardiology has been paged and awaiting callback. Discussed with RN. Plan for PEG tube placement as per GI. Maintain n.p.o. for now 05/01. Now in the ICU on pressors due to hypotension. GI was consulted as patient has failed multiple swallow evaluations during this admission and GI plans to place a PEG tube when cardiac status is stable. Cardiology to evaluate today. Heart rate remains in the 40s to 50s. 05/02/2020; patient is on low-dose of Levophed. Cardiology is following for bradycardia, hypotension and abnormal rhythm, he has ejection fraction of 15%. GI is considering to do PEG tube placement once stable cardiac renee. Patient is on hospice care at home but whenever he becomes sick family revoked hospice and bring to the hospital. Once stabilized will take him and keep him on hospice. Management plan discussed with cardiology PA, superintendent circus and case management. 05/03/2020; patient is off Levophed. Cardiology is following for bradycardia, hypotension and abnormal rhythm, he has ejection fraction of 15%. GI is considering to do PEG tube placement once stable cardiac renee. Patient is on hospice care at home but whenever he becomes sick family revoked hospice and bring to the hospital. Once stabilized will take him and keep him on hospice. Transfer to telemetry floor. 05/04/2020; bradycardia and hypotension resolved. Cardiology is following for CHF. Patient is on hospice care at home but whenever he becomes sick family revoked hospice and bring to the hospital. Once stabilized will take him and keep him on hospice. 05/05/2020; patient was agitated yesterday and was on restraints. Patient has hypernatremia. Will encourage free water intake. Nephrology and cardiology is following the patient. History Interval history: Patient was seen and evaluated this morning He has shortness of breath and on 3 L of oxygen Hypotension and bradycardia resolved Patient agitated and on restraints Hospitalist Physical - Physical exam Narrative exam: Patient is on 3 L of oxygen The patient appeared well nourished and normally developed. Vital signs as documented. Head exam is unremarkable. No scleral icterus . Neck is without jugular venous distension, thyromegaly, or carotid bruits. Lungs decreased air entry. Cardiac exam reveals regular rate and Rhythm. Abdominal exam reveals normal bowel sounds, nontender, no organomegaly. Extremities are nonedematous and both femoral and pedal pulses are normal. DRINKING WATER TECHNICIAN: Patient was confused. - Constitutional Vitals: Temp Pulse Resp BP Pulse Ox 98.2 F 66 16 90/55 99 05/05/20 09:08 05/05/20 09:08 05/05/20 09:08 05/05/20 09:08 05/05/20 09:08 General appearance: Present: no acute distress HEART Score - HEART Score Troponin: Troponin T 0.081 ng/mL (0.00-0.029) H 04/10/20 20:04 Results - Labs CBC & Chem 7: 05/04/20 10:36 05/05/20 07:39 Labs: Laboratory Last Values WBC 2.8 K/mm3 (4.5-11.0) L 05/04/20 10:36 RBC 2.94 M/mm3 (3.65-5.03) L 05/04/20 10:36 Hgb 7.5 gm/dl (11.8-15.2) L 05/04/20 10:36 Hct 23.5 % (35.5-45.6) L 05/04/20 10:36 MCV 80 fl (84-94) L 05/04/20 10:36 MCH 25 pg (28-32) L 05/04/20 10:36 MCHC 32 % (32-34) 05/04/20 10:36 RDW 23.1 % (13.2-15.2) H 05/04/20 10:36 Plt Count 32 K/mm3 (140-440) L 05/04/20 10:36 Lymph % (Auto) 14.4 % (13.4-35.0) 05/03/20 04:31 [place] % (Auto) 7.2 % (0.0-7.3) 05/03/20 04:31 Eos % (Auto) 1.0 % (0.0-4.3) 05/03/20 04:31 Baso % (Auto) 0.9 % (0.0-1.8) 05/03/20 04:31 Lymph # (Auto) 0.6 K/mm3 (1.2-5.4) L 05/03/20 04:31 [place] # (Auto) 0.3 K/mm3 (0.0-0.8) 05/03/20 04:31 Eos # (Auto) 0.0 K/mm3 (0.0-0.4) 05/03/20 04:31 Baso # (Auto) 0.0 K/mm3 (0.0-0.1) 05/03/20 04:31 Add Manual Diff Complete 05/04/20 10:36 Total Counted 100 05/04/20 10:36 Seg Neutrophils % 76.5 % (40.0-70.0) H 05/03/20 04:31 Seg Neuts % (Manual) 83.0 % (40.0-70.0) H 05/04/20 10:36 Band Neutrophils % 0 % 04/26/20 10:13 Lymphocytes % (Manual) 15.0 % (13.4-35.0) 05/04/20 10:36 Reactive Lymphs % (Man) 0 % 04/26/20 10:13 Monocytes % (Manual) 2.0 % (0.0-7.3) 05/04/20 10:36 Eosinophils % (Manual) 0 % (0.0-4.3) 04/26/20 10:13 Basophils % (Manual) 1.0 % (0.0-1.8) 04/26/20 10:13 Metamyelocytes % 0 % 04/26/20 10:13 Myelocytes % 0 % 04/26/20 10:13 Promyelocytes % 0 % 04/26/20 10:13 Blast Cells % 0 % 04/26/20 10:13 Nucleated RBC % 2.0 % (0.0-0.9) H 05/04/20 10:36 Seg Neutrophils # 3.1 K/mm3 (1.8-7.7) 05/03/20 04:31 Seg Neutrophils # Man 2.3 K/mm3 (1.8-7.7) 05/04/20 10:36 Band Neutrophils # 0.0 K/mm3 05/04/20 10:36 Lymphocytes # (Manual) 0.4 K/mm3 (1.2-5.4) L 05/04/20 10:36 Abs React Lymphs (Man) 0.0 K/mm3 05/04/20 10:36 Monocytes # (Manual) 0.1 K/mm3 (0.0-0.8) 05/04/20 10:36 Eosinophils # (Manual) 0.0 K/mm3 (0.0-0.4) 05/04/20 10:36 Basophils # (Manual) 0.0 K/mm3 (0.0-0.1) 05/04/20 10:36 Metamyelocytes # 0.0 K/mm3 05/04/20 10:36 Myelocytes # 0.0 K/mm3 05/04/20 10:36 Promyelocytes # 0.0 K/mm3 05/04/20 10:36 Blast Cells # 0.0 K/mm3 05/04/20 10:36 WBC Morphology Not Reportable 05/04/20 10:36 Hypersegmented Neuts Not Reportable 05/04/20 10:36 Hyposegmented Neuts Not Reportable 05/04/20 10:36 Hypogranular Neuts Not Reportable 05/04/20 10:36 Smudge Cells Not Reportable 05/04/20 10:36 Toxic Granulation Not Reportable 05/04/20 10:36 Toxic Vacuolation Not Reportable 05/04/20 10:36 Dohle Bodies Not Reportable 05/04/20 10:36 Pelger-Huet Anomaly Not Reportable 05/04/20 10:36 Barby Rods Not Reportable 05/04/20 10:36 Platelet Estimate Appears decreased 05/04/20 10:36 Clumped Platelets Not Reportable 05/04/20 10:36 Plt Clumps, EDTA Not Reportable 05/04/20 10:36 Large Platelets Not Reportable 05/04/20 10:36 Giant Platelets Not Reportable 05/04/20 10:36 Platelet Satelliting Not Reportable 05/04/20 10:36 Plt Morphology Comment Not Reportable 05/04/20 10:36 RBC Morphology Not Reportable 05/04/20 10:36 Dimorphic RBCs Not Reportable 05/04/20 10:36 Polychromasia Not Reportable 05/04/20 10:36 Hypochromasia 1+ 05/04/20 10:36 Poikilocytosis 1+ 05/04/20 10:36 Anisocytosis 2+ 05/04/20 10:36 Microcytosis Not Reportable 05/04/20 10:36 Macrocytosis Not Reportable 05/04/20 10:36 Spherocytes Not Reportable 05/04/20 10:36 Pappenheimer Bodies Not Reportable 05/04/20 10:36 Sickle Cells Not Reportable 05/04/20 10:36 Target Cells Not Reportable 05/04/20 10:36 Tear Drop Cells Not Reportable 05/04/20 10:36 Ovalocytes Not Reportable 05/04/20 10:36 Helmet Cells Not Reportable 05/04/20 10:36 Snell-Mannington Bodies Not Reportable 05/04/20 10:36 Beulah Rings Not Reportable 05/04/20 10:36 Marcia Cells 1+ 05/04/20 10:36 Bite Cells Not Reportable 05/04/20 10:36 Crenated Cell Not Reportable 05/04/20 10:36 Elliptocytes Not Reportable 05/04/20 10:36 Acanthocytes (Spur) Not Reportable 05/04/20 10:36 Rouleaux Not Reportable 05/04/20 10:36 Hemoglobin C Crystals Not Reportable 05/04/20 10:36 Schistocytes Rare 05/04/20 10:36 Malaria parasites Not Reportable 05/04/20 10:36 Willie Bodies Not Reportable 05/04/20 10:36 Hem Pathologist Commnt No 05/04/20 10:36 PT 17.4 Sec. (12.2-14.9) H 05/01/20 07:10 INR 1.43 (0.87-1.13) H 05/01/20 07:10 D-Dimer 1259.67 ng/mlDDU (0-234) H 04/25/20 16:09 Heparin Anti-Xa Level 0.35 U.I./ml (0.3-0.7) 04/13/20 05:06 Heparin Anti-Xa, Unfract Negative (Negative) 04/30/20 08:59 ABG pH 7.387 pH Units (7.350-7.450) 04/29/20 11:50 ABG pCO2 31.8 mm Hg 04/29/20 11:50 ABG pO2 102.9 mm Hg (80.0-90.0) H 04/29/20 11:50 ABG HCO3 18.7 mmol/L (20.0-26.0) L 04/29/20 11:50 ABG O2 Saturation 97.8 % (95.0-99.0) 04/29/20 11:50 ABG O2 Content 10.2 (0.0-44) 04/29/20 11:50 ABG Base Excess -5.7 mmol/L (-2.0-3.0) L 04/29/20 11:50 ABG Hemoglobin 7.5 gm/dl (14.0-18.0) L 04/29/20 11:50 ABG Carboxyhemoglobin 2.2 % (0.0-5.0) 04/29/20 11:50 ABG Methemoglobin 0.4 % (0.0-1.5) 04/29/20 11:50 Oxyhemoglobin 95.3 % (95.0-99.0) 04/29/20 11:50 FiO2 32 % 04/29/20 11:50 Sodium 152 mmol/L (137-145) H 05/05/20 07:39 Potassium 3.6 mmol/L (3.6-5.0) 05/05/20 07:39 Chloride 122.0 mmol/L (98-107) H 05/05/20 07:39 Carbon Dioxide 20 mmol/L (22-30) L 05/05/20 07:39 Anion Gap 14 mmol/L 05/05/20 07:39 BUN 49 mg/dL (9-20) H 05/05/20 07:39 Creatinine 2.4 mg/dL (0.8-1.3) H 05/05/20 07:39 Estimated GFR 27 ml/min 05/05/20 07:39 BUN/Creatinine Ratio 20 % 05/05/20 07:39 Glucose 105 mg/dL (75-100) H 05/05/20 07:39 POC Glucose 105 mg/dL (70-105) 05/05/20 08:24 Lactic Acid 3.00 mmol/L (0.7-2.0) H* 04/12/20 06:22 Calcium 8.4 mg/dL (8.4-10.2) 05/05/20 07:39 Phosphorus 5.60 mg/dL (2.5-4.5) H 04/10/20 22:50 Magnesium 2.40 mg/dL (1.7-2.3) H 04/10/20 22:50 Ferritin 135.1 ng/mL (30.0-300.0) 04/11/20 15:11 Total Bilirubin 2.30 mg/dL (0.1-1.2) H 05/03/20 04:31 Direct Bilirubin 0.6 mg/dL (0-0.2) H 04/15/20 04:56 Indirect Bilirubin 0.3 mg/dL 04/15/20 04:56 AST 19 units/L (5-40) 05/03/20 04:31 ALT 22 units/L (7-56) 05/03/20 04:31 Alkaline Phosphatase 73 units/L (35-129) 05/03/20 04:31 Lactate Dehydrogenase 210 units/L (91-180) H 04/28/20 11:10 Troponin T 0.081 ng/mL (0.00-0.029) H 04/10/20 20:04 C-Reactive Protein 5.60 mg/dL (0.00-1.30) H 04/10/20 20:51 NT-Pro-B Natriuret Pep 54644 pg/mL (0-900) H 04/28/20 11:10 Total Protein 5.2 g/dL (6.3-8.2) L 05/03/20 04:31 Albumin 2.4 g/dL (3.9-5) L 05/03/20 04:31 Albumin/Globulin Ratio 0.9 % 05/03/20 04:31 Triglycerides 113 mg/dL (2-149) 04/10/20 20:04 Cholesterol 178 mg/dL (50-199) 04/10/20 20:04 LDL Cholesterol Direct 123 mg/dL (50-130) 04/10/20 20:04 HDL Cholesterol 41 mg/dL (40-59) 04/10/20 20:04 Cholesterol/HDL Ratio 4.34 % 04/10/20 20:04 Serotonin Release Assay See scanned result 04/17/20 22:45 Procalcitonin 0.38 ng/mL (<0.15) 04/27/20 09:30 TSH 3.640 mlU/mL (0.270-4.200) 04/13/20 10:06 Urine Color Yellow (Yellow) 04/11/20 Unknown Urine Turbidity Clear (Clear) 04/11/20 Unknown Urine pH 5.0 (5.0-7.0) 04/11/20 Unknown Ur Specific [place] 1.009 (1.003-1.030) 04/11/20 Unknown Urine Protein <15 mg/dl mg/dL (Negative) 04/11/20 Unknown Urine Glucose (UA) Neg mg/dL (Negative) 04/11/20 Unknown Urine Ketones Neg mg/dL (Negative) 04/11/20 Unknown Urine Blood Neg (Negative) 04/11/20 Unknown Urine Nitrite Neg (Negative) 04/11/20 Unknown Urine Bilirubin Neg (Negative) 04/11/20 Unknown Urine Urobilinogen < 2.0 mg/dL (<2.0) 04/11/20 Unknown Ur Leukocyte Esterase Neg (Negative) 04/11/20 Unknown Urine WBC (Auto) 1.0 /HPF (0.0-6.0) 04/11/20 Unknown Urine RBC (Auto) 2.0 /HPF (0.0-6.0) 04/11/20 Unknown U Epithel Cells (Auto) < 1.0 /HPF (0-13.0) 04/11/20 Unknown Hyaline Casts 3 /LPF 04/11/20 Unknown Urine Mucus Few /HPF 04/11/20 Unknown Urine Eosinophils None seen (None Seen) 04/11/20 Unknown Urine Osmolality 528 Mosm/kg 05/03/20 15:50 Urine Creatinine 35.3 mg/dL (0.1-20.0) H 04/11/20 Unknown Urine Sodium 92 mmol/L 04/11/20 Unknown Heparin-induced Plt Ab Positive (Negative) H 04/30/20 08:59 UF Heparin High Dose 0 % Release 04/30/20 08:59 CHERYL UFH Low Dose 0.1 0 % Release 04/30/20 08:59 CHERYL UFH Low Dose 0.5 0 % Release 04/30/20 08:59 Coronavirus (PCR) Negative (Negative) 04/29/20 10:59 Hepatitis A IgM Ab Non-reactive (NonReactive) 04/12/20 20:23 Hep Bs Antigen Non-reactive (Negative) 04/12/20 20:23 Hep B Core IgM Ab Non-reactive (NonReactive) 04/12/20 20:23 Hepatitis C Antibody Non-reactive (NonReactive) 04/12/20 20:23 Blood Type AB POSITIVE 05/02/20 07:00 Antibody Screen Negative 05/02/20 07:00 Crossmatch See Detail 05/02/20 07:00 Gay/IV: Voiding Method Condom Catheter IV Catheter Type [Right Peripheral IV External Jugular] IV Catheter Type [Left Peripheral IV External Jugular] IV Catheter Type [Right Upper PICC Line arm] IV Catheter Type [Left Wrist] Peripheral IV IV Catheter Type [Right INT / Saline Lock Forearm] IV Catheter Type [Right Wrist] INT / Saline Lock Active Medications - Current Medications Current Medications: Generic Name Dose Route Start Last Admin Trade Name Freq PRN Reason Stop Dose Admin Acetaminophen 650 mg 04/11/20 01:26 04/23/20 23:13 Tylenol PO 650 mg Q6H PRN Administration Pain MILD(1-3)/Fever >100.5/MANCILLA Alprazolam 1 mg 05/04/20 18:53 Alprazolam 1 Mg Tab PO Q8H PRN Anxiety Lipase/Protease/Amylase 1 each 04/11/20 14:22 Pancremiley Saenz 10,500 Unit FEEDTUBE PRN PRN For Clogged Feeding Tube Arformoterol Tartrate 15 mcg 04/20/20 20:00 05/05/20 08:47 Brovana Nebu IH 15 mcg Q12HRT PRAVIN Administration Budesonide 0.5 mg 04/20/20 20:00 05/05/20 08:47 Pulmicort IH 0.5 mg Q12HRT PRAVIN Administration Norepinephrine 4 mg in 250 mls @ 7.5 mls/hr 04/25/20 17:00 05/02/20 11:41 Levophed Drip 4 Mg/Ns 250 Ml IV 0 mcg/min TITR PRAVIN 0 mls/hr Titration Protocol 2 MCG/MIN Dobutamine HCl/Dextrose 500 mg in 250 mls @ 9.45 mls/hr 05/02/20 12:00 05/04/20 20:13 Dobutrex Drip 500mg/D5w 250ml IV 5 mcg/kg/min DIRECT PRAVIN 9.45 mls/hr Administration Protocol 5 MCG/KG/MIN Potassium Chloride 20 meq/ 1,010 mls @ 50 mls/hr 05/04/20 16:30 05/04/20 17:23 Dextrose IV 50 mls/hr DIRECT PRAVIN Administration Insulin Human Lispro 0 unit 04/16/20 16:30 05/04/20 22:44 Humalog SUB-Q Not Given ACHS PRAVIN Protocol Magnesium Hydroxide 30 ml 04/11/20 01:26 Milk Of Magnesia PO Q4H PRN Constipation Midodrine 10 mg 05/01/20 16:00 05/04/20 17:31 Proamatine PO 10 mg TID@0800,1200,1600 PRAVIN Administration Ondansetron HCl 4 mg 04/25/20 04:53 04/25/20 05:25 Zofran IV 4 mg Q8H PRN Administration Nausea And Vomiting Simple Syrup 15 ml 04/11/20 14:22 Simple Syrup FEEDTUBE PRN PRN Hypoglycemia Simple Syrup 30 ml 04/11/20 14:22 Simple Syrup FEEDTUBE PRN PRN Hypoglycemia Sodium Bicarbonate 325 mg 04/11/20 14:22 Sodium Bicarbonate FEEDTUBE PRN PRN For Clogged Feeding Tube Sodium Chloride 10 ml 04/11/20 10:00 05/04/20 22:43 Sodium Chloride Flush Syringe 10 Ml IV 10 ml BID PRAVIN Administration Sodium Chloride 10 ml 04/11/20 01:26 Sodium Chloride Flush Syringe 10 Ml IV PRN PRN LINE FLUSH Nutrition/Malnutrition Assess - Dietary Evaluation Nutrition/Malnutrition Findings: Nutrition Notes Start: 04/11/20 13:41 Freq: Status: Active Protocol: Document 05/03/20 11:50 EN (Rec: 05/03/20 12:02 [id number]) Co-Sign 05/03/20 11:50 LM Nutrition Notes Initial or Follow up Reassessment Current Diagnosis Acute Kidney Injury,CKD(stage I-IV),COPD,Coronary Artery Disease,Diabetes,Hypertension, Heart Failure Other Pertinent Diagnosis [place], Crohn's disease, seizure, colitis Current Diet Full Liquid Labs/Tests Na 154 K+ 3.2 BUN 57 Cr 2.4 Pertinent Medications KCl Height 5 ft 7 in Weight 63 kg [place] Body Weight (kg) 67.27 BMI 21.7 Weight Status Appropriate Subjective/Other Information F/u for TF start or POC. Per Dr. Gonzalez, pt advanced to full liquid diet and moving to telemetry. Per RN, pt consuming 0% of meals and only drinking tea. Pt would like to try Glucerna [place]. Pt denies N/V/D Percent of energy/protein needs met: 0%/0% Burn Absent Trauma Absent Difficulty In Swallowing,Chewing Current % PO Negligible Minimum of two criteria No Energy Intake (severe) < or equal to 50% Estimated Energy Requirement > or equal to 5 days #1 Nutrition Diagnosis Inadequate oral intake As Evidenced by Signs and Symptoms Pt advanced from NPO to full liquid Diagnosis Progress(for reassessment Improved documentation) Is patient on ventilator? No Is Patient Ambulatory and/or Out of Bed No REE-([facility]-confined to bed) 1606.602 Calculation Used for Recommendations [facility] Additional Notes Protein Needs: 63-78 g (1-1.2 g/kg) Fluid Needs: 1 mL/kcal Nutrition Intervention Change Diet Order: Advance diet as medically advised Nutrition Support: D/c Add Supplement/Snack (indicate name/kcal Glucerna TID /protein ) Provides kCal: 660 Provides Protein (gm) 30 Goal #1 Meet at least 75% of energy and protein needs via PO and ONS Goal #2 Diet advancement Anticipated Discharge Needs: Unable to determine at this time Follow-Up By: 05/05/20 Additional Comments F/u for diet advancement, intakes and ONS tolerance
--- NOTE | 2020-05-05 10:16 | Progress Note ---
Assessment and Plan 1. Acute kidney injury: Vasomotor KIRT superimposed on CKD. CT abdomen negative for hydro. Monitor renal function. Creatinine leveled off. Renal prognosis is guarded. Avoid nephrotoxic agents. Meds dosage based on GFR. 2. FEN: Hypernatremia, continue IV D5W and HCTZ, monitor. Hypokalemia, replete K, monitor. Hyperchloremic metabolic acidosis, monitor. Monitor lytes and volume status. 3. Acute hypoxic respiratory failure: Possibly secondary to the CHF and underlying pneumonia. COVID-19 test negative. 4. Hypotension: Monitor BP. 5. Bradycardia: Followed by Cards. 6. Chronic CHF: Monitor daily weight, intake and outputs. Followed by Cards. 7. Anemia, POA: Monitor. 8. Elevated Transaminases: Improved. 9. DM type 2. Overall prognosis is guarded to slim. Subjective: Patient was seen and examined at the bedside. Examination: General appearance: well-developed, appears stated age, not in distress, restrains HEENT: ATNC, pupils equal Neck: trachea midline Respiratory: diminish breath sounds Heart: regular, S1S2, no murmur Gastrointestinal: soft, normoactive bowel sounds, not tender Integumentary: no rash, warm and dry Neurologic: somnolent, non-verbal Ext: no edema Subjective Date of service: 05/05/20 Principal diagnosis: CHF Objective - Vital Signs Vital signs: Vital Signs - 12hr 05/04/20 05/04/20 05/05/20 23:28 23:35 00:00 Temperature 98.0 F Pulse Rate 82 68 Pulse Rate [ Anterior Bilateral Throughout] Respiratory 18 Rate Respiratory Rate [Anterior Bilateral Throughout] Blood Pressure 110/59 Blood Pressure [Left] O2 Sat by Pulse Oximetry 05/05/20 05/05/20 05/05/20 04:00 05:04 08:50 Temperature 98.7 F Pulse Rate 68 68 Pulse Rate [ 88 Anterior Bilateral Throughout] Respiratory Rate Respiratory 24 Rate [Anterior Bilateral Throughout] Blood Pressure Blood Pressure 107/68 [Left] O2 Sat by Pulse Oximetry 05/05/20 09:08 Temperature 98.2 F Pulse Rate 66 Pulse Rate [ Anterior Bilateral Throughout] Respiratory 16 Rate Respiratory Rate [Anterior Bilateral Throughout] Blood Pressure 90/55 Blood Pressure [Left] O2 Sat by Pulse 99 Oximetry - Lab 05/04/20 10:36 05/05/20 07:39 Most recent lab results ABG pH 7.387 pH Units (7.350-7.450) 04/29/20 11:50 ABG pCO2 31.8 mm Hg 04/29/20 11:50 ABG pO2 102.9 mm Hg (80.0-90.0) H 04/29/20 11:50 ABG HCO3 18.7 mmol/L (20.0-26.0) L 04/29/20 11:50 ABG O2 Saturation 97.8 % (95.0-99.0) 04/29/20 11:50 Calcium 8.4 mg/dL (8.4-10.2) 05/05/20 07:39 Phosphorus 5.60 mg/dL (2.5-4.5) H 04/10/20 22:50 Magnesium 2.40 mg/dL (1.7-2.3) H 04/10/20 22:50 Urine Creatinine 35.3 mg/dL (0.1-20.0) H 04/11/20 Unknown Urine Sodium 92 mmol/L 04/11/20 Unknown Medications & Allergies - Medications Allergies/Adverse Reactions: Allergies Sulfa (Sulfonamide Antibiotics) Allergy (Verified 07/30/18 17:44) Rash Home Medications: Home Medications Medication Instructions Recorded Confirmed Last Taken Type Gabapentin 300 mg PO BID 09/19/16 04/21/20 09/18/16 History 300 mg Metformin HCl [metFORMIN ER 500 mg PO BIDWM 03/28/17 04/21/20 Unknown History Gastric] AtorvaSTATin 10 mg PO QHS #30 tablet 12/21/17 04/21/20 Unknown Rx Ranolazine ER [Ranexa ER] 500 mg PO BID #60 tablet 12/21/17 04/21/20 Unknown Rx Aspirin 325 mg PO QDAY #30 tablet 01/12/18 04/21/20 04/21/20 Rx Diphenoxylate/Atropine [Lomotil] 1 tab PO Q8H PRN 01/15/18 04/21/20 Unknown History Insulin Lispro [HumaLOG VIAL] See Protocol SQ ACHS 01/15/18 04/21/20 04/21/20 18:46 History Promethazine [Phenergan] 25 mg PO Q4H PRN 01/15/18 04/21/20 Unknown History Albuterol Mdi (or & Nicu Only) 2 puff IH Q4HR PRN #1 inhalation 12/21/18 04/21/20 04/21/20 18:46 Rx [ProAir HFA Inhaler] Furosemide [Lasix TAB] 20 mg PO QDAY #30 tablet 02/03/20 04/21/20 Unknown Rx Metoprolol Xl [Metoprolol 25 mg PO DAILY #60 tablet 02/03/20 04/21/20 04/21/20 18:45 Rx SUCCINATE ER TAB] levETIRAcetam [Keppra TAB] 500 mg PO BID #120 tablet 02/03/20 04/21/20 Unknown Rx levoFLOXacin [Levaquin TAB] 500 mg PO QDAY #5 tablet 02/03/20 04/21/20 Unknown Rx Active Medications: Generic Name Dose Route Start Last Admin Trade Name Freq PRN Reason Stop Dose Admin Acetaminophen 650 mg 04/11/20 01:26 04/23/20 23:13 Tylenol PO 650 mg Q6H PRN Administration Pain MILD(1-3)/Fever >100.5/MANCILLA Alprazolam 1 mg 05/04/20 18:53 Alprazolam 1 Mg Tab PO Q8H PRN Anxiety Lipase/Protease/Amylase 1 each 04/11/20 14:[address] 10,500 Unit FEEDTUBE PRN PRN For Clogged Feeding Tube Arformoterol Tartrate 15 mcg 04/20/20 20:00 05/05/20 08:47 Brovana Nebu IH 15 mcg Q12HRT PRAVIN Administration Budesonide 0.5 mg 04/20/20 20:00 05/05/20 08:47 Pulmicort IH 0.5 mg Q12HRT PRAVIN Administration Norepinephrine 4 mg in 250 mls @ 7.5 mls/hr 04/25/20 17:00 05/02/20 11:41 Levophed Drip 4 Mg/Ns 250 Ml IV 0 mcg/min TITR PRAVIN 0 mls/hr Titration Protocol 2 MCG/MIN Dobutamine HCl/Dextrose 500 mg in 250 mls @ 9.45 mls/hr 05/02/20 12:00 05/04/20 20:13 Dobutrex Drip 500mg/D5w 250ml IV 5 mcg/kg/min DIRECT PRAVIN 9.45 mls/hr Administration Protocol 5 MCG/KG/MIN Potassium Chloride 20 meq/ 1,010 mls @ 50 mls/hr 05/04/20 16:30 05/04/20 17:23 Dextrose IV 50 mls/hr DIRECT PRAVIN Administration Insulin Human Lispro 0 unit 04/16/20 16:30 05/04/20 22:44 Humalog SUB-Q Not Given ACHS [facility] Protocol Magnesium Hydroxide 30 ml 04/11/20 01:26 Milk Of Magnesia PO Q4H PRN Constipation Midodrine 10 mg 05/01/20 16:00 05/04/20 17:31 Proamatine PO 10 mg TID@0800,1200,1600 PRAVIN Administration Ondansetron HCl 4 mg 04/25/20 04:53 04/25/20 05:25 Zofran IV 4 mg Q8H PRN Administration Nausea And Vomiting Simple Syrup 15 ml 04/11/20 14:22 Simple Syrup FEEDTUBE PRN PRN Hypoglycemia Simple Syrup 30 ml 04/11/20 14:22 Simple Syrup FEEDTUBE PRN PRN Hypoglycemia Sodium Bicarbonate 325 mg 04/11/20 14:22 Sodium Bicarbonate FEEDTUBE PRN PRN For Clogged Feeding Tube Sodium Chloride 10 ml 04/11/20 10:00 05/04/20 22:43 Sodium Chloride Flush Syringe 10 Ml IV 10 ml BID PRAVIN Administration Sodium Chloride 10 ml 04/11/20 01:26 Sodium Chloride Flush Syringe 10 Ml IV PRN PRN LINE FLUSH
[2020-05-05] MEDS: POTASSIUM CHLORIDE 20 MEQ in DEXTROSE 5% IN WATER 1,000 ML IV SCH (13:08)
[2020-05-05] MEDS: DOBUTamine/D5W 500 MG/250 ML 500 MG/250 ML BAG IV SCH (22:12)
[2020-05-06 08:11] LABS: Calcium 8.6 mg/dL (8.4-10.2)
--- NOTE | 2020-05-06 08:25 | Progress Note ---
Assessment and Plan Assessment and plan: ---Acute respiratory failure Current Visit: Yes Status: Acute Plan to address problem: Continue oxygen supplementation --Acute on chronic systolic CHF (congestive heart failure) Current Visit: Yes Status: Acute Plan to address problem: Holding Lasix due to KIRT Will monitor daily weight, inputs and outputs. Monitor renal function closely Cardiology on board --KIRT on CKD Current Visit: Yes Status: Acute Plan to address problem: Had KIRT 2/2 vasomotor nephropathy Lasix given due to worsening pulm edema but Cr bumped. Hold lasix --Colitis Current Visit: Yes Status: Acute Plan to address problem: Resolved GI recommendations appreciated --Left sided pleural effusion Current Visit: No Status: Acute Plan to address problem: Lasix held due to worsening renal function Will get US thoracentesis when IR <1.5. Pulmonology consulted. --Arrhythmias Current Visit: Yes Status: Acute Plan to address problem: Initially started on amiodarone but discontinued due to elevated LFTs Noted to have pauses on telemetry. Metoprolol discontinued-awaiting cardiology recommendations at this time. Pacer placed at bedside Transfer patient to [facility] for now Holding apixaban due to thrombocytopenia Cardiology recommendations appreciated --Diabetes mellitus type 2 in nonobese Current Visit: No Status: Acute Plan to address problem: Lantus and sliding scale insulin. --Hyperkalemia and metabolic acidosis Current Visit: Yes Status: Acute Plan to address problem: Resolved --T12 compression fracture Current Visit: No Status: Likely chronic Plan to address problem: CT abdomen showed acute appearing T12 compression fracture 04/14. MRI thoracic without contrast ordered to further evaluate. 04/15. Patient is agitated and unable to get an MRI. 04/16. Awaiting MRI without contrast thoracic. Plan to use sedatives today. Informed RN. If positive for acute fracture, patient will need to be transferred for neurosurgery evaluation. 04/17. MRI thoracic and lumbar showed acute T12 compression fracture. Discussed case with [facility] neurosurgery cessation systems outreach specialist who advised no acute intervention is necessary at this time-advised TLSO brace when patient is sitting or ambulatory. He will need follow-up with Dr. Dalton Jack, Dr. Alan Henson, Dr. Tsyon Clark [contact number [phone]] after discharge. ---Elevated LFTs Current Visit: Yes Status: Acute Plan to address problem: Improving US abdomen shows no acute pathology ---Infrarenal aortic aneurysm Current Visit: No Status: Acute Plan to address problem: 3.8 cm in diameter Needs to follow-up with vascular surgery at discharge for monitoring -Shock Current Visit: No Status: Acute Plan to address problem: Improved VQ scan to rule out PE - negative -- Hypernatremia Current Visit: No Status: Acute Plan to address problem: Due to poor intake. NG tube placement ordered. Patient continues to refuse NG tube placement. Needs PEG placement. GI consulted Start water via NG tube 400cc q8 hours Trend sodium -- DVT prophylaxis Current Visit: No Status: Acute Plan to address problem: Hold heparin for now --Full code status Current Visit: No Status: Acute Disposition-home with hospice as per patient son when stable 04/11. Patient seen and examined at bedside this morning. Patient is on BiPAP. Patient is eager to go home. Otherwise denies any chest pain or palpitations. Patient CT showed possible compression fracture of T12, it is unknown if this is new. We will get MRI without contrast of the thoracic and lumbar to further evaluate. If patient actually has an acute compression fracture, he will need to have a neurosurgery evaluation so will need to be transferred to another facility for this. Otherwise, patient continue to monitor patient's respiratory status while in the IMCU. Patient reportedly failed a swallow evaluation and will need to have an NG tube placement. Tried to call son on number provided in the chart and left a message. Awaiting callback. Labs reviewed-patient has elevated inflammatory [id number], LDH. COVID-19 test has been ordered. Started patient on steroids. Ordered stat BMP, ABG, D-dimer, proBNP, ferritin, LDH. 04/12. COVID -19 test is negative. His breathing has improved so was placed on nasal cannula. Cardiology adjusted meds today. He failed swallow evaluation yesterday. He requests for food. Will reattempt swallow evaluation. Speech therapy consult. 04/13. Overnight, he developed VT and was started on amiodarone. HR better this AM. Cardiology will review medications. Patient seen and examined at bedside this AM. He requests for food. He failed a repeat speech evaluation and will need barium swallow. May need PEG placement if he fails. NG tube in place. Vitals reviewed 04/14. Heart rate improved. Remains n.p.o. with NG tube feeds. Video swallow evaluation shows mild abnormal study. Speech therapist to see patient. Patient has not been able to have an MRI of the back due to agitation. He had a CT during the admission that showed possible compression fracture of T12 but this has not been fully evaluated due to patient's ongoing conditions. Labs reviewed-renal function is worse. Discontinue Lasix. 04/15. Has been started on a diet and is tolerating. He pulled out his NG tube last night. Okay to leave NG tube for now. Plan to get an MRI performed today with sedative to evaluate T12 fracture. Patient denies any back pain. Renal function slightly improved today after Lasix was discontinued. Continue IV hydration. Nephrology recommendations appreciated 04/16. He feels better today. MRI could not be done yesterday. Hopefully patient can have an MRI done today. Creatinine 3.1 today. Patient will need placement but will need to have evaluation of possible T12 fracture prior to discharge 04/17. MRI thoracic and lumbar showed acute T12 compression fracture. Discussed case with [facility] neurosurgery cessation systems outreach specialist who advised no acute intervention is necessary at this time-advised TLSO brace when patient is sitting or am bulatory. He will need follow-up with Dr. Dalton Jack, Dr. Alan Henson, Dr. Tyson Clark [contact number [phone]] after discharge. 04/18. Await Nephrology recs for d/c plans 04/19/2020. Patient reportedly with choking/coughing with swallowing. We will change to n.p.o. status right now. Speech reevaluation. Check chest x-ray to rule out aspiration pneumonia. Await nephrology recommendations for discharge. Creatinine slowly improving. CT of abdomen negative for hydronephrosis. BUN increasing. Therefore, we will check Hemoccult of stool to rule out GI bleed. Hemoglobin has been stable. 04/20/2020. Repeat chest x-ray reveals worsening bibasilar opacities. Pulmonary consulted. Doppler of left upper extremity for swelling. PT evaluation recommends subacute rehab 04/21/2020. Await pulmonary consultation for worsening bibasilar opacities. Doppler of left upper extremity pending. PT evaluation recommends subacute rehab. Creatinine has improved to near baseline of 1.8. Nephrology following 04/22/2020. Pulmonary sees no need for antibiotics or further evaluation of bibasilar opacities with CT scan. Continue current COPD treatment. Beta blockers increase for A. fib per cardiology. Await Doppler left upper extremity. PT evaluation recommends subacute rehab but case management reports patient's son Haseeb [phone]. Haseeb wants patient to return home with [facility]. 04/23/2020. Continue beta-blockers for atrial fibrillation per cardiology. Await left upper extremity Doppler ultrasound for left upper extremity swelling. PT evaluation recommends subacute rehab but case management reports patient's son Haseeb [phone]. Haseeb wants patient to return home with [facility]. Creatinine appears to be improved to baseline. Anticipate discharge in the next 1 to 2 days. 04/24/2020. Continue beta-blockers for atrial fibrillation per cardiology. Await left upper extremity Doppler ultrasound for left upper extremity swelling. Haseeb (son [phone]) wants patient to return home with [facility]. Creatinine appears to be improved to baseline. Patient now with hypernatremia. ?Tenuous IV fluid hydration--defer to nephrology. 04/25. Blood pressure low this morning but subsequently improved with slow bolus . Sodium today is 150. Patient is dehydrated and is asking for water to drink. I have discussed with RN to ensure patient gets enough water to help with dehydration. His heart rate is controlled and cardiology has adjusted the medication today due to slight hypotension.-Metoprolol now 25 every 8 hours. He is alert and oriented x3 this morning and is able to make needs known. Check BMP every 8 hours for now. Nephrology following 04/26. Transferred to the ICU due to persisted hypotension. WBC trending up. Started on antibiotics. Aetiology of shock could be sepsis. Other differentials - cardiogenic vs obstructive (has been on eliquis 2.5mg BID so not likely. His ddimer is elevated and he cannot get contrast - will get VQ scan. Critical care to see. Blood culture ordered. Repeat labs in AM 04/27. On levophed. Leukocytosis better. Check procalcitonin. On antibiotics. Rest of labs shows anemia and thrombocytopenia. Will dc eliquis. Lasix given but Cr bump noted. Holding lasix for now. Repeat chest xray to evaluate infiltrate and effusion 04/28. BP stable so he was transferred to telemetry. He failed swallow evaluation. Place an NG tube and start free water via NG tube. DC D5w. He will need GI evaluation for PEG tube placement. Lasix was given for worsening infiltrate and effusion but Cr bumped. Awaiting repeat chest xray to evaluate for infiltrate. Ordered INR and BNP. May need US thoracentesis for left pleural effusion. Will get pulm consult. Labs reviewed- still has hypernatremia - nephrology following. heme consult for thrombocytopenia. GI consulted for PEG tube placement 04/29. NG tube not yet placed. Sodium 155. Needs to be started on water via NG tube. No IVF as he has systolic CHF. Consultants notes reviewed. 04/30. Patient continues to refuse NG tube. Patient noted to have bradycardia this a.m. down to 30s-40s. Also has pauses up to 2 seconds this AM. Metoprolol has been discontinued. Patient needed 1 dose of atropine with slight improvement. Pacer placed at bedside. Patient was transferred to the [facility] for close monitoring. Cardiology has been paged and awaiting callback. Discussed with RN. Plan for PEG tube placement as per GI. Maintain n.p.o. for now 05/01. Now in the ICU on pressors due to hypotension. GI was consulted as patient has failed multiple swallow evaluations during this admission and GI plans to place a PEG tube when cardiac status is stable. Cardiology to evaluate today. Heart rate remains in the 40s to 50s. 05/02/2020; patient is on low-dose of Levophed. Cardiology is following for bradycardia, hypotension and abnormal rhythm, he has ejection fraction of 15%. GI is considering to do PEG tube placement once stable cardiac renee. Patient is on hospice care at home but whenever he becomes sick family revoked hospice and bring to the hospital. Once stabilized will take him and keep him on hospice. Management plan discussed with cardiology PA, strategic account director and case management. 05/03/2020; patient is off Levophed. Cardiology is following for bradycardia, hypotension and abnormal rhythm, he has ejection fraction of 15%. GI is considering to do PEG tube placement once stable cardiac renee. Patient is on hospice care at home but whenever he becomes sick family revoked hospice and bring to the hospital. Once stabilized will take him and keep him on hospice. Transfer to telemetry floor. 05/04/2020; bradycardia and hypotension resolved. Cardiology is following for CHF. Patient is on hospice care at home but whenever he becomes sick family revoked hospice and bring to the hospital. Once stabilized will take him and keep him on hospice. 05/05/2020; patient was agitated yesterday and was on restraints. Patient has hypernatremia. Will encourage free water intake. Nephrology and cardiology is following the patient. 09/05/2019; patient was agitated yesterday and was on restraints. Patient has hypernatremia. Will encourage free water intake. Nephrology and cardiology is following the patient. Patient is on home hospice and will be discharged back home with home hospice once stable. History Interval history: Patient was seen and evaluated this morning He has shortness of breath and on 3 L of oxygen Hypotension and bradycardia resolved Patient agitated and on restraints Hospitalist Physical - Physical exam Narrative exam: Patient is on 3 L of oxygen The patient appeared well nourished and normally developed. Vital signs as documented. Head exam is unremarkable. No scleral icterus . Neck is without jugular venous distension, thyromegaly, or carotid bruits. Lungs decreased air entry. Cardiac exam reveals regular rate and Rhythm. Abdominal exam reveals normal bowel sounds, nontender, no organomegaly. Extremities are nonedematous and both femoral and pedal pulses are normal. MOLDER MEAT: Patient was confused. - Constitutional Vitals: Temp Pulse Resp BP Pulse Ox 97.8 F 80 20 112/54 96 05/06/20 05:02 05/06/20 05:02 05/05/20 21:34 05/06/20 05:02 05/06/20 05:02 General appearance: Present: no acute distress HEART Score - HEART Score Troponin: Troponin T 0.081 ng/mL (0.00-0.029) H 04/10/20 20:04 Results - Labs CBC & Chem 7: 05/04/20 10:36 05/06/20 07:00 Labs: Laboratory Last Values WBC 2.8 K/mm3 (4.5-11.0) L 05/04/20 10:36 RBC 2.94 M/mm3 (3.65-5.03) L 05/04/20 10:36 Hgb 7.5 gm/dl (11.8-15.2) L 05/04/20 10:36 Hct 23.5 % (35.5-45.6) L 05/04/20 10:36 MCV 80 fl (84-94) L 05/04/20 10:36 MCH 25 pg (28-32) L 05/04/20 10:36 MCHC 32 % (32-34) 05/04/20 10:36 RDW 23.1 % (13.2-15.2) H 05/04/20 10:36 Plt Count 32 K/mm3 (140-440) L 05/04/20 10:36 Lymph % (Auto) 14.4 % (13.4-35.0) 05/03/20 04:31 [place] % (Auto) 7.2 % (0.0-7.3) 05/03/20 04:31 Eos % (Auto) 1.0 % (0.0-4.3) 05/03/20 04:31 Baso % (Auto) 0.9 % (0.0-1.8) 05/03/20 04:31 Lymph # (Auto) 0.6 K/mm3 (1.2-5.4) L 05/03/20 04:31 [place] # (Auto) 0.3 K/mm3 (0.0-0.8) 05/03/20 04:31 Eos # (Auto) 0.0 K/mm3 (0.0-0.4) 05/03/20 04:31 Baso # (Auto) 0.0 K/mm3 (0.0-0.1) 05/03/20 04:31 Add Manual Diff Complete 05/04/20 10:36 Total Counted 100 05/04/20 10:36 Seg Neutrophils % 76.5 % (40.0-70.0) H 05/03/20 04:31 Seg Neuts % (Manual) 83.0 % (40.0-70.0) H 05/04/20 10:36 Band Neutrophils % 0 % 04/26/20 10:13 Lymphocytes % (Manual) 15.0 % (13.4-35.0) 05/04/20 10:36 Reactive Lymphs % (Man) 0 % 04/26/20 10:13 Monocytes % (Manual) 2.0 % (0.0-7.3) 05/04/20 10:36 Eosinophils % (Manual) 0 % (0.0-4.3) 04/26/20 10:13 Basophils % (Manual) 1.0 % (0.0-1.8) 04/26/20 10:13 Metamyelocytes % 0 % 04/26/20 10:13 Myelocytes % 0 % 04/26/20 10:13 Promyelocytes % 0 % 04/26/20 10:13 Blast Cells % 0 % 04/26/20 10:13 Nucleated RBC % 2.0 % (0.0-0.9) H 05/04/20 10:36 Seg Neutrophils # 3.1 K/mm3 (1.8-7.7) 05/03/20 04:31 Seg Neutrophils # Man 2.3 K/mm3 (1.8-7.7) 05/04/20 10:36 Band Neutrophils # 0.0 K/mm3 05/04/20 10:36 Lymphocytes # (Manual) 0.4 K/mm3 (1.2-5.4) L 05/04/20 10:36 Abs React Lymphs (Man) 0.0 K/mm3 05/04/20 10:36 Monocytes # (Manual) 0.1 K/mm3 (0.0-0.8) 05/04/20 10:36 Eosinophils # (Manual) 0.0 K/mm3 (0.0-0.4) 05/04/20 10:36 Basophils # (Manual) 0.0 K/mm3 (0.0-0.1) 05/04/20 10:36 Metamyelocytes # 0.0 K/mm3 05/04/20 10:36 Myelocytes # 0.0 K/mm3 05/04/20 10:36 Promyelocytes # 0.0 K/mm3 05/04/20 10:36 Blast Cells # 0.0 K/mm3 05/04/20 10:36 WBC Morphology Not Reportable 05/04/20 10:36 Hypersegmented Neuts Not Reportable 05/04/20 10:36 Hyposegmented Neuts Not Reportable 05/04/20 10:36 Hypogranular Neuts Not Reportable 05/04/20 10:36 Smudge Cells Not Reportable 05/04/20 10:36 Toxic Granulation Not Reportable 05/04/20 10:36 Toxic Vacuolation Not Reportable 05/04/20 10:36 Dohle Bodies Not Reportable 05/04/20 10:36 Pelger-Huet Anomaly Not Reportable 05/04/20 10:36 Barby Rods Not Reportable 05/04/20 10:36 Platelet Estimate Appears decreased 05/04/20 10:36 Clumped Platelets Not Reportable 05/04/20 10:36 Plt Clumps, EDTA Not Reportable 05/04/20 10:36 Large Platelets Not Reportable 05/04/20 10:36 Giant Platelets Not Reportable 05/04/20 10:36 Platelet Satelliting Not Reportable 05/04/20 10:36 Plt Morphology Comment Not Reportable 05/04/20 10:36 RBC Morphology Not Reportable 05/04/20 10:36 Dimorphic RBCs Not Reportable 05/04/20 10:36 Polychromasia Not Reportable 05/04/20 10:36 Hypochromasia 1+ 05/04/20 10:36 Poikilocytosis 1+ 05/04/20 10:36 Anisocytosis 2+ 05/04/20 10:36 Microcytosis Not Reportable 05/04/20 10:36 Macrocytosis Not Reportable 05/04/20 10:36 Spherocytes Not Reportable 05/04/20 10:36 Pappenheimer Bodies Not Reportable 05/04/20 10:36 Sickle Cells Not Reportable 05/04/20 10:36 Target Cells Not Reportable 05/04/20 10:36 Tear Drop Cells Not Reportable 05/04/20 10:36 Ovalocytes Not Reportable 05/04/20 10:36 Helmet Cells Not Reportable 05/04/20 10:36 [place] Bodies Not Reportable 05/04/20 10:36 [place] Rings Not Reportable 05/04/20 10:36 [place] Cells 1+ 05/04/20 10:36 Bite Cells Not Reportable 05/04/20 10:36 Crenated Cell Not Reportable 05/04/20 10:36 Elliptocytes Not Reportable 05/04/20 10:36 Acanthocytes (Spur) Not Reportable 05/04/20 10:36 Rouleaux Not Reportable 05/04/20 10:36 Hemoglobin C Crystals Not Reportable 05/04/20 10:36 Schistocytes Rare 05/04/20 10:36 Malaria parasites Not Reportable 05/04/20 10:36 Willie Bodies Not Reportable 05/04/20 10:36 Hem Pathologist Commnt No 05/04/20 10:36 PT 17.4 Sec. (12.2-14.9) H 05/01/20 07:10 INR 1.43 (0.87-1.13) H 05/01/20 07:10 D-Dimer 1259.67 ng/mlDDU (0-234) H 04/25/20 16:09 Heparin Anti-Xa Level 0.35 U.I./ml (0.3-0.7) 04/13/20 05:06 Heparin Anti-Xa, Unfract Negative (Negative) 04/30/20 08:59 ABG pH 7.387 pH Units (7.350-7.450) 04/29/20 11:50 ABG pCO2 31.8 mm Hg 04/29/20 11:50 ABG pO2 102.9 mm Hg (80.0-90.0) H 04/29/20 11:50 ABG HCO3 18.7 mmol/L (20.0-26.0) L 04/29/20 11:50 ABG O2 Saturation 97.8 % (95.0-99.0) 04/29/20 11:50 ABG O2 Content 10.2 (0.0-44) 04/29/20 11:50 ABG Base Excess -5.7 mmol/L (-2.0-3.0) L 04/29/20 11:50 ABG Hemoglobin 7.5 gm/dl (14.0-18.0) L 04/29/20 11:50 ABG Carboxyhemoglobin 2.2 % (0.0-5.0) 04/29/20 11:50 ABG Methemoglobin 0.4 % (0.0-1.5) 04/29/20 11:50 Oxyhemoglobin 95.3 % (95.0-99.0) 04/29/20 11:50 FiO2 32 % 04/29/20 11:50 Sodium 151 mmol/L (137-145) H 05/06/20 07:00 Potassium 3.9 mmol/L (3.6-5.0) 05/06/20 07:00 Chloride 120.1 mmol/L (98-107) H 05/06/20 07:00 Carbon Dioxide 20 mmol/L (22-30) L 05/06/20 07:00 Anion Gap 15 mmol/L 05/06/20 07:00 BUN 47 mg/dL (9-20) H 05/06/20 07:00 Creatinine 2.3 mg/dL (0.8-1.3) H 05/06/20 07:00 Estimated GFR 28 ml/min 05/06/20 07:00 BUN/Creatinine Ratio 20 % 05/06/20 07:00 Glucose 132 mg/dL (75-100) H 05/06/20 07:00 POC Glucose 123 mg/dL (70-105) H 05/05/20 15:28 Lactic Acid 3.00 mmol/L (0.7-2.0) H* 04/12/20 06:22 Calcium 8.6 mg/dL (8.4-10.2) 05/06/20 07:00 Phosphorus 4.50 mg/dL (2.5-4.5) 05/06/20 07:00 Magnesium 2.40 mg/dL (1.7-2.3) H 04/10/20 22:50 Ferritin 135.1 ng/mL (30.0-300.0) 04/11/20 15:11 Total Bilirubin 2.30 mg/dL (0.1-1.2) H 05/03/20 04:31 Direct Bilirubin 0.6 mg/dL (0-0.2) H 04/15/20 04:56 Indirect Bilirubin 0.3 mg/dL 04/15/20 04:56 AST 19 units/L (5-40) 05/03/20 04:31 ALT 22 units/L (7-56) 05/03/20 04:31 Alkaline Phosphatase 73 units/L (35-129) 05/03/20 04:31 Lactate Dehydrogenase 210 units/L (91-180) H 04/28/20 11:10 Troponin T 0.081 ng/mL (0.00-0.029) H 04/10/20 20:04 C-Reactive Protein 5.60 mg/dL (0.00-1.30) H 04/10/20 20:51 NT-Pro-B Natriuret Pep 02927 pg/mL (0-900) H 04/28/20 11:10 Total Protein 5.2 g/dL (6.3-8.2) L 05/03/20 04:31 Albumin 2.4 g/dL (3.9-5) L 05/03/20 04:31 Albumin/Globulin Ratio 0.9 % 05/03/20 04:31 Triglycerides 113 mg/dL (2-149) 04/10/20 20:04 Cholesterol 178 mg/dL (50-199) 04/10/20 20:04 LDL Cholesterol Direct 123 mg/dL (50-130) 04/10/20 20:04 HDL Cholesterol 41 mg/dL (40-59) 04/10/20 20:04 Cholesterol/HDL Ratio 4.34 % 04/10/20 20:04 Serotonin Release Assay See scanned result 04/17/20 22:45 Procalcitonin 0.38 ng/mL (<0.15) 04/27/20 09:30 TSH 3.640 mlU/mL (0.270-4.200) 04/13/20 10:06 Urine Color Yellow (Yellow) 04/11/20 Unknown Urine Turbidity Clear (Clear) 04/11/20 Unknown Urine pH 5.0 (5.0-7.0) 04/11/20 Unknown Ur Specific Lexa 1.009 (1.003-1.030) 04/11/20 Unknown Urine Protein <15 mg/dl mg/dL (Negative) 04/11/20 Unknown Urine Glucose (UA) Neg mg/dL (Negative) 04/11/20 Unknown Urine Ketones Neg mg/dL (Negative) 04/11/20 Unknown Urine Blood Neg (Negative) 04/11/20 Unknown Urine Nitrite Neg (Negative) 04/11/20 Unknown Urine Bilirubin Neg (Negative) 04/11/20 Unknown Urine Urobilinogen < 2.0 mg/dL (<2.0) 04/11/20 Unknown Ur Leukocyte Esterase Neg (Negative) 04/11/20 Unknown Urine WBC (Auto) 1.0 /HPF (0.0-6.0) 04/11/20 Unknown Urine RBC (Auto) 2.0 /HPF (0.0-6.0) 04/11/20 Unknown U Epithel Cells (Auto) < 1.0 /HPF (0-13.0) 04/11/20 Unknown Hyaline Casts 3 /LPF 04/11/20 Unknown Urine Mucus Few /HPF 04/11/20 Unknown Urine Eosinophils None seen (None Seen) 04/11/20 Unknown Urine Osmolality 528 Mosm/kg 05/03/20 15:50 Urine Creatinine 35.3 mg/dL (0.1-20.0) H 04/11/20 Unknown Urine Sodium 92 mmol/L 04/11/20 Unknown Heparin-induced Plt Ab Positive (Negative) H 04/30/20 08:59 UF Heparin High Dose 0 % Release 04/30/20 08:59 CHERYL UFH Low Dose 0.1 0 % Release 04/30/20 08:59 CHERYL UFH Low Dose 0.5 0 % Release 04/30/20 08:59 Coronavirus (PCR) Negative (Negative) 04/29/20 10:59 Hepatitis A IgM Ab Non-reactive (NonReactive) 04/12/20 20:23 Hep Bs Antigen Non-reactive (Negative) 04/12/20 20:23 Hep B Core IgM Ab Non-reactive (NonReactive) 04/12/20 20:23 Hepatitis C Antibody Non-reactive (NonReactive) 04/12/20 20:23 Blood Type AB POSITIVE 05/02/20 07:00 Antibody Screen Negative 05/02/20 07:00 Crossmatch See Detail 05/02/20 07:00 Gay/IV: Voiding Method Condom Catheter IV Catheter Type [Right Peripheral IV External Jugular] IV Catheter Type [Left Peripheral IV External Jugular] IV Catheter Type [Right Upper PICC Line arm] IV Catheter Type [Left Wrist] Peripheral IV IV Catheter Type [Right INT / Saline Lock Forearm] IV Catheter Type [Right Wrist] INT / Saline Lock Active Medications - Current Medications Current Medications: Generic Name Dose Route Start Last Admin Trade Name Freq PRN Reason Stop Dose Admin Acetaminophen 650 mg 04/11/20 01:26 04/23/20 23:13 Tylenol PO 650 mg Q6H PRN Administration Pain MILD(1-3)/Fever >100.5/MANCILLA Alprazolam 1 mg 05/04/20 18:53 Alprazolam 1 Mg Tab PO Q8H PRN Anxiety Lipase/Protease/Amylase 1 each 04/11/20 14:22 Pancremiley Saenz 10,500 Unit FEEDTUBE PRN PRN For Clogged Feeding Tube Arformoterol Tartrate 15 mcg 04/20/20 20:00 05/05/20 21:34 Brovana Nebu IH 15 mcg Q12HRT PRAVIN Administration Budesonide 0.5 mg 04/20/20 20:00 05/05/20 21:34 Pulmicort IH 0.5 mg Q12HRT PRAVIN Administration Dobutamine HCl/Dextrose 500 mg in 250 mls @ 9.45 mls/hr 05/02/20 12:00 05/05/20 22:12 Dobutrex Drip 500mg/D5w 250ml IV 5 mcg/kg/min DIRECT PRAVIN 9.45 mls/hr Administration Protocol 5 MCG/KG/MIN Potassium Chloride 20 meq/ 1,010 mls @ 50 mls/hr 05/04/20 16:30 05/05/20 13:08 Dextrose IV 50 mls/hr DIRECT PRAVIN Administration Insulin Human Lispro 0 unit 04/16/20 16:30 05/05/20 22:12 Humalog SUB-Q Not Given ACHS PRAVIN Protocol Magnesium Hydroxide 30 ml 04/11/20 01:26 Milk Of Magnesia PO Q4H PRN Constipation Midodrine 10 mg 05/01/20 16:00 05/04/20 17:31 Proamatine PO 10 mg TID@0800,1200,1600 PRAVIN Administration Ondansetron HCl 4 mg 04/25/20 04:53 04/25/20 05:25 Zofran IV 4 mg Q8H PRN Administration Nausea And Vomiting Simple Syrup 15 ml 04/11/20 14:22 Simple Syrup FEEDTUBE PRN PRN Hypoglycemia Simple Syrup 30 ml 04/11/20 14:22 Simple Syrup FEEDTUBE PRN PRN Hypoglycemia Sodium Bicarbonate 325 mg 04/11/20 14:22 Sodium Bicarbonate FEEDTUBE PRN PRN For Clogged Feeding Tube Sodium Chloride 10 ml 04/11/20 10:00 05/05/20 22:11 Sodium Chloride Flush Syringe 10 Ml IV 10 ml BID PRAVIN Administration Sodium Chloride 10 ml 04/11/20 01:26 Sodium Chloride Flush Syringe 10 Ml IV PRN PRN LINE FLUSH Nutrition/Malnutrition Assess - Dietary Evaluation Nutrition/Malnutrition Findings: Nutrition Notes Start: 04/11/20 13:41 Freq: Status: Active Protocol: Document 05/05/20 13:07 AT (Rec: 05/05/20 13:14 AT [id number]) Co-Sign 05/05/20 13:07 LP Nutrition Notes Initial or Follow up Reassessment Current Diagnosis Acute Kidney Injury,CKD(stage I-IV),COPD,Coronary Artery Disease,Diabetes,Hypertension, Heart Failure Other Pertinent Diagnosis VA, Crohn's disease, seizure, colitis Current Diet Full Liquid Labs/Tests Na 152 BUN 49 Cr 2.4 Pertinent Medications Humalog KCl 20 mEq Height 5 ft 7 in Weight 62.4 kg [place] Body Weight (kg) 67.27 BMI 21.5 Weight Status Appropriate Subjective/Other Information Follow up for diet advancement , ONS tolerance. Visited pt at bedside twice, pt did not arouse. Observed full beverages and other liquids pilling up in room. Burn Absent Trauma Absent Difficulty In Swallowing,Chewing Current % PO Poor (25-49%) Minimum of two criteria No Energy Intake (severe) < or equal to 50% Estimated Energy Requirement > or equal to 5 days #1 Nutrition Diagnosis Inadequate oral intake Diagnosis Progress(for reassessment Continues documentation) Is patient on ventilator? No Is Patient Ambulatory and/or Out of Bed No REE-([facility]-confined to bed) 7429.408 Calculation Used for Recommendations [facility] Additional Notes PRO needs: 62-75g (1-1.2 g/kg) Fluid needs: 1 mL/kcal Nutrition Intervention Change Diet Order: Advance diet as medically advised Add Supplement/Snack (indicate name/kcal Glucerna TID /protein ) Provides kCal: 660 Provides Protein (gm) 30 Goal #1 Meet at least 75% of energy and protein needs via PO and ONS Anticipated Discharge Needs: Unable to determine at this time Follow-Up By: 05/10/20 Additional Comments F/U for change in POC
[2020-05-06] MEDS: MIDODRINE 5 MG TAB PO SCH ×5 (08:42→17:26)
--- NOTE | 2020-05-06 08:54 | Progress Note ---
Assessment and Plan Chronic systolic heart failure LVEF 15-20% by echo 01/2020 VQ scan reports a low probability for PE. COVID 19 test was negative Paroxysmal Atrial fibrillation vs flutter metoprolol discontinued due to sinus bradycardia low dose Eliquis discontinued due to development of severe anemia normal TSH of 3.6 Chronic anemia Severe Thrombocytopenia Hypotension on midodrine Left pleural effusion s/p thoracentesis 05/04 Dehydration Hx of Ischemic cardiomyopathy noncompliant with outpatient cardiac follow up. Hx of CAD Abdominal pain CT scan of the abdomen suggestive of colitis. Renal insufficiency Recommendations: Decrease dobutamine to 2.5 mcg/kg/min in an effort to wean by tomorrow Subjective Date of service: 05/06/20 Principal diagnosis: CHF Interval history: Patient appears agitated this morning. No events overnight Objective Vital Signs Temp Pulse Pulse Pulse Resp Resp Resp 05/06/20 05:02 97.8 F 73 05/06/20 03:51 97.8 F 83 05/06/20 01:16 79 05/06/20 00:00 88 05/05/20 21:36 05/05/20 21:34 75 67 20 20 05/05/20 19:27 98.0 F 102 H 20 05/05/20 16:16 97.9 F 90 16 05/05/20 16:00 88 05/05/20 12:20 97.9 F 103 H 16 05/05/20 12:00 89 05/05/20 09:08 98.2 F 66 16 BP BP Pulse Ox 05/06/20 05:02 112/54 96 05/06/20 03:51 99/51 05/06/20 01:16 98 05/06/20 00:00 05/05/20 21:36 100 05/05/20 21:34 05/05/20 19:27 111/55 100 05/05/20 16:16 100/60 92 05/05/20 16:00 05/05/20 12:20 91/59 98 05/05/20 12:00 05/05/20 09:08 90/55 99 - Physical Examination General: No Apparent Distress, Cachectic HEENT: Positive: PERRL Neck: Positive: trachea midline Cardiac: Positive: Reg Rate and Rhythm Lungs: Positive: Rhonchi Neuro: Positive: Weakness Abdomen: Positive: Soft Skin: Positive: Clear Extremities: Absent: edema - Labs and Meds Comprehensive Metabolic Panel 05/06/20 Range/Units 07:00 Sodium 151 H (137-145) mmol/L Potassium 3.9 (3.6-5.0) mmol/L Chloride 120.1 H (98-107) mmol/L Carbon Dioxide 20 L (22-30) mmol/L BUN 47 H (9-20) mg/dL Creatinine 2.3 H (0.8-1.3) mg/dL Glucose 132 H (75-100) mg/dL Calcium 8.6 (8.4-10.2) mg/dL
[2020-05-06] MEDS: ARFORMOTEROL 15 MCG/2 ML NEBU IH SCH ×2 (09:13→22:35)
[2020-05-06] MEDS: BUDESONIDE 0.5 MG/2 ML NEBU IH SCH ×2 (09:13→22:35)
--- NOTE | 2020-05-06 09:44 | Progress Note ---
Assessment and Plan 1. Acute kidney injury: Vasomotor KIRT superimposed on CKD. CT abdomen negative for hydro. Monitor renal function. Creatinine leveled off. Renal prognosis is guarded. Avoid nephrotoxic agents. Meds dosage based on GFR. 2. FEN: Hypernatremia, continue IV D5W and HCTZ, monitor. Hypokalemia, replete K as needed, monitor. Hyperchloremic metabolic acidosis, monitor. Monitor lytes and volume status. 3. Acute hypoxic respiratory failure: Possibly secondary to the CHF and underlying pneumonia. COVID-19 test negative. 4. Hypotension: Monitor BP. 5. Bradycardia: Followed by Cards. 6. Chronic CHF: Monitor daily weight, intake and outputs. Followed by Cards. 7. Anemia, POA: Monitor. 8. Elevated Transaminases: Improved. 9. DM type 2. Overall prognosis is guarded to slim. Subjective: Patient was seen and examined at the bedside. RN at the bedside. Examination: General appearance: well-developed, appears stated age, not in distress, restrains HEENT: ATNC, pupils equal Neck: trachea midline Respiratory: diminish breath sounds Heart: regular, S1S2, no murmur Gastrointestinal: soft, normoactive bowel sounds, not tender Integumentary: no rash, warm and dry Neurologic: alert, confused Ext: no edema Subjective Date of service: 05/06/20 Principal diagnosis: CHF Objective - Vital Signs Vital signs: Vital Signs - 12hr 05/06/20 05/06/20 05/06/20 00:00 01:16 03:51 Temperature 97.8 F Pulse Rate 88 79 83 Pulse Rate [ Left Throughout ] Pulse Rate [ Right Throughout] Respiratory Rate Respiratory Rate [Left Throughout] Respiratory Rate [Right Throughout] Blood Pressure Blood Pressure 99/51 [Left] O2 Sat by Pulse 98 Oximetry 05/06/20 05/06/20 05/06/20 05:02 08:30 09:13 Temperature 97.8 F 97.9 F Pulse Rate 73 Pulse Rate [ 90 Left Throughout ] Pulse Rate [ 89 Right Throughout] Respiratory 19 Rate Respiratory 18 Rate [Left Throughout] Respiratory 19 Rate [Right Throughout] Blood Pressure 107/53 Blood Pressure 112/54 [Left] O2 Sat by Pulse 96 Oximetry 05/06/20 09:14 Temperature Pulse Rate Pulse Rate [ Left Throughout ] Pulse Rate [ Right Throughout] Respiratory Rate Respiratory Rate [Left Throughout] Respiratory Rate [Right Throughout] Blood Pressure Blood Pressure [Left] O2 Sat by Pulse 97 Oximetry - Lab 05/04/20 10:36 05/06/20 07:00 Most recent lab results ABG pH 7.387 pH Units (7.350-7.450) 04/29/20 11:50 ABG pCO2 31.8 mm Hg 04/29/20 11:50 ABG pO2 102.9 mm Hg (80.0-90.0) H 04/29/20 11:50 ABG HCO3 18.7 mmol/L (20.0-26.0) L 04/29/20 11:50 ABG O2 Saturation 97.8 % (95.0-99.0) 04/29/20 11:50 Calcium 8.6 mg/dL (8.4-10.2) 05/06/20 07:00 Phosphorus 4.50 mg/dL (2.5-4.5) 05/06/20 07:00 Magnesium 2.40 mg/dL (1.7-2.3) H 04/10/20 22:50 Urine Creatinine 35.3 mg/dL (0.1-20.0) H 04/11/20 Unknown Urine Sodium 92 mmol/L 04/11/20 Unknown Medications & Allergies - Medications Allergies/Adverse Reactions: Allergies Sulfa (Sulfonamide Antibiotics) Allergy (Verified 07/30/18 17:44) Rash Home Medications: Home Medications Medication Instructions Recorded Confirmed Last Taken Type Gabapentin 300 mg PO BID 09/19/16 04/21/20 09/18/16 History 300 mg Metformin HCl [metFORMIN ER 500 mg PO BIDWM 03/28/17 04/21/20 Unknown History Gastric] AtorvaSTATin 10 mg PO QHS #30 tablet 12/21/17 04/21/20 Unknown Rx Ranolazine ER [Ranexa ER] 500 mg PO BID #60 tablet 12/21/17 04/21/20 Unknown Rx Aspirin 325 mg PO QDAY #30 tablet 01/12/18 04/21/20 04/21/20 Rx Diphenoxylate/Atropine [Lomotil] 1 tab PO Q8H PRN 01/15/18 04/21/20 Unknown History Insulin Lispro [HumaLOG VIAL] See Protocol SQ ACHS 01/15/18 04/21/20 04/21/20 18:46 History Promethazine [Phenergan] 25 mg PO Q4H PRN 01/15/18 04/21/20 Unknown History Albuterol Mdi (or & Nicu Only) 2 puff IH Q4HR PRN #1 inhalation 12/21/18 04/21/20 04/21/20 18:46 Rx [ProAir HFA Inhaler] Furosemide [Lasix TAB] 20 mg PO QDAY #30 tablet 02/03/20 04/21/20 Unknown Rx Metoprolol Xl [Metoprolol 25 mg PO DAILY #60 tablet 02/03/20 04/21/20 04/21/20 18:45 Rx SUCCINATE ER TAB] levETIRAcetam [Keppra TAB] 500 mg PO BID #120 tablet 02/03/20 04/21/20 Unknown Rx levoFLOXacin [Levaquin TAB] 500 mg PO QDAY #5 tablet 02/03/20 04/21/20 Unknown Rx Active Medications: Generic Name Dose Route Start Last Admin Trade Name Freq PRN Reason Stop Dose Admin Acetaminophen 650 mg 04/11/20 01:26 04/23/20 23:13 Tylenol PO 650 mg Q6H PRN Administration Pain MILD(1-3)/Fever >100.5/MANCILLA Alprazolam 1 mg 05/04/20 18:53 Alprazolam 1 Mg Tab PO Q8H PRN Anxiety Lipase/Protease/Amylase 1 each 04/11/20 14:[address] 10,500 Unit FEEDTUBE PRN PRN For Clogged Feeding Tube Arformoterol Tartrate 15 mcg 04/20/20 20:00 05/06/20 09:13 Brovana Nebu IH 15 mcg Q12HRT PRAVIN Administration Budesonide 0.5 mg 04/20/20 20:00 05/06/20 09:13 Pulmicort IH 0.5 mg Q12HRT PRAVIN Administration Dobutamine HCl/Dextrose 500 mg in 250 mls @ 4.725 mls/hr 05/02/20 12:00 05/05/20 22:12 Dobutrex Drip 500mg/D5w 250ml IV 5 mcg/kg/min DIRECT PRAVIN 9.45 mls/hr Administration Protocol 2.5 MCG/KG/MIN Potassium Chloride 20 meq/ 1,010 mls @ 50 mls/hr 05/04/20 16:30 05/05/20 13:08 Dextrose IV 50 mls/hr DIRECT PRAVIN Administration Insulin Human Lispro 0 unit 04/16/20 16:30 05/05/20 22:12 Humalog SUB-Q Not Given ACHS [facility] Protocol Magnesium Hydroxide 30 ml 04/11/20 01:26 Milk Of Magnesia PO Q4H PRN Constipation Midodrine 10 mg 05/01/20 16:00 05/06/20 08:43 Proamatine PO Not Given TID@0800,1200,1600 [facility] Ondansetron HCl 4 mg 04/25/20 04:53 04/25/20 05:25 Zofran IV 4 mg Q8H PRN Administration Nausea And Vomiting Simple Syrup 15 ml 04/11/20 14:22 Simple Syrup FEEDTUBE PRN PRN Hypoglycemia Simple Syrup 30 ml 04/11/20 14:22 Simple Syrup FEEDTUBE PRN PRN Hypoglycemia Sodium Bicarbonate 325 mg 04/11/20 14:22 Sodium Bicarbonate FEEDTUBE PRN PRN For Clogged Feeding Tube Sodium Chloride 10 ml 04/11/20 10:00 05/06/20 08:43 Sodium Chloride Flush Syringe 10 Ml IV Not Given BID PRAVIN Sodium Chloride 10 ml 04/11/20 01:26 Sodium Chloride Flush Syringe 10 Ml IV PRN PRN LINE FLUSH
[2020-05-06] MEDS: INSULIN LISPRO 100 UNIT/ML VIAL 3 mL SUB-Q SCH ×4 (10:14→21:53)
[2020-05-06] MEDS: DOBUTamine/D5W 500 MG/250 ML 500 MG/250 ML BAG IV SCH (11:17)
[2020-05-06] MEDS: POTASSIUM CHLORIDE 20 MEQ in DEXTROSE 5% IN WATER 1,000 ML IV SCH (11:19)
[2020-05-07 07:04] LABS: Calcium 8.6 mg/dL (8.4-10.2)
[2020-05-07] MEDS: ARFORMOTEROL 15 MCG/2 ML NEBU IH SCH ×2 (08:15→19:40)
[2020-05-07] MEDS: BUDESONIDE 0.5 MG/2 ML NEBU IH SCH ×2 (08:15→19:40)
[2020-05-07] MEDS: POTASSIUM CHLORIDE 20 MEQ in DEXTROSE 5% IN WATER 1,000 ML IV SCH (09:56)
[2020-05-07] MEDS: MIDODRINE 5 MG TAB PO SCH ×3 (09:57→18:11)
[2020-05-07] MEDS: INSULIN LISPRO 100 UNIT/ML VIAL 3 mL SUB-Q SCH ×4 (09:59→21:24)
--- NOTE | 2020-05-07 09:59 | Progress Note ---
Assessment and Plan Chronic systolic heart failure LVEF 15-20% by echo 01/2020 VQ scan reports a low probability for PE. COVID 19 test was negative Paroxysmal Atrial fibrillation vs flutter metoprolol discontinued due to sinus bradycardia low dose Eliquis discontinued due to development of severe anemia normal TSH of 3.6 Chronic anemia Severe Thrombocytopenia Hypotension on midodrine Left pleural effusion s/p thoracentesis 05/04 Dehydration Resolved Hx of Ischemic cardiomyopathy noncompliant with outpatient cardiac follow up. Hx of CAD Abdominal pain CT scan of the abdomen suggestive of colitis. Renal insufficiency Recommendations: Discussed with RN. Patient appears in moderate distress. Pulse Ox 100% on RA and Heart rate 71 bpm. Primary team should have a discussion with family regarding poor prognosis and code status. RN will page RT for ABGs Subjective Date of service: 05/07/20 Principal diagnosis: CHF Interval history: Patient appears in moderate distress this morning. Patient is nonverbal. Patient is in restraints. Episode of profound sinus bradycardia on tele Objective Vital Signs Temp Pulse Pulse Pulse Pulse Resp Resp 05/07/20 08:22 97.9 F 92 H 20 05/07/20 08:15 121 H 23 05/07/20 03:06 55 L 32 H 05/06/20 23:25 101 H 24 05/06/20 22:35 74 05/06/20 22:00 96 H 05/06/20 19:16 67 32 H 05/06/20 16:00 66 05/06/20 15:59 98.1 F 22 05/06/20 13:56 104 H 22 05/06/20 11:08 05/06/20 11:06 05/06/20 10:00 104 H Resp BP BP Pulse Ox 05/07/20 08:22 90/66 95 05/07/20 08:15 99 05/07/20 03:06 100/57 92 05/06/20 23:25 90/65 95 05/06/20 22:35 20 05/06/20 22:00 05/06/20 19:16 94/65 93 05/06/20 16:00 90 05/06/20 15:59 100/58 05/06/20 13:56 96 05/06/20 11:08 89/44 05/06/20 11:06 88/49 05/06/20 10:00 - Physical Examination General: No Apparent Distress, Cachectic HEENT: Positive: PERRL Neck: Positive: trachea midline Cardiac: Positive: Reg Rate and Rhythm Lungs: Positive: Decreased Breath Sounds, Rhonchi Neuro: Positive: Weakness Abdomen: Positive: Soft Skin: Positive: Clear Extremities: Absent: edema - Labs and Meds Comprehensive Metabolic Panel 05/07/20 Range/Units 05:31 Sodium 150 H (137-145) mmol/L Potassium 4.4 (3.6-5.0) mmol/L Chloride 119.4 H (98-107) mmol/L Carbon Dioxide 16 L (22-30) mmol/L BUN 54 H (9-20) mg/dL Creatinine 2.4 H (0.8-1.3) mg/dL Glucose 79 (75-100) mg/dL Calcium 8.6 (8.4-10.2) mg/dL
--- NOTE | 2020-05-07 10:26 | Progress Note ---
Assessment and Plan 1. Acute kidney injury: Vasomotor KIRT superimposed on CKD. CT abdomen negative for hydro. Monitor renal function. Creatinine leveled off. Renal prognosis is guarded. Avoid nephrotoxic agents. Meds dosage based on GFR. 2. FEN: Hypernatremia, continue IV D5W, monitor. Hypokalemia, replete K as needed, monitor. Hyperchloremic metabolic acidosis, monitor. Monitor lytes and volume status. 3. Acute hypoxic respiratory failure: Possibly secondary to the CHF and underlying pneumonia. COVID-19 test negative. 4. Hypotension: Monitor BP. 5. Bradycardia: Followed by Cards. 6. Chronic CHF: Monitor daily weight, intake and outputs. Followed by Cards. 7. Anemia, POA: Monitor. 8. Elevated Transaminases: Improved. 9. DM type 2. Overall prognosis is slim / poor. Subjective: Patient was seen and examined at the bedside. RT was called due to resp distress. RN is aware. Examination: General appearance: well-developed, appears stated age, resp distress, restrains HEENT: ATNC, pupils equal Neck: trachea midline Respiratory: diminish breath sounds Heart: S1S2, no murmur Gastrointestinal: soft, normoactive bowel sounds, not tender Integumentary: no rash, warm and dry Neurologic: somnolent, non-verbal Ext: no edema Subjective Date of service: 05/07/20 Principal diagnosis: CHF Objective - Vital Signs Vital signs: Vital Signs - 12hr 05/06/20 05/06/20 05/07/20 22:35 23:25 03:06 Temperature Pulse Rate 101 H 55 L Pulse Rate [ Anterior Bilateral Throughout] Pulse Rate [ 74 Right Throughout] Respiratory 24 32 H Rate Respiratory Rate [Anterior Bilateral Throughout] Respiratory 20 Rate [Right Throughout] Blood Pressure 90/65 100/57 Blood Pressure [Left] O2 Sat by Pulse 95 92 Oximetry 05/07/20 05/07/20 08:15 08:22 Temperature 97.9 F Pulse Rate 92 H Pulse Rate [ 121 H Anterior Bilateral Throughout] Pulse Rate [ Right Throughout] Respiratory 20 Rate Respiratory 23 Rate [Anterior Bilateral Throughout] Respiratory Rate [Right Throughout] Blood Pressure Blood Pressure 90/66 [Left] O2 Sat by Pulse 99 95 Oximetry - Lab 05/04/20 10:36 05/07/20 05:31 Most recent lab results ABG pH 7.387 pH Units (7.350-7.450) 04/29/20 11:50 ABG pCO2 31.8 mm Hg 04/29/20 11:50 ABG pO2 102.9 mm Hg (80.0-90.0) H 04/29/20 11:50 ABG HCO3 18.7 mmol/L (20.0-26.0) L 04/29/20 11:50 ABG O2 Saturation 97.8 % (95.0-99.0) 04/29/20 11:50 Calcium 8.6 mg/dL (8.4-10.2) 05/07/20 05:31 Phosphorus 4.50 mg/dL (2.5-4.5) 05/06/20 07:00 Magnesium 2.40 mg/dL (1.7-2.3) H 04/10/20 22:50 Urine Creatinine 35.3 mg/dL (0.1-20.0) H 04/11/20 Unknown Urine Sodium 92 mmol/L 04/11/20 Unknown Medications & Allergies - Medications Allergies/Adverse Reactions: Allergies Sulfa (Sulfonamide Antibiotics) Allergy (Verified 07/30/18 17:44) Rash Home Medications: Home Medications Medication Instructions Recorded Confirmed Last Taken Type Gabapentin 300 mg PO BID 09/19/16 04/21/20 09/18/16 History 300 mg Metformin HCl [metFORMIN ER 500 mg PO BIDWM 03/28/17 04/21/20 Unknown History Gastric] AtorvaSTATin 10 mg PO QHS #30 tablet 12/21/17 04/21/20 Unknown Rx Ranolazine ER [Ranexa ER] 500 mg PO BID #60 tablet 12/21/17 04/21/20 Unknown Rx Aspirin 325 mg PO QDAY #30 tablet 01/12/18 04/21/20 04/21/20 Rx Diphenoxylate/Atropine [Lomotil] 1 tab PO Q8H PRN 01/15/18 04/21/20 Unknown History Insulin Lispro [HumaLOG VIAL] See Protocol SQ ACHS 01/15/18 04/21/20 04/21/20 18:46 History Promethazine [Phenergan] 25 mg PO Q4H PRN 01/15/18 04/21/20 Unknown History Albuterol Mdi (or & Nicu Only) 2 puff IH Q4HR PRN #1 inhalation 12/21/18 04/21/20 04/21/20 18:46 Rx [ProAir HFA Inhaler] Furosemide [Lasix TAB] 20 mg PO QDAY #30 tablet 02/03/20 04/21/20 Unknown Rx Metoprolol Xl [Metoprolol 25 mg PO DAILY #60 tablet 02/03/20 04/21/20 04/21/20 18:45 Rx SUCCINATE ER TAB] levETIRAcetam [Keppra TAB] 500 mg PO BID #120 tablet 02/03/20 04/21/20 Unknown Rx levoFLOXacin [Levaquin TAB] 500 mg PO QDAY #5 tablet 02/03/20 04/21/20 Unknown Rx Active Medications: Generic Name Dose Route Start Last Admin Trade Name Freq PRN Reason Stop Dose Admin Acetaminophen 650 mg 04/11/20 01:26 04/23/20 23:13 Tylenol PO 650 mg Q6H PRN Administration Pain MILD(1-3)/Fever >100.5/MANCILLA Alprazolam 1 mg 05/04/20 18:53 Alprazolam 1 Mg Tab PO Q8H PRN Anxiety Lipase/Protease/Amylase 1 each 04/11/20 14:[address] 10,500 Unit FEEDTUBE PRN PRN For Clogged Feeding Tube Arformoterol Tartrate 15 mcg 04/20/20 20:00 05/07/20 08:15 Brovana Nebu IH 15 mcg Q12HRT PRAVIN Administration Budesonide 0.5 mg 04/20/20 20:00 05/07/20 08:15 Pulmicort IH 0.5 mg Q12HRT PRAVIN Administration Dobutamine HCl/Dextrose 500 mg in 250 mls @ 4.725 mls/hr 05/02/20 12:00 05/06/20 11:17 Dobutrex Drip 500mg/D5w 250ml IV 2.5 mcg/kg/min DIRECT PRAVIN 4.725 mls/hr Administration Protocol 2.5 MCG/KG/MIN Potassium Chloride 20 meq/ 1,010 mls @ 50 mls/hr 05/04/20 16:30 05/07/20 09:56 Dextrose IV 50 mls/hr DIRECT PRAVIN Administration Insulin Human Lispro 0 unit 04/16/20 16:30 05/07/20 09:59 Humalog SUB-Q Not Given ACHS PRAVIN Protocol Magnesium Hydroxide 30 ml 04/11/20 01:26 Milk Of Magnesia PO Q4H PRN Constipation Midodrine 10 mg 05/01/20 16:00 05/07/20 09:57 Proamatine PO 10 mg TID@0800,1200,1600 PR[facility]IN Administration Ondansetron HCl 4 mg 04/25/20 04:53 04/25/20 05:25 Zofran IV 4 mg Q8H PRN Administration Nausea And Vomiting Simple Syrup 15 ml 04/11/20 14:22 Simple Syrup FEEDTUBE PRN PRN Hypoglycemia Simple Syrup 30 ml 04/11/20 14:22 Simple Syrup FEEDTUBE PRN PRN Hypoglycemia Sodium Bicarbonate 325 mg 04/11/20 14:22 Sodium Bicarbonate FEEDTUBE PRN PRN For Clogged Feeding Tube Sodium Chloride 10 ml 04/11/20 10:00 05/07/20 10:00 Sodium Chloride Flush Syringe 10 Ml IV 10 ml BID PRAVIN Administration Sodium Chloride 10 ml 04/11/20 01:26 Sodium Chloride Flush Syringe 10 Ml IV PRN PRN LINE FLUSH
--- NOTE | 2020-05-07 14:43 | Progress Note ---
Assessment and Plan Assessment and Plan Assessment and plan: ---Acute respiratory failure Current Visit: Yes Status: Acute Plan to address problem: Continue oxygen supplementation --Acute on chronic systolic CHF (congestive heart failure) Current Visit: Yes Status: Acute Plan to address problem: Holding Lasix due to KIRT Will monitor daily weight, inputs and outputs. Monitor renal function closely Cardiology on board --KIRT on CKD Current Visit: Yes Status: Acute Plan to address problem: Had KIRT 2/2 vasomotor nephropathy Lasix given due to worsening pulm edema but Cr bumped. Hold lasix --Colitis Current Visit: Yes Status: Acute Plan to address problem: Resolved GI recommendations appreciated --Left sided pleural effusion Current Visit: No Status: Acute Plan to address problem: Lasix held due to worsening renal function Will get US thoracentesis when IR <1.5. Pulmonology consulted. --Arrhythmias Current Visit: Yes Status: Acute Plan to address problem: Initially started on amiodarone but discontinued due to elevated LFTs Noted to have pauses on telemetry. Metoprolol discontinued-awaiting cardiology recommendations at this time. Pacer placed at bedside Transfer patient to [facility] for now Holding apixaban due to thrombocytopenia Cardiology recommendations appreciated --Diabetes mellitus type 2 in nonobese Current Visit: No Status: Acute Plan to address problem: Lantus and sliding scale insulin. --Hyperkalemia and metabolic acidosis Current Visit: Yes Status: Acute Plan to address problem: Resolved --T12 compression fracture Current Visit: No Status: Likely chronic Plan to address problem: CT abdomen showed acute appearing T12 compression fracture 04/14. MRI thoracic without contrast ordered to further evaluate. 04/15. Patient is agitated and unable to get an MRI. 04/16. Awaiting MRI without contrast thoracic. Plan to use sedatives today. Informed RN. If positive for acute fracture, patient will need to be transferred for hakeem rosurgery evaluation. 04/17. MRI thoracic and lumbar showed acute T12 compression fracture. Discus sed case with [place] [facility] building construction engineer who advised no acute intervention is necessary at this time-advised TLSO brace when patient is sitting or ambulatory. He will need follow-up with Dr. Dalton Jack, Dr. Alan Henson, Dr. Tyson Clark [contact number [phone]] after discharge. ---Elevated LFTs Current Visit: Yes Status: Acute Plan to address problem: Improving US abdomen shows no acute pathology ---Infrarenal aortic aneurysm Current Visit: No Status: Acute Plan to address problem: 3.8 cm in diameter Needs to follow-up with vascular surgery at discharge for monitoring -Shock Current Visit: No Status: Acute Plan to address problem: Improved VQ scan to rule out PE - negative -- Hypernatremia Current Visit: No Status: Acute Plan to address problem: Due to poor intake. NG tube placement ordered. Patient continues to refuse NG tube placement. Needs PEG placement. GI consulted Start water via NG tube 400cc q8 hours Trend sodium--- today sodium is 150 -- DVT prophylaxis Current Visit: No Status: Acute Plan to address problem: Hold heparin for now --Patient for home hospice Current Visit: No Status: Acute Subjective Date of service: 05/07/20 Principal diagnosis: CHF exacerbation, KIRT Interval history: Disposition-home with hospice as per patient son when stable 04/11. Patient seen and examined at bedside this morning. Patient is on BiPAP. Patient is eager to go home. Otherwise denies any chest pain or palpitations. Patient CT showed possible compression fracture of T12, it is unknown if this is new. We will get MRI without contrast of the thoracic and lumbar to further evaluate. If patient actually has an acute compression fracture, he will need to have a neurosurgery evaluation so will need to be transferred to another facility for this. Otherwise, patient continue to monitor patient's respiratory status while in the IMCU. Patient reportedly failed a swallow evaluation and will need to have an NG tube placement. Tried to call son on number provided in the chart and left a message. Awaiting callback. Labs reviewed-patient has elevated inflammatory [id number], LDH. COVID-19 test has been ordered. Started patient on steroids. Ordered stat BMP, ABG, D-dimer, proBNP, ferritin, LDH. 04/12. COVID -19 test is negative. His breathing has improved so was placed on nasal cannula. Cardiology adjusted meds today. He failed swallow evaluation yesterday. He requests for food. Will reattempt swallow evaluation. Speech therapy consult. 04/13. Overnight, he developed VT and was started on amiodarone. HR better this AM. Cardiology will review medications. Patient seen and examined at bedside this AM. He requests for food. He failed a repeat speech evaluation and will ne ed barium swallow. May need PEG placement if he fails. NG tube in place. Vitals reviewed 04/14. Heart rate improved. Remains n.p.o. with NG tube feeds. Video swallow evaluation shows mild abnormal study. Speech therapist to see patient. Patient has not been able to have an MRI of the back due to agitation. He had a CT during the admission that showed possible compression fracture of T12 but this has not been fully evaluated due to patient's ongoing conditions. Labs reviewed-renal function is worse. Discontinue Lasix. 04/15. Has been started on a diet and is tolerating. He pulled out his NG tube last night. Okay to leave NG tube for now. Plan to get an MRI performed today with sedative to evaluate T12 fracture. Patient denies any back pain. Renal function slightly improved today after Lasix was discontinued. Continue IV hydration. Nephrology recommendations appreciated 04/16. He feels better today. MRI could not be done yesterday. Hopefully patient can have an MRI done today. Creatinine 3.1 today. Patient will need placement but will need to have evaluation of possible T12 fracture prior to discharge 04/17. MRI thoracic and lumbar showed acute T12 compression fracture. Discussed case with [place] [facility] building construction engineer who advised no acute intervention is necessary at this time-advised TLSO brace when patient is sitting or ambulatory. He will need follow-up with Dr. Dalton Jack, Dr. Alan Henson, Dr. Tyson Clark [contact number [phone]] after discharge. 04/18. Await Nephrology recs for d/c plans 75-year-old male with known history of coronary artery disease, diabetes mellitus and CHF with ejection fraction of 15% on echo done in January 2020, Crohn's disease, anemia and osteoarthritis presenting to the emergency room today with shortness of breath and abdominal pain. Symptoms were said to have started today and patient was brought in by EMS. In route to the hospital EMS indicates that patient was in a nonsustained V. tach. Most of the history was given by the ER physician as patient is in some respiratory distress. He was placed on BiPAP upon arrival in the emergency room. Work-up in the emergency room today, chest x-ray reveals: Patchy bibasilar airspace opacities, may reflect pulmonary edema or pneumonia. Stable small left pleural effusion and/or pleural scarring. CT of the abdomen and pelvis reveals: 1. Diffuse wall thickening and fat stranding involving the descending and sigmoid colon suggestive of colitis. 2. Stable 3.4 cm infrarenal abdominal aortic aneurysm. 3. Small bilateral pleural effusions. 4. Diffuse bone demineralization with an acute appearing superior endplate compression fracture of T12. Patient is being admitted for acute on chronic CHF, colitis and acute kidney injury. In view of possible underlying pneumonia patient started on empiric IV antibiotics . Cardiology consulted by the ER physician regarding the Vtach and patient was started on P.O. amiodarone. 04/19/2020. Patient reportedly with choking/coughing with swallowing. We will change to n.p.o. status right now. Speech reevaluation. Check chest x-ray to rule out aspiration pneumonia. Await nephrology recommendations for discharge. Creatinine slowly improving. CT of abdomen negative for hydronephrosis. BUN increasing. Therefore, we will check Hemoccult of stool to rule out GI bleed. Hemoglobin has been stable. 04/20/2020. Repeat chest x-ray reveals worsening bibasilar opacities. Pulmonary consulted. Doppler of left upper extremity for swelling. PT evaluation recommends subacute rehab 04/21/2020. Await pulmonary consultation for worsening bibasilar opacities. Doppler of left upper extremity pending. PT evaluation recommends subacute rehab. Creatinine has improved to near baseline of 1.8. Nephrology following 04/22/2020. Pulmonary sees no need for antibiotics or further evaluation of bibasilar opacities with CT scan. Continue current COPD treatment. Beta blockers increase for A. fib per cardiology. Await Doppler left upper extremity. PT evaluation recommends subacute rehab but case management reports patient's son Haseeb [phone]. Haseeb wants patient to return home with [facility]. 04/23/2020. Continue beta-blockers for atrial fibrillation per cardiology. Await left upper extremity Doppler ultrasound for left upper extremity swelling. PT evaluation recommends subacute rehab but case management reports patient's son Haseeb [phone]. Haseeb wants patient to return home with [facility]. Creatinine appears to be improved to baseline. Anticipate discharge in the next 1 to 2 days. 04/24/2020. Continue beta-blockers for atrial fibrillation per cardiology. Await left upper extremity Doppler ultrasound for left upper extremity swelling. Haseeb (son [phone]) wants patient to return home with [facility]. Creatinine appears to be improved to baseline. Patient now with hypernatremia. ?Tenuous IV fluid hydration--defer to nephrology. 04/25. Blood pressure low this morning but subsequently improved with slow bolus. Sodium today is 150. Patient is dehydrated and is asking for water to drink. I have discussed with RN to ensure patient gets enough water to help with dehydration. His heart rate is controlled and cardiology has adjusted the medication today due to slight hypotension.-Metoprolol now 25 every 8 hours. He is alert and oriented x3 this morning and is able to make needs known. Check BMP every 8 hours for now. Nephrology following 04/26. Transferred to the ICU due to persisted hypotension. WBC trending up. Started on antibiotics. Aetiology of shock could be sepsis. Other differentials - cardiogenic vs obstructive (has been on eliquis 2.5mg BID so not likely. His ddimer is elevated and he cannot get contrast - will get VQ scan. Critical care to see. Blood culture ordered. Repeat labs in AM 04/27. On levophed. Leukocytosis better. Check procalcitonin. On antibiotics. Rest of labs shows anemia and thrombocytopenia. Will dc eliquis. Lasix given but Cr bump noted. Holding lasix for now. Repeat chest xray to evaluate infiltrate and effusion 04/28. BP stable so he was transferred to telemetry. He failed swallow evaluation. Place an NG tube and start free water via NG tube. DC D5w. He will need GI evaluation for PEG tube placement. Lasix was given for worsening infiltrate and effusion but Cr bumped. Awaiting repeat chest xray to evaluate for infiltrate. Ordered INR and BNP. May need US thoracentesis for left pleural effusion. Will get pulm consult. Labs reviewed- still has hypernatremia - nephrology following. heme consult for thrombocytopenia. GI consulted for PEG tube placement 04/29. NG tube not yet placed. Sodium 155. Needs to be started on water via NG tube. No IVF as he has systolic CHF. Consultants notes reviewed. 04/30. Patient continues to refuse NG tube. Patient noted to have bradycardia this a.m. down to 30s-40s. Also has pauses up to 2 seconds this AM. Metoprolol has been discontinued. Patient needed 1 dose of atropine with slight improvement. Pacer placed at bedside. Patient was transferred to the [facility] for close monitoring. Cardiology has been paged and awaiting callback. Discussed with RN. Plan for PEG tube placement as per GI. Maintain n.p.o. for now 05/01. Now in the ICU on pressors due to hypotension. GI was consulted as patient has failed multiple swallow evaluations during this admission and GI plans to place a PEG tube when cardiac status is stable. Cardiology to evaluate today. Heart rate remains in the 40s to 50s. 05/02/2020; patient is on low-dose of Levophed. Cardiology is following for bradycardia, hypotension and abnormal rhythm, he has ejection fraction of 15%. GI is considering to do PEG tube placement once stable cardiac renee. Patient is on hospice care at home but whenever he becomes sick family revoked hospice and bring to the hospital. Once stabilized will take him and keep him on hospice. Management plan discussed with cardiology PA, it security analyst and case management. 05/03/2020; patient is off Levophed. Cardiology is following for bradycardia, hypotension and abnormal rhythm, he has ejection fraction of 15%. GI is considering to do PEG tube placement once stable cardiac renee. Patient is on hospice care at home but whenever he becomes sick family revoked hospice and bring to the hospital. Once stabilized will take him and keep him on hospice. Transfer to telemetry floor. 05/04/2020; bradycardia and hypotension resolved. Cardiology is following for CHF. Patient is on hospice care at home but whenever he becomes sick family revoked hospice and bring to the hospital. Once stabilized will take him and keep him on hospice. 05/05/2020; patient was agitated yesterday and was on restraints. Patient has hypernatremia. Will encourage free water intake. Nephrology and cardiology is following the patient. 05/06/2020; patient was agitated yesterday and was on restraints. Patient has hypernatremia. Will encourage free water intake. Nephrology and cardiology is following the patient. Patient is on home hospice and will be discharged back home with home hospice once stable. 05/07/2020 Patient to be discharged to home hospice if sodium normalizes History Interval history: Patient was seen and evaluated this morning He has shortness of breath and on 3 L of oxygen Hypotension and bradycardia resolved Patient agitated and on restraints Objective - Constitutional Vitals: Vital Signs - 12hr 05/07/20 05/07/20 05/07/20 03:06 08:15 08:22 Temperature 97.9 F Pulse Rate 55 L 92 H Pulse Rate [ 121 H Anterior Bilateral Throughout] Respiratory 32 H 20 Rate Respiratory 23 Rate [Anterior Bilateral Throughout] Blood Pressure 100/57 Blood Pressure 90/66 [Left] O2 Sat by Pulse 92 99 95 Oximetry General appearance: Present: mild distress, well-nourished - EENT Eyes: PERRL, EOM intact ENT: hearing intact, clear oral mucosa Ears: bilateral: normal - Neck Neck: supple, normal ROM - Respiratory Respiratory effort: normal Respiratory: bilateral: CTA - Breasts Breasts: normal - Cardiovascular Heart rate: 78 Rhythm: regular Heart Sounds: Present: S1 & S2. Absent: gallop, rub Extremities: pulses intact, No edema, normal color, Full ROM - Gastrointestinal General gastrointestinal: Present: soft, non-tender, non-distended, normal bowel sounds - Genitourinary Male genitourinary: normal - Integumentary Integumentary: clear, warm, dry - Musculoskeletal Musculoskeletal: 1, strength equal bilaterally - Neurologic Neurologic: moves all extremities - Psychiatric Psychiatric: memory intact, appropriate mood/affect, intact judgment & insight - Allied health notes Allied health notes reviewed: nursing, case management - Labs CBC & Chem 7: 05/04/20 10:36 05/07/20 05:31 Labs: Abnormal lab results 05/06/20 05/06/20 05/07/20 Range/Units 16:05 21:08 05:31 Sodium 150 H (137-145) mmol/L Chloride 119.4 H (98-107) mmol/L Carbon Dioxide 16 L (22-30) mmol/L BUN 54 H (9-20) mg/dL Creatinine 2.4 H (0.8-1.3) mg/dL POC Glucose 144 H 164 H (70-105) mg/dL HEART Score - HEART Score Troponin: Troponin T 0.081 ng/mL (0.00-0.029) H 04/10/20 20:04
[2020-05-07] MEDS: DOBUTamine/D5W 500 MG/250 ML 500 MG/250 ML BAG IV SCH (18:14)
[2020-05-07 21:10] LABS: ABG Base Excess -8.7 mmol/L (-2.0-3.0); ABG HCO3 15.7 mmol/L (20.0-26.0); ABG Methemoglobin 0.6 % (0.0-1.5); ABG Oxygen Saturation 97.8 % (95.0-99.0); ABG PCO2 28.3 mm Hg; ABG PH 7.361 pH Units (7.350-7.450); ABG PO2 104.9 mm Hg (80.0-90.0)
[2020-05-07] MEDS ORDERED: DOBUTamine/D5W 500 MG/250 ML 500 MG/250 ML BAG IV SCH (22:00)
[2020-05-08] MEDS ORDERED: EPINEPHrine 1 MG/10 ML SYRINGE ONE (00:24)
[2020-05-08 06:01] LABS: Calcium 8.5 mg/dL (8.4-10.2)
[2020-05-08] MEDS: POTASSIUM CHLORIDE 20 MEQ in DEXTROSE 5% IN WATER 1,000 ML IV SCH (07:02)
[2020-05-08] MEDS: INSULIN LISPRO 100 UNIT/ML VIAL 3 mL SUB-Q SCH ×4 (08:08→22:08)
--- NOTE | 2020-05-08 08:42 | Progress Note ---
Assessment and Plan 1. Acute kidney injury: Vasomotor KIRT superimposed on CKD. CT abdomen negative for hydro. Monitor renal function. Creatinine level 2.6 from 2.4. Renal prognosis is guarded. Avoid nephrotoxic agents. Meds dosage based on GFR. 2. FEN: Hypernatremia, continue IV D5W, monitor. Hypokalemia, K level is better, monitor. Hyperchloremic metabolic acidosis, monitor. Monitor lytes and volume status. 3. Acute hypoxic respiratory failure: Possibly secondary to the CHF and underlying pneumonia. COVID-19 test negative. 4. Hypotension: Monitor BP. 5. Bradycardia: Followed by Cards. 6. Chronic CHF: Monitor daily weight, intake and outputs. Followed by Cards. 7. Anemia, POA: Monitor. 8. Elevated Transaminases: Improved. 9. DM type 2. Overall prognosis is slim / poor. Subjective: Patient was seen and examined at the bedside. Examination: General appearance: well-developed, appears stated age, resp distress noted, restrains HEENT: ATNC, pupils equal Neck: trachea midline Respiratory: diminish breath sounds Heart: S1S2, no murmur Gastrointestinal: soft, normoactive bowel sounds, not tender Integumentary: no rash, warm and dry Neurologic: lethargic, non-verbal Ext: no edema Subjective Date of service: 05/08/20 Principal diagnosis: CHF exacerbation, KIRT Objective - Vital Signs Vital signs: Vital Signs - 12hr 05/07/20 05/07/20 05/07/20 21:05 21:16 22:55 Temperature 98.7 F Pulse Rate 47 L Respiratory 35 H 26 H Rate Blood Pressure 100/65 87/52 O2 Sat by Pulse 99 100 Oximetry 05/07/20 05/07/20 05/08/20 23:00 23:14 01:12 Temperature Pulse Rate 118 H Respiratory 30 H Rate Blood Pressure 87/57 O2 Sat by Pulse 98 98 Oximetry 05/08/20 05/08/20 05/08/20 03:10 03:14 07:31 Temperature 97.0 F L 98.9 F Pulse Rate 56 L 60 59 L Respiratory 32 H 30 H 20 Rate Blood Pressure 90/52 81/33 O2 Sat by Pulse 98 93 97 Oximetry - Lab 05/04/20 10:36 05/08/20 04:59 Most recent lab results ABG pH 7.361 pH Units (7.350-7.450) 05/07/20 21:00 ABG pCO2 28.3 mm Hg 05/07/20 21:00 ABG pO2 104.9 mm Hg (80.0-90.0) H 05/07/20 21:00 ABG HCO3 15.7 mmol/L (20.0-26.0) L 05/07/20 21:00 ABG O2 Saturation 97.8 % (95.0-99.0) 05/07/20 21:00 Calcium 8.5 mg/dL (8.4-10.2) 05/08/20 04:59 Phosphorus 4.50 mg/dL (2.5-4.5) 05/06/20 07:00 Magnesium 2.40 mg/dL (1.7-2.3) H 04/10/20 22:50 Urine Creatinine 35.3 mg/dL (0.1-20.0) H 04/11/20 Unknown Urine Sodium 92 mmol/L 04/11/20 Unknown Medications & Allergies - Medications Allergies/Adverse Reactions: Allergies Sulfa (Sulfonamide Antibiotics) Allergy (Verified 07/30/18 17:44) Rash Home Medications: Home Medications Medication Instructions Recorded Confirmed Last Taken Type Gabapentin 300 mg PO BID 09/19/16 04/21/20 09/18/16 History 300 mg Metformin HCl [metFORMIN ER 500 mg PO BIDWM 03/28/17 04/21/20 Unknown History Gastric] AtorvaSTATin 10 mg PO QHS #30 tablet 12/21/17 04/21/20 Unknown Rx Ranolazine ER [Ranexa ER] 500 mg PO BID #60 tablet 12/21/17 04/21/20 Unknown Rx Aspirin 325 mg PO QDAY #30 tablet 01/12/18 04/21/20 04/21/20 Rx Diphenoxylate/Atropine [Lomotil] 1 tab PO Q8H PRN 01/15/18 04/21/20 Unknown History Insulin Lispro [HumaLOG VIAL] See Protocol SQ ACHS 01/15/18 04/21/20 04/21/20 18:46 History Promethazine [Phenergan] 25 mg PO Q4H PRN 01/15/18 04/21/20 Unknown History Albuterol Mdi (or & Nicu Only) 2 puff IH Q4HR PRN #1 inhalation 12/21/18 04/21/20 04/21/20 18:46 Rx [ProAir HFA Inhaler] Furosemide [Lasix TAB] 20 mg PO QDAY #30 tablet 02/03/20 04/21/20 Unknown Rx Metoprolol Xl [Metoprolol 25 mg PO DAILY #60 tablet 02/03/20 04/21/20 04/21/20 18:45 Rx SUCCINATE ER TAB] levETIRAcetam [Keppra TAB] 500 mg PO BID #120 tablet 02/03/20 04/21/20 Unknown Rx levoFLOXacin [Levaquin TAB] 500 mg PO QDAY #5 tablet 02/03/20 04/21/20 Unknown Rx Active Medications: Generic Name Dose Route Start Last Admin Trade Name Freq PRN Reason Stop Dose Admin Acetaminophen 650 mg 04/11/20 01:26 04/23/20 23:13 Tylenol PO 650 mg Q6H PRN Administration Pain MILD(1-3)/Fever >100.5/MANCILLA Alprazolam 1 mg 05/04/20 18:53 Alprazolam 1 Mg Tab PO Q8H PRN Anxiety Lipase/Protease/Amylase 1 each 04/11/20 14:[address] 10,500 Unit FEEDTUBE PRN PRN For Clogged Feeding Tube Arformoterol Tartrate 15 mcg 04/20/20 20:00 05/07/20 19:40 Brovana Nebu IH 15 mcg Q12HRT PRAVIN Administration Budesonide 0.5 mg 04/20/20 20:00 05/07/20 19:40 Pulmicort IH 0.5 mg Q12HRT PRAVIN Administration Potassium Chloride 20 meq/ 1,010 mls @ 75 mls/hr 05/04/20 16:30 05/08/20 07:02 Dextrose IV 50 mls/hr DIRECT PRAVIN Administration Dobutamine HCl/Dextrose 500 mg in 250 mls @ 9.36 mls/hr 05/07/20 22:00 05/07/20 20:30 Dobutrex Drip 500mg/D5w 250ml IV 5 mcg/kg/min DIRECT PRAVIN 9.36 mls/hr Administration Protocol 5 MCG/KG/MIN Insulin Human Lispro 0 unit 04/16/20 16:30 05/08/20 08:08 Humalog SUB-Q Not Given ACHS PRAVIN Protocol Magnesium Hydroxide 30 ml 04/11/20 01:26 Milk Of Magnesia PO Q4H PRN Constipation Midodrine 10 mg 05/01/20 16:00 05/07/20 18:11 Proamatine PO 10 mg TID@0800,1200,1600 PRAVIN Administration Ondansetron HCl 4 mg 04/25/20 04:53 04/25/20 05:25 Zofran IV 4 mg Q8H PRN Administration Nausea And Vomiting Simple Syrup 15 ml 04/11/20 14:22 Simple Syrup FEEDTUBE PRN PRN Hypoglycemia Simple Syrup 30 ml 04/11/20 14:22 Simple Syrup FEEDTUBE PRN PRN Hypoglycemia Sodium Bicarbonate 325 mg 04/11/20 14:22 Sodium Bicarbonate FEEDTUBE PRN PRN For Clogged Feeding Tube Sodium Chloride 10 ml 04/11/20 10:00 05/07/20 21:24 Sodium Chloride Flush Syringe 10 Ml IV 10 ml BID PRAVIN Administration Sodium Chloride 10 ml 04/11/20 01:26 Sodium Chloride Flush Syringe 10 Ml IV PRN PRN LINE FLUSH
--- NOTE | 2020-05-08 09:43 | Progress Note ---
Assessment and Plan Chronic systolic heart failure LVEF 15-20% by echo 01/2020 VQ scan reports a low probability for PE. COVID 19 test was negative Paroxysmal Atrial fibrillation vs flutter metoprolol discontinued due to sinus bradycardia low dose Eliquis discontinued due to development of severe anemia normal TSH of 3.6 Chronic anemia Severe Thrombocytopenia Hypotension on midodrine Left pleural effusion s/p thoracentesis 05/04 Dehydration Hx of Ischemic cardiomyopathy noncompliant with outpatient cardiac follow up. Hx of CAD Abdominal pain CT scan of the abdomen suggestive of colitis. Renal insufficiency Subjective Date of service: 05/08/20 Principal diagnosis: CHF exacerbation, KIRT Interval history: Patient is on Bipap therapy and has bilateral wrist restraints. IV dobutrex continues. Objective Vital Signs Temp Pulse Pulse Pulse Resp Resp BP 05/08/20 07:31 98.9 F 59 L 20 81/33 05/08/20 03:14 97.0 F L 60 30 H 90/52 05/08/20 03:10 56 L 32 H 05/08/20 01:12 87/57 05/07/20 23:14 118 H 30 H 05/07/20 23:00 05/07/20 22:55 98.7 F 26 H 87/52 05/07/20 21:16 47 L 35 H 100/65 05/07/20 21:05 05/07/20 20:40 56 L 36 H 05/07/20 20:25 62 38 H 05/07/20 20:02 93 H 05/07/20 20:00 97.4 F L 67 20 05/07/20 19:44 05/07/20 19:42 54 L 20 05/07/20 15:36 97.9 F 93 H 14 112/65 05/07/20 10:00 64 22 BP Pulse Ox 05/08/20 07:31 97 05/08/20 03:14 93 05/08/20 03:10 98 05/08/20 01:12 05/07/20 23:14 98 05/07/20 23:00 98 05/07/20 22:55 05/07/20 21:16 100 05/07/20 21:05 99 05/07/20 20:40 93/61 96 05/07/20 20:25 87/51 98 05/07/20 20:02 05/07/20 20:00 105/72 98 05/07/20 19:44 96 05/07/20 19:42 05/07/20 15:36 100 05/07/20 10:00 100 - Physical Examination General: No Apparent Distress, Cachectic HEENT: Positive: PERRL Neck: Positive: trachea midline Neuro: Positive: Weakness Abdomen: Positive: Soft Skin: Positive: Clear Extremities: Absent: edema - Labs and Meds Comprehensive Metabolic Panel 05/08/20 Range/Units 04:59 Sodium 147 H (137-145) mmol/L Potassium 4.9 (3.6-5.0) mmol/L Chloride 116.3 H (98-107) mmol/L Carbon Dioxide 15 L (22-30) mmol/L BUN 60 H (9-20) mg/dL Creatinine 2.6 H (0.8-1.3) mg/dL Glucose 164 H (75-100) mg/dL Calcium 8.5 (8.4-10.2) mg/dL
[2020-05-08] MEDS: ARFORMOTEROL 15 MCG/2 ML NEBU IH SCH ×2 (10:25→20:45)
[2020-05-08] MEDS: BUDESONIDE 0.5 MG/2 ML NEBU IH SCH ×2 (10:25→20:44)
--- NOTE | 2020-05-08 10:39 | Progress Note ---
Assessment and Plan Assessment and plan: ---Acute respiratory failure Current Visit: Yes Status: Acute Plan to address problem: Continue oxygen supplementation --Acute on chronic systolic CHF (congestive heart failure) Current Visit: Yes Status: Acute Plan to address problem: Holding Lasix due to KIRT Will monitor daily weight, inputs and outputs. Monitor renal function closely Cardiology on board --KIRT on CKD Current Visit: Yes Status: Acute Plan to address problem: Had KIRT 2/2 vasomotor nephropathy Lasix given due to worsening pulm edema but Cr bumped. Hold lasix --Colitis Current Visit: Yes Status: Acute Plan to address problem: Resolved GI recommendations appreciated --Left sided pleural effusion Current Visit: No Status: Acute Plan to address problem: Lasix held due to worsening renal function Will get US thoracentesis when IR <1.5. Pulmonology consulted. --Arrhythmias Current Visit: Yes Status: Acute Plan to address problem: Initially started on amiodarone but discontinued due to elevated LFTs Noted to have pauses on telemetry. Metoprolol discontinued-awaiting cardiology recommendations at this time. Pacer placed at bedside Transfer patient to [facility] for now Holding apixaban due to thrombocytopenia Cardiology recommendations appreciated --Diabetes mellitus type 2 in nonobese Current Visit: No Status: Acute Plan to address problem: Lantus and sliding scale insulin. --Hyperkalemia and metabolic acidosis Current Visit: Yes Status: Acute Plan to address problem: Resolved --T12 compression fracture Current Visit: No Status: Likely chronic Plan to address problem: CT abdomen showed acute appearing T12 compression fracture 04/14. MRI thoracic without contrast ordered to further evaluate. 04/15. Patient is agitated and unable to get an MRI. 04/16. Awaiting MRI without contrast thoracic. Plan to use sedatives today. Informed RN. If positive for acute fracture, patient will need to be transferred for neurosurgery evaluation. 04/17. MRI thoracic and lumbar showed acute T12 compression fracture. Discussed case with [place] neurosurgery research consultant who advised no acute intervention is necessary at this time-advised TLSO brace when patient is sitting or ambulatory. He will need follow-up with Dr. Dalton Jack, Dr. Alan Henson, Dr. Tyson Clark [contact number [phone]] after discharge. ---Elevated LFTs Current Visit: Yes Status: Acute Plan to address problem: Improving US abdomen shows no acute pathology ---Infrarenal aortic aneurysm Current Visit: No Status: Acute Plan to address problem: 3.8 cm in diameter Needs to follow-up with vascular surgery at discharge for monitoring -Shock Current Visit: No Status: Acute Plan to address problem: Improved VQ scan to rule out PE - negative -- Hypernatremia Current Visit: No Status: Acute Plan to address problem: Due to poor intake. NG tube placement ordered. Patient continues to refuse NG tube placement. Needs PEG placement. GI consulted Start water via NG tube 400cc q8 hours Trend sodium--- today sodium is 150 -- DVT prophylaxis Current Visit: No Status: Acute Plan to address problem: Hold heparin for now --Patient for home hospice Current Visit: No Status: Acute Subjective Date of service: 05/07/20 Principal diagnosis: CHF exacerbation, KIRT Interval history: Disposition-home with hospice as per patient son when stable 04/11. Patient seen and examined at bedside this morning. Patient is on BiPAP. Patient is eager to go home. Otherwise denies any chest pain or palpitations. Patient CT showed possible compression fracture of T12, it is unknown if this is new. We will get MRI without contrast of the thoracic and lumbar to further evaluate. If patient actually has an acute compression fracture, he will need to have a neurosurgery evaluation so will need to be transferred to another facility for this. Otherwise, patient continue to monitor patient's respiratory status while in the IMCU. Patient reportedly failed a swallow evaluation and will need to have an NG tube placement. Tried to call son on number provided in the chart and left a message. Awaiting callback. Labs reviewed-patient has elevated inflammatory [id number], LDH. COVID-19 test has been ordered. Started patient on steroids. Ordered stat BMP, ABG, D-dimer, proBNP, ferritin, LDH. 04/12. COVID -19 test is negative. His breathing has improved so was placed on nasal cannula. Cardiology adjusted meds today. He failed swallow evaluation yesterday. He requests for food. Will reattempt swallow evaluation. Speech therapy consult. 04/13. Overnight, he developed VT and was started on amiodarone. HR better this AM. Cardiology will review medications. Patient seen and examined at bedside this AM. He requests for food. He failed a repeat speech evaluation and will need barium swallow. May need PEG placement if he fails. NG tube in place. Vitals reviewed 04/14. Heart rate improved. Remains n.p.o. with NG tube feeds. Video swallow evaluation shows mild abnormal study. Speech therapist to see patient. Patient has not been able to have an MRI of the back due to agitation. He had a CT during the admission that showed possible compression fracture of T12 but this has not been fully evaluated due to patient's ongoing conditions. Labs reviewed-renal function is worse. Discontinue Lasix. 04/15. Has been started on a diet and is tolerating. He pulled out his NG tube last night. Okay to leave NG tube for now. Plan to get an MRI performed today with sedative to evaluate T12 fracture. Patient denies any back pain. Renal function slightly improved today after Lasix was discontinued. Continue IV hydration. Nephrology recommendations appreciated 04/16. He feels better today. MRI could not be done yesterday. Hopefully patient can have an MRI done today. Creatinine 3.1 today. Patient will need placement but will need to have evaluation of possible T12 fracture prior to discharge 04/17. MRI thoracic and lumbar showed acute T12 compression fracture. Discussed case with [place] neurosurgery research consultant who advised no acute intervention is necessary at this time-advised TLSO brace when patient is sitting or ambulatory. He will need follow-up with Dr. Dalton Jack, Dr. Alan Henson, Dr. Tyson Clark [contact number [phone]] after discharge. 04/18. Await Nephrology recs for d/c plans 75-year-old male with known history of coronary artery disease, diabetes mellitus and CHF with ejection fraction of 15% on echo done in January 2020, Crohn's disease, anemia and osteoarthritis presenting to the emergency room today with shortness of breath and abdominal pain. Symptoms were said to have started today and patient was brought in by EMS. In route to the hospital EMS indicates that patient was in a nonsustained V. tach. Most of the history was given by the ER physician as patient is in some respiratory distress. He was placed on BiPAP upon arrival in the emergency room. Work-up in the emergency room today, chest x-ray reveals: Patchy bibasilar airspace opacities, may reflect pulmonary edema or pneumonia. Stable small left pleural effusion and/or pleural scarring. CT of the abdomen and pelvis reveals: 1. Diffuse wall thickening and fat stranding involving the descending and sigmoid colon suggestive of colitis. 2. Stable 3.4 cm infrarenal abdominal aortic aneurysm. 3. Small bilateral pleural effusions. 4. Diffuse bone demineralization with an acute appearing superior endplate compression fracture of T12. Patient is being admitted for acute on chronic CHF, colitis and acute kidney injury. In view of possible underlying pneumonia patient started on empiric IV antibiotics . Cardiology consulted by the ER physician regarding the Vtach and patient was started on P.O. amiodarone. 04/19/2020. Patient reportedly with choking/coughing with swallowing. We will change to n.p.o. status right now. Speech reevaluation. Check chest x-ray to rule out aspiration pneumonia. Await nephrology recommendations for discharge. Creatinine slowly improving. CT of abdomen negative for hydronephrosis. BUN increasing. Therefore, we will check Hemoccult of stool to rule out GI bleed. Hemoglobin has been stable. 04/20/2020. Repeat chest x-ray reveals worsening bibasilar opacities. Pulmonary consulted. Doppler of left upper extremity for swelling. PT ebony blunt recommends subacute rehab 04/21/2020. Await pulmonary consultation for worsening bibasilar opacities. Doppler of left upper extremity pending. PT evaluation recommends subacute rehab. Creatinine has improved to near baseline of 1.8. Nephrology following 04/22/2020. Pulmonary sees no need for antibiotics or further evaluation of bibasilar opacities with CT scan. Continue current COPD treatment. Beta blockers increase for A. fib per cardiology. Await Doppler left upper extremity . PT evaluation recommends subacute rehab but case management reports patient's son Haseeb [phone]. Haseeb wants patient to return home with [facility]. 04/23/2020. Continue beta-blockers for atrial fibrillation per cardiology. Await left upper extremity Doppler ultrasound for left upper extremity swelling. PT evaluation recommends subacute rehab but case management reports patient's son Haseeb [phone]. Haseeb wants patient to return home with [facility]. Creatinine appears to be improved to baseline. Anticipate discharge in the next 1 to 2 days. 04/24/2020. Continue beta-blockers for atrial fibrillation per cardiology. Await left upper extremity Doppler ultrasound for left upper extremity swelling. Haseeb (son [phone]) wants patient to return home with [facility]. Creatinine appears to be improved to baseline. Patient now with hypernatremia. ?Tenuous IV fluid hydration--defer to nephrology. 04/25. Blood pressure low this morning but subsequently improved with slow bolus. Sodium today is 150. Patient is dehydrated and is asking for water to drink. I have discussed with RN to ensure patient gets enough water to help with dehydration. His heart rate is controlled and cardiology has adjusted the medication today due to slight hypotension.-Metoprolol now 25 every 8 hours. He is alert and oriented x3 this morning and is able to make needs known. Check BMP every 8 hours for now. Nephrology following 04/26. Transferred to the ICU due to persisted hypotension. WBC trending up. Started on antibiotics. Aetiology of shock could be sepsis. Other differentials - cardiogenic vs obstructive (has been on eliquis 2.5mg BID so not likely. His ddimer is elevated and he cannot get contrast - will get VQ scan. Critical care to see. Blood culture ordered. Repeat labs in AM 04/27. On levophed. Leukocytosis better. Check procalcitonin. On antibiotics. Rest of labs shows anemia and thrombocytopenia. Will dc eliquis. Lasix given but Cr bump noted. Holding lasix for now. Repeat chest xray to evaluate infiltrate and effusion 04/28. BP stable so he was transferred to telemetry. He failed swallow evaluation. Place an NG tube and start free water via NG tube. DC D5w. He will need GI evaluation for PEG tube placement. Lasix was given for worsening infiltrate and effusion but Cr bumped. Awaiting repeat chest xray to evaluate for infiltrate. Ordered INR and BNP. May need US thoracentesis for left pleural effusion. Will get pulm consult. Labs reviewed- still has hypernatremia - nephrology following. heme consult for thrombocytopenia. GI consulted for PEG tube placement 04/29. NG tube not yet placed. Sodium 155. Needs to be started on water via NG tube. No IVF as he has systolic CHF. Consultants notes reviewed. 04/30. Patient continues to refuse NG tube. Patient noted to have bradycardia this a.m. down to 30s-40s. Also has pauses up to 2 seconds this AM. Metoprolol has been discontinued. Patient needed 1 dose of atropine with slight improvement. Pacer placed at bedside. Patient was transferred to the [facility] for close monitoring. Cardiology has been paged and awaiting callback. Discussed with RN. Plan for PEG tube placement as per GI. Maintain n.p.o. for now 05/01. Now in the ICU on pressors due to hypotension. GI was consulted as patient has failed multiple swallow evaluations during this admission and GI plans to place a PEG tube when cardiac status is stable. Cardiology to evaluate today. Heart rate remains in the 40s to 50s. 05/02/2020; patient is on low-dose of Levophed. Cardiology is following for bradycardia, hypotension and abnormal rhythm, he has ejection fraction of 15%. GI is considering to do PEG tube placement once stable cardiac renee. Patient is on hospice care at home but whenever he becomes sick family revoked hospice and bring to the hospital. Once stabilized will take him and keep him on hospice. Management plan discussed with cardiology PA, adult basic education manager and case management. 05/03/2020; patient is off Levophed. Cardiology is following for bradycardia, hypotension and abnormal rhythm, he has ejection fraction of 15%. GI is considering to do PEG tube placement once stable cardiac renee. Patient is on hospice care at home but whenever he becomes sick family revoked hospice and bring to the hospital. Once stabilized will take him and keep him on hospice. Transfer to telemetry floor. 05/04/2020; bradycardia and hypotension resolved. Cardiology is following for CHF. Patient is on hospice care at home but whenever he becomes sick family revoked hospice and bring to the hospital. Once stabilized will take him and keep him on hospice. 05/05/2020; patient was agitated yesterday and was on restraints. Patient has hypernatremia. Will encourage free water intake. Nephrology and cardiology is following the patient. 05/06/2020; patient was agitated yesterday and was on restraints. Patient has hypernatremia. Will encourage free water intake. Nephrology and cardiology is following the patient. Patient is on home hospice and will be discharged back home with home hospice once stable. 05/07/2020 Patient to be discharged to home hospice if sodium normalizes 05/08/2020; patient had cardiac arrest, CODE BLUE was called, CPR per ACLS protocols, return of pulse Poor prognosis, discussed with patient's son the goals of care, he requested DNR status but to continue all the current management We will closely monitor the patient and adjust the management as needed Patient has poor prognosis multiple comorbidities, recommend hospice Critical care time 45 minutes History Interval history: I have seen and examined the patient at the bedside this morning Patient is on BiPAP, noncommunicative, spontaneous opening of eyes Blood pressures in the lower range, critically ill, in mild distress Vital signs noted Hospitalist Physical - Constitutional Vitals: Temp Pulse Resp BP Pulse Ox 98.9 F 64 28 H 83/38 95 05/08/20 07:31 05/08/20 10:20 05/08/20 10:26 05/08/20 10:26 05/08/20 10:20 General appearance: Present: mild distress, well-nourished - EENT Eyes: Present: PERRL, EOM intact - Neck Neck: Present: supple, normal ROM - Respiratory Respiratory effort: normal Respiratory: bilateral: diminished, negative: rales, rhonchi, wheezing - Cardiovascular Rhythm: regular Heart Sounds: Present: S1 & S2 - Extremities Extremities: no ischemia, No edema - Abdominal General gastrointestinal: soft, non-tender, non-distended, normal bowel sounds - Integumentary Integumentary: Present: clear, warm - Psychiatric Psychiatric: other (Confused noncommunicative) - Neurologic Neurologic: moves all extremities, other (Noncommunicative) HEART Score - HEART Score Troponin: Troponin T 0.081 ng/mL (0.00-0.029) H 04/10/20 20:04 Results - Labs CBC & Chem 7: 05/04/20 10:36 05/08/20 04:59 Labs: Laboratory Last Values WBC 2.8 K/mm3 (4.5-11.0) L 05/04/20 10:36 RBC 2.94 M/mm3 (3.65-5.03) L 05/04/20 10:36 Hgb 7.5 gm/dl (11.8-15.2) L 05/04/20 10:36 Hct 23.5 % (35.5-45.6) L 05/04/20 10:36 MCV 80 fl (84-94) L 05/04/20 10:36 MCH 25 pg (28-32) L 05/04/20 10:36 MCHC 32 % (32-34) 05/04/20 10:36 RDW 23.1 % (13.2-15.2) H 05/04/20 10:36 Plt Count 32 K/mm3 (140-440) L 05/04/20 10:36 Lymph % (Auto) 14.4 % (13.4-35.0) 05/03/20 04:31 Navarro % (Auto) 7.2 % (0.0-7.3) 05/03/20 04:31 Eos % (Auto) 1.0 % (0.0-4.3) 05/03/20 04:31 Baso % (Auto) 0.9 % (0.0-1.8) 05/03/20 04:31 Lymph # (Auto) 0.6 K/mm3 (1.2-5.4) L 05/03/20 04:31 Navarro # (Auto) 0.3 K/mm3 (0.0-0.8) 05/03/20 04:31 Eos # (Auto) 0.0 K/mm3 (0.0-0.4) 05/03/20 04:31 Baso # (Auto) 0.0 K/mm3 (0.0-0.1) 05/03/20 04:31 Add Manual Diff Complete 05/04/20 10:36 Total Counted 100 05/04/20 10:36 Seg Neutrophils % 76.5 % (40.0-70.0) H 05/03/20 04:31 Seg Neuts % (Manual) 83.0 % (40.0-70.0) H 05/04/20 10:36 Band Neutrophils % 0 % 04/26/20 10:13 Lymphocytes % (Manual) 15.0 % (13.4-35.0) 05/04/20 10:36 Reactive Lymphs % (Man) 0 % 04/26/20 10:13 Monocytes % (Manual) 2.0 % (0.0-7.3) 05/04/20 10:36 Eosinophils % (Manual) 0 % (0.0-4.3) 04/26/20 10:13 Basophils % (Manual) 1.0 % (0.0-1.8) 04/26/20 10:13 Metamyelocytes % 0 % 04/26/20 10:13 Myelocytes % 0 % 04/26/20 10:13 Promyelocytes % 0 % 04/26/20 10:13 Blast Cells % 0 % 04/26/20 10:13 Nucleated RBC % 2.0 % (0.0-0.9) H 05/04/20 10:36 Seg Neutrophils # 3.1 K/mm3 (1.8-7.7) 05/03/20 04:31 Seg Neutrophils # Man 2.3 K/mm3 (1.8-7.7) 05/04/20 10:36 Band Neutrophils # 0.0 K/mm3 05/04/20 10:36 Lymphocytes # (Manual) 0.4 K/mm3 (1.2-5.4) L 05/04/20 10:36 Abs React Lymphs (Man) 0.0 K/mm3 05/04/20 10:36 Monocytes # (Manual) 0.1 K/mm3 (0.0-0.8) 05/04/20 10:36 Eosinophils # (Manual) 0.0 K/mm3 (0.0-0.4) 05/04/20 10:36 Basophils # (Manual) 0.0 K/mm3 (0.0-0.1) 05/04/20 10:36 Metamyelocytes # 0.0 K/mm3 05/04/20 10:36 Myelocytes # 0.0 K/mm3 05/04/20 10:36 Promyelocytes # 0.0 K/mm3 05/04/20 10:36 Blast Cells # 0.0 K/mm3 05/04/20 10:36 WBC Morphology Not Reportable 05/04/20 10:36 Hypersegmented Neuts Not Reportable 05/04/20 10:36 Hyposegmented Neuts Not Reportable 05/04/20 10:36 Hypogranular Neuts Not Reportable 05/04/20 10:36 Smudge Cells Not Reportable 05/04/20 10:36 Toxic Granulation Not Reportable 05/04/20 10:36 Toxic Vacuolation Not Reportable 05/04/20 10:36 Dohle Bodies Not Reportable 05/04/20 10:36 Pelger-Huet Anomaly Not Reportable 05/04/20 10:36 Barby Rods Not Reportable 05/04/20 10:36 Platelet Estimate Appears decreased 05/04/20 10:36 Clumped Platelets Not Reportable 05/04/20 10:36 Plt Clumps, EDTA Not Reportable 05/04/20 10:36 Large Platelets Not Reportable 05/04/20 10:36 Giant Platelets Not Reportable 05/04/20 10:36 Platelet Satelliting Not Reportable 05/04/20 10:36 Plt Morphology Comment Not Reportable 05/04/20 10:36 RBC Morphology Not Reportable 05/04/20 10:36 Dimorphic RBCs Not Reportable 05/04/20 10:36 Polychromasia Not Reportable 05/04/20 10:36 Hypochromasia 1+ 05/04/20 10:36 Poikilocytosis 1+ 05/04/20 10:36 Anisocytosis 2+ 05/04/20 10:36 Microcytosis Not Reportable 05/04/20 10:36 Macrocytosis Not Reportable 05/04/20 10:36 Spherocytes Not Reportable 05/04/20 10:36 Pappenheimer Bodies Not Reportable 05/04/20 10:36 Sickle Cells Not Reportable 05/04/20 10:36 Target Cells Not Reportable 05/04/20 10:36 Tear Drop Cells Not Reportable 05/04/20 10:36 Ovalocytes Not Reportable 05/04/20 10:36 Helmet Cells Not Reportable 05/04/20 10:36 [place] Bodies Not Reportable 05/04/20 10:36 [place] Rings Not Reportable 05/04/20 10:36 [place] Cells 1+ 05/04/20 10:36 Bite Cells Not Reportable 05/04/20 10:36 Crenated Cell Not Reportable 05/04/20 10:36 Elliptocytes Not Reportable 05/04/20 10:36 Acanthocytes (Spur) Not Reportable 05/04/20 10:36 Rouleaux Not Reportable 05/04/20 10:36 Hemoglobin C Crystals Not Reportable 05/04/20 10:36 Schistocytes Rare 05/04/20 10:36 Malaria parasites Not Reportable 05/04/20 10:36 Willie Bodies Not Reportable 05/04/20 10:36 Hem Pathologist Commnt No 05/04/20 10:36 PT 17.4 Sec. (12.2-14.9) H 05/01/20 07:10 INR 1.43 (0.87-1.13) H 05/01/20 07:10 D-Dimer 1259.67 ng/mlDDU (0-234) H 04/25/20 16:09 Heparin Anti-Xa Level 0.35 U.I./ml (0.3-0.7) 04/13/20 05:06 Heparin Anti-Xa, Unfract Negative (Negative) 04/30/20 08:59 ABG pH 7.361 pH Units (7.350-7.450) 05/07/20 21:00 ABG pCO2 28.3 mm Hg 05/07/20 21:00 ABG pO2 104.9 mm Hg (80.0-90.0) H 05/07/20 21:00 ABG HCO3 15.7 mmol/L (20.0-26.0) L 05/07/20 21:00 ABG O2 Saturation 97.8 % (95.0-99.0) 05/07/20 21:00 ABG O2 Content 11.0 (0.0-44) 05/07/20 21:00 ABG Base Excess -8.7 mmol/L (-2.0-3.0) L 05/07/20 21:00 ABG Hemoglobin 8.1 gm/dl (14.0-18.0) L 05/07/20 21:00 ABG Carboxyhemoglobin 2.0 % (0.0-5.0) 05/07/20 21:00 ABG Methemoglobin 0.6 % (0.0-1.5) 05/07/20 21:00 Oxyhemoglobin 95.3 % (95.0-99.0) 05/07/20 21:00 FiO2 35 % 05/07/20 21:00 Sodium 147 mmol/L (137-145) H 05/08/20 04:59 Potassium 4.9 mmol/L (3.6-5.0) 05/08/20 04:59 Chloride 116.3 mmol/L (98-107) H 05/08/20 04:59 Carbon Dioxide 15 mmol/L (22-30) L 05/08/20 04:59 Anion Gap 21 mmol/L 05/08/20 04:59 BUN 60 mg/dL (9-20) H 05/08/20 04:59 Creatinine 2.6 mg/dL (0.8-1.3) H 05/08/20 04:59 Estimated GFR 24 ml/min 05/08/20 04:59 BUN/Creatinine Ratio 23 % 05/08/20 04:59 Glucose 164 mg/dL (75-100) H 05/08/20 04:59 POC Glucose 137 mg/dL (70-105) H 05/08/20 07:37 Lactic Acid 3.00 mmol/L (0.7-2.0) H* 04/12/20 06:22 Calcium 8.5 mg/dL (8.4-10.2) 05/08/20 04:59 Phosphorus 4.50 mg/dL (2.5-4.5) 05/06/20 07:00 Magnesium 2.40 mg/dL (1.7-2.3) H 04/10/20 22:50 Ferritin 135.1 ng/mL (30.0-300.0) 04/11/20 15:11 Total Bilirubin 2.30 mg/dL (0.1-1.2) H 05/03/20 04:31 Direct Bilirubin 0.6 mg/dL (0-0.2) H 04/15/20 04:56 Indirect Bilirubin 0.3 mg/dL 04/15/20 04:56 AST 19 units/L (5-40) 05/03/20 04:31 ALT 22 units/L (7-56) 05/03/20 04:31 Alkaline Phosphatase 73 units/L (35-129) 05/03/20 04:31 Lactate Dehydrogenase 210 units/L (91-180) H 04/28/20 11:10 Troponin T 0.081 ng/mL (0.00-0.029) H 04/10/20 20:04 C-Reactive Protein 5.60 mg/dL (0.00-1.30) H 04/10/20 20:51 NT-Pro-B Natriuret Pep 66133 pg/mL (0-900) H 04/28/20 11:10 Total Protein 5.2 g/dL (6.3-8.2) L 05/03/20 04:31 Albumin 2.4 g/dL (3.9-5) L 05/03/20 04:31 Albumin/Globulin Ratio 0.9 % 05/03/20 04:31 Triglycerides 113 mg/dL (2-149) 04/10/20 20:04 Cholesterol 178 mg/dL (50-199) 04/10/20 20:04 LDL Cholesterol Direct 123 mg/dL (50-130) 04/10/20 20:04 HDL Cholesterol 41 mg/dL (40-59) 04/10/20 20:04 Cholesterol/HDL Ratio 4.34 % 04/10/20 20:04 Serotonin Release Assay See scanned result 04/17/20 22:45 Procalcitonin 0.38 ng/mL (<0.15) 04/27/20 09:30 TSH 3.640 mlU/mL (0.270-4.200) 04/13/20 10:06 Urine Color Yellow (Yellow) 04/11/20 Unknown Urine Turbidity Clear (Clear) 04/11/20 Unknown Urine pH 5.0 (5.0-7.0) 04/11/20 Unknown Ur Specific [place] 1.009 (1.003-1.030) 04/11/20 Unknown Urine Protein <15 mg/dl mg/dL (Negative) 04/11/20 Unknown Urine Glucose (UA) Neg mg/dL (Negative) 04/11/20 Unknown Urine Ketones Neg mg/dL (Negative) 04/11/20 Unknown Urine Blood Neg (Negative) 04/11/20 Unknown Urine Nitrite Neg (Negative) 04/11/20 Unknown Urine Bilirubin Neg (Negative) 04/11/20 Unknown Urine Urobilinogen < 2.0 mg/dL (<2.0) 04/11/20 Unknown Ur Leukocyte Esterase Neg (Negative) 04/11/20 Unknown Urine WBC (Auto) 1.0 /HPF (0.0-6.0) 04/11/20 Unknown Urine RBC (Auto) 2.0 /HPF (0.0-6.0) 04/11/20 Unknown U Epithel Cells (Auto) < 1.0 /HPF (0-13.0) 04/11/20 Unknown Hyaline Casts 3 /LPF 04/11/20 Unknown Urine Mucus Few /HPF 04/11/20 Unknown Urine Eosinophils None seen (None Seen) 04/11/20 Unknown Urine Osmolality 528 Mosm/kg 05/03/20 15:50 Urine Creatinine 35.3 mg/dL (0.1-20.0) H 04/11/20 Unknown Urine Sodium 92 mmol/L 04/11/20 Unknown Heparin-induced Plt Ab Positive (Negative) H 04/30/20 08:59 UF Heparin High Dose 0 % Release 04/30/20 08:59 CHERYL UFH Low Dose 0.1 0 % Release 04/30/20 08:59 CHERYL UFH Low Dose 0.5 0 % Release 04/30/20 08:59 Coronavirus (PCR) Negative (Negative) 04/29/20 10:59 Hepatitis A IgM Ab Non-reactive (NonReactive) 04/12/20 20:23 Hep Bs Antigen Non-reactive (Negative) 04/12/20 20:23 Hep B Core IgM Ab Non-reactive (NonReactive) 04/12/20 20:23 Hepatitis C Antibody Non-reactive (NonReactive) 04/12/20 20:23 Blood Type AB POSITIVE 05/02/20 07:00 Antibody Screen Negative 05/02/20 07:00 Crossmatch See Detail 05/02/20 07:00 Gay/IV: Voiding Method Condom Catheter IV Catheter Type [Right Peripheral IV External Jugular] IV Catheter Type [Left Peripheral IV External Jugular] IV Catheter Type [Right Upper PICC Line arm] IV Catheter Type [Left Wrist] Peripheral IV IV Catheter Type [Right INT / Saline Lock Forearm] IV Catheter Type [Right Wrist] INT / Saline Lock Active Medications - Current Medications Current Medications: Generic Name Dose Route Start Last Admin Trade Name Freq PRN Reason Stop Dose Admin Acetaminophen 650 mg 04/11/20 01:26 04/23/20 23:13 Tylenol PO 650 mg Q6H PRN Administration Pain MILD(1-3)/Fever >100.5/MANCILLA Alprazolam 1 mg 05/04/20 18:53 Alprazolam 1 Mg Tab PO Q8H PRN Anxiety Lipase/Protease/Amylase 1 each 04/11/20 14:22 Pancremiley Saenz 10,500 Unit FEEDTUBE PRN PRN For Clogged Feeding Tube Arformoterol Tartrate 15 mcg 04/20/20 20:00 05/08/20 10:25 Brovana Nebu IH 15 mcg Q12HRT PRAVIN Administration Budesonide 0.5 mg 04/20/20 20:00 05/08/20 10:25 Pulmicort IH 0.5 mg Q12HRT PRAVIN Administration Potassium Chloride 20 meq/ 1,010 mls @ 75 mls/hr 05/04/20 16:30 05/08/20 07:02 Dextrose IV 50 mls/hr DIRECT PRAVIN Administration Dobutamine HCl/Dextrose 500 mg in 250 mls @ 9.36 mls/hr 05/07/20 22:00 05/07/20 20:30 Dobutrex Drip 500mg/D5w 250ml IV 5 mcg/kg/min DIRECT PRAVIN 9.36 mls/hr Administration Protocol 5 MCG/KG/MIN Insulin Human Lispro 0 unit 04/16/20 16:30 05/08/20 08:08 Humalog SUB-Q Not Given ACHS PRAVIN Protocol Magnesium Hydroxide 30 ml 04/11/20 01:26 Milk Of Magnesia PO Q4H PRN Constipation Midodrine 10 mg 05/01/20 16:00 05/07/20 18:11 Proamatine PO 10 mg TID@0800,1200,1600 PRAVIN Administration Ondansetron HCl 4 mg 04/25/20 04:53 04/25/20 05:25 Zofran IV 4 mg Q8H PRN Administration Nausea And Vomiting Simple Syrup 15 ml 04/11/20 14:22 Simple Syrup FEEDTUBE PRN PRN Hypoglycemia Simple Syrup 30 ml 04/11/20 14:22 Simple Syrup FEEDTUBE PRN PRN Hypoglycemia Sodium Bicarbonate 325 mg 04/11/20 14:22 Sodium Bicarbonate FEEDTUBE PRN PRN For Clogged Feeding Tube Sodium Chloride 10 ml 04/11/20 10:00 05/07/20 21:24 Sodium Chloride Flush Syringe 10 Ml IV 10 ml BID PRAVIN Administration Sodium Chloride 10 ml 04/11/20 01:26 Sodium Chloride Flush Syringe 10 Ml IV PRN PRN LINE FLUSH Nutrition/Malnutrition Assess - Dietary Evaluation Nutrition/Malnutrition Findings: Nutrition Notes Start: 04/11/20 13:41 Freq: Status: Active Protocol: Document 05/05/20 13:07 AT (Rec: 05/05/20 13:14 AT [id number]) Co-Sign 05/05/20 13:07 LP Nutrition Notes Initial or Follow up Reassessment Current Diagnosis Acute Kidney Injury,CKD(stage I-IV),COPD,Coronary Artery Disease,Diabetes,Hypertension, Heart Failure Other Pertinent Diagnosis [place], Crohn's disease, seizure, colitis Current Diet Full Liquid Labs/Tests Na 152 BUN 49 Cr 2.4 Pertinent Medications Humalog KCl 20 mEq Height 5 ft 7 in Weight 62.4 kg [place] Body Weight (kg) 67.27 BMI 21.5 Weight Status Appropriate Subjective/Other Information Follow up for diet advancement , ONS tolerance. Visited pt at bedside twice, pt did not arouse. Observed full beverages and other liquids pilling up in room. Burn Absent Trauma Absent Difficulty In Swallowing,Chewing Current % PO Poor (25-49%) Minimum of two criteria No Energy Intake (severe) < or equal to 50% Estimated Energy Requirement > or equal to 5 days #1 Nutrition Diagnosis Inadequate oral intake Diagnosis Progress(for reassessment Continues documentation) Is patient on ventilator? No Is Patient Ambulatory and/or Out of Bed No REE-([facility]-confined to bed) 8585.325 Calculation Used for Recommendations [facility] Additional Notes PRO needs: 62-75g (1-1.2 g/kg) Fluid needs: 1 mL/kcal Nutrition Intervention Change Diet Order: Advance diet as medically advised Add Supplement/Snack (indicate name/kcal Glucerna TID /protein ) Provides kCal: 660 Provides Protein (gm) 30 Goal #1 Meet at least 75% of energy and protein needs via PO and ONS Anticipated Discharge Needs: Unable to determine at this time Follow-Up By: 05/10/20 Additional Comments F/U for change in POC
--- NOTE | 2020-05-08 14:24 | Event Note ---
Date: 05/08/20 [facility] [place] called. I presented to the bedside. The patient was found to be in asystolic arrest. Patient treated" with ACLS protocol with return of perfusing cardiac rhythm. 60 minutes critical care time dedicated to patient care. Patient found to have poor prognosis. Advanced care planning conducted. Patient son Haseeb Mrianda was notified and informed of patient prognosis. Patient son elects to make patient DNR and initiate comfort care measures. Prognosis discussed, care plan discussed, patient son acknowledges understanding and agreement with care plan, +30 minutes.
[2020-05-08] MEDS ORDERED: DEXTROSE 5% IN WATER 1,000 ML IV SCH (15:00)
[2020-05-08] MEDS: MIDODRINE 5 MG TAB PO SCH ×3 (15:10→17:05)
--- NOTE | 2020-05-08 19:09 | Event Note ---
Date: 05/08/20 Patient had cardiac arrest this afternoon, received CPR per ACLS protocol With return of pulse, however patient has very poor prognosis, discussed with patient's son About patient's critical condition, goals of care, poor prognosis , after much discussions patient's son requested DNR status however wants to continue all the current treatment. We will closely monitor the patient and adjust the management as needed DNR status at this point, very poor prognosis. Recommend hospice
[2020-05-09 05:35] LABS: Calcium 8.3 mg/dL (8.4-10.2)
[2020-05-09] MEDS: ARFORMOTEROL 15 MCG/2 ML NEBU IH SCH ×2 (06:25→08:44)
[2020-05-09] MEDS: BUDESONIDE 0.5 MG/2 ML NEBU IH SCH ×2 (06:25→08:44)
[2020-05-09 08:17] VITALS: BP 86/44
--- NOTE | 2020-05-09 08:38 | Progress Note ---
Assessment and Plan 1. Acute kidney injury: Vasomotor KIRT superimposed on CKD. CT abdomen negative for hydro. Monitor renal function. Creatinine level 2.6 from 2.4. Renal prognosis is guarded. Avoid nephrotoxic agents. Meds dosage based on GFR. 2. FEN: Hypernatremia, improved, monitor. Hyperkalemia, on IV D5W, monitor. Hyperchloremic metabolic acidosis, monitor. Monitor lytes and volume status. 3. Acute hypoxic respiratory failure: On BIPAP. Possibly secondary to the CHF and underlying pneumonia. COVID-19 test negative. 4. Hypotension: Monitor BP. 5. Bradycardia: Followed by Cards. 6. Chronic CHF: Monitor daily weight, intake and outputs. Followed by Cards. 7. Anemia, POA: Monitor. 8. Elevated Transaminases: Improved. 9. DM type 2. Overall prognosis is slim / poor. Subjective: Patient was seen and examined at the bedside. Examination: General appearance: well-developed, appears stated age, resp distress noted, on BIPAP HEENT: ATNC Neck: trachea midline Respiratory: coarse breath sounds Heart: S1S2, no murmur Gastrointestinal: soft, normoactive bowel sounds, not tender Integumentary: no rash, warm and dry Neurologic: stuporous, non-verbal Ext: no edema Subjective Date of service: 05/09/20 Principal diagnosis: CHF exacerbation, KIRT Objective - Vital Signs Vital signs: Vital Signs - 12hr 05/08/20 05/09/20 05/09/20 20:47 00:32 00:41 Pulse Rate 67 61 Pulse Rate [ 70 Right Throughout] Respiratory 37 H 34 H Rate Respiratory 36 H Rate [Right Throughout] Blood Pressure 111/80 Blood Pressure [Left] O2 Sat by Pulse 90 79 L Oximetry 05/09/20 05/09/20 05/09/20 01:35 04:05 04:25 Pulse Rate 76 63 63 Pulse Rate [ Right Throughout] Respiratory 39 H 34 H 36 H Rate Respiratory Rate [Right Throughout] Blood Pressure 89/47 89/47 Blood Pressure 61/32 [Left] O2 Sat by Pulse 96 71 L 71 L Oximetry 05/09/20 05/09/20 05/09/20 06:29 06:30 08:17 Pulse Rate 76 63 Pulse Rate [ 74 Right Throughout] Respiratory 45 H Rate Respiratory 45 H Rate [Right Throughout] Blood Pressure 73/30 Blood Pressure [Left] O2 Sat by Pulse 82 L 85 Oximetry - Lab 05/04/20 10:36 05/09/20 04:47 Most recent lab results ABG pH 7.361 pH Units (7.350-7.450) 05/07/20 21:00 ABG pCO2 28.3 mm Hg 05/07/20 21:00 ABG pO2 104.9 mm Hg (80.0-90.0) H 05/07/20 21:00 ABG HCO3 15.7 mmol/L (20.0-26.0) L 05/07/20 21:00 ABG O2 Saturation 97.8 % (95.0-99.0) 05/07/20 21:00 Calcium 8.3 mg/dL (8.4-10.2) L 05/09/20 04:47 Phosphorus 4.50 mg/dL (2.5-4.5) 05/06/20 07:00 Magnesium 2.40 mg/dL (1.7-2.3) H 04/10/20 22:50 Urine Creatinine 35.3 mg/dL (0.1-20.0) H 04/11/20 Unknown Urine Sodium 92 mmol/L 04/11/20 Unknown Medications & Allergies - Medications Allergies/Adverse Reactions: Allergies Sulfa (Sulfonamide Antibiotics) Allergy (Verified 07/30/18 17:44) Rash Home Medications: Home Medications Medication Instructions Recorded Confirmed Last Taken Type Gabapentin 300 mg PO BID 09/19/16 04/21/20 09/18/16 History 300 mg Metformin HCl [metFORMIN ER 500 mg PO BIDWM 03/28/17 04/21/20 Unknown History Gastric] AtorvaSTATin 10 mg PO QHS #30 tablet 12/21/17 04/21/20 Unknown Rx Ranolazine ER [Ranexa ER] 500 mg PO BID #60 tablet 12/21/17 04/21/20 Unknown Rx Aspirin 325 mg PO QDAY #30 tablet 01/12/18 04/21/20 04/21/20 Rx Diphenoxylate/Atropine [Lomotil] 1 tab PO Q8H PRN 01/15/18 04/21/20 Unknown History Insulin Lispro [HumaLOG VIAL] See Protocol SQ ACHS 01/15/18 04/21/20 04/21/20 18:46 History Promethazine [Phenergan] 25 mg PO Q4H PRN 01/15/18 04/21/20 Unknown History Albuterol Mdi (or & Nicu Only) 2 puff IH Q4HR PRN #1 inhalation 12/21/18 04/21/20 04/21/20 18:46 Rx [ProAir HFA Inhaler] Furosemide [Lasix TAB] 20 mg PO QDAY #30 tablet 02/03/20 04/21/20 Unknown Rx Metoprolol Xl [Metoprolol 25 mg PO DAILY #60 tablet 02/03/20 04/21/20 04/21/20 18:45 Rx SUCCINATE ER TAB] levETIRAcetam [Keppra TAB] 500 mg PO BID #120 tablet 02/03/20 04/21/20 Unknown Rx levoFLOXacin [Levaquin TAB] 500 mg PO QDAY #5 tablet 02/03/20 04/21/20 Unknown Rx Active Medications: Generic Name Dose Route Start Last Admin Trade Name Freq PRN Reason Stop Dose Admin Acetaminophen 650 mg 04/11/20 01:26 04/23/20 23:13 Tylenol PO 650 mg Q6H PRN Administration Pain MILD(1-3)/Fever >100.5/MANCILLA Alprazolam 1 mg 05/04/20 18:53 Alprazolam 1 Mg Tab PO Q8H PRN Anxiety Lipase/Protease/Amylase 1 each 04/11/20 14:[address] 10,500 Unit FEEDTUBE PRN PRN For Clogged Feeding Tube Arformoterol Tartrate 15 mcg 04/20/20 20:00 05/09/20 06:25 Brovana Nebu IH 15 mcg Q12HRT PRAVIN Administration Budesonide 0.5 mg 04/20/20 20:00 05/09/20 06:25 Pulmicort IH 0.5 mg Q12HRT PRAVIN Administration Dextrose 1,000 mls @ 50 mls/hr 05/08/20 15:00 05/08/20 15:11 D5w IV 50 mls/hr DIRECT PRAVIN Administration Insulin Human Lispro 0 unit 04/16/20 16:30 05/08/20 22:08 Humalog SUB-Q Not Given ACHS PRAVIN Protocol Magnesium Hydroxide 30 ml 04/11/20 01:26 Milk Of Magnesia PO Q4H PRN Constipation Midodrine 10 mg 05/01/20 16:00 05/08/20 17:05 Proamatine PO Not Given TID@0800,1200,1600 [facility] Ondansetron HCl 4 mg 04/25/20 04:53 04/25/20 05:25 Zofran IV 4 mg Q8H PRN Administration Nausea And Vomiting Simple Syrup 15 ml 04/11/20 14:22 Simple Syrup FEEDTUBE PRN PRN Hypoglycemia Simple Syrup 30 ml 04/11/20 14:22 Simple Syrup FEEDTUBE PRN PRN Hypoglycemia Sodium Bicarbonate 325 mg 04/11/20 14:22 Sodium Bicarbonate FEEDTUBE PRN PRN For Clogged Feeding Tube Sodium Chloride 10 ml 04/11/20 10:00 05/08/20 22:08 Sodium Chloride Flush Syringe 10 Ml IV Not Given BID PRAVIN Sodium Chloride 10 ml 04/11/20 01:26 Sodium Chloride Flush Syringe 10 Ml IV PRN PRN LINE FLUSH
--- NOTE | 2020-05-09 10:47 | Event Note ---
Date: 05/09/20 The nurse reported that patient does not have cardiopulmonary activity, straight-line on the monitor, Patient is DNR status When I evaluated the patient patient is unresponsive, pupils dilated and fixed, blood pressures and pulse could not be recorded No cardiopulmonary activity. Pronounced . Time of 1024 on 05/09/2020
--- NOTE | 2020-05-09 10:48 | Death Summary ---
Summary - Providers Date of service: 05/09/20 Consults: 04/11/20 01:27 Consult to Dietitian/Nutrition [CONS] Routine Physician Instructions: Reason For Exam: Reason for Consult: Diet education Consult to Physician [CONS] Routine Comment: Consulting Provider: VU BUTCHER Physician Instructions: Reason For Exam: RESP. FAILURE, R/O COVID 04/11/20 01:43 Consult to Physician [CONS] Routine Comment: Consulting Provider: BRYAN KERNS Physician Instructions: Reason For Exam: KIRT , HYPERKALEMIA 04/11/20 05:06 Consult to Physician [CONS] Routine Comment: Consulting Provider: BRYANT MACHADO Physician Instructions: Reason For Exam: COLITIS, Elevated liver enzymes. 04/11/20 08:00 Speech Therapy Evaluation and Treat [CONS] Routine Reason For Exam: failed swallow screen 04/11/20 13:15 Consult to Dietitian/Nutrition [CONS] Stat Physician Instructions: Reason For Exam: Reason for Consult: Write/Manage Tube Feeding 04/11/20 16:23 Physical Therapy Evaluation and Treat [CONS] Routine Comment: Reason For Exam: Debility with multiple falls in the home 04/11/20 16:25 Occupational Therapy Evaluate and Treat [CONS] Routine Comment: Reason For Exam: Debility 04/25/20 16:21 Consult to PICC Line RN [CONS] Stat Reason For Exam: For pressors Type Line:: PICC 04/26/20 08:19 Consult to Physician [CONS] Routine Comment: Consulting Provider: LAWANDA PERES Physician Instructions: Reason For Exam: Possible septic shock 04/26/20 10:04 Consult to Physician [CONS] Routine Comment: Consulting Provider: LAWANDA PERES Physician Instructions: Reason For Exam: critical care management 04/27/20 12:43 Speech Therapy Evaluation and Treat [CONS] Routine Reason For Exam: Reevaluate difficulty swallowing 04/27/20 17:11 Consult to Physician [CONS] Routine Comment: Consulting Provider: ESPERANZA ECHOLS Physician Instructions: Reason For Exam: PEG placement 04/28/20 08:20 Consult to Dietitian/Nutrition [CONS] Routine Physician Instructions: Reason For Exam: Reason for Consult: Write/Manage Tube Feeding 04/28/20 10:36 Consult to Physician [CONS] Routine Comment: Consulting Provider: KALEN ASHLEY Physician Instructions: Reason For Exam: Thrombocytopenia 04/28/20 10:50 Consult to Physician [CONS] Routine Comment: Consulting Provider: LAWANDA PERES Physician Instructions: Reason For Exam: Left pleural effusion 04/30/20 07:56 Speech Therapy Evaluation and Treat [CONS] Urgent Reason For Exam: please eval coughing with thicken liquids 05/04/20 12:43 Physical Therapy Evaluation and Treat [CONS] Routine Comment: Reason For Exam: CHF Attending: CED SALINAS - summary Date of admission: 04/11/20 12:59 Date of : 05/09/20 (10:24)
--- NOTE | 2020-05-09 11:36 | Event Note ---
Date: 05/09/20
== END 2020-05-09 16:17 | DRG 682 ==
LOC: ED 19:26 → IMCU 04-11 00:03 → OBSVTOIN 04-11 12:59 → 4A 04-12 17:29 → CC1 04-26 02:07 → 4A 04-28 07:20 → IMCU 04-30 11:15 → CC1 04-30 17:54 → 4A 05-03 18:40
PROVIDERS: ADMIT Internal Medicine Geriatric Medicine; ATTEND Internal Medicine
PROC: 5A09357 Assistance with Respiratory Ventilation, Less than 24 Consecutive Hours, Continuous Positive Airway Pressure (ICD-10-PCS; 2020-04-11)
PROC: 3E0234Z Introduction of Serum, Toxoid and Vaccine into Muscle, Percutaneous Approach (ICD-10-PCS; 2020-04-11)
PROC: 5A09357 Assistance with Respiratory Ventilation, Less than 24 Consecutive Hours, Continuous Positive Airway Pressure (ICD-10-PCS; 2020-04-13)
PROC: 02HV33Z Insertion of Infusion Device into Superior Vena Cava, Percutaneous Approach (ICD-10-PCS; 2020-04-26)
PROC: 4A033R1 Measurement of Arterial Saturation, Peripheral, Percutaneous Approach (ICD-10-PCS; 2020-04-29)
PROC: 30233N1 Transfusion of Nonautologous Red Blood Cells into Peripheral Vein, Percutaneous Approach (ICD-10-PCS; principal; 2020-05-02)
PROC: 0W9B3ZZ Drainage of Left Pleural Cavity, Percutaneous Approach (ICD-10-PCS; 2020-05-04)
PROC: 5A09457 Assistance with Respiratory Ventilation, 24-96 Consecutive Hours, Continuous Positive Airway Pressure (ICD-10-PCS; 2020-05-07)
PROC: 5A12012 Performance of Cardiac Output, Single, Manual (ICD-10-PCS; 2020-05-08)
DX: N17.0 Acute kidney failure with tubular necrosis (principal); I50.23 Acute on chronic systolic (congestive) heart failure; J96.01 Acute respiratory failure with hypoxia; J44.1 Chronic obstructive pulmonary disease with (acute) exacerbation; K50.90 Crohn's disease, unspecified, without complications; I13.0 Hypertensive heart and chronic kidney disease with heart failure and stage 1 through stage 4 chronic kidney disease, or unspecified chronic kidney disease; M48.54XA Collapsed vertebra, not elsewhere classified, thoracic region, initial encounter for fracture; E87.2 Acidosis; E87.0 Hyperosmolality and hypernatremia; E87.5 Hyperkalemia; E11.22 Type 2 diabetes mellitus with diabetic chronic kidney disease; E78.5 Hyperlipidemia, unspecified; N18.9 Chronic kidney disease, unspecified; F17.200 Nicotine dependence, unspecified, uncomplicated; Z51.5 Encounter for palliative care; I25.10 Atherosclerotic heart disease of native coronary artery without angina pectoris; M19.90 Unspecified osteoarthritis, unspecified site; I71.9 Aortic aneurysm of unspecified site, without rupture; Z20.828 Contact with and (suspected) exposure to other viral communicable diseases; D69.6 Thrombocytopenia, unspecified; E87.6 Hypokalemia; I46.9 Cardiac arrest, cause unspecified; Z66 Do not resuscitate; D64.9 Anemia, unspecified; K52.9 Noninfective gastroenteritis and colitis, unspecified; Z79.4 Long term (current) use of insulin; Z79.82 Long term (current) use of aspirin; Z79.899 Other long term (current) drug therapy; Z88.2 Allergy status to sulfonamides; R57.0 Cardiogenic shock; Z98.61 Coronary angioplasty status; I48.0 Paroxysmal atrial fibrillation; I95.9 Hypotension, unspecified; R00.1 Bradycardia, unspecified; Z23 Encounter for immunization
CPT/HCPCS: 32555; 36415; 36600; 71045; 71250; 72146; 72148; 74018; 74176; 74230; 76700; 78580; 80048; 80053; 80061; 80074; 80076; 81001; 82140; 82570; 82728; 82803; 82947; 82962; 83615; 83735; 83880; 83935; 84100; 84132; 84145; 84160; 84300; 84443; 84484; 85007; 85014; 85018; 85025; 85049; 85379; 85520; 85610; 86022; 86140; 86850; 86900; 86901; 86920; 87040; 87116; 87641; 89050; 90732; 93005; 93970; 94640; 94644; 94660; 94760; 96365; 96375; G0378; A9540; J0171; J0282; J0461; J0610; J0692; J1160; J1205; J1250; J1644; J1815; J1940; J2060; J2270; J2405; J2543; J2920; J2930; J3370; J3480; J7030; J7040; J7060; J7070; J7120; P9016; P9047; U0003